=== PATIENT | male | born 1935 | race Caucasian/White ===

== ENCOUNTER 2022-01-15 16:07 | Emergency (ER) | payer MEDICARE, SELFPAY ==
--- NOTE | 2022-01-15 16:09 | ED.WOUNDLAC ---
HPI - Wound/Laceration General Chief Complaint: Wound/Laceration Stated Complaint: RED SPOT ON ARM Time Seen by Provider: 01/15/22 16:09 Source: patient Mode of arrival: ambulatory Limitations: no limitations History of Present Illness HPI narrative: Mr. Davila is a an 86-year-old male patient presenting to the clinic today with complaints of a wound to his left forearm. Patient he cut it on a door frame. Has redness surrounding the wound. Non-tender. Tetanus unk. Related Data Home Medications Medication Instructions Recorded Confirmed aspirin 81 mg tablet,delayed 81 mg PO DAILY 12/12/21 01/15/22 release atorvastatin 20 mg tablet 20 mg PO DAILY 12/12/21 01/15/22 doxazosin 2 mg tablet 2 mg PO DAILY 12/12/21 01/15/22 losartan 50 mg tablet 50 mg PO DAILY 12/12/21 01/15/22 Allergies Allergy/AdvReac Type Severity Reaction Status Date / Time No Known Allergies Allergy Verified 01/15/22 16:17 Review of Systems Review of Systems: Pertinent positives per HPI. Patient denies any fever, chills, rash, headache, visual changes, dizziness, cough, runny nose, sore throat, shortness of breath, chest pain, palpitations, nausea, vomiting, diarrhea, constipation, abdominal pain, or any urinary issues. PMFSH Past Medical History Medical History Anxiety Atrial fibrillation Constipation COPD (chronic obstructive pulmonary disease) Dementia Dizziness Encounter to establish care Fatigue Hyperlipidemia Hypertension Nocturia Seasonal allergies Weakness Surgical History Surgical History Hx of cholecystectomy Social History Social History Smoking status: Former smoker Alcohol intake: current Substance use: never Comments At the time of my signature, I reviewed and agree with the nursing past medical, surgical, social, and family history. There is no relevant family history pertinent to the patient complaint. Exam Narrative: General: Well-developed, well nourished, in no apparent distress Head: Normocephalic, atraumatic. Cardio: Regular rate and rhythm, s1 and s2 normal, no murmur appreciated. Resp: Clear to auscultation bilaterally, no rhonchi, rales, wheezing or rubs. Integumentary: [place], warm, and dry, names a skin tear to the left dorsal forearm with approximately 2 cm surrounding mild redness without induration. No erythema or drainage noted. Course Course Emergency Course: Portions of this record may have been created with voice recognition software. Level of Care: Express Care Visit Vital Signs Vital signs: Vital signs reviewed MDM - Wound/Laceration MDM Narrative Medical decision making narrative: At the time of visit patient is resting comfortably on the exam table. Has small dime size skin tear to the left lower forearm without induration, mild redness, no swelling or purulent discharge. I will give a prescription of mupirocin ointment to apply to prevent secondary infection. Tetanus shot was updated in the clinic. Supportive measures were discussed with the patient he voiced understanding of discharge instructions and agrees to treatment plan. Differential Diagnosis Differential diagnosis: Likely avulsion of skin and other (Skin tear, skin infection, wound infection) Discharge Plan Discharge Clinical Impression: Skin tear of forearm without complication Patient Disposition: Home, Self-Care Condition: Stable Instructions: Antibiotic Form, Mupirocin (On the skin), Skin Tear (ED) Additional Instructions: Discussed patient's elevated blood pressure at the time of visit and recommend follow-up with primary care physician to have this reevaluated within the next week if symptoms persist. Apply mupirocin as prescribed. Keep area clean and dry Tdap given in the clinic today Tylenol as nee
[2022-01-15 16:18] VITALS: BP 189/96; PULSE 62; RESP 16; TEMP 37.1; O2SAT 97
[2022-01-15] MEDS: TETANUS,DIPHTHERIA,AC PERTUSSIS ADULT (0.5 ML) BOOSTRIX IM (16:27)
[2022-01-15 16:43] VITALS: BP 195/87
== END 2022-01-15 16:43 | disposition home or self-care (01) ==
PROVIDERS: Emergency Provider Nurse Practitioner Family; PCP Nurse Practitioner Family
DX: S51.812A Laceration without foreign body of left forearm, initial encounter (principal); W45.8XXA Other foreign body or object entering through skin, initial encounter; Z23 Encounter for immunization; I48.91 Unspecified atrial fibrillation; J44.9 Chronic obstructive pulmonary disease, unspecified; F03.90 Unspecified dementia, unspecified severity, without behavioral disturbance, psychotic disturbance, mood disturbance, and anxiety; E78.5 Hyperlipidemia, unspecified; I10 Essential (primary) hypertension; Z87.891 Personal history of nicotine dependence; Z79.82 Long term (current) use of aspirin
CPT/HCPCS: 90471; 90715; 99213; G0463

== ENCOUNTER 2022-02-16 08:17 | Emergency (ER) | payer MEDICARE, SELFPAY ==
--- NOTE | 2022-02-16 08:28 | ED.SKABFB ---
HPI - Skin/Abscess/Foreign Bdy General Chief complaint: Wound/Laceration Stated complaint: L HAND INJURY Time Seen by Provider: 02/16/22 08:28 Source: patient, family and RN notes reviewed History of Present Illness HPI narrative: Patient is an 86-year-old male who presents the urgent care with his daughter with complaints of left hand swelling due to skin tears. Patient states that on Sunday he scraped it on a bench in his garage and the hand is became more painful with redness, swelling and fever. Patient does not believe in medications and has not taken anything [id number] for his redness, swelling or fevers. Patient is alert and oriented. Reports of some nausea but denies of any vomiting. Denies any chest pain. Patient is visibly chilled but otherwise no acute distress noted. Patient and daughter aware of the plan of care. Some parts of this dictation were generated by voice recognition software and may contain typographical and/or grammatical inaccuracies. Related Data Home Medications Medication Instructions Recorded Confirmed aspirin 81 mg tablet,delayed 81 mg PO DAILY 12/12/21 01/15/22 release losartan 50 mg tablet 50 mg PO DAILY 12/12/21 01/15/22 Allergies Allergy/AdvReac Type Severity Reaction Status Date / Time No Known Allergies Allergy Verified 01/15/22 16:17 Review of Systems Review of Systems: CONSTITUTIONAL: Denies fever, chills, or sweats. EYES: Denies visual changes, redness, or discharge. ENT: Denies rhinorrhea, congestion, sore throat, or otalgia. CARDIOVASCULAR: Denies chest pain, palpitations, or edema. RESPIRATORY: Denies cough or dyspnea. GASTROINTESTINAL: Denies abdominal pain, nausea, vomiting, or diarrhea. GENITOURINARY: Denies dysuria or hematuria. SKIN: Reports of skin tears to the top of the left hand with redness and swelling MUSCULOSKELETAL: Denies back pain, joint pain, or myalgia. NEUROLOGIC: Denies headache, numbness, or weakness. All other systems reviewed are negative, except as documented in HPI. [facility] [place] Past Medical History Medical History Anxiety Atrial fibrillation Constipation COPD (chronic obstructive pulmonary disease) Dementia Dizziness Encounter to establish care Fatigue Hyperlipidemia Hypertension Nocturia Seasonal allergies Weakness Surgical History Surgical History Hx of cholecystectomy Social History Social History Smoking status: Former smoker Alcohol intake: current Substance use: never Comments At the time of my signature, I reviewed and agree with the nursing past medical, surgical, social, and family history. There is no relevant family history pertinent to the patient complaint. Exam Narrative: GENERAL: This is a well-nourished, well-developed patient. Chilled HEAD: normocephalic, atraumatic. EYES: PERRL. Sclera clear/white. Vision is grossly intact. EARS: External ears normal NOSE: External nose normal with no obvious nasal discharge, nares without redness, no rhinorrhea. THROAT: Mucous membranes moist NECK: Neck supple SKIN: 1 x 2 cm skin tears to the dorsal aspect of the left hand with surrounding edema and erythema NEURO: awake, alert, and oriented to person, place and time. There were no obvious focal neurologic abnormalities. EXTREMITIES: Moderate edema and erythema to the knuckles of the left hand as well as the dorsal aspect with moderate tenderness. Range of motion to left upper extremity limited due to pain. Positive strong left radial pulse with capillary refill less than 2 seconds. Course Course Level of Care: Express Care Visit Vital Signs Vital signs: Vital Signs Temperature 99.6 F 02/16/22 08:31 Pulse Rate 79 02/16/22 08:31 Respiratory Rate 16 02/16/22 08:31 Blood Pressure 151/107 H 02/16/22 08:31 Pulse
[2022-02-16 08:31] VITALS: BP 151/107; PULSE 79; RESP 16; TEMP 37.6; O2SAT 97
== END 2022-02-16 09:25 | disposition short-term general hospital (02) ==
PROVIDERS: Emergency Provider Nurse Practitioner Family; PCP Nurse Practitioner Family
DX: L03.114 Cellulitis of left upper limb (principal); Z87.81 Personal history of (healed) traumatic fracture; Z87.891 Personal history of nicotine dependence; I48.91 Unspecified atrial fibrillation; J44.9 Chronic obstructive pulmonary disease, unspecified; E78.5 Hyperlipidemia, unspecified; I10 Essential (primary) hypertension; F03.90 Unspecified dementia, unspecified severity, without behavioral disturbance, psychotic disturbance, mood disturbance, and anxiety; Z79.82 Long term (current) use of aspirin
CPT/HCPCS: 99212; G0463

== ENCOUNTER 2022-02-16 09:44 | Emergency (ER) | payer MEDICARE, SELFPAY ==
[2022-02-16] VITALS (34 sets, daily range): BP systolic 144–192; BP diastolic 63–172; PULSE 69–100; RESP 15–34; TEMP 36.7–37.4; O2SAT 92–99
--- NOTE | ~2022-02-16 | XR_ITS ---
XR hand LT min 3V 02/16/2022 12:35 Indication: Left hand edema. Erythema. Possible cellulitis. Procedure: 4 views left hand Comparison: No prior studies for comparison. 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 Normal mineralization. 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 No acute fracture, subluxation or dislocation. No focal soft t issue abnormality. No foreign bodies. Impression: 1: No acute bone or joint abnormality. 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 Reviewed, dictated and finalized at location B. Impression: 1: No acute bone or joint abnormality. 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
--- NOTE | 2022-02-16 12:01 | ED.EXTPRO ---
HPI - Extremity Problem General Chief complaint: Extremity Problem,Nontraumatic <Kimberli Robb PA-C - Last Filed: 02/16/22 14:35> Stated complaint: L. hand cellulitis <BALAJI Baker Last Filed: 02/16/22 14:35> Time Seen by Provider: 02/16/22 11:09 <BALAJI Baker Last Filed: 02/16/22 14:35> Source: patient and family <Kimberli Robb PA-C - Last Filed: 02/16/22 14:35> Mode of arrival: ambulatory <BALAJI Baker Last Filed: 02/16/22 14:35> Limitations: no limitations <Kimberli Robb PA-C - Last Filed: 02/16/22 14:35> History of Present Illness HPI Narrative: This is a 86-year-old male that presents to the emergency department for left hand redness and swelling noted since last night. Reports he cut his hand 2 days ago while working in his garage. He did not want to come in to be evaluated. His daughter helped him clean the wound and bandage it. Last night they noticed that his hand started to become red and swollen. Denies fevers. <BALAJI Baker Last Filed: 02/16/22 14:35> Related Data Home medications: Home Medications Medication Instructions Recorded Confirmed aspirin 81 mg tablet,delayed 81 mg PO DAILY 12/12/21 01/15/22 release losartan 50 mg tablet 50 mg PO DAILY 12/12/21 01/15/22 <BALAJI Baker Last Filed: 02/16/22 14:35> Allergies/Adverse reactions: Allergies Allergy/AdvReac Type Severity Reaction Status Date / Time No Known Allergies Allergy Verified 02/16/22 11:28 <BALAJI Baker Last Filed: 02/16/22 14:35> Review of Systems Review of Systems: CONSTITUTIONAL: Denies fever NEUROLOGIC: Denies numbness <BALAJI Baker Last Filed: 02/16/22 14:35> All systems reviewed & are unremarkable except as noted in HPI and below <Kimberli Robb PA-C - Last Filed: 02/16/22 14:35> [facility] Past Medical History Medical History: Medical History Anxiety Atrial fibrillation Constipation COPD (chronic obstructive pulmonary disease) Dementia Dizziness Encounter to establish care Fatigue Hyperlipidemia Hypertension Nocturia Seasonal allergies Weakness <Kimberli Robb PA-C - Last Filed: 02/16/22 14:35> Surgical History Surgical History: Surgical History Hx of cholecystectomy <Kimberli Robb PA-C - Last Filed: 02/16/22 14:35> Social History Social History: Social History Smoking status: Former smoker Alcohol intake: current Substance use: never <Kimberli Robb PA-C - Last Filed: 02/16/22 14:35> Exam Narrative: GENERAL: Well-appearing, well-nourished, and in no acute distress. HEAD: Normocephalic, atraumatic. EYES: EOMI. EXTREMITIES: Normal range of motion. Mild edema about the left hand dorsal surface with overlying redness. Normal radial pulse. Normal sensation. No lymphangitic streaking SKIN: Warm, dry, no rash. NEURO: No focal deficits. Alert and oriented x3. PSYCH: Normal mood and affect <Kimberli Robb PA-C - Last Filed: 02/16/22 14:35> Course COUNTER SALES REPRESENTATIVE/PA Physician Supervision For this patient encounter, I reviewed the COUNTER SALES REPRESENTATIVE or PA documentation, treatment plan, and medical decision making <Rishi Coy MD - Last Filed: 02/16/22 17:26> Vital Signs Vital signs: Vital Signs Temperature 99.4 F 02/16/22 09:59 Pulse Rate 92 02/16/22 09:59 Respiratory Rate 18 02/16/22 09:59 Blood Pressure 186/64 H 02/16/22 09:59 Pulse Oximetry 95 02/16/22 09:59 Oxygen Delivery Room Air 02/16/22 09:59 Temperature 98.0 F 02/16/22 11:19 Pulse Rate 74 02/16/22 14:50 Respiratory Rate 29 H 02/16/22 14:50 Blood Pressure 160/70 H 02/16/22 14:50 Pulse Oximetry 95 02/16/22 14:02 Oxygen Delivery Room Air 02/16/22 09:59 <Jonathan
[2022-02-16 12:35] LABS: Basophils Percent Auto 0.3 % (0.2-1.2); Eosinophils Absolute Auto 0.1 K/mm3 (0-0.3); Eosinophils Percent Auto 0.7 % (0-4.4); Hematocrit 43.8 % (42.0-52.0); Hemoglobin 14.9 g/dL (14.0-18.0); Immature Granulocyte Absolute 0.05 K/mm3 (0.00-0.031); Immature Granulocyte Percent A 0.4 % (0-0.5); Lymphocytes Absolute Auto 0.47 K/mm3 (0.9-3.2); Lymphocytes Percent Auto 3.4 % (18.3-44.2); Mean Corpuscular Hemoglobin 32.5 pg (26-34); Mean Corpuscular Volume 95.6 fl (80-100); Mean Platelet Volume 10.3 fl (7.4-10.4); Monocytes Absolute Auto 0.8 K/mm3 (0.1-0.6); Monocytes Percent Auto 6.1 % (2.6-8.5); Neutrophils Absolute Auto 12.2 K/mm3 (1.3-6.7); Neutrophils Percent Auto 89.1 % (45.5-73.1); Platelet Count Result 178 k/mm3 (150-375); Red Blood Count 4.58 M/mm3 (4.6-6.20); Red Cell Distribution Width 13.2 % (11.5-14.5); White Blood Count 13.7 K/mm3 (4.5-10.0)
[2022-02-16 12:44] LABS: Anion Gap 11 mmol/L (8-16); Blood Urea Nitrogen 19 mg/dL (9-20); Calcium 9.2 mg/dL (8.4-10.2); Carbon Dioxide 23 mmol/L (22-30); Chloride 101 mmol/L (98-107); Estimated CRCL calculation 53 ml/min; Estimated Glomerular Filt Rate > 60; Glucose 120 mg/dL (65-110); Potassium 3.7 mmol/L (3.4-5.0); Sodium 135 mmol/L (137-145)
[2022-02-16 13:52] LABS: Erythrocyte Sedimentation Rate 12 mm/hr (0-20)
== END 2022-02-16 15:00 | disposition home or self-care (01) ==
PROVIDERS: Physician Assistant; Emergency Provider Emergency Medicine; PCP Nurse Practitioner Family
DX: L03.114 Cellulitis of left upper limb (principal); I48.91 Unspecified atrial fibrillation; J44.9 Chronic obstructive pulmonary disease, unspecified; F03.90 Unspecified dementia, unspecified severity, without behavioral disturbance, psychotic disturbance, mood disturbance, and anxiety; E78.5 Hyperlipidemia, unspecified; I10 Essential (primary) hypertension; Z87.891 Personal history of nicotine dependence; M18.9 Osteoarthritis of first carpometacarpal joint, unspecified
CPT/HCPCS: 36415; 73130; 80048; 85025; 85652; 86140; 87040; 96365; 99284; J0696

== ENCOUNTER 2022-02-16 19:34 | Inpatient (IN) | payer MEDICARE, SELFPAY ==
[2022-02-16] VITALS (12 sets, daily range): BP systolic 122–137; BP diastolic 49–68; PULSE 67–86; RESP 18–29; TEMP 36.4–38; O2SAT 93–97; BMI 24.5
--- NOTE | ~2022-02-16 | XR_ITS ---
EXAMINATION: XR chest 1V portable DATE: 02/16/2022 21:31 INDICATION: Transient alteration of awareness. TECHNIQUE: A single frontal view of the chest was obtained. COMPARISON: None. FINDINGS: There are lucencies in interstitial opacities in the lungs, consistent with emphysema. A ca lcified left lung nodule is consistent with old granulomatous disease. No pleural effusion or pneumot horax. The heart size is normal. IMPRESSION: 1. Emphysema. Reviewed, dictated and finalized at location A. IMPRESSION: 1. Emphysema.
--- NOTE | ~2022-02-16 | CT_ITS ---
EXAMINATION: CT brain wo con DATE: 02/16/2022 21:26 INDICATION: Confusion. Altered mental status. TECHNIQUE: Computed tomography (CT) of the head was performed without intravenous contrast. The mA wa s adjusted according to patient size. Iterative reconstruction technique was employed. The dose-lengt h product was 681.00 mGy-cm. COMPARISON: None FINDINGS: There are scattered areas of low attenuation in the cerebral white matter. There is no intr acranial hemorrhage, acute infarction, or abnormal intracranial mass lesion. The ventricles are charanjit l in size. There are likely changes of ocular lens replacement surgeries. There is mucosal thickening in the paranasal sinuses. There is a small right mastoid effusion. IMPRESSION: 1. Moderate nonspecific cerebral white matter disease, which likely represents chronic small vessel i schemic disease. Reviewed, dictated and finalized at location A. IMPRESSION: 1. Moderate nonspecific cerebral white matter disease, which likely represents chronic small vessel ischemic disease.
[2022-02-16 20:19] LABS: Basophils Percent Auto 0.2 % (0.2-1.2); Hematocrit 41.7 % (42.0-52.0); Hemoglobin 14.2 g/dL (14.0-18.0); Immature Granulocyte Absolute 0.07 K/mm3 (0.00-0.031); Immature Granulocyte Percent A 0.5 % (0-0.5); Lymphocytes Absolute Auto 0.81 K/mm3 (0.9-3.2); Lymphocytes Percent Auto 5.6 % (18.3-44.2); Mean Corpuscular HGB Conc 34.1 g/dl (32-36); Mean Corpuscular Volume 93.9 fl (80-100); Mean Platelet Volume 10.3 fl (7.4-10.4); Monocytes Absolute Auto 1.1 K/mm3 (0.1-0.6); Monocytes Percent Auto 7.5 % (2.6-8.5); Neutrophils Absolute Auto 12.5 K/mm3 (1.3-6.7); Neutrophils Percent Auto 86.2 % (45.5-73.1); Platelet Count Result 162 k/mm3 (150-375); Red Blood Count 4.44 M/mm3 (4.6-6.20); Red Cell Distribution Width 13.2 % (11.5-14.5); White Blood Count 14.5 K/mm3 (4.5-10.0)
[2022-02-16] MEDS: SODIUM CHLORIDE 0.9% IV 1,000 ML 999 ML IV CONT (20:20)
[2022-02-16 20:29] LABS: INR 1.2; Prothrombin Time 14.5 Seconds (11.1-14.7)
[2022-02-16 20:30] LABS: Partial Thromboplastin Time 27.6 SECONDS (22.3-36.8)
[2022-02-16 20:31] LABS: Alanine Aminotransferase 14 U/L (6-50); Albumin Level 3.9 g/dL (3.5-5.1); Alkaline Phosphatase 84 U/L (38-126); Anion Gap 12 mmol/L (8-16); Aspartate Amino Transferase 21 U/L (17-59); Blood Urea Nitrogen 23 mg/dL (9-20); Calcium 8.8 mg/dL (8.4-10.2); Carbon Dioxide 22 mmol/L (22-30); Chloride 99 mmol/L (98-107); Estimated CRCL calculation 43 ml/min; Estimated Glomerular Filt Rate > 60; Glucose 136 mg/dL (65-110); Potassium 3.3 mmol/L (3.4-5.0); Sodium 133 mmol/L (137-145)
[2022-02-16 20:32] LABS: Lactic Acid Reflex 1.1 mmol/L (0.7-2.0)
[2022-02-16 20:55] LABS: SARS-CoV-2 RNA PCR Negative
--- NOTE | 2022-02-16 21:00 | ED.WEAKNESS ---
HPI - Weakness General Chief complaint: Weakness Stated complaint: weakness, fever Time Seen by Provider: 02/16/22 19:51 Source: RN notes reviewed History of Present Illness HPI Narrative: Patient presents emergency department from home for weakness. Patient was seen in the emergency department earlier today for left hand cellulitis. The patient states that 2 days ago he has been working on his garage when he scratched his left hand states yesterday began to notice swelling in his left hand and redness of the left hand he had come to the emergency department that time been evaluated he been given Rocephin and discharged with Keflex patient got home temperature increased and the patient been known to be mildly confused and more weak that time the family brought in the patient to the emergency department for further evaluation patient is currently awake and alert notes pain in his left hand but denies any other complaints he denies any coughing abdominal pain nausea vomiting states he not taking Tylenol at home Related Data Home Medications Medication Instructions Recorded Confirmed aspirin 81 mg tablet,delayed 81 mg PO DAILY 12/12/21 01/15/22 release losartan 50 mg tablet 50 mg PO DAILY 12/12/21 01/15/22 Allergies Allergy/AdvReac Type Severity Reaction Status Date / Time No Known Allergies Allergy Verified 02/16/22 11:28 Review of Systems Review of Systems: Gen.: Reports fever Eyes: Denies eye pain or visual change ENT: Denies congestion Respiratory: Denies shortness of breath or cough CV: Denies chest pain or palpitations GI: Denies abdominal pain nausea, emesis or diarrhea Musculoskeletal: Denies back pain or muscle pain Neuro: reports generalized weakness Skin: Reports left hand cellulitis Except as documented, all other systems reviewed and negative [facility] Past Medical History Medical History Anxiety Atrial fibrillation Constipation COPD (chronic obstructive pulmonary disease) Dementia Dizziness Encounter to establish care Fatigue Hyperlipidemia Hypertension Nocturia Seasonal allergies Weakness Surgical History Surgical History Hx of cholecystectomy Social History Social History Smoking status: Former smoker Alcohol intake: current Substance use: never Exam Narrative: APPEARANCE: No acute distress, nontoxic, resting in bed EYES: EOMI HEENT: Normocephalic, atraumatic, OMM RESPIRATORY: No respiratory distress Clear to auscultation bilaterally with no rhonchi wheezing or rales. CARDIOVASCULAR: Regular rate and rhythm without murmurs rubs or gallops. ABDOMINAL: Soft, nontender, nondistended, no rebound or guarding MUSCULOSKELETAl: Moves all extremities. No clubbing, cyanosis or edema. NEURO: Awake and alert x 1. Following commands, speech normal, no focal deficits SKIN:: Warm, dry. Left hand with skin tears over the dorsal hand with surrounding erythema of the hand into the forearm with swelling of the dorsal hand radial pulse 2+ neurovascular intact PSYCHIATRIC: Normal affect/mood, Course Course Emergency Course: Reviewed old records. Patient had hand x-ray earlier that showed no acute process Discussed with pharmacy discussed patient's Rocephin dose earlier this had patient to be started on Ancef at this time Discussed Dr. Braden presentation work-up agrees with admission Discussed with patient and family results of workup and diagnosis. Discussed need for admission. Patient and family understand and agree to current treatment plan Vital Signs Vital signs: Vital Signs Temperature 100.4 F H 02/16/22 19:36 Pulse Rate 82 02/16/22 19:36 Respiratory Rate 18 02/16/22 19:36 Blood Pressure 122/64 02/16/22 19:36 Pulse Oximetry 93 02/16/22 19:36 Oxygen Delivery Room Air 02/16/22 19:36 Temperatu
[2022-02-16] MEDS: POTASSIUM CHLORIDE 20 MEQ TABLET PO (22:01)
--- NOTE | 2022-02-16 22:20 | ADMGEN ---
This patient, Noé Davila, was admitted to Medical Room 342-01. Patient/family oriented to hospital policies and general routines including ID bracelet, bed and alarms, visiting hours, pain management, procedures, bathroom and other care routines, personal items, smoking policy, room service/diet, and visiting hours. Information on how to activate the Rapid Response Team has been discussed. Patient/Family are encouraged to report perceived risks to care and to ask questions if they do not understand what they are told or what they should do.
[2022-02-16] MEDS: SODIUM CHLORIDE 0.9% IV 1,000 ML 80 ML IV CONT (22:34)
--- NOTE | 2022-02-16 23:55 | PM.IMHP ---
H&P: HPI History of Present Illness Date/Time: 02/16/22 23:55 Chief Complaint: Left hand cellulitis Narrative: Greater than 30 minutes spent reviewing chart, evaluating, treating, counseling patient. Anticipate less than 48 hour admission, will admit under observation. 86-year-old male past medical history of anxiety, dementia, atrial fibrillation not on anticoagulation, COPD, BPH, HTN/HLD. Presents with left hand cellulitis. States 2 days ago he had been working in his garage and scratched his hand on the bench in his garage. He noticed some mild swelling at that time and come to the emergency room to be evaluated earlier today. Patient apparently does not believe in medications and refused to take p.o. antibiotics. ED physician tried to admit him, however patient had refused at that time. Per family patient had become more confused, more weak and began to have a fever. This when he was brought back into the emergency room. Patient denies any pain, fevers/chills, shortness of breath, chest pain, nausea/vomiting, diarrhea/constipation, dysuria/hematuria. In ED, patient febrile to 100.4? F. other vital stable. Labs remarkable for WBC 14.5, K 3.3. Patient given dose of Ancef, potassium 20 mEq, normal saline bolus, Tylenol. Review of Systems Review of Systems: Ten point ROS reviewed, negative unless otherwise specified per HPI PMFSH Past Medical History Medical History Anxiety Atrial fibrillation Constipation COPD (chronic obstructive pulmonary disease) Dementia Dizziness Encounter to establish care Fatigue Hyperlipidemia Hypertension Nocturia Seasonal allergies Weakness Surgical History Surgical History Hx of cholecystectomy Social History Social History Smoking status: Former smoker Alcohol intake: current Substance use: never Meds Home Medications and Allergies Home Medications Medication Instructions Recorded Confirmed Type aspirin 81 mg tablet,delayed 81 mg PO DAILY 12/12/21 02/16/22 History release losartan 50 mg tablet 50 mg PO DAILY 12/12/21 02/16/22 History atorvastatin 20 mg tablet 20 mg PO DAILY #30 tabs 01/31/22 02/16/22 Rx doxazosin 2 mg tablet 2 mg PO DAILY #30 tabs 01/31/22 02/16/22 Rx fwrnerad-yck-gumhc acid 300 1 tablet PO DAILY 02/16/22 02/16/22 History mcg-lycopene 600 mcg-lutein 300 mcg tablet (Men 50 Plus Multivitamin) Allergies Allergy/AdvReac Type Severity Reaction Status Date / Time No Known Allergies Allergy Verified 02/16/22 22:51 Vital Signs Vital Signs - 24 hr 02/16/22 19:36 02/16/22 19:59 02/16/22 20:00 Temperature 100.4 F H Pulse Rate 82 78 70 Respiratory Rate 18 29 H 23 H Blood Pressure 122/64 137/57 L Pulse Oximetry 93 Oxygen Delivery Room Air 02/16/22 20:15 02/16/22 20:30 02/16/22 20:31 Temperature Pulse Rate 67 70 69 Respiratory Rate 23 H 26 H 23 H Blood Pressure 135/59 L Pulse Oximetry Oxygen Delivery 02/16/22 20:45 02/16/22 21:02 02/16/22 21:29 Temperature Pulse Rate 71 70 86 Respiratory Rate 21 H 22 H 29 H Blood Pressure Pulse Oximetry Oxygen Delivery 02/16/22 21:30 02/16/22 22:36 02/16/22 23:12 Temperature 97.5 F L 98.1 F Pulse Rate 69 68 68 Respiratory Rate 21 H 20 Blood Pressure 137/68 127/49 L Pulse Oximetry 97 94 Oxygen Delivery Exam Const: General: comfortable and no acute distress Eyes: General: appearance normal, both eyes and all related structures Sclera: sclerae normal Resp: Effort & Inspection: normal respiratory effort Auscultation: wheezes Cardio: Rhythm: abnormal rhythm Other: No gallop, no murmur GI: GI Palp: Yes Soft to palpation Auscultation: normal bowel sounds Other: Nontender, nondistended Skin: Lesions: lesion noted (Abrasion noted on dorsum of l
[2022-02-17 06:00] VITALS: BP 115/53; PULSE 69; RESP 18; TEMP 36.6; O2SAT 97
[2022-02-17 06:02] LABS: Anion Gap 6 mmol/L (8-16); Blood Urea Nitrogen 25 mg/dL (9-20); Calcium 7.9 mg/dL (8.4-10.2); Carbon Dioxide 26 mmol/L (22-30); Chloride 102 mmol/L (98-107); Estimated CRCL calculation 50 ml/min; Estimated Glomerular Filt Rate > 60; Glucose 133 mg/dL (65-110); Potassium 3.7 mmol/L (3.4-5.0); Sodium 134 mmol/L (137-145)
[2022-02-17 06:07] LABS: Basophils Absolute Auto 0.1 K/mm3 (0.0-0.1); Basophils Percent Auto 0.4 % (0.2-1.2); Eosinophils Absolute Auto 0.1 K/mm3 (0-0.3); Eosinophils Percent Auto 0.9 % (0-4.4); Hematocrit 39.4 % (42.0-52.0); Hemoglobin 13.1 g/dL (14.0-18.0); Immature Granulocyte Absolute 0.09 K/mm3 (0.00-0.031); Immature Granulocyte Percent A 0.8 % (0-0.5); Lymphocytes Percent Auto 10.2 % (18.3-44.2); Mean Corpuscular HGB Conc 33.2 g/dl (32-36); Mean Corpuscular Volume 96.3 fl (80-100); Mean Platelet Volume 10.5 fl (7.4-10.4); Monocytes Absolute Auto 1.1 K/mm3 (0.1-0.6); Neutrophils Absolute Auto 9.3 K/mm3 (1.3-6.7); Neutrophils Percent Auto 78.7 % (45.5-73.1); Platelet Count Result 150 k/mm3 (150-375); Red Blood Count 4.09 M/mm3 (4.6-6.20); Red Cell Distribution Width 13.3 % (11.5-14.5); White Blood Count 11.8 K/mm3 (4.5-10.0)
[2022-02-17 06:33] LABS: Appearance Urine Clear (Clear); Bilirubin Urine Negative (Negative); Blood Urine Negative (Negative); Color Urine Yellow (Yellow); Glucose Urine UA Negative (Negative); Ketones Urine Trace mg/dL (Negative); Leukocyte Esterase Ur Negative LEU/UL (Negative); Nitrate Urine Negative (Negative); Protein Urine Trace mg/dL (Negative); Specific Grav Ur 1.025 (1.001-1.035)
[2022-02-17 06:42] LABS: Mucus Urine Rare /lpf; RBC Urine 0-2 /hpf (0-2); WBC Urine 0-3 /hpf
[2022-02-17 06:48] LABS: Add Urine Microscopic? YES
--- NOTE | 2022-02-17 10:17 | PC.NURSE ---
Per MD request, this nurse asked the patient if we could give him a tetanus booster. Pt states that he received one a few weeks ago after he skinned open his arm. Does not think he needs one at this time.
--- NOTE | 2022-02-17 10:40 | PM.IMPN ---
Progress Note: A&P Assessment and Plan (1) Cellulitis of left hand: Code(s): L03.114 - Cellulitis of left upper limb Status: Acute Assessment and Plan: Continue Ancef, blood cultures pending. Tylenol p.r.n. for pain (2) Atrial fibrillation: Code(s): I48.91 - Unspecified atrial fibrillation Status: Acute Assessment and Plan: Patient is not on any rate control medications or anticoagulation (3) Hypertension: Code(s): I10 - Essential (primary) hypertension Status: Acute Assessment and Plan: Continue losartan (4) Nocturia: Code(s): R35.1 - Nocturia Status: Acute Assessment and Plan: Continue doxazosin (5) Hyperlipidemia: Code(s): E78.5 - Hyperlipidemia, unspecified Status: Acute Assessment and Plan: Continue Lipitor Subjective Date/time seen: 02/17/22 10:40 No c/o pain. No fever. Tolerating diet. RN will offer Tdap. Review of Systems Review of Systems: All systems reviewed & are unremarkable except as noted in HPI and below Exam Const: General: comfortable and no acute distress Eyes: General: appearance normal, both eyes and all related structures Sclera: sclerae normal Resp: Effort & Inspection: normal respiratory effort Auscultation: wheezes Cardio: Rhythm: abnormal rhythm Other: No gallop, no murmur GI: Auscultation: normal bowel sounds Other: Nontender, nondistended Skin: Lesions: lesion noted (Abrasion noted on dorsum of left hand) Other: Left hand erythema and swelling noted Neuro: Speech: normal speech Sensory Exam: normal sensation Psych: Affect: normal affect Other: A&O x1 Objective Data Vital Signs Vital Signs: Vital Signs - 24 hr 02/16/22 19:36 02/16/22 19:59 02/16/22 20:00 Temperature 100.4 F H Pulse Rate 82 78 70 Respiratory Rate 18 29 H 23 H Blood Pressure 122/64 137/57 L Pulse Oximetry 93 Oxygen Delivery Room Air 02/16/22 20:15 02/16/22 20:30 02/16/22 20:31 Temperature Pulse Rate 67 70 69 Respiratory Rate 23 H 26 H 23 H Blood Pressure 135/59 L Pulse Oximetry Oxygen Delivery 02/16/22 20:45 02/16/22 21:02 02/16/22 21:29 Temperature Pulse Rate 71 70 86 Respiratory Rate 21 H 22 H 29 H Blood Pressure Pulse Oximetry Oxygen Delivery 02/16/22 21:30 02/16/22 22:36 02/16/22 23:12 Temperature 97.5 F L 98.1 F Pulse Rate 69 68 68 Respiratory Rate 21 H 20 Blood Pressure 137/68 127/49 L Pulse Oximetry 97 94 Oxygen Delivery 02/17/22 06:00 Temperature 98 F Pulse Rate 69 Respiratory Rate 18 Blood Pressure 115/53 L Pulse Oximetry 97 Oxygen Delivery Intake/Output Intake/Output: Intake & Output 02/14/22 02/15/22 02/16/22 02/17/22 23:59 23:59 23:59 23:59 Intake Total 1150 290 Output Total 275 Balance 1150 15 Meds/Results Medications: Active Medications Generic Name Dose Route Start Last Admin Trade Name Freq PRN Reason Stop Dose Admin Acetaminophen 650 mg 02/16/22 23:48 Acetaminophen 325 Mg Tablet PO Q4H PRN Mild Pain (1-3) or Fever Albuterol 2.5 mg 02/17/22 00:03 Albuterol Sulfate Neb 2.5 Mg/3 Ml Inh INHALATION Q6HRT PRN Wheezing Aspirin 81 mg 02/17/22 21:00 Aspirin 81 Mg Enteric Tablet PO HS CONNIE Atorvastatin Calcium 20 mg 02/17/22 21:00 Atorvastatin 20 Mg Tablet PO HS CONNIE Doxazosin Mesylate 2 mg 02/17/22 21:00 Doxazosin Mesylate 2 Mg Tablet PO HS CONNIE Enoxaparin Sodium 40 mg 02/17/22 09:00 Enoxaparin 40 Mg/0.4 Ml Syringe SUB-Q DAILY CONNIE Cefazolin Sodium 1 gm in 50 mls @ 100 mls/hr 02/17/22 06:00 02/17/22 06:50 Ancef 1 Gm/D5w 50 Ml Pm IVPB 02/22/22 05:59 Infused Q8H CONNIE Infusion Sodium Chloride 1,000 mls @ 80 mls/hr 02/16/22 21:05 02/16/22 22:34 Normal Saline Iv IV CONT 80 mls/hr .[id number] CONNIE Administration Losartan Potassium 50 mg 02/17/22 21:00 Losartan Potassium 50
[2022-02-17 12:00] VITALS: O2SAT 94
[2022-02-17] MEDS: ENOXAPARIN 40 MG/0.4 ML SYRINGE SUB-Q (12:11)
[2022-02-17 13:30] VITALS: BP 132/62; PULSE 112; RESP 18; TEMP 36.5; O2SAT 94
[2022-02-17] MEDS: LOSARTAN POTASSIUM 50 MG TABLET PO (20:21)
[2022-02-17] MEDS: ATORVASTATIN 20 MG TABLET PO (20:22)
[2022-02-17] MEDS: DOXAZOSIN MESYLATE 2 MG TABLET PO (20:22)
[2022-02-17] MEDS: ASPIRIN 81 MG ENTERIC TABLET PO (20:22)
[2022-02-17 21:16] VITALS: BP 141/52; PULSE 54; RESP 16; TEMP 36.3; O2SAT 93
[2022-02-18 05:19] VITALS: BP 155/79; PULSE 79; RESP 16; TEMP 36.2; O2SAT 98
[2022-02-18 08:00] VITALS: PULSE 79; RESP 16; O2SAT 98
[2022-02-18 08:36] LABS: Hematocrit 40.9 % (42.0-52.0); Hemoglobin 13.7 g/dL (14.0-18.0); Mean Corpuscular HGB Conc 33.5 g/dl (32-36); Mean Corpuscular Volume 95.6 fl (80-100); Mean Platelet Volume 10.7 fl (7.4-10.4); Platelet Count Result 155 k/mm3 (150-375); Red Blood Count 4.28 M/mm3 (4.6-6.20); Red Cell Distribution Width 13.3 % (11.5-14.5)
[2022-02-18] MEDS: ENOXAPARIN 40 MG/0.4 ML SYRINGE SUB-Q (08:39)
[2022-02-18 08:48] LABS: Anion Gap 9 mmol/L (8-16); Blood Urea Nitrogen 19 mg/dL (9-20); Calcium 8.2 mg/dL (8.4-10.2); Carbon Dioxide 23 mmol/L (22-30); Chloride 102 mmol/L (98-107); Estimated CRCL calculation 55 ml/min; Estimated Glomerular Filt Rate > 60; Glucose 114 mg/dL (65-110); Potassium 3.6 mmol/L (3.4-5.0); Sodium 134 mmol/L (137-145)
--- NOTE | 2022-02-18 09:21 | PM.IMPN ---
Progress Note: A&P Assessment and Plan (1) Cellulitis of left hand: Code(s): L03.114 - Cellulitis of left upper limb Status: Acute Assessment and Plan: Continue Ancef, blood cultures pending. Tylenol p.r.n. for pain (2) Atrial fibrillation: Code(s): I48.91 - Unspecified atrial fibrillation Status: Acute Assessment and Plan: Patient is not on any rate control medications or anticoagulation (3) Hypertension: Code(s): I10 - Essential (primary) hypertension Status: Acute Assessment and Plan: Continue losartan (4) Nocturia: Code(s): R35.1 - Nocturia Status: Acute Assessment and Plan: Continue doxazosin (5) Hyperlipidemia: Code(s): E78.5 - Hyperlipidemia, unspecified Status: Acute Assessment and Plan: Continue Lipitor (6) Hyperglycemia: Code(s): R73.9 - Hyperglycemia, unspecified Status: Acute Assessment and Plan: A1c pending (7) Cognitive impairment: Code(s): R41.89 - Other symptoms and signs involving cognitive functions and awareness Status: Acute Assessment and Plan: Present for at least 2 years D/w daughter and no targeted evaluation has been performed but she will discuss with his pcp at hospital f/u visit CT brain this admission was c/w cerebral atherosclerosis Consider AD, PD, CVD as etiology (8) Tremor: Code(s): R25.1 - Tremor, unspecified Status: Acute Assessment and Plan: Chronic Upper extremity 02/18 most prominent Right Hand at rest Consider PD Daughter will d/w PCP and next visit Subjective Date/time seen: 02/18/22 09:21 Mild intermitent pain in left hand. Denied other pain. Only other c/o is constipation. Review of Systems Review of Systems: All systems reviewed & are unremarkable except as noted in HPI and below Exam Const: General: comfortable and no acute distress Eyes: General: appearance normal, both eyes and all related structures Sclera: sclerae normal Resp: Effort & Inspection: normal respiratory effort Auscultation: wheezes Cardio: Rhythm: abnormal rhythm Other: No gallop, no murmur GI: Auscultation: normal bowel sounds Other: Nontender, nondistended Skin: Lesions: lesion noted (Abrasion noted on dorsum of left hand) Other: Left hand erythema and swelling noted Neuro: Speech: normal speech Sensory Exam: normal sensation Psych: Affect: normal affect Other: A&O x1, but very pleasant and cooperative. Objective Data Vital Signs Vital Signs: Vital Signs - 24 hr 02/17/22 12:00 02/17/22 13:30 02/17/22 21:16 Temperature 97.7 F 97.3 F L Pulse Rate 112 H 54 L Respiratory Rate 18 16 Blood Pressure 132/62 141/52 H Pulse Oximetry 94 94 93 Oxygen Delivery Room Air 02/18/22 05:19 Temperature 97.2 F L Pulse Rate 79 Respiratory Rate 16 Blood Pressure 155/79 H Pulse Oximetry 98 Oxygen Delivery Intake/Output Intake/Output: Intake & Output 02/15/22 02/16/22 02/17/22 02/18/22 23:59 23:59 23:59 23:59 Intake Total 1150 1360 250 Output Total 275 Balance 1150 1085 250 Meds/Results Medications: Active Medications Generic Name Dose Route Start Last Admin Trade Name Freq PRN Reason Stop Dose Admin Acetaminophen 650 mg 02/16/22 23:48 Acetaminophen 325 Mg Tablet PO Q4H PRN Mild Pain (1-3) or Fever Albuterol 2.5 mg 02/17/22 00:03 Albuterol Sulfate Neb 2.5 Mg/3 Ml Inh INHALATION Q6HRT PRN Wheezing Aspirin 81 mg 02/17/22 21:00 02/17/22 20:22 Aspirin 81 Mg Enteric Tablet PO 81 mg HS CONNIE Administration Atorvastatin Calcium 20 mg 02/17/22 21:00 02/17/22 20:22 Atorvastatin 20 Mg Tablet PO 20 mg HS CONNIE Administration Doxazosin Mesylate 2 mg 02/17/22 21:00 02/17/22 20:22 Doxazosin Mesylate 2 Mg Tablet PO 2 mg HS CONNIE Administration Enoxaparin Sodium 40 mg 02/17/22 09:00 02/18/22 08:39 Enoxaparin 40 Mg/
[2022-02-18 10:05] LABS: Hemoglobin A1C 5.6 % (<5.7)
[2022-02-18] MEDS: polyethylene glycoL 3350 17 GM POWD.PACK PO (12:30)
[2022-02-18 13:55] VITALS: BP 119/56; PULSE 71; RESP 18; TEMP 36.4; O2SAT 97
[2022-02-18] MEDS: DOXAZOSIN MESYLATE 2 MG TABLET PO (20:59)
[2022-02-18] MEDS: ASPIRIN 81 MG ENTERIC TABLET PO (20:59)
[2022-02-18] MEDS: LOSARTAN POTASSIUM 50 MG TABLET PO (20:59)
[2022-02-18] MEDS: ATORVASTATIN 20 MG TABLET PO (20:59)
[2022-02-18 21:03] VITALS: BP 146/62; PULSE 70; RESP 16; TEMP 36.4; O2SAT 97
[2022-02-19 05:22] VITALS: BP 152/74; PULSE 58; RESP 18; TEMP 36.6; O2SAT 95
[2022-02-19 06:24] LABS: Hematocrit 39.2 % (42.0-52.0); Hemoglobin 13.3 g/dL (14.0-18.0); Mean Corpuscular HGB Conc 33.9 g/dl (32-36); Mean Corpuscular Hemoglobin 32.1 pg (26-34); Mean Corpuscular Volume 94.7 fl (80-100); Mean Platelet Volume 10.6 fl (7.4-10.4); Platelet Count Result 175 k/mm3 (150-375); Red Blood Count 4.14 M/mm3 (4.6-6.20); Red Cell Distribution Width 13.2 % (11.5-14.5); White Blood Count 4.7 K/mm3 (4.5-10.0)
[2022-02-19 06:37] LABS: Anion Gap 6 mmol/L (8-16); Blood Urea Nitrogen 17 mg/dL (9-20); Calcium 8.3 mg/dL (8.4-10.2); Carbon Dioxide 27 mmol/L (22-30); Chloride 102 mmol/L (98-107); Estimated CRCL calculation 61 ml/min; Estimated Glomerular Filt Rate > 60; Glucose 118 mg/dL (65-110); Potassium 3.7 mmol/L (3.4-5.0); Sodium 135 mmol/L (137-145)
[2022-02-19] MEDS: ENOXAPARIN 40 MG/0.4 ML SYRINGE SUB-Q (08:49)
[2022-02-19] MEDS: polyethylene glycoL 3350 17 GM POWD.PACK PO (08:49)
--- NOTE | 2022-02-19 12:46 | PM.DS ---
DS: Admitting Diagnosis Discharge Date 02/19/22 1436 Admitting Diagnosis Left hand cellulitis DS: Discharge Diagnosis Discharge Diagnosis (1) Sepsis: Code(s): A41.9 - Sepsis, unspecified organism Status: Acute (2) Cellulitis of left hand: Code(s): L03.114 - Cellulitis of left upper limb Status: Acute (3) Hypertension: Code(s): I10 - Essential (primary) hypertension Status: Chronic (4) Hyperglycemia: Code(s): R73.9 - Hyperglycemia, unspecified Status: Acute (5) Cognitive impairment: Code(s): R41.89 - Other symptoms and signs involving cognitive functions and awareness Status: Chronic (6) Tremor: Code(s): R25.1 - Tremor, unspecified Status: Chronic DS: Summary Hospital Course Reason for hospitalization: Left hand swelling Hospital Course: Noé Mota is an 86-year-old male with past medical history of anxiety, dementia, atrial fibrillation, not on anticoagulation, COPD, BPH, HTN, and HLD.? He presented to the ED for evaluation of left hand redness and swelling, concerning for cellulitis.?He reported 2 days prior to admission, he had been working in his garage and scratched his hand on the bench.? He noticed some mild swelling at that time and came to the emergency room to be evaluated earlier in the day.? The patient apparently does not believe in medications and refused to take p.o. antibiotics.? The ED physician tried to admit him, however, the patient had refused at that time.? Per family, patient had become more confused, more weak and began to have a fever.? He was brought back into the emergency room.? He denied pain, fevers/chills, shortness of breath, chest pain, nausea/vomiting, diarrhea/constipation, dysuria/hematuria. In ED, patient was febrile to 100.4? F. but other vital stable.? Labs were remarkable for WBC 14.5, sodium 133, K 3.3, glucose 136, Tbili 2.0 and CRP 2.0.? He was given a dose of Ancef, potassium 20 mEq, normal saline bolus, and Tylenol. Patient was referred for IV antibiotic therapy of left hand cellulitis. Given his mildly elevated temp, RR>20, WBC>12 and presumed infection, he met sepsis criteria. He was treated with Ancef 1 gram Q8 hours, NS maintenance fluids, and PRN acetaminophen. Leukocytosis resolved and electrolytes were stable. A1c was 5.6%. Blood cultures were negative x2. Left hand cultures was without growth, however, the patient's left hand swelling, redness and pain significantly improved on IV antibiotics. Of note, the patient reported striking his left hand on the bedside table during his hospital stay and developed 2 small shallow wounds/skin tears with yellow slough noted on the wound beds. He was transitioned to Keflex 500 mg Q6 hours to complete 7 day course, as well as topical mupirocin 2% ointment. He was discharged home with home health. Status at Discharge Cognitive/behavioral status at discharge: AAOx2-3. Forgetful. Cooperative. Functional status at discharge: independent ambulation Overall status at discharge: patient is back to baseline Time Spent with Patient Time attestation: Total time spent providing and/or coordinating discharge services: Time spent: Less than 30 minutes Exam Narrative: General:?No acute distress. Sitting at the side of the bed.? HEENT:?Pupils equal and round. EOM intact. Conjunctiva anicteric. Mucous membranes dry. Neck:??No JVD. Respiratory:?Lungs are clear to auscultation bilaterally, diminished in bibasilar lobes. RR regular and unlabored. Cardiovascular:??Regular rate and rhythm with S1-S2. No murmurs, gallops or rubs. Pacemaker left upper chest. Gastrointestinal:??Abdomen soft and nontender. Bowel sounds present in all 4 quadrants. No suprapubic tenderness. Skin:??Warm and dry. No rash or lesions on limited exam. Fair turgor. Left hand with dull erythema proximal metatarsal joints to wrist. Normothermic to touch, mildly tender. 2 small, circular, approx 2 mm shallow ulcera
[2022-02-19 14:10] VITALS: BP 123/53; PULSE 71; RESP 12; TEMP 36.4; O2SAT 96
== END 2022-02-19 15:45 | disposition home or self-care (01) | DRG 872 ==
LOC: ANHED 21:03 → ANH3MED 21:51
PROVIDERS: Internal Medicine; Admitting Provider Internal Medicine; Emergency Provider Emergency Medicine; PCP Nurse Practitioner Family; Visit Provider Internal Medicine
DX: A41.9 Sepsis, unspecified organism (principal); L03.114 Cellulitis of left upper limb; I10 Essential (primary) hypertension; R73.9 Hyperglycemia, unspecified; Z20.822 Contact with and (suspected) exposure to COVID-19; R41.89 Other symptoms and signs involving cognitive functions and awareness; R25.1 Tremor, unspecified; F41.9 Anxiety disorder, unspecified; F03.90 Unspecified dementia, unspecified severity, without behavioral disturbance, psychotic disturbance, mood disturbance, and anxiety; I48.91 Unspecified atrial fibrillation; J44.9 Chronic obstructive pulmonary disease, unspecified; N40.0 Benign prostatic hyperplasia without lower urinary tract symptoms; E78.5 Hyperlipidemia, unspecified; R35.1 Nocturia; Z90.49 Acquired absence of other specified parts of digestive tract; Z87.891 Personal history of nicotine dependence
CPT/HCPCS: 36415; 70450; 71045; 73130; 80048; 80053; 81001; 83036; 83605; 85025; 85027; 85610; 85652; 85730; 86140; 87040; 87070; 87075; 87205; 96361; 96365; 96366; 96367; 96372; 97161; 97165; 99284; 99285; A9270; C9803; G0378; J0131; J0690; J0696; J1650; J7030; U0003; U0005

== ENCOUNTER 2022-03-01 15:13 | Outpatient (RCR) | payer MEDICARE, SELFPAY ==
--- NOTE | 2022-03-01 16:50 | PTOPEVAL1 ---
Evaluation Information Assessment Status Evaluation Diagnosis weakness Subjective Information Pt states he would like to be able to walk better and feel better. He states he cannot get around like he used to. He reports 1 fall in the last 6 months. He states his balance isnt very good and he trips over his feel sometimes. His daughter states he shuffles his feet when he walks. Pt lives alone put has lots of local family support. Reported Pain Level Pain Score 0: Self Report Assessment PT Clinical Summary Noé is a sedentary 86 y/o male who presents to therapy today for his intial evaluation with a diagnosis of weakness. Today he demonstrates fair gross muscle strength, and decreased balance. He requires increased time to completed standardized tests placing him at an increased risk of falls. Pt was educated in a HEP to complete at home as well as a home walking program and techniques to encourage move movement out of his chair. Skilled physical therapy services are indicated to address strength and balance deficits, to minimize fall risk, and to promote safety with functional mobility. Plan of Care Interventions Gait Training,Manual Therapy,Neuro Re-education, Patient/Caregiver Educati,Therapeutic Activities, Therapeutic Exercise PT Services Indicated Yes Treatment Frequency and 2x/wk for 5 wks or until goals are met Duration These treatments will address the objective and functional deficits as defined above. The patient will be advanced safely and appropriately in order for the patient to progress towards his/her prior level of function. Additional exercises will be introduced and as well as a comprehensive home exercise program upon discharge, if needed, ?to ensure carryover of functional gains achieved in the clinic. This treatment plan has been reviewed and agreement upon by the patient.
--- NOTE | 2022-03-07 14:55 | PCPTNOTE ---
Patient called this date 03/07/22 to cancel appointment for 03/08/22 due to over booking himself.
--- NOTE | 2022-03-14 09:20 | PCPTNOTE ---
Patient called to cancel this date due to being sick.
--- NOTE | 2022-03-16 09:38 | PCPTNOTE ---
Patient reports he has car trouble and unable to make appointment.
--- NOTE | 2022-03-20 15:18 | PTOPDC ---
Assessment and note entered by Ania Carroll, PT, DPT Evaluation Information Assessment Status Discharge - Pt Not Presen Diagnosis weakness Subjective Information Pts daughter called and cancelled his remaining appointments. She states her father just does not want to do therapy anymore. Assessment PT Clinical Summary Noé had his initial evaluation on 03/01/22 and has cancelled his 3 scheduled appointments after this. He has not returned for any treatments. Per pt request he will be discharged from skilled therapy services at this time. If he would like to return at a later date, he will need new orders.
== END 2022-03-20 15:53 | disposition home or self-care (01) ==
LOC: ANHGOSHPT 15:13
PROVIDERS: PCP Nurse Practitioner Family; Visit Provider Nurse Practitioner Family
DX: R53.1 Weakness (principal)
CPT/HCPCS: 97112; 97161

== ENCOUNTER 2023-05-07 08:46 | Emergency (ER) | payer MEDICARE, SELFPAY ==
--- NOTE | ~2023-05-07 | XR_ITS ---
EXAMINATION: XR wrist RT min 3V DATE: 05/07/2023 10:32 INDICATION: Right wrist pain and swelling TECHNIQUE: Posteroanterior, ulnar deviation, oblique, and lateral views of the right wrist were obtai mayela. COMPARISON: none FINDINGS: 2 mm ulnar positive variance. Mild palmar subluxation at the second-fourth metacarpophalangeal joints . No fracture. 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 Chondrocalcinosis in the region of the triangular fibr ocartilage complex. No erosions to suggest inflammatory arthritis. Vascular calcifications along the ulnar artery. Mild soft tissue swelling about the medial and lateral aspects of the wrist. Small radi opaque foreign body in the soft tissues dorsal/radial to the base of the second metacarpal. IMPRESSION: 1. No acute osseous abnormality. 2. 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 3. Small radiopaque foreign body in the soft tissues dorsal/radial to the base of the second metacarp al. Reviewed, dictated and finalized at location A. R FINISHER IMPRESSION: 1. No acute osseous abnormality. 2. 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 3. Small radiopaque foreign body in the soft tissues dorsal/radial to the base of the second metacarpal.
[2023-05-07 08:54] VITALS: BP 171/87; PULSE 65; RESP 16; TEMP 36.5; O2SAT 95
[2023-05-07 09:00] VITALS: BP 171/87; PULSE 65; RESP 16; TEMP 36.5; O2SAT 95
--- NOTE | 2023-05-07 09:38 | ED.GENADULT ---
HPI - General Adult General Chief complaint: Extremity Problem,Nontraumatic <Sejal Gabriel APRN - Last Filed: 05/07/23 15:16> Stated complaint: Injured wrist <Sejal Gabriel APRN - Last Filed: 05/07/23 15:16> Time Seen by Provider: 05/07/23 09:38 <Sejal Gabriel APRN - Last Filed: 05/07/23 15:16> Source: patient, RN notes reviewed and old records reviewed <Sejal Gabriel APRN - Last Filed: 05/07/23 15:16> Mode of arrival: ambulatory <Sejal Gabriel APRN - Last Filed: 05/07/23 15:16> Limitations: no limitations <Sejal Gabriel APRN - Last Filed: 05/07/23 15:16> History of Present Illness HPI narrative: 87-year-old male presents to the [facility] with right wrist discomfort. Reports stiffness and discomfort with movement. Symptoms started Sunday Denies injury. States that when he woke up Sunday morning the pain was there. No erythema, ecchymosis. No snuffbox tenderness. Sensation intact in all 5 fingers with capillary refill under 2 seconds. No deformity noted. positive radial pulse Patient has a history of hypertension, does not take medications as prescribed. No treatment prior to arrival <Sejal Gabriel APRN - Last Filed: 05/07/23 15:16> Onset (ago): day(s) (1) <Sejal Gabriel APRN - Last Filed: 05/07/23 15:16> Related Data Home medications: Home Medications Medication Instructions Recorded Confirmed aspirin 81 mg tablet,delayed 81 mg PO DAILY 12/12/21 05/07/23 release losartan 50 mg tablet 50 mg PO DAILY 12/12/21 05/07/23 <Sejal Gabriel APRN - Last Filed: 05/07/23 15:16> Allergies/adverse reactions: Allergies Allergy/AdvReac Type Severity Reaction Status Date / Time No Known Allergies Allergy Verified 05/07/23 08:59 <Sejal Gabriel APRN - Last Filed: 05/07/23 15:16> Review of Systems Review of Systems: All systems reviewed & are unremarkable except as noted in HPI and below <Sejal A. Lesliejanee, MEDICAL CLAIMS SPECIALIST - Last Filed: 05/07/23 15:16> Constitutional: Constitutional: Reports no additional constitutional complaints <Sejal A. Lesliejanee, MEDICAL CLAIMS SPECIALIST - Last Filed: 05/07/23 15:16> Eyes: Eyes: Reports no additional eye complaints <Sejal A. Lesliejanee, MEDICAL CLAIMS SPECIALIST - Last Filed: 05/07/23 15:16> ENT: Reports system reviewed and no additional complaints, except as documented <Sejal A. Lesliejanee, MEDICAL CLAIMS SPECIALIST - Last Filed: 05/07/23 15:16> Cardiovascular: Cardiovascular: Reports no additional cardiovascular complaints, Denies chest pain and Denies dyspnea <Sejal A. Harvey, MEDICAL CLAIMS SPECIALIST - Last Filed: 05/07/23 15:16> Respiratory: Respiratory: Reports no additional respiratory complaints, Denies chest congestion, Denies cough and Denies dyspnea <Sejal A. Harvey, MEDICAL CLAIMS SPECIALIST - Last Filed: 05/07/23 15:16> Gastrointestinal: Gastrointestinal: Reports no additional gastrointestinal complaints, Denies abdominal pain, Denies nausea and Denies vomiting <Sejal A. Lesliejanee, MEDICAL CLAIMS SPECIALIST - Last Filed: 05/07/23 15:16> Musculoskeletal: Musculoskeletal: Reports as per HPI, Reports arthralgias (Right wrist) and Reports stiffness (Right wrist) <Sejal A. Lesliejanee, MEDICAL CLAIMS SPECIALIST - Last Filed: 05/07/23 15:16> Integumentary/Breasts: Skin/Breast: Reports system reviewed and no additional complaints, except as docu <Sejal A. Harvey, MEDICAL CLAIMS SPECIALIST - Last Filed: 05/07/23 15:16> Neurologic: Reports system reviewed and no additional complaints, except as documented <Sejal A. Lesliejanee, MEDICAL CLAIMS SPECIALIST - Last Filed: 05/07/23 15:16> Psychiatric: Psychiatric: Reports no additional psychiatric complaints <Sejal A. Harvey, MEDICAL CLAIMS SPECIALIST - Last Filed: 05/07/23 15:16> Allergic/Immunologic: Allergic/Immunologic: Reports no additional allergic/immunologic complaints <Sejal A. Harvey, MEDICAL CLAIMS SPECIALIST - Last Filed: 05/07/23 15:16> PMFSH Past Medical History Medical History: Medical History Anemia Anxiety Atrial fibrillation Cellulitis of left hand Cognitive impairment Constipation COPD (chronic obstructive pulmonary disease) D
== END 2023-05-07 11:08 | disposition home or self-care (01) ==
PROVIDERS: Emergency Provider Nurse Practitioner; PCP Nurse Practitioner Family
DX: M19.031 Primary osteoarthritis, right wrist (principal); M19.041 Primary osteoarthritis, right hand; Z87.891 Personal history of nicotine dependence; I48.91 Unspecified atrial fibrillation; J44.9 Chronic obstructive pulmonary disease, unspecified; F03.90 Unspecified dementia, unspecified severity, without behavioral disturbance, psychotic disturbance, mood disturbance, and anxiety; E78.5 Hyperlipidemia, unspecified; I10 Essential (primary) hypertension; Z79.82 Long term (current) use of aspirin
CPT/HCPCS: 73110; 99213; G0463

== ENCOUNTER → 2023-07-05 09:22 | Outpatient (CLI) | payer MEDICARE, SELFPAY ==
--- NOTE | ~2023-07-05 | XR_ITS ---
XR chest 2V DATE: 07/05/2023 09:40 INDICATION: Shortness of breath TECHNIQUE: 2 views COMPARISON: 02/16/2022 portable AP chest FINDINGS: Normal heart size. Mild aortic calcification and unfolding. Bilateral hyperinflation, increased retrosternal airspace, relative flattening the diaphragm, consist ent with COPD. No pulmonary infiltrate or consolidation, pleural effusion or pulmonary vascular congestion or pneumo thorax is detected. The central pulmonary arteries are relatively prominent; pulmonary hypertension i s not excluded. No hilar or mediastinal enlargement. Mild right apical capping. There is scoliosis and degenerative spurring of the thoracic and lumbar spine. IMPRESSION: COPD No active cardiopulmonary disease Aortic atherosclerosis Reviewed, dictated and finalized at location L. CLE ASSEMBLER
== END ==
PROVIDERS: PCP Nurse Practitioner Family; Visit Provider Nurse Practitioner Family
DX: I70.0 Atherosclerosis of aorta (principal); R06.02 Shortness of breath
CPT/HCPCS: 71046

== ENCOUNTER 2024-03-07 15:39 | Emergency (ER) | payer OTHER, SELFPAY ==
--- NOTE | ~2024-03-07 | XR_ITS ---
EXAMINATION: XR hand LT min 3V DATE: 03/07/2024 17:10 INDICATION: Left hand injury and pain. TECHNIQUE: 4 views of left hand were obtained. 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 No acute fra cture. There is severe osteoarthritis of first carpometacarpal joint, third metacarpophalangeal joint , and third distal interphalangeal joint. There is mild osteoarthritis of some of the metacarpophalan geal joints and interphalangeal joints. There is moderate osteoarthritis of first interphalangeal bal nt. IMPRESSION: 1. Polyarticular osteoarthritis. Reviewed, dictated and finalized at location A.
[2024-03-07 16:20] VITALS: BP 166/71; PULSE 71; RESP 16; TEMP 36.4; O2SAT 96
--- NOTE | 2024-03-07 16:24 | ED.UPPEXIN ---
HPI - Extremity Injury (Upper) General Chief Complaint: Extremity Injury, Upper Stated Complaint: Hit Left Hand working in garage Time Seen by Provider: 03/07/24 16:25 Focused HPI: This is an 88-year-old male that presents to the emergency department for redness and swelling of his left hand. Ongoing since yesterday. Reports he hit his hand while working in the garage on Sunday. Had a small laceration to the area. Noticed the redness and swelling yesterday which has continued to worsen and prompted him to be seen. Denies fevers, decreased ROM or drainage. GENERAL: Well-appearing, well-nourished, and in no acute distress. HEAD: Normocephalic, atraumatic. CHEST: Clear to auscultation. ?No respiratory distress. HEART: Regular rate and rhythm.? MUSCULOSKELETAL: Left hand dorsal surface with small scab present with mild surrounding redness. Normal ROM NEURO: ?Alert and oriented x3. Patient screened in triage and initial orders placed.? ?Additional care and disposition to be based upon?diagnostic testing and treatment. Related Data Home Medications Medication Instructions Recorded Confirmed aspirin 81 mg tablet,delayed 81 mg PO DAILY 12/12/21 02/20/24 release Allergies Allergy/AdvReac Type Severity Reaction Status Date / Time No Known Allergies Allergy Verified 03/07/24 16:26 Review of Systems Review of Systems: CONSTITUTIONAL: Denies fever SKIN: Reports redness and swelling MUSCULOSKELETAL: Denies joint pain NEUROLOGIC: Denies numbness All systems reviewed & are unremarkable except as noted in HPI and below PMFSH Past Medical History Medical History Anemia Anxiety Atrial fibrillation BPH (benign prostatic hyperplasia) Cellulitis of left hand Cognitive impairment Constipation COPD (chronic obstructive pulmonary disease) Dementia Depression Dizziness Elevated fasting glucose Encounter to establish care Fatigue Generalized weakness Hyperlipidemia Hypertension Impacted cerumen of right ear Insomnia Lesion of both ears Nocturia Osteoarthritis of right hand Pressure sore on buttocks Seasonal allergies Seasonal allergies Sepsis Shortness of breath Urine abnormality Weakness Surgical History Surgical History Hx of cholecystectomy Family History Family History Other Unknown family medical history Social History Social History Smoking status: Former smoker Alcohol intake: current Drinks per week: 2 Substance use: never Substance use type: does not use Do You Feel Safe in your Home?: Yes Lack of Transportation: No Lack of Food: Never True Current Housing: I Have Housing Concerned About Future Housing: No Difficulty Paying Gas/Electric Bills: No Difficulty Paying for Meds: No Currently Unemployed: No Education: Grade School Difficulty w/ Childcare or Family Care: No Spiritual care concerns: No Exam Narrative: GENERAL: Well-appearing, well-nourished, and in no acute distress. HEAD: Normocephalic, atraumatic. EYES: EOMI. EXTREMITIES: Normal range of motion. Mild redness and swelling surrounding a small scab to the left hand dorsal surface. Normal radial pulse. Normal sensation. No lymphangitic streaking SKIN: Warm, dry, no rash. NEURO: No focal deficits. Alert and oriented x3. PSYCH: Normal mood and affect Course Course Emergency Course: patient and family updated on workup and agree with plan of care Vital Signs Vital signs: Vital Signs Temperature 97.5 F L 03/07/24 16:20 Pulse Rate 71 03/07/24 16:20 Respiratory Rate 16 03/07/24 16:20 Blood Pressure 166/71 H 03/07/24 16:20 Pulse Oximetry 96 03/07/24 16:20 Oxygen Delivery Room Air 03/07/24 16:20 Temperature 97.5 F L 03/07/24 16:20 Pulse
[2024-03-07 16:38] LABS: Basophils Absolute Auto 0.1 K/mm3 (0.0-0.1); Basophils Percent Auto 0.7 % (0.2-1.2); Eosinophils Absolute Auto 0.3 K/mm3 (0-0.3); Eosinophils Percent Auto 4.3 % (0-4.4); Hematocrit 41.8 % (42.0-52.0); Hemoglobin 14.3 g/dL (14.0-18.0); Immature Granulocyte Absolute 0.04 K/mm3 (0.00-0.031); Immature Granulocyte Percent A 0.5 % (0-0.5); Lymphocytes Absolute Auto 0.99 K/mm3 (0.9-3.2); Lymphocytes Percent Auto 13.3 % (18.3-44.2); Mean Corpuscular HGB Conc 34.2 g/dl (32-36); Mean Corpuscular Hemoglobin 31.8 pg (26-34); Mean Corpuscular Volume 93.1 fl (80-100); Mean Platelet Volume 9.7 fl (7.4-10.4); Monocytes Absolute Auto 0.6 K/mm3 (0.1-0.6); Monocytes Percent Auto 7.8 % (2.6-8.5); Neutrophils Absolute Auto 5.5 K/mm3 (1.3-6.7); Neutrophils Percent Auto 73.4 % (45.5-73.1); Platelet Count Result 166 k/mm3 (150-375); Red Blood Count 4.49 M/mm3 (4.6-6.20); Red Cell Distribution Width 13.4 % (11.5-14.5); White Blood Count 7.5 K/mm3 (4.5-10.0)
[2024-03-07 16:54] LABS: Anion Gap 11 mmol/L (4-12); Blood Urea Nitrogen 22 mg/dL (9-20); CRP < 0.5 mg/dL (<1.0); Calcium 8.9 mg/dL (8.4-10.2); Carbon Dioxide 23 mmol/L (22-30); Chloride 97 mmol/L (98-107); Estimated CRCL calculation 39 ml/min; Estimated Glomerular Filt Rate > 60; Glucose 93 mg/dL (65-110); Potassium 4.6 mmol/L (3.4-5.0); Sodium 131 mmol/L (137-145)
[2024-03-07 18:15] LABS: Erythrocyte Sedimentation Rate 8 mm/hr (0-20)
[2024-03-07] MEDS: CEPHALEXIN 500 MG CAPSULE PO (18:47)
== END 2024-03-07 18:50 | disposition home or self-care (01) ==
LOC: ANHED 18:33
PROVIDERS: Emergency Provider Physician Assistant; PCP Nurse Practitioner Family
DX: L03.114 Cellulitis of left upper limb (principal); F41.8 Other specified anxiety disorders; I48.91 Unspecified atrial fibrillation; F03.90 Unspecified dementia, unspecified severity, without behavioral disturbance, psychotic disturbance, mood disturbance, and anxiety; E78.5 Hyperlipidemia, unspecified; I10 Essential (primary) hypertension; Z87.891 Personal history of nicotine dependence
CPT/HCPCS: 36415; 73130; 80048; 85025; 85652; 86140; 99283; A9270

== ENCOUNTER 2024-03-12 21:11 | Observation (INO) | payer OTHER, SELFPAY ==
--- NOTE | ~2024-03-12 | XR_ITS ---
Left wrist Technique: PA, oblique, lateral, and ulnar deviation views were obtained. Clinical History: Pain Findings: No acute fracture or dislocation is seen. Osseous alignment is anatomic. There is degenerat tanner change of the first CMC joint. Soft tissues are unremarkable. Impression: Advanced degenerative change of the first CMC joint. Reviewed, dictated and finalized at location . Impression: Advanced degenerative change of the first CMC joint.
--- NOTE | ~2024-03-12 | XR_ITS ---
Left Shoulder Technique: AP and scapular Y views were obtained. Clinical History: Pain Findings: No fracture or dislocation is seen. Osseous alignment is anatomic. The glenohumeral and acr omioclavicular joint spaces are preserved. Soft tissues are unremarkable. Impression: Unremarkable left shoulder radiographs. Reviewed, dictated and finalized at [facility]. Impression: Unremarkable left shoulder radiographs.
--- NOTE | ~2024-03-12 | CT_ITS ---
CT head without contrast Indication: Head trauma COMPARISON: 02/16/2022 Technique: Serial scans were obtained through the brain without the administration of contrast. Dose reduction technique was used on this scan by utilizing automated exposure control and iterative recon struction technique. The dose-length product (DLP) was 681.00 mGy-cm. Findings: There is no evidence of intracranial hemorrhage, mass lesion, or acute infarct. The ventri cles and subarachnoid spaces are dilated, consistent with moderate to severe atrophy. Low attenuatio n regions are seen within the periventricular white matter bilaterally, likely representing changes f rom chronic microvascular ischemic disease. There is no evidence of edema, mass effect or midline sh ift. The visualized paranasal sinuses and mastoid air cells are clear. Impression: No intracranial hemorrhage, mass, or acute infarct. Atrophy and chronic white matter changes, as above. Reviewed, dictated and finalized at [facility]. Impression: No intracranial hemorrhage, mass, or acute infarct. Atrophy and chronic white matter changes, as above.
--- NOTE | ~2024-03-12 | XR_ITS ---
Portable chest x-ray Comparison: 07/05/2023 Clinical History: Status post fall Findings: Lungs are clear, without focal consolidation or pleural effusion. Cardiomediastinal silho uette is stable. Bones and soft tissues are unremarkable. Impression: Normal chest. Reviewed, dictated and finalized at location . Impression: Normal chest.
--- NOTE | ~2024-03-12 | CT_ITS ---
CT of the Abdomen and Pelvis, and lumbar spine: Indication: Trauma Technique: 2.5 mm axial scans were obtained through the abdomen and pelvis following intravenous adm inistration of 100 cc of Omnipaque 350. Axial imaging of the lumbar spine was also performed followed by sagittal and coronal reformats. Dose reduction technique was used on this scan by utilizing autom ated exposure control and iterative reconstruction technique. The dose-length product (DLP) was 419.6 3 mGy-cm. Chest, abdomen, pelvis Findings: Scans through the lung bases demonstrate mild to moderate emphysema tous change. The liver, spleen, pancreas, adrenals and kidneys are within normal limits. Cholecystectomy clips not ed. There are atherosclerotic calcifications of the aorta. No lymphadenopathy. No bowel obstruction or bowel wall thickening. There is no evidence to suggest acute appendicitis. Images through the pelvis were performed. Urinary bladder unremarkable. Prostate gland mildly enlarge d. No ascites. Lumbar spine findings: There is dextroscoliosis. There is a focal acute fracture along the anterior cortex of the S4 along t he right side with focal presacral soft tissue edema.. There is severe degenerative disc narrowing at all lumbar levels. At L1-L2, there is mild disc bulge with mild to moderate facet arthropathy probable mild central courtney l stenosis. There is severe bilateral neural foraminal narrowing. L2-L3, there is disc bulge and advanced facet arthropathy, with severe spinal canal stenosis/thecal s ac compression. There is severe bilateral neural foraminal narrowing. L3-L4, there is disc bulge and advanced facet arthropathy, with minimal central canal stenosis. There is severe right neural foraminal narrowing, and moderate to severe left neural foraminal narrowing. At L4-L5, there is disc bulge and facet arthropathy, with mild central canal stenosis. There is advan shirlene bilateral neural foraminal narrowing. At L5-S1, there is disc bulge and facet arthropathy, with mild central canal stenosis. There is sever e bilateral neural foraminal narrowing. Impression: Focal minimally displaced fracture the anterior cortex of S4 just right of midline, with focal associ ated presacral soft tissue edema. No other acute posttraumatic abnormality. Mild to moderate emphysema at the lung bases. Severe degenerative spondylosis throughout the lumbar spine, as detailed above. Reviewed, dictated and finalized at location M. Impression: Focal minimally displaced fracture the anterior cortex of S4 just right of midl ine, with focal associated presacral soft tissue edema. No other acute posttraumatic abnormality. Mild to moderate emphysema at the lung bases. Severe degenerative spondylosis throughout the lumbar spine, as detailed above.
--- NOTE | ~2024-03-12 | XR_ITS ---
Left elbow Technique: AP, oblique, and lateral views were obtained. Clinical History: Pain Findings: No acute fracture or dislocation is seen. Osseous alignment is anatomic. Joint spaces are p reserved. There is no displacement of the fat pads, and soft tissues are unremarkable. Impression: Unremarkable radiographs. Reviewed, dictated and finalized at location . Impression: Unremarkable radiographs.
--- NOTE | ~2024-03-12 | XR_ITS ---
AP view of the pelvis and AP and lateral views of the left hip Clinical history: Pain Findings: No acute fracture or dislocation is seen. Osseous alignment is anatomic. Bilateral hip join ts demonstrate minimal degenerative change. Soft tissues are unremarkable. Impression: Minimal degenerative change of both hip joints. Reviewed, dictated and finalized at location . Impression: Minimal degenerative change of both hip joints.
--- NOTE | ~2024-03-12 | CT_ITS ---
Noncontrast CT scan of the cervical spine Technique: Multiple contiguous axial [address] images of the cervical spine were obtained and rec onstructed in 2D sagittal and coronal planes on the acquisition scanner. Dose reduction technique was used on this scan by utilizing automated exposure control, adjustment of the mA and/or kV according to patient size. The dose-length product (DLP) was 405.95 mGy-cm. Clinical History: Pain Findings: No acute fracture. There is minimal grade 1 anterolisthesis of C2 over C3. There is severe degenerative disc narrowing throughout the cervical spine. There is fusion of the bilateral C2-C3 fac et joints. There is advanced degenerative change of the facet joints in the remainder of the cervical spine bilaterally. There is severe degenerative change at the articulation of the odontoid process w ith the anterior arch of C1. There is left neural foraminal narrowing at C2-C3. There is bilateral ne ural foraminal narrowing at C3-C4. There is bilateral neural foraminal narrowing at C4-C5, C5-C6, and C6-C7. Probable multilevel mild canal stenosis. No prevertebral soft tissue swelling. Moderate to advanced emphysema noted the lung apices. Impression: No acute fracture. Minimal grade 1 anterolisthesis of C2 over C3. Severe degenerative spondylosis throughout the cervical spine, as detailed above. Moderate to advanced emphysema at the lung apices. Reviewed, dictated and finalized at [facility]. Impression: No acute fracture. Minimal grade 1 anterolisthesis of C2 over C3. Severe degenerative spondylosis throughout the cervical spine, as detailed abov e. Moderate to advanced emphysema at the lung apices.
[2024-03-12 21:14] VITALS: BP 155/72; PULSE 82; RESP 20; TEMP 36.7; O2SAT 99
[2024-03-13] VITALS (7 sets, daily range): BP systolic 143–200; BP diastolic 70–92; PULSE 75–83; RESP 18–23; TEMP 36.4–37.3; O2SAT 92–100
[2024-03-13] MEDS: TETANUS,DIPHTHERIA,AC PERTUSSIS ADULT (0.5 ML) BOOSTRIX IM (00:49)
[2024-03-13] MEDS: MORPHINE SULFATE (*CRX) 4 MG/ML INJ 2 MG IV PUSH (00:51)
[2024-03-13 01:02] LABS: Basophils Percent Auto 0.5 % (0.2-1.2); Eosinophils Absolute Auto 0.2 K/mm3 (0-0.3); Eosinophils Percent Auto 2.9 % (0-4.4); Hematocrit 40.6 % (42.0-52.0); Hemoglobin 13.6 g/dL (14.0-18.0); Immature Granulocyte Absolute 0.07 K/mm3 (0.00-0.031); Immature Granulocyte Percent A 0.9 % (0-0.5); Lymphocytes Percent Auto 7.5 % (18.3-44.2); Mean Corpuscular HGB Conc 33.5 g/dl (32-36); Mean Corpuscular Hemoglobin 31.5 pg (26-34); Mean Platelet Volume 9.9 fl (7.4-10.4); Monocytes Absolute Auto 0.5 K/mm3 (0.1-0.6); Monocytes Percent Auto 6.4 % (2.6-8.5); Neutrophils Absolute Auto 6.5 K/mm3 (1.3-6.7); Neutrophils Percent Auto 81.8 % (45.5-73.1); Platelet Count Result 171 k/mm3 (150-375); Red Blood Count 4.32 M/mm3 (4.6-6.20); Red Cell Distribution Width 13.1 % (11.5-14.5)
[2024-03-13 01:08] LABS: Alanine Aminotransferase 14 U/L (6-50); Albumin Level 3.7 g/dL (3.5-5.1); Alkaline Phosphatase 94 U/L (38-126); Anion Gap 6 mmol/L (4-12); Aspartate Amino Transferase 21 U/L (17-59); Bilirubin,Total 0.7 mg/dL (0.2-1.3); Blood Urea Nitrogen 19 mg/dL (9-20); Calcium 8.9 mg/dL (8.4-10.2); Carbon Dioxide 27 mmol/L (22-30); Chloride 97 mmol/L (98-107); Estimated CRCL calculation 43 ml/min; Estimated Glomerular Filt Rate > 60; Glucose 150 mg/dL (65-110); Potassium 3.8 mmol/L (3.4-5.0); Sodium 130 mmol/L (137-145)
[2024-03-13 02:13] LABS: Add Urine Microscopic? NO; Appearance Urine Clear (Clear); Bilirubin Urine Negative (Negative); Blood Urine Negative (Negative); Color Urine Yellow (Yellow); Glucose Urine UA Negative (Negative); Ketones Urine Negative (Negative); Leukocyte Esterase Ur Negative LEU/UL (Negative); Nitrate Urine Negative (Negative); Protein Urine Negative (Negative); Specific Grav Ur 1.025 (1.001-1.035); pH Urine 6.5 (5.0-9.0)
--- NOTE | 2024-03-13 04:21 | ED.GENADULT ---
HPI - General Adult General Chief complaint: Fall Stated complaint: fall, back pain Time Seen by Provider: 03/13/24 00:17 History of Present Illness HPI narrative: Patient 80-year-old gentleman presents emergency department with chief complaint of fall patient fell off a 2 ft porch onto his left side the patient reports he has pain in his left flank area and reports that he also has pain in his low back/hip area the patient denies loss of consciousness exam may have hit his head 1 every fell family reports that he lives by himself and is still little slow after he fell but is at his baseline neurological status Related Data Home Medications Medication Instructions Recorded Confirmed aspirin 81 mg tablet,delayed 81 mg PO DAILY 12/12/21 03/12/24 release Allergies Allergy/AdvReac Type Severity Reaction Status Date / Time No Known Allergies Allergy Verified 03/12/24 21:14 Review of Systems Review of Systems: A 10 system review of systems was completed on the patient and is negative except for what is stated in the HPI. Nursing and ancillary documentation was reviewed. [facility] Past Medical History Medical History Anemia Anxiety Atrial fibrillation BPH (benign prostatic hyperplasia) Cellulitis of left hand Cognitive impairment Constipation COPD (chronic obstructive pulmonary disease) Dementia Depression Dizziness Elevated fasting glucose Encounter to establish care Fatigue Generalized weakness Hyperlipidemia Hypertension Impacted cerumen of right ear Insomnia Lesion of both ears Nocturia Osteoarthritis of right hand Pressure sore on buttocks Seasonal allergies Seasonal allergies Sepsis Shortness of breath Urine abnormality Weakness Surgical History Surgical History Hx of cholecystectomy Family History Family History Other Unknown family medical history Social History Social History Smoking status: Former smoker Alcohol intake: current Drinks per week: 2 Substance use: never Substance use type: does not use Do You Feel Safe in your Home?: Yes Lack of Transportation: No Lack of Food: Never True Current Housing: I Have Housing Concerned About Future Housing: No Difficulty Paying Gas/Electric Bills: No Difficulty Paying for Meds: No Currently Unemployed: No Education: Grade School Difficulty w/ Childcare or Family Care: No Spiritual care concerns: No Exam Narrative: GENERAL: Well-appearing, well-nourished, and in no acute distress. HEAD: Normocephalic, atraumatic. EYES: PERRLA and EOMI. ENT: Nares clear, no rhinorrhea or epistaxis. Mucous membranes moist. NECK: Supple. CHEST: Clear to auscultation. No respiratory distress. HEART: Regular rate and rhythm. No murmur heard. Normal peripheral pulses. ABDOMEN: Soft, nontender, nondistended, normal active bowel sounds. EXTREMITIES: Normal range of motion tenderness to palpation in the left hip area, bruising present to the left wrist area. No edema. SKIN: Warm, dry, no rash. NEURO: No focal deficits. Alert and oriented x3. PSYCH: Normal mood and affect. Course Vital Signs Vital signs: Vital Signs Temperature 36.7 C 03/12/24 21:14 Pulse Rate 82 03/12/24 21:14 Respiratory Rate 20 03/12/24 21:14 Blood Pressure 155/72 H 03/12/24 21:14 Pulse Oximetry 99 03/12/24 21:14 Temperature 36.7 C 03/12/24 21:14 Pulse Rate 83 03/13/24 02:54 Respiratory Rate 23 H 03/13/24 02:54 Blood Pressure 155/72 H 03/13/24 02:54 Pulse Oximetry 99 03/13/24 02:54 Medical Decision Making [facility] Narrative Medical decision making narrative: Differential diagnosis includes intracranial hemorrhage, cervical spine fracture, shoulder injury e
[2024-03-13] MEDS: MORPHINE SULFATE (*CRX) 2 MG/ML INJ IV PUSH (06:33)
--- NOTE | 2024-03-13 06:51 | ADMGEN ---
This patient, Noé Davila, was admitted to 3 Med Surg Room 307-02. Patient/family oriented to hospital policies and general routines including ID bracelet, bed and alarms, visiting hours, pain management, procedures, bathroom and other care routines, personal items, smoking policy, room service/diet, and visiting hours. Information on how to activate the Rapid Response Team has been discussed. Patient/Family are encouraged to report perceived risks to care and to ask questions if they do not understand what they are told or what they should do.
[2024-03-13] MEDS: LOSARTAN POTASSIUM 50 MG TABLET PO (10:41)
[2024-03-13] MEDS: ASPIRIN 81 MG ENTERIC TABLET PO (10:41)
[2024-03-13] MEDS: ATORVASTATIN 20 MG TABLET PO (10:41)
--- NOTE | 2024-03-13 15:28 | PM.IMHP ---
H&P: HPI History of Present Illness Date/Time: 03/13/24 15:28 Chief Complaint: Fall Narrative: Patient is an 80-year-old pleasant male who presented to the emergency department after a ground level fall at home. Patient is not the best historian most information is from the medical chart. As stated previously patient had fell off a 2 ft porch onto his left side, denied any loss of consciousness and denied any dizziness prior to fall. Patient denied any chest pain, shortness a breath, vomiting, loss of vision prior to fall. Currently patient states pain is controlled and pain to left side had improved. Diagnostic trauma exam showed sacral fracture, CT head with no acute issues and no other fractures noted. Labs showed some hyponatremia at 1:30 a.m. and mildly elevated glucose otherwise unremarkable. Patient was admitted to the medical unit for pain control and SNF/rehab placement. Review of Systems Review of Systems: All systems reviewed & are unremarkable except as noted in HPI and below PMFSH Past Medical History Medical History (Updated 03/13/24 @ 15:41 by Alana Olmos APRN) Anemia Anxiety Atrial fibrillation BPH (benign prostatic hyperplasia) Cellulitis of left hand Cognitive impairment Constipation COPD (chronic obstructive pulmonary disease) Dementia Depression Dizziness Elevated fasting glucose Encounter to establish care Fatigue Generalized weakness Hyperlipidemia Hypertension Impacted cerumen of right ear Insomnia Lesion of both ears Nocturia Osteoarthritis of right hand Pressure sore on buttocks Seasonal allergies Seasonal allergies Sepsis Shortness of breath Urine abnormality Weakness Surgical History Surgical History Hx of cholecystectomy Family History Family History Other Unknown family medical history Social History Social History Smoking packs per day: 1 Smoking cigarettes per day: 20.0 Smoking status: Former smoker Tobacco type: cigarettes Smoking end date: 07/02/08 Alcohol intake: former Drinks per week: 2 Substance use: never Substance use type: does not use Do You Feel Safe in your Home?: Yes Lack of Transportation: No Lack of Food: Never True Current Housing: I Have Housing Concerned About Future Housing: No Difficulty Paying Gas/Electric Bills: No Difficulty Paying for Meds: No Currently Unemployed: No Education: Grade School Difficulty w/ Childcare or Family Care: No Spiritual care concerns: No Meds Home Medications and Allergies Home Medications Medication Instructions Recorded Confirmed Type aspirin 81 mg tablet,delayed 81 mg PO DAILY 12/12/21 03/13/24 History release doxazosin 1 mg tablet 1 mg PO QHS #30 tabs 07/05/23 03/13/24 Rx spirometers and accessories #1 ea 07/05/23 03/13/24 Rx losartan 50 mg tablet 50 mg PO DAILY #30 tabs 12/01/23 03/13/24 Rx albuterol sulfate 90 mcg/actuation 1 - 2 inh inhalation Q4-6H PRN 12/10/23 03/13/24 Rx aerosol inhaler shortness of breath or wheezing #8.5 grams ipratropium bromide 21 mcg (0.03 2 spray intranasal .qd-tid #30 mL 02/20/24 03/13/24 Rx %) nasal spray cephalexin 500 mg capsule 500 mg PO Q6H 1 week #28 caps 03/07/24 03/13/24 Rx atorvastatin 20 mg tablet 20 mg PO DAILY #30 tabs 03/12/24 03/13/24 Rx metoprolol succinate 25 mg 25 mg PO DAILY #30 tabs 03/12/24 03/13/24 Rx tablet,extended release 24 hr Allergies Allergy/AdvReac Type Severity Reaction Status Date / Time No Known Allergies Allergy Verified 03/12/24 21:14 Vital Signs Vital Signs - 24 hr 03/12/24 21:14 03/13/24 00:02 03/13/24 02:54 Temperature 98.1 F Pulse Rate 82 75 83 Respiratory Rate 20 22 H 23 H Blood Pressure 155/72 H 155/72 H Pulse Oximetry 99 100 99 03/13/24 06:30
[2024-03-13] MEDS: CEPHALEXIN 500 MG CAPSULE PO ×2 (15:30→21:31)
[2024-03-13] MEDS: DOXAZOSIN MESYLATE 1 MG TABLET PO (21:31)
[2024-03-14] MEDS: CEPHALEXIN 500 MG CAPSULE PO ×4 (03:26→20:11)
[2024-03-14 06:00] VITALS: BP 148/80; PULSE 66; RESP 20; TEMP 37.3; O2SAT 93
[2024-03-14 06:57] LABS: Hematocrit 39.9 % (42.0-52.0); Hemoglobin 13.6 g/dL (14.0-18.0); Mean Corpuscular HGB Conc 34.1 g/dl (32-36); Mean Corpuscular Hemoglobin 31.7 pg (26-34); Mean Platelet Volume 9.9 fl (7.4-10.4); Platelet Count Result 149 k/mm3 (150-375); Red Blood Count 4.29 M/mm3 (4.6-6.20); Red Cell Distribution Width 13.2 % (11.5-14.5); White Blood Count 6.4 K/mm3 (4.5-10.0)
[2024-03-14 07:15] LABS: Alanine Aminotransferase 13 U/L (6-50); Albumin Level 3.6 g/dL (3.5-5.1); Alkaline Phosphatase 85 U/L (38-126); Anion Gap 9 mmol/L (4-12); Aspartate Amino Transferase 21 U/L (17-59); Bilirubin,Total 1.1 mg/dL (0.2-1.3); Blood Urea Nitrogen 16 mg/dL (9-20); Calcium 8.8 mg/dL (8.4-10.2); Carbon Dioxide 24 mmol/L (22-30); Chloride 95 mmol/L (98-107); Estimated CRCL calculation 43 ml/min; Estimated Glomerular Filt Rate > 60; Glucose 109 mg/dL (65-110); Potassium 4.1 mmol/L (3.4-5.0); Sodium 128 mmol/L (137-145)
[2024-03-14] MEDS: ASPIRIN 81 MG ENTERIC TABLET PO (10:32)
[2024-03-14] MEDS: LOSARTAN POTASSIUM 50 MG TABLET PO (10:33)
[2024-03-14] MEDS: ATORVASTATIN 20 MG TABLET PO (10:33)
[2024-03-14] MEDS: polyethylene glycoL 3350 17 GM POWD.PACK PO (10:33)
--- NOTE | 2024-03-14 11:32 | P.PNIM_ITS ---
Progress Note: A&P Assessment and Plan (1) Closed sacral fracture: Code(s): S32.10XA - Unspecified fracture of sacrum, initial encounter for closed fracture Status: Acute Assessment and Plan: * CT:Focal minimally displaced fracture the anterior cortex of S4 just right of midline, with focal associated presacral soft tissue edema. * Pain control * PT/OT * Rehab placement * Neurovascular checks * monitor bladder and bowel * Miralax (2) Ground-level fall: Code(s): W18.30XA - Fall on same level, unspecified, initial encounter Status: Acute Assessment and Plan: * HX of vertigo * denied dizziness prior to fall * CT Head negative for acute issues * PT/OT * Rehab placement (3) Hypertension: Code(s): I10 - Essential (primary) hypertension Status: Acute Assessment and Plan: * systolic's in the 200's on admission likely pain related * resumed home medications * pain control * systolic's in the 150's now * POMargoth requested we hold the metoprolol he had not started that yet as a home medication wants to follow-up with her chicken vaccinator o/p first. Plan Code status: Full code per patient DVT prophylaxis: SCD's Stress ulcer prophylaxis: NA PT/OT notes: PT/OT SNF/Rehab Disposition: Patient was admitted to the medical unit for further evaluation treatment with pain control and PT OT after sacral fracture currently waiting placement to SNF/rehab. Time Spent With Patient Time with patient: 15 - 25 minutes Subjective Date/time seen: 03/14/24 11:32 Interval history: Admission: Patient is an 80-year-old pleasant male who presented to the emergency department after a ground level fall at home. Patient is not the best historian most information is from the medical chart. As stated previously patient had fell off a 2 ft porch onto his left side, denied any loss of consciousness and denied any dizziness prior to fall. Patient denied any chest pain, shortness a breath, vomiting, loss of vision prior to fall. Currently patient states pain is controlled and pain to left side had improved. Diagnostic trauma exam showed sacral fracture, CT head with no acute issues and no other fractures noted. Labs showed some hyponatremia at 1:30 a.m. and mildly elevated glucose otherwise unremarkable. Patient was admitted to the medical unit for pain control and SNF/rehab placement. 03/14/2024 Patient with no complaints stated pain is controlled. labs reviewed and vitals stable Review of Systems Review of Systems: All systems reviewed & are unremarkable except as noted in HPI and below Exam Narrative: Physical Exam: * GENERAL: Alert and oriented x 2 pleasantly confused intermittently. No acute distress. * EYES: EOMI. No scleral icterus. PERRLA. * HEENT: Moist mucous membranes. * LUNGS: Clear to auscultation bilaterally. No accessory muscle use. * CARDIOVASCULAR: Regular rate and rhythm. No murmur. No JVD. S1-S2 * ABDOMEN: Soft, non tenderness and non-distended. No palpable masses. * EXTREMITIES: No edema. Non-tender * SKIN: No rashes or lesions. Skin warm, dry. * NEUROLOGIC: No focal neurological deficits. CN II-XII grossly intact * PSYCHIATRIC: Kimmie
--- NOTE | 2024-03-14 11:32 | PM.IMPN ---
Progress Note: A&P Assessment and Plan (1) Closed sacral fracture: Code(s): S32.10XA - Unspecified fracture of sacrum, initial encounter for closed fracture Status: Acute Assessment and Plan: CT:Focal minimally displaced fracture the anterior cortex of S4 just right of midline, with focal associated presacral soft tissue edema. Pain control PT/OT Rehab placement Neurovascular checks monitor bladder and bowel Miralax (2) Ground-level fall: Code(s): W18.30XA - Fall on same level, unspecified, initial encounter Status: Acute Assessment and Plan: HX of vertigo denied dizziness prior to fall CT Head negative for acute issues PT/OT Rehab placement (3) Hypertension: Code(s): I10 - Essential (primary) hypertension Status: Acute Assessment and Plan: systolic's in the 200's on admission likely pain related resumed home medications pain control systolic's in the 150's now POA requested we hold the metoprolol he had not started that yet as a home medication wants to follow-up with her jet man o/p first. Plan Code status: Full code per patient DVT prophylaxis: SCD's Stress ulcer prophylaxis: NA PT/OT notes: PT/OT SNF/Rehab Disposition: Patient was admitted to the medical unit for further evaluation treatment with pain control and PT OT after sacral fracture currently waiting placement to SNF/rehab. Time Spent With Patient Time with patient: 15 - 25 minutes Subjective Date/time seen: 03/14/24 11:32 Interval history: Admission: Patient is an 80-year-old pleasant male who presented to the emergency department after a ground level fall at home. Patient is not the best historian most information is from the medical chart. As stated previously patient had fell off a 2 ft porch onto his left side, denied any loss of consciousness and denied any dizziness prior to fall. Patient denied any chest pain, shortness a breath, vomiting, loss of vision prior to fall. Currently patient states pain is controlled and pain to left side had improved. Diagnostic trauma exam showed sacral fracture, CT head with no acute issues and no other fractures noted. Labs showed some hyponatremia at 1:30 a.m. and mildly elevated glucose otherwise unremarkable. Patient was admitted to the medical unit for pain control and SNF/rehab placement. 03/14/2024 Patient with no complaints stated pain is controlled. labs reviewed and vitals stable Review of Systems Review of Systems: All systems reviewed & are unremarkable except as noted in HPI and below Exam Narrative: Physical Exam: GENERAL: Alert and oriented x 2 pleasantly confused intermittently. No acute distress. EYES: EOMI. No scleral icterus. PERRLA. HEENT: Moist mucous membranes. LUNGS: Clear to auscultation bilaterally. No accessory muscle use. CARDIOVASCULAR: Regular rate and rhythm. No murmur. No JVD. S1-S2 ABDOMEN: Soft, non tenderness and non-distended. No palpable masses. EXTREMITIES: No edema. Non-tender SKIN: No rashes or lesions. Skin warm, dry. NEUROLOGIC: No focal neurological deficits. CN II-XII grossly intact PSYCHIATRIC: Appropriate mood and affect. Good judgement and insight. No visual or auditory hallucinations. No suicidal or homicidal ideation. Objective Data Vital Signs Vital Signs: Vital Signs - 24 hr 03/13/24 14:00 03/13/24 20:18 03/14/24 06:00 Temperature 99.2 F 98.4 F 99.1 F Pulse Rate 77 75 66 Respiratory Rate 18 20 20 Blood Pressure 150/70 H 143/76 H 148/80 H Pulse Oximetry 93 94 93 Oxygen Delivery 03/14/24 10:21 Temperature Pulse Rate Respiratory Rate Blood Pressure Pulse Oximetry Oxygen Delivery Room Air Intake/Output Intake/Output: Intake & Output 03/11/24 03/12/24 03/13/24 03/14/24 23:59 23:59 23:59 23:59 Intake Total 860 1090 Balance 860 1090 Meds/Results Medications: Active Medi
[2024-03-14 14:00] VITALS: BP 149/68; PULSE 78; RESP 20; TEMP 36.1; O2SAT 99
[2024-03-14 19:43] VITALS: BP 147/72; PULSE 77; RESP 16; TEMP 36.8; O2SAT 97
[2024-03-14] MEDS: DOXAZOSIN MESYLATE 1 MG TABLET PO (20:11)
[2024-03-15 05:26] VITALS: BP 146/66; PULSE 71; RESP 16; TEMP 36.3; O2SAT 100
[2024-03-15 07:04] LABS: Hematocrit 39.3 % (42.0-52.0); Mean Corpuscular HGB Conc 33.1 g/dl (32-36); Mean Corpuscular Volume 93.8 fl (80-100); Mean Platelet Volume 10.2 fl (7.4-10.4); Platelet Count Result 154 k/mm3 (150-375); Red Blood Count 4.19 M/mm3 (4.6-6.20); Red Cell Distribution Width 13.2 % (11.5-14.5); White Blood Count 6.3 K/mm3 (4.5-10.0)
[2024-03-15 07:34] LABS: Alanine Aminotransferase 12 U/L (6-50); Albumin Level 3.5 g/dL (3.5-5.1); Alkaline Phosphatase 77 U/L (38-126); Anion Gap 6 mmol/L (4-12); Aspartate Amino Transferase 22 U/L (17-59); Bilirubin,Total 1.3 mg/dL (0.2-1.3); Blood Urea Nitrogen 19 mg/dL (9-20); Calcium 8.4 mg/dL (8.4-10.2); Carbon Dioxide 22 mmol/L (22-30); Chloride 94 mmol/L (98-107); Estimated CRCL calculation 43 ml/min; Estimated Glomerular Filt Rate > 60; Glucose 103 mg/dL (65-110); Potassium 4.5 mmol/L (3.4-5.0); Sodium 122 mmol/L (137-145)
[2024-03-15] MEDS: ATORVASTATIN 20 MG TABLET PO (08:03)
[2024-03-15] MEDS: LOSARTAN POTASSIUM 50 MG TABLET PO (08:03)
[2024-03-15] MEDS: polyethylene glycoL 3350 17 GM POWD.PACK PO (08:03)
[2024-03-15] MEDS: ASPIRIN 81 MG ENTERIC TABLET PO (08:03)
[2024-03-15 09:40] VITALS: O2SAT 95
--- NOTE | 2024-03-15 10:05 | P.DS_ITS ---
DS: Admitting Diagnosis Discharge Date 03/15/2024 Admitting Diagnosis Sacral Fracture/Fall DS: Discharge Diagnosis Discharge Diagnosis (1) Closed sacral fracture: Code(s): S32.10XA - Unspecified fracture of sacrum, initial encounter for closed fracture Status: Acute Assessment and Plan: * CT:Focal minimally displaced fracture the anterior cortex of S4 just right of midline, with focal associated presacral soft tissue edema. * Pain control * PT/OT * Rehab placement * Neurovascular checks * monitor bladder and bowel * Miralax (2) Ground-level fall: Code(s): W18.30XA - Fall on same level, unspecified, initial encounter Status: Acute Assessment and Plan: * HX of vertigo * denied dizziness prior to fall * CT Head negative for acute issues * PT/OT * Rehab placement (3) Hypertension: Code(s): I10 - Essential (primary) hypertension Status: Acute Assessment and Plan: * systolic's in the 200's on admission likely pain related * resumed home medications * pain control * systolic's in the 150's now * ERMA requested we hold the metoprolol he had not started that yet as a home medication wants to follow-up with her composing room supervisor o/p first. Plan Code status: Full code per patient Disposition: Patient discharged to SNF for continued PT/OT DS: Summary Hospital Course Reason for hospitalization: Sacral fracture/fall Hospital Course: Admission: Patient is an 80-year-old pleasant male who presented to the emergency department after a ground level fall at home. Patient is not the best historian most information is from the medical chart. As stated previously patient had fell off a 2 ft porch onto his left side, denied any loss of consciousness and denied any dizziness prior to fall. Patient denied any chest pain, shortness a breath, vomiting, loss of vision prior to fall. Currently patient states pain is controlled and pain to left side had improved. Diagnostic trauma exam showed sacral fracture, CT head with no acute issues and no other fractures noted. Labs showed some hyponatremia at 1:30 a.m. and mildly elevated glucose otherwise unremarkable. Patient was admitted to the medical unit for pain control and SNF/rehab placement. 03/14/2024 Patient with no complaints stated pain is controlled. labs reviewed and vitals stable 03/15/24: DISCHARGED Patient with no complaints at time of discharge, labs unremarkable and vitals were stable. Patient improving with PT/OT and pain was well controlled. He was excepted to SNF and discharged for continued PT/OT and strength training. Status at Discharge Functional status at discharge: uses cane/walker Overall status at discharge: patient is progressing back to baseline Time Spent with Patient Time attestation: Total time spent providing and/or coordinating discharge services: Time spent: Greater than 30 minutes Exam Narrative: Physical Exam: * GENERAL: Alert and oriented x 2 pleasantly confused intermittently. No acute distress. * EYES: EOMI. No scleral icterus. PERRLA. * HEENT: Moist mucous membranes. * LUNGS: Clear to auscultation bilaterally. No accessory muscl
--- NOTE | 2024-03-15 10:05 | PM.DS ---
DS: Admitting Diagnosis Discharge Date 03/15/2024 Admitting Diagnosis Sacral Fracture/Fall DS: Discharge Diagnosis Discharge Diagnosis (1) Closed sacral fracture: Code(s): S32.10XA - Unspecified fracture of sacrum, initial encounter for closed fracture Status: Acute Assessment and Plan: CT:Focal minimally displaced fracture the anterior cortex of S4 just right of midline, with focal associated presacral soft tissue edema. Pain control PT/OT Rehab placement Neurovascular checks monitor bladder and bowel Miralax (2) Ground-level fall: Code(s): W18.30XA - Fall on same level, unspecified, initial encounter Status: Acute Assessment and Plan: HX of vertigo denied dizziness prior to fall CT Head negative for acute issues PT/OT Rehab placement (3) Hypertension: Code(s): I10 - Essential (primary) hypertension Status: Acute Assessment and Plan: systolic's in the 200's on admission likely pain related resumed home medications pain control systolic's in the 150's now POA requested we hold the metoprolol he had not started that yet as a home medication wants to follow-up with her tax evaluator o/p first. Plan Code status: Full code per patient Disposition: Patient discharged to SNF for continued PT/OT DS: Summary Hospital Course Reason for hospitalization: Sacral fracture/fall Hospital Course: Admission: Patient is an 80-year-old pleasant male who presented to the emergency department after a ground level fall at home. Patient is not the best historian most information is from the medical chart. As stated previously patient had fell off a 2 ft porch onto his left side, denied any loss of consciousness and denied any dizziness prior to fall. Patient denied any chest pain, shortness a breath, vomiting, loss of vision prior to fall. Currently patient states pain is controlled and pain to left side had improved. Diagnostic trauma exam showed sacral fracture, CT head with no acute issues and no other fractures noted. Labs showed some hyponatremia at 1:30 a.m. and mildly elevated glucose otherwise unremarkable. Patient was admitted to the medical unit for pain control and SNF/rehab placement. 03/14/2024 Patient with no complaints stated pain is controlled. labs reviewed and vitals stable 03/15/24: DISCHARGED Patient with no complaints at time of discharge, labs unremarkable and vitals were stable. Patient improving with PT/OT and pain was well controlled. He was excepted to SNF and discharged for continued PT/OT and strength training. Status at Discharge Functional status at discharge: uses cane/walker Overall status at discharge: patient is progressing back to baseline Time Spent with Patient Time attestation: Total time spent providing and/or coordinating discharge services: Time spent: Greater than 30 minutes Exam Narrative: Physical Exam: GENERAL: Alert and oriented x 2 pleasantly confused intermittently. No acute distress. EYES: EOMI. No scleral icterus. PERRLA. HEENT: Moist mucous membranes. LUNGS: Clear to auscultation bilaterally. No accessory muscle use. CARDIOVASCULAR: Regular rate and rhythm. No murmur. No JVD. S1-S2 ABDOMEN: Soft, non tenderness and non-distended. No palpable masses. EXTREMITIES: No edema. Non-tender SKIN: No rashes or lesions. Skin warm, dry. NEUROLOGIC: No focal neurological deficits. CN II-XII grossly intact PSYCHIATRIC: Appropriate mood and affect. Good judgement and insight. No visual or auditory hallucinations. No suicidal or homicidal ideation. DS: Data Data Completed and Pending Labs on day of discharge: Labs from last 24 hours 03/15/24 06:04 WBC 6.3 RBC 4.19 L Hgb 13.0 L Hct 39.3 L MCV 93.8 MCH 31.0 MCHC 33.1 RDW 13.2 Plt Count 154 MPV 10.2 Sodium 122 L Potassium 4.5 Chloride 94 L Carbon Dioxide 22 Anion G
[2024-03-15 11:16] LABS: SARS-CoV-2 RNA PCR Negative (Negative)
== END 2024-03-15 11:50 ==
LOC: ANHED 03-13 04:27 → ANH3MEDSUR 03-13 07:37
PROVIDERS: Admitting Provider Internal Medicine; Emergency Provider Emergency Medicine; PCP Nurse Practitioner Family; Visit Provider Nurse Practitioner Family
DX: S32.19XA Other fracture of sacrum, initial encounter for closed fracture (principal); S70.12XA Contusion of left thigh, initial encounter; S60.212A Contusion of left wrist, initial encounter; W17.89XA Other fall from one level to another, initial encounter; I48.91 Unspecified atrial fibrillation; N40.0 Benign prostatic hyperplasia without lower urinary tract symptoms; J44.9 Chronic obstructive pulmonary disease, unspecified; F03.90 Unspecified dementia, unspecified severity, without behavioral disturbance, psychotic disturbance, mood disturbance, and anxiety; I10 Essential (primary) hypertension; E78.5 Hyperlipidemia, unspecified; F41.9 Anxiety disorder, unspecified; F32.A Depression, unspecified; Z87.891 Personal history of nicotine dependence; Z79.82 Long term (current) use of aspirin; Z79.51 Long term (current) use of inhaled steroids; Z11.52 Encounter for screening for COVID-19; Z23 Encounter for immunization
CPT/HCPCS: 36415; 70450; 71045; 72125; 72132; 73030; 73080; 73110; 73502; 74177; 80053; 81003; 85025; 85027; 87635; 90471; 90715; 96374; 96376; 97161; 97165; 99285; A9270; G0378; J2270; Q9967

== ENCOUNTER 2024-03-28 13:50 | Outpatient (CLI) | payer OTHER, SELFPAY | END 2024-03-28 13:51 | disposition home or self-care (01) | PROVIDERS: PCP Nurse Practitioner Family; Visit Provider Otolaryngology | DX: H90.3 Sensorineural hearing loss, bilateral (principal) | CPT/HCPCS: 92557; 92567 ==

== ENCOUNTER 2024-04-22 08:02 | Observation (INO) | payer OTHER, SELFPAY ==
[2024-04-22] VITALS (11 sets, daily range): BP systolic 150–218; BP diastolic 61–89; PULSE 66–83; RESP 15–20; TEMP 36.4; O2SAT 96–100; BMI 20.5
--- NOTE | ~2024-04-22 | MR_ITS ---
EXAMINATION: MR sacrum wo con DATE: 04/23/2024 15:39 INDICATION: Displaced sacral fracture with paresthesias extending down the left leg TECHNIQUE: Magnetic resonance imaging (MRI) of the sacrum was performed without intravenous contrast. Sequences included axial T1-weighted FSE, axial T2-weighted FS FSE, coronal T1-weighted FSE, coronal T2-weighted FS FSE, sagittal T1-weighted FSE and sagittal T2-weighted FS FSE. COMPARISON: CT dated 04/22/2024 FINDINGS: Marrow edema surrounding a transverse low T1 signal intensity fracture line extending across the S4 s egment. There is mild buckling of the anterior cortex but no significant displacement. There is an ad ditional nondisplaced oblique fracture line extending cephalad into the posterior inferior aspect of the S3 segment. There appears to be asymmetric mild narrowing of the anterior left S4 neural foramen. No other fractures identified. Severe lumbar spondylosis. See separate lumbar spine MR for further d etail. 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 Prostatomegaly eva uring 5.7 x 3.3 cm. IMPRESSION: 1. Nondisplaced transverse fracture extending across S4 with additional nondisplaced oblique fracture extending across the posterior inferior aspect of the S3 segment. 2. Prostatomegaly. Reviewed, dictated and finalized at location A. IMPRESSION: 1. Nondisplaced transverse fracture extending across S4 with additional nondisp laced oblique fracture extending across the posterior inferior aspect of the S3 segment. 2. Prostatomegaly.
--- NOTE | ~2024-04-22 | MR_ITS ---
Procedure: MR lumbar spine wo con Ordering provider: Ronit Milligan APRN History: . displaced sacral fracture, paresthesia down l leg . Comparison: None. Technique: MRI thoracic spine without contrast. FINDINGS: SPINAL CORD: Normal. Cord ends at the level of L1-L2. VERTEBRAL BODIES: Normal height and alignment. No compression fracture. Normal marrow signal. Dextros coliosis. DISK SPACES: Endplate change narrowing of all the disc spaces in the lumbar area is noted. S seen at the levels of L2-L3, L4-L5 and L5-S1. T12-L1: Mild spinal canal stenosis. Thickening of the ligamenta flava. Narrowing of the foramina bila terally with nerve root compression. L1-L2 mild spinal canal stenosis. Thickening of the ligamenta flava. Narrowing of the left interverte bral foramen with root compression. L2-L3: Severe spinal canal stenosis with bone osteophytes and disc bulge. Thickening of the ligamenta flava is noted bilateral narrowing of th e foramina with root compression laterally. L3-L4: Mild to moderate spinal canal stenosis. Mild diffuse disc bulge. Thickening of the ligamenta f lava. Bilateral narrowing of the foramina with root compression. L4-L5 mild bilateral foraminal stenosis. Diffuse disc bulge. Thickening of the ligamenta flava. L5-S1: Mild diffuse disc bulge. Narrowing of the foramina with root compression bilaterally PARASPINOUS SOFT TISSUES: Normal. IMPRESSION: No compression fracture. Multilevel degenerative disc disease or spinal canal stenosis, intervertebral foraminal narrowing and nerve root compression. Reviewed, dictated and finalized at location A. IMPRESSION: No compression fracture. Multilevel degenerative disc disease or spinal canal stenosis, intervertebral f oraminal narrowing and nerve root compression.
--- NOTE | ~2024-04-22 | CT_ITS ---
EXAMINATION: CT brain wo con DATE: 04/22/2024 13:24 INDICATION: Right hemiparesis. TECHNIQUE: Computed tomography (CT) of the head was performed without intravenous contrast. The mA wa s adjusted according to patient size. Iterative reconstruction technique was employed. The dose-lengt h product was 605.33 mGy-cm. COMPARISON: Head CT 03/13/2024 FINDINGS: There is diffuse brain volume loss. There are scattered areas of low attenuation in the cer ebral white matter. There is no intracranial hemorrhage, acute infarction, or abnormal intracranial m ass lesion. The ventricles are normal in size. There is mucosal thickening in the paranasal sinuses. There are likely changes of ocular lens replacement surgeries. 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 Th e mastoid air cells are normal. IMPRESSION: 1. Stable moderate nonspecific cerebral white matter disease, which likely represents chronic small v essel ischemic disease. Reviewed, dictated and finalized at location A. IMPRESSION: 1. Stable moderate nonspecific cerebral white matter disease, which likely repr esents chronic small vessel ischemic disease.
--- NOTE | ~2024-04-22 | CT_ITS ---
EXAMINATION: CT abdomen pelvis wo/w con DATE: 04/22/2024 12:08 INDICATION: Hematuria. TECHNIQUE: Computed tomography (CT) of the abdomen and pelvis was performed without and with intraven ous contrast using a total of 130 mL Omnipaque-350 intravenous contrast with a double-bolus technique for simultaneous opacification of the renal parenchyma and renal collecting system. Automated exposu re control and iterative reconstruction technique were employed. The dose-length product was 565.37 m Gy-cm. COMPARISON: CT abdomen and pelvis 03/13/2024 FINDINGS: The visualized portions of the lung bases demonstrate emphysema and mild atelectasis. Calcified left lung nodules are consistent with old granulomatous disease. No pleural effusion. The heart size is no rmal. There are coronary artery calcifications. There is a trace pericardial effusion. There are calc ifications of the aortic valve. No pericardial effusion. The liver is normal. There are changes of ch olecystectomy. Calcifications in the spleen are consistent with old granulomatous disease. The pancre as and adrenal glands are normal. There is cortical thinning of right kidney with associated small ar eas of parenchymal hypoenhancement. There are two masses in left kidney measuring up to 7 mm that are too small to characterize, but likely cysts. There is no urolithiasis. The ureters are well opacifie d and are normal. The prostate is moderately enlarged. There are no dilated loops of bowel. The appen gonzalo is normal. There is calcified atherosclerosis of the aorta and many of the other arteries. There are no pathologically enlarged lymph nodes. There is no free intraperitoneal fluid. There is thoracol umbar dextroscoliosis and severe spondylosis. Again seen is a transverse fracture of S4 of the sacrum . IMPRESSION: 1. No specific etiology for hematuria. 2. Healing subacute transverse fracture of S4 of the sacrum. Reviewed, dictated and finalized at location A.
--- NOTE | 2024-04-22 08:35 | ED.MALEGU ---
HPI - Male Genitourinary General Chief complaint: Urogenital-Male Stated complaint: blood in urine Time Seen by Provider: 04/22/24 08:22 History of Present Illness HPI Narrative: Patient presents with 1 week of blood in urine, over last 2 days has been having more generalized weakness and per family, has seemed slightly more confused. Is currently going through physical therapy for leg weakness. Denies any pain anywhere. Related Data Home Medications Medication Instructions Recorded Confirmed aspirin 81 mg tablet,delayed 81 mg PO DAILY 12/12/21 04/01/24 release Allergies Allergy/AdvReac Type Severity Reaction Status Date / Time No Known Allergies Allergy Verified 04/22/24 08:10 Review of Systems Review of Systems: All systems reviewed & are unremarkable except as noted in HPI and below PMFSH Past Medical History Medical History Anemia Anxiety Atrial fibrillation BPH (benign prostatic hyperplasia) Cellulitis of left hand Cognitive impairment Constipation COPD (chronic obstructive pulmonary disease) Dementia Depression Dizziness Elevated fasting glucose Encounter to establish care Fatigue Generalized weakness Hyperlipidemia Hypertension Impacted cerumen of right ear Insomnia Lesion of both ears Nocturia Osteoarthritis of right hand Pressure sore on buttocks Seasonal allergies Seasonal allergies Sepsis Shortness of breath Urine abnormality Weakness Surgical History Surgical History Hx of cholecystectomy Family History Family History Other Unknown family medical history Social History Social History Smoking packs per day: 1 Smoking cigarettes per day: 20.0 Smoking status: Former smoker Tobacco type: cigarettes Smoking end date: 07/02/08 Alcohol intake: former Drinks per week: 2 Substance use: never Substance use type: does not use Do You Feel Safe in your Home?: Yes Lack of Transportation: No Lack of Food: Never True Current Housing: I Have Housing Concerned About Future Housing: No Difficulty Paying Gas/Electric Bills: No Difficulty Paying for Meds: No Currently Unemployed: No Education: Grade School Difficulty w/ Childcare or Family Care: No Spiritual care concerns: No Exam Narrative: EXAMINATION OF ORGAN SYSTEMS/BODY AREAS: Constitutional: Vital signs per nursing GENERAL:[No acute distress, non-toxic appearing.] HEAD: Normal with no signs of head trauma. EYES: EOMI, conjunctiva normal ENT: Hearing grossly intact LUNGS: Nonlabored breathing. HEART: [Regular rate and rhythm] ABD: [Soft], [nontender to palpation] EXT: Normal range of motion SKIN: [No rashes or lesions.] NEURO: [Alert and oriented x 3. No gross focal sensory or strength deficits.] PSYCH: Normal affect Course Vital Signs Vital signs: Vital Signs Temperature 97.5 F L 04/22/24 08:05 Pulse Rate 66 04/22/24 08:05 Respiratory Rate 15 04/22/24 08:05 Blood Pressure 198/89 H 04/22/24 08:05 Pulse Oximetry 97 04/22/24 08:05 Oxygen Delivery Room Air 04/22/24 08:05 Temperature 97.5 F L 04/22/24 08:05 Pulse Rate 75 04/22/24 14:06 Respiratory Rate 15 04/22/24 11:15 Blood Pressure 171/67 H 04/22/24 14:06 Pulse Oximetry 100 04/22/24 14:06 Oxygen Delivery Room Air 04/22/24 08:05 MDM - Male Genitourinary MDM Narrative Medical decision making narrative: Patient presents with painless hematuria. He is otherwise quite well appearing, does not appear to be in any distress. No obvious focal neurologic deficits. Labs within acceptable limits, CT obtained to rule out all malignancy or any other obvious cause of hematuria, does not show any obvious etiology of hematuria or any acute abnormalities. Discussion with family and patient at bedside, they would like him to be admitted at this time since he lives alone by himself and they were concerned about his weakness. Discussed with hospitalist for admission. Lab Data 04/22/24 08:37 04/22/24 08:37 Labs: Lab Results 04/22/24 04/22/24 Range/Units 08:37 10:36 WBC 5.0 (4.5-10.0) K/mm3 RBC 4.57 L (4.6-6.20) M/mm3 Hgb 14.5 (14.0-18.0) g/dL Hct 43.6 (42.0-52.0) % MCV 95.4 (80-100) fl MCH 31.7 (26-34) pg MCHC 33.3 (32-36) g/dl RDW 13.4 (11.5-14.5) % Plt Count 164 (150-375) k/mm3 MPV 9.8 (7.4-10.4) fl Immature Gran % (Auto) 0.4 (0-0.5) % Neut % (Auto) 69.1 (45.5-73.1) % Lymph % (Auto) 16.1 L (18.3-44.2) % [place] % (Auto) 6.8 (2.6-8.5) % Eos % (Auto) 6.6 H (0-4.4) % Baso % (Auto) 1.0 (0.2-1.2) % Lymph # (Auto) 0.80 L (0.9-3.2) K/mm3 [place] # (Auto) 0.3 (0.1-0.6) K/mm3 Eos # (Auto) 0.3 (0-0.3) K/mm3 Baso # (Auto) 0.1 (0.0-0.1) K/mm3 Abs Immat Gran (auto) 0.02 (0.00-0.031) K/mm3 Absolute Neuts (auto) 3.4 (1.3-6.7) K/mm3 Absolute Nucleated RBC 0.000 (0.0-0.012) K/mm3 Nucleated RBC % 0.0 (0.0-0.2) % PT 13.5 (11.1-14.7) Seconds INR 1.0 APTT 26.4 (22.3-36.8) Seconds Sodium 138 (137-145) mmol/L Potassium 4.5 (3.4-5.0) mmol/L Chloride 104 (98-107) mmol/L Carbon Dioxide 26 (22-30) mmol/L Anion Gap 8 (4-12) mmol/L BUN 19 (9-20) mg/dL Creatinine 1.00 (0.7-1.3) mg/dL Estim Creat Clear Calc 43 ml/min Estimated GFR > 60 (59 - ) Glucose 104 (65-110) mg/dL Calcium 9.4 (8.4-10.2) mg/dL Total Bilirubin 1.1 (0.2-1.3) mg/dL AST 19 (17-59) U/L ALT 13 (6-50) U/L Alkaline Phosphatase 104 (38-126) U/L Total Protein 7.0 (6.3-8.2) g/dL Albumin 4.1 (3.5-5.1) g/dL Urine Color Yellow (Yellow) Urine Appearance Clear (Clear) Urine pH 7.0 (5.0-9.0) Ur Specific [place] 1.016 (1.001-1.035) Urine Protein Negative (Negative) mg/dL Urine Glucose (UA) Negative (Negative) mg/dL Urine Ketones Negative (Negative) mg/dL Ur Blood (Man) 3+ H (Negative) Urine Nitrate Negative (Negative) Urine Bilirubin Negative (Negative) Urine Urobilinogen 1.0 (<2.0) mg/dL Leukocyte Esterase Rfl Negative (Negative) ABRIL/UL Urine RBC >100 H (0-2) /hpf Urine WBC 0-5 (0-3) /hpf Ur Squamous Epith Cells None seen (Few) /hpf Urine Bacteria None seen /hpf Urine Casts 0-2 Discharge Plan Discharge Clinical Impression: Hematuria, Generalized weakness, Adult failure to thrive syndrome Patient Disposition: Still a Patient Condition: Stable Prescriptions: No Action ipratropium bromide 21 mcg (0.03 %) spray,non-aerosol 2 spray intranasal .qd-tid Qty: 30 1RF Rx Instructions: administer into each nostril. Aim back/up/out aspirin 81 mg tablet,delayed release (DR/EC) 81 mg PO DAILY doxazosin 1 mg tablet 1 mg PO QHS Qty: 30 11RF (DME) spirometers and accessories Device See Rx Instructions .Route Qty: 1 0RF Rx Instructions: use as directed 4 times daily acetaminophen 325 mg Tablet 650 mg PO Q4H PRN (Reason: Mild Pain (1-3) Or Fever) Qty: 14 0RF polyethylene glycol 3350 [Miralax] 17 gram Powder In Packet 17 g PO QAM Qty: 7 0RF losartan 50 mg tablet 50 mg PO DAILY Qty: 30 11RF Hold Instructions: .Provider Order albuterol sulfate 90 mcg/actuation HFA aerosol inhaler 1 - 2 inh inhalation Q4-6H PRN (Reason: shortness of breath or wheezing) Qty: 8.5 2RF atorvastatin 20 mg tablet 20 mg PO DAILY Qty: 30 11RF Follow-up/Referrals: Gupta,Mely, [employer]AD [Primary Care Provider] -
[2024-04-22 08:45] LABS: Basophils Absolute Auto 0.1 K/mm3 (0.0-0.1); Eosinophils Absolute Auto 0.3 K/mm3 (0-0.3); Eosinophils Percent Auto 6.6 % (0-4.4); Hematocrit 43.6 % (42.0-52.0); Hemoglobin 14.5 g/dL (14.0-18.0); Immature Granulocyte Absolute 0.02 K/mm3 (0.00-0.031); Immature Granulocyte Percent A 0.4 % (0-0.5); Lymphocytes Percent Auto 16.1 % (18.3-44.2); Mean Corpuscular HGB Conc 33.3 g/dl (32-36); Mean Corpuscular Hemoglobin 31.7 pg (26-34); Mean Corpuscular Volume 95.4 fl (80-100); Mean Platelet Volume 9.8 fl (7.4-10.4); Monocytes Absolute Auto 0.3 K/mm3 (0.1-0.6); Monocytes Percent Auto 6.8 % (2.6-8.5); Neutrophils Absolute Auto 3.4 K/mm3 (1.3-6.7); Neutrophils Percent Auto 69.1 % (45.5-73.1); Platelet Count Result 164 k/mm3 (150-375); Red Blood Count 4.57 M/mm3 (4.6-6.20); Red Cell Distribution Width 13.4 % (11.5-14.5)
[2024-04-22 08:53] LABS: Alanine Aminotransferase 13 U/L (6-50); Albumin Level 4.1 g/dL (3.5-5.1); Alkaline Phosphatase 104 U/L (38-126); Anion Gap 8 mmol/L (4-12); Aspartate Amino Transferase 19 U/L (17-59); Bilirubin,Total 1.1 mg/dL (0.2-1.3); Blood Urea Nitrogen 19 mg/dL (9-20); Calcium 9.4 mg/dL (8.4-10.2); Carbon Dioxide 26 mmol/L (22-30); Chloride 104 mmol/L (98-107); Estimated CRCL calculation 43 ml/min; Estimated Glomerular Filt Rate > 60; Glucose 104 mg/dL (65-110); Potassium 4.5 mmol/L (3.4-5.0); Sodium 138 mmol/L (137-145)
[2024-04-22 08:56] LABS: Partial Thromboplastin Time 26.4 Seconds (22.3-36.8); Prothrombin Time 13.5 Seconds (11.1-14.7)
[2024-04-22] MEDS: LOSARTAN POTASSIUM 50 MG TABLET PO (10:27)
--- NOTE | 2024-04-22 10:33 | PC.NURSE ---
Rn went into pt room with catheter supplies, Pt daughter states she wants to wait for catheter to be placed until her sister comes. RN attempted to educate, pt and pt daughter states they want to wait for his other daughter to arrive. EDP made aware
[2024-04-22 10:47] LABS: Add Urine Microscopic? YES; Appearance Urine Clear (Clear); Bacteria Urine None Seen /hpf; Bilirubin Urine Negative (Negative); Blood Urine 3+ (Negative); Color Urine Yellow (Yellow); Glucose Urine UA Negative (Negative); Ketones Urine Negative (Negative); Leukocyte Esterase Ur Negative LEU/UL (Negative); Nitrate Urine Negative (Negative); Non Pathogenic Casts 0-2; Protein Urine Negative (Negative); RBC Urine >100 /hpf (0-2); Specific Grav Ur 1.016 (1.001-1.035); Squamous Epithelial Cell Urine None Seen /hpf (Few); WBC Urine 0-5 /hpf (0-3)
--- NOTE | 2024-04-22 11:15 | PC.NURSE ---
EDP made aware of pt bp reading states she will place new med order
[2024-04-22] MEDS: hydrALAZINE HCL 20 MG/ML VIAL 5 MG IV PUSH ×2 (11:26→14:24)
--- NOTE | 2024-04-22 15:26 | ADMGEN ---
This patient, Noé Davila, was admitted to Medical Room 255-01. Patient/family oriented to hospital policies and general routines including ID bracelet, bed and alarms, visiting hours, pain management, procedures, bathroom and other care routines, personal items, smoking policy, room service/diet, and visiting hours. Information on how to activate the Rapid Response Team has been discussed. Patient/Family are encouraged to report perceived risks to care and to ask questions if they do not understand what they are told or what they should do.
--- NOTE | 2024-04-22 15:30 | PM.IMHP ---
H&P: HPI History of Present Illness Date/Time: 04/22/24 15:30 Chief Complaint: Blood in urine. Narrative: This is pleasant 88-year-old male with history of benign prostatic hyperplasia, chronic atrial fibrillation not on anticoagulation, peripheral arterial disease, hypertension, hyperlipidemia, and dementia who presented to the emergency department via private vehicle with complaints of blood in urine. The patient and his family members provide the following history. He gives a 1 week history of intermittent blood in the urine which seems to have been more frequent the last couple of days. Family members report that he is increasingly confused and more weak than usual however he is currently in physical therapy for leg weakness. He denies fever, chills, sweats, abdominal pain, back pain, dysuria, nausea, and vomiting. In the ED: He was afebrile on arrival. Blood pressures have been running in the 160s to 180s systolic. CMP and CBC were pretty unremarkable. Urinalysis was positive for 3+ blood and greater than 100 WBC were seen on microscopy. CT of the abdomen and pelvis showed no specific etiology for hematuria. He was given his daily dose of losartan with improvement his blood pressures. Hospitalist service was asked to admit the patient in this setting due to his weakness. Review of Systems Review of Systems: 12 systems were reviewed and are negative except for as per HPI. [facility] Past Medical History Medical History (Updated 04/22/24 @ 16:03 by Ree Brizuela PA-C) Anemia Anxiety Atrial fibrillation Benign prostatic hyperplasia Chronic obstructive pulmonary disease Constipation Dementia Depression Hyperlipidemia Hypertension Peripheral vascular disease Seasonal allergies Surgical History Surgical History (Updated 04/22/24 @ 15:59 by Ree Brizuela PA-C) History of cholecystectomy Status post peripheral artery angioplasty with insertion of stent Family History Family History Other Unknown family medical history Social History Social History Social History: Healthcare power of real estate attorney: Roseanne Noguera. Code status: Smoking packs per day: 1 Smoking cigarettes per day: 20.0 Smoking status: Former smoker Tobacco type: cigarettes Smoking end date: 07/02/08 Alcohol intake: never Drinks per week: 2 Substance use: never Substance use type: does not use Do You Feel Safe in your Home?: Yes Lack of Transportation: No Lack of Food: Never True Current Housing: I Have Housing Concerned About Future Housing: No Difficulty Paying Gas/Electric Bills: No Difficulty Paying for Meds: No Currently Unemployed: No Education: Grade School Difficulty w/ Childcare or Family Care: No Spiritual care concerns: No Meds Home Medications and Allergies Home Medications Medication Instructions Recorded Confirmed Type aspirin 81 mg tablet,delayed 81 mg PO DAILY 12/12/21 04/22/24 History release losartan 50 mg tablet 50 mg PO DAILY #30 tabs 12/01/23 04/22/24 Rx albuterol sulfate 90 mcg/actuation 1 - 2 inh inhalation Q4-6H PRN 12/10/23 04/22/24 Rx aerosol inhaler shortness of breath or wheezing #8.5 grams ipratropium bromide 21 mcg (0.03 2 spray intranasal .qd-tid #30 mL 02/20/24 04/22/24 Rx %) nasal spray atorvastatin 20 mg tablet 20 mg PO DAILY #30 tabs 03/12/24 04/22/24 Rx polyethylene glycol 3350 17 gram 17 g PO QAM #7 ea 03/15/24 04/22/24 Rx oral powder packet (Miralax) doxazosin 1 mg tablet 1 mg PO DAILY 04/22/24 04/22/24 History Allergies Allergy/AdvReac Type Severity Reaction Status Date / Time No Known Allergies Allergy Verified 04/22/24 08:10 Vital Signs Vital Signs - 24 hr 04/22/24 08:05 04/22/24 10:32 04/22/24 11:15 Temperature 97.5 F L Pulse Rate 66 70 68 Respiratory Rate 15 16 15 Blood Pressure 198/89 H 191/83 H 218/87 H Pulse Oximetry 97 97 97 Oxygen Delivery Room Air 04/22/24 12:15 04/22/24 14:06 04/22/24 15:17 Temperature 97.6 F Pulse Rate 68 75 69 Respiratory Rate 16 Blood Pressure 182/82 H 171/67 H 160/74 H Pulse Oximetry 96 100 96 Oxygen Delivery 04/22/24 15:04 04/22/24 15:26 Temperature 97.6 F 97.6 F Pulse Rate 83 69 Respiratory Rate 15 16 Blood Pressure 159/65 H 160/74 H Pulse Oximetry 96 96 Oxygen Delivery Exam Narrative: General: Well-developed elderly gentleman the semi-Oh position in bed. Weight: 66.7 kg. BMI: 20.5. He is in good spirits. HEENT: Slightly hard of hearing. PERRL, EOMI. Sclera anicteric. Oral mucosa moist. Neck: Supple. Respiratory: Lungs are clear to auscultation bilaterally. Cardiovascular: Regular rate and rhythm with S1-S2. Gastrointestinal: Abdomen is soft, nontender, and nondistended with positive bowel sounds. Skin: Warm and dry. Extremities: No cyanosis, clubbing, or edema. Radial and pedal pulses intact. Neurological: Alert to self. He is aware that he is in the hospital. Unable to give accurate year. Cranial nerves 2-12 are grossly intact. Speech is clear. No facial asymmetry. Hand clinical account liaison and foot pushes are equal bilaterally. He ambulated to the bathroom with standby without obvious issue. Psychiatric: Pleasant and cooperative with normal mood and affect. He is a bit forgetful. H&P: Results Labs Labs: Short CBC 04/22/24 Range/Units 08:37 WBC 5.0 (4.5-10.0) K/mm3 Hgb 14.5 (14.0-18.0) g/dL Hct 43.6 (42.0-52.0) % Plt Count 164 (150-375) k/mm3 BMP 04/22/24 08:37 Sodium 138 Potassium 4.5 Chloride 104 Carbon Dioxide 26 BUN 19 Creatinine 1.00 Glucose 104 Calcium 9.4 Liver Function 04/22/24 Range/Units 08:37 Total Bilirubin 1.1 (0.2-1.3) mg/dL AST 19 (17-59) U/L ALT 13 (6-50) U/L Alkaline Phosphatase 104 (38-126) U/L Albumin 4.1 (3.5-5.1) g/dL Urine 04/22/24 Range/Units 10:36 Urine Color Yellow (Yellow) Urine Appearance Clear (Clear) Urine pH 7.0 (5.0-9.0) Ur Specific [place] 1.016 (1.001-1.035) Urine Protein Negative (Negative) mg/dL Urine Glucose (UA) Negative (Negative) mg/dL Imaging Abdomen/Pelvis CT 04/22/24 12:11 IMPRESSION: 1. No specific etiology for hematuria. 2. Healing subacute transverse fracture of S4 of the sacrum. Head CT 04/22/24 13:29 IMPRESSION: 1. Stable moderate nonspecific cerebral white matter disease, which likely represents chronic small vessel ischemic disease. Assessment and Plan Assessment and plan (1) Intermittent gross hematuria: Code(s): R31.0 - Gross hematuria Status: Acute (2) Benign prostatic hyperplasia: Code(s): N40.0 - Benign prostatic hyperplasia without lower urinary tract symptoms Status: Acute (3) Generalized weakness: Code(s): R53.1 - Weakness Status: Acute (4) Hypertension: Code(s): I10 - Essential (primary) hypertension Status: Acute (5) Atrial fibrillation: Code(s): I48.91 - Unspecified atrial fibrillation Status: Acute (6) Dementia: Code(s): F03.90 - Unspecified dementia, unspecified severity, without behavioral disturbance, psychotic disturbance, mood disturbance, and anxiety Status: Acute Plan The patient presented to the emergency department for evaluation of intermittent hematuria over the last 1 week as detailed HPI. Labs, imaging, EKG, and all reports were personally reviewed. Etiology of the hematuria is not entirely clear but may very well be related to BPH. CT scan showed no etiology for the hematuria and his hemoglobin has been stable. ED physician offered referral to Urology as an outpatient but since he is going to be admitted overnight I will go ahead and consult them. He seems to be declining physically and may need assisted living. Consult PT/OT as well as care coordination to discuss with the patient and his family. Blood pressures were high on arrival but are improving after he received his daily dose of losartan. Atrial fibrillation is rate controlled; he is not on anticoagulation, presumably due to fall risk. His home medications will be reviewed and resumed as appropriate. Findings and treatment plan were discussed with the patient and his family. Questions were solicited and answered to satisfaction. The patient's medical management will be taken over by the hospitalist team in a.m. Quality VTE Prophylaxis VTE prophylaxis: mechanical ordered If No VTE Prophylaxis Answer both mechanical and pharmacologic: Reason no pharmacologic proph: medical contraindication (hematuria) The patient has been admitted under observation status. Hospitalist MIPS Advance Care Plan I have confirmed that the patient's Advanced Care Plan is present, code status is documented, or surrogate decision maker is listed in patient medical record.: Yes Medication Reconciliation I have utilized all available resources to obtain, update and review the patients current medications (includes all prescriptions, OTC, herbals, cannabis, and nutritional supplements).: Yes
[2024-04-23 04:29] VITALS: BP 174/76; PULSE 64; RESP 20; TEMP 36.2; O2SAT 97
--- NOTE | 2024-04-23 08:09 | WPDURCON ---
Assessment and Plan Assessment and plan (1) Intermittent gross hematuria: Code(s): R31.0 - Gross hematuria Status: Acute Assessment and Plan: Most likely prostatic in origin and clinically insignificant. Will check bladder scan for postvoid residual. Will need a cystoscopy at some point in time and this can be done as an outpatient procedure in the office Urology Consult Note HPI Date Seen: 04/23/24 Time Seen: 08:09 Requesting Physician: Ronit Milligan APRN Primary Care Provider: Mely Gupta NP Consult Narrative Reason for consult: Intermittent hematuria Narrative: Noé Davila is a 88 year old male who was admitted through the emergency room with complaints of weakness and intermittent hematuria. He denies any dysuria or significant voiding symptoms. He did undergo a CT scan which revealed no evidence of stones. He has a couple 7 mm lesions left kidney which are indeterminate but most likely cysts. Patient does have some confusion. He states that the hematuria as at the start of his stream. The morning nurse in night nurse had not noticed any blood in his urine. Urinalysis reveals no evidence of infection. He does have greater than 100 red blood cells in his urine. Review of Systems Review of Systems: All systems reviewed & are unremarkable except as noted in HPI and below PMFSH Past Medical History Medical History Anemia Anxiety Atrial fibrillation Benign prostatic hyperplasia Chronic obstructive pulmonary disease Constipation Dementia Depression Hyperlipidemia Hypertension Peripheral vascular disease Seasonal allergies Surgical History Surgical History History of cholecystectomy Status post peripheral artery angioplasty with insertion of stent Family History Family History Other Unknown family medical history Social History Social History Social History: Healthcare power of litigation attorney: Roseanne Noguera. Code status: Smoking packs per day: 1 Smoking cigarettes per day: 20.0 Smoking status: Former smoker Tobacco type: cigarettes Smoking end date: 07/02/08 Alcohol intake: never Drinks per week: 2 Substance use: never Substance use type: does not use Do You Feel Safe in your Home?: Yes Lack of Transportation: No Lack of Food: Never True Current Housing: I Have Housing Concerned About Future Housing: No Difficulty Paying Gas/Electric Bills: No Difficulty Paying for Meds: No Currently Unemployed: No Education: Grade School Difficulty w/ Childcare or Family Care: No Spiritual care concerns: No Meds Home Medications and Allergies Home Medications Medication Instructions Recorded Confirmed Type aspirin 81 mg tablet,delayed 81 mg PO DAILY 12/12/21 04/22/24 History release losartan 50 mg tablet 50 mg PO DAILY #30 tabs 12/01/23 04/22/24 Rx albuterol sulfate 90 mcg/actuation 1 - 2 inh inhalation Q4-6H PRN 12/10/23 04/22/24 Rx aerosol inhaler shortness of breath or wheezing #8.5 grams ipratropium bromide 21 mcg (0.03 2 spray intranasal .qd-tid #30 mL 02/20/24 04/22/24 Rx %) nasal spray atorvastatin 20 mg tablet 20 mg PO DAILY #30 tabs 03/12/24 04/22/24 Rx polyethylene glycol 3350 17 gram 17 g PO QAM #7 ea 03/15/24 04/22/24 Rx oral powder packet (Miralax) doxazosin 1 mg tablet 1 mg PO DAILY 04/22/24 04/22/24 History Allergies Allergy/AdvReac Type Severity Reaction Status Date / Time No Known Allergies Allergy Verified 04/22/24 08:10 Vital Signs Vital Signs - 24 hr 04/22/24 10:32 04/22/24 11:15 04/22/24 12:15 Temperature Pulse Rate 70 68 68 Respiratory Rate 16 15 Blood Pressure 191/83 H 218/87 H 182/82 H Pulse Oximetry 97 97 96 Oxygen Delivery 04/22/24 14:06 04/22/24 15:17 04/22/24 15:04 Temperature 36.4 C 36.4 C Pulse Rate 75 69 83 Respiratory Rate 16 15 Blood Pressure 171/67 H 160/74 H 159/65 H Pulse Oximetry 100 96 96 Oxygen Delivery 04/22/24 18:05 04/22/24 18:28 04/22/24 19:41 Temperature 36.4 C Pulse Rate 69 Respiratory Rate 20 Blood Pressure 150/61 H 170/88 H Pulse Oximetry 98 Oxygen Delivery Room Air 04/23/24 04:29 04/22/24 21:22 04/22/24 15:26 Temperature 36.2 C L 36.4 C Pulse Rate 64 69 Respiratory Rate 20 16 Blood Pressure 174/76 H 160/74 H Pulse Oximetry 97 97 96 Oxygen Delivery Room Air Exam Const: General: cooperative, comfortable and no acute distress Resp: Effort & Inspection: normal respiratory effort Cardio: Rate: regular rate Rhythm: regular rhythm Results Labs 04/22/24 08:37 04/22/24 08:37 Labs: Short CBC 04/22/24 Range/Units 08:37 WBC 5.0 (4.5-10.0) K/mm3 Hgb 14.5 (14.0-18.0) g/dL Hct 43.6 (42.0-52.0) % Plt Count 164 (150-375) k/mm3 BMP 04/22/24 08:37 Sodium 138 Potassium 4.5 Chloride 104 Carbon Dioxide 26 BUN 19 Creatinine 1.00 Glucose 104 Calcium 9.4 Liver Function 04/22/24 Range/Units 08:37 Total Bilirubin 1.1 (0.2-1.3) mg/dL AST 19 (17-59) U/L ALT 13 (6-50) U/L Alkaline Phosphatase 104 (38-126) U/L Albumin 4.1 (3.5-5.1) g/dL Urine 04/22/24 Range/Units 10:36 Urine Color Yellow (Yellow) Urine Appearance Clear (Clear) Urine pH 7.0 (5.0-9.0) Ur Specific [place] 1.016 (1.001-1.035) Urine Protein Negative (Negative) mg/dL Urine Glucose (UA) Negative (Negative) mg/dL
[2024-04-23] MEDS: ASPIRIN 81 MG ENTERIC TABLET PO (08:58)
[2024-04-23] MEDS: ATORVASTATIN 20 MG TABLET PO (08:58)
[2024-04-23] MEDS: DOXAZOSIN MESYLATE 1 MG TABLET PO (08:58)
[2024-04-23] MEDS: LOSARTAN POTASSIUM 50 MG TABLET PO (08:58)
[2024-04-23] MEDS: polyethylene glycoL 3350 17 GM POWD.PACK PO (08:58)
--- NOTE | 2024-04-23 11:02 | P.PNIM_ITS ---
Progress Note: A&P Assessment and Plan (1) Intermittent gross hematuria: Code(s): R31.0 - Gross hematuria Status: Acute Assessment and Plan: * Likely secondary to BPH according to Urology * Urology recommending outpatient cystoscopy at some point however they will follow him on an outpatient basis in 2 weeks to reassess his hematuria * Post void residual only showed 29 mL of urine in his bladder (2) Benign prostatic hyperplasia: Code(s): N40.0 - Benign prostatic hyperplasia without lower urinary tract symptoms Status: Acute Assessment and Plan: * Continue Cardura (3) Generalized weakness: Code(s): R53.1 - Weakness Status: Acute Assessment and Plan: * Continue PT and OT (4) Hypertension: Code(s): I10 - Essential (primary) hypertension Status: Acute Assessment and Plan: * Blood pressures ranging 174/76 to 218/87 * Currently takes losartan 50 mg daily * Will increase to losartan 50 mg b.i.d. and start hydralazine 12.5 mg q.i.d. (5) Dementia: Code(s): F03.90 - Unspecified dementia, unspecified severity, without behavioral disturbance, psychotic disturbance, mood disturbance, and anxiety Status: Acute Assessment and Plan: * Not on any home medications currently * He is alert oriented x1-2 * Power of disability attorney is his daughter Roseanne (6) Paresthesia of both lower extremities: Code(s): R20.2 - Paresthesia of skin Status: Acute Assessment and Plan: * Daughter reporting the patient sustained a fall about 1 month ago and was diagnosed with a sacral fracture in which he has been seeking physical therapy and occupational therapy for on an outpatient basis. Daughter states that he has had paresthesia down both legs as well as pain. * On assessment with the patient he denied any pain as I moved down his spine, he denied any pain over his hip joints. He denied any numbness or tingling at that time. However he does have underlying dementia. * Abdomen pelvis CT this admission showed a healing subacute transverse fracture of S4 the sacrum * We went ahead and got an MRI of the sacrum coccyx which showed a nondisplaced transverse fracture extending across S4 with additional nondisplaced oblique fracture extending across the posterior inferior aspect of the S3 segment, prostatomegaly. * Lumbar spine MRI was negative for any compression fracture however had multilevel degenerative disc disease/spinal canal stenosis with intravertebral foraminal narrowing and nerve root compression at multi levels. * Considering the paresthesia we went ahead and consulted Neurosurgery * Continue PT and OT (7) Closed sacral fracture: Code(s): S32.10XA - Unspecified fracture of sacrum, initial encounter for closed fracture Status: Acute Assessment and Plan: * See above * Continue PT and OT Plan I put patient as a full code as code status was not officially addressed and spoke with daughter Josiane. She is going to try to reach out to Roseanne (ERMA) as I was unable to get a hold of her specifically. Josiane agrees to keep him as a full code for now and will have Roseanne call with more information about patient wishes. Time Spent With Patient Time with patient: Greater than 35 minutes Subjective Date/time seen: 04/23/24 11:02 Interval history: Interval history: This is an 88-year-old male with BPH who presented to the hospital for evaluation of blood in the urine. Workup in the hospital included an abdomen and pelvic CT which was negative for any etiology for hematuria, showed healing subacute transverse fracture of S4 of the sacrum. Head CT showed stable moderate nonspecific cerebral white matter disease which likely represents chronic small vessel ischemic disease. Initial labs shown a normal white blood cell count of 5.0 otherwise unremarkable. A UA was obtained which showed 3+ urine blood, greater than 100 urine RBC, otherwise normal. Patient was given dose of hydralazine while in the ED. Urology was consulted and plans for outpatient cystoscopy at some point as this is likely due to his prostate. Subjective: Daughter at bedside with few concerns. She states that her father has been hypertensive on arrival and still remains hypertensive despite the losartan 50 mg tablet that he normally takes at home. She also had concerns that he has been in therapy for 3 weeks and still has numbness/tingling down his left leg that is unchanged from when he was here a month ago and diagnosed with the S4 fracture. Daughter states that he has not been hypertensive like this in the past and has not sought care elsewhere like his primary care physician for the hypertension. She was also requesting an MRI of his back. Labs and imaging reviewed as well as the EMR. Review of Systems Review of Systems: 12 systems were reviewed and are negativ e except for as per HPI. All systems reviewed & are unremarkable except as noted in HPI and below Constitutional: Constitutional: Reports as per HPI and Reports no additional constitutional complaints Eyes: Eyes: Reports as per HPI and Reports no additional eye complaints ENT: Reports system reviewed and no additional complaints, except as documented and Reports as per HPI Cardiovascular: Cardiovascular: Reports as per HPI and Reports no additional cardiovascular complaints Respiratory: Respiratory: Reports as per HPI and Reports no additional respiratory complaints Gastrointestinal: Gastrointestinal: Reports as per HPI and Reports no additional gastrointestinal complaints Genitourinary: Genitourinary: Reports no additional male genitourinary complaints and Reports as per HPI Musculoskeletal: Musculoskeletal: Reports no additional musculoskeletal complaints and Reports as per HPI Integumentary/Breasts: Skin/Breast: Reports system reviewed and no additional complaints, except as docu and Reports as per HPI Neurologic: Reports system reviewed and no additional complaints, except as documented and Reports as per HPI Psychiatric: Psychiatric: Reports no additional psychiatric complaints and Reports as per HPI Exam Narrative: General: In no acute distress, well nourished Head: atraumatic, no encephalopathy Eyes: EOMI, PERRLA, sclera clear ENT: moist mucous membranes, nasal passages clear Neck: supple, no JVD, no adenopathy, trachea midline Cardiac: Normal S1 and S2. Irregular rate, No murmur, gallops or friction rubs, peripheral pulses intact. Respiratory: Lungs clear to auscultation, no adventitious lung sounds, currently on room air Gastrointestinal: soft, non-distended, non-tender, normoactive bowel sounds. : voiding without difficulty. Extremities: moves all extremities well, no edema, good ROM, strength 5/5 Skin: clean, dry, intact. No wounds or lesions. Neuro: Alert and oriented x1, cranial nerves intact, no neuro deficits. Psych: normal mood, normal affect, interactive Objective Data Vital Signs Vital Signs: Vital Signs - 24 hr 04/22/24 11:15 04/22/24 12:15 04/22/24 14:06 Temperature Pulse Rate 68 68 75 Respiratory Rate 15 Blood Pressure 218/87 H 182/82 H 171/67 H Pulse Oximetry 97 96 100 Oxygen Delivery 04/22/24 15:17 04/22/24 15:04 04/22/24 18:05 Temperature 97.6 F 97.6 F Pulse Rate 69 83 Respiratory Rate 16 15 Blood Pressure 160/74 H 159/65 H 150/61 H Pulse Oximetry 96 96 Oxygen Delivery 04/22/24 18:28 04/22/24 19:41 04/23/24 04:29 Temperature 97.6 F 97.2 F L Pulse Rate 69 64 Respiratory Rate 20 20 Blood Pressure 170/88 H 174/76 H Pulse Oximetry 98 97 Oxygen Delivery Room Air 04/22/24 21:22 04/23/24 09:05 04/22/24 15:26 Temperature 97.6 F Pulse Rate 69 Respiratory Rate 16 Blood Pressure 160/74 H Pulse Oximetry 97 96 Oxygen Delivery Room Air Room Air Intake/Output Intake/Output: Intake & Output 04/20/24 04/21/24 04/22/24 04/23/24 23:59 23:59 23:59 23:59 Intake Total 0 780 Balance 0 780 Meds/Results Medications: Active Medications Generic Name Dose Route Start Last Admin Trade Name Freq PRN Reason Stop Dose Admin Acetaminophen 650 mg 04/22/24 16:07 Acetaminophen 325 Mg Tablet PO Q6H PRN Mild Pain (1-3) or Fever Albuterol 1 - 2 puff 04/22/24 22:22 Albuterol Sulfate (*Sp) Aerosol 1 Puff INHALATION Q4-6H PRN shortness of breath or wheezing Aspirin 81 mg 04/23/24 09:00 04/23/24 08:58 Aspirin 81 Mg Enteric Tablet PO 81 mg DAILY CONNIE Administration Atorvastatin Calcium 20 mg 04/23/24 09:00 04/23/24 08:58 Atorvastatin 20 Mg Tablet PO 20 mg DAILY CONNIE Administration Doxazosin Mesylate 1 mg 04/23/24 09:00 04/23/24 08:58 Doxazosin Mesylate 1 Mg Tablet PO 1 mg DAILY CONNIE Administration Ipratropium [place] 2 spray 04/22/24 22:25 Ipratropium Nasal [place] 0.03% 15 Ml Bottle NASAL TID PRN RHINITIS Losartan Potassium 50 mg 04/23/24 09:00 04/23/24 08:58 Losartan Potassium 50 Mg Tablet PO 50 mg DAILY CONNIE Administration Polyethylene Glycol 17 gm 04/23/24 09:00 04/23/24 08:58 Polyethylene Glycol 3350 17 Gm Powd.Pack PO 17 gm QAM CONNIE Administration Radiology Results: ITS Impressions Abdomen/Pelvis CT 04/22/24 12:11 IMPRESSION: 1. No specific etiology for hematuria. 2. Healing subacute transverse fracture of S4 of the sacrum. Head CT 04/22/24 13:29 IMPRESSION: 1. Stable moderate nonspecific cerebral white matter disease, which likely represents chronic small vessel ischemic disease. Labs Labs: Laboratory Results - last 24 hr 04/22/24 10:36 Urine Color Yellow Urine Appearance Clear Urine pH 7.0 Ur Specific [place] 1.016 Urine Protein Negative Urine Glucose (UA) Negative Urine Ketones Negative Ur Blood (Man) 3+ H Urine Nitrate Negative Urine Bilirubin Negative Urine Urobilinogen 1.0 Leukocyte Esterase Rfl Negative Urine RBC >100 H Urine WBC 0-5 Ur Squamous Epith Cells None seen Urine Bacteria None seen Urine Casts 0-2 Quality VTE Prophylaxis VTE prophylaxis: mechanical ordered
[2024-04-23] MEDS: IPRATROPIUM NASAL SPRAY 0.03% 15 ML BOTTLE 2 SPRAY NASAL (11:32)
[2024-04-23] MEDS: LOSARTAN POTASSIUM 50 MG TABLET BY MOUTH (14:03)
--- NOTE | 2024-04-23 15:03 | PCPTNOTE ---
Attempted PT evaluation, pt off unit for a test. Will follow.
[2024-04-23 16:00] VITALS: BP 168/74; PULSE 72; RESP 19; TEMP 36.4; O2SAT 96
[2024-04-23] MEDS: hydrALAZINE 12.5 MG TABLET PO ×2 (16:50→19:55)
[2024-04-23 19:57] VITALS: BP 165/65; PULSE 77; RESP 17; TEMP 36.5; O2SAT 97
[2024-04-24] VITALS: BP 169/71; PULSE 65; RESP 17; TEMP 36.7; O2SAT 95
[2024-04-24 03:33] VITALS: BP 161/77; PULSE 62; RESP 17; TEMP 36.9; O2SAT 96
[2024-04-24 08:00] VITALS: BP 138/93; PULSE 70; RESP 18; TEMP 36.2; O2SAT 96
[2024-04-24 08:32] LABS: Magnesium 2.1 mg/dL (1.6-2.3)
[2024-04-24 08:35] LABS: Alanine Aminotransferase 13 U/L (6-50); Alkaline Phosphatase 113 U/L (38-126); Anion Gap 6 mmol/L (4-12); Aspartate Amino Transferase 18 U/L (17-59); Bilirubin,Total 0.9 mg/dL (0.2-1.3); Blood Urea Nitrogen 25 mg/dL (9-20); Calcium 9.2 mg/dL (8.4-10.2); Carbon Dioxide 27 mmol/L (22-30); Chloride 102 mmol/L (98-107); Estimated CRCL calculation 39 ml/min; Estimated Glomerular Filt Rate > 60; Glucose 111 mg/dL (65-110); Potassium 4.7 mmol/L (3.4-5.0); Sodium 135 mmol/L (137-145)
[2024-04-24 08:38] LABS: Basophils Percent Auto 0.7 % (0.2-1.2); Eosinophils Absolute Auto 0.3 K/mm3 (0-0.3); Eosinophils Percent Auto 4.4 % (0-4.4); Hematocrit 46.7 % (42.0-52.0); Hemoglobin 15.6 g/dL (14.0-18.0); Immature Granulocyte Absolute 0.02 K/mm3 (0.00-0.031); Immature Granulocyte Percent A 0.4 % (0-0.5); Lymphocytes Absolute Auto 1.08 K/mm3 (0.9-3.2); Mean Corpuscular HGB Conc 33.4 g/dl (32-36); Mean Corpuscular Hemoglobin 31.6 pg (26-34); Mean Corpuscular Volume 94.5 fl (80-100); Mean Platelet Volume 10.3 fl (7.4-10.4); Monocytes Absolute Auto 0.5 K/mm3 (0.1-0.6); Monocytes Percent Auto 7.9 % (2.6-8.5); Neutrophils Absolute Auto 3.8 K/mm3 (1.3-6.7); Neutrophils Percent Auto 67.6 % (45.5-73.1); Platelet Count Result 167 k/mm3 (150-375); Red Blood Count 4.94 M/mm3 (4.6-6.20); Red Cell Distribution Width 13.6 % (11.5-14.5); White Blood Count 5.7 K/mm3 (4.5-10.0)
[2024-04-24] MEDS: LOSARTAN POTASSIUM 50 MG TABLET PO (08:43)
[2024-04-24] MEDS: polyethylene glycoL 3350 17 GM POWD.PACK PO (08:43)
[2024-04-24] MEDS: ASPIRIN 81 MG ENTERIC TABLET PO (08:43)
[2024-04-24] MEDS: DOXAZOSIN MESYLATE 1 MG TABLET PO (08:43)
[2024-04-24] MEDS: hydrALAZINE 12.5 MG TABLET PO ×2 (08:43→12:07)
[2024-04-24] MEDS: ATORVASTATIN 20 MG TABLET PO (08:43)
[2024-04-24 11:48] VITALS: BP 117/75; PULSE 78; RESP 18; TEMP 36.4; O2SAT 98
[2024-04-24 12:00] VITALS: BP 117/75; PULSE 78; RESP 16; TEMP 36.4; O2SAT 98
--- NOTE | 2024-04-24 12:03 | P.PNIM_ITS ---
Progress Note: A&P Assessment and Plan (1) Intermittent gross hematuria: Code(s): R31.0 - Gross hematuria Status: Acute Assessment and Plan: * Likely secondary to BPH according to Urology * Urology recommending outpatient cystoscopy at some point however they will follow him on an outpatient basis in 2 weeks to reassess his hematuria * Post void residual only showed 29 mL of urine in his bladder * Denies seeing blood in the urine today. (2) Benign prostatic hyperplasia: Code(s): N40.0 - Benign prostatic hyperplasia without lower urinary tract symptoms Status: Acute Assessment and Plan: * Continue Cardura (3) Generalized weakness: Code(s): R53.1 - Weakness Status: Acute Assessment and Plan: * Continue PT and OT (4) Hypertension: Code(s): I10 - Essential (primary) hypertension Status: Acute Assessment and Plan: * Blood pressures improved 117/75. * Improved with increase to losartan 50 mg b.i.d. and hydralazine 12.5 mg q.i.d. (5) Dementia: Code(s): F03.90 - Unspecified dementia, unspecified severity, without behavioral disturbance, psychotic disturbance, mood disturbance, and anxiety Status: Acute Assessment and Plan: * Not on any home medications currently * He is alert oriented x1-2 * Power of employment law attorney is his daughter Roseanne (6) Paresthesia of both lower extremities: Code(s): R20.2 - Paresthesia of skin Status: Acute Assessment and Plan: * Daughter reporting the patient sustained a fall about 1 month ago and was diagnosed with a sacral fracture in which he has been seeking physical therapy and occupational therapy for on an outpatient basis. Daughter states that he has had paresthesia down both legs as well as pain. * On assessment with the patient he denied any pain as I moved down his spine, he denied any pain over his hip joints. He denied any numbness or tingling at that time. However he does have underlying dementia. * Abdomen pelvis CT this admission showed a healing subacute transverse fracture of S4 the sacrum * We went ahead and got an MRI of the sacrum coccyx which showed a nondisplaced transverse fracture extending across S4 with additional nondisplaced oblique fracture extending across the posterior inferior aspect of the S3 segment, prostatomegaly. * Lumbar spine MRI was negative for any compression fracture however had multilevel degenerative disc disease/spinal canal stenosis with intravertebral foraminal narrowing and nerve root compression at multi levels. * Considering the paresthesia we went ahead and consulted Neurosurgery, neurosurgery deferred to orthopedics and orthopedic consult placed. * Continue PT and OT (7) Closed sacral fracture: Code(s): S32.10XA - Unspecified fracture of sacrum, initial encounter for closed fracture Status: Acute Assessment and Plan: * See above * Continue PT and OT Plan I put patient as a full code as code status was not officially addressed and spoke with daughter Josiane. She is going to try to reach out to Roseanne (ERMA) as I was unable to get a hold of her specifically. Josiane agrees to keep him as a full code for now and will have Roseanne call with more information about patient wishes. Subjective Date/time seen: 04/24/24 12:03 Interval history: Patient sitting up in chair. Patient denies chest pain, palpitations, shortness of breath, numbness, or tingling at present. Nurse reports that patient is still reporting to him the numbness and tingling. Review of Systems Review of Systems: All systems reviewed & are unremarkable except as noted in HPI and below Exam Const: General: comfortable and no acute distress Eyes: Sclera: sclerae normal Resp: Effort & Inspection: normal respiratory effort Auscultation: clear to auscultation bilaterally Cardio: Rate: regular rate Rhythm: regular rhythm GI: GI Palp: Yes Soft to palpation Auscultation: normal bowel sounds Other: Last BM 04/23/24. : Other: Voiding without difficulty. Skin: General skin exam: no rashes or lesions noted Extrem: General: normal to inspection Psych: Affect: normal affect Objective Data Vital Signs Vital Signs: Vital Signs - 24 hr 04/23/24 16:00 04/23/24 19:57 04/24/24 00:00 Temperature 97.6 F 97.7 F 98.1 F Pulse Rate 72 77 65 Respiratory Rate 19 17 17 Blood Pressure 168/74 H 165/65 H 169/71 H Pulse Oximetry 96 97 95 Oxygen Delivery 04/24/24 03:33 04/24/24 08:00 04/24/24 08:56 Temperature 98.4 F 97.2 F L Pulse Rate 62 70 Respiratory Rate 17 18 Blood Pressure 161/77 H 138/93 H Pulse Oximetry 96 96 Oxygen Delivery Room Air 04/24/24 11:48 Temperature 97.5 F L Pulse Rate 78 Respiratory Rate 18 Blood Pressure 117/75 Pulse Oximetry 98 Oxygen Delivery Intake/Output Intake/Output: Intake & Output 04/21/24 04/22/24 04/23/24 04/24/24 23:59 23:59 23:59 23:59 Intake Total 0 1510 390 Output Total 400 700 Balance 0 1110 -310 Meds/Results Medications: Active Medications Generic Name Dose Route Start Last Admin Trade Name Freq PRN Reason Stop Dose Admin Acetaminophen 650 mg 04/22/24 16:07 Acetaminophen 325 Mg Tablet PO Q6H PRN Mild Pain (1-3) or Fever Albuterol 1 - 2 puff 04/22/24 22:22 Albuterol Sulfate (*Sp) Aerosol 1 Puff INHALATION Q4-6H PRN shortness of breath or wheezing Aspirin 81 mg 04/23/24 09:00 04/24/24 08:43 Aspirin 81 Mg Enteric Tablet PO 81 mg DAILY CONNIE Administration Atorvastatin Calcium 20 mg 04/23/24 09:00 04/24/24 08:43 Atorvastatin 20 Mg Tablet PO 20 mg DAILY CONNIE Administration Doxazosin Mesylate 1 mg 04/23/24 09:00 04/24/24 08:43 Doxazosin Mesylate 1 Mg Tablet PO 1 mg DAILY CONNIE Administration Hydralazine HCl 12.5 mg 04/23/24 17:00 04/24/24 08:43 Hydralazine 12.5 Mg Tablet PO 12.5 mg QID CONNIE Administration Ipratropium [place] 2 spray 04/22/24 22:25 04/23/24 11:32 Ipratropium Nasal [place] 0.03% 15 Ml Bottle NASAL 2 spray TID PRN Administration RHINITIS Losartan Potassium 50 mg 04/24/24 09:00 04/24/24 08:43 Losartan Potassium 50 Mg Tablet PO 50 mg BID CONNIE Administration Polyethylene Glycol 17 gm 04/23/24 09:00 04/24/24 08:43 Polyethylene Glycol 3350 17 Gm Powd.Pack PO 17 gm QAM CONNIE Administration Radiology Results: ITS Impressions Abdomen/Pelvis CT 04/22/24 12:11 IMPRESSION: 1. No specific etiology for hematuria. 2. Healing subacute transverse fracture of S4 of the sacrum. Head CT 04/22/24 13:29 IMPRESSION: 1. Stable moderate nonspecific cerebral white matter disease, which likely represents chronic small vessel ischemic disease. Sacrum/Coccyx MRI 04/23/24 15:44 IMPRESSION: 1. Nondisplaced transverse fracture extending across S4 with additional nondi splaced oblique fracture extending across the posterior inferior aspect of the S3 segment. 2. Prostatomegaly. Lumbar Spine MRI 04/23/24 16:09 IMPRESSION: No compression fracture. Multilevel degenerative disc disease or spinal canal stenosis, intervertebral foraminal narrowing and nerve root compression. Labs Labs: Laboratory Results - last 24 hr 04/24/24 08:02 WBC 5.7 RBC 4.94 Hgb 15.6 Hct 46.7 MCV 94.5 MCH 31.6 MCHC 33.4 RDW 13.6 Plt Count 167 MPV 10.3 Immature Gran % (Auto) 0.4 Neut % (Auto) 67.6 Lymph % (Auto) 19.0 [place] % (Auto) 7.9 Eos % (Auto) 4.4 Baso % (Auto) 0.7 Lymph # (Auto) 1.08 [place] # (Auto) 0.5 Eos # (Auto) 0.3 Baso # (Auto) 0.0 Abs Immat Gran (auto) 0.02 Absolute Neuts (auto) 3.8 Absolute Nucleated RBC 0.000 Nucleated RBC % 0.0 Sodium 135 L Potassium 4.7 Chloride 102 Carbon Dioxide 27 Anion Gap 6 BUN 25 H Creatinine 1.10 Estim Creat Clear Calc 39 Estimated GFR > 60 Glucose 111 H Calcium 9.2 Magnesium 2.1 Total Bilirubin 0.9 AST 18 ALT 13 Alkaline Phosphatase 113 Total Protein 7.0 Albumin 4.0 Quality VTE Prophylaxis VTE prophylaxis: mechanical ordered
--- NOTE | 2024-04-24 13:07 | P.CONNS_ITS ---
Assessment and Plan Assessment and plan (1) Closed sacral fracture: Code(s): S32.10XA - Unspecified fracture of sacrum, initial encounter for closed fracture Status: Acute Plan I was contacted regarding a consult request for a sacral fracture. According to the notes, he was already aware of this diagnosis and was found to have the fracture a month ago after a fall. He has been receiving therapy as an outpatient. On review of the patient's imaging, he has a healing/subacute fracture involving the S3 and S4 segments of his sacrum. I notified the hospitalist that I do not treat sacral fractures of his nature and that these have been evaluated by Orthopedics in my experience. I do not anticipate that he would need any specific treatment for this, particularly since it was already identified a month ago. If there are further questions, I would recommend contacting Orthopedics or the provider who is already treating him for this fracture. Consult date: 04/24/24 HPI: Noé Davila is a 88 year old male [facility] Past Medical History Medical History Anemia Anxiety Atrial fibrillation Benign prostatic hyperplasia Chronic obstructive pulmonary disease Constipation Dementia Depression Hyperlipidemia Hypertension Peripheral vascular disease Seasonal allergies Surgical History Surgical History History of cholecystectomy Status post peripheral artery angioplasty with insertion of stent Family History Family History Other Unknown family medical history Social History Social History Social History: Healthcare power of mortgage servicing specialist: Roseanne Noguera. Code status: Smoking packs per day: 1 Smoking cigarettes per day: 20.0 Smoking status: Former smoker Tobacco type: cigarettes Smoking end date: 07/02/08 Alcohol intake: never Drinks per week: 2 Substance use: never Substance use type: does not use Do You Feel Safe in your Home?: Yes Lack of Transportation: No Lack of Food: Never True Current Housing: I Have Housing Concerned About Future Housing: No Difficulty Paying Gas/Electric Bills: No Difficulty Paying for Meds: No Currently Unemployed: No Education: Grade School Difficulty w/ Childcare or Family Care: No Spiritual care concerns: No Meds Home Medications and Allergies Home Medications Medication Instructions Recorded Confirmed Type aspirin 81 mg tablet,delayed 81 mg PO DAILY 12/12/21 04/22/24 History release losartan 50 mg tablet 50 mg PO DAILY #30 tabs 12/01/23 04/22/24 Rx albuterol sulfate 90 mcg/actuation 1 - 2 inh inhalation Q4-6H PRN 12/10/23 04/22/24 Rx aerosol inhaler shortness of breath or wheezing #8.5 grams ipratropium bromide 21 mcg (0.03 2 spray intranasal .qd-tid #30 mL 02/20/24 04/22/24 Rx %) nasal spray atorvastatin 20 mg tablet 20 mg PO DAILY #30 tabs 03/12/24 04/22/24 Rx polyethylene glycol 3350 17 gram 17 g PO QAM #7 ea 03/15/24 04/22/24 Rx oral powder packet (Miralax) doxazosin 1 mg tablet 1 mg PO DAILY 04/22/24 04/22/24 History Allergies Allergy/AdvReac Type Severity Reaction Status Date / Time No Known Allergies Allergy Verified 04/22/24 08:10 Vital Signs Vital Signs - 24 hr 04/23/24 16:00 04/23/24 19:57 04/24/24 00:00 Temperature 97.6 F 97.7 F 98.1 F Pulse Rate 72 77 65 Respiratory Rate 19 17 17 Blood Pressure 168/74 H 165/65 H 169/71 H Pulse Oximetry 96 97 95 Oxygen Delivery 04/24/24 03:33 04/24/24 08:00 04/24/24 08:56 Temperature 98.4 F 97.2 F L Pulse Rate 62 70 Respiratory Rate 17 18 Blood Pressure 161/77 H 138/93 H Pulse Oximetry 96 96 Oxygen Delivery Room Air 04/24/24 11:48 Temperature 97.5 F L Pulse Rate 78 Respiratory Rate 18 Blood Pressure 117/75 Pulse Oximetry 98 Oxygen Delivery Results Labs 04/24/24 08:02 04/24/24 08:02 Labs: Short CBC 04/24/24 Range/Units 08:02 WBC 5.7 (4.5-10.0) K/mm3 Hgb 15.6 (14.0-18.0) g/dL Hct 46.7 (42.0-52.0) % Plt Count 167 (150-375) k/mm3 BMP 04/24/24 08:02 Sodium 135 L Potassium 4.7 Chloride 102 Carbon Dioxide 27 BUN 25 H Creatinine 1.10 Glucose 111 H Calcium 9.2 Liver Function 04/24/24 Range/Units 08:02 Total Bilirubin 0.9 (0.2-1.3) mg/dL AST 18 (17-59) U/L ALT 13 (6-50) U/L Alkaline Phosphatase 113 (38-126) U/L Albumin 4.0 (3.5-5.1) g/dL
--- NOTE | 2024-04-24 14:51 | P.CONOP_ITS ---
Patient seen and examined. Medical records and orthopedic consultation note reviewed. 88-year-old status post fall approximately 6 weeks ago. Found to have sacral fracture at S4 level. No pain at this time. Does have intermittent numbness and weakness in bilateral legs. New symptoms since fall. On exam neurologically intact lower extremities, bilateral. Good strength noted. Ambulating well with use of walker. Fracture appears healed. Continue with outpatient physical therapy when patient is discharged. No further recommendations or treatment indicated. Discussed with patient and his daughter. -Dr. Trimble Assessment and Plan Assessment and plan (1) Closed sacral fracture: Qualifiers: Encounter type: sequela Zone of sacrum fracture: unspecified portion of sacrum Qualified Code(s): S32.10XS - Unspecified fracture of sacrum, sequela Code(s): S32.10XA - Unspecified fracture of sacrum, initial encounter for closed fracture Status: Acute Assessment and Plan: sacral MRI reveals a nondisplaced transverse fracture extending across S4 with additional nondisplaced oblique fracture extending across the posterior inferior aspect of S3 segment. Mild away of bilateral hip joints noted as well as prostatomegaly. Per the patient medical records, this fracture is chronic in nature. He has been going to physical therapy. He is ambulating without severe pain. He is using a walker. He is able to sit without pain. He did notice an onset of bilateral lower extremity numbness and tingling which is intermittent in nature since his fall. Lumbar spine MRI obtained. See below. Continue conservative treatment for sacral fractures. Weightbearing as tolerated. Physical therapy. Fall precautions. Patient may follow-up in the orthopedic clinic as an outpatient if needed. No surgical indication at this time. Thank you for allowing us to assist in the care this patient. (2) Lumbar spondylosis: Code(s): M47.816 - Spondylosis without myelopathy or radiculopathy, lumbar region Status: Acute Assessment and Plan: MRI of the lumbar spine reveals multilevel degenerative disc disease, spinal canal stenosis, intervertebral foraminal narrowing and nerve root compression. no acute fractures. On exam, patient is neurovascularly intact bilateral lower extremities. Per patient and family, his intermittent numbness and tingling is new but intermittent in nature. Recommended follow-up with pain management as an outpatient for possible lumbar spine injections pending healing of the sacral fractures. We will provide patient with pain management referral upon discharge. Continue PT and OT with weight-bearing as tolerated. No surgical intervention at this time. See recommendations from Neurosurgery as well. Thank you for allowing us to assist in the care of this patient. (3) Lumbar radiculopathy: Code(s): M54.16 - Radiculopathy, lumbar region Status: Acute Plan Reviewed history, exam, radiographs and current labs with attending MD and covering surgeon, Dr. Trimble, who agrees with current plan as indicated above. No further recommendations from Dr. Trimble at this time. History of Present Illness HPI Consult date: 04/24/24 Chief complaint: FTT/Gen Weakness/Hematuria Narrative: Orthopedic consult for this 88 year old male for nondisplaced fractures of S4 and S3 which are chronic in nature and new onset, intermittent lower extremity numbness/tingling. History, exam and radiographs reviewed with the patient and family. Neurosurgery consulted as well and deferred treatment to orthopedics. P atient denies difficulty with ambulation and/or pain control. Working well with PT on an outpatient basis. Is not currently following with orthopedics. Admitted for weakness and hematuria. Review of Systems Review of Systems: All systems reviewed & are unremarkable except as noted in HPI and below PMFSH Past Medical History Medical History (Updated 04/24/24 @ 15:40 by IVELISSE Clark) Anemia Anxiety Atrial fibrillation Benign prostatic hyperplasia Chronic obstructive pulmonary disease Constipation Dementia Depression Hyperlipidemia Hypertension Lumbar radiculopathy Lumbar spondylosis Peripheral vascular disease Seasonal allergies Surgical History Surgical History History of cholecystectomy Status post peripheral artery angioplasty with insertion of stent Family History Family History Other Unknown family medical history Social History Social History Social History: Healthcare power of blocklayer: Roseanne Noguera. Code status: Smoking packs per day: 1 Smoking cigarettes per day: 20.0 Smoking status: Former smoker Tobacco type: cigarettes Smoking end date: 07/02/08 Alcohol intake: never Drinks per week: 2 Substance use: never Substance use type: does not use Do You Feel Safe in your Home?: Yes Lack of Transportation: No Lack of Food: Never True Current Housing: I Have Housing Concerned About Future Housing: No Difficulty Paying Gas/Electric Bills: No Difficulty Paying for Meds: No Currently Unemployed: No Education: Grade School Difficulty w/ Childcare or Family Care: No Spiritual care concerns: No Meds Home Medications and Allergies Home Medications Medication Instructions Recorded Confirmed Type aspirin 81 mg tablet,delayed 81 mg PO DAILY 12/12/21 04/22/24 History release losartan 50 mg tablet 50 mg PO DAILY #30 tabs 12/01/23 04/22/24 Rx albuterol sulfate 90 mcg/actuation 1 - 2 inh inhalation Q4-6H PRN 12/10/23 04/22/24 Rx aerosol inhaler shortness of breath or wheezing #8.5 grams ipratropium bromide 21 mcg (0.03 2 spray intranasal .qd-tid #30 mL 02/20/24 04/22/24 Rx %) nasal spray atorvastatin 20 mg tablet 20 mg PO DAILY #30 tabs 03/12/24 04/22/24 Rx polyethylene glycol 3350 17 gram 17 g PO QAM #7 ea 03/15/24 04/22/24 Rx oral powder packet (Miralax) doxazosin 1 mg tablet 1 mg PO DAILY 04/22/24 04/22/24 History Allergies Allergy/AdvReac Type Severity Reaction Status Date / Time No Known Allergies Allergy Verified 04/22/24 08:10 Vital Signs Vital Signs - 24 hr 04/23/24 16:00 04/23/24 19:57 04/24/24 00:00 Temperature 36.4 C 36.5 C 36.7 C Pulse Rate 72 77 65 Respiratory Rate 19 17 17 Blood Pressure 168/74 H 165/65 H 169/71 H Pulse Oximetry 96 97 95 Oxygen Delivery 04/24/24 03:33 04/24/24 08:00 04/24/24 08:56 Temperature 36.9 C 36.2 C L Pulse Rate 62 70 Respiratory Rate 17 18 Blood Pressure 161/77 H 138/93 H Pulse Oximetry 96 96 Oxygen Delivery Room Air 04/24/24 11:48 04/24/24 12:00 Temperature 36.4 C L 36.4 C L Pulse Rate 78 78 Respiratory Rate 18 16 Blood Pressure 117/75 117/75 Pulse Oximetry 98 98 Oxygen Delivery Exam Const: General: comfortable and no acute distress HENMT: Mouth: Yes moist mucous membranes Eyes: General: appearance normal, both eyes and all related structures Neck: Neck: supple and no JVD Resp: Effort & Inspection: normal respiratory effort Cardio: Rate: regular rate Rhythm: regular rhythm GI: Inspection: non-distended GI Palp: Yes Soft to palpation and No Tenderness to palpation present (GI) Back/Spine/Pelvis: Sacrum: tenderness Neuro: General: gait normal Cognition (Neuro): normal cognition Speech: normal speech Extrem: Right lower extremity: hip/thigh Details: normal to inspection and normal ROM; no tenderness and no swelling, knee Details: normal to inspection; no tenderness, lower leg Details: normal to inspection, palpable cord and no edema; no tenderness and no localized swelling, ankle Details: normal to inspection and normal ROM and foot Details: vascular exam Details: dorsalis pedis pulse present Left lower extremity: hip/thigh Details: normal to inspection and normal ROM; no tenderness, knee Details: normal to inspection; no tenderness, lower leg Details: palpable cord and no edema; no tenderness and no localized swelling, ankle Details: normal to inspection and normal ROM and foot Details: vascular exam Details: dorsalis pedis pulse present Psych: Mental Status: mental status grossly normal Affect: normal affect Results Labs 04/24/24 08:02 04/24/24 08:02 Labs: Abnormal lab results 04/24/24 Range/Units 08:02 Sodium 135 L (137-145) mmol/L BUN 25 H (9-20) mg/dL Glucose 111 H (65-110) mg/dL H & H 04/22/24 04/24/24 Range/Units 08:37 08:02 Hgb 14.5 15.6 (14.0-18.0) g/dL Hct 43.6 46.7 (42.0-52.0) % Coagulation 04/22/24 Range/Units 08:37 INR 1.0 All other labs normal.
--- NOTE | 2024-04-24 15:59 | P.DS_ITS ---
DS: Admitting Diagnosis Discharge Date 04/24/2024 Admitting Diagnosis Blood in urine and weakness. DS: Discharge Diagnosis Discharge Diagnosis (1) Intermittent gross hematuria: Code(s): R31.0 - Gross hematuria Status: Acute (2) BPPV (benign paroxysmal positional vertigo): Code(s): H81.10 - Benign paroxysmal vertigo, unspecified ear Status: Acute (3) Generalized weakness: Code(s): R53.1 - Weakness Status: Acute (4) Lumbar radiculopathy: Code(s): M54.16 - Radiculopathy, lumbar region Status: Acute (5) Lumbar spondylosis: Code(s): M47.816 - Spondylosis without myelopathy or radiculopathy, lumbar region Status: Acute (6) Hypertension: Code(s): I10 - Essential (primary) hypertension Status: Acute (7) Paresthesia of both lower extremities: Code(s): R20.2 - Paresthesia of skin Status: Acute (8) Dementia: Code(s): F03.90 - Unspecified dementia, unspecified severity, without behavioral disturbance, psychotic disturbance, mood disturbance, and anxiety Status: Acute DS: Summary Hospital Course Hospital Course: This is an 88-year-old male with BPH who presented to the hospital for evaluation of blood in the urine. Workup in the hospital included an abdomen and pelvic CT which was negative for any etiology for hematuria, showed healing subacute transverse fracture of S4 of the sacrum. Head CT showed stable moderate nonspecific cerebral white matter disease which likely represents chronic small vessel ischemic disease. Initial labs shown a normal white blood cell count of 5.0 otherwise unremarkable. A UA was obtained which showed 3+ urine blood, greater than 100 urine RBC, otherwise normal. Patient was given dose of hydralazine while in the ED. Urology was consulted and plans for outpatient cystoscopy at some point outpatient as this is likely due to his prostate. Sacral MRI showed:IMPRESSION: 1. Nondisplaced transverse fracture extending across S4 with additional nondisplaced oblique fracture extending across the posterior inferior aspect of the S3 segment. 2. Prostatomegaly. Lumbar MRI showed: IMPRESSION: No compression fracture. Multilevel degenerative disc disease or spinal canal stenosis, intervertebral foraminal narrowing and nerve root compression. Orthopedic consulted and recommended to continue conservative treatment for sacral fractures. Weightbearing as tolerated. Physical therapy. Fall precautions. Patient may follow-up in the orthopedic clinic as an outpatient if needed. No surgical indication at this time. Time Spent with Patient Time attestation: Total time spent providing and/or coordinating discharge services: Time spent: Greater than 30 minutes Exam Narrative: Const: General: comfortab le and no acute di stress Eyes: Sclera: sclerae no rmal Resp: Effort & Inspectio n: normal respirat ory effort Auscul tation: clear to a uscultation bilate rally Cardio: Rate: regular rate Rhythm: regular rhythm GI: GI Palp: Yes Soft to palpation Ausc ultation: normal b owel sounds Other : Last BM . : Other: Voiding w ithout difficulty. Skin: General skin exam: no rashes or lesi ons noted Extrem: General: normal to inspection Psych: Affect: normal aff ect DS: Data Data Completed and Pending Labs on day of discharge: Labs from last 24 hours 04/24/24 08:02 WBC 5.7 RBC 4.94 Hgb 15.6 Hct 46.7 MCV 94.5 MCH 31.6 MCHC 33.4 RDW 13.6 Plt Count 167 MPV 10.3 Immature Gran % (Auto) 0.4 Neut % (Auto) 67.6 Lymph % (Auto) 19.0 [place] % (Auto) 7.9 Eos % (Auto) 4.4 Baso % (Auto) 0.7 Lymph # (Auto) 1.08 [place] # (Auto) 0.5 Eos # (Auto) 0.3 Baso # (Auto) 0.0 Abs Immat Gran (auto) 0.02 Absolute Neuts (auto) 3.8 Absolute Nucleated RBC 0.000 Nucleated RBC % 0.0 Sodium 135 L Potassium 4.7 Chloride 102 Carbon Dioxide 27 Anion Gap 6 BUN 25 H Creatinine 1.10 Estim Creat Clear Calc 39 Estimated GFR > 60 Glucose 111 H Calcium 9.2 Magnesium 2.1 Total Bilirubin 0.9 AST 18 ALT 13 Alkaline Phosphatase 113 Total Protein 7.0 Albumin 4.0 Discharge Plan Discharge Attending physician on discharge: Ayden Fitzpatrick Consulting providers: Toñito Burrows; Bindu Fried; Juan Trimble Discharging Clinician: Tabatha Gillette Anticipated Discharge Date/Time: 04/24/24 16:00 Patient Disposition: Home, Self-Care Activity: may shower Diet: regular Discharge Instructions: * Report to provider any blood in urine. * Use wheeled walker and continue outpatient physical therapy. Patient Instructions: Hematuria (GEN), Weakness (DC) Stand Alone Forms: General Discharge Information Follow-up/Referrals: Mely Gupta, TAX REPRESENTATIVE [Primary Care Provider] - 1 Week Discharge Medications: New hydralazine 10 mg tablet 10 mg PO BID Qty: 60 0RF Continued ipratropium bromide 21 mcg (0.03 %) spray,non-aerosol 2 spray intranasal .qd-tid Qty: 30 1RF Rx Instructions: administer into each nostril. Aim back/up/out aspirin 81 mg tablet,delayed release (DR/EC) 81 mg PO DAILY polyethylene glycol 3350 [Miralax] 17 gram Powder In Packet 17 g PO QAM Qty: 7 0RF doxazosin 1 mg tablet 1 mg PO DAILY losartan 50 mg tablet 50 mg PO DAILY Qty: 30 11RF Hold Instructions: .Provider Order albuterol sulfate 90 mcg/actuation HFA aerosol inhaler 1 - 2 inh inhalation Q4-6H PRN (Reason: shortness of breath or wheezing) Qty: 8.5 2RF atorvastatin 20 mg tablet 20 mg PO DAILY Qty: 30 11RF Date of admission: 04/22/24 14:22 Primary Care Provider: Mely Gupta Admitting Provider: Ayden Fitzpatrick Attending physician on admission: Ronit Milligan Condition: Stable Hospitalist MIPS Heart Failure (Exclusion) Patient has history of Heart Transplant or Left Ventricular Assistive Device?: No IF YES, STOP HERE Heart Failure (Qualifier) Patient has current or prior documentation of LVEF less than or equal to 40%, or mod/servere depressed LVSF?: No IF NO, STOP HERE
== END 2024-04-24 16:20 | disposition home or self-care (01) ==
LOC: ANHED 14:14 → ANH2MED 14:43
PROVIDERS: Nurse Practitioner Family; Admitting Provider General Practice; Emergency Provider Emergency Medicine; PCP Nurse Practitioner Family; Visit Provider Nurse Practitioner Acute Care
DX: R31.0 Gross hematuria (principal); R53.1 Weakness; H81.10 Benign paroxysmal vertigo, unspecified ear; R62.7 Adult failure to thrive; Z68.20 Body mass index [BMI] 20.0-20.9, adult; N40.0 Benign prostatic hyperplasia without lower urinary tract symptoms; M47.26 Other spondylosis with radiculopathy, lumbar region; S32.10XD Unspecified fracture of sacrum, subsequent encounter for fracture with routine healing; W19.XXXD Unspecified fall, subsequent encounter; F03.90 Unspecified dementia, unspecified severity, without behavioral disturbance, psychotic disturbance, mood disturbance, and anxiety; I48.20 Chronic atrial fibrillation, unspecified; I73.9 Peripheral vascular disease, unspecified; I10 Essential (primary) hypertension; E78.5 Hyperlipidemia, unspecified; J44.9 Chronic obstructive pulmonary disease, unspecified; F32.9 Major depressive disorder, single episode, unspecified; F41.9 Anxiety disorder, unspecified; Z87.891 Personal history of nicotine dependence; Z79.51 Long term (current) use of inhaled steroids; Z79.82 Long term (current) use of aspirin; Z79.899 Other long term (current) drug therapy
CPT/HCPCS: 36415; 70450; 72148; 72195; 74178; 80053; 81001; 83735; 85025; 85610; 85730; 96374; 96376; 97161; 97165; 99285; A9270; G0378; J0360; Q9967

== ENCOUNTER 2024-07-02 03:45 | Emergency (ER) | payer OTHER, SELFPAY ==
--- NOTE | ~2024-07-02 | XR_ITS ---
EXAMINATION: XR chest 2V DATE: 07/02/2024 13:00 INDICATION: Phlegm in the throat. 1 day of dry cough. TECHNIQUE: frontal and lateral views of the chest were obtained. COMPARISON: Chest radiograph dated 03/13/24 FINDINGS: Mild hyperexpansion of lungs with flattening of the diaphragm and increased retrosternal clear space suggestive but not diagnostic of COPD. Calcified nodule at the left lower lung zone consistent with o ld granulomatous disease. The cardiomediastinal silhouette is normal. Moderate thoracic spondylosis. IMPRESSION: 1. Appearance suggestive but not diagnostic of COPD. No acute cardiopulmonary disease. Reviewed, dictated and finalized at location A. [address] SUPER[employer] IMPRESSION: 1. Appearance suggestive but not diagnostic of COPD. No acute cardiopulmonary d isease.
[2024-07-02 04:08] VITALS: BP 171/64; PULSE 81; RESP 17; TEMP 36.3; O2SAT 95
[2024-07-02 10:13] VITALS: BP 129/67; PULSE 81; RESP 18; TEMP 36.4; O2SAT 94
[2024-07-02 11:56] VITALS: BP 121/56; PULSE 72; RESP 20; O2SAT 95
[2024-07-02 12:16] VITALS: RESP 20; O2SAT 100
[2024-07-02 12:24] LABS: Add Urine Microscopic? YES; Appearance Urine Cloudy (Clear); Bacteria Urine None Seen /hpf; Bilirubin Urine Negative (Negative); Blood Urine Negative (Negative); Color Urine Yellow (Yellow); Glucose Urine UA Negative (Negative); Ketones Urine Trace mg/dL (Negative); Leukocyte Esterase Ur 1+ LEU/UL (Negative); Nitrate Urine Negative (Negative); Non Pathogenic Casts 0-2; Protein Urine Negative (Negative); RBC Urine 0-2 /hpf (0-2); Specific Grav Ur 1.021 (1.001-1.035); Squamous Epithelial Cell Urine None Seen /hpf (Few); WBC Urine 21-50 /hpf (0-3); pH Urine 5.5 (5.0-9.0)
[2024-07-02 13:09] LABS: Influenza A QL RT-PCR Negative (Negative); Influenza B QL RT-PCR Negative (Negative); RSV RNA, RT-PCR Negative (Negative); SARS-CoV-2 RNA PCR Negative (Negative)
--- NOTE | 2024-07-02 13:26 | ED.GENADULT ---
HPI - General Adult General Chief complaint: Unspecified Stated complaint: phlegm stuck in throat Time Seen by Provider: 07/02/24 12:09 History of Present Illness HPI narrative: patient is an 88-year-old male who presents ER with reports of cough. Began today. Associated with sensation that there is phlegm in the back of his throat. No difficulty breathing. No chest pain. also has the same illness. cough is productive. Related Data Home Medications ?Medication ?Instructions ?Recorded ?Confirmed ?Last Taken ?Type aspirin 81 mg tablet,delayed 81 mg PO DAILY 12/12/21 04/22/24 02/16/22 History release Allergies Allergy/AdvReac Type Severity Reaction Status Date / Time No Known Allergies Allergy Verified 07/02/24 04:08 Review of Systems Review of Systems: All systems reviewed & are unremarkable except as noted in HPI and below Constitutional: Constitutional: Reports no additional constitutional complaints ENT: Reports nasal congestion, Reports post nasal drip and Denies sinus pain Cardiovascular: Cardiovascular: Reports no additional cardiovascular complaints Respiratory: Respiratory: Reports no additional respiratory complaints Gastrointestinal: Gastrointestinal: Reports no additional gastrointestinal complaints [facility] Past Medical History Medical History (Updated 07/02/24 @ 14:02 by Jet Langston MD) Lumbar radiculopathy Lumbar spondylosis Peripheral vascular disease Chronic obstructive pulmonary disease Benign prostatic hyperplasia Depression Seasonal allergies Anemia Hypertension Atrial fibrillation Anxiety Constipation Dementia Hyperlipidemia Surgical History Surgical History Status post peripheral artery angioplasty with insertion of stent History of cholecystectomy Family History Family History Other Unknown family medical history Social History Social History Social History: Healthcare power of state attorney: Roseanne Noguera. Code status: Smoking packs per day: 1 Smoking cigarettes per day: 20.0 Smoking status: Former smoker Tobacco type: cigarettes Smoking end date: 07/02/08 Alcohol intake: never Drinks per week: 2 Substance use: never Substance use type: does not use Do You Feel Safe in your Home?: Yes Lack of Transportation: No Lack of Food: Never True Current Housing: I Have Housing Concerned About Future Housing: No Difficulty Paying Gas/Electric Bills: No Difficulty Paying for Meds: No Currently Unemployed: No Education: Grade School Difficulty w/ Childcare or Family Care: No Spiritual care concerns: No Exam Narrative: GENERAL: Well-appearing, well-nourished, and in no acute distress. HEAD: Normocephalic, atraumatic. ENT: Mucous membranes moist. Normal appearing posterior oropharynx. Uvula midline and mildly edematous. NECK: Supple. CHEST: Clear to auscultation. No respiratory distress. HEART: Regular rate and rhythm. Normal peripheral pulses. EXTREMITIES: Normal range of motion. No edema. SKIN: Warm, dry, no rash. NEURO: Alert and oriented x3. PSYCH: Normal mood and affect. Course Course Emergency Course: patient resting comfortably. Will give 1 dose Decadron and discharged home. Recommend guaifenesin as an expectorant. Vital Signs Vital signs: Vital Signs Temperature 97.4 F L 07/02/24 04:08 Pulse Rate 81 07/02/24 04:08 Respiratory Rate 17 07/02/24 04:08 Blood Pressure 171/64 H 07/02/24 04:08 Pulse Oximetry 95 07/02/24 04:08 Oxygen Delivery Room Air 07/02/24 04:08 Temperature 97.6 F 07/02/24 10:13 Pulse Rate 72 07/02/24 11:56 Respiratory Rate 20 07/02/24 12:16 Blood Pressure 121/56 L 07/02/24 11:56 Pulse Oximetry 100 07/02/24 12:16 Oxygen Delivery Room Air 07/02/24 04:08 Medical Decision Making Vital Signs Vital Signs: Vital Signs Temperature 97.4 F L 07/02/24 04:08 Pulse Rate 81 07/02/24 04:08 Respiratory Rate 17 07/02/24 04:08 Blood Pressure 171/64 H 07/02/24 04:08 Pulse Oximetry 95 07/02/24 04:08 Oxygen Delivery Room Air 07/02/24 04:08 Temperature 97.6 F 07/02/24 10:13 Pulse Rate 72 07/02/24 11:56 Respiratory Rate 20 07/02/24 12:16 Blood Pressure 121/56 L 07/02/24 11:56 Pulse Oximetry 100 07/02/24 12:16 Oxygen Delivery Room Air 07/02/24 04:08 Lab Data 07/02/24 13:27 07/02/24 13:28 Labs: Lab Results 07/02/24 07/02/24 07/02/24 Range/Units 12:14 13:27 13:28 WBC 4.6 (4.5-10.0) K/mm3 RBC 4.29 L (4.6-6.20) M/mm3 Hgb 13.6 L (14.0-18.0) g/dL Hct 40.0 L (42.0-52.0) % MCV 93.2 (80-100) fl MCH 31.7 (26-34) pg MCHC 34.0 (32-36) g/dl RDW 13.4 (11.5-14.5) % Plt Count 154 (150-375) k/mm3 MPV 9.6 (7.4-10.4) fl Immature Gran % (Auto) 0.4 (0-0.5) % Neut % (Auto) 65.6 (45.5-73.1) % Lymph % (Auto) 13.2 L (18.3-44.2) % [place] % (Auto) 14.0 H (2.6-8.5) % Eos % (Auto) 6.1 H (0-4.4) % Baso % (Auto) 0.7 (0.2-1.2) % Lymph # (Auto) 0.60 L (0.9-3.2) K/mm3 [place] # (Auto) 0.6 (0.1-0.6) K/mm3 Eos # (Auto) 0.3 (0-0.3) K/mm3 Baso # (Auto) 0.0 (0.0-0.1) K/mm3 Abs Immat Gran (auto) 0.02 (0.00-0.031) K/mm3 Absolute Neuts (auto) 3.0 (1.3-6.7) K/mm3 Absolute Nucleated RBC 0.000 (0.0-0.012) K/mm3 Nucleated RBC % 0.0 (0.0-0.2) % Sodium 132 L (137-145) mmol/L Potassium 4.1 (3.4-5.0) mmol/L Chloride 104 (98-107) mmol/L Carbon Dioxide 27 (22-30) mmol/L Anion Gap 1 L (4-12) mmol/L BUN 23 H (9-20) mg/dL Creatinine 1.00 (0.7-1.3) mg/dL Estim Creat Clear Calc 41 ml/min Estimated GFR > 60 (59 - ) Glucose 109 (65-110) mg/dL Calcium 8.8 (8.4-10.2) mg/dL Total Bilirubin 0.7 (0.2-1.3) mg/dL AST 21 (17-59) U/L ALT 17 (6-50) U/L Alkaline Phosphatase 97 (38-126) U/L Total Protein 7.0 (6.3-8.2) g/dL Albumin 3.7 (3.5-5.1) g/dL Urine Color Yellow (Yellow) Urine Appearance Cloudy H (Clear) Urine pH 5.5 (5.0-9.0) Ur Specific [place] 1.021 (1.001-1.035) Urine Protein Negative (Negative) mg/dL Urine Glucose (UA) Negative (Negative) mg/dL Urine Ketones Trace H (Negative) mg/dL Ur Blood (Man) Negative (Negative) Urine Nitrate Negative (Negative) Urine Bilirubin Negative (Negative) Urine Urobilinogen 1.0 (<2.0) mg/dL Leukocyte Esterase Rfl 1+ H (Negative) ABRIL/UL Urine RBC 0-2 (0-2) /hpf Urine WBC 21-50 H (0-3) /hpf Ur Squamous Epith Cells None seen (Few) /hpf Urine Bacteria None seen /hpf Urine Casts 0-2 Influenza A (RT-PCR) Negative (Negative) Influenza B (RT-PCR) Negative (Negative) RSV (RT-PCR) Negative (Negative) SARS-CoV-2 RNA (RT-PCR) Negative (Negative) Imaging Data Radiologist's impression: ITS Impressions Chest X-Ray 07/02/24 13:21 IMPRESSION: 1. Appearance suggestive but not diagnostic of COPD. No acute cardiopulmonary disease. Discharge Plan Discharge Clinical Impression: URI (upper respiratory infection), Uvulitis Patient Disposition: Home, Self-Care Condition: Stable Instructions: Viral Syndrome (ED) Additional Instructions: As discussed you have a viral illness. Unfortunately there are no specific medications we can give you to make the illness end faster. Antibiotics do not work for viral illnesses. However, you can take Acetaminophen or Ibuprofen to help with fevers and pain. Stay well hydrated and rested. Return to the emergency department if your fevers and chills continue to worse after 5 days, if you develop worsening cough with thick sputum, or are unable to stay hydrated. Contact your primary care provider in the next few days for a re-evaluation and to make sure your symptoms are improving. Patient Language: Kyrgyz Prescriptions: New guaifenesin 1,200 mg tablet extended release 12hr 1,200 mg PO BID Qty: 14 0RF No Action ipratropium bromide 21 mcg (0.03 %) spray,non-aerosol 2 spray intranasal .qd-tid Qty: 30 1RF Rx Instructions: administer into each nostril. Aim back/up/out aspirin 81 mg tablet,delayed release (DR/EC) 81 mg PO DAILY polyethylene glycol 3350 [Miralax] 17 gram Powder In Packet 17 g PO QAM Qty: 7 0RF hydralazine 10 mg tablet 10 mg PO BID Qty: 60 0RF losartan 50 mg tablet 50 mg PO DAILY Qty: 30 11RF albuterol sulfate 90 mcg/actuation HFA aerosol inhaler 1 - 2 inh inhalation Q4-6H PRN (Reason: shortness of breath or wheezing) Qty: 8.5 2RF atorvastatin 20 mg tablet 20 mg PO DAILY Qty: 30 11RF azithromycin 250 mg tablet See Rx Instructions PO .COMPLEX Qty: 6 0RF Rx Instructions: For 250 mg dose pack: take 500 mg today (day 1), then 250 mg for 4 days (days 2-5) PO benzonatate 200 mg capsule 200 mg PO TID PRN (Reason: cough) Qty: 30 0RF doxazosin 1 mg tablet 1 mg PO DAILY Qty: 90 3RF nitrofurantoin monohyd/m-cryst [Macrobid] 100 mg capsule 100 mg PO Q12H Qty: 14 0RF Rx Instructions: must administer with a meal/food Follow-up/Referrals: eMly Gupta NP [Primary Care Provider] - 1 Week
[2024-07-02 13:34] LABS: Basophils Percent Auto 0.7 % (0.2-1.2); Eosinophils Absolute Auto 0.3 K/mm3 (0-0.3); Eosinophils Percent Auto 6.1 % (0-4.4); Hemoglobin 13.6 g/dL (14.0-18.0); Immature Granulocyte Absolute 0.02 K/mm3 (0.00-0.031); Immature Granulocyte Percent A 0.4 % (0-0.5); Lymphocytes Percent Auto 13.2 % (18.3-44.2); Mean Corpuscular Hemoglobin 31.7 pg (26-34); Mean Corpuscular Volume 93.2 fl (80-100); Mean Platelet Volume 9.6 fl (7.4-10.4); Monocytes Absolute Auto 0.6 K/mm3 (0.1-0.6); Neutrophils Percent Auto 65.6 % (45.5-73.1); Platelet Count Result 154 k/mm3 (150-375); Red Blood Count 4.29 M/mm3 (4.6-6.20); Red Cell Distribution Width 13.4 % (11.5-14.5); White Blood Count 4.6 K/mm3 (4.5-10.0)
[2024-07-02 13:48] LABS: Alanine Aminotransferase 17 U/L (6-50); Albumin Level 3.7 g/dL (3.5-5.1); Alkaline Phosphatase 97 U/L (38-126); Anion Gap 1 mmol/L (4-12); Aspartate Amino Transferase 21 U/L (17-59); Bilirubin,Total 0.7 mg/dL (0.2-1.3); Blood Urea Nitrogen 23 mg/dL (9-20); Calcium 8.8 mg/dL (8.4-10.2); Carbon Dioxide 27 mmol/L (22-30); Chloride 104 mmol/L (98-107); Estimated CRCL calculation 41 ml/min; Estimated Glomerular Filt Rate > 60; Glucose 109 mg/dL (65-110); Potassium 4.1 mmol/L (3.4-5.0); Sodium 132 mmol/L (137-145)
[2024-07-02] MEDS: dexAMETHasone 10 MG/10 ML INTENSOL CONC (*BKC) PO (14:18)
[2024-07-02 14:26] VITALS: BP 146/74; PULSE 66; RESP 27; O2SAT 99
--- OUTSIDE RECORDS SUMMARY | 2024-07-09 02:16 | XMS_ITS | Continuity of Care Document ---
Author Organization [facility] Address [address] [place] [address] Care Team Providers Care Wood Preparation Supervisor Name Role Phone DYLAN Gupta Attending Provider Iban, MD Rader Attending Provider DYLAN Gupta Primary Care Provider BALAJI Robb Emergency Provider MD Miller Mcmanus Referring Provider [phone] MD Bg Mars Emergency Provider + MD Fadia Dumont V. Admit Provider [phone] DARWIN Olmos Attending Provider MD Barrett Osborne Other Provider MD Lala Estrada Emergency Provider [phone] MD Amari [facility] Admit Provider MD Toñito Burrows Other Provider DARWIN Milligan Attending Provider MD Bindu Fried Other Provider MD Juan Trimble Other Provider Care Teams Patient Care Team Team Status: Active Member Role Status Dates MIGUEL FLORES MD Family Provider Active Mely Gupta NP Primary Care Provider Active Visit Care Team Team Status: Inactive Member Role Status Dates Mely Gupta NP Attending Provider, Referring Provi rufus Active Visit Care Team Team Status: Inactive Member Role Status Dates Prasanth Ferrera , Attending Provider, Referring Prov ider Active Visit Care Team Team Status: Inactive Member Role Status Dates Mely Gupta NP Attending Provider Active Miller Mcmanus MD Referring Provider Active Visit Care Team Team Status: Inactive Member Role Status Dates Mely Gupta NP Attending Provider Active Miller Mcmanus MD Referring Provider Active Visit Care Team Team Status: Inactive Member Role Status Dates Mely Gupta NP Primary Care Provider Active Bg Mars MD Emergency Provider Active Fadia Dumont MD Admit Provider Active Alana Olmos , MUSICAL STRING MAKER Attending Provider Active Barrett Osborne MD Other Provider Active Visit Care Team Team Status: Inactive Member Role Status Dates Mely Gupta NP Primary Care Provider Active Prasanth Ferrera , Attending Provider Active Visit Care Team Team Status: Inactive Member Role Status Dates Mely Gupta NP Primary Care Provider Active Lala Estrada MD Emergency Provider Active Ayden Fitzpatrick MD Admit Provider Active Toñito Burrows MD Other Provider Active Ronit Milligan APRN Attending Provider Active Bindu Fried MD Other Provider Active Juan Trimble MD Other Provider Active Visit Care Team Team Status: Inactive Member Role Status Dates Mely Gupta NP Primary Care Provider Active Kimberli Robb PA-C Emergency Provider Active Chief Complaint and Reason for Visit Chief Complaint Medicare Annual Well ness Vertigo Hit Left Hand working in [employer] [facility] Follow-Up Sacral fracture, Ground level fall, Left thigh con Uns hearing loss, angely H91.93 Hospital Follow-Up FTT/Gen Weakness/Hematuria Reason for Visit Anemia Atrial fibrillation BPH (benign prostatic hyperplasia) Constipation COPD (chronic obstructive pulmonary disease) Depression Dizziness Generalized weakness Hypertension Insomnia Pressure sore on buttocks Shortness of breath Vasomotor rhinitis Hyperlipidemia Encounter for Medicare annual wellness exam BPPV (benign paroxysmal positional vertigo) Vertigo Atrial fibrillation Dizziness Hypertension Pressure sore on buttocks Hospital discharge follow-up Closed sacral fracture Contusion of left thigh Contusion of left wrist Ground-level fall Hypertension Closed sacral fracture Dizziness Hypertension Hospital discharge follow-up Adult failure to thrive syndrome Atrial fibrillation Benign prostatic hyperplasia BPPV (benign paroxysmal positional vertigo) Closed sacral fracture Dementia Generalized weakness Hematuria Hypertension Intermittent gross hematuria Lumbar radiculopathy Lumbar spondylosis Paresthesia of both lower extremities Allergies, Adverse Reactions, Alerts No known allergies Social History Smoking Status Status Start Date End Date Date of Observa tion Ex-smoker (finding) July 02, 2008 Oct el 2023 4:02pm Observation Status Observation Response Date of Response Do You Feel Safe in your Home? Yes O ctober 2023 4:02pm Has Lack of Trans Kept You F rom Med Appts or Getting Meds? No April 22, 2024 4:02pm In Past 12 Months, Were You Worried Your Food Would Run Out? Never True April 22, 2024 4:02pm What is Your Housing Situation Today? I Have Nathalia sing April 22, 2024 4:02pm Are You Worried That in Next 2 Mo, You Won't Have Housing? No April 22, 2024 4:02pm Do You Have Trouble Paying Y our Heating Or Electricity Bill? No April 22, 2024 4:02pm Do You Have Trouble Paying For Medicines? No April 22, 2024 4:02pm Are You Currently Unemployed and Looking for Work? No April 22, 2024 4:02pm Highest Level of Education Completed Grade Schoo l April 22, 2024 4:02pm Do You Have Trouble With Chi ldcare/Care of a Family Member? No April 22, 2024 4:02pm alcohol intake never April 22 4:02pm Substance use type does not use April 22, 2024 4:02pm Additional Data Assigned Sex Male Family History Relationship Condition Age at Onset Recorded Date/T levy Not Specified Unknown family medical history Unknown Problems Active Problems Medical Problem Onset Date Status Urine abnormality Active Elevated fasting glucose Active Benign prostatic hyperplasia Act tanner BPH (benign prostatic hyperplasia) Active Lesion of both ears Active Pressure sore on buttocks Active Intermittent gross hematuria Act tanner Ground-level fall Active Insomnia Active Lumbar radiculopathy Active BPPV (benign paroxysmal positional vertigo) Active Encounter to establish care Acti ve Fatigue Active Shortness of breath Active Hematuria Active Dizziness Active Nocturia Active Anemia Active Anxiety Active Generalized weakness Active Generalized weakness Active Atrial fibrillation Active Cerumen debris on tympanic membrane of both ears Active Dementia Active Depression Active Seasonal allergies Active Seasonal allergies Active Hyperglycemia Active Hyperlipidemia Active Vasomotor rhinitis Active Paresthesia of both lower extremities Active Tremor Active Weakness Active Hearing loss, bilateral Active Chronic obstructive pulmonary disease Active COPD (chronic obstructive pulmonary disease) Active Cognitive impairment Active Adult failure to thrive syndrome Active Impacted cerumen of right ear Ac tive Impacted cerumen of both ears Ac tive Impacted cerumen of both ears Ac tive Closed sacral fracture Active Hypertension Active Hypertension Active Constipation Active Lumbar spondylosis Active Contusion of left thigh Active Contusion of left wrist Active Osteoarthritis of right hand Act tanner Inactive/Resolved Problems Medical Problem Onset Date Status Skin tear of forearm without complication Resolved Cellulitis of hand Resolved Cellulitis Resolved Cellulitis Resolved Sepsis Resolved Arthritis of hand, right Resolve d Arthritis of right wrist Resolve d Cellulitis of left hand Resolved Medications Medication Status Dose Units Route Directions Qty Days St art Date End Date Instructions Ipratropium [place] Active 2 SPRAY NASAL .qd-tid February 20, 2024 12:00am administer into each nostril. Aim back/up/out Aspirin Active 81 MG PO DAILY December 12, 2021 12:00am Polyethylene Glycol 3350 (Miralax) 17 gram Powder In Packet Active 17 GM PO Every Morning er 2023 12:00am Doxazosin Active 1 MG PO DAILY April 22, 2024 3:25pm Hydralazine Active 10 MG PO TWICE A DAY 60 April 24, 2024 12:00am Losartan Active 50 MG PO DAILY December 01, 2023 9:29am Albuterol Sulfate Active 1 - 2 INHALATI ON INHALAT ION EVERY 4 - 6 HOURS 8.5 December 10, 2023 9:36am Atorvastatin Active 20 MG PO DAILY Mar er 2023 9:41am Immunizations Immunization Event Date Not Given Reason Dose Number Electrical Equipment Technician Lot Number Vaccine Information Statement (VIS) Detail Fluad Quad High Dose (65+) June 29, 2021 Fluad Quad High Dose (65+) April 28, 2022 Influenza, adjuvanted May 04, 2023 Tetanus, Diphtheria, Pertussis (Tdap) January 15, 2022 [id number] Tetanus, Diphtheria, Pertussis (Tdap) March 13, 2024 [id number] Procedures Procedure Date Performed Status CULTURE, URINE, ROUTINE February 13, 2024 comple max Relevant Diagnostic Tests and/or Laboratory Data Laboratory Results Test Date/Time Result Interpretation Reference Range Result Comment Performing Site Hemoglobin A1c February 06, 2024 8:22am 6.0 % of total Hgb Above high normal <5.7 For someone without known diabetes, a hemoglobin A1c value between 5.7% and 6.4% is consistent withprediabetes and should be confirmed with a follow-up test. For someone with known diabetes, a value <7%indicates that their diabetes is well controlled. [id number] should be individualized based on duration ofdiabetes, age, comorbid conditions, and otherconsiderati ons. This assay result is consistent with an increased riskof diabetes. Currently, no consensus exists regarding use ofhemoglobin A1c for diagnosis of diabetes for children. This test was performed on the Cecy hansa c503 platform.Effecti ve 09/17/23, a change in test platforms from the[employer] to the Cecy hansa c503 may have [id number] results compared to historical results.Based [facility], the Cecy platform relative to the [employer] had an average increase in HbA1c value of< or = 0.3%. This difference is within accepted variability established by the National GlycohemoglobinS tandardization Program. Note that not all individualswill have had a shift in their results and directcomparison s between historical and current results fortesting conducted on different platforms is notrecommended. Thyroid Stimulating Hormone (Reflex February 06, 2024 8:22am 0.48 mIU/L 0.40-4.50 Ferritin February 06, 2024 8:22am 172 ng/mL 24-380 White Blood Count February 06, 2024 8:22am 6.2 Thousand/ uL 3.8-10.8 Urine Color February 06, 2024 8:22am YELLOW YELLOW Glucose Level February 06, 2024 8:22am 103 mg/dL Above high normal 65-99 Fasting reference interval For someone without known diabetes, a glucose valuebetween 100 and 125 mg/dL is consistent withprediabetes and should be confirmed with afollow-up test. Iron Level February 06, 2024 8:22am 136 ug/dL 50-180 Triglycerides Level February 06, 2024 8:22am 61 mg/dL <150 Urine Color February 13, 2024 8:22am YELLOW YELLOW Red Blood Count February 06, 2024 8:22am 4.95 Million/u L 4.20-5.80 Urine Appearance February 06, 2024 8:22am CLEAR CLEAR Blood Urea Nitrogen February 06, 2024 8:22am 20 mg/dL 7-25 Total Iron Binding Capacity February 06, 2024 8:22am 305 mcg/dL (calc) 250-425 Cholesterol Level February 06, 2024 8:22am 153 mg/dL <200 Urine Appearance February 13, 2024 8:22am CLEAR CLEAR Hemoglobin February 06, 2024 8:22am 15.6 g/dL 13.2-17.1 Urine Bilirubin February 06, 2024 8:22am NEGATIVE NEGATIVE Creatinine February 06, 2024 8:22am 1.16 mg/dL 0.70-1.22 Percent Iron Saturation February 06, 2024 8:22am 45 % (calc) 20-48 HDL Cholesterol Direct February 06, 2024 8:22am 62 mg/dL > OR = 40 Urine Bilirubin February 13, 2024 8:22am NEGATIVE NEGATIVE Hematocrit February 06, 2024 8:22am 47.6 % 38.5-50.0 Urine Ketones February 06, 2024 8:22am NEGATIVE NEGATIVE BUN/Creatinine Ratio February 06, 2024 8:22am SEE NOTE: (calc) 6-22 Not Reported: BUN and Creatinine are within reference range. LDL Cholesterol, Calculated February 06, 2024 8:22am 77 mg/dL (calc) Reference range: <100 Desirable range <100 mg/dL for primary prevention; <70 mg/dL for patients with CHD or diabetic patients with > or = 2 CHD risk factors. LDL-C is now calculated using the Sin-Facundo calculation, which is a validated novel method providing better accuracy than the Friedewald equation in the estimation of LDL-C. Sin PERALES et al. SONA. 2013;310(19): 0388-1783 (http://educatio n.[employer].com/faq/FAQ16 4) Urine Ketones February 13, 2024 8:22am NEGATIVE NEGATIVE Mean Corpuscular Volume February 06, 2024 8:22am 96.2 fL 80.0-100.0 Urine Specific [place] February 06, 2024 8:22am 1.018 1.001-1.03 5 Sodium Level February 06, 2024 8:22am 132 mmol/L Below low normal 135-146 Cholesterol/HD L Ratio February 06, 2024 8:22am 2.5 (calc) <5.0 Urine Specific [place] February 13, 2024 8:22am 1.016 1.001-1.03 5 Mean Corpuscular Hemoglobin February 06, 2024 8:22am 31.5 pg 27.0-33.0 Urine Blood (Manual) February 06, 2024 8:22am NEGATIVE NEGATIVE Potassium Level February 06, 2024 8:22am 4.7 mmol/L 3.5-5.3 Non-HDL Cholesterol February 06, 2024 8:22am 91 mg/dL (calc) <130 For patients with diabetes plus 1 major ASCVD risk factor, treating to a non-HDL-C goal of <100 mg/dL (LDL-C of <70 mg/dL) is considered a therapeutic option. Urine Blood (Manual) February 13, 2024 8:22am NEGATIVE NEGATIVE Mean Corpuscular Hemoglobin Concent February 06, 2024 8:22am 32.8 g/dL 32.0-36.0 Urine pH February 06, 2024 8:22am 6.0 5.0-8.0 Chloride Level February 06, 2024 8:22am 100 mmol/L 98-110 Urine pH February 13, 2024 8:22am 6.5 5.0-8.0 Red Cell Distribution Width February 06, 2024 8:22am 12.9 % 11.0-15.0 Urine Protein February 06, 2024 8:22am NEGATIVE NEGATIVE Carbon Dioxide Level February 06, 2024 8:22am 25 mmol/L 20-32 Urine Protein February 13, 2024 8:22am NEGATIVE NEGATIVE Platelet Count February 06, 2024 8:22am 174 Thousand/ uL 140-400 Urine Nitrate February 06, 2024 8:22am NEGATIVE NEGATIVE Calcium Level February 06, 2024 8:22am 9.5 mg/dL 8.6-10.3 Urine Nitrate February 13, 2024 8:22am NEGATIVE NEGATIVE Neutrophils % February 06, 2024 8:22am 69 % Urine Leukocyte Esterase February 06, 2024 8:22am 2+ Abnormal (applies to non-numeric results) NEGATIVE Total Protein February 06, 2024 8:22am 6.6 g/dL 6.1-8.1 Urine Leukocyte Esterase (Reflex) February 13, 2024 8:22am 1+ Abnormal (applies to non-numeric results) NEGATIVE Band Neutrophils % February 06, 2024 8:22am MENTAL HEALTH THERAPIST % Urine WBC February 06, 2024 8:22am 10-20 [HPF] Abnormal (applies to non-numeric results) < OR = 5 Albumin February 06, 2024 8:22am 4.2 g/dL 3.6-5.1 Urine WBC February 13, 2024 8:22am 10-20 [HPF] Abnormal (applies to non-numeric results) < OR = 5 Band Neutrophils # February 06, 2024 8:22am MENTAL HEALTH THERAPIST cells/uL 0-750 Urine RBC February 06, 2024 8:22am NONE SEEN [HPF] < OR = 2 Globulin February 06, 2024 8:22am 2.4 g/dL (calc) 1.9-3.7 Urine RBC February 13, 2024 8:22am NONE SEEN [HPF] < OR = 2 Metamyelocytes % February 06, 2024 8:22am MENTAL HEALTH THERAPIST % Urine Squamous Epithelial Cells February 06, 2024 8:22am NONE SEEN [HPF] < OR = 5 Albumin/Globul in Ratio February 06, 2024 8:22am 1.8 (calc) 1.0-2.5 Urine Squamous Epithelial Cells February 13, 2024 8:22am 0-5 [HPF] < OR = 5 Metamyelocytes # February 06, 2024 8:22am MENTAL HEALTH THERAPIST cells/uL 0 Urine Transitional Epithelial Cells February 06, 2024 8:22am MENTAL HEALTH THERAPIST [HPF] < OR = 5 Total Bilirubin February 06, 2024 8:22am 1.0 mg/dL 0.2-1.2 Urine Transitional Epithelial Cells February 13, 2024 8:22am MENTAL HEALTH THERAPIST [HPF] < OR = 5 Myelocytes % February 06, 2024 8:22am MENTAL HEALTH THERAPIST % Urine Renal Epithelial Cells February 06, 2024 8:22am MENTAL HEALTH THERAPIST [HPF] < OR = 3 Alkaline Phosphatase February 06, 2024 8:22am 99 U/L 35-144 Urine Renal Epithelial Cells February 13, 2024 8:22am MENTAL HEALTH THERAPIST [HPF] < OR = 3 Myelocytes # February 06, 2024 8:22am MENTAL HEALTH THERAPIST cells/uL 0 Urine Amorphous Sediment February 06, 2024 8:22am MENTAL HEALTH THERAPIST [HPF] NONE OR FEW Aspartate Amino Transf (AST/SGOT) February 06, 2024 8:22am 15 U/L 10-35 Urine Amorphous Sediment February 13, 2024 8:22am MENTAL HEALTH THERAPIST [HPF] NONE OR FEW Promyelocytes % February 06, 2024 8:22am MENTAL HEALTH THERAPIST % Urine Yeast (Budding) February 06, 2024 8:22am MENTAL HEALTH THERAPIST [HPF] NONE SEEN Alanine Aminotransfera se (ALT/SGPT) February 06, 2024 8:22am 12 U/L 9-46 Urine Yeast (Budding) February 13, 2024 8:22am MENTAL HEALTH THERAPIST [HPF] NONE SEEN Promyelocytes # February 06, 2024 8:22am MENTAL HEALTH THERAPIST cells/uL 0 Urine Bacteria February 06, 2024 8:22am FEW [HPF] Abnormal (applies to non-numeric results) NONE SEEN Estimat Glomerular Filtration Rate February 06, 2024 8:22am 61 mL/min/1. 73m2 > OR = 60 Urine Bacteria February 13, 2024 8:22am NONE SEEN [HPF] NONE SEEN Neutrophils # February 06, 2024 8:22am 4278 cells/uL 3679-2057 Urine Comment February 06, 2024 8:22am MENTAL HEALTH THERAPIST Urine Comment February 13, 2024 8:22am MENTAL HEALTH THERAPIST Lymphocytes % February 06, 2024 8:22am 18.1 % Urine Atypical Crystals February 06, 2024 8:22am MENTAL HEALTH THERAPIST /HPF NONE SEEN Urine Atypical Crystals February 13, 2024 8:22am MENTAL HEALTH THERAPIST /HPF NONE SEEN Reactive Lymphocytes % February 06, 2024 8:22am MENTAL HEALTH THERAPIST % 0-10 Urine Calcium Oxalate Crystals February 06, 2024 8:22am MENTAL HEALTH THERAPIST [HPF] NONE OR FEW Urine Calcium Oxalate Crystals February 13, 2024 8:22am MENTAL HEALTH THERAPIST [HPF] NONE OR FEW Lymphocytes # February 06, 2024 8:22am 1122 cells/uL 850-3900 Urine Triple Phosphate Crystals February 06, 2024 8:22am MENTAL HEALTH THERAPIST [HPF] NONE OR FEW Urine Triple Phosphate Crystals February 13, 2024 8:22am MENTAL HEALTH THERAPIST [HPF] NONE OR FEW Monocytes % February 06, 2024 8:22am 7.3 % Urine Uric Acid Crystals February 06, 2024 8:22am MENTAL HEALTH THERAPIST [HPF] NONE OR FEW Urine Uric Acid Crystals February 13, 2024 8:22am MENTAL HEALTH THERAPIST [HPF] NONE OR FEW Monocytes # February 06, 2024 8:22am 453 cells/uL 200-950 Urine Hyaline Casts February 06, 2024 8:22am NONE SEEN [LPF] NONE SEEN Urine Hyaline Casts February 13, 2024 8:22am NONE SEEN [LPF] NONE SEEN Eosinophils % February 06, 2024 8:22am 5.0 % Urine Granular Casts February 06, 2024 8:22am MENTAL HEALTH THERAPIST [LPF] NONE SEEN Urine Granular Casts February 13, 2024 8:22am MENTAL HEALTH THERAPIST [LPF] NONE SEEN Eosinophils # February 06, 2024 8:22am 310 cells/uL 15-500 Urine Casts February 06, 2024 8:22am MENTAL HEALTH THERAPIST [LPF] NONE SEEN Urine Casts February 13, 2024 8:22am MENTAL HEALTH THERAPIST [LPF] NONE SEEN Basophils % February 06, 2024 8:22am 0.6 % Urine Comment 2 February 06, 2024 8:22am See comment This urine was analyzed for the presence of WBC, RBC, bacteria, casts, and other formed elements. Only those elements seen were reported. Urine Comment 2 February 13, 2024 8:22am See comment This urine was analyzed for the presence of WBC, RBC, bacteria, casts, and other formed elements. Only those elements seen were reported. Basophils # February 06, 2024 8:22am 37 cells/uL 0-200 Urine Glucose (UA) February 06, 2024 8:22am NEGATIVE NEGATIVE Urine Glucose (UA) February 13, 2024 8:22am NEGATIVE NEGATIVE Blast Cells % February 06, 2024 8:22am MENTAL HEALTH THERAPIST % Blast Cells # February 06, 2024 8:22am MENTAL HEALTH THERAPIST cells/uL 0 Nucleated Red Blood Cells % February 06, 2024 8:22am MENTAL HEALTH THERAPIST /100 WBC 0 Nucleated Red Blood Cells # February 06, 2024 8:22am MENTAL HEALTH THERAPIST cells/uL 0 Hematology Comments February 06, 2024 8:22am MENTAL HEALTH THERAPIST Mean Platelet Volume February 06, 2024 8:22am 10.4 fL 7.5-12.5 White Blood Count March 07, 2024 4:32pm 7.5 K/mm3 4.5-10.0 [facility] [id number] [address] [address] White Blood Count March 15, 2024 6:04am 6.3 K/mm3 4.5-10.0 [facility] [id number] [address] [facility] [address] [place] [address] White Blood Count April 24, 2024 8:02am 5.7 K/mm3 4.5-10.0 [facility] [id number] [address] [address] Red Blood Count March 07, 2024 4:32pm 4.49 M/mm3 Below low normal 4.6-6.20 [facility] [id number] [address] [address] Red Blood Count March 15, 2024 6:04am 4.19 M/mm3 Below low normal 4.6-6.20 [facility] [id number] [address] [address] Red Blood Count April 24, 2024 8:02am 4.94 M/mm3 4.6-6.20 [facility] [id number] [address] [address] Hemoglobin March 07, 2024 4:32pm 14.3 g/dL 14.0-18.0 [facility] [id number] [address] [address] Hemoglobin March 15, 2024 6:04am 13.0 g/dL Below low normal 14.0-18.0 [facility] [id number] [address] [address] Hemoglobin April 24, 2024 8:02am 15.6 g/dL 14.0-18.0 [facility] [id number] [address] [address] Hematocrit March 07, 2024 4:32pm 41.8 % Below low normal 42.0-52.0 [facility] [id number] [address] [address] Hematocrit March 15, 2024 6:04am 39.3 % Below low normal 42.0-52.0 [facility] [id number] [address] [address] Hematocrit April 24, 2024 8:02am 46.7 % 42.0-52.0 [facility] [id number] [address] [address] Mean Corpuscular Volume March 07, 2024 4:32pm 93.1 fL 80-100 [facility] [id number] [address] [address] Mean Corpuscular Volume March 15, 2024 6:04am 93.8 fL 80-100 [facility] [id number] [facility] [address] [address] Mean Corpuscular Volume April 24, 2024 8:02am 94.5 fL 80-100 [facility] [id number] [address] [place] [address] Mean Corpuscular Hemoglobin March 07, 2024 4:32pm 31.8 pg 2634 [facility] [id number] [address] [place] [address] Mean Corpuscular Hemoglobin March 15, 2024 6:04am 31.0 pg [facility]34 [facility] [id number] [address] [place] [address] Mean Corpuscular Hemoglobin April 24, 2024 8:02am 31.[address] [place] [address] [facility] [id number] [address] [place] [address] Mean Corpuscular Hemoglobin Concent March 07, 2024 4:32pm 34.2 g/dL 36 [facility] [id number] [address] [place] [address] Mean Corpuscular Hemoglobin Concent March 15, 2024 6:04am 33.1 g/dL 36 [facility] [id number] [address] [place] [address] Mean Corpuscular Hemoglobin Concent April 24, 2024 8:02am 33.4 g/dL [address] [place] [address] [facility] [id number] [address] [place] [address] Red Cell Distribution Width March 07, 2024 4:32pm 13.4 % 11.5-14.5 [facility] [id number] [address] [place] [address] Red Cell Distribution Width March 15, 2024 6:04am 13.2 % 11.5-14.5 [facility] [id number] [address] [place] [address] Red Cell Distribution Width April 24, 2024 8:02am 13.6 % 11.5-14.5 [facility] [id number] [address] [place] [address] Platelet Count March 07, 2024 4:32pm 166 k/mm3 150-375 [facility] [id number] [address] [place] [address] Platelet Count March 15, 2024 6:04am 154 k/mm3 150-375 [facility] [id number] [address] [place] [address] Platelet Count April 24, 2024 8:02am 167 k/mm3 150-375 [facility] [id number] [address] [place] [address] Mean Platelet Volume March 07, 2024 4:32pm 9.7 fL 7.4-10.4 [facility] [id number] [address] [place] [address] Mean Platelet Volume March 15, 2024 6:04am 10.2 fL 7.4-10.4 [facility] [id number] [address] [place] [address] Mean Platelet Volume April 24, 2024 8:02am 10.3 fL 7.4-10.4 [facility] [id number] [address] [place] [address] Nucleated Red Blood Cells % March 07, 2024 4:32pm 0.0 % 0.0-0.2 [facility] [id number] [address] [place] [address] Nucleated Red Blood Cells % March 13, 2024 12:52am 0.0 % 0.0-0.2 [facility] [id number] [address] [place] [address] Nucleated Red Blood Cells % April 24, 2024 8:02am 0.0 % 0.0-0.2 [facility] [id number] [address] [place] [address] Immature Granulocyte % (Auto) March 07, 2024 4:32pm 0.5 % 0-0.5 [facility] [id number] [address] [place] [address] Immature Granulocyte % (Auto) March 13, 2024 12:52am 0.9 % Above high normal 0-0.5 [facility] [id number] [address] [place] [address] 54836 Immature Granulocyte % (Auto) April 24, 2024 8:02am 0.4 % 0-0.5 [facility] [id number] [address] [place] [address] 14845 Neutrophils (%) (Auto) March 07, 2024 4:32pm 73.4 % Above high normal 45.5-73.1 [facility] [id number] [address] [place] [address] 43949 Neutrophils (%) (Auto) March 13, 2024 12:52am 81.8 % Above high normal 45.5-73.1 [facility] [id number] [address] [place] [address] 70744 Neutrophils (%) (Auto) April 24, 2024 8:02am 67.6 % 45.5-73.1 [facility] [id number] [address] [place] [address] 96117 Lymphocytes (%) (Auto) March 07, 2024 4:32pm 13.3 % Below low normal 18.3-44.2 [facility] [id number] [address] [place] [address] 24048 Lymphocytes (%) (Auto) March 13, 2024 12:52am 7.5 % Below low normal 18.3-44.2 [facility] [id number] [address] [place] [address] 53571 Lymphocytes (%) (Auto) April 24, 2024 8:02am 19.0 % 18.3-44.2 [facility] [id number] [address] [place] [address] 92594 Monocytes (%) (Auto) March 07, 2024 4:32pm 7.8 % 2.6-8.5 [facility] [id number] [address] [place] [address] 55693 Monocytes (%) (Auto) March 13, 2024 12:52am 6.4 % 2.6-8.5 [facility] [id number] [address] [place] [address] 16653 Monocytes (%) (Auto) April 24, 2024 8:02am 7.9 % 2.6-8.5 [facility] [id number] [address] [place] [address] 16244 Eosinophils (%) (Auto) March 07, 2024 4:32pm 4.3 % 0-4.4 [facility] [id number] [address] [place] [address] 92785 Eosinophils (%) (Auto) March 13, 2024 12:52am 2.9 % 0-4.4 [facility] [id number] [address] [place] [address] 01467 Eosinophils (%) (Auto) April 24, 2024 8:02am 4.4 % 0-4.4 [facility] [id number] [address] [place] [address] 11949 Basophils (%) (Auto) March 07, 2024 4:32pm 0.7 % 0.2-1.2 [facility] [id number] [address] [place] [address] 22707 Basophils (%) (Auto) March 13, 2024 12:52am 0.5 % 0.2-1.2 [facility] [id number] [address] [place] [address] 69303 Basophils (%) (Auto) April 24, 2024 8:02am 0.7 % 0.2-1.2 [facility] [id number] [address] [place] [address] 82905 Nucleated RBC Absolute Count (auto) March 07, 2024 4:32pm 0.000 K/mm3 0.0-0.012 [facility] [id number] [address] [place] [address] 47907 Nucleated RBC Absolute Count (auto) March 13, 2024 12:52am 0.000 K/mm3 0.0-0.012 [facility] [id number] [address] [place] [address] 68486 Nucleated RBC Absolute Count (auto) April 24, 2024 8:02am 0.000 K/mm3 0.0-0.012 [facility] [id number] [address] [place] [address] 64459 Absolute Immature Granulocyte (auto March 07, 2024 4:32pm 0.04 K/mm3 Above high normal 0.00-0.031 [facility] [id number] [address] [place] [address] 60095 Absolute Immature Granulocyte (auto March 13, 2024 12:52am 0.07 K/mm3 Above high normal 0.00-0.031 [facility] [id number] [address] [place] [address] 64458 Absolute Immature Granulocyte (auto April 24, 2024 8:02am 0.02 K/mm3 0.00-0.031 [facility] [id number] [address] [place] [address] 97918 Absolute Neutrophils (auto) March 07, 2024 4:32pm 5.5 K/mm3 1.3-6.7 [facility] [id number] [address] [place] [address] 62136 Absolute Neutrophils (auto) March 13, 2024 12:52am 6.5 K/mm3 1.3-6.7 [facility] [id number] [address] [place] [address] 51570 Absolute Neutrophils (auto) April 24, 2024 8:02am 3.8 K/mm3 1.3-6.7 [facility] [id number] [address] [place] [address] Lymphocytes # (Auto) March 07, 2024 4:32pm 0.99 K/mm3 0.9-3.2 [facility] [id number] [address] [place] [address] Lymphocytes # (Auto) March 13, 2024 12:52am 0.60 K/mm3 Below low normal 0.9-3.2 [facility] [id number] [address] [place] [address] Lymphocytes # (Auto) April 24, 2024 8:02am 1.08 K/mm3 0.9-3.2 [facility] [id number] [address] [place] [address] Monocytes # (Auto) March 07, 2024 4:32pm 0.6 K/mm3 0.1-0.6 [facility] [id number] [address] [place], [place] [address] Monocytes # (Auto) March 13, 2024 12:52am 0.5 K/mm3 0.1-0.6 [facility] [id number] [address] [place], [place] [address] Monocytes # (Auto) April 24, 2024 8:02am 0.5 K/mm3 0.1-0.6 [facility] [id number] [address] [place] [address] 62943 Eosinophils # (Auto) March 07, 2024 4:32pm 0.3 K/mm3 0-0.3 [facility] [id number] [address] [place] [address] 74022 Eosinophils # (Auto) March 13, 2024 12:52am 0.2 K/mm3 0-0.3 [facility] [id number] [address] [place], [place] [address] Eosinophils # (Auto) April 24, 2024 8:02am 0.3 K/mm3 0-0.3 [facility] [id number] [address] [place], [place] [address] Basophils # (Auto) March 07, 2024 4:32pm 0.1 K/mm3 0.0-0.1 [facility] [id number] [address] [place] [address] 23908 Basophils # (Auto) March 13, 2024 12:52am 0.0 K/mm3 0.0-0.1 [facility] [id number] [address] [place], [place] [address] Basophils # (Auto) April 24, 2024 8:02am 0.0 K/mm3 0.0-0.1 [facility] [id number] [address] [place] [address] 21044 Erythrocyte Sedimentation Rate March 07, 2024 4:32pm 8 mm/hr 0-20 [facility] [id number] [address] [place] [address] 02662 Prothrombin Time April 22, 2024 8:37am 13.5 s 11.1-14.7 [facility] [id number] [address] [place], [place] [address] Prothromb Time International Ratio April 22, 2024 8:37am 1.0 INR Indication------ --- ------0.9 - 1.1 Patients not on anticoagulant therapy.2.0 - 3.0 Routine therapy.2.5 - 3.5 Recurrent myocardial infarction or mechanical prosthetic valves. [facility] [id number] [address] [place] [address] 35481 Activated Partial Thromboplast Time April 22, 2024 8:37am 26.4 s 22.3-36.8 [facility] [id number] [address] [place] [address] 31457 Urine Color March 13, 2024 2:05am Yellow Yellow [facility] [id number] [address] [place] [address] 84986 Urine Color April 22, 2024 10:36am Yellow Yellow [facility] [id number] [address] [place] [address] 00126 Urine Appearance March 13, 2024 2:05am Clear Clear [facility] [id number] [address] [place] [address] 30318 Urine Appearance April 22, 2024 10:36am Clear Clear [facility] [id number] [address] [place] [address] 59636 Urine pH March 13, 2024 2:05am 6.5 5.0-9.0 [facility] [id number] [address] [address] Urine pH April 22, 2024 10:36am 7.0 5.0-9.0 [facility] [id number] [address] [address] Urine Specific [place] March 13, 2024 2:05am 1.025 1.001-1.[address] [place] [address] [facility] [id number] [address] [address] Urine Specific [place] April 22, 2024 10:36am 1.016 1.001-1.[address] [place] [address] [facility] [id number] [address] [address]482 Urine Protein March 13, 2024 2:05am Negative mg/dL Negative [facility] [id number] [address] 83781 Urine Protein April 22, 2024 10:36am Negative mg/dL Negative [facility] [id number] [address] 6[address]16 Urine Glucose (UA) March 13, 2024 2:05am Negative mg/dL Negative [facility] [id number] [address] [address]233 Urine Glucose (UA) April 22, 2024 10:36am Negative mg/dL Negative [facility] [id number] [address] [address]640 Urine Ketones March 13, 2024 2:05am Negative mg/dL Negative [facility] [id number] [address] 18070 Urine Ketones April 22, 2024 10:36am Negative mg/dL Negative [facility] [id number] [address] [address]113 Urine Blood (Manual) March 13, 2024 2:05am Negative Negative [facility] [id number] [address] 28158 Urine Blood (Manual) April 22, 2024 10:36am 3+ Above high normal Negative [facility] [id number] [address] 47836 Urine Nitrate March 13, 2024 2:05am Negative Negative [facility] [id number] [address] 23333 Urine Nitrate April 22, 2024 10:36am Negative Negative [facility] [id number] [address] 47012 Urine Bilirubin March 13, 2024 2:05am Negative Negative [facility] [id number] [address] 78236 Urine Bilirubin April 22, 2024 10:36am Negative Negative [facility] [id number] [address] [place] [address] 79413 Urine Urobilinogen March 13, 2024 2:05am 1.0 mg/dL <2.0 [facility] [id number] [facility] [address] [address]98 Urine Urobilinogen April 22, 2024 10:36am 1.0 mg/dL <2.0 [facility] [id number] [address] [place] [address] 11155 Urine Leukocyte Esterase (Reflex) March 13, 2024 2:05am Negative ABRIL/UL Negative [facility] [id number] [address] [place] [address] 75344 Urine Leukocyte Esterase (Reflex) April 22, 2024 10:36am Negative ABRIL/UL Negative [facility] [id number] [facility] [address] [address]702 Urine RBC April 22, 2024 10:36am >100 [HPF] Above high normal 0-2 [facility] [id number] [facility] [address] 67963 Urine WBC April 22, 2024 10:36am 0-5 [HPF] 0-3 [facility] [id number] [address] [place] [address] 95442 Urine Squamous Epithelial Cells April 22, 2024 10:36am None seen [HPF] Few [facility] [id number] [facility] [address] [address]38 Urine Bacteria April 22, 2024 10:36am None seen [HPF] [facility] [id number] [facility] [address] 17508 Sodium Level March 07, 2024 4:32pm 131 mmol/L Below low normal 137-145 [facility] [id number] [facility] [address] [address]324 Sodium Level March 15, 2024 6:04am 122 mmol/L Below low normal 137-145 [facility] [id number] [facility] [address] 08175 Sodium Level April 24, 2024 8:02am 135 mmol/L Below low normal 137-145 [facility] [id number] [address] [place] [address] 53272 Potassium Level March 07, 2024 4:32pm 4.6 mmol/L 3.4-5.0 [facility] [id number] [address] [place] [address] 92922 Potassium Level March 15, 2024 6:04am 4.5 mmol/L 3.4-5.0 [facility] [id number] [address] [place] [address] 57129 Potassium Level April 24, 2024 8:02am 4.7 mmol/L 3.4-5.0 [facility] [id number] [address] [place] [address] 41203 Chloride Level March 07, 2024 4:32pm 97 mmol/L Below low normal 98-107 [facility] [id number] [address] [place] [address] 54481 Chloride Level March 15, 2024 6:04am 94 mmol/L Below low normal 98107 [facility] [id number] [address] [place] [address] 25614 Chloride Level April 24, 2024 8:02am 102 mmol/L 98107 [facility] [id number] [address] [place] [address] 12275 Carbon Dioxide Level March 07, 2024 4:32pm 23 mmol/L [facility] [id number] [address] [place] [address] 90630 Carbon Dioxide Level March 15, 2024 6:04am 22 mmol/L [facility] [id number] [address] [place] [address] 23726 Carbon Dioxide Level April 24, 2024 8:02am 27 mmol/L [facility] [id number] [address] [place] [address] 46698 Anion Gap March 07, 2024 4:32pm 11 mmol/L 10-11 [facility] [id number] [address] [place] [address] 98798 Anion Gap March 15, 2024 6:04am 6 mmol/L 10-11 [facility] [id number] [address] [place] [address] 91071 Anion Gap April 24, 2024 8:02am 6 mmol/L 10-11 [facility] [id number] [address] [place] [address] 89619 Blood Urea Nitrogen March 07, 2024 4:32pm 22 mg/dL Above high normal 03-21 [facility] [id number] [address] [place] [address] 31353 Blood Urea Nitrogen March 15, 2024 6:04am 19 mg/dL 03-21 [facility] [id number] [address] [place] [address] 07828 Blood Urea Nitrogen April 24, 2024 8:02am 25 mg/dL Above high normal 03-21 [facility] [id number] [address] [place] [address] 22641 Creatinine March 07, 2024 4:32pm 1.10 mg/dL 0.7-1.3 [facility] [id number] [address] [place] [address] 33446 Creatinine March 15, 2024 6:04am 1.00 mg/dL 0.7-1.3 [facility] [id number] [address] [place] [address] 58879 Creatinine April 24, 2024 8:02am 1.10 mg/dL 0.7-1.3 [facility] [id number] [address] [place] [address] 94457 Estimat Glomerular Filtration Rate March 07, 2024 4:32pm > 60 >59 > OR = 60 ml/min/1.73 square metersThe MDRD formula used to calculate the eGFR result has not been validated in patients > 70 years of age. [facility] [id number] [address] [place] [address] 05396 Estimat Glomerular Filtration Rate March 15, 2024 6:04am > 60 >59 > OR = 60 ml/min/1.73 square metersThe MDRD formula used to calculate the eGFR result has not been validated in patients > 70 years of age. [facility] [id number] [address] [place] [address] 97196 Estimat Glomerular Filtration Rate April 24, 2024 8:02am > 60 >59 > OR = 60 ml/min/1.73 square metersThe MDRD formula used to calculate the eGFR result has not been validated in patients > 70 years of age. [facility] [id number] [address] [place] [address] 82624 Estimated Creatinine Clearance Calc March 07, 2024 4:32pm 39 mL/min For use in prescription drug dose determination only. Reference ranges have not been establishe for this calculation. [facility] [id number] [address] [place] [address] 21241 Estimated Creatinine Clearance Calc March 15, 2024 6:04am 43 mL/min For use in prescription drug dose determination only. Reference ranges have not been establishe for this calculation. [facility] [id number] [address] [place] [address] 62708 Estimated Creatinine Clearance Calc April 24, 2024 8:02am 39 mL/min For use in prescription drug dose determination only. Reference ranges have not been establishe for this calculation. [facility] [id number] [address] [place] [address] 41881 Glucose Level March 07, 2024 4:32pm 93 mg/dL 65-110 [facility] [id number] [address] [place] [address] 42913 Glucose Level March 15, 2024 6:04am 103 mg/dL 65-110 [facility] [id number] [address] [place] [address] 05025 Glucose Level April 24, 2024 8:02am 111 mg/dL Above high normal 65-110 [facility] [id number] [address] [place] [address] 98765 Calcium Level March 07, 2024 4:32pm 8.9 mg/dL 8.4-10.2 [facility] [id number] [address] [place] [address] 06612 Calcium Level March 15, 2024 6:04am 8.4 mg/dL 8.4-10.2 [facility] [id number] [address] [place] [address] 69610 Calcium Level April 24, 2024 8:02am 9.2 mg/dL 8.4-10.2 [facility] [id number] [address] [place] [address] 21474 Magnesium Level April 24, 2024 8:02am 2.1 mg/dL 1.6-2.3 [facility] [id number] [address] [place] [address] 69484 Total Bilirubin March 15, 2024 6:04am 1.3 mg/dL 0.2-1.3 [facility] [id number] [address] [place] [address] 97708 Total Bilirubin April 24, 2024 8:02am 0.9 mg/dL 0.2-1.3 [facility] [id number] [address] [address] Aspartate Amino Transf (AST/SGOT) March 15, 2024 6:04am 22 U/L 17-59 [facility] [id number] [address] 31047 Aspartate Amino Transf (AST/SGOT) April 24, 2024 8:02am 18 U/L 17-59 [facility] [id number] [address] [address] Alanine Aminotransfera se (ALT/SGPT) March 15, 2024 6:04am 12 U/L 6-50 [facility] [id number] [address] [place] [address] 37610 Alanine Aminotransfera se (ALT/SGPT) April 24, 2024 8:02am 13 U/L 6-50 [facility] [id number] [address] [place] [address] 61414 C-Reactive Protein March 07, 2024 4:32pm < 0.5 mg/dL <1.1 [facility] [id number] [address] [address] Total Protein March 15, 2024 6:04am 6.0 g/dL Below low normal 6.3-8.2 [facility] [id number] [address] [place] [address] 61487 Total Protein April 24, 2024 8:02am 7.0 g/dL 6.3-8.2 [facility] [id number] [address] [place] [address] 06281 Albumin March 15, 2024 6:04am 3.5 g/dL 3.5-5.1 [facility] [id number] [address] [place] [address] 88936 Albumin April 24, 2024 8:02am 4.0 g/dL 3.5-5.1 [facility] [id number] [address] [place] [address] 06670 Alkaline Phosphatase March 15, 2024 6:04am 77 U/L 38-126 [facility] [id number] [address] [address] Alkaline Phosphatase April 24, 2024 8:02am 113 U/L 38-126 [facility] [id number] [address] [place] [address] SARS-CoV-2 RNA (RT-PCR) March 15, 2024 10:33am Negative Negative This assay is designed to detect the RdRp and N genes of SARS-CoV-2 using nucleic acid amplification. A negative result does not preclude the possibility of 2019-nCoV infection since the adequacy of sample collection and/or low viral burden may result in the presence of viral nucleic acids levels below the analytical sensitivity of this test method. Positive results are indicative of the presence of SARS-CoV-2 RNA and do not rule out bacterial infection or co-infection with other viruses. Test results should be used along with other clinical observations, patient history, epidemiological information and laboratory data in making the diagnosis.This test has received Emergency Use Authorization and has been verified by [facility]. This test is only authorized for the duration of the declaration and the circumstances that exist to justify the authorization of the emergency use of in vitro diagnostic tests for the detection of SARS-CoV-2 virus and/or diagnosis of COVID-19 infection under section 564(b)(1) of the Act. 11 U.S.C. 360bbb-3(b)(1), unless the authorization is terminated or revoked sooner.[facility] is certified under CLIA-88 as qualified to perform high complexity testing. This testing was performed in the [facility] [place] [address] (CLIA License #[id number], CAP #[id number], AU-ID # [id number]).Factshe et for healthcare providers: https://www.fda. gov/media/001414 /downloadFactshe et for patients: https://www.fda. gov/media/991220 /download [facility] [id number] [address] [place] [address] Urine Casts April 22, 2024 10:36am 0-2 [facility] [id number] [address] [place] [address] Microbiology Results Procedure Source Result Collection Date/Time Result Date/Time Result Comment Performing Site CULTURE, URINE, ROUTINE February 13, 2024 8:22am February 13, 2024 8:22am Diagnostic Imaging Reports Author Lj Zepeda [facility] April 22, 2024 12:21pm Report Date/Time April 22, 2024 1 2:22pm [facility] [address] [place] [address] CT Scan Report Signed Patient: Noé Davila : 1935 MR#: [id number] Age: 88 Acct:[id number] Loc: [facility] ADM Date: 04/22/[address]: Ordering Physician: Lala Estrada MD Date of Service: 04/22/24 Procedure(s): CT abdomen pelvis wo/w con Accession Number(s): [id number] cc: Lala Estrada MD; Mely Gupta APN~ EXAMINATION: CT abdomen pelvis wo/w con DATE: 04/22/2024 12:08 INDICATION: Hematuria. TECHNIQUE: Computed tomography (CT) of the abdomen and pelvis was performed without and with intravenous contrast using a total of 130 mL Omnipaque-350 intravenous contrast with a double-bolus technique for simultaneous opacification of the renal parenchyma and renal collecting system. Automated exposure control and iterative reconstruction technique were employed. The dose-length product was 565.37 mGy- cm. COMPARISON: CT abdomen and pelvis 03/13/2024 FINDINGS: The visualized portions of the lung bases demonstrate emphysema and mild atelectasis. Calcified left lung nodules are consistent with old granulomatous disease. No pleural effusion. The heart size is normal. There are coronary artery calcifications. There is a trace pericardial effusion. There are calcifications of the aortic valve. No pericardial effusion. The liver is normal. There are changes of cholecystectomy. Calcifications in the spleen are consistent with old granulomatous disease. The pancreas and adrenal glands are normal. There is cortical thinning of right kidney with associated small areas of parenchymal hypoenhancement. There are two masses in left kidney measuring upto 7 mm that are too small to characterize, but likely cysts. There is no urolithiasis. The ureters are well opacified and are normal. The prostate is moderately enlarged. There are no dilated loops of bowel. The appendix is normal. There is calcified atherosclerosis of the aorta and many of the other arteries. There are no pathologically enlarged lymph nodes. There is no free intraperitoneal fluid. There is thoracolumbar dextroscoliosis and severe spondylosis. Again seen is a transverse fracture of S4 of the sacrum. IMPRESSION: 1. No specific etiology for hematuria. 2. Healing subacute transverse fracture of S4 of the sacrum. Reviewed, dictated and finalized at location A. Dictated By: Lj Zepeda MD 04/22/24 1211 Signed By: <Electronically signed by Lj Zepeda MD in OV> 04/22/24 1221 Author Lj estella [facility] April 22, 2024 1:30pm Report Date/Time April 22, 2024 1 :[address] [place], [place] [address] [address] [place], [place] [id number] CT Scan Report Signed Patient: Noé Davila : 1935 MR#: [id number] Age: 88 Acct:[id number] Loc: [facility] ADM Date: 04/22/[address]: Ordering Physician: Lala Estrada MD Date of Service: 04/22/24 Procedure(s): CT brain wo con Accession Number(s): [id number] cc: Lala Estrada MD; Mely Gupta APN~ EXAMINATION: CT brain wo con DATE: 04/22/2024 13:24 INDICATION: Right hemiparesis. TECHNIQUE: Computed tomography (CT) of the head was performed without intravenous contrast. The mA was adjusted according to patient size. Iterative reconstruction technique was employed. The dose-length product was 605.33 mGy-cm. COMPARISON: Head CT 03/13/2024 FINDINGS: There is diffuse brain volume loss. There are scattered areas of low attenuation in the cerebral white matter. There is no intracranial hemorrhage, acute infarction, or abnormal intracranial mass lesion. The ventricles are normal in size. There is mucosal thickening in the paranasal sinuses. There are likely changes of ocular lens replacement surgeries. There is a left optic nervedrusen. The mastoid air cells are normal. IMPRESSION: 1. Stable moderate nonspecific cerebral white matter disease, which likely represents chronic small vessel ischemic disease. Reviewed, dictated and finalized at location A. Dictated By: Lj Zepeda MD 04/22/24 1329 Signed By: <Electronically signed by Lj Zepeda MD in OV> 04/22/24 1330 Author [facility] April 23, 2024 3:52pm Report Date/Time April 23, 2024 3 :53pm [facility] [address] [place] [address] Magnetic Resonance Report Signed Patient: Noé Davila : 1935 MR#: [id number] Age: 88 Acct:[id number] Loc: [id number] ADM Date: 04/22/[address]: Ronit Milligan APRN Ordering Physician: Ronit Milligan APRN Date of Service: 04/23/24 Procedure(s): MR sacrum wo con Accession Number(s): [id number] cc: Ronit Milligan APRN; Mely Gupta APN~ EXAMINATION: MR sacrum wo con DATE: 04/23/2024 15:39 INDICATION: Displaced sacral fracture with paresthesias extending down the left leg TECHNIQUE: Magnetic resonance imaging (MRI) of the sacrum was performed without intravenous contrast. Sequences included axial T1-weighted FSE, axial T2- weighted FS FSE, coronal T1-weighted FSE, coronal T2-weighted FS FSE, sagittal T1-weighted FSE and sagittal T2-weighted FS FSE. COMPARISON: CT dated 04/22/2024 FINDINGS: Marrow edema surrounding a transverse low T1 signal intensity fracture line extending across the S4 segment. There is mild buckling of the anterior cortex but no significant displacement. There is an additional nondisplaced oblique fracture line extending cephalad into the posterior inferior aspect of the S3 segment. There appears to be asymmetric mild narrowing of the anterior left S4 neural foramen. No other fractures identified. Severe lumbar spondylosis. See separate lumbar spine MR for further detail. 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 Prostatomegaly measuring 5.7 x 3.3 cm. IMPRESSION: 1. Nondisplaced transverse fracture extending across S4 with additional nondisplaced oblique fracture extending across the posterior inferior aspect of the S3 segment. 2. Prostatomegaly. Reviewed, dictated and finalized at location A. Dictated By: Leighton Schuler MD 04/23/24 1544 Signed By: <Electronically signed by Leighton Schuler MD in OV> 04/23/24 1552 Author [facility] April 23, 2024 4:19pm Report Date/Time April 23, 2024 4 :21pm [address] [place] [address] Magnetic Resonance Report Signed Patient: Noé Davila : 1935 MR#: [id number] Age: 88 Acct:[id number] Loc: [id number] ADM Date: 04/22/[address]: Ronit Milligan APRN Ordering Physician: Ronit Milligan APRN Date of Service: 04/23/24 Procedure(s): MR lumbar spine wo con Accession Number(s): [id number] cc: Ronit Milligan APRN; Mely Gupta APN~ Procedure: MR lumbar spine wo con Ordering provider: Ronit Milligan APRN History: . displaced sacral fracture, paresthesia down l leg . Comparison: None. Technique: MRI thoracic spine without contrast. FINDINGS: SPINAL CORD: Normal. Cord ends at the level of L1-L2. VERTEBRAL BODIES: Normal height and alignment. No compression fracture. Normal marrow signal. Dextroscoliosis. DISK SPACES: Endplate change narrowing of all the disc spaces in the lumbar areais noted. S seen at the levels of L2-L3, L4-L5 and L5-S1. T12-L1: Mild spinal canal stenosis. Thickening of the ligamenta flava. Narrowingof the foramina bilaterally with nerve root compression. L1-L2 mild spinal canal stenosis. Thickening of the ligamenta flava. Narrowing of the left intervertebral foramen with root compression. L2-L3: Severe spinal canal stenosis with bone osteophytes and disc bulge. Thickening of the ligamenta flava is noted bilateral narrowing of the foramina with root compression laterally. L3-L4: Mild to moderate spinal canal stenosis. Mild diffuse disc bulge. Thickening of the ligamenta flava. Bilateral narrowing of the foramina with root compression. L4-L5 mild bilateral foraminal stenosis. Diffuse disc bulge. Thickening of the ligamenta flava. L5-S1: Mild diffuse disc bulge. Narrowing of the foramina with root compression bilaterally PARASPINOUS SOFT TISSUES: Normal. IMPRESSION: No compression fracture. Multilevel degenerative disc disease or spinal canal stenosis, intervertebral foraminal narrowing and nerve root compression. Reviewed, dictated and finalized at location A. Dictated By: Faustino Garcia MD 04/23/24 1609 Signed By: <Electronically signed by Faustino Garcia MD in OV> 04/23/24 1619 Vital Signs Vital Reading Result Reference Range Collection Date/Time Height 72 [in_i] January 29, 2024 8:18am Weight 68.60 kg January 29, 2024 8:18am Heart Rate 63 /min 60-100 January 29, 2024 8:18am Respiratory rate 20 /min 12-20 January 29, 2024 8:18am Oxygen saturation by Pulse oximetry 93 % 90-100 January 29, 2024 8:18 am BP Systolic 174 mm[Hg] 100-140 January 29, 2024 8:18am BP Diastolic 72 mm[Hg] 60-90 January 29, 2024 8:18am BMI (Body Mass Index) 20.5 kg/m2 January 012023 8:18am Height 72 [in_i] February 19 9:53am Weight 67.75 kg February 19, 9:53am Heart Rate 75 /min 60-100 February 19, 9:53am Respiratory rate 18 /min -January 9:53am Oxygen saturation by Pulse oximetry 95 % 90-100 February 20, 2024 9: 53am BP Systolic 150 mm[Hg] 100-140 February 19, 9:53am BP Diastolic 62 mm[Hg] 60-90 February 19, 9:53am BMI (Body Mass Index) 20.2 kg/m2 February 20, 2024 9:53am Height 72 [in_i] March 07, 2024 6:39pm Weight 66.90 kg March 07, 2024 6:39pm Body Temperature 97.5 [degF] 97.6-99.6 March 072023 4:20pm Heart Rate 71 /min 60-100 March 07, 2024 4:20pm Respiratory rate 16 /min -March 072023 4:20pm Oxygen saturation by Pulse oximetry 96 % 90-100 March 07, 2024 4:20pm BP Systolic 166 mm[Hg] 100-140 March 07, 2024 4:20pm BP Diastolic 71 mm[Hg] 60-90 March 07, 2024 4:20pm Height 72 [in_i] March 12, 2024 8:33am Weight 67.75 kg March 12, 2024 8:33am Heart Rate 70 /min 60-100 March 12, 2024 8:33am Respiratory rate 18 /min -March 022023 8:33am Oxygen saturation by Pulse oximetry 94 % 90-100 March 12, 2024 8:33am BP Systolic 142 mm[Hg] 100-140 March 12, 2024 9:18am BP Diastolic 60 mm[Hg] 60-90 March 12, 2024 9:18am BMI (Body Mass Index) 20.2 kg/m2 2023 8:33am Height 72 [in_i] March 13, 2024 6:28am Weight 67.00 kg March 13, 2024 6:28am Body Temperature 97.4 [degF] 97.6-99.6 March 022023 5:26am Heart Rate 71 /min 60-100 March 15, 2024 5:26am Respiratory rate 16 /min -March 022023 5:26am Oxygen saturation by Pulse oximetry 95 % 90-100 March 15, 2024 9:40am BP Systolic 146 mm[Hg] 100-140 March 15, 2024 5:26am BP Diastolic 66 mm[Hg] 60-90 March 15, 2024 5:26am BMI (Body Mass Index) 20.0 kg/m2 2023 6:28am Height 72 [in_i] April 01, 12:51pm Weight 66.93 kg April 01 12:51pm Heart Rate 69 /min 60-100 April 01, 12:51pm Respiratory rate 16 /min -April 12:51pm Oxygen saturation by Pulse oximetry 93 % 90-April 01, 2024 12 :51pm BP Systolic 176 mm[Hg] 100-140 April 01, 12:51pm BP Diastolic 78 mm[Hg] 60-90 April 01, 12:51pm BMI (Body Mass Index) 20.0 kg/m2 Octobe r 2023 12:51pm Height 71 [in_i] April 22, 2 3:31pm Weight 66.40 kg April 24, 2 024 5:06am Body Temperature 97.5 [degF] 97.6-99.6 April 12:00pm Heart Rate 78 /min 60-100 April 24, 2 024 12:00pm Respiratory rate 16 /min -April 12:00pm Oxygen saturation by Pulse oximetry 98 % 90-100 April 24, 2024 1 2:00pm BP Systolic 117 mm[Hg] 100-140 April 24, 2 024 12:00pm BP Diastolic 75 mm[Hg] 60-90 April 24, 2 024 12:00pm BMI (Body Mass Index) 20.5 kg/m2 Octobe r 2023 3:31pm Advance Directives Advance Directive Response Recorded Date/ Time Current Advance Directive No 2023 6:28am Current Advance Directive Yes Octobe r 2023 3:27pm Advance Directive Type Healthcare Power of Attor phi April 22, 2024 3:27pm Name of Healthcare Power Of Mouthpiece Maker Roseanne Noguera April 22, 2024 3:27pm Advance Directive Intent DNR April 22, 2024 3:27pm Insurance Providers Guarantor Noé Davila Address [address] [place] [phone] Contact Info. Home Phone: Payer Policy Id Coverage Id Subscriber's Name Subscriber Id Effective Date Expiration Date [facility] [id number] [facility] [id number] Noé Davila [id number] Medicare Parts A & B [id number] Noé Davila [id number] Self Pay Self N/A Encounters Encounter Location(s) Arrival/Admit Date Discharge/Depart Date Provider(s) Departed Physician/Provi rufus Office Visit [facility] January 29, 2024 7:58am January 29, 2024 9:18am Mely Gupta Departed Physician/Provi rufus Office Visit [facility] Medical Office February 20, 2024 9:45am February 20, 2024 10:33am Prasanth Ferrera MD Departed Emergency [facility] Emergency Department March 07, 2024 3:39pm March 07, 2024 6:50pm null Departed Physician/Provi rufus Office Visit [facility] March 12, 2024 8:29am March 12, 2024 9:18am Mely Gupta Discharged [facility] 3 Med Surg March 13, 2024 4:26am March 15, 2024 11:50am Alana Olmos APRN Departed Clinical [facility] Audiology March 28, 2024 1:50pm March 28, 2024 1:51pm Prasanth Gastelum MD Departed Physician/Provi rufus Office Visit [facility] April 01, 2024 12:50pm April 01, 2024 1:26pm Mely Gupta Discharged Inpatient [facility] 2 Medical April 22, 2024 2:22pm April 24, 2024 4:20pm Ronit Milligan APRN Recent Diagnosis Onset Date Anemia Atrial fibrillation BPH (benign prostatic hyperplasia) Constipation COPD (chronic obstructive pulmonary dise ase) Depression Dizziness Generalized weakness Hypertension Insomnia Pressure sore on buttocks Shortness of breath Vasomotor rhinitis Hyperlipidemia Encounter for Medicare annual wellness e xam BPPV (benign paroxysmal positional verti go) Vertigo Atrial fibrillation Dizziness Hypertension Pressure sore on buttocks Hospital discharge follow-up Closed sacral fracture Contusion of left thigh Contusion of left wrist Ground-level fall Hypertension Closed sacral fracture Dizziness Hypertension Hospital discharge follow-up Adult failure to thrive syndrome Atrial fibrillation Benign prostatic hyperplasia BPPV (benign paroxysmal positional verti go) Closed sacral fracture Dementia Generalized weakness Hematuria Hypertension Intermittent gross hematuria Lumbar radiculopathy Lumbar spondylosis Paresthesia of both lower extremities Functional Status Observation Response Date Recorded Functional capacity on discharge uses cane/walke r March 15, 2024 10:08am Mental Status Observation Response Date Recorded oriented to person Yes January 28 9:48am oriented to place Yes January 28 9:48am oriented to time Yes January 29, 2024 9:48am oriented to person Yes March 9:32am oriented to place Yes March 9:32am oriented to time Yes March 12, 2024 9:32am oriented to person Yes April 01, 2024 1:58pm oriented to place Yes April 01 024 1:58pm oriented to time Yes April 01 1:58pm Assessments Diagnosis Onset Date Resolution Status Anemia acute Atrial fibrillation acute BPH (benign prostatic hyperplasia) acute Constipation acute COPD (chronic obstructive pulmonary disease) acute Depression acute Dizziness acute Generalized weakness acute Hypertension acute Insomnia acute Pressure sore on buttocks ac [place] Shortness of breath acute Vasomotor rhinitis acute Hyperlipidemia chronic Encounter for Medicare annual wellness exam noneactive BPPV (benign paroxysmal positional vertigo) acute Vertigo noneactive Atrial fibrillation acute Dizziness acute Hypertension acute Pressure sore on buttocks ac [place] Hospital discharge follow-up noneactive Closed sacral fracture acute Contusion of left thigh acut e Contusion of left wrist acut e Ground-level fall acute Hypertension acute Closed sacral fracture acute Dizziness acute Hypertension acute Hospital discharge follow-up noneactive Adult failure to thrive syndrome acute Atrial fibrillation acute Benign prostatic hyperplasia acute BPPV (benign paroxysmal positional vertigo) acute Closed sacral fracture acute Dementia acute Generalized weakness acute Hematuria acute Hypertension acute Intermittent gross hematuria acute Lumbar radiculopathy acute Lumbar spondylosis acute Paresthesia of both lower extremities acute Plan of Treatment Author Mely Gupta [facility] Authored January 29, 2024 9:48 am pt appears to be stable. Lab s ordered - will call with results. F/u in 6months, sooner as needed hx of anemia. check labs treated with atorvastatin - check labs bp initially elevated, then improved. Follows with finish specialist. continue losartan 50mg daily treated with doxazosin with symptoms stable - continue sob with COPD treated with albuterol as needed with improved symptoms. He does not need to use albuterol inhaler daily. treated with humidifier. He has ipratropium nasal spray which he does not use chronic, follows with finish specialist. may start Eliquis or Xarelto soon chronic and intermittent. Safety with ambulation. Discussed meclizine - will hold at this time. treated with Miralax as needed. Ensure adequate hydration treated with albuterol as needed with symptoms stable increased weakness with a fall last week. He is not moving around as much as prior. Refer to PT for evaluation and treatment. urged to move around every 1-2hrs during the day. Start applying otc ointment with 40% zinc oxide 2x/day. Keep clean and dry. Refer to SN to ensure adequate healing start trazodone 25mg nightly to help with mood and insomnia. May increase to 50mg pending tolerability and results. Call with concerns. per above Author Prasanth Ferrera [facility] Authored February 20, 2024 4: 34pm see HPI Author Mely Gupta [facility] Authored March 12, 2024 9:32am records reviewed. cellulitis to hand has resolved. He does have scab to Left hand which is healing. Continue remainder cephalexin. If scab opens, ensure to apply mupirocin BID. Call with question. keep next scheduled appt, sooner as needed improving, but does have thick scab to left buttocks which may leave open skin if it comes off. Continue with cream bid. Will see if [employer] wound paste is covered as it worked well, if not continue with otc cream. Rediscussed frequent position change intermittent dizziness. carotids without bruits. Going to be evaluated by PT for vertigo tomorrow. Discussed afib as being possible cause. His HR is irregular today. Start metoprolol 25mg daily. Stop losartan. Monitor bp and HR daily. Call with update in a few days, sooner with concerns. following with finish specialist. may consider Eliquis/Xarelto with new insurance ok on recheck. change medication per above and monitor for improvement in dizziness. per above Author Mely Gupta [facility] Authored April 01, 2024 2: 01pm pt appears to stable and doi ng well. Reviewed dc records. Continue with PT, call with concerns. F/u in 6months with labs prior, sooner as needed. Denies pain. 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 No worsening of symptoms. Discussed s/s to monitor for including changes in bowel/bladder, weakness to bilateral legs, and worsening neuropathy. Continue with PT well controlled on losartan - continue intermittent. check carotid Doppler. Safety with ambulation Future Tests Future scheduled test information is unavailable Pending Tests Test Name Ordered Date Scheduled Date US carotid duplex BI April 01, 2024 1:13pm PT Treatment Clarification March 14, 2024 11:08am March 14, 2024 11:08am Future Visits Future appointment information is unavailable Referrals to Other Providers Reason for Referral Referral Start Date Provider Provider Contact Information Provider Address R53.1 - Weakness,L89.309 - Pressure ulcer of unspecified buttock, unspecified stage January 29, 2024 [place] [address] R53.1 - Weakness January 29, 2024 [place] [address] R42 - Dizziness and giddiness February 14, 2024 [facility] , PT Work Phone: [facility] [address] [facility] [address] H81.10 - Benign paroxysmal vertigo, unspecified ear February 20, 2024 by patient Determined Mely Gupta Work Phone : [address] [address] [address] [facility] [address] Mely Gupta Work Phone : [phone] [address] [address] [facility] [address] Mely Gupta Work Phone : [address] [place] [address] [address] [facility] [address] Future Procedures Procedure Name Ordered Date Scheduled Date Complete Blood Count with Diff April 01, 2024 1:59pm 5 Months Comprehensive Metabolic Panel April 01, 2024 1:59pm 5 Months Lipid Panel April 01, 2024 1:59pm 5 Month s Discharge Order March 15, 2024 10:03am March 15, 2024 10:03am Placement to Observation March 13, 2024 4: 26am March 13, 2024 4:26am OT Treatment Clarification March 12:14pm March 14, 2024 12:14pm Care Coordination Consult April 22, 2024 4:0 7pm April 22, 2024 12:00am Discharge Order April 24, 2024 3:58pm Octobe r 2023 3:58pm Placement to Observation April 22, 2024 2:22 pm April 22, 2024 2:22pm OT Discharge Clarification April 24, 2024 2: 01pm April 24, 2024 2:01pm PT Discharge Clarification April 24, 2024 9: 04am April 24, 2024 9:04am Consult to Physician April 22, 2024 4:06pm O ctober 2023 12:00am Consult to Physician April 24, 2024 9:55am O ctober 2023 12:00am Consult to Physician April 23, 2024 12:40pm April 23, 2024 12:00am Future Medications Future medication information is unavailable Patient Instructions A-fib (Atrial Fibrillation) (AC) Constipation in Children (AC) Constipation in Children (GEN) Constipation (AC) Constipation (GEN) Depression (AC) COPD (Chronic Obstructive Pulmonary Disease) (AC) Hypertension (AC) Anemia (AC) Antibiotic Form Cellulitis (ED) A-fib (Atrial Fibrillation) (AC) Hypertension (AC) Sacral Fracture (DC) Hypertension (AC) Hematuria (GEN) Weakness (DC) Goals Acute Goals Author Authored Date Adapt to partial or total he aring loss * Learns optimal communication methods * Wears hearing aid [facility] March 15, 2024 11:59am Reduced risk of bleeding * Exhibits lab results WNL [facility] March 15, 2024 11:59am Remain free of injury *Follows Safety Interventions [facility] March 15, 2024 11:59am Show improved communication ability * Demonstrates increased ability to understand and communicate needs [facility] March 15, 2024 11:59am Maintain an effective breath ing pattern * Maintains a patent airway * Maintains vital signs WNL * Maintains optimal breath sounds [facility] March 15, 2024 2:46am Adapt to partial or total vi vickie loss * Uses corrective lenses * Performs ADL's * Uses safety measures [facility] March 15, 2024 2:46am Exhibit optimal tissue integ rity * Exhibits granulation/healing at site * Exhibits decreased drainage at site * Exhibits no s/s of infection * Exhibits a decrease in lesion size * Maintains nutritional status * Maintains hydration status * Maintains optimal lab values [facility] March 15, 2024 11:59am Maintains/improves level of orientation * Orients to person/place/time/situation [facility] March 15, 2024 11:59am Verbalizes/Demonstrates Understanding *Demonstrates understanding of teaching [facility] March 15, 2024 11:59am Participate in Discharge Renata nning In order to achieve this outcome, the patient/ and or family will: * assist in identification of DME needs * assist in identification of community resource needs * assist in identification of appropriate discharge destination [facility] March 15, 2024 11:59am Develop pain management prog toro In order to achieve this outcome the patient will: * Use the pain scale appropriately * Identify options for pain control - Analgesics - Narcotics - Non-medication measures [facility] March 15, 2024 11:59am Increase knowledge regarding pain mgmt *Demonstrates understanding of teaching [facility] March 15, 2024 11:59am *Understands Home Program fo r PT In order to achieve this outcome the patient &/or caregiver will: * Demonstrate understanding of injury/ disease * Demonstrate understanding of functional limitations * Demonstrate understanding of safety guidelines and precautions * Demonstate understanding of rehab process * Demonstrate understanding of rehab potential * Demonstrate independence with instructed materials * Demonstrate independence with edema management * Demonstrate understanding of altered sensation * Demonstrate independence with use of assistive device/equipment * Demonstrate good energy conservation techniques * Demonstrate good technique for positioning [facility] March 15, 2024 11:59am *Improve Functional Mobility In order to achieve this outcome the patient will: *Improve bed mobility to independence *Improve transfers to independence *Improve standing balance score to good x 5 min with BUE support to reduce risk for falls [facility] March 15, 2024 11:59am *Improve Locomotion Mobility In order to achieve this outcome the patient will: *Improve gait to indep using least restrictive assistive device for 100 feet to meet home/community needs *Improve stair ascending/descending 2 steps with SBA using rails/least restrictive assistive device to meet home needs. [facility] March 15, 2024 11:59am *Achieve Optimal Muscle Stre ngth In order to achieve this outcome the patient will: * Patient will be able to perform 10 repetitions of the BLE strengtehning exercises * Increase strength to improve function for transfers and ambulation [facility] March 15, 2024 11:59am *Achieve Functional Enduranc e In order to achieve this outcome the patient will: *Patient will tolerate therapeutic activity for 10 minutes without a break *Improve endurance for functional/ADL activity [facility] March 15, 2024 11:59am *Improved Safety Awareness In order to achieve this outcome the patient will: *Request help when needed *Demonstrate increased safety during ADL's *Demonstrate increased safety during functional mobility tasks [facility] March 15, 2024 11:59am Exhibits optimal GI function *Exhibits adequate intake and output *Exhibits adequate nutritional status [facility] March 15, 2024 11:59am Verbalizes/Demonstrates Understanding *Demonstrates understanding of teaching [facility] April 24, 2024 5:09pm Participate in Discharge Renata nning In order to achieve this outcome, the patient/ and or family will: * assist in identification of DME needs * assist in identification of community resource needs * assist in identification of appropriate discharge destination [facility] April 24, 2024 5:09pm Develop pain management prog toro In order to achieve this outcome the patient will: * Use the pain scale appropriately * Identify options for pain control - Analgesics - Narcotics - Non-medication measures [facility] April 24, 2024 5:09pm Increase knowledge regarding pain mgmt *Demonstrates understanding of teaching [facility] April 24, 2024 7:43am Maintain an effective breath ing pattern * Maintains a patent airway * Maintains vital signs WNL * Maintains optimal breath sounds [facility] April 24, 2024 5:09pm Reduced risk of bleeding * Exhibits lab results WNL [facility] April 24, 2024 5:09pm Remain free of injury *Follows Safety Interventions [facility] April 24, 2024 5:09pm Improved infection * Maintains vital signs WNL * Evidences no purulent drainage from wounds, incisions, and tubes * Maintains optimal lab values [facility] April 24, 2024 5:09pm Adapt to partial or total vi vickie loss * Uses corrective lenses * Performs ADL's * Uses safety measures [facility] April 24, 2024 5:09pm Exhibit optimal tissue integ rity * Exhibits granulation/healing at site * Exhibits decreased drainage at site * Exhibits no s/s of infection * Exhibits a decrease in lesion size * Maintains nutritional status * Maintains hydration status * Maintains optimal lab values [facility] April 24, 2024 5:09pm Maintains/improves level of orientation * Orients to person/place/time/situation [facility] April 24, 2024 5:09pm Hospital Discharge Instructions Additional Instructions Report to provider any blood in urine. Use wheeled walker and continue outpatient physical therapy. Consultation Note [facility] April 23, 2024 8:12am Note Date/Time April 23, 2024 8 :12am [id number] [place] [address] Urology Consult Note Signed Patient: Noé Davila MR#: [id number] : 1935 Acct:[id number] Age: 88 ADM Date: 04/22/24 Loc: [id number] 255-[address]: Ronit Milligan APRN cc: Ronit Milligan APRN; Lala Estrada MD; Mely Gupta APN~ Assessment and Plan Assessment and plan (1) Intermittent gross hematuria: Code(s): R31.0 - Gross hematuria Status: Acute Assessment and Plan: Most likely prostatic in origin and clinically insignificant. Will check bladder scan for postvoid residual. Will need a cystoscopy at some point in time and this can be done as an outpatient procedure in the office Urology Consult Note HPI Date Seen: 04/23/24 Time Seen: 08:09 Requesting Physician: Ronit Milligan APRN Primary Care Provider: Mely Gupta NP Consult Narrative Reason for consult: Intermittent hematuria Narrative: Noé Davila is a 88 year old male who was admitted through the emergency room with complaints of weakness and intermittent hematuria. He denies any dysuria or significant voiding symptoms. He did undergo a CT scan which revealed no evidence of stones. He has a couple 7 mm lesions left kidney which are indeterminate but most likely cysts. Patient does have some confusion. He states that the hematuria as at the start of his stream. The morning nurse in night nurse had not noticed any blood in his urine. Urinalysis reveals no evidence of infection. He does have greater than 100 red blood cells in his urine. Review of Systems Review of Systems: All systems reviewed & are unremarkable except as noted in HPI and below PMFSH Past Medical History Medical History Anemia Anxiety Atrial fibrillation Benign prostatic hyperplasia Chronic obstructive pulmonary disease Constipation Dementia Depression Hyperlipidemia Hypertension Peripheral vascular disease Seasonal allergies Surgical History Surgical History History of cholecystectomy Status post peripheral artery angioplasty with insertion of stent Family History Family History Other Unknown family medical history Social History Social History Social History: Healthcare power of senior attorney: Roseanne Noguera. Code status: Smoking packs per day: 1 Smoking cigarettes per day: 20.0 Smoking status: Former smoker Tobacco type: cigarettes Smoking end date: 07/02/08 Alcohol intake: never Drinks per week: 2 Substance use: never Substance use type: does not use Do You Feel Safe in your Home?: Yes Lack of Transportation: No Lack of Food: Never True Current Housing: I Have Housing Concerned About Future Housing: No Difficulty Paying Gas/Electric Bills: No Difficulty Paying for Meds: No Currently Unemployed: No Education: Grade School Difficulty w/ Childcare or Family Care: No Spiritual care concerns: No Meds Home Medications and Allergies Home Medications Medication Instructions Recorded Confirmed Type aspirin 81 mg tablet,delayed 81 mg PO DAILY 12/12/21 04/22/24 History release losartan 50 mg tablet 50 mg PO DAILY #30 tabs 12/01/23 04/22/24 Rx albuterol sulfate 90 mcg/actuation 1 - 2 inh inhalation Q4-6H PRN 12/10/23 04/22/24 Rx aerosol inhaler shortness of breath or wheezing #8.5 grams ipratropium bromide 21 mcg (0.03 2 spray intranasal .qd-tid #30 mL 02/20/24 04/22/24 Rx %) nasal spray atorvastatin 20 mg tablet 20 mg PO DAILY #30 tabs 03/12/24 04/22/24 Rx polyethylene glycol 3350 17 gram 17 g PO QAM #7 ea 03/15/24 04/22/24 Rx oral powder packet (Miralax) doxazosin 1 mg tablet 1 mg PO DAILY 04/22/24 04/22/24 History Allergies Allergy/AdvReac Type Severity Reaction Status Date / Time No Known Allergies Allergy Verified 04/22/24 08:10 Vital Signs Vital Signs - 24 hr 04/22/24 10:32 04/22/24 11:15 04/22/24 12:15 Temperature Pulse Rate 70 68 68 Respiratory Rate 16 15 Blood Pressure 191/83 H 218/87 H 182/82 H Pulse Oximetry 97 97 96 Oxygen Delivery 04/22/24 14:06 04/22/24 15:17 04/22/24 15:04 Temperature 36.4 C 36.4 C Pulse Rate 75 69 83 Respiratory Rate 16 15 Blood Pressure 171/67 H 160/74 H 159/65 H Pulse Oximetry 100 96 96 Oxygen Delivery 04/22/24 18:05 04/22/24 18:28 04/22/24 19:41 Temperature 36.4 C Pulse Rate 69 Respiratory Rate 20 Blood Pressure 150/61 H 170/88 H Pulse Oximetry 98 Oxygen Delivery Room Air 04/23/24 04:29 04/22/24 21:22 04/22/24 15:26 Temperature 36.2 C L 36.4 C Pulse Rate 64 69 Respiratory Rate 20 16 Blood Pressure 174/76 H 160/74 H Pulse Oximetry 97 97 96 Oxygen Delivery Room Air Exam Const: General: cooperative, comfortable and no acute distress Resp: Effort & Inspection: normal respiratory effort Cardio: Rate: regular rate Rhythm: regular rhythm Results Labs 04/22/24 08:37 04/22/24 08:37 Labs: Short CBC 04/22/24 Range/Units 08:37 WBC 5.0 (4.5-10.0) K/mm3 Hgb 14.5 (14.0-18.0) g/dL Hct 43.6 (42.0-52.0) % Plt Count 164 (150-375) k/mm3 BMP 04/22/24 08:37 Sodium 138 Potassium 4.5 Chloride 104 Carbon Dioxide 26 BUN 19 Creatinine 1.00 Glucose 104 Calcium 9.4 Liver Function 04/22/24 Range/Units 08:37 Total Bilirubin 1.1 (0.2-1.3) mg/dL AST 19 (17-59) U/L ALT 13 (6-50) U/L Alkaline Phosphatase 104 (38-126) U/L Albumin 4.1 (3.5-5.1) g/dL Urine 04/22/24 Range/Units 10:36 Urine Color Yellow (Yellow) Urine Appearance Clear (Clear) Urine pH 7.0 (5.0-9.0) Ur Specific [place] 1.016 (1.001-1.035) Urine Protein Negative (Negative) mg/dL Urine Glucose (UA) Negative (Negative) mg/dL This report may have been done utilizing a voice recognition system. Attempts have been made to correct errors. However, there may be uncorrected grammatical,spelling, and recognition errors present. Report Initialized date/time: Toñito Burrows MD 04/23/24811 Electronically signed by: Toñito Burrows MD 04/23/24811 Consultation Note Author Bindu Fried [facility] April 24, 2024 1:12pm Note Date/Time April 24, 2024 1 :12pm [facility] [address] [place], [place] [id number] Neurosurgical Consult Note Signed Patient: Noé Davila MR#: [id number] : 1935 Acct:[id number] Age: 88 ADM Date: 04/22/24 Loc: [id number] 255-[address]: Ronit Milligan APRN cc: Ronit Milligan APRN; Lala Estrada MD; Mely Gupta APN~ Assessment and Plan Assessment and plan (1) Closed sacral fracture: Code(s): S32.10XA - Unspecified fracture of sacrum, initial encounter for closed fracture Status: Acute Plan I was contacted regarding a consult request for a sacral fracture. According to the notes, he was already aware of this diagnosis and was found to have the fracture a month ago after a fall. He has been receiving therapy as an outpatient. On review of the patient's imaging, he has a healing/subacute fracture involving the S3 and S4 segments of his sacrum. I notified the hospitalist that I do not treat sacral fractures of his nature and that these have been evaluated by Orthopedics in my experience. I do not anticipate that hewould need any specific treatment for this, particularly since it was already identified a month ago. If there are further questions, I would recommend contacting Orthopedics or the provider who is already treating him for this fracture. Consult date: 04/24/24 HPI: Noé Davila is a 88 year old male [facility] Past Medical History Medical History Anemia Anxiety Atrial fibrillation Benign prostatic hyperplasia Chronic obstructive pulmonary disease Constipation Dementia Depression Hyperlipidemia Hypertension Peripheral vascular disease Seasonal allergies Surgical History Surgical History History of cholecystectomy Status post peripheral artery angioplasty with insertion of stent Family History Family History Other Unknown family medical history Social History Social History Social History: Healthcare power of senior attorney: Roseanne Noguera. Code status: Smoking packs per day: 1 Smoking cigarettes per day: 20.0 Smoking status: Former smoker Tobacco type: cigarettes Smoking end date: 07/02/08 Alcohol intake: never Drinks per week: 2 Substance use: never Substance use type: does not use Do You Feel Safe in your Home?: Yes Lack of Transportation: No Lack of Food: Never True Current Housing: I Have Housing Concerned About Future Housing: No Difficulty Paying Gas/Electric Bills: No Difficulty Paying for Meds: No Currently Unemployed: No Education: Grade School Difficulty w/ Childcare or Family Care: No Spiritual care concerns: No Meds Home Medications and Allergies Home Medications Medication Instructions Recorded Confirmed Type aspirin 81 mg tablet,delayed 81 mg PO DAILY 12/12/21 04/22/24 History release losartan 50 mg tablet 50 mg PO DAILY #30 tabs 12/01/23 04/22/24 Rx albuterol sulfate 90 mcg/actuation 1 - 2 inh inhalation Q4-6H PRN 12/10/23 04/22/24 Rx aerosol inhaler shortness of breath or wheezing #8.5 grams ipratropium bromide 21 mcg (0.03 2 spray intranasal .qd-tid #30 mL 02/20/24 04/22/24 Rx %) nasal spray atorvastatin 20 mg tablet 20 mg PO DAILY #30 tabs 03/12/24 04/22/24 Rx polyethylene glycol 3350 17 gram 17 g PO QAM #7 ea 03/15/24 04/22/24 Rx oral powder packet (Miralax) doxazosin 1 mg tablet 1 mg PO DAILY 04/22/24 04/22/24 History Allergies Allergy/AdvReac Type Severity Reaction Status Date / Time No Known Allergies Allergy Verified 04/22/24 08:10 Vital Signs Vital Signs - 24 hr 04/23/24 16:00 04/23/24 19:57 04/24/24 00:00 Temperature 97.6 F 97.7 F 98.1 F Pulse Rate 72 77 65 Respiratory Rate 19 17 17 Blood Pressure 168/74 H 165/65 H 169/71 H Pulse Oximetry 96 97 95 Oxygen Delivery 04/24/24 03:33 04/24/24 08:00 04/24/24 08:56 Temperature 98.4 F 97.2 F L Pulse Rate 62 70 Respiratory Rate 17 18 Blood Pressure 161/77 H 138/93 H Pulse Oximetry 96 96 Oxygen Delivery Room Air 04/24/24 11:48 Temperature 97.5 F L Pulse Rate 78 Respiratory Rate 18 Blood Pressure 117/75 Pulse Oximetry 98 Oxygen Delivery Results Labs 04/24/24 08:02 04/24/24 08:02 Labs: Short CBC 04/24/24 Range/Units 08:02 WBC 5.7 (4.5-10.0) K/mm3 Hgb 15.6 (14.0-18.0) g/dL Hct 46.7 (42.0-52.0) % Plt Count 167 (150-375) k/mm3 BMP 04/24/24 08:02 Sodium 135 L Potassium 4.7 Chloride 102 Carbon Dioxide 27 BUN 25 H Creatinine 1.10 Glucose 111 H Calcium 9.2 Liver Function 04/24/24 Range/Units 08:02 Total Bilirubin 0.9 (0.2-1.3) mg/dL AST 18 (17-59) U/L ALT 13 (6-50) U/L Alkaline Phosphatase 113 (38-126) U/L Albumin 4.0 (3.5-5.1) g/dL This report may have been done utilizing a voice recognition system. Attempts have been made to correct errors. However, there may be uncorrected grammatical,spelling, and recognition errors present. Report Initialized date/time: Bindu Fried MD 04/24/241311 Electronically signed by: Bindu Fried MD 04/24/241311 Consultation Note Author [facility] April 24, 2024 4:00pm Note Date/Time April 24, 2024 2 :51pm [place] [address] Orthopedic Consult Note Signed Patient: Noé Davila MR#: [id number] : 1935 Acct:[id number] Age: 88 ADM Date: 04/22/24 Loc: [id number] 255-[address]: Ronit Milligan APRN cc: Ronit Milligan APRN; Lala Estrada MD; Mely Gupta APN~ Patient seen and examined. Medical records and orthopedic consultation note reviewed. 88-year-old status post fall approximately 6 weeks ago. Found to have sacral fracture at S4 level. No pain at this time. Does have intermittent numbness and weakness in bilateral legs. New symptoms since fall. On exam neurologically intact lower extremities, bilateral. Good strength noted. Ambulating well with use of walker. Fracture appears healed. Continue with outpatient physical therapy when patient is discharged. No further recommendations or treatment indicated. Discussed with patient and his daughter. -Dr. Trimble Assessment and Plan Assessment and plan (1) Closed sacral fracture: Qualifiers: Encounter type: sequela Zone of sacrum fracture: unspecified portion ofsacrum Qualified Code(s): S32.10XS - Unspecified fracture of sacrum, sequela Code(s): S32.10XA - Unspecified fracture of sacrum, initial encounter for closed fracture Status: Acute Assessment and Plan: sacral MRI reveals a nondisplaced transverse fracture extending across S4 with additional nondisplaced oblique fracture extending across the posterior inferioraspect of S3 segment. Mild away of bilateral hip joints noted as well as prostatomegaly. Per the patient medical records, this fracture is chronic in nature. He has been going to physical therapy. He is ambulating without severepain. He is using a walker. He is able to sit without pain. He did notice an onset of bilateral lower extremity numbness and tingling which is intermittent in nature since his fall. Lumbar spine MRI obtained. See below. Continue conservative treatment for sacral fractures. Weightbearing as tolerated. Physical therapy. Fall precautions. Patient may follow-up in the orthopedic clinic as an outpatient if needed. No surgical indication at this time. Thank you for allowing us to assist in the care this patient. (2) Lumbar spondylosis: Code(s): M47.816 - Spondylosis without myelopathy or radiculopathy, lumbar region Status: Acute Assessment and Plan: MRI of the lumbar spine reveals multilevel degenerative disc disease, spinal canal stenosis, intervertebral foraminal narrowing and nerve root compression. no acute fractures. On exam, patient is neurovascularly intact bilateral lower extremities. Per patient and family, his intermittent numbness and tingling is new but intermittent in nature. Recommended follow-up with pain management as an outpatient for possible lumbar spine injections pending healing of the sacralfractures. We will provide patient with pain management referral upon discharge. Continue PT and OT with weight-bearing as tolerated. No surgical intervention at this time. See recommendations from Neurosurgery as well. Thank you for allowing us to assist in the care of this patient. (3) Lumbar radiculopathy: Code(s): M54.16 - Radiculopathy, lumbar region Status: Acute Plan Reviewed history, exam, radiographs and current labs with attending MD and covering surgeon, Dr. Trimble, who agrees with current plan as indicated above. No further recommendations from Dr. Trimble at this time. History of Present Illness HPI Consult date: 04/24/24 Chief complaint: FTT/Gen Weakness/Hematuria Narrative: Orthopedic consult for this 88 year old male for nondisplaced fractures of S4 and S3 which are chronic in nature and new onset, intermittent lower extremity numbness/tingling. History, exam and radiographs reviewed with the patient and family. Neurosurgery consulted as well and deferred treatment to orthopedics. Patient denies difficulty with ambulation and/or pain control. Working well withPT on an outpatient basis. Is not currently following with orthopedics. Admittedfor weakness and hematuria. Review of Systems Review of Systems: All systems reviewed & are unremarkable except as noted in HPI and below PMFSH Past Medical History Medical History (Updated 04/24/24 @ 15:40 by IVELISSE Clark) Anemia Anxiety Atrial fibrillation Benign prostatic hyperplasia Chronic obstructive pulmonary disease Constipation Dementia Depression Hyperlipidemia Hypertension Lumbar radiculopathy Lumbar spondylosis Peripheral vascular disease Seasonal allergies Surgical History Surgical History History of cholecystectomy Status post peripheral artery angioplasty with insertion of stent Family History Family History Other Unknown family medical history Social History Social History Social History: Healthcare power of senior attorney: Roseanne Noguera. Code status: Smoking packs per day: 1 Smoking cigarettes per day: 20.0 Smoking status: Former smoker Tobacco type: cigarettes Smoking end date: 07/02/08 Alcohol intake: never Drinks per week: 2 Substance use: never Substance use type: does not use Do You Feel Safe in your Home?: Yes Lack of Transportation: No Lack of Food: Never True Current Housing: I Have Housing Concerned About Future Housing: No Difficulty Paying Gas/Electric Bills: No Difficulty Paying for Meds: No Currently Unemployed: No Education: Grade School Difficulty w/ Childcare or Family Care: No Spiritual care concerns: No Meds Home Medications and Allergies Home Medications Medication Instructions Recorded Confirmed Type aspirin 81 mg tablet,delayed 81 mg PO DAILY 12/12/21 04/22/24 History release losartan 50 mg tablet 50 mg PO DAILY #30 tabs 12/01/23 04/22/24 Rx albuterol sulfate 90 mcg/actuation 1 - 2 inh inhalation Q4-6H PRN 12/10/23 04/22/24 Rx aerosol inhaler shortness of breath or wheezing #8.5 grams ipratropium bromide 21 mcg (0.03 2 spray intranasal .qd-tid #30 mL 02/20/24 04/22/24 Rx %) nasal spray atorvastatin 20 mg tablet 20 mg PO DAILY #30 tabs 03/12/24 04/22/24 Rx polyethylene glycol 3350 17 gram 17 g PO QAM #7 ea 03/15/24 04/22/24 Rx oral powder packet (Miralax) doxazosin 1 mg tablet 1 mg PO DAILY 04/22/24 04/22/24 History Allergies Allergy/AdvReac Type Severity Reaction Status Date / Time No Known Allergies Allergy Verified 04/22/24 08:10 Vital Signs Vital Signs - 24 hr 04/23/24 16:00 04/23/24 19:57 04/24/24 00:00 Temperature 36.4 C 36.5 C 36.7 C Pulse Rate 72 77 65 Respiratory Rate 19 17 17 Blood Pressure 168/74 H 165/65 H 169/71 H Pulse Oximetry 96 97 95 Oxygen Delivery 04/24/24 03:33 04/24/24 08:00 04/24/24 08:56 Temperature 36.9 C 36.2 C L Pulse Rate 62 70 Respiratory Rate 17 18 Blood Pressure 161/77 H 138/93 H Pulse Oximetry 96 96 Oxygen Delivery Room Air 04/24/24 11:48 04/24/24 12:00 Temperature 36.4 C L 36.4 C L Pulse Rate 78 78 Respiratory Rate 18 16 Blood Pressure 117/75 117/75 Pulse Oximetry 98 98 Oxygen Delivery Exam Const: General: comfortable and no acute distress HENMT: Mouth: Yes moist mucous membranes Eyes: General: appearance normal, both eyes and all related structures Neck: Neck: supple and no JVD Resp: Effort & Inspection: normal respiratory effort Cardio: Rate: regular rate Rhythm: regular rhythm GI: Inspection: non-distended GI Palp: Yes Soft to palpation and No Tenderness to palpation present (GI) Back/Spine/Pelvis: Sacrum: tenderness Neuro: General: gait normal Cognition (Neuro): normal cognition Speech: normal speech Extrem: Right lower extremity: hip/thigh Details: normal to inspection and normal ROM; no tenderness and no swelling, knee Details: normal to inspection; no tenderness, lower leg Details: normal to inspection, palpable cord and no edema; no tenderness and no localized swelling, ankle Details: normal to inspection and normal ROM and foot Details: vascular exam Details: dorsalis pedis pulse present Left lower extremity: hip/thigh Details: normal to inspection and normal ROM; no tenderness, knee Details: normal to inspection; notenderness, lower leg Details: palpable cord and no edema; no tenderness and no localized swelling, ankle Details: normal to inspection and normal ROM and foot Details: vascular exam Details: dorsalis pedis pulse present Psych: Mental Status: mental status grossly normal Affect: normal affect Results Labs 04/24/24 08:02 04/24/24 08:02 Labs: Abnormal lab results 04/24/24 Range/Units 08:02 Sodium 135 L (137-145) mmol/L BUN 25 H (9-20) mg/dL Glucose 111 H (65-110) mg/dL H & H 04/22/24 04/24/24 Range/Units 08:37 08:02 Hgb 14.5 15.6 (14.0-18.0) g/dL Hct 43.6 46.7 (42.0-52.0) % Coagulation 04/22/24 Range/Units 08:37 INR 1.0 All other labs normal. This report may have been done utilizing a voice recognition system. Attempts have been made to correct errors. However, there may be uncorrected grammatical,spelling, and recognition errors present. Report Initialized date/time: Padmaja Fenton APRN 04/24/241 Electronically signed by: Padmaja Fenton APRN 04/24/24 7707 Juan Trimble MD 04/24/24 1600 Discharge Summary Note Author Tabatha [facility] April 24, 2024 4:05pm Note Date/Time April 24, 2024 4 :05pm [address] [address] Discharge Summary Signed Patient: Noé Davila MR#: [id number] : 1935 Acct:[id number] Age: 88 ADM Date: 04/22/24 Loc: [id number] 255-[address]: Ronit Milligan APRN cc: oRnit Milligan APRN; Lala Estrada MD; Mely Gupta APN~ DS: Admitting Diagnosis Discharge Date 04/24/2024 Admitting Diagnosis Blood in urine and weakness. DS: Discharge Diagnosis Discharge Diagnosis (1) Intermittent gross hematuria: Code(s): R31.0 - Gross hematuria Status: Acute (2) BPPV (benign paroxysmal positional vertigo): Code(s): H81.10 - Benign paroxysmal vertigo, unspecified ear Status: Acute (3) Generalized weakness: Code(s): R53.1 - Weakness Status: Acute (4) Lumbar radiculopathy: Code(s): M54.16 - Radiculopathy, lumbar region Status: Acute (5) Lumbar spondylosis: Code(s): M47.816 - Spondylosis without myelopathy or radiculopathy, lumbar region Status: Acute (6) Hypertension: Code(s): I10 - Essential (primary) hypertension Status: Acute (7) Paresthesia of both lower extremities: Code(s): R20.2 - Paresthesia of skin Status: Acute (8) Dementia: Code(s): F03.90 - Unspecified dementia, unspecified severity, without behavioral disturbance, psychotic disturbance, mood disturbance, and anxiety Status: Acute DS: Summary Hospital Course Hospital Course: This is an 88-year-old male with BPH who presented to the hospital for evaluation of blood in the urine. Workup in the hospital included an abdomen and pelvic CT which was negative for any etiology for hematuria, showed healing subacute transverse fracture of S4 of the sacrum. Head CT showed stable moderate nonspecific cerebral white matter disease which likely represents chronic small vessel ischemic disease. Initial labs shown a normal white blood cell count of 5.0 otherwise unremarkable. A UA was obtained which showed 3+ urine blood, greater than 100 urine RBC, otherwise normal. Patient was given dose of hydralazine while in the ED. Urology was consulted and plans for outpatient cystoscopy at some point outpatient as this is likely due to his prostate. Sacral MRI showed:IMPRESSION: 1. Nondisplaced transverse fracture extending across S4 with additional nondisplaced oblique fracture extending across the posterior inferior aspect of the S3 segment. 2. Prostatomegaly. Lumbar MRI showed: IMPRESSION: No compression fracture. Multilevel degenerative disc disease or spinal canal stenosis, intervertebral foraminal narrowing and nerve root compression. Orthopedic consulted and recommended to continue conservative treatment for sacral fractures. Weightbearing as tolerated. Physical therapy. Fall precautions. Patient may follow-up in the orthopedic clinic as an outpatient ifneeded. No surgical indication at this time. Time Spent with Patient Time attestation: Total time spent providing and/or coordinating discharge services: Time spent: Greater than 30 minutes Exam Narrative: Const: General: comfortab le and no acute di stress Eyes: Sclera: sclerae no rmal Resp: Effort & Inspectio n: normal respirat ory effort Auscul tation: clear to a uscultation bilate rally Cardio: Rate: regular rate Rhythm: regular rhythm GI: GI Palp: Yes Soft to palpation Ausc ultation: normal b owel sounds Other : Last BM . : Other: Voiding w ithout difficulty. Skin: General skin exam: no rashes or lesi ons noted Extrem: General: normal to inspection Psych: Affect: normal aff ect DS: Data Data Completed and Pending Labs on day of discharge: Labs from last 24 hours 04/24/24 08:02 WBC 5.7 RBC 4.94 Hgb 15.6 Hct 46.7 MCV 94.5 MCH 31.6 MCHC 33.4 RDW 13.6 Plt Count 167 MPV 10.3 Immature Gran % (Auto) 0.4 Neut % (Auto) 67.6 Lymph % (Auto) 19.0 [place] % (Auto) 7.9 Eos % (Auto) 4.4 Baso % (Auto) 0.7 Lymph # (Auto) 1.08 [place] # (Auto) 0.5 Eos # (Auto) 0.3 Baso # (Auto) 0.0 Abs Immat Gran (auto) 0.02 Absolute Neuts (auto) 3.8 Absolute Nucleated RBC 0.000 Nucleated RBC % 0.0 Sodium 135 L Potassium 4.7 Chloride 102 Carbon Dioxide 27 Anion Gap 6 BUN 25 H Creatinine 1.10 Estim Creat Clear Calc 39 Estimated GFR > 60 Glucose 111 H Calcium 9.2 Magnesium 2.1 Total Bilirubin 0.9 AST 18 ALT 13 Alkaline Phosphatase 113 Total Protein 7.0 Albumin 4.0 Discharge Plan Discharge Attending physician on discharge: Ayden Fitzpatrick Consulting providers: Toñito Burrows; Bindu Fried; Juan Trimble Discharging Clinician: Tabatha Gillette Anticipated Discharge Date/Time: 04/24/24 16:00 Patient Disposition: Home, Self-Care Activity: may shower Diet: regular Discharge Instructions: * Report to provider any blood in urine. * Use wheeled walker and continue outpatient physical therapy. Patient Instructions: Hematuria (GEN), Weakness (DC) Stand Alone Forms: General Discharge Information Follow-up/Referrals: Mely Gupta, MENTAL HEALTH THERAPIST [Primary Care Provider] - 1 Week Discharge Medications: New hydralazine 10 mg tablet 10 mg PO BID Qty: 60 0RF Continued ipratropium bromide 21 mcg (0.03 %) spray,non-aerosol 2 spray intranasal .qd-tid Qty: 30 1RF Rx Instructions: administer into each nostril. Aim back/up/out aspirin 81 mg tablet,delayed release (DR/EC) 81 mg PO DAILY polyethylene glycol 3350 [Miralax] 17 gram Powder In Packet 17 g PO QAM Qty: 7 0RF doxazosin 1 mg tablet 1 mg PO DAILY losartan 50 mg tablet 50 mg PO DAILY Qty: 30 11RF Hold Instructions: .Provider Order albuterol sulfate 90 mcg/actuation HFA aerosol inhaler 1 - 2 inh inhalation Q4-6H PRN (Reason: shortness of breath or wheezing) Qty: 8.5 2RF atorvastatin 20 mg tablet 20 mg PO DAILY Qty: 30 11RF Date of admission: 04/22/24 14:22 Primary Care Provider: Mely Gupta Admitting Provider: Ayden Fitzpatrick Attending physician on admission: Ronit Milligan Condition: Stable Hospitalist MIPS Heart Failure (Exclusion) Patient has history of Heart Transplant or Left Ventricular Assistive Device?: No IF YES, STOP HERE Heart Failure (Qualifier) Patient has current or prior documentation of LVEF less than or equal to 40%, or mod/servere depressed LVSF?: No IF NO, STOP HERE This report may have been done utilizing a voice recognition system. Attempts have been made to correct errors. However, there may be uncorrected grammatical, spelling, and recognition errors present. Report Initialized date/time: Tabatha Gillette MUSICAL STRING MAKER 04/24/24 / 1605 Electronically signed by: Tabatha Gillette MUSICAL STRING MAKER 04/24/24 1605 History & Physical Note Author Ree Brizuela [facility] April 22, 2024 10:23pm Note Date/Time April 22, 2024 3 :[address] [place] [address] [address] [place] [id number] History & Physical Report Signed Patient: Noé Davila MR#: [id number] : 1935 Acct:[id number] Age: 88 ADM Date: 04/22/24 Loc: [id number] 255-[address]: Ayden Fitzpatrick M.D. cc: Lala Estrada MD; Ayden Fitzpatrick MD; Mely Gupta APN~ H&P: HPI History of Present Illness Date/Time: 04/22/24 15:30 Chief Complaint: Blood in urine. Narrative: This is pleasant 88-year-old male with history of benign prostatic hyperplasia, chronic atrial fibrillation not on anticoagulation, peripheral arterial disease,hypertension, hyperlipidemia, and dementia who presented to the emergency department via private vehicle with complaints of blood in urine. The patient and his family members provide the following history. He gives a 1 week history of intermittent blood in the urine which seems to have been more frequent the last couple of days. Family members report that he is increasingly confused and more weak than usual however he is currently in physical therapy for leg weakness. He denies fever, chills, sweats, abdominal pain, back pain, dysuria, nausea, and vomiting. In the ED: He was afebrile on arrival. Blood pressures have been running in the 160s to 180s systolic. CMP and CBC were pretty unremarkable. Urinalysis was positive for 3+ blood and greater than 100 WBC were seen on microscopy. CT of the abdomen and pelvis showed no specific etiology for hematuria. He was given his daily dose of losartan with improvement his blood pressures. Hospitalist service was asked to admit the patient in this setting due to his weakness. Review of Systems Review of Systems: 12 systems were reviewed and are negativ e except for as per HPI. [facility] Past Medical History Medical History (Updated 04/22/24 @ 16:03 by Ree Brizuela PA-C) Anemia Anxiety Atrial fibrillation Benign prostatic hyperplasia Chronic obstructive pulmonary disease Constipation Dementia Depression Hyperlipidemia Hypertension Peripheral vascular disease Seasonal allergies Surgical History Surgical History (Updated 04/22/24 @ 15:59 by Ree Brizuela PA-C) History of cholecystectomy Status post peripheral artery angioplasty with insertion of stent Family History Family History Other Unknown family medical history Social History Social History Social History: Healthcare power of senior attorney: Roseanne Nougera. Code status: Smoking packs per day: 1 Smoking cigarettes per day: 20.0 Smoking status: Former smoker Tobacco type: cigarettes Smoking end date: 07/02/08 Alcohol intake: never Drinks per week: 2 Substance use: never Substance use type: does not use Do You Feel Safe in your Home?: Yes Lack of Transportation: No Lack of Food: Never True Current Housing: I Have Housing Concerned About Future Housing: No Difficulty Paying Gas/Electric Bills: No Difficulty Paying for Meds: No Currently Unemployed: No Education: Grade School Difficulty w/ Childcare or Family Care: No Spiritual care concerns: No Meds Home Medications and Allergies Home Medications Medication Instructions Recorded Confirmed Type aspirin 81 mg tablet,delayed 81 mg PO DAILY 12/12/21 04/22/24 History release losartan 50 mg tablet 50 mg PO DAILY #30 tabs 12/01/23 04/22/24 Rx albuterol sulfate 90 mcg/actuation 1 - 2 inh inhalation Q4-6H PRN 12/10/23 04/22/24 Rx aerosol inhaler shortness of breath or wheezing #8.5 grams ipratropium bromide 21 mcg (0.03 2 spray intranasal .qd-tid #30 mL 02/20/24 04/22/24 Rx %) nasal spray atorvastatin 20 mg tablet 20 mg PO DAILY #30 tabs 03/12/24 04/22/24 Rx polyethylene glycol 3350 17 gram 17 g PO QAM #7 ea 03/15/24 04/22/24 Rx oral powder packet (Miralax) doxazosin 1 mg tablet 1 mg PO DAILY 04/22/24 04/22/24 History Allergies Allergy/AdvReac Type Severity Reaction Status Date / Time No Known Allergies Allergy Verified 04/22/24 08:10 Vital Signs Vital Signs - 24 hr 04/22/24 08:05 04/22/24 10:32 04/22/24 11:15 Temperature 97.5 F L Pulse Rate 66 70 68 Respiratory Rate 15 16 15 Blood Pressure 198/89 H 191/83 H 218/87 H Pulse Oximetry 97 97 97 Oxygen Delivery Room Air 04/22/24 12:15 04/22/24 14:06 04/22/24 15:17 Temperature 97.6 F Pulse Rate 68 75 69 Respiratory Rate 16 Blood Pressure 182/82 H 171/67 H 160/74 H Pulse Oximetry 96 100 96 Oxygen Delivery 04/22/24 15:04 04/22/24 15:26 Temperature 97.6 F 97.6 F Pulse Rate 83 69 Respiratory Rate 15 16 Blood Pressure 159/65 H 160/74 H Pulse Oximetry 96 96 Oxygen Delivery Exam Narrative: General: Well-developed elderly gentleman the semi-Oh position in bed. Weight: 66.7 kg. BMI: 20.5. He is in good spirits. HEENT: Slightly hard of hearing. PERRL, EOMI. Sclera anicteric. Oral mucosa moist. Neck: Supple. Respiratory: Lungs are clear to auscultation bilaterally. Cardiovascular: Regular rate and rhythm with S1-S2. Gastrointestinal: Abdomen is soft, nontender, and nondistended with positive bowel sounds. Skin: Warm and dry. Extremities: No cyanosis, clubbing, or edema. Radial and pedal pulses intact. Neurological: Alert to self. He is aware that he is in the hospital. Unable to give accurate year. Cranial nerves 2-12 are grossly intact. Speech is clear. Nofacial asymmetry. Hand senior program analyst and foot pushes are equal bilaterally. He ambulatedto the bathroom with standby without obvious issue. Psychiatric: Pleasant and cooperative with normal mood and affect. He is a bit forgetful. H&P: Results Labs Labs: Short CBC 04/22/24 Range/Units 08:37 WBC 5.0 (4.5-10.0) K/mm3 Hgb 14.5 (14.0-18.0) g/dL Hct 43.6 (42.0-52.0) % Plt Count 164 (150-375) k/mm3 BMP 04/22/24 08:37 Sodium 138 Potassium 4.5 Chloride 104 Carbon Dioxide 26 BUN 19 Creatinine 1.00 Glucose 104 Calcium 9.4 Liver Function 04/22/24 Range/Units 08:37 Total Bilirubin 1.1 (0.2-1.3) mg/dL AST 19 (17-59) U/L ALT 13 (6-50) U/L Alkaline Phosphatase 104 (38-126) U/L Albumin 4.1 (3.5-5.1) g/dL Urine 04/22/24 Range/Units 10:36 Urine Color Yellow (Yellow) Urine Appearance Clear (Clear) Urine pH 7.0 (5.0-9.0) Ur Specific [place] 1.016 (1.001-1.035) Urine Protein Negative (Negative) mg/dL Urine Glucose (UA) Negative (Negative) mg/dL Imaging Abdomen/Pelvis CT 04/22/24 12:11 IMPRESSION: 1. No specific etiology for hematuria. 2. Healing subacute transverse fracture of S4 of the sacrum. Head CT 04/22/24 13:29 IMPRESSION: 1. Stable moderate nonspecific cerebral white matter disease, which likely represents chronic small vessel ischemic disease. Assessment and Plan Assessment and plan (1) Intermittent gross hematuria: Code(s): R31.0 - Gross hematuria Status: Acute (2) Benign prostatic hyperplasia: Code(s): N40.0 - Benign prostatic hyperplasia without lower urinary tract symptoms Status: Acute (3) Generalized weakness: Code(s): R53.1 - Weakness Status: Acute (4) Hypertension: Code(s): I10 - Essential (primary) hypertension Status: Acute (5) Atrial fibrillation: Code(s): I48.91 - Unspecified atrial fibrillation Status: Acute (6) Dementia: Code(s): F03.90 - Unspecified dementia, unspecified severity, without behavioral disturbance, psychotic disturbance, mood disturbance, and anxiety Status: Acute Plan The patient presented to the emergency department for evaluation of intermittenthematuria over the last 1 week as detailed HPI. Labs, imaging, EKG, and all reports were personally reviewed. Etiology of the hematuria is not entirely clear but may very well be related to BPH. CT scan showed no etiology for the hematuria and his hemoglobin has been stable. ED physician offered referral to Urology as an outpatient but since he is going to be admitted overnight I will go ahead and consult them. He seems to be declining physically and may need assisted living. Consult PT/OT as well as care coordination to discuss with the patient and his family. Blood pressures were high on arrival but are improving after he received his daily dose of losartan. Atrial fibrillation is rate controlled; he is not on anticoagulation, presumably due to fall risk. His home medications will be reviewed and resumed as appropriate. Findings and treatment plan were discussed with the patient and his family. Questions were solicited and answered to satisfaction. The patient's medical management will be taken over by the hospitalist team in a.m. Quality VTE Prophylaxis VTE prophylaxis: mechanical ordered If No VTE Prophylaxis Answer both mechanical and pharmacologic: Reason no pharmacologic proph: medical contraindication (hematuria) The patient has been admitted under observation status. Hospitalist [facility] Advance Care Plan I have confirmed that the patient's Advanced Care Plan is present, code status is documented, or surrogate decision maker is listed in patient medical record.:Yes Medication Reconciliation I have utilized all available resources to obtain, update and review the patients current medications (includes all prescriptions, OTC, herbals, cannabis, andnutritional supplements).: Yes This report may have been done utilizing a voice recognition system. Attempts have been made to correct errors. However, there may be uncorrected grammatical,spelling, and recognition errors present. Report Initialized date/time: Ree Brizuela PA-C 04/22/24 / 1532 Electronically signed by: Ree Brizuela PA-C 04/22/242222 Progress Note Author Lala Estrada [facility] April 22, 2024 2:36pm Note Date/Time April 22, 2024 8 :35am [facility] [address] [place] [address] Emergency Room Visit Note Signed Patient: Noé Davila MR#: [id number] : 1935 Acct:[id number] Age: 88 ADM Date: 04/22/24 Loc: ANHED Attending Dr: cc: Lala Estrada MD; Mely Gupta APN~ HPI - Male Genitourinary General Chief complaint: Urogenital-Male Stated complaint: blood in urine Time Seen by Provider: 04/22/24 08:22 History of Present Illness HPI Narrative: Patient presents with 1 week of blood in urine, over last 2 days has been havingmore generalized weakness and per family, has seemed slightly more confused. Iscurrently going through physical therapy for leg weakness. Denies any pain anywhere. Related Data Home Medications Medication Instructions Recorded Confirmed aspirin 81 mg tablet,delayed 81 mg PO DAILY 12/12/21 04/01/24 release Allergies Allergy/AdvReac Type Severity Reaction Status Date / Time No Known Allergies Allergy Verified 04/22/24 08:10 Review of Systems Review of Systems: All systems reviewed & are unremarkable except as noted in HPI and below PMFSH Past Medical History Medical History Anemia Anxiety Atrial fibrillation BPH (benign prostatic hyperplasia) Cellulitis of left hand Cognitive impairment Constipation COPD (chronic obstructive pulmonary disease) Dementia Depression Dizziness Elevated fasting glucose Encounter to establish care Fatigue Generalized weakness Hyperlipidemia Hypertension Impacted cerumen of right ear Insomnia Lesion of both ears Nocturia Osteoarthritis of right hand Pressure sore on buttocks Seasonal allergies Seasonal allergies Sepsis Shortness of breath Urine abnormality Weakness Surgical History Surgical History Hx of cholecystectomy Family History Family History Other Unknown family medical history Social History Social History Smoking packs per day: 1 Smoking cigarettes per day: 20.0 Smoking status: Former smoker Tobacco type: cigarettes Smoking end date: 07/02/08 Alcohol intake: former Drinks per week: 2 Substance use: never Substance use type: does not use Do You Feel Safe in your Home?: Yes Lack of Transportation: No Lack of Food: Never True Current Housing: I Have Housing Concerned About Future Housing: No Difficulty Paying Gas/Electric Bills: No Difficulty Paying for Meds: No Currently Unemployed: No Education: Grade School Difficulty w/ Childcare or Family Care: No Spiritual care concerns: No Exam Narrative: EXAMINATION OF ORGAN SYSTEMS/BODY AREAS: Constitutional: Vital signs per nursing GENERAL:[No acute distress, non-toxic appearing.] HEAD: Normal with no signs of head trauma. EYES: EOMI, conjunctiva normal ENT: Hearing grossly intact LUNGS: Nonlabored breathing. HEART: [Regular rate and rhythm] ABD: [Soft], [nontender to palpation] EXT: Normal range of motion SKIN: [No rashes or lesions.] NEURO: [Alert and oriented x 3. No gross focal sensory or strength deficits.] PSYCH: Normal affect Course Vital Signs Vital signs: Vital Signs Temperature 97.5 F L 04/22/24 08:05 Pulse Rate 66 04/22/24 08:05 Respiratory Rate 15 04/22/24 08:05 Blood Pressure 198/89 H 04/22/24 08:05 Pulse Oximetry 97 04/22/24 08:05 Oxygen Delivery Room Air 04/22/24 08:05 Temperature 97.5 F L 04/22/24 08:05 Pulse Rate 75 04/22/24 14:06 Respiratory Rate 15 04/22/24 11:15 Blood Pressure 171/67 H 04/22/24 14:06 Pulse Oximetry 100 04/22/24 14:06 Oxygen Delivery Room Air 04/22/24 08:05 MDM - Male Genitourinary MDM Narrative Medical decision making narrative: Patient presents with painless hematuria. He is otherwise quite well appearing,does not appear to be in any distress. No obvious focal neurologic deficits. Labs within acceptable limits, CT obtained to rule out all malignancy or any other obvious cause of hematuria, does not show any obvious etiology of hematuria or any acute abnormalities. Discussion with family and patient at bedside, they would like him to be admitted at this time since he lives alone by himself and they were concerned about his weakness. Discussed with hospitalist for admission. Lab Data 04/22/24 08:37 04/22/24 08:37 Labs: Lab Results 04/22/24 04/22/24 Range/Units 08:37 10:36 WBC 5.0 (4.5-10.0) K/mm3 RBC 4.57 L (4.6-6.20) M/mm3 Hgb 14.5 (14.0-18.0) g/dL Hct 43.6 (42.0-52.0) % MCV 95.4 (80-100) fl MCH 31.7 (26-34) pg MCHC 33.3 (32-36) g/dl RDW 13.4 (11.5-14.5) % Plt Count 164 (150-375) k/mm3 MPV 9.8 (7.4-10.4) fl Immature Gran % (Auto) 0.4 (0-0.5) % Neut % (Auto) 69.1 (45.5-73.1) % Lymph % (Auto) 16.1 L (18.3-44.2) % [place] % (Auto) 6.8 (2.6-8.5) % Eos % (Auto) 6.6 H (0-4.4) % Baso % (Auto) 1.0 (0.2-1.2) % Lymph # (Auto) 0.80 L (0.9-3.2) K/mm3 [place] # (Auto) 0.3 (0.1-0.6) K/mm3 Eos # (Auto) 0.3 (0-0.3) K/mm3 Baso # (Auto) 0.1 (0.0-0.1) K/mm3 Abs Immat Gran (auto) 0.02 (0.00-0.031) K/mm3 Absolute Neuts (auto) 3.4 (1.3-6.7) K/mm3 Absolute Nucleated RBC 0.000 (0.0-0.012) K/mm3 Nucleated RBC % 0.0 (0.0-0.2) % PT 13.5 (11.1-14.7) Seconds INR 1.0 APTT 26.4 (22.3-36.8) Seconds Sodium 138 (137-145) mmol/L Potassium 4.5 (3.4-5.0) mmol/L Chloride 104 (98-107) mmol/L Carbon Dioxide 26 (22-30) mmol/L Anion Gap 8 (4-12) mmol/L BUN 19 (9-20) mg/dL Creatinine 1.00 (0.7-1.3) mg/dL Estim Creat Clear Calc 43 ml/min Estimated GFR > 60 (59 - ) Glucose 104 (65-110) mg/dL Calcium 9.4 (8.4-10.2) mg/dL Total Bilirubin 1.1 (0.2-1.3) mg/dL AST 19 (17-59) U/L ALT 13 (6-50) U/L Alkaline Phosphatase 104 (38-126) U/L Total Protein 7.0 (6.3-8.2) g/dL Albumin 4.1 (3.5-5.1) g/dL Urine Color Yellow (Yellow) Urine Appearance Clear (Clear) Urine pH 7.0 (5.0-9.0) Ur Specific [place] 1.016 (1.001-1.035) Urine Protein Negative (Negative) mg/dL Urine Glucose (UA) Negative (Negative) mg/dL Urine Ketones Negative (Negative) mg/dL Ur Blood (Man) 3+ H (Negative) Urine Nitrate Negative (Negative) Urine Bilirubin Negative (Negative) Urine Urobilinogen 1.0 (<2.0) mg/dL Leukocyte Esterase Rfl Negative (Negative) ABRIL/UL Urine RBC >100 H (0-2) /hpf Urine WBC 0-5 (0-3) /hpf Ur Squamous Epith Cells None seen (Few) /hpf Urine Bacteria None seen /hpf Urine Casts 0-2 Discharge Plan Discharge Clinical Impression: Hematuria, Generalized weakness, Adult failure to thrive syndrome Patient Disposition: Still a Patient Condition: Stable Prescriptions: No Action ipratropium bromide 21 mcg (0.03 %) spray,non-aerosol 2 spray intranasal .qd-tid Qty: 30 1RF Rx Instructions: administer into each nostril. Aim back/up/out aspirin 81 mg tablet,delayed release (DR/EC) 81 mg PO DAILY doxazosin 1 mg tablet 1 mg PO QHS Qty: 30 11RF (DME) spirometers and accessories Device See Rx Instructions .Route Qty: 1 0RF Rx Instructions: use as directed 4 times daily acetaminophen 325 mg Tablet 650 mg PO Q4H PRN (Reason: Mild Pain (1-3) Or Fever) Qty: 14 0RF polyethylene glycol 3350 [Miralax] 17 gram Powder In Packet 17 g PO QAM Qty: 7 0RF losartan 50 mg tablet 50 mg PO DAILY Qty: 30 11RF Hold Instructions: .Provider Order albuterol sulfate 90 mcg/actuation HFA aerosol inhaler 1 - 2 inh inhalation Q4-6H PRN (Reason: shortness of breath or wheezing) Qty: 8.5 2RF atorvastatin 20 mg tablet 20 mg PO DAILY Qty: 30 11RF Follow-up/Referrals: Mely Gupta NP [Primary Care Provider] - This report may have been done utilizing a voice recognition system. Attempts have been made to correct errors. However, there may be uncorrected grammatical,spelling, and recognition errors present. Report Initialized date/time: Lala Estrada MD 04/22/24834 Electronically signed by: Lala Estraad MD 04/22/24 1436 Progress Note Author Ronit Milligan [facility] April 23, 2024 4:44pm Note Date/Time April 23, 2024 1 1:05[facility] [address] [place] [id number] Hospitalist Progress Note Signed Patient: Noé Davila MR#: [id number] : 1935 Acct:[id number] Age: 88 ADM Date: 04/22/24 Loc: [id number] 255-[address]: Ronit Milligan MUSICAL STRING MAKER cc: ~ Progress Note: A&P Assessment and Plan (1) Intermittent gross hematuria: Code(s): R31.0 - Gross hematuria Status: Acute Assessment and Plan: * Likely secondary to BPH according to Urology * Urology recommending outpatient cystoscopy at some point however they will follow him on an outpatient basis in 2 weeks to reassess his hematuria * Post void residual only showed 29 mL of urine in his bladder (2) Benign prostatic hyperplasia: Code(s): N40.0 - Benign prostatic hyperplasia without lower urinary tract symptoms Status: Acute Assessment and Plan: * Continue Cardura (3) Generalized weakness: Code(s): R53.1 - Weakness Status: Acute Assessment and Plan: * Continue PT and OT (4) Hypertension: Code(s): I10 - Essential (primary) hypertension Status: Acute Assessment and Plan: * Blood pressures ranging 174/76 to 218/87 * Currently takes losartan 50 mg daily * Will increase to losartan 50 mg b.i.d. and start hydralazine 12.5 mg q.i.d. (5) Dementia: Code(s): F03.90 - Unspecified dementia, unspecified severity, without behavioral disturbance, psychotic disturbance, mood disturbance, and anxiety Status: Acute Assessment and Plan: * Not on any home medications currently * He is alert oriented x1-2 * Power of senior attorney is his daughter Roseanne (6) Paresthesia of both lower extremities: Code(s): R20.2 - Paresthesia of skin Status: Acute Assessment and Plan: * Daughter reporting the patient sustained a fall about 1 month ago and was diagnosed with a sacral fracture in which he has been seeking physical therapy and occupational therapy for on an outpatient basis. Daughter states that he has had paresthesia down both legs as well as pain. * On assessment with the patient he denied any pain as I moved down his spine, he denied any pain over his hip joints. He denied any numbness or tingling at that time. However he does have underlying dementia. * Abdomen pelvis CT this admission showed a healing subacute transverse fracture of S4 the sacrum * We went ahead and got an MRI of the sacrum coccyx which showed a nondisplaced transverse fracture extending across S4 with additional nondisplaced oblique fracture extending across the posterior inferior aspect of the S3 segment, prostatomegaly. * Lumbar spine MRI was negative for any compression fracture however had multilevel degenerative disc disease/spinal canal stenosis with intravertebral foraminal narrowing and nerve root compression at multi levels. * Considering the paresthesia we went ahead and consulted Neurosurgery * Continue PT and OT (7) Closed sacral fracture: Code(s): S32.10XA - Unspecified fracture of sacrum, initial encounter for closed fracture Status: Acute Assessment and Plan: * See above * Continue PT and OT Plan I put patient as a full code as code status was not officially addressed and spoke with daughter Josiane. She is going to try to reach out to Roseanne LOWERY) as I was unable to get a hold of her specifically. Josiane agrees to keep him as a full code for now and will have Roseanne call with more information about patient wishes. Time Spent With Patient Time with patient: Greater than 35 minutes Subjective Date/time seen: 04/23/24 11:02 Interval history: Interval history: This is an 88-year-old male with BPH who presented to the hospital for evaluation of blood in the urine. Workup in the hospital included an abdomen and pelvic CT which was negative for any etiology for hematuria, showed healing subacute transverse fracture of S4 of the sacrum. Head CT showed stable moderate nonspecific cerebral white matter disease which likely represents chronic small vessel ischemic disease. Initial labs shown a normal white blood cell count of 5.0 otherwise unremarkable. A UA was obtained which showed 3+ urine blood, greater than 100 urine RBC, otherwise normal. Patient was given dose of hydralazine while in the ED. Urology was consulted and plans for outpatient cystoscopy at some point as this is likely due to his prostate. Subjective: Daughter at bedside with few concerns. She states that her father has been hypertensive on arrival and still remains hypertensive despite the losartan 50 mg tablet that he normally takes at home. She also had concerns that he has been in therapy for 3 weeks and still has numbness/tingling down his left leg that is unchanged from when he was here a month ago and diagnosed with the S4 fracture. Daughter states that he has not been hypertensive like this in the past and has not sought care elsewhere like his primary care physician for the hypertension. She was also requesting an MRI of his back. Labs and imaging reviewed as well as the EMR. Review of Systems Review of Systems: 12 systems were reviewed and are negativ e except for as per HPI. All systems reviewed & are unremarkable except as noted in HPI and below Constitutional: Constitutional: Reports as per HPI and Reports no additional constitutional complaints Eyes: Eyes: Reports as per HPI and Reports no additional eye complaints ENT: Reports system reviewed and no additional complaints, except as documented and Reports as per HPI Cardiovascular: Cardiovascular: Reports as per HPI and Reports no additional cardiovascular complaints Respiratory: Respiratory: Reports as per HPI and Reports no additional respiratory complaints Gastrointestinal: Gastrointestinal: Reports as per HPI and Reports no additional gastrointestinal complaints Genitourinary: Genitourinary: Reports no additional male genitourinary complaints and Reports as per HPI Musculoskeletal: Musculoskeletal: Reports no additional musculoskeletal complaints and Reports as per HPI Integumentary/Breasts: Skin/Breast: Reports system reviewed and no additional complaints, except as docu and Reports as per HPI Neurologic: Reports system reviewed and no additional complaints, except as documented and Reports as per HPI Psychiatric: Psychiatric: Reports no additional psychiatric complaints and Reports as per HPI Exam Narrative: General: In no acute distress, well nourished Head: atraumatic, no encephalopathy Eyes: EOMI, PERRLA, sclera clear ENT: moist mucous membranes, nasal passages clear Neck: supple, no JVD, no adenopathy, trachea midline Cardiac: Normal S1 and S2. Irregular rate, No murmur, gallops or friction rubs,peripheral pulses intact. Respiratory: Lungs clear to auscultation, no adventitious lung sounds, currentlyon room air Gastrointestinal: soft, non-distended, non-tender, normoactive bowel sounds. : voiding without difficulty. Extremities: moves all extremities well, no edema, good ROM, strength 5/5 Skin: clean, dry, intact. No wounds or lesions. Neuro: Alert and oriented x1, cranial nerves intact, no neuro deficits. Psych: normal mood, normal affect, interactive Objective Data Vital Signs Vital Signs: Vital Signs - 24 hr 04/22/24 11:15 04/22/24 12:15 04/22/24 14:06 Temperature Pulse Rate 68 68 75 Respiratory Rate 15 Blood Pressure 218/87 H 182/82 H 171/67 H Pulse Oximetry 97 96 100 Oxygen Delivery 04/22/24 15:17 04/22/24 15:04 04/22/24 18:05 Temperature 97.6 F 97.6 F Pulse Rate 69 83 Respiratory Rate 16 15 Blood Pressure 160/74 H 159/65 H 150/61 H Pulse Oximetry 96 96 Oxygen Delivery 04/22/24 18:28 04/22/24 19:41 04/23/24 04:29 Temperature 97.6 F 97.2 F L Pulse Rate 69 64 Respiratory Rate 20 20 Blood Pressure 170/88 H 174/76 H Pulse Oximetry 98 97 Oxygen Delivery Room Air 04/22/24 21:22 04/23/24 09:05 04/22/24 15:26 Temperature 97.6 F Pulse Rate 69 Respiratory Rate 16 Blood Pressure 160/74 H Pulse Oximetry 97 96 Oxygen Delivery Room Air Room Air Intake/Output Intake/Output: Intake & Output 04/20/24 04/21/24 04/22/24 04/23/24 23:59 23:59 23:59 23:59 Intake Total 0 780 Balance 0 780 Meds/Results Medications: Active Medications Generic Name Dose Route Start Last Admin Trade Name Freq PRN Reason Stop Dose Admin Acetaminophen 650 mg 04/22/24 16:07 Acetaminophen 325 Mg Tablet PO Q6H PRN Mild Pain (1-3) or Fever Albuterol 1 - 2 puff 04/22/24 22:22 Albuterol Sulfate (*Sp) Aerosol 1 Puff INHALATION Q4-6H PRN shortness of breath or wheezing Aspirin 81 mg 04/23/24 09:00 04/23/24 08:58 Aspirin 81 Mg Enteric Tablet PO 81 mg DAILY CONNIE Administration Atorvastatin Calcium 20 mg 04/23/24 09:00 04/23/24 08:58 Atorvastatin 20 Mg Tablet PO 20 mg DAILY CONNIE Administration Doxazosin Mesylate 1 mg 04/23/24 09:00 04/23/24 08:58 Doxazosin Mesylate 1 Mg Tablet PO 1 mg DAILY CONNIE Administration Ipratropium [place] 2 spray 04/22/24 22:25 Ipratropium Nasal [place] 0.03% 15 Ml Bottle NASAL TID PRN RHINITIS Losartan Potassium 50 mg 04/23/24 09:00 04/23/24 08:58 Losartan Potassium 50 Mg Tablet PO 50 mg DAILY CONNIE Administration Polyethylene Glycol 17 gm 04/23/24 09:00 04/23/24 08:58 Polyethylene Glycol 3350 17 Gm Powd.Pack PO 17 gm QAM CONNIE Administration Radiology Results: ITS Impressions Abdomen/Pelvis CT 04/22/24 12:11 IMPRESSION: 1. No specific etiology for hematuria. 2. Healing subacute transverse fracture of S4 of the sacrum. Head CT 04/22/24 13:29 IMPRESSION: 1. Stable moderate nonspecific cerebral white matter disease, which likely represents chronic small vessel ischemic disease. Labs Labs: Laboratory Results - last 24 hr 04/22/24 10:36 Urine Color Yellow Urine Appearance Clear Urine pH 7.0 Ur Specific [place] 1.016 Urine Protein Negative Urine Glucose (UA) Negative Urine Ketones Negative Ur Blood (Man) 3+ H Urine Nitrate Negative Urine Bilirubin Negative Urine Urobilinogen 1.0 Leukocyte Esterase Rfl Negative Urine RBC >100 H Urine WBC 0-5 Ur Squamous Epith Cells None seen Urine Bacteria None seen Urine Casts 0-2 Quality VTE Prophylaxis VTE prophylaxis: mechanical ordered This report may have been done utilizing a voice recognition system. Attempts have been made to correct errors. However, there may be uncorrected grammatical,spelling, and recognition errors present. Report Initialized date/time: Ronit Milligan APRN 04/23/24 / 1105 Electronically signed by: Ronit Milligan APRN 04/23/24 4729
--- OUTSIDE RECORDS SUMMARY | 2024-07-09 02:16 | XMS_ITS | Encounter Summary ---
Author Organization [facility] Address [address] [place] [address] Phone Care Team Providers Care Financial Reporting Advisor Name Role Phone Brandon Sandoval MD Primary Care Provider [phone] Encounter Details Date Type Department Care Team (Late st Contact Info) Description 05/05/2021 11:50 AM CDT Lab [facility] [address] [place] [address] Sabino Brownlee MD [address] [place] [address] Dementia without behavioral disturbance, unspecified dementia type (HCC) Discharge Disposition: Discharged to home or Selfcare Social History Tobacco Use Types Packs/Day Years Used Date Smoking Tobacco: Former Smokeless Tobacco: Never Alcohol Use Standard Drinks/Week Comments Yes 0 (1 standard drink = 0.6 oz pur e alcohol) occasionally Sex and Gender Information Value Date Recorded Sex Assigned at Not on file Legal Sex Male 1:10 PM CDT Gender Identity Not on file Sexual Orientation Not on file COVID-19 Exposure Response Date Recorded In the last month, have you been in contact with someone who was confirmed or suspected to have Coronavirus / COVID-19? No / Unsure 05/05/2021 11:30 AM CDT documented as of this encounter Progress Notes * Cherise Laughlin RN - 05/05/2021 11:50 AM CDT done documented in this encounter Plan of Treatment Not on file documented as of this encounter Procedures Procedure Name Priority Date/Time Associated Diagnosis Comments CBC WITH AUTO DIFFERENTIAL Routine 05/05/2021 11:42 AM CDT Dementia without behavioral disturbance, unspecified dementia type (HCC) METHYLMALONIC ACID, QN, MMAS Routine 05/05/2021 11:42 AM CDT Dementia without behavioral disturbance, unspecified dementia type (HCC) VITAMIN B12 Routine 05/05/2021 11:42 AM CDT Dementia without behavioral disturbance, unspecified dementia type (HCC) THYROID STIMULATING HORMONE (TSH) Routine 05/05/2021 11:42 AM CDT Dementia without behavioral disturbance, unspecified dementia type (HCC) CMP (COMPREHENSIVE METABOLIC PANEL) Routine 05/05/2021 11:42 AM CDT Dementia without behavioral disturbance, unspecified dementia type (HCC) COMPLETE BLOOD COUNT (CBC) WITH DIFF Routine 05/05/2021 11:42 AM CDT Dementia without behavioral disturbance, unspecified dementia type (HCC) documented in this encounter Results * (ABNORMAL) CBC WITH AUTO DIFFERENTIAL (05/05/2021 11:42 AM CDT) WBC 5.53 4.00 - 12.00 10(3)/mcL 05/05/2021 1:00 PM CDT [facility] RBC 4.99 4.40 - 5.80 10(6)/mcL 05/05/2021 1:00 PM CDT [facility] HEMOGLOBIN (HGB) 15.6 13.0 - 16.5 g/dL 05/05/2021 1:00 PM CDT [facility] HEMATOCRIT (HCT) 48.4 38.0 - 50.0 % 05/05/2021 1:00 PM CDT [facility] MCV 97.0(H) 82.0 - 96.0 fL 05/05/2021 1:00 PM CDT [facility] MCH 31.3 26.0 - 32.0 pg 05/05/2021 1:00 PM CDT [facility] MCHC 32.2 31.0 - 36.0 g/dL 05/05/2021 1:00 PM CDT [facility] PLATELET COUNT 165 140 - 440 10(3)/mcL 05/05/2021 1:00 PM CDT [facility] RDW 12.9 11.8 - 15.5 % 05/05/2021 1:00 PM CDT [facility] MPV 11.6 8.0 - 12.6 fL 05/05/2021 1:00 PM CDT [facility] NEUTROPHILS 77.5(H) 40.0 - 68.0 % 05/05/2021 1:00 PM CDT [facility] LYMPHOCYTES 13.0(L) 19.0 - 49.0 % 05/05/2021 1:00 PM CDT [facility] MONOCYTES 6.1 3.0 - 13.0 % 05/05/2021 1:00 PM CDT [facility] EOSINOPHILS 2.5 0.0 - 8.0 % 05/05/2021 1:00 PM CDT [facility] BASOPHILS 0.9 0.0 - 1.0 % 05/05/2021 1:00 PM CDT [facility] ABSOLUTE NEUTROPHILS 4.28 1.40 - 5.30 10(3)/mcL 05/05/2021 1:00 PM CDT [facility] ABSOLUTE LYMPHOCYTES 0.72(L) 0.90 - 3.30 10(3)/mcL 05/05/2021 1:00 PM CDT [facility] ABSOLUTE MONOCYTES 0.34 0.10 - 0.90 10(3)/mcL 05/05/2021 1:00 PM CDT [facility] ABSOLUTE EOSINOPHIL 0.14 0.00 - 0.50 10(3)/mcL 05/05/2021 1:00 PM CDT [facility] ABSOLUTE BASOPHILS 0.05 0.00 - 0.10 10(3)/mcL 05/05/2021 1:00 PM CDT [facility] NRBC PER 100 WBC 0 05/05/20 1:00 PM CDT [facility] Blood Venipuncture / Unknown 05/05/2021 11:42 AM CDT 05/05/2021 12:56 PM CDT Sabino Brownlee MD HEMATOLOGY ORDERABLES Final Result [facility] [address] [place] [address] * (ABNORMAL) METHYLMALONIC ACID, QN, MMAS (05/05/2021 11:42 AM CDT) METHYLMALONIC ACID, QN 0.50(H) <=0.40 nmol/mL 05/11/2021 11:55 AM [facility] [employer] Comment: In this sample, the concentration of methylmalonic acid (MMA) was minimally elevated. As the upper limit of the reference range varies in different laboratories from 0.4 to 0.6 nmol/mL. This finding could be considered normal, especially if the patient does not show other signs of vitamin B12 deficiency. ADDITIONAL INFORMATION This test was developed and its performance characteristics determined by [facility] in a manner consistent with CLIA requirements. This test has not been cleared or approved by the U.S. Food and Drug Administration. Test Performed by: [facility] - [address] [address] Environmental Web Crawler: Gomez Avila M.D. Ph.D.; CLIA# [id number] Blood Venipuncture / Unknown 05/05/2021 11:42 AM CDT 05/05/2021 12:56 PM CDT Sabino Brownlee MD LAB SEND OUTS Final Result [facility] [address] [place] [address], [place] * (ABNORMAL) CMP (COMPREHENSIVE METABOLIC PANEL) (05/05/2021 11:42 AM CDT) SODIUM 139 136 - 144 mmol/L 05/05/2021 1:[address] [facility] POTASSIUM 3.8 3.5 - 5.1 mmol/L 05/05/2021 1:[address] [facility] CHLORIDE 103 100 - 110 mmol/L 05/05/2021 1:[address] [facility] CO2, VENOUS 25 22 - 32 mmol/L 05/05/2021 1:[address] [facility] ANION GAP 14.8 8.0 - 20.0 mmol/L 05/05/2021 1:[address] [facility] GLUCOSE 111(H) 70 - 99 mg/dL 05/05/2021 1:[address] [facility] BUN 19 8 - 23 mg/dL 05/05/2021 1:[address] [facility] CREATININE, BLOOD 0.79(L) 0.80 - 1.30 mg/dL 05/05/2021 1:[address] [facility] BUN/CREATININE RATIO 24(H) 12 - 20 ratio 05/05/2021 1:[address] [facility] TOTAL PROTEIN 7.2 6.0 - 8.3 g/dL 05/05/2021 1:[address] [facility] ALBUMIN 4.4 3.5 - 5.2 g/dL 05/05/2021 1:[address] [facility] Comment: The colormetric methods used for the determination of Albumin may lead to falsely elevated test results in patients suffering from renal failure or insufficiency due to interference with other proteins. A/G RATIO 1.6 1.0 - 2.0 05/05/2021 1:[address] [facility] CALCIUM 9.5 8.9 - 10.3 mg/dL 05/05/2021 1:41 PM CDT [facility] T BILI 0.9 <=1.2 mg/dL 05/05/2021 1:41 PM CDT [facility] SGOT (AST) 17 <=40 U/L 05/05/2021 1:41 PM CDT [facility] SGPT (ALT) 13 <=41 U/L 05/05/2021 1:41 PM CDT [facility] ALKALINE PHOSPHATASE 115 40 - 130 U/L 05/05/2021 1:41 PM CDT [facility] GFR, EST. NONAFRICAN >60 >=60 05/05/2021 1:41 PM CDT [facility] GFR, EST. >60 >=60 021 1:41 PM CDT [facility] Comment: Creatinine Clearance is the preferred criteria for selecting drug dose adjustments in renally impaired patients. ??The GFR is provided as additional pertinent clinical information. GFR is reported in mL/min/1.73 sq m. IS THE PATIENT REQUIRED TO BE FASTING? No 05/05/2021 1:[address] [facility] Blood Venipuncture / Unknown 05/05/2021 11:42 AM CDT 05/05/2021 12:55 PM CDT us Sabino Brownlee MD CHEMISTRY ORDERABLES Final R esult [facility] [address] [place] [address] * (ABNORMAL) THYROID STIMULATING HORMONE (TSH) (05/05/2021 11:42 AM CDT) TSH 0.224(L) 0.270 - 4.200 mIU/L 05/05/2021 1:41 PM CDT [facility] Blood Venipuncture / Unknown 05/05/2021 11:42 AM CDT 05/05/2021 12:55 PM CDT us Sabino Brownlee MD CHEMISTRY ORDERABLES Final R esult Performing Organization Address City/[facility] Co de Phone Number [facility] [address] [place] [address] * VITAMIN B12 (05/05/2021 11:42 AM CDT) VITAMIN B12 422 243 - 894 pg/mL 05/05/2021 1:[address] [facility] Blood Venipuncture / Unknown 05/05/2021 11:42 AM CDT 05/05/2021 12:56 PM CDT us Sabino Brownlee MD CHEMISTRY ORDERABLES Final R esult Performing Organization Address [facility] Co de Phone Number [facility] [address] [place] [address] documented in this encounter Visit Diagnoses Diagnosis Dementia without behavioral disturbance, unspecified dementia type documented in this encounter Care Teams Financial Reporting Advisor Relationship Specialty Start Date End Date Brandon Sandoval MD PCP - General Internal Medicine 03/23/21 documented as of this encounter
--- OUTSIDE RECORDS SUMMARY | 2024-07-09 02:16 | XMS_ITS | Encounter Summary ---
Author Organization [facility] Address [address] [place] [address] Phone Care Team Providers Care School Photograph Editor Name Role Phone Brandon Sandoval MD Primary Care Provider [phone] Encounter Details Date Type Department Care Team (Late st Contact Info) Description 08/22/2021 Telephone [facility] [address] [place] [address] Sabino Brownlee MD [address] [place] [address] Social History Tobacco Use Types Packs/Day Years [...] have Coronavirus / COVID-19? No / Unsure 08/08/2021 10:34 AM FLOOR LAYER HELPER documented as of this encounter Miscellaneous Notes * Telephone Encounter - Cherise Laughlin RN - 08/22/2021 3:58 PM CST pts daughter called stating her dad took the first increased dose of aricept 10 mg last night and has been dizzy all day. Per Dr Brownlee, go back to original dose of 5 mg. pts daughter states understanding. R LAYER HELPER documented in this encounter Plan of Treatment Not on file documented as of this encounter Visit Diagnoses Not on filedocumented in this encounter Care Teams School Photograph Editor Relationship Specialty Start Date End Date Brandon Sandoval MD PCP - General Internal Medicine 03/23/21 documented as of this encounter
--- OUTSIDE RECORDS SUMMARY | 2024-07-09 02:16 | XMS_ITS | CONTINUITY OF CARE DOCUMENT ---
Author Name lenka og Address Unknown Organization [facility] Address [address] [place] [address] Phone [phone] Care Team Providers Care Flower Picker Name Role Phone Gianna Mathews MD Unavailable MARY HURTADO MD Unavailable MARY HURTADO MD Unavailable PROBLEMS Condition Status Date Provider Notes Shortness of breath (SOB) active Jose M purdy INSURANCE PROVIDERS Payer name Policy type / Coverage type [place] [employer] green party ID [place] [employer] Medicare [id number] HISTORY OF PROCEDURES Procedure Date Procedure Name Provider Procedure Notes S tatus Mobile Cardiac Telem etry - Tech Gianna Mathews MD completed Mobile Cardiac Telem etry - Prof Gianna Mathews MD completed
--- OUTSIDE RECORDS SUMMARY | 2024-07-09 02:16 | XMS_ITS | Encounter Summary ---
Author Organization [facility] Address [address] [place] [address] Phone Care Team Providers Care Site Lead Name Role Phone Brandon Sandoval MD Primary Care Provider [phone] Encounter Details Date Type Department Care Team (Late st Contact Info) Description 05/06/2021 Telephone [facility] - Neurology [facility] [address] [place] [address] Sabino Brownlee MD [address] [place] [address] Social History Tobacco Use Types [...] AM CDT documented as of this encounter Miscellaneous Notes * Telephone Encounter - Cherise Laughlin RN - 05/06/2021 8:15 AM CDT ----- Message from Sabino Brownlee MD sent at 05/05/2021 7:10 PM CDT ----- Regarding: FW: Tsh is low can u check if the lab can add on a Free T4 ----- Message ----- From: Claudia Smith Background User Sent: 05/05/2021 1:00 PM CDT To: Sabino Brownlee MD documented in this encounter Plan of Treatment Scheduled Orders Name Type Priority Associated Diagnoses Orde r Schedule THYROXINE (T4) FREE Lab Routine Abnormal TSH Expected: 05/06/2021, Expires: 06/05/2021 documented as of this encounter Visit Diagnoses Diagnosis Abnormal TSH- Primary Other abnormal clinical finding documented in this encounter Care Teams Site Lead Relationship Specialty Start Date End Date Brandon Sandoval MD PCP - General Internal Medicine 03/23/21 documented as of this encounter
--- OUTSIDE RECORDS SUMMARY | 2024-07-09 02:16 | XMS_ITS | Encounter Summary ---
Author Organization [facility] Address [address] [place] [address] Phone Care Team Providers Care Supervisor Continuous [employer]ipe [employer] Name Role Phone Brandon Sandoval MD Primary Care Provider [phone] Encounter Details Date Type Department Care Team (Late st Contact Info) Description 08/08/2021 Telephone [facility] - Neurology [facility] [address] [place] [address] Sabino Brownlee MD [address] [place] [address] Social History Tobacco Use Types [...] COVID-19? No / Unsure 08/08/2021 10:34 AM COLLEGE PHYSICS INSTRUCTOR documented as of this encounter Miscellaneous Notes * Telephone Encounter - Kim Perez - 08/08/2021 10:58 AM CST Patient came in for his appointment today with Dr. Brownlee. Called the son (Cricket) which is the POAto see if his sister (Naye) would be able to receive information about their father. Son states that he does not want anything to do with it anymore & they can do what they want. EGE PHYSICS INSTRUCTOR documented in this encounter Plan of Treatment Not on file documented as of this encounter Visit Diagnoses Not on filedocumented in this encounter Care Teams Supervisor Continuous [employer] Relationship Specialty Start Date End Date Brandon Sandoval MD PCP - General Internal Medicine 03/23/21 documented as of this encounter
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
--- OUTSIDE RECORDS SUMMARY | 2024-07-09 02:16 | XMS_ITS | Encounter Summary ---
Author Organization [facility] Care Team Providers Care Industrial Design Intern Name Role Phone Brandon Sandoval MD Primary Care Provider [phone] Encounter Details Date Type Department Care Team (Latest Contact Info) Description 08/08/2021 Travel Social History Tobacco Use Types Packs/Day Years [...] COVID-19? No / Unsure 08/08/2021 10:34 AM LIME SLUDGE KILN OPERATOR documented as of this encounter Plan of Treatment Not on file documented as of this encounter Visit Diagnoses Not on filedocumented in this encounter Care Teams Industrial Design Intern Relationship Specialty Start Date End Date Brandon Sandoval MD PCP - General Internal Medicine 03/23/21 documented as of this encounter
--- OUTSIDE RECORDS SUMMARY | 2024-07-09 02:16 | XMS_ITS | Encounter Summary ---
Author Organization [facility] Care Team Providers Care Final Finisher Name Role Phone Brandon Sandoval MD Primary Care Provider [phone] Encounter Details Date Type Department Care Team (Latest Contact Info) Description 05/05/2021 Travel Social History Tobacco Use Types Packs/Day [...] AM CDT documented as of this encounter Plan of Treatment Not on file documented as of this encounter Visit Diagnoses Not on filedocumented in this encounter Care Teams Final Finisher Relationship Specialty Start Date End Date Brandon Sandoval MD PCP - General Internal Medicine 03/23/21 documented as of this encounter
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
--- OUTSIDE RECORDS SUMMARY | 2024-07-09 02:16 | XMS_ITS | Clinical Summary ---
Author Organization [facility] Address [address] [place] [address] Phone Care Team Providers Care Hand Ornament Maker Name Role Phone Brandon Sandoval MD Primary Care Provider [phone] Allergies No known active allergies Medications aspirin EC 81 MG Tablet Delayed Response Take 81 mg by mouth daily. Active atorvastatin (LIPITOR) 20 MG Tablet Take 20 mg by mouth daily. Active doxazosin (CARDURA) 2 MG Tablet Take 2 mg by mouth daily. Active QUEtiapine (SEROquel) 25 MG Tablet Take 25 mg by mouth 2 times daily. Active donepezil (ARICEPT) 5 MG Tablet Take 1 Tablet by mouth nightly. 90 Tablet 3 08/22/2021 Active Immunizations Immunization Administration Dates Next Due Influenza, High-dose, Quadrivalent 04/29/2022, Family History Medical History Relation Name Comments Heart Attack Father Relation Name Status Comments Father Social History Tobacco Use Types Packs/Day Years Used Date Smoking Tobacco: Former Smokeless Tobacco: Never Alcohol Use Standard Drinks/Week Comments Yes 0 (1 standard drink = 0.6 oz pur e alcohol) occasionally Sex and Gender Information Value Date Recorded Sex Assigned at Not on file Legal Sex Male 1:10 PM CDT Gender Identity Not on file Sexual Orientation Not on file Last Filed Vital Signs Vital Sign Reading Time Taken Comments Blood Pressure 166/90 08/08/2021 10:50 AM EARTHMOVING PLANT OPERATOR Pulse 86 08/08/2021 10:50 AM EARTHMOVING PLANT OPERATOR Temperature 37.1 ??C (98.8 ??F) 08/08/2021 10:[address] Respiratory Rate 16 08/08/2021 10:50 AM EARTHMOVING PLANT OPERATOR Oxygen Saturation 95% 08/08/2021 10:50 AM EARTHMOVING PLANT OPERATOR Inhaled Oxygen Concentration - - Weight 69.4 kg (153 lb 1.6 oz) 08/08/2021 10:50 AM EARTHMOVING PLANT OPERATOR Height 181.9 cm (5' 11.6 ) 08/08/2021 10:[address] Body Mass Index 21 08/08/2021 10:50 AM EARTHMOVING PLANT OPERATOR Plan of Treatment Health Maintenance Due Date Last Done Comments Hepatitis C Virus (HCV) Screening 1935 TdaP Immunization 1935 Pneumococcal Immunization (5 0+ years) (1 of 1 - PCV) 11/22/1985 Zoster Immunization (1 of 2) 11/22/1985 Respiratory Syncytial Virus (RSV) Immunization (Adult) (1 - 1-dose 75+ series) 11/22/2010 Influenza Immunization (#1) 03/02/202404/02, 06/29/2021 SARS-COV-2 Immunization ( - season) 2024 Hepatitis B Immunization Aged Out No longer eligible based on patient's age to complete this topic Meningococcal Immunization (ACWY) Aged Out No longer eligible b ased on patient's age to complete this topic Rotavirus Immunization Aged Out No lo nger eligible based on patient's age to complete this topic Insurance MEDICARE Advance Directives Documents on File Type Date Recorded Patient Fire Management Officer Expl anation Power of Supervisor Telephone [employer] 06/29/2021 10:02 AM Care Teams Hand Ornament Maker Relationship Specialty Start Date End Date Brandon Sandoval MD PCP - General Internal Medicine 03/23/21
--- OUTSIDE RECORDS SUMMARY | 2024-07-09 02:16 | XMS_ITS | Encounter Summary ---
Author Organization [facility] Address [address] [place] [address] Phone Care Team Providers Care Strategy Intern Name Role Phone Brandon Sandoval MD Primary Care Provider [phone] Encounter Details Date Type Department Care Team (Late st Contact Info) Description 08/22/2021 Telephone [facility] [address] [place] [address] Sabino Brownlee MD [address] [place] [address] Social History Tobacco Use Types [...] COVID-19? No / Unsure 08/08/2021 10:34 AM DIGITAL MARKETING OFFICER documented as of this encounter Miscellaneous Notes * Telephone Encounter - Cherise Laughlin RN - 08/22/2021 4:00 PM CST Donepezil back to original dose due to pt dizziness with increased dose. TAL MARKETING OFFICER documented in this encounter Plan of Treatment Not on file documented as of this encounter Visit Diagnoses Not on filedocumented in this encounter Care Teams Strategy Intern Relationship Specialty Start Date End Date Brandon Sandoval MD PCP - General Internal Medicine 03/23/21 documented as of this encounter
--- OUTSIDE RECORDS SUMMARY | 2024-07-09 02:16 | XMS_ITS | Clinical Summary ---
Author Organization [facility] Address [address] [place] [address] Care Team Providers Care Senior Clinical Study Manager Name Role Phone Miller Mcmanus MD Primary Care Provider [phone] Allergies No known active allergies Medications aspirin 81 mg chewable tablet Take 1 tablet (81 mg total) by mouth nightly 90 tablet 3 021 Active atorvastatin (LIPITOR) 20 mg tabletIndications:Pure hypercholesterolemia Take 1 tablet (20 mg total) by mouth nightly 90 tablet 3 021 Active albuterol HFA (PROVENTIL HFA,VENTOLIN HFA,PROAIR HFA) 90 mcg/actuation inhaler Inhale 2 puffs every 6 (six) hours as needed Active docusate sodium (COLACE) 50 mg capsuleIndications:cons tipation Take by mouth 2 (two) times a day as needed for constipation Active doxazosin (CARDURA) 2 mg tabletIndications:hyper tension Take 1 tablet (2 mg total) by mouth nightly 30 tablet 022 Active warfarin (COUMADIN) 5 mg tabletIndications:atria l fibrillation Take 1 tablet (5 mg total) by mouth daily 30 tablet 3 024 Active losartan (COZAAR) 50 mg tablet 1.5 tablets daily 135 tablet 1 024 Active Active Problems Problem Noted Date Diagnosed Date 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 Continue aspirin and Lipitor. Assessment & Plan (10/20/2022 3:23 PM CDT): Doing reasonably well. Continue aspirin and statin. Assessment & Plan (09/16/2021 10:28 AM CDT): Details unknown. Continue secondary prevention with aspirin and statin. Shortness of breath 01/17/2021 10/20/2022 Dementia 09/21/2020 Overview (09/21/2020): SLUMS score 9 on 09/17/20 Assessment & Plan (10/12/2020 11:17 PM CDT): Drivers form filled out today and I recommended against him driving anymore. My total encounter time on 10/12/2020 was 25 minutes which was spent in the activities documented in the note. This includes time spent prior to the visit and after the visit in direct care of the patient. This time does not include time spent in any separately reportable services. Assessment & Plan (09/21/2020 11:17 AM CDT): Will fill out ems driver form as I don't feel patient is safe to drive anymore. AGATA (generalized anxiety disorder) 09/21/2020 Assessment & Plan (09/21/2020 10:23 PM CDT): He should be restarting nortriptyline today if possible with pill packs from the pharmacy. BMI 21.0-21.9, adult 09/20/2020 Assessment & Plan (09/20/2020 9:00 AM CDT): BMI Follow-up includes: education provided. Vertigo 07/28/2020 Assessment & Plan (11/03/2020 12:13 PM CDT): Ear canals clear. Minimal fluid in bilateral ears. Pt states he does not remember the last time he was dizzy. US carotids ordered Assessment & Plan (07/28/2020 9:42 AM COMMISSIONING SPECIALIST): Likely related to uncontrolled allergies, though not sure if cerumen impaction also playing a role. I recommend use of Flonase (fluticasone) though he has been mostly non-compliant with suggestions on this; could be memory/cognitive in nature. Cognitive impairment 05/06/2020 Overview (09/20/2020): SLUMS score 9 on 09/17/20 Assessment & Plan (09/20/2020 8:56 AM CDT): Will order social work with home health for assistive services. Patient is not cognitively aware enough to care for himself. Discussed assisted living with patient today however he declined. Department of revenue form filled out today for patient driving. Do not recommend patient drive with his recent syncopal episode controlled hypertension, advanced dementia. This patient is at risk for injuring himself and others. Assessment & Plan (05/06/2020 11:31 PM COMMISSIONING SPECIALIST): Unsure exact cause. Depression vs nutrition vs dehydration vs possible parkinsons?? Consult ACO He is recently less than 2 years ago. No family or friend support. Probable poor nutrition. Difficulty getting him to take meds as intended. Frequent falls 05/06/2020 Assessment & Plan (11/03/2020 12:12 PM CDT): Pt refuses cane or walker for ambulation. Assessment & Plan (05/06/2020 11:40 PM COMMISSIONING SPECIALIST): Refuses neuro or PT consult. I think he falls more from flexing his neck versus position changes, stumbling, or orthostasis. During the office visit that took at least 40 minutes, I spent over 50% of the time either counseling, educating, discussing plan of treatment, or answering questions today. Tremor, unspecified 05/06/2020 Assessment & Plan (05/06/2020 11:33 PM COMMISSIONING SPECIALIST): Refuses consult with neuro or anything that might cost him money. Trial Requip (ropinirole) 0.25mg tid. Consult ACO Illiteracy 05/06/2020 Weight loss 01/26/2020 Assessment & Plan (07/28/2020 7:23 PM COMMISSIONING SPECIALIST): Stable with Mirtazapine. Will increase the Mirtazapine to 30mg today. Assessment & Plan (05/06/2020 11:37 PM COMMISSIONING SPECIALIST): Possible improvement with Mirtazapine (if he is actually taking this med??) Consult ACO Assessment & Plan (01/26/2020 11:16 AM CDT): Start mirtazapine today. Protein shakes may be beneficial for him. We discussed getting enough fruits and vegetables in. Hypertension, essential 07/28/2019 Assessment & Plan (10/26/2023 10:28 AM CDT): Well controlled. Continue current dose of losartan. Assessment & Plan (09/16/2021 10:27 AM CDT): Blood pressure excessive. Will add a low-dose losartan and titrate as necessary. Assessment & Plan (10/12/2020 11:20 PM CDT): Chronic & stable on meds. Continue current treatment. Assessment & Plan (09/21/2020 10:24 PM CDT): Patient to restart doxazosin from pill packs to pharmacy. Assessment & Plan (09/20/2020 8:55 AM CDT): Will refill Cardura to [facility] program. Hopefully this will allow patient to easy to access his medications. Will also order home health for social work and nursing services. With his blood pressure a elevated he likely needs a nurse to check this and assist him with medications. He is not cognitively aware enough to do this himself. Assessment & Plan (07/28/2020 7:26 PM COMMISSIONING SPECIALIST): Will increase the doxazosin from 1 mg to 2 mg daily to help both BPH and HTN Assessment & Plan (01/26/2020 11:13 AM CDT): Stable without doxazosin. Does not measure BP at home. Will continue to monitor in the future. He is consuming easy meals with a lot of sodium, which may be contributing to his higher BP readings. Assessment & Plan (07/28/2019 11:16 PM COMMISSIONING SPECIALIST): New diagnosis. Start doxazosin (Cardura) for combined benefit of HTN and BPH. Call back with update in 2-3 weeks and blood pressure readings if possible. Chronic rhinitis 07/28/2019 Assessment & Plan (07/28/2019 11:20 PM COMMISSIONING SPECIALIST): Start Flonase (fluticasone). Demonstrated use. Hearing difficulty of both ears 12/18/2018 Assessment & Plan (07/28/2020 7:45 PM COMMISSIONING SPECIALIST): Tried to clean out ears today. Assessment & Plan (01/26/2020 11:12 AM CDT): Did not go to audiology due to cost. Assessment & Plan (12/18/2018 9:24 PM CDT): Audiology consult. 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 LDL is controlled well. Prediabetes 06/18/2017 Assessment & Plan (07/28/2020 7:21 PM COMMISSIONING SPECIALIST): Will check new labs and make adjustments if needed. Assessment & Plan (01/26/2020 11:07 AM CDT): Will recheck fasting glucose today. Assessment & Plan (07/28/2019 11:16 PM COMMISSIONING SPECIALIST): Get new labs Assessment & Plan (12/18/2018 9:23 PM CDT): Lower carb diet recommended. Assessment & Plan (06/18/2017 1:26 PM COMMISSIONING SPECIALIST): Please cut down on sweets. Chronic idiopathic constipation 12/13/2016 Assessment & Plan (07/28/2020 7:21 PM COMMISSIONING SPECIALIST): Chronic & stable on meds. Continue current treatment. Assessment & Plan (12/17/2017 9:42 PM CDT): Chronic & stable on meds. Continue current treatment. Assessment & Plan (12/13/2016 3:07 PM CDT): Eat more vegetables and fruits. Pure hypercholesterolemia 2015 Assessment & Plan (10/26/2023 10:29 AM CDT): Well controlled with LDL of 81 mg/dL. Continue Lipitor. Assessment & Plan (10/20/2022 3:24 PM CDT): Well controlled. LDL today is 66 mg/dL. Continue Lipitor. Assessment & Plan (07/28/2020 7:43 PM COMMISSIONING SPECIALIST): Chronic & stable on meds. Continue current treatment. Assessment & Plan (01/26/2020 11:06 AM CDT): Stop rosuvastatin and start atorvastatin 20mg due to cost. Check labs today. Assessment & Plan (07/28/2019 11:20 PM COMMISSIONING SPECIALIST): Get updated labs soon. Assessment & Plan (12/18/2018 9:23 PM CDT): Chronic & stable on meds. Continue current treatment. Assessment & Plan (06/18/2018 2:20 PM COMMISSIONING SPECIALIST): Chronic & stable on meds. Continue current treatment. Assessment & Plan (03/29/2018 1:48 PM CDT): LDL was 69 on 12/10/2017. Continue Mevacor treatment Assessment & Plan (12/17/2017 9:41 PM CDT): Chronic & stable on meds. Continue current treatment. Assessment & Plan (06/18/2017 1:26 PM COMMISSIONING SPECIALIST): Chronic & stable on meds. Continue current treatment. Assessment & Plan (12/13/2016 3:05 PM CDT): Doing well with current treatment program and medications. No changes today Chronic atrial fibrillation 2015 Assessment & Plan (10/26/2023 10:28 AM CDT): Remains without oral anticoagulant therapy. Again discussed options with the patient and family. The daughter reports that they are pursuing patient assistance programs for Xarelto or Eliquis would prefer those options over warfarin. She is indicated that she will get back to us with the outcome of that investigation. Assessment & Plan (10/20/2022 3:23 PM CDT): Rate controlled. He stopped oral anticoagulant therapy due to cost. I have provided his daughter with a list of alternatives to Xarelto and she will review this with his pharmacist and get back to us with a cost appropriate alternative. Assessment & Plan (09/16/2021 10:26 AM CDT): Discussed his annual eyes risk for stroke. Discussed the Watchman procedure but he does not wish to pursue that option. He and his daughter also uncomfortable with his stroke risk. We have agreed to resume oral anticoagulant therapy with the understanding that he regularly uses walker and the report any further falls. Plan: Xarelto 20 mg daily. His last BMP was reviewed. Assessment & Plan (11/03/2020 12:09 PM CDT): Warfarin discontinued due to frequent falls, worsening dementia. Patient is not reliable and states that he often forgets to take his medication or sometimes not remember if he took it. Pt to continue ASA 81MG. Assessment & Plan (01/26/2020 11:06 AM CDT): Chronic & stable on warfarin. Continue current treatment. Assessment & Plan (04/21/2019 11:32 PM CDT): Try taking 5mg of warfarin until the antibiotic is complete or I tell you differently. Recheck the INR early Sunday morning and call back if we haven't called you by 1pm. Get some robitussin dm syrup to help cough and congestion. Assessment & Plan (12/18/2018 9:24 PM CDT): Chronic & stable on meds. Continue current treatment. Will convert from home INR meter to monthly lab draws. Assessment & Plan (06/18/2018 2:20 PM COMMISSIONING SPECIALIST): Chronic & stable on meds. Continue current treatment. Assessment & Plan (03/29/2018 1:48 PM CDT): Probably paroxysmal atrial fibrillation. EKG on 03/12/2018 was reviewed and showed sinus rhythm, right bundle branch block and nonspecific ST-T abnormality. ECG today reveals sinus rhythm, right bundle branch block and minor ST-T abnormality. After discussion, echocardiogram will be obtained for further cardiac evaluation. Assessment & Plan (03/12/2018 7:02 PM CDT): Consult cardiology. Assessment & Plan (12/17/2017 9:42 PM CDT): Chronic & stable on meds. Continue current treatment. Will continue to monitor weekly INR Assessment & Plan (06/18/2017 1:27 PM COMMISSIONING SPECIALIST): Chronic & stable on meds. Continue current treatment. INRs are stable. Assessment & Plan (12/13/2016 3:06 PM CDT): INR waxes and wanes a lot so had discussion about eating a consistent diet. Continue warfarin and weekly INR checks. Recurrent major depressive disorder 2015 Assessment & Plan (09/21/2020 10:24 PM CDT): Pay sent switching back from mirtazapine back to nortriptyline. Assessment & Plan (09/20/2020 8:57 AM CDT): Will switch the mirtazapine back to amitriptyline as patient seemed to do better on this. Will also order this to the med program at the pharmacy Assessment & Plan (07/28/2020 7:38 PM COMMISSIONING SPECIALIST): Increase the Mirtazapine to 30mg daily and stop the Amitriptyline 10 mg daily, especially since he has constipation. Assessment & Plan (05/06/2020 11:37 PM COMMISSIONING SPECIALIST): Patient symptomatic and not sure if he actually takes prescribed meds or not. Consult ACO Assessment & Plan (01/26/2020 11:11 AM CDT): Stop amitriptyline and start mirtazepine. Mood seems a little down, as well as appetite. Discussed proper safety measures when going outside and fishing with his angelia. Encouraged him to get out and socialize with precautions. Assessment & Plan (12/18/2018 9:24 PM CDT): Chronic & stable on meds. Continue current treatment. Assessment & Plan (06/18/2018 2:20 PM COMMISSIONING SPECIALIST): Chronic & stable on meds. Continue current treatment. Assessment & Plan (06/18/2017 1:26 PM COMMISSIONING SPECIALIST): Chronic & stable on meds. Continue current treatment. Assessment & Plan (12/13/2016 3:05 PM CDT): Doing well with current treatment program and medications. No changes today Chronic obstructive pulmonary disease 02/15/2015 Assessment & Plan (07/28/2020 7:42 PM COMMISSIONING SPECIALIST): Stable with out prescription medication. He feels like albuterol has not been helpful at all. Assessment & Plan (01/26/2020 11:08 AM CDT): Stable with no current medications. Assessment & Plan (04/21/2019 11:32 PM CDT): Will give Keflex (cephalexin) today and robitussin dm today. I can add prednisone and chest x-ray if not having improvement. Assessment & Plan (12/18/2018 9:24 PM CDT): Chronic & stable on meds. Continue current treatment. Assessment & Plan (06/18/2018 2:20 PM COMMISSIONING SPECIALIST): Stable without regular use of inhalers. Assessment & Plan (03/12/2018 7:01 PM CDT): Albuterol HFA with aerochamber given today. Doxycycline and prednisone given for the exacerbation. Assessment & Plan (12/17/2017 9:42 PM CDT): Stable without medications and he doesn't want inhaler at this time. Assessment & Plan (12/13/2016 3:06 PM CDT): Patient refuses medications so no change in treatment. Benign prostatic hyperplasia with urinary hesita ncy 02/15/2015 Assessment & Plan (11/03/2020 12:10 PM CDT): Chronic and stable. Continue current medication(s) Assessment & Plan (07/28/2020 7:41 PM COMMISSIONING SPECIALIST): Increase the doxazosin from 1 mg to 2 mg. Assessment & Plan (01/26/2020 11:09 AM CDT): Patient only took the doxazosin a couple times. Stop completely due to not taking it regularly and some lightheadedness when standing. Assessment & Plan (07/28/2019 11:16 PM COMMISSIONING SPECIALIST): Start doxazosin (Cardura). Patient opted out of getting PSA testing at this time. Resolved Problems Problem Noted Date Diagnosed Date Resolved Date Late onset Alzheimer's disea se without behavioral disturbance 09/20/2020 09/20/2020 Bilateral impacted cerumen 07/28/2020 0 09/17/2020 Assessment & Plan (07/28/2020 7:22 PM COMMISSIONING SPECIALIST): Ear irrigation today. Encounter for Medicare annual wellness exam 01/26/2020 05/06/2020 Assessment & Plan (01/26/2020 11:15 AM CDT): Discussed importance of a healthy diet and increased activity on health. He received his first pneumonia vaccine today. We discussed how he gets his food and prepares it. Abnormal ECG 03/29/2018 12/18/2018 Assessment & Plan (03/29/2018 1:49 PM CDT): ECG today reveals sinus rhythm, right bundle branch block and minor nonspecific ST-T abnormality. When compared to ECG of 03/12/2018, ST-T abnormality is less pronounced. Other chest pain 03/12/2018 06/18/2018 Assessment & Plan (03/29/2018 1:50 PM CDT): Atypical in nature. Due to the presence of chest pain and abnormal ECG, echocardiogram and Lexiscan nuclear stress test will be obtained for further evaluation. Assessment & Plan (03/12/2018 6:59 PM CDT): Patient told to go to ER if he gets any recurrent episodes of CP since he had abnormal EKG with RBBB today. I expect this is likely old, but he may have real disease with anginal symptoms. Consulting cardiology JERONIMO. Chest x-ray was negative. Skin lesion of hand 06/18/2017 12/18/19 Assessment & Plan (06/18/2017 1:20 PM COMMISSIONING SPECIALIST): These look like a type of squamous cancer so will consult dermatology. He also may have other AKs present. Atrial fibrillation (CMS/HCC) 03/18/2015 12/13/2016 Overview (10/07/2016): Atrial fibrillation Major depressive disorder 02/15/2015 Overview (10/07/2016): MDD Chronic coronary artery disease 02/15/2015 12/13/2016 Overview (10/07/2016): Coronary artery disease Male erectile disorder 02/15/201505/06 Helicobacter pylori gastroin testinal tract infection 02/15/2015 12/13/2016 Overview (10/07/2016): Helicobacter pylori gastrointestinal tract infection Herpes zoster 02/15/2015 12/13/2016 Overview (10/07/2016): Herpes zoster Encounters Date Type Department Care Team Description 06/26/2024 Telephone [facility] [address] [address] Feliberto Ramey MD INR from Last 3 Months Immunizations Name Administration Dates Next Due Influenza, Quadrivalent, Hig h Dose, Preservative Free, Intrr 04/29/2022,06/29/2021,05/06/2020 Influenza, Trivalent, High D ose, Split, Preservative Free, Intramuscular 04/11/2019,03/29/2018,06/18/2017,06/02 Influenza, Trivalent, Preser vative Free, Intramuscular 05/25/2014 Pneumococcal Conjugate PCV 13 12/18/2018 Pneumococcal Polysaccharide PPV23 01/26/2020 Tdap 01/15/2022,12/13/2019 Surgical History Surgery Date Site/Laterality Comments PROSTATECTOMY prostatectomy OTHER SURGICAL HISTORY gastric surgery OTHER SURGICAL HISTORY amputation of left index finger CHOLECYSTECTOMY 2007 Cholecystectomy Medical History Medical History Date Comments Atrial fibrillation (CMS/HCC) (HCC) COPD (chronic obstructive pulmonary disease) (HC C) Mixed conductive and sensorineural hearing loss Family History Medical History Relation Name Comments Heart disease Father Heart disease; Relation Name Status Comments Father Social History Tobacco Use Types Packs/Day Years Used Date Smoking Tobacco: Former Cigarettes Smokeless Tobacco: Former Tobacco Cessation:Counseling Given: Not Answered Alcohol Use Standard Drinks/Week Comments Yes 0 (1 standard drink = 0.6 oz pur e alcohol) Social Connection and Isolat ion Panel [NHANES] Answer Date Recorded In a typical week, how many times do you talk on the phone with family, friends, or neighbors? More than three times a week 05/13/2020 How often do you get togethe r with friends or relatives? Once a week 05/13/2020 How often do you attend chur ch or zoroastrian services? Never 05/13/2020 Do you belong to any clubs o r organizations such as taoism groups, unions, fraternal or athletic groups, or school groups? No 05/13/2020 How often do you attend meet ings of the clubs or organizations you belong to? Never 05/13/2020 Are you , , di vorced, , never , or living with a partner? 05/13/2020 Overall Financial Resource Strain (CARDIA) Answe r Date Recorded How hard is it for you to pa y for the very basics like food, housing, medical care, and heating? Hard 07/20/2020 PHQ-2 Answer Date Recorded PHQ-2 Total Score (If total score is 3 or more points, staff should administer the PHQ-9) 0 11/03/2020 Hunger Vital Sign Answer Date Recorded Within the past 12 months, y ou worried that your food would run out before you got the money to buy more. Never true 09/16/19 21 Within the past 12 months, t he food you bought just didn't last and you didn't have money to get more. Never true 09/15/2020 PRAPARE - Transportation Answer Date Re corded In the past 12 months, has l ack of transportation kept you from medical appointments or from getting medications? No 05/02 In the past 12 months, has l ack of transportation kept you from meetings, work, or from getting things needed for daily living? No 05/13/2020 Housing Stability Vital Sign Answer Mark e Recorded In the last 12 months, was t here a time when you were not able to pay the mortgage or rent on time? No 12/30/2020 In the last 12 months, how many places have you lived? 2 12/30/2020 In the last 12 months, was t here a time when you did not have a steady place to sleep or slept in a longterm (including now)? No 12/30/2020 Personal Safety Answer Date Recorded Getting School Help Needed Not on file 07/30 Sex and Gender Information Value Date Recorded Sex Assigned at Not on file Legal Sex Male 3:40 AM COMMISSIONING SPECIALIST Gender Identity Not on file Sexual Orientation Not on file Obstetrics History Last Filed Vital Signs Vital Sign Reading Time Taken Comments Blood Pressure 134/62 10/26/2023 9:28 AM CDT Pulse 79 10/26/2023 9:28 AM CDT Temperature 36.9 ??C (98.4 ??F) 07/28/2020 8:55 AM CS T Respiratory Rate 18 11/03/2020 9:16 AM CDT Oxygen Saturation 96% 10/26/2023 9:28 AM CDT Inhaled Oxygen Concentration - - Weight 69.2 kg (152 lb 9.6 oz) 10/26/2023 9:28 A M CDT Height 182.9 cm (6') 10/26/2023 9:28 AM CDT Body Mass Index 20.7 10/26/2023 9:28 AM CDT Plan of Treatment Health Maintenance Due Date Last Done Comments Hepatitis B Screening 11/22/1953 Zoster Vaccine (1 of 2) 11/22/1985 Well Visit 65+ 01/25/2021 01/26/2020, 12/18/2018 Depression Screening 11/03/2021 11/03/2020, 09/17/2020, 07/28/2020, Additional history exists Fall Risk Assessment 11/03/2021 11/03/2020, 09/17/2020, 07/28/2020, Additional history exists Influenza Vaccine (#1) 2024 , 06/29/2021, 05/06/2020, Additional history exists DTaP/Tdap/Td Vaccine (3 - Td or Tdap) 01/16/2032 01/15/2022, 12/13/2019 Pneumococcal vaccine 65+ Completed 01/26/2020, 11/30 Insurance MEDICARE MEDICARE MEDICARE MEDICARE MEDICARE Advance Directives For more information, please contact: [phone] Documents on File Type Date Recorded Patient Clinical Laboratory Scientist Expl anation ADVANCE DIRECTIVE 09/16/2021 9:00 AM Power of Industrial Sales Manager-Medical ADVANCE DIRECTIVE 06/23/2021 4:03 PM Annabel r of Industrial Sales Manager-Medical ADVANCE DIRECTIVE 03/05/2019 10:13 AM POWER OF FUR GLOSSER-MEDICAL ADVANCE DIRECTIVE 03/04/2019 2:22 PM POWER OF FUR GLOSSER-MEDICAL Care Teams Senior Clinical Study Manager Relationship Specialty Start Date End Date Miller Mcmanus MD [address] [address] PCP - General Family Medicine 10/20/22
--- OUTSIDE RECORDS SUMMARY | 2024-07-09 02:17 | XMS_ITS | Encounter Summary ---
Author Organization [facility] Medical Group Address [address] [facility] [address] [place] [address] Care Team Providers Care Cutter And Presser Name Role Phone Violeta Casillas DO Primary Care Provider + Encounter Details Date Type Department Care Team (Late st Contact Info) Description 06/23/2021 Telephone [facility] [address] [place] [address] Violeta Casillas DO [address] [place] [address] Social History Tobacco Use Types Packs/Day Years Used Date Smoking Tobacco: Former Smokeless Tobacco: Former Alcohol Use Standard Drinks/Week Comments Yes 0 [...] often do you attend chur ch or islam services? Never 05/13/2020 Do you belong to any clubs o r organizations such as buddhism groups, unions, fraternal or athletic groups, or [...] place to sleep or slept in a half-way (including now)? 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 PRINTED CIRCUIT BOARD PANELS DEVELOPER Gender Identity Not on file Sexual Orientation Not on file documented as of this encounter Miscellaneous Notes * Telephone Encounter - Nguyễn Rueda - 06/23/2021 1:16 PM CST I did not speak to her but I will email them TED CIRCUIT BOARD PANELS DEVELOPER * Telephone Encounter - Ruth Hankins LPN - 06/23/2021 11:27 AM PRINTED CIRCUIT BOARD PANELS DEVELOPER Please email hipaa forms to daughter. She says you told her you'd do it yesterday. TED CIRCUIT BOARD PANELS DEVELOPER documented in this encounter Plan of Treatment Not on file documented as of this encounter Visit Diagnoses Not on filedocumented in this encounter Care Teams Cutter And Presser Relationship Specialty Start Date End Date Violeta Casillas DO PCP - General 09/29/16 09/15/21 documented as of this encounter
--- OUTSIDE RECORDS SUMMARY | 2024-07-09 02:17 | XMS_ITS | Encounter Summary ---
Author Organization [facility] Medical Group Address [address] [facility] [address] [place] [address] Care Team Providers Care Fig Bar Machine Operator Name Role Phone Violeta Casillas Primary Care Provider + Spring Banerjee RN Unavailable [phone] Nancy Mcgregor [facility] Unavailable [phone] Elo Sánchez WEB MARKETING COORDINATOR Unavailable [phone] Reason for Visit * Reason Onset Date Comments Patient was Fired from PCP 10/27/2020 Encounter Details Date Type Department Care Team (Late st Contact Info) Description 10/27/2020 Telephone [facility] [address] [place] [address] Elo Sánchez, WEB MARKETING COORDINATOR [address] [facility] [address] [place] [address] Patient was Fired from PCP Social History Tobacco Use Types Packs/Day Years [...] week 05/13/2020 How often do you attend [facility] or evangelical services? Never 05/13/2020 Do you belong to any clubs o r organizations such as hinduism groups, unions, fraternal or athletic groups, or [...] the mortgage or rent on time? No 09/15/2020 In the last 12 months, how many places have you lived? 1 09/15/2020 In the last 12 months, was t here a time when you did not have a steady place to sleep or slept in a fpc (including now)? No 09/15/2020 Sex and Gender Information Value Date Recorded Sex Assigned at Not on file Legal Sex Male 3:40 AM BUTTON SAWYER Gender Identity Not on file Sexual Orientation Not on file documented as of this encounter Miscellaneous Notes * Telephone Encounter - Elo Sánchez, WEB MARKETING COORDINATOR - 10/27/2020 4:02 PM CDT Thank you for the clarification. He did seem to have some confusion as he didn't recognize me and didn't remember asking me for resources to help him get hearing aids and glasses. I'll continue to follow and will update the mechanical systems designer and Pharmacist following him. MARC Larkin, MIKO Clinical Clinic Mgr [facility] - O [phone] * Telephone Encounter - Ruth Hankins LPN - 10/27/2020 3:37 PM CDT Hi Elo, We did not fire Mr. Davila. We have done everything we can possibly do to help him out. He must be confused. He does have a neighbor that has recently entered the picture, she has been rude and demanding to our office staff. Not sure if she had anything to do with him thinking that or not. Thanks, YOLI Miranda Nurse for Dr. Violeta Casillas * Telephone Encounter - Violeta Casillas DO - 10/27/2020 3:16 PM CDT That is absolutely NOT true. * Telephone Encounter - Elo Sánchez LCSW - 10/27/2020 2:[address] Violeta Casillas, My name is Elo Sánchez LCSW and I am a Clinical Clinic Mgr with the [facility]'s ACO. I just got off the phone with the patient and he relayed that you've fired him as a patient. I justwant to clarify if that's true as I'll need to send him a list of primary care physicians that are near where he lives. Thanks for your time. MARC Larkin, MIKO Clinical Clinic Mgr [facility] - ACO [phone] documented in this encounter Plan of Treatment Not on file documented as of this encounter Visit Diagnoses Not on filedocumented in this encounter Care Teams Fig Bar Machine Operator Relationship Specialty Start Date End Date Violeta Casillas DO PCP - General 09/29/16 09/15/21 Spring Banerjee, RN [address] [place] [address] [address] [place] [address] Elevator Constructor Hydraulic 05/07/20 12/29/20 Nancy Mcgregor, [address] [place] [address] Pharmacist Pharmacy 09/29/20 12/12/20 Elo Sánchez LCSW [address] [place] [address] [address] [place] [address] Clinic Mgr Cable Television Access Coordinator 09/30/20 11/03/20 documented as of this encounter
--- OUTSIDE RECORDS SUMMARY | 2024-07-09 02:17 | XMS_ITS | Encounter Summary ---
Author Organization [facility] Medical Group Address [address] [facility] [address] [place] [address] Care Team Providers Care Microfilm Machine Operator Name Role Phone Violeta Casillas DO Primary Care Provider + Spring Banerjee RN Unavailable [phone] Reason for Visit * Reason Comments Follow-up wants anxiety meds r efilled Encounter Details Date Type Department Care Team (Late st Contact Info) Description 09/21/2020 11:00 AM CDT [facility] [address] [place] [id number] Violeta Casillas DO [address] [place] [address] Dementia (CMS/HCC) (Primary Dx); Hypertension, essential; Episode of recurrent major depressive disorder, unspecified depression episode severity (CMS/HCC); AGATA (generalized anxiety disorder) Social History Tobacco Use Types Packs/Day Years [...] 05/13/2020 How often do you attend chur or hinduism services? Never 05/13/2020 Do you belong to any clubs o r organizations such as spiritism groups, unions, fraternal or athletic groups, or [...] points, staff should administer the PHQ-9) 0 09/17/2020 Hunger Vital Sign Answer Date Recorded Within [...] place to sleep or slept in a senior care (including now)? No 09/15/2020 Sex and Gender Information Value Date Recorded Sex Assigned at Not on file Legal Sex Male 3:40 AM PRORATE CLERK Gender Identity Not on file Sexual Orientation Not on file documented as of this encounter Last Filed Vital Signs Vital Sign Reading Time Taken Comments Blood Pressure 144/76 09/21/2020 10:43 AM CDT Pulse 93 09/21/2020 10:43 AM CDT Temperature - - Respiratory Rate 16 09/21/2020 10:43 AM CDT Oxygen Saturation 95% 09/21/2020 10:43 AM CDT Inhaled Oxygen Concentration - - Weight 71 kg (156 lb 9.6 oz) 09/21/2020 10:43 AM CDT Height 182.9 cm (6' 0.01 ) 09/21/2020 10:43 AM C DT Body Mass Index 21.23 09/21/2020 10:43 AM CDT documented in this encounter Progress Notes * Violeta Casillas, - 09/21/2020 11:00 AM CDT Images from the original note were not included. Subjective/Objective Patient ID: Noé Davila is a 84 y.o. male. Chief Complaint Follow-up (wants anxiety meds refilled) Vitals: 09/21/20 1043 BP: 144/76 Pulse: 93 Resp: 16 SpO2: 95% Weight: 71 kg (156 lb 9.6 oz) Height: 182.9 cm (6' 0.01 ) Body mass index is 21.23 kg/m??. Patient is here for close follow-up after having a mini mental status exam with Brandy Alas. I have reviewed medical, social, and family histories in depth with patient and/or their practice representative. Review of Systems PHQ Screening Physical Exam Vitals and nursing note reviewed. Constitutional: General: He is not in acute distress. Appearance: Normal appearance. He is well-developed. He is not ill-appearing, toxic-appearing or diaphoretic. HENT: Head: Normocephalic and atraumatic. Eyes: Conjunctiva/sclera: Conjunctivae normal. Cardiovascular: Rate and Rhythm: Normal rate. Rhythm irregularly irregular. Heart sounds: Normal heart sounds. No murmur. No friction rub. No gallop. Pulmonary: Effort: Pulmonary effort is normal. No respiratory distress. Breath sounds: Normal breath sounds. No stridor. No wheezing, rhonchi or rales. Abdominal: General: Bowel sounds are normal. Musculoskeletal: Right lower leg: No edema. Left lower leg: No edema. Skin: Findings: No erythema or rash. Neurological: Mental Status: He is alert and oriented to person, place, and time. Cranial Nerves: No cranial nerve deficit. Psychiatric: Attention and Perception: Attention normal. Mood and Affect: Mood is anxious. Speech: Speech normal. Behavior: Behavior normal. Thought Content: Thought content does not include homicidal or suicidal ideation. Cognition and Memory: Memory is impaired. Assessment/Plan Diagnoses and all orders for this visit: Dementia (CMS/HCC) (Primary) Assessment & Plan: Will fill out regional company flatbed truck driver form as I don't feel patient is safe to drive anymore. Hypertension, essential Assessment & Plan: Patient to restart doxazosin from pill packs to pharmacy. Episode of recurrent major depressive disorder, unspecified depression episode severity (CMS/[facility]) Assessment & Plan: Pay sent switching back from mirtazapine back to nortriptyline. AGATA (generalized anxiety disorder) Assessment & Plan: He should be restarting nortriptyline today if possible with pill packs from the pharmacy. BMI Follow-up includes: education provided. No orders of the defined types were placed in this encounter. Current Outpatient Medications Medication Sig Dispense Refill ??? amitriptyline (ELAVIL) 10 mg tablet Take 1 tablet (10 mg total) by mouth nightly 30 tablet 11 ??? atorvastatin (LIPITOR) 20 mg tablet Take 1 tablet (20 mg total) by mouth nightly 90 tablet 3 ??? doxazosin (CARDURA) 2 mg tablet Take 1 tablet (2 mg total) by mouth nightly 30 tablet 11 ??? rOPINIRole (REQUIP) 0.25 mg tablet Take 1 tablet (0.25 mg total) by mouth 3 (three) times a dayFor tremors 90 tablet 11 ??? warfarin (COUMADIN) 1 mg tablet Take a total of 8mg by mouth daily. May mix other forms of warfarin to get sum of 8mg. 180 tablet 1 ??? warfarin (COUMADIN) 5 mg tablet Take a total of 8mg by mouth daily. May mix other forms of warfarin to get sum of 8mg. 90 tablet 1 No current facility-administered medications for this visit. Violeta Casillas DO This note was dictated using [employer] voice recognition software. Variances in spelling and vocabulary are possible and errors are unintentional. documented in this encounter Miscellaneous Notes * Assessment & Plan Note - Violeta Casillas DO - 09/21/2020 10:24 PM CDT Associated Problem(s): Recurrent major depressive disorder (HCC) Pay sent switching back from mirtazapine back to nortriptyline. * Assessment & Plan Note - Violeta Casillas DO - 09/21/2020 10:23 PM CDT Associated Problem(s): Hypertension, essential Patient to restart doxazosin from pill packs to pharmacy. * Assessment & Plan Note - Violeta Casillas DO - 09/21/2020 10:23 PM CDT Associated Problem(s): AGATA (generalized anxiety disorder) He should be restarting nortriptyline today if possible with pill packs from the pharmacy. * Assessment & Plan Note - Violeta Casillas DO - 09/21/2020 11:17 AM CDT Associated Problem(s): Dementia (HCC) Will fill out regional company flatbed truck driver form as I don't feel patient is safe to drive anymore. documented in this encounter Plan of Treatment Not on file documented as of this encounter Visit Diagnoses Diagnosis Dementia (HCC)- Primary Other persistent mental disorders due to conditions classified elsewhere Hypertension, essential Unspecified essential hypertension Episode of recurrent major depressive disorder, unspecified depression episode severity (HCC) AGATA (generalized anxiety disorder) Generalized anxiety disorder documented in this encounter Care Teams Microfilm Machine Operator Relationship Specialty Start Date End Date Violeta Casillas DO PCP - General 09/29/16 09/15/21 Spring Banerjee RN [address] [place] [address] [address] [place] [address] Dental Practice Manager 05/07/20 12/29/20 documented as of this encounter
--- OUTSIDE RECORDS SUMMARY | 2024-07-09 02:17 | XMS_ITS | Encounter Summary ---
Author Organization [facility] Medical Group Address [address] [facility] [address] [place] [address] Care Team Providers Care Monorail Car Operator Name Role Phone Violeta Casillas Primary Care Provider + Spring Banerjee RN Unavailable [phone] Nancy Mcgregor [facility] Unavailable [phone] Elo Sánchez [facility] Unavailable [phone] Brandon Sandoval MD Primary Care Provider + [phone] Reason for Visit * Reason Comments Med Management Replacing warfarin w ith aspirin Encounter Details Date Type Department Care Team (Late st Contact Info) Description 10/25/2020 ACO Clinical Pharmacist [facility] Accountable Care Organization [address] [place] [address] Nancy Mcgregor, [facility] [address] [facility] [address] [place] [address] Social History Tobacco Use Types Packs/Day Years [...] How often do you attend chur or yarsani services? Never 05/13/2020 Do you belong to any clubs o r organizations such as mu-ism groups, unions, fraternal or athletic groups, or [...] place to sleep or slept in a halfway (including now)? 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 LAB SUPPORT TECH Gender Identity Not on file Sexual Orientation Not on file documented as of this encounter Progress Notes * Violeta Casillas, - 10/25/2020 11:35 AM CDT I think adding aspirin 81mg daily would be ok for him to take daily. Ruth, please notify patient and add to med list if he is willing. * Ruth Hankins LPN - 10/25/2020 11:35 AM CDT Patient aware and agreeable. Sent to pharmacy so he can see if script or OTC is cheaper. documented in this encounter Miscellaneous Notes * Telephone Encounter - Nancy Busch RPh - 10/25/2020 11:35 AM CDT [facility] Clinical Pharmacist Chart Review Recommendations to provider: 1) upon discontinuation of warfarin, consider replacing with aspirin 81 mg daily Follow-up: with this junior copywriter via telephone to communicate any approved medication-related changes asabove; then, in approximately 1 week(s) for updated med list mailed to patient. Emani Busch, KaiaD Clinical Pharmacist [facility] Medical Group ([facility] & [facility] Pertinent Subjective/Objective: Patient was referred by [facility] Care Mgmt shipping team leader; referral reason: medication management. Per chart review, ACO RN found patient non compliant to INR checks. Upon message to primary care provider, Dr. Casillas decided it would be in best interest of patient to discontinue warfarin to to noncompliance, risk for falls, illiteracy, cognitive impairment. Dr. Casillas believes it is a greater riskfor patient to be on warfarin at this time. ACO RN contacted junior copywriter for next steps and evaluation if aspirin should be initiated. Assessment: #1 Atrial fibrillation ??? Medication therapy problem: Medication safety ??? Patient has been correctly anticoagulated for atrial fibrillation due to chads Vasc score. However, at this time it has been determined by PCP that anticoagulation is no longer appropriate for patient due to noncompliance, risk for falls, illiteracy, cognitive impairment. ??? Upon discontinuation of warfarin, would be appropriate to switch to aspirin 81 mg daily. Will route to PCP for review. The visit was approximately 15 minutes in duration, all of which was via chart review. The patient was not contacted during initial chart review of this encounter. This message was communicated to the provider and referring ACO Care Mgmt shipping team leader via routed note. This note was created using voice recognition software. Grammatical and spelling errors may exist. If you have any questions or concerns please contact me. documented in this encounter Plan of Treatment Not on file documented as of this encounter Visit Diagnoses Not on filedocumented in this encounter Care Teams Monorail Car Operator Relationship Specialty Start Date End Date Violeta CasillasDO PCP - General 09/29/16 09/15/21 Brandon Sandoval MD [address] [place] [address] [address] [place] [address] PCP - General Internal Medicine 09/16/21 10/19/22 Spring Banerjee RN [address] [place] [address] [address] [place] [address] Plug Grower 05/07/20 12/29/20 Nancy Mcgregor [address] [place] [address] Pharmacist Pharmacy 09/29/20 12/12/20 Elo Sánchez, [address] [place] [address] Rn Lactation Consultant Case Finisher 09/30/20 11/03/20 documented as of this encounter
--- OUTSIDE RECORDS SUMMARY | 2024-07-09 02:17 | XMS_ITS | Encounter Summary ---
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 Never 05/13/2020 Do you belong to any clubs o r organizations such as congregation groups, unions, fraternal or athletic groups, or [...] place to sleep or slept in a correction (including now)? No 12/30/2020 Personal Safety Answer Date Recorded Getting School Help Needed Not on file 07/30 Sex and Gender Information Value Date Recorded Sex Assigned at Not on file Legal Sex Male 3:40 AM MEDICAL LABORATORY TECHNICAL OFFICER Gender Identity Not on file Sexual Orientation Not on file documented as of this encounter Ordered Prescriptions Prescription Sig Dispense Quantity Refills Last Filled Start Date End Date warfarin (COUMADIN) 5 mg tabletIndications:a trial fibrillation Take 1 tablet (5 mg total) by mouth daily 30 tablet 3 11/13/2023 documented in this encounter Miscellaneous Notes * Telephone Encounter - Patrick Dick RN - 11/13/2023 4:21 PM CDT Enrolled pt in coumadin clinic. 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
--- OUTSIDE RECORDS SUMMARY | 2024-07-09 02:17 | XMS_ITS | Encounter Summary ---
Author Organization [facility] Medical Group Address [address] [facility] [address] [place] [address] Care Team Providers Care Chief Nurse Anesthetist Name Role Phone Brandon Sandoval MD Primary Care Provider + [phone] Encounter Details Date Type Department Care Team (Late st Contact Info) Description 08/01/2022 Telephone [facility] Medical [facility] Cardiology [address] [facility] [address] [place] [address] Feliberto Ramey MD [facility] [address] [place] [address] Social History Tobacco Use Types Packs/Day Years [...] often do you attend chur ch or yazidi services? Never 05/13/2020 Do you belong to any clubs o r organizations such as hindu groups, unions, fraternal or athletic groups, or [...] place to sleep or slept in a long term (including now)? 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 FISH BAIT PROCESSING SUPERVISOR Gender Identity Not on file Sexual Orientation Not on file documented as of this encounter Ordered Prescriptions Prescription Sig Dispense Quantity Refills Last Filled Start Date End Date nitroglycerin (NITROSTAT) 0.[address] 1 tablet (0.4 mg total) under the tongue every 5 (five) minutes as needed for chest pain May repeat dose q 5 min, up to 3 doses total 90 tablet 1 08/28/2022 4 documented in this encounter Miscellaneous Notes * Addendum Note - Spring Brown - 08/28/2022 8:31 AM CSTAddended by: SPRING BROWN on: 08/28/2022 08:31 AM Modules accepted: Orders BAIT PROCESSING SUPERVISOR * Telephone Encounter - Spring Brown - 08/28/2022 8:29 AM CST Roseanne called with recommendations. Sending in nitro to [facility] in [place]. BAIT PROCESSING SUPERVISOR * Telephone Encounter - Feliberto Ramey MD - 08/26/2022 11:06 AM FISH BAIT PROCESSING SUPERVISOR I do not for see any immediate need for testing for either Mr. Marquez or Mr. Palma. I think we should get Mr. Marquez a prescription for sublingual nitroglycerin and provided with instructions on howto use it. Please ask them to keep us updated. BAIT PROCESSING SUPERVISOR * Telephone Encounter - Spring Brown - 08/01/2022 10:00 AM FISH BAIT PROCESSING SUPERVISOR Received call from daughter Roseanne Noguera [phone] for follow up appt same day as her Luc Noguera on September 22 (scheduled) reporting some occasional chest pain a few times recently. Gets winded and tired easily. Wanting to know if any testing could be done that same day. Will Luc Noguera need an echo? Would like to arrange all testing and ov the same day. BAIT PROCESSING SUPERVISOR documented in this encounter Plan of Treatment Not on file documented as of this encounter Visit Diagnoses Not on filedocumented in this encounter Care Teams Chief Nurse Anesthetist Relationship Specialty Start Date End Date Brandon Sandoval MD PCP - General Internal Medicine 09/16/21 10/19/22 documented as of this encounter
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
--- OUTSIDE RECORDS SUMMARY | 2024-07-09 02:17 | XMS_ITS | Encounter Summary ---
Author Organization [facility] Address [address] [place] [address] Care Team Providers Care Senior Research Scientist Name Role Phone Miller Mcmanus MD Primary Care Provider [phone] Reason for Visit * Reason Onset Date Comments INR reminder 01/31/2024 Encounter Details Date Type Department Care Team (Late st Contact Info) Description 01/31/2024 Telephone [facility] Medical [facility] Cardiology [address] [place] [address] Feliberto Ramey MD [address] [facility] [address] [place] [address] INR reminder Social History Tobacco Use Types Packs/Day Years [...] often do you attend chur ch or uatsdin services? Never 05/13/2020 Do you belong to any clubs o r organizations such as jew groups, unions, fraternal or athletic groups, or [...] place to sleep or slept in a prison (including now)? 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 CB information provided documented in this encounter Plan of Treatment Not on file documented as of this encounter Visit Diagnoses Not on filedocumented in this encounter Care Teams Senior Research Scientist Relationship Specialty Start Date End Date Miller Mcmanus MD [address] [address] PCP - General Family Medicine 10/20/22 documented as of this encounter
--- OUTSIDE RECORDS SUMMARY | 2024-07-09 02:17 | XMS_ITS | Encounter Summary ---
Author Organization [facility] Address [address] [place] [address] Care Team Providers Care Program Engineer Name Role Phone Violeta Casillas Primary Care Provider + Spring Banerjee RN Unavailable [phone] [facility] Unavailable [phone] Elo Sánchez [facility] Unavailable [phone] Reason for Visit * Reason Comments Unsuccessful Phone Call 1 Encounter Details Date Type Department Care Team (Late st Contact Info) Description 10/05/2020 ACO Clinical Pharmacist [facility] Accountable Care Organization [address] [place] [address] Nancy Mcgregor, [facility] [address] [facility] [address] [place] [address] Social History Tobacco Use Types Packs/Day Years [...] often do you attend chur ch or faith services? Never 05/13/2020 Do you belong to any clubs o r organizations such as sikhism groups, unions, fraternal or athletic groups, or [...] place to sleep or slept in a jail (including now)? 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 - 10/05/2020 4:03 PM CDT A[facility] Clinical Pharmacist Outreach Pertinent Subjective/Objective: Patient was referred by [facility] Care Mgmt team truck driver; referral reason: medication adherence. Called patient to inform that mailed med list with pictures. No answer. Left VM to return call to this promotion writer to discuss. This is first unsuccessful attempt. Cooler Man will attempt contact again within 7 days. Emani Busch, PharmD Clinical Pharmacist [facility] documented in this encounter Plan of Treatment Not on file documented as of this encounter Visit Diagnoses Not on filedocumented in this encounter Care Teams Program Engineer Relationship Specialty Start Date End Date Violeta Casillas DO PCP - General 09/29/16 09/15/21 Spring Banerjee, RN [address] [place] [address] [address] [place], [place] [id number] Manager Agency 05/07/20 12/29/20 Nancy Mcgregor [address] [place], [place] [id number] Pharmacist Pharmacy 09/29/20 12/12/20 Elo Sánchez, [address] [place], [place] [id number] Technical Sales Manager Preschool Education Director 09/30/20 11/03/20 documented as of this encounter
--- OUTSIDE RECORDS SUMMARY | 2024-07-09 02:17 | XMS_ITS | Encounter Summary ---
Author Organization [facility] Address [address] [place] [address] Phone Care Team Providers Care Flight Controls Engineer Name Role Phone Miller Mcmanus MD Primary Care Provider [phone] Encounter Details Date Type Department Care Team (Late st Contact Info) Description 07/19/2023 Orders Only [facility] [address] [place] [address] Unknown, Notinfile Social History Tobacco Use Types Packs/Day Years [...] often do you attend chur ch or yarsanism services? Never 05/13/2020 Do you belong to any clubs o r organizations such as roman catholic groups, unions, fraternal or athletic groups, or [...] place to sleep or slept in a fci (including now)? 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 Gender Identity Not on file Sexual Orientation Not on file documented as of this encounter Plan of Treatment Not on file documented as of this encounter Procedures Procedure Name Priority Date/Time Associated Diagnosis Comments SURGICAL PATHOLOGY Routine 07/19/2023 3: 54 PM AUTOMATED WEAVER documented in this encounter Results * Surgical pathology (07/19/2023 3:54 PM AUTOMATED WEAVER) Skin, shave biopsy 07/19/2023 3:54 PM AUTOMATED WEAVER 07/31/2023 6:35 AM AUTOMATED WEAVER Narrative 08/01/2023 12:54 PM AUTOMATED WEAVER EPIC results best viewed via link to PDF [facility] [address] [place] [address] [address] ??[place] [address] ? [email or web address] Note to Patients: ??This report may contain a detailed description of human tissue sent by a health care provider to the laboratory for pathologic evaluation. ??The content of this report is essential for diagnosis and may provide important critical findings. ??This information may be unfamiliar to patients to review without a medical professional present. ?? It is advised that the patient review this report in the presence of a health care provider who can answer questions and explain the details. FINAL REPORT Patient Information: PATIENT NAME: ??NÉO COWAN ? SEX: ??M ? : ??1935 (Age: 87) ? Specimen Information: COLLECTED: ??07/19/2023 ? RECEIVED: ??07/31/2023 ? REPORTED: ??08/01/2023 ? Submitting Physician Information: Ariadna Granda, [facility], [address] [place] [id number], ? DERMATOPATHOLOGY REPORT RESULTS ?? DIAGNOSIS: A. ??SKIN, LEFT SUPERIOR POSTERIOR HELIX, SHAVE BIOPSY: ? SQUAMOUS CELL CARCINOMA IN SITU ?? B. ??SKIN, RIGHT SUPERIOR POSTERIOR HELIX, SHAVE BIOPSY: ? SQUAMOUS CELL CARCINOMA, ACANTHOLYTIC TYPE exr/ajrr By this signature, I attest that the above diagnosis is based upon my personal examination of the slides(and/or other material indicated in the diagnosis). Nguyễn Langston M.D. ?? Report Electronically Reviewed and Signed Out By ??Nguyễn Langston M.D. 08/01/2023 12:54:24 CLINICAL INFORMATION A-B. NEOPLASM OF UNCERTAIN BEHAVIOR VS BCC VS SCC. SPECIMEN DATA MICROSCOPIC DESCRIPTION: A. Atypical keratinocytes are present throughout the entire thickness of the epidermis. (D04.9) B. Atypical keratinocytes with abundant pink cytoplasms extend from the undersurface of the epidermis into the reticular dermis. ??There is acantholysis within the cellular aggregates. (C44.92) GROSS DESCRIPTION: A. Received in a formalin-containing bottle is a superficial fragment of khoury and slightly crusted skin measuring 1.2 by 0.6 by 0.2 cm. The surgical margin is inked blue. The specimen is sectioned into 3 pieces and submitted entirely in a single cassette. Due to shrinkage, measurements may be different than those at time of procedure. B. Received in a formalin-containing bottle are two superficial fragments of pale khoury and finely scaling skin measuring 1.2 by 0.8 by 0.5 cm and 0.7 by 0.4 by 0.2 cm. ??The surgical margins are inked blue. ??The larger piece is sectioned into 3 pieces and the smaller piece is sectioned into 2 pieces. ??The specimen is submitted entirely in 2 cassettes. ??Due to shrinkage, measurements may be different than those at time of procedure. antonino/dxv ICD-9 ZSD.1474 ZSD.1469 ? Clerical Data A; 00560 B; 86529 The characteristics of special, immunohistochemical, and immunofluorescence stains and in-situ hybridization tests performed by the [facility] were deemed acceptable in ongoing quality control lab tech measures and in compliance with regulations drawn from the Clinical Laboratory Improvement Act ro3470 (CLIA '88). Control reactions for all stains performed were deemed adequate and appropriate by a pathologist prior to evaluation of patient tissue. Some diagnoses were rendered with the assistance of laboratory-developed tests utilizing analyte-specific reagents; the performance characteristic of these tests were determined by [facility] and are not cleared or approved by the [place] Food an Drug administration. Laboratory developed test may only be performed in a facility that is certified by the [facility] as a high-complexity laboratory under CLIA '88. These tests are used for clinical purposes and are not investigational. us Notinfile Unknown LAB PATHOLOGY ORDERABLES Final Result documented in this encounter Visit Diagnoses Not on filedocumented in this encounter Care Teams Flight Controls Engineer Relationship Specialty Start Date End Date Miller Mcmanus MD [address] [address] PCP - General Family Medicine 10/20/22 documented as of this encounter
--- OUTSIDE RECORDS SUMMARY | 2024-07-09 02:17 | XMS_ITS | Encounter Summary ---
Author Organization [facility] Address [address] [place] [address] Care Team Providers Care Acid Pump Operator Name Role Phone Violeta Casillas Primary Care Provider + Spring Banerjee RN Unavailable [phone] Nancy Mcgregor [facility] Unavailable [phone] Elo Sánchez ASSISTANT WOMEN'S BASKETBALL COACH Unavailable Reason for Visit * Reason Comments Chart Review Picture med list Encounter Details Date Type Department Care Team (Late st Contact Info) Description 09/30/2020 [facility] Clinical Pharmacist Chart Review [facility] Accountable Care Organization [address] [place] [address] Nancy Mcgregor, [facility] [address] [facility] [address] [place] [address] Social History Tobacco Use Types Packs/Day Years [...] often do you attend chur ch or latter day services? Never 05/13/2020 Do you belong to any clubs o r organizations such as adventist groups, unions, fraternal or athletic groups, or [...] place to sleep or slept in a retirement (including now)? No 09/15/2020 Sex and Gender Information Value Date Recorded Sex Assigned at Not on file Legal Sex Male 3:40 AM PSYCHIATRIC SPECIALIST Gender Identity Not on file Sexual Orientation Not on file documented as of this encounter Progress Notes * Nancy Busch RPh - 09/30/2020 2:11 PM CDT Images from the original note were not included. [facility] Clinical Pharmacist Chart Review Pertinent Subjective/Objective: Patient was referred by [facility] Care Mgmt juice bar team member; referral reason: medication adherence. Created photo med list for patient. Will mail and contact patient next week to discuss and ensure understands. Will also mail out a warfarin tablet color/strength chart: Follow-up: with this conventional underwriter via telephone in approximately 4 day(s) for check in. The visit was approximately 15 minutes in duration, all of which was via chart review. The patient was not contacted during this encounter. Kaia ZhuD Clinical Pharmacist [facility] ([facility] & [facility] This note was created using voice recognition software. Grammatical and spelling errors may exist. If you have any questions or concerns please contact me. documented in this encounter Plan of Treatment Not on file documented as of this encounter Visit Diagnoses Not on filedocumented in this encounter Care Teams Acid Pump Operator Relationship Specialty Start Date End Date Violeta Casillas DO PCP - General 09/29/16 09/15/21 Spring Banerjee RN [address] [place] [address] [address] [place] [address] Pelts Skinner 05/07/20 12/29/20 Nancy Mcgregor RPh [address] [place] [address] [address] [place] [address] Pharmacist Pharmacy 09/29/20 12/12/20 Elo Sánchez [address]CS[address] [place] [address] Big 6 Dealer Rn Radiation Oncology 09/30/20 11/03/20 documented as of this encounter
--- OUTSIDE RECORDS SUMMARY | 2024-07-09 02:17 | XMS_ITS | Encounter Summary ---
Author Organization [facility] Healthcare Address [address] [place] [address] Care Team Providers Care Cement Despatch Operator Name Role Phone Miller Mcmanus MD Primary Care Provider [phone] Reason for Visit * Reason Comments Atrial Fibrillation Encounter Details Date Type Department Care Team ([facility] st Contact Info) Description 10/26/2023 9:45 AM CDT Office Visit [facility] Medical Group Cardiology [address] [facility] [address], [place] [address] Feliberto Ramey MD [address] [place] [address] [address] [place] [address] Chronic atrial fibrillation (HCC) (Primary Dx); Peripheral arterial disease (HCC); Pure hypercholesterolemia ; Hypertension, essential Social History Tobacco Use Types Packs/Day Years [...] often do you attend chur ch or amish services? Never 05/13/2020 Do you belong to any clubs o r organizations such as quaker groups, unions, fraternal or athletic groups, or [...] place to sleep or slept in a intermediate (including now)? 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 Gender Identity Not on file Sexual Orientation Not on file documented as of this encounter Last Filed Vital Signs Vital Sign Reading Time Taken Comments Blood Pressure 134/62 10/26/2023 9:28 AM CDT Pulse 79 10/26/2023 9:28 AM CDT Temperature - - Respiratory Rate - - Oxygen Saturation 96% 10/26/2023 9:28 AM CDT Inhaled Oxygen Concentration - - Weight 69.2 kg (152 lb 9.6 oz) 10/26/2023 9:28 A M CDT Height 182.9 cm (6') 10/26/2023 9:28 AM CDT Body Mass Index 20.7 10/26/2023 9:28 AM CDT documented in this encounter Progress Notes * Feliberto Ramey MD - 10/26/2023 9:45 AM CDT Images from the original note were not included. [facility] [address] [address] Cardiology Electrophysiology Ranjan Sauceda, MD Jet Leiva, MD Brandon Andino, MD Brady Mcgee, MD Mikey Mc, MD Lawrence Boateng, MD Arturo Leyva, MD Jose M Barker, MD Spring Bojorquez, DYLAN Casillas, MD Keyona Sierra, DYLAN Ramey, MD Shannan Valverde, ETL BI DEVELOPERAdrián Young, MD Patrick Alexandra, MD Elmer Marquez, MD Salvador Lynn, MD Brandon Robles, PA Mira Yates, PA Charlette Pace, LOGGING ASSISTANT Denise Srinivasan, LOGGING ASSISTANT Smiley Terrell, LOGGING ASSISTANT Patient Name: Noé Davila Provider: Feliberto Ramey MD : 1935 Date of Service: 10/26/2023 Provider Requesting Consult: Miller Mcmanus MD CHIEF COMPLAINT: Atrial Fibrillation HISTORY OF PRESENT ILLNESS: 87 y.o. male with a history of chronic atrial fibrillation ([id number]= 4; age, hypertension, peripheral arterial disease). Additional medical problems include a reported history of peripheral arterial disease for which he may have undergone peripheral stenting at [facility] and dementia. Since his last appointment with me there have been no new clinical events. He continues to experience infrequent sporadic lightheadedness but no falls. No chest pain or dyspnea. PREVIOUS CARDIOVASCULAR PROCEDURES 1. Echocardiogram (04/2018): Normal left right ventricular systolic function. Mild mitral, tricuspid, and aortic insufficiency. 2. Lexiscan stress Test (04/2018): Ejection fraction 55%. Mild intensity fixed inferobasal and inferoseptal perfusion defect consistent with diaphragmatic attenuation. No reversible defects. ALLERGY Patient has no known allergies. MEDICATIONS Outpatient Encounter Medications as of 10/26/2023 Medication Sig Dispense Refill albuterol HFA (PROVENTIL HFA,VENTOLIN HFA,PROAIR HFA) 90 mcg/actuation inhaler Inhale 2 puffs every6 (six) hours as needed aspirin 81 mg chewable tablet Take 1 tablet (81 mg total) by mouth nightly 90 tablet 3 atorvastatin (LIPITOR) 20 mg tablet Take 1 tablet (20 mg total) by mouth nightly 90 tablet 3 docusate sodium (COLACE) 50 mg capsule Take by mouth 2 (two) times a day as needed for constipation doxazosin (CARDURA) 2 mg tablet Take 1 tablet (2 mg total) by mouth nightly 30 tablet 0 losartan (COZAAR) 50 mg tablet Take 1 tablet by mouth once daily 30 tablet 11 [DISCONTINUED] nitroglycerin (NITROSTAT) 0.[address] 1 tablet (0.4 mg total) under the tongue every 5 (five) minutes as needed for chest pain May repeat dose q 5 min, up to 3 doses total (Patient not taking: Reported on 10/20/2022) 90 tablet 1 No facility-administered encounter medications on file as of 10/26/2023. Review of Systems Constitutional: Negative for chills, fever, malaise/fatigue, weight gain and weight loss. Cardiovascular: Negative for chest pain, claudication, dyspnea on exertion, irregular heartbeat, leg swelling, near-syncope, orthopnea, palpitations, paroxysmal nocturnal dyspnea and syncope. Respiratory: Negative for cough, hemoptysis and shortness of breath. Skin: Negative for rash. Musculoskeletal: Positive for falls. Gastrointestinal: Negative for abdominal pain, constipation, diarrhea, heartburn, nausea and vomiting. Neurological: Negative for focal weakness. PHYSICAL EXAM: BP 134/62 Pulse 79 Ht 182.9 cm (6') Wt 69.2 kg (152 lb 9.6 oz) SpO2 96% BMI 20.70 kg/m?? General: Well appearing, No pain or distress, well nourished Eyes: EOMI, Conjuctiva Clear ENT: External ears/nose normal Neck: Supple Respiratory: Clear to ausculation bilaterally; no wheezing/rales/rhonchi; respirations nonlabored Cardiovascular: Irregular, normal S1 and S2. No S3 or S4. No murmers or rubs. Carotid upstrokes brisk bilaterally and without bruits. Gastrointestinal: soft, non-tender abdomen Extremities: no cyanosis or clubbing or edema Musculoskeletal: no obvious joint deformities Skin: no obvious rash or bruising Psychiatric: normal affect Neurologic: awake/alert, no focal deficits ASSESSMENT & PLAN: Diagnoses and all orders for this visit: Chronic atrial fibrillation (HCC) (Primary) Assessment & Plan: Remains without oral anticoagulant therapy. Again discussed options with the patient and family. The daughter reports that they are pursuing patient assistance programs for Xarelto or Eliquis would prefer those options over warfarin. She is indicated that she will get back to us with the outcome ofthat investigation. Peripheral arterial disease (HCC) Assessment & Plan: Denies claudication. Continue aspirin and Lipitor. Pure hypercholesterolemia Assessment & Plan: Well controlled with LDL of 81 mg/dL. Continue Lipitor. Orders: - POCT lipid panel Hypertension, essential Assessment & Plan: Well controlled. Continue current dose of losartan. Return in about 1 year (around 10/25/2024). Feliberto Ramey MD, [facility] documented in this encounter Miscellaneous Notes * Assessment & Plan Note - Feliberto Ramey MD - 10/26/2023 10:29 AM CDT Associated Problem(s): Pure hypercholesterolemia Well controlled with LDL of 81 mg/dL. Continue Lipitor. * Assessment & Plan Note - Feliberto Ramey MD - 10/26/2023 10:29 AM CDT Associated Problem(s): Peripheral arterial disease (HCC) Denies claudication. Continue aspirin and Lipitor. * Assessment & Plan Note - Feliberto Ramey MD - 10/26/2023 10:28 AM CDT Associated Problem(s): Hypertension, essential Well controlled. Continue current dose of losartan. * Assessment & Plan Note - Feliberto Ramey MD - 10/26/2023 10:28 AM CDT Associated Problem(s): Chronic atrial fibrillation (HCC) Remains without oral anticoagulant therapy. Again discussed options with the patient and family. The daughter reports that they are pursuing patient assistance programs for Xarelto or Eliquis would prefer those options over warfarin. She is indicated that she will get back to us with the outcome ofthat investigation. documented in this encounter Plan of Treatment Not on file documented as of this encounter Procedures Procedure Name Priority Date/Time Associated Diagnosis Comments POCT LIPID PANEL Routine 10/26/2023 9:42 AM CDT Pure hypercholesterolemia documented in this encounter Results * POCT lipid panel (10/26/2023 9:42 AM CDT) Cholesterol, POC 150 mg/dL HDL, POC 56 mg/dL Triglycerides, POC 67 mg/dL LDL Cholesterol POC 81 mg/dL Chol/HDL Ratio, POC 2.7 Non-HDL Cholesterol, POC 94 mg/dL Cholesterol Total, POC 150 mg/dL Capillary blood 10/26/2023 9 :42 AM CDT us Feliberto Ramey MD POINT OF CARE TEST ORD ERABLES Final Result documented in this encounter Visit Diagnoses Diagnosis Chronic atrial fibrillation (HCC)- Primary Atrial fibrillation Peripheral arterial disease (HCC) Unspecified peripheral vascular disease Pure hypercholesterolemia Hypertension, essential Unspecified essential hypertension documented in this encounter Discontinued Medications Medication Sig Discontinue Reason Start Date End Da te nitroglycerin (NITROSTAT) 0.[address] 1 tablet (0.4 mg total) under the tongue every 5 (five) minutes as needed for chest pain May repeat dose q 5 min, up to 3 doses total 08/28/2022 10/26/2023 documented as of this encounter Care Teams Cement Despatch Operator Relationship Specialty Start Date End Date Miller Mcmanus MD [address] [address] PCP - General Family Medicine 10/20/22 documented as of this encounter
--- OUTSIDE RECORDS SUMMARY | 2024-07-09 02:17 | XMS_ITS | Encounter Summary ---
Author Organization [facility] Medical Group Address [address] [facility] [address] [place] [address] Care Team Providers Care Buckram Sewer Name Role Phone CasillasVioleta Primary Care Provider + Spring Banerjee RN Unavailable [phone] Nancy Mcgregor [facility] Unavailable [phone] Elo Sánchez SUBMERSIBLE PILOT Unavailable Encounter Details Date Type Department Care Team (Late st Contact Info) Description 10/20/2020 Telephone [facility] [address] [place] [address] Ruth Hankins LPN Social History Tobacco Use Types Packs/Day Years [...] often do you attend chur ch or restorationist services? Never 05/13/2020 Do you belong to any clubs o r organizations such as zoroastrian groups, unions, fraternal or athletic groups, or [...] slept in a fci (including now)? 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 * Telephone Encounter - Ruth Hankins LPN - 10/20/2020 10:55 AM CDT Someone named Meme called an wants a copy of his last drivers license paper emailed to her. Patient was there and gave verbal okay, but I wasn't sure if he needed to physically sign for it. Email: [email or web address] documented in this encounter Plan of Treatment Not on file documented as of this encounter Visit Diagnoses Not on filedocumented in this encounter Care Teams Buckram Sewer Relationship Specialty Start Date End Date Vinny Diazlexa Alfaro DO PCP - General 09/29/16 09/15/21 Spring Banerjee, RN [address] [place] [address] [address] [place], [place] [id number] Manager Therapy 05/07/20 12/29/20 Nancy Mcgregor, Sherley [address] [place] [address] [address] [place] [address] Pharmacist Pharmacy 09/29/20 12/12/20 Elo Sánchez, [address] [place] [address] Enterprise Application Developer Belting Inspector 09/30/20 11/03/20 documented as of this encounter
--- OUTSIDE RECORDS SUMMARY | 2024-07-09 02:17 | XMS_ITS | Encounter Summary ---
Author Organization [facility] Healthcare Address [address] [place] [address] Care Team Providers Care Operations Coordinator Name Role Phone Miller Mcmanus MD Primary Care Provider [phone] Reason for Visit * Reason Onset Date Comments INR 06/26/2024 Encounter Details Date Type Department Care Team (Late st Contact Info) Description 06/26/[address] [facility] Medical Group Cardiology [address] [facility] [address] [place] [address] Feliberto Ramey MD [address] [facility] [address] [place] [address] INR Social History Tobacco Use Types Packs/Day Years [...] often do you attend chur ch or latter-day services? Never 05/13/2020 Do you belong to any clubs o r organizations such as presybeterian groups, unions, fraternal or athletic groups, or [...] to sleep or slept in a senior living (including now)? No 12/30/2020 Personal Safety Answer Date Recorded Getting School Help Needed Not on file 07/30 Sex and Gender Information Value Date Recorded Sex Assigned at Not on file Legal Sex Male 3:40 AM WAXER OPERATOR Gender Identity Not on file Sexual Orientation Not on file documented as of this encounter Miscellaneous Notes * Telephone Encounter - Roseanne Miller RDCS - 06/26/2024 2:37 PM CST LM on daughter's VM, Roseanne. Roseanne advised to call office in regards to her fathers Warfarin Management. Patient has not had INR drawn since 10/2023. R OPERATOR documented in this encounter Plan of Treatment Not on file documented as of this encounter Visit Diagnoses Not on filedocumented in this encounter Care Teams Operations Coordinator Relationship Specialty Start Date End Date Miller Mcmanus MD [address] [address] PCP - General Family Medicine 10/20/22 documented as of this encounter
--- OUTSIDE RECORDS SUMMARY | 2024-07-09 02:17 | XMS_ITS | Encounter Summary ---
Author Organization [facility] Medical Group Address [address] [facility] [address] [place] [address] Care Team Providers Care Braid Pattern Setter Name Role Phone Brandon Sandoval MD Primary Care Provider + [phone] Reason for Visit * Reason Comments Dizziness Encounter Details Date Type Department Care Team ([facility] st Contact Info) Description 09/16/2021 9:45 AM CDT Office Visit [facility] Medical [facility] Cardiology [address] [facility] [address] [place] [address] Feliberto Ramey MD [facility] [facility] [address] [place] [address] Chronic atrial fibrillation (HCC) (Primary Dx); Hypertension, essential; Peripheral arterial disease (CMS/HCC) (HCC) Social History Tobacco Use Types Packs/Day Years [...] often do you attend chur ch or christianity services? Never 05/13/2020 Do you belong to any clubs o r organizations such as methodist groups, unions, fraternal or athletic groups, or [...] place to sleep or slept in a usp (including now)? 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 LEAD CUSTODIAN Gender Identity Not on file Sexual Orientation Not on file documented as of this encounter Last Filed Vital Signs Vital Sign Reading Time Taken Comments Blood Pressure 160/88 09/16/2021 9:49 AM CDT Pulse 71 09/16/2021 9:49 AM CDT Temperature - - Respiratory Rate - - Oxygen Saturation 96% 09/16/2021 9:49 AM CDT Inhaled Oxygen Concentration - - Weight 68.4 kg (150 lb 12.8 oz) 09/16/2021 9:49 AM CDT Height 182.9 cm (6') 09/16/2021 9:49 AM CDT Body Mass Index 20.45 09/16/2021 9:49 AM CDT documented in this encounter Ordered Prescriptions Prescription Sig Dispense Quantity Refills Last Filled Start Date End Date losartan (COZAAR) 25 mg tablet Take 1 tablet (25 mg total) by mouth daily 30 tablet 11 09/16/2021 10/25/2021 rivaroxaban (XARELTO) 20 mg tablet Take 1 tablet (20 mg total) by mouth daily 30 tablet 11 09/16/2021 10/20/2022 documented in this encounter Progress Notes * Feliberto Ramey MD - 09/16/2021 9:45 AM CDT Images from the original note were not included. [facility] [place] [address] [address] Cardiology Electrophysiology Ranjan Sauceda, MD Jet Leiva,, MD Brandon Andino, MD Richy Toure, MD Mikey Mc, MD Lawrence Boateng, MD Sin Albright, DO Arturo Leyva, MD Diaz Casillas, MD Keyona Sierra, FRUIT RAISER Feliberto Ramey, MD Naye Parker, MD Edson Young, MD Patrick Alexandra, MD Fernando Navas, DO Elmer Marquez, MD Salvador Lynn, MD Spring Anaya, FRUIT RAISER Denise Srinivasan, FRUIT RAISER Smiley Terrell, FRUIT RAISER Patient Name: Noé Davila Provider: Feliberto Ramey MD : 1935 Date of Service: 09/16/2021 Provider Requesting Consult: Brandon Sandoval MD CHIEF COMPLAINT: Dizziness HISTORY OF PRESENT ILLNESS: 85 y.o. male with a history of chronic atrial fibrillation ([id number]= 4; age, hypertension, peripheral arterial disease). Additional medical problems include a reported history of peripheral arterial disease for which he may have undergone peripheral stenting at [facility] and dementia. He is asking to transfer his care to this practice. In the patient is formally established [facility] and recently moved to be closer to family due to age and debility. He has a history of chronic atrial fibrillation for which he was previouslyon warfarin but this medication was discontinued at the recommendation of his primary care physician due to history of falls. Apparently the patient has stumbled several times. By his description these appear to be mechanical falls although he also reports a history of postural dizziness. He does have a walker available to him but he does not regularly use it. He is not experiencing chest pain. He has chronic exertional dyspnea which he attributes to his prior tobacco use. There is no orthopneaor PND. He is not experiencing palpitations PREVIOUS CARDIOVASCULAR PROCEDURES 1. Echocardiogram (04/2018): Normal left right ventricular systolic function. Mild mitral, tricuspid, and aortic insufficiency. 2. Lexiscan stress Test (04/2018): Ejection fraction 55%. Mild intensity fixed inferobasal and inferoseptal perfusion defect consistent with diaphragmatic attenuation. No reversible defects. ALLERGY Patient has no known allergies. MEDICATIONS Outpatient Encounter Medications as of 09/16/2021 Medication Sig Dispense Refill ??? albuterol HFA (PROVENTIL HFA,VENTOLIN HFA,PROAIR HFA) 90 mcg/actuation inhaler Inhale 2 puffs ??? aspirin 81 mg chewable tablet Take 1 tablet (81 mg total) by mouth nightly 90 tablet 3 ??? atorvastatin (LIPITOR) 20 mg tablet Take 1 tablet (20 mg total) by mouth nightly 90 tablet 3 ??? docusate sodium (COLACE) 50 mg capsule Take by mouth 2 (two) times a day as needed for constipation ??? donepeziL (ARICEPT) 5 mg tablet Take 5 mg by mouth nightly ??? doxazosin (CARDURA) 2 mg tablet Take 1 tablet (2 mg total) by mouth nightly 30 tablet 11 ??? losartan (COZAAR) 25 mg tablet Take 1 tablet (25 mg total) by mouth daily 30 tablet 11 ??? rivaroxaban (XARELTO) 20 mg tablet Take 1 tablet (20 mg total) by mouth daily 30 tablet 11 ??? [DISCONTINUED] amitriptyline (ELAVIL) 10 mg tablet Take 1 tablet (10 mg total) by mouth tablet 11 ??? [DISCONTINUED] rOPINIRole (REQUIP) 0.25 mg tablet Take 1 tablet (0.25 mg total) by mouth 3 (three) times a day For tremors (Patient not taking: Reported on 12/30/2020) 90 tablet 11 No facility-administered encounter medications on file as of 09/16/2021. PAST MEDICAL HISTORY Past Medical History: Diagnosis Date ??? Atrial fibrillation (CMS/HCC) (HCC) ??? COPD (chronic obstructive pulmonary disease) (CMS/HCC) (HCC) FAMILY HISTORY Family History Problem Relation Age of Onset ??? Heart disease Father Heart disease; SOCIAL HISTORY Social History Socioeconomic History ??? Marital status: ??? Number of children: 3 Tobacco Use ??? Smoking status: Former Smoker ??? Smokeless tobacco: Former User Substance and Sexual Activity ??? Alcohol use: Yes ??? Drug use: No ??? Sexual activity: Defer Social Determinants of Health Housing Stability: Low Risk ??? Unable to Pay for Housing in the Last Year: No ??? Number of Places Lived in the Last Year: 2 ??? Unstable Housing in the Last Year: No Review of Systems Constitutional: Negative for chills, [...] Negative for focal weakness. PHYSICAL EXAM: BP 160/88 (BP Location: Right arm, Patient Position: Sitting) Pulse 71 Ht 182.9 cm (6') Wt 68.4 kg (150 lb 12.8 oz) SpO2 96% BMI 20.45 kg/m?? General: Well appearing, No pain or [...] atrial fibrillation (HCC) (Primary) Assessment & Plan: Discussed his annual eyes risk for stroke. Discussed the Watchman procedure but he does not wish topursue that option. He and his daughter also uncomfortable with his stroke risk. We have agreed to resume oral anticoagulant therapy with the understanding that he regularly uses walker and the report any further falls. Plan: Xarelto 20 mg daily. His last BMP was reviewed. Hypertension, essential Assessment & Plan: Blood pressure excessive. Will add a low-dose losartan and titrate as necessary. Peripheral arterial disease (CMS/HCC) (HCC) Assessment & Plan: Details unknown. Continue secondary prevention with aspirin and statin. Other orders - rivaroxaban (XARELTO) 20 mg tablet; Take 1 tablet (20 mg total) by mouth daily - losartan (COZAAR) 25 mg tablet; Take 1 tablet (25 mg total) by mouth daily Return in about 6 months (around 03/19/2022). Feliberto Ramey MD, [facility] documented in this encounter Miscellaneous Notes * Assessment & Plan Note - Feliberto Ramey MD - 09/16/2021 10:27 AM CDT Associated Problem(s): Peripheral arterial disease (HCC) Details unknown. Continue secondary prevention with aspirin and statin. * Assessment & Plan Note - Feliberto Ramey MD - 09/16/2021 10:27 AM CDT Associated Problem(s): Hypertension, essential Blood pressure excessive. Will add a low-dose losartan and titrate as necessary. * Assessment & Plan Note - Feliberto Ramey MD - 09/16/2021 10:25 AM CDT Associated Problem(s): Chronic atrial fibrillation (HCC) Discussed his annual eyes risk for stroke. Discussed the Watchman procedure but he does not wish topursue that option. He and his daughter also uncomfortable with his stroke risk. We have agreed to resume oral anticoagulant therapy with the understanding that he regularly uses walker and the report any further falls. Plan: Xarelto 20 mg daily. His last BMP was reviewed. documented in this encounter Plan of Treatment Not on file documented as of this encounter Visit Diagnoses Diagnosis Chronic atrial fibrillation (HCC)- Primary Atrial fibrillation Hypertension, essential Unspecified essential hypertension Peripheral arterial disease (HCC) Unspecified peripheral vascular disease documented in this encounter Discontinued Medications Medication Sig Discontinue Reason Start Date End Da te rOPINIRole (REQUIP) 0.25 mg tabletIndications:Restle ss Legs Syndrome Take 1 tablet (0.25 mg total) by mouth 3 (three) times a day For tremors Therapy completed 12/09/2020 09/16/2021 amitriptyline (ELAVIL) 10 mg tablet Take 1 tablet (10 mg total) by mouth nightly Therapy completed 12/09/2020 09/16/2021 documented as of this encounter Historical Medications * This list may reflect changes made after this encounter. docusate sodium (COLACE) 50 mg capsuleIndicatio ns:constipation Take by mouth 2 (two) times a day as needed for constipation albuterol HFA (PROVENTIL HFA,VENTOLIN HFA,PROAIR HFA) 90 mcg/actuation inhaler Inhale 2 puffs every 6 (six) hours as needed 07/06/2021 donepeziL (ARICEPT) 5 mg tablet Take 1 tablet (5 mg total) by mouth nightly 08/22/2021 3 added in this encounter Care Teams Braid Pattern Setter Relationship Specialty Start Date End Date Brandon Sandoval MD PCP - General Internal Medicine 09/16/21 10/19/22 documented as of this encounter
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
--- OUTSIDE RECORDS SUMMARY | 2024-07-09 02:17 | XMS_ITS | Encounter Summary ---
Author Organization [facility] Healthcare Address [address] [place] [address] Care Team Providers Care Patent Examiner Name Role Phone Violeta Casillas DO Primary Care Provider + Spring Banerjee RN Unavailable [phone] Nancy Mcgregor [facility] Unavailable [phone] Reason for Referral * Diagnostic Imaging (Routine) - Closed Specialty Diagnoses / Procedures Referred By Contac t Referred To Contact Diagnoses Vertigo Dizziness Procedures Vl US Carotids Villa Esquivel NP [address] [place] [address] Phone: tel: fax: [address] [phone] Referral ID Status Reason Start Date Expiration Date Visits Re quested Visits Authorized [id number] Closed 11/03/2020 12/03/2021 1 1 Reason for Visit * Diagnostic Imaging (Routine) - Closed Specialty Diagnoses / Procedures Referred By Contac t Referred To Contact Diagnoses Vertigo Dizziness Procedures Vl US Carotids Villa Esquivel NP [address] [place] [address] Phone: tel: fax: [address] [phone] Referral ID Status Reason Start Date Expiration Date Visits Re quested Visits Authorized [id number] Closed 11/03/2020 12/03/2021 1 1 Encounter Details Date Type Department Care Team (Latest Contact Info) Description 11/17/2020 8:14 AM CDT - 11/17/2020 11:59 PM CDT Hospital Encounter [facility] [address] [place] [id number] Violeta Casillas, DO [address] [place] [address] Villa Esquivel, REGISTER OF WILLS [address] [place] [address] Vertigo; Dizziness Discharge Disposition: Discharge to home or self care Social History Tobacco Use Types Packs/Day Years [...] often do you attend chur ch or mormon services? Never 05/13/2020 Do you belong to any clubs o r organizations such as religious groups, unions, fraternal or athletic groups, or [...] place to sleep or slept in a chcf (including now)? 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 Gender Identity Not on file Sexual Orientation Not on file documented as of this encounter Medications at Time of Discharge amitriptyline (ELAVIL) 10 mg tablet Take 1 tablet (10 mg total) by mouth nightly 30 tablet 12/10/19 21 aspirin 81 mg chewable tablet Take 1 tablet (81 mg total) by mouth nightly 90 tablet 12/10/19 21 atorvastatin (LIPITOR) 20 mg tabletIndications:Pure hypercholesterolemia Take 1 tablet (20 mg total) by mouth nightly 90 tablet 1 12/10/19 21 doxazosin (CARDURA) 2 mg tabletIndications:hyperte nsion Take 1 tablet (2 mg total) by mouth nightly 30 tablet 1 12/10/19 21 rOPINIRole (REQUIP) 0.25 mg tabletIndications:Restles s Legs Syndrome Take 1 tablet (0.25 mg total) by mouth 3 (three) times a day For tremors 90 tablet 11 12/10/19 21 documented as of this encounter Discharge Disposition Disposition Code Departure Means Destination Discharge to home or self care documented in this encounter Miscellaneous Notes * Result Encounter Note - Violeta Casillas DO - 11/17/2020 11:59 PM CDT No significant occlusion on his US of carotids. There is plaque, but not enough that should be causing problems for him. documented in this encounter Plan of Treatment Not on file documented as of this encounter Procedures Procedure Name Priority Date/Time Associated Diagnosis Comments US CAROTIDS DUPLEX BILATERAL Schedule Routine, Read Routine (OP Routine) 11/17/2020 8:33 AM CDT Vertigo Dizziness documented in this encounter Results * Vl US Carotids (11/17/2020 8:33 AM CDT) Anatomical Region Laterality Modality Vascular Bilateral Ultrasound 11/17/2020 9:30 AM CDT Impressions 11/17/2020 9:30 AM CDT 1. ??No severe stenosis identified. 2. ??Some mildly elevated systolic velocities as described, supporting moderate stenoses in the 50-69% range, as above. 3. ??Antegrade vertebral flow bilaterally. Electronically signed by: Tien Mendoza 11/17/2020 9:30 AM CDT CAROTID ARTERY DUPLEX ULTRASOUND TECHNIQUE: NASCET comparable standard used to assess the degree of arterial stenosis. COMPARISON: None available HISTORY: Dizziness and giddiness FINDINGS: 1. RIGHT EXTRACRANIAL CAROTID ARTERIES ?CCA: 147.1 cm/s systolic, 13.0 cm/s diastolic ?Bulb: 65.0 cm/s systolic, 0.0 cm/s diastolic ?Proximal ICA: 78.8 cm/s systolic, 11.5 cm/s diastolic . ??Mid ICA: 125.4 cm/s systolic, 15.5 cm/s diastolic ?ECA: 123.7 cm/s systolic, 0.0 cm/s diastolic ?Vertebral: Antegrade 2. LEFT EXTRACRANIAL CAROTID ARTERIES ?CCA: 120.4 cm/s systolic, 9.0 cm/s diastolic ?Bulb: 60.7 cm/s systolic, 0.0 cm/s diastolic ?Proximal ICA: 64.4 cm/s systolic, 8.4 cm/s diastolic . ??Distal ICA: 133.4 cm/s systolic, 18.7 cm/s diastolic ?ECA: 125.3 cm/s systolic, 7.4 cm/s diastolic ?Vertebral: Antegrade. Some mild plaque was noted. ??No occlusion identified. ??No definite severe stenosis was evident. ??Mildly elevated systolic velocities for the right mid ICA in the distal left ICA supporting a moderate stenosis in the 50-69% range, likely closer to 50%. Procedure Note Abraham Lima MD - 11/17/2020 CAROTID ARTERY DUPLEX ULTRASOUND TECHNIQUE: NASCET comparable standard used to assess the degree of arterial stenosis. COMPARISON: None available HISTORY: Dizziness and giddiness FINDINGS: 1. RIGHT EXTRACRANIAL CAROTID ARTERIES CCA: 147.1 cm/s systolic, 13.0 cm/s diastolic Bulb: 65.0 cm/s systolic, 0.0 cm/s diastolic Proximal ICA: 78.8 cm/s systolic, 11.5 cm/s diastolic . Mid ICA: 125.4 cm/s systolic, 15.5 cm/s diastolic ECA: 123.7 cm/s systolic, 0.0 cm/s diastolic Vertebral: Antegrade 2. LEFT EXTRACRANIAL CAROTID ARTERIES CCA: 120.4 cm/s systolic, 9.0 cm/s diastolic Bulb: 60.7 cm/s systolic, 0.0 cm/s diastolic Proximal ICA: 64.4 cm/s systolic, 8.4 cm/s diastolic . Distal ICA: 133.4 cm/s systolic, 18.7 cm/s diastolic ECA: 125.3 cm/s systolic, 7.4 cm/s diastolic Vertebral: Antegrade. Some mild plaque was noted. No occlusion identified. No definite severe stenosis was evident. Mildly elevated systolic velocities for the right mid ICA in the distal left ICA supporting a moderate stenosis in the 50-69% range, likely closer to 50%. IMPRESSION: 1. No severe stenosis identified. 2. Some mildly elevated systolic velocities as described, supporting moderate stenoses in the 50-69% range, as above. 3. Antegrade vertebral flow bilaterally. Electronically signed by: Abraham Lima M.D Villa Esquivel [facility] PROCED[facility] Final Resu lt documented in this encounter Visit Diagnoses Diagnosis Vertigo Dizziness and giddiness Dizziness Dizziness and giddiness documented in this encounter Care Teams Patent Examiner Relationship Specialty Start Date End Date Violeta Casillas DO PCP - General 09/29/16 09/15/21 Spring Banerjee RN [address] [place] [address] [address] [place], [place] [id number] Cardiovascular Physician Assistant 05/07/20 12/29/20 Nancy Mcgregor RPh [address] [place] [address] Pharmacist Pharmacy 09/29/20 12/12/20 documented as of this encounter
--- OUTSIDE RECORDS SUMMARY | 2024-07-09 02:17 | XMS_ITS | Encounter Summary ---
Author Organization [facility] Medical Group Address [address] [facility] [address] [place] [address] Care Team Providers Care Underground Conduit Installer Name Role Phone CasillasDiazlexa Dominic Primary Care Provider + Spring Banerjee RN Unavailable [phone] Nancy Mcgregor [facility] Unavailable [phone] Elo Sánchez MICROECONOMICS PROFESSOR Unavailable [phone] Encounter Details Date Type Department Care Team (Late st Contact Info) Description 11/03/2020 9:15 AM CDT Lab [facility] [address] [facility] Warfarin anticoagulation Social History Tobacco Use Types Packs/Day Years [...] often do you attend chur ch or sabianism services? Never 05/13/2020 Do you belong to any clubs o r organizations such as evangelical groups, unions, fraternal or athletic groups, or [...] slept in a correction (including now)? 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 SPRAYER Gender Identity Not on file Sexual Orientation Not on file documented as of this encounter Plan of Treatment Not on file documented as of this encounter Procedures Procedure Name Priority Date/Time Associated Diagnosis Comments POCT INR Routine 11/03/2020 9:00 AM CDT Warfarin anticoagulation documented in this encounter Results * POCT INR (11/03/2020 9:00 AM CDT) INR, POC 1.1 Blood specimen (specimen) (Blood, Venous) 11/03/2020 9:00 AM CDT Violeta Casillas DO POINT OF CARE TEST ORDER ANDREZ Final Result documented in this encounter Visit Diagnoses Diagnosis Warfarin anticoagulation documented in this encounter Care Teams Underground Conduit Installer Relationship Specialty Start Date End Date Vinny Violeta Alfaro DO PCP - General 09/29/16 09/15/21 Spring Banerjee, RN [address] [place] [address] [address] [place], [place] [id number] Pigment Grinder 05/07/20 12/29/20 Nancy Mcgregor, RPlamin [address] [place] [address] [address] [place], [place] [id number] Pharmacist Pharmacy 09/29/20 12/12/20 Elo Sánchez, MICROECONOMICS PROFESSOR [address] [place] [address] [address] [place] [address] Data Review Specialist Surveyor Chain Helper 09/30/20 11/03/20 documented as of this encounter
--- OUTSIDE RECORDS SUMMARY | 2024-07-09 02:17 | XMS_ITS | Encounter Summary ---
Author Organization [facility] Healthcare Address [address] [place] [address] Care Team Providers Care Field Representatives Director Name Role Phone Miller Mcmanus MD Primary Care Provider [phone] Reason for Visit * Reason Onset Date Comments starting coumadin INRs 11/09/2023 Encounter Details Date Type Department Care Team (Late st Contact Info) Description 11/09/2023 Telephone [facility] Medical Group Cardiology [address] [place] [phone] Feliberto Ramey MD [address] [facility] [address] [place] [address] starting coumadin INRs Social History Tobacco Use Types Packs/Day Years [...] often do you attend chur ch or moravian services? Never 05/13/2020 Do you belong to any clubs o r organizations such as synagogue groups, unions, fraternal or athletic groups, or [...] place to sleep or slept in a custodial (including now)? No 12/30/2020 Personal Safety Answer Date Recorded Getting School Help Needed Not on file 07/30 Sex and Gender Information Value Date Recorded Sex Assigned at Not on file Legal Sex Male 3:40 AM MANAGEMENT PROFESSIONAL Gender Identity Not on file Sexual Orientation Not on file documented as of this encounter Miscellaneous Notes * Telephone Encounter - Patrick Dick RN - 11/13/2023 4:13 PM CDT Spoke to pt dtr and Roseanne RITCHIE. Gave initial coumadin education (~40 min). Answered initial questions. Sent script to [facility] in [place]. Sent INR order to [facility]. Home testing monitors require patients to be on coumadin for 90 days before they are eligible for the machine. Pt requested education materials sent to her. Compiled and sent. Started tracker. * Telephone Encounter - Patrick Dick RN - 11/12/2023 1:20 PM CDT Called pt dtr to start coumadin education. LVM. Call back info provided. * Telephone Encounter - Patrick Dick RN - 11/09/2023 3:59 PM CDT Spoke with pt daughter Roseanne- she is pts POA. She is not able to speak about coumadin details today but would like to talk about it Sunday morning (11/11)- I will follow up with her then. Discussed pt with Dr. Ramey. Verbal order to enroll in coumadin clinic. Indication Chronic afib. Range 2-3. Start dose 5mg daily. Indefinite use (or until Xarelto is approved). documented in this encounter Plan of Treatment Not on file documented as of this encounter Visit Diagnoses Not on filedocumented in this encounter Care Teams Field Representatives Director Relationship Specialty Start Date End Date Miller Mcmanus MD [address] [address] PCP - General Family Medicine 10/20/22 documented as of this encounter
--- OUTSIDE RECORDS SUMMARY | 2024-07-09 02:17 | XMS_ITS | Encounter Summary ---
Author Organization [facility] Medical Group Address [address] [facility] [address] [facility] [address] [place] [address] Care Team Providers Care Herbarium Curator Name Role Phone Violeta Casillas DO Primary Care Provider + Spring Banerjee RN Unavailable [phone] Encounter Details Date Type Department Care Team (Late st Contact Info) Description 09/20/2020 Telephone [facility] [address] [place] [address] Brandy Alas, DYLAN [address] [place] [address] Social History Tobacco Use Types Packs/Day Years [...] place to sleep or slept in a mcfp (including now)? 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 This will all be packaged in their [facility] program. He is not to pick any more scripts up at [facility]. Make sure he keeps his appointment with Dr. Casillas this week. Thank you * Telephone Encounter - Kendra Dickerson - 09/20/2020 8:52 AM CDT Pt called and he was seen in office on Sunday last week and he thought medicine was going to be called in for him and pt states there hasn't been any medicine delivered to him and he was just checking status on that and pt needs delivered pt cannot drive at this time documented in this encounter Plan of Treatment Not on file documented as of this encounter Visit Diagnoses Not on filedocumented in this encounter Care Teams Herbarium Curator Relationship Specialty Start Date End Date Violeta Casillas DO PCP - General 09/29/16 09/15/21 Spring Banerjee RN [address] [place] [address] DR [address] [place] [id number] Head Filter Tank Tender Helper 05/07/20 12/29/20 documented as of this encounter
--- OUTSIDE RECORDS SUMMARY | 2024-07-09 02:17 | XMS_ITS | Encounter Summary ---
Author Organization [facility] Medical Group Address [address] [facility] [address] [place] [address] Care Team Providers Care Home Health Aide Caregiver Name Role Phone Violeta Casillas DO Primary Care Provider + Spring Banerjee RN Unavailable [phone] Nancy Mcgregor [facility] Unavailable [phone] El[address] Sánchez [facility] Unavailable [phone] Reason for Visit * Reason Comments Follow-up Encounter Details Date Type Department Care Team (Late st Contact Info) Description 10/12/2020 1:00 PM CDT Office Visit [facility] [address] [place] [address] Violeta Casillas DO [address] [place] [address] Dementia (CMS/HCC) (Primary Dx); Cognitive impairment; Hypertension, essential Social History Tobacco Use Types [...] week 05/13/2020 How often do you attend [facility] or adventism services? Never 05/13/2020 Do you belong to [...] place to sleep or slept in a assisted (including now)? No 09/15/2020 Sex and Gender Information Value Date Recorded Sex Assigned at Not on file Legal Sex Male 3:40 AM CHESTNUT TANNER Gender Identity Not on file Sexual Orientation Not on file documented as of this encounter Last Filed Vital Signs Vital Sign Reading Time Taken Comments Blood Pressure 148/86 10/12/2020 12:57 PM CDT Pulse 82 10/12/2020 12:57 PM CDT Temperature - - Respiratory Rate 16 10/12/2020 12:57 PM CDT Oxygen Saturation 98% 10/12/2020 12:57 PM CDT Inhaled Oxygen Concentration - - Weight 73.1 kg (161 lb 3.2 oz) 10/12/2020 12:57 PM CDT Height 182.9 cm (6' 0.01 ) 10/12/2020 12:57 PM C DT Body Mass Index 21.86 10/12/2020 12:57 PM CDT documented in this encounter Progress Notes * Violeta Casillas, DO - 10/12/2020 1:00 PM CDT Images from the original note were not included. Subjective/Objective Patient ID: Noé Davila is a 84 y.o. male. Chief Complaint Follow-up Vitals: 10/12/20 1257 BP: 148/86 Pulse: 82 Resp: 16 SpO2: 98% Weight: 73.1 kg (161 lb 3.2 oz) Height: 182.9 cm (6' 0.01 ) Body mass index is 21.86 kg/m??. Patient here to fill out paperwork for driving exam. I have reviewed medical, social, and family histories in depth with patient and/or their commercial representative. Review of Systems PHQ Screening Physical [...] visit: Dementia (CMS/HCC) (Primary) Assessment & Plan: Drivers form filled out today and I recommended against him driving anymore. My total encounter time on 10/12/2020 was 25 minutes which was spent in the activities documented in the note. This includes time spent prior to the visit and after the visit in direct care of the patient. This time does not include time spent in any separately reportable services. Cognitive impairment Hypertension, essential Assessment & Plan: Chronic & stable on meds. Continue current treatment. BMI Follow-up includes: education provided. No orders [...] Casillas DO This note was dictated using Last Guide voice recognition software. Variances in spelling and vocabulary are possible and errors are unintentional. documented in this encounter Miscellaneous Notes * Assessment & Plan Note - Violeta Casillas DO - 10/12/2020 11:20 PM CDT Associated Problem(s): Hypertension, essential Chronic & stable on meds. Continue current treatment. * Assessment & Plan Note - Violeta Casillas DO - 10/12/2020 11:16 PM CDT Associated Problem(s): Dementia (HCC) Drivers form filled out today and I recommended against him driving anymore. My total encounter time on 10/12/2020 was 25 minutes which was spent in the activities documented in the note. This includes time spent prior to the visit and after the visit in direct care of the patient. This time does not include time spent in any separately reportable services. documented in this encounter Plan of Treatment Not on file documented as of this encounter Visit Diagnoses Diagnosis Dementia (HCC)- Primary Other persistent mental disorders due to conditions classified elsewhere Cognitive impairment Unspecified persistent mental disorders due to conditions classified elsewhere Hypertension, essential Unspecified essential hypertension documented in this encounter Care Teams Home Health Aide Caregiver Relationship Specialty Start Date End Date Violeta Casillas DO PCP - General 09/29/16 09/15/21 Spring Banerjee, RN [address] [place] [address] [address] [place] [address] Roller Turner 05/07/20 12/29/20 Nancy Mcgregor RPh [address] [place] [address] [address] [place] [address] Pharmacist Pharmacy 09/29/20 12/12/20 Elo Sánchez, [address] [place] [address] Precision Lathe Operator Electromechanical Equipment Assembler 09/30/20 11/03/20 documented as of this encounter
--- OUTSIDE RECORDS SUMMARY | 2024-07-09 02:17 | XMS_ITS | Encounter Summary ---
Author Organization [facility] Medical Group Address [address] [place] [address] Care Team Providers Care Water Conservationist Name Role Phone Violeta Casillas Primary Care Provider + Spring Banerjee RN Unavailable [phone] Nancy Mcgregor [facility] Unavailable [phone] El[address] Sánchez [facility] Unavailable Reason for Visit * Reason Comments Chart Review New Med List Encounter Details Date Type Department Care Team (Late st Contact Info) Description 10/26/2020 [facility] Clinical Pharmacist Chart Review [facility] Accountable Care Organization [address] [place] [address] Nancy Mcgregor, [facility] [address] [facility] [address] [place] [address] Social History Tobacco Use Types Packs/Day Years [...] often do you attend chur ch or congregation services? 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 [facility] Clinical Pharmacist Chart Review Pertinent Subjective/Objective: Patient was referred by [facility] Care Mgmt hat steamer; referral reason: medication adherence. PCP approved recommendation for initiation of aspirin 81mg daily upon discontinuation of warfarin. Created new med list. Mailed to patient. Follow-up: with this auto service writer via telephone as warranted The visit was approximately 15 minutes in duration, all of which was via chart review. The patient was not contacted during this encounter. Emani Busch PharmD Clinical Pharmacist [facility] Medical Group ([facility]) & [facility] This note was created using voice recognition software. Grammatical and spelling errors may exist. If you have any questions or concerns please contact me. documented in this encounter Plan of Treatment Not on file documented as of this encounter Visit Diagnoses Not on filedocumented in this encounter Care Teams Water Conservationist Relationship Specialty Start Date End Date Violeta Casillas DO PCP - General 09/29/16 09/15/21 Spring Banerjee RN [address] [place] [address] [address] [place], [place] [id number] Social Studies Department Chair 05/07/20 12/29/20 Nancy Mcgregor RPh [address] [place] [address] [address] [place] [address] Pharmacist Pharmacy 09/29/20 12/12/20 Elo Sánchez, TOWER TRUCK DRIVER[address] [place] [address] Oss Architect Laborer Powerhouse 09/30/20 11/03/20 documented as of this encounter
--- OUTSIDE RECORDS SUMMARY | 2024-07-09 02:17 | XMS_ITS | Encounter Summary ---
Author Organization [facility] Medical Group Address [address] [facility] [address] [place] [address] Care Team Providers Care Livestock Broker Name Role Phone Miller Mcmanus MD Primary Care Provider [phone] Reason for Visit * Reason Comments Atrial Fibrillation Encounter Details Date Type Department Care Team (Late st Contact Info) Description 10/20/2022 2:15 PM CDT Office Visit [facility] Medical [facility] Cardiology [address] [facility] [address] [place] [address] Feliberto Ramey MD [address] [facility] [address] [place] [address] Chronic atrial fibrillation (HCC) (Primary Dx); Peripheral arterial disease (HCC); Pure hypercholesterolemia Social History Tobacco Use Types Packs/Day Years [...] often do you attend chur ch or jew services? Never 05/13/2020 Do you belong to any clubs o r organizations such as scientologist groups, unions, fraternal or athletic groups, or [...] on file Legal Sex Male 3:40 AM PRODUCT ADVISOR Gender Identity Not on file Sexual Orientation Not on file documented as of this encounter Last Filed Vital Signs Vital Sign Reading Time Taken Comments Blood Pressure 138/76 10/20/2022 2:30 PM CDT Pulse 60 10/20/2022 2:30 PM CDT Temperature - - Respiratory Rate - - Oxygen Saturation 96% 10/20/2022 2:30 PM CDT Inhaled Oxygen Concentration - - Weight 68.4 kg (150 lb 12.8 oz) 10/20/2022 2:30 PM CDT Height 182.9 cm (6') 10/20/2022 2:30 PM CDT Body Mass Index 20.45 10/20/2022 2:30 PM CDT documented in this encounter Progress Notes * Feliberto Ramey MD - 10/20/2022 2:15 PM CDT Images from the original note were not included. [facility] [place] [address] [address] Cardiology Electrophysiology Ranjan Sauceda, MD Jet Leiva,, MD Brandon Andino, MD Lawrence Boateng, MD Mikey Mc, MD Arturo Leyva, MD Jose M Barker, MD Daiz Casillas, MD Keyona Sierra, HOUSEHOLD APPLIANCES SALESPERSON Feliberto Ramey, MD Edson Young, MD Patrick Alexandra, MD Fernando Navas, DO Elmer Marquez, MD Salvador Lynn, MD Kyrie Zarate, HOUSEHOLD APPLIANCES SALESPERSON Charlette Pace, HOUSEHOLD APPLIANCES SALESPERSON Denise Srinivasan, HOUSEHOLD APPLIANCES SALESPERSON Smiley Terrell, HOUSEHOLD APPLIANCES SALESPERSON Patient Name: Noé Davila Provider: Feliberto Ramey MD : [id number] Date of Service: 10/20/2022 Provider Requesting Consult: Brandon Sandoval MD CHIEF COMPLAINT: Atrial Fibrillation HISTORY OF PRESENT ILLNESS: 86 y.o. male with a history of chronic atrial fibrillation ([id number]= 4; age, hypertension, peripheral arterial disease). Additional medical problems include a reported history of peripheral arterial disease for which he may have undergone peripheral stenting at [facility] and dementia. He reports he is doing well. He has sporadic lightheadedness which he thinks may be due to 1 of hismedications. These episodes occur 4-5 times per year. He denies chest pain or dyspnea. He denies orthopnea or PND and there have been no palpitations. PREVIOUS CARDIOVASCULAR PROCEDURES 1. Echocardiogram (04/2018): Normal left right ventricular systolic function. Mild mitral, tricuspid, and aortic insufficiency. 2. Lexiscan stress Test (04/2018): Ejection fraction 55%. Mild intensity fixed inferobasal and inferoseptal perfusion defect consistent with diaphragmatic attenuation. No reversible defects. ALLERGY Patient has no known allergies. MEDICATIONS Outpatient Encounter Medications as of 10/20/2022 Medication Sig Dispense Refill albuterol HFA (PROVENTIL [...] (COZAAR) 50 mg tablet Take 1 tablet (50 mg total) by mouth daily 30 tablet 11 nitroglycerin (NITROSTAT) 0.[address] 1 tablet (0.4 mg total) under the tongue every 5 (five) minutes as needed for chest pain May repeat dose q 5 min, up to 3 doses total (Patient not taking: Reported on 10/20/2022) 90 tablet 1 [DISCONTINUED] donepeziL (ARICEPT) 5 mg tablet Take 1 tablet (5 mg total) by mouth nightly (Patientnot taking: Reported on 10/20/2022) [DISCONTINUED] rivaroxaban (XARELTO) 20 mg tablet Take 1 tablet (20 mg total) by mouth daily (Patient not taking: Reported on 10/20/2022) 30 tablet 11 No facility-administered encounter medications on file as of 10/20/2022. Review of Systems Constitutional: Negative for chills, [...] Negative for focal weakness. PHYSICAL EXAM: BP 138/76 (BP Location: Right arm, Patient Position: Sitting) Pulse 60 Ht 182.9 cm (6') Wt 68.4 kg [...] atrial fibrillation (HCC) (Primary) Assessment & Plan: Rate controlled. He stopped oral anticoagulant therapy due to cost. I have provided his daughter with a list of alternatives to Xarelto and she will review this with his pharmacist and get back to uswith a cost appropriate alternative. Peripheral arterial disease (HCC) Assessment & Plan: Doing reasonably well. Continue aspirin and statin. Orders: - POCT lipid panel Pure hypercholesterolemia Assessment & Plan: Well controlled. LDL today is 66 mg/dL. Continue Lipitor. Orders: - POCT lipid panel Return in about 1 year (around 10/21/2023). Feliberto Ramey MD, [facility] documented in this encounter Miscellaneous Notes * Assessment & Plan Note - Feliberto Ramey MD - 10/20/2022 3:24 PM CDT Associated Problem(s): Pure hypercholesterolemia Well controlled. LDL today is 66 mg/dL. Continue Lipitor. * Assessment & Plan Note - Feliberto Ramey MD - 10/20/2022 3:23 PM CDT Associated Problem(s): Peripheral arterial disease (HCC) Doing reasonably well. Continue aspirin and statin. * Assessment & Plan Note - Feliberto Ramey MD - 10/20/2022 3:23 PM CDT Associated Problem(s): Chronic atrial fibrillation (HCC) Rate controlled. He stopped oral anticoagulant therapy due to cost. I have provided his daughter with a list of alternatives to Xarelto and she will review this with his pharmacist and get back to uswith a cost appropriate alternative. documented in this encounter Plan of Treatment Not on file documented as of this encounter Procedures Procedure Name Priority Date/Time Associated Diagnosis Comments POCT LIPID PANEL Routine 10/20/2022 2:12 PM CDT Peripheral arterial disease (HCC) Pure hypercholesterolemia documented in this encounter Results * POCT lipid panel (10/20/2022 2:12 PM CDT) Cholesterol, POC 151 mg/dL HDL, POC 69 mg/dL Triglycerides, POC 78 mg/dL LDL Cholesterol POC 66 mg/dL Chol/HDL Ratio, POC 2.2 Non-HDL Cholesterol, POC 82 mg/dL Cholesterol Total, POC 151 mg/dL Capillary blood 10/20/2022 2 :12 PM CDT us Feliberto Ramey MD POINT OF CARE TEST ORD ERABLES Edited Result - Final documented in this encounter Visit Diagnoses Diagnosis Chronic atrial fibrillation (HCC)- Primary Atrial fibrillation Peripheral arterial disease (HCC) Unspecified peripheral vascular disease Pure hypercholesterolemia documented in this encounter Discontinued Medications Medication Sig Discontinue Reason Start Date End Da te donepeziL (ARICEPT) 5 mg tablet Take 1 tablet (5 mg total) by mouth nightly 08/22/2021 10/20/2022 rivaroxaban (XARELTO) 20 mg tablet Take 1 tablet (20 mg total) by mouth daily 09/16/2021 10/20/2022 documented as of this encounter Care Teams Livestock Broker Relationship Specialty Start Date End Date Miller Mcmanus MD [address] [address] PCP - General Family Medicine 10/20/22 documented as of this encounter
--- OUTSIDE RECORDS SUMMARY | 2024-07-09 02:17 | XMS_ITS | Encounter Summary ---
Author Organization [facility] Address [address] [place] [address] Care Team Providers Care Scale Mechanic Name Role Phone Violeta Casillas Primary Care Provider + Spring Banerjee RN Unavailable [phone] Nancy Mcgregor [facility] Unavailable [phone] Reason for Visit * Reason Comments Med Management Encounter Details Date Type Department Care Team (Late st Contact Info) Description 09/29/2020 ACO Clinical Pharmacist [facility] Accountable Care Organization [address] [place] [address] Nancy Mcgregor, [facility] [address] [place] [address] Social History Tobacco Use Types Packs/Day Years [...] often do you attend chur ch or zoroastrianism services? Never 05/13/2020 Do you belong to any clubs o r organizations such as confucianist groups, unions, fraternal or athletic groups, or [...] slept in a usp (including now)? No 09/15/2020 Sex and Gender Information Value Date Recorded Sex Assigned at Not on file Legal Sex Male 3:40 AM CLAIMS INVESTIGATOR Gender Identity Not on file Sexual Orientation Not on file documented as of this encounter Miscellaneous Notes * Telephone Encounter - Nancy Busch RPh - 09/29/2020 3:47 PM CDT ACO Clinical Pharmacist Outreach Pertinent Subjective/Objective: Patient was referred by ACO Care Mgmt boarder steam; referral reason: medication adherence and cost of medication consult. Called patient's pharmacy ([facility]). Patient does not have prescription coverage. Therefore, despite only generics prescribed, medications are still expensive. Patient would benefit fromspeaking with social services coordinator to discuss possible qualification of Medicaid, prescription benefits, and other resources. Patient was previously filling medications at [facility] and reportedly able to afford medications. Appears then patient switched to [facility] for pill packing but prices are a little bit more expensive. Patient told [facility] that he does not want to fill with them dueto higher cost and wants to switch everything back to [facility]. Medications were returned to [facility] and refund to patient was granted. Uncertain if medications were transferred back to [facility]. [facility] has many resources available for patient. Including pill packing and also script talk. Script talk is a machine that is able to scan a bar code on a patient's medication bottle and read off everything to patient which would be very helpful as patient has trouble reading. Of note, medication indication would need to be in directions if reason for taking medication included in talking. Patient reportedly told pharmacy that he already has a script talk machine but refuses to use. Assessment: #1 Health literacy ??? Medication therapy problem: cost and medication procurement ??? Patient does not have medication insurance. [facility] pharmacy will have better [place]ano is but they do not have additional resources like pill packing or script talk like [facility] provides. ??? Personally, script ox sounds like a great resource for patient but medication cost would be higher and patient has previously declined use of script talk. ??? Pharmacy could consider creating individualized medication calendar with pictures instead of words for patient however would not be able to add picture of pills dispensed without speaking with pharmacy to get exact director of product marketing dispensed. ??? Overall, patient would likely benefit from social work. Referral placed to [facility] social work for assessment of additional resources patient may qualify for. Follow-up: with this publications writer via telephone in approximately 7 day(s) for check in. The visit was approximately 20 minutes in duration, all of which was via telephone. The patient wasnot contacted during this encounter. Emani Busch, PharmD Clinical Pharmacist [facility] ([facility] & [facility] This note was created using voice recognition software. Grammatical and spelling errors may exist. If you have any questions or concerns please contact me. documented in this encounter Plan of Treatment Not on file documented as of this encounter Visit Diagnoses Not on filedocumented in this encounter Care Teams Scale Mechanic Relationship Specialty Start Date End Date Vinny Violeta Alfaro PCP - General 09/29/16 09/15/21 Spring Banerjee RN [address] [place] [address] [address] [place] [address] Motor Equipment Commanding Officer 05/07/20 12/29/20 Nancy Mcgregor RPh [address] [place] [address] [address] [place] [address] Pharmacist Pharmacy 09/29/20 12/12/20 documented as of this encounter
--- OUTSIDE RECORDS SUMMARY | 2024-07-09 02:17 | XMS_ITS | Referral Summary ---
Author Organization [facility] er Address [address] [place] [id number] Care Team Providers Care Senior Windows Engineer Name Role Phone Miller Mcmanus MD Primary Care Provider [phone] Encounters Date Type Department Care Team Description 06/26/2024 Telephone [facility] Cardiology [address] [place] [address] Feliberto Ramey MD INR from Last 3 Months Allergies No known active allergies Medications aspirin 81 mg chewable tablet Take 1 tablet (81 mg total) by mouth nightly 90 tablet 3 Active atorvastatin (LIPITOR) 20 mg tabletIndications:Pure hypercholesterolemia Take 1 tablet (20 mg total) by mouth nightly 90 tablet 3 Active albuterol HFA (PROVENTIL HFA,VENTOLIN HFA,PROAIR HFA) [...] Active Problems Problem Noted Date Diagnosed Date retirement (current) use of anticoagulants 2023 Peripheral arterial [...] (09/21/2020 11:17 AM CDT): Will fill out tilt tray driver form as I don't feel patient [...] ordered Assessment & Plan (07/28/2020 9:42 AM WIRE MESH GATE ASSEMBLER): Likely related to uncontrolled allergies, though not [...] others. Assessment & Plan (05/06/2020 11:31 PM WIRE MESH GATE ASSEMBLER): Unsure exact cause. Depression vs nutrition vs dehydration vs possible parkinsons?? Consult ACO He is recently less than 2 years ago. No family or friend support. Probable poor nutrition. Difficulty getting him to take meds as intended. Frequent falls 05/06/2020 Assessment & Plan (11/03/2020 12:12 PM CDT): Pt refuses cane or walker for ambulation. Assessment & Plan (05/06/2020 11:40 PM WIRE MESH GATE ASSEMBLER): Refuses neuro or PT consult. I think he falls more from flexing his neck versus position changes, stumbling, or orthostasis. During the office visit that took at least 40 minutes, I spent over 50% of the time either counseling, educating, discussing plan of treatment, or answering questions today. Tremor, unspecified 05/06/2020 Assessment & Plan (05/06/2020 11:33 PM WIRE MESH GATE ASSEMBLER): Refuses consult with neuro or anything that might cost him money. Trial Requip (ropinirole) 0.25mg tid. Consult ACO Illiteracy 05/06/2020 Weight loss 01/26/2020 Assessment & Plan (07/28/2020 7:23 PM WIRE MESH GATE ASSEMBLER): Stable with Mirtazapine. Will increase the Mirtazapine to 30mg today. Assessment & Plan (05/06/2020 11:37 PM WIRE MESH GATE ASSEMBLER): Possible improvement with Mirtazapine (if he is [...] 8:55 AM CDT): Will refill Cardura to [facility] program. Hopefully this will allow patient to easy to access his medications. Will also order home health for social work and nursing services. With his blood pressure a elevated he likely needs a nurse to check this and assist him with medications. He is not cognitively aware enough to do this himself. Assessment & Plan (07/28/2020 7:26 PM WIRE MESH GATE ASSEMBLER): Will increase the doxazosin from 1 mg [...] readings. Assessment & Plan (07/28/2019 11:16 PM WIRE MESH GATE ASSEMBLER): New diagnosis. Start doxazosin (Cardura) for combined benefit of HTN and BPH. Call back with update in 2-3 weeks and blood pressure readings if possible. Chronic rhinitis 07/28/2019 Assessment & Plan (07/28/2019 11:20 PM WIRE MESH GATE ASSEMBLER): Start Flonase (fluticasone). Demonstrated use. Hearing difficulty of both ears 12/18/2018 Assessment & Plan (07/28/2020 7:45 PM WIRE MESH GATE ASSEMBLER): Tried to clean out ears today. Assessment & Plan (01/26/2020 11:12 AM CDT): Did not go to audiology due to cost. Assessment & Plan (12/18/2018 9:24 PM CDT): Audiology consult. 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 LDL is controlled well. Prediabetes 06/18/2017 Assessment & Plan (07/28/2020 7:21 PM WIRE MESH GATE ASSEMBLER): Will check new labs and make adjustments if needed. Assessment & Plan (01/26/2020 11:07 AM CDT): Will recheck fasting glucose today. Assessment & Plan (07/28/2019 11:16 PM WIRE MESH GATE ASSEMBLER): Get new labs Assessment & Plan (12/18/2018 9:23 PM CDT): Lower carb diet recommended. Assessment & Plan (06/18/2017 1:26 PM WIRE MESH GATE ASSEMBLER): Please cut down on sweets. Chronic idiopathic constipation 12/13/2016 Assessment & Plan (07/28/2020 7:21 PM WIRE MESH GATE ASSEMBLER): Chronic & stable on meds. Continue current [...] Lipitor. Assessment & Plan (07/28/2020 7:43 PM WIRE MESH GATE ASSEMBLER): Chronic & stable on meds. Continue current treatment. Assessment & Plan (01/26/2020 11:06 AM CDT): Stop rosuvastatin and start atorvastatin 20mg due to cost. Check labs today. Assessment & Plan (07/28/2019 11:20 PM WIRE MESH GATE ASSEMBLER): Get updated labs soon. Assessment & Plan (12/18/2018 9:23 PM CDT): Chronic & stable on meds. Continue current treatment. Assessment & Plan (06/18/2018 2:20 PM WIRE MESH GATE ASSEMBLER): Chronic & stable on meds. Continue current treatment. Assessment & Plan (03/29/2018 1:48 PM CDT): LDL was 69 on 12/10/2017. Continue Mevacor treatment Assessment & Plan (12/17/2017 9:41 PM CDT): Chronic & stable on meds. Continue current treatment. Assessment & Plan (06/18/2017 1:26 PM WIRE MESH GATE ASSEMBLER): Chronic & stable on meds. Continue current [...] draws. Assessment & Plan (06/18/2018 2:20 PM WIRE MESH GATE ASSEMBLER): Chronic & stable on meds. Continue current [...] INR Assessment & Plan (06/18/2017 1:27 PM WIRE MESH GATE ASSEMBLER): Chronic & stable on meds. Continue current [...] pharmacy Assessment & Plan (07/28/2020 7:38 PM WIRE MESH GATE ASSEMBLER): Increase the Mirtazapine to 30mg daily and stop the Amitriptyline 10 mg daily, especially since he has constipation. Assessment & Plan (05/06/2020 11:37 PM WIRE MESH GATE ASSEMBLER): Patient symptomatic and not sure if he [...] treatment. Assessment & Plan (06/18/2018 2:20 PM WIRE MESH GATE ASSEMBLER): Chronic & stable on meds. Continue current treatment. Assessment & Plan (06/18/2017 1:26 PM WIRE MESH GATE ASSEMBLER): Chronic & stable on meds. Continue current treatment. Assessment & Plan (12/13/2016 3:05 PM CDT): Doing well with current treatment program and medications. No changes today Chronic obstructive pulmonary disease 02/15/2015 Assessment & Plan (07/28/2020 7:42 PM WIRE MESH GATE ASSEMBLER): Stable with out prescription medication. He feels [...] treatment. Assessment & Plan (06/18/2018 2:20 PM WIRE MESH GATE ASSEMBLER): Stable without regular use of inhalers. Assessment [...] medication(s) Assessment & Plan (07/28/2020 7:41 PM WIRE MESH GATE ASSEMBLER): Increase the doxazosin from 1 mg to 2 mg. Assessment & Plan (01/26/2020 11:09 AM CDT): Patient only took the doxazosin a couple times. Stop completely due to not taking it regularly and some lightheadedness when standing. Assessment & Plan (07/28/2019 11:16 PM WIRE MESH GATE ASSEMBLER): Start doxazosin (Cardura). Patient opted out of getting PSA testing at this time. Resolved Problems Problem Noted Date Diagnosed Date Resolved Date Late onset Alzheimer's disea se without behavioral disturbance 09/20/2020 09/20/2020 Bilateral impacted cerumen 07/28/2020 0 09/17/2020 Assessment & Plan (07/28/2020 7:22 PM WIRE MESH GATE ASSEMBLER): Ear irrigation today. Encounter for Medicare annual [...] 12/18/19 Assessment & Plan (06/18/2017 1:20 PM WIRE MESH GATE ASSEMBLER): These look like a type of squamous [...] zoster 02/15/2015 12/13/2016 Overview (10/07/2016): Herpes zoster Immunizations Name Administration Dates Next Due Influenza, Quadrivalent, Hig h Dose, Preservative Free, Intrr 04/29/2022,06/29/2021,05/06/2020 Influenza, Trivalent, High D ose, Split, Preservative Free, Intramuscular 04/11/2019,03/29/2018,06/18/2017,06/02 Influenza, Trivalent, Preser vative Free, Intramuscular 05/25/2014 Pneumococcal Conjugate PCV 13 12/18/2018 Pneumococcal Polysaccharide PPV23 01/26/2020 Tdap 01/15/2022,12/13/2019 Social History Tobacco Use Types Packs/Day Years [...] any clubs o r organizations such as lutheran groups, unions, fraternal or athletic groups, or [...] in a senior care (including now)? No 12/30/2020 Personal Safety Answer Date Recorded Getting School Help Needed Not on file 07/30 Sex and Gender Information Value Date Recorded Sex Assigned at Not on file Legal Sex Male 3:40 AM WIRE MESH GATE ASSEMBLER Gender Identity Not on file Sexual Orientation [...] 10/26/2023 9:28 AM CDT Plan of Treatment Not on file Insurance MEDICARE MEDICARE MEDICARE MEDICARE MEDICARE Advance Directives For more information, please contact: [phone] Documents on File Type Date Recorded Patient Telecom Network Manager Expl anation ADVANCE DIRECTIVE 09/16/2021 9:00 AM Power of Funeral Director/Embalmer/Owner-Medical ADVANCE DIRECTIVE 06/23/2021 4:03 PM Annabel r of Funeral Director/Embalmer/Owner-Medical ADVANCE DIRECTIVE 03/05/2019 10:13 AM POWER OF FAMILY LAW MEDIATOR-MEDICAL ADVANCE DIRECTIVE 03/04/2019 2:22 PM POWER OF FAMILY LAW MEDIATOR-MEDICAL Care Teams Senior Windows Engineer Relationship Specialty Start Date End Date Miller Mcmanus MD [address] [address] PCP - General Family Medicine 10/20/22
--- OUTSIDE RECORDS SUMMARY | 2024-07-09 02:17 | XMS_ITS | Encounter Summary ---
Author Organization [facility] Address [address] [place] [address] Care Team Providers Care Woodwind Instrument Repairer Name Role Phone Violeta Casillas Primary Care Provider + Spring Banerjee RN Unavailable [phone] Nancy Mcgregor [facility] Unavailable [phone] Elo Sánchez [facility] Unavailable [phone] Reason for Visit * Reason Onset Date Comments Case Management- Medication 10/01/2020 Encounter Details Date Type Department Care Team (Late st Contact Info) Description 10/01/2020 Telephone [facility] [address] [place] [address] Spring Banerjee, TIFFANY [address] [place] [address] Case Management- Medication Social History Tobacco Use Types Packs/Day Years [...] week 05/13/2020 How often do you attend [facility] or latter-day services? Never 05/13/2020 Do you belong to any clubs o r organizations such as voodoo groups, unions, fraternal or athletic groups, or [...] on file Legal Sex Male 3:40 AM TOUR DRIVER Gender Identity Not on file Sexual Orientation Not on file documented as of this encounter Miscellaneous Notes * Telephone Encounter - Violeta Casillas DO - 10/01/2020 2:09 PM CDT I think contact [facility] is best way to go at this point. * Telephone Encounter - Ruth Hankins LPN - 10/01/2020 2:06 PM CDT The only problem I foresee with him coming in to the office to fill med event planner is transportation. He's been told not to drive and he may not have a way to get here. * Telephone Encounter - Violeta Casillas DO - 10/01/2020 9:39 AM CDT Thanks for info. I'll have my nurse Ruth reach out and see about setting weekly meds up. Not ideal,but thinking outside the box for sure. * Telephone Encounter - Spring Banerjee RN - 10/01/2020 8:[address] Casillas, This ACO patient continues to struggle with medication adherence. Our ACO team including pharmacist, nursing, social work, and leadership have collaborated to find solutions that will work for this illiterate patient. Solutions that thave been trailed: 1) He will not use pill packs or a Script Talk machine; both have been provided to him. 2) He is not agreeable to providing his payment information to any remote pharmacies that can provide additional services. 3) Home Health Nursing will not continue remote computer terminal operator as this is not considered a skilled need. 4) He does not qualify for financial assistance. Remaining options we have identified: 1) Can this patient come to your office to have his pill box set up? 3) Please see ACO PharmD's note including a photo med organization list. 2) Reporting him to the Department of Health and Senior Services for self neglect. -- this will be done today. Please let us know what more we can do to assist in the care of this complex patient, Spring HAQUE RN [facility] - ACO Sales And Service Engineer [phone] documented in this encounter Plan of Treatment Not on file documented as of this encounter Visit Diagnoses Not on filedocumented in this encounter Care Teams Woodwind Instrument Repairer Relationship Specialty Start Date End Date Violeta Casillas DO PCP - General 09/29/16 09/15/21 Spring Banerjee, RN [address] [place] [address] [address] [place] [address] Sales And Service Engineer 05/07/20 12/29/20 Nancy Mcgregor [address] [place] [address] Pharmacist Pharmacy 09/29/20 12/12/20 Elo Sánchez, [address] [place] [address] Lightning Rod Erector Unix Analyst 09/30/20 11/03/20 documented as of this encounter
--- OUTSIDE RECORDS SUMMARY | 2024-07-09 02:17 | XMS_ITS | Encounter Summary ---
Author Organization [facility] Medical Group Address [address] [facility] [address] [place] [address] Care Team Providers Care Scrap Iron Loader Name Role Phone VinnyDiazlexa Dominic Primary Care Provider + Spring Banerjee RN Unavailable [phone] Nancy Mcgregor [facility] Unavailable [phone] Elo Sánchez [facility] Unavailable [phone] Reason for Referral * Diagnostic Imaging (Routine) - Closed Specialty Diagnoses / Procedures Referred By Contsylvester t Referred To Contact Diagnoses Vertigo Dizziness Procedures Vl US Carotids Villa Esquivel NP [address] [place] [address] Phone: tel: fax: [address] [phone] Referral ID Status Reason Start Date Expiration Date Visits Re quested Visits Authorized [id number] Closed 11/03/2020 12/03/2021 1 1 Reason for Visit * Reason Comments Review Medications Dizziness x 1mth, states start ed after meds changed Encounter Details Date Type Department Care Team (Late st Contact Info) Description 11/03/2020 9:15 AM CDT [facility] [address] [place] [phone] [place] [address] [place] [address] Vertigo (Primary Dx); Dementia (CMS/HCC); Pure hypercholesterolemia; Hypertension, essential; Benign prostatic hyperplasia with urinary hesitancy; Dizziness; Frequent falls; Chronic atrial fibrillation (CMS/HCC) Social History Tobacco Use Types Packs/Day Years [...] any clubs o r organizations such as oriental orthodox groups, unions, fraternal or athletic groups, or [...] on file 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 Gender Identity Not on file Sexual Orientation Not on file documented as of this encounter Last Filed Vital Signs Vital Sign Reading Time Taken Comments Blood Pressure 166/96 11/03/2020 9:16 AM CDT Pulse 62 11/03/2020 9:16 AM CDT Temperature - - Respiratory Rate 18 11/03/2020 9:16 AM CDT Oxygen Saturation 94% 11/03/2020 9:16 AM CDT Inhaled Oxygen Concentration - - Weight 71.9 kg (158 lb 9.6 oz) 11/03/2020 9:16 A M CDT Height 182.9 cm (6') 11/03/2020 9:16 AM CDT Body Mass Index 21.51 11/03/2020 9:16 AM CDT documented in this encounter Ordered Prescriptions Prescription Sig Dispense Quantity Refills Last Filled Start Date End Date rOPINIRole (REQUIP) 0.25 mg tabletIndications:Restles s Legs Syndrome Take 1 tablet (0.25 mg total) by mouth 3 (three) times a day For tremors 90 tablet 11 12/10/19 21 doxazosin (CARDURA) 2 mg tabletIndications:hyperte nsion Take 1 tablet (2 mg total) by mouth nightly 30 tablet 11 12/10/19 21 atorvastatin (LIPITOR) 20 mg tabletIndications:Pure hypercholesterolemia Take 1 tablet (20 mg total) by mouth nightly 90 tablet 3 1 12/10/19 21 amitriptyline (ELAVIL) 10 mg tablet Take 1 tablet (10 mg total) by mouth nightly 30 tablet 11 12/10/19 21 aspirin 81 mg chewable tablet Take 1 tablet (81 mg total) by mouth nightly 90 tablet 3 1 12/10/19 21 documented in this encounter Progress Notes * Villa Esquivel NP - 11/03/2020 9:15 AM CDT Subjective/Objective Patient ID: Noé Davila is a 84 y.o. male. Chief Complaint Review Medications and Dizziness (x 1mth, states started after meds changed) Vitals: 11/03/20 0916 BP: 166/96 Pulse: 62 Resp: 18 SpO2: 94% Weight: 71.9 kg (158 lb 9.6 oz) Height: 182.9 cm (6') Body mass index is 21.51 kg/m??. Noé here today to go over medications. Warafrin DC'd a few months ago. Pt has been continuing totake the medication. Pt does not know the year or month. Pt brought himself to the PCP office today. I have reviewed medical, social, and family histories in depth with patient and/or their escrow representative. Review of Systems Constitutional: Negative for activity change, appetite change and fatigue. HENT: Negative for congestion and rhinorrhea. Eyes: Negative for pain and discharge. Respiratory: Negative for apnea and shortness of breath. Cardiovascular: Negative for chest pain, palpitations and leg swelling. Gastrointestinal: Negative for abdominal distention, abdominal pain, constipation and diarrhea. Endocrine: Negative for cold intolerance. Genitourinary: Negative for difficulty urinating and dysuria. Musculoskeletal: Negative for back pain, joint swelling and neck stiffness. Skin: Negative for rash. Neurological: Positive for dizziness. Negative for weakness and headaches. Hematological: Does not bruise/bleed easily. Psychiatric/Behavioral: Positive for confusion. Negative for self-injury and suicidal ideas. PHQ Screening PHQ-2 Total Score (If total score is 3 or more points, staff should administer the PHQ-9): 0 Physical Exam Vitals reviewed. Constitutional: Appearance: He is well-developed. HENT: Head: Normocephalic and atraumatic. Right Ear: Tympanic membrane and external ear normal. Left Ear: Tympanic membrane and external ear normal. Nose: Nose normal. No nasal tenderness, congestion or rhinorrhea. Right Sinus: No maxillary sinus tenderness or frontal sinus tenderness. Left Sinus: No maxillary sinus tenderness or frontal sinus tenderness. Mouth/Throat: Lips: Burna. Mouth: Mucous membranes are moist. Pharynx: Oropharynx is clear. Eyes: General: Lids are normal. Vision grossly intact. Extraocular Movements: Extraocular movements intact. Conjunctiva/sclera: Conjunctivae normal. Pupils: Pupils are equal, round, and reactive to light. Neck: Trachea: Trachea normal. Cardiovascular: Rate and Rhythm: Normal rate. Rhythm irregularly irregular. Pulses: Normal pulses. Heart sounds: Normal heart sounds. No murmur. Pulmonary: Effort: Pulmonary effort is normal. No tachypnea, accessory muscle usage or respiratory distress. Breath sounds: Normal breath sounds. No wheezing. Abdominal: General: Bowel sounds are normal. Palpations: Abdomen is soft. Tenderness: There is no abdominal tenderness. Musculoskeletal: General: Normal range of motion. Cervical back: Full passive range of motion without pain, normal range of motion and neck supple. Lymphadenopathy: Head: Right side of head: No submental adenopathy. Left side of head: No submental adenopathy. Cervical: No cervical adenopathy. Upper Body: Right upper body: No supraclavicular adenopathy. Left upper body: No supraclavicular adenopathy. Skin: General: Skin is warm and dry. Coloration: Skin is not ashen, cyanotic, jaundiced, mottled, pale or sallow. Neurological: General: No focal deficit present. Mental Status: He is alert and oriented to person, place, and time. Motor: Motor function is intact. Psychiatric: Mood and Affect: Mood normal. Speech: Speech normal. Behavior: Behavior is cooperative. Cognition and Memory: Memory is impaired. Judgment: Judgment normal. Assessment/Plan Diagnoses and all orders for this visit: Vertigo (Primary) Assessment & Plan: Ear canals clear. Minimal fluid in bilateral ears. Pt states he does not remember the last time he was dizzy. US carotids ordered Orders: - US Carotids; Future Dementia ([facility]/HCC) Pure hypercholesterolemia - atorvastatin (LIPITOR) 20 mg tablet; Take 1 tablet (20 mg total) by mouth nightly Hypertension, essential - doxazosin (CARDURA) 2 mg tablet; Take 1 tablet (2 mg total) by mouth nightly Benign prostatic hyperplasia with urinary hesitancy Assessment & Plan: Chronic and stable. Continue current medication(s) Orders: - doxazosin (CARDURA) 2 mg tablet; Take 1 tablet (2 mg total) by mouth nightly Dizziness - Vl US Carotids; Future Frequent falls Assessment & Plan: Pt refuses cane or walker for ambulation. Chronic atrial fibrillation (CMS/HCC) Assessment & Plan: Warfarin discontinued due to frequent falls, worsening dementia. Patient is not reliable and statesthat he often forgets to take his medication or sometimes not remember if he took it. Pt to continue ASA 81MG. Other orders - aspirin 81 mg chewable tablet; Take 1 tablet (81 mg total) by mouth nightly - amitriptyline (ELAVIL) 10 mg tablet; Take 1 tablet (10 mg total) by mouth nightly - rOPINIRole (REQUIP) 0.25 mg tablet; Take 1 tablet (0.25 mg total) by mouth 3 (three) times a day For tremors BMI Follow-up includes: education provided. Orders Placed This Encounter ??? Vl US Carotids Standing Status: Future Standing Expiration Date: 11/03/2021 Order Specific Question: Where should this order be performed? Answer: [facility] [[id number]] ??? aspirin 81 mg chewable tablet Sig: Take 1 tablet (81 mg total) by mouth nightly Dispense: 90 tablet Refill: 3 ??? amitriptyline (ELAVIL) 10 mg tablet Sig: Take 1 tablet (10 mg total) by mouth nightly Dispense: 30 tablet Refill: 11 Please fill with [facility] program. This is also replacing the mirtazapine. ??? atorvastatin (LIPITOR) 20 mg tablet Sig: Take 1 tablet (20 mg total) by mouth nightly Dispense: 90 tablet Refill: 3 Please fill with [facility] program ??? doxazosin (CARDURA) 2 mg tablet Sig: Take 1 tablet (2 mg total) by mouth nightly Dispense: 30 tablet Refill: 11 Please fill with [facility] program ??? rOPINIRole (REQUIP) 0.25 mg tablet Sig: Take 1 tablet (0.25 mg total) by mouth 3 (three) times a day For tremors Dispense: 90 tablet Refill: 11 Please fill with [facility] program Current Outpatient Medications Medication Sig Dispense Refill ??? amitriptyline (ELAVIL) 10 mg tablet Take 1 tablet (10 mg total) by mouth nightly 30 tablet 11 ??? aspirin 81 mg chewable tablet Take 1 tablet (81 mg total) by mouth daily 30 tablet 11 ??? atorvastatin (LIPITOR) 20 mg tablet Take 1 tablet (20 mg total) by mouth nightly 90 tablet 3 ??? doxazosin (CARDURA) 2 mg tablet Take 1 tablet (2 mg total) by mouth nightly 30 tablet 11 ??? rOPINIRole (REQUIP) 0.25 mg tablet Take 1 tablet (0.25 mg total) by mouth 3 (three) times a dayFor tremors 90 tablet 11 No current facility-administered medications for this visit. Villa Esquivel NP This note was dictated using [employer] voice recognition software. Variances in spelling and vocabulary are possible and errors are unintentional. Cosigned by Violeta Casillas DO at 11/03/2020 9:31 PM CDT documented in this encounter Miscellaneous Notes * Assessment & Plan Note - Villa Esquivel NP - 11/03/2020 12:12 PM CDT Associated Problem(s): Vertigo Ear canals clear. Minimal fluid in bilateral ears. Pt states he does not remember the last time he was dizzy. US carotids ordered * Assessment & Plan Note - Villa Esquivel NP - 11/03/2020 12:11 PM CDT Associated Problem(s): Frequent falls Pt refuses cane or walker for ambulation. * Assessment & Plan Note - Villa Esquivel NP - 11/03/2020 12:10 PM CDT Associated Problem(s): Benign prostatic hyperplasia with urinary hesitancy Chronic and stable. Continue current medication(s) * Assessment & Plan Note - Villa Esquivel NP - 11/03/2020 12:07 PM CDT Associated Problem(s): Chronic atrial fibrillation (HCC) Warfarin discontinued due to frequent falls, worsening dementia. Patient is not reliable and statesthat he often forgets to take his medication or sometimes not remember if he took it. Pt to continue ASA 81MG. documented in this encounter Plan of Treatment Not on file documented as of this encounter Results * Vl US Carotids [...] bilaterally. Electronically signed by: Abraham Lima M.D us Villa Esquivel [employer] AX DEVELOPER IMG US PROCEDURES Final Resu lt documented in this encounter Visit Diagnoses Diagnosis Vertigo- Primary Dizziness and giddiness Dementia (HCC) Other persistent mental disorders due to conditions classified elsewhere Pure hypercholesterolemia Hypertension, essential Unspecified essential hypertension Benign prostatic hyperplasia with urinary hesitancy Dizziness Dizziness and giddiness Frequent falls Chronic atrial fibrillation (HCC) Atrial fibrillation Vertigo Dizziness and giddiness Dizziness Dizziness and giddiness documented in this encounter Discontinued Medications Medication Sig Discontinue Reason Start Date End Da te amitriptyline (ELAVIL) 10 mg tablet Take 1 tablet (10 mg total) by mouth nightly 09/20/2020 11/03/2020 doxazosin (CARDURA) 2 mg tabletIndications:hypertensio n Take 1 tablet (2 mg total) by mouth nightly Reorder 09/20/2020 11/03/2020 atorvastatin (LIPITOR) 20 mg tabletIndications:Pure hypercholesterolemia Take 1 tablet (20 mg total) by mouth nightly Reorder 09/20/2020 11/03/2020 rOPINIRole (REQUIP) 0.25 mg tabletIndications:Restless Legs Syndrome Take 1 tablet (0.25 mg total) by mouth 3 (three) times a day For tremors Reorder 10/04/2020 11/03/2020 aspirin 81 mg chewable tablet Take 1 tablet (81 mg total) by mouth daily Reorder 10/25/2020 11/03/2020 documented as of this encounter Care Teams Scrap Iron Loader Relationship Specialty Start Date End Date Violeta Casillas DO PCP - General 09/29/16 09/15/21 Spring Banerjee, RN [address] [place] [address] [address] [place] [address] Vehicle Assembler 05/07/20 12/29/20 Nancy Mcgregor RPh [address] [place] [address] [address] [place] [address] Pharmacist Pharmacy 3/31/21 6/13/21 Elo Sánchez, [address] [place] [address] Internal Audit Senior Manager Laser Engineer 09/30/20 11/03/20 documented as of this encounter
--- OUTSIDE RECORDS SUMMARY | 2024-07-09 02:17 | XMS_ITS | Encounter Summary ---
Author Organization [facility] Medical Group Address [address] [facility] [address] [facility] [address] [place] [address] Care Team Providers Care Die Turner Name Role Phone Brandon Sandoval MD Primary Care Provider [phone] Encounter Details Date Type Department Care Team (Late st Contact Info) Description 10/06/2021 Telephone [facility] Medical [facility] Cardiology [address] [place] [address] Feliberto Ramey MD [facility] [facility] [address] [place] [address] Social History Tobacco Use Types [...] often do you attend chur ch or cheondoism services? Never 05/13/2020 Do you belong to any clubs o r organizations such as samaritan groups, unions, fraternal or athletic groups, or [...] place to sleep or slept in a long-term (including now)? 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 Will call next week with update. * Telephone Encounter - Feliberto Ramey MD - 10/06/2021 3:55 PM CDT Inform patient that this is a common complaint of patients in his age group. Cardura was likely prescribed for prostate issues so I have no objection to him holding that medication to see if it helps. * Telephone Encounter - Lola Beasley - 10/06/2021 1:41 PM CDT Pt having some dizziness when he gets up up from sitting down for example. It has been bugging the pt, pt wondering if the medication dixazosin can be stopped to see if that would be the cause of dizziness(maybe a week trail). Pt would like to know if would be okay with mobility manager to stop this medication. Or if there is something else pt can try for dizziness. Please advise [id number] documented in this encounter Plan of Treatment Not on file documented as of this encounter Visit Diagnoses Not on filedocumented in this encounter Care Teams Die Turner Relationship Specialty Start Date End Date Brandon Sandoval MD PCP - General Internal Medicine 09/16/21 10/19/22 documented as of this encounter
--- OUTSIDE RECORDS SUMMARY | 2024-07-09 02:17 | XMS_ITS | Encounter Summary ---
Author Organization [facility] Medical Group Address [address] [facility] [place] [address] Care Team Providers Care Corporate Events Director Name Role Phone Violeta Casillas Primary Care Provider + Spring Banerjee RN Unavailable [phone] Nancy Mcgregor [facility] Unavailable [phone] Elo Sánchez [facility] Unavailable [phone] Reason for Visit * Reason Onset Date Comments Case Management- Medication 11/02/2020 Encounter Details Date Type Department Care Team (Late st Contact Info) Description 11/02/2020 Telephone [facility] [address] [place] [address] Spring Banerjee, TIFFANY [address] [facility] [address] [place] [address] Case Management- Medication Social History Tobacco Use [...] week 05/13/2020 How often do you attend [facility] or islam services? Never 05/13/2020 Do you belong to any clubs o r organizations such as anglican groups, unions, fraternal or athletic groups, or [...] slept in a halfway (including now)? 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 * Telephone Encounter - Spring Banerjee RN - 11/02/2020 11:43 AM CDT Per chart review, Coumadin was discontinued on 10/25. Care Management call today, patient stated andpatient son confirmed that he is still taking Coumadin. Encouraged patient to make an office appointment. FYI patient is scheduled to see Dr. Govind Parker on 01/04 , and son is working on moving patient to live closer to him in [place] for patient safety. Thank you. Spring HAQUE RN [facility] MG - ACO Charge Entry Specialist [phone] documented in this encounter Plan of Treatment Not on file documented as of this encounter Visit Diagnoses Not on filedocumented in this encounter Care Teams Corporate Events Director Relationship Specialty Start Date End Date Violeta Casillas DO PCP - General 09/29/16 09/15/21 Spring Banerjee RN [address] [place] [address] [address] [place] [address] Charge Entry Specialist 05/07/20 12/29/20 Nancy Mcgregor RPh [address] [place] [address] [address] [place] [address] Pharmacist Pharmacy 09/29/20 12/12/20 Elo Sánchez, [address] [place] [address] Social Work Coordinator Sizing Sponger 09/30/20 11/03/20 documented as of this encounter
--- OUTSIDE RECORDS SUMMARY | 2024-07-09 02:17 | XMS_ITS | Encounter Summary ---
Author Organization [facility] Medical Group Address [address] [facility] [facility] [address] [place] [address] Care Team Providers Care Carton Catcher Name Role Phone Violeta Casillas Primary Care Provider + Spring Banerjee RN Unavailable [phone] Nancy Mcgregor [facility] Unavailable [phone] Elo Sánchez [facility] Unavailable Reason for Visit * Reason Comments Med Management Med adherence check in Encounter Details Date Type Department Care Team (Late st Contact Info) Description 10/19/2020 ACO Clinical Pharmacist [facility] Accountable Care Organization [address] [place] [id number] Nancy Mcgregor, [facility] [address] [facility] [address] [place] [address] Social History Tobacco Use Types Packs/Day Years [...] often do you attend chur ch or gnosticist services? Never 05/13/2020 Do you belong to any clubs o r organizations such as worship groups, unions, fraternal or athletic groups, or [...] place to sleep or slept in a snf (including now)? 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 Called patient to discuss medication adherence. States that his son is managing his medications forhim. Son is picking up medications and organizing them in weekly pill organizers for 2 weeks at a time. Patient reports still has picture med list that senior mortgage underwriter mailed to him for reference and states that is it helpful and denies any questions or concerns regarding it. Briefly discussed warfarin color tablet chart that senior mortgage underwriter mailed. Patient states also helpful and no questions, understands how to use if warfarin dose changes between time son comes to set up pill organizers. Assessment: #1 Med adherence ??? Medication therapy problem: none ??? Patient's son is assisting with medication needs (payment, set up). Patient does not have any additional needs at this time. Follow-up: with this senior mortgage underwriter via telephone in approximately 3 month(s) for med adherence check in. The visit was approximately 15 minutes in duration, all of which was via telephone. The patient wasengaged in shared-decision making throughout the encounter. The patient verbalized/demonstrated understanding and had no additional needs or questions at this time. This message was communicated to the referring [facility] Care Mgmt steamfitter apprentice} via routed note. Emani Busch, PharmD Clinical Pharmacist [facility] Medical Group ([facility] & [facility] This note was created using voice recognition software. Grammatical and spelling errors may exist. If you have any questions or concerns please contact me. documented in this encounter Plan of Treatment Not on file documented as of this encounter Visit Diagnoses Not on filedocumented in this encounter Care Teams Carton Catcher Relationship Specialty Start Date End Date Violeta Casillas DO PCP - General 09/29/16 09/15/21 Spring Banerjee RN [address] [place] [address] [address] [place] [address] Polisher Balance Screwhead 05/07/20 12/29/20 Nancy Mcgregor RPh [address] [place] [address] [address] [place] [address] Pharmacist Pharmacy 09/29/20 12/12/20 Elo Sánchez, [address] [place] [address] Quarter Section Ironer Assistant Grocery 09/30/20 11/03/20 documented as of this encounter
--- OUTSIDE RECORDS SUMMARY | 2024-07-09 02:18 | XMS_ITS | Encounter Summary ---
Author Organization [facility] Medical Group Address [address] [address] Care Team Providers Care Telemetry Rn Name Role Phone iVoleta Casillas DO Primary Care Provider + Spring Banerjee RN Unavailable [phone] Reason for Visit * Reason Comments Follow-up Encounter Details Date Type Department Care Team (Late st Contact Info) Description 07/28/2020 9:45 AM SIGNALS COLLECTOR/ANALYST [facility] [address] [place] [phone] Violeta Casillas DO [address] [place] [address] Vertigo (Primary Dx); Chronic idiopathic constipation; Hypertension, essential; Episode of recurrent major depressive disorder, unspecified depression episode severity (CMS/HCC); Chronic obstructive pulmonary disease, unspecified COPD type (CMS/HCC); Hearing difficulty of both ears; Bilateral impacted cerumen; Pure hypercholesterolemia; Weight loss; Mild episode of recurrent major depressive disorder (CMS/HCC); Benign prostatic hyperplasia with urinary hesitancy; Prediabetes Social History Tobacco Use Types Packs/Day Years [...] any clubs o r organizations such as zoroastrianism groups, unions, fraternal or athletic groups, or [...] more points, staff should administer the PHQ-9) 2 07/28/2020 Hunger Vital Sign Answer Date Recorded Within the past 12 months, y ou worried that your food would run out before you got the money to buy more. Patient declined Within the past 12 months, t he food you bought just didn't last and you didn't have money to get more. Patient declined 06/2020 PRAPARE - Transportation Answer Date Re corded In the past 12 months, has l ack of transportation kept you from medical appointments or from getting medications? No 05/02 In the past 12 months, has l ack of transportation kept you from meetings, work, or from getting things needed for daily living? No 05/13/2020 Sex and Gender Information Value Date Recorded Sex Assigned at Not on file Legal Sex Male 3:40 AM SIGNALS COLLECTOR/ANALYST Gender Identity Not on file Sexual Orientation Not on file documented as of this encounter Last Filed Vital Signs Vital Sign Reading Time Taken Comments Blood Pressure 174/70 07/28/2020 8:55 AM SIGNALS COLLECTOR/ANALYST Pulse 67 07/28/2020 8:55 AM SIGNALS COLLECTOR/ANALYST Temperature 36.9 ??C (98.4 ??F) 07/28/2020 8:55 AM CS T Respiratory Rate 16 07/28/2020 8:55 AM SIGNALS COLLECTOR/ANALYST Oxygen Saturation 95% 07/28/2020 8:55 AM SIGNALS COLLECTOR/ANALYST Inhaled Oxygen Concentration - - Weight 73.3 kg (161 lb 9.6 oz) 07/28/2020 8:55 A M SIGNALS COLLECTOR/ANALYST Height 182.9 cm (6' 0.01 ) 07/28/2020 8:55 AM CS T Body Mass Index 21.91 07/28/2020 8:55 AM SIGNALS COLLECTOR/ANALYST documented in this encounter Ordered Prescriptions Prescription Sig Dispense Quantity Refills Last Filled Start Date End Date doxazosin (CARDURA) 2 mg tabletIndications: hypertension Take 1 tablet (2 mg total) by mouth nightly 30 tablet 11 07/28/2020 1 mirtazapine (REMERON) 30 mg tabletIndications: Weight loss,Mild episode of recurrent major depressive disorder (HCC) Take 1 tablet (30 mg total) by mouth nightly For anxiety, depression, and appetite 90 tablet 3 07/28/2020 1 documented in this encounter Progress Notes * Violeta Casillas, DO - 07/28/2020 9:45 AM CST Images from the original note were not included. Subjective/Objective Patient ID: Noé Davila is a 84 y.o. male. Chief Complaint Follow-up Vitals: 07/28/20 0855 BP: (!) 174/70 Pulse: 67 Resp: 16 Temp: 36.9 ??C (98.4 ??F) TempSrc: Temporal SpO2: 95% Weight: 73.3 kg (161 lb 9.6 oz) Height: 182.9 cm (6' 0.01 ) Body mass index is 21.91 kg/m??. Noé Davila is here for follow up on chronic problems, at least one of which is HTN. All prescribed medications are tolerated well without any reported side effects or intolerances. I have reviewed medical, social, and family histories in depth with patient and/or their volunteer patient representative. Review of Systems PHQ Screening PHQ-2 Total Score (If total score is 3 or more points, staff should administer the PHQ-9): 2 Physical Exam Vitals signs and nursing note reviewed. Constitutional: General: He [...] this visit: Vertigo (Primary) Assessment & Plan: Likely related to uncontrolled allergies, though not sure if cerumen impaction also playing a role. I recommend use of Flonase (fluticasone) though he has been mostly non-compliant with suggestions on this; could be memory/cognitive in nature. Chronic idiopathic constipation Assessment & Plan: Chronic & stable on meds. Continue current treatment. Hypertension, essential Assessment & Plan: Will increase the doxazosin from 1 mg to 2 mg daily to help both BPH and HTN Orders: - Cholesterol, LDL, direct; Future - TSH; Future - doxazosin (CARDURA) 2 mg tablet; Take 1 tablet (2 mg total) by mouth nightly - Comprehensive metabolic panel (Outreach); Future Episode of recurrent major depressive disorder, unspecified depression episode severity (CMS/HCC) Assessment & Plan: Increase the Mirtazapine to 30mg daily and stop the Amitriptyline 10 mg daily, especially since he has constipation. Chronic obstructive pulmonary disease, unspecified COPD type (CMS/HCC) Assessment & Plan: Stable with out prescription medication. He feels like albuterol has not been helpful at all. Hearing difficulty of both ears Assessment & Plan: Tried to clean out ears today. Bilateral impacted cerumen Assessment & Plan: Ear irrigation today. Pure hypercholesterolemia Assessment & Plan: Chronic & stable on meds. Continue current treatment. Orders: - Cholesterol, LDL, direct; Future - TSH; Future Weight loss Assessment & Plan: Stable with Mirtazapine. Will increase the Mirtazapine to 30mg today. Orders: - mirtazapine (REMERON) 30 mg tablet; Take 1 tablet (30 mg total) by mouth nightly For anxiety, depression, and appetite Mild episode of recurrent major depressive disorder (CMS/HCC) Assessment & Plan: Increase the Mirtazapine to 30mg daily and stop the Amitriptyline 10 mg daily, especially since he has constipation. Orders: - mirtazapine (REMERON) 30 mg tablet; Take 1 tablet (30 mg total) by mouth nightly For anxiety, depression, and appetite Benign prostatic hyperplasia with urinary hesitancy Assessment & Plan: Increase the doxazosin from 1 mg to 2 mg. Orders: - doxazosin (CARDURA) 2 mg tablet; Take 1 tablet (2 mg total) by mouth nightly Prediabetes Assessment & Plan: Will check new labs and make adjustments if needed. Orders: - POCT hemoglobin A1c BMI Follow-up includes: education provided. Orders Placed This Encounter ??? Cholesterol, LDL, direct Standing Status: Future Number of Occurrences: 1 Standing Expiration Date: 01/25/2021 ??? TSH Standing Status: Future Number of Occurrences: 1 Standing Expiration Date: 01/25/2021 ??? Comprehensive metabolic panel (Outreach) Not fasting Standing Status: Future Number of Occurrences: 1 Standing Expiration Date: 07/28/2021 ??? POCT hemoglobin A1c ??? mirtazapine (REMERON) 30 mg tablet Sig: Take 1 tablet (30 mg total) by mouth nightly For anxiety, depression, and appetite Dispense: 90 tablet Refill: 3 ??? doxazosin (CARDURA) 2 mg tablet Sig: Take 1 tablet (2 mg total) by mouth nightly Dispense: 30 tablet Refill: 11 For blood pressure and urine flow Current Outpatient Medications Medication Sig Dispense Refill ??? atorvastatin (LIPITOR) 20 mg tablet Take 1 tablet (20 mg total) by mouth nightly 90 tablet 3 ??? doxazosin (CARDURA) 2 mg tablet Take 1 tablet (2 mg total) by mouth nightly 30 tablet 11 ??? mirtazapine (REMERON) 30 mg tablet Take [...] sum of 8mg. 90 tablet 1 ??? fluticasone propionate (FLONASE) 50 mcg/actuation nasal spray Administer 2 sprays into each nostril daily (Patient not taking: Reported on 01/26/2020) 16 g 5 ??? senna (SENOKOT) 8.6 mg tablet Take 1 tablet by mouth daily as needed for constipation. (Patientnot taking: Reported on 01/26/2020) No current facility-administered medications for this visit. Violeta Casillas DO This note was dictated using [employer] voice recognition software. Variances in spelling and vocabulary are possible and errors are unintentional. ALS COLLECTOR/ANALYST documented in this encounter Miscellaneous Notes * Result Encounter Note - Violeta Casillas DO - 07/28/2020 7:53 PM SIGNALS COLLECTOR/ANALYST Normal A1C ALS COLLECTOR/ANALYST * Assessment & Plan Note - Violeta Casillas DO - 07/28/2020 7:43 PM SIGNALS COLLECTOR/ANALYST Associated Problem(s): Hearing difficulty of both ears Tried to clean out ears today. ALS COLLECTOR/ANALYST * Assessment & Plan Note - Violeta Casillas DO - 07/28/2020 7:42 PM SIGNALS COLLECTOR/ANALYST Associated Problem(s): Pure hypercholesterolemia Chronic & stable on meds. Continue current treatment. ALS COLLECTOR/ANALYST * Assessment & Plan Note - Violeta Casillas DO - 07/28/2020 7:41 PM SIGNALS COLLECTOR/ANALYST Associated Problem(s): Chronic obstructive pulmonary disease (HCC) Stable with out prescription medication. He feels like albuterol has not been helpful at all. ALS COLLECTOR/ANALYST * Assessment & Plan Note - Violeta Casillas DO - 07/28/2020 7:38 PM SIGNALS COLLECTOR/ANALYST Associated Problem(s): Benign prostatic hyperplasia with urinary hesitancy Increase the doxazosin from 1 mg to 2 mg. ALS COLLECTOR/ANALYST * Assessment & Plan Note - Violeta Casillas DO - 07/28/2020 7:26 PM SIGNALS COLLECTOR/ANALYST Associated Problem(s): Recurrent major depressive disorder (HCC) Increase the Mirtazapine to 30mg daily and stop the Amitriptyline 10 mg daily, especially since he has constipation. ALS COLLECTOR/ANALYST * Assessment & Plan Note - Violeta Casillas DO - 07/28/2020 7:23 PM SIGNALS COLLECTOR/ANALYST Associated Problem(s): Hypertension, essential Will increase the doxazosin from 1 mg to 2 mg daily to help both BPH and HTN ALS COLLECTOR/ANALYST * Assessment & Plan Note - Violeta Casillas DO - 07/28/2020 7:22 PM SIGNALS COLLECTOR/ANALYST Associated Problem(s): Weight loss Stable with Mirtazapine. Will increase the Mirtazapine to 30mg today. ALS COLLECTOR/ANALYST * Assessment & Plan Note - Violeta Casillas DO - 07/28/2020 7:21 PM SIGNALS COLLECTOR/ANALYST Associated Problem(s): Bilateral impacted cerumen (Resolved 09/17/2020) Ear irrigation today. ALS COLLECTOR/ANALYST * Assessment & Plan Note - Violeta Casillas DO - 07/28/2020 7:21 PM SIGNALS COLLECTOR/ANALYST Associated Problem(s): Chronic idiopathic constipation Chronic & stable on meds. Continue current treatment. ALS COLLECTOR/ANALYST * Assessment & Plan Note - Violeta Casillas DO - 07/28/2020 7:20 PM SIGNALS COLLECTOR/ANALYST Associated Problem(s): Prediabetes Will check new labs and make adjustments if needed. ALS COLLECTOR/ANALYST * Assessment & Plan Note - Violeta Casillas DO - 07/28/2020 9:40 AM SIGNALS COLLECTOR/ANALYST Associated Problem(s): Vertigo Likely related to uncontrolled allergies, though not sure if cerumen impaction also playing a role. I recommend use of Flonase (fluticasone) though he has been mostly non-compliant with suggestions on this; could be memory/cognitive in nature. ALS COLLECTOR/ANALYST documented in this encounter Plan of Treatment Not on file documented as of this encounter Procedures Procedure Name Priority Date/Time Associated Diagnosis Comments POCT HEMOGLOBIN A1C Routine 07/28/2020 1 0:59 AM SIGNALS COLLECTOR/ANALYST Prediabetes documented in this encounter Results * POCT hemoglobin A1c (07/28/2020 10:59 AM SIGNALS COLLECTOR/ANALYST) Hemoglobin A1C, POC 5.6 Blood specimen (specimen) 07/28/2020 10:59 AM SIGNALS COLLECTOR/ANALYST Violeta Casillas DO POINT OF CARE TEST ORDER ANDREZ Final Result * (ABNORMAL) TSH (07/28/2020 10:15 AM SIGNALS COLLECTOR/ANALYST) Thyroid Stimulating Hormone 0.26(L) 0.30 - 4.20 mcIUnit/mL [facility] Blood specimen (specimen) 07/28/2020 10:15 AM SIGNALS COLLECTOR/ANALYST 07/28/2020 1:33 PM SIGNALS COLLECTOR/ANALYST Violeta Casillas DO LAB BLOOD ORDERABLES Fin al Result Performing Organization Address [facility] de Phone Number [facility] [address] [place] [address] * Cholesterol, LDL, direct (07/28/2020 10:15 AM SIGNALS COLLECTOR/ANALYST) LDL Cholesterol, Direct 95 <=129 mg/dL [facility] Comment: Interpretive Data Ages < or = 19 years ??Acceptable: ? <110 mg/dL ??Borderline high: ??110-129 mg/dL ??High: ?>or= 130 mg/dL Ages > or = 20 years ??Optimal: ? <100 mg/dL ??Near optimal: ?100-129 mg/dL ??Borderline high: ?? 130-159 mg/dL ??High: ?>160 mg/dL Literature References: 1. Expert Panel on Integrated Guidelines for Cardiovascular Health and Risk Reduction in Children and Adolescents. Pediatrics 2011;128:S213 2. NCEP Expert Panel. Circulation 2004;110:227 Current Interpretive Data was last revised on 2018. Blood specimen (specimen) 07/28/2020 10:15 AM SIGNALS COLLECTOR/ANALYST 07/28/2020 1:33 PM SIGNALS COLLECTOR/ANALYST Violeta Casillas DO LAB BLOOD ORDERABLES Fin al Result Performing Organization Address [facility] de Phone Number [facility] [address] [place] [address] documented in this encounter Visit Diagnoses Diagnosis Vertigo- Primary Dizziness and giddiness Chronic idiopathic constipation Unspecified constipation Hypertension, essential Unspecified essential hypertension Episode of recurrent major depressive disorder, unspecified depression episode severity (HCC) Chronic obstructive pulmonary disease, unspecified COPD type (HCC) Hearing difficulty of both ears Bilateral impacted cerumen Impacted cerumen Pure hypercholesterolemia Weight loss Loss of weight Mild episode of recurrent major depressive disorder (HCC) Benign prostatic hyperplasia with urinary hesitancy Prediabetes Other abnormal glucose documented in this encounter Discontinued Medications Medication Sig Discontinue Reason Start Date End Da te dextromethorphan-guaife nesin 5-100 mg/5 mL liquid Take 5-10 mL by mouth every 4 (four) hours as needed (cough and congestion) 04/21/2019 07/28/2020 amitriptyline (ELAVIL) 10 mg tabletIndications:depre ssion Take 1 tablet (10 mg total) by mouth nightly 07/22/2020 07/28/2020 doxazosin (CARDURA) 1 mg tabletIndications:hyper tension Take 1 mg by mouth nightly. Indications: high blood pressure Reorder 07/28/2020 mirtazapine (REMERON) 15 mg tabletIndications:Weigh t loss,Mild episode of recurrent major depressive disorder (HCC) Take 1 tablet by mouth nightly Reorder 06/01/2020 07/28/2020 documented as of this encounter Care Teams Telemetry Rn Relationship Specialty Start Date End Date Violeta Casillas DO PCP - General 09/29/16 09/15/21 Spring Banerjee RN [address] [place] [address] [address] [place] [address] Material Handler 1St Shift 05/07/20 12/29/20 documented as of this encounter
--- OUTSIDE RECORDS SUMMARY | 2024-07-09 02:18 | XMS_ITS | Encounter Summary ---
Author Organization [facility] Home Care Servic es Address [address] [place] [address] Phone Care Team Providers Care Slot Manager Name Role Phone Violeta Casillas DO Primary Care Provider + Spring Banerjee RN Unavailable [phone] Dayana Marina [employer] ANALYST Unavailable [phone] Reason for Visit * Auth/Cert Specialty Diagnoses / Procedures Referred By Ignacia t Referred To Contact Referral ID Status Reason Start Date Expiration Date Visits Re quested Visits Authorized [id number] 1 1 Encounter Details Date Type Department Care Team (Late st Contact Info) Description 05/21/2020 Home Care Visit [facility] Home Health [address] [phone] Diaz Andrade, SPEECH LANGUAGE PATHOLOGIST CASE COMMUNICATION Social History Tobacco Use Types Packs/Day Years [...] any clubs o r organizations such as orthodox groups, unions, fraternal or athletic groups, or school groups? No 05/13/2020 How often do you attend meet ings of the clubs or organizations you belong to? Never 05/13/2020 Are you , , di vorced, , never , or living with a partner? 05/13/2020 Overall Financial Resource Strain (CARDIA) Answe r Date Recorded Difficulty of Paying Living Expenses Not very [address] 05/13/2020 PHQ-2 Answer Date Recorded PHQ-2 Score 2 05/06/2020 Hunger Vital Sign Answer Date Recorded Within [...] on file Legal Sex Male 3:40 AM GEOLOGICAL E LOGGER Gender Identity Not on file Sexual Orientation Not on file documented as of this encounter Plan of Treatment Not on file documented as of this encounter Visit Diagnoses Not on filedocumented in this encounter Care Teams Slot Manager Relationship Specialty Start Date End Date Violeta Casillas DO PCP - General 09/29/16 09/15/21 Spring Banerjee RN [address] [facility] [address] [place] [address] Manager Purchasing 05/07/20 12/29/20 Dayana Marina LCSW [address] [facility] [address] [place] [address] Belt Turner 05/10/20 05/25/20 documented as of this encounter
--- OUTSIDE RECORDS SUMMARY | 2024-07-09 02:18 | XMS_ITS | Encounter Summary ---
Author Organization [facility] Medical Group Address [address] [address] Care Team Providers Care Bull Gang Supervisor Name Role Phone CasillasVioleta Primary Care Provider + Spring Banerjee RN Unavailable [phone] Encounter Details Date Type Department Care Team (Late st Contact Info) Description 06/23/2020 Anticoagulation Visit [facility] [address] [place] [phone] Cricket Millan MD [address] [place] [phone] Social History Tobacco Use Types Packs/Day Years [...] often do you attend chur ch or religion services? Never 05/13/2020 Do you belong to [...] on file Legal Sex Male 3:40 AM LEGAL SUPPORT ANALYST Gender Identity Not on file Sexual Orientation Not on file documented as of this encounter Plan of Treatment Not on file documented as of this encounter Visit Diagnoses Not on filedocumented in this encounter Care Teams Bull Gang Supervisor Relationship Specialty Start Date End Date Violeta Casillas DO PCP - General 09/29/16 09/15/21 Spring Banerjee RN [address] [place] [address] [address] [place] [address] Profile Grinder 05/07/20 12/29/20 documented as of this encounter
--- OUTSIDE RECORDS SUMMARY | 2024-07-09 02:18 | XMS_ITS | Encounter Summary ---
Author Organization [facility] Home Care Serv[facility] es Address [address] [place] [address] Phone Care Team Providers Care Log Chipper Name Role Phone Violeta Casillas Primary Care Provider + Spring Banerjee RN Unavailable [phone] Reason for Visit * Auth/Cert Specialty Diagnoses / Procedures Referred By Ignacia t Referred To Contact Referral ID Status Reason Start Date Expiration Date Visits Re quested Visits Authorized [id number] 1 1 Encounter Details Date Type Department Care Team (Late st Contact Info) Description 06/02/2020 Home Care Visit [facility] Home Health - [address] [phone] Josiane Rodriguez, [facility] TRAVEL SCREENING CASE COMMUNICATION Social History Tobacco Use Types [...] often do you attend chur ch or jain services? Never 05/13/2020 Do you belong to any clubs o r organizations such as gnosticism groups, unions, fraternal or athletic groups, or [...] on file Legal Sex Male 3:40 AM ORNAMENTAL IRON WORKER APPRENTICE Gender Identity Not on file Sexual Orientation Not on file documented as of this encounter Plan of Treatment Not on file documented as of this encounter Visit Diagnoses Not on filedocumented in this encounter Care Teams Log Chipper Relationship Specialty Start Date End Date Violeta Casillas DO PCP - General 09/29/16 09/15/21 Spring Banerjee RN [address] [place] [address] [address] [place] [address] Stripper And Printer 05/07/20 12/29/20 documented as of this encounter
--- OUTSIDE RECORDS SUMMARY | 2024-07-09 02:18 | XMS_ITS | Encounter Summary ---
Author Organization [facility] Address [address] [place] [address] Phone Care Team Providers Care Testing Specialist Name Role Phone CasillasDiazlexa Dominic Primary Care Provider + Spring Banerjee RN Unavailable [phone] Reason for Visit * Auth/Cert Specialty Diagnoses / Procedures Referred By Ignacia t Referred To Contact Referral ID Status Reason Start Date Expiration Date Visits Re quested Visits Authorized [id number] 1 1 Encounter Details Date Type Department Care Team (Late st Contact Info) Description 05/31/2020 2:00 PM BIOFUELS PLANT SUPERINTENDENT Home Care Visit [facility] Home Health - [address] [address] Josiane Rodriguez PTA PT HOME VISIT Social History Tobacco Use Types Packs/Day Years [...] often do you attend chur ch or orthodox services? 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 Gender Identity Not on file Sexual Orientation Not on file documented as of this encounter Last Filed Vital Signs Vital Sign Reading Time Taken Comments Blood Pressure 130/72 05/31/2020 3:05 PM BIOFUELS PLANT SUPERINTENDENT Pulse 68 05/31/2020 3:05 PM BIOFUELS PLANT SUPERINTENDENT Temperature 36.1 ??C (96.9 ??F) 05/31/2020 3:05 PM CS T Respiratory Rate 18 05/31/2020 3:05 PM BIOFUELS PLANT SUPERINTENDENT Oxygen Saturation 96% 05/31/2020 3:05 PM BIOFUELS PLANT SUPERINTENDENT Inhaled Oxygen Concentration - - Weight - - Height - - Body Mass Index - - documented in this encounter Plan of Treatment Not on file documented as of this encounter Visit Diagnoses Not on filedocumented in this encounter Home Health Visit - Care Plan Visit Details Visit Type -PT Home Visit Discipline -Physical Therapy Problems Problem Description Start Date Status Goals Interve ntions Homebound Status Disciplines: Long-Term, Physical Therapy Patient's homebound status 05/12/2020 Active 1 goal linked to scheduled/documen max intervention 1 goal intervention scheduled/document ed in this visit Monitor patient's vital signs every home health visit Disciplines: Long-Term, Physical Therapy Monitor patient's vital signs every home health visit. 05/12/2020 Active 1 goal linked to scheduled/documen max intervention 1 goal intervention scheduled/document ed in this visit PT Impaired Functional Mobility/Balanc e Disciplines: Physical Therapy Impaired functional mobility/balance 05/14/2020 Active - 4 problem interventions scheduled/document ed in this visit Goals Goal Associated Problem Outcome Goal Met? Visit Notes Patient recieves care at the most appropriate care setting Description: Patient receives care at the most appropriate care setting. Homebound Status No Measure vital signs during every home health visit during episode of care Description: Home photoresist printer to measure vital signs during every home health visit during episode of care. Monitor patient's vital signs every home health visit No Interventions Intervention Associated Problem/Goal Status Variance Visit Notes Homebound Status Description: Patient is homebound due to unsteady gait/poor balance, unable to negotiate stairs and fall risk as evidenced by WEAKNESS, HIGH FALL RISK AND SOB WITH EXERTION MAKING IT A TAXING EFFORT TO LEAVE THE HOME. Problem:Homebound Status Goal:Patient recieves care at the most appropriate care setting Completed Patient is homebound due to unsteady gait, decreased balance, fall risk, decreased endurance, taxing effort out of home. Monitor Vital Signs Description: Monitor blood pressure, pulse, oxygen saturation, respirations Problem:Monitor patient's vital signs every home health visit Goal:Measure vital signs during every home health visit during episode of care Completed Transfer training Description: Instruct patient/caregiver and perform transfer training. Problem:PT Impaired Functional Mobility/Balance Completed Gait/Stair Training Description: Instruct patient/caregiver and perform gait/stair training. Problem:PT Impaired Functional Mobility/Balance Completed Balance Training/Activities Description: Instruct patient/caregiver and perform balance training activities. Problem:PT Impaired Functional Mobility/Balance Completed Therapeutic Exercise Description: Perform therapeutic exercise, progressing as tolerated. Problem:PT Impaired Functional Mobility/Balance Completed documented in this encounter Home Health Visit - Actions and Narratives Actions Prior to visit, discussion w / Yakelin Landon PT regarding patient's progress in therapy. AT visit w/patient regarding scheduling of upcoming txs Narratives Patient anthony tx well. He does require brief rests in between activities but overall is doing better w/ all transfers and gait. documented in this encounter Care Teams Testing Specialist Relationship Specialty Start Date End Date Violeta Casillas DO PCP - General 09/29/16 09/15/21 Spring Banerjee RN [address] [place] [address] [address] [place] [id number] Fish Hatchery Assistant 05/07/20 12/29/20 documented as of this encounter
--- OUTSIDE RECORDS SUMMARY | 2024-07-09 02:18 | XMS_ITS | Encounter Summary ---
Author Organization [facility] Home Care [facility] es Address [address] [place] [address] Phone Care Team Providers Care Pet Supplies Salesperson Name Role Phone Violeta Casillas DO Primary Care Provider + Spring Banerjee RN Unavailable [phone] Dayana Marina SELECTOR PACKER Unavailable [phone] Encounter Details Date Type Department Care Team (Late st Contact Info) Description 05/12/2020 Plan of Care Documentation [facility] Home Health [address] [address] Social History Tobacco Use Types Packs/Day Years [...] often do you attend chur ch or congregational services? 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 Gender Identity Not on file Sexual Orientation Not on file documented as of this encounter Plan of Treatment Not on file documented as of this encounter Visit Diagnoses Not on filedocumented in this encounter Care Teams Pet Supplies Salesperson Relationship Specialty Start Date End Date Violeta Casillas DO PCP - General 09/29/16 09/15/21 Spring Banerjee RN [address] [address] [facility] [address] [place] [address] Exhibit Cleaner 05/07/20 12/29/20 Dayana Marina LCSW [address] [address] [place], [place] [id number] Mime Artist 05/10/20 05/25/20 documented as of this encounter
--- OUTSIDE RECORDS SUMMARY | 2024-07-09 02:18 | XMS_ITS | Encounter Summary ---
Author Organization [facility] Home [facility] Address [address] [place] [address] Phone Care Team Providers Care Director Client Services Name Role Phone Violeta Casillas Primary Care Provider + Spring Banerjee RN Unavailable [phone] Dayana Marina LCSW Unavailable [phone] Reason for Visit * Auth/Cert Specialty Diagnoses / Procedures Referred By Contsylvester t Referred To Contact Referral ID Status Reason Start Date Expiration Date Visits Re quested Visits Authorized [id number] 1 1 Encounter Details Date Type Department Care Team (Late st Contact Info) Description 05/12/2020 Home Care Visit [facility] Home Health [address] [address] Shanelle Guillen, TIFFANY SBAR-START OF CARE/RESUMPTION Social History Tobacco Use Types Packs/Day Years [...] often do you attend chur ch or restorationism services? 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 Gender Identity Not on file Sexual Orientation Not on file documented as of this encounter Plan of Treatment Not on file documented as of this encounter Visit Diagnoses Not on filedocumented in this encounter Care Teams Director Client Services Relationship Specialty Start Date End Date Violeta Casillas DO PCP - General 09/29/16 09/15/21 Spring Banerjee, TIFFANY [address] [facility] [address] [place] [address] Test And Turn Up Technician 05/07/20 12/29/20 Dayana Marina LCSW [address] [facility] [address] [place] [address] Vehicle Calibration Engineer 05/10/20 05/25/20 documented as of this encounter
--- OUTSIDE RECORDS SUMMARY | 2024-07-09 02:18 | XMS_ITS | Encounter Summary ---
Author Organization [facility] Home [facility] Address [address] [place] [address] Phone Care Team Providers Care Motor Equipment Lieutenant Name Role Phone CasillasDiazlexa Dominic Primary Care Provider + Spring Banerjee RN Unavailable [phone] Reason for Visit * Auth/Cert Specialty Diagnoses / Procedures Referred By Ignacia t Referred To Contact Referral ID Status Reason Start Date Expiration Date Visits Re quested Visits Authorized [id number] 1 1 Encounter Details Date Type Department Care Team (Late st Contact Info) Description 06/11/2020 1:30 PM WASHER MACHINE Home Care Visit [facility] Home Health - [address] [address] Yakelin Landon, PT PT OASIS DISCHARGE Social History Tobacco Use Types Packs/Day Years [...] often do you attend chur ch or jewish services? Never 05/13/2020 Do you belong to any clubs o r organizations such as yazidi groups, unions, fraternal or athletic groups, or [...] on file Legal Sex Male 3:40 AM WASHER MACHINE Gender Identity Not on file Sexual Orientation Not on file documented as of this encounter Last Filed Vital Signs Vital Sign Reading Time Taken Comments Blood Pressure 122/70 06/11/2020 12:50 PM WASHER MACHINE Pulse 80 06/11/2020 12:50 PM WASHER MACHINE Temperature 36.7 ??C (98.1 ??F) 06/11/2020 12:[address] Respiratory Rate 18 06/11/2020 12:50 PM WASHER MACHINE Oxygen Saturation 97% 06/11/2020 12:50 PM WASHER MACHINE Inhaled Oxygen Concentration - - Weight - - Height - - Body Mass Index - - documented in this encounter Plan of Treatment Not on file documented as of this encounter Visit Diagnoses Not on filedocumented in this encounter Home Health Visit - Care Plan Visit Details Visit Type -PT OASIS Dischar ge Discipline -Physical Therapy Problems Problem Description Start Date Status Goals Interve ntions Homebound Status Disciplines: [facility]ci, Physical Therapy Patient's homebound status 05/12/2020 Resolved on 06/11/2020 1 goal linked to scheduled/documen max intervention 1 goal intervention scheduled/documen max in this visit Monitor patient's vital signs every home health visit Disciplines: Fci, Physical Therapy Monitor patient's vital signs every home health visit. 05/12/2020 Resolved on 06/11/2020 1 goal linked to scheduled/documen max intervention 1 goal intervention scheduled/documen max in this visit Infection Prevention Disciplines: [facility]ci, Physical Therapy Infection Prevention 05/12/2020 Resolved on 06/11/2020 1 goal linked to scheduled/documen max intervention Standardized Guidelines Disciplines: [facility]ci, Physical Therapy Standardized Guidelines 05/12/2020 Resolved on 06/11/2020 1 goal linked to scheduled/documen max intervention Fall Precautions/Saf ety Concerns Disciplines: [facility]ci, Physical Therapy Alteration in safety 05/12/2020 Resolved on 06/11/2020 1 goal linked to scheduled/documen max intervention 2 goal interventions scheduled/documen max in this visit [place] Precautions Disciplines: [facility]ci, Physical Therapy [place] Precautions 05/12/2020 Resolved on 06/11/2020 1 goal linked to scheduled/documen max intervention PT Activity Tolerance/Energ y Conservation Disciplines: Physical Therapy Impaired activity tolerance for functional activity 05/14/2020 Resolved on 06/11/2020 1 goal linked to scheduled/documen max intervention 1 problem intervention scheduled/documen max in this visit PT Impaired Functional Mobility/Balanc e Disciplines: Physical Therapy Impaired functional mobility/balance 05/14/2020 Resolved on 06/11/2020 4 goals linked to scheduled/documen max interventions 4 problem interventions scheduled/documen max in this visit Goals Goal Associated Problem Outcome Goal Met? Visit Notes Patient recieves care at the most appropriate care setting Description: Patient receives care at the most appropriate care setting. Homebound Status Completed Yes Measure vital signs during every home health visit during episode of care Description: Home blind aide to measure vital signs during every home health visit during episode of care. Monitor patient's vital signs every home health visit Completed Yes Verbalize signs of infection Description: Verbalize signs of infection Infection Prevention Completed Yes Understanding of when to notify MD in absence of home care staff Description: Understanding of when to notify MD in absence of home care staff Standardized Guidelines Completed Yes Demonstrate use of safety precautions Description: Demonstrate use of safety precautions Fall Precautions/Safety Concerns Completed Yes Demonstrate knowledge of universal precautions Description: Demonstrate knowledge of universal precautions [place] Precautions Completed Yes Improvement in Activity Tolerance (Basic Mobility) Description: Patient/caregiver will perform ADLS utilizing energy conservation techniques and recommendations by THERAPY DC. Patient to demonstrate improved breathing pattern at rest and with activity by therapy discharge. PT Activity Tolerance/Energy Conservation Completed Yes Improvement with Transfers Description: Patient able to perform INDEP TRANSFERS/BED MOBILITY BY THERAPY DC. PT Impaired Functional Mobility/Balance Completed Yes Improvement in Gait/Stair Training Description: Patient will ambulate >500 FEET INDEP WITH SAFE GAIT PATTERN. Patient will negotiate STEPS AND UNLEVEL SURFACES IN AND out of home INDEP to access transportation/community activities by THERAPY DC. PT Impaired Functional Mobility/Balance Completed Yes Improvement with balance Description: Improve EBONI/Tinetti score to 19/28 by therapy discharge. Improve TUG SCORE TO 10-19 by therapy discharge. PT Impaired Functional Mobility/Balance Completed Yes Performance with HEP Description: Patient/caregiver to be independent with progressed HEP by therapy discharge. PT Impaired Functional Mobility/Balance Completed Yes Interventions Intervention Associated Problem/Goal Status Variance Visit Notes Homebound Status Description: Patient is homebound due to unsteady gait/poor balance, unable to negotiate stairs and fall risk as evidenced by WEAKNESS, HIGH FALL RISK AND SOB WITH EXERTION MAKING IT A TAXING EFFORT TO LEAVE THE HOME. Problem:Homebound Status Goal:Patient recieves care at the most appropriate care setting Completed Patient is NO LONGER HOMEBOUND THEREFORE DC HH PT TODAY Monitor Vital Signs Description: Monitor blood pressure, pulse, oxygen saturation, respirations Problem:Monitor patient's vital signs every home health visit Goal:Measure vital signs during every home health visit during episode of care Completed High Fall Risk Precautions Description: Instruct patient/caregiver in methods to prevent falls Problem:Fall Precautions/Safety Concerns Goal:Demonstrate use of safety precautions Completed [place] Fall Precautions Description: Assess patient safety Problem:Fall Precautions/Safety Concerns Goal:Demonstrate use of safety precautions Completed Energy Conservation Education Description: Instruct patient/caregiver in techniques for improved activity tolerance. Problem:PT Activity Tolerance/Energy Conservation Completed Transfer training Description: Instruct patient/caregiver and perform transfer training. Problem:PT Impaired Functional Mobility/Balance Completed Home Exercise Program (HEP) Description: Instruct patient/caregiver and perform HEP. Problem:PT Impaired Functional Mobility/Balance Completed Gait/Stair Training Description: Instruct patient/caregiver and perform gait/stair training. Problem:PT Impaired Functional Mobility/Balance Completed Balance Training/Activities Description: Instruct patient/caregiver and perform balance training activities. Problem:PT Impaired Functional Mobility/Balance Completed documented in this encounter Care Teams Motor Equipment Lieutenant Relationship Specialty Start Date End Date Violeta Casillas DO PCP - General 09/29/16 09/15/21 Spring Banerjee RN [address] [place] [address] [address] [place] [address] Director Business Intelligence 05/07/20 12/29/20 documented as of this encounter
--- OUTSIDE RECORDS SUMMARY | 2024-07-09 02:18 | XMS_ITS | Encounter Summary ---
Author Organization [facility] Address [address] [address] Care Team Providers Care Automatic Outsole Cutter Name Role Phone Violeta Posada DO Primary Care Provider + Spring Banerjee RN Unavailable [phone] Dayana Marina LITHOGRAPHIC ARTIST Unavailable [phone] Encounter Details Date Type Department Care Team (Late st Contact Info) Description 05/25/2020 Telephone [facility] [address] [place] [address] Violeta Posada DO [address] [place] [address] Social History Tobacco Use Types [...] often do you attend chur ch or holiness services? Never 05/13/2020 Do you belong to [...] file Legal Sex Male 3:40 AM MEDICAL DIR Gender Identity Not on file Sexual Orientation Not on file documented as of this encounter Miscellaneous Notes * Telephone Encounter - Ruth Farmer LPN - 05/25/2020 3:55 PM CST Left voicemail for Alana. CAL DIR * Telephone Encounter - Violeta Posada DO - 05/25/2020 1:07 PM MEDICAL DIR Yes please. CAL DIR * Telephone Encounter - Ruth Farmer LPN - 05/25/2020 11:47 AM CST It looks like he hasn't had an INR since November CAL DIR * Telephone Encounter - Nguyễn Rueda - 05/25/2020 11:24 AM CST Alana with [facility] called and she is asking if dr posada wants her to draw an inr on him [phone] CAL DIR documented in this encounter Plan of Treatment Not on file documented as of this encounter Visit Diagnoses Not on filedocumented in this encounter Care Teams Automatic Outsole Cutter Relationship Specialty Start Date End Date Violeta Posada DO PCP - General 09/29/16 09/15/21 Spring Banerjee RN [address] [facility] [address] [place] [address] Car Washer 05/07/20 12/29/20 Dayana Marina LCSW [address] [facility] [address] [place], [place] [id number] Internal Sales Engineer 05/10/20 05/25/20 documented as of this encounter
--- OUTSIDE RECORDS SUMMARY | 2024-07-09 02:18 | XMS_ITS | Encounter Summary ---
Author Organization [facility] Home Care Servic es Address [address] [place] [address] Phone Care Team Providers Care Freezing Room Worker Name Role Phone Violeta Casillas Primary Care Provider + Spring Banerjee RN Unavailable [phone] Dayana Marina LCSW Unavailable [phone] Reason for Visit * Auth/Cert Specialty Diagnoses / Procedures Referred By Ignacia t Referred To Contact Referral ID Status Reason Start Date Expiration Date Visits Re quested Visits Authorized [id number] 1 1 Encounter Details Date Type Department Care Team (Late st Contact Info) Description 05/18/2020 9:15 AM FOOD AND BEVERAGE LEAD Home Care Visit [facility] Home Health [address] [address] Bindu Guillen RN SN HOME VISIT Social History Tobacco Use Types [...] How often do you attend chur or catholic services? Never 05/13/2020 Do you belong to any clubs o r organizations such as latter day groups, unions, fraternal or athletic groups, or [...] on file Legal Sex Male 3:40 AM FOOD AND BEVERAGE LEAD Gender Identity Not on file Sexual Orientation Not on file documented as of this encounter Last Filed Vital Signs Vital Sign Reading Time Taken Comments Blood Pressure 148/80 05/18/2020 9:15 AM FOOD AND BEVERAGE LEAD Pulse 65 05/18/2020 9:15 AM FOOD AND BEVERAGE LEAD Temperature 36.8 ??C (98.2 ??F) 05/18/2020 9:15 AM CS T Respiratory Rate 18 05/18/2020 9:15 AM FOOD AND BEVERAGE LEAD Oxygen Saturation 94% 05/18/2020 9:15 AM FOOD AND BEVERAGE LEAD Inhaled Oxygen Concentration - - Weight - - Height - - Body Mass Index - - documented in this encounter Plan of Treatment Not on file documented as of this encounter Visit Diagnoses Not on filedocumented in this encounter Home Health Visit - Care Plan Visit Details Visit Type -SN Home Visit Discipline -Halfway Problems Problem Description Start Date Status Goals Interve ntions Homebound Status Disciplines: Halfway, Physical Therapy Patient's homebound status 05/12/2020 Active 1 goal linked to scheduled/documen max intervention 1 goal intervention scheduled/document ed in this visit Medications Disciplines: Halfway, Physical Therapy Management of home medications 05/12/2020 Active 1 goal linked to scheduled/documen max intervention 2 goal interventions scheduled/document ed in this visit Monitor patient's vital signs every home health visit Disciplines: Halfway, Physical Therapy Monitor patient's vital signs every home health visit. 05/12/2020 Active 1 goal linked to scheduled/documen max intervention 1 goal intervention scheduled/document ed in this visit Fall Precautions/Sa fety Concerns Disciplines: Halfway, Physical Therapy Alteration in safety 05/12/2020 Active 1 goal linked to scheduled/documen max intervention 2 goal interventions scheduled/document ed in this visit Goals Goal Associated Problem Outcome Goal Met? Visit Notes Patient recieves care at the most appropriate care setting Description: Patient receives care at the most appropriate care setting. Homebound Status No Understand and follow medication therapy Description: Patient/caregiver will understand and follow prescribed medication therapy as evidence by having up to date medication list in home & ability to verbalize purpose, schedule, and side effects by the end of the episode of care Medications No Measure vital signs during every home health visit during episode of care Description: Home blind lacer to measure vital signs during every home health visit during episode of care. Monitor patient's vital signs every home health visit No Demonstrate use of safety precautions Description: Demonstrate use of safety precautions Fall Precautions/Safety Concerns No Interventions Intervention Associated Problem/Goal Status Variance [...] Completed Patient is homebound due to unsteady gait/poor balance, unable to negotiate stairs and fall risk as evidenced by WEAKNESS, HIGH FALL RISK AND SOB WITH EXERTION MAKING IT A TAXING EFFORT TO LEAVE THE HOME. Instruct on Medication Management Description: Instruct patient/caregiver in medication administration, purpose, dosages, preparation, scheduling, side effects, food/drug interactions, storage, drug allergies, and potential complications. Problem:Medications Goal:Understand and follow medication therapy Completed Patient instructed on medication administration, purpose, dosages, preparation, scheduling, side effects, food/drug interactions, and potential complications. Current regimen and compliance reviewed with Patient. Patient demonstrates ability to perform safe home medication administration if prepared in advance by another in med digital sales planner. Medications taught all. Instruct on High Risk Medications Description: Instruct patient/caregiver on high-risk/high-alert medications, including: anti-convulsant, anti-retroviral, anti-coagulant, chemotherapeutic, hypo-glycemic, immunosuppressant, insulin, and opioid. Problem:Medications Goal:Understand and follow medication therapy Completed Teaching High-risk/high-alert medications (specifically warfarin ) with Patient. Understanding verbalized Monitor Vital Signs Description: Monitor blood pressure, pulse, oxygen saturation, respirations Problem:Monitor patient's vital signs every home health visit Goal:Measure vital signs during every home health visit during episode of care Completed High Fall Risk Precautions Description: Instruct patient/caregiver in methods to prevent falls Problem:Fall Precautions/Safety Concerns Goal:Demonstrate use of safety precautions Completed SN EDUCATED PATIENT ON FALL PREVENTION SUCH KEEPING HALLWAYS CLEAR OF CLUTTER, TO HAVE ADEQUATE LIGHTING, WEARING SENSIBLE SHOES AND AVOIDING HIGH HEELS AND FLOPPY SLIPPERS AND SLIPPERY SURFACES, REMOVE ALL RUGS, AND TO USE ASSISTIVE DEVICES NEEDED AND HAND RAILS TO PREVENT FALLS. Understanding verbalized [place] Fall Precautions Description: Assess patient safety Problem:Fall Precautions/Safety Concerns Goal:Demonstrate use of safety precautions Completed documented in this encounter Home Health Visit - Actions and Narratives Actions Med digital sales planner filled by SN per prescribed orders. Med digital sales planner correct on sn departure. documented in this encounter Care Teams Freezing Room Worker Relationship Specialty Start Date End Date Violeta Casillas DO PCP - General 09/29/16 09/15/21 Spring Banerjee RN [address] [place] [address] Director Of Sales And Marketing 05/07/20 12/29/20 Dayana Marina LCSW [address] [place], [place] [id number] Seed Buyer 05/10/20 05/25/20 documented as of this encounter
--- OUTSIDE RECORDS SUMMARY | 2024-07-09 02:18 | XMS_ITS | Encounter Summary ---
Author Organization [facility] Home Care Servic es Address [address] [place] [address] Phone Care Team Providers Care Mini Bar Attendant Name Role Phone Violeta Casillas Primary Care Provider + Spring Banerjee RN Unavailable [phone] Dayana MarinaW Unavailable [phone] Reason for Visit * Auth/Cert Specialty Diagnoses / Procedures Referred By Contsylvester t Referred To Contact Referral ID Status Reason Start Date Expiration Date Visits Re quested Visits Authorized [id number] 1 1 Encounter Details Date Type Department Care Team (Late st Contact Info) Description 05/25/2020 3:00 PM SHEEP SORTER Home Care Visit [facility] Home Health [address] [address] Josiane Rodriguez PTA PT HOME [...] How often do you attend chur or druze services? Never 05/13/2020 Do you belong to any clubs o r organizations such as islam groups, unions, fraternal or athletic groups, or [...] on file Legal Sex Male 3:40 AM SHEEP SORTER Gender Identity Not on file Sexual Orientation Not on file documented as of this encounter Last Filed Vital Signs Vital Sign Reading Time Taken Comments Blood Pressure 138/80 05/25/2020 4:25 PM SHEEP SORTER Pulse 67 05/25/2020 4:25 PM SHEEP SORTER Temperature 36.8 ??C (98.2 ??F) 05/25/2020 4:25 PM CS T Respiratory Rate 18 05/25/2020 4:25 PM SHEEP SORTER Oxygen Saturation 93% 05/25/2020 4:25 PM SHEEP SORTER Inhaled Oxygen Concentration - - Weight - [...] Status Goals Interve ntions Homebound Status Disciplines: Jail, Physical Therapy Patient's homebound status 05/12/2020 Active 1 goal linked to scheduled/documen max intervention 1 goal intervention scheduled/document ed in this visit Monitor patient's vital signs every home health visit Disciplines: Jail, Physical Therapy Monitor patient's vital signs every home health visit. 05/12/2020 Active 1 goal linked to scheduled/documen max intervention 1 goal intervention scheduled/document ed in this visit PT Impaired Functional Mobility/Balanc e Disciplines: Physical Therapy Impaired functional mobility/balance 05/14/2020 Active - 2 problem interventions scheduled/document ed in this visit Goals Goal Associated Problem Outcome Goal Met? Visit Notes Patient recieves care at the most appropriate care setting Description: Patient receives care at the most appropriate care setting. Homebound Status No Measure vital signs during every home health visit during episode of care Description: Home art tracer to measure vital signs during every home [...] is homebound due to unsteady gait/poor balance, fall risk, increased dyspnea w/ minimal exertion, taxing effott to leave home. Monitor Vital Signs Description: Monitor blood pressure, pulse, oxygen saturation, respirations Problem:Monitor patient's vital signs every home health visit Goal:Measure vital signs during every home health visit during episode of care Completed Gait/Stair Training Description: Instruct patient/caregiver and perform gait/stair training. Problem:PT Impaired Functional Mobility/Balance Completed Therapeutic Exercise Description: Perform therapeutic exercise, progressing as tolerated. Problem:PT Impaired Functional Mobility/Balance Completed documented in this encounter Home Health Visit - Actions and Narratives Actions At visit, discussion w/patie nt regarding scheduling of upcoming tx Narratives Patient anthony all tx well. He continues to tire easily and to require rests during tx but is a willing participant in all activity. Continue 2x/wk as per orders. documented in this encounter Care Teams Mini Bar Attendant Relationship Specialty Start Date End Date Violeta Casillas DO PCP - General 09/29/16 09/15/21 Spring Banerjee, RN [address] [place], [place] [phone] Refining Machine Operator 05/07/20 12/29/20 Dayana Marina, STOCKING INSPECTOR [address] [place], [place] [phone] Health Care Recruiter 05/10/20 05/25/20 documented as of this encounter
--- OUTSIDE RECORDS SUMMARY | 2024-07-09 02:18 | XMS_ITS | Encounter Summary ---
Author Organization [facility] Address [address] [facility] [address] [place] [address] Care Team Providers Care System Architect Name Role Phone Violeta Casillas DO Primary Care Provider + Spring Banerjee RN Unavailable [phone] Encounter Details Date Type Department Care Team (Late st Contact Info) Description 06/09/2020 Orders Only [facility] Medical [facility] [address] [place] [id number] Violeta Casillas DO [address] [place], [place] [id number] Social History Tobacco Use Types Packs/Day Years [...] often do you attend chur ch or christian services? Never 05/13/2020 Do you belong to any clubs o r organizations such as baptism groups, unions, fraternal or athletic groups, or [...] on file Legal Sex Male 3:40 AM WINK CUTTER OPERATOR Gender Identity Not on file Sexual Orientation Not on file documented as of this encounter Ordered Prescriptions Prescription Sig Dispense Quantity Refills Last Filled Start Date End Date warfarin (COUMADIN) 5 mg tabletIndications: VTE Prophylaxis Take a total of 8mg by mouth daily. May mix other forms of warfarin to get sum of 8mg. 90 tablet 1 06/09/2020 1 warfarin (COUMADIN) 1 mg tabletIndications: VTE Prophylaxis Take a total of 8mg by mouth daily. May mix other forms of warfarin to get sum of 8mg. 180 tablet 1 06/09/2020 1 documented in this encounter Plan of Treatment Not on file documented as of this encounter Visit Diagnoses Not on filedocumented in this encounter Discontinued Medications Medication Sig Discontinue Reason Start Date End Da te warfarin (COUMADIN) 1 mg tablet [The details of the medication are not available because there are pending changes by a home health clinician.] Reorder 06/03/2020 06/09/2020 warfarin (COUMADIN) 5 mg tablet [The details of the medication are not available because there are pending changes by a home health clinician.] Reorder 06/03/2020 06/09/2020 warfarin (COUMADIN) 1 mg tablet [The details of the medication are not available because there are pending changes by a home health clinician.] Reorder 06/03/2020 06/09/2020 warfarin (COUMADIN) 5 mg tablet [The details of the medication are not available because there are pending changes by a home health clinician.] Reorder 06/03/2020 06/09/2020 documented as of this encounter Care Teams System Architect Relationship Specialty Start Date End Date Violeta Casillas DO PCP - General 09/29/16 09/15/21 Spring Banerjee, TIFFANY [address] [place] [address] [address] [place] [id number] Finishing Manager 05/07/20 12/29/20 documented as of this encounter
--- OUTSIDE RECORDS SUMMARY | 2024-07-09 02:18 | XMS_ITS | Encounter Summary ---
Author Organization [facility] Home Care [facility]ic es Address [address] [place] [address] Phone Care Team Providers Care Ticket Printer Name Role Phone Violeta Casillas Primary Care Provider + Spring Banerjee RN Unavailable [phone] Dayana MarinaW Unavailable [phone] Reason for Visit * Auth/Cert Specialty Diagnoses / Procedures Referred By Ignacia t Referred To Contact Referral ID Status Reason Start Date Expiration Date Visits Re quested Visits Authorized [id number] 1 1 Encounter Details Date Type Department Care Team (Latest Contact Info) Description 05/14/2020 10:30 AM DUMB WAITER OPERATOR Home Care Visit [facility] [address] [address] Yakelin Landon, PT PT INITIAL EVALUATION Social History Tobacco Use Types Packs/Day Years [...] any clubs o r organizations such as rastafari groups, unions, fraternal or athletic groups, or [...] on file Legal Sex Male 3:40 AM DUMB WAITER OPERATOR Gender Identity Not on file Sexual Orientation Not on file documented as of this encounter Last Filed Vital Signs Vital Sign Reading Time Taken Comments Blood Pressure 148/78 05/14/2020 10:15 AM DUMB WAITER OPERATOR Pulse 80 05/14/2020 10:15 AM DUMB WAITER OPERATOR Temperature 36.8 ??C (98.3 ??F) 05/14/2020 10:[address] Respiratory Rate 18 05/14/2020 10:15 AM DUMB WAITER OPERATOR Oxygen Saturation 96% 05/14/2020 10:15 AM DUMB WAITER OPERATOR Inhaled Oxygen Concentration - - Weight - - Height - - Body Mass Index - - documented in this encounter Plan of Treatment Not on file documented as of this encounter Visit Diagnoses Not on filedocumented in this encounter Home Health Visit - Care Plan Visit Details Visit Type -PT Initial Evalu ation Discipline -Physical Therapy Problems Problem Description Start [...] intervention scheduled/document ed in this visit Fall Precautions/Saf ety Concerns Disciplines: Long-Term, Physical Therapy Alteration in safety 05/12/2020 Active 1 goal linked to scheduled/documen max intervention 2 goal interventions scheduled/document ed in this visit PT Activity Tolerance/Energ y Conservation Disciplines: Physical Therapy Impaired activity tolerance for functional activity 05/14/2020 Active - 1 problem intervention scheduled/document ed in this visit PT Impaired Functional Mobility/Balanc e Disciplines: Physical Therapy Impaired functional mobility/balance 05/14/2020 Active - 5 problem interventions scheduled/document ed in this visit Goals Goal Associated Problem Outcome Goal Met? Visit Notes Patient recieves care at the most appropriate care setting Description: Patient receives care at the most appropriate care setting. Homebound Status No Measure vital signs during every home health visit during episode of care Description: Home dye tub tender to measure vital signs during every home [...] setting Completed Patient is homebound due to UNSTEADY GAIT, NEEDS ASSIST WITH TRANSFERS, NEEDS ASSIST TO SAFELY ENTER/EXIT HOME, HIGH FALL RISK PER TINETTI Monitor Vital Signs Description: Monitor blood pressure, pulse, oxygen saturation, respirations Problem:Monitor patient's vital signs every home health visit Goal:Measure vital signs during every home health visit during episode of care Completed High Fall Risk Precautions Description: Instruct patient/caregiver in methods to prevent falls Problem:Fall Precautions/Safety Concerns Goal:Demonstrate use of safety precautions Completed [place] Fall Precautions Description: Assess patient safety Problem:Fall [...] Completed documented in this encounter Care Teams Ticket Printer Relationship Specialty Start Date End Date Violeta CasillasDO PCP - General 09/29/16 09/15/21 Spring Banerjee RN [address] [place], [place] [phone] Banquet Lead 05/07/20 12/29/20 Dayana Marina LCSW [address] [place] [address] Obiee Obia Solution Architect 05/10/20 05/25/20 documented as of this encounter
--- OUTSIDE RECORDS SUMMARY | 2024-07-09 02:18 | XMS_ITS | Encounter Summary ---
Author Organization [facility] Home Care [facility] es Address [address] [place] [address] Phone Care Team Providers Care Patient Financial Services Specialist Name Role Phone Violeta Casillas Primary Care Provider + Spring Banerjee RN Unavailable [phone] Dayana Marina LCSW Unavailable [phone] Reason for Visit * Auth/Cert Specialty Diagnoses / Procedures Referred By Contsylvester t Referred To Contact Referral ID Status Reason Start Date Expiration Date Visits Re quested Visits Authorized [id number] 1 1 Encounter Details Date Type Department Care Team (Late st Contact Info) Description 05/25/2020 Home Care Visit [facility] Home Health [address] [phone] Alana Aguirre RN TRAVEL SCREENING CASE COMMUNICATION Social History Tobacco [...] any clubs o r organizations such as episcopal groups, unions, fraternal or athletic groups, or [...] on file Legal Sex Male 3:40 AM LICENSED PSYCHOLOGIST MANAGER Gender Identity Not on file Sexual Orientation Not on file documented as of this encounter Plan of Treatment Not on file documented as of this encounter Visit Diagnoses Not on filedocumented in this encounter Care Teams Patient Financial Services Specialist Relationship Specialty Start Date End Date Violeta Casillas DO PCP - General 09/29/16 09/15/21 Spring Banerjee RN [address] [place], [place] [phone] Chucking Machine Set Up Operator Tool 05/07/20 12/29/20 Dayana Marina LCSW [address] [place] [address] Ferry Terminal Supervisor 05/10/20 05/25/20 documented as of this encounter
--- OUTSIDE RECORDS SUMMARY | 2024-07-09 02:18 | XMS_ITS | Encounter Summary ---
Author Organization [facility] Home Care Servic es Address [address] [place] [address] Phone Care Team Providers Care Bar Host Name Role Phone Violeta Casillas Primary Care Provider + Spring Banerjee RN Unavailable [phone] Reason for Visit * Auth/Cert Specialty Diagnoses / Procedures Referred By Ignacia t Referred To Contact Referral ID Status Reason Start Date Expiration Date Visits Re quested Visits Authorized [id number] 1 1 Encounter Details Date Type Department Care Team (Late st Contact Info) Description 06/09/[address] [facility] Home Health - [address] [phone] Alana Aguirre, TIFFANY C[facility] CONFERENCE Social History Tobacco Use Types Packs/Day Years [...] often do you attend chur ch or anabaptism services? Never 05/13/2020 Do you belong to any clubs o r organizations such as episcopalian groups, unions, fraternal or athletic groups, or [...] on file Legal Sex Male 3:40 AM SHIRT SEWER Gender Identity Not on file Sexual Orientation Not on file documented as of this encounter Plan of Treatment Not on file documented as of this encounter Visit Diagnoses Not on filedocumented in this encounter Care Teams Bar Host Relationship Specialty Start Date End Date Violeta Casillas DO PCP - General 09/29/16 09/15/21 Spring Banerjee RN [address] [place] [address] [address] [place] [id number] Crna 05/07/20 12/29/20 documented as of this encounter
--- OUTSIDE RECORDS SUMMARY | 2024-07-09 02:18 | XMS_ITS | Encounter Summary ---
Author Organization [facility] Home Care Servic es Address [address] [place] [address] Phone Care Team Providers Care Decontamination Technician Name Role Phone Violeta Casillas Primary Care Provider + Spring Banerjee RN Unavailable [phone] Dayana MarinaW Unavailable [phone] Reason for Visit * Auth/Cert Specialty Diagnoses / Procedures Referred By Contsylvester t Referred To Contact Referral ID Status Reason Start Date Expiration Date Visits Re quested Visits Authorized [id number] 1 1 Encounter Details Date Type Department Care Team (Late st Contact Info) Description 05/17/2020 Home Care Visit [facility] Home Health [address] [address] Josiane Rodriguez PTA TRAVEL SCREENING CASE COMMUNICATION Social History Tobacco [...] often do you attend chur ch or evangelical services? Never 05/13/2020 Do you belong to any clubs o r organizations such as moravian groups, unions, fraternal or athletic groups, or [...] on file Legal Sex Male 3:40 AM SAFETY ADMIN ASSISTANT Gender Identity Not on file Sexual Orientation Not on file documented as of this encounter Plan of Treatment Not on file documented as of this encounter Visit Diagnoses Not on filedocumented in this encounter Care Teams Decontamination Technician Relationship Specialty Start Date End Date Violeta Casillas DO PCP - General 09/29/16 09/15/21 Spring Banerjee RN [address] [place], [place] [phone] Method Consultant 05/07/20 12/29/20 Dayana Marina LCSW [address] [place] [address] Office Clerk Routine 05/10/20 05/25/20 documented as of this encounter
--- OUTSIDE RECORDS SUMMARY | 2024-07-09 02:18 | XMS_ITS | Encounter Summary ---
Author Organization [facility] Address [address] [place] [address] Care Team Providers Care Building Official Name Role Phone Violeta Casillas Primary Care Provider + Spring Banerjee RN Unavailable [phone] Reason for Visit * Reason Onset Date Comments Patient issue/concern 07/20/2020 Encounter Details Date Type Department Care Team (Late st Contact Info) Description 07/20/2020 Telephone [facility] [address] [place] [address] Spring Banerjee, TIFFANY [address] [place] [address] [address] [place] [address] Patient issue/concern Social History Tobacco Use Types Packs/Day Years [...] often do you attend chur ch or baptist services? Never 05/13/2020 Do you belong to [...] on file Legal Sex Male 3:40 AM BUSINESS DEVELOPMENT PROFESSIONAL Gender Identity Not on file Sexual Orientation Not on file documented as of this encounter Miscellaneous Notes * Telephone Encounter - Ruth Farmer LPN - 07/21/2020 3:21 PM CST Med list faxed to pharmacy NESS DEVELOPMENT PROFESSIONAL * Telephone Encounter - Violeta Casillas DO - 07/21/2020 12:55 PM BUSINESS DEVELOPMENT PROFESSIONAL Please fax pharmacy current list and/or prescriptions as needed. NESS DEVELOPMENT PROFESSIONAL * Telephone Encounter - Spring Banerjee RN - 07/21/2020 9:07 AM BUSINESS DEVELOPMENT PROFESSIONAL Pill packets can be mailed to the pt (for free) from [facility]. Pt has agreed to change his pharmacy. [facility] will need pt's current med list, face sheet, and insurance information faxed to Yakelin at [phone]. -- please have have your office staff fax this. FYI This Pharmacy has recommended pt be enrolled into their Sink Program. This program will contactyour office monthly to assess for changes to pt's Coumadin dosing. -- pt has agreed to this too Mariana will set this up. THANK YOU Spring HAQUE RN [facility] Engineering Teacher [phone] NESS DEVELOPMENT PROFESSIONAL * Telephone Encounter - Violeta Casillas DO - 07/20/2020 6:21 PM BUSINESS DEVELOPMENT PROFESSIONAL How do I do pill packs? He is so unreliable I need the home INR to keep warfarin in correct, safe range. Other meds are extremely expensive. NESS DEVELOPMENT PROFESSIONAL * Telephone Encounter - Spring Banerjee RN - 07/20/2020 12:32 PM BUSINESS DEVELOPMENT PROFESSIONAL I spoke with the [facility] Complex Care Patient for routine outreach and identified multiple concerns outlined here. Additional details can be found in my note if needed. 1) Pt feels dizzy with position changes. He has had several near falls. Pt is dizzy with position changes. Pt reports that he has been dizzy for months and that this is not getting worse. Encouraged increased water intake. 2) Concern for medication non-compliance: Attempted to review pt's meds with him; pt declined this.Pt has no one to fill out his pill box now that home health has stopped coming to the house. Reports, 'I am doing a bad job' of filling his pill box. This pt would be a good candidate for pill packets or a medication dispenser. Can this be addressedwith pt at upcoming appt on 07/28? 3) Pt reports struggling to afford the INR Co-pay of 50$. Is there a cheaper option for this pt to be safely anti-coagulated? Next PCP appt on 07/28/20 Please let me know how I can assist in the care of this patient. Spring HAQUE RN [facility] Engineering Teacher [phone] NESS DEVELOPMENT PROFESSIONAL documented in this encounter Plan of Treatment Not on file documented as of this encounter Visit Diagnoses Not on filedocumented in this encounter Care Teams Building Official Relationship Specialty Start Date End Date Violeta Casillas DO PCP - General 09/29/16 09/15/21 Spring Banerjee RN [address] [place] [address] DR MC[address] [place] [id number] Engineering Teacher 05/07/20 12/29/20 documented as of this encounter
--- OUTSIDE RECORDS SUMMARY | 2024-07-09 02:18 | XMS_ITS | Encounter Summary ---
Author Organization [facility] Address [address] [place] [address] Phone Care Team Providers Care Wireworker Name Role Phone Violeta Casillas Primary Care Provider + Spring Banerjee RN Unavailable [phone] Dayana Marina LCSW Unavailable [phone] Reason for Visit * Auth/Cert Specialty Diagnoses / Procedures Referred By Contsylvester t Referred To Contact Referral ID Status Reason Start Date Expiration Date Visits Re quested Visits Authorized [id number] 1 1 Encounter Details Date Type Department Care Team (Late st Contact Info) Description 05/18/[address] [facility] Home Health [address] [phone] Bindu Guillen SERVICE COORDINATOR SCREENING CASE COMMUNICATION Social History Tobacco Use [...] often do you attend chur ch or protestant services? Never 05/13/2020 Do you belong to any clubs o r organizations such as catholic groups, unions, fraternal or athletic groups, [...] on file Legal Sex Male 3:40 AM LETTERSET PRESS SET UP OPERATOR Gender Identity Not on file Sexual Orientation Not on file documented as of this encounter Plan of Treatment Not on file documented as of this encounter Visit Diagnoses Not on filedocumented in this encounter Care Teams Wireworker Relationship Specialty Start Date End Date Violeta Casillas DO PCP - General 09/29/16 09/15/21 Spring Banerjee RN [address] [place] [address] Underwriter Mortgage Loan 05/07/20 12/29/20 Dayana Marina LCSW [address] [place] [address] Consultants Intern 05/10/20 05/25/20 documented as of this encounter
--- OUTSIDE RECORDS SUMMARY | 2024-07-09 02:18 | XMS_ITS | Encounter Summary ---
Author Organization [facility] Healthcare Address [address] [place] [address] Care Team Providers Care Turret Press Operator Name Role Phone Violeta Casillas DO Primary Care Provider + Spring Banerjee RN Unavailable [phone] Encounter Details Date Type Department Care Team (Late st Contact Info) Description 07/28/2020 1:35 PM DIPPER OPERATOR Lab [address] [phone] Hypertension, essential; Pure hypercholesterolemia Social History Tobacco Use Types [...] often do you attend chur ch or restoration services? Never 05/13/2020 Do you belong to any clubs o r organizations such as druze groups, unions, fraternal or athletic groups, or [...] on file Legal Sex Male 3:40 AM DIPPER OPERATOR Gender Identity Not on file Sexual Orientation Not on file documented as of this encounter Miscellaneous Notes * Result Encounter Note - Violeta Casillas DO - 07/28/2020 8:00 PM DIPPER OPERATOR Labs ok. No changes. ER OPERATOR documented in this encounter Plan of Treatment Not on file documented as of this encounter Procedures Procedure Name Priority Date/Time Associated Diagnosis Comments GLUCOSE, RANDOM (OUTREACH) Routine 07/28/2020 10:15 AM DIPPER OPERATOR Hypertension, essential EGFR Routine 07/28/2020 10:15 AM DIPPER OPERATOR Hypertension, essential COMPREHENSIVE METABOLIC PANEL WITHOUT GLUCOSE (OUTREACH) Routine 07/28/2020 10:15 AM DIPPER OPERATOR Hypertension, essential COMPREHENSIVE METABOLIC PANEL (OUTREACH) Routine 07/28/2020 10:15 AM DIPPER OPERATOR Hypertension, essential TSH Routine 07/28/2020 10:15 AM DIPPER OPERATOR Hypertension, essential Pure hypercholesterolemia CHOLESTEROL, LDL, DIRECT Routine 07/28/2020 10:15 AM DIPPER OPERATOR Hypertension, essential Pure hypercholesterolemia documented in this encounter Results * eGFR (07/28/2020 10:15 AM DIPPER OPERATOR) Pathologist [facility] [place] [facility] Glomerular Filtration Rate - non -Estonian >60 mL/min/1.7 3 m2 [facility] Comment: Interpretive Data Decrease in GFR ?? GFR (mL/min/1.73m2) ?? Significance. Normal to Mild ?Greater than 60 ? Normal, or near normal. Moderate ?15 - 60 ? Calculated GFR of less ?than 60 suggests chronic ?kidney disease,if found ?over a 3 month period. Severe ?Less than 15 ?Renal Failure. Current interpretive data was last revised on 2012. Glomerular Filtration Rate - -Estonian >60 mL/min/1.7 3 m2 [facility] Blood specimen (specimen) 07/28/2020 10:15 AM DIPPER OPERATOR 07/28/2020 1:33 PM DIPPER OPERATOR us Violeta Casillas DO LAB BLOOD ORDERABLES Fin al Result [facility] [address] [facility] Department [place] [address] * Glucose, random (Outreach) (07/28/2020 10:15 AM DIPPER OPERATOR) [facility] Glucose 107 70 - 199 mg/dL [facility] Comment: Interpretive Data Fasting glucose >/= 126 mg/dl is diagnostic for diabetes. ?? Fasting is defined as no caloric intake for at least 8 hours. Fasting glucose between 100 mg/dl to 125 mg/dl is diagnostic of prediabetes. In a patient with classic symptoms of hyperglycemia or hyperglycemic crisis, a random glucose >/= 200 mg/dl is diagnostic for diabetes. In the absence of unequivocal hyperglycemia, results should be confirmed by repeat testing. The classification and Diagnosis of Diabetes Diabetes Care 2017;40 (Suppl. 1):S11. Current interpretive data was last revised 2017. Blood specimen (specimen) 07/28/2020 10:15 AM DIPPER OPERATOR 07/28/2020 1:33 PM DIPPER OPERATOR Narrative [facility] - 07/28/2020 2:43 PM DIPPER OPERATOR Not fasting us Violeta Casillas DO LAB BLOOD ORDERABLES Fin al Result [facility] [address] [facility] [place] [address] * Comprehensive metabolic panel, without glucose (Outreach) (07/28/2020 10:15 AM DIPPER OPERATOR) Sodium 137 135 - 145 mmol/L [facility] Potassium, pl 4.7 3.3 - 4.9 mmol/L [facility] Chloride 102 97 - 110 mmol/L [facility] CO2 28 22 - 32 mmol/L [facility] Anion gap 7 2 - 15 mmol/L [facility] BUN 20 8 - 25 mg/dL [facility] Creatinine 1.10 0.80 - 1.30 mg/dL [facility] Calcium 9.8 8.5 - 10.3 mg/dL [facility] Protein, pl 7.7 6.5 - 8.5 g/dL [facility] Albumin 4.6 3.5 - 5.2 g/dL [facility] Bilirubin, total 0.8 0.1 - 1.2 mg/dL [facility] Alk phos 125 40 - 130 Units/L [facility] AST 23 10 - 50 Units/L [facility] ALT 19 7 - 55 Units/L [facility] Blood specimen (specimen) 07/28/2020 10:15 AM DIPPER OPERATOR 07/28/2020 1:33 PM DIPPER OPERATOR Narrative [facility] - 07/28/2020 2:25 PM DIPPER OPERATOR Not fasting Violeta Casillas DO LAB BLOOD ORDERABLES Fin al Result Performing Organization Address [facility] de Phone Number [facility] [address] [place] [address] * (ABNORMAL) TSH (07/28/2020 10:15 AM DIPPER OPERATOR) Thyroid Stimulating Hormone 0.26(L) 0.30 - 4.20 mcIUnit/mL [facility] Blood specimen (specimen) 07/28/2020 10:15 AM DIPPER OPERATOR 07/28/2020 1:33 PM DIPPER OPERATOR Violeta Casillas DO LAB BLOOD ORDERABLES Fin al Result Performing Organization Address [facility] de Phone Number [facility] [address] [place] [address] * Cholesterol, LDL, direct (07/28/2020 10:15 AM DIPPER OPERATOR) LDL Cholesterol, Direct 95 <=129 mg/dL [facility] Comment: Interpretive Data Ages < or = [...] 2018. Blood specimen (specimen) 07/28/2020 10:15 AM DIPPER OPERATOR 07/28/2020 1:33 PM DIPPER OPERATOR us Violeta Casillas DO LAB BLOOD ORDERABLES Fin al Result [facility] [address] Department [place] [address] documented in this encounter Visit Diagnoses Diagnosis Hypertension, essential Unspecified essential hypertension Pure hypercholesterolemia documented in this encounter Care Teams Turret Press Operator Relationship Specialty Start Date End Date Violeta Casillas DO PCP - General 09/29/16 09/15/21 Spring Banerjee, TIFFANY [address] [place] [address] [address] [place] [address] Knurling Machine Operator 05/07/20 12/29/20 documented as of this encounter
--- OUTSIDE RECORDS SUMMARY | 2024-07-09 02:18 | XMS_ITS | Encounter Summary ---
Author Organization [facility] Address [address] [place] [address] Phone Care Team Providers Care Supervisor Train Operations Name Role Phone Violeta Casillas Primary Care Provider + Spring Banerjee RN Unavailable [phone] Reason for Visit * Auth/Cert Specialty Diagnoses / Procedures Referred By Ignacia t Referred To Contact Referral ID Status Reason Start Date Expiration Date Visits Re quested Visits Authorized [id number] 1 1 Encounter Details Date Type Department Care Team (Late st Contact Info) Description 06/08/2020 Home Care Visit [facility] Home Health - [address] [phone] Alana Aguirre RN TELEPHONE ENCOUNTER Social History Tobacco Use Types Packs/Day Years [...] often do you attend chur ch or quaker services? Never 05/13/2020 Do you belong to any clubs o r organizations such as latter-day groups, unions, fraternal or athletic groups, or [...] on file Legal Sex Male 3:40 AM PESTICIDE CONTROL INSPECTOR Gender Identity Not on file Sexual Orientation Not on file documented as of this encounter Plan of Treatment Not on file documented as of this encounter Visit Diagnoses Not on filedocumented in this encounter Care Teams Supervisor Train Operations Relationship Specialty Start Date End Date Violeta Casillas DO PCP - General 09/29/16 09/15/21 Spring Banerjee RN [address] [place] [address] [address] [place] [id number] Producer 05/07/20 12/29/20 documented as of this encounter
--- OUTSIDE RECORDS SUMMARY | 2024-07-09 02:18 | XMS_ITS | Encounter Summary ---
Author Organization [facility] Address [address] [place] [address] Phone Care Team Providers Care Wire Mesh Knitter Name Role Phone Violeta Casillas Primary Care Provider + Spring Banerjee RN Unavailable [phone] Dayana MarinaW Unavailable [phone] Reason for Visit * Auth/Cert Specialty Diagnoses / Procedures Referred By Contsylvester t Referred To Contact Referral ID Status Reason Start Date Expiration Date Visits Re quested Visits Authorized [id number] 1 1 Encounter Details Date Type Department Care Team (Late st Contact Info) Description 05/17/2020 3:00 PM BOOK EDITOR Home Care Visit [facility] Home Health [address] [phone] Josiane Rodriguez PTA PT HOME [...] How often do you attend chur or christianity services? Never 05/13/2020 Do you [...] on file Legal Sex Male 3:40 AM BOOK EDITOR Gender Identity Not on file Sexual Orientation Not on file documented as of this encounter Last Filed Vital Signs Vital Sign Reading Time Taken Comments Blood Pressure 160/70 05/17/2020 3:15 PM BOOK EDITOR Pulse 76 05/17/2020 3:15 PM BOOK EDITOR Temperature 36.4 ??C (97.5 ??F) 05/17/2020 3:15 PM CS T Respiratory Rate 18 05/17/2020 3:15 PM BOOK EDITOR Oxygen Saturation 93% 05/17/2020 3:15 PM BOOK EDITOR Inhaled Oxygen Concentration - - Weight - [...] Status Goals Interve ntions Homebound Status Disciplines: Custodial, Physical Therapy Patient's homebound status 05/12/2020 Active 1 goal linked to scheduled/documen max intervention 1 goal intervention scheduled/document ed in this visit Monitor patient's vital signs every home health visit Disciplines: Custodial, Physical Therapy Monitor patient's vital signs every [...] visit during episode of care Description: Home milking machine mechanic to measure vital signs during every home [...] due to unsteady gait/poor balance, fall risk, decreased mobility, increased dyspnea w/minimal activity, taxing effort to leave home. Monitor Vital Signs Description: [...] w / Yakelin Landon PT regarding patient's plan of care. At visit, discussion w/ patient regarding scheduling of upcoming txs. Narratives Patient anthony tx fair to well. He tires easily and has increased dyspnea w/ minimal activity. Concern over small dog that lives with patient due to her being very hyper. Continue 2x/wk as per orders. documented in this encounter Care Teams Wire Mesh Knitter Relationship Specialty Start Date End Date Violeta Casillas PCP - General 09/29/16 09/15/21 Spring Banerjee RN [address] [place] [address] Plastic Joint Maker 05/07/20 12/29/20 Dayana Marina, MIKO [address] [place] [address] Single Pointed Operator 05/10/20 05/25/20 documented as of this encounter
--- OUTSIDE RECORDS SUMMARY | 2024-07-09 02:18 | XMS_ITS | Encounter Summary ---
Author Organization [facility] Home Care Serv[facility] es Address [address] [place] [address] Phone Care Team Providers Care Kinesiology Internship Name Role Phone Violeta Casillas Primary Care Provider + Spring Banerjee RN Unavailable [phone] Reason for Visit * Auth/Cert Specialty Diagnoses / Procedures Referred By Ignacia t Referred To Contact Referral ID Status Reason Start Date Expiration Date Visits Re quested Visits Authorized [id number] 1 1 Encounter Details Date Type Department Care Team (Late st Contact Info) Description 06/08/2020 Home Care Visit [facility] Home Health - [address] [phone] Alana Aguirre RN TRAVEL SCREENING [...] often do you attend chur ch or buddhism services? Never 05/13/2020 Do you belong to any clubs o r organizations such as alevism groups, unions, fraternal or athletic groups, or [...] on file Legal Sex Male 3:40 AM INDUSTRIAL GAS SERVICER Gender Identity Not on file Sexual Orientation Not on file documented as of this encounter Plan of Treatment Not on file documented as of this encounter Visit Diagnoses Not on filedocumented in this encounter Care Teams Kinesiology Internship Relationship Specialty Start Date End Date Violeta Casillas DO PCP - General 09/29/16 09/15/21 Spring Banerjee RN [address] [place] [address] [address] [place] [address] Radiation Control Health Physicist 05/07/20 12/29/20 documented as of this encounter
--- OUTSIDE RECORDS SUMMARY | 2024-07-09 02:18 | XMS_ITS | Encounter Summary ---
Author Organization [facility] Address [address] [place] [address] Phone Care Team Providers Care Limousine Driver Name Role Phone Violeta Casillas Primary Care Provider + Spring Banerjee RN Unavailable [phone] Dayana MarinaW Unavailable [phone] Reason for Visit * Auth/Cert Specialty Diagnoses / Procedures Referred By Contsylvester t Referred To Contact Referral ID Status Reason Start Date Expiration Date Visits Re quested Visits Authorized [id number] 1 1 Encounter Details Date Type Department Care Team (Late st Contact Info) Description 05/19/2020 Home Care Visit [facility] Home Health [address] [phone] Josiane Rodriguez PTA TRAVEL SCREENING [...] on file Legal Sex Male 3:40 AM HIM ANALYST Gender Identity Not on file Sexual Orientation Not on file documented as of this encounter Plan of Treatment Not on file documented as of this encounter Visit Diagnoses Not on filedocumented in this encounter Care Teams Limousine Driver Relationship Specialty Start Date End Date Violeta Casillas DO PCP - General 09/29/16 09/15/21 Spring Banerjee RN [address] [facility] [address] [place], [place] [id number] Tufting Machine Fixer 05/07/20 12/29/20 Dayana Marina LCSW [address] [address] [place] [address] Director Of Pupil Personnel Program 05/10/20 05/25/20 documented as of this encounter
--- OUTSIDE RECORDS SUMMARY | 2024-07-09 02:18 | XMS_ITS | Encounter Summary ---
Author Organization [facility] Care [facility] Address [address] [place] [address] Phone Care Team Providers Care Stakes Player Name Role Phone Violeta Casillas Primary Care Provider + Spring Banerjee RN Unavailable [phone] Reason for Visit * Auth/Cert Specialty Diagnoses / Procedures Referred By Ignacia t Referred To Contact Referral ID Status Reason Start Date Expiration Date Visits Re quested Visits Authorized [id number] 1 1 Encounter Details Date Type Department Care Team (Late st Contact Info) Description 06/11/2020 Home Care Visit [facility] Home Health - [address] [phone] Yakelin Landon, PT TRAVEL SCREENING CASE COMMUNICATION Social History Tobacco [...] on file Legal Sex Male 3:40 AM RUBBER GASKET INSPECTOR TRIMMER Gender Identity Not on file Sexual Orientation Not on file documented as of this encounter Plan of Treatment Not on file documented as of this encounter Visit Diagnoses Not on filedocumented in this encounter Care Teams Stakes Player Relationship Specialty Start Date End Date Violeta Casillas DO PCP - General 09/29/16 09/15/21 Spring Banerjee RN [address] [place] [address] [address] [place] [address] Scale Assembly Set Up Worker 05/07/20 12/29/20 documented as of this encounter
--- OUTSIDE RECORDS SUMMARY | 2024-07-09 02:18 | XMS_ITS | Encounter Summary ---
Author Organization [facility] Home Care [facility] Address [address] [place] [address] Phone Care Team Providers Care Special Education Supervisor Name Role Phone Violeta Casillas Primary Care Provider + Spring Banerjee RN Unavailable [phone] Dayana MarinaW Unavailable [phone] Reason for Visit * Auth/Cert Specialty Diagnoses / Procedures Referred By Contsylvester t Referred To Contact Referral ID Status Reason Start Date Expiration Date Visits Re quested Visits Authorized [id number] 1 1 Encounter Details Date Type Department Care Team (Late st Contact Info) Description 05/25/2020 Home Care Visit [facility] Home Health [address] [phone] Josiane Rodriguez PTA TRAVEL SCREENING [...] often do you attend chur ch or muslim services? Never 05/13/2020 Do you belong to [...] on file Legal Sex Male 3:40 AM CUT TOBACCO BULKER Gender Identity Not on file Sexual Orientation Not on file documented as of this encounter Plan of Treatment Not on file documented as of this encounter Visit Diagnoses Not on filedocumented in this encounter Care Teams Special Education Supervisor Relationship Specialty Start Date End Date Violeta Casillas DO PCP - General 09/29/16 09/15/21 Spring Banerjee RN [address] [facility] [address] [place], [place] [id number] Gasoline Truck Crane Operator 05/07/20 12/29/20 Dayana Marina LCSW [address] [facility] [address] [place] [address] Storage Engineer 05/10/20 05/25/20 documented as of this encounter
--- OUTSIDE RECORDS SUMMARY | 2024-07-09 02:18 | XMS_ITS | Encounter Summary ---
Author Organization [facility] Home Care Servic es Address [address] [place] [address] Phone Care Team Providers Care Brake Reliner Name Role Phone Violeta Casillas Primary Care Provider + Spring Banerjee RN Unavailable [phone] Reason for Visit * Auth/Cert Specialty Diagnoses / Procedures Referred By Ignacia t Referred To Contact Referral ID Status Reason Start Date Expiration Date Visits Re quested Visits Authorized [id number] 1 1 Encounter Details Date Type Department Care Team (Late st Contact Info) Description 06/07/2020 Home Care Visit [facility] Home Health - [address] [address] Josiane Rodriguez, [facility] TRAVEL SCREENING CASE COMMUNICATION Social [...] often do you attend chur ch or hindu services? Never 05/13/2020 Do you belong to [...] on file Legal Sex Male 3:40 AM SLAB WORKER Gender Identity Not on file Sexual Orientation Not on file documented as of this encounter Plan of Treatment Not on file documented as of this encounter Visit Diagnoses Not on filedocumented in this encounter Care Teams Brake Reliner Relationship Specialty Start Date End Date Violeta Casillas DO PCP - General 09/29/16 09/15/21 Spring Banerjee RN [address] [place] [address] [address] [place] [address] Furniture Dipper 05/07/20 12/29/20 documented as of this encounter
--- OUTSIDE RECORDS SUMMARY | 2024-07-09 02:18 | XMS_ITS | Encounter Summary ---
Author Organization [facility] Home Care Servic es Address [address] [place] [address] Phone Care Team Providers Care Marble Mason Name Role Phone Violeta Casillas DO Primary Care Provider + Spring Banerjee RN Unavailable [phone] Dayana Marina APICULTURE TEACHER Unavailable [phone] Reason for Visit * Auth/Cert Specialty Diagnoses / Procedures Referred By Ignacia t Referred To Contact Referral ID Status Reason Start Date Expiration Date Visits Re quested Visits Authorized [id number] 1 1 Encounter Details Date Type Department Care Team (Late st Contact Info) Description 05/20/[address] [facility] Home Health [address] [address] Diaz Andrade, ELECTRIC MOTOR ASSEMBLER CASE COMMUNICATION Social History Tobacco Use Types [...] often do you attend chur ch or scientology services? Never 05/13/2020 Do you belong to any clubs o r organizations such as temple groups, unions, fraternal or athletic groups, or [...] on file Legal Sex Male 3:40 AM COKEMAN Gender Identity Not on file Sexual Orientation Not on file documented as of this encounter Plan of Treatment Not on file documented as of this encounter Visit Diagnoses Not on filedocumented in this encounter Care Teams Marble Mason Relationship Specialty Start Date End Date Violeta Casillas DO PCP - General 09/29/16 09/15/21 Spring Banerjee RN [address] [facility] [facility] [facility] [address] [place] [address] Production Supply Equipment Tender 05/07/20 12/29/20 Dayana Marina LCSW [address] [facility] [place] [address] Epic Director 05/10/20 05/25/20 documented as of this encounter
--- OUTSIDE RECORDS SUMMARY | 2024-07-09 02:18 | XMS_ITS | Encounter Summary ---
Author Organization [facility] Home Care Servic es Address [address] [place] [address] Phone Care Team Providers Care Regional Sales Representative Name Role Phone Violeta Casillas Primary Care Provider + Spring Banerjee RN Unavailable [phone] Dayana Marina LCSW Unavailable [phone] Reason for Visit * Auth/Cert Specialty Diagnoses / Procedures Referred By Ignacia t Referred To Contact Referral ID Status Reason Start Date Expiration Date Visits Re quested Visits Authorized [id number] 1 1 Encounter Details Date Type Department Care Team (Late st Contact Info) Description 05/19/2020 Home Care Visit [facility] Home Health [address] [address] Alana Aguirre, [facility] [...] any clubs o r organizations such as pentecostalism groups, unions, fraternal or athletic groups, or [...] on file Legal Sex Male 3:40 AM CLOUD ENGAGEMENT PARTNER Gender Identity Not on file Sexual Orientation Not on file documented as of this encounter Plan of Treatment Not on file documented as of this encounter Visit Diagnoses Not on filedocumented in this encounter Care Teams Regional Sales Representative Relationship Specialty Start Date End Date Violeta Casillas DO PCP - General 09/29/16 09/15/21 Spring Banerjee RN [address] [facility] [address] [place] [address] Helper Coordinator 05/07/20 12/29/20 Dayana Marina LCSW [address] [facility] [address] [place] [address] Rn Placement 05/10/20 05/25/20 documented as of this encounter
--- OUTSIDE RECORDS SUMMARY | 2024-07-09 02:18 | XMS_ITS | Encounter Summary ---
Author Organization [facility] Address [address] [facility] [address] [place] [address] Care Team Providers Care Wallboard Worker Name Role Phone Violeta Casillas DO Primary Care Provider + Spring Banerjee RN Unavailable [phone] Encounter Details Date Type Department Care Team (Late st Contact Info) Description 06/08/2020 Telephone [facility] [address] [place] [address] Violeta Casillas DO [address] [place] [address] Social History Tobacco Use Types [...] often do you attend chur ch or voodoo services? Never 05/13/2020 Do you belong to [...] on file Legal Sex Male 3:40 AM BAR BACK Gender Identity Not on file Sexual Orientation Not on file documented as of this encounter Miscellaneous Notes * Telephone Encounter - Ruth Faremr LPN - 06/08/2020 12:44 PM CST She said he was told by the last nurse to go to 8, but he told Alana he only takes 7, she will tell him to go up to 8. BACK * Telephone Encounter - Violeta Casillas DO - 06/08/2020 12:18 PM BAR BACK Can you find out why he is only taking 7 mg of warfarin daily when he is supposed to be taking 8 mg. Even the prescription reads correctly in the chart. He will need a repeat INR in about 2 weeks. BACK * Telephone Encounter - Nguyễn Rueda - 06/08/2020 11:52 AM CST Alana with [facility] home health called and his inr is 1.3 on 7mg cumadin he will be discharged from nursing today since he is now driving and will need outpatient inr orders ordered and she said we cancall her at [phone] and she will call him for us. BACK documented in this encounter Plan of Treatment Not on file documented as of this encounter Visit Diagnoses Diagnosis Warfarin anticoagulation- Primary documented in this encounter Care Teams Wallboard Worker Relationship Specialty Start Date End Date Violeta Casillas DO PCP - General 09/29/16 09/15/21 Spring Banerjee RN [address] [place] [address] [address] [place] [address] Gas Plant Dispatcher 05/07/20 12/29/20 documented as of this encounter
--- OUTSIDE RECORDS SUMMARY | 2024-07-09 02:18 | XMS_ITS | Encounter Summary ---
Author Organization [facility] Medical [facility] Address [address] [facility] [address] [place] [address] Care Team Providers Care Gas Engine Operator Name Role Phone Violeta Casillas DO Primary Care Provider + Spring Banerjee RN Unavailable [phone] Encounter Details Date Type Department Care Team (Late st Contact Info) Description 06/03/2020 Orders Only [facility] [address] [place] [address] Violeta Casillas DO [address] [place] [address] Social History Tobacco Use Types Packs/Day Years [...] file Legal Sex Male 3:40 AM LEAD PHP DEVELOPER Gender Identity Not on file Sexual Orientation Not on file documented as of this encounter Ordered Prescriptions Prescription Sig Dispense Quantity Refills Last Filled Start Date End Date warfarin (COUMADIN) 5 mg tablet [The details of the medication are not available because there are pending changes by a home health clinician.] 90 tablet 1 06/03/2020 0 warfarin (COUMADIN) 1 mg tablet [The details of the medication are not available because there are pending changes by a home health clinician.] 180 tablet 1 06/03/2020 0 documented in this encounter Plan of Treatment Not on file documented as of this encounter Visit Diagnoses Not on filedocumented in this encounter Discontinued Medications Medication Sig Discontinue Reason Start Date End Da te warfarin (COUMADIN) 1 mg tablet [The details of the medication are not available because there are pending changes by a home health clinician.] Reorder 06/01/2020 06/03/2020 warfarin (COUMADIN) 5 mg tablet [The details of the medication are not available because there are pending changes by a home health clinician.] Reorder 06/01/2020 06/03/2020 warfarin (COUMADIN) 1 mg tablet [The details of the medication are not available because there are pending changes by a home health clinician.] Reorder 06/01/2020 06/03/2020 warfarin (COUMADIN) 5 mg tablet [The details of the medication are not available because there are pending changes by a home health clinician.] Reorder 06/01/2020 06/03/2020 documented as of this encounter Care Teams Gas Engine Operator Relationship Specialty Start Date End Date Violeta Casillas DO PCP - General 09/29/16 09/15/21 Spring Banerjee RN [address] [place] [address] [address] [place] [address] Cena 05/07/20 12/29/20 documented as of this encounter
--- OUTSIDE RECORDS SUMMARY | 2024-07-09 02:18 | XMS_ITS | Encounter Summary ---
Author Organization [facility] Home Care Servic es Address [address] [place] [address] Phone Care Team Providers Care Ball Holder Name Role Phone Violeta Casillas Primary Care Provider + Spring Banerjee RN Unavailable Reason for Visit * Auth/Cert Specialty Diagnoses / Procedures Referred By Ignacia t Referred To Contact Referral ID Status Reason Start Date Expiration Date Visits Re quested Visits Authorized [id number] 1 1 Encounter Details Date Type Department Care Team (Late st Contact Info) Description 05/31/2020 Home Care Visit [facility] Home Health - [address] [address] Josiane Rodriguez, [facility] TRAVEL SCREENING CASE COMMUNICATION Social History Tobacco [...] often do you attend chur ch or yazidism services? Never 05/13/2020 Do you belong to any clubs o r organizations such as judaism groups, unions, fraternal or athletic groups, or [...] on file Legal Sex Male 3:40 AM PROJECT DIRECTOR Gender Identity Not on file Sexual Orientation Not on file documented as of this encounter Plan of Treatment Not on file documented as of this encounter Visit Diagnoses Not on filedocumented in this encounter Care Teams Ball Holder Relationship Specialty Start Date End Date Violeta Casillas DO PCP - General 09/29/16 09/15/21 Spring Banerjee RN [address] [place] [address] [address] [place] [address] Public Health Officer 05/07/20 12/29/20 documented as of this encounter
--- OUTSIDE RECORDS SUMMARY | 2024-07-09 02:18 | XMS_ITS | Encounter Summary ---
Author Organization [facility] Home Care Servic es Address [address] [place] [address] Phone Care Team Providers Care Timber Repairer Name Role Phone Violeta Casillas DO Primary Care Provider + Spring Banerjee RN Unavailable [phone] Reason for Visit * Auth/Cert Specialty Diagnoses / Procedures Referred By Ignacia t Referred To Contact Referral ID Status Reason Start Date Expiration Date Visits Re quested Visits Authorized [id number] 1 1 Encounter Details Date Type Department Care Team (Late st Contact Info) Description 05/26/2020 Home Care Visit [facility] Home Health - [address] [address] Diaz Andrade, PRE OWNED SALES MANAGER TRAVEL SCREENING CASE COMMUNICATION Social History Tobacco [...] often do you attend chur ch or mormonism services? Never 05/13/2020 Do you belong to [...] on file Legal Sex Male 3:40 AM HEADING AND PRIMING OPERATOR Gender Identity Not on file Sexual Orientation Not on file documented as of this encounter Plan of Treatment Not on file documented as of this encounter Visit Diagnoses Not on filedocumented in this encounter Care Teams Timber Repairer Relationship Specialty Start Date End Date Violeta Casillas DO PCP - General 09/29/16 09/15/21 Spring Banerjee RN [address] [place] [address] [address] [place] [address] Rounding And Backing Machine Operator 05/07/20 12/29/20 documented as of this encounter
--- OUTSIDE RECORDS SUMMARY | 2024-07-09 02:18 | XMS_ITS | Encounter Summary ---
Author Organization [facility] Home Care [facility] es Address [address] [place] [address] Phone Care Team Providers Care Spot Remover Name Role Phone Violeta Casillas Primary Care Provider + Spring Banerjee RN Unavailable [phone] Dayana Marina ACETONE BUTTON PASTER Unavailable [phone] Reason for Visit * Auth/Cert Specialty Diagnoses / Procedures Referred By Ignacia t Referred To Contact Referral ID Status Reason Start Date Expiration Date Visits Re quested Visits Authorized [id number] 1 1 Encounter Details Date Type Department Care Team (Late st Contact Info) Description 05/14/2020 Home Care Visit [facility] Home Health [address] [address] Yakelin Landon, PT TRAVEL SCREENING [...] often do you attend chur ch or spiritism services? Never 05/13/2020 Do you belong to [...] on file Legal Sex Male 3:40 AM UPKEEP WORKER Gender Identity Not on file Sexual Orientation Not on file documented as of this encounter Plan of Treatment Not on file documented as of this encounter Visit Diagnoses Not on filedocumented in this encounter Care Teams Spot Remover Relationship Specialty Start Date End Date Violeta Casillas DO PCP - General 09/29/16 09/15/21 Spring Banerjee RN [address] [facility] [address] [place] [address] Dna Analyst 05/07/20 12/29/20 Dayana Marina LCSW [address] [facility] [address] [place] [address] Tobacco Sweeper 05/10/20 05/25/20 documented as of this encounter
--- OUTSIDE RECORDS SUMMARY | 2024-07-09 02:18 | XMS_ITS | Encounter Summary ---
Author Organization [facility] Home Care [facility] es Address [address] [place] [address] Phone Care Team Providers Care Icer Machine Operator Name Role Phone Violeta Casillas Primary Care Provider + Spring Banerjee RN Unavailable [phone] Dayana Marina LCSW Unavailable [phone] Reason for Visit * Auth/Cert Specialty Diagnoses / Procedures Referred By Ignacia t Referred To Contact Referral ID Status Reason Start Date Expiration Date Visits Re quested Visits Authorized [id number] 1 1 Encounter Details Date Type Department Care Team (Late st Contact Info) Description 05/25/2020 1:00 AM DETAIL SERGEANT Home Care Visit [facility] Home Health [address] [address] Alana gAuirre RN SN HOME VISIT Social History Tobacco [...] any clubs o r organizations such as congregational groups, unions, fraternal or athletic groups, or [...] on file Legal Sex Male 3:40 AM DETAIL SERGEANT Gender Identity Not on file Sexual Orientation Not on file documented as of this encounter Last Filed Vital Signs Vital Sign Reading Time Taken Comments Blood Pressure 138/80 05/25/2020 10:23 AM DETAIL SERGEANT Pulse 67 05/25/2020 10:23 AM DETAIL SERGEANT Temperature 36.8 ??C (98.2 ??F) 05/25/2020 10:[address] Respiratory Rate 18 05/25/2020 10:23 AM DETAIL SERGEANT Oxygen Saturation 93% 05/25/2020 10:23 AM DETAIL SERGEANT Inhaled Oxygen Concentration - - Weight - - Height - - Body Mass Index - - documented in this encounter Plan of Treatment Not on file documented as of this encounter Visit Diagnoses Not on filedocumented in this encounter Home Health Visit - Care Plan Visit Details Visit Type -SN Home Visit Discipline -Retirement Problems Problem Description Start Date Status Goals Interve ntions Homebound Status Disciplines: Retirement, Physical Therapy Patient's homebound status 05/12/2020 Active 1 goal linked to scheduled/documen max intervention 1 goal intervention scheduled/document ed in this visit Medications Disciplines: Retirement, Physical Therapy Management of home medications 05/12/2020 Active 1 goal linked to scheduled/documen max intervention 2 goal interventions scheduled/document ed in this visit Monitor patient's vital signs every home health visit Disciplines: Retirement, Physical Therapy Monitor patient's vital signs every home health visit. 05/12/2020 Active 1 goal linked to scheduled/documen max intervention 1 goal intervention scheduled/document ed in this visit Standardized Guidelines Disciplines: Retirement, Physical Therapy Standardized Guidelines 05/12/2020 Active 1 goal linked to scheduled/documen max intervention 1 goal intervention scheduled/document ed in this visit Fall Precautions/Sa fety Concerns Disciplines: Retirement, Physical Therapy Alteration in safety 05/12/2020 Active 1 goal linked to scheduled/documen max intervention 1 goal intervention scheduled/document ed in this visit [place] Precautions Disciplines: Retirement, Physical Therapy [place] Precautions 05/12/2020 Active 1 goal linked to scheduled/documen max intervention 1 goal intervention scheduled/document ed in this visit Depression Disciplines: Retirement, Physical Therapy Depression 05/12/2020 Active 1 goal linked to scheduled/documen max intervention 2 goal interventions scheduled/document ed in this visit Problems with Activity - COPD Disciplines: Retirement Decreased tolerance to normal activities related to dyspnea and fatigue 05/12/2020 Active 1 goal linked to scheduled/documen max intervention 1 goal intervention scheduled/document ed in this visit Goals Goal [...] visit during episode of care Description: Home staff forester to measure vital signs during every home health visit during episode of care. Monitor patient's vital signs every home health visit No Understanding of when to notify MD in absence of home care staff Description: Understanding of when to notify MD in absence of home care staff Standardized Guidelines No Demonstrate use of safety precautions Description: Demonstrate use of safety precautions Fall Precautions/Safety Concerns No Demonstrate knowledge of universal precautions Description: Demonstrate knowledge of universal precautions [place] Precautions No Demonstrate knowledge of depression Description: Demonstrate knowledge of depression. Depression No Demonstrate increased endurance Description: Patient will demonstrate increased endurance and ability to perform activities of daily living by maintenance of respiration and blood pressure while caring for self and performing routine tasks by the end of the episode of care. Problems with Activity - COPD No Interventions Intervention Associated Problem/Goal Status Variance [...] setting Completed Patient is homebound due to medical condition and fall risk as evidenced by POOR ENDURANCE RELATED TO COPD AND SHOB WITH AMBULATION OVER 20 FEET. Instruct on High Risk Medications Description: Instruct patient/caregiver on high-risk/high-alert medications, including: anti-convulsant, anti-retroviral, anti-coagulant, chemotherapeutic, hypo-glycemic, immunosuppressant, insulin, and opioid. Problem:Medications Goal:Understand and follow medication therapy Completed Teaching High-risk/high-alert medications (specifically COUMADIN ) with Patient. PATIENT VERBALIZED UNDERSTANDING OF PROPER MED USE AND SIDE EFFECTS Monitor effectiveness of drug therapy Description: Monitor effectiveness of patient's drug therapy Problem:Medications Goal:Understand and follow medication therapy Completed Monitor Vital Signs Description: Monitor blood pressure, pulse, oxygen saturation, respirations Problem:Monitor patient's vital signs every home health visit Goal:Measure vital signs during every home health visit during episode of care Completed Home Care Staff Absence Description: In absence of Home Care staff the patient/caregiver should BE ABLE TO RECOGNIZE S&S OF INFECTION, S&S OF BLEEDING AND KNOW WHEN TO SEEK MEDICAL SERVICES Problem:Standardized Guidelines Goal:Understanding of when to notify MD in absence of home care staff Completed [place] Fall Precautions Description: Assess patient safety Problem:Fall Precautions/Safety Concerns Goal:Demonstrate use of safety precautions Completed Aspects of Care Description: Instruct patient/caregiver on universal precautions and home infection control measures Problem:[place] Precautions Goal:Demonstrate knowledge of universal precautions Completed Assess signs/symptoms of Depression Description: Assess signs/symptoms of depression. Problem:Depression Goal:Demonstrate knowledge of depression Completed Assess depression Description: Assess depression. Problem:Depression Goal:Demonstrate knowledge of depression Completed Teach energy conservation Description: Teach patient/caregiver energy conservation techniques. Problem:Problems with Activity - COPD Goal:Demonstrate increased endurance Completed Energy conservation strategies instructed with Patient. Patient verbalize understanding of energy conservation strategies. documented in this encounter Care Teams Icer Machine Operator Relationship Specialty Start Date End Date Violeta CasillasDO PCP - General 09/29/16 09/15/21 Spring Banerjee RN [address] [facility] [address] [place] [address] Business Process Modeler 05/07/20 12/29/20 Dayana Marina LCSW [address] [facility] [address] [place], [place] [id number] Lobbyist 05/10/20 05/25/20 documented as of this encounter
--- OUTSIDE RECORDS SUMMARY | 2024-07-09 02:18 | XMS_ITS | Encounter Summary ---
Author Organization [facility] Home Care Servic es Address [address] [place] [address] Phone Care Team Providers Care Digital Marketing Manager Name Role Phone Violeta Casillas DO Primary Care Provider + Spring Banerjee RN Unavailable [phone] Reason for Visit * Auth/Cert Specialty Diagnoses / Procedures Referred By Ignacia manzanares Referred To Contact Referral ID Status Reason Start Date Expiration Date Visits Re quested Visits Authorized [id number] 1 1 Encounter Details Date Type Department Care Team (Late st Contact Info) Description 06/08/2020 Home Care Visit [facility] Home Health - [address] [address] Diaz Andrade, DELIVERY AGENT CASE COMMUNICATION Social History Tobacco Use Types [...] any clubs o r organizations such as mormon groups, unions, fraternal or athletic groups, or [...] on file Legal Sex Male 3:40 AM RASCHEL KNITTING MACHINE OPERATOR Gender Identity Not on file Sexual Orientation Not on file documented as of this encounter Plan of Treatment Not on file documented as of this encounter Visit Diagnoses Not on filedocumented in this encounter Care Teams Digital Marketing Manager Relationship Specialty Start Date End Date Violeta Casillas DO PCP - General 09/29/16 09/15/21 Spring Banerjee RN [address] [place] [address] [address] [place] [address] Service Establishment Attendant 05/07/20 12/29/20 documented as of this encounter
--- OUTSIDE RECORDS SUMMARY | 2024-07-09 02:18 | XMS_ITS | Encounter Summary ---
Author Organization [facility] Home Care Servic es Address [address] [place] [address] Phone Care Team Providers Care Wash House Worker Name Role Phone Violeta Casillas Primary Care Provider + Spring Banerjee RN Unavailable [phone] Reason for Visit * Auth/Cert Specialty Diagnoses / Procedures Referred By Ignacia t Referred To Contact Referral ID Status Reason Start Date Expiration Date Visits Re quested Visits Authorized [id number] 1 1 Encounter Details Date Type Department Care Team (Late st Contact Info) Description 06/02/2020 Home Care Visit [facility] Home Health - [address] [address] Alana Aguirre, TIFFANY CARE CONFERENCE [...] on file Legal Sex Male 3:40 AM BRICK VENEER MAKER Gender Identity Not on file Sexual Orientation Not on file documented as of this encounter Plan of Treatment Not on file documented as of this encounter Visit Diagnoses Not on filedocumented in this encounter Care Teams Wash House Worker Relationship Specialty Start Date End Date Violeta Casillas DO PCP - General 09/29/16 09/15/21 Spring Banerjee RN [address] [place] [address] [address] [place] [address] Card Placer 05/07/20 12/29/20 documented as of this encounter
--- OUTSIDE RECORDS SUMMARY | 2024-07-09 02:18 | XMS_ITS | Encounter Summary ---
Author Organization [facility] Home Care Servic es Address [address] [place] [address] Phone Care Team Providers Care Librarian Special Collections Name Role Phone CasillasDiazlexa Dominic Primary Care Provider + Spring Banerjee RN Unavailable [phone] Reason for Visit * Auth/Cert Specialty Diagnoses / Procedures Referred By Ignacia t Referred To Contact Referral ID Status Reason Start Date Expiration Date Visits Re quested Visits Authorized [id number] 1 1 Encounter Details Date Type Department Care Team (Late st Contact Info) Description 06/07/2020 2:00 PM CHIEF LIBRARIAN MUSIC DEPARTMENT Home Care Visit [facility] Home Health - [address] [phone] oJsiane Rodriguez PTA PT HOME VISIT Social History [...] often do you attend chur ch or alevism services? Never 05/13/2020 Do you belong to [...] on file Legal Sex Male 3:40 AM CHIEF LIBRARIAN MUSIC DEPARTMENT Gender Identity Not on file Sexual Orientation Not on file documented as of this encounter Last Filed Vital Signs Vital Sign Reading Time Taken Comments Blood Pressure 148/70 06/07/2020 3:30 PM CHIEF LIBRARIAN MUSIC DEPARTMENT Pulse 77 06/07/2020 3:30 PM CHIEF LIBRARIAN MUSIC DEPARTMENT Temperature 36 ??C (96.8 ??F) 06/07/2020 3:30 PM CHIEF LIBRARIAN MUSIC DEPARTMENT Respiratory Rate 18 06/07/2020 3:30 PM CHIEF LIBRARIAN MUSIC DEPARTMENT Oxygen Saturation 94% 06/07/2020 3:30 PM CHIEF LIBRARIAN MUSIC DEPARTMENT Inhaled Oxygen Concentration - - Weight - [...] visit during episode of care Description: Home tubing machine operator to measure vital signs during every home [...] setting Completed Patient is homebound due to decreased endurance, increased dyspnea w/ activity, taxing effort to leave home. Monitor [...] PT regarding patient's progress in therapy. AT visit, discussion w/ patient regarding scheduling of upcoming tx and probable dc of hh therapy at that time. Narratives Patient has some areas on hi s forearms, stomach and near ankles where he has what appears to be bug bites and has been scratching them. He had also told district captain that he has been having problems w/ his small dog having fleas. All of the bites appear to be in areas where he either holds the dog or where she would be around his feet. He states he had talked to the Rn about it and she suggested hydrocortisone cream or seeing his pcp. He does not want to go to the pcp - he feels the bites are getting better. Recommended patient use hydrocortisone cream and wrote it down for him so that he could ask pharmacist for it since he cannot read/write. Patient tolerated all tx well today. He is walking better and endurance has improved. He is able to follow the pictures on his HEP and appears to be doing them on daily basis. Continue one more tx under current orders for dc. documented in this encounter Care Teams Librarian Special Collections Relationship Specialty Start Date End Date Violeta Casillas DO PCP - General 09/29/16 09/15/21 Spring Banerjee, TIFFANY [address] [place] [address] [address] [place] [address] Crystal Cutter 05/07/20 12/29/20 documented as of this encounter
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
--- OUTSIDE RECORDS SUMMARY | 2024-07-09 02:18 | XMS_ITS | Encounter Summary ---
Author Organization [facility] Home Care Servic es Address [address] [place] [address] Phone Care Team Providers Care Day Habilitation Supervisor Name Role Phone Violeta Casillas Primary Care Provider + Spring Banerjee RN Unavailable [phone] Reason for Visit * Auth/Cert Specialty Diagnoses / Procedures Referred By Igancia t Referred To Contact Referral ID Status Reason Start Date Expiration Date Visits Re quested Visits Authorized [id number] 1 1 Encounter Details Date Type Department Care Team (Late st Contact Info) Description 06/01/2020 Home Care Visit [facility] Home Health - [address] [phone] Caryn Harris RN TRAVEL SCREENING CASE COMMUNICATION Social History [...] often do you attend chur ch or sikh services? Never 05/13/2020 Do you belong to [...] on file Legal Sex Male 3:40 AM CLINICAL STAFF PHARMACIST Gender Identity Not on file Sexual Orientation Not on file documented as of this encounter Plan of Treatment Not on file documented as of this encounter Visit Diagnoses Not on filedocumented in this encounter Care Teams Day Habilitation Supervisor Relationship Specialty Start Date End Date Violeta Casillas DO PCP - General 09/29/16 09/15/21 Spring Banerjee RN [address] [place] [address] [address] [place] [address] Juice Scaleman 05/07/20 12/29/20 documented as of this encounter
--- OUTSIDE RECORDS SUMMARY | 2024-07-09 02:18 | XMS_ITS | Encounter Summary ---
Author Organization [facility] Address [address] [facility] [address] [place] [address] Care Team Providers Care Shiftman Name Role Phone Vinny Violeta Alfaro DO Primary Care Provider + Spring Banerjee RN Unavailable [phone] Encounter Details Date Type Department Care Team (Late st Contact Info) Description 07/06/2020 10:30 AM HUMAN RESOURCE MANAGER Lab [facility] [address] [facility] Warfarin anticoagulation Social History Tobacco Use [...] on file Legal Sex Male 3:40 AM HUMAN RESOURCE MANAGER Gender Identity Not on file Sexual Orientation Not on file documented as of this encounter Miscellaneous Notes * Result Encounter Note - Violeta Casillas DO - 07/07/2020 5:39 PM HUMAN RESOURCE MANAGER Continue same dosing and recheck 1 week if at home or 1 month if at lab N RESOURCE MANAGER documented in this encounter Plan of Treatment Not on file documented as of this encounter Procedures Procedure Name Priority Date/Time Associated Diagnosis Comments POCT INR Routine 07/06/2020 10:40 AM HUMAN RESOURCE MANAGER Warfarin anticoagulation documented in this encounter Results * POCT INR (07/06/2020 10:40 AM HUMAN RESOURCE MANAGER) INR, POC 3.0 Blood specimen (specimen) (Blood, Venous) 07/06/2020 10:40 AM HUMAN RESOURCE MANAGER us Violeta Casillas DO POINT OF CARE TEST ORDER ANDREZ Final Result documented in this encounter Visit Diagnoses Diagnosis Warfarin anticoagulation documented in this encounter Care Teams Shiftman Relationship Specialty Start Date End Date Violeta Casillas DO PCP - General 09/29/16 09/15/21 Spring Banerjee, TIFFANY [address] [place] [address] [address] [place] [address] Control Officer 05/07/20 12/29/20 documented as of this encounter
--- OUTSIDE RECORDS SUMMARY | 2024-07-09 02:18 | XMS_ITS | Encounter Summary ---
Author Organization [facility] Address [address] [facility] [address] [place] [address] Care Team Providers Care Wide Area Network Engineer Name Role Phone Violeta Casillas DO Primary Care Provider + Spring Banerjee RN Unavailable [phone] Encounter Details Date Type Department Care Team (Late st Contact Info) Description 07/06/2020 Orders Only [facility] [address] [place] [address] Violeta Casillas DO [address] [place] [address] Warfarin anticoagulation (Primary Dx) Social History Tobacco Use Types Packs/Day Years [...] any clubs o r organizations such as jain groups, unions, fraternal or athletic groups, or [...] on file Legal Sex Male 3:40 AM FORMULATOR Gender Identity Not on file Sexual Orientation Not on file documented as of this encounter Progress Notes * Ruth Farmer LPN - 07/06/2020 10:27 AM CST Entered in error ULATOR documented in this encounter Plan of Treatment Not on file documented as of this encounter Visit Diagnoses Diagnosis Warfarin anticoagulation- Primary documented in this encounter Care Teams Wide Area Network Engineer Relationship Specialty Start Date End Date Violeta Casillas DO PCP - General 09/29/16 09/15/21 Spring Banerjee, TIFFANY [address] [place] [address] [address] [place] [address] Ramp Service Employee 05/07/20 12/29/20 documented as of this encounter
--- OUTSIDE RECORDS SUMMARY | 2024-07-09 02:18 | XMS_ITS | Encounter Summary ---
Author Organization [facility] Address [address] [facility] [address] [place] [address] Care Team Providers Care Bulk System Operator Name Role Phone Vinny Violeta Alfaro DO Primary Care Provider + Spring Banerjee RN Unavailable [phone] Encounter Details Date Type Department Care Team ([facility] Contact Info) Description 06/23/2020 9:45 AM SPA ASSISTANT MANAGER Lab Medical [address] Atrial fibrillation, unspecified type (CMS/HCC) Social History Tobacco Use Types Packs/Day [...] on file Legal Sex Male 3:40 AM SPA ASSISTANT MANAGER Gender Identity Not on file Sexual Orientation Not on file documented as of this encounter Plan of Treatment Not on file documented as of this encounter Procedures Procedure Name Priority Date/Time Associated Diagnosis Comments POCT INR Routine 06/23/2020 9:44 AM SPA ASSISTANT MANAGER Atrial fibrillation, unspecified type (CMS/HCC) documented in this encounter Results * POCT INR (06/23/2020 9:44 AM SPA ASSISTANT MANAGER) INR, POC 1.7 Blood specimen (specimen) (Blood, Venous) 06/23/2020 9:44 AM SPA ASSISTANT MANAGER Violeta Casillas DO POINT OF CARE TEST ORDER ANDREZ Final Result documented in this encounter Visit Diagnoses Diagnosis Atrial fibrillation, unspecified type (HCC) documented in this encounter Care Teams Bulk System Operator Relationship Specialty Start Date End Date Violeta Casillas DO PCP - General 09/29/16 09/15/21 Spring Banerjee, TIFFANY [address] [place] [address] [address] [place] [address] Regional Sales Representative 05/07/20 12/29/20 documented as of this encounter
--- OUTSIDE RECORDS SUMMARY | 2024-07-09 02:18 | XMS_ITS | Encounter Summary ---
Author Organization [facility] Home Care Servic es Address [address] [place] [address] Phone Care Team Providers Care Punch Machine Operator Name Role Phone Violeta Casillas Primary Care Provider + Spring Banerjee RN Unavailable [phone] Reason for Visit * Auth/Cert Specialty Diagnoses / Procedures Referred By Ignacia t Referred To Contact Referral ID Status Reason Start Date Expiration Date Visits Re quested Visits Authorized [id number] 1 1 Encounter Details Date Type Department Care Team (Late st Contact Info) Description 06/09/2020 Home Care Visit [facility] Home Health - [address] [address] Alana Aguirre RN TELEPHONE ENCOUNTER [...] often do you attend chur ch or roman catholic services? Never 05/13/2020 Do you belong to any clubs o r organizations such as nondenominational groups, unions, fraternal or athletic groups, or [...] on file Legal Sex Male 3:40 AM COMPTOMETER OPERATOR Gender Identity Not on file Sexual Orientation Not on file documented as of this encounter Plan of Treatment Not on file documented as of this encounter Visit Diagnoses Not on filedocumented in this encounter Care Teams Punch Machine Operator Relationship Specialty Start Date End Date Violeta Casillas DO PCP - General 09/29/16 09/15/21 Spring Banerjee RN [address] [place] [address] [address] [place] [address] Plisse Machine Operator 05/07/20 12/29/20 documented as of this encounter
--- OUTSIDE RECORDS SUMMARY | 2024-07-09 02:18 | XMS_ITS | Encounter Summary ---
Author Organization [facility] Home Care Servic es Address [address] [place] [address] Phone Care Team Providers Care Line Assembler Aircraft Name Role Phone CasillasDiazlexa Dominic Primary Care Provider + Spring Banerjee RN Unavailable [phone] Reason for Visit * Auth/Cert Specialty Diagnoses / Procedures Referred By Ignacia t Referred To Contact Referral ID Status Reason Start Date Expiration Date Visits Re quested Visits Authorized [id number] 1 1 Encounter Details Date Type Department Care Team (Late st Contact Info) Description 06/02/2020 11:00 AM DRAWER IN HAND Home Care Visit [facility] Home Health - [address] [address] Josiane Rodriguez PTA PT HOME [...] often do you attend chur ch or baptism services? Never 05/13/2020 Do you belong to any clubs o r organizations such as holiness groups, unions, fraternal or athletic groups, or [...] on file Legal Sex Male 3:40 AM DRAWER IN HAND Gender Identity Not on file Sexual Orientation Not on file documented as of this encounter Last Filed Vital Signs Vital Sign Reading Time Taken Comments Blood Pressure 155/80 06/02/2020 11:00 AM DRAWER IN HAND Pulse 75 06/02/2020 11:00 AM DRAWER IN HAND Temperature 36.4 ??C (97.5 ??F) 06/02/2020 11:[address] Respiratory Rate 18 06/02/2020 11:00 AM DRAWER IN HAND Oxygen Saturation 95% 06/02/2020 11:00 AM DRAWER IN HAND Inhaled Oxygen Concentration - - Weight - - Height - - Body Mass Index - - documented in this encounter Progress Notes * Violeta Casillas DO - 06/02/2020 9:24 PM CST Stop the med and see how he feels. ER IN HAND * Josiane Rodriguez PTA - 06/02/2020 9:09 PM CST Patient reports to me at tx this week that he gets dizzy about a half hour post taking his Ropinirole. He states it also makes him slightly nauseous. He does not feel he is getting as good of relief of his tremors with it as previous med. ER IN HAND documented in this encounter Plan of Treatment Not on file documented as of this encounter Visit Diagnoses Not on filedocumented in this encounter Home Health Visit - Care Plan Visit Details Visit Type -PT Home Visit Discipline -Physical Therapy Problems Problem Description Start Date Status Goals Interve ntions Homebound Status Disciplines: Snf, Physical Therapy Patient's homebound status 05/12/2020 Active 1 goal linked to scheduled/documen max intervention 1 goal intervention scheduled/document ed in this visit Monitor patient's vital signs every home health visit Disciplines: Snf, Physical Therapy Monitor patient's vital signs every [...] visit during episode of care Description: Home clinician oncology to measure vital signs during every home [...] Patient is homebound due to unsteady gait, fall risk, decreased strength/endurance, taxing effort to leave home. Monitor Vital [...] Yakelin Landon PT regarding patient's progress in therapy; at visit w/ patient regarding scheduling of upcoming txs. Narratives Patient anthony all tx well. He works hard on his ex and appears to be doing them in between visits. He reports he feels he is getting stronger and he is showing better balance and nilsa in gait. Continue 2x/wk as per orders. documented in this encounter Care Teams Line Assembler Aircraft Relationship Specialty Start Date End Date Violeta Casillas DO PCP - General 09/29/16 09/15/21 Spring Banerjee RN [address] [place] [address] [address] [place] [address] Heat Plant Specialist 05/07/20 12/29/20 documented as of this encounter
--- OUTSIDE RECORDS SUMMARY | 2024-07-09 02:18 | XMS_ITS | Encounter Summary ---
Author Organization [facility] Home Care Servic es Address [address] [place] [address] Phone Care Team Providers Care Pulley Maintainer Name Role Phone Obdulio Posada Primary Care Provider + Spring Banerjee RN Unavailable [phone] Reason for Visit * Auth/Cert Specialty Diagnoses / Procedures Referred By Ignacia t Referred To Contact Referral ID Status Reason Start Date Expiration Date Visits Re quested Visits Authorized [id number] 1 1 Encounter Details Date Type Department Care Team (Late st Contact Info) Description 06/01/2020 9:30 AM WASTE CHOPPER Home Care Visit [facility] Home Health - [address] [address] Caryn Harris RN SN HOME VISIT Social History Tobacco [...] on file Legal Sex Male 3:40 AM WASTE CHOPPER Gender Identity Not on file Sexual Orientation Not on file documented as of this encounter Last Filed Vital Signs Vital Sign Reading Time Taken Comments Blood Pressure 138/70 06/01/2020 9:35 AM WASTE CHOPPER Pulse 64 06/01/2020 9:35 AM WASTE CHOPPER Temperature 36.7 ??C (98 ??F) 06/01/2020 9:35 AM WASTE CHOPPER Respiratory Rate 18 06/01/2020 9:35 AM WASTE CHOPPER Oxygen Saturation 94% 06/01/2020 9:35 AM WASTE CHOPPER Inhaled Oxygen Concentration - - Weight - - Height - - Body Mass Index - - documented in this encounter Plan of Treatment Not on file documented as of this encounter Procedures Procedure Name Priority Date/Time Associated Diagnosis Comments POCT PROTHROMBIN TIME/INR Routine 06/01/2020 9:53 AM WASTE CHOPPER documented in this encounter Results * POCT PT/INR (06/01/2020 9:53 AM WASTE CHOPPER) INR, POC 1.50 HH POCT RESULTING LABORATORY Comment:18.2 Blood specimen (specimen) 06/01/2020 9:53 AM WASTE CHOPPER us Obdulio Posada DO POINT OF CARE TEST ORDER ANDREZ Final Result HH POCT RESULTING LABORATORY documented in this encounter Visit Diagnoses Not on filedocumented in this encounter Home Health Visit - Care Plan Visit Details Visit Type -SN Home Visit Discipline -Group Home Problems Problem Description Start Date Status Goals Interve ntions Homebound Status Disciplines: Group Home, Physical Therapy Patient's homebound status 05/12/2020 Active 1 goal linked to scheduled/documen max intervention 1 goal intervention scheduled/document ed in this visit Medications Disciplines: Group Home, Physical Therapy Management of home medications 05/12/2020 Active 1 goal linked to scheduled/documen max intervention 3 goal interventions scheduled/document ed in this visit Monitor patient's vital signs every home health visit Disciplines: Group Home, Physical Therapy Monitor patient's vital signs every home health visit. 05/12/2020 Active 1 goal linked to scheduled/documen max intervention 1 goal intervention scheduled/document ed in this visit Infection Prevention Disciplines: Group Home, Physical Therapy Infection Prevention 05/12/2020 Active 1 goal linked to scheduled/documen max intervention 1 goal intervention scheduled/document ed in this visit Fall Precautions/Sa fety Concerns Disciplines: Group Home, Physical Therapy Alteration in safety 05/12/2020 Active 1 goal linked to scheduled/documen max intervention 1 goal intervention scheduled/document ed in this visit Depression Disciplines: Group Home, Physical Therapy Depression 05/12/2020 Active 1 goal linked to scheduled/documen max intervention 1 goal intervention scheduled/document ed in this visit Collect Specimen/Lab Draw Disciplines: Group Home Management of specimen samples, including lab draws, stool, urine, & tissue. 05/25/2020 Active - 1 problem intervention scheduled/document ed in this visit Goals [...] visit during episode of care Description: Home installer to measure vital signs during every home health visit during episode of care. Monitor patient's vital signs every home health visit No Verbalize signs of infection Description: Verbalize signs of infection Infection Prevention No Demonstrate use of safety precautions Description: Demonstrate use of safety precautions Fall Precautions/Safety Concerns No Demonstrate knowledge of depression Description: Demonstrate knowledge of depression. Depression No Interventions Intervention Associated Problem/Goal Status Variance [...] Patient is homebound due to medical condition as evidenced by generalized fatigue with frequent rest periods needed, unsteady gait at times, taxing effort out of home. Instruct on Medication Management Description: Instruct patient/caregiver in medication administration, purpose, dosages, preparation, scheduling, side effects, food/drug interactions, storage, drug allergies, and potential complications. Problem:Medications Goal:Understand and follow medication therapy Completed Patient instructed on medication administration, purpose, dosages, preparation, scheduling, side effects, food/drug interactions, and potential complications. Current regimen and compliance reviewed with Patient. Patient verbalizes and demonstrates ability to perform safe home medication administration. Medications taught include all medications on [facility] med list. Instruct on High Risk Medications Description: Instruct patient/caregiver on high-risk/high-alert medications, including: anti-convulsant, anti-retroviral, anti-coagulant, chemotherapeutic, hypo-glycemic, immunosuppressant, insulin, and opioid. Problem:Medications Goal:Understand and follow medication therapy Completed Teaching High-risk/high-alert medications (specifically warfarin ) with Patient. patient verbalizes good understanding Monitor effectiveness of drug therapy Description: Monitor effectiveness of patient's drug therapy Problem:Medications Goal:Understand and follow medication therapy Completed Monitor Vital Signs Description: Monitor blood pressure, pulse, oxygen saturation, respirations Problem:Monitor patient's vital signs every home health visit Goal:Measure vital signs during every home health visit during episode of care Completed Educate Patient on Infection Prevention Description: Instruct patient on signs and symptoms of infection IE: fever, odor, change in color, increased amount of drainage, purulent drainage, warmth. Problem:Infection Prevention Goal:Verbalize signs of infection Completed patient verbalizes understanding of s/sx of infection and when to notify physician/telesales team leader High Fall Risk Precautions Description: Instruct patient/caregiver [...] DEVICES NEEDED AND HAND RAILS TO PREVENT FALLS.PATIENT VERBALIZES UNDERSTANDING Assess depression Description: Assess depression. Problem:Depression Goal:Demonstrate knowledge of depression Completed Collect Specimen/Lab Draw Description: Draw labs per aseptic technique via venipuncture or coagucheck finger stick. May use butterfly if hard draw. Labs pt/inr Frequency x1. call results to dr obdulio posada. Ordering MD rowena posada. Record number of attempts, delivery to lab method, & confirmation details. Problem:Collect Specimen/Lab Draw Completed documented in this encounter Care Teams Pulley Maintainer Relationship Specialty Start Date End Date Obdulio Posada DO PCP - General 09/29/16 09/15/21 Spring Banerjee RN [address] [place] [address] [address] [place] [address] Tube Drawer 05/07/20 12/29/20 documented as of this encounter
--- OUTSIDE RECORDS SUMMARY | 2024-07-09 02:18 | XMS_ITS | Encounter Summary ---
Author Organization [facility] Home Care Servic es Address [address] [place] [address] Phone Care Team Providers Care Brickmason Name Role Phone Violeta Casillas Primary Care Provider + Spring Banerjee RN Unavailable [phone] Reason for Visit * Auth/Cert Specialty Diagnoses / Procedures Referred By Ignacia t Referred To Contact Referral ID Status Reason Start Date Expiration Date Visits Re quested Visits Authorized [id number] 1 1 Encounter Details Date Type Department Care Team (Late st Contact Info) Description 05/26/2020 Home Care Visit [facility] Home Health - [address] [address] Alana Aguirre, [facility] [...] often do you attend chur ch or jehovah's witness services? Never 05/13/2020 Do you belong to any clubs o r organizations such as faith groups, unions, fraternal or athletic groups, or [...] on file Legal Sex Male 3:40 AM PORT CDL A DRIVER Gender Identity Not on file Sexual Orientation Not on file documented as of this encounter Plan of Treatment Not on file documented as of this encounter Visit Diagnoses Not on filedocumented in this encounter Care Teams Brickmason Relationship Specialty Start Date End Date Violeta Casillas DO PCP - General 09/29/16 09/15/21 Spring Banerjee RN [address] [place] [address] [address] [place] [id number] Director Diversity 05/07/20 12/29/20 documented as of this encounter
--- OUTSIDE RECORDS SUMMARY | 2024-07-09 02:18 | XMS_ITS | Encounter Summary ---
Author Organization [facility] Home Care Servic es Address [address] [place] [address] Phone Care Team Providers Care Monument Stonecutter Name Role Phone Violeta Casillas Primary Care Provider + Spring Banerjee RN Unavailable [phone] Reason for Visit * Auth/Cert Specialty Diagnoses / Procedures Referred By Ignacia t Referred To Contact Referral ID Status Reason Start Date Expiration Date Visits Re quested Visits Authorized [id number] 1 1 Encounter Details Date Type Department Care Team (Late st Contact Info) Description 06/08/2020 3:00 AM CORRECTIONAL FACILITY PSYCHIATRIST Home Care Visit [facility] Home Health - [address] [address] Alana Aguirre RN SN DISCIPLINE DISCHARGE Social History Tobacco Use Types Packs/Day [...] on file Legal Sex Male 3:40 AM CORRECTIONAL FACILITY PSYCHIATRIST Gender Identity Not on file Sexual Orientation Not on file documented as of this encounter Last Filed Vital Signs Vital Sign Reading Time Taken Comments Blood Pressure 128/74 06/08/2020 11:01 AM CORRECTIONAL FACILITY PSYCHIATRIST Pulse 62 06/08/2020 11:01 AM CORRECTIONAL FACILITY PSYCHIATRIST Temperature 36.7 ??C (98 ??F) 06/08/2020 11:01 AM CORRECTIONAL FACILITY PSYCHIATRIST Respiratory Rate 18 06/08/2020 11:01 AM CORRECTIONAL FACILITY PSYCHIATRIST Oxygen Saturation 95% 06/08/2020 11:01 AM CORRECTIONAL FACILITY PSYCHIATRIST Inhaled Oxygen Concentration - - Weight - - Height - - Body Mass Index - - documented in this encounter Miscellaneous Notes * Result Encounter Note - Violeta Casillas DO - 06/08/2020 10:08 PM CORRECTIONAL FACILITY PSYCHIATRIST Patient was not taking 8 mg daily as directed so he was read told to start taking 8 mg daily and plan to recheck in about 2 weeks. ECTIONAL FACILITY PSYCHIATRIST documented in this encounter Plan of Treatment Not on file documented as of this encounter Procedures Procedure Name Priority Date/Time Associated Diagnosis Comments POCT PROTHROMBIN TIME/INR Routine 06/08/2020 11:07 AM CORRECTIONAL FACILITY PSYCHIATRIST documented in this encounter Results * POCT PT/INR (06/08/2020 11:07 AM CORRECTIONAL FACILITY PSYCHIATRIST) INR, POC 1.30 HH POCT RESULTING LABORATORY Comment:INR 1.3 PT I6.7 Blood specimen (specimen) 06/08/2020 11:07 AM CORRECTIONAL FACILITY PSYCHIATRIST Violeta Casillas DO POINT OF CARE TEST ORDER ANDREZ Final Result HH POCT RESULTING LABORATORY documented in this encounter Visit Diagnoses Not on filedocumented in this encounter Home Health Visit - Care Plan Visit Details Visit Type -SN Discipline Di patricia Discipline -Mcfp Problems Problem Description Start Date Status Goals Interve ntions Homebound Status Disciplines: Mcfp, Physical Therapy Patient's homebound status 05/12/2020 Active 1 goal linked to scheduled/documen max intervention 1 goal intervention scheduled/document ed in this visit Medications Disciplines: Mcfp, Physical Therapy Management of home medications 05/12/2020 Active 1 goal linked to scheduled/documen max intervention 2 goal interventions scheduled/document ed in this visit Monitor patient's vital signs every home health visit Disciplines: Mcfp, Physical Therapy Monitor patient's vital signs every home health visit. 05/12/2020 Active 1 goal linked to scheduled/documen max intervention 1 goal intervention scheduled/document ed in this visit Standardized Guidelines Disciplines: Mcfp, Physical Therapy Standardized Guidelines 05/12/2020 Active 1 goal linked to scheduled/documen max intervention 1 goal intervention scheduled/document ed in this visit Fall Precautions/Sa fety Concerns Disciplines: Mcfp, Physical Therapy Alteration in safety 05/12/2020 Active 1 goal linked to scheduled/documen max intervention 1 goal intervention scheduled/document ed in this visit [place] Precautions Disciplines: Mcfp, Physical Therapy [place] Precautions 05/12/2020 Active 1 goal linked to scheduled/documen max intervention 1 goal intervention scheduled/document ed in this visit Depression Disciplines: Mcfp, Physical Therapy Depression 05/12/2020 Active 1 goal linked to scheduled/documen max intervention 2 goal interventions scheduled/document ed in this visit Problems with Activity - COPD Disciplines: Mcfp Decreased tolerance to normal activities related to dyspnea and fatigue 05/12/2020 Active 1 goal linked to scheduled/documen max intervention 1 goal intervention scheduled/document ed in this visit Collect Specimen/Lab Draw Disciplines: Mcfp Management of specimen samples, including lab draws, stool, urine, & tissue. 05/25/2020 Active 1 goal linked to scheduled/documen max [...] visit during episode of care Description: Home healthcare project manager to measure vital signs during every home [...] precautions Description: Demonstrate knowledge of universal precautions [place] Precautions No Demonstrate knowledge of depression Description: Demonstrate knowledge of depression. Depression No Demonstrate increased endurance Description: Patient will demonstrate increased endurance and ability to perform activities of daily living by maintenance of respiration and blood pressure while caring for self and performing routine tasks by the end of the episode of care. Problems with Activity - COPD No Complete specimen as ordered Description: Complete specimen as ordered Collect Specimen/Lab Draw No Interventions Intervention Associated Problem/Goal Status Variance [...] due to medical condition as evidenced by SHOB THAT INCREASES WITH EXERTION. Instruct on High Risk Medications Description: Instruct patient/caregiver on high-risk/high-alert medications, including: anti-convulsant, anti-retroviral, anti-coagulant, chemotherapeutic, hypo-glycemic, immunosuppressant, insulin, and opioid. Problem:Medications Goal:Understand and follow medication therapy Completed Teaching High-risk/high-alert medications (specifically WARFARIN ) with Patient. PATIENT VERBALIZED UNDERSTANDING OF [...] in absence of home care staff Completed [place] Fall Precautions Description: Assess patient safety Problem:Fall Precautions/Safety Concerns Goal:Demonstrate use of safety precautions Completed Aspects of Care Description: Instruct patient/caregiver on universal precautions and home infection control measures Problem:[place] Precautions Goal:Demonstrate knowledge of universal precautions Completed Assess signs/symptoms of Depression Description: Assess signs/symptoms of depression. Problem:Depression Goal:Demonstrate knowledge of depression Completed Assess depression Description: Assess depression. Problem:Depression Goal:Demonstrate knowledge of depression Completed Teach energy conservation Description: Teach patient/caregiver energy conservation techniques. Problem:Problems with Activity - COPD Goal:Demonstrate increased endurance Completed Energy conservation strategies reinforced with Patient. Patient verbalize understanding of energy conservation strategies. Collect Specimen/Lab Draw Description: Draw labs per aseptic technique via venipuncture. May use butterfly if hard draw. Labs PT/INR Frequency weekly. Call results to Dr. Violeta Casillas [phone]. Record number of attempts, delivery to lab method, & confirmation details. next due around 06/08/20 Problem:Collect Specimen/Lab Draw Goal:Complete specimen as ordered Completed documented in this encounter Care Teams Monument Stonecutter Relationship Specialty Start Date End Date Violeta Casillas DO PCP - General 09/29/16 09/15/21 Spring Banerjee RN [address] [place] [address] [address] [place] [address] Vacuum Form Operator 11/6/20 6/30/21 documented as of this encounter
--- OUTSIDE RECORDS SUMMARY | 2024-07-09 02:18 | XMS_ITS | Encounter Summary ---
Author Organization [facility] Home Care Servic es Address [address] [place] [address] Phone Care Team Providers Care Multiskill Operator Name Role Phone Violeta Casillas Primary Care Provider + Spring Banerjee RN Unavailable [phone] Dayana MarinaW Unavailable [phone] Reason for Visit * Auth/Cert Specialty Diagnoses / Procedures Referred By Contsylvester t Referred To Contact Referral ID Status Reason Start Date Expiration Date Visits Re quested Visits Authorized [id number] 1 1 Encounter Details Date Type Department Care Team (Late st Contact Info) Description 05/19/2020 2:00 PM MANAGER COUNTRY Home Care Visit [facility] Home Health [address] [address] Josiane Rodriguez PTA PT HOME [...] How often do you attend chur or cheondoism services? Never 05/13/2020 Do you [...] file Legal Sex Male 3:40 AM MANAGER COUNTRY Gender Identity Not on file Sexual Orientation Not on file documented as of this encounter Last Filed Vital Signs Vital Sign Reading Time Taken Comments Blood Pressure 168/74 05/19/2020 2:20 PM MANAGER COUNTRY Pulse 62 05/19/2020 2:20 PM MANAGER COUNTRY Temperature 36.6 ??C (97.9 ??F) 05/19/2020 2:20 PM CS T Respiratory Rate 18 05/19/2020 2:20 PM MANAGER COUNTRY Oxygen Saturation 94% 05/19/2020 2:20 PM MANAGER COUNTRY Inhaled Oxygen Concentration - - Weight - [...] [facility], Physical Therapy Patient's homebound status 05/12/2020 Active [...] Therapy Impaired functional mobility/balance 05/14/2020 Active - 3 problem interventions scheduled/document ed in this visit Goals Goal Associated Problem Outcome Goal Met? Visit Notes Patient recieves care at the most appropriate care setting Description: Patient receives care at the most appropriate care setting. Homebound Status No Measure vital signs during every home health visit during episode of care Description: Home psychotherapist to measure vital signs during every home [...] Patient is homebound due to unsteady gait, poor balance, fall risk, decreased endurance, dypsnea w/ minimal activity, taxing effort to leave home. Monitor [...] Actions and Narratives Actions At visit, discussion w/ david ent regarding scheduling of upcoming txs. Narratives Patient anthony all tx well. He reports he has been doing his ex daily. Continue 2x/wk as per orders. documented in this encounter Care Teams Multiskill Operator Relationship Specialty Start Date End Date Violeta Casillas DO PCP - General 09/29/16 09/15/21 Spring Banerjee, RN [address] [place], [place] [id number] Aerospace Technician 05/07/20 12/29/20 Dayana Marina LCSW [address] [place], [place] [id number] Retail Business Analyst 05/10/20 05/25/20 documented as of this encounter
--- OUTSIDE RECORDS SUMMARY | 2024-07-09 02:19 | XMS_ITS | Encounter Summary ---
Author Organization [facility] Address [address] [facility] [address] [place] [id number] Care Team Providers Care Automobile Mechanic Apprentice Name Role Phone Violeta Casillas DO Primary Care Provider + Encounter Details Date Type Department Care Team (Late st Contact Info) Description 06/03/2019 8:30 AM MIDDLE OR INTERMEDIATE SCHOOL PRINCIPAL Lab Medical [facility] [address] [place] [address] Atrial fibrillation, unspecified type (CMS/HCC) Social History Tobacco Use Types Packs/Day Years Used Date Smoking Tobacco: Former Smokeless Tobacco: Former Alcohol Use Standard Drinks/Week Comments Yes 0 (1 standard drink = 0.6 oz pur e alcohol) PHQ-2 Answer Date Recorded PHQ-2 Score 0 02/22/2019 Sex and Gender Information Value Date Recorded Sex Assigned at Not on file Legal Sex Male 3:40 AM MIDDLE OR INTERMEDIATE SCHOOL PRINCIPAL Gender Identity Not on file Sexual Orientation Not on file documented as of this encounter Plan of Treatment Not on file documented as of this encounter Procedures Procedure Name Priority Date/Time Associated Diagnosis Comments POCT INR Routine 06/03/2019 8:25 AM MIDDLE OR INTERMEDIATE SCHOOL PRINCIPAL Atrial fibrillation, unspecified type (CMS/HCC) documented in this encounter Results * POCT INR (06/03/2019 8:25 AM MIDDLE OR INTERMEDIATE SCHOOL PRINCIPAL) INR, POC 2.5 Blood specimen (specimen) (Blood, Venous) 06/03/2019 8:25 AM MIDDLE OR INTERMEDIATE SCHOOL PRINCIPAL Violeta Casillas DO POINT OF CARE TEST ORDER ANDREZ Final Result documented in this encounter Visit Diagnoses Diagnosis Atrial fibrillation, unspecified type (HCC) documented in this encounter Care Teams Automobile Mechanic Apprentice Relationship Specialty Start Date End Date Violeta Casillas DO PCP - General 09/29/16 09/15/21 documented as of this encounter
--- OUTSIDE RECORDS SUMMARY | 2024-07-09 02:19 | XMS_ITS | Encounter Summary ---
Author Organization [facility] Address [address] [facility] [address] [place] [address] Care Team Providers Care Cupola Liner Helper Name Role Phone Violeta Casillas DO Primary Care Provider + Reason for Visit * Reason Onset Date Comments Anticoagulation 07/04/2019 Encounter Details Date Type Department Care Team (Late st Contact Info) Description 07/04/2019 Telephone Medical [facility] [address] [place] [address] Ruth Hankins LPN Anticoagulation Social History Tobacco Use Types Packs/Day Years Used Date Smoking Tobacco: Former Smokeless Tobacco: Former Alcohol Use Standard Drinks/Week Comments Yes 0 (1 standard drink = 0.6 oz pur e alcohol) PHQ-2 Answer Date Recorded PHQ-2 Score 0 02/22/2019 Sex and Gender Information Value Date Recorded Sex Assigned at Not on file Legal Sex Male 3:40 AM SCAFFOLDER Gender Identity Not on file Sexual Orientation Not on file documented as of this encounter Miscellaneous Notes * Telephone Encounter - Ruth Farmer LPN - 07/04/2019 1:56 PM CST INR 1.3 on this date, patient alternates 7-[address] Casillas, patient to take an extra 2 mgtoday and recheck in one week. Spoke to patient, he is aware. FOLDER documented in this encounter Plan of Treatment Not on file documented as of this encounter Visit Diagnoses Not on filedocumented in this encounter Care Teams Cupola Liner Helper Relationship Specialty Start Date End Date Violeta Casillas DO PCP - General 09/29/16 09/15/21 documented as of this encounter
--- OUTSIDE RECORDS SUMMARY | 2024-07-09 02:19 | XMS_ITS | Encounter Summary ---
Author Organization [facility] Care Team Providers Care Assembly Machine Operator Name Role Phone Violeta Casillas DO Primary Care Provider + Encounter Details Date Type Department Care Team (Latest Contact Info) Description 08/08/2019 Travel Social History Tobacco Use Types Packs/Day Years Used Date Smoking Tobacco: Former Smokeless Tobacco: Former Alcohol Use Standard Drinks/Week Comments Yes 0 (1 standard drink = 0.6 oz pur e alcohol) PHQ-2 Answer Date Recorded PHQ-2 Score 6 07/28/2019 Sex and Gender Information Value Date Recorded Sex Assigned at Not on file Legal Sex Male 3:40 AM EXCAVATOR OPERATOR Gender Identity Not on file Sexual Orientation Not on file documented as of this encounter Plan of Treatment Not on file documented as of this encounter Visit Diagnoses Not on filedocumented in this encounter Care Teams Assembly Machine Operator Relationship Specialty Start Date End Date Violeta Casillas DO PCP - General 09/29/16 09/15/21 documented as of this encounter
--- OUTSIDE RECORDS SUMMARY | 2024-07-09 02:19 | XMS_ITS | Encounter Summary ---
Author Organization [facility] Address [address] [place] [address] Phone Care Team Providers Care Admissions Gate Attendant Name Role Phone Violeta Casillas Primary Care Provider + Spring Banerjee RN Unavailable [phone] Dayana Marina LCSW Unavailable [phone] Reason for Visit * Auth/Cert Specialty Diagnoses / Procedures Referred By Ignacia t Referred To Contact Referral ID Status Reason Start Date Expiration Date Visits Re quested Visits Authorized [id number] 1 1 Encounter Details Date Type Department Care Team (Latest Contact Info) Description 05/12/2020 11:00 AM CONCRETE FLOAT MAKER Home Care Visit [facility] [address] [address] Shanelle Guillen RN SN OASIS START OF CARE Social History Tobacco Use Types Packs/Day Years [...] often do you attend chur ch or pentecostalism services? Never 05/13/2020 Do you belong to [...] on file Legal Sex Male 3:40 AM CONCRETE FLOAT MAKER Gender Identity Not on file Sexual Orientation Not on file documented as of this encounter Last Filed Vital Signs Vital Sign Reading Time Taken Comments Blood Pressure 132/70 05/12/2020 12:39 PM CONCRETE FLOAT MAKER Pulse 74 05/12/2020 12:39 PM CONCRETE FLOAT MAKER Temperature 37.2 ??C (99 ??F) 05/12/2020 12:39 PM CONCRETE FLOAT MAKER Respiratory Rate 22 05/12/2020 12:39 PM CONCRETE FLOAT MAKER Oxygen Saturation 95% 05/12/2020 12:39 PM CONCRETE FLOAT MAKER Inhaled Oxygen Concentration - - Weight 70.3 kg (155 lb) 05/12/2020 12:39 PM CONCRETE FLOAT MAKER Height - - Body Mass Index 21.02 05/06/2020 1:01 PM CONCRETE FLOAT MAKER documented in this encounter Plan of Treatment Not on file documented as of this encounter Visit Diagnoses Not on filedocumented in this encounter Home Health Visit - Care Plan Visit Details Visit Type -SN OASIS Start o f Care Discipline -Usp Problems Problem Description Start Date Status Goals Interve ntions Homebound Status Disciplines: Usp, Physical Therapy Patient's homebound status 05/12/2020 Active 1 goal linked to scheduled/documen max intervention 1 goal intervention scheduled/document ed in this visit Medications Disciplines: Usp, Physical Therapy Management of home medications 05/12/2020 Active 1 goal linked to scheduled/documen max intervention 2 goal interventions scheduled/document ed in this visit Monitor patient's vital signs every home health visit Disciplines: Usp, Physical Therapy Monitor patient's vital signs every home health visit. 05/12/2020 Active 1 goal linked to scheduled/documen max intervention 1 goal intervention scheduled/document ed in this visit Infection Prevention Disciplines: Usp, Physical Therapy Infection Prevention 05/12/2020 Active 1 goal linked to scheduled/documen max intervention 1 goal intervention scheduled/document ed in this visit Fall Precautions/Sa fety Concerns Disciplines: Usp, Physical Therapy Alteration in safety 05/12/2020 Active 1 goal linked to scheduled/documen max intervention 1 goal intervention scheduled/document ed in this visit Depression Disciplines: Usp, Physical Therapy Depression 05/12/2020 Active 1 goal linked to scheduled/documen max intervention 1 goal intervention scheduled/document ed in this visit Problems with Activity - COPD Disciplines: Usp Decreased tolerance to normal activities related to dyspnea and fatigue 05/12/2020 Active 1 goal linked to scheduled/documen max intervention 1 goal intervention scheduled/document ed in this visit Breathing Problems - COPD Disciplines: Usp Ineffective breathing pattern related to respiratory disease 05/12/2020 Active 1 goal linked to scheduled/documen [...] visit during episode of care Description: Home nursing assistants teacher to measure vital signs during every home [...] care. Problems with Activity - COPD No Maintain respiratory baselines Description: The patient will maintain respiratory baselines as evidenced by return to optimal level of breathing within disease parameters by the end of the episode of care. Agency standard parameters: MD to be notified if systolic BP at rest <80>160, diastolic BP at rest <50>100, pulse at rest <60>110. Breathing Problems - COPD No Interventions Intervention Associated Problem/Goal [...] regimen and compliance reviewed with Patient. Patient needs reinforcement. ability to perform safe home medication administration. Medications taught ALL. PATIENT MANAGES OWN MEDICATIONS AND STATES HE DID NOT HAVE ANY TROUBLE UNTIL THE DOCTOR ORDERED NEW ONES FOR HIM. PATIENT CANNOT READ SO HE IS HAVING A DIFFICULT TIME WITH SETTING UP MEDICATIONS. SN ASSISTED DURING SN VISIT, PATIENT IDENTIFIED MEDICATIONS BY PILL COLOR AND SHAPE AND CAN STATE WHICH ONE HE TAKES AND HOW OFTEN BY VISUALIZATION OF MEDICATIONS. SN PROVIDED PATIENT WITH MED PIANO STRINGER AND SET UP MEDICATIONS FOR PATIENT. PATIENT HAD SOME OLD MEDICATIONS NO LONGER ORDERED AND PATIENT THREW THEM AWAY SO TO NOT GET CONFUSED. PATIENT VERBALIZED UNDERSTANDING OF MED PIANO STRINGER AND WHEN TO TAKE MEDICATIONS Instruct on High Risk Medications Description: Instruct patient/caregiver on high-risk/high-alert medications, including: anti-convulsant, anti-retroviral, anti-coagulant, chemotherapeutic, hypo-glycemic, immunosuppressant, insulin, and opioid. Problem:Medications Goal:Understand and follow medication therapy Completed Teaching High-risk/high-alert medications (specifically WARFARIN ) with Patient. SN EDUCATED PATIENT/CAREGIVERS ON ANTICOAGULATION THERAPY, ADMINISTRATION SCHEDULES SUCH TO TAKE EXACTLY PRESCRIBED AND TO TRY TO TAKE DOSE AT THE SAME TIME EVERY DAY. SN EDUCATED PATIENT/CAREGIVERS ON SIDE EFFECTS OF ANTICOAGULATION AND S&S TO WATCH FOR WHILE TAKING ANTICOAGULATION SUCH RED OR BROWN URINE, BOWEL MOVEMENTS THAT ARE RED OR LOOK LIKE TAR, BLEEDING FROM THE GUMS OR NOSE THAT DOES NOT STOP QUICKLY, VOMIT THAT IS BROWN OR BRIGHT RED, ANYTHING RED IN COLOR THAT YOU COUGH UP, SEVERE PAIN SUCH A HEADACHE OR STOMACHACHE, UNUSUAL BRUISING, A CUT THAT DOES NOT STOP BLEEDING, A SERIOUS FALL OR BUMP OF THE HEAD, DIZZINESS OR WEAKNESS AND TO NOTIFY PHYSICIAN IF ANY OF THESES ARE NOTED. PATIENT VERBALIZED UNDERSTANDING. Monitor Vital Signs Description: Monitor blood pressure, [...] Problem:Infection Prevention Goal:Verbalize signs of infection Completed SN EDUCATED PATIENT/CAREGIVERS ON INFECTION PREVENTION MEASURES SUCH FREQUENT HANDWASHING USING SOAP AND WATER OR HAND ELECTRICAL ELECTRONICS ENGINEERS, MAINTAINING CLEANLINESS OF FREQUENTLY TOUCHED AND FREQUENTLY USED ITEMS AND EQUIPMENT. SN EDUCATED ON STAYING CURRENT WITH IMMUNIZATIONS AND ENCOURAGED ADEQUATE DIET AND FLUID INTAKE WELL STAYING AWAY FROM CROWDS AND PERSONS WITH INFECTIONS. PATIENT VERBALIZED UNDERSTANDING AND IMPORTANCE OF FREQUENT HAND WASHING. PATIENT VERBALIZED UNDERSTANDING OF EDUCATION PROVIDED. High Fall Risk Precautions Description: Instruct patient/caregiver [...] NEEDED AND HAND RAILS TO PREVENT FALLS. PATIENT VERBALIZED UNDERSTANDING. Assess depression Description: Assess depression. Problem:Depression Goal:Demonstrate knowledge of depression Completed PATIENT DENIES ANY WORSENING S&S OF DEPRESSION OR ANY SUICIDAL THOUGHTS OR IDEATIONS. Teach energy conservation Description: Teach patient/caregiver energy conservation techniques. Problem:Problems with Activity - COPD Goal:Demonstrate increased endurance Completed Energy conservation strategies instructed with Patient. Patient verbalizes ability to perform exercises as instructed. Instruct breathing techniques Description: Instruct patient/caregiver in deep-breathing and coughing exercises. Problem:Breathing Problems - COPD Goal:Maintain respiratory baselines Completed COPD EDUCATION PROVIDED AND PATIENT/CAREGIVER EDUCATED ON SMOKING CESSATION IF STILL SMOKING, SYMPTOMS OF COPD SUCH TIGHTNESS IN CHEST, WHEEZING, COUGHING THAT DOESN'T GO AWAY, EXCESSIVE MUCUS PRODUCTION, AND/OR FEELING WEAK AND TIRED. SN EDUCATED ON BREATHING TECHNIQUES SUCH PURSED LIP BREATHING ESPECIALLY WHEN SOB, STAYING AWAY FROM FUMES, DUST AND SMOKE, TAKING PRESCRIBED MEDICATIONS, AVOIDING SICK PEOPLE, PACING SELF SO TO NOT OVER EXERT AND TO CALL PHYSICIAN IF FEELS WORSE. PATIENT VERBALIZED UNDERSTANDING. documented in this encounter Home Health Visit - Actions and Narratives Actions PATIENT INQUIRING ABOUT GETT ING SOME NEW GLASSES AND A HEARING AID HE STATES HE NEEDS NEW GLASSES AND A HEARING AID BUT CANNOT AFFORD IT. SN EXPLAINED THAT PATIENT HAS ACCOUNT STRATEGIST CONSULT WHO HOPEFULLY WILL BE ABLE TO ASSIST WITH FINANCIAL NEEDS. PATIENT VERBALIZED UNDERSTANDING. Narratives M1820 - Ability to Dress Low er Body Documented Answer: 1 - Able to dress lower body without assistance if clothing and shoes are laid out or handed to the patient. Recommendation: 2 - Someone must help the patient put on undergarments, slacks, socks or nylons, and shoes. Clinical documentation reflects a MAHC-10 score greater than or equal to 4- patient is at risk for falls. For the purposes of this OASIS item, assistance includes verbal cuing and/or supervision. M1033 - Risk for Hospitalization Documented Answer: 1 - History of falls (2 or more falls - or any fall with an injury - in the past 12 months);2 - Unintentional weight loss of a total of 10 pounds or more in the past 12 months;6 - Reported or observed history of difficulty complying with any medical instructions (for example, medications, diet, exercise) in the past 3 months;7 - Currently taking 5 or more medications Recommendation: 1 - History of falls (2 or more falls - or any fall with an injury - in the past 12 months);2 - Unintentional weight loss of a total of 10 pounds or more in the past 12 months;6 - Reported or observed history of difficulty complying with any medical instructions (for example, medications, diet, exercise) in the past 3 months;7 - Currently taking 5 or more medications;9 - Other risk(s) not listed in 1 - 8 the patient is illiterate. SK3048 - Mobility: Code the patient? s usual performance at SOC/KAREN for each activity using the 6-point scale. If activity was not attempted at SOC/KAREN, code the reason. Code the patient? s discharge goal(s) using the 6-point scale. Use of codes 07, 09, 10 or 88 is permissible to code discharge goal(s). Based on the documentation, human assistance such as verbal cues/steadying was required to complete this activity. HN2040 [id number].D.1 - Sit to stand: The ability to come to a standing position from sitting in a chair, wheelchair, or on the side of the bed. Documented Answer: 05. Setup or clean-up assistance ? [place] sets up or cleans up; patient completes activity. [place] assists only prior to or following the activity. Recommendation: 04. Supervision or touching assistance ? [place] provides verbal cues and/or touching/steadying and/or contact guard assistance as patient completes activity. Assistance may be provided throughout the activity or intermittently. [id number].E.1 - Chair/lbs-ag-nlpyh transfer: The ability to transfer to and from a bed to a chair (or wheelchair). Documented Answer: 05. Setup or clean-up assistance ? [place] sets up or cleans up; patient completes activity. [place] assists only prior to or following the activity. Recommendation: 04. Supervision or touching assistance ? [place] provides verbal cues and/or touching/steadying and/or contact guard assistance as patient completes activity. Assistance may be provided throughout the activity or intermittently. TN1195 GL4630.G.1 - Car Transfer: The ability to transfer in and out of a car or van on the passenger side. Does not include the ability to open/close door or fasten seat belt. Documented Answer: 05. Setup or clean-up assistance ? [place] sets up or cleans up; patient completes activity. [place] assists only prior to or following the activity. Recommendation: 04. Supervision or touching assistance ? [place] provides verbal cues and/or touching/steadying and/or contact guard assistance as patient completes activity. Assistance may be provided throughout the activity or intermittently. HI3046 GH3665.I.1 - Walk 10 feet: Once standing, the ability to walk at least 10 feet in a room, corridor, or similar space. If SOC/KAREN performance is coded 07, 09, 10 or 88, skip to [id number], 1 step (curb) Documented Answer: 05. Setup or clean-up assistance ? [place] sets up or cleans up; patient completes activity. [place] assists only prior to or following the activity. Recommendation: 04. Supervision or touching assistance ? [place] provides verbal cues and/or touching/steadying and/or contact guard assistance as patient completes activity. Assistance may be provided throughout the activity or intermittently. CB9330 [id number].[id number] - Walk 50 feet with two turns: Once standing, the ability to walk 50 feet and make two turns. Documented Answer: 05. Setup or clean-up assistance ? [place] sets up or cleans up; patient completes activity. [place] assists only prior to or following the activity. Recommendation: 04. Supervision or touching assistance ? [place] provides verbal cues and/or touching/steadying and/or contact guard assistance as patient completes activity. Assistance may be provided throughout the activity or intermittently. M1028 - Comorbidities and Co-existing Conditions Recommendation: 3 - None of the above none documented 05/17/20 -EVI Ray Chart review and recommendations completed by:EDDIE Ham documented in this encounter Care Teams Admissions Gate Attendant Relationship Specialty Start Date End Date Violeta Casillas DO PCP - General 09/29/16 09/15/21 Spring Banerjee RN [address] [place], [place] [phone] Reinstatement Clerk 05/07/20 12/29/20 Dayana Marina LCSW [address] [address] [place], [place] [phone] Bladder Trimmer 05/10/20 05/25/20 documented as of this encounter
--- OUTSIDE RECORDS SUMMARY | 2024-07-09 02:19 | XMS_ITS | Encounter Summary ---
Author Organization [facility] Care Team Providers Care Family Dinner Service Specialist Name Role Phone Violeta Casillas DO Primary Care Provider + Encounter Details Date Type Department Care Team (Latest Contact Info) Description 04/25/2019 Travel Social History Tobacco Use Types Packs/Day Years Used Date Smoking Tobacco: Former Smokeless Tobacco: Former Alcohol Use Standard Drinks/Week Comments Yes 0 (1 standard drink = 0.6 oz pur e alcohol) PHQ-2 Answer Date Recorded PHQ-2 Score 0 02/22/2019 Sex and Gender Information Value Date Recorded Sex Assigned at Not on file Legal Sex Male 3:40 AM CARDIOPULMONARY SPECIALIST Gender Identity Not on file Sexual Orientation Not on file documented as of this encounter Plan of Treatment Not on file documented as of this encounter Visit Diagnoses Not on filedocumented in this encounter Care Teams Family Dinner Service Specialist Relationship Specialty Start Date End Date Violeta Casillas DO PCP - General 09/29/16 09/15/21 documented as of this encounter
--- OUTSIDE RECORDS SUMMARY | 2024-07-09 02:19 | XMS_ITS | Encounter Summary ---
Author Organization [facility] Address [address] [address] Care Team Providers Care Chairman Emeritus Name Role Phone Violeta Casillas DO Primary Care Provider + Encounter Details Date Type Department Care Team (Late st Contact Info) Description 08/08/2019 Telephone [facility] [address] [place] [address] Violeta Casillas DO [address] [place] [address] Social History Tobacco Use Types Packs/Day Years Used Date Smoking Tobacco: Former Smokeless Tobacco: Former Alcohol Use Standard Drinks/Week Comments Yes 0 (1 standard drink = 0.6 oz pur e alcohol) PHQ-2 Answer Date Recorded PHQ-2 Score 6 07/28/2019 Sex and Gender Information Value Date Recorded Sex Assigned at Not on file Legal Sex Male 3:40 AM CLINICAL MEDICAL TRANSCRIPTIONIST Gender Identity Not on file Sexual Orientation Not on file documented as of this encounter Ordered Prescriptions Prescription Sig Dispense Quantity Refills Last Filled Start Date End Date doxazosin (CARDURA) 2 mg tabletIndications: Hypertension, essential,Benign prostatic hyperplasia with urinary hesitancy Take 1 tablet (2 mg total) by mouth nightly 90 tablet 3 08/08/2019 0 documented in this encounter Miscellaneous Notes * Telephone Encounter - Kendra Dickerson - 08/08/2019 2:38 PM CST Pt notified ICAL MEDICAL TRANSCRIPTIONIST * Telephone Encounter - Violeta Casillas DO - 08/08/2019 10:47 AM CLINICAL MEDICAL TRANSCRIPTIONIST Ninety day supply with 3 refills sent to local pharmacy. ICAL MEDICAL TRANSCRIPTIONIST * Telephone Encounter - Kendra Dickerson - 08/08/2019 9:35 AM CST Pt stopped by office and wanted to let you know the last medicine prescribed for him is working well but pt couldn't tell me what it was ICAL MEDICAL TRANSCRIPTIONIST documented in this encounter Plan of Treatment Not on file documented as of this encounter Visit Diagnoses Diagnosis Hypertension, essential Unspecified essential hypertension Benign prostatic hyperplasia with urinary hesitancy documented in this encounter Discontinued Medications Medication Sig Discontinue Reason Start Date End Da te doxazosin (CARDURA) 2 mg tabletIndications:Hypert ension, essential,Benign prostatic hyperplasia with urinary hesitancy Take 0.5 tablets (1 mg total) by mouth nightly for 7 days, THEN 1 tablet (2 mg total) nightly for 23 days. Reorder 07/28/2019 08/08/2019 documented as of this encounter Care Teams Chairman Emeritus Relationship Specialty Start Date End Date Violeta Casillas DO PCP - General 09/29/16 09/15/21 documented as of this encounter
--- OUTSIDE RECORDS SUMMARY | 2024-07-09 02:19 | XMS_ITS | Encounter Summary ---
Author Organization [facility] Address [address] [place] [id number] Care Team Providers Care Associate Property Manager Name Role Phone Violeta Casillas DO Primary Care Provider + Reason for Visit * Reason Comments URI cough-productive yel low Encounter Details Date Type Department Care Team (Late st Contact Info) Description 04/21/2019 11:30 AM CDT Office Visit [facility] [address] [place] [address] Violeta Casillas DO [address] [place] [address] Bronchitis (Primary Dx); Chronic obstructive pulmonary disease with acute lower respiratory infection (CMS/HCC); Chronic atrial fibrillation Social History Tobacco Use Types Packs/Day Years Used Date Smoking Tobacco: Former Smokeless Tobacco: Former Alcohol Use Standard Drinks/Week Comments Yes 0 (1 standard drink = 0.6 oz pur e alcohol) PHQ-2 Answer Date Recorded PHQ-2 Score 0 02/22/2019 Sex and Gender Information Value Date Recorded Sex Assigned at Not on file Legal Sex Male 3:40 AM MERCHANDISING ASSISTANT Gender Identity Not on file Sexual Orientation Not on file documented as of this encounter Last Filed Vital Signs Vital Sign Reading Time Taken Comments Blood Pressure 140/62 04/21/2019 11:24 AM CDT Pulse 68 04/21/2019 11:24 AM CDT Temperature 37.1 ??C (98.7 ??F) 04/21/2019 11:24 AM C DT Respiratory Rate 18 04/21/2019 11:24 AM CDT Oxygen Saturation 93% 04/21/2019 11:24 AM CDT Inhaled Oxygen Concentration - - Weight 69 kg (152 lb 3.2 oz) 04/21/2019 11:24 AM CDT Height 185.4 cm (6' 0.99 ) 04/21/2019 11:24 AM C DT Body Mass Index 20.08 04/21/2019 11:24 AM CDT documented in this encounter Patient Instructions * Patient Instructions* Violeta Casillas DO - 04/21/2019 11:30 AM CDT Try taking 5mg of warfarin until the antibiotic is complete or I tell you differently. Recheck the INR early Sunday morning and call back if we haven't called you by 1pm. Get some robitussin dm syrup to help cough and congestion. documented in this encounter Ordered Prescriptions Prescription Sig Dispense Quantity Refills Last Filled Start Date End Date dextromethorphan-g uaifenesin 5-100 mg/5 mL liquid Take 5-10 mL by mouth every 4 (four) hours as needed (cough and congestion) 1 Bottle 2 04/21/2019 1 cephalexin (KEFLEX) 500 mg capsuleIndications :Bronchitis Take 2 capsules (1,000 mg total) by mouth 2 (two) times a day for 10 days 40 capsule 04/21/2019 9 documented in this encounter Progress Notes * Violeta Casillas DO - 04/21/2019 11:30 AM CDT Subjective/Objective Patient ID: Noé Davila is a 83 y.o. male. Chief Complaint URI (cough-productive yellow) Vitals: 04/21/19 1124 BP: 140/62 Pulse: 68 Resp: 18 Temp: 37.1 ??C (98.7 ??F) TempSrc: Temporal SpO2: 93% Weight: 69 kg (152 lb 3.2 oz) Height: 185.4 cm (6' 0.99 ) Body mass index is 20.08 kg/m??. URI This is a new problem. The current episode started more than 1 month ago. The problem has been waxing and waning. Maximum temperature: Subjective. Associated symptoms include congestion, coughing, headaches, rhinorrhea and wheezing. Pertinent negatives include no chest pain (tightness), sinus pain or sore throat. Treatments tried: some otc cold and sinus medication. The treatment provided no relief. I have reviewed medical, social, and family histories in depth with patient and/or their employer relations representative. Review of Systems HENT: Positive for congestion and rhinorrhea. Negative for sinus pain and sore throat. Respiratory: Positive for cough and wheezing. Cardiovascular: Negative for chest pain (tightness). Neurological: Positive for headaches. Physical Exam Vitals signs and nursing note reviewed. Constitutional: General: He is not in acute distress. Appearance: He is well-developed. HENT: Head: Normocephalic and atraumatic. Eyes: Conjunctiva/sclera: Conjunctivae normal. Cardiovascular: Rate and Rhythm: Normal rate. Rhythm irregularly irregular. Heart sounds: Normal heart sounds. No murmur. No friction rub. No gallop. Pulmonary: Effort: Pulmonary effort is normal. No respiratory distress. Breath sounds: Normal breath sounds. Abdominal: General: Bowel sounds are normal. Skin: Findings: No erythema or rash. Neurological: Mental Status: He is alert and oriented to person, place, and time. Cranial Nerves: No cranial nerve deficit. Psychiatric: Behavior: Behavior normal. Assessment/Plan There are no diagnoses linked to this encounter. BMI Follow-up includes: education provided. No orders of the defined types were placed in this encounter. Current Outpatient Medications Medication Sig Dispense Refill ??? amitriptyline (ELAVIL) 10 mg tablet TAKE 1 TABLET BY MOUTH ONCE DAILY AT BEDTIME 30 tablet 0 ??? lovastatin (MEVACOR) 20 mg tablet TAKE 2 TABLETS BY MOUTH NIGHTLY 180 tablet 1 ??? senna (SENOKOT) 8.6 mg tablet Take 1 tablet by mouth daily as needed for constipation. ??? warfarin (COUMADIN) 1 mg tablet TAKE 2 TABLETS BY MOUTH ONCE DAILY DIRECTED BASED ON ROUTINEINR MEASUREMENT. CURRENTLY ON 7MG DAILY 90 tablet 2 ??? warfarin (COUMADIN) 5 mg tablet TAKE ONE TABLET BY MOUTH AT BEDTIME *TAKE WITH TWO 1 MG TABLETSTO EQUAL 7 MG AT BEDTIME* 90 tablet 2 No current facility-administered medications for this visit. This note was dictated using [employer] voice recognition software. Variances in spelling and vocabulary are possible and errors are unintentional. documented in this encounter Miscellaneous Notes * Assessment & Plan Note - Violeta Casillas DO - 04/21/2019 11:32 PM CDT Associated Problem(s): Chronic atrial fibrillation (HCC) Try taking 5mg of warfarin until the antibiotic is complete or I tell you differently. Recheck the INR early Sunday morning and call back if we haven't called you by 1pm. Get some robitussin dm syrup to help cough and congestion. * Assessment & Plan Note - Violeta Casillas DO - 04/21/2019 11:31 PM CDT Associated Problem(s): Chronic obstructive pulmonary disease (HCC) Will give Keflex (cephalexin) today and robitussin dm today. I can add prednisone and chest x-ray if not having improvement. documented in this encounter Plan of Treatment Not on file documented as of this encounter Visit Diagnoses Diagnosis Bronchitis- Primary Bronchitis, not specified as acute or chronic Chronic obstructive pulmonary disease with acute lower respiratory infection (HCC) Chronic atrial fibrillation (HCC) Atrial fibrillation documented in this encounter Care Teams Associate Property Manager Relationship Specialty Start Date End Date Violeta Casillas DO PCP - General 09/29/16 09/15/21 documented as of this encounter
--- OUTSIDE RECORDS SUMMARY | 2024-07-09 02:19 | XMS_ITS | Encounter Summary ---
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 Phone Violeta Casillas Primary Care Provider + Reason for Visit * Reason Comments Fall Altered Mental Status Head Injury Encounter Details Date Type Department Care Team (Late st Contact Info) Description 12/13/2019 3:20 PM CDT - 12/13/2019 6:10 PM CDT Emergency Emergency Department [address] [place] [address] [phone] [place] [address] [place] [id number] Fall, initial encounter (Primary Dx); Transient alteration of awareness; Concussion without loss of consciousness, initial encounter Discharge Disposition: Discharge to home or self [...] on file 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 Gender Identity Not on file Sexual Orientation Not on file documented as of this encounter Last Filed Vital Signs Vital Sign Reading Time Taken Comments Blood Pressure 168/90 12/13/2019 6:04 PM CDT Pulse 88 12/13/2019 6:04 PM CDT Temperature 36.7 ??C (98.1 ??F) 12/13/2019 6:04 PM CD T Respiratory Rate 18 12/13/2019 6:04 PM CDT Oxygen Saturation 96% 12/13/2019 6:04 PM CDT Inhaled Oxygen Concentration - - Weight 70 kg (154 lb 4.8 oz) 12/13/2019 3:21 PM CDT Height 182.9 cm (6') 12/13/2019 3:21 PM CDT Body Mass Index 20.93 12/13/2019 3:21 PM CDT documented in this encounter Discharge Diagnoses Diagnosis Concussion without loss of consciousness, initial encounter - CONCUSSION WITHOUT LOSS OF CONSCIOUSNESS, INITIAL ENCOUNTER Other specified injuries of head, initial encounter - OTHER SPECIFIED INJURIES OF HEAD, INITIAL ENCOUNTER Fall on and from ladder, initial encounter - FALL ON AND FROM LADDER, INITIAL ENCOUNTER Activity, other specified - ACTIVITY, OTHER SPECIFIED Unspecified place or not applicable - UNSPECIFIED PLACE OR NOT APPLICABLE Chronic obstructive pulmonary disease, unspecified (HCC) - CHRONIC OBSTRUCTIVE PULMONARY DISEASE, UNSPECIFIED Chronic atrial fibrillation, unspecified (HCC) - CHRONIC ATRIAL FIBRILLATION, UNSPECIFIED [facility] (current) use of anticoagulants - 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 * Concussion (AfterCare(R) Instructions(ER/ED)) (Sudanese) * Fall Due To Dizziness, Weakness, Or Loss Of Balance (Sudanese) * Altered Level of Consciousness (LOC) (Sudanese) documented in this encounter Medications at Time of Discharge amitriptyline (ELAVIL) 10 mg tablet TAKE 1 TABLET BY MOUTH AT BEDTIME 30 tablet 12/04/2019 0 dextromethorphan-g uaifenesin 5-100 mg/5 mL liquid Take 5-10 mL by mouth every 4 (four) hours as needed (cough and congestion) 1 Bottle 2 04/21/2019 1 doxazosin (CARDURA) 2 mg tabletIndications: Hypertension, essential,Benign prostatic hyperplasia with urinary hesitancy Take 1 tablet (2 mg total) by mouth nightly 90 tablet 3 08/08/2019 0 fluticasone propionate (FLONASE) 50 mcg/actuation nasal sprayIndications:C hronic rhinitis Administer 2 sprays into each nostril daily 16 g 5 07/28/2019 1 rosuvastatin (CRESTOR) 10 mg tablet Take 1 tablet (10 mg total) by mouth daily 90 tablet 3 08/15/2019 0 senna (SENOKOT) 8.6 mg tabletIndications: Chronic idiopathic constipation Take 1 tablet by mouth daily as needed for constipation. 12/17/2017 1 warfarin (COUMADIN) 1 mg tablet TAKE 2 TABLETS BY MOUTH ONCE DAILY DIRECTED 90 tablet 12/04/2019 0 warfarin (COUMADIN) 5 mg tablet TAKE ONE TABLET BY MOUTH AT BEDTIME *TAKE WITH TWO 1 MG TABLETS TO EQUAL 7 MG AT BEDTIME* 30 tablet 6 06/04/2019 0 documented as of this encounter Discharge Disposition Disposition Code Departure Means Destination Discharge to home or self care documented in this encounter ED Notes * Mikey Renner Jr., MD - 12/13/2019 4:20 PM CDT Images from the original note were not included. HPI Chief Complaint Patient presents with ??? Fall ??? Altered Mental Status ??? Head Injury Pt fall from ladder. Amnestic to event. No direct witness. However, witness arrived withing 1-2 minutes. States patient dazed. Only pt complaintm left elbow pain with wound. Patient History Patient Active Problem List Diagnosis Date Noted ??? Hypertension, essential 07/28/2019 ??? Chronic rhinitis 07/28/2019 ??? Hearing difficulty of both ears 12/18/2018 ??? 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 Prediabetes 06/18/2017 ??? Chronic idiopathic constipation 12/13/2016 ??? Pure hypercholesterolemia 2015 Class: Chronic ??? Chronic atrial fibrillation (CMS/HCC) 2015 Class: Temporary ??? Recurrent major depressive disorder (CMS/HCC) 2015 Class: Temporary ??? Chronic obstructive pulmonary disease (CMS/HCC) 02/15/2015 Class: Chronic ??? Benign prostatic hyperplasia with urinary hesitancy 02/15/2015 Class: Chronic ??? Male erectile disorder 02/15/2015 Class: Chronic Past Medical History: Diagnosis Date ??? Atrial fibrillation (CMS/HCC) ??? COPD (chronic obstructive pulmonary disease) (CMS/HCC) Past Surgical History: Procedure Laterality Date ??? CHOLECYSTECTOMY 2008 Cholecystectomy ??? OTHER SURGICAL HISTORY gastric surgery ??? OTHER SURGICAL HISTORY amputation of left index finger ??? PROSTATECTOMY prostatectomy Family History Problem Relation Age of Onset ??? Heart disease Father Heart disease; Social History Tobacco Use ??? Smoking status: Former Smoker ??? Smokeless tobacco: Former User Substance Use Topics ??? Alcohol use: Yes ??? Drug use: No Social History Social History Narrative ??? Not on file Review of Systems Review of Systems Constitutional: Negative for chills and fever. HENT: Negative for ear pain and sore throat. Eyes: Negative for pain and visual disturbance. Respiratory: Negative for cough and shortness of breath. Cardiovascular: Negative for chest pain and palpitations. Gastrointestinal: Negative for abdominal pain and vomiting. Genitourinary: Negative for dysuria and hematuria. Musculoskeletal: Negative for arthralgias and back pain. Skin: Negative for color change and rash. Neurological: Negative for dizziness, seizures, syncope, facial asymmetry, speech difficulty, weakness, light-headedness and headaches. All other systems reviewed and are negative. Physical Exam ED Triage Vitals Temp Pulse Resp BP SpO2 12/13/19 1521 12/13/19 1520 12/13/19 1520 12/13/19 1526 12/13/19 1521 36.8 ??C (98.3 ??F) 91 20 143/86 93 % Temp src Heart Rate Source Patient Position BP Location FiO2 (%) 12/13/19 1521 -- -- -- -- Oral Physical Exam Vitals signs and nursing note reviewed. Constitutional: General: He is not in acute distress. Appearance: Normal appearance. He is well-developed. HENT: Head: Normocephalic and atraumatic. Right Ear: External ear normal. Left Ear: External ear normal. Nose: No rhinorrhea. Mouth/Throat: Pharynx: No oropharyngeal exudate or posterior oropharyngeal erythema. Eyes: General: No scleral icterus. Conjunctiva/sclera: Conjunctivae normal. Pupils: Pupils are equal, round, and reactive to light. Neck: Musculoskeletal: Full passive range of motion without pain, normal range of motion and neck supple. Thyroid: No thyromegaly. Vascular: No JVD. Trachea: No tracheal deviation. Cardiovascular: Rate and Rhythm: Normal rate and regular rhythm. Heart sounds: Normal heart sounds, S1 normal and S2 normal. No murmur. No friction rub. No gallop. Pulmonary: Effort: Pulmonary effort is normal. No accessory muscle usage or respiratory distress. Breath sounds: Normal breath sounds. No wheezing, rhonchi or rales. Chest: Chest wall: No mass, lacerations, deformity, swelling, tenderness, crepitus or edema. There is no dullness to percussion. Abdominal: General: Bowel sounds are normal. There is no distension. Palpations: Abdomen is soft. There is no hepatomegaly, splenomegaly or mass. Tenderness: There is no abdominal tenderness. Musculoskeletal: Normal range of motion. General: Tenderness and signs of injury present. No swelling or deformity. Right forearm: He exhibits tenderness and laceration. He exhibits no bony tenderness, no swelling, no edema and no deformity. Arms: Right lower leg: No edema. Left lower leg: No edema. Comments: Left elbow skin tear/supervicial avulsion. 2X2 cm. Not amenable to closure. Partial thickness Skin: General: Skin is warm and dry. Capillary Refill: Capillary refill takes less than 2 seconds. Coloration: Skin is not jaundiced or pale. Findings: Lesion present. No bruising, ecchymosis, erythema or rash. Neurological: General: No focal deficit present. Mental Status: He is alert and oriented to person, place, and time. Cranial Nerves: No cranial nerve deficit. Sensory: No sensory deficit. Motor: No weakness. Coordination: Coordination normal. Gait: Gait normal. Deep Tendon Reflexes: Reflexes normal. Psychiatric: Speech: Speech normal. Behavior: Behavior normal. Thought Content: Thought content normal. [facility] ED Course as of Dec 12 1745 Time: 12/12 1742 Comment: Reviewed all findings with family. No untoward events during observation. Appropriate for discharge. Patient and Family agrees. By: Mikey Renner Jr., MD Final diagnoses: Fall, initial encounter Transient alteration of awareness Concussion without loss of consciousness, initial encounter Mikey Renner Jr., MD 12/13/191745 * Katlyn Howe RN - 12/13/2019 3:20 PM CDT Pt fell from 8 foot ladder while hanging wire, landed on concrete. Pt does not recall the fall or the reason for falling. Pt was alert to self only on EMS arrival. Has various skin tears and abrasions to the left arm/hand. Pt is on a blood thinner. * Luna Partida - 12/13/2019 3:20 PM CDT Bed: ED14 Expected date: 12/13/19 Expected time: 3:12 PM Means of arrival: Ambulance Comments: documented in this encounter Plan of Treatment Not on file documented as of this encounter Procedures Procedure Name Priority Date/Time Associated Diagnosis Comments XR ELBOW LEFT 2 OR MORE VIEWS ED 12/13/2019 5:[address] HEAD WO CONTRAST ED 12/13/2019 3 [address] CERVICAL SPINE WO CONTRAST ED 12/13/2019 3:46 PM CDT EGFR STAT 12/13/2019 3:26 PM CDT DIFFERENTIAL AUTO STAT 12/13/2019 3:2 6 PM CDT CBC WITH AUTO DIFFERENTIAL STAT 12/13/2019 3:26 PM CDT APTT STAT 12/13/2019 3:26 PM CDT PROTIME-INR STAT 12/13/2019 3:26 PM CDT TROPONIN T STAT 12/13/2019 3:26 PM CDT CHOLESTEROL, LDL, DIRECT STAT 12/13/2019 3:26 PM CDT COMPREHENSIVE METABOLIC PANEL STAT 12/13/2019 3:26 PM CDT ECG 12-LEAD STAT 12/13/2019 3:24 PM CDT documented in this encounter Results * XR Elbow Left 2 or More Views (12/13/2019 5:04 PM CDT) Anatomical Region Laterality Modality Upper Extremities, Elbow Left Compute d Radiography 12/14/2019 3:21 PM CDT Impressions 12/14/2019 3:22 PM CDT No acute fractures. Electronically signed by: Corey Garcia MD Narrative 12/14/2019 3:22 PM CDT STUDY DESCRIPTION: XR ELBOW LEFT 2 VIEWS TECHNIQUE: 3 Views of left elbow COMPARISON STUDIES: None HISTORY: Elbow pain injury FINDINGS: No visible fractures or other acute focal osseous abnormalities are noted. Procedure Note Corey Garcia MD - 12/14/2019 STUDY DESCRIPTION: XR ELBOW LEFT 2 VIEWS TECHNIQUE: 3 Views of left elbow COMPARISON STUDIES: None HISTORY: Elbow pain injury FINDINGS: No visible fractures or other acute focal osseous abnormalities are noted. IMPRESSION: No acute fractures. Electronically signed by: Corey Garcia MD Mikey Renner Jr., MD IMG XR PROCEDURES Fin al Result * CT Head WO Contrast (12/13/2019 3:47 PM CDT) Anatomical Region Laterality Modality Head and Neck N/A Computed Tomogra phy 12/13/2019 4:08 PM CDT Impressions 12/13/2019 4:09 PM CDT 1. No acute intracranial abnormality identified. Report was completed within 24 hours. Electronically signed by: Corey Garcia MD Narrative 12/13/2019 4:09 PM CDT STUDY DESCRIPTION: CT HEAD WO CONTRAST TECHNIQUE: Axial images obtained at 5 mm intervals with coronal and sagittal reconstructed images at 2 mm intervals. Without IV contrast. COMPARISON: None HISTORY: fall with loc FINDINGS: There is diffuse atrophy and chronic white matter microvascular ischemic changes. No visible intra-articular extra-axial hemorrhage is seen. No visible fractures are identified. There is no evidence of mass, midline shift or hemorrhage. Ventricles and basilar cisterns appear unremarkable. ? The he-white junction appears well preserved diffusely No extra-axial fluid collections are seen. The osseous structures show no acute abnormalities. Procedure Note Corey Garcia MD - 12/13/2019 STUDY DESCRIPTION: CT HEAD WO CONTRAST TECHNIQUE: Axial images obtained at 5 mm intervals with coronal and sagittal reconstructed images at 2 mm intervals. Without IV contrast. COMPARISON: None HISTORY: fall with loc FINDINGS: There is diffuse atrophy and chronic white matter microvascular ischemic changes. No visible intra-articular extra-axial hemorrhage is seen. No visible fractures are identified. There is no evidence of mass, midline shift or hemorrhage. Ventricles and basilar cisterns appear unremarkable. The he-white junction appears well preserved diffusely No extra-axial fluid collections are seen. The osseous structures show no acute abnormalities. IMPRESSION: 1. No acute intracranial abnormality identified. Report was completed within 24 hours. Electronically signed by: Corey Garcia MD Rey Romero DO IMG CT PROCEDURES Final Resul t * CT Cervical Spine WO Contrast (12/13/2019 3:46 PM CDT) Anatomical Region Laterality Modality Spine N/A Computed Tomogra phy 12/13/2019 4:09 PM CDT Impressions 12/13/2019 4:13 PM CDT Severe cervical spondylosis. No visible acute fractures Electronically signed by: Corey Garcia MD Narrative 12/13/2019 4:13 PM CDT STUDY DESCRIPTION: CT CERVICAL SPINE WO CONTRAST TECHNIQUE: 2 mm multi planar reconstructions were obtained through the cervical spine. COMPARISON STUDIES: None HISTORY: Neck pain injury FINDINGS: There is diffuse disc space narrowing and degenerative facet disease throughout the cervical spine. No visible acute fractures are identified. The C1-2 level there is severe hypertrophic changes of the transverse ligament posterior to the odontoid process with some calcifications. This effaces the thecal sac abuts but does not compress the spinal cord. C2-3 shows mild broad-based disc bulge moderate least severe degenerative facet disease of side greater than right slight narrowing of the left neural foramen is present. C3-4 shows posterior lateral spondylotic ridging mild broad-based disc bulge and severe hypertrophic degenerative facet disease with severe bilateral neural foraminal stenosis. C4-5 shows severe degenerative facet disease spondylotic ridging eccentric along the right posterior lateral margin. There is bilateral neural foraminal stenosis right side greater than left. C5-6 also shows broad-based spondylotic ridging moderate hypertrophic degenerative facet disease and bilateral neural foraminal stenosis. C6-7 also shows some mild central disc bulge and posterior lateral spondylotic ridging and bilateral neural foraminal stenosis. Lung apices are clear. The osseous structures show no acute focal lesions. Procedure Note Corey Garcia MD - 12/13/2019 STUDY DESCRIPTION: CT CERVICAL SPINE WO CONTRAST TECHNIQUE: 2 mm multi planar reconstructions were obtained through the cervical spine. COMPARISON STUDIES: None HISTORY: Neck pain injury FINDINGS: There is diffuse disc space narrowing and degenerative facet disease throughout the cervical spine. No visible acute fractures are identified. The C1-2 level there is severe hypertrophic changes of the transverse ligament posterior to the odontoid process with some calcifications. This effaces the thecal sac abuts but does not compress the spinal cord. C2-3 shows mild broad-based disc bulge moderate least severe degenerative facet disease of side greater than right slight narrowing of the left neural foramen is present. C3-4 shows posterior lateral spondylotic ridging mild broad-based disc bulge and severe hypertrophic degenerative facet disease with severe bilateral neural foraminal stenosis. C4-5 shows severe degenerative facet disease spondylotic ridging eccentric along the right posterior lateral margin. There is bilateral neural foraminal stenosis right side greater than left. C5-6 also shows broad-based spondylotic ridging moderate hypertrophic degenerative facet disease and bilateral neural foraminal stenosis. C6-7 also shows some mild central disc bulge and posterior lateral spondylotic ridging and bilateral neural foraminal stenosis. Lung apices are clear. The osseous structures show no acute focal lesions. IMPRESSION: Severe cervical spondylosis. No visible acute fractures Electronically signed by: Corey Garcia MD Rey Romero DO IMG CT PROCEDURES Final Resul t * eGFR (12/13/2019 3:26 PM CDT) Glomerular Filtration Rate - non -[place]inese >60 mL/min/1.7 3 m2 [facility] Comment: Interpretive Data Decrease in GFR ?? GFR (mL/min/1.73m2) ?? Significance. Normal to Mild ?Greater than 60 ? Normal, or near normal. Moderate ?15 - 60 ? Calculated GFR of less ?than 60 suggests chronic ?kidney disease,if found ?over a 3 month period. Severe ?Less than 15 ?Renal Failure. Current interpretive data was last revised on 2012. Glomerular Filtration Rate - -[place] >60 mL/min/1.7 3 m2 [facility] Blood specimen (specimen) 12/13/2019 3:26 PM CDT 12/13/2019 3:29 PM CDT us Rey Romero DO LAB BLOOD ORDERABLES Final Re sult Performing Organization Address City/State/[facility] Co de Phone Number [facility] [address] [facility] Department [place] [address] * Cholesterol, LDL, direct (12/13/2019 3:26 PM CDT) LDL Cholesterol, Direct 54 <=129 mg/dL [facility] Comment: Interpretive Data Ages < or [...] last revised on 2018. Blood specimen (specimen) 12/13/2019 3:26 PM CDT 12/13/2019 3:29 PM CDT Rey Romero DO LAB BLOOD ORDERABLES Final Re sult [facility] [address] [facility] Department [place] [address] * Differential, auto (12/13/2019 3:26 PM CDT) Neutrophil abs 4.4 1.7 - 6.5 K/cumm [facility] Imm gran abs 0.0 0.0 - 0.1 K/cumm [facility] Lymphocyte abs 0.9 0.8 - 3.3 K/cumm [facility] Monocyte abs 0.4 0.2 - 0.8 K/cumm [facility] Eosinophil abs 0.2 0.0 - 0.5 K/cumm [facility] Basophil abs 0.0 0.0 - 0.1 K/cumm [facility] Neutrophil pct 74.7 % [facility] Comment: Interpretive Data Percent cell count reference ranges are not reported, since discordance with absolute values may lead to misinterpretation of CBC data. Current Interpretive Data was last revised on 2017. Imm gran pct 0.2 % [facility] Comment: Interpretive Data Percent cell count reference ranges are not reported, since discordance with absolute values may lead to misinterpretation of CBC data. Current Interpretive Data was last revised on 2017. Lymphocyte pct 14.9 % [facility] Comment: Interpretive Data Percent cell count reference ranges are not reported, since discordance with absolute values may lead to misinterpretation of CBC data. Current Interpretive Data was last revised on 2017. Monocyte pct 6.6 % [facility] Comment: Interpretive Data Percent cell count reference ranges are not reported, since discordance with absolute values may lead to misinterpretation of CBC data. Current Interpretive Data was last revised on 2017. Eosinophil pct 2.9 % [facility] Comment: Interpretive Data Percent cell count reference ranges are not reported, since discordance with absolute values may lead to misinterpretation of CBC data. Current Interpretive Data was last revised on 2017. Basophil pct 0.7 % [facility] Comment: Interpretive Data Percent cell count reference ranges are not reported, since discordance with absolute values may lead to misinterpretation of CBC data. Current Interpretive Data was last revised on 2017. Blood specimen (specimen) 12/13/2019 3:26 PM CDT 12/13/2019 3:29 PM CDT Reymorgan Romero DO LAB BLOOD ORDERABLES Final Re sult [facility] [address] [facility] [place] [address] * (ABNORMAL) Protime-INR (12/13/2019 3:26 PM CDT) PT 36.2(H) 9.2 - 13.0 sec [facility] INR 3.1(H) 0.9 - 1.1 [facility] Comment: Interpretive data Oral anticoagulant therapeutic ranges: Venous thromboembolism prophylaxis or treatment: 2.0-3.0 CARDIOLOGY Standard range: 2.0-3.0 High-intensity range: 2.5-3.5 Refer to indication-specific guidelines for appropriate target ranges for prosthetic heart valve replacement. Current interpretive data was last revised on 2019. Blood specimen (specimen) 12/13/2019 3:26 PM CDT 12/13/2019 3:29 PM CDT Reyncik Romero DO LAB BLOOD ORDERABLES Final Re sult Performing Organization Address [facility] de Phone Number [facility] [address] [place] [address] * aPTT (12/13/2019 3:26 PM CDT) aPTT 37 25 - 37 sec [facility] Comment: Interpretive data Heparin therapeutic range: 60-94 seconds Range based on correlation with therapeutic heparin activity range of 0.3-0.7 units/ml. Current interpretive data was last revised on 2019. Blood specimen (specimen) 12/13/2019 3:26 PM CDT 12/13/2019 3:29 PM CDT Rey Romero LAB BLOOD ORDERABLES Final Re sult Performing Organization Address [facility] de Phone Number [address] [address] * Troponin T (12/13/2019 3:26 PM CDT) Troponin T <0.01 0.00 - 0.01 ng/mL [facility] Comment: Interpretive Data Reference ranges for children <18 years of age have not been established. - > or = 18 years: Serial determinations are recommended for the diagnosis of myocardial infarction. ??Temporal rise and fall are consistent with myocardial infarction when at least one value is above the 99th percentile upper reference limit for troponin assay. ??Journal of the [place] [employer] 2012;60:1581-98. Current Interpretive Data Last Revised Date: 2018. Blood specimen (specimen) 12/13/2019 3:26 PM CDT 12/13/2019 3:29 PM CDT Rey Romero DO LAB BLOOD ORDERABLES Final Re sult Performing Organization Address [facility] Co de Phone Number [address] [address] * Comprehensive metabolic panel (12/13/2019 3:26 PM CDT) Sodium 137 135 - 145 mmol/L [facility] Potassium, pl 4.1 3.3 - 4.9 mmol/L [facility] Chloride 105 97 - 110 mmol/L [facility] CO2 23 22 - 32 mmol/L [facility] Anion gap 9 2 - 15 mmol/L [facility] BUN 22 8 - 25 mg/dL [facility] Creatinine 1.13 0.80 - 1.30 mg/dL [facility] Glucose 117 70 - 199 mg/dL [facility] Comment: Interpretive Data Fasting glucose >/= [...] Current interpretive data was last revised 2017. Calcium 9.5 8.5 - 10.3 mg/dL [facility] Bilirubin, total 0.7 0.1 - 1.2 mg/dL [facility] Protein, pl 6.7 6.5 - 8.5 g/dL [facility] Albumin 3.9 3.5 - 5.2 g/dL [facility] Alk phos 79 40 - 130 Units/L [facility] ALT 16 7 - 55 Units/L [facility] AST 23 10 - 50 Units/L [facility] Blood specimen (specimen) 12/13/2019 3:26 PM CDT 12/13/2019 3:29 PM CDT us Rey Romero DO LAB BLOOD ORDERABLES Final Re sult [facility] [address] [facility] Department [place] [address] * CBC with auto differential (12/13/2019 3:26 PM CDT) Pathologist [facility] WBC 5.9 3.8 - 9.9 K/cumm [facility] Hgb 15.1 13.0 - 17.5 g/dL [facility] Hct 44.3 38.9 - 50.3 % [facility] Plt 179 150 - 400 K/cumm [facility] MPV 10.0 9.1 - 12.3 fL [facility] RBC 4.81 4.30 - 5.80 M/cumm [facility] MCV 92.1 81.3 - 96.4 fL [facility] MCH 31.4 27.1 - 33.3 pg [facility] MCHC 34.1 32.3 - 35.7 g/dL [facility] RDW CV 12.7 11.1 - 14.9 % [facility] RDW SD 43.0 35.7 - 48.1 fL [facility] NRBC abs 0.00 0.00 - 0.01 K/cumm [facility] Blood specimen (specimen) 12/13/2019 3:26 PM CDT 12/13/2019 3:29 PM CDT Reymorgan Romero DO LAB BLOOD ORDERABLES Final Re sult Performing Organization Address City/[facility] Co de Phone Number [facility] [address] [facility] [place] [address] * ECG 12 lead (12/13/2019 3:24 PM CDT) 12/13/2019 3:24 PM CDT Narrative [facility] Attunity - 12/13/2019 4:32 PM CDT Vent Rate: 88 bpm RR Interval: 681 msec [place] Interval: 149 msec QRS Duration: 134 msec QT Interval: 357 msec QTC Interval: 402 msec P-R-T [place]: 84 - -60 - 55 degrees SINUS RHYTHM INDETERMINATE AXIS RIGHT BUNDLE BRANCH BLOCK POSSIBLE SEPTAL MYOCARDIAL INFARCTION , PROBABLY OLD ABNORMAL ECG Electronically Signed By: Hunter Shah MD, [facility] [employer] NLashay MetaCartaroddy DO ECG ORDERABLES Final Result Performing Organization Address [facility] Co de Phone Number [facility] Att[facility] documented in this encounter Visit Diagnoses Diagnosis Fall, initial encounter- Primary Transient alteration of awareness Concussion without loss of consciousness, initial encounter documented in this encounter Administered Medications Inactive Administered Medications - up to 3 most recent administrations Medication Order MAR Action Action Date Dose Rate Site bacitracin zinc 500 unit/gram ointment packet 1 application 1 application (deactivated), topical, Once, On 12/13/19 at 1622, For 1 dose, Apply to affected area: wound Given 12/13/2019 4:26 PM CDT 1 application (deactivated) documented in this encounter Active and Recently Administered Medications Times are shown in CDT. Scheduled Medication Order 12/11/2019 12/12/2019 12/13/2019 bacitracin zinc 500 unit/gram ointment packet 1 application (COMPLETED) 1 application (deactivated), topical, Once, On 12/13/19 at 1622, For 1 dose, Apply to affected area: wound 1626 (Given - Provid er: Arturo Bates RN) documented in this encounter Orders Medications Ordered That Sulaiman ht Not Have Been Administered Count Last Ordered Date First Ordered Date bacitracin zinc 500 unit/gra m ointment packet 1 application 1 12/13/2019 Nursing Count Last Ordered Date First Orde red Date CARDIO RESPIRATORY MONITORING 1 12/13/2019 CONTINUOUS PULSE OXIMETRY 1 12/13/2019 IV Count Last Ordered Date First Orde red Date SALINE LOCK IV 1 12/13/2019 documented in this encounter Care Teams Sheep Farm Worker Relationship Specialty Start Date End Date Violeta Casillas DO PCP - General 09/29/16 09/15/21 documented as of this encounter
--- OUTSIDE RECORDS SUMMARY | 2024-07-09 02:19 | XMS_ITS | Encounter Summary ---
Author Organization [facility] Address [address] [address] Care Team Providers Care Cad Developer Name Role Phone Violeta Casillas DO Primary Care Provider + Encounter Details Date Type Department Care Team (Late st Contact Info) Description 07/29/2019 8:15 AM PUBLIC HEALTH OFFICER Lab [facility] [address] [facility] Hypertension, essential (Primary Dx) Social History Tobacco Use Types Packs/Day Years Used Date Smoking Tobacco: Former Smokeless Tobacco: Former Alcohol Use Standard Drinks/Week Comments Yes 0 (1 standard drink = 0.6 oz pur e alcohol) PHQ-2 Answer Date Recorded PHQ-2 Score 6 07/28/2019 Sex and Gender Information Value Date Recorded Sex Assigned at Not on file Legal Sex Male 3:40 AM PUBLIC HEALTH OFFICER Gender Identity Not on file Sexual Orientation Not on file documented as of this encounter Plan of Treatment Not on file documented as of this encounter Visit Diagnoses Diagnosis Hypertension, essential- Primary Unspecified essential hypertension documented in this encounter Care Teams Cad Developer Relationship Specialty Start Date End Date Violeta Casillas DO PCP - General 09/29/16 09/15/21 documented as of this encounter
--- OUTSIDE RECORDS SUMMARY | 2024-07-09 02:19 | XMS_ITS | Encounter Summary ---
Author Organization [facility] Address [address] [facility] [address] [place] [id number] Care Team Providers Care Vegetable Picker Name Role Phone Violeta Casillas DO Primary Care Provider + Encounter Details Date Type Department Care Team (Late st Contact Info) Description 08/08/2019 8:45 AM TAX APPRAISER Lab Medical [facility] [address] [facility] Atrial fibrillation, unspecified type (CMS/HCC) Social History Tobacco Use Types Packs/Day Years Used Date Smoking Tobacco: Former Smokeless Tobacco: Former Alcohol Use Standard Drinks/Week Comments Yes 0 (1 standard drink = 0.6 oz pur e alcohol) PHQ-2 Answer Date Recorded PHQ-2 Score 6 07/28/2019 Sex and Gender Information Value Date Recorded Sex Assigned at Not on file Legal Sex Male 3:40 AM TAX APPRAISER Gender Identity Not on file Sexual Orientation Not on file documented as of this encounter Progress Notes * Violeta Casillas DO - 08/08/2019 8:45 AM CST Slightly out of range but not worth making any adjustments. I would recheck in 1 week. APPRAISER documented in this encounter Plan of Treatment Not on file documented as of this encounter Procedures Procedure Name Priority Date/Time Associated Diagnosis Comments POCT INR Routine 08/08/2019 8:45 AM TAX APPRAISER Atrial fibrillation, unspecified type (CMS/HCC) documented in this encounter Results * POCT INR (08/08/2019 8:45 AM TAX APPRAISER) INR, POC 1.9 Blood specimen (specimen) (Blood, Venous) 08/08/2019 8:45 AM TAX APPRAISER Violeta Casillas DO POINT OF CARE TEST ORDER ANDREZ Final Result documented in this encounter Visit Diagnoses Diagnosis Atrial fibrillation, unspecified type (HCC) documented in this encounter Care Teams Vegetable Picker Relationship Specialty Start Date End Date Violeta Casillas DO PCP - General 09/29/16 09/15/21 documented as of this encounter
--- OUTSIDE RECORDS SUMMARY | 2024-07-09 02:19 | XMS_ITS | Encounter Summary ---
Author Organization [facility] Care Team Providers Care Sexologist Name Role Phone Violeta Casillas DO Primary Care Provider + Encounter Details Date Type Department Care Team (Latest Contact Info) Description 04/21/2019 Travel Social History Tobacco Use Types Packs/Day Years Used Date Smoking Tobacco: Former Smokeless Tobacco: Former Alcohol Use Standard Drinks/Week Comments Yes 0 (1 standard drink = 0.6 oz pur e alcohol) PHQ-2 Answer Date Recorded PHQ-2 Score 0 02/22/2019 Sex and Gender Information Value Date Recorded Sex Assigned at Not on file Legal Sex Male 3:40 AM PARACHUTE PANEL JOINER Gender Identity Not on file Sexual Orientation Not on file documented as of this encounter Plan of Treatment Not on file documented as of this encounter Visit Diagnoses Not on filedocumented in this encounter Care Teams Sexologist Relationship Specialty Start Date End Date Violeta Casillas DO PCP - General 09/29/16 09/15/21 documented as of this encounter
--- OUTSIDE RECORDS SUMMARY | 2024-07-09 02:19 | XMS_ITS | Encounter Summary ---
Author Organization [facility] Address [address] [facility] [address] [place] [id number] Care Team Providers Care Veneer Repairer Machine Name Role Phone Violeta Casillas DO Primary Care Provider + Reason for Visit * Reason Onset Date Comments Anticoagulation 06/03/2019 Encounter Details Date Type Department Care Team (Late st Contact Info) Description 06/03/2019 Telephone Medical [facility] [address] [place] [address] Ruth Hankins LPN Anticoagulation Social History Tobacco Use Types Packs/Day Years Used Date Smoking Tobacco: Former Smokeless Tobacco: Former Alcohol Use Standard Drinks/Week Comments Yes 0 (1 standard drink = 0.6 oz pur e alcohol) PHQ-2 Answer Date Recorded PHQ-2 Score 0 02/22/2019 Sex and Gender Information Value Date Recorded Sex Assigned at Not on file Legal Sex Male 3:40 AM TOXICOLOGY SUPERVISOR Gender Identity Not on file Sexual Orientation Not on file documented as of this encounter Miscellaneous Notes * Telephone Encounter - Ruth Farmer LPN - 06/03/2019 10:07 AM CST INR 2.5 on this date, patient alternates 7-[address] Casillas, continue current dosage and recheck in one month. Patient aware. COLOGY SUPERVISOR documented in this encounter Plan of Treatment Not on file documented as of this encounter Visit Diagnoses Not on filedocumented in this encounter Care Teams Veneer Repairer Machine Relationship Specialty Start Date End Date Violeta Casillas DO PCP - General 09/29/16 09/15/21 documented as of this encounter
--- OUTSIDE RECORDS SUMMARY | 2024-07-09 02:19 | XMS_ITS | Encounter Summary ---
Author Organization [facility] Address [address] [address] Care Team Providers Care Lead Sql Developer Name Role Phone Violeta Casillas DO Primary Care Provider + Reason for Visit * Reason Comments Medicare Wellness Encounter Details Date Type Department Care Team (Late st Contact Info) Description 01/26/2020 10:00 AM CDT Office Visit [facility] [address] [place] [address] Violeta Casillas DO [address] [place] [address] Encounter for Medicare annual wellness exam (Primary Dx); Pure hypercholesterolemia; Mild episode of recurrent major depressive disorder (CMS/HCC); Chronic atrial fibrillation (CMS/HCC); Prediabetes; Chronic obstructive pulmonary disease, unspecified COPD type (CMS/HCC); Benign prostatic hyperplasia with urinary hesitancy; Hearing difficulty of both ears; Hypertension, essential; Weight loss; Immunization due Social History Tobacco Use Types Packs/Day Years Used Date Smoking Tobacco: Former Smokeless Tobacco: Former Alcohol Use Standard Drinks/Week Comments Yes 0 (1 standard drink = 0.6 oz pur e alcohol) PHQ-2 Answer Date Recorded PHQ-2 Score 3 01/26/2020 Sex and Gender Information Value Date Recorded Sex Assigned at Not on file Legal Sex Male 3:40 AM SHIRRER Gender Identity Not on file Sexual Orientation Not on file documented as of this encounter Last Filed Vital Signs Vital Sign Reading Time Taken Comments Blood Pressure 142/78 01/26/2020 9:38 AM CDT Pulse 77 01/26/2020 9:38 AM CDT Temperature 37.3 ??C (99.1 ??F) 01/26/2020 9:38 AM CD T Respiratory Rate 16 01/26/2020 9:38 AM CDT Oxygen Saturation 96% 01/26/2020 9:38 AM CDT Inhaled Oxygen Concentration - - Weight 66.3 kg (146 lb 3.2 oz) 01/26/2020 9:38 A M CDT Height 182.9 cm (6' 0.01 ) 01/26/2020 9:38 AM CD T Body Mass Index 19.82 01/26/2020 9:38 AM CDT documented in this encounter Ordered Prescriptions Prescription Sig Dispense Quantity Refills Last Filled Start Date End Date mirtazapine (REMERON) 15 mg tabletIndications:Weight loss,Mild episode of recurrent major depressive disorder (HCC) Take 1 tablet (15 mg total) by mouth nightly 30 tablet 2 0 06/01/20 20 atorvastatin (LIPITOR) 20 mg tabletIndications:Pure hypercholesterolemia Take 1 tablet (20 mg total) by mouth nightly 90 tablet 3 0 09/21/19 21 documented in this encounter Progress Notes * Violeta Casillas, DO - 01/26/2020 10:00 AM CDT Images from the original note were not included. MEDICARE ANNUAL WELLNESS VISIT Patient Name: Noé Davila : 1935 Date of Service: 01/27/2020 Medicare Health Risk Assessment Basic Information In general, would you say your health is: Fair Do you have an Advanced Directive (Living Will) and/or Durable Power of Room Manager?: Yes - Please bring a copy to your next appointment Do you have trouble hearing the television or radio when other do not?: Yes Do you have to strain or struggle to hear/understand conversations?: Yes Have you experienced any of the following problems currently or recently? Eating: No Grooming: No Bathing: No Walking: No Using the toilet: No Memory problems: Yes Difficulty speaking: No Have you experienced any of the following problems currently or recently? Laundry and/or housekeeping: No Handling Money: No Shopping: No Food preparation: Yes(can't read, so finding food is an issue) Transportation: No Taking and/or getting your own medications: No Chief Complaint: Chief Complaint Patient presents with ??? Medicare Wellness HPI Patient is here for yearly wellness visit and to follow up on chronic problems at least one of which is COPD. Overall he is doing fair with no complications with any medications. He is not taking his doxazosin because he isn't that bad yet . His COPD is stable. When he's up doing things he'll get a little SOB, but he goes and sits down and it'll feel better. His hearing is getting worse but he didn't see audiology because he couldn't afford it. He states he's losing weight and not meaning to. He's lost 8 pounds in 1 month. He doesn't eat very much and doesn't feel hungry. He states he doesn't cook very much since he can't read. He does not currently smoke, but has a 30 pack year smoking history. Quit 14 years ago. Past Medical and Surgical History: Past Medical History: Diagnosis Date ??? Atrial fibrillation (CMS/HCC) ??? COPD (chronic obstructive pulmonary disease) (CMS/HCC) Past Surgical History: Procedure Laterality Date ??? CHOLECYSTECTOMY 2008 Cholecystectomy ??? OTHER SURGICAL HISTORY gastric surgery ??? OTHER SURGICAL HISTORY amputation of left index finger ??? PROSTATECTOMY prostatectomy Family History: Family History Problem Relation Age of Onset ??? Heart disease Father Heart disease; Social History: Social History Socioeconomic History ??? Marital status: Spouse name: Not on file ??? Number of children: Not on file ??? Years of education: Not on file ??? Highest education level: Not on file Occupational History ??? Not on file Social Needs ??? Financial resource strain: Not on file ??? Food insecurity Worry: Not on file Inability: Not on file ??? Transportation needs Medical: Not on file Non-medical: Not on file Tobacco Use ??? Smoking status: Former Smoker ??? Smokeless tobacco: Former User Substance and Sexual Activity ??? Alcohol use: Yes ??? Drug use: No ??? Sexual activity: Defer Lifestyle ??? Physical activity Days per week: Not on file Minutes per session: Not on file ??? Stress: Not on file Relationships ??? Social connections Talks on phone: Not on file Gets together: Not on file Attends religion service: Not on file Active member of club or organization: Not on file Attends meetings of clubs or organizations: Not on file Relationship status: Not on file ??? Intimate partner violence Fear of current or ex partner: Not on file Emotionally abused: Not on file Physically abused: Not on file Forced sexual activity: Not on file Other Topics Concern ??? Not on file Social History Narrative ??? Not on file Diet: eats little, mostly breakfast and little throughout the day Physical Activities: Active around house, not for exercise Allergies: No Known Allergies Current Medications: Outpatient Encounter Medications as of 01/26/2020 Medication Sig Dispense Refill ??? warfarin (COUMADIN) 1 mg tablet TAKE 2 TABLETS BY MOUTH ONCE DAILY DIRECTED 90 tablet 0 ??? warfarin (COUMADIN) 5 mg tablet TAKE 1 TABLET BY MOUTH AT BEDTIME TAKE WITH TWO 1MG TABLETS TO EQUAL 7MG AT BEDTIME 30 tablet 0 ??? [DISCONTINUED] amitriptyline (ELAVIL) 10 mg tablet TAKE 1 TABLET BY MOUTH AT BEDTIME 30 tablet 0 ??? [DISCONTINUED] doxazosin (CARDURA) 2 mg tablet Take 1 tablet (2 mg total) by mouth nightly 90 tablet 3 ??? [DISCONTINUED] rosuvastatin (CRESTOR) 10 mg tablet Take 1 tablet (10 mg total) by mouth daily 90 tablet 3 ??? atorvastatin (LIPITOR) 20 mg tablet Take 1 tablet (20 mg total) by mouth nightly 90 tablet 3 ??? dextromethorphan-guaifenesin 5-100 mg/5 mL liquid Take 5-10 mL by mouth every 4 (four) hours asneeded (cough and congestion) (Patient not taking: Reported on 07/28/2019) 1 Bottle 2 ??? fluticasone propionate (FLONASE) 50 mcg/actuation nasal spray Administer 2 sprays into each nostril daily (Patient not taking: Reported on 01/26/2020) 16 g 5 ??? mirtazapine (REMERON) 15 mg tablet Take 1 tablet (15 mg total) by mouth nightly 30 tablet 2 ??? senna (SENOKOT) 8.6 mg tablet Take 1 tablet by mouth daily as needed for constipation. (Patientnot taking: Reported on 01/26/2020) No facility-administered encounter medications on file as of 01/26/2020. Depression Screen: PHQ Screening Over the last 2 weeks, how often have you been bothered by any of the following problems? Little Interest or Pleasure in Doing Things: Several days Feeling Down, Depressed, or Hopeless: More than half the days PHQ-2 Total Score (If total score is 3 or more points, staff should administer the PHQ-9): 3 Over the past 2 weeks, how often have you been bothered by any of the following problems? Little Interest or Pleasure in Doing Things: Several days Feeling Down, Depressed, or Hopeless: More than half the days Audio Screen: Is the patient having any problems with hearing? Yes Audio Screen ordered? Yes Review of Systems Constitutional: Positive for unexpected weight change (decreased). Negative for activity change, appetite change, fatigue and fever. Respiratory: Negative for cough and shortness of breath. Cardiovascular: Negative for chest pain and palpitations. Gastrointestinal: Negative for abdominal pain, constipation, diarrhea, nausea and vomiting. Genitourinary: Positive for decreased urine volume. Negative for dysuria, frequency and urgency. Neurological: Negative for dizziness, weakness, numbness and headaches. Psychiatric/Behavioral: Negative for dysphoric mood and sleep disturbance. The patient is not nervous/anxious. Vitals: Vitals: 01/26/20 0938 BP: 142/78 Pulse: 77 Resp: 16 Temp: 37.3 ??C (99.1 ??F) TempSrc: Temporal SpO2: 96% Weight: 66.3 kg (146 lb 3.2 oz) Height: 182.9 cm (6' 0.01 ) Physical Exam Vitals signs and nursing note reviewed. Constitutional: General: He is not in acute distress. Appearance: Normal appearance. He is not ill-appearing, toxic-appearing or diaphoretic. HENT: Head: Normocephalic and atraumatic. Eyes: Conjunctiva/sclera: Conjunctivae normal. Cardiovascular: Rate and Rhythm: Normal rate. Rhythm irregularly irregular. Pulses: Carotid pulses are 2+ on the right side and 2+ on the left side. Posterior tibial pulses are 2+ on the right side and 2+ on the left side. Heart sounds: Normal heart sounds. No murmur. No friction rub. No gallop. Pulmonary: Effort: Pulmonary effort is normal. No respiratory distress. Breath sounds: Normal breath sounds. No wheezing, rhonchi or rales. Abdominal: General: Bowel sounds are normal. Musculoskeletal: Right lower leg: No edema. Left lower leg: No edema. Skin: Findings: No erythema or rash. Neurological: Mental Status: He is alert and oriented to person, place, and time. Cranial Nerves: No cranial nerve deficit. Psychiatric: Behavior: Behavior normal. Up and Go Test: Patient was unsteady or time test was longer than 30 seconds? No Care Team Providers: Patient Care Team: Violeta Casillas, DO as PCP - General Primary Pharmacy/DME suppliers: [place] [address] [address] [facility] [address] [facility] [id number] Detection of Cognitive Impairment: Detect cognitive impairment based on direct observation, discussion with patient or family, or review of medical records? No Counseling and Referral of Preventative Services: Other route measures as deemed appropriate: LIST OF RISK FACTORS AND CONDITIONS FOR WHICH PRIMARY, SECONDARY, TERTIARY INTERVENTIONS ARE RECOMMENDED OR ARE UNDERWAY WITH LIST OF TREATMENT OPTIONS AND THEIR RISKS AND BENEFITS. Please see patient instructions section for recommendations for appropriate screening and monitoring guidelines. Advanced Directive Durable Power of Room Manager: Yes Living Will: Yes Assessment / Plan: Diagnoses and all orders for this visit: Encounter for Medicare annual wellness exam (Primary) Assessment & Plan: Discussed importance of a healthy diet and increased activity on health. He received his first pneumonia vaccine today. We discussed how he gets his food and prepares it. Pure hypercholesterolemia Assessment & Plan: Stop rosuvastatin and start atorvastatin 20mg due to cost. Check labs today. Orders: - atorvastatin (LIPITOR) 20 mg tablet; Take 1 tablet (20 mg total) by mouth nightly Mild episode of recurrent major depressive disorder (CMS/HCC) Assessment & Plan: Stop amitriptyline and start mirtazepine. Mood seems a little down, as well as appetite. Discussed proper safety measures when going outside and fishing with his angelia. Encouraged him to get out and socialize with precautions. Orders: - mirtazapine (REMERON) 15 mg tablet; Take 1 tablet (15 mg total) by mouth nightly Chronic atrial fibrillation (CMS/HCC) Assessment & Plan: Chronic & stable on warfarin. Continue current treatment. Prediabetes Assessment & Plan: Will recheck fasting glucose today. Chronic obstructive pulmonary disease, unspecified COPD type (CMS/HCC) Assessment & Plan: Stable with no current medications. Benign prostatic hyperplasia with urinary hesitancy Assessment & Plan: Patient only took the doxazosin a couple times. Stop completely due to not taking it regularly and some lightheadedness when standing. Hearing difficulty of both ears Assessment & Plan: Did not go to audiology due to cost. Hypertension, essential Assessment & Plan: Stable without doxazosin. Does not measure BP at home. Will continue to monitor in the future. He is consuming easy meals with a lot of sodium, which may be contributing to his higher BP readings. Weight loss Assessment & Plan: Start mirtazapine today. Protein shakes may be beneficial for him. We discussed getting enough fruits and vegetables in. Orders: - mirtazapine (REMERON) 15 mg tablet; Take 1 tablet (15 mg total) by mouth nightly Immunization due - Pneumococcal polysaccharide vaccine 23-valent greater than or equal to 2yo subcutaneous/IM (PNEUMOVAX) Education today on importance of normal BMI and impacts of abnormal BMI on morbidity and mortality. Please see patient instructions section for recommendations for appropriate screening and monitoring guidelines. Violeta Casillas DO documented in this encounter Miscellaneous Notes * Assessment & Plan Note - Sadie Alonzo - 01/26/2020 11:15 AM CDTAssociated Problem(s): Weight loss Start mirtazapine today. Protein shakes may be beneficial for him. We discussed getting enough fruits and vegetables in. * Assessment & Plan Note - Sadie Alonzo - 01/26/2020 11:14 AM CDTAssociated Problem(s): Encounter for Medicare annual wellness exam (Resolved 05/06/2020) Discussed importance of a healthy diet and increased activity on health. He received his first pneumonia vaccine today. We discussed how he gets his food and prepares it. * Assessment & Plan Note - Sadie Alonzo - 01/26/2020 11:12 AM CDTAssociated Problem(s): Hypertension, essential Stable without doxazosin. Does not measure BP at home. Will continue to monitor in the future. He is consuming easy meals with a lot of sodium, which may be contributing to his higher BP readings. * Assessment & Plan Note - Sadie Alonzo - 01/26/2020 11:11 AM CDTAssociated Problem(s): Hearing difficulty of both ears Did not go to audiology due to cost. * Assessment & Plan Note - Sadie Alonzo - 01/26/2020 11:09 AM CDTAssociated Problem(s): Recurrent major depressive disorder (HCC) Stop amitriptyline and start mirtazepine. Mood seems a little down, as well as appetite. Discussed proper safety measures when going outside and fishing with his angelia. Encouraged him to get out and socialize with precautions. * Assessment & Plan Note - Sadie Alonzo - 01/26/2020 11:08 AM CDTAssociated Problem(s): Benign prostatic hyperplasia with urinary hesitancy Patient only took the doxazosin a couple times. Stop completely due to not taking it regularly and some lightheadedness when standing. * Assessment & Plan Note - Sadie Alonzo - 01/26/2020 11:07 AM CDTAssociated Problem(s): Chronic obstructive pulmonary disease (HCC) Stable with no current medications. * Assessment & Plan Note - Sadie Alonzo - 01/26/2020 11:07 AM CDTAssociated Problem(s): Prediabetes Will recheck fasting glucose today. * Assessment & Plan Note - Sadie Alonzo - 01/26/2020 11:06 AM CDTAssociated Problem(s): Chronic atrial fibrillation (HCC) Chronic & stable on warfarin. Continue current treatment. * Assessment & Plan Note - Sadie Alonzo - 01/26/2020 11:05 AM CDTAssociated Problem(s): Pure hypercholesterolemia Stop rosuvastatin and start atorvastatin 20mg due to cost. Check labs today. documented in this encounter Plan of Treatment Not on file documented as of this encounter Visit Diagnoses Diagnosis Encounter for Medicare annual wellness exam- Primary Pure hypercholesterolemia Mild episode of recurrent major depressive disorder (HCC) Chronic atrial fibrillation (HCC) Atrial fibrillation Prediabetes Other abnormal glucose Chronic obstructive pulmonary disease, unspecified COPD type (HCC) Benign prostatic hyperplasia with urinary hesitancy Hearing difficulty of both ears Hypertension, essential Unspecified essential hypertension Weight loss Loss of weight Immunization due documented in this encounter Discontinued Medications Medication Sig Discontinue Reason Start Date End Da te doxazosin (CARDURA) 2 mg tabletIndications:Hypert ension, essential,Benign prostatic hyperplasia with urinary hesitancy Take 1 tablet (2 mg total) by mouth nightly 08/08/2019 01/26/2020 amitriptyline (ELAVIL) 10 mg tablet TAKE 1 TABLET BY MOUTH AT BEDTIME 01/14/2020 01/26/2020 rosuvastatin (CRESTOR) 10 mg tablet Take 1 tablet (10 mg total) by mouth daily 08/15/2019 01/26/2020 documented as of this encounter Orders Immunization/Injection Count Last Ordered Date First Ordered Date PNEUMOCOCCAL POLYSACCHARIDE VACCINE 23-VALENT =>2YO SQ IM 1 01/26/2020 documented in this encounter Care Teams Lead Sql Developer Relationship Specialty Start Date End Date Violeta Casillas DO PCP - General 09/29/16 09/15/21 documented as of this encounter
--- OUTSIDE RECORDS SUMMARY | 2024-07-09 02:19 | XMS_ITS | Encounter Summary ---
Author Organization [facility] Address [address] [address] Care Team Providers Care Dope Sprayer Name Role Phone Violeta Casillas DO Primary Care Provider + Encounter Details Date Type Department Care Team (Latest Contact Info) Description 08/15/2019 Orders Only [facility] [address] [place] [id number] Ruth Hankins LPN Pure hypercholesterolemia (Primary Dx); Hypertension, essential Social History Tobacco Use Types Packs/Day Years Used Date Smoking Tobacco: Former Smokeless Tobacco: Former Alcohol Use Standard Drinks/Week Comments Yes 0 (1 standard drink = 0.6 oz pur e alcohol) PHQ-2 Answer Date Recorded PHQ-2 Score 6 07/28/2019 Sex and Gender Information Value Date Recorded Sex Assigned at Not on file Legal Sex Male 3:40 AM COMPRESSOR MECHANIC Gender Identity Not on file Sexual Orientation Not on file documented as of this encounter Plan of Treatment Not on file documented as of this encounter Visit Diagnoses Diagnosis Pure hypercholesterolemia- Primary Hypertension, essential Unspecified essential hypertension documented in this encounter Care Teams Dope Sprayer Relationship Specialty Start Date End Date Violeta Casillas DO PCP - General 09/29/16 09/15/21 documented as of this encounter
--- OUTSIDE RECORDS SUMMARY | 2024-07-09 02:19 | XMS_ITS | Encounter Summary ---
Author Organization [facility] Care Team Providers Care Inventory Associate And Driver Name Role Phone Violeta Casillas DO Primary Care Provider + Encounter Details Date Type Department Care Team (Latest Contact Info) Description 06/03/2019 Travel Social History Tobacco Use Types Packs/Day Years Used Date Smoking Tobacco: Former Smokeless Tobacco: Former Alcohol Use Standard Drinks/Week Comments Yes 0 (1 standard drink = 0.6 oz pur e alcohol) PHQ-2 Answer Date Recorded PHQ-2 Score 0 02/22/2019 Sex and Gender Information Value Date Recorded Sex Assigned at Not on file Legal Sex Male 3:40 AM NURSING SERVICES MANAGER Gender Identity Not on file Sexual Orientation Not on file documented as of this encounter Plan of Treatment Not on file documented as of this encounter Visit Diagnoses Not on filedocumented in this encounter Care Teams Inventory Associate And Driver Relationship Specialty Start Date End Date Violeta Casillas DO PCP - General 09/29/16 09/15/21 documented as of this encounter
--- OUTSIDE RECORDS SUMMARY | 2024-07-09 02:19 | XMS_ITS | Encounter Summary ---
Author Organization [facility] Address [address] [facility] [address] [place] [address] Care Team Providers Care Bank Operations Officer Name Role Phone Violeta Casillas DO Primary Care Provider + Encounter Details Date Type Department Care Team (Late st Contact Info) Description 07/04/2019 9:00 AM DIESEL LOCOMOTIVE FIRER Lab Medical [facility] [address] [facility] Atrial fibrillation, unspecified type (CMS/HCC) Social History Tobacco Use Types Packs/Day Years Used Date Smoking Tobacco: Former Smokeless Tobacco: Former Alcohol Use Standard Drinks/Week Comments Yes 0 (1 standard drink = 0.6 oz pur e alcohol) PHQ-2 Answer Date Recorded PHQ-2 Score 0 02/22/2019 Sex and Gender Information Value Date Recorded Sex Assigned at Not on file Legal Sex Male 3:40 AM DIESEL LOCOMOTIVE FIRER Gender Identity Not on file Sexual Orientation Not on file documented as of this encounter Plan of Treatment Not on file documented as of this encounter Procedures Procedure Name Priority Date/Time Associated Diagnosis Comments POCT INR Routine 07/04/2019 8:55 AM DIESEL LOCOMOTIVE FIRER Atrial fibrillation, unspecified type (CMS/HCC) documented in this encounter Results * POCT INR (07/04/2019 8:55 AM DIESEL LOCOMOTIVE FIRER) INR, POC 1.3 Blood specimen (specimen) (Blood, Venous) 07/04/2019 8:55 AM DIESEL LOCOMOTIVE FIRER Violeta Casillas DO POINT OF CARE TEST ORDER ANDREZ Final Result documented in this encounter Visit Diagnoses Diagnosis Atrial fibrillation, unspecified type (HCC) documented in this encounter Care Teams Bank Operations Officer Relationship Specialty Start Date End Date Violeta Casillas DO PCP - General 09/29/16 09/15/21 documented as of this encounter
--- OUTSIDE RECORDS SUMMARY | 2024-07-09 02:19 | XMS_ITS | Encounter Summary ---
Author Organization [facility] Address [address] [facility] [address] [place] [address] Care Team Providers Care Group Insurance Special Agent Name Role Phone Violeta Casillas DO Primary Care Provider + Spring Banerjee RN Unavailable [phone] Dayana Marina SHIPS EQUIPMENT ENGINEER Unavailable [phone] Encounter Details Date Type Department Care Team (Late st Contact Info) Description 05/10/2020 Telephone [facility] [address] [place] [address] Violeta Casillas DO [address] [place] [address] Social History Tobacco Use Types Packs/Day Years Used Date Smoking Tobacco: Former Smokeless Tobacco: Former Alcohol Use Standard Drinks/Week Comments Yes 0 (1 standard drink = 0.6 oz pur e alcohol) PHQ-2 Answer Date Recorded PHQ-2 Score 2 05/06/2020 Sex and Gender Information Value Date Recorded Sex Assigned at Not on file Legal Sex Male 3:40 AM COMPUTER CUSTOMER SUPPORT SPECIALIST Gender Identity Not on file Sexual Orientation Not on file documented as of this encounter Miscellaneous Notes * Telephone Encounter - Violeta Casillas DO - 05/11/2020 8:42 AM COMPUTER CUSTOMER SUPPORT SPECIALIST ELLYN Moulton the Requip (ropinirole) was helpful for tremors. UTER CUSTOMER SUPPORT SPECIALIST * Telephone Encounter - Kendra Dickerson - 05/10/2020 12:00 PM CST Pt called and he states the new meds that you gave him seem to working good for him UTER CUSTOMER SUPPORT SPECIALIST documented in this encounter Plan of Treatment Not on file documented as of this encounter Visit Diagnoses Not on filedocumented in this encounter Care Teams Group Insurance Special Agent Relationship Specialty Start Date End Date Violeta Casillas DO PCP - General 09/29/16 09/15/21 Spring Banerjee RN [address] [facility] [address] [place] [address] Personnel Coordinator 05/07/20 12/29/20 Dayana Marina LCSW [address] [facility] [address] [place] [address] Health Type Technician 05/10/20 05/25/20 documented as of this encounter
--- OUTSIDE RECORDS SUMMARY | 2024-07-09 02:19 | XMS_ITS | Encounter Summary ---
Author Organization [facility] Medical Group Address [address] [address] Care Team Providers Care University Partnership Rep Name Role Phone Violeta Casillas DO Primary Care Provider + Encounter Details Date Type Department Care Team (Late st Contact Info) Description 08/15/2019 Telephone [facility] [address] [place] [address] Violeta Casillas DO [address] [place] [address] Social History Tobacco Use Types Packs/Day Years Used Date Smoking Tobacco: Former Smokeless Tobacco: Former Alcohol Use Standard Drinks/Week Comments Yes 0 (1 standard drink = 0.6 oz pur e alcohol) PHQ-2 Answer Date Recorded PHQ-2 Score 6 07/28/2019 Sex and Gender Information Value Date Recorded Sex Assigned at Not on file Legal Sex Male 3:40 AM ADMINISTRATIVE JUDGE Gender Identity Not on file Sexual Orientation Not on file documented as of this encounter Ordered Prescriptions Prescription Sig Dispense Quantity Refills Last Filled Start Date End Date rosuvastatin (CRESTOR) 10 mg tablet Take 1 tablet (10 mg total) by mouth daily 90 tablet 3 08/15/2019 01/26/2020 documented in this encounter Miscellaneous Notes * Telephone Encounter - Ruth Farmer LPN - 08/15/2019 10:45 AM CST ----- Message from Violeta Casillas DO sent at 08/01/2019 3:55 PM ADMINISTRATIVE JUDGE ----- In general labs look okay however the blood sugar was elevated to 111 and normal would be less [id number] when fasting. What I would recommend is that when the Mevacor runs out he switch that to rosuvastatin so that way he does not have to take 2 tablets at a time, plus the rosuvastatin is far superior and photo mask cleaner than that medication. If he is okay with that please send in 10 mg tablet nightly number 90 with 3 refills. Please repeat labs prior to next office visit. NISTRATIVE JUDGE documented in this encounter Plan of Treatment Not on file documented as of this encounter Visit Diagnoses Not on filedocumented in this encounter Discontinued Medications Medication Sig Discontinue Reason Start Date End Da te lovastatin (MEVACOR) 20 mg tabletIndications:Pure hypercholesterolemia TAKE 2 TABLETS BY MOUTH NIGHTLY Formulary change 05/12/2019 08/15/2019 documented as of this encounter Care Teams University Partnership Rep Relationship Specialty Start Date End Date Violeta Casillas DO PCP - General 09/29/16 09/15/21 documented as of this encounter
--- OUTSIDE RECORDS SUMMARY | 2024-07-09 02:19 | XMS_ITS | Encounter Summary ---
Author Organization [facility] Home Care Servic es Address [address] [place] [address] Phone Care Team Providers Care Manager Recovery Name Role Phone Violeta Casillas Primary Care Provider + Spring Banerjee RN Unavailable [phone] Dayana MarinaW Unavailable [phone] Encounter Details Date Type Department Care Team (Late st Contact Info) Description 05/11/2020 Telephone [facility] [address] [place] [address] Radha Cheung RN Social History Tobacco Use Types Packs/Day Years Used Date Smoking Tobacco: Former Smokeless Tobacco: Former Alcohol Use Standard Drinks/Week Comments Yes 0 (1 standard drink = 0.6 oz pur e alcohol) Social Connection and Isolat ion Panel [NHANES] Answer Date Recorded Frequency of Communication w ith Friends and Family More than three times a week 05/12/2020 Frequency of Social Gatherin gs with Friends and Family Not on file 05/12/2020 Attends Adventism Services Not on file 05/12 Active Member of Clubs or Organizations Not on f ile 05/12/2020 Attends Club or Organization Meetings Not on jose e 05/12/2020 Marital Status Not on file 05/12/2020 PHQ-2 Answer Date Recorded PHQ-2 Score 2 05/06/2020 Sex and Gender Information Value Date Recorded Sex Assigned at Not on file Legal Sex Male 3:40 AM ADVERTISING DISPLAY ROTATOR Gender Identity Not on file Sexual Orientation Not on file documented as of this encounter Miscellaneous Notes * Telephone Encounter - Radha Cheung RN - 05/11/2020 12:44 PM ADVERTISING DISPLAY ROTATOR SPOKE TO PATIENT AND INFORMED OF ACCEPTANCE TO [facility]. HE AGREES FOR SOC TOMORROW. DR. HOLDEN FOLLOW FOR HOME CARE AND ORDERS. RTISING DISPLAY ROTATOR documented in this encounter Plan of Treatment Not on file documented as of this encounter Visit Diagnoses Not on filedocumented in this encounter Care Teams Manager Recovery Relationship Specialty Start Date End Date Violeta Casillas DO PCP - General 09/29/16 09/15/21 Spring Bnaerjee RN [address] [place] [address] [address] [place], [place] [id number] Office Services Associate 05/07/20 12/29/20 Dayana Marina LCSW [address] [place] [address] [address] [place], [place] [id number] Card Lacer 05/10/20 05/25/20 documented as of this encounter
--- OUTSIDE RECORDS SUMMARY | 2024-07-09 02:19 | XMS_ITS | Encounter Summary ---
Author Organization [facility] Facility Care Team Providers Care Forest Pathology Teacher Name Role Phone Violeta Casillas DO Primary Care Provider + Encounter Details Date Type Department Care Team (Latest Contact Info) Description 07/14/2019 Travel Social History Tobacco Use Types Packs/Day Years Used Date Smoking Tobacco: Former Smokeless Tobacco: Former Alcohol Use Standard Drinks/Week Comments Yes 0 (1 standard drink = 0.6 oz pur e alcohol) PHQ-2 Answer Date Recorded PHQ-2 Score 0 02/22/2019 Sex and Gender Information Value Date Recorded Sex Assigned at Not on file Legal Sex Male 3:40 AM 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
--- OUTSIDE RECORDS SUMMARY | 2024-07-09 02:19 | XMS_ITS | Encounter Summary ---
Author Organization [facility] Facility Care Team Providers Care Facilities Administrator Name Role Phone Violeta Casillas DO Primary Care Provider + Encounter Details Date Type Department Care Team (Latest Contact Info) Description 07/28/2019 Travel Social History Tobacco Use Types Packs/Day Years Used Date Smoking Tobacco: Former Smokeless Tobacco: Former Alcohol Use Standard Drinks/Week Comments Yes 0 (1 standard drink = 0.6 oz pur e alcohol) PHQ-2 Answer Date Recorded PHQ-2 Score 6 07/28/2019 Sex and Gender Information Value Date Recorded Sex Assigned at Not on file Legal Sex Male 3:40 AM ASPHALT ROLLER PERSON Gender Identity Not on file Sexual Orientation Not on file documented as of this encounter Plan of Treatment Not on file documented as of this encounter Visit Diagnoses Not on filedocumented in this encounter Care Teams Facilities Administrator Relationship Specialty Start Date End Date Violeta Casillas DO PCP - General 09/29/16 09/15/21 documented as of this encounter
--- OUTSIDE RECORDS SUMMARY | 2024-07-09 02:19 | XMS_ITS | Encounter Summary ---
Author Organization [facility] Healthcare Address [address] [place] [address] Care Team Providers Care Steel Wheel Engraver Name Role Phone Violeta Casillas DO Primary Care Provider + Encounter Details Date Type Department Care Team (Late st Contact Info) Description 07/29/2019 10:00 AM QUARTER TRIMMER Lab [address] [id number] Pure hypercholesterolemia; Hypertension, essential Social History Tobacco Use Types Packs/Day Years Used Date Smoking Tobacco: Former Smokeless Tobacco: Former Alcohol Use Standard Drinks/Week Comments Yes 0 (1 standard drink = 0.6 oz pur e alcohol) PHQ-2 Answer Date Recorded PHQ-2 Score 6 07/28/2019 Sex and Gender Information Value Date Recorded Sex Assigned at Not on file Legal Sex Male 3:40 AM QUARTER TRIMMER Gender Identity Not on file Sexual Orientation Not on file documented as of this encounter Progress Notes * Violeta Casillas DO - 07/29/2019 10:00 AM CST In general labs look okay however the blood sugar was elevated to 111 and normal would be less [id number] when fasting. What I would recommend is that when the Mevacor runs out he switch that to rosuvastatin so that way he does not have to take 2 tablets at a time, plus the rosuvastatin is far superior and hand dry cleaner than that medication. If he is okay with that please send in 10 mg tablet nightly number 90 with 3 refills. Please repeat labs prior to next office visit. TER TRIMMER documented in this encounter Plan of Treatment Not on file documented as of this encounter Procedures Procedure Name Priority Date/Time Associated Diagnosis Comments GLUCOSE, RANDOM (OUTREACH) Routine 07/29/2019 8:20 AM QUARTER TRIMMER Hypertension, essential EGFR Routine 07/29/2019 8:20 AM QUARTER TRIMMER Hypertension, essential COMPREHENSIVE METABOLIC PANEL WITHOUT GLUCOSE (OUTREACH) Routine 07/29/2019 8:20 AM QUARTER TRIMMER Hypertension, essential COMPREHENSIVE METABOLIC PANEL (OUTREACH) Routine 07/29/2019 8:20 AM QUARTER TRIMMER Hypertension, essential LIPID PANEL Routine 07/29/2019 8:20 AM QUARTER TRIMMER Pure hypercholesterolemia documented in this encounter Results * eGFR (07/29/2019 8:20 AM QUARTER TRIMMER) Glomerular Filtration Rate - non -Jamaican >60 mL/min/1.7 3 m2 [facility] Comment: Interpretive Data Decrease in GFR ?? GFR (mL/min/1.73m2) ?? Significance. Normal to Mild ?Greater than 60 ? Normal, or near normal. Moderate ?15 - 60 ? Calculated GFR of less ?than 60 suggests chronic ?kidney disease,if found ?over a 3 month period. Severe ?Less than 15 ?Renal Failure. Current interpretive data was last revised on 2012. Glomerular Filtration Rate - -Jamaican >60 mL/min/1.7 3 m2 [facility] Blood specimen (specimen) 07/29/2019 8:20 AM QUARTER TRIMMER 07/29/2019 10:18 AM QUARTER TRIMMER Violeta Casillas DO LAB BLOOD ORDERABLES Fin al Result Performing Organization Address [facility] de Phone Number [facility] [address] [place] [address] * Glucose, random (Outreach) (07/29/2019 8:20 AM QUARTER TRIMMER) Glucose 111 70 - 199 mg/dL [facility] Comment: Interpretive Data Fasting glucose >/= [...] was last revised 2017. Blood specimen (specimen) 07/29/2019 8:20 AM QUARTER TRIMMER 07/29/2019 10:18 AM QUARTER TRIMMER Narrative [facility] - 07/29/2019 11:01 AM QUARTER TRIMMER Fasting >8 Violeta Casillas DO LAB BLOOD ORDERABLES Fin al Result Performing Organization Address [facility] Co de Phone Number [facility] [address] [place] [address] * Comprehensive metabolic panel, without glucose (Outreach) (07/29/2019 8:20 AM QUARTER TRIMMER) Sodium 135 135 - 145 mmol/L [facility] Potassium, pl 4.4 3.3 - 4.9 mmol/L [facility] Chloride 99 97 - 110 mmol/L [facility] CO2 27 22 - 32 mmol/L [facility] Anion gap 9 2 - 15 mmol/L [facility] BUN 14 8 - 25 mg/dL [facility] Creatinine 1.03 0.80 - 1.30 mg/dL [facility] Calcium 9.0 8.5 - 10.3 mg/dL [facility] Protein, pl 7.0 6.5 - 8.5 g/dL [facility] Albumin 4.2 3.5 - 5.2 g/dL [facility] Bilirubin, total 0.6 0.1 - 1.2 mg/dL [facility] Alk phos 96 40 - 130 Units/L [facility] AST 20 10 - 50 Units/L [facility] ALT 14 7 - 55 Units/L [facility] Blood specimen (specimen) 07/29/2019 8:20 AM QUARTER TRIMMER 07/29/2019 10:18 AM QUARTER TRIMMER Narrative [facility] - 07/29/2019 10:47 AM QUARTER TRIMMER Fasting >8 us Violeta Casillas DO LAB BLOOD ORDERABLES Fin al Result Performing Organization Address City/State/[facility] Co de Phone Number [facility] [address] [facility] Department [place] [address] * Lipid panel (07/29/2019 8:20 AM QUARTER TRIMMER) Cholesterol 123 30 - 199 mg/dL [facility] Comment: Interpretive Data Ages < or = 19 years ??Acceptable: ? <170 mg/dL ??Borderline high: ??170-199 mg/dL ??High: ? >or= 200 mg/dL Ages > or = 20 years ??Desirable: ?<200 mg/dL ??Borderline high: ??200-239 mg/dL ??High: ? >or= 240 mg/dL Literature References: 1. Expert Panel on Integrated Guidelines for Cardiovascular Health and Risk Reduction in Children and Adolescents. Pediatrics 2011;128:S213 2. NCEP Expert Panel. Circulation 2004;110:227 Current Interpretive Data was last revised on 2018. Triglycerides 83 <=149 mg/dL [facility] Comment: Interpretive Data Ages < or = 9 years ??Acceptable: ? <75 mg/dL ??Borderline high: ??75-99 mg/dL ??High: ? >or= 100 mg/dL Ages 10 to 20 years ??Acceptable: ? <90 mg/dL ??Borderline high: ??90-129 mg/dL ??High: ? >or= 130 mg/dL Ages > or = 20 years ??Desirable: ?<150 mg/dL ??Borderline high: ??150-199 mg/dL ??High: ? 200-499 mg/dL ?Very high: ?? >or= 499 mg/dL Literature References: 1. Expert Panel on Integrated Guidelines for Cardiovascular Health and Risk Reduction in Children and Adolescents. Pediatrics 2011;128:S213 2. NCEP Expert Panel. Circulation 2004;110:227 Current Interpretive Data was last revised on 2018. HDL 50 >=40 mg/dL [facility] Comment: Interpretive Data Ages < or = 19 years ??Acceptable: ? >45 mg/dL ??Borderline low: ?? 40-45 mg/dL ??Low: ? <40 mg/dL Ages > or = 20 years ??Desirable: ?>or= 60 mg/dL ??Low: ? <40 mg/dL Literature References: 1. Expert Panel on Integrated Guidelines for Cardiovascular Health and Risk Reduction in Children and Adolescents. Pediatrics 2011;128:S213 2. NCEP Expert Panel. Circulation 2004;110:227 Current Interpretive Data was last revised on 2018. LDL, calculated 56 <=129 mg/dL [facility] Comment: Interpretive Data Ages < or [...] Interpretive Data was last revised on 2018. Non-HDL Cholesterol 73 mg/dL [facility] Comment: Interpretive Data Ages < or = 19 years ??Acceptable: ?<120 mg/dL ??Borderline high: ??120-144 mg/dL ??High: ?>145 mg/dL Ages > or = 20 years ??When triglycerides are >200 mg/dL, Non-HDL cholesterol is a secondary target of ? therapy with treatment goals that are 30 mg/dL greater than the LDL cholesterol target. ? Literature References: 1. Expert Panel on Integrated Guidelines for Cardiovascular Health and Risk Reduction in Children and Adolescents. Pediatrics 2011;128:S213 2. NCEP Expert Panel. Circulation 2004;110:227 Current Interpretive Data was last revised on 2018. Chol/HDL ratio 2 [facility] Blood specimen (specimen) 07/29/2019 8:20 AM QUARTER TRIMMER 07/29/2019 10:18 AM QUARTER TRIMMER us Violeta Casillas DO LAB BLOOD ORDERABLES Fin al Result Performing Organization Address City/State/[facility] Phone Number [facility] [address] [facility] Department [place] [address] documented in this encounter Visit Diagnoses Diagnosis Pure hypercholesterolemia Hypertension, essential Unspecified essential hypertension documented in this encounter Care Teams Steel Wheel Engraver Relationship Specialty Start Date End Date Violeta Casillas DO PCP - General 09/29/16 09/15/21 documented as of this encounter
--- OUTSIDE RECORDS SUMMARY | 2024-07-09 02:19 | XMS_ITS | Encounter Summary ---
Author Organization [facility] Medical Group Address [address] [facility] [address] [place] [address] Care Team Providers Care Security Sme Name Role Phone Violeta Casillas DO Primary Care Provider + Reason for Visit * Reason Onset Date Comments Anticoagulation 04/25/2019 Encounter Details Date Type Department Care Team (Late st Contact Info) Description 04/25/2019 Telephone [facility] [address] [place] [address] Ruth Hankins LPN Anticoagulation Social History Tobacco Use Types Packs/Day Years Used Date Smoking Tobacco: Former Smokeless Tobacco: Former Alcohol Use Standard Drinks/Week Comments Yes 0 (1 standard drink = 0.6 oz pur e alcohol) PHQ-2 Answer Date Recorded PHQ-2 Score 0 02/22/2019 Sex and Gender Information Value Date Recorded Sex Assigned at Not on file Legal Sex Male 3:40 AM BILINGUAL CUSTOMER SERVICE Gender Identity Not on file Sexual Orientation Not on file documented as of this encounter Miscellaneous Notes * Telephone Encounter - Ruth Farmer LPN - 04/25/2019 1:20 PM CDT Patient returned call. He is aware * Telephone Encounter - Ruth Framer LPN - 04/25/2019 11:42 AM CDT Patient INR 1.[address] on [address] date[address] Per Dr[address] Casillas, patient to continue alternating 7-8 mg and recheck in one month. Left voicemail for patient to return call documented in this encounter Plan of Treatment Not on file documented as of this encounter Visit Diagnoses Not on filedocumented in this encounter Care Teams Security Sme Relationship Specialty Start Date End Date Violeta Casillas DO PCP - General 09/29/16 09/15/21 documented as of this encounter
--- OUTSIDE RECORDS SUMMARY | 2024-07-09 02:19 | XMS_ITS | Encounter Summary ---
Author Organization [facility] Address [address] [facility] [address] [place] [address] Care Team Providers Care Salesperson Women'S Hats Name Role Phone Violeta Casillas DO Primary Care Provider + Reason for Visit * Reason Comments Dizziness falls Encounter Details Date Type Department Care Team (Late st Contact Info) Description 05/06/2020 1:00 PM DAM OPERATOR [facility] [address] [place] [address] Violeta Casillas DO [address] [place] [address] Frequent falls (Primary Dx); Immunization due; Episode of recurrent major depressive disorder, unspecified depression episode severity (CMS/HCC); Weight loss; Tremor, unspecified; Memory impairment Social History Tobacco Use Types Packs/Day Years Used Date Smoking Tobacco: Former Smokeless Tobacco: Former Alcohol Use Standard Drinks/Week Comments Yes 0 (1 standard drink = 0.6 oz pur e alcohol) PHQ-2 Answer Date Recorded PHQ-2 Score 2 05/06/2020 Sex and Gender Information Value Date Recorded Sex Assigned at Not on file Legal Sex Male 3:40 AM DAM OPERATOR Gender Identity Not on file Sexual Orientation Not on file documented as of this encounter Last Filed Vital Signs Vital Sign Reading Time Taken Comments Blood Pressure 130/84 05/06/2020 1:11 PM DAM OPERATOR Pulse 79 05/06/2020 1:11 PM DAM OPERATOR Temperature 37 ??C (98.6 ??F) 05/06/2020 1:01 PM DAM OPERATOR Respiratory Rate 16 05/06/2020 1:01 PM DAM OPERATOR Oxygen Saturation 91% 05/06/2020 1:11 PM DAM OPERATOR Inhaled Oxygen Concentration - - Weight 71.4 kg (157 lb 6.4 oz) 05/06/2020 1:01 P M DAM OPERATOR Height 182.9 cm (6' 0.01 ) 05/06/2020 1:01 PM CS T Body Mass Index 21.34 05/06/2020 1:01 PM DAM OPERATOR documented in this encounter Ordered Prescriptions Prescription Sig Dispense Quantity Refills Last Filled Start Date End Date rOPINIRole (REQUIP) 0.25 mg tabletIndications: Restless Legs Syndrome Take 1 tablet (0.25 mg total) by mouth 3 (three) times a day For tremors 90 tablet 11 05/06/2020 1 documented in this encounter Progress Notes * Violeta Casillas, - 05/06/2020 1:00 PM CST Images from the original note were not included. Subjective/Objective Patient ID: Noé Daivla is a 84 y.o. male. Chief Complaint Dizziness (falls) Vitals: 05/06/20 1301 05/06/20 1306 05/06/20 1311 BP: 128/80 120/82 130/84 BP Location: Left arm Left arm Left arm Patient Position: Lying Sitting Standing Pulse: 78 79 79 Resp: 16 Temp: 37 ??C (98.6 ??F) TempSrc: Temporal SpO2: 97% 96% 91% Weight: 71.4 kg (157 lb 6.4 oz) Height: 182.9 cm (6' 0.01 ) Body mass index is 21.34 kg/m??. Patient has noticed resting and intentional tremors for years but seems to be worsening. He has trouble drinking and eating. He cannot read or write but if he had to write he couldn't. Dizziness This is a recurrent problem. The current episode started more than 1 month ago. The problem occurs intermittently. The problem has been gradually worsening. Pertinent negatives include no abdominal pain, chest pain, coughing, fatigue, fever, headaches, nausea, numbness, vomiting or weakness. The symptoms are aggravated by bending. He has tried nothing for the symptoms. I have reviewed medical, social, and family histories in depth with patient and/or their entry level marketing representative. Review of Systems Constitutional: Positive for unexpected weight change (decreased). Negative for activity change, appetite change, fatigue and fever. Respiratory: Negative for cough and shortness of breath. Cardiovascular: Negative for chest pain and palpitations. Gastrointestinal: Negative for abdominal pain, constipation, diarrhea, nausea and vomiting. Genitourinary: Positive for decreased urine volume. Negative for dysuria, frequency and urgency. Neurological: Positive for dizziness. Negative for weakness, numbness and headaches. Psychiatric/Behavioral: Negative for dysphoric mood and sleep disturbance. The patient is not nervous/anxious. PHQ Screening PHQ-2 Total Score (If total [...] Diagnoses and all orders for this visit: Frequent falls (Primary) Assessment & Plan: Refuses neuro or PT consult. I think he falls more from flexing his neck versus position changes, stumbling, or orthostasis. During the office visit that took at least 40 minutes, I spent over 50% of the time either counseling, educating, discussing plan of treatment, or answering questions today. Orders: - Ambulatory referral to ACO Care Management; Future Immunization due - Flu Vaccine Quad High Dose PF 65Y+ IM - Fluzone High Dose Quad Episode of recurrent major depressive disorder, unspecified depression episode severity (CMS/HCC) Assessment & Plan: Patient symptomatic and not sure if he actually takes prescribed meds or not. Consult ACO Orders: - Ambulatory referral to ACO Care Management; Future Weight loss Assessment & Plan: Possible improvement with Mirtazapine (if he is actually taking this med??) Consult ACO Orders: - Ambulatory referral to ACO Care Management; Future Tremor, unspecified Assessment & Plan: Refuses consult with neuro or anything that might cost him money. Trial Requip (ropinirole) 0.25mg tid. Consult ACO Orders: - Ambulatory referral to ACO Care Management; Future Memory impairment Assessment & Plan: Unsure exact cause. Depression vs nutrition vs dehydration vs possible parkinsons?? Consult ACO He is recently less than 2 years ago. No family or friend support. Probable poor nutrition.Difficulty getting him to take meds as intended. Other orders - rOPINIRole (REQUIP) 0.25 mg tablet; Take 1 tablet (0.25 mg total) by mouth 3 (three) times a day For tremors BMI Follow-up includes: education provided. Orders Placed This Encounter ??? Flu Vaccine Quad High Dose PF 65Y+ IM - Fluzone High Dose Quad ??? Ambulatory referral to ACO Care Management He is recently less than 2 years ago. No family or friend support. Probable poor nutrition.Difficulty getting him to take meds as intended. Standing Status: Future Standing Expiration Date: 05/06/2021 Referral Priority: Routine Referral Type: Consultation Referral Reason: Specialty Services Required Referral Location: [facility] Number of Visits Requested: 1 ??? rOPINIRole (REQUIP) 0.25 mg tablet Sig: Take 1 tablet (0.25 mg total) by mouth 3 (three) times a day For tremors Dispense: 90 tablet Refill: 11 Current Outpatient Medications Medication Sig Dispense Refill ??? amitriptyline (ELAVIL) 10 mg tablet TAKE 1 TABLET BY MOUTH AT BEDTIME 30 tablet 0 ??? atorvastatin (LIPITOR) 20 mg tablet Take 1 tablet (20 mg total) by mouth nightly 90 tablet 3 ??? mirtazapine (REMERON) 15 mg tablet Take 1 tablet (15 mg total) by mouth nightly 30 tablet 2 ??? warfarin (COUMADIN) 1 mg tablet TAKE 2 TABLETS BY MOUTH ONCE DAILY DIRECTED 90 tablet 0 ??? warfarin (COUMADIN) 5 mg tablet TAKE 1 TABLET BY MOUTH AT BEDTIME *TAKE WITH TWO 1 MG TABLETS TO EQUAL 7 MG AT BEDTIME* 30 tablet 0 ??? dextromethorphan-guaifenesin 5-100 mg/5 mL liquid Take [...] Casillas DO This note was dictated using [employer] voice recognition software. Variances in spelling and vocabulary are possible and errors are unintentional. OPERATOR documented in this encounter Miscellaneous Notes * Assessment & Plan Note - Violeta Casillas DO - 05/06/2020 11:37 PM DAM OPERATOR Associated Problem(s): Recurrent major depressive disorder (HCC) Patient symptomatic and not sure if he actually takes prescribed meds or not. Consult ACO OPERATOR * Assessment & Plan Note - Violeta Casillas DO - 05/06/2020 11:33 PM DAM OPERATOR Associated Problem(s): Frequent falls Refuses neuro or PT consult. I think he falls more from flexing his neck versus position changes, stumbling, or orthostasis. During the office visit that took at least 40 minutes, I spent over 50% of the time either counseling, educating, discussing plan of treatment, or answering questions today. OPERATOR OPERATOR * Assessment & Plan Note - Violeta Casillas DO - 05/06/2020 11:32 PM DAM OPERATOR Associated Problem(s): Tremor, unspecified Refuses consult with neuro or anything that might cost him money. Trial Requip (ropinirole) 0.25mg tid. Consult ACO OPERATOR * Assessment & Plan Note - Violeta Casillas DO - 05/06/2020 11:30 PM DAM OPERATOR Associated Problem(s): Cognitive impairment Unsure exact cause. Depression vs nutrition vs dehydration vs possible parkinsons?? Consult ACO He is recently less than 2 years ago. No family or friend support. Probable poor nutrition.Difficulty getting him to take meds as intended. OPERATOR * Assessment & Plan Note - Violeta Casillas DO - 05/06/2020 11:29 PM DAM OPERATOR Associated Problem(s): Weight loss Possible improvement with Mirtazapine (if he is actually taking this med??) Consult ACO OPERATOR OPERATOR documented in this encounter Plan of Treatment Not on file documented as of this encounter Visit Diagnoses Diagnosis Frequent falls- Primary Immunization due Episode of recurrent major depressive disorder, unspecified depression episode severity (HCC) Weight loss Loss of weight Tremor, unspecified Memory impairment Memory loss documented in this encounter Discontinued Medications Medication Sig Discontinue Reason Start Date End Da te amitriptyline (ELAVIL) 10 mg tablet TAKE 1 TABLET BY MOUTH AT BEDTIME 03/10/2020 05/06/2020 documented as of this encounter Orders Immunization/Injection Count Last Ordered Date First Ordered Date FLU VACCINE HIGH DOSE QUAD P F 65Y+ IM - FLUZONE HIGH DOS 1 05/06/2020 documented in this encounter Care Teams Salesperson Women'S Hats Relationship Specialty Start Date End Date Violeta Casillas DO PCP - General 09/29/16 09/15/21 documented as of this encounter
--- OUTSIDE RECORDS SUMMARY | 2024-07-09 02:19 | XMS_ITS | Encounter Summary ---
Author Organization [facility] Address [address] [address] Care Team Providers Care Generating Station Mechanic Name Role Phone Violeta Casillas DO Primary Care Provider + Reason for Visit * Reason Comments Follow-up Encounter Details Date Type Department Care Team (Latest Contact Info) Description 07/28/2019 10:15 AM LEVEL GLASS VIAL FILLER [facility] Visit [facility] [address] [place] [address] Violeta Casillas DO [address] [place] [address] Hypertension, essential (Primary Dx); Benign prostatic hyperplasia with urinary hesitancy; Prediabetes; Chronic rhinitis; Pure hypercholesterolemia Social History Tobacco Use Types Packs/Day Years Used Date Smoking Tobacco: Former Smokeless Tobacco: Former Alcohol Use Standard Drinks/Week Comments Yes 0 (1 standard drink = 0.6 oz pur e alcohol) PHQ-2 Answer Date Recorded PHQ-2 Score 6 07/28/2019 Sex and Gender Information Value Date Recorded Sex Assigned at Not on file Legal Sex Male 3:40 AM LEVEL GLASS VIAL FILLER Gender Identity Not on file Sexual Orientation Not on file documented as of this encounter Last Filed Vital Signs Vital Sign Reading Time Taken Comments Blood Pressure 148/82 07/28/2019 9:51 AM LEVEL GLASS VIAL FILLER Pulse 70 07/28/2019 9:51 AM LEVEL GLASS VIAL FILLER Temperature 36.9 ??C (98.5 ??F) 07/28/2019 9:51 AM CS T Respiratory Rate 18 07/28/2019 9:51 AM LEVEL GLASS VIAL FILLER Oxygen Saturation 95% 07/28/2019 9:51 AM LEVEL GLASS VIAL FILLER Inhaled Oxygen Concentration - - Weight 69.9 kg (154 lb 3.2 oz) 07/28/2019 9:51 A M LEVEL GLASS VIAL FILLER Height 185.4 cm (6' 0.99 ) 07/28/2019 9:51 AM CS T Body Mass Index 20.35 07/28/2019 9:51 AM LEVEL GLASS VIAL FILLER documented in this encounter Ordered Prescriptions Prescription Sig Dispense Quantity Refills Last Filled Start Date End Date fluticasone propionate (FLONASE) 50 mcg/actuation nasal sprayIndications:C hronic rhinitis Administer 2 sprays into each nostril daily 16 g 5 07/28/2019 1 doxazosin (CARDURA) 2 mg tabletIndications: Hypertension, essential,Benign prostatic hyperplasia with urinary hesitancy Take 0.5 tablets (1 mg total) by mouth nightly for 7 days, THEN 1 tablet (2 mg total) nightly for 23 days. 27 tablet 07/28/2019 0 documented in this encounter Progress Notes * Violeta Casillas DO - 07/28/2019 10:15 AM CST Subjective/Objective Patient ID: Noé Davila is a 83 y.o. male. Chief Complaint Follow-up Vitals: 07/28/19 0951 BP: 148/82 Pulse: 70 Resp: 18 Temp: 36.9 ??C (98.5 ??F) TempSrc: Temporal SpO2: 95% Weight: 69.9 kg (154 lb 3.2 oz) Height: 185.4 cm (6' 0.99 ) Body mass index is 20.35 kg/m??. Noé Davila is here for follow up on chronic problems, at least one of which is hyperlipidemia. All prescribed medications are tolerated well without any reported side effects or intolerances. Patient claims he is doing ok with grief with recent passing of his late last year. I have reviewed medical, social, and family histories in depth with patient and/or their practice representative. Review of Systems Constitutional: Negative for fatigue and fever. HENT: Positive for congestion and rhinorrhea. Respiratory: Negative for cough and shortness of breath. Cardiovascular: Negative for chest pain and palpitations. Gastrointestinal: Negative for diarrhea, nausea and vomiting. Psychiatric/Behavioral: Positive for dysphoric mood. Negative for suicidal ideas. PHQ Screening PHQ-2 Total Score (If total score is 3 or more points, staff should administer the PHQ-9): 6 PHQ-9 Total Score: 10 Physical Exam Vitals signs and nursing note reviewed. Constitutional: General: He is not in acute distress. Appearance: Normal appearance. He is well-developed. He is not ill-appearing. HENT: Head: Normocephalic and atraumatic. Eyes: Conjunctiva/sclera: [...] nerve deficit. Psychiatric: Behavior: Behavior normal. Assessment/Plan Diagnoses and all orders for this visit: Hypertension, essential (Primary) Assessment & Plan: New diagnosis. Start doxazosin (Cardura) for combined benefit of HTN and BPH. Call back with updatein 2-3 weeks and blood pressure readings if possible. Orders: - doxazosin (CARDURA) 2 mg tablet; Take 0.5 tablets (1 mg total) by mouth nightly for 7 days, THEN 1 tablet (2 mg total) nightly for 23 days. Benign prostatic hyperplasia with urinary hesitancy Assessment & Plan: Start doxazosin (Cardura). Patient opted out of getting PSA testing at this time. Orders: - doxazosin (CARDURA) 2 mg tablet; Take 0.5 tablets (1 mg total) by mouth nightly for 7 days, THEN 1 tablet (2 mg total) nightly for 23 days. Prediabetes Assessment & Plan: Get new labs Chronic rhinitis Assessment & Plan: Start Flonase (fluticasone). Demonstrated use. Orders: - fluticasone propionate (FLONASE) 50 mcg/actuation nasal spray; Administer 2 sprays into each nostril daily Pure hypercholesterolemia Assessment & Plan: Get updated labs soon. BMI Follow-up includes: education provided. Orders Placed This Encounter ??? doxazosin (CARDURA) 2 mg tablet Sig: Take 0.5 tablets (1 mg total) by mouth nightly for 7 days, THEN 1 tablet (2 mg total) nightly for 23 days. Dispense: 27 tablet Refill: 0 ??? fluticasone propionate (FLONASE) 50 mcg/actuation nasal spray Sig: Administer 2 sprays into each nostril daily Dispense: 16 g Refill: 5 Current Outpatient Medications Medication Sig Dispense Refill ??? amitriptyline (ELAVIL) 10 mg tablet TAKE 1 TABLET BY MOUTH AT BEDTIME 30 tablet 0 ??? lovastatin [...] MG TABLETSTO EQUAL 7 MG AT BEDTIME* 30 tablet 6 ??? dextromethorphan-guaifenesin 5-100 mg/5 mL liquid Take 5-10 mL by mouth every 4 (four) hours asneeded (cough and congestion) (Patient not taking: Reported on 07/28/2019) 1 Bottle 2 ??? doxazosin (CARDURA) 2 mg tablet Take 0.5 tablets (1 mg total) by mouth nightly for 7 days, THEN1 tablet (2 mg total) nightly for 23 days. 27 tablet 0 No current facility-administered medications for this visit. This note was dictated using [employer] voice recognition software. Variances in spelling and vocabulary are possible and errors are unintentional. L GLASS VIAL FILLER documented in this encounter Miscellaneous Notes * Assessment & Plan Note - Violeta Casillas DO - 07/28/2019 11:20 PM LEVEL GLASS VIAL FILLER Associated Problem(s): Pure hypercholesterolemia Get updated labs soon. L GLASS VIAL FILLER * Assessment & Plan Note - Violeta Casillas DO - 07/28/2019 11:20 PM LEVEL GLASS VIAL FILLER Associated Problem(s): Chronic rhinitis Start Flonase (fluticasone). Demonstrated use. L GLASS VIAL FILLER * Assessment & Plan Note - Violeta Casillas DO - 07/28/2019 11:16 PM LEVEL GLASS VIAL FILLER Associated Problem(s): Prediabetes Get new labs L GLASS VIAL FILLER * Assessment & Plan Note - Violeta Casillas DO - 07/28/2019 11:16 PM LEVEL GLASS VIAL FILLER Associated Problem(s): Benign prostatic hyperplasia with urinary hesitancy Start doxazosin (Cardura). Patient opted out of getting PSA testing at this time. L GLASS VIAL FILLER * Assessment & Plan Note - Violeta Casillas DO - 07/28/2019 11:15 PM LEVEL GLASS VIAL FILLER Associated Problem(s): Hypertension, essential New diagnosis. Start doxazosin (Cardura) for combined benefit of HTN and BPH. Call back with updatein 2-3 weeks and blood pressure readings if possible. L GLASS VIAL FILLER documented in this encounter Plan of Treatment Not on file documented as of this encounter Visit Diagnoses Diagnosis Hypertension, essential- Primary Unspecified essential hypertension Benign prostatic hyperplasia with urinary hesitancy Prediabetes Other abnormal glucose Chronic rhinitis Pure hypercholesterolemia documented in this encounter Care Teams Generating Station Mechanic Relationship Specialty Start Date End Date Violeta Casillas DO PCP - General 09/29/16 09/15/21 documented as of this encounter
--- OUTSIDE RECORDS SUMMARY | 2024-07-09 02:19 | XMS_ITS | Encounter Summary ---
Author Organization [facility] Address [address] [address] Care Team Providers Care Pressing Machine Operator Name Role Phone Violeta Casillas DO Primary Care Provider + Encounter Details Date Type Department Care Team (Late st Contact Info) Description 07/17/2019 Anticoagulation Visit [facility] [address] [place] [id number] Violeta Casillas DO [address] [place] [address] Social History Tobacco Use Types Packs/Day Years Used Date Smoking Tobacco: Former Smokeless Tobacco: Former Alcohol Use Standard Drinks/Week Comments Yes 0 (1 standard drink = 0.6 oz pur e alcohol) PHQ-2 Answer Date Recorded PHQ-2 Score 0 02/22/2019 Sex and Gender Information Value Date Recorded Sex Assigned at Not on file Legal Sex Male 3:40 AM FIELD SERVICE TECH Gender Identity Not on file Sexual Orientation Not on file documented as of this encounter Plan of Treatment Not on file documented as of this encounter Visit Diagnoses Not on filedocumented in this encounter Care Teams Pressing Machine Operator Relationship Specialty Start Date End Date Violeta Casillas DO PCP - General 09/29/16 09/15/21 documented as of this encounter
--- OUTSIDE RECORDS SUMMARY | 2024-07-09 02:19 | XMS_ITS | Encounter Summary ---
Author Organization [facility] Address [address] [facility] [address] [place] [address] Care Team Providers Care Recreational Director Name Role Phone Violeta Casillas DO Primary Care Provider + Encounter Details Date Type Department Care Team (Late st Contact Info) Description 07/14/2019 9:00 AM FLIGHT TEST MECHANIC Lab [facility] [address] [place] [address] Atrial fibrillation, unspecified type (CMS/HCC) Social History Tobacco Use Types Packs/Day Years Used Date Smoking Tobacco: Former Smokeless Tobacco: Former Alcohol Use Standard Drinks/Week Comments Yes 0 (1 standard drink = 0.6 oz pur e alcohol) PHQ-2 Answer Date Recorded PHQ-2 Score 0 02/22/2019 Sex and Gender Information Value Date Recorded Sex Assigned at Not on file Legal Sex Male 3:40 AM FLIGHT TEST MECHANIC Gender Identity Not on file Sexual Orientation Not on file documented as of this encounter Plan of Treatment Not on file documented as of this encounter Procedures Procedure Name Priority Date/Time Associated Diagnosis Comments POCT INR Routine 07/14/2019 9:00 AM FLIGHT TEST MECHANIC Atrial fibrillation, unspecified type (CMS/HCC) documented in this encounter Results * POCT INR (07/14/2019 9:00 AM FLIGHT TEST MECHANIC) INR, POC 2.1 Blood specimen (specimen) (Blood, Venous) 07/14/2019 9:00 AM FLIGHT TEST MECHANIC Violeta Casillas DO POINT OF CARE TEST ORDER ANDREZ Final Result documented in this encounter Visit Diagnoses Diagnosis Atrial fibrillation, unspecified type (HCC) documented in this encounter Care Teams Recreational Director Relationship Specialty Start Date End Date Violeta Casillas DO PCP - General 09/29/16 09/15/21 documented as of this encounter
--- OUTSIDE RECORDS SUMMARY | 2024-07-09 02:19 | XMS_ITS | Encounter Summary ---
Author Organization [facility] Care Team Providers Care Air Drier Name Role Phone Violeta Casillas DO Primary Care Provider + Encounter Details Date Type Department Care Team (Latest Contact Info) Description 07/04/2019 Travel Social History Tobacco Use Types Packs/Day Years Used Date Smoking Tobacco: Former Smokeless Tobacco: Former Alcohol Use Standard Drinks/Week Comments Yes 0 (1 standard drink = 0.6 oz pur e alcohol) PHQ-2 Answer Date Recorded PHQ-2 Score 0 02/22/2019 Sex and Gender Information Value Date Recorded Sex Assigned at Not on file Legal Sex Male 3:40 AM IT SOLUTIONS ARCHITECT Gender Identity Not on file Sexual Orientation Not on file documented as of this encounter Plan of Treatment Not on file documented as of this encounter Visit Diagnoses Not on filedocumented in this encounter Care Teams Air Drier Relationship Specialty Start Date End Date Violeta Casillas DO PCP - General 09/29/16 09/15/21 documented as of this encounter
--- OUTSIDE RECORDS SUMMARY | 2024-07-09 02:19 | XMS_ITS | Encounter Summary ---
Author Organization [facility] Address [address] [place] [address] Phone Care Team Providers Care Shim Plug Cutter Name Role Phone Violeta Casillas Primary Care Provider + Spring Banerjee RN Unavailable [phone] Dayana Marina LCSW Unavailable [phone] Reason for Visit * Auth/Cert Specialty Diagnoses / Procedures Referred By Ignacia t Referred To Contact Referral ID Status Reason Start Date Expiration Date Visits Re quested Visits Authorized [id number] 1 1 Encounter Details Date Type Department Care Team (Late st Contact Info) Description 05/12/2020 Home Care Visit [facility] [address] [address] Shanelle Guillen, CHEST PAINTING AND SEALING SUPERVISOR SCREENING CASE COMMUNICATION Social History Tobacco Use [...] often do you attend chur ch or oriental orthodox services? Never 05/13/2020 Do you belong to any clubs o r organizations such as tenriism groups, unions, fraternal or athletic groups, or [...] on file Legal Sex Male 3:40 AM WARDROBE COORDINATOR Gender Identity Not on file Sexual Orientation Not on file documented as of this encounter Plan of Treatment Not on file documented as of this encounter Visit Diagnoses Not on filedocumented in this encounter Care Teams Shim Plug Cutter Relationship Specialty Start Date End Date Violeta Casillas DO PCP - General 09/29/16 09/15/21 Spring Banerjee RN [address] [place] [address] Fabric Sourcer 05/07/20 12/29/20 Dayana Marina LCSW [address] [facility] [place] [address] Irrigator Overhead 05/10/20 05/25/20 documented as of this encounter
--- OUTSIDE RECORDS SUMMARY | 2024-07-09 02:19 | XMS_ITS | Encounter Summary ---
Author Organization [facility] Medical Group Address [address] [place] [address] Care Team Providers Care Grocery Caddy Name Role Phone CasillasDiazlexa Dominic Primary Care Provider + Spring Banerjee RN Unavailable [phone] Dayana Marina INVENTORY AUDIT CLERK Unavailable [phone] Reason for Visit * Reason Onset Date Comments Patient issue/concern 05/10/2020 Encounter Details Date Type Department Care Team (Late st Contact Info) Description 05/10/2020 Telephone [facility] [address] [place] [address] Spring Banerjee, RN [address] [place] [address] [address] [place] [address] Patient issue/concern Social History Tobacco Use Types [...] and Family Not on file 05/12/2020 Attends [employer] Services Not on file 05/12 Active Member of Clubs or Organizations Not on f ile 05/12/2020 Attends Club or Organization Meetings Not on jose e 05/12/2020 Marital Status Not on file 05/12/2020 PHQ-2 Answer Date Recorded PHQ-2 Score 2 05/06/2020 Sex and Gender Information Value Date Recorded Sex Assigned at Not on file Legal Sex Male 3:40 AM CONFERENCE SERVICES DIRECTOR Gender Identity Not on file Sexual Orientation Not on file documented as of this encounter Miscellaneous Notes * Telephone Encounter - Ruth Farmer LPN - 05/11/2020 8:47 AM CST Orders placed for [facility] Home Care ERENCE SERVICES DIRECTOR * Telephone Encounter - Violeta Casillas DO - 05/11/2020 8:38 AM CONFERENCE SERVICES DIRECTOR That sounds like a great idea as long as its not too expensive because he seems fixated on that whenever I try to think about treatment options for him. I say we try that. Will have Ruth put those orders in. SN, SW, and PT ERENCE SERVICES DIRECTOR * Telephone Encounter - Ruth Farmer LPN - 05/10/2020 2:01 PM CST See note ERENCE SERVICES DIRECTOR * Telephone Encounter - Spring Banerjee RN - 05/10/2020 1:48 PM CONFERENCE SERVICES DIRECTOR This ACO pt has been enrolled into the Complex Care Program. I have been unable to accurately address pt's med management with him over the phone. Pt reports managing his meds by shape and color and thinks he gets his meds wrong often. Can Home Health Nursing and Home Health Social Work be ordered? Secondly, per the chart review pt has had increased falls - would Home Health Physical Therapy also be beneficial? Please Advise, Spring HAQUE RN [facility] Groundman [phone] ERENCE SERVICES DIRECTOR documented in this encounter Plan of Treatment Not on file documented as of this encounter Visit Diagnoses Diagnosis Episode of recurrent major depressive disorder, unspecified depression episode severity (HCC)- Primary Weight loss Loss of weight Frequent falls Memory impairment Memory loss Chronic obstructive pulmonary disease, unspecified COPD type (HCC) Chronic atrial fibrillation (HCC) Atrial fibrillation Hypertension, essential Unspecified essential hypertension documented in this encounter Care Teams Grocery Caddy Relationship Specialty Start Date End Date CasillasVioletaDO PCP - General 09/29/16 09/15/21 Spring Banerjee RN [address] [place], [place] [id number] Groundman 05/07/20 12/29/20 Dayana Marina LCSW [address] [place], [place] [id number] Hot Top Liner Helper 05/10/20 05/25/20 documented as of this encounter
--- OUTSIDE RECORDS SUMMARY | 2024-07-09 02:19 | XMS_ITS | Encounter Summary ---
Author Organization [facility] Medical Group Address [address] [address] Care Team Providers Care Dry Man Name Role Phone Violeta Casillas DO Primary Care Provider + Encounter Details Date Type Department Care Team (Late st Contact Info) Description 04/25/2019 9:15 AM CDT Lab Medical [facility] [address] [facility] Atrial fibrillation, unspecified type (CMS/HCC) Social History Tobacco Use Types Packs/Day Years Used Date Smoking Tobacco: Former Smokeless Tobacco: Former Alcohol Use Standard Drinks/Week Comments Yes 0 (1 standard drink = 0.6 oz pur e alcohol) PHQ-2 Answer Date Recorded PHQ-2 Score 0 02/22/2019 Sex and Gender Information Value Date Recorded Sex Assigned at Not on file Legal Sex Male 3:40 AM SALES REP Gender Identity Not on file Sexual Orientation Not on file documented as of this encounter Plan of Treatment Not on file documented as of this encounter Procedures Procedure Name Priority Date/Time Associated Diagnosis Comments POCT INR Routine 04/25/2019 9:27 AM CDT Atrial fibrillation, unspecified type (CMS/HCC) documented in this encounter Results * POCT INR (04/25/2019 9:27 AM CDT) INR, POC 1.9 Blood specimen (specimen) (Blood, Venous) 04/25/2019 9:27 AM CDT Violeta Casillas DO POINT OF CARE TEST ORDER ANDREZ Final Result documented in this encounter Visit Diagnoses Diagnosis Atrial fibrillation, unspecified type (HCC) documented in this encounter Care Teams Dry Man Relationship Specialty Start Date End Date Violeta Casillas DO PCP - General 09/29/16 09/15/21 documented as of this encounter
--- OUTSIDE RECORDS SUMMARY | 2024-07-09 02:20 | XMS_ITS | Encounter Summary ---
Author Organization [facility] Medical Group Address [address] [facility] [address] [place] [address] Care Team Providers Care Precision Jig Grinder Name Role Phone Violeta Casillas DO Primary Care Provider + Encounter Details Date Type Department Care Team (Late st Contact Info) Description 12/13/2018 8:00 AM CDT Lab [facility] [address] [facility] Social History Tobacco Use Types Packs/Day Years Used Date Smoking Tobacco: Former Smokeless Tobacco: Former Alcohol Use Standard Drinks/Week Comments Yes 0 (1 standard drink = 0.6 oz pur e alcohol) Sex and Gender Information Value Date Recorded Sex Assigned at Not on file Legal Sex Male 3:40 AM CHEMISTS Gender Identity Not on file Sexual Orientation Not on file documented as of this encounter Plan of Treatment Not on file documented as of this encounter Visit Diagnoses Not on filedocumented in this encounter Care Teams Precision Jig Grinder Relationship Specialty Start Date End Date Violeta Casillas DO PCP - General 09/29/16 09/15/21 documented as of this encounter
--- OUTSIDE RECORDS SUMMARY | 2024-07-09 02:20 | XMS_ITS | Encounter Summary ---
Author Organization [facility] Medical Group Address [address] [facility] [address] [place] [address] Care Team Providers Care Citrus Picker Name Role Phone Violeta Casillas DO Primary Care Provider + Reason for Visit * Reason Comments Medicare Wellness labs Encounter Details Date Type Department Care Team (Late st Contact Info) Description 12/18/2018 8:00 AM CDT [facility] Visit [facility] [address] [place] [address] Violeta Casillas DO [address] [place] [address] Well adult exam (Primary Dx); Chronic atrial fibrillation (CMS/HCC); Hearing difficulty of both ears; Prediabetes; Chronic obstructive pulmonary disease, unspecified COPD type (CMS/HCC); Pure hypercholesterolemia; Mild episode of recurrent major depressive disorder (CMS/HCC); Need for pneumococcal vaccine Social History Tobacco Use Types Packs/Day Years Used Date Smoking Tobacco: Former Smokeless Tobacco: Former Alcohol Use Standard Drinks/Week Comments Yes 0 (1 standard drink = 0.6 oz pur e alcohol) Sex and Gender Information Value Date Recorded Sex Assigned at Not on file Legal Sex Male 3:40 AM SPECIAL WARFARE COMBATANT CREWMAN Gender Identity Not on file Sexual Orientation Not on file documented as of this encounter Last Filed Vital Signs Vital Sign Reading Time Taken Comments Blood Pressure 128/68 12/18/2018 8:11 AM CDT Pulse 62 12/18/2018 8:11 AM CDT Temperature 36.5 ??C (97.7 ??F) 12/18/2018 8:11 AM CD T Respiratory Rate 16 12/18/2018 8:11 AM CDT Oxygen Saturation 92% 12/18/2018 8:11 AM CDT Inhaled Oxygen Concentration - - Weight 71.3 kg (157 lb 3.2 oz) 12/18/2018 8:11 A M CDT Height 185.4 cm (6' 0.99 ) 12/18/2018 8:11 AM CD T Body Mass Index 20.74 12/18/2018 8:11 AM CDT documented in this encounter Progress Notes * Violeta Casillas, DO - 12/18/2018 8:00 AM CDT Images from the original note were not included. MEDICARE ANNUAL WELLNESS VISIT Patient Name: Noé Davila : 1935 Date of Service: 12/18/2018 Medicare Health Risk Assessment Basic Information In general, would you say your health is: Fair Do you have an Advanced Directive (Living Will) and/or Durable Power of Dental Surgeon?: No Would you like information regarding Advanced Directiv (Living Will) and/or Durable Power of Dental Surgeon?: No Do you have trouble hearing the television [...] Handling Money: No Shopping: No Food preparation: No Transportation: No Taking and/or getting your own medications: No Chief Complaint: Chief Complaint Patient presents with ??? Medicare Wellness labs Patient is here for yearly wellness visit and to follow up on chronic problems at least one of which is atrial fibrillation. Patient reports no side effects from medications. He would like to get his INR checked at lab since his home monitoring system is costing him $20/month after insurance. Past Medical and Surgical History: Past Medical [...] resource strain: Not on file ??? Food insecurity: Worry: Not on file Inability: Not on file ??? Transportation needs: Medical: Not on file Non-medical: Not on file Tobacco Use ??? Smoking status: Former Smoker ??? Smokeless tobacco: Former User Substance and Sexual Activity ??? Alcohol use: Yes ??? Drug use: No ??? Sexual activity: Defer Lifestyle ??? Physical activity: Days per week: Not on file Minutes per session: Not on file ??? Stress: Not on file Relationships ??? Social connections: Talks on phone: Not on file Gets together: Not on file Attends oriental orthodox service: Not on file Active member of club or organization: Not on file Attends meetings of clubs or organizations: Not on file Relationship status: Not on file ??? Intimate partner violence: Fear of current or ex partner: Not on file Emotionally abused: Not on file Physically abused: Not on file Forced sexual activity: Not on file Other Topics Concern ??? Not on file Social History Narrative ??? Not on file Diet: Well rounded. Physical Activities: Active but no exercise. Allergies: No Known Allergies Current Medications: Outpatient Encounter Medications as of 12/18/2018 Medication Sig Dispense Refill ??? amitriptyline (ELAVIL) [...] 7 MG AT BEDTIME* 90 tablet 2 ??? acetaminophen ER (TYLENOL) 650 mg 8 hr tablet Take 1-2 tablets (650-1,300 mg total) by mouth every 8 (eight) hours as needed for pain, fever or headaches. (Patient not taking: Reported on 12/18/2018) 30 tablet ??? albuterol HFA (PROAIR HFA) 90 mcg/actuation inhaler Inhale 2 puffs every 4 (four) hours as needed for wheezing or shortness of breath. (Patient not taking: Reported on 03/29/2018 ) 8.5 g 0 No facility-administered encounter medications on file as of 12/18/2018. Depression Screen: PHQ Screening Over the last 2 weeks, how often have you been bothered by any of the following problems? Little Interest or Pleasure in Doing Things: Not at all Feeling Down, Depressed, or Hopeless: Not at all PHQ-2 Total Score (If total score is 3 or more points, staff should administer the PHQ-9): 0 Over the past 2 weeks, how often have you been bothered by any of the following problems? Little Interest or Pleasure in Doing Things: Not at all Feeling Down, Depressed, or Hopeless: Not at all Audio Screen: Is the patient having any problems with hearing? Yes Audio Screen ordered? Yes Review of Systems Constitutional: Negative for fatigue and fever. Respiratory: Negative for cough and shortness of breath. Cardiovascular: Negative for chest pain and palpitations. Gastrointestinal: Negative for diarrhea, nausea and vomiting. Vitals: Vitals: 12/18/18 0811 BP: 128/68 Pulse: 62 Resp: 16 Temp: 36.5 ??C (97.7 ??F) TempSrc: Tympanic SpO2: 92% Weight: 71.3 kg (157 lb 3.2 oz) Height: 185.4 cm (6' 0.99 ) Physical Exam Constitutional: He is oriented to person, place, and time. He appears well- developed and well-nourished. No distress. HENT: Head: Normocephalic and atraumatic. Eyes: Conjunctivae are normal. Cardiovascular: Normal rate, regular rhythm and normal heart sounds. Exam reveals no gallop and no friction rub. No murmur heard. Pulmonary/Chest: Effort normal and breath sounds normal. No respiratory distress. Abdominal: Bowel sounds are normal. Musculoskeletal: He exhibits no edema. Neurological: He is alert and oriented to person, place, and time. No cranial nerve deficit. Skin: No rash noted. No erythema. Psychiatric: He has a normal mood and affect. His behavior is normal. Nursing note and vitals reviewed. Up and Go Test: Patient was unsteady or time test was longer than 30 seconds? No Care Team Providers: Patient Care Team: Violeta Casillas, DO as PCP - General Violeta Casillas DO as PCP - [facility] Attributed PCP Primary Pharmacy/DME suppliers: [facility] [address] [place], [place] - [address] [place] [address] [address] [facility] [address] [facility] [address] [facility] [address] [facility] [address] [facility] [address] Detection of Cognitive Impairment: Detect cognitive impairment [...] monitoring guidelines. Advanced Directive Durable Power of Dental Surgeon: No Living Will: No Assessment / Plan: Diagnoses and all orders for this visit: Well adult exam (Primary) Comments: Discussed healthy living and living will. Recommended prevnar, shingrix, and Tdap. Chronic atrial fibrillation (CMS/HCC) Assessment & Plan: Chronic & stable on meds. Continue current treatment. Will convert from home INR meter to monthly lab draws. Orders: - Protime-INR; Standing Hearing difficulty of both ears Assessment & Plan: Audiology consult. Orders: - Ambulatory referral to Audiology; Future Prediabetes Assessment & Plan: Lower carb diet recommended. Chronic obstructive pulmonary disease, unspecified COPD type (CMS/HCC) Assessment & Plan: Chronic & stable on meds. Continue current treatment. Pure hypercholesterolemia Assessment & Plan: Chronic & stable on meds. Continue current treatment. Mild episode of recurrent major depressive disorder (CMS/HCC) Assessment & Plan: Chronic & stable on meds. Continue current treatment. Need for pneumococcal vaccine - Pneumococcal conjugate vaccine 13-valent IM (Prevnar-13) Education today on importance of normal BMI and impacts of abnormal BMI on morbidity and mortality. Please see patient instructions section for recommendations for appropriate screening and monitoring guidelines. Violeta Casillas DO documented in this encounter Miscellaneous Notes * Assessment & Plan Note - Violeta Casillas DO - 12/18/2018 9:24 PM CDT Associated Problem(s): Chronic atrial fibrillation (HCC) Chronic & stable on meds. Continue current treatment. Will convert from home INR meter to monthly lab draws. * Assessment & Plan Note - Violeta Casillas DO - 12/18/2018 9:24 PM CDT Associated Problem(s): Chronic obstructive pulmonary disease (HCC) Chronic & stable on meds. Continue current treatment. * Assessment & Plan Note - Violeta Casillas DO - 12/18/2018 9:24 PM CDT Associated Problem(s): Hearing difficulty of both ears Audiology consult. * Assessment & Plan Note - Violeta Casillas DO - 12/18/2018 9:23 PM CDT Associated Problem(s): Recurrent major depressive disorder (HCC) Chronic & stable on meds. Continue current treatment. * Assessment & Plan Note - Violeta Casillas DO - 12/18/2018 9:23 PM CDT Associated Problem(s): Prediabetes Lower carb diet recommended. * Assessment & Plan Note - Violeta Casillas DO - 12/18/2018 9:23 PM CDT Associated Problem(s): Pure hypercholesterolemia Chronic & stable on meds. Continue current treatment. documented in this encounter Plan of Treatment Not on file documented as of this encounter Results * Lipid panel (07/29/2019 8:20 AM SPECIAL WARFARE COMBATANT CREWMAN) [facility] Cholesterol 123 30 - 199 mg/dL [facility] Comment: Interpretive Data Ages < or [...] revised on 2018. Triglycerides 83 <=149 mg/dL [facility] Comment: Interpretive Data Ages < or [...] revised on 2018. HDL 50 >=40 mg/dL [facility] Comment: Interpretive Data Ages < or [...] on 2018. LDL, calculated 56 <=129 mg/dL [facility] Comment: Interpretive Data Ages < or [...] revised on 2018. Non-HDL Cholesterol 73 mg/dL [facility] Comment: Interpretive Data Ages < or [...] last revised on 2018. Chol/HDL ratio 2 [facility] Blood specimen (specimen) 07/29/2019 8:20 AM SPECIAL WARFARE COMBATANT CREWMAN 07/29/2019 10:18 AM SPECIAL WARFARE COMBATANT CREWMAN us Violeta Casillas DO LAB BLOOD ORDERABLES Fin al Result [facility] [address] [facility] Department [place] [address] documented in this encounter Visit Diagnoses Diagnosis Well adult exam- Primary Routine general medical examination at a health care facility Chronic atrial fibrillation (HCC) Atrial fibrillation Hearing difficulty of both ears Prediabetes Other abnormal glucose Chronic obstructive pulmonary disease, unspecified COPD type (HCC) Pure hypercholesterolemia Mild episode of recurrent major depressive disorder (HCC) Need for pneumococcal vaccine Need for prophylactic vaccination against streptococcus pneumoniae (pneumococcus) documented in this encounter Orders Immunization/Injection Count Last Ordered Date First Ordered Date PNEUMOCOCCAL CONJUGATE VACCI NE 13-VALENT IM 1 12/18/2018 documented in this encounter Care Teams Citrus Picker Relationship Specialty Start Date End Date Violeta Casillas DO PCP - General 09/29/16 09/15/21 documented as of this encounter
--- OUTSIDE RECORDS SUMMARY | 2024-07-09 02:20 | XMS_ITS | Encounter Summary ---
Author Organization [facility] Facility Care Team Providers Care Defensive Driving Instructor Name Role Phone Violeta Casillas DO Primary Care Provider + Encounter Details Date Type Department Care Team (Latest Contact Info) Description 01/17/2019 Travel Social History Tobacco Use Types Packs/Day Years Used Date Smoking Tobacco: Former Smokeless Tobacco: Former Alcohol Use Standard Drinks/Week Comments Yes 0 (1 standard drink = 0.6 oz pur e alcohol) Sex and Gender Information Value Date Recorded Sex Assigned at Not on file Legal Sex Male 3:40 AM CREDENTIALING ANALYST Gender Identity Not on file Sexual Orientation Not on file documented as of this encounter Plan of Treatment Not on file documented as of this encounter Visit Diagnoses Not on filedocumented in this encounter Care Teams Defensive Driving Instructor Relationship Specialty Start Date End Date Violeta Casillas DO PCP - General 09/29/16 09/15/21 documented as of this encounter
--- OUTSIDE RECORDS SUMMARY | 2024-07-09 02:20 | XMS_ITS | Encounter Summary ---
Author Organization [facility] Facility Care Team Providers Care Clinical Trial Head Name Role Phone Violeta Casillas DO Primary Care Provider + Encounter Details Date Type Department Care Team (Latest Contact Info) Description 04/03/2019 Travel Social History Tobacco Use Types Packs/Day Years Used Date Smoking Tobacco: Former Smokeless Tobacco: Former Alcohol Use Standard Drinks/Week Comments Yes 0 (1 standard drink = 0.6 oz pur e alcohol) PHQ-2 Answer Date Recorded PHQ-2 Score 0 02/22/2019 Sex and Gender Information Value Date Recorded Sex Assigned at Not on file Legal Sex Male 3:40 AM PASSENGER TIRE BUILDER Gender Identity Not on file Sexual Orientation Not on file documented as of this encounter Plan of Treatment Not on file documented as of this encounter Visit Diagnoses Not on filedocumented in this encounter Care Teams Clinical Trial Head Relationship Specialty Start Date End Date Violeta Casillas DO PCP - General 09/29/16 09/15/21 documented as of this encounter
--- OUTSIDE RECORDS SUMMARY | 2024-07-09 02:20 | XMS_ITS | Encounter Summary ---
Author Organization [facility] Facility Care Team Providers Care Dry Roaster Name Role Phone Violeta Casillas DO Primary Care Provider + Encounter Details Date Type Department Care Team (Latest Contact Info) Description 03/04/2019 Travel Social History Tobacco Use Types Packs/Day Years Used Date Smoking Tobacco: Former Smokeless Tobacco: Former Alcohol Use Standard Drinks/Week Comments Yes 0 (1 standard drink = 0.6 oz pur e alcohol) PHQ-2 Answer Date Recorded PHQ-2 Score 0 02/22/2019 Sex and Gender Information Value Date Recorded Sex Assigned at Not on file Legal Sex Male 3:40 AM PRODUCTION POSTING CLERK Gender Identity Not on file Sexual Orientation Not on file documented as of this encounter Plan of Treatment Not on file documented as of this encounter Visit Diagnoses Not on filedocumented in this encounter Care Teams Dry Roaster Relationship Specialty Start Date End Date Violeta Casillas DO PCP - General 09/29/16 09/15/21 documented as of this encounter
--- OUTSIDE RECORDS SUMMARY | 2024-07-09 02:20 | XMS_ITS | Encounter Summary ---
Author Organization [facility] Medical Group Address [address] [facility] [address] [place] [address] Care Team Providers Care Heating And Cooling Systems Engineer Name Role Phone Violeta Casillas DO Primary Care Provider + Reason for Visit * Reason Onset Date Comments Coagulation Disorder 01/24/2019 Encounter Details Date Type Department Care Team (Late st Contact Info) Description 01/24/2019 Telephone [facility] [address] [place] [id number] Ruth Hankins LPN Coagulation Disorder Social History Tobacco Use Types Packs/Day Years Used Date Smoking Tobacco: Former Smokeless Tobacco: Former Alcohol Use Standard Drinks/Week Comments Yes 0 (1 standard drink = 0.6 oz pur e alcohol) Sex and Gender Information Value Date Recorded Sex Assigned at Not on file Legal Sex Male 3:40 AM HYDRAULIC REPAIRER Gender Identity Not on file Sexual Orientation Not on file documented as of this encounter Miscellaneous Notes * Telephone Encounter - Ruth Farmer LPN - 01/24/2019 2:36 PM CDT Spoke to patient's regarding INR results 1.8-patient to alternate between 7 and 8 mg dosing and repeat testing in [address] Casillas. verbalized understanding. documented in this encounter Plan of Treatment Not on file documented as of this encounter Visit Diagnoses Not on filedocumented in this encounter Care Teams Heating And Cooling Systems Engineer Relationship Specialty Start Date End Date Violeta Casillas DO PCP - General 09/29/16 09/15/21 documented as of this encounter
--- OUTSIDE RECORDS SUMMARY | 2024-07-09 02:20 | XMS_ITS | Encounter Summary ---
Author Organization [facility] Medical Group Address [address] [facility] [address] [place] [address] Care Team Providers Care Insurance Instructor Name Role Phone Violeta Casillas DO Primary Care Provider + Encounter Details Date Type Department Care Team ([facility] st Contact Info) Description 06/11/2018 Orders Only [facility] [address] [place] [address] Scanning, Provider Social History Tobacco Use Types Packs/Day Years Used Date Smoking Tobacco: Former Smokeless Tobacco: Former Alcohol Use Standard Drinks/Week Comments Yes 0 (1 standard drink = 0.6 oz pur e alcohol) Sex and Gender Information Value Date Recorded Sex Assigned at Not on file Legal Sex Male 3:40 AM LIFE INSURANCE SALESPERSON Gender Identity Not on file Sexual Orientation Not on file documented as of this encounter Plan of Treatment Not on file documented as of this encounter Procedures Procedure Name Priority Date/Time Associated Diagnosis Comments SCAN - LABS 06/11/2018 documented in this encounter Results * SCAN - LABS (06/11/2018) us Provider Scanning Final Result documented in this encounter Visit Diagnoses Not on filedocumented in this encounter Care Teams Insurance Instructor Relationship Specialty Start Date End Date Violeta Casillas DO PCP - General 09/29/16 09/15/21 documented as of this encounter
--- OUTSIDE RECORDS SUMMARY | 2024-07-09 02:20 | XMS_ITS | Encounter Summary ---
Author Organization [facility] Medical Group Address [address] [address] Care Team Providers Care Forestry Fire Aid Name Role Phone Violeta Casillas DO Primary Care Provider + Encounter Details Date Type Department Care Team (Late st Contact Info) Description 01/17/2019 Orders Only [facility] [address] [place] [address] Violeta Casillas DO [address] [place] [address] Atrial fibrillation, unspecified type (CMS/HCC) (Primary Dx) Social History Tobacco Use Types Packs/Day Years Used Date Smoking Tobacco: Former Smokeless Tobacco: Former Alcohol Use Standard Drinks/Week Comments Yes 0 (1 standard drink = 0.6 oz pur e alcohol) Sex and Gender Information Value Date Recorded Sex Assigned at Not on file Legal 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
--- OUTSIDE RECORDS SUMMARY | 2024-07-09 02:20 | XMS_ITS | Encounter Summary ---
Author Organization [facility] Medical Group Address [address] [facility] [address] [place] [address] Care Team Providers Care Silver Cleaner Name Role Phone Violeta Casillas DO Primary Care Provider + Encounter Details Date Type Department Care Team (Late st Contact Info) Description 04/16/2019 8:45 AM CDT Lab Medical [facility] [address] [facility] Atrial fibrillation, unspecified type (CMS/HCC) Social History Tobacco Use Types Packs/Day Years Used Date Smoking Tobacco: Former Smokeless Tobacco: Former Alcohol Use Standard Drinks/Week Comments Yes 0 (1 standard drink = 0.6 oz pur e alcohol) PHQ-2 Answer Date Recorded PHQ-2 Score 0 02/22/2019 Sex and Gender Information Value Date Recorded Sex Assigned at Not on file 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 Gender Identity Not on file Sexual Orientation Not on file documented as of this encounter Plan of Treatment Not on file documented as of this encounter Procedures Procedure Name Priority Date/Time Associated Diagnosis Comments POCT INR Routine 04/16/2019 8:40 AM CDT Atrial fibrillation, unspecified type (CMS/HCC) documented in this encounter Results * POCT INR (04/16/2019 8:40 AM CDT) INR, POC 1.9 Comment:called and faxed Blood specimen (specimen) (Blood, Venous) 04/16/2019 8:40 AM CDT Violeta Casillas DO POINT OF CARE TEST ORDER ANDREZ Final Result documented in this encounter Visit Diagnoses Diagnosis Atrial fibrillation, unspecified type (HCC) documented in this encounter Care Teams Silver Cleaner Relationship Specialty Start Date End Date Violeta Casillas DO PCP - General 09/29/16 09/15/21 documented as of this encounter
--- OUTSIDE RECORDS SUMMARY | 2024-07-09 02:20 | XMS_ITS | Encounter Summary ---
Author Organization [facility] Medical Group Address [address] [facility] [address] [place] [address] Care Team Providers Care Corporate Staff Accountant Name Role Phone Violeta Casillas DO Primary Care Provider + Reason for Visit * Reason Comments Follow-up labs Encounter Details Date Type Department Care Team (Latest Contact Info) Description 06/18/2018 2:00 PM HUMAN RESOURCES SUPPORT SPECIALIST Office Visit [facility] [address] [place] [address] Violeta Casillas DO [address] [place] [address] Chronic obstructive pulmonary disease with acute exacerbation (CMS/HCC) (Primary Dx); Chronic atrial fibrillation (CMS/HCC); Mild episode of recurrent major depressive disorder (CMS/HCC); Pure hypercholesterolemia Social History Tobacco Use Types Packs/Day Years Used Date Smoking Tobacco: Former Smokeless Tobacco: Former Alcohol Use Standard Drinks/Week Comments Yes 0 (1 standard drink = 0.6 oz pur e alcohol) Sex and Gender Information Value Date Recorded Sex Assigned at Not on file Legal Sex Male 3:40 AM HUMAN RESOURCES SUPPORT SPECIALIST Gender Identity Not on file Sexual Orientation Not on file documented as of this encounter Last Filed Vital Signs Vital Sign Reading Time Taken Comments Blood Pressure 138/68 06/18/2018 1:45 PM HUMAN RESOURCES SUPPORT SPECIALIST Pulse 55 06/18/2018 1:45 PM HUMAN RESOURCES SUPPORT SPECIALIST Temperature 36.2 ??C (97.2 ??F) 06/18/2018 1:45 PM CS T Respiratory Rate 16 06/18/2018 1:45 PM HUMAN RESOURCES SUPPORT SPECIALIST Oxygen Saturation 97% 06/18/2018 1:45 PM HUMAN RESOURCES SUPPORT SPECIALIST Inhaled Oxygen Concentration - - Weight 70.5 kg (155 lb 6.4 oz) 06/18/2018 1:45 P M HUMAN RESOURCES SUPPORT SPECIALIST Height 185.4 cm (6' 0.99 ) 06/18/2018 1:45 PM CS T Body Mass Index 20.51 06/18/2018 1:45 PM HUMAN RESOURCES SUPPORT SPECIALIST documented in this encounter Patient Instructions * Patient Instructions* Violeta Casillas DO - 06/18/2018 2:00 PM HUMAN RESOURCES SUPPORT SPECIALIST Prevnar 13, which is one of the 2 pneumonia vaccines. Please get this at local pharmacy and we can give you the second one later on. I would also consider getting the Tdap vaccine for tetanus and whooping cough. N RESOURCES SUPPORT SPECIALIST N RESOURCES SUPPORT SPECIALIST documented in this encounter Progress Notes * Violeta Casillas DO - 06/18/2018 2:00 PM CST Subjective/Objective Patient ID: Noé Davila is a 82 y.o. male. Chief Complaint Follow-up (labs) Vitals: 06/18/18 1345 BP: 138/68 Pulse: 55 Resp: 16 Temp: 36.2 ??C (97.2 ??F) TempSrc: Tympanic SpO2: 97% Weight: 70.5 kg (155 lb 6.4 oz) Height: 185.4 cm (6' 0.99 ) Body mass index is 20.51 kg/m??. Noé Davila is here for lab review and follow up on chronic problems, at least one of which is afib. he is tolerating all prescribed medications well without any reported side effects or intolerances. I have reviewed medical, social, and family histories in depth with patient and/or their medical center representative. Review of Systems Constitutional: Negative for fatigue and fever. Respiratory: Negative for cough and shortness of breath. Cardiovascular: Negative for chest pain and palpitations. Gastrointestinal: Negative for diarrhea, nausea and vomiting. Physical Exam Constitutional: He is oriented to person, place, and time. He appears well- developed and well-nourished. No distress. HENT: Head: Normocephalic and atraumatic. Eyes: Conjunctivae are normal. Cardiovascular: Regular rhythm and normal heart sounds. Bradycardia present. Exam reveals no gallopand no friction rub. No murmur heard. Pulmonary/Chest: [...] is normal. Nursing note and vitals reviewed. Assessment/Plan Diagnoses and all orders for this visit: Chronic obstructive pulmonary disease with acute exacerbation (CMS/HCC) (Primary) Assessment & Plan: Stable without regular use of inhalers. Chronic atrial fibrillation (CMS/HCC) Assessment & Plan: Chronic & stable on meds. Continue current treatment. Mild episode of recurrent major depressive disorder (CMS/HCC) Assessment & Plan: Chronic & stable on meds. Continue current treatment. Pure hypercholesterolemia Assessment & Plan: Chronic & stable on meds. Continue current treatment. Orders: - Comprehensive metabolic panel; Future - Cholesterol, LDL, direct; Future BMI Follow-up includes: education provided. Orders Placed This Encounter ??? Comprehensive metabolic panel Standing Status: Future Standing Expiration Date: 06/18/2019 ??? Cholesterol, LDL, direct Standing Status: Future Standing Expiration Date: 06/18/2019 N RESOURCES SUPPORT SPECIALIST documented in this encounter Miscellaneous Notes * Assessment & Plan Note - Violeta Casillas DO - 06/18/2018 2:20 PM HUMAN RESOURCES SUPPORT SPECIALIST Associated Problem(s): Chronic atrial fibrillation (HCC) Chronic & stable on meds. Continue current treatment. N RESOURCES SUPPORT SPECIALIST * Assessment & Plan Note - Violeta Casillas DO - 06/18/2018 2:20 PM HUMAN RESOURCES SUPPORT SPECIALIST Associated Problem(s): Chronic obstructive pulmonary disease (HCC) Stable without regular use of inhalers. N RESOURCES SUPPORT SPECIALIST * Assessment & Plan Note - Violeta Casillas DO - 06/18/2018 2:20 PM HUMAN RESOURCES SUPPORT SPECIALIST Associated Problem(s): Recurrent major depressive disorder (HCC) Chronic & stable on meds. Continue current treatment. N RESOURCES SUPPORT SPECIALIST * Assessment & Plan Note - Violeta Casillas DO - 06/18/2018 2:20 PM HUMAN RESOURCES SUPPORT SPECIALIST Associated Problem(s): Pure hypercholesterolemia Chronic & stable on meds. Continue current treatment. N RESOURCES SUPPORT SPECIALIST * Addendum Note - Sosa Bro MLT - 06/18/2018 2:00 PM CSTAddended by: SOSA BRO on: 12/13/2018 08:09 AM Modules accepted: Orders * Addendum Note - Sosa Bro MLT - 06/18/2018 2:00 PM CSTAddended by: SOSA BRO on: 12/13/2018 08:09 AM Modules accepted: Orders documented in this encounter Plan of Treatment Not on file documented as of this encounter Procedures Procedure Name Priority Date/Time Associated Diagnosis Comments CHOLESTEROL, LDL, DIRECT Routine 12/13/2018 8:10 AM CDT Pure hypercholesterolemia COMPREHENSIVE METABOLIC PANEL Routine 12/13/2018 8:09 AM CDT Pure hypercholesterolemia documented in this encounter Results * Cholesterol, LDL, direct (12/13/2018 8:10 AM CDT) LDL, direct 87 <100 mg/dL [facility] [place] Comment: Greatly elevated Triglycerides values (>1200 mg/dL) interfere with the dLDL assay. As no Triglycerides testing was ordered, interpret results with caution. Desirable range <100 mg/dL for primary prevention; ?? <70 mg/dL for patients with CHD or diabetic patients with > or = 2 CHD risk factors. Blood specimen (specimen) 12/13/2018 8:10 AM CDT 12/14/2018 4:20 AM CDT Narrative Resulting Agency Comment Performing Organization Information: ?Site ID: ANA ?Name: [facility] ?Address: [id number] [id number] ?Director: Gomez Sánchez D.O., MPH us Violeta Casillas DO LAB BLOOD ORDERABLES Fin al Result [facility] [place] [facility] [place] * (ABNORMAL) Comprehensive metabolic panel (12/13/2018 8:09 AM CDT) Glucose 109(H) 65 - 99 mg/dL [facility] [place] Comment: ? Fasting reference interval For someone without known diabetes, a glucose value between 100 and 125 mg/dL is consistent with prediabetes and should be confirmed with a follow-up test. BUN 18 7 - 25 mg/dL [facility] [place] Creatinine 0.99 0.70 - 1.11 mg/dL [facility] [place] Comment: For patients >49 years of age, the reference limit for Creatinine is approximately 13% higher for people identified as -Citizen Of [place]. eGFR NON-AFR. ETHIOPIAN 70 > OR = 60 mL/min/1 .73m2 [facility] [place] EGFR 81 > OR = 60 mL/min/1 .73m2 [facility] [place] BUN/creat ratio NOT APPLICABLE 6 - 22 (calc) [facility] [place] Sodium 141 135 - 146 mmol/L [facility] [place] Potassium, pl 4.7 3.5 - 5.3 mmol/L [facility] [place] Chloride 105 98 - 110 mmol/L [facility] [place] CO2 27 20 - 32 mmol/L [facility] [place] Calcium 9.5 8.6 - 10.3 mg/dL [facility] [place] Protein, sr 7.0 6.1 - 8.1 g/dL [facility] [place] Albumin 4.3 3.6 - 5.1 g/dL [facility] [place] GLOBULIN 2.7 1.9 - 3.7 g/dL (calc) [facility] [place] Alb/glob ratio 1.6 1.0 - 2.5 (calc) [facility] [place] Bilirubin, total 0.7 0.2 - 1.2 mg/dL [facility] [place] Alk phos 94 40 - 115 U/L [facility] [place] AST 17 10 - 35 U/L [facility] [place] ALT (SGPT) 12 9 - 46 U/L [facility] [place] Blood specimen (specimen) 12/13/2018 8:09 AM CDT 12/14/2018 4:20 AM CDT Narrative Resulting Agency Comment Performing Organization Information: ?Site ID: ANA ?Name: [facility] ?Address: [id number] [place] [address] [place] [id number] ?Director: Gomez Sánchez D.O., MPH us Violeta Casillas DO LAB BLOOD ORDERABLES Fin al Result [facility] [place] documented in this encounter Visit Diagnoses Diagnosis Chronic obstructive pulmonary disease with acute exacerbation (HCC)- Primary Chronic atrial fibrillation (HCC) Atrial fibrillation Mild episode of recurrent major depressive disorder (HCC) Pure hypercholesterolemia documented in this encounter Care Teams Corporate Staff Accountant Relationship Specialty Start Date End Date Violeta Casillas DO PCP - General 09/29/16 09/15/21 documented as of this encounter
--- OUTSIDE RECORDS SUMMARY | 2024-07-09 02:20 | XMS_ITS | Encounter Summary ---
Author Organization [facility] Medical Group Address [address] [facility] [address] [place] [address] Care Team Providers Care Mining Captain Name Role Phone Violeta Casillas DO Primary Care Provider + Encounter Details Date Type Department Care Team (Late st Contact Info) Description 01/24/2019 8:30 AM CDT Lab Medical [address] Atrial fibrillation, unspecified type (CMS/HCC) Social History Tobacco Use Types Packs/Day Years Used Date Smoking Tobacco: Former Smokeless Tobacco: Former Alcohol Use Standard Drinks/Week Comments Yes 0 (1 standard drink = 0.6 oz pur e alcohol) Sex and Gender Information Value Date Recorded Sex Assigned at Not on file Legal 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 Male 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 Gender Identity Not on file Sexual Orientation Not on file documented as of this encounter Plan of Treatment Not on file documented as of this encounter Procedures Procedure Name Priority Date/Time Associated Diagnosis Comments POCT INR Routine 01/24/2019 8:28 AM CDT Atrial fibrillation, unspecified type (CMS/HCC) documented in this encounter Results * POCT INR (01/24/2019 8:28 AM CDT) INR, POC 1.8 Blood specimen (specimen) (Blood, Venous) 01/24/2019 8:28 AM CDT Violeta Casillas DO POINT OF CARE TEST ORDER ANDREZ Final Result documented in this encounter Visit Diagnoses Diagnosis Atrial fibrillation, unspecified type (HCC) documented in this encounter Care Teams Mining Captain Relationship Specialty Start Date End Date Violeta Casillas DO PCP - General 09/29/16 09/15/21 documented as of this encounter
--- OUTSIDE RECORDS SUMMARY | 2024-07-09 02:20 | XMS_ITS | Encounter Summary ---
Author Organization [facility] Medical Group Address [address] [facility] [address] [place] [address] Care Team Providers Care Pumper Head Name Role Phone Violeta Casillas DO Primary Care Provider + Encounter Details Date Type Department Care Team (Late st Contact Info) Description 04/03/2019 8:45 AM CDT Lab Medical [facility] [address] [facility] Atrial fibrillation, unspecified type (CMS/HCC) Social History Tobacco Use Types Packs/Day Years Used Date Smoking Tobacco: Former Smokeless Tobacco: Former Alcohol Use Standard Drinks/Week Comments Yes 0 (1 standard drink = 0.6 oz pur e alcohol) PHQ-2 Answer Date Recorded PHQ-2 Score 0 02/22/2019 Sex and Gender Information Value Date Recorded Sex Assigned at Not on file Legal Sex Male 3:40 AM ROLL PICKER Gender Identity Not on file Sexual Orientation Not on file documented as of this encounter Plan of Treatment Not on file documented as of this encounter Procedures Procedure Name Priority Date/Time Associated Diagnosis Comments POCT INR Routine 04/03/2019 8:50 AM CDT Atrial fibrillation, unspecified type (CMS/HCC) documented in this encounter Results * POCT INR (04/03/2019 8:50 AM CDT) INR, POC 3.3 Blood specimen (specimen) (Blood, Venous) 04/03/2019 8:50 AM CDT Violeta Casillas DO POINT OF CARE TEST ORDER ANDREZ Final Result documented in this encounter Visit Diagnoses Diagnosis Atrial fibrillation, unspecified type (HCC) documented in this encounter Care Teams Pumper Head Relationship Specialty Start Date End Date Violeta Casillas DO PCP - General 09/29/16 09/15/21 documented as of this encounter
--- OUTSIDE RECORDS SUMMARY | 2024-07-09 02:20 | XMS_ITS | Encounter Summary ---
Author Organization [facility] Medical Group Address [address] [address] Care Team Providers Care Branch Service Specialist Name Role Phone Violeta Caisllas DO Primary Care Provider + Encounter Details Date Type Department Care Team (Late st Contact Info) Description 10/23/2018 Telephone Medical [facility] [address] [place] [address] Ruth Hankins LPN Social History Tobacco Use Types Packs/Day Years Used Date Smoking Tobacco: Former Smokeless Tobacco: Former Alcohol Use Standard Drinks/Week Comments Yes 0 (1 standard drink = 0.6 oz pur e alcohol) Sex and Gender Information Value Date Recorded Sex Assigned at Not on file 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 Casillas. Called and spoke to patient's . She is aware. documented in this encounter Plan of Treatment Not on file documented as of this encounter Visit Diagnoses Not on filedocumented in this encounter Care Teams Branch Service Specialist Relationship Specialty Start Date End Date Violeta Casillas DO PCP - General 09/29/16 09/15/21 documented as of this encounter
--- OUTSIDE RECORDS SUMMARY | 2024-07-09 02:20 | XMS_ITS | Encounter Summary ---
Author Organization [facility] Care Team Providers Care Risk And Insurance Manager Name Role Phone Violeta Casillas DO Primary Care Provider + Encounter Details Date Type Department Care Team (Latest Contact Info) Description 01/24/2019 Travel Social History Tobacco Use Types Packs/Day Years Used Date Smoking Tobacco: Former Smokeless Tobacco: Former Alcohol Use Standard Drinks/Week Comments Yes 0 (1 standard drink = 0.6 oz pur e alcohol) Sex and Gender Information Value Date Recorded Sex Assigned at Not on file Legal Sex Male 3:40 AM FUR JOINER Gender Identity Not on file Sexual Orientation Not on file documented as of this encounter Plan of Treatment Not on file documented as of this encounter Visit Diagnoses Not on filedocumented in this encounter Care Teams Risk And Insurance Manager Relationship Specialty Start Date End Date Violeta Casillas DO PCP - General 09/29/16 09/15/21 documented as of this encounter
--- OUTSIDE RECORDS SUMMARY | 2024-07-09 02:20 | XMS_ITS | Encounter Summary ---
Author Organization [facility] Medical Group Address [address] [facility] [address] [place] [address] Care Team Providers Care Pick And Shovel Worker Name Role Phone Violeta Casillas DO Primary Care Provider + Encounter Details Date Type Department Care Team (Late st Contact Info) Description 08/06/2018 Telephone Medical [facility] [address] [place] [address] Violeta Casillas DO [address] [place] [address] Social History Tobacco Use Types Packs/Day Years Used Date Smoking Tobacco: Former Smokeless Tobacco: Former Alcohol Use Standard Drinks/Week Comments Yes 0 (1 standard drink = 0.6 oz pur e alcohol) Sex and Gender Information Value Date Recorded Sex Assigned at Not on file Legal Sex Male 3:40 AM RESIDENT SERVICES DIRECTOR Gender Identity Not on file Sexual Orientation Not on file documented as of this encounter Miscellaneous Notes * Telephone Encounter - Violeta Casillas DO - 08/06/2018 2:41 PM RESIDENT SERVICES DIRECTOR Take an extra 2mg tonight then resume normal dosing. Recheck in 1 week. DENT SERVICES DIRECTOR * Telephone Encounter - Nguyễn Rueda - 08/06/2018 2:25 PM CST Naye with [employer] called and he has an out of range inr of 1.6 that was checked today. DENT SERVICES DIRECTOR documented in this encounter Plan of Treatment Not on file documented as of this encounter Visit Diagnoses Not on filedocumented in this encounter Care Teams Pick And Shovel Worker Relationship Specialty Start Date End Date Violeta Casillas DO PCP - General 09/29/16 09/15/21 documented as of this encounter
--- OUTSIDE RECORDS SUMMARY | 2024-07-09 02:20 | XMS_ITS | Encounter Summary ---
Author Organization [facility] Medical Group Address [address] [address] Care Team Providers Care Automation Application Engineer Name Role Phone Violeta Casillas DO Primary Care Provider + Encounter Details Date Type Department Care Team (Late st Contact Info) Description 03/04/2019 9:00 AM CDT Lab Medical [facility] [address] [facility] Atrial fibrillation, unspecified type (CMS/HCC) Social History Tobacco Use Types Packs/Day Years Used Date Smoking Tobacco: Former Smokeless Tobacco: Former Alcohol Use Standard Drinks/Week Comments Yes 0 (1 standard drink = 0.6 oz pur e alcohol) PHQ-2 Answer Date Recorded PHQ-2 Score 0 02/22/2019 Sex and Gender Information Value Date Recorded Sex Assigned at Not on file Legal Sex Male 3:40 AM CRATE REPAIRER Gender Identity Not on file Sexual Orientation Not on file documented as of this encounter Plan of Treatment Not on file documented as of this encounter Procedures Procedure Name Priority Date/Time Associated Diagnosis Comments POCT INR Routine 03/04/2019 9:05 AM CDT Atrial fibrillation, unspecified type (CMS/HCC) documented in this encounter Results * POCT INR (03/04/2019 9:05 AM CDT) INR, POC 2.5 Blood specimen (specimen) (Blood, Venous) 03/04/2019 9:05 AM CDT Violeta Casillas DO POINT OF CARE TEST ORDER ANDREZ Final Result documented in this encounter Visit Diagnoses Diagnosis Atrial fibrillation, unspecified type (HCC) documented in this encounter Care Teams Automation Application Engineer Relationship Specialty Start Date End Date Violeta Casillas DO PCP - General 09/29/16 09/15/21 documented as of this encounter
--- OUTSIDE RECORDS SUMMARY | 2024-07-09 02:20 | XMS_ITS | Encounter Summary ---
Author Organization [facility] Medical [facility] Address [address] [address] Care Team Providers Care Customer Operations Manager Name Role Phone Violeta Casillas DO Primary Care Provider + Reason for Visit * Reason Onset Date Comments Anticoagulation 04/03/2019 Encounter Details Date Type Department Care Team (Late st Contact Info) Description 04/03/2019 Telephone Medical [facility] [address] [place] [address] Ruth Hankins LPN Anticoagulation Social History Tobacco Use Types Packs/Day Years Used Date Smoking Tobacco: Former Smokeless Tobacco: Former Alcohol Use Standard Drinks/Week Comments Yes 0 (1 standard drink = 0.6 oz pur e alcohol) PHQ-2 Answer Date Recorded PHQ-2 Score 0 02/22/2019 Sex and Gender Information Value Date Recorded Sex Assigned at Not on file Legal Sex Male 3:40 AM BENCH PRESS OPERATOR Gender Identity Not on file Sexual Orientation Not on file documented as of this encounter Miscellaneous Notes * Telephone Encounter - Ruth Farmer LPN - 04/03/2019 1:24 PM CDT Patient INR 3.[address] date[address] Per Dr. Casillas, no changes in medication dosage of alternating 7 and 8mg. Recheck in one month Patient aware. documented in this encounter Plan of Treatment Not on file documented as of this encounter Visit Diagnoses Not on filedocumented in this encounter Care Teams Customer Operations Manager Relationship Specialty Start Date End Date Violeta Casillas DO PCP - General 09/29/16 09/15/21 documented as of this encounter
--- OUTSIDE RECORDS SUMMARY | 2024-07-09 02:20 | XMS_ITS | Encounter Summary ---
Author Organization [facility] Address [address] [facility] [address] [place] [address] Care Team Providers Care Candy Supervisor Name Role Phone Violeta Casillas DO Primary Care Provider + Encounter Details Date Type Department Care Team (Late st Contact Info) Description 05/13/2018 Telephone Medical [facility] [address] [place] [address] Ruth Hankins LPN Social History Tobacco Use Types Packs/Day Years Used Date Smoking Tobacco: Former Smokeless Tobacco: Former Alcohol Use Standard Drinks/Week Comments Yes 0 (1 standard drink = 0.6 oz pur e alcohol) Sex and Gender Information Value Date Recorded Sex Assigned at Not on file Legal Sex Male 3:40 AM PLYWOOD LAYUP LINE CORE LAYER Gender Identity Not on file Sexual Orientation Not on file documented as of this encounter Miscellaneous Notes * Telephone Encounter - Ruth Farmer LPN - 05/13/2018 1:27 PM CST Received INR for patient of 1.9, patient was to continue current dose, patient misunderstood last telephone conversation and is currently taking 7mg daily. He upped dosage to 8 mg for one day insteadof Bere ENGEL spoke with patient and relayed message to me. OOD LAYUP LINE CORE LAYER documented in this encounter Plan of Treatment Not on file documented as of this encounter Visit Diagnoses Not on filedocumented in this encounter Care Teams Candy Supervisor Relationship Specialty Start Date End Date Violeta Casillas DO PCP - General 09/29/16 09/15/21 documented as of this encounter
--- OUTSIDE RECORDS SUMMARY | 2024-07-09 02:20 | XMS_ITS | Encounter Summary ---
Author Organization [facility] Medical [facility] Address [address] [facility] [address] [place] [address] Care Team Providers Care Manager Public Name Role Phone Violeta Casillas DO Primary Care Provider + Encounter Details Date Type Department Care Team (Late st Contact Info) Description 06/11/2018 8:15 AM BUNDLE COLLECTOR [facility] [address] [facility] Social History Tobacco Use Types Packs/Day Years Used Date Smoking Tobacco: Former Smokeless Tobacco: Former Alcohol Use Standard Drinks/Week Comments Yes 0 (1 standard drink = 0.6 oz pur e alcohol) Sex and Gender Information Value Date Recorded Sex Assigned at Not on file Legal Sex Male 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
--- OUTSIDE RECORDS SUMMARY | 2024-07-09 02:20 | XMS_ITS | Encounter Summary ---
Author Organization [facility] Medical [facility] Address [address] [address] Care Team Providers Care Airfield Operations Specialist Name Role Phone Violeta Casillas DO Primary Care Provider + Encounter Details Date Type Department Care Team (Late st Contact Info) Description 06/12/2018 Telephone Medical [facility] [address] [place] [address] Ruth Hankins LPN Social History Tobacco Use Types Packs/Day Years Used Date Smoking Tobacco: Former Smokeless Tobacco: Former Alcohol Use Standard Drinks/Week Comments Yes 0 (1 standard drink = 0.6 oz pur e alcohol) Sex and Gender Information Value Date Recorded Sex Assigned at Not on file 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
--- OUTSIDE RECORDS SUMMARY | 2024-07-09 02:20 | XMS_ITS | Encounter Summary ---
Author Organization [facility] Medical [facility] Address [address] [facility] [address] [place] [address] Care Team Providers Care Hop Weigher Name Role Phone Violeta Casillas DO Primary Care Provider + Encounter Details Date Type Department Care Team (Late st Contact Info) Description 02/03/2019 Telephone Medical [facility] [address] [place] [address] Violeta Casillas DO [address] [place] [address] Social History Tobacco Use Types Packs/Day Years Used Date Smoking Tobacco: Former Smokeless Tobacco: Former Alcohol Use Standard Drinks/Week Comments Yes 0 (1 standard drink = 0.6 oz pur e alcohol) Sex and Gender Information Value Date Recorded Sex Assigned at Not on file 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 Also let her know about INR of 2.5. Patient to continue alternating between 7-8 mg coumadin and recheck INR in one month * Telephone Encounter - Violeta Casillas DO - 02/03/2019 12:55 PM CDT I think that patient should take some Mucinex DM., sounds like since he and his are having trouble at the same time they might have caught a viral bug or had a big allergen exposure. An office visit might be a good idea for him to to hear if he is having wheezing or just cough. I think it would be best to start off at least with some Mucinex DM. That should be okay to take with his other medications. * Telephone Encounter - Kendra Dickerson - 02/03/2019 8:17 AM CDT Pt called and he is having a cough and wanted to know if there was something you could call in for him documented in this encounter Plan of Treatment Not on file documented as of this encounter Visit Diagnoses Not on filedocumented in this encounter Care Teams Hop Weigher Relationship Specialty Start Date End Date Violeta Casillas DO PCP - General 09/29/16 09/15/21 documented as of this encounter
--- OUTSIDE RECORDS SUMMARY | 2024-07-09 02:20 | XMS_ITS | Encounter Summary ---
Author Organization [facility] Healthcare Address [address] [place] [address] Care Team Providers Care Contingents Supervisor Name Role Phone Violeta Casillas DO Primary Care Provider + Reason for Referral * Diagnostic Imaging (Routine) - Closed Specialty Diagnoses / Procedures Referred By Cynac t Referred To Contact Diagnoses Shortness of breath Procedures XR Chest Pa Lateral 2 Views Brandy Alas NP Phone: tel: fax: [address] [phone] Referral ID Status Reason Start Date Expiration Date Visits Re quested Visits Authorized [id number] Closed 02/04/2019 08/15/2020 1 1 Reason for Visit * Diagnostic Imaging (Routine) - Closed Specialty Diagnoses / Procedures Referred By Contsylvester manzanares Referred To Contact Diagnoses Shortness of breath Procedures XR Chest Pa Lateral 2 Views Brandy Alas NP Phone: tel: fax: [address] [phone] Referral ID Status Reason Start Date Expiration Date Visits Re quested Visits Authorized [id number] Closed 02/04/2019 08/15/2020 1 1 Encounter Details Date Type Department Care Team (Latest Contact Info) Description 02/04/2019 10:08 AM CDT - 02/04/2019 11:59 PM CDT Hospital Encounter [facility] Services [address] [place] [address], [place] [phone] Violeta Casillas, [address] [place] [address] Brandy Alas, DYLAN [address] [place] [address] Shortness of breath Discharge Disposition: Discharge to home or self care Social History Tobacco Use Types Packs/Day Years Used Date Smoking Tobacco: Former Smokeless Tobacco: Former Alcohol Use Standard Drinks/Week Comments Yes 0 (1 standard drink = 0.6 oz pur e alcohol) Sex and Gender Information Value Date Recorded Sex Assigned at Not on file 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 8 09/18/19 21 warfarin (COUMADIN) 1 mg tablet TAKE 2 TABLETS BY MOUTH ONCE DAILY DIRECTED BASED ON ROUTINE INR MEASUREMENT. CURRENTLY ON 7MG DAILY 90 tablet 2 9 03/19/20 19 warfarin (COUMADIN) 5 mg tablet TAKE ONE TABLET BY MOUTH AT BEDTIME *TAKE WITH TWO 1 MG TABLETS TO EQUAL 7 MG AT BEDTIME* 90 tablet 2 8 06/04/20 19 documented as of this encounter Discharge Disposition Disposition Code Departure Means Destination Discharge to home or self care documented in this encounter Plan of Treatment Not on file documented as of this encounter Procedures Procedure Name Priority Date/Time Associated Diagnosis Comments XR CHEST PA LATERAL 2 VIEWS Schedule Routine, Read Routine (OP Routine) 02/04/2019 10:15 AM CDT Shortness of breath documented in this encounter Results * XR Chest Pa Lateral 2 Views (02/04/2019 10:15 AM CDT) Anatomical Region Laterality Modality Body, Chest N/A Computed Radiogr aphy 02/04/2019 11:3 3 AM CDT Impressions 02/04/2019 11:33 AM CDT No acute disease. Electronically signed by: Yonathan Gonsales M.D. Narrative 02/04/2019 11:33 AM CDT CHEST TWO VIEWS COMPARISON: ??03/12/2018. HISTORY: ??Shortness of breath FINDINGS: ??Is a calcified granuloma in the left lung base. ??There is no pulmonary infiltration, pleural effusion, pneumothorax or cardiomegaly. ??Spondylosis is stable since the previous study. Procedure Note Yonathan Gonsales IV, MD - 02/04/2019 CHEST TWO VIEWS COMPARISON: 03/12/2018. HISTORY: Shortness of breath FINDINGS: Is a calcified granuloma in the left lung base. There is no pulmonary infiltration, pleural effusion, pneumothorax or cardiomegaly. 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 IMPRESSION: No acute disease. Electronically signed by: Yonathan Gonsales M.D. Brandy Alas NP IMG XR PROCEDURES Final Result documented in this encounter Visit Diagnoses Diagnosis Shortness of breath documented in this encounter Care Teams Contingents Supervisor Relationship Specialty Start Date End Date Violeta Casillas DO PCP - General 09/29/16 09/15/21 documented as of this encounter
--- OUTSIDE RECORDS SUMMARY | 2024-07-09 02:20 | XMS_ITS | Encounter Summary ---
Author Organization [facility] Medical Group Address [address] [facility] [address] [place] [address] Care Team Providers Care Sheet Combining Operator Name Role Phone Violeta Casillas DO Primary Care Provider + Reason for Referral * Diagnostic Imaging (Routine) - Closed Specialty Diagnoses / Procedures Referred By Ignacia t Referred To Contact Diagnoses Shortness of breath Procedures XR Chest Pa Lateral 2 Views Estephania Alas NP Phone: tel: fax: [address] [phone] Referral ID Status Reason Start Date Expiration Date Visits Re quested Visits Authorized [id number] Closed 02/04/2019 08/15/2020 1 1 Reason for Visit * Reason Comments Cough Encounter Details Date Type Department Care Team (Late st Contact Info) Description 02/04/2019 10:30 AM CDT [facility] [address] [place] [phone] Estephania Alas NP [address] [place] [address] Shortness of breath (Primary Dx); Cough Social History Tobacco Use Types Packs/Day Years Used Date Smoking Tobacco: Former Smokeless Tobacco: Former Alcohol Use Standard Drinks/Week Comments Yes 0 (1 standard drink = 0.6 oz pur e alcohol) Sex and Gender Information Value Date Recorded Sex Assigned at Not on file 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 Gender Identity Not on file Sexual Orientation Not on file documented as of this encounter Last Filed Vital Signs Vital Sign Reading Time Taken Comments Blood Pressure 134/70 02/04/2019 9:20 AM CDT Pulse 65 02/04/2019 9:20 AM CDT Temperature 36.3 ??C (97.4 ??F) 02/04/2019 9:20 AM CD T Respiratory Rate 18 02/04/2019 9:20 AM CDT Oxygen Saturation 92% 02/04/2019 9:20 AM CDT Inhaled Oxygen Concentration - - Weight 70.8 kg (156 lb) 02/04/2019 9:20 AM CDT Height 185.4 cm (6' 0.99 ) 02/04/2019 9:20 AM CD T Body Mass Index 20.59 02/04/2019 9:20 AM CDT documented in this encounter Ordered Prescriptions Prescription Sig Dispense Quantity Refills Last Filled Start Date End Date predniSONE (DELTASONE) 20 mg tablet Take 2 tablets (40 mg) by mouth daily for 5 days 10 tablet 02/04/2019 9 documented in this encounter Progress Notes * Estephania Alas, DYLAN - 02/04/2019 10:30 AM CDT Subjective/Objective Patient ID: Noé Davila is a 83 y.o. male. Chief Complaint Cough Vitals: 02/04/19 0920 BP: 134/70 BP Location: Left arm Patient Position: Sitting Pulse: 65 Resp: 18 Temp: 36.3 ??C (97.4 ??F) TempSrc: Tympanic SpO2: 92% Weight: 70.8 kg (156 lb) Height: 185.4 cm (6' 0.99 ) Body mass index is 20.59 kg/m??. Presents to clinic today with complaints of cough. experiencing similar symptoms. Denies fever, chills, night sweats, abnormal weight loss. Cough This is a new problem. The current episode started 1 to 4 weeks ago. The problem has been graduallyworsening. The cough is productive of sputum. Associated symptoms include nasal congestion and postnasal drip. Pertinent negatives include no chest pain, ear pain, fever, myalgias, rash, rhinorrhea, sore throat or shortness of breath. The symptoms are aggravated by exercise. He has tried rest for the symptoms. The treatment provided no relief. There is no history of environmental allergies. I have reviewed medical, surgical, and family history. Review of Systems Constitutional: Positive for fatigue. Negative for fever. HENT: Positive for congestion and postnasal drip. Negative for ear pain, rhinorrhea and sore throat. Eyes: Negative for visual disturbance. Respiratory: Positive for cough. Negative for shortness of breath. Cardiovascular: Negative for chest pain. Gastrointestinal: Negative for abdominal pain. Musculoskeletal: Negative for myalgias. Skin: Negative for pallor and rash. Allergic/Immunologic: Negative for environmental allergies. Neurological: Negative for dizziness. Hematological: Negative for adenopathy. Psychiatric/Behavioral: Negative for confusion. Physical Exam Constitutional: He is oriented to person, place, and time. He appears well-developed. HENT: Head: Normocephalic and atraumatic. Right Ear: Tympanic membrane and ear canal normal. Left Ear: Tympanic membrane and ear canal normal. Nose: Rhinorrhea present. Mouth/Throat: Oropharynx is clear and moist. Eyes: Pupils are equal, round, and reactive to light. Conjunctivae and lids are normal. Neck: Normal range of motion. Cardiovascular: Normal rate and regular rhythm. Pulmonary/Chest: Effort normal and breath sounds normal. Abdominal: Normal appearance. Musculoskeletal: Normal range of motion. Neurological: He is alert and oriented to person, place, and time. Skin: Skin is warm. Capillary refill takes less than 2 seconds. Psychiatric: He has a normal mood and affect. His behavior is normal. Nursing note and vitals reviewed. Health Maintenance Due Topic Date Due ??? DTaP/Tdap/Td Vaccine (1 - Tdap) 11/22/1946 ??? Zoster Vaccines 11/22/1985 Current Outpatient Medications on File Prior to Visit Medication Sig Dispense Refill ??? amitriptyline (ELAVIL) [...] MG AT BEDTIME* 90 tablet 2 ??? [DISCONTINUED] acetaminophen ER (TYLENOL) 650 mg 8 hr tablet Take 1-2 tablets (650-1,300 mg total) by mouth every 8 (eight) hours as needed for pain, fever or headaches. (Patient not taking: Reported on 12/18/2018) 30 tablet ??? [DISCONTINUED] albuterol HFA (PROAIR HFA) 90 mcg/actuation inhaler Inhale 2 puffs every 4 (four) hours as needed for wheezing or shortness of breath. (Patient not taking: Reported on 03/29/2018 ) 8.5 g 0 No current facility-administered medications on file prior to visit. Assessment/Plan Diagnoses and all orders for this visit: Shortness of breath (Primary) - XR Chest Pa Lateral 2 Views; Future Cough Assessment & Plan: Recommend supportive care including saline or flonase nasal spray. Acetaminophen or Ibuprofen as needed for discomfort. May use honey +/- tea for sore throat and/or cough. Avoid smoke exposure. Call or RTC for new or worsening symptoms. BMI Follow-up includes: education provided. Orders Placed This Encounter ??? XR Chest Pa Lateral 2 Views Standing Status: Future Number of Occurrences: 1 Standing Expiration Date: 02/05/2020 Order Specific Question: Where should this order be performed? Answer: [facility] [[id number]] documented in this encounter Miscellaneous Notes * Addendum Note - Estephania Alas NP - 02/04/2019 10:30 AM CDTAddended by: ESTEPHANIA ALAS on: 02/04/2019 03:12 PM Modules accepted: Orders * Assessment & Plan Note - Estephania Alas NP - 02/04/2019 10:07 AM CDT Associated Problem(s): Cough (Deleted) Recommend supportive care including saline or flonase nasal spray. Acetaminophen or Ibuprofen as needed for discomfort. May use honey +/- tea for sore throat and/or cough. Avoid smoke exposure. Call or RTC for new or worsening symptoms. documented in this encounter Plan of Treatment Not on file documented as of this encounter Results * XR Chest Pa [...] disease. Electronically signed by: Yonathan Gonsales M.D. Estephania Alas NP IMG XR PROCEDURES Final Result documented in this encounter Visit Diagnoses Diagnosis Shortness of breath- Primary Cough Shortness of breath documented in this encounter Discontinued Medications Medication Sig Discontinue Reason Start Date End Da te acetaminophen ER (TYLENOL) 650 mg 8 hr tablet Take 1-2 tablets (650-1,300 mg total) by mouth every 8 (eight) hours as needed for pain, fever or headaches. Therapy completed 03/12/2018 02/04/2019 albuterol HFA (PROAIR HFA) 90 mcg/actuation inhaler Inhale 2 puffs every 4 (four) hours as needed for wheezing or shortness of breath. Therapy completed 03/12/2018 02/04/2019 documented as of this encounter Care Teams Sheet Combining Operator Relationship Specialty Start Date End Date Violeta Casillas DO PCP - General 09/29/16 09/15/21 documented as of this encounter
--- OUTSIDE RECORDS SUMMARY | 2024-07-09 02:20 | XMS_ITS | Encounter Summary ---
Author Organization [facility] Care Team Providers Care Demurrage Agent Name Role Phone Violeta Casillas DO Primary Care Provider + Encounter Details Date Type Department Care Team (Latest Contact Info) Description 04/11/2019 Travel Social History Tobacco Use Types Packs/Day Years Used Date Smoking Tobacco: Former Smokeless Tobacco: Former Alcohol Use Standard Drinks/Week Comments Yes 0 (1 standard drink = 0.6 oz pur e alcohol) PHQ-2 Answer Date Recorded PHQ-2 Score 0 02/22/2019 Sex and Gender Information Value Date Recorded Sex Assigned at Not on file 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
--- OUTSIDE RECORDS SUMMARY | 2024-07-09 02:20 | XMS_ITS | Encounter Summary ---
Author Organization [facility] Address [address] [address] Care Team Providers Care Collective Bargaining Specialist Name Role Phone Violeta Casillas DO Primary Care Provider + Encounter Details Date Type Department Care Team (Late st Contact Info) Description 11/28/2018 Telephone Medical [facility] [address] [place] [address] Ruth Hankins LPN Social History Tobacco Use Types Packs/Day Years Used Date Smoking Tobacco: Former Smokeless Tobacco: Former Alcohol Use Standard Drinks/Week Comments Yes 0 (1 standard drink = 0.6 oz pur e alcohol) Sex and Gender Information Value Date Recorded Sex Assigned at Not on file 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 Casillas, no changes in coumadin dosing at this time. documented in this encounter Plan of Treatment Not on file documented as of this encounter Visit Diagnoses Not on filedocumented in this encounter Care Teams Collective Bargaining Specialist Relationship Specialty Start Date End Date Violeta Casillas DO PCP - General 09/29/16 09/15/21 documented as of this encounter
--- OUTSIDE RECORDS SUMMARY | 2024-07-09 02:20 | XMS_ITS | Encounter Summary ---
Author Organization [facility] Address [address] [facility] [address] [place] [address] Care Team Providers Care Orthodontic Assistant Name Role Phone Violeta Casillas DO Primary Care Provider + Encounter Details Date Type Department Care Team (Late st Contact Info) Description 04/08/2019 Telephone Medical [facility] [address] [place] [address] Violeta Casillas DO [address] [place] [address] Social History Tobacco Use Types Packs/Day Years Used Date Smoking Tobacco: Former Smokeless Tobacco: Former Alcohol Use Standard Drinks/Week Comments Yes 0 (1 standard drink = 0.6 oz pur e alcohol) PHQ-2 Answer Date Recorded PHQ-2 Score 0 02/22/2019 Sex and Gender Information Value Date Recorded Sex Assigned at Not on file 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 Casillas say patient only needs to hold warfarinfor 3 days and resume day after procedure. Called and spoke to patient's , she will relay the message. * Telephone Encounter - Ruth Farmer LPN - 04/08/2019 3:13 PM CDT After I typed that last message, I found the correct physician, Villa Wiley [phone] I left a message requesting procedure and estimated blood loss. * Telephone Encounter - Ruth Farmer LPN - 04/08/2019 3:06 PM CDT Patient was unsure of the exact procedure and I'm unable to find a doctor with the name he gave me and the phone number is to a [email or web address]. He said it was a Dr. Villa [place] or [facility], I couldn't get him or the to clarify if it was a C or a D and the number they gave me was [phone] * Telephone Encounter - Violeta Casillas DO - 04/08/2019 1:56 PM CDT 5 days should be helpful enough and then check INR the day before the procedure. Can you call to see what exactly the procedure is to see what the estimated blood loss may be so I know how big of a deal it is? * Telephone Encounter - Kendra Dickerson - 04/08/2019 1:32 PM CDT Pt called and he is scheduled to have surgery 04/17/19 to remove a lesion off his ear and he wantedto know how many days does he need to be off his blood thinner before the surgery. documented in this encounter Plan of Treatment Not on file documented as of this encounter Visit Diagnoses Not on filedocumented in this encounter Care Teams Orthodontic Assistant Relationship Specialty Start Date End Date Violeta Casillas DO PCP - General 09/29/16 09/15/21 documented as of this encounter
--- OUTSIDE RECORDS SUMMARY | 2024-07-09 02:20 | XMS_ITS | Encounter Summary ---
Author Organization [facility] Address [address] [facility] [address] [place] [address] Care Team Providers Care Center Line Cutter Operator Name Role Phone Violeta Casillas DO Primary Care Provider + Encounter Details Date Type Department Care Team ([facility] st Contact Info) Description 01/17/2019 10:00 AM CDT Lab Medical [facility] [address] 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 Gender Identity Not on file Sexual Orientation Not on file documented as of this encounter Plan of Treatment Not on file documented as of this encounter Procedures Procedure Name Priority Date/Time Associated Diagnosis Comments POCT INR Routine 01/17/2019 10:00 AM CDT Atrial fibrillation, unspecified type (CMS/HCC) documented in this encounter Results * POCT INR (01/17/2019 10:00 AM CDT) INR, POC 1.6 Comment:called and faxed Blood specimen (specimen) (Blood, Venous) 01/17/2019 10:00 AM CDT Violeta Casillas DO POINT OF CARE TEST ORDER ANDREZ Final Result documented in this encounter Visit Diagnoses Diagnosis Atrial fibrillation, unspecified type (HCC) documented in this encounter Care Teams Center Line Cutter Operator Relationship Specialty Start Date End Date Violeta Casillas DO PCP - General 09/29/16 09/15/21 documented as of this encounter
--- OUTSIDE RECORDS SUMMARY | 2024-07-09 02:20 | XMS_ITS | Encounter Summary ---
Author Organization [facility] Address [address] [facility] [address] [place] [address] Care Team Providers Care Reamer Hand Name Role Phone Violeta Casillas DO Primary Care Provider + Reason for Visit * Reason Onset Date Comments Anticoagulation 04/17/2019 Encounter Details Date Type Department Care Team (Late st Contact Info) Description 04/17/2019 Telephone Medical [facility] [address] [place] [address] Ruth Hankins LPN Anticoagulation Social History Tobacco Use Types Packs/Day Years Used Date Smoking Tobacco: Former Smokeless Tobacco: Former Alcohol Use Standard Drinks/Week Comments Yes 0 (1 standard drink = 0.6 oz pur e alcohol) PHQ-2 Answer Date Recorded PHQ-2 Score 0 02/22/2019 Sex and Gender Information Value Date Recorded Sex Assigned at Not on file 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 Casillas, no changes in medication and recheck in 2 weeks Left voicemail for patient to return call. documented in this encounter Plan of Treatment Not on file documented as of this encounter Visit Diagnoses Not on filedocumented in this encounter Care Teams Reamer Hand Relationship Specialty Start Date End Date Violeta Casillas DO PCP - General 09/29/16 09/15/21 documented as of this encounter
--- OUTSIDE RECORDS SUMMARY | 2024-07-09 02:20 | XMS_ITS | Encounter Summary ---
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
--- OUTSIDE RECORDS SUMMARY | 2024-07-09 02:20 | XMS_ITS | Encounter Summary ---
Author Organization [facility] Address [address] [facility] [address] [place] [address] Care Team Providers Care Corn Sheller Operator Name Role Phone Violeta Casillas DO Primary Care Provider + Encounter Details Date Type Department Care Team (Late st Contact Info) Description 05/06/2018 Telephone Medical [facility] [address] [place] [address] Violeta Casillas DO [address] [place] [address] Social History Tobacco Use Types Packs/Day Years Used Date Smoking Tobacco: Former Smokeless Tobacco: Former Alcohol Use Standard Drinks/Week Comments Yes 0 (1 standard drink = 0.6 oz pur e alcohol) Sex and Gender Information Value Date Recorded Sex Assigned at Not on file 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 180 tablet 1 8 11/12/19 19 amitriptyline (ELAVIL) 10 mg tablet Take 1 tablet (10 mg total) by mouth nightly. at bedtime. 90 tablet 8 09/10/19 19 lovastatin (MEVACOR) 20 mg tabletIndications:Pure hypercholesterolemia Take 2 tablets (40 mg total) by mouth nightly. 180 tablet 1 8 05/06/20 18 amitriptyline (ELAVIL) 10 mg tablet Take 1 tablet (10 mg total) by mouth nightly. at bedtime. 90 tablet 8 05/06/20 18 documented in this encounter Miscellaneous Notes * Telephone Encounter - Nguyễn Rueda Lisa - 05/06/2018 10:36 AM CST He needs his cholesterol med and amitripilyne sent [facility] [place] it was sent to a different pharmacy but was going to be too expensive. ENTICE JOCKEY documented in this encounter Plan of Treatment Not on file documented as of this encounter Visit Diagnoses Diagnosis Pure hypercholesterolemia documented in this encounter Discontinued Medications Medication Sig Discontinue Reason Start Date End Da te amitriptyline (ELAVIL) 10 mg tablet TAKE 1 TABLET BY MOUTH AT BEDTIME Reorder 05/03/2018 05/06/2018 lovastatin (MEVACOR) 20 mg tabletIndications:Pure hypercholesterolemia Take 2 tablets (40 mg total) by mouth nightly. Reorder 09/13/2017 05/06/2018 amitriptyline (ELAVIL) 10 mg tablet Take 1 tablet (10 mg total) by mouth nightly. at bedtime. Reorder 05/06/2018 05/06/2018 lovastatin (MEVACOR) 20 mg tabletIndications:Pure hypercholesterolemia Take 2 tablets (40 mg total) by mouth nightly. Reorder 05/06/2018 05/06/2018 documented as of this encounter Care Teams Corn Sheller Operator Relationship Specialty Start Date End Date Violeta Casillas DO PCP - General 09/29/16 09/15/21 documented as of this encounter
--- OUTSIDE RECORDS SUMMARY | 2024-07-09 02:20 | XMS_ITS | Encounter Summary ---
Author Organization [facility] Facility Care Team Providers Care Rotary Driller Prospecting Name Role Phone Violeta Casillas DO Primary Care Provider + Encounter Details Date Type Department Care Team (Latest Contact Info) Description 04/16/2019 Travel Social History Tobacco Use Types Packs/Day Years Used Date Smoking Tobacco: Former Smokeless Tobacco: Former Alcohol Use Standard Drinks/Week Comments Yes 0 (1 standard drink = 0.6 oz pur e alcohol) PHQ-2 Answer Date Recorded PHQ-2 Score 0 02/22/2019 Sex and Gender Information Value Date Recorded Sex Assigned at Not on file 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
--- OUTSIDE RECORDS SUMMARY | 2024-07-09 02:20 | XMS_ITS | Encounter Summary ---
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
--- OUTSIDE RECORDS SUMMARY | 2024-07-09 02:20 | XMS_ITS | Encounter Summary ---
Author Organization [facility] Address [address] [address] Care Team Providers Care Loom Operator Apprentice Name Role Phone Violeta Casillas DO Primary Care Provider + Reason for Visit * Reason Comments Flu Vaccine Encounter Details Date Type Department Care Team (Latest Contact Info) Description 04/11/2019 10:15 AM CDT Clinical Support [facility] [address] [place] [id number] Flu vaccine need (Primary Dx) Social History Tobacco Use Types Packs/Day Years Used Date Smoking Tobacco: Former Smokeless Tobacco: Former Alcohol Use Standard Drinks/Week Comments Yes 0 (1 standard drink = 0.6 oz pur e alcohol) PHQ-2 Answer Date Recorded PHQ-2 Score 0 02/22/2019 Sex and Gender Information Value Date Recorded Sex Assigned at Not on file 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 Vaccine given in left deltoid. Patient tolerated well. documented in this encounter Plan of Treatment Not on file documented as of this encounter Visit Diagnoses Diagnosis Flu vaccine need- Primary documented in this encounter Orders Immunization/Injection Count Last Ordered Date First Ordered Date FLU VACCINE HD TRI PF 65Y+ IM 1 04/11/2019 documented in this encounter Care Teams Loom Operator Apprentice Relationship Specialty Start Date End Date Violeta Casillas DO PCP - General 09/29/16 09/15/21 documented as of this encounter
--- OUTSIDE RECORDS SUMMARY | 2024-07-09 02:20 | XMS_ITS | Encounter Summary ---
Author Organization [facility] Address [address] [facility] [address] [place] [address] Care Team Providers Care Insurance Professional Name Role Phone Violeta Casillas DO Primary Care Provider + Encounter Details Date Type Department Care Team (Late st Contact Info) Description 02/03/2019 8:15 AM CDT Lab Medical [facility] [address] 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 Gender Identity Not on file Sexual Orientation Not on file documented as of this encounter Plan of Treatment Not on file documented as of this encounter Procedures Procedure Name Priority Date/Time Associated Diagnosis Comments POCT INR Routine 02/03/2019 8:10 AM CDT Chronic atrial fibrillation (CMS/HCC) documented in this encounter Results * POCT INR (02/03/2019 8:10 AM CDT) INR, POC 2.5 Blood specimen (specimen) (Blood, Venous) 02/03/2019 8:10 AM CDT Violeta Casillas DO POINT OF CARE TEST ORDER ANDREZ Final Result documented in this encounter Visit Diagnoses Diagnosis Atrial fibrillation, unspecified type (HCC)- Primary Chronic atrial fibrillation (HCC) Atrial fibrillation documented in this encounter Care Teams Insurance Professional Relationship Specialty Start Date End Date Violeta Casillas DO PCP - General 09/29/16 09/15/21 documented as of this encounter
--- OUTSIDE RECORDS SUMMARY | 2024-07-09 02:20 | XMS_ITS | Encounter Summary ---
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
--- OUTSIDE RECORDS SUMMARY | 2024-07-09 02:20 | XMS_ITS | Encounter Summary ---
Author Organization [facility] Address [address] [address] Care Team Providers Care Product Management Intern Name Role Phone Violeta Casillas DO Primary Care Provider + Encounter Details Date Type Department Care Team (Late st Contact Info) Description 01/17/2019 Telephone Medical [facility] [address] [place] [address] Ruth Hankins LPN Social History Tobacco Use Types Packs/Day Years Used Date Smoking Tobacco: Former Smokeless Tobacco: Former Alcohol Use Standard Drinks/Week Comments Yes 0 (1 standard drink = 0.6 oz pur e alcohol) Sex and Gender Information Value Date Recorded Sex Assigned at Not on file 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 Casillas, INR 1.6, patient to take an extra 3 mg coumadin today and recheck in one week. Spoke to patient, he verbalized understanding. documented in this encounter Plan of Treatment Not on file documented as of this encounter Visit Diagnoses Diagnosis Warfarin anticoagulation- Primary documented in this encounter Care Teams Product Management Intern Relationship Specialty Start Date End Date Violeta Casillas DO PCP - General 09/29/16 09/15/21 documented as of this encounter
--- OUTSIDE RECORDS SUMMARY | 2024-07-09 02:21 | XMS_ITS | Encounter Summary ---
Author Organization [facility] Address [address] [address] Care Team Providers Care Venetian Blind Worker Name Role Phone Violeta Casillas DO Primary Care Provider + Reason for Referral * (Routine) - Closed Specialty Diagnoses / Procedures Referred By Contac t Referred To Contact Diagnoses Other chest pain Procedures ECG 12 lead Violeta Casillas DO Phone: tel: fax: [address] [phone] Referral ID Status Reason Start Date Expiration Date Visits Re quested Visits Authorized [id number] Closed 03/12/2018 09/21/2019 1 1 * Diagnostic Imaging (Routine) - Closed Specialty Diagnoses / Procedures Referred By Contac t Referred To Contact Diagnoses Chronic obstructive pulmonary disease with acute exacerbation (HCC) Other chest pain Chronic atrial fibrillation (HCC) Procedures XR Chest Pa Lateral 2 Views Violeta Casillas DO Phone: tel: fax: [address] [phone] Referral ID Status Reason Start Date Expiration Date Visits Re quested Visits Authorized [id number] Closed 03/12/2018 09/21/2019 1 1 Reason for Visit * Reason Comments Cough Nasal Congestion Encounter Details Date Type Department Care Team ([facility] st Contact Info) Description 03/12/2018 9:30 AM CDT Office Visit Medical [facility] [address] [place] [id number] Violeta Casillas DO [address] [place] [address] Chronic obstructive pulmonary disease with acute exacerbation (CMS/HCC) (Primary Dx); Other chest pain; Chronic atrial fibrillation (CMS/HCC) Social History Tobacco Use Types Packs/Day Years Used Date Smoking Tobacco: Former Smokeless Tobacco: Former Alcohol Use Standard Drinks/Week Comments Yes 0 (1 standard drink = 0.6 oz pur e alcohol) Sex and Gender Information Value Date Recorded Sex Assigned at Not on file 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 Gender Identity Not on file Sexual Orientation Not on file documented as of this encounter Last Filed Vital Signs Vital Sign Reading Time Taken Comments Blood Pressure 110/62 03/12/2018 9:07 AM CDT Pulse 70 03/12/2018 9:07 AM CDT Temperature 36.6 ??C (97.8 ??F) 03/12/2018 9:07 AM CD T Respiratory Rate 20 03/12/2018 9:07 AM CDT Oxygen Saturation 95% 03/12/2018 9:07 AM CDT Inhaled Oxygen Concentration - - Weight 67.6 kg (149 lb) 03/12/2018 9:07 AM CDT Height 185.4 cm (6' 1 ) 03/12/2018 9:07 AM CDT Body Mass Index 19.66 03/12/2018 9:07 AM CDT documented in this encounter Ordered Prescriptions Prescription Sig Dispense Quantity Refills Last Filled Start Date End Date acetaminophen ER (TYLENOL) 650 mg 8 hr tablet Take 1-2 tablets (650-1,300 mg total) by mouth every 8 (eight) hours as needed for pain, fever or headaches. 30 tablet 03/12/2018 9 doxycycline (VIBRAMYCIN) 100 mg capsule Take 1 tablet/capsule (100 mg total) by mouth 2 (two) times a day for 10 days. 20 tablet/capsule 03/12/2018 8 predniSONE (DELTASONE) 20 mg tablet Take 1 tablet (20 mg total) by mouth 2 (two) times a day with breakfast and lunch for 5 days. 10 tablet 03/12/2018 8 inhalational spacing device (AEROCHAMBER WITH FLOWSIGNAL) spacer Use as directed with inhalers 1 each 03/12/2018 8 albuterol HFA (PROAIR HFA) 90 mcg/actuation inhaler Inhale 2 puffs every 4 (four) hours as needed for wheezing or shortness of breath. 8.5 g 03/12/2018 9 documented in this encounter Progress Notes * Violeta Casillas, - 03/12/2018 9:30 AM CDT Subjective/Objective Patient ID: Noé Davila is a 82 y.o. male. Chief Complaint Cough and Nasal Congestion Vitals: 03/12/18 0907 BP: 110/62 BP Location: Left arm Patient Position: Sitting Pulse: 70 Resp: 20 Temp: 36.6 ??C (97.8 ??F) SpO2: 95% Weight: 67.6 kg (149 lb) Height: 185.4 cm (6' 1 ) Body mass index is 19.66 kg/m??. Patient has had some left side CP off and on that seems to be worse with movement. No hx of FL or CAD. No palpitations with it. He does not use any inhalers for COPD. Cough This is a new problem. The current episode started in the past 7 days. The problem has been gradually worsening. The problem occurs constantly. The cough is productive of sputum. Associated symptoms include chest pain, nasal congestion, postnasal drip, rhinorrhea, shortness of breath and wheezing. P ertinent negatives include no chills, ear pain or fever. He has tried OTC cough suppressant for thesymptoms. The treatment provided no relief. His past medical history is significant for COPD. Review of Systems Constitutional: Negative for chills and fever. HENT: Positive for postnasal drip and rhinorrhea. Negative for ear pain. Respiratory: Positive for cough, shortness of breath and wheezing. Cardiovascular: Positive for chest pain. Physical Exam Constitutional: He is oriented to [...] acute exacerbation (CMS/HCC) (Primary) Assessment & Plan: Albuterol HFA with aerochamber given today. Doxycycline and prednisone given for the exacerbation. Orders: - XR Chest Pa Lateral 2 Views; Future Other chest pain Assessment & Plan: Patient told to go to ER if he gets any recurrent episodes of CP since he had abnormal EKG with RBBB today. I expect this is likely old, but he may have real disease with anginal symptoms. Consultingcardiology JERONIMO. Chest x-ray was negative. Orders: - XR Chest Pa Lateral 2 Views; Future - ECG 12 lead; Future Chronic atrial fibrillation ([facility]) Assessment & Plan: Consult cardiology. Orders: - XR Chest Pa Lateral 2 Views; Future Other orders - albuterol HFA (PROAIR HFA) 90 mcg/actuation inhaler; Inhale 2 puffs every 4 (four) hours as needed for wheezing or shortness of breath. - inhalational spacing device (AEROCHAMBER WITH FLOWSIGNAL) spacer; Use as directed with inhalers - predniSONE (DELTASONE) 20 mg tablet; Take 1 tablet (20 mg total) by mouth 2 (two) times a day with breakfast and lunch for 5 days. - doxycycline (VIBRAMYCIN) 100 mg capsule; Take 1 tablet/capsule (100 mg total) by mouth 2 (two) times a day for 10 days. - acetaminophen ER (TYLENOL) 650 mg 8 hr tablet; Take 1-2 tablets (650-1,300 mg total) by mouth every 8 (eight) hours as needed for pain, fever or headaches. BMI Follow-up includes: education provided. Orders Placed This Encounter ??? XR Chest Pa Lateral 2 Views Standing Status: Future Number of Occurrences: 1 Standing Expiration Date: 03/12/2019 Order Specific Question: Where should this order be performed? Answer: [facility] [[id number]] ??? ECG 12 lead Standing Status: Future Number of Occurrences: 1 Standing Expiration Date: 03/12/2019 Order Specific Question: Where should this order be performed? Answer: [facility] [[id number]] Order Specific Question: Reason / Symptom Answer: Other (specify) Order Specific Question: Other (specify) Answer: baseline for Afib and periodic CP ??? albuterol HFA (PROAIR HFA) 90 mcg/actuation inhaler Sig: Inhale 2 puffs every 4 (four) hours as needed for wheezing or shortness of breath. Dispense: 8.5 g Refill: 0 ??? inhalational spacing device (AEROCHAMBER WITH FLOWSIGNAL) spacer Sig: Use as directed with inhalers Dispense: 1 each Refill: 0 Substitute any spacer that would be covered or cheaper. ??? predniSONE (DELTASONE) 20 mg tablet Sig: Take 1 tablet (20 mg total) by mouth 2 (two) times a day with breakfast and lunch for 5 days. Dispense: 10 tablet Refill: 0 ??? doxycycline (VIBRAMYCIN) 100 mg capsule Sig: Take 1 tablet/capsule (100 mg total) by mouth 2 (two) times a day for 10 days. Dispense: 20 tablet/capsule Refill: 0 ??? acetaminophen ER (TYLENOL) 650 mg 8 hr tablet Sig: Take 1-2 tablets (650-1,300 mg total) by mouth every 8 (eight) hours as needed for pain, feveror headaches. Dispense: 30 tablet documented in this encounter Miscellaneous Notes * Assessment & Plan Note - Violeta Casillas DO - 03/12/2018 7:01 PM CDT Associated Problem(s): Chronic atrial fibrillation (HCC) Consult cardiology. * Assessment & Plan Note - Violeta Casillas DO - 03/12/2018 6:59 PM CDT Associated Problem(s): Chronic obstructive pulmonary disease (HCC) Albuterol HFA with aerochamber given today. Doxycycline and prednisone given for the exacerbation. * Assessment & Plan Note - Violeta Casillas DO - 03/12/2018 6:54 PM CDT Associated Problem(s): Other chest pain (Resolved 06/18/2018) Patient told to go to ER if he gets any recurrent episodes of CP since he had abnormal EKG with RBBB today. I expect this is likely old, but he may have real disease with anginal symptoms. Consultingcardiology JERONIMO. Chest x-ray was negative. documented in this encounter Plan of Treatment Not on file documented as of this encounter Results * ECG 12 lead (03/12/2018 10:26 AM CDT) Patient age 82 years [facility] Interpretation Text SINUS RHYTHM WITH SINUS ARRHYTHMIAINDETERMINATE AXISRIGHT BUNDLE BRANCH BLOCKSEPTAL MYOCARDIAL INFARCTION , PROBABLY OLDABNORMAL ECGNO PREVIOUS TRACING [facility] Comment:Physician Interprete r Dr. Cricket Millan Ventricular Rate EKG/Min 85 /min [facility] P Wave Duration 104 ms [facility] QRS-Interval (MSEC) 140 ms [facility] GA-Interval (MSEC) 124 ms [facility] QT Interval 385 ms [facility] QTc 428 ms [facility] QTC Interval ms [facility] P [place] 84 deg [facility] QRS [place] 75 deg [facility] T [place] 61 deg [facility] 03/12/2018 10:3 1 AM CDT us Violeta Casillas DO ECG ORDERABLES Final Re sult [facility] * XR Chest Pa Lateral 2 Views (03/12/2018 10:24 AM CDT) Anatomical Region Laterality Modality Body, Chest N/A Computed Radiogr aphy 03/12/2018 10:3 0 AM CDT Impressions 03/12/2018 10:30 AM CDT Hyperinflation consistent with COPD. Electronically signed by: Corey Garcia MD Narrative 03/12/2018 10:30 AM CDT STUDY DESCRIPTION: XR CHEST PA LATERAL 2 VIEWS TECHNIQUE: Chest 2 Views. COMPARISON STUDIES: None HISTORY: Chronic obstructive pulmonary disease with (acute) exacerbationChronic obstructive pulmonary disease with (acute) exacerbation FINDINGS: Heart hilar mediastinal structures show no acute focal findings lungs are hyperinflated but otherwise clear. ??No pleural effusions or other acute focal findings are noted. ??Few calcified granulomatous residuals are present Procedure Note Corey Garcia MD - 03/12/2018 STUDY DESCRIPTION: XR CHEST PA LATERAL 2 VIEWS TECHNIQUE: Chest 2 Views. COMPARISON STUDIES: None HISTORY: Chronic obstructive pulmonary disease with (acute) exacerbationChronic obstructive pulmonary disease with (acute) exacerbation FINDINGS: Heart hilar mediastinal structures show no acute focal findings lungs are hyperinflated but otherwise clear. No pleural effusions or other acute focal findings are noted. Few calcified granulomatous residuals are present IMPRESSION: Hyperinflation consistent with COPD. Electronically signed by: Corey Garcia MD Violeta Casillas DO IMG XR PROCEDURES Final Result documented in this encounter Visit Diagnoses Diagnosis Chronic obstructive pulmonary disease with acute exacerbation (HCC)- Primary Other chest pain Chronic atrial fibrillation (HCC) Atrial fibrillation Chronic obstructive pulmonary disease with acute exacerbation (HCC) Other chest pain Chronic atrial fibrillation (HCC) Atrial fibrillation documented in this encounter Care Teams Venetian Blind Worker Relationship Specialty Start Date End Date Violeta Casillas DO PCP - General 09/29/16 09/15/21 documented as of this encounter
--- OUTSIDE RECORDS SUMMARY | 2024-07-09 02:21 | XMS_ITS | Encounter Summary ---
Author Organization [facility] Address [address] [address] Care Team Providers Care Neurology Technologist Name Role Phone Violeta Casillas DO Primary Care Provider + Reason for Visit * Reason Onset Date Comments Test Results 02/06/2017 med change Encounter Details Date Type Department Care Team (Late st Contact Info) Description 02/06/2017 Telephone Medical [facility] [address] [place] [phone] Lesley Grant Test Results (med change ) Social History Tobacco Use Types Packs/Day Years Used Date Smoking Tobacco: Former Alcohol Use Standard Drinks/Week Comments Yes 0 (1 standard drink = 0.6 oz pur e alcohol) Sex and Gender Information Value Date Recorded Sex Assigned at Not on file 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 Patient verbalized understanding. documented in this encounter Plan of Treatment Not on file documented as of this encounter Visit Diagnoses Not on filedocumented in this encounter Care Teams Neurology Technologist Relationship Specialty Start Date End Date Violeta Casillas DO PCP - General 09/29/16 09/15/21 documented as of this encounter
--- OUTSIDE RECORDS SUMMARY | 2024-07-09 02:21 | XMS_ITS | Encounter Summary ---
Author Organization [facility] Address [address] [address] Care Team Providers Care Senior Talent Management Consultant Name Role Phone Violeta Casillas DO Primary Care Provider + Encounter Details Date Type Department Care Team (Late st Contact Info) Description 10/08/2017 Telephone Medical [facility] [address] [place] [phone] Ruth Hankins LPN Social History Tobacco Use Types Packs/Day Years Used Date Smoking Tobacco: Former Alcohol Use Standard Drinks/Week Comments Yes 0 (1 standard drink = 0.6 oz pur e alcohol) Sex and Gender Information Value Date Recorded Sex Assigned at Not on file 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 Understanding verbalized.INR 1.6 documented in this encounter Plan of Treatment Not on file documented as of this encounter Visit Diagnoses Not on filedocumented in this encounter Orders Lab Orders Without Results Count Last Ordered D ate First Ordered Date PROTIME-INR 1 10/08/2017 documented in this encounter Care Teams Senior Talent Management Consultant Relationship Specialty Start Date End Date Violeta Casillas DO PCP - General 09/29/16 09/15/21 documented as of this encounter
--- OUTSIDE RECORDS SUMMARY | 2024-07-09 02:21 | XMS_ITS | Encounter Summary ---
Author Organization [facility] Address [address] [facility] [address] [place] [address] Care Team Providers Care Manager Cleaning Name Role Phone Violeta Casillas DO Primary Care Provider + Encounter Details Date Type Department Care Team (Late st Contact Info) Description 10/08/2017 Telephone [facility] [address] [place] [phone] Violeta Casillas DO [address] [place] [address] Social History Tobacco Use Types Packs/Day Years Used Date Smoking Tobacco: Former Alcohol Use Standard Drinks/Week Comments Yes 0 (1 standard drink = 0.6 oz pur e alcohol) Sex and Gender Information Value Date Recorded Sex Assigned at Not on file 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
--- OUTSIDE RECORDS SUMMARY | 2024-07-09 02:21 | XMS_ITS | Encounter Summary ---
Author Organization [facility] Address [address] [facility] [address] [place] [address] Care Team Providers Care Glove Former Name Role Phone Violeta Casillas Primary Care Provider + Encounter Details Date Type Department Care Team (Late st Contact Info) Description 04/15/2018 Telephone Medical [facility] [address] [place] [phone] Ruth Hankins LPN Social History Tobacco Use Types Packs/Day Years Used Date Smoking Tobacco: Former Smokeless Tobacco: Former Alcohol Use Standard Drinks/Week Comments Yes 0 (1 standard drink = 0.6 oz pur e alcohol) Sex and Gender Information Value Date Recorded Sex Assigned at Not on file 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 * Telephone Encounter - Villa Esquivel NP - 04/15/2018 12:24 PM CDT Pt to increase dose of coumadin on Sunday, Sunday, and Sunday to 8 mg and recheck INR in 1 week * Telephone Encounter - Ruth Farmer LPN - 04/15/2018 11:56 AM CDT Nila called in INR of 1.7 for this patient. Takes 7 mg coumadin daily. documented in this encounter Plan of Treatment Not on file documented as of this encounter Visit Diagnoses Not on filedocumented in this encounter Care Teams Glove Former Relationship Specialty Start Date End Date Violeta Casillas DO PCP - General 09/29/16 09/15/21 documented as of this encounter
--- OUTSIDE RECORDS SUMMARY | 2024-07-09 02:21 | XMS_ITS | Encounter Summary ---
Author Organization [facility] Medical [facility] Address [address] [facility] [address] [place] [address] Care Team Providers Care Door Frame Assembler Machine Name Role Phone Violeta Casillas DO Primary Care Provider + Reason for Visit * Reason Comments Follow-up labs, refused vaccin es Encounter Details Date Type Department Care Team (Late st Contact Info) Description 12/17/2017 1:15 PM CDT Office Visit [facility] [place] [address] Violeta Casillas DO [address] [place] [address] Chronic idiopathic constipation (Primary Dx); Pure hypercholesterolemia; Chronic atrial fibrillation (CMS/HCC); Chronic obstructive pulmonary disease, unspecified COPD type (CMS/HCC); Xanthoma Social History Tobacco Use Types Packs/Day Years Used Date Smoking Tobacco: Former Smokeless Tobacco: Former Alcohol Use Standard Drinks/Week Comments Yes 0 (1 standard drink = 0.6 oz pur e alcohol) Sex and Gender Information Value Date Recorded Sex Assigned at Not on file Legal Sex Male 3:40 AM ELEVATED GUARD Gender Identity Not on file Sexual Orientation Not on file documented as of this encounter Last Filed Vital Signs Vital Sign Reading Time Taken Comments Blood Pressure 120/64 12/17/2017 1:00 PM CDT Pulse 83 12/17/2017 1:00 PM CDT Temperature 36.2 ??C (97.2 ??F) 12/17/2017 1:00 PM CD T Respiratory Rate 18 12/17/2017 1:00 PM CDT Oxygen Saturation 94% 12/17/2017 1:00 PM CDT Inhaled Oxygen Concentration - - Weight 70.8 kg (156 lb) 12/17/2017 1:00 PM CDT Height 182.9 cm (6' 0.01 ) 12/17/2017 1:00 PM CD T Body Mass Index 21.15 12/17/2017 1:00 PM CDT documented in this encounter Ordered Prescriptions Prescription Sig Dispense Quantity Refills Last Filled Start Date End Date senna (SENOKOT) 8.6 mg tabletIndications: Chronic idiopathic constipation Take 1 tablet by mouth daily as needed for constipation . 12/17/2017 09/17/2020 documented in this encounter Progress Notes * CasillasVioleta Dominic, DO - 12/17/2017 1:15 PM CDT Subjective/Objective Patient ID: Noé Davila is a 82 y.o. male. Chief Complaint Follow-up (labs, refused vaccines) Vitals: 12/17/17 1300 BP: 120/64 Pulse: 83 Resp: 18 Temp: 36.2 ??C (97.2 ??F) TempSrc: Tympanic SpO2: 94% Weight: 70.8 kg (156 lb) Height: 182.9 cm (6' 0.01 ) Body mass index is 21.15 kg/m??. Noé Davila is here for chronic problems and lab review. All prescribed meds are tolerated well without any reported side effects or intolerances. Review of Systems Constitutional: Negative for fatigue and fever. Respiratory: Negative for cough and shortness of breath. Cardiovascular: Negative for chest pain and palpitations. Gastrointestinal: Negative for diarrhea, nausea and vomiting. Physical Exam Constitutional: He is oriented to person, place, and time. He appears well- developed and well-nourished. No distress. HENT: Head: Normocephalic and atraumatic. Eyes: Conjunctivae are normal. Cardiovascular: Normal rate. An irregularly irregular rhythm present. Exam reveals no gallop and nofriction rub. Murmur heard. Pulmonary/Chest: Effort normal and breath sounds [...] and all orders for this visit: Chronic idiopathic constipation (Primary) Assessment & Plan: Chronic & stable on meds. Continue current treatment. Orders: - senna (SENOKOT) 8.6 mg tablet; Take 1 tablet by mouth daily as needed for constipation. Pure hypercholesterolemia Assessment & Plan: Chronic & stable on meds. Continue current treatment. Orders: - Comprehensive metabolic panel; Future - Cholesterol, LDL, direct; Future Chronic atrial fibrillation (CMS/HCC) Assessment & Plan: Chronic & stable on meds. Continue current treatment. Will continue to monitor weekly INR Chronic obstructive pulmonary disease, unspecified COPD type (CMS/HCC) Assessment & Plan: Stable without medications and he doesn't want inhaler at this time. Xanthoma Assessment & Plan: Informed patient of type of lesion and that it is benign. LDL is controlled well. BMI Follow-up includes: education provided. Orders Placed This Encounter ??? Comprehensive metabolic panel Standing Status: Future Number of Occurrences: 1 Standing Expiration Date: 12/17/2018 ??? Cholesterol, LDL, direct Standing Status: Future Number of Occurrences: 1 Standing Expiration Date: 12/17/2018 ??? senna (SENOKOT) 8.6 mg tablet Sig: Take 1 tablet by mouth daily as needed for constipation. documented in this encounter Miscellaneous Notes * Assessment & Plan Note - Violeta Casillas DO - 12/17/2017 9:44 PM CDT Associated Problem(s): Xanthoma Informed patient of type of lesion and that it is benign. LDL is controlled well. * Assessment & Plan Note - Violeta Casillas DO - 12/17/2017 9:42 PM CDT Associated Problem(s): Chronic atrial fibrillation (HCC) Chronic & stable on meds. Continue current treatment. Will continue to monitor weekly INR * Assessment & Plan Note - Violeta Casillas DO - 12/17/2017 9:42 PM CDT Associated Problem(s): Chronic idiopathic constipation Chronic & stable on meds. Continue current treatment. * Assessment & Plan Note - Violeta Casillas DO - 12/17/2017 9:41 PM CDT Associated Problem(s): Chronic obstructive pulmonary disease (HCC) Stable without medications and he doesn't want inhaler at this time. * Assessment & Plan Note - Violeta Casillas DO - 12/17/2017 9:41 PM CDT Associated Problem(s): Pure hypercholesterolemia Chronic & stable on meds. Continue current treatment. documented in this encounter Plan of Treatment Not on file documented as of this encounter Procedures Procedure Name Priority Date/Time Associated Diagnosis Comments CHOLESTEROL, LDL, DIRECT Routine 06/11/2018 8:20 AM ELEVATED GUARD Pure hypercholesterolemia COMPREHENSIVE METABOLIC PANEL Routine 06/11/2018 8:20 AM ELEVATED GUARD Pure hypercholesterolemia documented in this encounter Results * Cholesterol, LDL, direct (06/11/2018 8:20 AM ELEVATED GUARD) LDL, direct 85 <100 mg/dL [facility] [place] Comment: Greatly elevated Triglycerides values (>1200 mg/dL) interfere with the dLDL assay. As no Triglycerides testing was ordered, interpret results with caution. Desirable range <100 mg/dL for primary prevention; ?? <70 mg/dL for patients with CHD or diabetic patients with > or = 2 CHD risk factors. Blood specimen (specimen) 06/11/2018 8:20 AM ELEVATED GUARD 06/11/2018 8:38 PM ELEVATED GUARD Narrative Resulting Agency Comment Performing Organization Information: ?Site ID: ANA ?Name: [facility] ?Address: [id number] [phone] ?Director: Gomez Sánchez D.O., MPH us Violeta Casillas DO LAB BLOOD ORDERABLES Fin al Result [facility] [place] ANA Duffy * (ABNORMAL) Comprehensive metabolic panel (06/11/2018 8:20 AM ELEVATED GUARD) Pathologist [facility] Glucose 104(H) 65 - 99 mg/dL [facility] [place] Comment: ? Fasting reference interval For someone without known diabetes, a glucose value between 100 and 125 mg/dL is consistent with prediabetes and should be confirmed with a follow-up test. BUN 18 7 - 25 mg/dL [facility] [place] Creatinine 1.11 0.70 - 1.11 mg/dL [facility] [place] Comment: For patients >49 years of age, the reference limit for Creatinine is approximately 13% higher for people identified as -Bulgarian. eGFR NON-AFR. COLOMBIAN 62 > OR = 60 mL/min/1 .73m2 [facility] [place] EGFR 71 > OR = 60 mL/min/1 .73m2 [facility] [place] BUN/creat ratio NOT APPLICABLE 6 - 22 (calc) [facility] [place] Sodium 141 135 - 146 mmol/L [facility] [place] Potassium, pl 5.1 3.5 - 5.3 mmol/L [facility] [place] Chloride 105 98 - 110 mmol/L [facility] [place] CO2 28 20 - 32 mmol/L [facility] [place] Calcium 9.7 8.6 - 10.3 mg/dL [facility] [place] Protein, sr 6.7 6.1 - 8.1 g/dL [facility] [place] Albumin 4.3 3.6 - 5.1 g/dL [facility] [place] GLOBULIN 2.4 1.9 - 3.7 g/dL (calc) [facility] [place] Alb/glob ratio 1.8 1.0 - 2.5 (calc) [facility] [place] Bilirubin, total 0.8 0.2 - 1.2 mg/dL [facility] [place] Alk phos 92 40 - 115 U/L [facility] [place] AST 19 10 - 35 U/L [facility] [place] ALT (SGPT) 15 9 - 46 U/L [facility] [place] Blood specimen (specimen) 06/11/2018 8:20 AM ELEVATED GUARD 06/11/2018 8:38 PM ELEVATED GUARD Narrative Resulting Agency Comment Performing Organization Information: ?Site ID: ANA ?Name: [facility] ?Address: [facility] [address] [id number] ?Director: Gomez Sánchez D.O., MPH us Violeta Casillas DO LAB BLOOD ORDERABLES Fin al Result [facility] [place] documented in this encounter Visit Diagnoses Diagnosis Chronic idiopathic constipation- Primary Unspecified constipation Pure hypercholesterolemia Chronic atrial fibrillation (HCC) Atrial fibrillation Chronic obstructive pulmonary disease, unspecified COPD type (HCC) Xanthoma Mixed hyperlipidemia documented in this encounter Discontinued Medications Medication Sig Discontinue Reason Start Date End Da te methylcellulose (CITRUCEL, SUCROSE,) oral powder Mix one scoop once daily with 8 ounces of water and drink 03/18/2015 12/17/2017 documented as of this encounter Care Teams Door Frame Assembler Machine Relationship Specialty Start Date End Date Violeta Casillas DO PCP - General 09/29/16 09/15/21 documented as of this encounter
--- OUTSIDE RECORDS SUMMARY | 2024-07-09 02:21 | XMS_ITS | Encounter Summary ---
Author Organization [facility] Medical [facility] Address [address] [address] Care Team Providers Care Product Development Scientist Name Role Phone Violeta Casillas DO Primary Care Provider + Reason for Visit * Diagnostic Imaging (Routine) - Closed Specialty Diagnoses / Procedures Referred By Contac t Referred To Contact Cardiology Imaging Diagnoses Other chest pain Chronic atrial fibrillation (HCC) Abnormal ECG Procedures Transthoracic Echo Complete W Doppler/CF Hunter Shah MD Phone: tel: fax: [facility] Cardiology [address] [place] [phone] Phone: tel: fax: Referral ID Status Reason Start Date Expiration Date Visits Re quested Visits Authorized [id number] Closed 03/29/2018 10/08/2019 1 1 Encounter Details Date Type Department Care Team (Latest Contact Info) Description 04/02/2018 1:30 PM CDT Ancillary Procedure [facility] Cardiology [address] [place] [phone] Other chest pain; Chronic atrial fibrillation (CMS/HCC); Abnormal ECG Social History Tobacco Use Types Packs/Day Years Used Date Smoking Tobacco: Former Smokeless Tobacco: Former Alcohol Use Standard Drinks/Week Comments Yes 0 (1 standard drink = 0.6 oz pur e alcohol) Sex and Gender Information Value Date Recorded Sex Assigned at Not on file Legal Sex Male 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 Gender Identity Not on file Sexual Orientation Not on file documented as of this encounter Plan of Treatment Not on file documented as of this encounter Procedures Procedure Name Priority Date/Time Associated Diagnosis Comments TRANSTHORACIC ECHO (TTE) COMPLETE W DOPPLER/CF WO CONTRAST Routine 04/02/2018 1:45 PM CDT Other chest pain Chronic atrial fibrillation (CMS/HCC) Abnormal ECG documented in this encounter Results * TRANSTHORACIC ECHO (TTE) COMPLETE W DOPPLER/CF WO CONTRAST (04/02/2018 1:45 PM CDT) Anatomical Region Laterality Modality Ultrasound Narrative 04/02/2018 2:24 PM CDT Echocardiogram Report Date of Study: ?? 04/02/2018 ? Indications: ??Chronic atrial fibrillation, chest pain, dyspnea and abnormal ECG ? BP: 153/70 Description of Study: ??M-mode, 2-D and color flow Doppler study. ?? Technically adequate study. ? M-Mode Measurements: ?? LA: 3.8, LVEDD: 5.3, LVISD: 3.3, PW: 1.2, AV: 1.61 m/s, ?LVOT: ??1.33 m/sec. ??RVSP: 34 mmHg ? Findings: ? Left Ventricle: ??Normal left ventricular size and systolic contractility with estimated LVEF of 60%. ??Mild concentric LVH ? Right Ventricle: ??Normal right ventricular size and systolic contractility ? Left Atrium: ??Mild left atrial enlargement ? Right Atrium: ??Mild right atrial enlargement ? Aorta/Aortic Arch: ??Normal diameter of aortic root and aortic arch Aortic Valve: ??Mildly thickened aortic valve leaflets with mild aortic insufficiency ? Mitral Valve: ?Grossly normal with mild mitral regurgitation ? Tricuspid Valve: ??Mild tricuspid regurgitation with no evidence of pulmonary hypertension ? Pulmonic Valve: ??Mild pulmonic insufficiency ? Pericardium: ??No pericardial effusion. ?? IVC: ??Grossly normal Impression: ?1. ?Mild concentric LVH with normal LV size and systolic contractility, with estimated LVEF of 60% ??2. ?Normal right ventricular size and systolic contractility ?3. ?Mild biatrial enlargement ??4. ?Mild mitral regurgitation ?5. ?Mild tricuspid regurgitation with no evidence of pulmonary hypertension ?6. ?Mild aortic insufficiency ?7. ?No pericardial effusion ?? us Hunter Shah MD CV ECHO PROCEDURES Final Result documented in this encounter Visit Diagnoses Diagnosis Other chest pain Chronic atrial fibrillation (HCC) Atrial fibrillation Abnormal ECG Nonspecific abnormal electrocardiogram (ECG) (EKG) documented in this encounter Care Teams Product Development Scientist Relationship Specialty Start Date End Date Violeta Casillas DO PCP - General 09/29/16 09/15/21 documented as of this encounter
--- OUTSIDE RECORDS SUMMARY | 2024-07-09 02:21 | XMS_ITS | Encounter Summary ---
Author Organization [facility] Address [address] [facility] [address] [place] [address] Care Team Providers Care Gauger Delivery Name Role Phone Violeta Casillas DO Primary Care Provider + Reason for Visit * Reason Onset Date Comments Test Results 04/09/2018 nuclear stress t est Encounter Details Date Type Department Care Team (Late st Contact Info) Description 04/09/2018 Telephone [facility] [address] [place] [address] Rubén Conklin Test Results (nuclear stress test) Social History Tobacco Use Types Packs/Day Years Used Date Smoking Tobacco: Former Smokeless Tobacco: Former Alcohol Use Standard Drinks/Week Comments Yes 0 (1 standard drink = 0.6 oz pur e alcohol) Sex and Gender Information Value Date Recorded Sex Assigned at Not on file Legal Sex Male 3:40 AM PARTS IDENTIFIER Gender Identity Not on file Sexual Orientation Not on file documented as of this encounter Miscellaneous Notes * Telephone Encounter - Rubén Conklin MA - 04/09/2018 3:45 PM CDT Pt notified of nuclear stress test results----- Message from Hunter Shah MD sent at 04/09/2018 1:14 PM CDT ----- Please inform patient: Nuclear stress test showed no evidence of ischemia and normal LV systolic function. There is possible a mild infarct in inferior wall. Overall, this study is satisfactory and we can continue to monitor his symptoms for now. thanks documented in this encounter Plan of Treatment Not on file documented as of this encounter Visit Diagnoses Not on filedocumented in this encounter Care Teams Gauger Delivery Relationship Specialty Start Date End Date Violeta Casillas DO PCP - General 09/29/16 09/15/21 documented as of this encounter
--- OUTSIDE RECORDS SUMMARY | 2024-07-09 02:21 | XMS_ITS | Encounter Summary ---
Author Organization [facility] Address [address] [place] [address] Care Team Providers Care Pretzel Twisting Machine Operator Name Role Phone Violeta Casillas DO Primary Care Provider + Reason for Referral * Diagnostic Imaging (Routine) - Closed Specialty Diagnoses / Procedures Referred By Ignacia manzanares Referred To Contact Diagnoses Chronic obstructive pulmonary disease with acute exacerbation (HCC) Other chest pain Chronic atrial fibrillation (HCC) Procedures XR Chest Pa Lateral 2 Views Violeta Casillas DO Phone: tel: fax: [address] [phone] Referral ID Status Reason Start Date Expiration Date Visits Re quested Visits Authorized [id number] Closed 03/12/2018 09/21/2019 1 1 Reason for Visit * Diagnostic Imaging (Routine) - Closed Specialty Diagnoses / Procedures Referred By Ignacia manzanares Referred To Contact Diagnoses Chronic obstructive pulmonary disease with acute exacerbation (HCC) Other chest pain Chronic atrial fibrillation (HCC) Procedures XR Chest Pa Lateral 2 Views Violeta Casillas DO Phone: tel: fax: [address] [phone] Referral ID Status Reason Start Date Expiration Date Visits Re quested Visits Authorized [id number] Closed 03/12/2018 09/21/2019 1 1 Encounter Details Date Type Department Care Team (Latest Contact Info) Description 03/12/2018 10:17 AM CDT - 03/12/2018 10:25 AM CDT Hospital Encounter [facility] [address] [place] [phone] Violeta Casillas DO [address] [place] [address] Chronic obstructive pulmonary disease with acute exacerbation (CMS/HCC); Other chest pain; Chronic atrial fibrillation (CMS/HCC) Discharge Disposition: Discharge to home or self care Social History Tobacco Use Types Packs/Day Years Used Date Smoking Tobacco: Former Smokeless Tobacco: Former Alcohol Use Standard Drinks/Week Comments Yes 0 (1 standard drink = 0.6 oz pur e alcohol) Sex and Gender Information Value Date Recorded Sex Assigned at Not on file Legal Sex Male 3:40 AM CHIEF ENGINEER PRODUCTION Gender Identity Not on file Sexual Orientation Not on file documented as of this encounter Medications at Time of Discharge doxycycline (VIBRAMYCIN) 100 mg capsule Take 1 tablet/capsul e (100 mg total) by mouth 2 (two) times a day for 10 days. 20 tablet/capsu le 8 03/22/20 18 inhalational spacing device (AEROCHAMBER WITH FLOWSIGNAL) spacer Use as directed with inhalers 1 each 8 03/13/20 18 predniSONE (DELTASONE) 20 mg tablet Take 1 tablet (20 mg total) by mouth 2 (two) times a day with breakfast and lunch for 5 days. 10 tablet 8 03/17/20 18 acetaminophen ER (TYLENOL) 650 mg 8 hr tablet Take 1-2 tablets (650-1,300 mg total) by mouth every 8 (eight) hours as needed for pain, fever or headaches. 30 tablet 8 02/05/20 19 albuterol HFA (PROAIR HFA) 90 mcg/actuation inhaler Inhale 2 puffs every 4 (four) hours as needed for wheezing or shortness of breath. 8.5 g 8 02/05/20 19 amitriptyline (ELAVIL) 10 mg tablet TAKE 1 TABLET BY MOUTH AT BEDTIME 30 tablet 8 03/31/20 18 lovastatin (MEVACOR) 20 mg tabletIndications:Pure hypercholesterolemia Take 2 tablets (40 mg total) by mouth nightly. 180 tablet 1 8 05/06/20 18 senna (SENOKOT) 8.6 mg tabletIndications:Chronic idiopathic constipation Take 1 tablet by mouth daily as needed for constipation. 8 09/18/19 21 warfarin (COUMADIN) 1 mg tablet TAKE 2 TABLETS BY MOUTH ONCE DAILY DIRECTED BASED ON ROUTINE INR MEASUREMENT. CURRENTLY ON 7MG DAILY 60 tablet 2 8 06/19/20 18 warfarin (COUMADIN) 5 mg tablet TAKE ONE TABLET BY MOUTH AT BEDTIME *TAKE WITH TWO 1 MG TABLETS TO EQUAL 7 MG AT BEDTIME* 30 tablet 6 8 05/24/20 18 documented as of this encounter Discharge Disposition Disposition Code Departure Means Destination Discharge to home or self care documented in this encounter Progress Notes * Kendra Dickerson - 03/12/2018 11:35 AM CDT Pt notified and setting up appt with dr solorio documented in this encounter Plan of Treatment Not on file documented as of this encounter Procedures Procedure Name Priority Date/Time Associated Diagnosis Comments XR CHEST PA LATERAL 2 VIEWS Schedule JERONIMO, Read JERONIMO (Appt Today, Awaiting Results) 03/12/2018 10:24 AM CDT Chronic obstructive pulmonary disease with acute exacerbation (CMS/HCC) Other chest pain Chronic atrial fibrillation (CMS/HCC) documented in this encounter Results * XR [...] COPD. Electronically signed by: Corey Garcia MD us Violeta Casillas DO IMG XR PROCEDURES Final Result documented in this encounter Visit Diagnoses Diagnosis Chronic obstructive pulmonary disease with acute exacerbation (HCC) Other chest pain Chronic atrial fibrillation (HCC) Atrial fibrillation documented in this encounter Care Teams Pretzel Twisting Machine Operator Relationship Specialty Start Date End Date Violeta Casillas DO PCP - General 09/29/16 09/15/21 documented as of this encounter
--- OUTSIDE RECORDS SUMMARY | 2024-07-09 02:21 | XMS_ITS | Encounter Summary ---
Author Organization [facility] Address [address] [facility] [address] [place] [address] Care Team Providers Care Industrial Green Systems Designer Name Role Phone Violeta Casillas Primary Care Provider + Encounter Details Date Type Department Care Team (Late st Contact Info) Description 06/11/2017 8:15 AM PACKAGE MAKER Lab Medical [facility] [address] [facility] Hyperlipidemia, unspecified hyperlipidemia type (Primary Dx) Social History Tobacco Use Types Packs/Day Years Used Date Smoking Tobacco: Former Alcohol Use Standard Drinks/Week Comments Yes 0 (1 standard drink = 0.6 oz pur e alcohol) Sex and Gender Information Value Date Recorded Sex Assigned at Not on file Legal Sex Male 3:40 AM PACKAGE MAKER Gender Identity Not on file Sexual Orientation Not on file documented as of this encounter Plan of Treatment Not on file documented as of this encounter Procedures Procedure Name Priority Date/Time Associated Diagnosis Comments LIPID PANEL Routine 06/11/2017 8:24 AM PACKAGE MAKER Hyperlipidemia, unspecified hyperlipidemia type COMPREHENSIVE METABOLIC PANEL Routine 06/11/2017 8:24 AM PACKAGE MAKER Hyperlipidemia, unspecified hyperlipidemia type documented in this encounter Results * Lipid panel (06/11/2017 8:24 AM PACKAGE MAKER) Cholesterol 133 <200 mg/dL [facility] [place] HDL 42 >40 mg/dL [facility] [place] Triglycerides 121 <150 mg/dL [facility] [place] LDL 71 mg/dL (calc) [facility] [place] Comment: Reference range: <100 Desirable range <100 mg/dL for patients with CHD or diabetes and <70 mg/dL for diabetic patients with known heart disease. LDL-C is now calculated using the Damon calculation, which is a validated novel method providing better accuracy than the Friedewald equation in the estimation of LDL-C. Sin PERALES et al. SONA. 2013;310(19): 3391-8594 (http://education.[employer]/faq/CQT345) Chol/HDL ratio 3.2 <5.0 (calc) [facility] [place] Non-HDL, (LDL+VLDL) 91 <130 mg/dL (calc) [facility] [place] Comment: For patients with diabetes plus 1 major ASCVD risk factor, treating to a non-HDL-C goal of <100 mg/dL (LDL-C of <70 mg/dL) is considered a therapeutic option. Blood specimen (specimen) 06/11/2017 8:24 AM PACKAGE MAKER 06/12/2017 3:00 AM PACKAGE MAKER Narrative Resulting Agency Comment Performing Organization Information: ?Site ID: [place] ?Name: [facility] ?Address: [address] [place] [address] [place] [address] ?Director: Gomez Sánchez D.O., MPH Violeta Casillas DO LAB BLOOD ORDERABLES Fin al Result [facility] [place], [place] * (ABNORMAL) Comprehensive metabolic panel (06/11/2017 8:24 AM PACKAGE MAKER) Glucose 115(H) 65 - 99 mg/dL [facility] [employer] Comment: ? Fasting reference interval For someone without known diabetes, a glucose value between 100 and 125 mg/dL is consistent with prediabetes and should be confirmed with a follow-up test. BUN 18 7 - 25 mg/dL [facility] Creatinine 1.00 0.70 - 1.11 mg/dL [facility] Comment: For patients >49 years of age, the reference limit for Creatinine is approximately 13% higher for people identified as -Hungarian. eGFR NON-AFR. GEORGIAN 70 > OR = 60 mL/min/[address] [facility] [place] EGFR 81 > OR = 60 mL/min/1 .73m2 [facility] [place] BUN/creat ratio NOT APPLICABLE 6 - 22 (calc) [facility] [place] Sodium 141 135 - 146 mmol/L [facility] [place] Potassium, pl 4.8 3.5 - 5.3 mmol/L [facility] [place] Chloride 107 98 - 110 mmol/L [facility] [place] CO2 27 20 - 31 mmol/L [facility] [place] Calcium 9.5 8.6 - 10.3 mg/dL [facility] [place] Protein, sr 6.9 6.1 - 8.1 g/dL [facility] [place] Albumin 4.2 3.6 - 5.1 g/dL [facility] [place] GLOBULIN 2.7 1.9 - 3.7 g/dL (calc) [facility] [place] Alb/glob ratio 1.6 1.0 - 2.5 (calc) [facility] [place] Bilirubin, total 0.6 0.2 - 1.2 mg/dL [facility] [place] Alk phos 101 40 - 115 U/L [facility] [place] AST 16 10 - 35 U/L [facility] [place] ALT (SGPT) 14 9 - 46 U/L [facility] [place] Blood specimen (specimen) 06/11/2017 8:24 AM PACKAGE MAKER 06/12/2017 3:00 AM PACKAGE MAKER Narrative Resulting Agency Comment Performing Organization Information: ?Site ID: [place]NA ?Name: [facility] ?Address: [address] [id number] ?Director: Gomez Sánchez D.O., MPH us Violeta Casillas DO LAB BLOOD ORDERABLES Fin al Result [facility] [place] documented in this encounter Visit Diagnoses Diagnosis Hyperlipidemia, unspecified hyperlipidemia type- Primary documented in this encounter Care Teams Industrial Green Systems Designer Relationship Specialty Start Date End Date Violeta Casillas DO PCP - General 09/29/16 09/15/21 documented as of this encounter
--- OUTSIDE RECORDS SUMMARY | 2024-07-09 02:21 | XMS_ITS | Encounter Summary ---
Author Organization [facility] Address [address] [facility] [address] [place] [address] Care Team Providers Care Senior Hardware Design Engineer Name Role Phone Violeta Casillas DO Primary Care Provider + Encounter Details Date Type Department Care Team (Late st Contact Info) Description 09/04/2017 Telephone Medical [facility] [address] [place] [address] Ruth Hankins LPN Social History Tobacco Use Types Packs/Day Years Used Date Smoking Tobacco: Former Alcohol Use Standard Drinks/Week Comments Yes 0 (1 standard drink = 0.6 oz pur e alcohol) Sex and Gender Information Value Date Recorded Sex Assigned at Not on file Legal Sex Male 3:40 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 Pt to keep same dosage of coumadin. Pt verbalized understanding. TBAND MAKER documented in this encounter Plan of Treatment Not on file documented as of this encounter Visit Diagnoses Not on filedocumented in this encounter Care Teams Senior Hardware Design Engineer Relationship Specialty Start Date End Date Violeta Casillas DO PCP - General 09/29/16 09/15/21 documented as of this encounter
--- OUTSIDE RECORDS SUMMARY | 2024-07-09 02:21 | XMS_ITS | Encounter Summary ---
Author Organization [facility] Address [address] [facility] [address] [place] [address] Care Team Providers Care Open Hearth Melter Name Role Phone Violeta Casillas DO Primary Care Provider + Spring Banerjee RN Unavailable [phone] Dayana MarinaW Unavailable [phone] Encounter Details Date Type Department Care Team (Late st Contact Info) Description 05/16/2017 Orders Only [facility] [address] [place] [address] Brandy Alas, DYLAN [address] [place] [address] Social History Tobacco Use Types [...] often do you attend chur ch or tenriism services? 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 Gender Identity Not on file Sexual Orientation Not on file documented as of this encounter Plan of Treatment Not on file documented as of this encounter Visit Diagnoses Not on filedocumented in this encounter Care Teams Open Hearth Melter Relationship Specialty Start Date End Date Violeta Casillas DO PCP - General 09/29/16 09/15/21 Spring Banerjee RN [address] [place], [place] [id number] Mobile Sales Technician 05/07/20 12/29/20 Dayana Marina LCSW [address] [place] [address] Horse Show Judge 05/10/20 05/25/20 documented as of this encounter
--- OUTSIDE RECORDS SUMMARY | 2024-07-09 02:21 | XMS_ITS | Encounter Summary ---
Author Organization [facility] Medical [facility] Address [address] [address] Care Team Providers Care Client Technical Specialist Name Role Phone Violeta Casillas DO Primary Care Provider + Reason for Visit * Reason Comments Follow-up labs Encounter Details Date Type Department Care Team (Latest Contact Info) Description 06/18/2017 1:15 PM SODA FLAKER [facility] Visit [facility] [address] [place] [address] Violeta Casillas DO [address] [place] [address] Pure hypercholesterolemia (Primary Dx); Flu vaccine need; Chronic atrial fibrillation (CMS/HCC); Mild episode of recurrent major depressive disorder (CMS/HCC); Skin lesion of hand; Prediabetes Social History Tobacco Use Types Packs/Day Years Used Date Smoking Tobacco: Former Alcohol Use Standard Drinks/Week Comments Yes 0 (1 standard drink = 0.6 oz pur e alcohol) Sex and Gender Information Value Date Recorded Sex Assigned at Not on file Legal Sex Male 3:40 AM SODA FLAKER Gender Identity Not on file Sexual Orientation Not on file documented as of this encounter Last Filed Vital Signs Vital Sign Reading Time Taken Comments Blood Pressure 132/80 06/18/2017 1:00 PM SODA FLAKER Pulse 86 06/18/2017 1:00 PM SODA FLAKER Temperature - - Respiratory Rate 18 06/18/2017 1:00 PM SODA FLAKER Oxygen Saturation 95% 06/18/2017 1:00 PM SODA FLAKER Inhaled Oxygen Concentration - - Weight 72.6 kg (160 lb) 06/18/2017 1:00 PM SODA FLAKER Height 182.9 cm (6' 0.01 ) 06/18/2017 1:00 PM CS T Body Mass Index 21.7 06/18/2017 1:00 PM SODA FLAKER documented in this encounter Progress Notes * Violeta Casillas, DO - 06/18/2017 1:15 PM CST Images from the original note were not included. Subjective/Objective Patient ID: Noé Davila is a 81 y.o. male. Chief Complaint Follow-up (labs) Vitals: 06/18/17 1300 BP: 132/80 Pulse: 86 Resp: 18 SpO2: 95% Weight: 72.6 kg (160 lb) Height: 182.9 cm (6' 0.01 ) Body mass index is 21.7 kg/m??. Noé Davila is here for chronic [...] deficit. Skin: No rash noted. No erythema. 2 hard raised skin/white colored lesions. Psychiatric: He has a normal mood and affect. His behavior is normal. Nursing note and vitals reviewed. Assessment/Plan Diagnoses and all orders for this visit: Pure hypercholesterolemia (Primary) Assessment & Plan: Chronic & stable on meds. Continue current treatment. Orders: - Comprehensive metabolic panel; Future - Lipid panel; Future Flu vaccine need - Fluzone high dose, split Trivalent PF 65 yrs & older IM Chronic atrial fibrillation (CMS/HCC) Assessment & Plan: Chronic & stable on meds. Continue current treatment. INRs are stable. Mild episode of recurrent major depressive disorder (CMS/HCC) Assessment & Plan: Chronic & stable on meds. Continue current treatment. Skin lesion of hand Assessment & Plan: These look like a type of squamous cancer so will consult dermatology. He also may have other AKs present. Orders: - Ambulatory referral to Dermatology; Future Prediabetes Assessment & Plan: Please cut down on sweets. Orders: - Comprehensive metabolic panel; Future BMI Follow-up includes: education provided. Orders Placed This Encounter ? ? Fluzone high dose, split Trivalent PF 65 yrs & older IM ??? Comprehensive metabolic panel Standing Status: Future Standing Expiration Date: 06/18/2018 ??? Lipid panel Standing Status: Future Standing Expiration Date: 06/18/2018 ??? Ambulatory referral to Dermatology Standing Status: Future Standing Expiration Date: 12/17/2017 Referral Priority: Routine Referral Type: Consultation Referral Reason: Specialty Services Required Requested Specialty: Dermatology Number of Visits Requested: 1 FLAKER documented in this encounter Miscellaneous Notes * Assessment & Plan Note - Violeta Casillas DO - 06/18/2017 1:27 PM SODA FLAKER Associated Problem(s): Chronic atrial fibrillation (HCC) Chronic & stable on meds. Continue current treatment. INRs are stable. FLAKER * Assessment & Plan Note - Violeta Casillas DO - 06/18/2017 1:26 PM SODA FLAKER Associated Problem(s): Recurrent major depressive disorder (HCC) Chronic & stable on meds. Continue current treatment. FLAKER * Assessment & Plan Note - Violeta Casillas DO - 06/18/2017 1:26 PM SODA FLAKER Associated Problem(s): Prediabetes Please cut down on sweets. FLAKER * Assessment & Plan Note - Violeta Casillas DO - 06/18/2017 1:26 PM SODA FLAKER Associated Problem(s): Pure hypercholesterolemia Chronic & stable on meds. Continue current treatment. FLAKER * Assessment & Plan Note - Violeta Casillas DO - 06/18/2017 1:20 PM SODA FLAKER Associated Problem(s): Skin lesion of hand (Resolved 12/17/2017) These look like a type of squamous cancer so will consult dermatology. He also may have other AKs present. FLAKER * Addendum Note - Donte Galdamez CLT - 06/18/2017 1:15 PM CSTAddended by: DONTE GALDAMEZ on: 12/10/2017 09:49 AM Modules accepted: Orders documented in this encounter Plan of Treatment Not on file documented as of this encounter Procedures Procedure Name Priority Date/Time Associated Diagnosis Comments LIPID PANEL Routine 12/10/2017 9:25 AM CDT Pure hypercholesterolemia COMPREHENSIVE METABOLIC PANEL Routine 12/10/2017 9:25 AM CDT Pure hypercholesterolemia Prediabetes documented in this encounter Results * Lipid panel (12/10/2017 9:25 AM CDT) Cholesterol 131 <200 mg/dL [facility] [place] HDL 44 >40 mg/dL [facility] [place] Triglycerides 97 <150 mg/dL [facility] [place] LDL 69 mg/dL (calc) [facility] [place] Comment: Reference range: <100 Desirable range <100 mg/dL for primary prevention; ?? <70 mg/dL for patients with CHD or diabetic patients with > or = 2 CHD risk factors. LDL-C is now calculated using the Damon calculation, which is a validated novel method providing better accuracy than the Friedewald equation in the estimation of LDL-C. Sin PERALES et al. SONA. 2013;310(92): 6733-3047 (http://education.[employer]/faq/NCT766) Chol/HDL ratio 3.0 <5.0 (calc) [facility] [place] Non-HDL, (LDL+VLDL) 87 <130 mg/dL (calc) [facility] Comment: For patients with diabetes plus 1 major ASCVD risk factor, treating to a non-HDL-C goal of <100 mg/dL (LDL-C of <70 mg/dL) is considered a therapeutic option. Blood specimen (specimen) 12/10/2017 9:25 AM CDT 12/11/2017 5:41 AM CDT Narrative Resulting Agency Comment Performing Organization Information: ?Site ID: [place] ?Name: [facility] ?Address: [address] [id number] ?Director: Gomez Sánchez D.O., MPH us Violeta Casillas DO LAB BLOOD ORDERABLES Fin al Result [facility] [place] * (ABNORMAL) Comprehensive metabolic panel (12/10/2017 9:25 AM CDT) Glucose 106(H) 65 - 99 mg/dL [facility] Comment: ? Fasting reference interval For someone without known diabetes, a glucose value between 100 and 125 mg/dL is consistent with prediabetes and should be confirmed with a follow-up test. BUN 27(H) 7 - 25 mg/dL [facility] Creatinine 0.96 0.70 - 1.11 mg/dL [facility] Comment: For patients >49 years of age, the reference limit for Creatinine is approximately 13% higher for people identified as -Paraguayan. eGFR NON-AFR. BERMUDIAN 73 > OR = 60 mL/min/1. 73m2 [facility] [place] EGFR 85 > OR = 60 mL/min/1. 73m2 [facility] [place] BUN/creat ratio 28(H) 6 - 22 (calc) [facility] [place] Sodium 141 135 - 146 mmol/L [facility] [place] Potassium, pl 4.0 3.5 - 5.3 mmol/L [facility] [place] Chloride 111(H) 98 - 110 mmol/L [facility] [place] CO2 22 20 - 31 mmol/L [facility] [place] Calcium 9.2 8.6 - 10.3 mg/dL [facility] [place] Protein, sr 6.6 6.1 - 8.1 g/dL [facility] [place] Albumin 4.1 3.6 - 5.1 g/dL [facility] [place] GLOBULIN 2.5 1.9 - 3.7 g/dL (calc) [facility] [place] Alb/glob ratio 1.6 1.0 - 2.5 (calc) [facility] [place] Bilirubin, total 1.0 0.2 - 1.2 mg/dL [facility] [place] Alk phos 91 40 - 115 U/L [facility] [place] AST 18 10 - 35 U/L [facility] [place] ALT (SGPT) 13 9 - 46 U/L [facility] [place] Blood specimen (specimen) 12/10/2017 9:25 AM CDT 12/11/2017 5:41 AM CDT Narrative Resulting Agency Comment Performing Organization Information: ?Site ID: [place] ?Name: [facility] ?Address: [address] [facility] [place] [id number] ?Director: Gomez Sánchez D.O., MPH Violeta Casillas DO LAB BLOOD ORDERABLES Fin al Result [facility] - [place] A[place] documented in this encounter Visit Diagnoses Diagnosis Pure hypercholesterolemia- Primary Flu vaccine need Chronic atrial fibrillation (HCC) Atrial fibrillation Mild episode of recurrent major depressive disorder (HCC) Skin lesion of hand Unspecified disorder of skin and subcutaneous tissue Prediabetes Other abnormal glucose documented in this encounter Discontinued Medications Medication Sig Discontinue Reason Start Date End Da te nitroglycerin (NITROSTAT) 0.4 mg SL tablet put 1 tab under tongue for chest pain; repeat every 5 min until relief; call 911 if 3 tabs needed or 15 min of chest pain 2015 06/18/2017 documented as of this encounter Orders Immunization/Injection Count Last Ordered Date First Ordered Date FLU VACCINE HIGH DOSE SPLIT PRESERV FREE IM 1 06/18/2017 documented in this encounter Care Teams Client Technical Specialist Relationship Specialty Start Date End Date Violeta Casillas DO PCP - General 09/29/16 09/15/21 documented as of this encounter
--- OUTSIDE RECORDS SUMMARY | 2024-07-09 02:21 | XMS_ITS | Encounter Summary ---
Author Organization [facility] Medical [facility] Address [address] [facility] [address] [place] [address] Care Team Providers Care Mold Maker Plastic Molds Name Role Phone Violeta Casillas DO Primary Care Provider + Encounter Details Date Type Department Care Team (Late st Contact Info) Description 04/02/2018 Telephone [facility] [address] [place] [address] Violeta Casillas DO [address] [place] [address] Social History Tobacco Use Types Packs/Day Years Used Date Smoking Tobacco: Former Smokeless Tobacco: Former Alcohol Use Standard Drinks/Week Comments Yes 0 (1 standard drink = 0.6 oz pur e alcohol) Sex and Gender Information Value Date Recorded Sex Assigned at Not on file 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 Gender Identity Not on file Sexual Orientation Not on file documented as of this encounter Miscellaneous Notes * Telephone Encounter - Kendra Dickerson - 04/02/2018 1:45 PM CDT Pt stopped by office and he wants his pharmacy changed to [facility] here in [place] since they now[facility] in [facility] documented in this encounter Plan of Treatment Not on file documented as of this encounter Visit Diagnoses Not on filedocumented in this encounter Care Teams Mold Maker Plastic Molds Relationship Specialty Start Date End Date Violeta Casillas DO PCP - General 09/29/16 09/15/21 documented as of this encounter
--- OUTSIDE RECORDS SUMMARY | 2024-07-09 02:21 | XMS_ITS | Encounter Summary ---
Author Organization [facility] Medical [facility] Address [address] [facility] [address] [place] [address] Care Team Providers Care Lamination Builder Name Role Phone Violeta Casillas DO Primary Care Provider + Encounter Details Date Type Department Care Team (Late st Contact Info) Description 11/07/2017 Telephone Medical [facility] [address] [place] [address] Ruth Hankins LPN Social History Tobacco Use Types Packs/Day Years Used Date Smoking Tobacco: Former Alcohol Use Standard Drinks/Week Comments Yes 0 (1 standard drink = 0.6 oz pur e alcohol) Sex and Gender Information Value Date Recorded Sex Assigned at Not on file Legal 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 Patient told recheck everyweek. * Telephone Encounter - Ruth Farmer LPN - 11/07/2017 8:57 AM CDT Call from [facility] to report abnormal INR of 1.5 Results also received via fax documented in this encounter Plan of Treatment Not on file documented as of this encounter Visit Diagnoses Not on filedocumented in this encounter Care Teams Lamination Builder Relationship Specialty Start Date End Date Violeta Casillas DO PCP - General 09/29/16 09/15/21 documented as of this encounter
--- OUTSIDE RECORDS SUMMARY | 2024-07-09 02:21 | XMS_ITS | Encounter Summary ---
Author Organization [facility] Address [address] [facility] [address] [place] [address] Care Team Providers Care Skin Diver Name Role Phone Violeta Casillas DO Primary Care Provider + Encounter Details Date Type Department Care Team (Late st Contact Info) Description 09/13/2017 Telephone [facility] [address] [place] [address] Violeta Casillas DO [address] [place] [address] Social History Tobacco Use Types Packs/Day Years Used Date Smoking Tobacco: Former Alcohol Use Standard Drinks/Week Comments Yes 0 (1 standard drink = 0.6 oz pur e alcohol) Sex and Gender Information Value Date Recorded Sex Assigned at Not on file Legal 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 Reorder 12/13/2016 09/13/2017 documented as of this encounter Care Teams Skin Diver Relationship Specialty Start Date End Date Violeta Casillas DO PCP - General 09/29/16 09/15/21 documented as of this encounter
--- OUTSIDE RECORDS SUMMARY | 2024-07-09 02:21 | XMS_ITS | Encounter Summary ---
Author Organization [facility] Medical Group Address [address] [facility] [address] [place] [address] Care Team Providers Care Manager Cardiology Name Role Phone Violeta Casillas DO Primary Care Provider + Reason for Visit * Reason Comments Follow-up tremors getting wors e Encounter Details Date Type Department Care Team (Late st Contact Info) Description 12/13/2016 2:15 PM CDT [facility] [address] [place] [address] Violeta Casillas DO [address] [place] [address] Recurrent major depressive disorder, remission status unspecified (CMS/HCC) (Primary Dx); Chronic atrial fibrillation (CMS/HCC); Chronic obstructive pulmonary disease, unspecified COPD type (CMS/HCC); Pure hypercholesterolemia; Chronic idiopathic constipation Social History Tobacco Use Types Packs/Day Years Used Date Smoking Tobacco: Former Alcohol Use Standard Drinks/Week Comments Yes 0 (1 standard drink = 0.6 oz pur e alcohol) Sex and Gender Information Value Date Recorded Sex Assigned at Not on file Legal Sex Male 3:40 AM PARTS ROOM CLERK Gender Identity Not on file Sexual Orientation Not on file documented as of this encounter Last Filed Vital Signs Vital Sign Reading Time Taken Comments Blood Pressure 132/78 12/13/2016 2:08 PM CDT Pulse 68 12/13/2016 2:08 PM CDT Temperature - - Respiratory Rate 16 12/13/2016 2:08 PM CDT Oxygen Saturation 91% 12/13/2016 2:08 PM CDT Inhaled Oxygen Concentration - - Weight 72.6 kg (160 lb) 12/13/2016 2:08 PM CDT Height 182.9 cm (6' 0.01 ) 12/13/2016 2:08 PM CD T Body Mass Index 21.7 12/13/2016 2:08 PM CDT documented in this encounter Patient Instructions * Patient Instructions* Violeta Casillas DO - 12/13/2016 2:15 PM CDT Try to eat more fruits and tree nuts on a regular basis. Also trying to get 1 daily serving of green vegetables every night can be helpful and it would also help keep your INR readings controlled better with less variation. Berries and cherries are preferred fruits but apples, bananas, and pears are also good. documented in this encounter Ordered Prescriptions Prescription Sig Dispense Quantity Refills Last Filled Start Date End Date lovastatin (MEVACOR) 20 mg tabletIndications:Pure hypercholesterolemia Take 2 tablets (40 mg total) by mouth nightly. 180 tablet 1 7 09/14/19 18 lovastatin (MEVACOR) 20 mg tablet Take 2 tablets (40 mg total) by mouth nightly. 180 tablet 1 7 12/14/19 17 documented in this encounter Progress Notes * Violeta Casillas, - 12/13/2016 2:15 PM CDT Subjective/Objective Patient ID: Noé Davila is a 81 y.o. male. Chief Complaint Follow-up (tremors getting worse) Vitals: 12/13/16 1408 BP: 132/78 BP Location: Right arm Patient Position: Sitting Pulse: 68 Resp: 16 SpO2: 91% Weight: 72.6 kg (160 lb) Height: 182.9 cm (6' 0.01 ) Body mass index is 21.7 kg/m??. Patient is tolerating all prescribed meds well without any reported side effects or intolerances. Patient says that he has some MALDONADO but says that inhalers haven't helped in the past. He isn't eating a routine diet and that could be affecting his INR readings. Review of Systems Constitutional: Negative for fatigue and fever. Respiratory: Negative for cough and shortness of breath (MALDONADO). Cardiovascular: Negative for chest pain and palpitations. Gastrointestinal: Negative for diarrhea, nausea and vomiting. Physical Exam Constitutional: He is oriented to person, place, and time. He appears well- developed and well-nourished. No distress. HENT: Head: Normocephalic and atraumatic. Eyes: Conjunctivae are normal. Cardiovascular: Normal rate and regular rhythm. Exam reveals no gallop and no friction rub. Murmur heard. Pulmonary/Chest: Effort normal and [...] Diagnoses and all orders for this visit: 1. Recurrent major depressive disorder, remission status unspecified ([facility]/HCC) (Primary) Assessment & Plan: Doing well with current treatment program and medications. No changes today 2. Chronic atrial fibrillation ([facility]/HCC) Assessment & Plan: INR waxes and wanes a lot so had discussion about eating a consistent diet. Continue warfarin and weekly INR checks. 3. Chronic obstructive pulmonary disease, unspecified COPD type ([facility]) Assessment & Plan: Patient refuses medications so no change in treatment. 4. Pure hypercholesterolemia Assessment & Plan: Doing well with current treatment program and medications. No changes today Orders: - lovastatin (MEVACOR) 20 mg tablet; Take 2 tablets (40 mg total) by mouth nightly. 5. Chronic idiopathic constipation Assessment & Plan: Eat more vegetables and fruits. Orders Placed This Encounter ??? DISCONTD: lovastatin (MEVACOR) 20 mg tablet Sig: Take 2 tablets (40 mg total) by mouth nightly. Dispense: 180 tablet Refill: 1 ??? lovastatin (MEVACOR) 20 mg tablet Sig: Take 2 tablets (40 mg total) by mouth nightly. Dispense: 180 tablet Refill: 1 documented in this encounter Miscellaneous Notes * Assessment & Plan Note - Violeta Casillas DO - 12/13/2016 3:07 PM CDT Associated Problem(s): Chronic idiopathic constipation Eat more vegetables and fruits. * Assessment & Plan Note - Violeta Casillas DO - 12/13/2016 3:06 PM CDT Associated Problem(s): Chronic atrial fibrillation (HCC) INR waxes and wanes a lot so had discussion about eating a consistent diet. Continue warfarin and weekly INR checks. * Assessment & Plan Note - Violeta Casillas DO - 12/13/2016 3:05 PM CDT Associated Problem(s): Chronic obstructive pulmonary disease (HCC) Patient refuses medications so no change in treatment. * Assessment & Plan Note - Violeta Casillas DO - 12/13/2016 3:05 PM CDT Associated Problem(s): Pure hypercholesterolemia Doing well with current treatment program and medications. No changes today * Assessment & Plan Note - Violeta Casillas DO - 12/13/2016 3:05 PM CDT Associated Problem(s): Recurrent major depressive disorder (HCC) Doing well with current treatment program and medications. No changes today documented in this encounter Plan of Treatment Not on file documented as of this encounter Visit Diagnoses Diagnosis Recurrent major depressive disorder, remission status unspecified (HCC)- Primary Chronic atrial fibrillation (HCC) Atrial fibrillation Chronic obstructive pulmonary disease, unspecified COPD type (HCC) Pure hypercholesterolemia Chronic idiopathic constipation Unspecified constipation documented in this encounter Discontinued Medications Medication Sig Discontinue Reason Start Date End Da te lovastatin (MEVACOR) 20 mg tablet TAKE TWO TABLETS BY MOUTH ONCE DAILY IN THE EVENING WITH MEAL Reorder 11/12/2014 12/13/2016 lovastatin (MEVACOR) 20 mg tablet Take 2 tablets (40 mg total) by mouth nightly. Reorder 12/13/2016 12/13/2016 documented as of this encounter Care Teams Manager Cardiology Relationship Specialty Start Date End Date Violeta Casillas DO PCP - General 09/29/16 09/15/21 documented as of this encounter
--- OUTSIDE RECORDS SUMMARY | 2024-07-09 02:21 | XMS_ITS | Encounter Summary ---
Author Organization [facility] Healthcare Address [address] [place] [address] Care Team Providers Care Rn Palliative Name Role Phone Violeta Casillas DO Primary Care Provider + Reason for Referral * (Routine) - Closed Specialty Diagnoses / Procedures Referred By Contac t Referred To Contact Diagnoses Other chest pain Procedures ECG 12 lead Violeta Casillas DO Phone: tel: fax: [address] [phone] Referral ID Status Reason Start Date Expiration Date Visits Re quested Visits Authorized [id number] Closed 03/12/2018 09/21/2019 1 1 Reason for Visit * (Routine) - Closed Specialty Diagnoses / Procedures Referred By Contac t Referred To Contact Diagnoses Other chest pain Procedures ECG 12 lead Violeta Casillas DO Phone: tel: fax: [address] [phone] Referral ID Status Reason Start Date Expiration Date Visits Re quested Visits Authorized [id number] Closed 03/12/2018 09/21/2019 1 1 Encounter Details Date Type Department Care Team (Latest Contact Info) Description 03/12/2018 10:26 AM CDT - 03/12/2018 11:59 PM CDT Hospital Encounter [facility] CardioPulmonary [address] [place] [phone] Violeta Casillas, DO [address] [place] [address] Other chest pain Discharge Disposition: Discharge to home or self care Social History Tobacco Use Types Packs/Day Years Used Date Smoking Tobacco: Former Smokeless Tobacco: Former Alcohol Use Standard Drinks/Week Comments Yes 0 (1 standard drink = 0.6 oz pur e alcohol) Sex and Gender Information Value Date Recorded Sex Assigned at Not on file 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 Cricket Millan Ventricular Rate EKG/Min 85 /min [facility] P Wave Duration 104 ms [facility] QRS-Interval (MSEC) 140 ms [facility] NE-Interval (MSEC) 124 ms [facility] QT Interval 385 ms [facility] QTc 428 ms [facility] QTC Interval ms [facility] P [place] 84 deg [facility] QRS [place] 75 deg [facility] T [place] 61 deg [facility] 03/12/2018 10:3 1 AM CDT us Violeta Casillas DO ECG ORDERABLES Final Re sult [facility] documented in this encounter Visit Diagnoses Diagnosis Other chest pain documented in this encounter Care Teams Rn Palliative Relationship Specialty Start Date End Date Violeta Casillas DO PCP - General 09/29/16 09/15/21 documented as of this encounter
--- OUTSIDE RECORDS SUMMARY | 2024-07-09 02:21 | XMS_ITS | Encounter Summary ---
Author Organization [facility] Medical Group Address [address] [facility] [address] [place] [address] Care Team Providers Care Fire Support Specialist Name Role Phone Violeta Casillas DO Primary Care Provider + Encounter Details Date Type Department Care Team (Late st Contact Info) Description 01/07/2018 Telephone Medical [facility] [address] [place] [phone] Ruth Hankins LPN Social History Tobacco Use Types Packs/Day Years Used Date Smoking Tobacco: Former Smokeless Tobacco: Former Alcohol Use Standard Drinks/Week Comments Yes 0 (1 standard drink = 0.6 oz pur e alcohol) Sex and Gender Information Value Date Recorded Sex Assigned at Not on file 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 INR was 1.[address] Casillas is changing coumadin dosage to 7 mg on Sunday and Sunday, 8 mg all other days. documented in this encounter Plan of Treatment Not on file documented as of this encounter Visit Diagnoses Not on filedocumented in this encounter Care Teams Fire Support Specialist Relationship Specialty Start Date End Date Violeta Casillas DO PCP - General 3/31/17 3/17/22 documented as of this encounter
--- OUTSIDE RECORDS SUMMARY | 2024-07-09 02:21 | XMS_ITS | Encounter Summary ---
Author Organization [facility] Medical Group Address [address] [address] Care Team Providers Care Medical Assistant Internal Medicine Name Role Phone Violeta Casillas DO Primary Care Provider + Encounter Details Date Type Department Care Team (Late st Contact Info) Description 03/13/2018 Telephone Medical [facility] [address] [place] [address] Ruth Hankins LPN Social History Tobacco Use Types Packs/Day Years Used Date Smoking Tobacco: Former Smokeless Tobacco: Former Alcohol Use Standard Drinks/Week Comments Yes 0 (1 standard drink = 0.6 oz pur e alcohol) Sex and Gender Information Value Date Recorded Sex Assigned at Not on file 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 Pt verbalized understanding. documented in this encounter Plan of Treatment Not on file documented as of this encounter Visit Diagnoses Not on filedocumented in this encounter Care Teams Medical Assistant Internal Medicine Relationship Specialty Start Date End Date Violeta Casillas DO PCP - General 09/29/16 09/15/21 documented as of this encounter
--- OUTSIDE RECORDS SUMMARY | 2024-07-09 02:21 | XMS_ITS | Encounter Summary ---
Author Organization [facility] Medical Group Address [address] [facility] [address] [place] [address] Care Team Providers Care Waste Handling Technician Name Role Phone Violeta Casillas DO Primary Care Provider + Encounter Details Date Type Department Care Team (Late st Contact Info) Description 03/12/2018 Telephone [facility] [address] [place] [phone] Violeta Casillas DO [address] [place] [address] Social History Tobacco Use Types Packs/Day Years Used Date Smoking Tobacco: Former Smokeless Tobacco: Former Alcohol Use Standard Drinks/Week Comments Yes 0 (1 standard drink = 0.6 oz pur e alcohol) Sex and Gender Information Value Date Recorded Sex Assigned at Not on file 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 The paper is saying the last time he called was 02/05/18. Pt did not answer. I left a vm. documented in this encounter Plan of Treatment Not on file documented as of this encounter Visit Diagnoses Not on filedocumented in this encounter Care Teams Waste Handling Technician Relationship Specialty Start Date End Date Violeta Casillas DO PCP - General 09/29/16 09/15/21 documented as of this encounter
--- OUTSIDE RECORDS SUMMARY | 2024-07-09 02:21 | XMS_ITS | Encounter Summary ---
Author Organization [facility] Medical Group Address [address] [facility] [address] [place] [address] Care Team Providers Care [employer] Resource Teacher Name Role Phone Violeta Casillas DO Primary Care Provider + Reason for Visit * Reason Onset Date Comments Test Results 04/03/2018 echo Encounter Details Date Type Department Care Team (Late st Contact Info) Description 04/03/2018 Telephone [place] [employer] Transport Inspector [address] [place] [address] Rubén Conklin Test Results (echo) Social History Tobacco Use Types Packs/Day Years Used Date Smoking Tobacco: Former Smokeless Tobacco: Former Alcohol Use Standard Drinks/Week Comments Yes 0 (1 standard drink = 0.6 oz pur e alcohol) Sex and Gender Information Value Date Recorded Sex Assigned at Not on file 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 Nothing to be concerned about on this study documented in this encounter Plan of Treatment Not on file documented as of this encounter Visit Diagnoses Not on filedocumented in this encounter Care Teams Middle [employer] Resource Teacher Relationship Specialty Start Date End Date Violeta Casillas DO PCP - General 09/29/16 09/15/21 documented as of this encounter
--- OUTSIDE RECORDS SUMMARY | 2024-07-09 02:21 | XMS_ITS | Encounter Summary ---
Author Organization [facility] Address [address] [address] Care Team Providers Care Business Continuity Consultant Name Role Phone Violeta Casillas DO Primary Care Provider + Reason for Referral * Diagnostic Imaging (Routine) - Closed Specialty Diagnoses / Procedures Referred By Ignacia t Referred To Contact Diagnoses Other chest pain Chronic atrial fibrillation (HCC) Abnormal ECG Procedures NM MPI Stress Test Multiple Studies Samia Torrez MD Phone: tel: fax: [address] [phone] Referral ID Status Reason Start Date Expiration Date Visits Re quested Visits Authorized [id number] Closed 03/29/2018 10/08/2019 5 5 * Diagnostic Imaging (Routine) - Closed Specialty Diagnoses / Procedures [facility] Referred To Contact Cardiology Imaging Diagnoses Other chest pain Chronic atrial fibrillation (HCC) Abnormal ECG Procedures Transthoracic Echo Complete W Doppler/CF Samia Torrez MD Phone: tel: fax: [facility] Medical [facility] Cardiology [address] [place] [phone] Phone: tel: fax: Referral ID Status Reason Start Date Expiration Date Visits Re quested Visits Authorized [id number] Closed 03/29/2018 10/08/2019 1 1 Reason for Visit * Reason Comments Atrial Fibrillation Chest Pain Encounter Details Date Type Department Care Team (Late st Contact Info) Description 03/29/2018 1:30 PM CDT Office Visit [facility] [address] [place] [address] Samia Torrez MD [address] [place] [address] [place] [address] Other chest pain (Primary Dx); Chronic atrial fibrillation (CMS/HCC); Pure hypercholesterolemia; Abnormal ECG Social History Tobacco Use Types Packs/Day Years Used Date Smoking Tobacco: Former Smokeless Tobacco: Former Alcohol Use Standard Drinks/Week Comments Yes 0 (1 standard drink = 0.6 oz pur e alcohol) Sex and Gender Information Value Date Recorded Sex Assigned at Not on file 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 Gender Identity Not on file Sexual Orientation Not on file documented as of this encounter Last Filed Vital Signs Vital Sign Reading Time Taken Comments Blood Pressure 110/50 03/29/2018 1:22 PM CDT Pulse 76 03/29/2018 1:22 PM CDT Temperature - - Respiratory Rate 16 03/29/2018 1:22 PM CDT Oxygen Saturation 92% 03/29/2018 1:22 PM CDT Inhaled Oxygen Concentration - - Weight 68.5 kg (151 lb) 03/29/2018 1:22 PM CDT Height 185.4 cm (6' 1 ) 03/29/2018 1:22 PM CDT Body Mass Index 19.92 03/29/2018 1:22 PM CDT documented in this encounter Progress Notes * Samia Torrez MD - 03/29/2018 1:30 PM CDT Images from the original note were not included. Subjective/Objective Patient ID: Noé Cowan is a 82 y.o. male. Chief Complaint Atrial Fibrillation and Chest Pain BP 110/50 Pulse 76 Resp 16 Ht 185.4 cm (6' 1 ) Wt 68.5 kg (151 lb) SpO2 92% BMI 19.92 kg/m?? This 82 years old gentleman is being seen for evaluation of chest pain. Patient has history of chronic atrial fibrillation and hyperlipidemia. Patient suffered from bronchitis with productive cough, shortness of breath and wheezing is in early March 2018. He had a 24 hr history of left-sided chest aching around 03/11/2018. His chest pain was constant and could be aggravated by body movement. Chest film showed COPD. ECG on 03/12/2018 revealed the sinus rhythm, right bundle branch block and nonspecific ST abnormality. He was treated with doxycycline and steroid and his symptoms of productive cough, dyspnea and chest pain did improve gradually and nicely. He is currently chest pain-free. He denies any symptoms of palpitation, dizziness, syncope, orthopnea, PND, claudication or pedal edema. 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 He quit smoking 12 years ago Review of Systems Constitutional: Negative for chills, fatigue and fever. HENT: Negative for ear pain, hearing loss, sinus pain, sore throat and tinnitus. Eyes: Negative for visual disturbance. Respiratory: Positive for shortness of breath. Negative for apnea, cough, chest tightness and wheezing. Cardiovascular: Positive for chest pain. Negative for palpitations and leg swelling. Gastrointestinal: Negative for abdominal distention, abdominal pain, diarrhea and vomiting. Endocrine: Negative for cold intolerance, heat intolerance and polyuria. Genitourinary: Negative for difficulty urinating, dysuria, frequency and hematuria. Musculoskeletal: Negative for arthralgias and myalgias. Allergic/Immunologic: Negative for food allergies. Neurological: Negative for dizziness, tremors, syncope, speech difficulty, light-headedness and headaches. Psychiatric/Behavioral: Negative for behavioral problems and confusion. Physical Exam Constitutional: He is oriented to person, place, and time. He appears well- developed and well-nourished. HENT: Head: Normocephalic and atraumatic. Eyes: Conjunctivae and EOM are normal. Neck: Normal range of motion. Neck supple. Cardiovascular: Normal rate, regular rhythm, S1 normal, S2 normal and intact distal pulses. PMI is not displaced. Exam reveals no gallop, no S3, no S4 and no friction rub. No murmur heard. Pulmonary/Chest: Effort normal and breath sounds normal. He has no wheezes. He has no rales. He exhibits no tenderness. Abdominal: Soft. Normal appearance and bowel sounds are normal. There is no tenderness. Musculoskeletal: Normal range of motion. He exhibits no edema. Neurological: He is alert and oriented to person, place, and time. No cranial nerve deficit. Skin: Skin is warm and dry. Assessment/Plan Diagnoses and all orders for this visit: Other chest pain (Primary) Assessment & Plan: Atypical in nature. Due to the presence of chest pain and abnormal ECG, echocardiogram and Lexiscannuclear stress test will be obtained for further evaluation. Orders: - Transthoracic Echo Complete W Doppler/CF; Future - NM MPI Stress Test Multiple Studies; Future - ECG 12 lead Chronic atrial fibrillation (CMS/HCC) Assessment & Plan: Probably paroxysmal atrial fibrillation. EKG on 03/12/2018 was reviewed and showed sinus rhythm, right bundle branch block and nonspecific ST-T abnormality. ECG today reveals sinus rhythm, right bundle branch block and minor ST-T abnormality. After discussion, echocardiogram will be obtained for further cardiac evaluation. Orders: - Transthoracic Echo Complete W Doppler/CF; Future - NM MPI Stress Test Multiple Studies; Future - ECG 12 lead Pure hypercholesterolemia Assessment & Plan: LDL was 69 on 12/10/2017. Continue Mevacor treatment Abnormal ECG Assessment & Plan: ECG today reveals sinus rhythm, right bundle branch block and minor nonspecific ST-T abnormality. When compared to ECG of 03/12/2018, ST-T abnormality is less pronounced. Orders: - Transthoracic Echo Complete W Doppler/CF; Future - NM MPI Stress Test Multiple Studies; Future Current Outpatient Prescriptions on File Prior to Visit Medication Sig Dispense Refill ??? acetaminophen ER (TYLENOL) 650 mg 8 hr tablet Take 1-2 tablets (650-1,300 mg total) by mouth every 8 (eight) hours as needed for pain, fever or headaches. 30 tablet ??? amitriptyline (ELAVIL) 10 mg tablet TAKE 1 TABLET BY MOUTH AT BEDTIME 30 tablet 0 ??? lovastatin (MEVACOR) 20 mg tablet Take 2 tablets (40 mg total) by mouth nightly. 180 tablet 1 ??? warfarin (COUMADIN) 1 mg tablet TAKE 2 TABLETS BY MOUTH ONCE DAILY DIRECTED BASED ON ROUTINEINR MEASUREMENT. CURRENTLY ON 7MG DAILY 60 tablet 2 ??? warfarin (COUMADIN) 5 mg tablet TAKE ONE TABLET BY MOUTH AT BEDTIME *TAKE WITH TWO 1 MG TABLETSTO EQUAL 7 MG AT BEDTIME* 30 tablet 6 ??? albuterol HFA (PROAIR HFA) 90 mcg/actuation inhaler Inhale 2 puffs every 4 (four) hours as needed for wheezing or shortness of breath. (Patient not taking: Reported on 03/29/2018 ) 8.5 g 0 ??? senna (SENOKOT) 8.6 mg tablet Take 1 tablet by mouth daily as needed for constipation. (Patientnot taking: Reported on 03/29/2018 ) No current facility-administered medications on file prior to visit. Samia Torrez MD documented in this encounter Miscellaneous Notes * Assessment & Plan Note - Samia Torrez MD - 03/29/2018 1:49 PM CDT Associated Problem(s): Other chest pain (Resolved 06/18/2018) Atypical in nature. Due to the presence of chest pain and abnormal ECG, echocardiogram and Lexiscannuclear stress test will be obtained for further evaluation. * Assessment & Plan Note - Samia Torrez MD - 03/29/2018 1:48 PM CDT Associated Problem(s): Abnormal ECG (Resolved 12/18/2018) ECG today reveals sinus rhythm, right bundle branch block and minor nonspecific ST-T abnormality. When compared to ECG of 03/12/2018, ST-T abnormality is less pronounced. * Assessment & Plan Note - Samia Torrez MD - 03/29/2018 1:48 PM CDT Associated Problem(s): Pure hypercholesterolemia LDL was 69 on 12/10/2017. Continue Mevacor treatment * Assessment & Plan Note - Samia Torrez MD - 03/29/2018 1:46 PM CDT Associated Problem(s): Chronic atrial fibrillation (HCC) Probably paroxysmal atrial fibrillation. EKG on 03/12/2018 was reviewed and showed sinus rhythm, right bundle branch block and nonspecific ST-T abnormality. ECG today reveals sinus rhythm, right bundle branch block and minor ST-T abnormality. After discussion, echocardiogram will be obtained for further cardiac evaluation. documented in this encounter Plan of Treatment Not on file documented as of this encounter Procedures Procedure Name Priority Date/Time Associated Diagnosis Comments ECG 12-LEAD Routine 03/29/2018 Other chest pain Chronic atrial fibrillation (CMS/HCC) documented in this encounter Results * NM MPI Stress Test Multiple Studies (04/09/2018 9:26 AM CDT) Anatomical Region Laterality Modality Body N/A Nuclear Medicine 04/09/2018 6:52 AM CDT Narrative 04/09/2018 12:58 [place] [address] Phone - [phone] MPI Imaging Report Patient Name: NOÉ COWAN JUNIOR : [id number] Study Date: 04/09/2018 6:52:54 AM Gender: M Tech: Location: Ref.Physician: SAMIA TORREZ Height(Cm): 72 BSA: Weight(Kg): 159 Heart Rate: 117 Procedures: Pharmacologic SPECT Report.: Myocardial perfusion imaging with Sestamibi SPECT at rest and post regadenoson (Lexiscan) infusion. Indications: Chest pain, precordial 786.51, and Abnormal EKG 794.31. Findings: History: This 82 years old gentleman presents with symptom of exertional chest pain and abnormal ECGs. Procedure Details: Informed consent was obtained,after detailed explanation of risks, benefits, goals of the procedure. The patient was brought to the nuclear lab in a fasting, nonsedated fashion. 9.7 mCi [id number] was injected, followed by rest myocardial SPECT imaging approximately 20 minutes later. The patient was then brought to the cardiopulmonary lab. Under continuous ECG, and blood pressure monitoring, the patient was injected with 0.4 mg of Lexiscan IV x 1 over 10 seconds per protocol. At peak stress, the patient was injected with 30.8 mCi [id number], followed by stress myocardial SPECT imaging approximately 30 minutes later. The patient overall tolerated the Lexiscan infusion well, without any immediate complications. Procedure Data: One day rest/stress protocol was used. Myoview injected at rest was 9.7 millicuries. Myoview injected at peak exercise was 30.8 millicuries. Resting HR 59 bpm. Resting BP: 149/82 mmHg. Predicted Maximal HR 138 bpm. Exercise Time: 00:05. Rate-Pressure Product: 83719 BPM*mmHg. METS achieved: 1.0. Reason for termination was Lexiscan protocol complete. Peak HR: 72 bpm. Peak BP: 162/82 mmHg. Percent Max Predicted HR Achieved: 52 %. Resting ECG: Sinus bradycardia, right bundle-branch block, anteroseptal infarct, age undetermined and ST-T abnormality consider lateral ischemia. Stress Test: The patient received Lexiscan 0.4 mg IV and followed by radioisotope injection for stress images. Patient reported no chest pain or chest tightness. There were no cardiac arrhythmias noted. The blood pressure response to Lexiscan injection was normal. Stress ECG: No diagnostic ECG changes. Perfusion Imaging: At the stress images, there is mild intensity, mid to basal inferior and inferoseptal wall defect. With the rest images, this defect appeared to be predominantly fixed with no significant reversibility. Gated wall motion analysis revealed normal left ventricular size and systolic contractility without regional wall motion abnormality. The left ventricular ejection fraction is 66%. There is no evidence of stress induced transient ischemic dilatation with TID index of 1.03. Conclusions: 1. Negative Lexiscan nuclear stress test for ischemia per ECG criteria 2. No Lexiscan induced chest discomfort or cardiac arrhythmias 3. Myocardial perfusion images revealed : No evidence of reversible ischemia Mild intensity, fixed defect involving mid to basal inferior and inferoseptal wall, consider diaphragmatic attenuation artifact or prior infarct 4. Gated wall motion analysis revealed normal left ventricular size and systolic contractility without regional wall motion abnormality. The left ventricular ejection fraction 66%. Electronically Signed By: Samia Torrez MD, [facility] 2018-04-09 12:58:46 CDT CC: CC: Procedure Note Samia Torrze MD - 04/09/2018 [place] [id number] Phone - [phone] MPI Imaging Report Patient Name: NOÉ COWAN JUNIORPatient ID: [id number] : [id number] Date: 04/09/2018 6:52:54 AM Gender: MAccession #: [id number] Tech: Location: Ref.Physician: Reese TORREZ(Cm): 72 BSA: Weight(Kg): 159 Heart Rate: 117 Procedures: Pharmacologic SPECT Report.: Myocardial perfusion imaging with Sestamibi SPECT at rest and postregadenoson (Lexiscan) infusion. Indications: Chest pain, precordial 786.51, and Abnormal EKG 794.31. Findings: History: This 82 years old gentleman presents with symptom of exertional chest painand abnormal ECGs. Procedure Details: Informed consent was obtained,after detailed explanation of risks,benefits, goals of the procedure. The patient was brought to the nuclear lab in a fasting,nonsedated fashion. 9.7 mCi [id number] was injected, followed by rest myocardial SPECTimaging approximately 20 minutes later. The patient was then brought to thecardiopulmonary lab. Under continuous ECG, and blood pressure monitoring, the patient wasinjected with 0.4 mg of Lexiscan IV x 1 over 10 seconds per protocol. At peak stress, thepatient was injected with 30.8 mCi [id number], followed by stress myocardial SPECTimaging approximately 30 minutes later. The patient overall tolerated the Lexiscaninfusion well, without any immediate complications. Procedure Data: One day rest/stress protocol was used. Myoview injected at rest was 9.7millicuries. Myoview injected at peak exercise was 30.8 millicuries. Resting HR 59 bpm.Resting BP: 149/82 mmHg. Predicted Maximal HR 138 bpm. Exercise Time: 00:05.Rate-Pressure Product: 18230 BPM*mmHg. METS achieved: 1.0. Reason for termination was Lexiscanprotocol complete. Peak HR: 72 bpm. Peak BP: 162/82 mmHg. Percent Max Predicted HRAchieved: 52 %. Resting ECG: Sinus bradycardia, right bundle-branch block, anteroseptal infarct, ageundetermined and ST-T abnormality consider lateral ischemia. Stress Test: The patient received Lexiscan 0.4 mg IV and followed by radioisotopeinjection for stress images. Patient reported no chest pain or chest tightness. There were nocardiac arrhythmias noted. The blood pressure response to Lexiscan injection wasnormal. Stress ECG: No diagnostic ECG changes. Perfusion Imaging: At the stress images, there is mild intensity, mid to basal inferior andinferoseptal wall defect. With the rest images, this defect appeared to bepredominantly fixed with no significant reversibility. Gated wall motion analysis revealed normal leftventricular size and systolic contractility without regional wall motion abnormality.The left ventricular ejection fraction is 66%. There is no evidence of stressinduced transient ischemic dilatation with TID index of 1.03. Conclusions: 1. Negative Lexiscan nuclear stress test for ischemia per ECG criteria 2. No Lexiscan induced chest discomfort or cardiac arrhythmias 3. Myocardial perfusion images revealed : No evidence of reversible ischemia Mild intensity, fixed defect involving mid to basal inferior andinferoseptal wall, consider diaphragmatic attenuation artifact or prior infarct 4. Gated wall motion analysis revealed normal left ventricular size andsystolic contractility without regional wall motion abnormality. The leftventricular ejection fraction 66%. Electronically Signed By: Samia Torrez MD, [facility] 2018-04-09 12:58:46 CDT CC: CC: us Samia Torrez MD IMG NM PROCEDURES Final R esult * TRANSTHORACIC ECHO (TTE) COMPLETE W DOPPLER/CF [...] insufficiency ?7. ?No pericardial effusion ?? us Samia Torrez MD CV ECHO PROCEDURES Final Result * ECG 12 lead (03/29/2018) Samia Richey MD - 03/29/2018 Normal sinus rhythm, right bundle-branch block, minor nonspecific ST-T abnormality us Samia Torrez MD ECG ORDERABLES Final Res ult documented in this encounter Visit Diagnoses Diagnosis Other chest pain- Primary Chronic atrial fibrillation (HCC) Atrial fibrillation Pure hypercholesterolemia Abnormal ECG Nonspecific abnormal electrocardiogram (ECG) (EKG) Other chest pain Chronic atrial fibrillation (HCC) Atrial fibrillation Abnormal ECG Nonspecific abnormal electrocardiogram (ECG) (EKG) Other chest pain Chronic atrial fibrillation (HCC) Atrial fibrillation Abnormal ECG Nonspecific abnormal electrocardiogram (ECG) (EKG) documented in this encounter Care Teams Business Continuity Consultant Relationship Specialty Start Date End Date Violeta Casillas DO PCP - General 09/29/16 09/15/21 documented as of this encounter
--- OUTSIDE RECORDS SUMMARY | 2024-07-09 02:21 | XMS_ITS | Encounter Summary ---
Author Organization [facility] Address [address] [facility] [address] [place] [address] Care Team Providers Care Archeologist Name Role Phone Violeta Casillas DO Primary Care Provider + Encounter Details Date Type Department Care Team (Late st Contact Info) Description 05/02/2018 Orders Only [facility] [address] [place] [address] Scanning, Provider Social History Tobacco Use Types Packs/Day Years Used Date Smoking Tobacco: Former Smokeless Tobacco: Former Alcohol Use Standard Drinks/Week Comments Yes 0 (1 standard drink = 0.6 oz pur e alcohol) Sex and Gender Information Value Date Recorded Sex Assigned at Not on file 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
--- OUTSIDE RECORDS SUMMARY | 2024-07-09 02:21 | XMS_ITS | Encounter Summary ---
Author Organization [facility] Healthcare Address [address] [place] [address] Care Team Providers Care Zipper Setter Chainstitch Name Role Phone CasillasVioleta DO Primary Care Provider + Reason for Visit * Diagnostic Imaging (Routine) - Closed Specialty Diagnoses / Procedures Referred By Contac t Referred To Contact Diagnoses Other chest pain Chronic atrial fibrillation (HCC) Abnormal ECG Procedures NM MPI Stress Test Multiple Studies Samia Torrez MD Phone: tel: fax: [facility] [address] [place] [address] Referral ID Status Reason Start Date Expiration Date Visits Re quested Visits Authorized [id number] Closed 03/29/2018 10/08/2019 5 5 Encounter Details Date Type Department Care Team (Late st Contact Info) Description 04/09/2018 6:38 AM CDT - 04/09/2018 11:59 PM CDT Hospital Encounter 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 Gender Identity Not on file Sexual Orientation Not on file documented as of this encounter Last Filed Vital Signs Vital Sign Reading Time Taken Comments Blood Pressure 149/82 04/09/2018 7:18 AM CDT Pulse - - Temperature - - Respiratory Rate - - Oxygen Saturation - - Inhaled Oxygen Concentration - - Weight - - Height - - Body Mass Index - - documented in this encounter Medications at Time of Discharge acetaminophen ER (TYLENOL) 650 mg 8 hr [...] BY MOUTH AT BEDTIME 30 tablet 8 05/02/20 18 lovastatin (MEVACOR) 20 mg tabletIndications:Pure hypercholesterolemia [...] Procedure Name Priority Date/Time Associated Diagnosis Comments NM MPI SPECT (REST AND/OR STRESS) MULTIPLE STUDIES Schedule Routine, Read Routine (OP Routine) 04/09/2018 9:26 AM CDT Other chest pain Chronic atrial fibrillation (CMS/HCC) Abnormal ECG documented in this encounter Results * NM MPI Stress Test Multiple Studies (04/09/2018 9:26 AM CDT) Anatomical Region Laterality Modality Body N/A Nuclear Medicine 04/09/2018 6:52 AM CDT Narrative 04/09/2018 12:58 PM CDT [address] [address] Phone - [phone] MPI Imaging Report Patient Name: NOÉ COWAN JUNIOR : 1935 Study Date: 04/09/2018 6:52:54 AM Gender: M [...] in a fasting, nonsedated fashion. 9.7 mCi Ol49e-Jfwaybziqht was injected, followed by rest myocardial SPECT imaging approximately 20 minutes later. The patient was then brought to the cardiopulmonary lab. Under continuous ECG, and blood pressure monitoring, the patient was injected with 0.4 mg of Lexiscan IV x 1 over 10 seconds per protocol. At peak stress, the patient was injected with 30.8 mCi Ve08u-Elmbrobkvww, followed by stress myocardial SPECT imaging approximately 30 minutes later. The patient overall tolerated the Lexiscan infusion well, without any immediate complications. Procedure Data: One day rest/stress protocol was used. Myoview injected at rest was 9.7 millicuries. Myoview injected at peak exercise was 30.8 millicuries. Resting HR 59 bpm. Resting BP: 149/82 mmHg. Predicted Maximal HR 138 bpm. Exercise Time: 00:05. Rate-Pressure Product: 14344 BPM*mmHg. METS achieved: 1.0. Reason for termination [...] 66%. Electronically Signed By: Samia Torrez MD, [facility] 2018-04-09 12:58:46 CDT CC: CC: Procedure Note Samia Torrez MD - 04/09/[address] [address] Phone - [phone] MPI Imaging Report Patient Name: NOÉ COWAN JUNIORPatient ID: [id number] : [id number] Date: 04/09/2018 6:52:54 AM Gender: MAccession #: [id number] Tech: Location: Ref.Physician: Reese TORREZ(Cm): 72 BSA: [...] lab in a fasting,nonsedated fashion. 9.7 mCi Am14s-Evqjaexyhue was injected, followed by rest myocardial SPECTimaging approximately 20 minutes later. The patient was then brought to thecardiopulmonary lab. Under continuous ECG, and blood pressure monitoring, the patient wasinjected with 0.4 mg of Lexiscan IV x 1 over 10 seconds per protocol. At peak stress, thepatient was injected with 30.8 mCi Bx76o-Uojlpjltjjz, followed by stress myocardial SPECTimaging approximately 30 minutes later. The patient overall tolerated the Lexiscaninfusion well, without any immediate complications. Procedure Data: One day rest/stress protocol was used. Myoview injected at rest was 9.7millicuries. Myoview injected at peak exercise was 30.8 millicuries. Resting HR 59 bpm.Resting BP: 149/82 mmHg. Predicted Maximal HR 138 bpm. Exercise Time: 00:05.Rate-Pressure Product: 37831 BPM*mmHg. METS achieved: 1.0. Reason for termination [...] 66%. Electronically Signed By: Samia Torrez MD, [facility] 2018-04-09 12:58:46 CDT CC: CC: us Samia Torrez MD IMG NM PROCEDURES Final R esult documented in this encounter Visit Diagnoses Not on filedocumented in this encounter Administered Medications Inactive Administered Medications - up to 3 most recent administrations Medication Order MAR Action Action Date Dose Rate Site regadenoson (LEXISCAN) 0.4 mg/5 mL injection 0.4 mg 0.4 mg, intravenous, Once, On 04/09/18 at 0715, For 1 dose, Indications: Myocardial Perfusion Imaging AdjunctIndications:Myocardial Perfusion Imaging Adjunct Given 04/09/2018 7:18 AM CDT 0.4 mg documented in this encounter Care Teams Zipper Setter Chainstitch Relationship Specialty Start Date End Date Violeta Casillas DO PCP - General 09/29/16 09/15/21 documented as of this encounter
--- OUTSIDE RECORDS SUMMARY | 2024-07-09 02:21 | XMS_ITS | Encounter Summary ---
Author Organization [facility] Address [address] [address] Care Team Providers Care Casing In Line Feeder Name Role Phone Violeta Casillas DO Primary Care Provider + Reason for Visit * Reason Comments Immunizations Flu shot Encounter Details Date Type Department Care Team (Latest Contact Info) Description 03/29/2018 2:45 PM CDT Clinical Support [id number] [place] [phone] Encounter for administration of vaccine (Primary Dx) Social History Tobacco Use Types Packs/Day Years Used Date Smoking Tobacco: Former Smokeless Tobacco: Former Alcohol Use Standard Drinks/Week Comments Yes 0 (1 standard drink = 0.6 oz pur e alcohol) Sex and Gender Information Value Date Recorded Sex Assigned at Not on file 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 Gender Identity Not on file Sexual Orientation Not on file documented as of this encounter Progress Notes * Lesley Grant MA - 03/29/2018 2:45 PM CDT Flu vaccine given in Lt Deltoid VIS Given No adverse reaction documented in this encounter Plan of Treatment Not on file documented as of this encounter Visit Diagnoses Diagnosis Encounter for administration of vaccine- Primary documented in this encounter Orders Immunization/Injection Count Last Ordered Date First Ordered Date FLU VACCINE HD TRI PF 65Y+ IM 1 03/29/2018 documented in this encounter Care Teams Casing In Line Feeder Relationship Specialty Start Date End Date Violeta Casillas DO PCP - General 09/29/16 09/15/21 documented as of this encounter
--- OUTSIDE RECORDS SUMMARY | 2024-07-09 02:21 | XMS_ITS | Encounter Summary ---
Author Organization 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 Dr. Casillas would like for patient to take 8mg on Tuesdays and 7mg every other day and recheck levels in 1 month. Patient did not answer call. Left message for patient to call back. documented in this encounter Plan of Treatment Not on file documented as of this encounter Visit Diagnoses Not on filedocumented in this encounter Care Teams Orchid Worker Relationship Specialty Start Date End Date Violeta Casillas DO PCP - General 09/29/16 09/15/21 documented as of this encounter
--- OUTSIDE RECORDS SUMMARY | 2024-07-09 02:21 | XMS_ITS | Encounter Summary ---
Author Organization [facility] Medical Group Address [address] [address] Care Team Providers Care Client Relationship Executive Name Role Phone Violeta Casillas DO Primary Care Provider + Encounter Details Date Type Department Care Team (Late st Contact Info) Description 12/10/2017 9:00 AM CDT Lab [facility] [address] [facility] Social History Tobacco Use Types Packs/Day Years Used Date Smoking Tobacco: Former Alcohol Use Standard Drinks/Week Comments Yes 0 (1 standard drink = 0.6 oz pur e alcohol) Sex and Gender Information Value Date Recorded Sex Assigned at Not on file 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
--- OUTSIDE RECORDS SUMMARY | 2024-07-09 02:21 | XMS_ITS | Encounter Summary ---
Author Organization [facility] Medical [facility] Address [address] [facility] [address] [place] [address] Care Team Providers Care Floor Layer Tile Name Role Phone Violeta Casillas DO Primary Care Provider + Encounter Details Date Type Department Care Team (Late st Contact Info) Description 04/02/2018 Telephone [facility] Medical [facility] Cardiology [address] [place] [address] Hunter Shah MD [address] [place] [address] Social History Tobacco Use Types Packs/Day Years Used Date Smoking Tobacco: Former Smokeless Tobacco: Former Alcohol Use Standard Drinks/Week Comments Yes 0 (1 standard drink = 0.6 oz pur e alcohol) Sex and Gender Information Value Date Recorded Sex Assigned at Not on file 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
--- OUTSIDE RECORDS SUMMARY | 2024-07-09 02:21 | XMS_ITS | Encounter Summary ---
Author Organization [facility] Healthcare Address [address] [place] [address] Care Team Providers Care Pilot Plant Technician Name Role Phone Violeta Casillas DO Primary Care Provider + Reason for Referral * Diagnostic Imaging (Routine) - Closed Specialty Diagnoses / Procedures Referred By Ignacia manzanares Referred To Contact Diagnoses Other chest pain Chronic atrial fibrillation (HCC) Abnormal ECG Procedures NM MPI Stress Test Multiple Studies Samia Torrez MD Phone: tel: fax: [address] [address] Referral ID Status Reason Start Date Expiration Date Visits Re quested Visits Authorized [id number] Closed 03/29/2018 10/08/2019 5 5 Reason for Visit * Diagnostic Imaging (Routine) - Closed Specialty Diagnoses / Procedures Referred By Ignacia manzanares Referred To Contact Diagnoses Other chest pain Chronic atrial fibrillation (HCC) Abnormal ECG Procedures NM MPI Stress Test Multiple Studies Samia Torrez MD Phone: tel: fax: [address] [address] Referral ID Status Reason Start Date Expiration Date Visits Re quested Visits Authorized [id number] Closed 03/29/2018 10/08/2019 5 5 Encounter Details Date Type Department Care Team (Late st Contact Info) Description 04/09/2018 6:29 AM CDT - 04/09/2018 6:37 AM CDT Hospital Encounter [facility] Imaging Services [address] [place] [phone] Samia Torrez MD [address] [facility] [place] [address] Other chest pain; Chronic atrial fibrillation (CMS/HCC); Abnormal ECG Discharge Disposition: Discharge to home or self care Social History Tobacco Use Types Packs/Day Years Used Date Smoking Tobacco: Former Smokeless Tobacco: Former Alcohol Use Standard Drinks/Week Comments Yes 0 (1 standard drink = 0.6 oz pur e alcohol) Sex and Gender Information Value Date Recorded Sex Assigned at Not on file 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 9.7 mCi Gc55f-Vuwagynrncq was injected, followed by rest myocardial SPECT imaging approximately 20 minutes later. The patient was then brought to the cardiopulmonary lab. Under continuous ECG, and blood pressure monitoring, the patient was injected with 0.4 mg of Lexiscan IV x 1 over 10 seconds per protocol. At peak stress, the patient was injected with 30.8 mCi Cy19m-Btnpwhjwflw, followed by stress myocardial SPECT imaging approximately 30 minutes later. The patient overall tolerated the Lexiscan infusion well, without any immediate complications. Procedure Data: One day rest/stress protocol was used. Myoview injected at rest was 9.7 millicuries. Myoview injected at peak exercise was 30.8 millicuries. Resting HR 59 bpm. Resting BP: 149/82 mmHg. Predicted Maximal HR 138 bpm. Exercise Time: 00:05. Rate-Pressure Product: 79420 BPM*mmHg. METS achieved: 1.0. Reason for termination [...] 66%. Electronically Signed By: Samia Torrez MD, [facility] 2018-04-09 12:58:46 CDT CC: CC: Procedure Note Samia Torrez MD - 04/09/[address] [address] Phone - [phone] MPI Imaging Report Patient Name: NOÉ COWAN JUNIORPatient ID: [id number] : [id number] Date: 04/09/2018 6:52:54 AM Gender: MAccession #: [id number] Tech: Location: Ref.Physician: Reese TORREZ(Cm): 72 BSA: [...] lab in a fasting,nonsedated fashion. 9.7 mCi Sc48f-Oqmxozyenyj was injected, followed by rest myocardial SPECTimaging approximately 20 minutes later. The patient was then brought to thecardiopulmonary lab. Under continuous ECG, and blood pressure monitoring, the patient wasinjected with 0.4 mg of Lexiscan IV x 1 over 10 seconds per protocol. At peak stress, thepatient was injected with 30.8 mCi Pl51e-Ifyjqycxncg, followed by stress myocardial SPECTimaging approximately 30 minutes later. The patient overall tolerated the Lexiscaninfusion well, without any immediate complications. Procedure Data: One day rest/stress protocol was used. Myoview injected at rest was 9.7millicuries. Myoview injected at peak exercise was 30.8 millicuries. Resting HR 59 bpm.Resting BP: 149/82 mmHg. Predicted Maximal HR 138 bpm. Exercise Time: 00:05.Rate-Pressure Product: 31214 BPM*mmHg. METS achieved: 1.0. Reason for termination [...] 66%. Electronically Signed By: Samia Torrez MD, [facility] 2018-04-09 12:58:46 CDT CC: CC: Samia Torrez MD IMG NM PROCEDURES Final R esult documented in this encounter Visit Diagnoses Diagnosis Other chest pain Chronic atrial fibrillation (HCC) Atrial fibrillation Abnormal ECG Nonspecific abnormal electrocardiogram (ECG) (EKG) documented in this encounter Administered Medications Inactive Administered Medications - up to 3 most recent administrations Medication Order MAR Action Action Date Dose Rate Site tc-99m tetrofosmin (MYOVIEW) injection 30.8 millicurie 30.8 millicurie, intravenous, Once in imaging, radiopharmaceutical, Starting on Sun04/09/18 at 0808, For 1 dose, Indications: Diagnostic RadiographyIndications:Autumn gnostic Radiography Given 04/09/2018 8:09 AM CDT 30.8 millicuries tc-99m tetrofosmin (MYOVIEW) injection 9.8 millicurie 9.8 millicurie, intravenous, Once in imaging, radiopharmaceutical, Starting on Sun04/09/18 at 0637, For 1 dose, Indications: Diagnostic RadiographyIndications:Autumn gnostic Radiography Given 04/09/2018 6:38 AM CDT 9.8 millicuries documented in this encounter Orders Medications Ordered That Sulaiman ht Not Have Been Administered Count Last Ordered Date First Ordered Date regadenoson (LEXISCAN) 0.4 m g/5 mL injection 0.4 mg 1 04/09/2018 documented in this encounter Care Teams Pilot Plant Technician Relationship Specialty Start Date End Date Violeta Casillas DO PCP - General 09/29/16 09/15/21 documented as of this encounter
--- OUTSIDE RECORDS SUMMARY | 2024-07-09 02:21 | XMS_ITS | Encounter Summary ---
Author Organization [facility] Address [address] [address] Care Team Providers Care Sales Development Specialist Name Role Phone Violeta Casillas DO Primary Care Provider + Encounter Details Date Type Department Care Team (Late st Contact Info) Description 11/07/2017 Telephone Medical [facility] [address] [place] [address] Ruth Hankins LPN Social History Tobacco Use Types Packs/Day Years Used Date Smoking Tobacco: Former Alcohol Use Standard Drinks/Week Comments Yes 0 (1 standard drink = 0.6 oz pur e alcohol) Sex and Gender Information Value Date Recorded Sex Assigned at Not on file 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 Pt verbalized understanding to alternate between 7 and 8 mgdoses and recheck weekly. documented in this encounter Plan of Treatment Not on file documented as of this encounter Visit Diagnoses Not on filedocumented in this encounter Care Teams Sales Development Specialist Relationship Specialty Start Date End Date Violeta Casillas DO PCP - General 09/29/16 09/15/21 documented as of this encounter
--- OUTSIDE RECORDS SUMMARY | 2024-07-09 02:22 | XMS_ITS | Encounter Summary ---
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
--- OUTSIDE RECORDS SUMMARY | 2024-07-09 02:22 | XMS_ITS | Encounter Summary ---
Author Organization 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
--- OUTSIDE RECORDS SUMMARY | 2024-07-09 02:22 | XMS_ITS | Encounter Summary ---
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
--- OUTSIDE RECORDS SUMMARY | 2024-07-09 02:22 | XMS_ITS | Encounter Summary ---
Author Organization [facility] Address [address] [facility] [address] [place] [address] Care Team Providers Care Human Resources Representative Name Role Phone Violeta Casillas Primary Care Provider + Encounter Details Date Type Department Care Team (Late st Contact Info) Description 12/06/2016 8:35 AM CDT Lab Medical [facility] [address] [facility] Other and unspecified hyperlipidemia (Primary Dx) Social History Tobacco Use Types Packs/Day Years Used Date Smoking Tobacco: Former Alcohol Use Standard Drinks/Week Comments Yes 0 (1 standard drink = 0.6 oz pur e alcohol) Sex and Gender Information Value Date Recorded Sex Assigned at Not on file Legal Sex Male 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 Gender Identity Not on file Sexual Orientation Not on file documented as of this encounter Plan of Treatment Scheduled Orders Name Type Priority Associated Diagnoses Orde r Schedule Lipid panel Lab Routine Other and unspecified hyperlipidemia 1 Occurrences starting 12/06/2016 until 12/06/2017 documented as of this encounter Procedures Procedure Name Priority Date/Time Associated Diagnosis Comments CHOL/HDLC RATIO Routine 12/06/2016 8:00 AM CDT LDL-CHOLESTEROL Routine 12/06/2016 8:00 AM CDT NON HDL CHOLESTEROL Routine 12/06/2016 8 :00 AM CDT TRIGLYCERIDES Routine 12/06/2016 8:00 AM CDT CHOLESTEROL, HDL Routine 12/06/2016 8:00 AM CDT CHOLESTEROL, TOTAL Routine 12/06/2016 8: 00 AM CDT COMPREHENSIVE METABOLIC PANEL Routine 12/06/2016 8:00 AM CDT Other and unspecified hyperlipidemia documented in this encounter Results * NON HDL CHOLESTEROL (12/06/2016 8:00 AM CDT) Non-HDL, (LDL+VLDL) 98 mg/dL (calc) [facility] Comment: Target for non-HDL cholesterol is 30 mg/dL higher than LDL cholesterol target. 12/06/2016 8:00 AM CDT 12/07/2016 3:04 AM CDT Narrative Resulting Agency Comment Performing Organization Information: ?Site ID: ANA ?Name: [facility] ?Address: [address] [place] [address] [place] [address] ?Director: Gomez Sánchez D.O., MPH Violeta Casillas DO LAB BLOOD ORDERABLES Fin al Result Performing Organization Address [facility] Co de Phone Number [facility] Clive ANA * CHOL/HDLC RATIO (12/06/2016 8:00 AM CDT) Pathologist [facility] Chol/HDL ratio 3.0 < OR = 5.0 (calc) [facility] 12/06/2016 8:00 AM CDT 12/07/2016 3:04 AM CDT Narrative Resulting Agency Comment Performing Organization Information: ?Site ID: [place] ?Name: [facility] ?Address: [address] [place] [address] [place] [address] ?Director: Gomez Sánchez D.O., MPH Violeta Casillas DO LAB BLOOD ORDERABLES Fin al Result Performing Organization Address City/[facility] Co de Phone Number [facility] [place] ANA * LDL-Cholesterol (12/06/2016 8:00 AM CDT) LDL 80 <130 mg/dL (calc) [facility] ANA Comment: Desirable range <100 mg/dL for patients with CHD or diabetes and <70 mg/dL for diabetic patients with known heart disease. 12/06/2016 8:00 AM CDT 12/07/2016 3:04 AM CDT Narrative Resulting Agency Comment Performing Organization Information: ?Site ID: [place] ?Name: [facility]a ?Address: [facility] [place] [address] ?Director: Gomez Sánchez D.O. MPH Violeta Casillas DO LAB BLOOD ORDERABLES Fin al Result Performing Organization Address City/[facility]/ZIP Co de Phone Number ANA Scott * Triglycerides (12/06/2016 8:00 AM CDT) Triglycerides 90 <150 mg/dL [facility] PERE[facility] 12/06/2016 8:00 AM CDT 12/07/2016 3:04 AM CDT Narrative Resulting Agency Comment Performing Organization Information: ?Site ID: ANA ?Name: [facility] Olivera ?Address: [facility] [place] [address] ?Director: Gomez Sánchez D.O. MPH Violeta Casillas DO LAB BLOOD ORDERABLES Fin al Result Performing Organization Address City/[facility] Co de Phone Number ANA Scott * Cholesterol, HDL (12/06/2016 8:00 AM CDT) HDL 48 > OR = 40 mg/dL [facility] PEREZ 12/06/2016 8:00 AM CDT 12/07/2016 3:04 AM CDT Narrative Resulting Agency Comment Performing Organization Information: ?Site ID: ANA ?Name: [facility]y Olivera ?Address: [facility] [place] [address] ?Director: Gomez Sánchez D.O. MPH Violeta Casillas DO LAB BLOOD ORDERABLES Fin al Result [facility] Watson * Cholesterol, total (12/06/2016 8:00 AM CDT) Cholesterol 146 125 - 200 mg/dL [facility] [place] 12/06/2016 8:00 AM CDT 12/07/2016 3:04 AM CDT Narrative Resulting Agency Comment Performing Organization Information: ?Site ID: [place] ?Name: [facility] ?Address: [facility] [place] [address] ?Director: Gomez Sánchez D.O. MPH Violeta Casillas DO LAB BLOOD ORDERABLES Fin al Result Performing Organization Address City/[facility] Co de Phone Number [facility] [place] * (ABNORMAL) Comprehensive metabolic panel (12/06/2016 8:00 AM CDT) Glucose 111(H) 65 - 99 mg/dL [facility] [place] Comment: ? Fasting reference interval For someone without known diabetes, a glucose value between 100 and 125 mg/dL is consistent with prediabetes and should be confirmed with a follow-up test. BUN 17 7 - 25 mg/dL [facility] [place] Creatinine 0.90 0.70 - 1.11 mg/dL [facility] [place] Comment: For patients >49 years of age, the reference limit for Creatinine is approximately 13% higher for people identified as -Kazakh. eGFR NON-AFR. ENGLISH 80 > OR = 60 mL/min/1 .73m2 [facility] [place] EGFR 93 > OR = 60 mL/min/1 .73m2 [facility] [place] BUN/creat ratio NOT APPLICABLE 6 - 22 (calc) [facility] [place] Sodium 141 135 - 146 mmol/L [facility] [place] Potassium, pl 4.0 3.5 - 5.3 mmol/L [facility] [place] Chloride 105 98 - 110 mmol/L [facility] [place] CO2 26 20 - 31 mmol/L [facility] [place] Calcium 9.5 8.6 - 10.3 mg/dL [facility] [place] Protein, sr 7.3 6.1 - 8.1 g/dL [facility] [place] Albumin 4.4 3.6 - 5.1 g/dL [facility] [place] Globulin 2.9 1.9 - 3.7 g/dL (calc) [facility] [place] Alb/glob ratio 1.5 1.0 - 2.5 (calc) [facility] [place] Bilirubin, total 0.7 0.2 - 1.2 mg/dL [facility] [place] Alk phos 117(H) 40 - 115 U/L [facility] [place] AST 16 10 - 35 U/L [facility] [place] ALT (SGPT) 13 9 - 46 U/L [facility] [place] Blood specimen (specimen) (Blood, Venous) 12/06/2016 8:00 AM CDT 12/07/2016 3:04 AM CDT Narrative Resulting Agency Comment Performing Organization Information: ?Site ID: ANA ?Name: [facility] ?Address: [facility] [place] [address] ?Director: Gomez Sánchez D.O., MPH us Violeta Casillas DO LAB BLOOD ORDERABLES Fin al Result [facility] [place] documented in this encounter Visit Diagnoses Diagnosis Other and unspecified hyperlipidemia- Primary documented in this encounter Care Teams Human Resources Representative Relationship Specialty Start Date End Date Violeta Casillas DO PCP - General 09/29/16 09/15/21 documented as of this encounter
--- OUTSIDE RECORDS SUMMARY | 2024-07-09 02:22 | XMS_ITS | Encounter Summary ---
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
--- OUTSIDE RECORDS SUMMARY | 2024-07-09 07:04 | XMS_ITS | Encounter Summary ---
Author Organization [facility] Healthcare Address [address] [place] [address] Care Team Providers Care Doctor Podiatric Medicine Name Role Phone Miller Mcmanus MD Primary Care Provider [phone] Encounter Details Date Type Department Care Team (Late st Contact Info) Description 11/13/2023 Anticoagulation Telephone Call [facility] Cardiology [address] [facility] [address] [place] [address] Feliberto Ramey MD [address] [facility] [address] [place], [place] [id number] Chronic atrial fibrillation (HCC) (Primary Dx); 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 Never 05/13/2020 Do you belong to any clubs o r organizations such as anabaptism groups, unions, fraternal or athletic groups, or [...] place to sleep or slept in a nursing home (including now)? 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
--- OUTSIDE RECORDS SUMMARY | 2024-07-09 07:04 | XMS_ITS | Clinical Summary ---
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 Assessment & Plan (05/06/2020 11:31 PM TERMITE CONTROL SERVICE REPRESENTATIVE): Unsure exact cause. Depression vs nutrition vs dehydration vs possible parkinsons?? Consult [facility]CO He is recently less than 2 years ago. No family or friend support. Probable poor nutrition. Difficulty getting him to take meds as intended. Frequent falls 05/06/2020 Assessment & Plan (11/03/2020 12:12 PM CDT): Pt refuses cane or walker for ambulation. Assessment & Plan (05/06/2020 11:40 PM TERMITE CONTROL SERVICE REPRESENTATIVE): Refuses neuro or PT consult. I think he falls more from flexing his neck versus position changes, stumbling, or orthostasis. During the office visit that took at least 40 minutes, I spent over 50% of the time either counseling, educating, discussing plan of treatment, or answering questions today. Tremor, unspecified 05/06/2020 Assessment & Plan (05/06/2020 11:33 PM TERMITE CONTROL SERVICE REPRESENTATIVE): Refuses consult with neuro or anything that might cost him money. Trial Requip (ropinirole) 0.25mg tid. Consult [facility]CO Illiteracy 05/06/2020 Weight loss 01/26/2020 Assessment & Plan (07/28/2020 7:23 PM TERMITE CONTROL SERVICE REPRESENTATIVE): Stable with Mirtazapine. Will increase the Mirtazapine to 30mg today. Assessment & Plan (05/06/2020 11:37 PM TERMITE CONTROL SERVICE REPRESENTATIVE): Possible improvement with Mirtazapine (if he is [...] 8:55 AM CDT): Will refill Cardura to [facility] program. Hopefully this will allow patient to easy to access his medications. Will also order home health for social work and nursing services. With his blood pressure a elevated he likely needs a nurse to check this and assist him with medications. He is not cognitively aware enough to do this himself. Assessment & Plan (07/28/2020 7:26 PM TERMITE CONTROL SERVICE REPRESENTATIVE): Will increase the doxazosin from 1 mg [...] readings. Assessment & Plan (07/28/2019 11:16 PM TERMITE CONTROL SERVICE REPRESENTATIVE): New diagnosis. Start doxazosin (Cardura) for combined benefit of HTN and BPH. Call back with update in 2-3 weeks and blood pressure readings if possible. Chronic rhinitis 07/28/2019 Assessment & Plan (07/28/2019 11:20 PM TERMITE CONTROL SERVICE REPRESENTATIVE): Start Flonase (fluticasone). Demonstrated use. Hearing difficulty of both ears 12/18/2018 Assessment & Plan (07/28/2020 7:45 PM TERMITE CONTROL SERVICE REPRESENTATIVE): Tried to clean out ears today. Assessment & Plan (01/26/2020 11:12 AM CDT): Did not go to audiology due to cost. Assessment & Plan (12/18/2018 9:24 PM CDT): Audiology consult. 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 LDL is controlled well. Prediabetes 06/18/2017 Assessment & Plan (07/28/2020 7:21 PM TERMITE CONTROL SERVICE REPRESENTATIVE): Will check new labs and make adjustments if needed. Assessment & Plan (01/26/2020 11:07 AM CDT): Will recheck fasting glucose today. Assessment & Plan (07/28/2019 11:16 PM TERMITE CONTROL SERVICE REPRESENTATIVE): Get new labs Assessment & Plan (12/18/2018 9:23 PM CDT): Lower carb diet recommended. Assessment & Plan (06/18/2017 1:26 PM TERMITE CONTROL SERVICE REPRESENTATIVE): Please cut down on sweets. Chronic idiopathic constipation 12/13/2016 Assessment & Plan (07/28/2020 7:21 PM TERMITE CONTROL SERVICE REPRESENTATIVE): Chronic & stable on meds. Continue current [...] Lipitor. Assessment & Plan (07/28/2020 7:43 PM TERMITE CONTROL SERVICE REPRESENTATIVE): Chronic & stable on meds. Continue current treatment. Assessment & Plan (01/26/2020 11:06 AM CDT): Stop rosuvastatin and start atorvastatin 20mg due to cost. Check labs today. Assessment & Plan (07/28/2019 11:20 PM TERMITE CONTROL SERVICE REPRESENTATIVE): Get updated labs soon. Assessment & Plan (12/18/2018 9:23 PM CDT): Chronic & stable on meds. Continue current treatment. Assessment & Plan (06/18/2018 2:20 PM TERMITE CONTROL SERVICE REPRESENTATIVE): Chronic & stable on meds. Continue current treatment. Assessment & Plan (03/29/2018 1:48 PM CDT): LDL was 69 on 12/10/2017. Continue Mevacor treatment Assessment & Plan (12/17/2017 9:41 PM CDT): Chronic & stable on meds. Continue current treatment. Assessment & Plan (06/18/2017 1:26 PM TERMITE CONTROL SERVICE REPRESENTATIVE): Chronic & stable on meds. Continue current [...] draws. Assessment & Plan (06/18/2018 2:20 PM TERMITE CONTROL SERVICE REPRESENTATIVE): Chronic & stable on meds. Continue current [...] INR Assessment & Plan (06/18/2017 1:27 PM TERMITE CONTROL SERVICE REPRESENTATIVE): Chronic & stable on meds. Continue current [...] pharmacy Assessment & Plan (07/28/2020 7:38 PM TERMITE CONTROL SERVICE REPRESENTATIVE): Increase the Mirtazapine to 30mg daily and stop the Amitriptyline 10 mg daily, especially since he has constipation. Assessment & Plan (05/06/2020 11:37 PM TERMITE CONTROL SERVICE REPRESENTATIVE): Patient symptomatic and not sure if he [...] treatment. Assessment & Plan (06/18/2018 2:20 PM TERMITE CONTROL SERVICE REPRESENTATIVE): Chronic & stable on meds. Continue current treatment. Assessment & Plan (06/18/2017 1:26 PM TERMITE CONTROL SERVICE REPRESENTATIVE): Chronic & stable on meds. Continue current treatment. Assessment & Plan (12/13/2016 3:05 PM CDT): Doing well with current treatment program and medications. No changes today Chronic obstructive pulmonary disease 02/15/2015 Assessment & Plan (07/28/2020 7:42 PM TERMITE CONTROL SERVICE REPRESENTATIVE): Stable with out prescription medication. He feels [...] treatment. Assessment & Plan (06/18/2018 2:20 PM TERMITE CONTROL SERVICE REPRESENTATIVE): Stable without regular use of inhalers. Assessment [...] medication(s) Assessment & Plan (07/28/2020 7:41 PM TERMITE CONTROL SERVICE REPRESENTATIVE): Increase the doxazosin from 1 mg to 2 mg. Assessment & Plan (01/26/2020 11:09 AM CDT): Patient only took the doxazosin a couple times. Stop completely due to not taking it regularly and some lightheadedness when standing. Assessment & Plan (07/28/2019 11:16 PM TERMITE CONTROL SERVICE REPRESENTATIVE): Start doxazosin (Cardura). Patient opted out of getting PSA testing at this time. Resolved Problems Problem Noted Date Diagnosed Date Resolved Date Late onset Alzheimer's disea se without behavioral disturbance 09/20/2020 09/20/2020 Bilateral impacted cerumen 07/28/2020 0 09/17/2020 Assessment & Plan (07/28/2020 7:22 PM TERMITE CONTROL SERVICE REPRESENTATIVE): Ear irrigation today. Encounter for Medicare annual [...] 12/18/19 Assessment & Plan (06/18/2017 1:20 PM TERMITE CONTROL SERVICE REPRESENTATIVE): These look like a type of squamous [...] Telephone [facility] Cardiology [address] [facility] [address], [place] [address] Feliberto Ramey MD INR from [...] any clubs o r organizations such as mandaeism groups, unions, fraternal or athletic groups, or [...] on file Legal Sex Male 3:40 AM TERMITE CONTROL SERVICE REPRESENTATIVE Gender Identity Not on file Sexual [...] Advance Directives For more information, please contact: [phone] Documents on File Type Date Recorded Patient Electric Container Tester Expl anation ADVANCE DIRECTIVE 09/16/2021 9:00 AM Power of Automotive Service Professional-Medical ADVANCE DIRECTIVE 06/23/2021 4:03 PM Annabel r of Automotive Service Professional-Medical ADVANCE DIRECTIVE 03/05/2019 10:13 AM POWER OF ENVIRONMENTAL SERVICES DIRECTOR-MEDICAL ADVANCE DIRECTIVE 03/04/2019 2:22 PM POWER OF ENVIRONMENTAL SERVICES DIRECTOR-MEDICAL Care Teams Stitcher Utility Relationship Specialty Start Date End Date Miller Mcmanus MD [address] [address] PCP - General Family Medicine 10/20/22
--- OUTSIDE RECORDS SUMMARY | 2024-07-09 07:04 | XMS_ITS | Encounter Summary ---
Author Organization [facility] Address [address] [place] [address] Phone Care Team Providers Care Planetarium Technician Name Role Phone Brandon Sandoval MD Primary Care Provider [phone] Encounter Details Date Type Department Care Team (Late st Contact Info) Description 08/22/2021 Telephone [facility] - [facility] [address] [place] [address] Sabino Brownlee MD [address] [place] [address] Social History Tobacco Use Types [...] COVID-19? 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 T CYLINDER LOADER documented in this encounter Plan of Treatment Not on file documented as of this encounter Visit Diagnoses Not on filedocumented in this encounter Care Teams Planetarium Technician Relationship Specialty Start Date End Date Brandon Sandoval MD PCP - General Internal Medicine 03/23/21 documented as of this encounter
--- OUTSIDE RECORDS SUMMARY | 2024-07-09 07:04 | XMS_ITS | CONTINUITY OF CARE DOCUMENT ---
Author Name lenka og Address Unknown Organization [facility] Address [address] [place] [address] Phone [phone] Care Team Providers Care Pressroom Supervisor Name Role Phone Gianna Mathews MD Unavailable [phone] MARY HURTADO MD Unavailable [phone] MARY HURTADO MD Unavailable PROBLEMS Condition Status Date Provider Notes Shortness of breath (SOB) active Jose M purdy INSURANCE PROVIDERS Payer name Policy type / Coverage type [place] red constitution party ID [place] [employer] Medicare [id number] HISTORY OF PROCEDURES Procedure Date Procedure Name Provider Procedure Notes S tatus Mobile Cardiac Telem etry - Tech Gianna Mathews MD completed Mobile Cardiac Telem etry - Prof Gianna Mathews MD completed
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
--- OUTSIDE RECORDS SUMMARY | 2024-07-09 07:04 | XMS_ITS | Encounter Summary ---
Author Organization [facility] Healthcare Address [address] [place] [address] Care Team Providers Care Manager Surgery Name Role Phone Miller Mcmanus MD Primary Care Provider [phone] Reason for Visit * Reason Onset Date Comments INR 06/26/2024 Encounter Details Date Type Department Care Team (Late st Contact Info) Description 06/26/2024 Telephone [facility] Medical Group Cardiology [address] [facility] [address] [place] [address] Feliberto Ramey MD [address] [facility] [address] [place] [address] INR Social History Tobacco Use [...] place to sleep or slept in a [place] health care facility (including now)? No 12/30/2020 Personal Safety Answer Date Recorded Getting School Help Needed Not on file 07/30 Sex and Gender Information Value Date Recorded Sex Assigned at Not on file Legal Sex Male 3:40 AM PRODUCT DISTRIBUTION SPECIALIST Gender Identity Not on file Sexual Orientation Not on file documented as of this encounter Miscellaneous Notes * Telephone Encounter - Roseanne Miller RDCS - 06/26/2024 2:37 PM CST LM on daughter's VM, Roseanne. Roseanne advised to call office in regards to her fathers Warfarin Management. Patient has not had INR drawn since 10/2023. UCT DISTRIBUTION SPECIALIST documented in this encounter Plan of Treatment Not on file documented as of this encounter Visit Diagnoses Not on filedocumented in this encounter Care Teams Manager Surgery Relationship Specialty Start Date End Date Miller Mcmanus MD [address] [address] PCP - General Family Medicine 10/20/22 documented as of this encounter
--- OUTSIDE RECORDS SUMMARY | 2024-07-09 07:04 | XMS_ITS | Encounter Summary ---
Author Organization [facility] Medical Group Address [address] [facility] [address] [place] [address] Care Team Providers Care Admitting Office Escort Name Role Phone Brandon Sandoval MD Primary Care Provider + [phone] Encounter Details Date Type Department Care Team (Late st Contact Info) Description 08/01/2022 Telephone [facility] Medical [facility] Cardiology [address] [facility] [address] [place] [address] Feliberto Ramey MD [facility] [facility] [address] [place] [address] Social History Tobacco Use Types [...] any clubs o r organizations such as confucianism groups, unions, fraternal or athletic groups, or [...] place to sleep or slept in a residential (including now)? 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 PAID SEARCH ANALYST Gender Identity Not on file Sexual [...] on: 08/28/2022 08:31 AM Modules accepted: Orders SEARCH ANALYST * Telephone Encounter - Spring Brown - 08/28/2022 8:29 AM CST Roseanne called with recommendations. Sending in nitro to [facility] in [place]. SEARCH ANALYST * Telephone Encounter - Feliberto Ramey MD - 08/26/2022 11:06 AM PAID SEARCH ANALYST I do not for see any immediate need for testing for either Mr. Marquez or Mr. Palma. I think we should get Mr. Marquez a prescription for sublingual nitroglycerin and provided with instructions on howto use it. Please ask them to keep us updated. SEARCH ANALYST * Telephone Encounter - Spring Brown - 08/01/2022 10:00 AM PAID SEARCH ANALYST Received call from daughter Roseanne Noguera [phone] for follow up appt same day as her Luc Noguera on September 22 (scheduled) reporting some occasional chest pain a few times recently. Gets winded and tired easily. Wanting to know if any testing could be done that same day. Will Luc Noguera need an echo? Would like to arrange all testing and ov the same day. SEARCH ANALYST documented in this encounter Plan of Treatment Not on file documented as of this encounter Visit Diagnoses Not on filedocumented in this encounter Care Teams Admitting Office Escort Relationship Specialty Start Date End Date Brandon Sandoval MD PCP - General Internal Medicine 09/16/21 10/19/22 documented as of this encounter
--- OUTSIDE RECORDS SUMMARY | 2024-07-09 07:04 | XMS_ITS | Encounter Summary ---
Author Organization [facility] Address [address] [place] [address] Phone Care Team Providers Care Transmission Calibration Engineer Name Role Phone Brandon Sandoval MD Primary Care Provider [phone] Encounter Details Date Type Department Care Team (Late st Contact Info) Description 08/08/2021 Telephone [facility] - Neurology [facility] [address] [place] [address] Sabino Brownlee MD [address] [place] [address] Social History Tobacco Use Types [...] COVID-19? No / Unsure 08/08/2021 10:34 AM SHUTTLE FIXER documented as of this encounter Miscellaneous Notes [...] & they can do what they want. TLE FIXER documented in this encounter Plan of Treatment Not on file documented as of this encounter Visit Diagnoses Not on filedocumented in this encounter Care Teams Transmission Calibration Engineer Relationship Specialty Start Date End Date Brandon Sandoval MD PCP - General Internal Medicine 03/23/21 documented as of this encounter
--- OUTSIDE RECORDS SUMMARY | 2024-07-09 07:04 | XMS_ITS | Encounter Summary ---
Author Organization [facility] Medical Group Address [address] [facility] [address] [place] [address] Care Team Providers Care Furniture Cleaner Name Role Phone Brandon Sandoval MD Primary Care Provider + [phone] Encounter Details Date Type Department Care Team (Late st Contact Info) Description 10/06/[address] [facility] Medical [facility] Cardiology [address] [facility] [address] [place] [address] Feliberto Ramey MD [facility] [facility] [address] [place] [address] Social History Tobacco Use Types [...] any clubs o r organizations such as restoration groups, unions, fraternal or athletic groups, or [...] place to sleep or slept in a skilled nursing (including now)? 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 ELEMENTARY TUTOR Gender Identity Not on file Sexual Orientation [...] to know if would be okay with loan analyst to stop this medication. Or if there is something else pt can try for dizziness. Please advise [id number] burton documented in this encounter Plan of Treatment Not on file documented as of this encounter Visit Diagnoses Not on filedocumented in this encounter Care Teams Furniture Cleaner Relationship Specialty Start Date End Date Brandon Sandoval MD PCP - General Internal Medicine 09/16/21 10/19/22 documented as of this encounter
--- OUTSIDE RECORDS SUMMARY | 2024-07-09 07:04 | XMS_ITS | Encounter Summary ---
Author Organization [facility] Medical Group Address [address] [facility] [address] [place] [address] Care Team Providers Care Multigraph Operator Name Role Phone Miller Mcmanus MD Primary Care Provider [phone] Reason for Visit * Reason Comments Atrial Fibrillation Encounter Details Date Type Department Care Team (Late st Contact Info) Description 10/20/2022 2:15 PM CDT Office Visit [facility] Medical [facility] Cardiology [address] [facility] [address] [place] [address] Feliberto Ramey MD [address] [facility] [address] [place] [address] Chronic atrial fibrillation (HCC) (Primary [...] any clubs o r organizations such as uatsdin groups, unions, fraternal or athletic groups, or [...] place to sleep or slept in a mcc (including now)? 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 MASTER BARBER Gender Identity Not on file Sexual Orientation [...] from the original note were not included. [facility] Cardiology [address] [address] Cardiology Electrophysiology Ranjan Sauceda, MD Jet Leiva,, MD Brandon Andino, MD Lawrence Boateng, MD Mikey Mc, MD Arturo Leyva, MD Jose M Barker, MD Diaz Casillas, MD Keyona Sierra, BUILDING PERFORMANCE CONSULTANT Feliberto Ramey, MD Edson Young, MD Patrick Alexandra, MD Fernando Navas, DO Elmer Marquez, MD Salvador Lynn, MD Kyrie Zarate, BUILDING PERFORMANCE CONSULTANT Charlette Pace, BUILDING PERFORMANCE CONSULTANT Denise Srinivasan, BUILDING PERFORMANCE CONSULTANT Smiley Terrell, BUILDING PERFORMANCE CONSULTANT Patient Name: Noé Davila Provider: Feliberto Ramey MD : 1935 Date of Service: 10/20/2022 Provider Requesting Consult: Brandon Sandoval MD CHIEF COMPLAINT: Atrial Fibrillation HISTORY OF PRESENT ILLNESS: 86 y.o. male with a history of chronic atrial fibrillation ([id number]= 4; age, hypertension, peripheral arterial disease). Additional medical problems include a reported history of peripheral arterial disease for which he may have undergone peripheral stenting at [facility] and dementia. He reports he [...] 1 year (around 10/21/2023). Feliberto Ramey MD, [facility] documented in this encounter Miscellaneous Notes * [...] documented as of this encounter Care Teams Multigraph Operator Relationship Specialty Start Date End Date Miller Mcmanus MD [address] [address] PCP - General Family Medicine 10/20/22 documented as of this encounter
--- OUTSIDE RECORDS SUMMARY | 2024-07-09 07:04 | XMS_ITS | Encounter Summary ---
Author Organization [facility] Address [address] [place] [address] Phone Care Team Providers Care Starch And Prosize Mixer Name Role Phone Brandon Sandoval MD Primary Care Provider [phone] Encounter Details Date Type Department Care Team (Late st Contact Info) Description 08/22/2021 Telephone [facility] - Neurology [facility] [address] [place] [address] Sabino Brownlee MD [address] [place] [address] Social History Tobacco Use Types [...] COVID-19? No / Unsure 08/08/2021 10:34 AM INFORMATION TECHNOLOGY ADMINISTRATOR documented as of this encounter Miscellaneous Notes * Telephone Encounter - Cherise Laughlin RN - 08/22/2021 3:58 PM CST pts daughter called stating her dad took the first increased dose of aricept 10 mg last night and has been dizzy all day. Per Dr Brownlee, go back to original dose of 5 mg. pts daughter states understanding. RMATION TECHNOLOGY ADMINISTRATOR documented in this encounter Plan of Treatment Not on file documented as of this encounter Visit Diagnoses Not on filedocumented in this encounter Care Teams Starch And Prosize Mixer Relationship Specialty Start Date End Date Brandon Sandoval MD PCP - General Internal Medicine 03/23/21 documented as of this encounter
--- OUTSIDE RECORDS SUMMARY | 2024-07-09 07:04 | XMS_ITS | Encounter Summary ---
Author Organization [facility] Healthcare Address [address] [place] [address] Care Team Providers Care Registered Medical Transcriptionist Name Role Phone Miller Mcmanus MD Primary Care Provider [phone] Reason for Visit * Reason Onset Date Comments INR reminder 01/31/2024 Encounter Details Date Type Department Care Team (Late st Contact Info) Description 01/31/[address] [facility] Medical Group Cardiology [address] [facility] [address] [place] [address] Feliberto Ramey MD [address] [facility] [address] [place] [address] INR reminder Social History Tobacco [...] any clubs o r organizations such as yarsani groups, unions, fraternal or athletic groups, or [...] slept in a penitentiary (including now)? No 12/30/2020 Personal Safety Answer Date Recorded Getting School Help Needed Not on file 07/30 Sex and Gender Information Value Date Recorded Sex Assigned at Not on file Legal Sex Male 3:40 AM DEVELOPMENT REPRESENTATIVE Gender Identity Not on file Sexual [...] on filedocumented in this encounter Care Teams Registered Medical Transcriptionist Relationship Specialty Start Date End Date Miller Mcmanus MD [address] [address] PCP - General Family Medicine 10/20/22 documented as of this encounter
--- OUTSIDE RECORDS SUMMARY | 2024-07-09 07:04 | XMS_ITS | Encounter Summary ---
Author Organization [facility] Address [address] [place] [address] Phone Care Team Providers Care Cannery Tender Engineer Name Role Phone Miller Mcmanus MD Primary Care Provider [phone] Encounter Details Date Type Department Care Team (Late st Contact Info) Description 07/19/2023 Orders Only [facility] [address] [place] [address] Unknown, Notinfile Social History Tobacco Use Types [...] on file Legal Sex Male 3:40 AM CURING PRESS OPERATOR Gender Identity Not on file Sexual Orientation Not on file documented as of this encounter Plan of Treatment Not on file documented as of this encounter Procedures Procedure Name Priority Date/Time Associated Diagnosis Comments SURGICAL PATHOLOGY Routine 07/19/2023 3: 54 PM CURING PRESS OPERATOR documented in this encounter Results * Surgical pathology (07/19/2023 3:54 PM CURING PRESS OPERATOR) Skin, shave biopsy 07/19/2023 3:54 PM CURING PRESS OPERATOR 07/31/2023 6:35 AM CURING PRESS OPERATOR Narrative 08/01/2023 12:54 PM CURING PRESS OPERATOR EPIC results best viewed via link to PDF [facility] [address] [place] [address] [address] [place] [address] ? [email or web address] Note to Patients: ??This report may contain [...] details. FINAL REPORT Patient Information: PATIENT NAME: ??NOÉ COWAN ? SEX: ??M ? : ??1935 (Age: 87) ? Specimen Information: COLLECTED: ??07/19/2023 ? RECEIVED: ??07/31/2023 ? REPORTED: ??08/01/2023 ? Submitting Physician Information: Ariadna Granda, [facility], [address] [place] [id number], ? DERMATOPATHOLOGY REPORT RESULTS ?? DIAGNOSIS: A. [...] ICD-9 ZSD.1474 ZSD.1469 ? Clerical Data A; 83083 B; 88583 The characteristics of special, immunohistochemical, and immunofluorescence stains and in-situ hybridization tests performed by the [facility] were deemed acceptable in ongoing senior manager quality assurance measures and in compliance with regulations drawn from the Clinical Laboratory Improvement Act wb9083 (CLIA '88). Control reactions for all stains performed were deemed adequate and appropriate by a pathologist prior to evaluation of patient tissue. Some diagnoses were rendered with the assistance of laboratory-developed tests utilizing analyte-specific reagents; the performance characteristic of these tests were determined by [facility] and are not cleared or approved by the [place] Food an Drug administration. Laboratory developed test may only be performed in a facility that is certified by the [facility] as a high-complexity laboratory under CLIA '88. These tests are used for clinical purposes and are not investigational. us Notinfile Unknown LAB PATHOLOGY ORDERABLES Final Result documented in this encounter Visit Diagnoses Not on filedocumented in this encounter Care Teams Cannery Tender Engineer Relationship Specialty Start Date End Date Miller Mcmanus MD [address] [address] PCP - General Family Medicine 10/20/22 documented as of this encounter
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
--- OUTSIDE RECORDS SUMMARY | 2024-07-09 07:04 | XMS_ITS | Referral Summary ---
Author Organization [facility] Address [address] [place] [id number] Care Team Providers Care Bundle Wrapper Name Role Phone Miller Mcmanus MD Primary Care Provider [phone] Encounters Date Type Department Care Team Description 06/26/2024 Telephone [facility] Cardiology [address] [facility] [address] [place] [address] Feliberto Ramey MD INR from [...] Active Problems Problem Noted Date Diagnosed Date detention (current) use of anticoagulants 2023 Peripheral arterial [...] (09/21/2020 11:17 AM CDT): Will fill out hook up driver form as I don't feel patient [...] ordered Assessment & Plan (07/28/2020 9:42 AM SOLICITING FREIGHT AGENT): Likely related to uncontrolled allergies, though not [...] others. Assessment & Plan (05/06/2020 11:31 PM SOLICITING FREIGHT AGENT): Unsure exact cause. Depression vs nutrition vs dehydration vs possible parkinsons?? Consult ACO He is recently less than 2 years ago. No family or friend support. Probable poor nutrition. Difficulty getting him to take meds as intended. Frequent falls 05/06/2020 Assessment & Plan (11/03/2020 12:12 PM CDT): Pt refuses cane or walker for ambulation. Assessment & Plan (05/06/2020 11:40 PM SOLICITING FREIGHT AGENT): Refuses neuro or PT consult. I think he falls more from flexing his neck versus position changes, stumbling, or orthostasis. During the office visit that took at least 40 minutes, I spent over 50% of the time either counseling, educating, discussing plan of treatment, or answering questions today. Tremor, unspecified 05/06/2020 Assessment & Plan (05/06/2020 11:33 PM SOLICITING FREIGHT AGENT): Refuses consult with neuro or anything that might cost him money. Trial Requip (ropinirole) 0.25mg tid. Consult ACO Illiteracy 05/06/2020 Weight loss 01/26/2020 Assessment & Plan (07/28/2020 7:23 PM SOLICITING FREIGHT AGENT): Stable with Mirtazapine. Will increase the Mirtazapine to 30mg today. Assessment & Plan (05/06/2020 11:37 PM SOLICITING FREIGHT AGENT): Possible improvement with Mirtazapine (if he is [...] 8:55 AM CDT): Will refill Cardura to [employer] [facility] program. Hopefully this will allow patient to easy to access his medications. Will also order home health for social work and nursing services. With his blood pressure a elevated he likely needs a nurse to check this and assist him with medications. He is not cognitively aware enough to do this himself. Assessment & Plan (07/28/2020 7:26 PM SOLICITING FREIGHT AGENT): Will increase the doxazosin from 1 mg [...] readings. Assessment & Plan (07/28/2019 11:16 PM SOLICITING FREIGHT AGENT): New diagnosis. Start doxazosin (Cardura) for combined benefit of HTN and BPH. Call back with update in 2-3 weeks and blood pressure readings if possible. Chronic rhinitis 07/28/2019 Assessment & Plan (07/28/2019 11:20 PM SOLICITING FREIGHT AGENT): Start Flonase (fluticasone). Demonstrated use. Hearing difficulty of both ears 12/18/2018 Assessment & Plan (07/28/2020 7:45 PM SOLICITING FREIGHT AGENT): Tried to clean out ears today. Assessment & Plan (01/26/2020 11:12 AM CDT): Did not go to audiology due to cost. Assessment & Plan (12/18/2018 9:24 PM CDT): Audiology consult. 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 LDL is controlled well. Prediabetes 06/18/2017 Assessment & Plan (07/28/2020 7:21 PM SOLICITING FREIGHT AGENT): Will check new labs and make adjustments if needed. Assessment & Plan (01/26/2020 11:07 AM CDT): Will recheck fasting glucose today. Assessment & Plan (07/28/2019 11:16 PM SOLICITING FREIGHT AGENT): Get new labs Assessment & Plan (12/18/2018 9:23 PM CDT): Lower carb diet recommended. Assessment & Plan (06/18/2017 1:26 PM SOLICITING FREIGHT AGENT): Please cut down on sweets. Chronic idiopathic constipation 12/13/2016 Assessment & Plan (07/28/2020 7:21 PM SOLICITING FREIGHT AGENT): Chronic & stable on meds. Continue current [...] Lipitor. Assessment & Plan (07/28/2020 7:43 PM SOLICITING FREIGHT AGENT): Chronic & stable on meds. Continue current treatment. Assessment & Plan (01/26/2020 11:06 AM CDT): Stop rosuvastatin and start atorvastatin 20mg due to cost. Check labs today. Assessment & Plan (07/28/2019 11:20 PM SOLICITING FREIGHT AGENT): Get updated labs soon. Assessment & Plan (12/18/2018 9:23 PM CDT): Chronic & stable on meds. Continue current treatment. Assessment & Plan (06/18/2018 2:20 PM SOLICITING FREIGHT AGENT): Chronic & stable on meds. Continue current treatment. Assessment & Plan (03/29/2018 1:48 PM CDT): LDL was 69 on 12/10/2017. Continue Mevacor treatment Assessment & Plan (12/17/2017 9:41 PM CDT): Chronic & stable on meds. Continue current treatment. Assessment & Plan (06/18/2017 1:26 PM SOLICITING FREIGHT AGENT): Chronic & stable on meds. Continue current [...] draws. Assessment & Plan (06/18/2018 2:20 PM SOLICITING FREIGHT AGENT): Chronic & stable on meds. Continue current [...] INR Assessment & Plan (06/18/2017 1:27 PM SOLICITING FREIGHT AGENT): Chronic & stable on meds. Continue current [...] pharmacy Assessment & Plan (07/28/2020 7:38 PM SOLICITING FREIGHT AGENT): Increase the Mirtazapine to 30mg daily and stop the Amitriptyline 10 mg daily, especially since he has constipation. Assessment & Plan (05/06/2020 11:37 PM SOLICITING FREIGHT AGENT): Patient symptomatic and not sure if he [...] treatment. Assessment & Plan (06/18/2018 2:20 PM SOLICITING FREIGHT AGENT): Chronic & stable on meds. Continue current treatment. Assessment & Plan (06/18/2017 1:26 PM SOLICITING FREIGHT AGENT): Chronic & stable on meds. Continue current treatment. Assessment & Plan (12/13/2016 3:05 PM CDT): Doing well with current treatment program and medications. No changes today Chronic obstructive pulmonary disease 02/15/2015 Assessment & Plan (07/28/2020 7:42 PM SOLICITING FREIGHT AGENT): Stable with out prescription medication. He feels [...] treatment. Assessment & Plan (06/18/2018 2:20 PM SOLICITING FREIGHT AGENT): Stable without regular use of inhalers. Assessment [...] medication(s) Assessment & Plan (07/28/2020 7:41 PM SOLICITING FREIGHT AGENT): Increase the doxazosin from 1 mg to 2 mg. Assessment & Plan (01/26/2020 11:09 AM CDT): Patient only took the doxazosin a couple times. Stop completely due to not taking it regularly and some lightheadedness when standing. Assessment & Plan (07/28/2019 11:16 PM SOLICITING FREIGHT AGENT): Start doxazosin (Cardura). Patient opted out of getting PSA testing at this time. Resolved Problems Problem Noted Date Diagnosed Date Resolved Date Late onset Alzheimer's disea se without behavioral disturbance 09/20/2020 09/20/2020 Bilateral impacted cerumen 07/28/2020 0 09/17/2020 Assessment & Plan (07/28/2020 7:22 PM SOLICITING FREIGHT AGENT): Ear irrigation today. Encounter for Medicare annual [...] 12/18/19 Assessment & Plan (06/18/2017 1:20 PM SOLICITING FREIGHT AGENT): These look like a type of squamous [...] often do you attend chur ch or sabianist services? Never 05/13/2020 Do you belong to [...] a long term (including now)? No 12/30/2020 Personal Safety Answer Date Recorded Getting School Help Needed Not on file 07/30 Sex and Gender Information Value Date Recorded Sex Assigned at Not on file Legal Sex Male 3:40 AM SOLICITING FREIGHT AGENT Gender Identity Not on file Sexual Orientation [...] Advance Directives For more information, please contact: [phone] Documents on File Type Date Recorded Patient Ship Washer Expl anation ADVANCE DIRECTIVE 09/16/2021 9:00 AM Power of Apricot Packer-Medical ADVANCE DIRECTIVE 06/23/2021 4:03 PM Annabel r of Apricot Packer-Medical ADVANCE DIRECTIVE 03/05/2019 10:13 AM POWER OF COUPON CLERK-MEDICAL ADVANCE DIRECTIVE 03/04/2019 2:22 PM POWER OF COUPON CLERK-MEDICAL Care Teams Bundle Wrapper Relationship Specialty Start Date End Date Miller Mcmanus MD [address] [address] PCP - General Family Medicine 10/20/22
--- OUTSIDE RECORDS SUMMARY | 2024-07-09 07:04 | XMS_ITS | Encounter Summary ---
Author Organization [facility] Healthcare Address [address] [place] [address] Care Team Providers Care Cloth Tester Quality Name Role Phone Miller Mcmanus MD Primary Care Provider [phone] Reason for Visit * Reason Onset Date Comments starting coumadin INRs 11/09/2023 Encounter Details Date Type Department Care Team (Late st Contact Info) Description 11/09/2023 Telephone [facility] Cardiology [address] [facility] [address] [place] [id number] Feliberto Ramey MD [address] [facility] [address] [place] [address] starting coumadin INRs Social History [...] in a halfway (including now)? No 12/30/2020 Personal Safety Answer Date Recorded Getting School Help Needed Not on file 07/30 Sex and Gender Information Value Date Recorded Sex Assigned at Not on file Legal Sex Male 3:40 AM TRIM CARPENTER Gender Identity Not on file Sexual Orientation Not on file documented as of this encounter Miscellaneous Notes * Telephone Encounter - Patrick Dick RN - 11/13/2023 4:13 PM CDT Spoke to pt dtr and Roseanne RITCHIE. Gave initial coumadin education (~40 min). Answered initial questions. Sent script to [facility] in [place]. Sent INR order to [facility]. Home testing [...] on filedocumented in this encounter Care Teams Cloth Tester Quality Relationship Specialty Start Date End Date Miller Mcmanus MD [address] [address] PCP - General Family Medicine 10/20/22 documented as of this encounter
--- OUTSIDE RECORDS SUMMARY | 2024-07-09 07:04 | XMS_ITS | Encounter Summary ---
Author Organization [facility] Address [address] [place] [address] Phone Care Team Providers Care Restaurant Crew Member Name Role Phone Brandon Sandoval MD Primary Care Provider [phone] Encounter Details Date Type Department Care Team (Late st Contact Info) Description 05/05/2021 11:50 AM CDT [facility] [address] [place] [address] Sabino Brownlee MD [address] [place] [address] Dementia without behavioral disturbance, unspecified dementia type [...] 12.00 10(3)/mcL 05/05/2021 1:00 PM CDT [facility] RBC 4.99 4.40 - 5.80 10(6)/mcL 05/05/2021 1:00 PM CDT [facility] HEMOGLOBIN (HGB) 15.6 13.0 - 16.5 g/dL 05/05/2021 1:00 PM CDT [facility] HEMATOCRIT (HCT) 48.4 38.0 - 50.0 % 05/05/2021 1:00 PM CDT [facility] MCV 97.0(H) 82.0 - 96.0 fL 05/05/2021 1:00 PM CDT [facility] MCH 31.3 26.0 - 32.0 pg 05/05/2021 1:00 PM CDT [facility] MCHC 32.2 31.0 - 36.0 g/dL 05/05/2021 1:00 PM CDT [facility] PLATELET COUNT 165 140 - 440 10(3)/mcL 05/05/2021 1:00 PM CDT [facility] RDW 12.9 11.8 - 15.5 % 05/05/2021 1:00 PM CDT [facility] MPV 11.6 8.0 - 12.6 fL 05/05/2021 1:00 PM CDT [facility] NEUTROPHILS 77.5(H) 40.0 - 68.0 % 05/05/2021 1:00 PM CDT [facility] LYMPHOCYTES 13.0(L) 19.0 - 49.0 % 05/05/2021 1:00 PM CDT [facility] MONOCYTES 6.1 3.0 - 13.0 % 05/05/2021 1:00 PM CDT [facility] EOSINOPHILS 2.5 0.0 - 8.0 % 05/05/2021 1:00 PM CDT [facility] BASOPHILS 0.9 0.0 - 1.0 % 05/05/2021 1:00 PM CDT [facility] ABSOLUTE NEUTROPHILS 4.28 1.40 - 5.30 10(3)/mcL 05/05/2021 1:00 PM CDT [facility] ABSOLUTE LYMPHOCYTES 0.72(L) 0.90 - 3.30 10(3)/mcL 05/05/2021 1:00 PM CDT [facility] ABSOLUTE MONOCYTES 0.34 0.10 - 0.90 10(3)/mcL 05/05/2021 1:00 PM CDT [facility] ABSOLUTE EOSINOPHIL 0.14 0.00 - 0.50 10(3)/mcL 05/05/2021 1:00 PM CDT [facility] ABSOLUTE BASOPHILS 0.05 0.00 - 0.10 10(3)/mcL 05/05/2021 1:00 PM CDT [facility] NRBC PER 100 WBC 0 05/05/20 1:00 PM CDT [facility] Blood Venipuncture / Unknown 05/05/2021 11:42 AM CDT 05/05/2021 12:56 PM CDT Sabino Brownlee MD HEMATOLOGY ORDERABLES Final Result [facility] [address] [place] [address] * (ABNORMAL) METHYLMALONIC ACID, QN, MMAS (05/05/2021 11:42 AM CDT) METHYLMALONIC ACID, QN 0.50(H) <=0.40 nmol/mL 05/11/2021 11:55 AM [facility] Comment: In this sample, the concentration of methylmalonic acid (MMA) was minimally elevated. As the upper limit of the reference range varies in different laboratories from 0.4 to 0.6 nmol/mL. This finding could be considered normal, especially if the patient does not show other signs of vitamin B12 deficiency. ADDITIONAL INFORMATION This test was developed and its performance characteristics determined by [facility] in a manner consistent with CLIA requirements. This test has not been cleared or approved by the U.S. Food and Drug Administration. Test Performed by: [facility] - [address] [address] Animal Researcher: Gomez Avila M.D. Ph.D.; CLIA# [id number] Blood Venipuncture / Unknown 05/05/2021 11:42 AM CDT 05/05/2021 12:56 PM CDT Sabino Brownlee MD LAB SEND OUTS Final Result [facility] [address] [place] [address], [place] * (ABNORMAL) CMP (COMPREHENSIVE METABOLIC PANEL) (05/05/2021 11:42 AM CDT) SODIUM 139 136 - 144 mmol/L 05/05/2021 1:41 PM CDT [facility] POTASSIUM 3.8 3.5 - 5.1 mmol/L 05/05/2021 1:41 PM CDT [facility] CHLORIDE 103 100 - 110 mmol/L 05/05/2021 1:41 PM CDT [facility] CO2, VENOUS 25 22 - 32 mmol/L 05/05/2021 1:41 PM CDT [facility] ANION GAP 14.8 8.0 - 20.0 mmol/L 05/05/2021 1:41 PM CDT [facility] GLUCOSE 111(H) 70 - 99 mg/dL 05/05/2021 1:41 PM CDT [facility] BUN 19 8 - 23 mg/dL 05/05/2021 1:41 PM CDT [facility] CREATININE, BLOOD 0.79(L) 0.80 - 1.30 mg/dL 05/05/2021 1:41 PM CDT [facility] BUN/CREATININE RATIO 24(H) 12 - 20 ratio 05/05/2021 1:41 PM CDT [facility] TOTAL PROTEIN 7.2 6.0 - 8.3 g/dL 05/05/2021 1:41 PM CDT [facility] ALBUMIN 4.4 3.5 - 5.2 g/dL 05/05/2021 1:41 PM CDT [facility] Comment: The colormetric methods used for the determination of Albumin may lead to falsely elevated test results in patients suffering from renal failure or insufficiency due to interference with other proteins. A/G RATIO 1.6 1.0 - 2.0 05/05/2021 1:41 PM CDT [facility] CALCIUM 9.5 8.9 - 10.3 mg/dL 05/05/2021 1:41 PM CDT [facility] T BILI 0.9 <=1.2 mg/dL 05/05/2021 1:41 PM CDT [facility] SGOT (AST) 17 <=40 U/L 05/05/2021 1:41 PM CDT [facility] SGPT (ALT) 13 <=41 U/L 05/05/2021 1:41 PM CDT [facility] ALKALINE PHOSPHATASE 115 40 - 130 U/L 05/05/2021 1:41 PM CDT [facility] GFR, EST. NONAFRICAN >60 >=60 05/05/2021 1:41 PM CDT [facility] GFR, EST. >60 >=60 021 1:41 PM CDT [facility] Comment: Creatinine Clearance is the preferred criteria for selecting drug dose adjustments in renally impaired patients. ??The GFR is provided as additional pertinent clinical information. GFR is reported in mL/min/1.73 sq m. IS THE PATIENT REQUIRED TO BE FASTING? No 05/05/2021 1:41 PM CDT [facility] Blood Venipuncture / Unknown 05/05/2021 11:42 AM CDT 05/05/2021 12:55 PM CDT us Sabino Brownlee MD CHEMISTRY ORDERABLES Final R esult [facility] [address] [place] [address] * (ABNORMAL) THYROID STIMULATING HORMONE (TSH) (05/05/2021 11:42 AM CDT) TSH 0.224(L) 0.270 - 4.200 mIU/L 05/05/2021 1:41 PM CDT [facility] Blood Venipuncture / Unknown 05/05/2021 11:42 AM CDT 05/05/2021 12:55 PM CDT us Sabino Brownlee MD CHEMISTRY ORDERABLES Final R esult Performing Organization Address City/[facility] Co de Phone Number [facility] [address] [place] [address] * VITAMIN B12 (05/05/2021 11:42 AM CDT) VITAMIN B12 422 243 - 894 pg/mL 05/05/2021 1:52 PM CDT [facility] Blood Venipuncture / Unknown 05/05/2021 11:42 AM CDT 05/05/2021 12:56 PM CDT us Sabino Brownlee MD CHEMISTRY ORDERABLES Final R esult Performing Organization Address [facility] Co de Phone Number [facility] [address] [place] [address] documented in this encounter Visit Diagnoses Diagnosis Dementia without behavioral disturbance, unspecified dementia type documented in this encounter Care Teams Restaurant Crew Member Relationship Specialty Start Date End Date Brandon Sandoval MD PCP - General Internal Medicine 03/23/21 documented as of this encounter
--- OUTSIDE RECORDS SUMMARY | 2024-07-09 07:04 | XMS_ITS | Encounter Summary ---
Author Organization [facility] Care Team Providers Care Network Control Operator Name Role Phone Brandon Sandoval MD Primary Care Provider [phone] Encounter Details Date Type Department Care Team [...] COVID-19? No / Unsure 08/08/2021 10:34 AM ATOMIC PROCESS ENGINEER documented as of this encounter Plan of Treatment Not on file documented as of this encounter Visit Diagnoses Not on filedocumented in this encounter Care Teams Network Control Operator Relationship Specialty Start Date End Date Brandon Sandoval MD PCP - General Internal Medicine 03/23/21 documented as of this encounter
--- OUTSIDE RECORDS SUMMARY | 2024-07-09 07:04 | XMS_ITS | Encounter Summary ---
Author Organization [facility] Address [address] [place] [address] Phone Care Team Providers Care Vegetable Grader Name Role Phone Brandon Sandoval MD Primary Care Provider [phone] Encounter Details Date Type Department Care Team (Late st Contact Info) Description 05/06/2021 Telephone [facility] - [facility] [address] [place] [address] Sabino Brownlee MD [address] [place] [address] Social History Tobacco Use Types [...] finding documented in this encounter Care Teams Vegetable Grader Relationship Specialty Start Date End Date Brandon Sandoval MD PCP - General Internal Medicine 03/23/21 documented as of this encounter
--- OUTSIDE RECORDS SUMMARY | 2024-07-09 07:04 | XMS_ITS | Encounter Summary ---
Author Organization [facility] Address [address] [address] [place] [address] Care Team Providers Care Block Feeder Name Role Phone Brandon Sandoval MD Primary Care Provider [phone] Reason for Visit * Reason Comments Dizziness Encounter Details Date Type Department Care Team ([facility] st Contact Info) Description 09/16/2021 9:45 AM CDT Office Visit [facility] Medical [facility] Cardiology [address] [facility] [address] [place] [address] Feliberto Ramey MD [facility] [facility] [address] [place] [address] Chronic atrial fibrillation (HCC) (Primary [...] often do you attend chur ch or gnosticism services? Never 05/13/2020 Do you belong to [...] on file Legal Sex Male 3:40 AM DECKHAND CLAM DREDGE Gender Identity Not on file Sexual Orientation [...] from the original note were not included. [facility] Cardiology [address] [address] Cardiology Electrophysiology Ranjan Sauceda, MD Jet Leiva,, MD Brandon Andino, MD Richy Toure, MD Mikey Mc, MD Lawrence Boateng, MD Sin Albright, DO Arturo Leyva, MD Diaz Casillas, MD Keyona Sierra, RANGE MANAGER Feliberto Ramey, MD Naye Parker, MD Edson Young, MD Patrick Alexandra, MD Fernando Navas, DO Elmer Marquez, MD Salvador Lynn, MD Spring Anaya, RANGE MANAGER Denise Srinivasan, RANGE MANAGER Smiley Terrell, RANGE MANAGER Patient Name: Noé Davila Provider: Feliberto Ramey MD : 1935 Date of Service: 09/16/2021 Provider Requesting Consult: Brandon Sandoval MD CHIEF COMPLAINT: Dizziness HISTORY OF PRESENT ILLNESS: 85 y.o. male with a history of chronic atrial fibrillation ([id number]= 4; age, hypertension, peripheral arterial disease). Additional medical problems include a reported history of peripheral arterial disease for which he may have undergone peripheral stenting at [facility] and dementia. He is asking to transfer his care to this practice. In the patient is formally established [facility] and recently moved to be [...] 1 tablet (10 mg total) by mouth [id number] tablet 11 ??? [DISCONTINUED] rOPINIRole (REQUIP) 0.25 [...] 6 months (around 03/19/2022). Feliberto Ramey MD, [facility] documented in this encounter Miscellaneous [...] 3 added in this encounter Care Teams Block Feeder Relationship Specialty Start Date End Date Brandon Sandoval MD PCP - General Internal Medicine 09/16/21 10/19/22 documented as of this encounter
--- OUTSIDE RECORDS SUMMARY | 2024-07-09 07:04 | XMS_ITS | Encounter Summary ---
Author Organization [facility] Care Team Providers Care Cementer Machine Applicator Name Role Phone Brandon Sandoval MD Primary Care Provider [phone] Encounter Details Date Type Department Care Team [...] on filedocumented in this encounter Care Teams Cementer Machine Applicator Relationship Specialty Start Date End Date Brandon Sandoval MD PCP - General Internal Medicine 03/23/21 documented as of this encounter
--- OUTSIDE RECORDS SUMMARY | 2024-07-09 07:04 | XMS_ITS | Clinical Summary ---
Author Organization [facility] Address [address] [place] [address] Phone Care Team Providers Care Candy Attendant Name Role Phone Brandon Sandoval MD Primary Care Provider [phone] Allergies No known active allergies Medications aspirin [...] Comments Blood Pressure 166/90 08/08/2021 10:50 AM LEDGE MAN Pulse 86 08/08/2021 10:50 AM LEDGE MAN Temperature 37.1 ??C (98.8 ??F) 08/08/2021 10:[address] Respiratory Rate 16 08/08/2021 10:50 AM LEDGE MAN Oxygen Saturation 95% 08/08/2021 10:50 AM LEDGE MAN Inhaled Oxygen Concentration - - Weight 69.4 kg (153 lb 1.6 oz) 08/08/2021 10:50 AM LEDGE MAN Height 181.9 cm (5' 11.6 ) 08/08/2021 10:[address] Body Mass Index 21 08/08/2021 10:50 AM LEDGE MAN Plan of Treatment Health Maintenance Due Date [...] Documents on File Type Date Recorded Patient Cook Apprentice Pastry Expl anation Power of Checker Cashier for Health Care 06/29/2021 10:02 AM Care Teams Candy Attendant Relationship Specialty Start Date End Date Brandon Sandoval MD PCP - General Internal Medicine 03/23/21
--- OUTSIDE RECORDS SUMMARY | 2024-07-09 07:04 | XMS_ITS | Encounter Summary ---
Author Organization [facility] Healthcare Address [address] [place] [address] Care Team Providers Care Custom Bookbinder Name Role Phone Miller Mcmanus MD Primary Care Provider [phone] Reason for Visit * Reason Comments Atrial Fibrillation Encounter Details Date Type Department Care Team ([facility] st Contact Info) Description 10/26/2023 9:45 AM CDT Office Visit [facility] Medical Group Cardiology [address] [address] Feliberto Ramey MD [address] [place] [address] [address] [place] [address] Chronic atrial fibrillation (HCC) (Primary [...] in a residential (including now)? No 12/30/2020 Personal Safety Answer Date Recorded Getting School Help Needed Not on file 07/30 Sex and Gender Information Value Date Recorded Sex Assigned at Not on file Legal Sex Male 3:40 AM WOMEN NURSE Gender Identity Not on file Sexual Orientation [...] from the original note were not included. [facility] Cardiology [address] [address] Cardiology Electrophysiology Ranjan Sauceda, MD Jet Leiva, MD Brandon Andino, MD Brady Mcgee, MD Mikey Mc, MD Lawrence Boateng, MD Arturo Leyva, MD Jose M Barker, MD Spring Bojorquez, DYLAN Casillas, MD Keyona Sierra, DYLAN Ramey, MD Shannan Valverde, ENDOSCOPIC TECHNICIANAdrián Young, MD Patrick Alexandra, MD Elmer Marquez, MD Salvador Lynn, MD Brandon Robles, PA Mira Yates, PA Charlette Pace, RETIREMENT SALES CONSULTANT Denise Srinivasan, RETIREMENT SALES CONSULTANT Smiley Terrell, RETIREMENT SALES CONSULTANT Patient Name: Noé Davila Provider: Feliberto Ramey MD : 1935 Date of Service: 10/26/2023 Provider Requesting Consult: Miller Mcmanus MD CHIEF COMPLAINT: Atrial Fibrillation HISTORY OF PRESENT ILLNESS: 87 y.o. male with a history of chronic atrial fibrillation ([id number]= 4; age, hypertension, peripheral arterial disease). Additional medical problems include a reported history of peripheral arterial disease for which he may have undergone peripheral stenting at [facility] and dementia. Since his last appointment [...] 1 year (around 10/25/2024). Feliberto Ramey MD, [facility] documented in this encounter Miscellaneous Notes * [...] documented as of this encounter Care Teams Custom Bookbinder Relationship Specialty Start Date End Date Miller Mcmanus MD [address] [address] PCP - General Family Medicine 10/20/22 documented as of this encounter
--- OUTSIDE RECORDS SUMMARY | 2024-07-09 07:05 | XMS_ITS | Encounter Summary ---
Author Organization [facility] Medical [facility] Address [address] [place] [address] Care Team Providers Care Improvement Leader Name Role Phone Violeta Casillas Primary Care Provider + Spring Banerjee RN Unavailable [phone] Reason for Visit * Reason Onset Date Comments Patient issue/concern 07/20/2020 Encounter Details Date Type Department Care Team (Late st Contact Info) Description 07/20/2020 Telephone [facility] [address] [place] [address] Spring Banerjee, TIFFANY [address] [place] [address] [address] [place] [address] Patient issue/concern Social History Tobacco Use Types [...] on file Legal Sex Male 3:40 AM CUSTODIAN SUPERVISOR Gender Identity Not on file Sexual Orientation Not on file documented as of this encounter Miscellaneous Notes * Telephone Encounter - Ruth Farmer LPN - 07/21/2020 3:21 PM CST Med list faxed to pharmacy ODIAN SUPERVISOR * Telephone Encounter - Violeta Casillas DO - 07/21/2020 12:55 PM CUSTODIAN SUPERVISOR Please fax pharmacy current list and/or prescriptions as needed. ODIAN SUPERVISOR * Telephone Encounter - Spring Banerjee RN - 07/21/2020 9:07 AM CUSTODIAN SUPERVISOR Pill packets can be mailed to the pt (for free) from [facility]. Pt has agreed to change his pharmacy. [facility] will need pt's current med list, face sheet, and insurance information faxed to Yakelin at [phone]. -- please have have your office staff fax this. FYI This Pharmacy has recommended pt be enrolled into their Sink Program. This program will contactyour office monthly to assess for changes to pt's Coumadin dosing. -- pt has agreed to this too Mariana will set this up. THANK YOU Spring HAQUE RN [facility] Equipment Application Specialist [phone] ODIAN SUPERVISOR * Telephone Encounter - Violeta Casillas DO - 07/20/2020 6:21 PM CUSTODIAN SUPERVISOR How do I do pill packs? He is so unreliable I need the home INR to keep warfarin in correct, safe range. Other meds are extremely expensive. ODIAN SUPERVISOR * Telephone Encounter - Spring Banerjee RN - 07/20/2020 12:32 PM CUSTODIAN SUPERVISOR I spoke with the [facility] Complex Care Patient for routine outreach and [...] care of this patient. Spring HAQUE RN [facility] - [facility]CO Equipment Application Specialist [phone] ODIAN SUPERVISOR documented in this encounter Plan of Treatment Not on file documented as of this encounter Visit Diagnoses Not on filedocumented in this encounter Care Teams Improvement Leader Relationship Specialty Start Date End Date Violeta Casillas DO PCP - General 09/29/16 09/15/21 Spring Banerjee RN [address] [place] [address] [address] [place] [address] Equipment Application Specialist 05/07/20 12/29/20 documented as of this encounter
--- OUTSIDE RECORDS SUMMARY | 2024-07-09 07:05 | XMS_ITS | Encounter Summary ---
Author Organization [facility] Medical Group Address [address] [place] [address] Care Team Providers Care Baking Powder Mixer Name Role Phone Violeta Casillas Primary Care Provider + Spring Banerjee RN Unavailable [phone] Nancy Mcgregor [facility] Unavailable [phone] Reason for Visit * Reason Comments Med Management Encounter Details Date Type Department Care Team (Late st Contact Info) Description 09/29/[address] [facility] Accountable Care Organization [address] [place] [address] Nancy Mcgregor, [facility] [address] [facility] [address] [place] [address] Social History Tobacco Use Types Packs/Day Years [...] on file Legal Sex Male 3:40 AM ENGRAVER WOOD Gender Identity Not on file Sexual Orientation Not on file documented as of this encounter Miscellaneous Notes * Telephone Encounter - Nancy Busch RPh - 09/29/2020 3:47 PM CDT [facility] Clinical Pharmacist Outreach Pertinent Subjective/Objective: Patient was referred by [facility] Care Mgmt team leader surgery; referral reason: medication adherence and cost of medication consult. Called patient's pharmacy ([facility] Patient does not have prescription coverage. Therefore, despite only generics prescribed, medications are still expensive. Patient would benefit fromspeaking with social work instructor to discuss possible qualification of Medicaid, prescription benefits, and other resources. Patient was previously filling medications at [facility] and reportedly able to afford medications. Appears then patient switched to [facility] for pill packing but prices are a little bit more expensive. Patient told [facility] that he does not want to fill with them dueto higher cost and wants to switch everything back to [facility]. Medications were returned to [facility] and refund to patient was granted. Uncertain if medications were transferred back to [facility]. [facility] has many resources available for patient. Including [...] ??? Patient does not have medication insurance. [facility] pharmacy will have better montano is but they do not have additional resources like pill packing or script talk like [facility] provides. ??? Personally, script ox sounds like a great resource for patient but medication cost would be higher and patient has previously declined use of script talk. ??? Pharmacy could consider creating individualized medication calendar with pictures instead of words for patient however would not be able to add picture of pills dispensed without speaking with pharmacy to get exact sales agent insurance dispensed. ??? Overall, patient would likely benefit from social work. Referral placed to [facility] social work for assessment of additional resources patient may qualify for. Follow-up: with this investigative writer via telephone in approximately 7 day(s) for check in. The visit was approximately 20 minutes in duration, all of which was via telephone. The patient wasnot contacted during this encounter. Emani Busch, PharmD Clinical Pharmacist [facility] Medical Group ([facility]) & [facility] This note was created using voice recognition software. Grammatical and spelling errors may exist. If you have any questions or concerns please contact me. documented in this encounter Plan of Treatment Not on file documented as of this encounter Visit Diagnoses Not on filedocumented in this encounter Care Teams Baking Powder Mixer Relationship Specialty Start Date End Date Vinny Violeta Alfaro PCP - General 09/29/16 09/15/21 Spring Banerjee RN [address] [place] [address] [address] [place] [address] Research Home Economist 05/07/20 12/29/20 Nancy Mcgregor RPh [address] [place] [address] [address] [place] [address] Pharmacist Pharmacy 09/29/20 12/12/20 documented as of this encounter
--- OUTSIDE RECORDS SUMMARY | 2024-07-09 07:05 | XMS_ITS | Encounter Summary ---
Author Organization [facility] Medical Group Address [address] [facility] [place] [address] Care Team Providers Care Supervisor Heat Treating Name Role Phone Violeta Casillas DO Primary Care Provider + Karlie Banerjee RN Unavailable [phone] Nancy Mcgregor [facility] Unavailable [phone] Elo Sánchez [facility] Unavailable [phone] Encounter Details Date Type Department Care Team (Late st Contact Info) Description 10/21/2020 Telephone [facility] [address] [place] [address] Violeta Casillas, [address] [place] [address] Social History Tobacco Use Types Packs/Day Years [...] often do you attend chur ch or mosque services? Never 05/13/2020 Do you belong to any clubs o r organizations such as mosque groups, unions, fraternal or athletic groups, or [...] No 05/13/2020 Housing Stability Vital Sign Answer Amrk e Recorded In the last 12 months, [...] slept in a intermediate (including now)? No 09/15/2020 Sex and Gender Information Value Date Recorded Sex Assigned at Not on file Legal Sex Male 3:40 AM CABLE WEAVER Gender Identity Not on file Sexual Orientation Not on file documented as of this encounter Miscellaneous Notes * Telephone Encounter - Alana Ayon - 10/22/2020 5:20 PM CDT Called and had a converastion with Mr Davila and he still does not agree with the outcome from thisvisit and he is going to leave it up to the paddock judge regarding his license. * Telephone Encounter - [...] beneficial in lowering the cost of INRs [facility] [address] [facility] [facility] [address] Accepts: Uninsured, Underinsured, Insurance, Medicare, Medicaid Income: All income levels accepted Fees: Sliding scale of fees based on income Please let me know how I can assist in the care of this patient Karlie HAQUE RN [facility] Land Acquisition Specialist [phone] * Telephone Encounter - Nguyễn Rueda - 10/21/2020 2:28 PM CDT Karlie [facility] case management called and she has [...] the message and her phone number is [phone] * Telephone Encounter - Violeta Casillas DO [...] filedocumented in this encounter Care Teams Supervisor Heat Treating Relationship Specialty Start Date End Date Violeta Casillas DO PCP - General 09/29/16 09/15/21 Karlie Banerjee RN [address] [place] [address] [address] [place] [address] Land Acquisition Specialist 05/07/20 12/29/20 Nancy Mcgregor, [address] [place] [address] Pharmacist Pharmacy 09/29/20 12/12/20 Elo Sánchez, [address] [place] [address] Taxi Servicer Service Electrician 09/30/20 11/03/20 documented as of this encounter
--- OUTSIDE RECORDS SUMMARY | 2024-07-09 07:05 | XMS_ITS | Encounter Summary ---
Author Organization [facility] Medical Group Address [address] [place] [address] Care Team Providers Care Auctioneer Art Name Role Phone Vinny Violeta Alfaro DO Primary Care Provider + Spring Banerjee RN Unavailable [phone] Encounter Details Date Type Department Care Team ([facility] Contact Info) Description 06/23/2020 9:45 AM RAILWAY SWITCH OPERATOR Lab Medical [address] Atrial fibrillation, unspecified type (CMS/HCC) Social [...] often do you attend chur ch or anabaptist services? Never 05/13/2020 Do you belong to [...] on file Legal Sex Male 3:40 AM RAILWAY SWITCH OPERATOR Gender Identity Not on file Sexual Orientation Not on file documented as of this encounter Plan of Treatment Not on file documented as of this encounter Procedures Procedure Name Priority Date/Time Associated Diagnosis Comments POCT INR Routine 06/23/2020 9:44 AM RAILWAY SWITCH OPERATOR Atrial fibrillation, unspecified type (CMS/HCC) documented in this encounter Results * POCT INR (06/23/2020 9:44 AM RAILWAY SWITCH OPERATOR) INR, POC 1.7 Blood specimen (specimen) (Blood, Venous) 06/23/2020 9:44 AM RAILWAY SWITCH OPERATOR Violeta Casillas DO POINT OF CARE TEST ORDER ANDREZ Final Result documented in this encounter Visit Diagnoses Diagnosis Atrial fibrillation, unspecified type (HCC) documented in this encounter Care Teams Auctioneer Art Relationship Specialty Start Date End Date Violeta Casillas DO PCP - General 09/29/16 09/15/21 Spring Banerjee, TIFFANY [address] [place] [address] [address] [place] [address] Orthodontic Treatment Coordinator 05/07/20 12/29/20 documented as of this encounter
--- OUTSIDE RECORDS SUMMARY | 2024-07-09 07:05 | XMS_ITS | Encounter Summary ---
Author Organization [facility] Medical Group Address [address] [place] [address] Care Team Providers Care Early Childhood Specialist Name Role Phone Violeta Casillas Primary Care Provider + Spring Banerjee RN Unavailable [phone] Nancy Mcgregor [facility] Unavailable [phone] Elo Sánchez [facility] Unavailable [phone] Reason for Visit * Reason Comments Med Management Med adherence check in Encounter Details Date Type Department Care Team (Late st Contact Info) Description 10/19/2020 ACO Clinical Pharmacist [facility] Accountable Care Organization [address] [place] [address] Nancy Mcgregor, [facility] [address] [facility] [address] [place] [address] Social History Tobacco Use Types Packs/Day Years [...] on file Legal Sex Male 3:40 AM PRINT WASHER Gender Identity Not on file Sexual Orientation Not on file documented as of this encounter Miscellaneous Notes * Telephone Encounter - Nancy Busch RPh - 10/19/2020 9:53 AM CDT ACO Clinical Pharmacist Outreach Pertinent Subjective/Objective: Patient was referred by [facility] Care Mgmt rock climbing team member; referral reason: medication adherence. Called patient to discuss medication adherence. States that his son is managing his medications forhim. Son is picking up medications and organizing them in weekly pill organizers for 2 weeks at a time. Patient reports still has picture med list that web content writer mailed to him for reference and states that is it helpful and denies any questions or concerns regarding it. Briefly discussed warfarin color tablet chart that web content writer mailed. Patient states also helpful and no questions, understands how to use if warfarin dose changes between time son comes to set up pill organizers. Assessment: #1 Med adherence ??? Medication therapy problem: none ??? Patient's son is assisting with medication needs (payment, set up). Patient does not have any additional needs at this time. Follow-up: with this web content writer via telephone in approximately 3 month(s) for med adherence check in. The visit was approximately 15 minutes in duration, all of which was via telephone. The patient wasengaged in shared-decision making throughout the encounter. The patient verbalized/demonstrated understanding and had no additional needs or questions at this time. This message was communicated to the referring [facility] Care Mgmt rock climbing team member} via routed note. Emani Busch, PharmD Clinical Pharmacist [facility] Medical Group ([facility]) & [facility] This note was created using voice recognition software. Grammatical and spelling errors may exist. If you have any questions or concerns please contact me. documented in this encounter Plan of Treatment Not on file documented as of this encounter Visit Diagnoses Not on filedocumented in this encounter Care Teams Early Childhood Specialist Relationship Specialty Start Date End Date Violeta Casillas DO PCP - General 09/29/16 09/15/21 Spring Banerjee RN [address] [place] [address] [address] [place] [address] Cover Creaser 05/07/20 12/29/20 Nancy Mcgregor RPh [address] [place] [address] [address] [place] [address] Pharmacist Pharmacy 09/29/20 12/12/20 Elo Sánchez, [address] [place] [address] Button Attaching Machine Operator Cad Draftsman 09/30/20 11/03/20 documented as of this encounter
--- OUTSIDE RECORDS SUMMARY | 2024-07-09 07:05 | XMS_ITS | Encounter Summary ---
Author Organization [facility] Healthcare Address [address] [place] [address] Care Team Providers Care Special Education Professor Name Role Phone Violeta Casillas DO Primary Care Provider + Spring Banerjee RN Unavailable [phone] Nancy Mcgregor [facility] Unavailable [phone] Reason for Referral * Diagnostic Imaging (Routine) - Closed Specialty Diagnoses / Procedures Referred By Contac t Referred To Contact Diagnoses Vertigo Dizziness Procedures Vl US Carotids Villa Esquivel NP [address] [place] [place] [address] Phone: tel: fax: [address] [phone] Referral ID Status Reason Start Date Expiration Date Visits Re quested Visits Authorized [id number] Closed 11/03/2020 12/03/2021 1 1 Reason for Visit * Diagnostic Imaging (Routine) - Closed Specialty Diagnoses / Procedures Referred By Contac t Referred To Contact Diagnoses Vertigo Dizziness Procedures Vl US Carotids Villa Esquivel NP [address] [place] [place] [address] Phone: tel: fax: [address] [address] Referral ID Status Reason Start Date Expiration Date Visits Re quested Visits Authorized [id number] Closed 11/03/2020 12/03/2021 1 1 Encounter Details Date Type Department Care Team (Latest Contact Info) Description 11/17/2020 8:14 AM CDT - 11/17/2020 11:59 PM CDT Hospital Encounter [facility] Imaging Services [address] [place] [id number] Violeta Casillas, DO [address] [place] [address] Villa Esquivel, GEM TECHNICIAN [address] [place] [address] Vertigo; Dizziness Discharge Disposition: Discharge to home [...] slept in a half-way (including now)? No 09/15/2020 Sex and Gender Information Value Date Recorded Sex Assigned at Not on file Legal Sex Male 3:40 AM LABORATORY CLERK Gender Identity Not on file Sexual [...] signed by: Abraham Lima M.D Villa Esquivel GEM TECHNICIAN IMRUST PROCEDURES Final Resu lt documented in this encounter Visit Diagnoses Diagnosis Vertigo Dizziness and giddiness Dizziness Dizziness and giddiness documented in this encounter Care Teams Special Education Professor Relationship Specialty Start Date End Date Violeta Casillas DO PCP - General 09/29/16 09/15/21 Spring Banerjee RN [address] [place] [address] [address] [place], [place] [id number] Lead Radiation Therapist 05/07/20 12/29/20 Nancy Mcgregor RPh [address] [facility] [address] [place] [address] Pharmacist Pharmacy 09/29/20 12/12/20 documented as of this encounter
--- OUTSIDE RECORDS SUMMARY | 2024-07-09 07:05 | XMS_ITS | Encounter Summary ---
Author Organization [facility] Medical Group Address [address] [facility] [address] [place] [address] Care Team Providers Care Database Reporting Consultant Name Role Phone Violeta Casillas Primary Care Provider + Spring Banerjee RN Unavailable [phone] Nancy Mcgregor [facility] Unavailable [phone] Elo Sánchez [facility] Unavailable Reason for Visit * Reason Comments Chart Review New Med List Encounter Details Date Type Department Care Team (Late st Contact Info) Description 10/26/2020 ACO Clinical Pharmacist Chart Review [facility] Accountable Care Organization [address] [place] [address] Nancy Mcgregor, [facility] [address] [facility] [address] [place] [address] Social History Tobacco Use Types Packs/Day Years [...] often do you attend chur ch or mandaen services? Never 05/13/2020 Do you belong to any clubs o r organizations such as rastafarian groups, unions, fraternal or athletic groups, or [...] slept in a custodial (including now)? No 09/15/2020 Sex and Gender Information Value Date Recorded Sex Assigned at Not on file Legal Sex Male 3:40 AM RESORT MANAGER Gender Identity Not on file Sexual Orientation Not on file documented as of this encounter Progress Notes * Nancy Busch RP - 10/26/2020 2:34 PM CDT Images from the original note were not included. [facility] Clinical Pharmacist Chart Review Pertinent Subjective/Objective: Patient was referred by [facility] Care Mgmt produce team lead; referral reason: medication adherence. PCP approved recommendation for initiation of aspirin 81mg daily upon discontinuation of warfarin. Created new med list. Mailed to patient. Follow-up: with this engineering technical writer via telephone as warranted The visit was approximately 15 minutes in duration, all of which was via chart review. The patient was not contacted during this encounter. Emani Busch PharmD Clinical Pharmacist [facility] Medical Group ([facility]) & [facility] This note was created using voice recognition software. Grammatical and spelling errors may exist. If you have any questions or concerns please contact me. documented in this encounter Plan of Treatment Not on file documented as of this encounter Visit Diagnoses Not on filedocumented in this encounter Care Teams Database Reporting Consultant Relationship Specialty Start Date End Date Violeta Casillas DO PCP - General 09/29/16 09/15/21 Spring Banerjee RN [address] [place] [address] [address] [place], [place] [id number] Mixer Machine Feeder 05/07/20 12/29/20 Nancy Mcgregor RPh [address] [place] [address] [address] [place] [address] Pharmacist Pharmacy 09/29/20 12/12/20 Elo Sánchez, IRRIGATION ENGINEER[address] [place] [address] Admissions Consultant Controls Engineer 09/30/20 11/03/20 documented as of this encounter
--- OUTSIDE RECORDS SUMMARY | 2024-07-09 07:05 | XMS_ITS | Encounter Summary ---
Author Organization [facility] Address [address] [facility] [address] [place] [address] Care Team Providers Care Dry Janitor Name Role Phone Violeta Casillas DO Primary Care Provider + Spring Banerjee RN Unavailable [phone] Nancy Mcgregor [facility] Unavailable [phone] Elo Sánchez [facility] Unavailable [phone] Reason for Visit * Reason Comments Follow-up Encounter Details Date Type Department Care Team (Late st Contact Info) Description 10/12/2020 1:00 PM CDT [facility] Visit [facility] [address] [place] [address] Violeta Casillas DO [address] [place] [address] Dementia (CMS/HCC) (Primary Dx); Cognitive impairment; Hypertension, [...] week 05/13/2020 How often do you attend [facility] or zoroastrian services? Never 05/13/2020 Do you belong to any clubs o r organizations such as mormonism groups, unions, fraternal or athletic groups, or [...] on file Legal Sex Male 3:40 AM MATERIAL SCHEDULER Gender Identity Not on file Sexual Orientation [...] histories in depth with patient and/or their technical sales representatives. Review of Systems PHQ Screening Physical Exam [...] Casillas DO This note was dictated using neoSaej voice recognition software. Variances in spelling and [...] hypertension documented in this encounter Care Teams Dry Janitor Relationship Specialty Start Date End Date Violeta Casillas DO PCP - General 09/29/16 09/15/21 Spring Banerjee, RN [address] [place] [address] [address] [place] [address] Real Estate Appraiser Supervisor 05/07/20 12/29/20 Nancy Mcgregor RPh [address] [place] [address] [address] [place] [address] Pharmacist Pharmacy 09/29/20 12/12/20 Elo Sánchez, [address] [place] [address] Pipe Fitter Supervisor Maintenance Radio Interference Supervisor 09/30/20 11/03/20 documented as of this encounter
--- OUTSIDE RECORDS SUMMARY | 2024-07-09 07:05 | XMS_ITS | Encounter Summary ---
Author Organization [facility] Medical [facility] Address [address] [facility] [address] [place] [address] Care Team Providers Care Travel Insurance Agent Name Role Phone Violeta Casillas DO Primary Care Provider + Spring Banerjee RN Unavailable [phone] Encounter Details Date Type Department Care Team (Late st Contact Info) Description 07/06/2020 Orders Only [facility] [address] [place] [address] Violeta Casillas DO [address] [place] [address] Warfarin anticoagulation (Primary Dx) Social [...] on file Legal Sex Male 3:40 AM WEATHER ALGORITHM SCIENTIST Gender Identity Not on file Sexual Orientation Not on file documented as of this encounter Progress Notes * Ruth Farmer LPN - 07/06/2020 10:27 AM CST Entered in error HER ALGORITHM SCIENTIST documented in this encounter Plan of Treatment Not on file documented as of this encounter Visit Diagnoses Diagnosis Warfarin anticoagulation- Primary documented in this encounter Care Teams Travel Insurance Agent Relationship Specialty Start Date End Date Violeta Casillas DO PCP - General 09/29/16 09/15/21 Spring Banerjee, TIFFANY [address] [place] [address] [address] [place] [address] Drum Sealer 05/07/20 12/29/20 documented as of this encounter
--- OUTSIDE RECORDS SUMMARY | 2024-07-09 07:05 | XMS_ITS | Encounter Summary ---
Author Organization [facility] Address [address] [facility] [address] [place] [address] Care Team Providers Care Manager Telemarketing Name Role Phone Violeta Casillas Primary Care Provider + Spring Banerjee RN Unavailable [phone] [facility] Unavailable [phone] Elo Sánchez [facility] Unavailable [phone] Reason for Visit * Reason Comments Unsuccessful Phone Call 1 Encounter Details Date Type Department Care Team (Late st Contact Info) Description 10/05/2020 ACO Clinical Pharmacist [facility] Accountable Care Organization [address] [place] [address] Nancy Mcgregor, [facility] [address] [facility] [address] [place] [address] Social History Tobacco Use Types Packs/Day Years [...] often do you attend chur ch or mandaeism services? Never 05/13/2020 Do you belong to any clubs o r organizations such as anabaptist groups, unions, fraternal or athletic groups, or [...] on file Legal Sex Male 3:40 AM BICYCLE FITTER Gender Identity Not on file Sexual Orientation Not on file documented as of this encounter Miscellaneous Notes * Telephone Encounter - Nancy Busch [facility] - 10/05/2020 4:03 PM CDT ACO Clinical Pharmacist Outreach Pertinent Subjective/Objective: Patient was referred by [facility] Care Mgmt wall steamer; referral reason: medication adherence. Called patient to inform that mailed med list with pictures. No answer. Left VM to return call to this commercial underwriter to discuss. This is first unsuccessful attempt. Tape Control Skin Or Spar Mill Operator will attempt contact again within 7 days. Emani Busch, PharmD Clinical Pharmacist [facility] ([facility] & [facility] documented in this encounter Plan of Treatment Not on file documented as of this encounter Visit Diagnoses Not on filedocumented in this encounter Care Teams Manager Telemarketing Relationship Specialty Start Date End Date Violeta Casillas DO PCP - General 09/29/16 09/15/21 Spring Banerjee, RN [address] [place] [address] [address] [place], [place] [id number] Hat Band Attacher 05/07/20 12/29/20 Nancy Mcgregor [address] [place], [place] [id number] Pharmacist Pharmacy 09/29/20 12/12/20 Elo Sánchez, [address] [place], [place] [id number] Bore Miner Operator Alloy Weigher 09/30/20 11/03/20 documented as of this encounter
--- OUTSIDE RECORDS SUMMARY | 2024-07-09 07:05 | XMS_ITS | Encounter Summary ---
Author Organization [facility] Medical [facility] Address [address] [address] Care Team Providers Care Compliance Program Manager Name Role Phone Violeta Casillas DO Primary Care Provider + Spring Banerjee RN Unavailable [phone] Reason for Visit * Reason Comments Follow-up Encounter Details Date Type Department Care Team (Late st Contact Info) Description 07/28/2020 9:45 AM CONSERVATION AGENT [facility] [address] [place] [phone] Violeta Casillas DO [address] [place] [address] Vertigo (Primary Dx); Chronic idiopathic [...] often do you attend chur ch or confucianism services? Never 05/13/2020 Do you belong to any clubs o r organizations such as gnosticist groups, unions, fraternal or athletic groups, or [...] on file Legal Sex Male 3:40 AM CONSERVATION AGENT Gender Identity Not on file Sexual Orientation Not on file documented as of this encounter Last Filed Vital Signs Vital Sign Reading Time Taken Comments Blood Pressure 174/70 07/28/2020 8:55 AM CONSERVATION AGENT Pulse 67 07/28/2020 8:55 AM CONSERVATION AGENT Temperature 36.9 ??C (98.4 ??F) 07/28/2020 8:55 AM CS T Respiratory Rate 16 07/28/2020 8:55 AM CONSERVATION AGENT Oxygen Saturation 95% 07/28/2020 8:55 AM CONSERVATION AGENT Inhaled Oxygen Concentration - - Weight 73.3 kg (161 lb 9.6 oz) 07/28/2020 8:55 A M CONSERVATION AGENT Height 182.9 cm (6' 0.01 ) 07/28/2020 8:55 AM CS T Body Mass Index 21.91 07/28/2020 8:55 AM CONSERVATION AGENT documented in this encounter Ordered Prescriptions Prescription [...] histories in depth with patient and/or their dental sales representative. Review of Systems PHQ Screening PHQ-2 [...] Casillas DO This note was dictated using Affine voice recognition software. Variances in spelling and vocabulary are possible and errors are unintentional. ERVATION AGENT documented in this encounter Miscellaneous Notes * Result Encounter Note - Violeta Casillas DO - 07/28/2020 7:53 PM CONSERVATION AGENT Normal A1C ERVATION AGENT * Assessment & Plan Note - Violeta Casillas DO - 07/28/2020 7:43 PM CONSERVATION AGENT Associated Problem(s): Hearing difficulty of both ears Tried to clean out ears today. ERVATION AGENT * Assessment & Plan Note - Violeta Casillas DO - 07/28/2020 7:42 PM CONSERVATION AGENT Associated Problem(s): Pure hypercholesterolemia Chronic & stable on meds. Continue current treatment. ERVATION AGENT * Assessment & Plan Note - Violeta Casillas DO - 07/28/2020 7:41 PM CONSERVATION AGENT Associated Problem(s): Chronic obstructive pulmonary disease (HCC) Stable with out prescription medication. He feels like albuterol has not been helpful at all. ERVATION AGENT * Assessment & Plan Note - Violeta Casillas DO - 07/28/2020 7:38 PM CONSERVATION AGENT Associated Problem(s): Benign prostatic hyperplasia with urinary hesitancy Increase the doxazosin from 1 mg to 2 mg. ERVATION AGENT * Assessment & Plan Note - Violeta Casillas DO - 07/28/2020 7:26 PM CONSERVATION AGENT Associated Problem(s): Recurrent major depressive disorder (HCC) Increase the Mirtazapine to 30mg daily and stop the Amitriptyline 10 mg daily, especially since he has constipation. ERVATION AGENT * Assessment & Plan Note - Violeta Casillas DO - 07/28/2020 7:23 PM CONSERVATION AGENT Associated Problem(s): Hypertension, essential Will increase the doxazosin from 1 mg to 2 mg daily to help both BPH and HTN ERVATION AGENT * Assessment & Plan Note - Violeta Casillas DO - 07/28/2020 7:22 PM CONSERVATION AGENT Associated Problem(s): Weight loss Stable with Mirtazapine. Will increase the Mirtazapine to 30mg today. ERVATION AGENT * Assessment & Plan Note - Violeta Casillas DO - 07/28/2020 7:21 PM CONSERVATION AGENT Associated Problem(s): Bilateral impacted cerumen (Resolved 09/17/2020) Ear irrigation today. 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 Continue current treatment. ERVATION AGENT * Assessment & Plan Note - Violeta Casillas DO - 07/28/2020 7:20 PM CONSERVATION AGENT Associated Problem(s): Prediabetes Will check new labs and make adjustments if needed. ERVATION AGENT * Assessment & Plan Note - Violeta Casillas DO - 07/28/2020 9:40 AM CONSERVATION AGENT Associated Problem(s): Vertigo Likely related to uncontrolled allergies, though not sure if cerumen impaction also playing a role. I recommend use of Flonase (fluticasone) though he has been mostly non-compliant with suggestions on this; could be memory/cognitive in nature. ERVATION AGENT documented in this encounter Plan of Treatment Not on file documented as of this encounter Procedures Procedure Name Priority Date/Time Associated Diagnosis Comments POCT HEMOGLOBIN A1C Routine 07/28/2020 1 0:59 AM CONSERVATION AGENT Prediabetes documented in this encounter Results * POCT hemoglobin A1c (07/28/2020 10:59 AM CONSERVATION AGENT) Hemoglobin A1C, POC 5.6 Blood specimen (specimen) 07/28/2020 10:59 AM CONSERVATION AGENT Violeta Casillas DO POINT OF CARE TEST ORDER ANDREZ Final Result * (ABNORMAL) TSH (07/28/2020 10:15 AM CONSERVATION AGENT) Thyroid Stimulating Hormone 0.26(L) 0.30 - 4.20 mcIUnit/mL [facility] Blood specimen (specimen) 07/28/2020 10:15 AM CONSERVATION AGENT 07/28/2020 1:33 PM CONSERVATION AGENT Violeta Casillas DO LAB BLOOD ORDERABLES Fin al Result Performing Organization Address [facility] de Phone Number [facility] [address] [place] [address] * Cholesterol, LDL, direct (07/28/2020 10:15 AM CONSERVATION AGENT) LDL Cholesterol, Direct 95 <=129 mg/dL [facility] Comment: Interpretive Data Ages < [...] 2018. Blood specimen (specimen) 07/28/2020 10:15 AM CONSERVATION AGENT 07/28/2020 1:33 PM CONSERVATION AGENT Violeta Casillas DO LAB BLOOD ORDERABLES Fin al Result Performing Organization Address [facility] de Phone Number [facility] [address] [place] [address] documented in this encounter Visit Diagnoses Diagnosis [...] documented as of this encounter Care Teams Compliance Program Manager Relationship Specialty Start Date End Date Violeta Casillas DO PCP - General 09/29/16 09/15/21 Spring Banerjee RN [address] [place] [address] [address] [place] [address] Top Lifter 05/07/20 12/29/20 documented as of this encounter
--- OUTSIDE RECORDS SUMMARY | 2024-07-09 07:05 | XMS_ITS | Encounter Summary ---
Author Organization [facility] Medical [facility] Address [address] [facility] [address] [place] [address] Care Team Providers Care Calender Tender Name Role Phone Violeta Casillas DO Primary Care Provider + Encounter Details Date Type Department Care Team (Late st Contact Info) Description 06/23/2021 Telephone [facility] [address] [place] [address] Violeta Casillas DO [address] [place] [address] Social History Tobacco Use Types Packs/Day Years [...] any clubs o r organizations such as advent groups, unions, fraternal or athletic groups, or [...] a senior care (including now)? 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 SUPERVISOR WHEEL SHOP Gender Identity Not on file Sexual Orientation Not on file documented as of this encounter Miscellaneous Notes * Telephone Encounter - Nguyễn Rueda - 06/23/2021 1:16 PM CST I did not speak to her but I will email them RVISOR WHEEL SHOP * Telephone Encounter - Ruth Hankins LPN - 06/23/2021 11:27 AM SUPERVISOR WHEEL SHOP Please email hipaa forms to daughter. She says you told her you'd do it yesterday. RVISOR WHEEL SHOP documented in this encounter Plan of Treatment Not on file documented as of this encounter Visit Diagnoses Not on filedocumented in this encounter Care Teams Calender Tender Relationship Specialty Start Date End Date Violeta Casillas DO PCP - General 09/29/16 09/15/21 documented as of this encounter
--- OUTSIDE RECORDS SUMMARY | 2024-07-09 07:05 | XMS_ITS | Encounter Summary ---
Author Organization [facility] Address [address] [place] [address] Phone Care Team Providers Care Broomcorn Grader Name Role Phone Violeta Casillas Primary Care Provider + Spring Banerjee RN Unavailable [phone] Reason for Visit * Auth/Cert Specialty Diagnoses / Procedures Referred By Ignacia t Referred To Contact Referral ID Status Reason Start Date Expiration Date Visits Re quested Visits Authorized [id number] 1 1 Encounter Details Date Type Department Care Team (Late st Contact Info) Description 06/11/2020 Home Care Visit [facility] Home Health - [address] [address] Yakelin Landon, PT TRAVEL SCREENING [...] on file Legal Sex Male 3:40 AM RESIDENTIAL ENERGY AUDITOR Gender Identity Not on file Sexual Orientation Not on file documented as of this encounter Plan of Treatment Not on file documented as of this encounter Visit Diagnoses Not on filedocumented in this encounter Care Teams Broomcorn Grader Relationship Specialty Start Date End Date Violeta Casillas DO PCP - General 09/29/16 09/15/21 Spring Banerjee RN [address] [place] [address] [address] [place] [address] Hazardous Waste Technician 05/07/20 12/29/20 documented as of this encounter
--- OUTSIDE RECORDS SUMMARY | 2024-07-09 07:05 | XMS_ITS | Encounter Summary ---
Author Organization [facility] Address [address] [facility] [address] [place] [address] Care Team Providers Care Plate Worker Name Role Phone VinnyDiazlexa Dominic Primary Care Provider + Spring Banerjee RN Unavailable [phone] Nancy Mcgregor [facility] Unavailable [phone] Elo Sánchez [facility] Unavailable [phone] Reason for Referral * Diagnostic Imaging (Routine) - Closed Specialty Diagnoses / Procedures Referred By Contsylvester t Referred To Contact Diagnoses Vertigo Dizziness Procedures Vl US Carotids Villa Esquivel NP [address] [place] [address] Phone: tel: fax: [address] [phone] Referral ID Status Reason Start Date Expiration Date Visits Re quested Visits Authorized [id number] Closed 11/03/2020 12/03/2021 1 1 Reason for Visit * Reason Comments Review Medications Dizziness x 1mth, states start ed after meds changed Encounter Details Date Type Department Care Team (Late st Contact Info) Description 11/03/2020 9:15 AM CDT [facility] [address] [place] [phone] [place] [address] [place] [address] Vertigo (Primary Dx); Dementia (CMS/HCC); Pure [...] often do you attend chur ch or temple services? Never 05/13/2020 Do you belong to [...] in a nursing home (including now)? No 09/15/2020 Sex and Gender Information Value Date Recorded Sex Assigned at Not on file Legal Sex Male 3:40 AM TERMINAL WORKER Gender Identity Not on file Sexual [...] histories in depth with patient and/or their sales representative education courses. Review of Systems Constitutional: Negative for activity [...] tenderness or frontal sinus tenderness. Mouth/Throat: Lips: [place]. Mouth: Mucous membranes are moist. Pharynx: Oropharynx [...] ordered Orders: - US Carotids; Future Dementia ([facility]/HCC) Pure hypercholesterolemia - atorvastatin (LIPITOR) 20 mg [...] Where should this order be performed? Answer: [148] ??? aspirin 81 mg chewable tablet [...] Esquivel NP This note was dictated using Sensobi voice recognition software. Variances in spelling and [...] by: Abraham Lima M.D us Villa Esquivel SEWER CLEANER IMG US PROCEDURES Final Resu lt documented [...] documented as of this encounter Care Teams Plate Worker Relationship Specialty Start Date End Date Violeta Casillas DO PCP - General 09/29/16 09/15/21 Spring Banerjee, RN [address] [place] [address] [address] [place] [address] Church Warden 05/07/20 12/29/20 Nancy Mcgregor RPh [address] [place] [address] [address] [place] [address] Pharmacist Pharmacy 3/31/21 6/13/21 Elo Sánchez, [address] [place] [address] Powderman Endband Cutter Hand 09/30/20 11/03/20 documented as of this encounter
--- OUTSIDE RECORDS SUMMARY | 2024-07-09 07:05 | XMS_ITS | Encounter Summary ---
Author Organization [facility] Medical [facility] Address [address] [facility] [address] [place] [address] Care Team Providers Care Disintegrator Feeder Name Role Phone Vinny Violeta Alfaro DO Primary Care Provider + Spring Banerjee RN Unavailable [phone] Encounter Details Date Type Department Care Team (Late st Contact Info) Description 07/06/2020 10:30 AM EQUIPMENT MAINTENANCE SUPERVISOR Lab [facility] [address] [facility] Warfarin anticoagulation Social History Tobacco Use [...] often do you attend chur ch or episcopalian services? Never 05/13/2020 Do you belong to [...] on file Legal Sex Male 3:40 AM EQUIPMENT MAINTENANCE SUPERVISOR Gender Identity Not on file Sexual Orientation Not on file documented as of this encounter Miscellaneous Notes * Result Encounter Note - Violeta Casillas DO - 07/07/2020 5:39 PM EQUIPMENT MAINTENANCE SUPERVISOR Continue same dosing and recheck 1 week if at home or 1 month if at lab PMENT MAINTENANCE SUPERVISOR documented in this encounter Plan of Treatment Not on file documented as of this encounter Procedures Procedure Name Priority Date/Time Associated Diagnosis Comments POCT INR Routine 07/06/2020 10:40 AM EQUIPMENT MAINTENANCE SUPERVISOR Warfarin anticoagulation documented in this encounter Results * POCT INR (07/06/2020 10:40 AM EQUIPMENT MAINTENANCE SUPERVISOR) INR, POC 3.0 Blood specimen (specimen) (Blood, Venous) 07/06/2020 10:40 AM EQUIPMENT MAINTENANCE SUPERVISOR us Violeta Casillas DO POINT OF CARE TEST ORDER ANDREZ Final Result documented in this encounter Visit Diagnoses Diagnosis Warfarin anticoagulation documented in this encounter Care Teams Disintegrator Feeder Relationship Specialty Start Date End Date Violeta Casillas DO PCP - General 09/29/16 09/15/21 Spring Banerjee, TIFFANY [address] [place] [address] [address] [place] [address] Marketing Professor 05/07/20 12/29/20 documented as of this encounter
--- OUTSIDE RECORDS SUMMARY | 2024-07-09 07:05 | XMS_ITS | Encounter Summary ---
Author Organization [facility] Medical Group Address [address] [address] Care Team Providers Care Cadd Drafter Name Role Phone CasillasVioleta Primary Care Provider + Spring Banerjee RN Unavailable [phone] Encounter Details Date Type Department Care Team (Late st Contact Info) Description 06/23/2020 Anticoagulation Visit [facility] [address] [place] [phone] Cricket Millan MD [address] [place] [phone] Social History Tobacco Use Types Packs/Day Years [...] on file Legal Sex Male 3:40 AM ACQUISITION ADVISOR Gender Identity Not on file Sexual Orientation Not on file documented as of this encounter Plan of Treatment Not on file documented as of this encounter Visit Diagnoses Not on filedocumented in this encounter Care Teams Cadd Drafter Relationship Specialty Start Date End Date Violeta Casillas DO PCP - General 09/29/16 09/15/21 Spring Banerjee RN [address] [place] [address] [address] [place] [address] Circulation Analyst 05/07/20 12/29/20 documented as of this encounter
--- OUTSIDE RECORDS SUMMARY | 2024-07-09 07:05 | XMS_ITS | Encounter Summary ---
Author Organization [facility] Medical Group Address [address] [facility] [address] [place] [address] Care Team Providers Care Rec Therapist Name Role Phone Violeta Casillas Primary Care Provider + Spring Banerjee RN Unavailable [phone] Nancy Mcgregor [facility] Unavailable [phone] Elo Sánchez [facility] Unavailable [phone] Reason for Visit * Reason Onset Date Comments Case Management- Medication 11/02/2020 Encounter Details Date Type Department Care Team (Late st Contact Info) Description 11/02/2020 Telephone [facility] [address] [place] [address] Spring Banerjee, TIFFANY [address] [facility] [address] [place] [address] Case Management- Medication Social History Tobacco Use [...] week 05/13/2020 How often do you attend [facility] or mosque services? Never 05/13/2020 Do you [...] slept in a long-term (including now)? No 09/15/2020 Sex and Gender Information Value Date Recorded Sex Assigned at Not on file Legal Sex Male 3:40 AM AIRCRAFT ENGINE MECHANIC OVERHAUL Gender Identity Not on file Sexual Orientation [...] patient to live closer to him in [place] for patient safety. Thank you. Spring HAQUE RN [facility] - [facility] Heat Plant Specialist [phone] documented in this encounter Plan of Treatment Not on file documented as of this encounter Visit Diagnoses Not on filedocumented in this encounter Care Teams Rec Therapist Relationship Specialty Start Date End Date Violeta Casillas DO PCP - General 09/29/16 09/15/21 Spring Banerjee RN [address] [place] [address] [address] [place] [address] Heat Plant Specialist 05/07/20 12/29/20 Nancy Mcgregor RPh [address] [place] [address] [address] [place] [address] Pharmacist Pharmacy 09/29/20 12/12/20 Elo Sánchez, [address] [place] [address] Line Out Man Acid Operator 09/30/20 11/03/20 documented as of this encounter
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
--- OUTSIDE RECORDS SUMMARY | 2024-07-09 07:05 | XMS_ITS | Encounter Summary ---
Author Organization [facility] Medical Group Address [address] [facility] [address] [place] [address] Care Team Providers Care Riding Instructor Name Role Phone Violeta Casillas Primary Care Provider + Spring Banerjee RN Unavailable [phone] Nancy Mcgregor [facility] Unavailable [phone] Elo Sánchez INTERNATIONAL RELATIONS TEACHER Unavailable Reason for Visit * Reason Comments Chart Review Picture med list Encounter Details Date Type Department Care Team (Late st Contact Info) Description 09/30/2020 [facility] Clinical Pharmacist Chart Review [facility] Accountable Care Organization [address] [place] [address] Nancy Mcgregor, [facility] [address] [facility] [address] [place] [address] Social History Tobacco Use Types Packs/Day Years [...] often do you attend chur ch or rastafarian services? Never 05/13/2020 Do you belong to any clubs o r organizations such as amish groups, unions, fraternal or athletic groups, or [...] on file Legal Sex Male 3:40 AM WINDOW ASSEMBLER Gender Identity Not on file Sexual Orientation Not on file documented as of this encounter Progress Notes * Nancy Busch RPh - 09/30/2020 2:11 PM CDT Images from the original note were not included. [facility] Clinical Pharmacist Chart Review Pertinent Subjective/Objective: Patient was referred by [facility] Care Mgmt wallpaper remover steam; referral reason: medication adherence. Created photo med list for patient. Will mail and contact patient next week to discuss and ensure understands. Will also mail out a warfarin tablet color/strength chart: Follow-up: with this scenario writer via telephone in approximately 4 day(s) for check in. The visit was approximately 15 minutes in duration, all of which was via chart review. The patient was not contacted during this encounter. Kaia ZhuD Clinical Pharmacist [facility] ([facility] & [facility] This note was created using voice recognition software. Grammatical and spelling errors may exist. If you have any questions or concerns please contact me. documented in this encounter Plan of Treatment Not on file documented as of this encounter Visit Diagnoses Not on filedocumented in this encounter Care Teams Riding Instructor Relationship Specialty Start Date End Date Violeta Casillas DO PCP - General 09/29/16 09/15/21 Spring Banerjee RN [address] [place] [address] [address] [place] [address] Assurance Senior Manager Insurance 05/07/20 12/29/20 Nancy Mcgregor RPh [address] [place] [address] [address] [place] [address] Pharmacist Pharmacy 09/29/20 12/12/20 Elo Sánchez LCS[address] [place] [address] Forecast Analyst Patient Portal Concierge 09/30/20 11/03/20 documented as of this encounter
--- OUTSIDE RECORDS SUMMARY | 2024-07-09 07:05 | XMS_ITS | Encounter Summary ---
Author Organization [facility] Medical [facility] Address [address] [facility] [address] [place] [address] Care Team Providers Care Web Art Director Name Role Phone Violeta Casillas DO Primary Care Provider + Spring Banerjee RN Unavailable [phone] Reason for Visit * Reason Comments Follow-up wants anxiety meds r efilled Encounter Details Date Type Department Care Team (Late st Contact Info) Description 09/21/2020 11:00 AM CDT [facility] Visit [facility] [address] [place] [id number] Violeta Casillas DO [address] [place] [address] Dementia (CMS/HCC) (Primary Dx); Hypertension, essential; Episode [...] How often do you attend chur or zoroastrianism services? Never 05/13/2020 Do you [...] in a skilled nursing (including now)? No 09/15/2020 Sex and Gender Information Value Date Recorded Sex Assigned at Not on file Legal Sex Male 3:40 AM CURB WORKER Gender Identity Not on file Sexual [...] histories in depth with patient and/or their b2b outside sales representative. Review of Systems PHQ Screening Physical [...] (Primary) Assessment & Plan: Will fill out school bus driver/mechanic form as I don't feel patient is safe to drive anymore. Hypertension, essential Assessment & Plan: Patient to restart doxazosin from pill packs to pharmacy. Episode of recurrent major depressive disorder, unspecified depression episode severity (CMS/[facility]) Assessment & Plan: Pay sent switching back [...] Casillas DO This note was dictated using [employer] voice recognition software. Variances in spelling and [...] Associated Problem(s): Dementia (HCC) Will fill out school bus driver/mechanic form as I don't feel patient is [...] disorder documented in this encounter Care Teams Web Art Director Relationship Specialty Start Date End Date Violeta Casillas DO PCP - General 09/29/16 09/15/21 Spring Banerjee RN [address] [place] [address] [address] [place] [address] Instructor Technical Training 05/07/20 12/29/20 documented as of this encounter
--- OUTSIDE RECORDS SUMMARY | 2024-07-09 07:05 | XMS_ITS | Encounter Summary ---
Author Organization [facility] Medical Group Address [address] [facility] [address] [place] [address] Care Team Providers Care Repair Servicer Name Role Phone CasillasVioleta Primary Care Provider + Spring Banerjee RN Unavailable [phone] Nancy Mcgregor [facility] Unavailable [phone] Elo Sánchez UNDERCOLLAR BASTER Unavailable [phone] Encounter Details Date Type Department Care Team (Late st Contact Info) Description 10/20/2020 Telephone [facility] [address] [place] [address] Ruth Hankins LPN Social History [...] any clubs o r organizations such as adventism groups, unions, fraternal or athletic groups, or [...] on file Legal Sex Male 3:40 AM INSTRUCTIONAL SERVICES SPECIALIST Gender Identity Not on file Sexual [...] needed to physically sign for it. Email: [email or web address] documented in this encounter Plan of Treatment Not on file documented as of this encounter Visit Diagnoses Not on filedocumented in this encounter Care Teams Repair Servicer Relationship Specialty Start Date End Date Vinny Diazlexa Alfaro DO PCP - General 09/29/16 09/15/21 Spring Banerjee, RN [address] [place] [address] [address] [place], [place] [id number] Tongue And Groove Machine Operator 05/07/20 12/29/20 Nancy Mcgregor, Sherley [address] [place] [address] [address] [place] [address] Pharmacist Pharmacy 09/29/20 12/12/20 Eol Sánchez, [address] [place] [address] Tare Worker Sheet Sewer 09/30/20 11/03/20 documented as of this encounter
--- OUTSIDE RECORDS SUMMARY | 2024-07-09 07:05 | XMS_ITS | Encounter Summary ---
Author Organization [facility] Medical Group Address [address] [facility] [address] [place] [address] Care Team Providers Care Labor Mediator Name Role Phone Violeta Casillas Primary Care Provider + Spring Banerjee RN Unavailable [phone] Nancy Mcgregor [facility] Unavailable [phone] Elo Sánchez [facility] Unavailable [phone] Reason for Visit * Reason Onset Date Comments Patinet 'blacked out' 09/15/2020 Encounter Details Date Type Department Care Team (Late st Contact Info) Description 09/15/2020 Telephone [facility] [address] [place] [address] Spring Banerjee, TIFFANY [address] [facility] [address] [place] [address] Patinet 'blacked out' Social History [...] How often do you attend chur or church services? Never 05/13/2020 Do you belong to [...] file Legal Sex Male 3:40 AM RESIDENTIAL APPRAISER Gender Identity Not on file Sexual [...] for the first opening, 09/17 at8:15 with BLASTING ENTRY SPECIALIST. Let me know how else I can assist in the care of the patient Spring HAQUE RN [facility] - [facility] Police Reserves Commander [phone] documented in this encounter Plan of Treatment Not on file documented as of this encounter Visit Diagnoses Not on filedocumented in this encounter Care Teams Labor Mediator Relationship Specialty Start Date End Date Violeta Casillas DO PCP - General 09/29/16 09/15/21 Spring Banerjee RN [address] [place] [address] [address] [place] [address] Police Reserves Commander 05/07/20 12/29/20 Nancy Mcgregor RPh [address] [facility] [address] [place] [address] Pharmacist Pharmacy 09/29/20 12/12/20 Elo Sánchez, [address] [place] [address] Forensic Accountant Orange Peel Operator 09/30/20 11/03/20 documented as of this encounter
--- OUTSIDE RECORDS SUMMARY | 2024-07-09 07:05 | XMS_ITS | Encounter Summary ---
Author Organization [facility] Medical Group Address [address] [facility] [address] [place] [address] Care Team Providers Care Imcu Specialist Name Role Phone Violeta Casillas Primary Care Provider + Spring Banerjee RN Unavailable [phone] Nancy Mcgregor [facility] Unavailable [phone] Elo Sánchez [facility] Unavailable [phone] Brandon Sandoval MD Primary Care Provider + [phone] Reason for Visit * Reason Comments Med Management Replacing warfarin w ith aspirin Encounter Details Date Type Department Care Team (Late st Contact Info) Description 10/25/2020 ACO Clinical Pharmacist [facility] Accountable Care Organization [address] [place] [address] Nancy Mcgregor, [facility] [address] [facility] [address] [place] [address] Social History Tobacco Use Types Packs/Day Years [...] How often do you attend chur or pentecostal services? Never 05/13/2020 Do you [...] place to sleep or slept in a group home (including now)? 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 Emani Busch, KaiaD Clinical Pharmacist [facility] Medical [facility] ([facility] & [facility] Pertinent Subjective/Objective: Patient was referred by [facility] Care Mgmt teamcenter solution architect; referral reason: medication management. Per chart review, [...] warfarin at this time. ACO RN contacted specifications writer for next steps and evaluation if aspirin [...] the provider and referring [facility] Care Mgmt teamcenter solution architect via routed note. This note was created using voice recognition software. Grammatical and spelling errors may exist. If you have any questions or concerns please contact me. documented in this encounter Plan of Treatment Not on file documented as of this encounter Visit Diagnoses Not on filedocumented in this encounter Care Teams Imcu Specialist Relationship Specialty Start Date End Date Violeta CasillasDO PCP - General 09/29/16 09/15/21 Brandon Sandoval MD [address] [place] [address] [address] [place] [address] PCP - General Internal Medicine 09/16/21 10/19/22 Spring Banerjee RN [address] [place] [address] [address] [place] [address] Meter Shop Superintendent 05/07/20 12/29/20 Nancy Mcgregor [address] [place] [address] Pharmacist Pharmacy 09/29/20 12/12/20 Elo Sánchez, [address] [place] [address] Balloon Artist Intensive Care Specialist 09/30/20 11/03/20 documented as of this encounter
--- OUTSIDE RECORDS SUMMARY | 2024-07-09 07:05 | XMS_ITS | Encounter Summary ---
Author Organization [facility] Healthcare Address [address] [place] [address] Care Team Providers Care Director Of Teenage Activities Name Role Phone Violeta Casillas DO Primary Care Provider + Spring Banerjee RN Unavailable [phone] Encounter Details Date Type Department Care Team (Late st Contact Info) Description 07/28/2020 1:35 PM RAILROAD OPERATOR Lab [address] [phone] Hypertension, essential; Pure hypercholesterolemia Social History Tobacco [...] often do you attend chur ch or jainism services? Never 05/13/2020 Do you belong to any clubs o r organizations such as hoahaoism groups, unions, fraternal or athletic groups, or [...] on file Legal Sex Male 3:40 AM RAILROAD OPERATOR Gender Identity Not on file Sexual Orientation Not on file documented as of this encounter Miscellaneous Notes * Result Encounter Note - Violeta Casillas DO - 07/28/2020 8:00 PM RAILROAD OPERATOR Labs ok. No changes. ROAD OPERATOR documented in this encounter Plan of Treatment Not on file documented as of this encounter Procedures Procedure Name Priority Date/Time Associated Diagnosis Comments GLUCOSE, RANDOM (OUTREACH) Routine 07/28/2020 10:15 AM RAILROAD OPERATOR Hypertension, essential EGFR Routine 07/28/2020 10:15 AM RAILROAD OPERATOR Hypertension, essential COMPREHENSIVE METABOLIC PANEL WITHOUT GLUCOSE (OUTREACH) Routine 07/28/2020 10:15 AM RAILROAD OPERATOR Hypertension, essential COMPREHENSIVE METABOLIC PANEL (OUTREACH) Routine 07/28/2020 10:15 AM RAILROAD OPERATOR Hypertension, essential TSH Routine 07/28/2020 10:15 AM RAILROAD OPERATOR Hypertension, essential Pure hypercholesterolemia CHOLESTEROL, LDL, DIRECT Routine 07/28/2020 10:15 AM RAILROAD OPERATOR Hypertension, essential Pure hypercholesterolemia documented in this encounter Results * eGFR (07/28/2020 10:15 AM RAILROAD OPERATOR) Pathologist [facility] Glomerular Filtration Rate - non -Slovenian >60 mL/min/1.7 3 m2 [facility] Comment: Interpretive Data Decrease in GFR ?? GFR (mL/min/1.73m2) ?? Significance. Normal to Mild ?Greater than 60 ? Normal, or near normal. Moderate ?15 - 60 ? Calculated GFR of less ?than 60 suggests chronic ?kidney disease,if found ?over a 3 month period. Severe ?Less than 15 ?Renal Failure. Current interpretive data was last revised on 2012. Glomerular Filtration Rate - -Slovenian >60 mL/min/1.7 3 m2 [facility] Blood specimen (specimen) 07/28/2020 10:15 AM RAILROAD OPERATOR 07/28/2020 1:33 PM RAILROAD OPERATOR us Violeta Casillas DO LAB BLOOD ORDERABLES Fin al Result [facility] [address] [facility] [place] [address] * Glucose, random (Outreach) (07/28/2020 10:15 AM RAILROAD OPERATOR) [facility] Glucose 107 70 - 199 mg/dL [facility] Comment: Interpretive Data Fasting glucose >/= [...] 2017. Blood specimen (specimen) 07/28/2020 10:15 AM RAILROAD OPERATOR 07/28/2020 1:33 PM RAILROAD OPERATOR Narrative [facility] - 07/28/2020 2:43 PM RAILROAD OPERATOR Not fasting us Violeta Casillas DO LAB BLOOD ORDERABLES Fin al Result [facility] [address] [facility] [place] [address] * Comprehensive metabolic panel, without glucose (Outreach) (07/28/2020 10:15 AM RAILROAD OPERATOR) Sodium 137 135 - 145 mmol/L [facility] Potassium, pl 4.7 3.3 - 4.9 mmol/L [facility] Chloride 102 97 - 110 mmol/L [facility] CO2 28 22 - 32 mmol/L [facility] Anion gap 7 2 - 15 mmol/L [facility] BUN 20 8 - 25 mg/dL [facility] Creatinine 1.10 0.80 - 1.30 mg/dL [facility] Calcium 9.8 8.5 - 10.3 mg/dL [facility] Protein, pl 7.7 6.5 - 8.5 g/dL [facility] Albumin 4.6 3.5 - 5.2 g/dL [facility] Bilirubin, total 0.8 0.1 - 1.2 mg/dL [facility] Alk phos 125 40 - 130 Units/L [facility] AST 23 10 - 50 Units/L [facility] ALT 19 7 - 55 Units/L [facility] Blood specimen (specimen) 07/28/2020 10:15 AM RAILROAD OPERATOR 07/28/2020 1:33 PM RAILROAD OPERATOR Narrative [facility] - 07/28/2020 2:25 PM RAILROAD OPERATOR Not fasting Violeta Casillas DO LAB BLOOD ORDERABLES Fin al Result Performing Organization Address [facility] de Phone Number [facility] [address] [place] [address] * (ABNORMAL) TSH (07/28/2020 10:15 AM RAILROAD OPERATOR) Thyroid Stimulating Hormone 0.26(L) 0.30 - 4.20 mcIUnit/mL [facility] Blood specimen (specimen) 07/28/2020 10:15 AM RAILROAD OPERATOR 07/28/2020 1:33 PM RAILROAD OPERATOR Violeta Casillas DO LAB BLOOD ORDERABLES Fin al Result Performing Organization Address [facility] de Phone Number [facility] [address] [place] [address] * Cholesterol, LDL, direct (07/28/2020 10:15 AM RAILROAD OPERATOR) LDL Cholesterol, Direct 95 <=129 mg/dL [facility] Comment: Interpretive Data Ages < or [...] 2018. Blood specimen (specimen) 07/28/2020 10:15 AM RAILROAD OPERATOR 07/28/2020 1:33 PM RAILROAD OPERATOR us Violeta Casillas DO LAB BLOOD ORDERABLES Fin al Result [facility] [address] [facility] Department [place] [address] documented in this encounter Visit Diagnoses Diagnosis Hypertension, essential Unspecified essential hypertension Pure hypercholesterolemia documented in this encounter Care Teams Director Of Teenage Activities Relationship Specialty Start Date End Date Violeta Casillas DO PCP - General 09/29/16 09/15/21 Spring Banerjee, TIFFANY [address] [place] [address] [address] [place] [address] Supervisor Opening And Picking 05/07/20 12/29/20 documented as of this encounter
--- OUTSIDE RECORDS SUMMARY | 2024-07-09 07:05 | XMS_ITS | Encounter Summary ---
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 This will all be packaged in their [facility] program. He is not to pick any more scripts up at [facility]. Make sure he keeps his appointment with [...] filedocumented in this encounter Care Teams Corporate Director Of Human Resources Relationship Specialty Start Date End Date Violeta Casillas DO PCP - General 09/29/16 09/15/21 Spring Banerjee RN [address] [place] [address] [address] [place] [address] Bar Turner 05/07/20 12/29/20 documented as of this encounter
--- OUTSIDE RECORDS SUMMARY | 2024-07-09 07:05 | XMS_ITS | Encounter Summary ---
Author Organization [facility] Medical Group Address [address] [facility] [address] [place] [address] Care Team Providers Care Director Search Marketing Strategies Name Role Phone Violeta Casillas Primary Care Provider + Spring Banerjee RN Unavailable [phone] Nancy Mcgregor [facility] Unavailable [phone] Elo Sánchez CHIEF REVENUE OFFICER Unavailable [phone] Reason for Visit * Reason Onset Date Comments Patient was Fired from PCP 10/27/2020 Encounter Details Date Type Department Care Team (Late st Contact Info) Description 10/27/2020 Telephone Medical [facility] [address] [place] [address] Elo Sánchez, CHIEF REVENUE OFFICER [address] [facility] [address] [place] [address] Patient was Fired from PCP Social History [...] week 05/13/2020 How often do you attend [facility] or orthodox services? Never 05/13/2020 Do you belong to any clubs o r organizations such as scientology groups, unions, fraternal or athletic groups, or [...] on file Legal Sex Male 3:40 AM RETURNED MATERIALS INSPECTOR Gender Identity Not on file Sexual Orientation Not on file documented as of this encounter Miscellaneous Notes * Telephone Encounter - Elo Sánchez, CHIEF REVENUE OFFICER - 10/27/2020 4:02 PM CDT Thank you for the clarification. He did seem to have some confusion as he didn't recognize me and didn't remember asking me for resources to help him get hearing aids and glasses. I'll continue to follow and will update the wire sawyer and Pharmacist following him. MARC Larkin, MIKO Clinical Maple Sugar Maker [facility] - O [phone] * Telephone Encounter - Ruth Hankins LPN [...] Sánchez LCSW and I am a Clinical Maple Sugar Maker with the [facility]'s A[facility]. I just got off the phone with the patient and he relayed that you've fired him as a patient. I justwant to clarify if that's true as I'll need to send him a list of primary care physicians that are near where he lives. Thanks for your time. MARC Larkin, MIKO Clinical Maple Sugar Maker [facility] - [facility] [phone] documented in this encounter Plan of Treatment Not on file documented as of this encounter Visit Diagnoses Not on filedocumented in this encounter Care Teams Director Search Marketing Strategies Relationship Specialty Start Date End Date Violeta Casillas DO PCP - General 09/29/16 09/15/21 Spring Banerjee, RN [address] [place] [address] [address] [place] [address] Flat Bed Operator 05/07/20 12/29/20 Nancy Mcgregor, [address] [place] [address] Pharmacist Pharmacy 09/29/20 12/12/20 Elo Sánchez LCSW [address] [place] [address] [address] [place] [address] Maple Sugar Maker Radiation Therapy Technician 09/30/20 11/03/20 documented as of this encounter
--- OUTSIDE RECORDS SUMMARY | 2024-07-09 07:05 | XMS_ITS | Encounter Summary ---
Author Organization [facility] Medical Group Address [address] [facility] [address] [place] [address] Care Team Providers Care Slitter Service And Setter Name Role Phone CasillasDiazlexa Dominic Primary Care Provider + Spring Banerjee RN Unavailable [phone] Nancy Mcgregor [facility] Unavailable [phone] Elo Sánchez ORDER TRACER Unavailable [phone] Encounter Details Date Type Department Care Team (Late st Contact Info) Description 11/03/2020 9:15 AM CDT [facility] [address] [facility] Warfarin anticoagulation Social History Tobacco Use Types [...] on file Legal Sex Male 3:40 AM TYPING CHECKER Gender Identity Not on file Sexual Orientation [...] anticoagulation documented in this encounter Care Teams Slitter Service And Setter Relationship Specialty Start Date End Date Vinny Violeta Alfaro DO PCP - General 09/29/16 09/15/21 Spring Banerjee, RN [address] [place] [address] [address] [place], [place] [id number] Resistor Tester 05/07/20 12/29/20 Nancy Mcgregor, RPlamin [address] [place] [address] [address] [place], [place] [id number] Pharmacist Pharmacy 09/29/20 12/12/20 Elo Sánchez, ORDER TRACER [address] [place] [address] [address] [place] [address] Clinical Specialty Rep Tape Sewing Machine Operator 09/30/20 11/03/20 documented as of this encounter
--- OUTSIDE RECORDS SUMMARY | 2024-07-09 07:05 | XMS_ITS | Encounter Summary ---
Author Organization [facility] Medical Group Address [address] [facility] [address] [place] [address] Care Team Providers Care Bladder Cleaner Name Role Phone Violeta Casillas Primary Care Provider + Spring Banerjee RN Unavailable [phone] Nancy Mcgregor [facility] Unavailable [phone] Elo Sánchez [facility] Unavailable [phone] Reason for Visit * Reason Onset Date Comments Case Management- Medication 10/01/2020 Encounter Details Date Type Department Care Team (Late st Contact Info) Description 10/01/2020 Telephone [facility] [address] [place] [address] Spring Banerjee, TIFFANY [address] [facility] [address] [place] [address] Case Management- Medication Social History Tobacco Use [...] week 05/13/2020 How often do you attend [facility] or pentecostal services? Never 05/13/2020 Do you belong to any clubs o r organizations such as jainism groups, unions, fraternal or athletic groups, or [...] file Legal Sex Male 3:40 AM PRODUCTION OFFICER Gender Identity Not on file Sexual Orientation Not on file documented as of this encounter Miscellaneous Notes * Telephone Encounter - Violeta Casillas DO - 10/01/2020 2:09 PM CDT I think contact [facility] is best way to go at this point. * Telephone Encounter - Ruth Hankins LPN - 10/01/2020 2:06 PM CDT The only problem I foresee with him coming in to the office to fill med maintenance planner is transportation. He's been told not [...] 3) Home Health Nursing will not continue draw operator as this is not considered a [...] this complex patient, Spring HAQUE RN [facility] - [facility] Disability Examiner [phone] documented in this encounter Plan of Treatment Not on file documented as of this encounter Visit Diagnoses Not on filedocumented in this encounter Care Teams Bladder Cleaner Relationship Specialty Start Date End Date Violeta Casillas DO PCP - General 09/29/16 09/15/21 Spring Banerjee, RN [address] [place] [address] [address] [place] [address] Disability Examiner 05/07/20 12/29/20 Nancy Mcgregor [address] [place] [address] Pharmacist Pharmacy 09/29/20 12/12/20 Elo Sánchez, [address] [place] [address] Manager City Tour Operator 09/30/20 11/03/20 documented as of this encounter
--- OUTSIDE RECORDS SUMMARY | 2024-07-09 07:06 | XMS_ITS | Encounter Summary ---
Author Organization [facility] Home Care Servic es Address [address] [place] [address] Phone Care Team Providers Care Weather Anchor Name Role Phone Obdulio Posada Primary Care Provider + Spring Banerjee RN Unavailable [phone] Reason for Visit * Auth/Cert Specialty Diagnoses / Procedures Referred By Ignacia t Referred To Contact Referral ID Status Reason Start Date Expiration Date Visits Re quested Visits Authorized [id number] 1 1 Encounter Details Date Type Department Care Team (Late st Contact Info) Description 06/01/2020 9:30 AM VERTICAL BORING MILL OPERATOR Home Care Visit [facility] Home Health - [address] [address] Caryn Harris RN SN HOME [...] on file Legal Sex Male 3:40 AM VERTICAL BORING MILL OPERATOR Gender Identity Not on file Sexual Orientation Not on file documented as of this encounter Last Filed Vital Signs Vital Sign Reading Time Taken Comments Blood Pressure 138/70 06/01/2020 9:35 AM VERTICAL BORING MILL OPERATOR Pulse 64 06/01/2020 9:35 AM VERTICAL BORING MILL OPERATOR Temperature 36.7 ??C (98 ??F) 06/01/2020 9:35 AM VERTICAL BORING MILL OPERATOR Respiratory Rate 18 06/01/2020 9:35 AM VERTICAL BORING MILL OPERATOR Oxygen Saturation 94% 06/01/2020 9:35 AM VERTICAL BORING MILL OPERATOR Inhaled Oxygen Concentration - - Weight - - Height - - Body Mass Index - - documented in this encounter Plan of Treatment Not on file documented as of this encounter Procedures Procedure Name Priority Date/Time Associated Diagnosis Comments POCT PROTHROMBIN TIME/INR Routine 06/01/2020 9:53 AM VERTICAL BORING MILL OPERATOR documented in this encounter Results * POCT PT/INR (06/01/2020 9:53 AM VERTICAL BORING MILL OPERATOR) INR, POC 1.50 [facility] Comment:18.2 Blood specimen (specimen) 06/01/2020 9:53 AM VERTICAL BORING MILL OPERATOR us Obdulio Posada DO POINT OF CARE TEST ORDER ANDREZ Final Result [facility] documented in this encounter Visit Diagnoses Not on filedocumented in this encounter Home Health Visit - Care Plan Visit Details Visit Type -SN Home Visit Discipline -Intermediate Problems Problem Description Start Date Status Goals Interve ntions Homebound Status Disciplines: Intermediate, Physical Therapy Patient's homebound status 05/12/2020 Active 1 goal linked to scheduled/documen max intervention 1 goal intervention scheduled/document ed in this visit Medications Disciplines: Intermediate, Physical Therapy Management of home medications 05/12/2020 Active 1 goal linked to scheduled/documen max intervention 3 goal interventions scheduled/document ed in this visit Monitor patient's vital signs every home health visit Disciplines: Intermediate, Physical Therapy Monitor patient's vital signs every home health visit. 05/12/2020 Active 1 goal linked to scheduled/documen max intervention 1 goal intervention scheduled/document ed in this visit Infection Prevention Disciplines: Intermediate, Physical Therapy Infection Prevention 05/12/2020 Active 1 goal linked to scheduled/documen max intervention 1 goal intervention scheduled/document ed in this visit Fall Precautions/Sa fety Concerns Disciplines: Intermediate, Physical Therapy Alteration in safety 05/12/2020 Active 1 goal linked to scheduled/documen max intervention 1 goal intervention scheduled/document ed in this visit Depression Disciplines: Intermediate, Physical Therapy Depression 05/12/2020 Active 1 goal linked to scheduled/documen max intervention 1 goal intervention scheduled/document ed in this visit Collect Specimen/Lab Draw Disciplines: Intermediate Management of specimen samples, including lab draws, [...] visit during episode of care Description: Home business management professor to measure vital signs during every home [...] administration. Medications taught include all medications on [employer] med list. Instruct on High Risk Medications [...] s/sx of infection and when to notify physician/psychiatric therapist High Fall Risk Precautions Description: Instruct patient/caregiver [...] Completed documented in this encounter Care Teams Weather Anchor Relationship Specialty Start Date End Date Obdulio Posada DO PCP - General 09/29/16 09/15/21 Spring Banerjee RN [address] [place] [address] [address] [place] [address] Operation Supervisor 05/07/20 12/29/20 documented as of this encounter
--- OUTSIDE RECORDS SUMMARY | 2024-07-09 07:06 | XMS_ITS | Encounter Summary ---
Author Organization [facility] Home Care Servic es Address [address] [place] [address] Phone Care Team Providers Care Store Clerk Cashier Name Role Phone CasillasDiazlexa Dominic Primary Care Provider + Spring Banerjee RN Unavailable [phone] Reason for Visit * Auth/Cert Specialty Diagnoses / Procedures Referred By Ignacia t Referred To Contact Referral ID Status Reason Start Date Expiration Date Visits Re quested Visits Authorized [id number] 1 1 Encounter Details Date Type Department Care Team (Late st Contact Info) Description 06/07/2020 2:00 PM COLORS CUSTODIAN Home Care Visit [facility] Home Health - [address] [address] Josiane Rodriguez PTA PT HOME [...] often do you attend chur ch or orthodoxy services? Never 05/13/2020 Do you [...] on file Legal Sex Male 3:40 AM COLORS CUSTODIAN Gender Identity Not on file Sexual Orientation Not on file documented as of this encounter Last Filed Vital Signs Vital Sign Reading Time Taken Comments Blood Pressure 148/70 06/07/2020 3:30 PM COLORS CUSTODIAN Pulse 77 06/07/2020 3:30 PM COLORS CUSTODIAN Temperature 36 ??C (96.8 ??F) 06/07/2020 3:30 PM COLORS CUSTODIAN Respiratory Rate 18 06/07/2020 3:30 PM COLORS CUSTODIAN Oxygen Saturation 94% 06/07/2020 3:30 PM COLORS CUSTODIAN Inhaled Oxygen Concentration - - Weight - [...] Status Goals Interve ntions Homebound Status Disciplines: Correction, Physical Therapy Patient's homebound status 05/12/2020 Active 1 goal linked to scheduled/documen max intervention 1 goal intervention scheduled/document ed in this visit Monitor patient's vital signs every home health visit Disciplines: Correction, Physical Therapy Monitor patient's vital signs every [...] visit during episode of care Description: Home field crew chief to measure vital signs during every home [...] Actions Prior to visit, discussion w / Ykaelin Landon PT regarding patient's progress in therapy. AT visit, discussion w/ patient regarding scheduling of upcoming tx and probable dc of hh therapy at that time. Narratives Patient has some areas on hi s forearms, stomach and near ankles where he has what appears to be bug bites and has been scratching them. He had also told captain waiter/waitress that he has been having problems w/ [...] dc. documented in this encounter Care Teams Store Clerk Cashier Relationship Specialty Start Date End Date Violeta Casillas DO PCP - General 09/29/16 09/15/21 Spring Banerjee, TIFFANY [address] [place] [address] [address] [place] [address] Bi Technical Lead 05/07/20 12/29/20 documented as of this encounter
--- OUTSIDE RECORDS SUMMARY | 2024-07-09 07:06 | XMS_ITS | Encounter Summary ---
Author Organization [facility] Home Care Serv[facility] es Address [address] [place] [address] Phone Care Team Providers Care Latin Dancer Name Role Phone Violeta Casillas Primary Care Provider + Spring Banerjee RN Unavailable [phone] Reason for Visit * Auth/Cert Specialty Diagnoses / Procedures Referred By Ignacia t Referred To Contact Referral ID Status Reason Start Date Expiration Date Visits Re quested Visits Authorized [id number] 1 1 Encounter Details Date Type Department Care Team (Late st Contact Info) Description 06/08/2020 Home Care Visit [facility] Home Health - [address] [address] Alana Aguirre RN TRAVEL SCREENING [...] on file Legal Sex Male 3:40 AM RECREATIONAL RESORT MANAGER Gender Identity Not on file Sexual Orientation Not on file documented as of this encounter Plan of Treatment Not on file documented as of this encounter Visit Diagnoses Not on filedocumented in this encounter Care Teams Latin Dancer Relationship Specialty Start Date End Date Violeta Casillas DO PCP - General 09/29/16 09/15/21 Spring Banerjee RN [address] [place] [address] [address] [place] [address] Biologist Aide 05/07/20 12/29/20 documented as of this encounter
--- OUTSIDE RECORDS SUMMARY | 2024-07-09 07:06 | XMS_ITS | Encounter Summary ---
Author Organization [facility] Home Care Servic es Address [address] [place] [address] Phone Care Team Providers Care Systems Administration Analyst Name Role Phone Violeta Casillas Primary Care Provider + Spring Banerjee RN Unavailable [phone] Reason for Visit * Auth/Cert Specialty Diagnoses / Procedures Referred By Ignacia t Referred To Contact Referral ID Status Reason Start Date Expiration Date Visits Re quested Visits Authorized [id number] 1 1 Encounter Details Date Type Department Care Team (Late st Contact Info) Description 06/09/2020 Home Care Visit [facility] Home Health - [address] [address] Alana Aguirre, TIFFANY CARE CONFERENCE [...] on file Legal Sex Male 3:40 AM WORKING SECOND HAND Gender Identity Not on file Sexual Orientation Not on file documented as of this encounter Plan of Treatment Not on file documented as of this encounter Visit Diagnoses Not on filedocumented in this encounter Care Teams Systems Administration Analyst Relationship Specialty Start Date End Date Violeta Casillas DO PCP - General 09/29/16 09/15/21 Spring Banerjee RN [address] [place] [address] [address] [place] [id number] Board Writer 05/07/20 12/29/20 documented as of this encounter
--- OUTSIDE RECORDS SUMMARY | 2024-07-09 07:06 | XMS_ITS | Encounter Summary ---
Author Organization [facility] Medical Group Address [address] [facility] [address] [place] [address] Care Team Providers Care Radiologic Technologist Chief Name Role Phone Violeta Casillas DO Primary Care Provider + Spring Banerjee RN Unavailable [phone] Encounter Details Date Type Department Care Team (Late st Contact Info) Description 06/03/2020 Orders Only [facility] [address] [place] [address] Violeta Casillas DO [address] [place] [address] Social History Tobacco Use Types Packs/Day Years [...] often do you attend chur ch or shinto services? Never 05/13/2020 Do you belong to any clubs o r organizations such as yazidism groups, unions, fraternal or athletic groups, or [...] on file Legal Sex Male 3:40 AM ANALYTICAL STRATEGIST Gender Identity Not on file Sexual Orientation [...] documented as of this encounter Care Teams Radiologic Technologist Chief Relationship Specialty Start Date End Date Violeta Casillas DO PCP - General 09/29/16 09/15/21 Spring Banerjee RN [address] [place] [address] [address] [place] [address] Roll Trucker 05/07/20 12/29/20 documented as of this encounter
--- OUTSIDE RECORDS SUMMARY | 2024-07-09 07:06 | XMS_ITS | Encounter Summary ---
Author Organization [facility] Home Care Servic es Address [address] [place] [address] Phone Care Team Providers Care Rapid Outsole Stitcher Name Role Phone Violeta Casillas DO Primary Care Provider + Spring Banerjee RN Unavailable [phone] Reason for Visit * Auth/Cert Specialty Diagnoses / Procedures Referred By Ignacia t Referred To Contact Referral ID Status Reason Start Date Expiration Date Visits Re quested Visits Authorized [id number] 1 1 Encounter Details Date Type Department Care Team (Late st Contact Info) Description 05/26/2020 Home Care Visit [facility] Home Health - [address] [phone] Diaz Andrade, ROOF FOREMAN ROOF FOREMAN INITIAL EVAL Social History Tobacco Use Types [...] any clubs o r organizations such as pentecostal groups, unions, fraternal or athletic groups, or [...] file Legal Sex Male 3:40 AM CLIENT DIRECTOR Gender Identity Not on file Sexual Orientation Not on file documented as of this encounter Plan of Treatment Not on file documented as of this encounter Visit Diagnoses Not on filedocumented in this encounter Home Health Visit - Care Plan Visit Details Visit Type -ROOF FOREMAN Initial Eval uation Discipline -Medical Social Work Problems Problem Description Start Date Status Goals Interve ntions ROOF FOREMAN Resource Needs Disciplines: Medical Social Work Deficit related to resources. 05/26/2020 Active 1 goal linked to scheduled/documen max intervention 3 goal interventions scheduled/document ed in this visit ROOF FOREMAN Emotional Support Needs Disciplines: Medical Social Work Deficit related to emotional support. 05/26/2020 Active 1 goal linked to scheduled/documen max intervention 3 goal interventions scheduled/document ed in this visit Goals Goal Associated Problem Outcome Goal Met? Visit Notes Understanding of available resources Description: Patient/family/caregiver will voice understanding of available resources by identifying problems and working with community resources to address them. ROOF FOREMAN Resource Needs No Increase emotional support Description: Patient/family is able to explore reactions to and verbalize acceptance of impact of illness by identifying problems and developing adaptive coping skills. ROOF FOREMAN Emotional Support Needs No Interventions Intervention Associated Problem/Goal Status Variance Visit Notes Assist with financial resources Description: Assist with financial resources Problem:ROOF FOREMAN Resource Needs Goal:Understanding of available resources Completed Assess financial needs Description: Assess financial needs Problem:ROOF FOREMAN Resource Needs Goal:Understanding of available resources Completed Provide assistance with identifying appropriate community resources Description: Provide assistance with identifying appropriate community resources Problem:ROOF FOREMAN Resource Needs Goal:Understanding of available resources Completed Instruct family/caregiver on hospice and ancillary services Description: Instruct family/caregiver on hospice and ancillary services Problem:ROOF FOREMAN Emotional Support Needs Goal:Increase emotional support Completed Provide Emotional Support Description: Provide emotional support Problem:ROOF FOREMAN Emotional Support Needs Goal:Increase emotional support Completed Provide supportive counseling and teach the use of alternate stress relieving techniques for patient. Assess for emotional distress Description: Assess for emotional distress Problem:ROOF FOREMAN Emotional Support Needs Goal:Increase emotional support Completed [...] due to not being able to read. ROOF FOREMAN met with patient in his kitchen. Patient [...] then he is not trusting at all. ROOF FOREMAN validated his concern and made sure to write notes on referral information so his friend could review. ROOF FOREMAN also provided contact information to patient so if his friend has any questions they could be addressed. ROOF FOREMAN informed patient about community resources and provided community resource guide for [facility]. ROOF FOREMAN discussed programs that can help seniors such as [facility] and [facility] caregiver support program. ROOF FOREMAN discussed Meals on Wheels, and again patient indicated he did not wish to do any of these things until his friend reviewed them. ROOF FOREMAN provided patient with [employer] application and provided an overview of program to assist with getting his Medicare Premiums paid. Patient reported he would defer to his friend. ROOF FOREMAN spoke with him about Medicaid viscosity worker services in which he could be eligible to get help around the home with tasks that put him at risk of falling. Patient indicated he wasn't interested in getting Medicaid. ROOF FOREMAN explained the Medicaid program and let him know that he would most likely have a spend down but that the spend down would be less than what he pays out currently for medications and medical costs. that the benfiit of medicaid would be substancial. 'He reported he didn't think he needed it. ROOF FOREMAN left an application for Medicaid in case patient changes his mind. ROOF FOREMAN spoke with patient regarding other concerns he has. He reported during the winter his utility costs can be high. He was informed about [employer] program to make repairs and modifications to the home and indicated he would like to do something with this but wanted to discuss with his friend before anything would happen. ROOF FOREMAN informed him he would check back with him to see what his friend had to say. 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 ROOF FOREMAN will follow up with the patient towards the end of the next week to ensure patient friend has reviewed information. ROOF FOREMAN demonstrated active listening. ROOF FOREMAN provided normalization and validation. SW will continue [...] of transportation? No Resources presented to patient/caregiver: [facility], SMTS documented in this encounter Care Teams Rapid Outsole Stitcher Relationship Specialty Start Date End Date Violeta Casillas DO PCP - General 09/29/16 09/15/21 Spring Banerjee RN [address] [place] [address] [address] [place] [address] Electrician Helper 05/07/20 12/29/20 documented as of this encounter
--- OUTSIDE RECORDS SUMMARY | 2024-07-09 07:06 | XMS_ITS | Encounter Summary ---
Author Organization [facility] Home Care Servic es Address [address] [place] [address] Phone Care Team Providers Care Vegetable Farming Supervisor Name Role Phone CasillasDiazlexa Dominic Primary Care Provider + Spring Banerjee RN Unavailable [phone] Reason for Visit * Auth/Cert Specialty Diagnoses / Procedures Referred By Ignacia t Referred To Contact Referral ID Status Reason Start Date Expiration Date Visits Re quested Visits Authorized [id number] 1 1 Encounter Details Date Type Department Care Team (Late st Contact Info) Description 06/11/2020 1:30 PM C T TECH Home Care Visit [facility] Home Health - [address] [phone] Yakelin Landon, PT PT OASIS [...] often do you attend chur ch or methodist services? Never 05/13/2020 Do you belong to [...] on file Legal Sex Male 3:40 AM C T TECH Gender Identity Not on file Sexual Orientation Not on file documented as of this encounter Last Filed Vital Signs Vital Sign Reading Time Taken Comments Blood Pressure 122/70 06/11/2020 12:50 PM C T TECH Pulse 80 06/11/2020 12:50 PM C T TECH Temperature 36.7 ??C (98.1 ??F) 06/11/2020 12:[address] Respiratory Rate 18 06/11/2020 12:50 PM C T TECH Oxygen Saturation 97% 06/11/2020 12:50 PM C T TECH Inhaled Oxygen Concentration - - Weight - [...] Status Goals Interve ntions Homebound Status Disciplines: Senior Care, Physical Therapy Patient's homebound status 05/12/2020 Resolved on 06/11/2020 1 goal linked to scheduled/documen max intervention 1 goal intervention scheduled/documen max in this visit Monitor patient's vital signs every home health visit Disciplines: Senior Care, Physical Therapy Monitor patient's vital signs every home health visit. 05/12/2020 Resolved on 06/11/2020 1 goal linked to scheduled/documen max intervention 1 goal intervention scheduled/documen max in this visit Infection Prevention Disciplines: Senior Care, Physical Therapy Infection Prevention 05/12/2020 Resolved on 06/11/2020 1 goal linked to scheduled/documen max intervention Standardized Guidelines Disciplines: Senior Care, Physical Therapy Standardized Guidelines 05/12/2020 Resolved on 06/11/2020 1 goal linked to scheduled/documen max intervention Fall Precautions/Saf ety Concerns Disciplines: Senior Care, Physical Therapy Alteration in safety 05/12/2020 Resolved on 06/11/2020 1 goal linked to scheduled/documen max intervention 2 goal interventions scheduled/documen max in this visit Lynn Precautions Disciplines: Senior Care, Physical Therapy Lynn Precautions 05/12/2020 Resolved on 06/11/2020 1 goal [...] visit during episode of care Description: Home psychology clinician to measure vital signs during every home [...] precautions Description: Demonstrate knowledge of universal precautions Lynn Precautions Completed Yes Improvement in Activity Tolerance [...] Concerns Goal:Demonstrate use of safety precautions Completed Lynn Fall Precautions Description: Assess patient safety Problem:Fall [...] Completed documented in this encounter Care Teams Vegetable Farming Supervisor Relationship Specialty Start Date End Date Violeta Casillas DO PCP - General 09/29/16 09/15/21 Spring Banerjee RN [address] [place] [address] [address] [place] [address] Riveting Machine Operator Automatic 05/07/20 12/29/20 documented as of this encounter
--- OUTSIDE RECORDS SUMMARY | 2024-07-09 07:06 | XMS_ITS | Encounter Summary ---
Author Organization [facility] Home Care Servic es Address [address] [place] [address] Phone Care Team Providers Care Training Developer Name Role Phone Violeta Casillas Primary Care Provider + Spring Banerjee RN Unavailable [phone] Reason for Visit * Auth/Cert Specialty Diagnoses / Procedures Referred By Ignacia t Referred To Contact Referral ID Status Reason Start Date Expiration Date Visits Re quested Visits Authorized [id number] 1 1 Encounter Details Date Type Department Care Team (Late st Contact Info) Description 06/01/2020 Home Care Visit [facility] Home Health - [address] [phone] Caryn Harris RN TRAVEL SCREENING [...] often do you attend chur ch or episcopal services? Never 05/13/2020 Do you belong to [...] on file Legal Sex Male 3:40 AM STATISTICAL CLERK ADVERTISING Gender Identity Not on file Sexual Orientation Not on file documented as of this encounter Plan of Treatment Not on file documented as of this encounter Visit Diagnoses Not on filedocumented in this encounter Care Teams Training Developer Relationship Specialty Start Date End Date Violeta Casillas DO PCP - General 09/29/16 09/15/21 Spring Banerjee RN [address] [place] [address] [address] [place] [address] Licensed Reactor Operator 05/07/20 12/29/20 documented as of this encounter
--- OUTSIDE RECORDS SUMMARY | 2024-07-09 07:06 | XMS_ITS | Encounter Summary ---
Author Organization [facility] Home Care Servic es Address [address] [place] [address] Phone Care Team Providers Care Hospice Bereavement Coordinator Name Role Phone CasillasDiazlexa Dominic Primary Care Provider + Spring Banerjee RN Unavailable Reason for Visit * Auth/Cert Specialty Diagnoses / Procedures Referred By Ignacia t Referred To Contact Referral ID Status Reason Start Date Expiration Date Visits Re quested Visits Authorized [id number] 1 1 Encounter Details Date Type Department Care Team (Late st Contact Info) Description 06/02/2020 11:00 AM STRUCTURAL ANALYSIS ENGINEER Home Care Visit [facility] Home Health - [address] [phone] Josiane Rodriguez PTA PT HOME [...] often do you attend chur ch or nondenominational services? Never 05/13/2020 Do you belong to [...] on file Legal Sex Male 3:40 AM STRUCTURAL ANALYSIS ENGINEER Gender Identity Not on file Sexual Orientation Not on file documented as of this encounter Last Filed Vital Signs Vital Sign Reading Time Taken Comments Blood Pressure 155/80 06/02/2020 11:00 AM STRUCTURAL ANALYSIS ENGINEER Pulse 75 06/02/2020 11:00 AM STRUCTURAL ANALYSIS ENGINEER Temperature 36.4 ??C (97.5 ??F) 06/02/2020 11:[address] Respiratory Rate 18 06/02/2020 11:00 AM STRUCTURAL ANALYSIS ENGINEER Oxygen Saturation 95% 06/02/2020 11:00 AM STRUCTURAL ANALYSIS ENGINEER Inhaled Oxygen Concentration - - Weight - - Height - - Body Mass Index - - documented in this encounter Progress Notes * Violeta Casillas DO - 06/02/2020 9:24 PM CST Stop the med and see how he feels. CTURAL ANALYSIS ENGINEER * Josiane Rodriguez PTA - 06/02/2020 9:09 PM CST Patient reports to me at tx this week that he gets dizzy about a half hour post taking his Ropinirole. He states it also makes him slightly nauseous. He does not feel he is getting as good of relief of his tremors with it as previous med. CTURAL ANALYSIS ENGINEER documented in this encounter Plan of Treatment [...] visit during episode of care Description: Home licensed clinician to measure vital signs during every [...] orders. documented in this encounter Care Teams Hospice Bereavement Coordinator Relationship Specialty Start Date End Date Violeta Casillas DO PCP - General 09/29/16 09/15/21 Spring Banerjee RN [address] [place] [address] [address] [place] [address] Attacher 05/07/20 12/29/20 documented as of this encounter
--- OUTSIDE RECORDS SUMMARY | 2024-07-09 07:06 | XMS_ITS | Encounter Summary ---
Author Organization [facility] Home Care Servic es Address [address] [place] [address] Phone Care Team Providers Care Screen Handler Name Role Phone Violeta Casillas Primary Care Provider + Spring Banerjee RN Unavailable [phone] Reason for Visit * Auth/Cert Specialty Diagnoses / Procedures Referred By Ignacia t Referred To Contact Referral ID Status Reason Start Date Expiration Date Visits Re quested Visits Authorized [id number] 1 1 Encounter Details Date Type Department Care Team (Late st Contact Info) Description 06/07/2020 Home Care Visit [facility] Home Health - [address] [phone] Josiane Rodriguez, [facility] TRAVEL SCREENING CASE COMMUNICATION Social History Tobacco [...] on file Legal Sex Male 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
--- OUTSIDE RECORDS SUMMARY | 2024-07-09 07:06 | XMS_ITS | Encounter Summary ---
Author Organization [facility] Address [address] [facility] [address] [place] [address] Care Team Providers Care Windshield Repair Technician Name Role Phone Violeta Casillas DO Primary Care Provider + Spring Banerjee RN Unavailable [phone] Encounter Details Date Type Department Care Team (Late st Contact Info) Description 06/09/2020 Orders Only [facility] [address] [facility] [address] [place] [id number] Violeta Casillas DO [address] [place], [place] [id number] Social History Tobacco Use Types Packs/Day Years [...] file Legal Sex Male 3:40 AM MEDICAL REIMBURSEMENT MANAGER Gender Identity Not on file Sexual [...] documented as of this encounter Care Teams Windshield Repair Technician Relationship Specialty Start Date End Date Violeta Casillas DO PCP - General 09/29/16 09/15/21 Spring Banerjee, TIFFANY [address] [place] [address] [address] [place] [address] Client Administrator 05/07/20 12/29/20 documented as of this encounter
--- OUTSIDE RECORDS SUMMARY | 2024-07-09 07:06 | XMS_ITS | Encounter Summary ---
Author Organization [facility] Home Care Servic es Address [address] [place] [address] Phone Care Team Providers Care Leather Repairer Name Role Phone CasillasDiazlexa Dominic Primary Care Provider + Spring Banerjee RN Unavailable [phone] Reason for Visit * Auth/Cert Specialty Diagnoses / Procedures Referred By Ignacia t Referred To Contact Referral ID Status Reason Start Date Expiration Date Visits Re quested Visits Authorized [id number] 1 1 Encounter Details Date Type Department Care Team (Late st Contact Info) Description 05/31/2020 2:00 PM CLIENT MANAGER Home Care Visit [facility] Home Health - [address] [phone] Josiane Rodriguez PTA PT HOME [...] often do you attend chur ch or worship services? Never 05/13/2020 Do you belong to [...] file Legal Sex Male 3:40 AM CLIENT MANAGER Gender Identity Not on file Sexual Orientation Not on file documented as of this encounter Last Filed Vital Signs Vital Sign Reading Time Taken Comments Blood Pressure 130/72 05/31/2020 3:05 PM CLIENT MANAGER Pulse 68 05/31/2020 3:05 PM CLIENT MANAGER Temperature 36.1 ??C (96.9 ??F) 05/31/2020 3:05 PM CS T Respiratory Rate 18 05/31/2020 3:05 PM CLIENT MANAGER Oxygen Saturation 96% 05/31/2020 3:05 PM CLIENT MANAGER Inhaled Oxygen Concentration - - Weight - [...] visit during episode of care Description: Home sweet potato disintegrator to measure vital signs during every home [...] gait. documented in this encounter Care Teams Leather Repairer Relationship Specialty Start Date End Date Violeta Casillas DO PCP - General 09/29/16 09/15/21 Spring Banerjee RN [address] [place] [address] [address] [place] [address] Triage Rn 05/07/20 12/29/20 documented as of this encounter
--- OUTSIDE RECORDS SUMMARY | 2024-07-09 07:06 | XMS_ITS | Encounter Summary ---
Author Organization [facility] Home Care Servic es Address [address] [place] [address] Phone Care Team Providers Care Prizer Hand Name Role Phone Violeta Casillas Primary Care Provider + Spring Banerjee RN Unavailable [phone] Reason for Visit * Auth/Cert Specialty Diagnoses / Procedures Referred By Ignacia t Referred To Contact Referral ID Status Reason Start Date Expiration Date Visits Re quested Visits Authorized [id number] 1 1 Encounter Details Date Type Department Care Team (Late st Contact Info) Description 06/08/2020 Home Care Visit [facility] Home Health - [address] [phone] Alana Aguirre RN TELEPHONE ENCOUNTER [...] on file Legal Sex Male 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
--- OUTSIDE RECORDS SUMMARY | 2024-07-09 07:06 | XMS_ITS | Encounter Summary ---
Author Organization [facility] Home Care Servic es Address [address] [place] [address] Phone Care Team Providers Care Electronics Engineering Professor Name Role Phone Violeta Casillas DO Primary Care Provider + Spring Banerjee RN Unavailable [phone] Reason for Visit * Auth/Cert Specialty Diagnoses / Procedures Referred By Ignacia manzanares Referred To Contact Referral ID Status Reason Start Date Expiration Date Visits Re quested Visits Authorized [id number] 1 1 Encounter Details Date Type Department Care Team (Late st Contact Info) Description 06/08/2020 Home Care Visit [facility] Home Health - [address] [phone] Diaz Andrade, SERVICE COORDINATOR ELDERLY FACILITY CASE COMMUNICATION Social History Tobacco Use Types [...] file 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
--- OUTSIDE RECORDS SUMMARY | 2024-07-09 07:06 | XMS_ITS | Encounter Summary ---
Author Organization [facility] Home Care Servic es Address [address] [place] [address] Phone Care Team Providers Care Frozen Food Department Manager Name Role Phone Violeta Casillas Primary Care Provider + Spring Banerjee RN Unavailable [phone] Reason for Visit * Auth/Cert Specialty Diagnoses / Procedures Referred By Ignacia t Referred To Contact Referral ID Status Reason Start Date Expiration Date Visits Re quested Visits Authorized [id number] 1 1 Encounter Details Date Type Department Care Team (Late st Contact Info) Description 06/09/2020 Home Care Visit [facility] Home Health - [address] [phone] Alana Aguirre RN TELEPHONE ENCOUNTER [...] on file Legal Sex Male 3:40 AM CNS Gender Identity Not on file Sexual Orientation Not on file documented as of this encounter Plan of Treatment Not on file documented as of this encounter Visit Diagnoses Not on filedocumented in this encounter Care Teams Frozen Food Department Manager Relationship Specialty Start Date End Date Violeta Casillas DO PCP - General 09/29/16 09/15/21 Spring Banerjee RN [address] [place] [address] [address] [place] [id number] Movie Writer 05/07/20 12/29/20 documented as of this encounter
--- OUTSIDE RECORDS SUMMARY | 2024-07-09 07:06 | XMS_ITS | Encounter Summary ---
Author Organization [facility] Home Care Servic es Address [address] [place] [address] Phone Care Team Providers Care Division Operations Specialist Name Role Phone Violeta Casillas Primary Care Provider + Spring Banerjee RN Unavailable [phone] Reason for Visit * Auth/Cert Specialty Diagnoses / Procedures Referred By Ignacia t Referred To Contact Referral ID Status Reason Start Date Expiration Date Visits Re quested Visits Authorized [id number] 1 1 Encounter Details Date Type Department Care Team (Late st Contact Info) Description 05/31/2020 Home Care Visit [facility] Home Health - [address] [phone] Josiane Rodriguez, [facility] TRAVEL SCREENING CASE COMMUNICATION Social History [...] often do you attend chur ch or samaritan services? Never 05/13/2020 Do you belong to [...] on file Legal Sex Male 3:40 AM RECREATION COORDINATOR Gender Identity Not on file Sexual Orientation Not on file documented as of this encounter Plan of Treatment Not on file documented as of this encounter Visit Diagnoses Not on filedocumented in this encounter Care Teams Division Operations Specialist Relationship Specialty Start Date End Date Violeta Casillas DO PCP - General 09/29/16 09/15/21 Spring Banerjee RN [address] [place] [address] [address] [place] [address] Hospital Product Specialist 05/07/20 12/29/20 documented as of this encounter
--- OUTSIDE RECORDS SUMMARY | 2024-07-09 07:06 | XMS_ITS | Encounter Summary ---
Author Organization [facility] Home Care Servic es Address [address] [place] [address] Phone Care Team Providers Care Engineer Assistant Name Role Phone Violeta Casillas Primary Care Provider + Spring Banerjee RN Unavailable [phone] Reason for Visit * Auth/Cert Specialty Diagnoses / Procedures Referred By Ignacia t Referred To Contact Referral ID Status Reason Start Date Expiration Date Visits Re quested Visits Authorized [id number] 1 1 Encounter Details Date Type Department Care Team (Late st Contact Info) Description 06/08/2020 3:00 AM SENIOR VICE PRESIDENT AND CHIEF INFORMATION OFFICER Home Care Visit [facility] Home Health - [address] [address] Alana Aguirre RN SN DISCIPLINE [...] any clubs o r organizations such as religion groups, unions, fraternal or athletic groups, or [...] on file Legal Sex Male 3:40 AM SENIOR VICE PRESIDENT AND CHIEF INFORMATION OFFICER Gender Identity Not on file Sexual Orientation Not on file documented as of this encounter Last Filed Vital Signs Vital Sign Reading Time Taken Comments Blood Pressure 128/74 06/08/2020 11:01 AM SENIOR VICE PRESIDENT AND CHIEF INFORMATION OFFICER Pulse 62 06/08/2020 11:01 AM SENIOR VICE PRESIDENT AND CHIEF INFORMATION OFFICER Temperature 36.7 ??C (98 ??F) 06/08/2020 11:01 AM SENIOR VICE PRESIDENT AND CHIEF INFORMATION OFFICER Respiratory Rate 18 06/08/2020 11:01 AM SENIOR VICE PRESIDENT AND CHIEF INFORMATION OFFICER Oxygen Saturation 95% 06/08/2020 11:01 AM SENIOR VICE PRESIDENT AND CHIEF INFORMATION OFFICER Inhaled Oxygen Concentration - - Weight - - Height - - Body Mass Index - - documented in this encounter Miscellaneous Notes * Result Encounter Note - Violeta Casillas DO - 06/08/2020 10:08 PM SENIOR VICE PRESIDENT AND CHIEF INFORMATION OFFICER Patient was not taking 8 mg daily as directed so he was read told to start taking 8 mg daily and plan to recheck in about 2 weeks. OR VICE PRESIDENT AND CHIEF INFORMATION OFFICER documented in this encounter Plan of Treatment Not on file documented as of this encounter Procedures Procedure Name Priority Date/Time Associated Diagnosis Comments POCT PROTHROMBIN TIME/INR Routine 06/08/2020 11:07 AM SENIOR VICE PRESIDENT AND CHIEF INFORMATION OFFICER documented in this encounter Results * POCT PT/INR (06/08/2020 11:07 AM SENIOR VICE PRESIDENT AND CHIEF INFORMATION OFFICER) INR, POC 1.30 HH POCT RESULTING LABORATORY Comment:INR 1.3 PT I6.7 Blood specimen (specimen) 06/08/2020 11:07 AM SENIOR VICE PRESIDENT AND CHIEF INFORMATION OFFICER Violeta Casillas DO POINT OF CARE TEST ORDER ANDREZ Final Result HH POCT RESULTING LABORAT[facility] documented in this encounter Visit Diagnoses Not on filedocumented in this encounter Home Health Visit - Care Plan Visit Details Visit Type -SN Discipline Di patricia Discipline -Long Term Problems Problem Description Start Date Status Goals Interve ntions Homebound Status Disciplines: Long Term, Physical Therapy Patient's homebound status 05/12/2020 Active 1 goal linked to scheduled/documen max intervention 1 goal intervention scheduled/document ed in this visit Medications Disciplines: Long Term, Physical Therapy Management of home medications 05/12/2020 Active 1 goal linked to scheduled/documen max intervention 2 goal interventions scheduled/document ed in this visit Monitor patient's vital signs every home health visit Disciplines: Long Term, Physical Therapy Monitor patient's vital signs every home health visit. 05/12/2020 Active 1 goal linked to scheduled/documen max intervention 1 goal intervention scheduled/document ed in this visit Standardized Guidelines Disciplines: Long Term, Physical Therapy Standardized Guidelines 05/12/2020 Active 1 goal linked to scheduled/documen max intervention 1 goal intervention scheduled/document ed in this visit Fall Precautions/Sa fety Concerns Disciplines: Long Term, Physical Therapy Alteration in safety 05/12/2020 Active 1 goal linked to scheduled/documen max intervention 1 goal intervention scheduled/document ed in this visit [place] Precautions Disciplines: Long Term, Physical Therapy [place] Precautions 05/12/2020 Active 1 goal linked to scheduled/documen max intervention 1 goal intervention scheduled/document ed in this visit Depression Disciplines: Long Term, Physical Therapy Depression 05/12/2020 Active 1 goal linked to scheduled/documen max intervention 2 goal interventions scheduled/document ed in this visit Problems with Activity - COPD Disciplines: Long Term Decreased tolerance to normal activities related to dyspnea and fatigue 05/12/2020 Active 1 goal linked to scheduled/documen max intervention 1 goal intervention scheduled/document ed in this visit Collect Specimen/Lab Draw Disciplines: Long Term Management of specimen samples, including lab draws, [...] visit during episode of care Description: Home tutoring clinician to measure vital signs during every [...] precautions Description: Demonstrate knowledge of universal precautions [place] Precautions No Demonstrate knowledge of depression Description: [...] in absence of home care staff Completed [place] Fall Precautions Description: Assess patient safety Problem:Fall Precautions/Safety Concerns Goal:Demonstrate use of safety precautions Completed Aspects of Care Description: Instruct patient/caregiver on universal precautions and home infection control measures Problem:[place] Precautions Goal:Demonstrate knowledge of universal precautions Completed [...] weekly. Call results to Dr. Violeta Casillas [phone]. Record number of attempts, delivery to lab method, & confirmation details. next due around 06/08/20 Problem:Collect Specimen/Lab Draw Goal:Complete specimen as ordered Completed documented in this encounter Care Teams Engineer Assistant Relationship Specialty Start Date End Date Violeta Casillas DO PCP - General 09/29/16 09/15/21 Spring Banerjee RN [address] [place] [address] [address] [place] [address] Quality Improvement Consultant 11/6/20 6/30/21 documented as of this encounter
--- OUTSIDE RECORDS SUMMARY | 2024-07-09 07:06 | XMS_ITS | Encounter Summary ---
Author Organization [facility] Home Care Servic es Address [address] [place] [address] Phone Care Team Providers Care Licensing Registration Examiner Name Role Phone Violeta Casillas Primary Care Provider + Spring Banerjee RN Unavailable [phone] Reason for Visit * Auth/Cert Specialty Diagnoses / Procedures Referred By Ignacia t Referred To Contact Referral ID Status Reason Start Date Expiration Date Visits Re quested Visits Authorized [id number] 1 1 Encounter Details Date Type Department Care Team (Late st Contact Info) Description 06/02/2020 Home Care Visit [facility] Home Health - [address] [address] Alana Aguirre, [facility] [...] often do you attend chur ch or caodaism services? Never 05/13/2020 Do you belong to [...] file Legal Sex Male 3:40 AM SUPERVISOR ROLLING ROOM Gender Identity Not on file Sexual Orientation Not on file documented as of this encounter Plan of Treatment Not on file documented as of this encounter Visit Diagnoses Not on filedocumented in this encounter Care Teams Licensing Registration Examiner Relationship Specialty Start Date End Date Violeta Casillas DO PCP - General 09/29/16 09/15/21 Spring Banerjee RN [address] [place] [address] [address] [place] [address] Glass Selector 05/07/20 12/29/20 documented as of this encounter
--- OUTSIDE RECORDS SUMMARY | 2024-07-09 07:06 | XMS_ITS | Encounter Summary ---
Author Organization [facility] Address [address] [facility] [address] [place] [id number] Care Team Providers Care School Standards Coach Name Role Phone Violeta Casillas DO Primary Care Provider + Spring Banerjee RN Unavailable [phone] Encounter Details Date Type Department Care Team (Late st Contact Info) Description 06/08/2020 Telephone [facility] [address] [place] [address] Violeta Casillas DO [address] [place] [address] Social History Tobacco Use Types [...] on file Legal Sex Male 3:40 AM PATIENT SCHEDULER Gender Identity Not on file Sexual Orientation Not on file documented as of this encounter Miscellaneous Notes * Telephone Encounter - Ruth Farmer LPN - 06/08/2020 12:44 PM CST She said he was told by the last nurse to go to 8, but he told Alana he only takes 7, she will tell him to go up to 8. ENT SCHEDULER * Telephone Encounter - Violeta Casillas DO - 06/08/2020 12:18 PM PATIENT SCHEDULER Can you find out why he is only taking 7 mg of warfarin daily when he is supposed to be taking 8 mg. Even the prescription reads correctly in the chart. He will need a repeat INR in about 2 weeks. ENT SCHEDULER * Telephone Encounter - Nguyễn Rueda - 06/08/2020 11:52 AM CST Alana with [facility] home health called and his inr is 1.3 on 7mg cumadin he will be discharged from nursing today since he is now driving and will need outpatient inr orders ordered and she said we cancall her at [phone] and she will call him for us. ENT SCHEDULER documented in this encounter Plan of Treatment Not on file documented as of this encounter Visit Diagnoses Diagnosis Warfarin anticoagulation- Primary documented in this encounter Care Teams School Standards Coach Relationship Specialty Start Date End Date Violeta Casillas DO PCP - General 09/29/16 09/15/21 Spring Banerjee RN [address] [place] [address] [address] [place] [id number] Sound Recordist 05/07/20 12/29/20 documented as of this encounter
--- OUTSIDE RECORDS SUMMARY | 2024-07-09 07:06 | XMS_ITS | Encounter Summary ---
Author Organization [facility] Home Care Servic es Address [address] [place] [address] Phone Care Team Providers Care Tenderizer Tender Name Role Phone Violeta Casillas Primary Care Provider + Spring Banerjee RN Unavailable [phone] Reason for Visit * Auth/Cert Specialty Diagnoses / Procedures Referred By Ignacia t Referred To Contact Referral ID Status Reason Start Date Expiration Date Visits Re quested Visits Authorized [id number] 1 1 Encounter Details Date Type Department Care Team (Late st Contact Info) Description 06/02/2020 Home Care Visit [facility] Home Health - [address] [address] Josiane Rodriguez, [facility] TRAVEL SCREENING CASE COMMUNICATION Social History Tobacco [...] any clubs o r organizations such as restorationist groups, unions, fraternal or athletic groups, or [...] on file Legal Sex Male 3:40 AM WARD ATTENDANT Gender Identity Not on file Sexual Orientation Not on file documented as of this encounter Plan of Treatment Not on file documented as of this encounter Visit Diagnoses Not on filedocumented in this encounter Care Teams Tenderizer Tender Relationship Specialty Start Date End Date Violeta Casillas DO PCP - General 09/29/16 09/15/21 Spring Banerjee RN [address] [place] [address] [address] [place] [address] Guest Laundry Attendant 05/07/20 12/29/20 documented as of this encounter
--- OUTSIDE RECORDS SUMMARY | 2024-07-09 07:07 | XMS_ITS | Encounter Summary ---
Author Organization [facility] Home Care Serv[facility] es Address [address] [place] [address] Phone Care Team Providers Care Bereavement Coordinator Name Role Phone Violeta Casillas DO Primary Care Provider + Spring Banerjee RN Unavailable [phone] Reason for Visit * Auth/Cert Specialty Diagnoses / Procedures Referred By Ignacia t Referred To Contact Referral ID Status Reason Start Date Expiration Date Visits Re quested Visits Authorized [id number] 1 1 Encounter Details Date Type Department Care Team (Late st Contact Info) Description 05/26/2020 Home Care Visit [facility] Home Health - [address] [address] Diaz Andrade, DIRECTOR OF BUSINESS SYSTEMS TRAVEL SCREENING CASE COMMUNICATION Social History Tobacco [...] on file Legal Sex Male 3:40 AM ARM REST BUILDER Gender Identity Not on file Sexual Orientation Not on file documented as of this encounter Plan of Treatment Not on file documented as of this encounter Visit Diagnoses Not on filedocumented in this encounter Care Teams Bereavement Coordinator Relationship Specialty Start Date End Date Violeta Casillas DO PCP - General 09/29/16 09/15/21 Spring Banerjee RN [address] [place] [address] [address] [place] [address] Detasseling Crew Supervisor 05/07/20 12/29/20 documented as of this encounter
--- OUTSIDE RECORDS SUMMARY | 2024-07-09 07:07 | XMS_ITS | Encounter Summary ---
Author Organization [facility] Home Care Servic es Address [address] [place] [address] Phone Care Team Providers Care Surgery Consultant Name Role Phone Violeta Casillas Primary Care Provider + Spring Banerjee RN Unavailable [phone] Dayana MarinaW Unavailable Reason for Visit * Auth/Cert Specialty Diagnoses / Procedures Referred By Contsylvester t Referred To Contact Referral ID Status Reason Start Date Expiration Date Visits Re quested Visits Authorized [id number] 1 1 Encounter Details Date Type Department Care Team (Late st Contact Info) Description 05/25/2020 Home Care Visit [facility] Home Health [address] [address] Josiane Rodriguez PTA TRAVEL SCREENING [...] often do you attend chur ch or hinduism services? Never 05/13/2020 Do you [...] file Legal Sex Male 3:40 AM SALES VENDOR Gender Identity Not on file Sexual Orientation Not on file documented as of this encounter Plan of Treatment Not on file documented as of this encounter Visit Diagnoses Not on filedocumented in this encounter Care Teams Surgery Consultant Relationship Specialty Start Date End Date Violeta Casillas DO PCP - General 09/29/16 09/15/21 Spring Banerjee RN [address] [facility] [address] [place], [place] [phone] Group Activities Aide 05/07/20 12/29/20 Dayana Marina LCSW [address] [facility] [address] [place] [address] Wet Roaster 05/10/20 05/25/20 documented as of this encounter
--- OUTSIDE RECORDS SUMMARY | 2024-07-09 07:07 | XMS_ITS | Encounter Summary ---
Author Organization [facility] Home Care Servic es Address [address] [place] [address] Phone Care Team Providers Care Color Laboratory Technician Name Role Phone Violeta Casillas Primary Care Provider + Spring Banerjee RN Unavailable [phone] Reason for Visit * Auth/Cert Specialty Diagnoses / Procedures Referred By Ignacia t Referred To Contact Referral ID Status Reason Start Date Expiration Date Visits Re quested Visits Authorized [id number] 1 1 Encounter Details Date Type Department Care Team (Late st Contact Info) Description 05/26/2020 Home Care Visit [facility] Home Health - [address] [address] Alana Aguirre, [facility]FER[facility] [...] any clubs o r organizations such as baptist groups, unions, fraternal or athletic groups, or [...] on file Legal Sex Male 3:40 AM GRAVEDIGGER Gender Identity Not on file Sexual Orientation Not on file documented as of this encounter Plan of Treatment Not on file documented as of this encounter Visit Diagnoses Not on filedocumented in this encounter Care Teams Color Laboratory Technician Relationship Specialty Start Date End Date Violeta Casillas DO PCP - General 09/29/16 09/15/21 Spring Banerjee RN [address] [place] [address] [address] [place] [address] Executive Community Planning 05/07/20 12/29/20 documented as of this encounter
--- OUTSIDE RECORDS SUMMARY | 2024-07-09 07:08 | XMS_ITS | Encounter Summary ---
Author Organization [facility] Address [address] [address] Care Team Providers Care Generation Mechanic Helper Name Role Phone Violeta Posada DO Primary Care Provider + Spring Banerjee RN Unavailable [phone] Dayana Marina RESEARCH ASSOCIATE QUALITY CONTROL QC Unavailable [phone] Encounter Details Date Type Department Care Team (Late st Contact Info) Description 05/25/2020 Telephone [facility] [address] [place] [address] Violeta Posada DO [address] [place] [address] Social History Tobacco Use Types [...] on file Legal Sex Male 3:40 AM CHARTER SCHOOL EXECUTIVE DIRECTOR Gender Identity Not on file Sexual Orientation Not on file documented as of this encounter Miscellaneous Notes * Telephone Encounter - Ruth Farmer LPN - 05/25/2020 3:55 PM CST Left voicemail for Alana. TER SCHOOL EXECUTIVE DIRECTOR * Telephone Encounter - Violeta Posada DO - 05/25/2020 1:07 PM CHARTER SCHOOL EXECUTIVE DIRECTOR Yes please. TER SCHOOL EXECUTIVE DIRECTOR * Telephone Encounter - Ruth Farmer LPN - 05/25/2020 11:47 AM CST It looks like he hasn't had an INR since November TER SCHOOL EXECUTIVE DIRECTOR * Telephone Encounter - Nguyễn Rueda - 05/25/2020 11:24 AM CST Alana with [facility] homecare called and she is asking if dr posada wants her to draw an inr on him [phone] TER SCHOOL EXECUTIVE DIRECTOR documented in this encounter Plan of Treatment Not on file documented as of this encounter Visit Diagnoses Not on filedocumented in this encounter Care Teams Generation Mechanic Helper Relationship Specialty Start Date End Date Violeta Posada DO PCP - General 09/29/16 09/15/21 Spring Banerjee RN [address] [facility] [address] [place] [address] Aluminum Siding Mechanic 05/07/20 12/29/20 Dayana Marina LCSW [address] [facility] [address] [place], [place] [phone] Liquefaction Plant Operator 05/10/20 05/25/20 documented as of this encounter
--- OUTSIDE RECORDS SUMMARY | 2024-07-09 07:08 | XMS_ITS | Encounter Summary ---
Author Organization [facility] Home Care Servic es Address [address] [place] [address] Phone Care Team Providers Care Boring Mill Set Up Operator Name Role Phone Violeta Casillas Primary Care Provider + Spring Banerjee RN Unavailable [phone] Dayana MarinaW Unavailable [phone] Reason for Visit * Auth/Cert Specialty Diagnoses / Procedures Referred By Contsylvester t Referred To Contact Referral ID Status Reason Start Date Expiration Date Visits Re quested Visits Authorized [id number] 1 1 Encounter Details Date Type Department Care Team (Late st Contact Info) Description 05/25/2020 3:00 PM ANIMAL CAREGIVER Home Care Visit [facility] Home Health [address] [address] Josiane Rodriguez PTA PT HOME [...] How often do you attend chur or bahai services? Never 05/13/2020 Do you belong to [...] on file Legal Sex Male 3:40 AM ANIMAL CAREGIVER Gender Identity Not on file Sexual Orientation Not on file documented as of this encounter Last Filed Vital Signs Vital Sign Reading Time Taken Comments Blood Pressure 138/80 05/25/2020 4:25 PM ANIMAL CAREGIVER Pulse 67 05/25/2020 4:25 PM ANIMAL CAREGIVER Temperature 36.8 ??C (98.2 ??F) 05/25/2020 4:25 PM CS T Respiratory Rate 18 05/25/2020 4:25 PM ANIMAL CAREGIVER Oxygen Saturation 93% 05/25/2020 4:25 PM ANIMAL CAREGIVER Inhaled Oxygen Concentration - - Weight - [...] Status Goals Interve ntions Homebound Status Disciplines: Fpc, Physical Therapy Patient's homebound status 05/12/2020 Active 1 goal linked to scheduled/documen max intervention 1 goal intervention scheduled/document ed in this visit Monitor patient's vital signs every home health visit Disciplines: Fpc, Physical Therapy Monitor patient's vital signs every [...] visit during episode of care Description: Home engineering illustrator to measure vital signs during every home [...] orders. documented in this encounter Care Teams Boring Mill Set Up Operator Relationship Specialty Start Date End Date Violeta Casillas DO PCP - General 09/29/16 09/15/21 Spring Banerjee, RN [address] [facility] [address] [place], [place] [phone] Footwear Sales Leader 05/07/20 12/29/20 Dayana Marina, PAINT AND TABLE EDGER [address] [facility] [address] [place], [place] [phone] Primary School Principal 05/10/20 05/25/20 documented as of this encounter
--- OUTSIDE RECORDS SUMMARY | 2024-07-09 07:08 | XMS_ITS | Encounter Summary ---
Author Organization [facility] Home Care Servic es Address [address] [place] [address] Phone Care Team Providers Care Iso Coordinator Name Role Phone Violeta Casillas Primary Care Provider + Spring Banerjee RN Unavailable [phone] Dayana Marina LCSW Unavailable Reason for Visit * Auth/Cert Specialty Diagnoses / Procedures Referred By Contsylvester t Referred To Contact Referral ID Status Reason Start Date Expiration Date Visits Re quested Visits Authorized [id number] 1 1 Encounter Details Date Type Department Care Team (Late st Contact Info) Description 05/25/2020 Home Care Visit [facility] Home Health [address] [address] Alana Aguirre RN TRAVEL SCREENING [...] often do you attend chur ch or hoahaoism services? Never 05/13/2020 Do you belong to [...] file Legal Sex Male 3:40 AM DATA INTEGRITY ANALYST Gender Identity Not on file Sexual Orientation Not on file documented as of this encounter Plan of Treatment Not on file documented as of this encounter Visit Diagnoses Not on filedocumented in this encounter Care Teams Iso Coordinator Relationship Specialty Start Date End Date Violeta Casillas DO PCP - General 09/29/16 09/15/21 Spring Banerjee RN [address] [facility] [address] [place], [place] [phone] Manager Research 05/07/20 12/29/20 Dayana Marina LCSW [address] [facility] [address] [place] [address] Supervisory Training Specialist 05/10/20 05/25/20 documented as of this encounter
--- OUTSIDE RECORDS SUMMARY | 2024-07-09 07:08 | XMS_ITS | Encounter Summary ---
Author Organization [facility] Home Care Servic es Address [address] [place] [address] Phone Care Team Providers Care Locksmith Helper Name Role Phone Violeta Casillas Primary Care Provider + Spring Banerjee RN Unavailable [phone] Dayana Marina LCSW Unavailable [phone] Reason for Visit * Auth/Cert Specialty Diagnoses / Procedures Referred By Ignacia t Referred To Contact Referral ID Status Reason Start Date Expiration Date Visits Re quested Visits Authorized [id number] 1 1 Encounter Details Date Type Department Care Team (Late st Contact Info) Description 05/25/2020 1:00 AM TUGBOAT PILOT Home Care Visit [facility] Home Health [address] [address] Alana Aguirre RN SN HOME VISIT Social History Tobacco [...] any clubs o r organizations such as mandaen groups, unions, fraternal or athletic groups, or [...] on file Legal Sex Male 3:40 AM TUGBOAT PILOT Gender Identity Not on file Sexual Orientation Not on file documented as of this encounter Last Filed Vital Signs Vital Sign Reading Time Taken Comments Blood Pressure 138/80 05/25/2020 10:23 AM TUGBOAT PILOT Pulse 67 05/25/2020 10:23 AM TUGBOAT PILOT Temperature 36.8 ??C (98.2 ??F) 05/25/2020 10:[address] Respiratory Rate 18 05/25/2020 10:23 AM TUGBOAT PILOT Oxygen Saturation 93% 05/25/2020 10:23 AM TUGBOAT PILOT Inhaled Oxygen Concentration - - Weight - - Height - - Body Mass Index - - documented in this encounter Plan of Treatment Not on file documented as of this encounter Visit Diagnoses Not on filedocumented in this encounter Home Health Visit - Care Plan Visit Details Visit Type -SN Home Visit Discipline -Fci Problems Problem Description Start Date Status Goals Interve ntions Homebound Status Disciplines: [facility]ci, Physical Therapy Patient's homebound status 05/12/2020 Active 1 goal linked to scheduled/documen max intervention 1 goal intervention scheduled/document ed in this visit Medications Disciplines: [facility]ci, Physical Therapy Management of home medications 05/12/2020 Active 1 goal linked to scheduled/documen max intervention 2 goal interventions scheduled/document ed in this visit Monitor patient's vital signs every home health visit Disciplines: [facility]ci, Physical Therapy Monitor patient's vital signs every home health visit. 05/12/2020 Active 1 goal linked to scheduled/documen max intervention 1 goal intervention scheduled/document ed in this visit Standardized Guidelines Disciplines: Fci, Physical Therapy Standardized Guidelines 05/12/2020 Active 1 goal linked to scheduled/documen max intervention 1 goal intervention scheduled/document ed in this visit Fall Precautions/Sa fety Concerns Disciplines: Fci, Physical Therapy Alteration in safety 05/12/2020 Active 1 goal linked to scheduled/documen max intervention 1 goal intervention scheduled/document ed in this visit [place] Precautions Disciplines: Fci, Physical Therapy [place] Precautions 05/12/2020 Active 1 goal linked to scheduled/documen max intervention 1 goal intervention scheduled/document ed in this visit Depression Disciplines: Fci, Physical Therapy Depression 05/12/2020 Active 1 goal linked to scheduled/documen max intervention 2 goal interventions scheduled/document ed in this visit Problems with Activity - COPD Disciplines: Fci Decreased tolerance to normal activities related to [...] visit during episode of care Description: Home assistant project manager to measure vital signs during [...] precautions Description: Demonstrate knowledge of universal precautions [place] Precautions No Demonstrate knowledge of depression Description: [...] in absence of home care staff Completed [place] Fall Precautions Description: Assess patient safety Problem:Fall Precautions/Safety Concerns Goal:Demonstrate use of safety precautions Completed Aspects of Care Description: Instruct patient/caregiver on universal precautions and home infection control measures Problem:[place] Precautions Goal:Demonstrate knowledge of universal precautions Completed [...] strategies. documented in this encounter Care Teams Locksmith Helper Relationship Specialty Start Date End Date Violeta CasillasDO PCP - General 09/29/16 09/15/21 Spring Banerjee RN [address] [place] [address] Alto Singer 05/07/20 12/29/20 Dayana Marina LCSW [address] [place], [place] [phone] Credit Card Analyst 05/10/20 05/25/20 documented as of this encounter
--- OUTSIDE RECORDS SUMMARY | 2024-07-09 07:08 | XMS_ITS | Encounter Summary ---
Author Organization [facility] Home Care Servic es Address [address] [place] [address] Phone Care Team Providers Care Field Adjuster Name Role Phone Violeta Casillas DO Primary Care Provider + Spring Banerjee RN Unavailable [phone] Dayana Marina TRANSFER PUMPER Unavailable [phone] Reason for Visit * Auth/Cert Specialty Diagnoses / Procedures Referred By Ignacia t Referred To Contact Referral ID Status Reason Start Date Expiration Date Visits Re quested Visits Authorized [id number] 1 1 Encounter Details Date Type Department Care Team (Late st Contact Info) Description 05/21/2020 Home Care Visit [facility] Home Health [address] [address] Diaz Andrade, HEALTH EDUCATION COORDINATOR CASE COMMUNICATION Social History Tobacco Use Types [...] on file Legal Sex Male 3:40 AM TELEGRAPH REPEATER INSTALLER Gender Identity Not on file Sexual Orientation Not on file documented as of this encounter Plan of Treatment Not on file documented as of this encounter Visit Diagnoses Not on filedocumented in this encounter Care Teams Field Adjuster Relationship Specialty Start Date End Date Violeta Casillas DO PCP - General 09/29/16 09/15/21 Spring Banerjee RN [address] [place] [address] Electronic Induction Hardener 05/07/20 12/29/20 Dayana Marina LCSW [address] [place] [address] Pitch Gatherer 05/10/20 05/25/20 documented as of this encounter
--- OUTSIDE RECORDS SUMMARY | 2024-07-09 07:09 | XMS_ITS | Encounter Summary ---
Author Organization [facility] Home Care Servic es Address [address] [place] [address] Phone Care Team Providers Care Life Insurance Salesperson Name Role Phone Violeta Casillas DO Primary Care Provider + Spring Banerjee RN Unavailable [phone] Dayana Marina REFURBISH TECHNICIAN Unavailable [phone] Reason for Visit * Auth/Cert Specialty Diagnoses / Procedures Referred By Ignacia t Referred To Contact Referral ID Status Reason Start Date Expiration Date Visits Re quested Visits Authorized [id number] 1 1 Encounter Details Date Type Department Care Team (Late st Contact Info) Description 05/20/2020 Home Care Visit [facility] Home Health [address] [address] Diaz Andrade, CONSULTING SALES EXECUTIVE CASE COMMUNICATION Social History Tobacco Use Types [...] any clubs o r organizations such as yazdanism groups, unions, fraternal or athletic groups, or [...] on file Legal Sex Male 3:40 AM MARKETING MANAGER Gender Identity Not on file Sexual Orientation Not on file documented as of this encounter Plan of Treatment Not on file documented as of this encounter Visit Diagnoses Not on filedocumented in this encounter Care Teams Life Insurance Salesperson Relationship Specialty Start Date End Date Violeta Casillas DO PCP - General 09/29/16 09/15/21 Spring Banerjee RN [address] [place] [address] Park Aide 05/07/20 12/29/20 Dayana Marina LCSW [address] [place] [address] Piccolo Mechanic 05/10/20 05/25/20 documented as of this encounter
--- OUTSIDE RECORDS SUMMARY | 2024-07-09 07:10 | XMS_ITS | Encounter Summary ---
Author Organization [facility] Home Care Servic es Address [address] [place] [address] Phone Care Team Providers Care Dog Behaviorist Name Role Phone Violeta Casillas Primary Care Provider + Spring Banerjee RN Unavailable [phone] Dayana Marina LCSW Unavailable [phone] Reason for Visit * Auth/Cert Specialty Diagnoses / Procedures Referred By Ignacia t Referred To Contact Referral ID Status Reason Start Date Expiration Date Visits Re quested Visits Authorized [id number] 1 1 Encounter Details Date Type Department Care Team (Late st Contact Info) Description 05/18/2020 9:15 AM LITIGATION ATTORNEY ASSOCIATE Home Care Visit [facility] Home Health [address] [address] Bindu Guillen RN SN HOME [...] How often do you attend chur or yazidism services? Never 05/13/2020 Do you [...] on file Legal Sex Male 3:40 AM LITIGATION ATTORNEY ASSOCIATE Gender Identity Not on file Sexual Orientation Not on file documented as of this encounter Last Filed Vital Signs Vital Sign Reading Time Taken Comments Blood Pressure 148/80 05/18/2020 9:15 AM LITIGATION ATTORNEY ASSOCIATE Pulse 65 05/18/2020 9:15 AM LITIGATION ATTORNEY ASSOCIATE Temperature 36.8 ??C (98.2 ??F) 05/18/2020 9:15 AM CS T Respiratory Rate 18 05/18/2020 9:15 AM LITIGATION ATTORNEY ASSOCIATE Oxygen Saturation 94% 05/18/2020 9:15 AM LITIGATION ATTORNEY ASSOCIATE Inhaled Oxygen Concentration - - Weight - [...] visit during episode of care Description: Home gravel weigher to measure vital signs during every home [...] prepared in advance by another in med inventory planner. Medications taught all. Instruct on High [...] HAND RAILS TO PREVENT FALLS. Understanding verbalized [place] Fall Precautions Description: Assess patient safety Problem:Fall Precautions/Safety Concerns Goal:Demonstrate use of safety precautions Completed documented in this encounter Home Health Visit - Actions and Narratives Actions Med inventory planner filled by SN per prescribed orders. Med inventory planner correct on sn departure. documented in this encounter Care Teams Dog Behaviorist Relationship Specialty Start Date End Date Violeta Casillas DO PCP - General 09/29/16 09/15/21 Spring Banerjee RN [address] [place] [address] Pharmacy Aide 05/07/20 12/29/20 Dayana Marina LCSW [address] [place], [place] [id number] Shipyard Helper 05/10/20 05/25/20 documented as of this encounter
--- OUTSIDE RECORDS SUMMARY | 2024-07-09 07:10 | XMS_ITS | Encounter Summary ---
Author Organization [facility] Home Care [facility] es Address [address] [place] [address] Phone Care Team Providers Care Sealing Machine Operator Name Role Phone Violeta Casillas Primary Care Provider + Spring Banerjee RN Unavailable [phone] Dayana MarinaW Unavailable [phone] Reason for Visit * Auth/Cert Specialty Diagnoses / Procedures Referred By Contsylvester t Referred To Contact Referral ID Status Reason Start Date Expiration Date Visits Re quested Visits Authorized [id number] 1 1 Encounter Details Date Type Department Care Team (Late st Contact Info) Description 05/19/2020 Home Care Visit [facility] Home Health [address] [address] Josiane Rodriguez PTA TRAVEL SCREENING [...] often do you attend chur ch or catholic services? Never 05/13/2020 Do you belong to any clubs o r organizations such as christianity groups, unions, fraternal or athletic groups, or [...] on file Legal Sex Male 3:40 AM NEMATOLOGY TEACHER Gender Identity Not on file Sexual Orientation Not on file documented as of this encounter Plan of Treatment Not on file documented as of this encounter Visit Diagnoses Not on filedocumented in this encounter Care Teams Sealing Machine Operator Relationship Specialty Start Date End Date Violeta Casillas DO PCP - General 09/29/16 09/15/21 Spring Banerjee RN [address] [id number] Feeder Loader 05/07/20 12/29/20 Dayana Marina LCSW [address] [address] Food Prep Worker 05/10/20 05/25/20 documented as of this encounter
--- OUTSIDE RECORDS SUMMARY | 2024-07-09 07:10 | XMS_ITS | Encounter Summary ---
Author Organization [facility] Home Care Servic es Address [address] [place] [address] Phone Care Team Providers Care Professor Of Rhetoric Name Role Phone Violeta Casillas Primary Care Provider + Spring Banerjee RN Unavailable [phone] Dayana MarinaW Unavailable Reason for Visit * Auth/Cert Specialty Diagnoses / Procedures Referred By Ignacia t Referred To Contact Referral ID Status Reason Start Date Expiration Date Visits Re quested Visits Authorized [id number] 1 1 Encounter Details Date Type Department Care Team (Latest Contact Info) Description 05/14/2020 10:30 AM CASH SHORTAGE INVESTIGATOR Home Care Visit [facility] [address] [address] Yakelin Landon, PT PT INITIAL [...] on file Legal Sex Male 3:40 AM CASH SHORTAGE INVESTIGATOR Gender Identity Not on file Sexual Orientation Not on file documented as of this encounter Last Filed Vital Signs Vital Sign Reading Time Taken Comments Blood Pressure 148/78 05/14/2020 10:15 AM CASH SHORTAGE INVESTIGATOR Pulse 80 05/14/2020 10:15 AM CASH SHORTAGE INVESTIGATOR Temperature 36.8 ??C (98.3 ??F) 05/14/2020 10:[address] Respiratory Rate 18 05/14/2020 10:15 AM CASH SHORTAGE INVESTIGATOR Oxygen Saturation 96% 05/14/2020 10:15 AM CASH SHORTAGE INVESTIGATOR Inhaled Oxygen Concentration - - Weight - [...] Status Goals Interve ntions Homebound Status Disciplines: Penitentiary, Physical Therapy Patient's homebound status 05/12/2020 Active 1 goal linked to scheduled/documen max intervention 1 goal intervention scheduled/document ed in this visit Monitor patient's vital signs every home health visit Disciplines: Penitentiary, Physical Therapy Monitor patient's vital signs every home health visit. 05/12/2020 Active 1 goal linked to scheduled/documen max intervention 1 goal intervention scheduled/document ed in this visit Fall Precautions/Saf ety Concerns Disciplines: Penitentiary, Physical Therapy Alteration in safety 05/12/2020 Active [...] visit during episode of care Description: Home installation drafter to measure vital signs during every home [...] Concerns Goal:Demonstrate use of safety precautions Completed [place] Fall Precautions Description: Assess patient safety Problem:Fall [...] Completed documented in this encounter Care Teams Professor Of Rhetoric Relationship Specialty Start Date End Date Violeta CasillasDO PCP - General 09/29/16 09/15/21 Spring Banerjee RN [address] [place], [place] [phone] Admissions Supervisor 05/07/20 12/29/20 Dayana Marina LCSW [address] [place] [address] Manager Community Relations 05/10/20 05/25/20 documented as of this encounter
--- OUTSIDE RECORDS SUMMARY | 2024-07-09 07:10 | XMS_ITS | Encounter Summary ---
Author Organization [facility] Home Care Servic es Address [address] [place] [address] Phone Care Team Providers Care Sew Out Operator Name Role Phone Violeta Casillas Primary Care Provider + Spring Banerjee RN Unavailable [phone] Dayana MarinaW Unavailable [phone] Reason for Visit * Auth/Cert Specialty Diagnoses / Procedures Referred By Contsylvester t Referred To Contact Referral ID Status Reason Start Date Expiration Date Visits Re quested Visits Authorized [id number] 1 1 Encounter Details Date Type Department Care Team (Late st Contact Info) Description 05/19/2020 2:00 PM RUG SETTER VELVET Home Care Visit [facility] Home Health [address] [address] Josiane Rodriguez PTA PT HOME [...] How often do you attend chur or quaker services? Never 05/13/2020 Do you [...] on file Legal Sex Male 3:40 AM RUG SETTER VELVET Gender Identity Not on file Sexual Orientation Not on file documented as of this encounter Last Filed Vital Signs Vital Sign Reading Time Taken Comments Blood Pressure 168/74 05/19/2020 2:20 PM RUG SETTER VELVET Pulse 62 05/19/2020 2:20 PM RUG SETTER VELVET Temperature 36.6 ??C (97.9 ??F) 05/19/2020 2:20 PM CS T Respiratory Rate 18 05/19/2020 2:20 PM RUG SETTER VELVET Oxygen Saturation 94% 05/19/2020 2:20 PM RUG SETTER VELVET Inhaled Oxygen Concentration - - Weight - [...] Status Goals Interve ntions Homebound Status Disciplines: Residential, Physical Therapy Patient's homebound status 05/12/2020 Active 1 goal linked to scheduled/documen max intervention 1 goal intervention scheduled/document ed in this visit Monitor patient's vital signs every home health visit Disciplines: Residential, Physical Therapy Monitor patient's vital signs every [...] visit during episode of care Description: Home solid waste analyst to measure vital signs during every home [...] orders. documented in this encounter Care Teams Sew Out Operator Relationship Specialty Start Date End Date Violeta Casillas DO PCP - General 09/29/16 09/15/21 Spring Banerjee, RN [address] [place], [place] [id number] Business Development Analyst 05/07/20 12/29/20 Dyaana Marina LCSW [address] [place], [place] [phone] Recreation Counselor 05/10/20 05/25/20 documented as of this encounter
--- OUTSIDE RECORDS SUMMARY | 2024-07-09 07:10 | XMS_ITS | Encounter Summary ---
Author Organization [facility] Home Care Servic es Address [address] [place] [address] Phone Care Team Providers Care Felt Finishing Supervisor Name Role Phone Violeta Casillas Primary Care Provider + Spring Banerjee RN Unavailable [phone] Dayana Marina LCSW Unavailable [phone] Reason for Visit * Auth/Cert Specialty Diagnoses / Procedures Referred By Contsylvester t Referred To Contact Referral ID Status Reason Start Date Expiration Date Visits Re quested Visits Authorized [id number] 1 1 Encounter Details Date Type Department Care Team (Late st Contact Info) Description 05/18/2020 Home Care Visit [facility] Home Health [address] [phone] Bindu Guillen SURVEYOR INSTRUMENT ASSISTANT SCREENING CASE COMMUNICATION Social History Tobacco Use [...] on file Legal Sex Male 3:40 AM VIDEO EDITOR Gender Identity Not on file Sexual Orientation Not on file documented as of this encounter Plan of Treatment Not on file documented as of this encounter Visit Diagnoses Not on filedocumented in this encounter Care Teams Felt Finishing Supervisor Relationship Specialty Start Date End Date Violeta Casillas DO PCP - General 09/29/16 09/15/21 Spring Banerjee RN [address] [place] [address] Container Maker 05/07/20 12/29/20 Dayana Marina LCSW [address] [place] [address] Community Associate 05/10/20 05/25/20 documented as of this encounter
--- OUTSIDE RECORDS SUMMARY | 2024-07-09 07:10 | XMS_ITS | Encounter Summary ---
Author Organization [facility] Home Care Servic es Address [address] [place] [address] Phone Care Team Providers Care Therapeutic Case Manager Name Role Phone Violeta Casillas Primary Care Provider + Spring Banerjee RN Unavailable [phone] Dayana Marina LCSW Unavailable [phone] Reason for Visit * Auth/Cert Specialty Diagnoses / Procedures Referred By Ignacia t Referred To Contact Referral ID Status Reason Start Date Expiration Date Visits Re quested Visits Authorized [id number] 1 1 Encounter Details Date Type Department Care Team (Late st Contact Info) Description 05/19/2020 Home Care Visit [facility] Home Health [address] [phone] Alana Aguirre, [facility] [...] file Legal Sex Male 3:40 AM SOFTWARE WRITER Gender Identity Not on file Sexual Orientation Not on file documented as of this encounter Plan of Treatment Not on file documented as of this encounter Visit Diagnoses Not on filedocumented in this encounter Care Teams Therapeutic Case Manager Relationship Specialty Start Date End Date Violeta Casillas DO PCP - General 09/29/16 09/15/21 Spring Banerjee RN [address] [place] [address] Drivability Technician 05/07/20 12/29/20 Dayana Marina LCSW [address] [place] [address] Marina Dry Dock Manager 05/10/20 05/25/20 documented as of this encounter
--- OUTSIDE RECORDS SUMMARY | 2024-07-09 07:10 | XMS_ITS | Encounter Summary ---
Author Organization [facility] Home Care Servic es Address [address] [place] [address] Phone Care Team Providers Care Lens Coater Name Role Phone Violeta Casillas Primary Care Provider + Spring Banerjee RN Unavailable [phone] Dayana MarinaW Unavailable [phone] Reason for Visit * Auth/Cert Specialty Diagnoses / Procedures Referred By Contsylvester t Referred To Contact Referral ID Status Reason Start Date Expiration Date Visits Re quested Visits Authorized [id number] 1 1 Encounter Details Date Type Department Care Team (Late st Contact Info) Description 05/17/2020 Home Care Visit [facility] Home Health [address] [phone] Josiane Rodriguez PTA TRAVEL SCREENING [...] often do you attend chur ch or druze services? Never 05/13/2020 Do you [...] on file Legal Sex Male 3:40 AM MATCH MAKER Gender Identity Not on file Sexual Orientation Not on file documented as of this encounter Plan of Treatment Not on file documented as of this encounter Visit Diagnoses Not on filedocumented in this encounter Care Teams Lens Coater Relationship Specialty Start Date End Date Violeta Casillas DO PCP - General 09/29/16 09/15/21 Spring Banerjee RN [address] [place], [place] [id number] Oral Health Therapist 05/07/20 12/29/20 Dayana Marina LCSW [address] [place] [address] Yarn Weigher 05/10/20 05/25/20 documented as of this encounter
--- OUTSIDE RECORDS SUMMARY | 2024-07-09 07:10 | XMS_ITS | Encounter Summary ---
Author Organization [facility] Home Care Serv[facility] es Address [address] [place] [address] Phone Care Team Providers Care 2 Year Olds Preschool Teacher Name Role Phone Violeta Casillas Primary Care Provider + Spring Banerjee RN Unavailable [phone] Dayana Marina GAS WELL DRILLING MANAGER Unavailable [phone] Reason for Visit * Auth/Cert Specialty Diagnoses / Procedures Referred By Ignacia t Referred To Contact Referral ID Status Reason Start Date Expiration Date Visits Re quested Visits Authorized [id number] 1 1 Encounter Details Date Type Department Care Team (Late st Contact Info) Description 05/14/2020 Home Care Visit [facility] Home Health [address] [phone] Yakelin Landon, PT TRAVEL SCREENING [...] on file Legal Sex Male 3:40 AM DIVISION OFFICER WEAPONS DEPARTMENT Gender Identity Not on file Sexual Orientation Not on file documented as of this encounter Plan of Treatment Not on file documented as of this encounter Visit Diagnoses Not on filedocumented in this encounter Care Teams 2 Year Olds Preschool Teacher Relationship Specialty Start Date End Date Violeta Casillas DO PCP - General 09/29/16 09/15/21 Spring Banerjee RN [address] [place] [address] Bobbin Washer 05/07/20 12/29/20 Dayana Marina LCSW [address] [place] [address] Paper Counter 05/10/20 05/25/20 documented as of this encounter
--- OUTSIDE RECORDS SUMMARY | 2024-07-09 07:10 | XMS_ITS | Encounter Summary ---
Author Organization [facility] Home Care Servic es Address [address] [place] [address] Phone Care Team Providers Care Clinical Informatics Spec Name Role Phone Violeta Casillas Primary Care Provider + Spring Banerjee RN Unavailable [phone] Dayana MarinaW Unavailable [phone] Reason for Visit * Auth/Cert Specialty Diagnoses / Procedures Referred By Contsylvester t Referred To Contact Referral ID Status Reason Start Date Expiration Date Visits Re quested Visits Authorized [id number] 1 1 Encounter Details Date Type Department Care Team (Late st Contact Info) Description 05/17/2020 3:00 PM LINDERMAN MACHINE OPERATOR Home Care Visit [facility] Home Health [address] [address] Josiane Rodriguez PTA PT HOME [...] How often do you attend chur or roman catholic services? Never 05/13/2020 Do you belong to any clubs o r organizations such as yarsanism groups, unions, fraternal or athletic groups, or [...] on file Legal Sex Male 3:40 AM LINDERMAN MACHINE OPERATOR Gender Identity Not on file Sexual Orientation Not on file documented as of this encounter Last Filed Vital Signs Vital Sign Reading Time Taken Comments Blood Pressure 160/70 05/17/2020 3:15 PM LINDERMAN MACHINE OPERATOR Pulse 76 05/17/2020 3:15 PM LINDERMAN MACHINE OPERATOR Temperature 36.4 ??C (97.5 ??F) 05/17/2020 3:15 PM CS T Respiratory Rate 18 05/17/2020 3:15 PM LINDERMAN MACHINE OPERATOR Oxygen Saturation 93% 05/17/2020 3:15 PM LINDERMAN MACHINE OPERATOR Inhaled Oxygen Concentration - - Weight [...] visit during episode of care Description: Home sound person to measure vital signs during every home [...] orders. documented in this encounter Care Teams Clinical Informatics Spec Relationship Specialty Start Date End Date Violeta Casillas PCP - General 09/29/16 09/15/21 Spring Banerjee RN [address] [place] [address] Cinder Snapper 05/07/20 12/29/20 Dayana Marina, MIKO [address] [place] [address] Rectifying Attendant 05/10/20 05/25/20 documented as of this encounter
--- OUTSIDE RECORDS SUMMARY | 2024-07-09 07:11 | XMS_ITS | Encounter Summary ---
Author Organization [facility] Home Care Servic es Address [address] [place] [address] Phone Care Team Providers Care Street Light Servicer Name Role Phone Violeta Casillas DO Primary Care Provider + Spring Banerjee RN Unavailable [phone] Dayana Marina FROZEN FOOD SELECTOR Unavailable [phone] Encounter Details Date Type Department Care Team (Late st Contact Info) Description 05/12/2020 Plan of Care Documentation [facility] Home Health [address] [address] Social History Tobacco Use Types [...] on file Legal Sex Male 3:40 AM INSTRUMENTATION SUPERVISOR Gender Identity Not on file Sexual Orientation Not on file documented as of this encounter Plan of Treatment Not on file documented as of this encounter Visit Diagnoses Not on filedocumented in this encounter Care Teams Street Light Servicer Relationship Specialty Start Date End Date Violeta Casillas DO PCP - General 09/29/16 09/15/21 Spring Banerjee RN [address] [place] [address] School Inspector 05/07/20 12/29/20 Dayana Marina LCSW [address] [place], [place] [id number] Investigation Officer 05/10/20 05/25/20 documented as of this encounter
--- OUTSIDE RECORDS SUMMARY | 2024-07-09 07:11 | XMS_ITS | Encounter Summary ---
Author Organization [facility] Home Care Servic es Address [address] [place] [address] Phone Care Team Providers Care Internal Salesperson Name Role Phone Violeta Casillas Primary Care Provider + Spring Banerjee RN Unavailable [phone] Dayana MarinaW Unavailable [phone] Encounter Details Date Type Department Care Team (Late st Contact Info) Description 05/11/2020 Telephone [facility] Home Care Services [address] [place] [address] Radha Cheung RN Social History Tobacco Use [...] and Family Not on file 05/12/2020 Attends Jainism Services Not on file 05/12 Active Member of Clubs or Organizations Not on f ile 05/12/2020 Attends Club or Organization Meetings Not on jose e 05/12/2020 Marital Status Not on file 05/12/2020 PHQ-2 Answer Date Recorded PHQ-2 Score 2 05/06/2020 Sex and Gender Information Value Date Recorded Sex Assigned at Not on file Legal Sex Male 3:40 AM FLATWORK CATCHER Gender Identity Not on file Sexual Orientation Not on file documented as of this encounter Miscellaneous Notes * Telephone Encounter - Radha Cheung RN - 05/11/2020 12:44 PM FLATWORK CATCHER SPOKE TO PATIENT AND INFORMED OF ACCEPTANCE TO [facility]. HE AGREES FOR SOC TOMORROW. DR. HOLDEN FOLLOW FOR HOME CARE AND ORDERS. WORK CATCHER documented in this encounter Plan of Treatment Not on file documented as of this encounter Visit Diagnoses Not on filedocumented in this encounter Care Teams Internal Salesperson Relationship Specialty Start Date End Date Violeta Casillas DO PCP - General 09/29/16 09/15/21 Spring Banerjee RN [address] [place] [address] [address] [place], [place] [id number] Theatre Director 05/07/20 12/29/20 Dayana Marina LCSW [address] [place] [address] [address] [place], [place] [id number] Fraud Representative 05/10/20 05/25/20 documented as of this encounter
--- OUTSIDE RECORDS SUMMARY | 2024-07-09 07:11 | XMS_ITS | Encounter Summary ---
Author Organization [facility] Home Care Servic es Address [address] [place] [address] Phone Care Team Providers Care Family Court Registrar Name Role Phone Violeta Casillas Primary Care Provider + Spring Banerjee RN Unavailable [phone] Dayana Marina LCSW Unavailable [phone] Reason for Visit * Auth/Cert Specialty Diagnoses / Procedures Referred By Ignacia t Referred To Contact Referral ID Status Reason Start Date Expiration Date Visits Re quested Visits Authorized [id number] 1 1 Encounter Details Date Type Department Care Team (Late st Contact Info) Description 05/12/2020 Home Care Visit [facility] Home Health [address] [address] Shanelle Guillen, PAN TANK WORKER SCREENING CASE COMMUNICATION Social History Tobacco Use [...] file Legal Sex Male 3:40 AM MANAGER ONLINE Gender Identity Not on file Sexual Orientation Not on file documented as of this encounter Plan of Treatment Not on file documented as of this encounter Visit Diagnoses Not on filedocumented in this encounter Care Teams Family Court Registrar Relationship Specialty Start Date End Date Violeta Casillas DO PCP - General 09/29/16 09/15/21 Spring Banerjee RN [address] [place] [address] Materials Branch Chief 05/07/20 12/29/20 Dayana Marina LCSW [address] [place] [address] Butane Compressor Operator 05/10/20 05/25/20 documented as of this encounter
--- OUTSIDE RECORDS SUMMARY | 2024-07-09 07:11 | XMS_ITS | Encounter Summary ---
Author Organization [facility] Home Care Servic es Address [address] [place] [address] Phone Care Team Providers Care Picker And Sorter Load And Unload Name Role Phone Violeta Casillas Primary Care Provider + Spring Banerjee RN Unavailable [phone] Dayana Marina LCSW Unavailable [phone] Reason for Visit * Auth/Cert Specialty Diagnoses / Procedures Referred By Ignacia t Referred To Contact Referral ID Status Reason Start Date Expiration Date Visits Re quested Visits Authorized [id number] 1 1 Encounter Details Date Type Department Care Team (Latest Contact Info) Description 05/12/2020 11:00 AM MICROFILM OPERATOR Home Care Visit [facility] Health [address] [address] Shanelle Guillen RN SN OASIS [...] on file Legal Sex Male 3:40 AM MICROFILM OPERATOR Gender Identity Not on file Sexual Orientation Not on file documented as of this encounter Last Filed Vital Signs Vital Sign Reading Time Taken Comments Blood Pressure 132/70 05/12/2020 12:39 PM MICROFILM OPERATOR Pulse 74 05/12/2020 12:39 PM MICROFILM OPERATOR Temperature 37.2 ??C (99 ??F) 05/12/2020 12:39 PM MICROFILM OPERATOR Respiratory Rate 22 05/12/2020 12:39 PM MICROFILM OPERATOR Oxygen Saturation 95% 05/12/2020 12:39 PM MICROFILM OPERATOR Inhaled Oxygen Concentration - - Weight 70.3 kg (155 lb) 05/12/2020 12:39 PM MICROFILM OPERATOR Height - - Body Mass Index 21.02 05/06/2020 1:01 PM MICROFILM OPERATOR documented in this encounter Plan of Treatment Not on file documented as of this encounter Visit Diagnoses Not on filedocumented in this encounter Home Health Visit - Care Plan Visit Details Visit Type -SN OASIS Start o f Care Discipline -Correction Problems Problem Description Start Date Status Goals Interve ntions Homebound Status Disciplines: Correction, Physical Therapy Patient's homebound status 05/12/2020 Active 1 goal linked to scheduled/documen max intervention 1 goal intervention scheduled/document ed in this visit Medications Disciplines: Correction, Physical Therapy Management of home medications 05/12/2020 Active 1 goal linked to scheduled/documen max intervention 2 goal interventions scheduled/document ed in this visit Monitor patient's vital signs every home health visit Disciplines: Correction, Physical Therapy Monitor patient's vital signs every home health visit. 05/12/2020 Active 1 goal linked to scheduled/documen max intervention 1 goal intervention scheduled/document ed in this visit Infection Prevention Disciplines: Correction, Physical Therapy Infection Prevention 05/12/2020 Active 1 goal linked to scheduled/documen max intervention 1 goal intervention scheduled/document ed in this visit Fall Precautions/Sa fety Concerns Disciplines: Correction, Physical Therapy Alteration in safety 05/12/2020 Active 1 goal linked to scheduled/documen max intervention 1 goal intervention scheduled/document ed in this visit Depression Disciplines: Correction, Physical Therapy Depression 05/12/2020 Active 1 goal linked to scheduled/documen max intervention 1 goal intervention scheduled/document ed in this visit Problems with Activity - COPD Disciplines: Correction Decreased tolerance to normal activities related to dyspnea and fatigue 05/12/2020 Active 1 goal linked to scheduled/documen max intervention 1 goal intervention scheduled/document ed in this visit Breathing Problems - COPD Disciplines: Correction Ineffective breathing pattern related to respiratory disease [...] OF MEDICATIONS. SN PROVIDED PATIENT WITH MED WAVE SOLDER OFFBEARER AND SET UP MEDICATIONS FOR PATIENT. PATIENT HAD SOME OLD MEDICATIONS NO LONGER ORDERED AND PATIENT THREW THEM AWAY SO TO NOT GET CONFUSED. PATIENT VERBALIZED UNDERSTANDING OF MED WAVE SOLDER OFFBEARER AND WHEN TO TAKE MEDICATIONS Instruct on [...] HANDWASHING USING SOAP AND WATER OR HAND FITNESS DIRECTOR, MAINTAINING CLEANLINESS OF FREQUENTLY TOUCHED AND FREQUENTLY [...] AFFORD IT. SN EXPLAINED THAT PATIENT HAS CLERK CARRIER CONSULT WHO HOPEFULLY WILL BE ABLE TO [...] 1 - 8 the patient is illiterate. [id number] - Mobility: Code the patient? s usual [...] cues/steadying was required to complete this activity. [id number].D.1 - Sit to stand: The ability to come to a standing position from sitting in a chair, wheelchair, or on the side of the bed. Documented Answer: 05. Setup or clean-up assistance ? [place] sets up or cleans up; patient completes activity. [place] assists only prior to or following the activity. Recommendation: 04. Supervision or touching assistance ? [place] provides verbal cues and/or touching/steadying and/or contact guard assistance as patient completes activity. Assistance may be provided throughout the activity or intermittently. [id number].E.[id number] - Chair/uaj-yu-ubgif transfer: The ability to transfer to and from a bed to a chair (or wheelchair). Documented Answer: 05. Setup or clean-up assistance ? [place] sets up or cleans up; patient completes activity. [place] assists only prior to or following the activity. Recommendation: 04. Supervision or touching assistance ? [place] provides verbal cues and/or touching/steadying and/or contact guard assistance as patient completes activity. Assistance may be provided throughout the activity or intermittently. [id number] FD0605.G.[id number] - Car Transfer: The ability to transfer in and out of a car or van on the passenger side. Does not include the ability to open/close door or fasten seat belt. Documented Answer: 05. Setup or clean-up assistance ? [place] sets up or cleans up; patient completes activity. [place] assists only prior to or following the activity. Recommendation: 04. Supervision or touching assistance ? [place] provides verbal cues and/or touching/steadying and/or contact guard assistance as patient completes activity. Assistance may be provided throughout the activity or intermittently. [id number] PQ4448.I.1 - Walk 10 feet: Once standing, the ability to walk at least 10 feet in a room, corridor, or similar space. If SOC/KAREN performance is coded 07, 09, 10 or 88, skip to [id number], 1 step (curb) Documented Answer: 05. Setup or clean-up assistance ? [place] sets up or cleans up; patient completes activity. [place] assists only prior to or following the activity. Recommendation: 04. Supervision or touching assistance ? [place] provides verbal cues and/or touching/steadying and/or contact guard assistance as patient completes activity. Assistance may be provided throughout the activity or intermittently. [id number] BV1716.J.1 - Walk 50 feet with two turns: Once standing, the ability to walk 50 feet and make two turns. Documented Answer: 05. Setup or clean-up assistance ? [place] sets up or cleans up; patient completes activity. [place] assists only prior to or following the activity. Recommendation: 04. Supervision or touching assistance ? [place] provides verbal cues and/or touching/steadying and/or contact guard assistance as patient completes activity. Assistance may be provided throughout the activity or intermittently. M1028 - Comorbidities and Co-existing Conditions Recommendation: 3 - None of the above none documented 05/17/20 -EVI Ray Chart review and recommendations completed by:EDDIE Ham documented in this encounter Care Teams Picker And Sorter Load And Unload Relationship Specialty Start Date End Date Violeta Casillas DO PCP - General 09/29/16 09/15/21 Spring Banerjee RN [address] [place], [place] [id number] Fiber Design Engineer 05/07/20 12/29/20 Dayana Marina LCSW [address] [place], [place] [phone] Fire Boat Engineer 05/10/20 05/25/20 documented as of this encounter
--- OUTSIDE RECORDS SUMMARY | 2024-07-09 07:11 | XMS_ITS | Encounter Summary ---
Author Organization [facility] Home Care Servic es Address [address] [place] [address] Phone Care Team Providers Care Bleach Tester Name Role Phone Violeta Casillas Primary Care Provider + Spring Banerjee RN Unavailable [phone] Dayana Marina LCSW Unavailable [phone] Reason for Visit * Auth/Cert Specialty Diagnoses / Procedures Referred By Contsylvester t Referred To Contact Referral ID Status Reason Start Date Expiration Date Visits Re quested Visits Authorized [id number] 1 1 Encounter Details Date Type Department Care Team (Late st Contact Info) Description 05/12/2020 Home Care Visit [facility] Home Health [address] [address] Shanelle Guillen, TIFFANY SBAR-START OF [...] often do you attend chur ch or bahai services? Never 05/13/2020 Do you [...] on file Legal Sex Male 3:40 AM SOLUTIONS DEVELOPMENT ANALYST Gender Identity Not on file Sexual Orientation Not on file documented as of this encounter Plan of Treatment Not on file documented as of this encounter Visit Diagnoses Not on filedocumented in this encounter Care Teams Bleach Tester Relationship Specialty Start Date End Date Violeta Casillas DO PCP - General 09/29/16 09/15/21 Spring Banerjee, TIFFANY [address] [place] [address] Automatic Shirring Machine Operator 05/07/20 12/29/20 Dayana Marina LCSW [address] [place] [address] Construction Management Assistant 05/10/20 05/25/20 documented as of this encounter
--- OUTSIDE RECORDS SUMMARY | 2024-07-09 07:12 | XMS_ITS | Encounter Summary ---
Author Organization [facility] Address [address] [place] [address] Care Team Providers Care Casting Repairer Name Role Phone CasillasDiazlexa Dominic Primary Care Provider + Spring Banerjee RN Unavailable [phone] Dayana Marina REGIONAL CONSTRUCTION MANAGER Unavailable [phone] Reason for Visit * Reason Onset Date Comments Patient issue/concern 05/10/2020 Encounter Details Date Type Department Care Team (Late st Contact Info) Description 05/10/2020 Telephone [facility] [address] [place] [address] Spring Banerjee, RN [address] [place] [address] [address] [place] [address] Patient issue/concern Social History Tobacco Use Types [...] and Family Not on file 05/12/2020 Attends Spiritism Services Not on file 05/12 Active Member of Clubs or Organizations Not on f ile 05/12/2020 Attends Club or Organization Meetings Not on jose e 05/12/2020 Marital Status Not on file 05/12/2020 PHQ-2 Answer Date Recorded PHQ-2 Score 2 05/06/2020 Sex and Gender Information Value Date Recorded Sex Assigned at Not on file Legal Sex Male 3:40 AM ELECTRICAL MAINTENANCE WORKER Gender Identity Not on file Sexual Orientation Not on file documented as of this encounter Miscellaneous Notes * Telephone Encounter - Ruth Farmer LPN - 05/11/2020 8:47 AM CST Orders placed for [facility] Home Care TRICAL MAINTENANCE WORKER * Telephone Encounter - Violeta Casillas DO - 05/11/2020 8:38 AM ELECTRICAL MAINTENANCE WORKER That sounds like a great idea as long as its not too expensive because he seems fixated on that whenever I try to think about treatment options for him. I say we try that. Will have Ruth put those orders in. SN, SW, and PT TRICAL MAINTENANCE WORKER * Telephone Encounter - Ruth Farmer LPN - 05/10/2020 2:01 PM CST See note TRICAL MAINTENANCE WORKER * Telephone Encounter - Spring Banerjee RN - 05/10/2020 1:48 PM ELECTRICAL MAINTENANCE WORKER This ACO pt has been enrolled into [...] be beneficial? Please Advise, Spring HAQUE RN [facility] - ACO Senior Training And Development Rep [phone] TRICAL MAINTENANCE WORKER documented in this encounter Plan of Treatment [...] hypertension documented in this encounter Care Teams Casting Repairer Relationship Specialty Start Date End Date CasillasVioletaDO PCP - General 09/29/16 09/15/21 Spring Banerjee RN [address] [place], [place] [id number] Senior Training And Development Rep 05/07/20 12/29/20 Dayana Marina LCSW [address] [place], [place] [phone] Rug Cleaner Hand 05/10/20 05/25/20 documented as of this encounter
--- OUTSIDE RECORDS SUMMARY | 2024-07-09 07:12 | XMS_ITS | Encounter Summary ---
Author Organization [facility] Address [address] [place] [address] Care Team Providers Care Sap Gatherer Name Role Phone Violeta Casillas DO Primary Care Provider + Spring Banerjee RN Unavailable [phone] Dayana Marina MAPPING ENGINEER Unavailable [phone] Encounter Details Date Type Department Care Team (Late st Contact Info) Description 05/10/2020 Telephone [facility] [address] [place] [address] Violeta Casillas DO [address] [place] [address] Social History Tobacco Use Types Packs/Day Years Used Date Smoking Tobacco: Former Smokeless Tobacco: Former Alcohol Use Standard Drinks/Week Comments Yes 0 (1 standard drink = 0.6 oz pur e alcohol) PHQ-2 Answer Date Recorded PHQ-2 Score 2 05/06/2020 Sex and Gender Information Value Date Recorded Sex Assigned at Not on file Legal Sex Male 3:40 AM LEATHERSMITH Gender Identity Not on file Sexual Orientation Not on file documented as of this encounter Miscellaneous Notes * Telephone Encounter - Violeta Casillas DO - 05/11/2020 8:42 AM LEATHERSMITH ELLYN Moulton the Requip (ropinirole) was helpful for tremors. HERSMITH * Telephone Encounter - Kendra Dickerson - 05/10/2020 12:00 PM CST Pt called and he states the new meds that you gave him seem to working good for him HERSMITH documented in this encounter Plan of Treatment Not on file documented as of this encounter Visit Diagnoses Not on filedocumented in this encounter Care Teams Sap Gatherer Relationship Specialty Start Date End Date Violeta Casillas DO PCP - General 09/29/16 09/15/21 Spring Banerjee RN [address] [place] [address] Math Tutor 05/07/20 12/29/20 Dayana Marina LCSW [address] [place] [address] Scissors Sharpener 05/10/20 05/25/20 documented as of this encounter
--- OUTSIDE RECORDS SUMMARY | 2024-07-09 07:12 | XMS_ITS | Encounter Summary ---
Author Organization [facility] Medical Group Address [address] [facility] [address] [place] [address] Care Team Providers Care Parcel Contractor Name Role Phone Violeta Casillas DO Primary Care Provider + Reason for Visit * Reason Comments Dizziness falls Encounter Details Date Type Department Care Team (Late st Contact Info) Description 05/06/2020 1:00 PM CHAIRMAN & CEO Office Visit [facility] [address] [place] [address] Violeta Casillas DO [address] [place] [address] Frequent falls (Primary Dx); Immunization due; Episode [...] on file Legal Sex Male 3:40 AM CHAIRMAN & CEO Gender Identity Not on file Sexual Orientation Not on file documented as of this encounter Last Filed Vital Signs Vital Sign Reading Time Taken Comments Blood Pressure 130/84 05/06/2020 1:11 PM CHAIRMAN & CEO Pulse 79 05/06/2020 1:11 PM CHAIRMAN & CEO Temperature 37 ??C (98.6 ??F) 05/06/2020 1:01 PM CHAIRMAN & CEO Respiratory Rate 16 05/06/2020 1:01 PM CHAIRMAN & CEO Oxygen Saturation 91% 05/06/2020 1:11 PM CHAIRMAN & CEO Inhaled Oxygen Concentration - - Weight 71.4 kg (157 lb 6.4 oz) 05/06/2020 1:01 P M CHAIRMAN & CEO Height 182.9 cm (6' 0.01 ) 05/06/2020 1:01 PM CS T Body Mass Index 21.34 05/06/2020 1:01 PM CHAIRMAN & CEO documented in this encounter Ordered Prescriptions Prescription [...] histories in depth with patient and/or their customer relations representative. Review of Systems Constitutional: Positive for [...] Referral Reason: Specialty Services Required Referral Location: [facility] Number of Visits Requested: 1 [...] Casillas DO This note was dictated using [employer]mb[employer] voice recognition software. Variances in spelling and vocabulary are possible and errors are unintentional. RMAN & CEO documented in this encounter Miscellaneous Notes * Assessment & Plan Note - Violeta Casillas DO - 05/06/2020 11:37 PM CHAIRMAN & CEO Associated Problem(s): Recurrent major depressive disorder (HCC) Patient symptomatic and not sure if he actually takes prescribed meds or not. Consult ACO RMAN & CEO * Assessment & Plan Note - Violeta Casillas DO - 05/06/2020 11:33 PM CHAIRMAN & CEO Associated Problem(s): Frequent falls Refuses neuro or PT consult. I think he falls more from flexing his neck versus position changes, stumbling, or orthostasis. During the office visit that took at least 40 minutes, I spent over 50% of the time either counseling, educating, discussing plan of treatment, or answering questions today. RMAN & CEO RMAN & CEO * Assessment & Plan Note - Violeta Casillas DO - 05/06/2020 11:32 PM CHAIRMAN & CEO Associated Problem(s): Tremor, unspecified Refuses consult with neuro or anything that might cost him money. Trial Requip (ropinirole) 0.25mg tid. Consult ACO RMAN & CEO * Assessment & Plan Note - Violeta Casillas DO - 05/06/2020 11:30 PM CHAIRMAN & CEO Associated Problem(s): Cognitive impairment Unsure exact cause. Depression vs nutrition vs dehydration vs possible parkinsons?? Consult ACO He is recently less than 2 years ago. No family or friend support. Probable poor nutrition.Difficulty getting him to take meds as intended. RMAN & CEO * Assessment & Plan Note - Violeta Casillas DO - 05/06/2020 11:29 PM CHAIRMAN & CEO Associated Problem(s): Weight loss Possible improvement with Mirtazapine (if he is actually taking this med??) Consult ACO RMAN & CEO RMAN & CEO documented in this encounter Plan of Treatment [...] 05/06/2020 documented in this encounter Care Teams Parcel Contractor Relationship Specialty Start Date End Date Violeta Casillas DO PCP - General 09/29/16 09/15/21 documented as of this encounter
--- OUTSIDE RECORDS SUMMARY | 2024-07-09 07:13 | XMS_ITS | Encounter Summary ---
Author Organization [facility] Medical Group Address [address] [address] Care Team Providers Care Secondary Education Professor Name Role Phone Violeta Casillas DO Primary Care Provider + Encounter Details Date Type Department Care Team (Latest Contact Info) Description 08/15/2019 Orders Only [facility] [address] [place] [phone] Ruth Hankins LPN Pure hypercholesterolemia (Primary Dx); [...] file Legal Sex Male 3:40 AM PRODUCTION LINE WORKER Gender Identity Not on file Sexual Orientation Not on file documented as of this encounter Plan of Treatment Not on file documented as of this encounter Visit Diagnoses Diagnosis Pure hypercholesterolemia- Primary Hypertension, essential Unspecified essential hypertension documented in this encounter Care Teams Secondary Education Professor Relationship Specialty Start Date End Date Violeta Casillas DO PCP - General 09/29/16 09/15/21 documented as of this encounter
--- OUTSIDE RECORDS SUMMARY | 2024-07-09 07:13 | XMS_ITS | Encounter Summary ---
Author Organization [facility] Medical Group Address [address] [address] Care Team Providers Care Mine Car Mechanic Name Role Phone Violeta Casillas DO Primary Care Provider + Reason for Visit * Reason Comments Medicare Wellness Encounter Details Date Type Department Care Team (Late st Contact Info) Description 01/26/2020 10:00 AM CDT Office Visit [facility] [address] [place] [address] Violeta Casillas DO [address] [place] [address] Encounter for Medicare annual wellness exam (Primary [...] on file Legal Sex Male 3:40 AM SKATE HOP Gender Identity Not on file Sexual [...] Directive (Living Will) and/or Durable Power of Piano Teacher?: Yes - Please bring a copy to [...] file Gets together: Not on file Attends restoration service: Not on file Active member of [...] as PCP - General Primary Pharmacy/DME suppliers: [place] [address] [facility] [address] [facility] [address] Detection of Cognitive Impairment: Detect cognitive impairment [...] monitoring guidelines. Advanced Directive Durable Power of Piano Teacher: Yes Living Will: Yes Assessment / Plan: [...] 01/26/2020 documented in this encounter Care Teams Mine Car Mechanic Relationship Specialty Start Date End Date Violeta Casillas DO PCP - General 09/29/16 09/15/21 documented as of this encounter
--- OUTSIDE RECORDS SUMMARY | 2024-07-09 07:13 | XMS_ITS | Encounter Summary ---
Author Organization [facility] Address [address] [place] [address] Care Team Providers Care Sound Controller Name Role Phone Violeta Casillas Primary Care Provider + Reason for Visit * Reason Comments Fall Altered Mental Status Head Injury Encounter Details Date Type Department Care Team (Late st Contact Info) Description 12/13/2019 3:20 PM CDT - 12/13/2019 6:[address] [facility] Emergency Department [address] [place] [phone] [place] [address] [place] [id number] Fall, initial encounter (Primary Dx); Transient [...] on file Legal Sex Male 3:40 AM MARKETER Gender Identity Not on file Sexual Orientation [...] unspecified (HCC) - CHRONIC ATRIAL FIBRILLATION, UNSPECIFIED senior care (current) use of anticoagulants - ELECTRICAL MANAGER (CURRENT) USE OF ANTICOAGULANTS Long-term (current) use of anticoagulants documented in this encounter Discharge Instructions * Attachments The following attachments cannot be sent through Care Everywhere. * Concussion (AfterCare(R) Instructions(ER/ED)) (Bahraini) * Fall Due To Dizziness, Weakness, Or Loss Of Balance (B[place]i) * Altered Level of Consciousness (LOC) ([place]i) documented in this encounter Medications at Time [...] Behavior normal. Thought Content: Thought content normal. [facility] Course as of Dec 12 1745 [...] PM CDT) Glomerular Filtration Rate - non -Latvian >60 mL/min/1.7 3 m2 [facility] Comment: Interpretive Data Decrease in GFR ?? GFR (mL/min/1.73m2) ?? Significance. Normal to Mild ?Greater than 60 ? Normal, or near normal. Moderate ?15 - 60 ? Calculated GFR of less ?than 60 suggests chronic ?kidney disease,if found ?over a 3 month period. Severe ?Less than 15 ?Renal Failure. Current interpretive data was last revised on 2012. Glomerular Filtration Rate - -Latvian >60 mL/min/1.7 3 m2 [facility] Blood specimen (specimen) 12/13/2019 3:26 PM CDT 12/13/2019 3:29 PM CDT us Rey Romero DO LAB BLOOD ORDERABLES Final Re sult Performing Organization Address City/State/[facility] Co de Phone Number [facility] [address] [facility] Department [place] [address] * Cholesterol, LDL, direct (12/13/2019 3:26 PM CDT) LDL Cholesterol, Direct 54 <=129 mg/dL [facility] Comment: Interpretive Data Ages < [...] DO LAB BLOOD ORDERABLES Final Re sult [facility] [address] [facility] [place] [address] * Differential, auto (12/13/2019 3:26 PM CDT) Neutrophil abs 4.4 1.7 - 6.5 K/cumm [facility] Imm gran abs 0.0 0.0 - 0.1 K/cumm [facility] Lymphocyte abs 0.9 0.8 - 3.3 K/cumm [facility] Monocyte abs 0.4 0.2 - 0.8 K/cumm [facility] Eosinophil abs 0.2 0.0 - 0.5 K/cumm [facility] Basophil abs 0.0 0.0 - 0.1 K/cumm [facility] Neutrophil pct 74.7 % [facility] Comment: Interpretive Data Percent cell count reference ranges are not reported, since discordance with absolute values may lead to misinterpretation of CBC data. Current Interpretive Data was last revised on 2017. Imm gran pct 0.2 % [facility] Comment: Interpretive Data Percent cell count reference ranges are not reported, since discordance with absolute values may lead to misinterpretation of CBC data. Current Interpretive Data was last revised on 2017. Lymphocyte pct 14.9 % [facility] Comment: Interpretive Data Percent cell count reference ranges are not reported, since discordance with absolute values may lead to misinterpretation of CBC data. Current Interpretive Data was last revised on 2017. Monocyte pct 6.6 % [facility] Comment: Interpretive Data Percent cell count reference ranges are not reported, since discordance with absolute values may lead to misinterpretation of CBC data. Current Interpretive Data was last revised on 2017. Eosinophil pct 2.9 % [facility] Comment: Interpretive Data Percent cell count reference ranges are not reported, since discordance with absolute values may lead to misinterpretation of CBC data. Current Interpretive Data was last revised on 2017. Basophil pct 0.7 % [facility] Comment: Interpretive Data Percent cell count reference ranges are not reported, since discordance with absolute values may lead to misinterpretation of CBC data. Current Interpretive Data was last revised on 2017. Blood specimen (specimen) 12/13/2019 3:26 PM CDT 12/13/2019 3:29 PM CDT Reymorgan Romero DO LAB BLOOD ORDERABLES Final Re sult [facility] [address] [facility] [place] [address] * (ABNORMAL) Protime-INR (12/13/2019 3:26 PM CDT) PT 36.2(H) 9.2 - 13.0 sec [facility] INR 3.1(H) 0.9 - 1.1 [facility] Comment: Interpretive data Oral anticoagulant therapeutic ranges: Venous thromboembolism prophylaxis or treatment: 2.0-3.0 CARDIOLOGY Standard range: 2.0-3.0 High-intensity range: 2.5-3.5 Refer to indication-specific guidelines for appropriate target ranges for prosthetic heart valve replacement. Current interpretive data was last revised on 2019. Blood specimen (specimen) 12/13/2019 3:26 PM CDT 12/13/2019 3:29 PM CDT Reynick Romero DO LAB BLOOD ORDERABLES Final Re sult Performing Organization Address [facility] de Phone Number [facility] [address] [place] [address] * aPTT (12/13/2019 3:26 PM CDT) aPTT 37 25 - 37 sec [facility] Comment: Interpretive data Heparin therapeutic range: 60-94 seconds Range based on correlation with therapeutic heparin activity range of 0.3-0.7 units/ml. Current interpretive data was last revised on 2019. Blood specimen (specimen) 12/13/2019 3:26 PM CDT 12/13/2019 3:29 PM CDT Rey Romero LAB BLOOD ORDERABLES Final Re sult Performing Organization Address [facility] de Phone Number [address] [address] * Troponin T (12/13/2019 3:26 PM CDT) Troponin T <0.01 0.00 - 0.01 ng/mL [facility] Comment: Interpretive Data Reference ranges for children <18 years of age have not been established. - > or = 18 years: Serial determinations are recommended for the diagnosis of myocardial infarction. ??Temporal rise and fall are consistent with myocardial infarction when at least one value is above the 99th percentile upper reference limit for troponin assay. ??Journal of the [place] College of Cardiology 2012;60:1581-98. Current Interpretive Data Last Revised Date: 2018. Blood specimen (specimen) 12/13/2019 3:26 PM CDT 12/13/2019 3:29 PM CDT Rey Romero DO LAB BLOOD ORDERABLES Final Re sult Performing Organization Address [facility] Co de Phone Number [address] [address] * Comprehensive metabolic panel (12/13/2019 3:26 PM CDT) Sodium 137 135 - 145 mmol/L [facility] Potassium, pl 4.1 3.3 - 4.9 mmol/L [facility] Chloride 105 97 - 110 mmol/L [facility] CO2 23 22 - 32 mmol/L [facility] Anion gap 9 2 - 15 mmol/L [facility] BUN 22 8 - 25 mg/dL [facility] Creatinine 1.13 0.80 - 1.30 mg/dL [facility] Glucose 117 70 - 199 mg/dL [facility] Comment: Interpretive Data Fasting glucose >/= 126 [...] 2017. Calcium 9.5 8.5 - 10.3 mg/dL [facility] Bilirubin, total 0.7 0.1 - 1.2 mg/dL [facility] Protein, pl 6.7 6.5 - 8.5 g/dL [facility] Albumin 3.9 3.5 - 5.2 g/dL [facility] Alk phos 79 40 - 130 Units/L [facility] ALT 16 7 - 55 Units/L [facility] AST 23 10 - 50 Units/L [facility] Blood specimen (specimen) 12/13/2019 3:26 PM CDT 12/13/2019 3:29 PM CDT us Rey Romero DO LAB BLOOD ORDERABLES Final Re sult [facility] [address] [facility] Department [place] [address] * CBC with auto differential (12/13/2019 3:26 PM CDT) Pathologist [facility] WBC 5.9 3.8 - 9.9 K/cumm [facility] Hgb 15.1 13.0 - 17.5 g/dL [facility] Hct 44.3 38.9 - 50.3 % [facility] Plt 179 150 - 400 K/cumm [facility] MPV 10.0 9.1 - 12.3 fL [facility] RBC 4.81 4.30 - 5.80 M/cumm [facility] MCV 92.1 81.3 - 96.4 fL [facility] MCH 31.4 27.1 - 33.3 pg [facility] MCHC 34.1 32.3 - 35.7 g/dL [facility] RDW CV 12.7 11.1 - 14.9 % [facility] RDW SD 43.0 35.7 - 48.1 fL [facility] NRBC abs 0.00 0.00 - 0.01 K/cumm [facility] Blood specimen (specimen) 12/13/2019 3:26 PM CDT 12/13/2019 3:29 PM CDT Reymorgan Romero DO LAB BLOOD ORDERABLES Final Re sult Performing Organization Address City/[facility] Co de Phone Number [facility] [address] [facility] Department [place] [address] * ECG 12 lead (12/13/2019 3:24 PM CDT) 12/13/2019 3:24 PM CDT Narrative [facility] [employer] - 12/13/2019 4:32 PM CDT Vent Rate: 88 bpm RR Interval: 681 msec TX Interval: 149 msec QRS Duration: 134 msec QT Interval: 357 msec QTC Interval: 402 msec P-R-T [place]: 84 - -60 - 55 degrees SINUS RHYTHM INDETERMINATE AXIS RIGHT BUNDLE BRANCH BLOCK POSSIBLE SEPTAL MYOCARDIAL INFARCTION , PROBABLY OLD ABNORMAL ECG Electronically Signed By: Hunter Shah MD, [facility] [employer] NLashay HDFroddy DO ECG ORDERABLES Final Result Performing Organization Address [facility] Co de Phone Number [facility] [employer] [facility] documented in this encounter Visit Diagnoses [...] 12/13/2019 documented in this encounter Care Teams Sound Controller Relationship Specialty Start Date End Date Violeta Casillas DO PCP - General 09/29/16 09/15/21 documented as of this encounter
--- OUTSIDE RECORDS SUMMARY | 2024-07-09 07:14 | XMS_ITS | Encounter Summary ---
Author Organization [facility] Medical Group Address [address] [facility] [address] [place] [address] Care Team Providers Care Lathe Winder Name Role Phone Violeta Casillas DO Primary Care Provider + Encounter Details Date Type Department Care Team (Late st Contact Info) Description 08/08/2019 8:45 AM COMMERCIAL INTELLIGENCE MANAGER Lab Medical [facility] [address] [facility] Atrial fibrillation, unspecified type (CMS/HCC) Social History Tobacco Use Types Packs/Day Years Used Date Smoking Tobacco: Former Smokeless Tobacco: Former Alcohol Use Standard Drinks/Week Comments Yes 0 (1 standard drink = 0.6 oz pur e alcohol) PHQ-2 Answer Date Recorded PHQ-2 Score 6 07/28/2019 Sex and Gender Information Value Date Recorded Sex Assigned at Not on file Legal Sex Male 3:40 AM COMMERCIAL INTELLIGENCE MANAGER Gender Identity Not on file Sexual Orientation Not on file documented as of this encounter Progress Notes * Violeta Casillas DO - 08/08/2019 8:45 AM CST Slightly out of range but not worth making any adjustments. I would recheck in 1 week. ERCIAL INTELLIGENCE MANAGER documented in this encounter Plan of Treatment Not on file documented as of this encounter Procedures Procedure Name Priority Date/Time Associated Diagnosis Comments POCT INR Routine 08/08/2019 8:45 AM COMMERCIAL INTELLIGENCE MANAGER Atrial fibrillation, unspecified type (CMS/HCC) documented in this encounter Results * POCT INR (08/08/2019 8:45 AM COMMERCIAL INTELLIGENCE MANAGER) INR, POC 1.9 Blood specimen (specimen) (Blood, Venous) 08/08/2019 8:45 AM COMMERCIAL INTELLIGENCE MANAGER Violeta Casillas DO POINT OF CARE TEST ORDER ANDREZ Final Result documented in this encounter Visit Diagnoses Diagnosis Atrial fibrillation, unspecified type (HCC) documented in this encounter Care Teams Lathe Winder Relationship Specialty Start Date End Date Violeta Casillas DO PCP - General 09/29/16 09/15/21 documented as of this encounter
--- OUTSIDE RECORDS SUMMARY | 2024-07-09 07:14 | XMS_ITS | Encounter Summary ---
Author Organization [facility] Medical Group Address [address] [address] Care Team Providers Care Name Role Phone Violeta Casillas DO Primary Care Provider + Encounter Details Date Type Department Care Team (Late st Contact Info) Description 08/08/2019 Telephone [facility] [address] [place] [phone] Violeta Casillas DO [address] [place] [address] Social History Tobacco Use Types Packs/Day Years Used Date Smoking Tobacco: Former Smokeless Tobacco: Former Alcohol Use Standard Drinks/Week Comments Yes 0 (1 standard drink = 0.6 oz pur e alcohol) PHQ-2 Answer Date Recorded PHQ-2 Score 6 07/28/2019 Sex and Gender Information Value Date Recorded Sex Assigned at Not on file Legal Sex Male 3:40 AM JUNIOR PROJECT COORDINATOR Gender Identity Not on file Sexual [...] - 08/08/2019 2:38 PM CST Pt notified OR PROJECT COORDINATOR * Telephone Encounter - Violeta Casillas DO - 08/08/2019 10:47 AM JUNIOR PROJECT COORDINATOR Ninety day supply with 3 refills sent to local pharmacy. OR PROJECT COORDINATOR * Telephone Encounter - Kendra Dickerson - 08/08/2019 9:35 AM CST Pt stopped by office and wanted to let you know the last medicine prescribed for him is working well but pt couldn't tell me what it was OR PROJECT COORDINATOR documented in this encounter Plan of Treatment [...] documented as of this encounter Care Teams Relationship Specialty Start Date End Date Violeta Casillas DO PCP - General 09/29/16 09/15/21 documented as of this encounter
--- OUTSIDE RECORDS SUMMARY | 2024-07-09 07:14 | XMS_ITS | Encounter Summary ---
Author Organization [facility] Medical Group Address [address] [address] Care Team Providers Care Automotive Refinisher Name Role Phone Violeta Casillas DO Primary Care Provider + Encounter Details Date Type Department Care Team (Late st Contact Info) Description 08/15/2019 Telephone [facility] [address] [place] [phone] Violeta Casillas DO [address] [place] [address] Social History Tobacco Use Types Packs/Day Years Used Date Smoking Tobacco: Former Smokeless Tobacco: Former Alcohol Use Standard Drinks/Week Comments Yes 0 (1 standard drink = 0.6 oz pur e alcohol) PHQ-2 Answer Date Recorded PHQ-2 Score 6 07/28/2019 Sex and Gender Information Value Date Recorded Sex Assigned at Not on file Legal Sex Male 3:40 AM DIRECTOR OF GIFT PLANNING Gender Identity Not on file Sexual Orientation [...] Casillas DO sent at 08/01/2019 3:55 PM DIRECTOR OF GIFT PLANNING ----- In general labs look okay however the blood sugar was elevated to 111 and normal would be less [id number] when fasting. What I would recommend is that when the Mevacor runs out he switch that to rosuvastatin so that way he does not have to take 2 tablets at a time, plus the rosuvastatin is far superior and carbon lamp cleaner than that medication. If he is okay with that please send in 10 mg tablet nightly number 90 with 3 refills. Please repeat labs prior to next office visit. CTOR OF GIFT PLANNING documented in this encounter Plan of Treatment Not on file documented as of this encounter Visit Diagnoses Not on filedocumented in this encounter Discontinued Medications Medication Sig Discontinue Reason Start Date End Da te lovastatin (MEVACOR) 20 mg tabletIndications:Pure hypercholesterolemia TAKE 2 TABLETS BY MOUTH NIGHTLY Formulary change 05/12/2019 08/15/2019 documented as of this encounter Care Teams Automotive Refinisher Relationship Specialty Start Date End Date Violeta Casillas DO PCP - General 09/29/16 09/15/21 documented as of this encounter
--- OUTSIDE RECORDS SUMMARY | 2024-07-09 07:14 | XMS_ITS | Encounter Summary ---
Author Organization [facility] Facility Care Team Providers Care Precipitate Washer Name Role Phone Violeta Casillas DO Primary [...] on file Legal Sex Male 3:40 AM GEOSPATIAL EXTRACTOR ANALYSIS Gender Identity Not on file Sexual Orientation Not on file documented as of this encounter Plan of Treatment Not on file documented as of this encounter Visit Diagnoses Not on filedocumented in this encounter Care Teams Precipitate Washer Relationship Specialty Start Date End Date Violeta Casillas DO PCP - General 09/29/16 09/15/21 documented as of this encounter
--- OUTSIDE RECORDS SUMMARY | 2024-07-09 07:14 | XMS_ITS | Encounter Summary ---
Author Organization [facility] Healthcare Address [address] [place] [address] Care Team Providers Care Production Specialist Name Role Phone Violeta Casillas DO Primary Care Provider + Encounter Details Date Type Department Care Team (Late st Contact Info) Description 07/29/2019 10:00 AM COMMUNITY SUPPORT ASSOCIATE Lab [address] [id number] Pure hypercholesterolemia; Hypertension, essential Social History Tobacco Use Types Packs/Day Years Used Date Smoking Tobacco: Former Smokeless Tobacco: Former Alcohol Use Standard Drinks/Week Comments Yes 0 (1 standard drink = 0.6 oz pur e alcohol) PHQ-2 Answer Date Recorded PHQ-2 Score 6 07/28/2019 Sex and Gender Information Value Date Recorded Sex Assigned at Not on file Legal Sex Male 3:40 AM COMMUNITY SUPPORT ASSOCIATE Gender Identity Not on file Sexual Orientation Not on file documented as of this encounter Progress Notes * Violeta Casillas DO - 07/29/2019 10:00 AM CST In general labs look okay however the blood sugar was elevated to 111 and normal would be less [id number] when fasting. What I would recommend is that when the Mevacor runs out he switch that to rosuvastatin so that way he does not have to take 2 tablets at a time, plus the rosuvastatin is far superior and condenser cleaner than that medication. If he is okay with that please send in 10 mg tablet nightly number 90 with 3 refills. Please repeat labs prior to next office visit. UNITY SUPPORT ASSOCIATE documented in this encounter Plan of Treatment Not on file documented as of this encounter Procedures Procedure Name Priority Date/Time Associated Diagnosis Comments GLUCOSE, RANDOM (OUTREACH) Routine 07/29/2019 8:20 AM COMMUNITY SUPPORT ASSOCIATE Hypertension, essential EGFR Routine 07/29/2019 8:20 AM COMMUNITY SUPPORT ASSOCIATE Hypertension, essential COMPREHENSIVE METABOLIC PANEL WITHOUT GLUCOSE (OUTREACH) Routine 07/29/2019 8:20 AM COMMUNITY SUPPORT ASSOCIATE Hypertension, essential COMPREHENSIVE METABOLIC PANEL (OUTREACH) Routine 07/29/2019 8:20 AM COMMUNITY SUPPORT ASSOCIATE Hypertension, essential LIPID PANEL Routine 07/29/2019 8:20 AM COMMUNITY SUPPORT ASSOCIATE Pure hypercholesterolemia documented in this encounter Results * eGFR (07/29/2019 8:20 AM COMMUNITY SUPPORT ASSOCIATE) Glomerular Filtration Rate - non -Guamanian >60 mL/min/1.7 3 m2 [facility] Comment: Interpretive Data Decrease in GFR ?? GFR (mL/min/1.73m2) ?? Significance. Normal to Mild ?Greater than 60 ? Normal, or near normal. Moderate ?15 - 60 ? Calculated GFR of less ?than 60 suggests chronic ?kidney disease,if found ?over a 3 month period. Severe ?Less than 15 ?Renal Failure. Current interpretive data was last revised on 2012. Glomerular Filtration Rate - -Guamanian >60 mL/min/1.7 3 m2 [facility] Blood specimen (specimen) 07/29/2019 8:20 AM COMMUNITY SUPPORT ASSOCIATE 07/29/2019 10:18 AM COMMUNITY SUPPORT ASSOCIATE Violeta Casillas DO LAB BLOOD ORDERABLES Fin al Result Performing Organization Address [facility] de Phone Number [facility] [address] [place] [address] * Glucose, random (Outreach) (07/29/2019 8:20 AM COMMUNITY SUPPORT ASSOCIATE) Glucose 111 70 - 199 mg/dL [facility] Comment: Interpretive Data Fasting glucose [...] 2017. Blood specimen (specimen) 07/29/2019 8:20 AM COMMUNITY SUPPORT ASSOCIATE 07/29/2019 10:18 AM COMMUNITY SUPPORT ASSOCIATE Narrative [facility] - 07/29/2019 11:01 AM COMMUNITY SUPPORT ASSOCIATE Fasting >8 Violeta Casillas DO LAB BLOOD ORDERABLES Fin al Result Performing Organization Address [facility] Co de Phone Number [facility] [address] [place] [address] * Comprehensive metabolic panel, without glucose (Outreach) (07/29/2019 8:20 AM COMMUNITY SUPPORT ASSOCIATE) Sodium 135 135 - 145 mmol/L [facility] Potassium, pl 4.4 3.3 - 4.9 mmol/L [facility] Chloride 99 97 - 110 mmol/L [facility] CO2 27 22 - 32 mmol/L [facility] Anion gap 9 2 - 15 mmol/L [facility] BUN 14 8 - 25 mg/dL [facility] Creatinine 1.03 0.80 - 1.30 mg/dL [facility] Calcium 9.0 8.5 - 10.3 mg/dL [facility] Protein, pl 7.0 6.5 - 8.5 g/dL [facility] Albumin 4.2 3.5 - 5.2 g/dL [facility] Bilirubin, total 0.6 0.1 - 1.2 mg/dL [facility] Alk phos 96 40 - 130 Units/L [facility] AST 20 10 - 50 Units/L [facility] ALT 14 7 - 55 Units/L [facility] Blood specimen (specimen) 07/29/2019 8:20 AM COMMUNITY SUPPORT ASSOCIATE 07/29/2019 10:18 AM COMMUNITY SUPPORT ASSOCIATE Narrative [facility] - 07/29/2019 10:47 AM COMMUNITY SUPPORT ASSOCIATE Fasting >8 us Violeta Casillas DO LAB BLOOD ORDERABLES Fin al Result Performing Organization Address City/State/[facility] Co de Phone Number [facility] [address] [facility] Department [place] [address] * Lipid panel (07/29/2019 8:20 AM COMMUNITY SUPPORT ASSOCIATE) Cholesterol 123 30 - 199 mg/dL [facility] Comment: Interpretive Data Ages < [...] revised on 2018. Triglycerides 83 <=149 mg/dL [facility] Comment: Interpretive Data Ages < [...] revised on 2018. HDL 50 >=40 mg/dL [facility] Comment: Interpretive Data Ages < [...] on 2018. LDL, calculated 56 <=129 mg/dL [facility] Comment: Interpretive Data Ages < [...] revised on 2018. Non-HDL Cholesterol 73 mg/dL [facility] Comment: Interpretive Data Ages < [...] last revised on 2018. Chol/HDL ratio 2 [facility] Blood specimen (specimen) 07/29/2019 8:20 AM COMMUNITY SUPPORT ASSOCIATE 07/29/2019 10:18 AM COMMUNITY SUPPORT ASSOCIATE us Violeta Casillas DO LAB BLOOD ORDERABLES Fin al Result Performing Organization Address City/State/[facility] Phone Number [facility] [address] [facility] Department [place] [address] documented in this encounter Visit Diagnoses Diagnosis Pure hypercholesterolemia Hypertension, essential Unspecified essential hypertension documented in this encounter Care Teams Production Specialist Relationship Specialty Start Date End Date Violeta Casillas DO PCP - General 09/29/16 09/15/21 documented as of this encounter
--- OUTSIDE RECORDS SUMMARY | 2024-07-09 07:15 | XMS_ITS | Encounter Summary ---
Author Organization [facility] Medical Group Address [address] [address] Care Team Providers Care Pharmacy District Manager Name Role Phone Violeta Casillas DO Primary Care Provider + Encounter Details Date Type Department Care Team (Late st Contact Info) Description 07/29/2019 8:15 AM ACTIONSCRIPT DEVELOPER Lab [facility] [address] [facility] Hypertension, essential (Primary Dx) Social History Tobacco Use Types Packs/Day Years Used Date Smoking Tobacco: Former Smokeless Tobacco: Former Alcohol Use Standard Drinks/Week Comments Yes 0 (1 standard drink = 0.6 oz pur e alcohol) PHQ-2 Answer Date Recorded PHQ-2 Score 6 07/28/2019 Sex and Gender Information Value Date Recorded Sex Assigned at Not on file Legal Sex Male 3:40 AM ACTIONSCRIPT DEVELOPER Gender Identity Not on file Sexual Orientation Not on file documented as of this encounter Plan of Treatment Not on file documented as of this encounter Visit Diagnoses Diagnosis Hypertension, essential- Primary Unspecified essential hypertension documented in this encounter Care Teams Pharmacy District Manager Relationship Specialty Start Date End Date Violeta Casillas DO PCP - General 09/29/16 09/15/21 documented as of this encounter
--- OUTSIDE RECORDS SUMMARY | 2024-07-09 07:15 | XMS_ITS | Encounter Summary ---
Author Organization [facility] Facility Care Team Providers Care Data Power Consultant Name Role Phone Violeta Casillas DO [...] on file Legal Sex Male 3:40 AM LEAF STAMPER Gender Identity Not on file Sexual Orientation Not on file documented as of this encounter Plan of Treatment Not on file documented as of this encounter Visit Diagnoses Not on filedocumented in this encounter Care Teams Data Power Consultant Relationship Specialty Start Date End Date Violeta Casillas DO PCP - General 09/29/16 09/15/21 documented as of this encounter
--- OUTSIDE RECORDS SUMMARY | 2024-07-09 07:16 | XMS_ITS | Encounter Summary ---
Author Organization [facility] Medical Group Address [address] [address] Care Team Providers Care Air Liaison And Special Staff Name Role Phone Violeta Casillas DO Primary Care Provider + Encounter Details Date Type Department Care Team (Late st Contact Info) Description 07/17/2019 Anticoagulation Visit [facility] [address] [place] [phone] Violeta Casillas DO [address] [place] [address] Social History Tobacco Use Types Packs/Day Years Used Date Smoking Tobacco: Former Smokeless Tobacco: Former Alcohol Use Standard Drinks/Week Comments Yes 0 (1 standard drink = 0.6 oz pur e alcohol) PHQ-2 Answer Date Recorded PHQ-2 Score 0 02/22/2019 Sex and Gender Information Value Date Recorded Sex Assigned at Not on file Legal Sex Male 3:40 AM MEMS ENGINEER Gender Identity Not on file Sexual Orientation Not on file documented as of this encounter Plan of Treatment Not on file documented as of this encounter Visit Diagnoses Not on filedocumented in this encounter Care Teams Air Liaison And Special Staff Relationship Specialty Start Date End Date Violeta Casillas DO PCP - General 09/29/16 09/15/21 documented as of this encounter
--- OUTSIDE RECORDS SUMMARY | 2024-07-09 07:16 | XMS_ITS | Encounter Summary ---
Author Organization [facility] Medical Group Address [address] [address] Care Team Providers Care Scientific Recruiter Name Role Phone Violeta Casillas DO Primary Care Provider + Reason for Visit * Reason Comments Follow-up Encounter Details Date Type Department Care Team (Latest Contact Info) Description 07/28/2019 10:15 AM GYNECOLOGY TEACHER Office Visit [facility] [address] [place] [address] Violeta Casillas DO [address] [place] [address] Hypertension, essential (Primary Dx); Benign prostatic hyperplasia [...] on file Legal Sex Male 3:40 AM GYNECOLOGY TEACHER Gender Identity Not on file Sexual Orientation Not on file documented as of this encounter Last Filed Vital Signs Vital Sign Reading Time Taken Comments Blood Pressure 148/82 07/28/2019 9:51 AM GYNECOLOGY TEACHER Pulse 70 07/28/2019 9:51 AM GYNECOLOGY TEACHER Temperature 36.9 ??C (98.5 ??F) 07/28/2019 9:51 AM CS T Respiratory Rate 18 07/28/2019 9:51 AM GYNECOLOGY TEACHER Oxygen Saturation 95% 07/28/2019 9:51 AM GYNECOLOGY TEACHER Inhaled Oxygen Concentration - - Weight 69.9 kg (154 lb 3.2 oz) 07/28/2019 9:51 A M GYNECOLOGY TEACHER Height 185.4 cm (6' 0.99 ) 07/28/2019 9:51 AM CS T Body Mass Index 20.35 07/28/2019 9:51 AM GYNECOLOGY TEACHER documented in this encounter Ordered Prescriptions Prescription [...] histories in depth with patient and/or their client care representative. Review of Systems Constitutional: Negative for [...] this visit. This note was dictated using hike voice recognition software. Variances in spelling and vocabulary are possible and errors are unintentional. COLOGY TEACHER documented in this encounter Miscellaneous Notes * Assessment & Plan Note - Violeta Casillas DO - 07/28/2019 11:20 PM GYNECOLOGY TEACHER Associated Problem(s): Pure hypercholesterolemia Get updated labs soon. COLOGY TEACHER * Assessment & Plan Note - Violeta Casillas DO - 07/28/2019 11:20 PM GYNECOLOGY TEACHER Associated Problem(s): Chronic rhinitis Start Flonase (fluticasone). Demonstrated use. COLOGY TEACHER * Assessment & Plan Note - Violeta Casillas DO - 07/28/2019 11:16 PM GYNECOLOGY TEACHER Associated Problem(s): Prediabetes Get new labs COLOGY TEACHER * Assessment & Plan Note - Violeta Casillas DO - 07/28/2019 11:16 PM GYNECOLOGY TEACHER Associated Problem(s): Benign prostatic hyperplasia with urinary hesitancy Start doxazosin (Cardura). Patient opted out of getting PSA testing at this time. COLOGY TEACHER * Assessment & Plan Note - Violeta Casillas DO - 07/28/2019 11:15 PM GYNECOLOGY TEACHER Associated Problem(s): Hypertension, essential New diagnosis. Start doxazosin (Cardura) for combined benefit of HTN and BPH. Call back with updatein 2-3 weeks and blood pressure readings if possible. COLOGY TEACHER documented in this encounter Plan of Treatment Not on file documented as of this encounter Visit Diagnoses Diagnosis Hypertension, essential- Primary Unspecified essential hypertension Benign prostatic hyperplasia with urinary hesitancy Prediabetes Other abnormal glucose Chronic rhinitis Pure hypercholesterolemia documented in this encounter Care Teams Scientific Recruiter Relationship Specialty Start Date End Date Violeta Casillas DO PCP - General 09/29/16 09/15/21 documented as of this encounter
--- OUTSIDE RECORDS SUMMARY | 2024-07-09 07:17 | XMS_ITS | Encounter Summary ---
Author Organization [facility] Medical Group Address [address] [facility] [address] [place] [address] Care Team Providers Care Strategic Planning Specialist Name Role Phone Violeta Casillas DO Primary Care Provider + Encounter Details Date Type Department Care Team (Late st Contact Info) Description 07/14/2019 9:00 AM MELTER ASSISTANT Lab Medical [facility] [address] [place] [address] Atrial fibrillation, unspecified type (CMS/HCC) Social History Tobacco Use Types Packs/Day Years Used Date Smoking Tobacco: Former Smokeless Tobacco: Former Alcohol Use Standard Drinks/Week Comments Yes 0 (1 standard drink = 0.6 oz pur e alcohol) PHQ-2 Answer Date Recorded PHQ-2 Score 0 02/22/2019 Sex and Gender Information Value Date Recorded Sex Assigned at Not on file Legal Sex Male 3:40 AM MELTER ASSISTANT Gender Identity Not on file Sexual Orientation Not on file documented as of this encounter Plan of Treatment Not on file documented as of this encounter Procedures Procedure Name Priority Date/Time Associated Diagnosis Comments POCT INR Routine 07/14/2019 9:00 AM MELTER ASSISTANT Atrial fibrillation, unspecified type (CMS/HCC) documented in this encounter Results * POCT INR (07/14/2019 9:00 AM MELTER ASSISTANT) INR, POC 2.1 Blood specimen (specimen) (Blood, Venous) 07/14/2019 9:00 AM MELTER ASSISTANT Violeta Casillas DO POINT OF CARE TEST ORDER ANDREZ Final Result documented in this encounter Visit Diagnoses Diagnosis Atrial fibrillation, unspecified type (HCC) documented in this encounter Care Teams Strategic Planning Specialist Relationship Specialty Start Date End Date Violeta Casillas DO PCP - General 09/29/16 09/15/21 documented as of this encounter
--- OUTSIDE RECORDS SUMMARY | 2024-07-09 07:17 | XMS_ITS | Encounter Summary ---
Author Organization [facility] Medical Group Address [address] [facility] [address] [place] [address] Care Team Providers Care Chainstitch Sewing Machine Operator Name Role Phone Violeta Casillas DO Primary Care Provider + Reason for Visit * Reason Onset Date Comments Anticoagulation 07/04/2019 Encounter Details Date Type Department Care Team (Late st Contact Info) Description 07/04/2019 Telephone Medical [facility] [address] [place] [address] Ruth Hankins LPN Anticoagulation Social History Tobacco Use Types Packs/Day Years Used Date Smoking Tobacco: Former Smokeless Tobacco: Former Alcohol Use Standard Drinks/Week Comments Yes 0 (1 standard drink = 0.6 oz pur e alcohol) PHQ-2 Answer Date Recorded PHQ-2 Score 0 02/22/2019 Sex and Gender Information Value Date Recorded Sex Assigned at Not on file Legal Sex Male 3:40 AM STEEL RULE DIE MAKER APPRENTICE Gender Identity Not on file Sexual Orientation Not on file documented as of this encounter Miscellaneous Notes * Telephone Encounter - Ruth Farmer LPN - 07/04/2019 1:56 PM CST INR 1.3 on this date, patient alternates 7-[address] Casillas, patient to take an extra 2 mgtoday and recheck in one week. Spoke to patient, he is aware. L RULE DIE MAKER APPRENTICE documented in this encounter Plan of Treatment Not on file documented as of this encounter Visit Diagnoses Not on filedocumented in this encounter Care Teams Chainstitch Sewing Machine Operator Relationship Specialty Start Date End Date Violeta Casillas DO PCP - General 09/29/16 09/15/21 documented as of this encounter
--- OUTSIDE RECORDS SUMMARY | 2024-07-09 07:17 | XMS_ITS | Encounter Summary ---
Author Organization [facility] Facility Care Team Providers Care Endless Steamer Tender Name Role Phone Violeta Casillas DO [...] on file Legal Sex Male 3:40 AM SCHOOL CHILD CARE ATTENDANT Gender Identity Not on file Sexual Orientation Not on file documented as of this encounter Plan of Treatment Not on file documented as of this encounter Visit Diagnoses Not on filedocumented in this encounter Care Teams Endless Steamer Tender Relationship Specialty Start Date End Date Violeta Casillas DO PCP - General 09/29/16 09/15/21 documented as of this encounter
--- OUTSIDE RECORDS SUMMARY | 2024-07-09 07:18 | XMS_ITS | Encounter Summary ---
Author Organization [facility] Medical [facility] Address [address] [facility] [address] [place] [address] Care Team Providers Care City Dispatch Supervisor Name Role Phone Violeta Casillas DO Primary Care Provider + Reason for Visit * Reason Onset Date Comments Anticoagulation 06/03/2019 Encounter Details Date Type Department Care Team (Late st Contact Info) Description 06/03/2019 Telephone Medical [facility] [address] [place] [address] Ruth Hankins LPN Anticoagulation Social History Tobacco Use Types Packs/Day Years Used Date Smoking Tobacco: Former Smokeless Tobacco: Former Alcohol Use Standard Drinks/Week Comments Yes 0 (1 standard drink = 0.6 oz pur e alcohol) PHQ-2 Answer Date Recorded PHQ-2 Score 0 02/22/2019 Sex and Gender Information Value Date Recorded Sex Assigned at Not on file Legal Sex Male 3:40 AM RADAR OPERATOR Gender Identity Not on file Sexual Orientation Not on file documented as of this encounter Miscellaneous Notes * Telephone Encounter - Ruth Farmer LPN - 06/03/2019 10:07 AM CST INR 2.5 on this date, patient alternates 7-[address] Casillas, continue current dosage and recheck in one month. Patient aware. R OPERATOR documented in this encounter Plan of Treatment Not on file documented as of this encounter Visit Diagnoses Not on filedocumented in this encounter Care Teams City Dispatch Supervisor Relationship Specialty Start Date End Date Violeta Casillas DO PCP - General 09/29/16 09/15/21 documented as of this encounter
--- OUTSIDE RECORDS SUMMARY | 2024-07-09 07:18 | XMS_ITS | Encounter Summary ---
Author Organization [facility] Facility Care Team Providers Care Lens Polisher Name Role Phone Violeta Casillas DO Primary [...] on file Legal Sex Male 3:40 AM CCU NURSE Gender Identity Not on file Sexual Orientation Not on file documented as of this encounter Plan of Treatment Not on file documented as of this encounter Visit Diagnoses Not on filedocumented in this encounter Care Teams Lens Polisher Relationship Specialty Start Date End Date Violeta Casillas DO PCP - General 09/29/16 09/15/21 documented as of this encounter
--- OUTSIDE RECORDS SUMMARY | 2024-07-09 07:18 | XMS_ITS | Encounter Summary ---
Author Organization [facility] Facility Care Team Providers Care Social Media Job Titles Name Role Phone Violeta Casillas DO Primary [...] file Legal Sex Male 3:40 AM ELEMENTARY SCHOOL TEACHER'S AIDE Gender Identity Not on file Sexual Orientation Not on file documented as of this encounter Plan of Treatment Not on file documented as of this encounter Visit Diagnoses Not on filedocumented in this encounter Care Teams Social Media Job Titles Relationship Specialty Start Date End Date Violeta Casillas DO PCP - General 09/29/16 09/15/21 documented as of this encounter
--- OUTSIDE RECORDS SUMMARY | 2024-07-09 07:18 | XMS_ITS | Encounter Summary ---
Author Organization [facility] Medical Group Address [address] [facility] [address] [place] [address] Care Team Providers Care Switch Operator Name Role Phone Violeta Casillas DO Primary Care Provider + Encounter Details Date Type Department Care Team (Late st Contact Info) Description 06/03/2019 8:30 AM CLINICAL INFORMATION SYSTEMS DIRECTOR Lab Medical [facility] [address] [place] [address] Atrial fibrillation, unspecified type (CMS/HCC) Social History Tobacco Use Types Packs/Day Years Used Date Smoking Tobacco: Former Smokeless Tobacco: Former Alcohol Use Standard Drinks/Week Comments Yes 0 (1 standard drink = 0.6 oz pur e alcohol) PHQ-2 Answer Date Recorded PHQ-2 Score 0 02/22/2019 Sex and Gender Information Value Date Recorded Sex Assigned at Not on file Legal Sex Male 3:40 AM CLINICAL INFORMATION SYSTEMS DIRECTOR Gender Identity Not on file Sexual Orientation Not on file documented as of this encounter Plan of Treatment Not on file documented as of this encounter Procedures Procedure Name Priority Date/Time Associated Diagnosis Comments POCT INR Routine 06/03/2019 8:25 AM CLINICAL INFORMATION SYSTEMS DIRECTOR Atrial fibrillation, unspecified type (CMS/HCC) documented in this encounter Results * POCT INR (06/03/2019 8:25 AM CLINICAL INFORMATION SYSTEMS DIRECTOR) INR, POC 2.5 Blood specimen (specimen) (Blood, Venous) 06/03/2019 8:25 AM CLINICAL INFORMATION SYSTEMS DIRECTOR Violeta Casillas DO POINT OF CARE TEST ORDER ANDREZ Final Result documented in this encounter Visit Diagnoses Diagnosis Atrial fibrillation, unspecified type (HCC) documented in this encounter Care Teams Switch Operator Relationship Specialty Start Date End Date Violeta Casillas DO PCP - General 09/29/16 09/15/21 documented as of this encounter
--- OUTSIDE RECORDS SUMMARY | 2024-07-09 07:18 | XMS_ITS | Encounter Summary ---
Author Organization [facility] Address [address] [facility] [address] [place] [address] Care Team Providers Care Stopper Setter Name Role Phone Violeta Casillas DO Primary Care Provider + Encounter Details Date Type Department Care Team (Late st Contact Info) Description 07/04/2019 9:00 AM FILLING STATION EQUIPMENT MECHANIC Lab Medical [facility] [address] [facility] Atrial fibrillation, unspecified type (CMS/HCC) Social History Tobacco Use Types Packs/Day Years Used Date Smoking Tobacco: Former Smokeless Tobacco: Former Alcohol Use Standard Drinks/Week Comments Yes 0 (1 standard drink = 0.6 oz pur e alcohol) PHQ-2 Answer Date Recorded PHQ-2 Score 0 02/22/2019 Sex and Gender Information Value Date Recorded Sex Assigned at Not on file Legal Sex Male 3:40 AM FILLING STATION EQUIPMENT MECHANIC Gender Identity Not on file Sexual Orientation Not on file documented as of this encounter Plan of Treatment Not on file documented as of this encounter Procedures Procedure Name Priority Date/Time Associated Diagnosis Comments POCT INR Routine 07/04/2019 8:55 AM FILLING STATION EQUIPMENT MECHANIC Atrial fibrillation, unspecified type (CMS/HCC) documented in this encounter Results * POCT INR (07/04/2019 8:55 AM FILLING STATION EQUIPMENT MECHANIC) INR, POC 1.3 Blood specimen (specimen) (Blood, Venous) 07/04/2019 8:55 AM FILLING STATION EQUIPMENT MECHANIC Violeta Casillas DO POINT OF CARE TEST ORDER ANDREZ Final Result documented in this encounter Visit Diagnoses Diagnosis Atrial fibrillation, unspecified type (HCC) documented in this encounter Care Teams Stopper Setter Relationship Specialty Start Date End Date Violeta Casillas DO PCP - General 09/29/16 09/15/21 documented as of this encounter
--- OUTSIDE RECORDS SUMMARY | 2024-07-09 07:19 | XMS_ITS | Encounter Summary ---
Author Organization [facility] Facility Care Team Providers Care Ticket Writer Name Role Phone Violeta Casillas DO Primary [...] file Legal Sex Male 3:40 AM MEDICAL ANTHROPOLOGY DIRECTOR Gender Identity Not on file Sexual Orientation Not on file documented as of this encounter Plan of Treatment Not on file documented as of this encounter Visit Diagnoses Not on filedocumented in this encounter Care Teams Ticket Writer Relationship Specialty Start Date End Date Violeta Casillas DO PCP - General 09/29/16 09/15/21 documented as of this encounter
--- OUTSIDE RECORDS SUMMARY | 2024-07-09 07:19 | XMS_ITS | Encounter Summary ---
Author Organization [facility] Facility Care Team Providers Care Foundation Engineer Name Role Phone Violeta Casillas DO [...] file Legal Sex Male 3:40 AM ROLL ON WORKER Gender Identity Not on file Sexual Orientation Not on file documented as of this encounter Plan of Treatment Not on file documented as of this encounter Visit Diagnoses Not on filedocumented in this encounter Care Teams Foundation Engineer Relationship Specialty Start Date End Date Violeta Casillas DO PCP - General 09/29/16 09/15/21 documented as of this encounter
--- OUTSIDE RECORDS SUMMARY | 2024-07-09 07:19 | XMS_ITS | Encounter Summary ---
Author Organization [facility] Medical [facility] Address [address] [address] Care Team Providers Care Maritime Engineer Name Role Phone Violeta Casillas DO Primary Care Provider + Encounter Details Date Type Department Care Team (Late st Contact Info) Description 04/25/2019 9:15 AM CDT Lab Medical [facility] [address] [facility] Atrial fibrillation, unspecified type (CMS/HCC) Social History Tobacco Use Types Packs/Day Years Used Date Smoking Tobacco: Former Smokeless Tobacco: Former Alcohol Use Standard Drinks/Week Comments Yes 0 (1 standard drink = 0.6 oz pur e alcohol) PHQ-2 Answer Date Recorded PHQ-2 Score 0 02/22/2019 Sex and Gender Information Value Date Recorded Sex Assigned at Not on file Legal Sex Male 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
--- OUTSIDE RECORDS SUMMARY | 2024-07-09 07:19 | XMS_ITS | Encounter Summary ---
Author Organization [facility] Medical [facility] Address [address] [facility] [address] [place] [address] Care Team Providers Care Rural Sociologist Name Role Phone Violeta Casillas DO Primary Care Provider + Reason for Visit * Reason Onset Date Comments Anticoagulation 04/25/2019 Encounter Details Date Type Department Care Team (Late st Contact Info) Description 04/25/[address] 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 He is aware * Telephone Encounter - Ruth Farmer LPN - 04/25/2019 11:42 AM CDT Patient INR 1.[address] Dr[address] Casillas, patient to continue alternating 7-8 mg and recheck in one month. Left voicemail for patient to return call documented in this encounter Plan of Treatment Not on file documented as of this encounter Visit Diagnoses Not on filedocumented in this encounter Care Teams Rural Sociologist Relationship Specialty Start Date End Date Violeta Casillas DO PCP - General 09/29/16 09/15/21 documented as of this encounter
--- OUTSIDE RECORDS SUMMARY | 2024-07-09 07:20 | XMS_ITS | Encounter Summary ---
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
--- OUTSIDE RECORDS SUMMARY | 2024-07-09 07:20 | XMS_ITS | Encounter Summary ---
Author Organization [facility] Medical [facility] Address [address] [address] Care Team Providers Care Title I Paraprofessional Name Role Phone Violeta Casillas DO Primary Care Provider + Reason for Visit * Reason Comments Flu Vaccine Encounter Details Date Type Department Care Team (Latest Contact Info) Description 04/11/2019 10:15 AM CDT Clinical Support [facility] [address] [place] [phone] Flu vaccine need (Primary Dx) Social History Tobacco Use Types Packs/Day Years Used Date Smoking Tobacco: Former Smokeless Tobacco: Former Alcohol Use Standard Drinks/Week Comments Yes 0 (1 standard drink = 0.6 oz pur e alcohol) PHQ-2 Answer Date Recorded PHQ-2 Score 0 02/22/2019 Sex and Gender Information Value Date Recorded Sex Assigned at Not on file Legal Sex Male 3:40 AM DULITE MACHINE BLUER Gender Identity Not on file Sexual Orientation [...] 04/11/2019 documented in this encounter Care Teams Title I Paraprofessional Relationship Specialty Start Date End Date Violeta Casillas DO PCP - General 09/29/16 09/15/21 documented as of this encounter
--- OUTSIDE RECORDS SUMMARY | 2024-07-09 07:20 | XMS_ITS | Encounter Summary ---
Author Organization [facility] Facility Care Team Providers Care Dinkey Dispatcher Name Role Phone Violeta Casillas DO Primary [...] on file Legal Sex Male 3:40 AM PONDMAN Gender Identity Not on file Sexual Orientation Not on file documented as of this encounter Plan of Treatment Not on file documented as of this encounter Visit Diagnoses Not on filedocumented in this encounter Care Teams Dinkey Dispatcher Relationship Specialty Start Date End Date Violeta Casillas DO PCP - General 09/29/16 09/15/21 documented as of this encounter
--- OUTSIDE RECORDS SUMMARY | 2024-07-09 07:20 | XMS_ITS | Encounter Summary ---
Author Organization [facility] Medical [facility] Address [address] [facility] [address] [place] [address] Care Team Providers Care Viscosity Tester Name Role Phone Violeta Casillas DO Primary Care Provider + Reason for Visit * Reason Onset Date Comments Anticoagulation 04/17/2019 Encounter Details Date Type Department Care Team (Late st Contact Info) Description 04/17/2019 Telephone Medical [facility] [address] [place] [address] Ruth Hankins LPN Anticoagulation Social History Tobacco Use Types Packs/Day Years Used Date Smoking Tobacco: Former Smokeless Tobacco: Former Alcohol Use Standard Drinks/Week Comments Yes 0 (1 standard drink = 0.6 oz pur e alcohol) PHQ-2 Answer Date Recorded PHQ-2 Score 0 02/22/2019 Sex and Gender Information Value Date Recorded Sex Assigned at Not on file Legal Sex Male 3:40 AM DOG BOARDER Gender Identity Not on file Sexual Orientation [...] on filedocumented in this encounter Care Teams Viscosity Tester Relationship Specialty Start Date End Date Violeta Casillas DO PCP - General 09/29/16 09/15/21 documented as of this encounter
--- OUTSIDE RECORDS SUMMARY | 2024-07-09 07:20 | XMS_ITS | Encounter Summary ---
Author Organization [facility] Medical [facility] Address [address] [facility] [address] [place] [address] Care Team Providers Care Line Operator Name Role Phone Violeta Casillas DO Primary Care Provider + Encounter Details Date Type Department Care Team (Late st Contact Info) Description 04/16/2019 8:45 AM CDT Lab Medical [facility] [address] [facility] Atrial fibrillation, unspecified type (CMS/HCC) Social History Tobacco Use Types Packs/Day Years Used Date Smoking Tobacco: Former Smokeless Tobacco: Former Alcohol Use Standard Drinks/Week Comments Yes 0 (1 standard drink = 0.6 oz pur e alcohol) PHQ-2 Answer Date Recorded PHQ-2 Score 0 02/22/2019 Sex and Gender Information Value Date Recorded Sex Assigned at Not on file Legal Sex Male 3:40 AM SAND MIXER OPERATOR Gender Identity Not on file Sexual [...] (HCC) documented in this encounter Care Teams Line Operator Relationship Specialty Start Date End Date Violeta Casillas DO PCP - General 09/29/16 09/15/21 documented as of this encounter
--- OUTSIDE RECORDS SUMMARY | 2024-07-09 07:20 | XMS_ITS | Encounter Summary ---
Author Organization [facility] Medical [facility] Address [address] [facility] [address] [place] [address] Care Team Providers Care Biscuit Packer Name Role Phone Violeta Casillas DO Primary Care Provider + Encounter Details Date Type Department Care Team (Late st Contact Info) Description 04/08/2019 Telephone Medical [facility] [address] [place] [address] Violeta Casillas DO [address] [place] [address] Social History Tobacco Use Types Packs/Day Years Used Date Smoking Tobacco: Former Smokeless Tobacco: Former Alcohol Use Standard Drinks/Week Comments Yes 0 (1 standard drink = 0.6 oz pur e alcohol) PHQ-2 Answer Date Recorded PHQ-2 Score 0 02/22/2019 Sex and Gender Information Value Date Recorded Sex Assigned at Not on file Legal Sex Male 3:40 AM SNACK STEWARD Gender Identity Not on file Sexual Orientation [...] I found the correct physician, Villa Wiley [phone] I left a message requesting procedure and estimated blood loss. * Telephone Encounter - Ruth Farmer LPN - 04/08/2019 3:06 PM CDT Patient was unsure of the exact procedure and I'm unable to find a doctor with the name he gave me and the phone number is to a Viaziz Scam. He said it was a Dr. Villa Grant or [facility], I couldn't get him or the to clarify if it was a C or a D and the number they gave me was [phone] * Telephone Encounter - Violeta Casillas DO [...] on filedocumented in this encounter Care Teams Biscuit Packer Relationship Specialty Start Date End Date Violeta Casillas DO PCP - General 09/29/16 09/15/21 documented as of this encounter
--- OUTSIDE RECORDS SUMMARY | 2024-07-09 07:20 | XMS_ITS | Encounter Summary ---
Author Organization [facility] Facility Care Team Providers Care Homoeopath Name Role Phone Violeta Casillas DO Primary [...] on file Legal Sex Male 3:40 AM LOG YARD DERRICK OPERATOR Gender Identity Not on file Sexual Orientation Not on file documented as of this encounter Plan of Treatment Not on file documented as of this encounter Visit Diagnoses Not on filedocumented in this encounter Care Teams Homoeopath Relationship Specialty Start Date End Date Violeta Casillas DO PCP - General 09/29/16 09/15/21 documented as of this encounter
--- OUTSIDE RECORDS SUMMARY | 2024-07-09 07:20 | XMS_ITS | Encounter Summary ---
Author Organization [facility] Medical [facility] Address [address] [address] Care Team Providers Care Safety Engineer Name Role Phone Violeta aCsillas DO Primary Care Provider + Reason for Visit * Reason Onset Date Comments Anticoagulation 04/03/2019 Encounter Details Date Type Department Care Team (Late st Contact Info) Description 04/03/2019 Telephone Medical [facility] [address] [place] [address] Ruth Hankins LPN Anticoagulation Social History Tobacco Use Types Packs/Day Years Used Date Smoking Tobacco: Former Smokeless Tobacco: Former Alcohol Use Standard Drinks/Week Comments Yes 0 (1 standard drink = 0.6 oz pur e alcohol) PHQ-2 Answer Date Recorded PHQ-2 Score 0 02/22/2019 Sex and Gender Information Value Date Recorded Sex Assigned at Not on file Legal Sex Male 3:40 AM WHOLESALE REPRESENTATIVE Gender Identity Not on file Sexual [...] on filedocumented in this encounter Care Teams Safety Engineer Relationship Specialty Start Date End Date Violeta Casillas DO PCP - General 09/29/16 09/15/21 documented as of this encounter
--- OUTSIDE RECORDS SUMMARY | 2024-07-09 07:20 | XMS_ITS | Encounter Summary ---
Author Organization [facility] Medical Group Address [address] [facility] [address] [place] [address] Care Team Providers Care Clay Carman Name Role Phone Violeta Casillas DO Primary Care Provider + Reason for Visit * Reason Comments URI cough-productive yel low Encounter Details Date Type Department Care Team (Late st Contact Info) Description 04/21/2019 11:30 AM CDT [facility] [address] [place] [address] Violeta Casillas DO [address] [place] [address] Bronchitis (Primary Dx); Chronic obstructive pulmonary disease [...] on file Legal Sex Male 3:40 AM HAND BOOTMAKER Gender Identity Not on file Sexual Orientation [...] histories in depth with patient and/or their agricultural sales representative. Review of Systems HENT: Positive for [...] this visit. This note was dictated using Xockets voice recognition software. Variances in spelling and [...] fibrillation documented in this encounter Care Teams Clay Carman Relationship Specialty Start Date End Date Violeta Casillas DO PCP - General 09/29/16 09/15/21 documented as of this encounter
--- OUTSIDE RECORDS SUMMARY | 2024-07-09 07:21 | XMS_ITS | Encounter Summary ---
Author Organization [facility] Medical Group Address [address] [facility] [address] [place] [address] Care Team Providers Care Nanotechnology Engineering Technologist Name Role Phone Violeta Casillas DO Primary Care Provider + Reason for Visit * Reason Onset Date Comments Coagulation Disorder 01/24/2019 Encounter Details Date Type Department Care Team (Late st Contact Info) Description 01/24/2019 Telephone Medical [facility] [address] [place] [phone] Ruth Hankins LPN Coagulation Disorder Social History Tobacco Use Types Packs/Day Years Used Date Smoking Tobacco: Former Smokeless Tobacco: Former Alcohol Use Standard Drinks/Week Comments Yes 0 (1 standard drink = 0.6 oz pur e alcohol) Sex and Gender Information Value Date Recorded Sex Assigned at Not on file Legal Sex Male 3:40 AM DYE BLENDER Gender Identity Not on file Sexual [...] on filedocumented in this encounter Care Teams Nanotechnology Engineering Technologist Relationship Specialty Start Date End Date Violeta Casillas DO PCP - General 09/29/16 09/15/21 documented as of this encounter
--- OUTSIDE RECORDS SUMMARY | 2024-07-09 07:21 | XMS_ITS | Encounter Summary ---
Author Organization [facility] Facility Care Team Providers Care Percher Name Role Phone Violeta Casillas DO Primary [...] on file Legal Sex Male 3:40 AM RATING SPECIALIST Gender Identity Not on file Sexual Orientation Not on file documented as of this encounter Plan of Treatment Not on file documented as of this encounter Visit Diagnoses Not on filedocumented in this encounter Care Teams Percher Relationship Specialty Start Date End Date Violeta Casillas DO PCP - General 09/29/16 09/15/21 documented as of this encounter"
--- OUTSIDE RECORDS SUMMARY | 2024-07-09 07:21 | XMS_ITS | Encounter Summary ---
Author Organization [facility] Facility Care Team Providers Care Veterinary Toxicologist Name Role Phone Violeta Casillas DO Primary [...] file Legal Sex Male 3:40 AM DIGITAL PRINTER Gender Identity Not on file Sexual Orientation Not on file documented as of this encounter Plan of Treatment Not on file documented as of this encounter Visit Diagnoses Not on filedocumented in this encounter Care Teams Veterinary Toxicologist Relationship Specialty Start Date End Date Violeta Casillas DO PCP - General 09/29/16 09/15/21 documented as of this encounter
--- OUTSIDE RECORDS SUMMARY | 2024-07-09 07:21 | XMS_ITS | Encounter Summary ---
Author Organization [facility] Medical Group Address [address] [address] Care Team Providers Care Solar Pool Heating Installer Name Role Phone Violeta Casillas DO Primary Care Provider + Encounter Details Date Type Department Care Team (Late st Contact Info) Description 03/04/2019 9:00 AM CDT Lab Medical [facility] 110[address] [facility] Atrial fibrillation, unspecified type (CMS/HCC) Social [...] file Legal Sex Male 3:40 AM FISH WORM GROWER Gender Identity Not on file Sexual Orientation [...] (HCC) documented in this encounter Care Teams Solar Pool Heating Installer Relationship Specialty Start Date End Date Violeta Casillas DO PCP - General 09/29/16 09/15/21 documented as of this encounter
--- OUTSIDE RECORDS SUMMARY | 2024-07-09 07:21 | XMS_ITS | Encounter Summary ---
Author Organization [facility] Address [address] [place] [address] Care Team Providers Care Soft Crab Shedder Name Role Phone Violeta Casillas DO Primary Care Provider + Reason for Referral * Diagnostic Imaging (Routine) - Closed Specialty Diagnoses / Procedures Referred By Cynac t Referred To Contact Diagnoses Shortness of breath Procedures XR Chest Pa Lateral 2 Views Brandy Alas NP Phone: tel: fax: [address] [phone] Referral ID Status Reason Start Date Expiration Date Visits Re quested Visits Authorized [id number] Closed 02/04/2019 08/15/2020 1 1 Reason for Visit * Diagnostic Imaging (Routine) - Closed Specialty Diagnoses / Procedures Referred By Contsylvester manzanares Referred To Contact Diagnoses Shortness of breath Procedures XR Chest Pa Lateral 2 Views Brandy Alas NP Phone: tel: fax: [address] [phone] Referral ID Status Reason Start Date Expiration Date Visits Re quested Visits Authorized [id number] Closed 02/04/2019 08/15/2020 1 1 Encounter Details Date Type Department Care Team (Latest Contact Info) Description 02/04/2019 10:08 AM CDT - 02/04/2019 11:59 PM CDT Hospital Encounter [facility] [address] [place] [address], [place] [phone] Violeta Casillas, [address] [place] [address] Brandy Alas, DYLAN [address] [place] [address] Shortness of breath Discharge Disposition: Discharge to home or self care Social History Tobacco Use Types Packs/Day Years Used Date Smoking Tobacco: Former Smokeless Tobacco: Former Alcohol Use Standard Drinks/Week Comments Yes 0 (1 standard drink = 0.6 oz pur e alcohol) Sex and Gender Information Value Date Recorded Sex Assigned at Not on file Legal Sex Male 3:40 AM INTELLIGENCE SUPPORT OFFICER Gender Identity Not on file Sexual [...] breath documented in this encounter Care Teams Soft Crab Shedder Relationship Specialty Start Date End Date Violeta Casillas DO PCP - General 09/29/16 09/15/21 documented as of this encounter
--- OUTSIDE RECORDS SUMMARY | 2024-07-09 07:21 | XMS_ITS | Encounter Summary ---
Author Organization [facility] Medical Group Address [address] [facility] [address] [place] [address] Care Team Providers Care Track Inspecting Supervisor Name Role Phone Violeta Casillas DO Primary Care Provider + Reason for Referral * Diagnostic Imaging (Routine) - Closed Specialty Diagnoses / Procedures Referred By Ignacia t Referred To Contact Diagnoses Shortness of breath Procedures XR Chest Pa Lateral 2 Views Estephania lAas NP Phone: tel: fax: [address] [phone] Referral ID Status Reason Start Date Expiration Date Visits Re quested Visits Authorized [id number] Closed 02/04/2019 08/15/2020 1 1 Reason for Visit * Reason Comments Cough Encounter Details Date Type Department Care Team (Late st Contact Info) Description 02/04/2019 10:30 AM CDT [facility] [address] [place] [phone] Estephania Alas NP [address] [place] [address] Shortness of breath (Primary Dx); Cough Social History Tobacco Use Types Packs/Day Years Used Date Smoking Tobacco: Former Smokeless Tobacco: Former Alcohol Use Standard Drinks/Week Comments Yes 0 (1 standard drink = 0.6 oz pur e alcohol) Sex and Gender Information Value Date Recorded Sex Assigned at Not on file Legal Sex Male 3:40 AM RN PLACEMENT Gender Identity Not on file Sexual Orientation [...] Where should this order be performed? Answer: [facility] [[id number]] documented in this encounter Miscellaneous Notes [...] documented as of this encounter Care Teams Track Inspecting Supervisor Relationship Specialty Start Date End Date Violeta Casillas DO PCP - General 09/29/16 09/15/21 documented as of this encounter
--- OUTSIDE RECORDS SUMMARY | 2024-07-09 07:21 | XMS_ITS | Encounter Summary ---
Author Organization [facility] Facility Care Team Providers Care Production Planner Scheduler Name Role Phone Violeta Casillas DO Primary [...] on file Legal Sex Male 3:40 AM LEASE OUT WORKER Gender Identity Not on file Sexual Orientation Not on file documented as of this encounter Plan of Treatment Not on file documented as of this encounter Visit Diagnoses Not on filedocumented in this encounter Care Teams Production Planner Scheduler Relationship Specialty Start Date End Date Violeta Casillas DO PCP - General 09/29/16 09/15/21 documented as of this encounter
--- OUTSIDE RECORDS SUMMARY | 2024-07-09 07:21 | XMS_ITS | Encounter Summary ---
Author Organization [facility] Medical [facility] Address [address] [facility] [address] [place] [address] Care Team Providers Care Take Down Inspector Name Role Phone Violeta Casillas DO Primary Care Provider + Encounter Details Date Type Department Care Team (Late st Contact Info) Description 02/03/2019 Telephone Medical [facility] [address] [place] [address] Violeta Casillas DO [address] [place] [address] Social History Tobacco Use Types Packs/Day Years Used Date Smoking Tobacco: Former Smokeless Tobacco: Former Alcohol Use Standard Drinks/Week Comments Yes 0 (1 standard drink = 0.6 oz pur e alcohol) Sex and Gender Information Value Date Recorded Sex Assigned at Not on file Legal Sex Male 3:40 AM NECKTIE CENTRALIZING MACHINE OPERATOR Gender Identity Not on file [...] on filedocumented in this encounter Care Teams Take Down Inspector Relationship Specialty Start Date End Date Violeta Casillas DO PCP - General 09/29/16 09/15/21 documented as of this encounter
--- OUTSIDE RECORDS SUMMARY | 2024-07-09 07:21 | XMS_ITS | Encounter Summary ---
Author Organization [facility] Medical Group Address [address] [facility] [address] [place] [address] Care Team Providers Care Director Telecommunications Name Role Phone Violeta Casillas DO Primary Care Provider + Encounter Details Date Type Department Care Team (Late st Contact Info) Description 04/03/2019 8:45 AM CDT Lab Medical [facility] [address] [facility] Atrial fibrillation, unspecified type (CMS/HCC) Social [...] file Legal Sex Male 3:40 AM FOOD SERVICE SALES REPRESENTATIVES Gender Identity Not on file Sexual Orientation [...] (HCC) documented in this encounter Care Teams Director Telecommunications Relationship Specialty Start Date End Date Violeta Casillas DO PCP - General 09/29/16 09/15/21 documented as of this encounter
--- OUTSIDE RECORDS SUMMARY | 2024-07-09 07:21 | XMS_ITS | Encounter Summary ---
Author Organization [facility] Medical Group Address [address] [facility] [address] [place] [address] Care Team Providers Care Property Disposal Officer Name Role Phone Violeta Casillas DO Primary Care Provider + Encounter Details Date Type Department Care Team (Late st Contact Info) Description 02/03/2019 8:15 AM CDT Lab Medical [facility] [address] [facility] Atrial fibrillation, unspecified type (CMS/HCC) (Primary Dx); Chronic atrial fibrillation (CMS/HCC) Social History Tobacco Use Types Packs/Day Years Used Date Smoking Tobacco: Former Smokeless Tobacco: Former Alcohol Use Standard Drinks/Week Comments Yes 0 (1 standard drink = 0.6 oz pur e alcohol) Sex and Gender Information Value Date Recorded Sex Assigned at Not on file Legal Sex Male 3:40 AM PLANT PRODUCTION MANAGER Gender Identity Not on file Sexual [...] fibrillation documented in this encounter Care Teams Property Disposal Officer Relationship Specialty Start Date End Date Violeta Casillas DO PCP - General 09/29/16 09/15/21 documented as of this encounter
--- OUTSIDE RECORDS SUMMARY | 2024-07-09 07:22 | XMS_ITS | Encounter Summary ---
Author Organization [facility] Facility Care Team Providers Care Booth Cashier Name Role Phone Violeta Casillas DO Primary [...] file Legal Sex Male 3:40 AM AIR BRUSH ARTIST Gender Identity Not on file Sexual Orientation Not on file documented as of this encounter Plan of Treatment Not on file documented as of this encounter Visit Diagnoses Not on filedocumented in this encounter Care Teams Booth Cashier Relationship Specialty Start Date End Date Violeta Casillas DO PCP - General 09/29/16 09/15/21 documented as of this encounter
--- OUTSIDE RECORDS SUMMARY | 2024-07-09 07:22 | XMS_ITS | Encounter Summary ---
Author Organization [facility] Medical Group Address [address] [address] Care Team Providers Care Grease Cup Filler Name Role Phone Violeta Casillas DO Primary Care Provider + Encounter Details Date Type Department Care Team (Late st Contact Info) Description 01/17/2019 Telephone Medical [facility] [address] [place] [address] Ruth Hankins LPN Social History Tobacco Use Types Packs/Day Years Used Date Smoking Tobacco: Former Smokeless Tobacco: Former Alcohol Use Standard Drinks/Week Comments Yes 0 (1 standard drink = 0.6 oz pur e alcohol) Sex and Gender Information Value Date Recorded Sex Assigned at Not on file Legal Sex Male 3:40 AM SALES PROPERTY MANAGER Gender Identity Not on file Sexual [...] Primary documented in this encounter Care Teams Grease Cup Filler Relationship Specialty Start Date End Date Violeta Casillas DO PCP - General 09/29/16 09/15/21 documented as of this encounter
--- OUTSIDE RECORDS SUMMARY | 2024-07-09 07:22 | XMS_ITS | Encounter Summary ---
Author Organization [facility] Medical [facility] Address [address] [facility] [address] [place] [address] Care Team Providers Care Dietitian Name Role Phone Violeta Casillas DO Primary Care Provider + Encounter Details Date Type Department Care Team ([facility] st Contact Info) Description 01/17/2019 10:00 AM CDT Lab Medical [facility] [address] [facility] Atrial fibrillation, unspecified type (CMS/HCC) Social History Tobacco Use Types Packs/Day Years Used Date Smoking Tobacco: Former Smokeless Tobacco: Former Alcohol Use Standard Drinks/Week Comments Yes 0 (1 standard drink = 0.6 oz pur e alcohol) Sex and Gender Information Value Date Recorded Sex Assigned at Not on file Legal Sex Male 3:40 AM WOOD FLOOR LAYER Gender Identity Not on file Sexual [...] (HCC) documented in this encounter Care Teams Dietitian Relationship Specialty Start Date End Date Violeta Casillas DO PCP - General 09/29/16 09/15/21 documented as of this encounter
--- OUTSIDE RECORDS SUMMARY | 2024-07-09 07:22 | XMS_ITS | Encounter Summary ---
Author Organization [facility] Facility Care Team Providers Care Crushing Foreman Name Role Phone Violeta Casillas DO Primary [...] on file Legal Sex Male 3:40 AM APPLE TURNER Gender Identity Not on file Sexual Orientation Not on file documented as of this encounter Plan of Treatment Not on file documented as of this encounter Visit Diagnoses Not on filedocumented in this encounter Care Teams Crushing Foreman Relationship Specialty Start Date End Date Violeta Casillas DO PCP - General 09/29/16 09/15/21 documented as of this encounter
--- OUTSIDE RECORDS SUMMARY | 2024-07-09 07:22 | XMS_ITS | Encounter Summary ---
Author Organization [facility] Medical Group Address [address] [facility] [address] [place] [address] Care Team Providers Care Peer Counselor Name Role Phone Violeta Casillas DO Primary Care Provider + Encounter Details Date Type Department Care Team (Late st Contact Info) Description 01/24/2019 8:30 AM CDT Lab Medical [address] Atrial fibrillation, unspecified type (CMS/HCC) Social History Tobacco Use Types Packs/Day Years Used Date Smoking Tobacco: Former Smokeless Tobacco: Former Alcohol Use Standard Drinks/Week Comments Yes 0 (1 standard drink = 0.6 oz pur e alcohol) Sex and Gender Information Value Date Recorded Sex Assigned at Not on file Legal Sex Male 3:40 AM LETTERPRESS PRINTING 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
--- OUTSIDE RECORDS SUMMARY | 2024-07-09 07:22 | XMS_ITS | Encounter Summary ---
Author Organization [facility] Medical Group Address [address] [address] Care Team Providers Care Curbing Stonecutter Name Role Phone Violeta Casillas DO Primary Care Provider + Encounter Details Date Type Department Care Team (Late st Contact Info) Description 10/23/2018 Telephone Medical [facility] [address] [place] [address] Ruth Hankins LPN Social History Tobacco Use Types Packs/Day Years Used Date Smoking Tobacco: Former Smokeless Tobacco: Former Alcohol Use Standard Drinks/Week Comments Yes 0 (1 standard drink = 0.6 oz pur e alcohol) Sex and Gender Information Value Date Recorded Sex Assigned at Not on file Legal Sex Male 3:40 AM PIGMENT AND LACQUER MIXER Gender Identity Not on file Sexual Orientation [...] on filedocumented in this encounter Care Teams Curbing Stonecutter Relationship Specialty Start Date End Date Violeta Casillas DO PCP - General 09/29/16 09/15/21 documented as of this encounter
--- OUTSIDE RECORDS SUMMARY | 2024-07-09 07:22 | XMS_ITS | Encounter Summary ---
Author Organization [facility] Medical Group Address [address] [address] Care Team Providers Care Supervisor Carbon Paper Coating Name Role Phone Violeta Casillas DO Primary Care Provider + Encounter Details Date Type Department Care Team (Late st Contact Info) Description 01/17/2019 Orders Only [facility] [address] [place] [address] Violeta Casillas DO [address] [place] [address] Atrial fibrillation, unspecified type (CMS/HCC) (Primary Dx) Social History Tobacco Use Types Packs/Day Years Used Date Smoking Tobacco: Former Smokeless Tobacco: Former Alcohol Use Standard Drinks/Week Comments Yes 0 (1 standard drink = 0.6 oz pur e alcohol) Sex and Gender Information Value Date Recorded Sex Assigned at Not on file Legal Sex Male 3:40 AM SPECIAL OFFICER AUTOMAT Gender Identity Not on file Sexual Orientation Not on file documented as of this encounter Plan of Treatment Not on file documented as of this encounter Visit Diagnoses Diagnosis Atrial fibrillation, unspecified type (HCC)- Primary documented in this encounter Care Teams Supervisor Carbon Paper Coating Relationship Specialty Start Date End Date Violeta Casillas DO PCP - General 09/29/16 09/15/21 documented as of this encounter
--- OUTSIDE RECORDS SUMMARY | 2024-07-09 07:22 | XMS_ITS | Encounter Summary ---
Author Organization [facility] Medical [facility] Address [address] [facility] [address] [place] [address] Care Team Providers Care Greaser Helper Name Role Phone Violeta Casillas DO Primary Care Provider + Encounter Details Date Type Department Care Team (Late st Contact Info) Description 12/13/2018 8:00 AM CDT Lab [facility] [address] [facility] Social History Tobacco Use Types Packs/Day Years Used Date Smoking Tobacco: Former Smokeless Tobacco: Former Alcohol Use Standard Drinks/Week Comments Yes 0 (1 standard drink = 0.6 oz pur e alcohol) Sex and Gender Information Value Date Recorded Sex Assigned at Not on file Legal Sex Male 3:40 AM DIE KEEPER Gender Identity Not on file Sexual Orientation Not on file documented as of this encounter Plan of Treatment Not on file documented as of this encounter Visit Diagnoses Not on filedocumented in this encounter Care Teams Greaser Helper Relationship Specialty Start Date End Date Violeta Casillas DO PCP - General 09/29/16 09/15/21 documented as of this encounter
--- OUTSIDE RECORDS SUMMARY | 2024-07-09 07:22 | XMS_ITS | Encounter Summary ---
Author Organization [facility] Medical [facility] Address [address] [address] Care Team Providers Care Strip Feeder Name Role Phone Violeta Casillas DO Primary Care Provider + Encounter Details Date Type Department Care Team (Late st Contact Info) Description 11/28/2018 Telephone Medical [facility] [address] [place] [address] Ruth Hankins LPN Social History Tobacco Use Types Packs/Day Years Used Date Smoking Tobacco: Former Smokeless Tobacco: Former Alcohol Use Standard Drinks/Week Comments Yes 0 (1 standard drink = 0.6 oz pur e alcohol) Sex and Gender Information Value Date Recorded Sex Assigned at Not on file Legal Sex Male 3:40 AM CLOTH WASHER Gender Identity Not on file Sexual [...] on filedocumented in this encounter Care Teams Strip Feeder Relationship Specialty Start Date End Date Violeta Casillas DO PCP - General 09/29/16 09/15/21 documented as of this encounter
--- OUTSIDE RECORDS SUMMARY | 2024-07-09 07:22 | XMS_ITS | Encounter Summary ---
Author Organization [facility] Facility Care Team Providers Care Supervisor Anodizing Name Role Phone Violeta Casillas DO Primary [...] on file Legal Sex Male 3:40 AM POT ROOM TAPPER Gender Identity Not on file Sexual Orientation Not on file documented as of this encounter Plan of Treatment Not on file documented as of this encounter Visit Diagnoses Not on filedocumented in this encounter Care Teams Supervisor Anodizing Relationship Specialty Start Date End Date Violeta Casillas DO PCP - General 09/29/16 09/15/21 documented as of this encounter
--- OUTSIDE RECORDS SUMMARY | 2024-07-09 07:22 | XMS_ITS | Encounter Summary ---
Author Organization [facility] Medical Group Address [address] [facility] [address] [place] [address] Care Team Providers Care Electrical Appliance Servicer Name Role Phone Violeta Casillas DO Primary Care Provider + Reason for Visit * Reason Comments Medicare Wellness labs Encounter Details Date Type Department Care Team (Late st Contact Info) Description 12/18/2018 8:00 AM CDT [facility] [address] [place] [address] Violeta Casillas DO [address] [place] [address] Well adult exam (Primary Dx); Chronic atrial [...] on file Legal Sex Male 3:40 AM RADIOTELEPHONE TECHNICAL OPERATOR Gender Identity Not on file Sexual [...] Directive (Living Will) and/or Durable Power of Food Technician?: No Would you like information regarding Advanced Directiv (Living Will) and/or Durable Power of Food Technician?: No Do you have trouble hearing the [...] file Gets together: Not on file Attends christian service: Not on file Active member of [...] General Violeta Casillas DO as PCP - [facility] Attributed PCP Primary Pharmacy/DME suppliers: [facility] [address] [place], [place] - [address] [place] [address] [address] [facility] [address] [facility] [address] [facility] [address] [facility] [address] [facility] [address] Detection of Cognitive Impairment: Detect cognitive impairment [...] monitoring guidelines. Advanced Directive Durable Power of Food Technician: No Living Will: No Assessment / Plan: [...] Results * Lipid panel (07/29/2019 8:20 AM RADIOTELEPHONE TECHNICAL OPERATOR) [facility] Cholesterol 123 30 - 199 mg/dL [facility] Comment: Interpretive Data Ages < or [...] revised on 2018. Triglycerides 83 <=149 mg/dL [facility] Comment: Interpretive Data Ages < or [...] revised on 2018. HDL 50 >=40 mg/dL [facility] Comment: Interpretive Data Ages < or [...] on 2018. LDL, calculated 56 <=129 mg/dL [facility] Comment: Interpretive Data Ages < or [...] revised on 2018. Non-HDL Cholesterol 73 mg/dL [facility] Comment: Interpretive Data Ages < or [...] last revised on 2018. Chol/HDL ratio 2 [facility] Blood specimen (specimen) 07/29/2019 8:20 AM RADIOTELEPHONE TECHNICAL OPERATOR 07/29/2019 10:18 AM RADIOTELEPHONE TECHNICAL OPERATOR us Violeta Casillas DO LAB BLOOD ORDERABLES Fin al Result [facility] [address] [facility] [place] [address] documented in this encounter Visit Diagnoses Diagnosis [...] 12/18/2018 documented in this encounter Care Teams Electrical Appliance Servicer Relationship Specialty Start Date End Date Violeta Casillas DO PCP - General 09/29/16 09/15/21 documented as of this encounter
--- OUTSIDE RECORDS SUMMARY | 2024-07-09 07:23 | XMS_ITS | Encounter Summary ---
Author Organization [facility] Medical [facility] Address [address] [facility] [address] [place] [address] Care Team Providers Care Disability Insurance Claim Examiner Name Role Phone Violeta Casillas DO Primary Care Provider + Encounter Details Date Type Department Care Team (Late st Contact Info) Description 05/02/2018 Orders Only [facility] [address] [place] [address] Scanning, Provider Social History Tobacco Use Types Packs/Day Years Used Date Smoking Tobacco: Former Smokeless Tobacco: Former Alcohol Use Standard Drinks/Week Comments Yes 0 (1 standard drink = 0.6 oz pur e alcohol) Sex and Gender Information Value Date Recorded Sex Assigned at Not on file Legal Sex Male 3:40 AM METAL SOLDERER Gender Identity Not on file Sexual Orientation [...] on filedocumented in this encounter Care Teams Disability Insurance Claim Examiner Relationship Specialty Start Date End Date Violeta Casillas DO PCP - General 09/29/16 09/15/21 documented as of this encounter
--- OUTSIDE RECORDS SUMMARY | 2024-07-09 07:23 | XMS_ITS | Encounter Summary ---
Author Organization [facility] Medical Group Address [address] [address] Care Team Providers Care Supply Coordinator Name Role Phone Violeta Casillas DO Primary Care Provider + Encounter Details Date Type Department Care Team (Late st Contact Info) Description 06/12/2018 Telephone Medical [facility] [address] [place] [address] Ruth Hankins LPN Social History Tobacco Use Types Packs/Day Years Used Date Smoking Tobacco: Former Smokeless Tobacco: Former Alcohol Use Standard Drinks/Week Comments Yes 0 (1 standard drink = 0.6 oz pur e alcohol) Sex and Gender Information Value Date Recorded Sex Assigned at Not on file Legal Sex Male 3:40 AM MITIGATION SUPERVISOR Gender Identity Not on file Sexual Orientation Not on file documented as of this encounter Miscellaneous Notes * Telephone Encounter - Ruth Farmer LPN - 06/12/2018 3:35 PM CST Pt to increase dosage of coumadin to 10 mg for one dose then return to 7 mg daily and recheck INR on 06/17/18. 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 GATION SUPERVISOR documented in this encounter Plan of Treatment Not on file documented as of this encounter Visit Diagnoses Not on filedocumented in this encounter Care Teams Supply Coordinator Relationship Specialty Start Date End Date Violeta Casillas DO PCP - General 09/29/16 09/15/21 documented as of this encounter
--- OUTSIDE RECORDS SUMMARY | 2024-07-09 07:23 | XMS_ITS | Encounter Summary ---
Author Organization [facility] Medical Group Address [address] [facility] [address] [place] [address] Care Team Providers Care Database Technician Name Role Phone Violeta Casillas DO Primary Care Provider + Encounter Details Date Type Department Care Team (Late st Contact Info) Description 05/06/2018 Telephone [facility] [address] [place] [address] Violeta Casillas DO [address] [place] [address] Social History Tobacco Use Types Packs/Day Years Used Date Smoking Tobacco: Former Smokeless Tobacco: Former Alcohol Use Standard Drinks/Week Comments Yes 0 (1 standard drink = 0.6 oz pur e alcohol) Sex and Gender Information Value Date Recorded Sex Assigned at Not on file Legal Sex Male 3:40 AM CRISIS CLINICIAN Gender Identity Not on file Sexual Orientation [...] his cholesterol med and amitripilyne sent to [facility] it was sent to a different pharmacy but was going to be too expensive. IS CLINICIAN documented in this encounter Plan of Treatment [...] documented as of this encounter Care Teams Database Technician Relationship Specialty Start Date End Date Violeta Casillas DO PCP - General 09/29/16 09/15/21 documented as of this encounter
--- OUTSIDE RECORDS SUMMARY | 2024-07-09 07:23 | XMS_ITS | Encounter Summary ---
Author Organization [facility] Medical [facility] Address [address] [facility] [address] [place] [address] Care Team Providers Care Craft Recruiter Name Role Phone Violeta Casillas DO Primary Care Provider + Encounter Details Date Type Department Care Team ([facility] st Contact Info) Description 06/11/2018 Orders Only [facility] [address] [place] [address] Scanning, Provider Social History Tobacco Use Types Packs/Day Years Used Date Smoking Tobacco: Former Smokeless Tobacco: Former Alcohol Use Standard Drinks/Week Comments Yes 0 (1 standard drink = 0.6 oz pur e alcohol) Sex and Gender Information Value Date Recorded Sex Assigned at Not on file Legal Sex Male 3:40 AM RESEARCH PHLEBOTOMIST Gender Identity Not on file Sexual Orientation [...] on filedocumented in this encounter Care Teams Craft Recruiter Relationship Specialty Start Date End Date Violeta Casillas DO PCP - General 09/29/16 09/15/21 documented as of this encounter
--- OUTSIDE RECORDS SUMMARY | 2024-07-09 07:23 | XMS_ITS | Encounter Summary ---
Author Organization [facility] Address [address] [facility] [address] [place] [address] Care Team Providers Care Senior Sql Server Developer Name Role Phone Violeta Casillas DO Primary Care Provider + Reason for Visit * Reason Comments Follow-up labs Encounter Details Date Type Department Care Team (Latest Contact Info) Description 06/18/2018 2:00 PM NEON MOLDER [facility] Visit [facility] [address] [place] [address] Violeta Casillas DO [address] [place] [address] Chronic obstructive pulmonary disease with acute exacerbation [...] on file Legal Sex Male 3:40 AM NEON MOLDER Gender Identity Not on file Sexual Orientation Not on file documented as of this encounter Last Filed Vital Signs Vital Sign Reading Time Taken Comments Blood Pressure 138/68 06/18/2018 1:45 PM NEON MOLDER Pulse 55 06/18/2018 1:45 PM NEON MOLDER Temperature 36.2 ??C (97.2 ??F) 06/18/2018 1:45 PM CS T Respiratory Rate 16 06/18/2018 1:45 PM NEON MOLDER Oxygen Saturation 97% 06/18/2018 1:45 PM NEON MOLDER Inhaled Oxygen Concentration - - Weight 70.5 kg (155 lb 6.4 oz) 06/18/2018 1:45 P M NEON MOLDER Height 185.4 cm (6' 0.99 ) 06/18/2018 1:45 PM CS T Body Mass Index 20.51 06/18/2018 1:45 PM NEON MOLDER documented in this encounter Patient Instructions * Patient Instructions* Violeta Casillas DO - 06/18/2018 2:00 PM NEON MOLDER Prevnar 13, which is one of the 2 pneumonia vaccines. Please get this at local pharmacy and we can give you the second one later on. I would also consider getting the Tdap vaccine for tetanus and whooping cough. MOLDER MOLDER documented in this encounter Progress Notes * [...] in depth with patient and/or their customer service representative. Review of Systems Constitutional: Negative for [...] Standing Status: Future Standing Expiration Date: 06/18/2019 MOLDER documented in this encounter Miscellaneous Notes * Assessment & Plan Note - Violeta Casillas DO - 06/18/2018 2:20 PM NEON MOLDER Associated Problem(s): Chronic atrial fibrillation (HCC) Chronic & stable on meds. Continue current treatment. MOLDER * Assessment & Plan Note - Violeta Casillas DO - 06/18/2018 2:20 PM NEON MOLDER Associated Problem(s): Chronic obstructive pulmonary disease (HCC) Stable without regular use of inhalers. MOLDER * Assessment & Plan Note - Violeta Casillas DO - 06/18/2018 2:20 PM NEON MOLDER Associated Problem(s): Recurrent major depressive disorder (HCC) Chronic & stable on meds. Continue current treatment. MOLDER * Assessment & Plan Note - Violeta Casillas DO - 06/18/2018 2:20 PM NEON MOLDER Associated Problem(s): Pure hypercholesterolemia Chronic & stable on meds. Continue current treatment. MOLDER * Addendum Note - Sosa Bro MLT [...] direct 87 <100 mg/dL [facility] [place] Comment: Greatly elevated Triglycerides values (>1200 mg/dL) [...] ?Site ID: ANA ?Name: [facility] ?Address: [address] [id number] ?Director: Gomez Sánchez D.O., MPH us Violeta Casillas DO LAB BLOOD ORDERABLES Fin al Result [facility] [place] ANA [place]uffy * (ABNORMAL) Comprehensive metabolic panel (12/13/2018 8:09 AM CDT) Glucose 109(H) 65 - 99 mg/dL [facility] [place] Comment: ? Fasting reference [...] higher for people identified as -Citizen Of [place]. eGFR NON-AFR. IVORIAN 70 > OR = 60 mL/min/1 .73m2 [...] ?Site ID: ANA ?Name: [facility] ?Address: [id number] [place] [address] [place] [id number] ?Director: Gomez Sánchez D.O., MPH us Violeta Casillas DO LAB BLOOD ORDERABLES Fin al Result [facility] [place] A[place] documented in this encounter Visit Diagnoses Diagnosis Chronic obstructive pulmonary disease with acute exacerbation (HCC)- Primary Chronic atrial fibrillation (HCC) Atrial fibrillation Mild episode of recurrent major depressive disorder (HCC) Pure hypercholesterolemia documented in this encounter Care Teams Senior Sql Server Developer Relationship Specialty Start Date End Date Violeta Casillas DO PCP - General 09/29/16 09/15/21 documented as of this encounter
--- OUTSIDE RECORDS SUMMARY | 2024-07-09 07:23 | XMS_ITS | Encounter Summary ---
Author Organization [facility] Address [address] [facility] [address] [place] [address] Care Team Providers Care Erp Consultant Name Role Phone Violeta Casillas DO Primary Care Provider + Encounter Details Date Type Department Care Team (Late st Contact Info) Description 08/06/2018 Telephone Medical [facility] [address] [place] [address] Violeta Casillas DO [address] [place] [address] Social History Tobacco Use Types Packs/Day Years Used Date Smoking Tobacco: Former Smokeless Tobacco: Former Alcohol Use Standard Drinks/Week Comments Yes 0 (1 standard drink = 0.6 oz pur e alcohol) Sex and Gender Information Value Date Recorded Sex Assigned at Not on file Legal Sex Male 3:40 AM CYLINDER PRESS OPERATOR HELPER Gender Identity Not on file Sexual Orientation Not on file documented as of this encounter Miscellaneous Notes * Telephone Encounter - Violeta Casillas DO - 08/06/2018 2:41 PM CYLINDER PRESS OPERATOR HELPER Take an extra 2mg tonight then resume normal dosing. Recheck in 1 week. NDER PRESS OPERATOR HELPER * Telephone Encounter - Nguyễn Rueda - 08/06/2018 2:25 PM CST Naye with [employer] called and he has an out of range inr of 1.6 that was checked today. NDER PRESS OPERATOR HELPER documented in this encounter Plan of Treatment Not on file documented as of this encounter Visit Diagnoses Not on filedocumented in this encounter Care Teams Erp Consultant Relationship Specialty Start Date End Date Violeta Casillas DO PCP - General 09/29/16 09/15/21 documented as of this encounter
--- OUTSIDE RECORDS SUMMARY | 2024-07-09 07:23 | XMS_ITS | Encounter Summary ---
Author Organization [facility] Address [address] [facility] [address] [place] [address] Care Team Providers Care Log Rafter Name Role Phone Vioelta Casillas DO Primary Care Provider + Encounter Details Date Type Department Care Team (Late st Contact Info) Description 06/11/2018 8:15 AM CERTIFIED EMERGENCY VEHICLE TECHNICIAN Lab [facility] [address] [facility] Social History Tobacco Use Types Packs/Day Years Used Date Smoking Tobacco: Former Smokeless Tobacco: Former Alcohol Use Standard Drinks/Week Comments Yes 0 (1 standard drink = 0.6 oz pur e alcohol) Sex and Gender Information Value Date Recorded Sex Assigned at Not on file Legal Sex Male 3:40 AM CERTIFIED EMERGENCY VEHICLE TECHNICIAN Gender Identity Not on file Sexual Orientation Not on file documented as of this encounter Plan of Treatment Not on file documented as of this encounter Visit Diagnoses Not on filedocumented in this encounter Care Teams Log Rafter Relationship Specialty Start Date End Date Violeta Casillas DO PCP - General 09/29/16 09/15/21 documented as of this encounter
--- OUTSIDE RECORDS SUMMARY | 2024-07-09 07:23 | XMS_ITS | Encounter Summary ---
Author Organization [facility] Address [address] [facility] [address] [place] [address] Care Team Providers Care Brazer Controlled Atmospheric Furnace Name Role Phone Violeta Casillas DO Primary Care Provider + Encounter Details Date Type Department Care Team (Late st Contact Info) Description 05/13/2018 Telephone Medical [facility] [address] [place] [address] Ruth Hankins LPN Social History Tobacco Use Types Packs/Day Years Used Date Smoking Tobacco: Former Smokeless Tobacco: Former Alcohol Use Standard Drinks/Week Comments Yes 0 (1 standard drink = 0.6 oz pur e alcohol) Sex and Gender Information Value Date Recorded Sex Assigned at Not on file Legal Sex Male 3:40 AM ICING AND GLAZE MAKER Gender Identity Not on file Sexual [...] 8 mg for one day insteadof Bere NEGEL spoke with patient and relayed message to me. G AND GLAZE MAKER documented in this encounter Plan of Treatment Not on file documented as of this encounter Visit Diagnoses Not on filedocumented in this encounter Care Teams Brazer Controlled Atmospheric Furnace Relationship Specialty Start Date End Date Violeta Casillas DO PCP - General 09/29/16 09/15/21 documented as of this encounter
--- OUTSIDE RECORDS SUMMARY | 2024-07-09 07:24 | XMS_ITS | Encounter Summary ---
Author Organization [facility] Address [address] [facility] [address] [place] [address] Care Team Providers Care Activities Director Name Role Phone Violeta Casillas DO Primary Care Provider + Reason for Visit * Reason Onset Date Comments Test Results 04/03/2018 echo Encounter Details Date Type Department Care Team (Late st Contact Info) Description 04/03/2018 Telephone [place] Nitrocellulose Operator [address] [place] [address] Rubén Conklin Test Results (echo) Social History Tobacco Use Types Packs/Day Years Used Date Smoking Tobacco: Former Smokeless Tobacco: Former Alcohol Use Standard Drinks/Week Comments Yes 0 (1 standard drink = 0.6 oz pur e alcohol) Sex and Gender Information Value Date Recorded Sex Assigned at Not on file Legal Sex Male 3:40 AM ENVIRONMENTAL ENGINEER SCIENTIST Gender Identity Not on file Sexual [...] on filedocumented in this encounter Care Teams Activities Director Relationship Specialty Start Date End Date Violeta Casillas DO PCP - General 09/29/16 09/15/21 documented as of this encounter
--- OUTSIDE RECORDS SUMMARY | 2024-07-09 07:24 | XMS_ITS | Encounter Summary ---
Author Organization [facility] Address [address] [facility] [address] [place] [address] Care Team Providers Care Hydraulic Rubbish Compactor Mechanic Name Role Phone Violeta Casillas Primary Care Provider + Encounter Details Date Type Department Care Team (Late st Contact Info) Description 04/15/2018 Telephone Medical [facility] [address] [place] [address] Ruth Hankins LPN Social History Tobacco Use Types Packs/Day Years Used Date Smoking Tobacco: Former Smokeless Tobacco: Former Alcohol Use Standard Drinks/Week Comments Yes 0 (1 standard drink = 0.6 oz pur e alcohol) Sex and Gender Information Value Date Recorded Sex Assigned at Not on file 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
--- OUTSIDE RECORDS SUMMARY | 2024-07-09 07:24 | XMS_ITS | Encounter Summary ---
Author Organization [facility] Address [address] [address] Care Team Providers Care Deicer Repairer Pneumatic Name Role Phone Violeta Casillas DO Primary Care Provider + Reason for Visit * Diagnostic Imaging (Routine) - Closed Specialty Diagnoses / Procedures Referred By Contac t Referred To Contact Cardiology Imaging Diagnoses Other chest pain Chronic atrial fibrillation (HCC) Abnormal ECG Procedures Transthoracic Echo Complete W Doppler/CF Hunter Shah MD Phone: tel: fax: [facility] Cardiology [address] [place] [phone] Phone: tel: fax: Referral ID Status Reason Start Date Expiration Date Visits Re quested Visits Authorized [id number] Closed 03/29/2018 10/08/2019 1 1 Encounter Details Date Type Department Care Team (Latest Contact Info) Description 04/02/2018 1:30 PM CDT Ancillary Procedure [facility] Cardiology [address] [place] [phone] Other chest pain; Chronic atrial fibrillation (CMS/HCC); Abnormal ECG Social History Tobacco Use Types Packs/Day Years Used Date Smoking Tobacco: Former Smokeless Tobacco: Former Alcohol Use Standard Drinks/Week Comments Yes 0 (1 standard drink = 0.6 oz pur e alcohol) Sex and Gender Information Value Date Recorded Sex Assigned at Not on file 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
--- OUTSIDE RECORDS SUMMARY | 2024-07-09 07:24 | XMS_ITS | Encounter Summary ---
Author Organization [facility] Address [address] [facility] [address] [place] [address] Care Team Providers Care Energy And Sustainability Manager Name Role Phone Violeta Casillas DO Primary Care Provider + Encounter Details Date Type Department Care Team (Late st Contact Info) Description 04/02/2018 Telephone [facility] [address] [place] [address] Violeta Casillas DO [address] [place] [address] Social History Tobacco Use Types Packs/Day Years Used Date Smoking Tobacco: Former Smokeless Tobacco: Former Alcohol Use Standard Drinks/Week Comments Yes 0 (1 standard drink = 0.6 oz pur e alcohol) Sex and Gender Information Value Date Recorded Sex Assigned at Not on file 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 Gender Identity Not on file Sexual Orientation Not on file documented as of this encounter Miscellaneous Notes * Telephone Encounter - Kendra Dickerson - 04/02/2018 1:45 PM CDT Pt stopped by office and he wants his pharmacy changed to [facility] here [place] since [facility] documented in this encounter Plan of Treatment Not on file documented as of this encounter Visit Diagnoses Not on filedocumented in this encounter Care Teams Energy And Sustainability Manager Relationship Specialty Start Date End Date Violeta Casillas DO PCP - General 09/29/16 09/15/21 documented as of this encounter
--- OUTSIDE RECORDS SUMMARY | 2024-07-09 07:24 | XMS_ITS | Encounter Summary ---
Author Organization [facility] Address [address] [facility] [address] [place] [address] Care Team Providers Care Curatorial Specialist Name Role Phone Violeta Casillas DO Primary Care Provider + Encounter Details Date Type Department Care Team (Late st Contact Info) Description 04/02/2018 Telephone [facility] Medical [facility] Cardiology [address] [place] [address] Hunter Shah MD [address] [place] [address] Social History Tobacco Use Types Packs/Day Years Used Date Smoking Tobacco: Former Smokeless Tobacco: Former Alcohol Use Standard Drinks/Week Comments Yes 0 (1 standard drink = 0.6 oz pur e alcohol) Sex and Gender Information Value Date Recorded Sex Assigned at Not on file 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
--- OUTSIDE RECORDS SUMMARY | 2024-07-09 07:24 | XMS_ITS | Encounter Summary ---
Author Organization [facility] Healthcare Address [address] [place] [address] Care Team Providers Care Liaison Officer Name Role Phone CasillasVioleta DO Primary Care Provider + Reason for Visit * Diagnostic Imaging (Routine) - Closed Specialty Diagnoses / Procedures Referred By Contac t Referred To Contact Diagnoses Other chest pain Chronic atrial fibrillation (HCC) Abnormal ECG Procedures NM MPI Stress Test Multiple Studies Samia Torrez MD Phone: tel: fax: [facility] [address] [place] [address] Referral ID Status Reason Start Date Expiration Date Visits Re quested Visits Authorized [id number] Closed 03/29/2018 10/08/2019 5 5 Encounter Details Date Type Department Care Team (Late st Contact Info) Description 04/09/2018 6:38 AM CDT - 04/09/2018 11:59 PM CDT Hospital Encounter [facility] CardioPulmonary [address] [place] [address] Samia Torrez MD [address] [place] [address] Discharge Disposition: Discharge to home or self care Social History Tobacco Use Types Packs/Day Years Used Date Smoking Tobacco: Former Smokeless Tobacco: Former Alcohol Use Standard Drinks/Week Comments Yes 0 (1 standard drink = 0.6 oz pur e alcohol) Sex and Gender Information Value Date Recorded Sex Assigned at Not on file 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 9.7 mCi Df30n-Uskuimknoar was injected, followed by rest myocardial SPECT imaging approximately 20 minutes later. The patient was then brought to the cardiopulmonary lab. Under continuous ECG, and blood pressure monitoring, the patient was injected with 0.4 mg of Lexiscan IV x 1 over 10 seconds per protocol. At peak stress, the patient was injected with 30.8 mCi Lr45f-Dfeppldjtil, followed by stress myocardial SPECT imaging approximately 30 minutes later. The patient overall tolerated the Lexiscan infusion well, without any immediate complications. Procedure Data: One day rest/stress protocol was used. Myoview injected at rest was 9.7 millicuries. Myoview injected at peak exercise was 30.8 millicuries. Resting HR 59 bpm. Resting BP: 149/82 mmHg. Predicted Maximal HR 138 bpm. Exercise Time: 00:05. Rate-Pressure Product: 35137 BPM*mmHg. METS achieved: 1.0. Reason for termination [...] 66%. Electronically Signed By: Samia Torrez MD, [facility] 2018-04-09 12:58:46 CDT CC: CC: Procedure Note Samia Torrez MD - 04/09/[address] [address] Phone - [phone] MPI Imaging Report Patient Name: NOÉ COWAN JUNIORPatient ID: [id number] : [id number] Date: 04/09/2018 6:52:54 AM Gender: MAccession #: [id number] Tech: Location: Ref.Physician: Reese TORREZ(Cm): 72 BSA: [...] lab in a fasting,nonsedated fashion. 9.7 mCi Ou98r-Utcbihfbyrq was injected, followed by rest myocardial SPECTimaging approximately 20 minutes later. The patient was then brought to thecardiopulmonary lab. Under continuous ECG, and blood pressure monitoring, the patient wasinjected with 0.4 mg of Lexiscan IV x 1 over 10 seconds per protocol. At peak stress, thepatient was injected with 30.8 mCi Lw83j-Yrxwtfikkxz, followed by stress myocardial SPECTimaging approximately 30 minutes later. The patient overall tolerated the Lexiscaninfusion well, without any immediate complications. Procedure Data: One day rest/stress protocol was used. Myoview injected at rest was 9.7millicuries. Myoview injected at peak exercise was 30.8 millicuries. Resting HR 59 bpm.Resting BP: 149/82 mmHg. Predicted Maximal HR 138 bpm. Exercise Time: 00:05.Rate-Pressure Product: 30515 BPM*mmHg. METS achieved: 1.0. Reason for termination [...] 66%. Electronically Signed By: Samia Torrez MD, [facility] 2018-04-09 12:58:46 CDT CC: CC: us Samia [...] mg documented in this encounter Care Teams Liaison Officer Relationship Specialty Start Date End Date Violeta Casillas DO PCP - General 09/29/16 09/15/21 documented as of this encounter
--- OUTSIDE RECORDS SUMMARY | 2024-07-09 07:24 | XMS_ITS | Encounter Summary ---
Author Organization [facility] Healthcare Address [address] [place] [address] Care Team Providers Care Breastfeeding Peer Counselor Name Role Phone Violeta Casillas DO Primary Care Provider + Reason for Referral * Diagnostic Imaging (Routine) - Closed Specialty Diagnoses / Procedures Referred By Ignacia manzanares Referred To Contact Diagnoses Other chest pain Chronic atrial fibrillation (HCC) Abnormal ECG Procedures NM MPI Stress Test Multiple Studies Samia Torrez MD Phone: tel: fax: [address] [phone] Referral ID Status Reason Start Date Expiration Date Visits Re quested Visits Authorized [id number] Closed 03/29/2018 10/08/2019 5 5 Reason for Visit * Diagnostic Imaging (Routine) - Closed Specialty Diagnoses / Procedures Referred By Ignacia manzanares Referred To Contact Diagnoses Other chest pain Chronic atrial fibrillation (HCC) Abnormal ECG Procedures NM MPI Stress Test Multiple Studies Samia oTrrez MD Phone: tel: fax: [address] [phone] Referral ID Status Reason Start Date Expiration Date Visits Re quested Visits Authorized [id number] Closed 03/29/2018 10/08/2019 5 5 Encounter Details Date Type Department Care Team (Late st Contact Info) Description 04/09/2018 6:29 AM CDT - 04/09/2018 6:37 AM CDT Hospital Encounter [facility] Imaging Services [address] [place] [phone] Samia Torrez MD [address] [place] [address] Other chest pain; Chronic atrial fibrillation (CMS/HCC); [...] on file 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 9.7 mCi Nq48l-Uqcgrpqooex was injected, followed by rest myocardial SPECT imaging approximately 20 minutes later. The patient was then brought to the cardiopulmonary lab. Under continuous ECG, and blood pressure monitoring, the patient was injected with 0.4 mg of Lexiscan IV x 1 over 10 seconds per protocol. At peak stress, the patient was injected with 30.8 mCi He18d-Fvdsrucuhcg, followed by stress myocardial SPECT imaging approximately 30 minutes later. The patient overall tolerated the Lexiscan infusion well, without any immediate complications. Procedure Data: One day rest/stress protocol was used. Myoview injected at rest was 9.7 millicuries. Myoview injected at peak exercise was 30.8 millicuries. Resting HR 59 bpm. Resting BP: 149/82 mmHg. Predicted Maximal HR 138 bpm. Exercise Time: 00:05. Rate-Pressure Product: 58215 BPM*mmHg. METS achieved: 1.0. Reason for termination [...] Procedure Note Samia Torrez MD - 04/09/[address] [address] Phone - [phone] MPI Imaging Report Patient Name: NOÉ COWAN JUNIORPatient ID: [id number] : [id number] Date: 04/09/2018 6:52:54 AM Gender: MAccession #: [id number] Tech: Location: Ref.Physician: Reese TORREZ(Cm): 72 BSA: [...] lab in a fasting,nonsedated fashion. 9.7 mCi Qo66h-Wvwibdfsbtf was injected, followed by rest myocardial SPECTimaging approximately 20 minutes later. The patient was then brought to thecardiopulmonary lab. Under continuous ECG, and blood pressure monitoring, the patient wasinjected with 0.4 mg of Lexiscan IV x 1 over 10 seconds per protocol. At peak stress, thepatient was injected with 30.8 mCi Bx64p-Vrmcwqfxnjv, followed by stress myocardial SPECTimaging approximately 30 minutes later. The patient overall tolerated the Lexiscaninfusion well, without any immediate complications. Procedure Data: One day rest/stress protocol was used. Myoview injected at rest was 9.7millicuries. Myoview injected at peak exercise was 30.8 millicuries. Resting HR 59 bpm.Resting BP: 149/82 mmHg. Predicted Maximal HR 138 bpm. Exercise Time: 00:05.Rate-Pressure Product: 73874 BPM*mmHg. METS achieved: 1.0. Reason for termination [...] 66%. Electronically Signed By: Samia Torrez MD, [facility] 2018-04-09 12:58:46 CDT CC: CC: Samia [...] 04/09/2018 documented in this encounter Care Teams Breastfeeding Peer Counselor Relationship Specialty Start Date End Date Violeta Casillas DO PCP - General 09/29/16 09/15/21 documented as of this encounter
--- OUTSIDE RECORDS SUMMARY | 2024-07-09 07:24 | XMS_ITS | Encounter Summary ---
Author Organization [facility] Medical Group Address [address] [facility] [address] [place] [address] Care Team Providers Care Credit Review Officer Name Role Phone Violeat Casillas DO Primary Care Provider + Reason for Visit * Reason Onset Date Comments Test Results 04/09/2018 nuclear stress t est Encounter Details Date Type Department Care Team (Late st Contact Info) Description 04/09/2018 Telephone Erick Pack Worker Supervisor [address] [place] [address] Rubén Conklin Test Results (nuclear stress test) Social History Tobacco Use Types Packs/Day Years Used Date Smoking Tobacco: Former Smokeless Tobacco: Former Alcohol Use Standard Drinks/Week Comments Yes 0 (1 standard drink = 0.6 oz pur e alcohol) Sex and Gender Information Value Date Recorded Sex Assigned at Not on file 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
--- OUTSIDE RECORDS SUMMARY | 2024-07-09 07:24 | XMS_ITS | Encounter Summary ---
Author Organization [facility] Medical Group Address [address] [address] Care Team Providers Care Research And Development Researcher Name Role Phone Violeta Casillas DO Primary Care Provider + Encounter Details Date Type Department Care Team (Late st Contact Info) Description 03/13/2018 Telephone Medical [facility] [address] [place] [address] Ruth Hankins LPN Social History Tobacco Use Types Packs/Day Years Used Date Smoking Tobacco: Former Smokeless Tobacco: Former Alcohol Use Standard Drinks/Week Comments Yes 0 (1 standard drink = 0.6 oz pur e alcohol) Sex and Gender Information Value Date Recorded Sex Assigned at Not on file 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
--- OUTSIDE RECORDS SUMMARY | 2024-07-09 07:24 | XMS_ITS | Encounter Summary ---
Author Organization [facility] Medical Group Address [address] [address] Care Team Providers Care Shredding Floor Equipment Operator Name Role Phone Violeta Casillas DO Primary Care Provider + Reason for Referral * Diagnostic Imaging (Routine) - Closed Specialty Diagnoses / Procedures Referred By Ignacia t Referred To Contact Diagnoses Other chest pain Chronic atrial fibrillation (HCC) Abnormal ECG Procedures NM MPI Stress Test Multiple Studies Samia Torrez MD Phone: tel: fax: [address] [phone] Referral ID Status Reason Start Date Expiration Date Visits Re quested Visits Authorized [id number] Closed 03/29/2018 10/08/2019 5 5 * Diagnostic Imaging (Routine) - Closed Specialty Diagnoses / Procedures [facility] Referred To Contact Cardiology Imaging Diagnoses Other chest pain Chronic atrial fibrillation (HCC) Abnormal ECG Procedures Transthoracic Echo Complete W Doppler/CF Samia Torrez MD Phone: tel: fax: [facility] Medical [facility] Cardiology [address] [place] [phone] Phone: tel: fax: Referral ID Status Reason Start Date Expiration Date Visits Re quested Visits Authorized [id number] Closed 03/29/2018 10/08/2019 1 1 Reason for Visit * Reason Comments Atrial Fibrillation Chest Pain Encounter Details Date Type Department Care Team (Late st Contact Info) Description 03/29/2018 1:30 PM CDT Office Visit [facility] [address] [place] [address] Samia Torrez MD [address] [place] [address] [place] [address] Other chest pain (Primary Dx); Chronic atrial fibrillation (CMS/HCC); Pure hypercholesterolemia; Abnormal ECG Social History Tobacco Use Types Packs/Day Years Used Date Smoking Tobacco: Former Smokeless Tobacco: Former Alcohol Use Standard Drinks/Week Comments Yes 0 (1 standard drink = 0.6 oz pur e alcohol) Sex and Gender Information Value Date Recorded Sex Assigned at Not on file 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 9.7 mCi [id number]-Dffshoprmbc was injected, followed by rest myocardial SPECT imaging approximately 20 minutes later. The patient was then brought to the cardiopulmonary lab. Under continuous ECG, and blood pressure monitoring, the patient was injected with 0.4 mg of Lexiscan IV x 1 over 10 seconds per protocol. At peak stress, the patient was injected with 30.8 mCi [id number]-Hkzqbxcovtu, followed by stress myocardial SPECT imaging approximately 30 minutes later. The patient overall tolerated the Lexiscan infusion well, without any immediate complications. Procedure Data: One day rest/stress protocol was used. Myoview injected at rest was 9.7 millicuries. Myoview injected at peak exercise was 30.8 millicuries. Resting HR 59 bpm. Resting BP: 149/82 mmHg. Predicted Maximal HR 138 bpm. Exercise Time: 00:05. Rate-Pressure Product: 06647 BPM*mmHg. METS achieved: 1.0. Reason for termination [...] 66%. Electronically Signed By: Samia Torrez MD, [facility] 2018-04-09 12:58:46 CDT CC: CC: Procedure Note Samia Torrez MD - 04/09/2018 [place] [id number] Phone - [phone] MPI Imaging Report Patient Name: NOÉ COWAN JUNIORPatient ID: [id number] : [id number] Date: 04/09/2018 6:52:54 AM Gender: MAccession #: [id number] Tech: Location: Ref.Physician: Reese TORREZ(Cm): 72 BSA: [...] lab in a fasting,nonsedated fashion. 9.7 mCi [id number]-Xolagzyeqei was injected, followed by rest myocardial SPECTimaging approximately 20 minutes later. The patient was then brought to thecardiopulmonary lab. Under continuous ECG, and blood pressure monitoring, the patient wasinjected with 0.4 mg of Lexiscan IV x 1 over 10 seconds per protocol. At peak stress, thepatient was injected with 30.8 mCi [id number]-Tpjvggrzswb, followed by stress myocardial SPECTimaging approximately 30 minutes later. The patient overall tolerated the Lexiscaninfusion well, without any immediate complications. Procedure Data: One day rest/stress protocol was used. Myoview injected at rest was 9.7millicuries. Myoview injected at peak exercise was 30.8 millicuries. Resting HR 59 bpm.Resting BP: 149/82 mmHg. Predicted Maximal HR 138 bpm. Exercise Time: 00:05.Rate-Pressure Product: 99378 BPM*mmHg. METS achieved: 1.0. Reason for termination [...] 66%. Electronically Signed By: Samia Torrez MD, [facility] 2018-04-09 12:58:46 CDT CC: CC: us Samia [...] (EKG) documented in this encounter Care Teams Shredding Floor Equipment Operator Relationship Specialty Start Date End Date Violeta Casillas DO PCP - General 09/29/16 09/15/21 documented as of this encounter
--- OUTSIDE RECORDS SUMMARY | 2024-07-09 07:24 | XMS_ITS | Encounter Summary ---
Author Organization [facility] Medical Group Address [address] [address] Care Team Providers Care Machinery Mover Name Role Phone Violeta Casillas DO Primary Care Provider + Reason for Visit * Reason Comments Immunizations Flu shot Encounter Details Date Type Department Care Team (Latest Contact Info) Description 03/29/2018 2:45 PM CDT Clinical Support [place] [id number] [place] [phone] Encounter for administration of vaccine (Primary Dx) Social History Tobacco Use Types Packs/Day Years Used Date Smoking Tobacco: Former Smokeless Tobacco: Former Alcohol Use Standard Drinks/Week Comments Yes 0 (1 standard drink = 0.6 oz pur e alcohol) Sex and Gender Information Value Date Recorded Sex Assigned at Not on file 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
--- OUTSIDE RECORDS SUMMARY | 2024-07-09 07:25 | XMS_ITS | Encounter Summary ---
Author Organization [facility] Medical Group Address [address] [facility] [address] [place] [address] Care Team Providers Care Etl Software Engineer Name Role Phone Violeta Casillas DO Primary Care Provider + Encounter Details Date Type Department Care Team (Late st Contact Info) Description 03/12/2018 Telephone [facility] [address] [place] [address] Violeta Casillas DO [address] [place] [address] Social History Tobacco Use Types Packs/Day Years Used Date Smoking Tobacco: Former Smokeless Tobacco: Former Alcohol Use Standard Drinks/Week Comments Yes 0 (1 standard drink = 0.6 oz pur e alcohol) Sex and Gender Information Value Date Recorded Sex Assigned at Not on file 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 The paper is saying the last time he called was 02/05/18. Pt did not answer. I left a vm. documented in this encounter Plan of Treatment Not on file documented as of this encounter Visit Diagnoses Not on filedocumented in this encounter Care Teams Etl Software Engineer Relationship Specialty Start Date End Date Violeta Casillas DO PCP - General 09/29/16 09/15/21 documented as of this encounter
--- OUTSIDE RECORDS SUMMARY | 2024-07-09 07:25 | XMS_ITS | Encounter Summary ---
Author Organization [facility] Medical Group Address [address] [address] Care Team Providers Care Cost Control Supervisor Name Role Phone Violeta Casillas DO Primary Care Provider + Reason for Referral * (Routine) - Closed Specialty Diagnoses / Procedures Referred By Contac t Referred To Contact Diagnoses Other chest pain Procedures ECG 12 lead Violeta Casillas DO Phone: tel: fax: [address] [phone] Referral ID Status Reason Start Date Expiration Date Visits Re quested Visits Authorized [id number] Closed 03/12/2018 09/21/2019 1 1 * Diagnostic Imaging (Routine) - Closed Specialty Diagnoses / Procedures Referred By Contac t Referred To Contact Diagnoses Chronic obstructive pulmonary disease with acute exacerbation (HCC) Other chest pain Chronic atrial fibrillation (HCC) Procedures XR Chest Pa Lateral 2 Views Violeta Casillas DO Phone: tel: fax: [address] [phone] Referral ID Status Reason Start Date Expiration Date Visits Re quested Visits Authorized [id number] Closed 03/12/2018 09/21/2019 1 1 Reason for Visit * Reason Comments Cough Nasal Congestion Encounter Details Date Type Department Care Team ([facility] st Contact Info) Description 03/12/2018 9:30 AM CDT Office Visit Medical [facility] [address] [place] [phone] Violeta Casillas DO [address] [place] [address] Chronic obstructive pulmonary disease with acute exacerbation [...] on file 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 No hx of [place] or CAD. No palpitations with it. He [...] ECG 12 lead; Future Chronic atrial fibrillation ([facility]) Assessment & Plan: Consult cardiology. Orders: - [...] should this order be performed? Answer: [facility] [[id number]] ??? ECG 12 lead Standing Status: Future Number of Occurrences: 1 Standing Expiration Date: 03/12/2019 Order Specific Question: Where should this order be performed? Answer: [facility] [148] Order Specific Question: Reason / Symptom [...] 10:26 AM CDT) Patient age 82 years [facility] Interpretation Text SINUS RHYTHM WITH SINUS ARRHYTHMIAINDETERMINATE AXISRIGHT BUNDLE BRANCH BLOCKSEPTAL MYOCARDIAL INFARCTION , PROBABLY OLDABNORMAL ECGNO PREVIOUS TRACING [facility] Comment:Physician Interprete r Dr. Cricket Millan Ventricular Rate EKG/Min 85 /min [facility] P Wave Duration 104 ms [facility] QRS-Interval (MSEC) 140 ms [facility] NM-Interval (MSEC) 124 ms [facility] QT Interval 385 ms [facility] QTc 428 ms [facility] QTC Interval ms [facility] P [place] 84 deg [facility] QRS [place] 75 deg [facility] T [place] 61 deg [facility] 03/12/2018 10:3 1 AM CDT us Violeta Casillas DO ECG ORDERABLES Final Re sult [facility] * XR Chest Pa Lateral 2 Views [...] fibrillation documented in this encounter Care Teams Cost Control Supervisor Relationship Specialty Start Date End Date Violeta Casillas DO PCP - General 09/29/16 09/15/21 documented as of this encounter
--- OUTSIDE RECORDS SUMMARY | 2024-07-09 07:25 | XMS_ITS | Encounter Summary ---
Author Organization [facility] Address [address] [place] [address] Care Team Providers Care Accounting Tutor Name Role Phone Violeta Casillas DO Primary Care Provider + Reason for Referral * Diagnostic Imaging (Routine) - Closed Specialty Diagnoses / Procedures Referred By Ignacia manzanares Referred To Contact Diagnoses Chronic obstructive pulmonary disease with acute exacerbation (HCC) Other chest pain Chronic atrial fibrillation (HCC) Procedures XR Chest Pa Lateral 2 Views Violeta Casillas DO Phone: tel: fax: [address] [phone] Referral ID Status Reason Start Date Expiration Date Visits Re quested Visits Authorized [id number] Closed 03/12/2018 09/21/2019 1 1 Reason for Visit * Diagnostic Imaging (Routine) - Closed Specialty Diagnoses / Procedures Referred By Ignacia manzanares Referred To Contact Diagnoses Chronic obstructive pulmonary disease with acute exacerbation (HCC) Other chest pain Chronic atrial fibrillation (HCC) Procedures XR Chest Pa Lateral 2 Views Violeta Casillas DO Phone: tel: fax: [address] [phone] Referral ID Status Reason Start Date Expiration Date Visits Re quested Visits Authorized [id number] Closed 03/12/2018 09/21/2019 1 1 Encounter Details Date Type Department Care Team (Latest Contact Info) Description 03/12/2018 10:17 AM CDT - 03/12/2018 10:25 AM CDT Hospital Encounter [facility] Services [address] [place] [phone] Violeta Casillas DO [address] [place] [address] Chronic obstructive pulmonary disease with acute exacerbation [...] on file Legal 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
--- OUTSIDE RECORDS SUMMARY | 2024-07-09 07:25 | XMS_ITS | Encounter Summary ---
Author Organization [facility] Medical Group Address [address] [address] Care Team Providers Care Ciaio Lumite Injector Name Role Phone Violeta Casillas DO Primary Care Provider + Encounter Details Date Type Department Care Team (Late st Contact Info) Description 11/07/2017 Telephone Medical [facility] [address] [place] [address] Ruth Hankins LPN Social History Tobacco Use Types Packs/Day Years Used Date Smoking Tobacco: Former Alcohol Use Standard Drinks/Week Comments Yes 0 (1 standard drink = 0.6 oz pur e alcohol) Sex and Gender Information Value Date Recorded Sex Assigned at Not on file 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
--- OUTSIDE RECORDS SUMMARY | 2024-07-09 07:25 | XMS_ITS | Encounter Summary ---
Author Organization [facility] Medical Group Address [address] [facility] [address] [place] [address] Care Team Providers Care Product Management Analyst Name Role Phone Violeta Casillas DO Primary Care Provider + Reason for Visit * Reason Comments Follow-up labs, refused vaccin es Encounter Details Date Type Department Care Team (Late st Contact Info) Description 12/17/2017 1:15 PM CDT [facility] Visit [facility] [place] [address] Violeta Casillas DO [address] [place] [address] Chronic idiopathic constipation (Primary Dx); [...] on file Legal 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 As no Triglycerides testing was ordered, interpret results with caution. Desirable range <100 mg/dL for primary prevention; ?? <70 mg/dL for patients with CHD or diabetic patients with > or = 2 CHD risk factors. Blood specimen (specimen) 06/11/2018 8:20 AM FUEL TECHNICIAN 06/11/2018 8:38 PM FUEL TECHNICIAN Narrative Resulting Agency Comment Performing Organization Information: ?Site ID: ANA ?Name: [facility] ?Address: [address] [address] [id number] ?Director: Gomez Sánchez D.O., MPH us Violeta Casillas DO LAB BLOOD ORDERABLES Fin al Result [facility] [place] A[place] * (ABNORMAL) Comprehensive metabolic panel (06/11/2018 8:20 AM FUEL TECHNICIAN) Pathologist [facility] Glucose 104(H) 65 - 99 mg/dL [facility] [place] Comment: ? Fasting [...] approximately 13% higher for people identified as -Ecuadorean. eGFR NON-AFR. FILIPINO 62 > OR = 60 mL/min/1 .73m2 [...] [place] Blood specimen (specimen) 06/11/2018 8:20 AM FUEL TECHNICIAN 06/11/2018 8:38 PM FUEL TECHNICIAN Narrative Resulting Agency Comment Performing Organization Information: ?Site ID: ANA ?Name: [facility] ?Address: [facility] [place] [id number] ?Director: Gomez Sánchez D.O., MPH us Violeta [...] documented as of this encounter Care Teams Product Management Analyst Relationship Specialty Start Date End Date Violeta Casillas DO PCP - General 09/29/16 09/15/21 documented as of this encounter
--- OUTSIDE RECORDS SUMMARY | 2024-07-09 07:25 | XMS_ITS | Encounter Summary ---
Author Organization [facility] Medical Group Address [address] [facility] [address] [place] [address] Care Team Providers Care Trader Name Role Phone Violeta Casillas DO Primary Care Provider + Encounter Details Date Type Department Care Team (Late st Contact Info) Description 01/07/2018 Telephone Medical [facility] [address] [place] [address] Ruth Hankins LPN Social History Tobacco Use Types Packs/Day Years Used Date Smoking Tobacco: Former Smokeless Tobacco: Former Alcohol Use Standard Drinks/Week Comments Yes 0 (1 standard drink = 0.6 oz pur e alcohol) Sex and Gender Information Value Date Recorded Sex Assigned at Not on file Legal 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
--- OUTSIDE RECORDS SUMMARY | 2024-07-09 07:25 | XMS_ITS | Encounter Summary ---
Author Organization [facility] Medical Group Address [address] [address] Care Team Providers Care Shrimper Name Role Phone Violeta Casillas DO Primary Care Provider + Encounter Details Date Type Department Care Team (Late st Contact Info) Description 12/10/2017 9:00 AM CDT Lab [facility] [address] [facility] Social History Tobacco Use Types Packs/Day Years Used Date Smoking Tobacco: Former Alcohol Use Standard Drinks/Week Comments Yes 0 (1 standard drink = 0.6 oz pur e alcohol) Sex and Gender Information Value Date Recorded Sex Assigned at Not on file 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
--- OUTSIDE RECORDS SUMMARY | 2024-07-09 07:25 | XMS_ITS | Encounter Summary ---
Author Organization [facility] Healthcare Address [address] [place] [address] Care Team Providers Care Assistant Press Operator Offset Name Role Phone Violeta Casillas DO Primary Care Provider + Reason for Referral * (Routine) - Closed Specialty Diagnoses / Procedures Referred By Contac t Referred To Contact Diagnoses Other chest pain Procedures ECG 12 lead Violeta Casillas DO Phone: tel: fax: [address] [phone] Referral ID Status Reason Start Date Expiration Date Visits Re quested Visits Authorized [id number] Closed 03/12/2018 09/21/2019 1 1 Reason for Visit * (Routine) - Closed Specialty Diagnoses / Procedures Referred By Contac t Referred To Contact Diagnoses Other chest pain Procedures ECG 12 lead Violeta Casillas DO Phone: tel: fax: [address] [phone] Referral ID Status Reason Start Date Expiration Date Visits Re quested Visits Authorized [id number] Closed 03/12/2018 09/21/2019 1 1 Encounter Details Date Type Department Care Team (Latest Contact Info) Description 03/12/2018 10:26 AM CDT - 03/12/2018 11:59 PM CDT Hospital Encounter [facility] [address] [place] [address] Violeta Casillas, DO [address] [place] [address] Other chest pain Discharge Disposition: Discharge to home or self care Social History Tobacco Use Types Packs/Day Years Used Date Smoking Tobacco: Former Smokeless Tobacco: Former Alcohol Use Standard Drinks/Week Comments Yes 0 (1 standard drink = 0.6 oz pur e alcohol) Sex and Gender Information Value Date Recorded Sex Assigned at Not on file Legal 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 Cricket Millan Ventricular Rate EKG/Min 85 /min [facility] P Wave Duration 104 ms [facility] QRS-Interval (MSEC) 140 ms [facility] AK-Interval (MSEC) 124 ms [facility] QT Interval 385 ms [facility] QTc 428 ms [facility] QTC Interval ms [facility] P [place] 84 deg [facility] QRS [place] 75 deg [facility] T [place] 61 deg [facility] 03/12/2018 10:3 1 AM CDT us Violeta Casillas DO ECG ORDERABLES Final Re sult [facility] documented in this encounter Visit Diagnoses Diagnosis Other chest pain documented in this encounter Care Teams Assistant Press Operator Offset Relationship Specialty Start Date End Date Violeta Casillas DO PCP - General 09/29/16 09/15/21 documented as of this encounter
--- OUTSIDE RECORDS SUMMARY | 2024-07-09 07:26 | XMS_ITS | Encounter Summary ---
Author Organization [facility] Medical Group Address [address] [facility] [address] [place] [address] Care Team Providers Care Family Preservation Officer Name Role Phone Violeta Casillas DO Primary Care Provider + Encounter Details Date Type Department Care Team (Late st Contact Info) Description 11/07/2017 Telephone Medical [facility] [address] [place] [address] Ruth Hankins LPN Social History Tobacco Use Types Packs/Day Years Used Date Smoking Tobacco: Former Alcohol Use Standard Drinks/Week Comments Yes 0 (1 standard drink = 0.6 oz pur e alcohol) Sex and Gender Information Value Date Recorded Sex Assigned at Not on file 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
--- OUTSIDE RECORDS SUMMARY | 2024-07-09 07:26 | XMS_ITS | Encounter Summary ---
Author Organization [facility] Medical Group Address [address] [address] Care Team Providers Care Pipe Wrapping Machine Operator Name Role Phone Violeta Casillas DO Primary Care Provider + Encounter Details Date Type Department Care Team (Late st Contact Info) Description 03/26/2017 Telephone Medical [facility] [address] [place] [address] Chapin Elizabeth RN Social History Tobacco Use Types Packs/Day Years Used Date Smoking Tobacco: Former Alcohol Use Standard Drinks/Week Comments Yes 0 (1 standard drink = 0.6 oz pur e alcohol) Sex and Gender Information Value Date Recorded Sex Assigned at Not on file 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
--- OUTSIDE RECORDS SUMMARY | 2024-07-09 07:26 | XMS_ITS | Encounter Summary ---
Author Organization [facility] Medical Group Address [address] [address] Care Team Providers Care Make Up Editor Name Role Phone Violeta Casillas DO Primary Care Provider + Reason for Visit * Reason Onset Date Comments Test Results 02/06/2017 med change Encounter Details Date Type Department Care Team (Late st Contact Info) Description 02/06/2017 Telephone Medical [facility] [address] [place] [address] Lesley Grant Test Results (med change ) Social History Tobacco Use Types Packs/Day Years Used Date Smoking Tobacco: Former Alcohol Use Standard Drinks/Week Comments Yes 0 (1 standard drink = 0.6 oz pur e alcohol) Sex and Gender Information Value Date Recorded Sex Assigned at Not on file 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
--- OUTSIDE RECORDS SUMMARY | 2024-07-09 07:26 | XMS_ITS | Encounter Summary ---
Author Organization [facility] Medical Group Address [address] [address] Care Team Providers Care Poultry Debeaker Name Role Phone Violeta Casillas DO Primary Care Provider + Encounter Details Date Type Department Care Team (Late st Contact Info) Description 10/08/2017 Telephone Medical [facility] [address] [place] [address] Ruth Hankins LPN Social History Tobacco Use Types Packs/Day Years Used Date Smoking Tobacco: Former Alcohol Use Standard Drinks/Week Comments Yes 0 (1 standard drink = 0.6 oz pur e alcohol) Sex and Gender Information Value Date Recorded Sex Assigned at Not on file 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
--- OUTSIDE RECORDS SUMMARY | 2024-07-09 07:26 | XMS_ITS | Encounter Summary ---
Author Organization [facility] Medical Group Address [address] [facility] [address] [place] [address] Care Team Providers Care Horticultural Nursery Assistant Name Role Phone Violeta Casillas DO Primary Care Provider + Encounter Details Date Type Department Care Team (Late st Contact Info) Description 09/13/2017 Telephone [facility] [address] [place] [address] Violeta Casillas DO [address] [place] [address] Social History Tobacco Use Types Packs/Day Years Used Date Smoking Tobacco: Former Alcohol Use Standard Drinks/Week Comments Yes 0 (1 standard drink = 0.6 oz pur e alcohol) Sex and Gender Information Value Date Recorded Sex Assigned at Not on file 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
--- OUTSIDE RECORDS SUMMARY | 2024-07-09 07:26 | XMS_ITS | Encounter Summary ---
Author Organization [facility] Medical Group Address [address] [address] Care Team Providers Care Regulatory Attorney Name Role Phone Violeta Casillas DO Primary Care Provider + Reason for Visit * Reason Comments Follow-up labs Encounter Details Date Type Department Care Team (Latest Contact Info) Description 06/18/2017 1:15 PM CHIEF EXECUTIVE OR MANAGING DIRECTOR [facility] [address] [place] [address] Violeta Casillas DO [address] [place] [address] Pure hypercholesterolemia (Primary Dx); Flu vaccine need; [...] file Legal Sex Male 3:40 AM CHIEF EXECUTIVE OR MANAGING DIRECTOR Gender Identity Not on file Sexual Orientation Not on file documented as of this encounter Last Filed Vital Signs Vital Sign Reading Time Taken Comments Blood Pressure 132/80 06/18/2017 1:00 PM CHIEF EXECUTIVE OR MANAGING DIRECTOR Pulse 86 06/18/2017 1:00 PM CHIEF EXECUTIVE OR MANAGING DIRECTOR Temperature - - Respiratory Rate 18 06/18/2017 1:00 PM CHIEF EXECUTIVE OR MANAGING DIRECTOR Oxygen Saturation 95% 06/18/2017 1:00 PM CHIEF EXECUTIVE OR MANAGING DIRECTOR Inhaled Oxygen Concentration - - Weight 72.6 kg (160 lb) 06/18/2017 1:00 PM CHIEF EXECUTIVE OR MANAGING DIRECTOR Height 182.9 cm (6' 0.01 ) 06/18/2017 1:00 PM CS T Body Mass Index 21.7 06/18/2017 1:00 PM CHIEF EXECUTIVE OR MANAGING DIRECTOR documented in this encounter Progress Notes * [...] Specialty: Dermatology Number of Visits Requested: 1 F EXECUTIVE OR MANAGING DIRECTOR documented in this encounter Miscellaneous Notes * Assessment & Plan Note - Violeta Casillas DO - 06/18/2017 1:27 PM CHIEF EXECUTIVE OR MANAGING DIRECTOR Associated Problem(s): Chronic atrial fibrillation (HCC) Chronic & stable on meds. Continue current treatment. INRs are stable. F EXECUTIVE OR MANAGING DIRECTOR * Assessment & Plan Note - Violeta Casillas DO - 06/18/2017 1:26 PM CHIEF EXECUTIVE OR MANAGING DIRECTOR Associated Problem(s): Recurrent major depressive disorder (HCC) Chronic & stable on meds. Continue current treatment. F EXECUTIVE OR MANAGING DIRECTOR * Assessment & Plan Note - Violeta Casillas DO - 06/18/2017 1:26 PM CHIEF EXECUTIVE OR MANAGING DIRECTOR Associated Problem(s): Prediabetes Please cut down on sweets. F EXECUTIVE OR MANAGING DIRECTOR * Assessment & Plan Note - Violeta Casillas DO - 06/18/2017 1:26 PM CHIEF EXECUTIVE OR MANAGING DIRECTOR Associated Problem(s): Pure hypercholesterolemia Chronic & stable on meds. Continue current treatment. 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 He also may have other AKs present. F EXECUTIVE OR MANAGING DIRECTOR * Addendum Note - Donte Galdamez CLT [...] of LDL-C. Sin PERALES et al. SONA. 2013;310(71): 6852-1703 (http://education.Atavist/faq/OJZ178) Chol/HDL ratio 3.0 <5.0 (calc) [facility] [place] Non-HDL, (LDL+VLDL) 87 <130 mg/dL (calc) [facility] Comment: For patients with diabetes plus 1 major ASCVD risk factor, treating to a non-HDL-C goal of <100 mg/dL (LDL-C of <70 mg/dL) is considered a therapeutic option. Blood specimen (specimen) 12/10/2017 9:25 AM CDT 12/11/2017 5:41 AM CDT Narrative Resulting Agency Comment Performing Organization Information: ?Site ID: [place] ?Name: [facility] ?Address: [address] [address] ?Director: Gomez Sánchez D.O., MPH us Violeta Casillas DO LAB BLOOD ORDERABLES Fin al Result [facility] [place] * (ABNORMAL) Comprehensive metabolic panel (12/10/2017 9:25 AM CDT) Glucose 106(H) 65 - 99 mg/dL [facility] Comment: ? Fasting reference interval For someone without known diabetes, a glucose value between 100 and 125 mg/dL is consistent with prediabetes and should be confirmed with a follow-up test. BUN 27(H) 7 - 25 mg/dL [facility] Creatinine 0.96 0.70 - 1.11 mg/dL [facility] Comment: For patients >49 years of age, the reference limit for Creatinine is approximately 13% higher for people identified as -Belgian. eGFR NON-AFR. SURINAMESE 73 > OR = 60 mL/min/1. 73m2 [facility] [place] EGFR 85 > OR = 60 mL/min/1. 73m2 [facility] [place] BUN/creat ratio 28(H) 6 - 22 (calc) [facility] [place] Sodium 141 135 - 146 mmol/L [facility] [place] Potassium, pl 4.0 3.5 [...] ALT (SGPT) 13 9 - 46 U/L [facility] [place] Blood specimen (specimen) 12/10/2017 9:25 AM CDT 12/11/2017 5:41 AM CDT Narrative Resulting Agency Comment Performing Organization Information: ?Site ID: [place] ?Name: [facility] ?Address: [address] [facility] [place] [phone] ?Director: Gomez Sánchez D.O., MPH Violeta Casillas DO LAB BLOOD ORDERABLES Fin al Result [facility] - [place] A[place] documented [...] 06/18/2017 documented in this encounter Care Teams Regulatory Attorney Relationship Specialty Start Date End Date Violeta Casillas DO PCP - General 09/29/16 09/15/21 documented as of this encounter
--- OUTSIDE RECORDS SUMMARY | 2024-07-09 07:26 | XMS_ITS | Encounter Summary ---
Author Organization [facility] Medical Group Address [address] [facility] [address] [place] [address] Care Team Providers Care Maintenance Worker Swimming Pool Name Role Phone Violeta Casillas DO Primary Care Provider + Reason for Visit * Reason Comments Follow-up tremors getting wors e Encounter Details Date Type Department Care Team (Late st Contact Info) Description 12/13/2016 2:15 PM CDT [facility] [address] [place] [address] Violeta Casillas DO [address] [place] [address] Recurrent major depressive disorder, remission [...] on file 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 No changes today 2. Chronic atrial fibrillation ([facility]/HCC) Assessment & Plan: INR waxes and wanes a lot so had discussion about eating a consistent diet. Continue warfarin and weekly INR checks. 3. Chronic obstructive pulmonary disease, unspecified COPD type ([facility]) Assessment & Plan: Patient refuses medications so [...] documented as of this encounter Care Teams Maintenance Worker Swimming Pool Relationship Specialty Start Date End Date Violeta Casillas DO PCP - General 09/29/16 09/15/21 documented as of this encounter
--- OUTSIDE RECORDS SUMMARY | 2024-07-09 07:26 | XMS_ITS | Encounter Summary ---
Author Organization [facility] Medical [facility] Address [address] [facility] [address] [place] [address] Care Team Providers Care Fellmongering Machine Operator Name Role Phone Violeta Casillas DO Primary Care Provider + Encounter Details Date Type Department Care Team (Late st Contact Info) Description 09/04/2017 Telephone Medical [facility] [address] [place] [address] Ruth Hankins LPN Social History Tobacco Use Types Packs/Day Years Used Date Smoking Tobacco: Former Alcohol Use Standard Drinks/Week Comments Yes 0 (1 standard drink = 0.6 oz pur e alcohol) Sex and Gender Information Value Date Recorded Sex Assigned at Not on file 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 Pt to keep same dosage of coumadin. Pt verbalized understanding. UATE ENGINEER documented in this encounter Plan of Treatment Not on file documented as of this encounter Visit Diagnoses Not on filedocumented in this encounter Care Teams Fellmongering Machine Operator Relationship Specialty Start Date End Date Violeta Casillas DO PCP - General 09/29/16 09/15/21 documented as of this encounter
--- OUTSIDE RECORDS SUMMARY | 2024-07-09 07:26 | XMS_ITS | Encounter Summary ---
Author Organization [facility] Medical Group Address [address] [facility] [address] [place] [address] Care Team Providers Care Rivet Bucker Name Role Phone Violeta Casillas DO Primary Care Provider + Encounter Details Date Type Department Care Team (Late st Contact Info) Description 10/08/2017 Telephone [facility] [address] [place] [phone] Violeta Casillas DO [address] [place] [address] Social History Tobacco Use Types Packs/Day Years Used Date Smoking Tobacco: Former Alcohol Use Standard Drinks/Week Comments Yes 0 (1 standard drink = 0.6 oz pur e alcohol) Sex and Gender Information Value Date Recorded Sex Assigned at Not on file Legal 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
--- OUTSIDE RECORDS SUMMARY | 2024-07-09 07:26 | XMS_ITS | Encounter Summary ---
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 Gender Identity Not on file Sexual Orientation Not on file documented as of this encounter Plan of Treatment Not on file documented as of this encounter Visit Diagnoses Not on filedocumented in this encounter Care Teams Commodity Trader Relationship Specialty Start Date End Date Violeta Casillas DO PCP - General 09/29/16 09/15/21 Spring Banerjee RN [address] [place], [place] [id number] Data Recovery Planner 05/07/20 12/29/20 Dayana Marina LCSW [address] [place] [address] Criminal Justice Program Director 05/10/20 05/25/20 documented as of this encounter
--- OUTSIDE RECORDS SUMMARY | 2024-07-09 07:26 | XMS_ITS | Encounter Summary ---
Author Organization [facility] Medical Group Address [address] [facility] [address] [place] [address] Care Team Providers Care Trade Economist Name Role Phone Violeta Casillas Primary Care Provider + Encounter Details Date Type Department Care Team (Late st Contact Info) Description 06/11/2017 8:15 AM SALES AND MARKETING MANAGER Lab Medical [facility] [address] [facility] Hyperlipidemia, unspecified hyperlipidemia type (Primary Dx) Social History Tobacco Use Types Packs/Day Years Used Date Smoking Tobacco: Former Alcohol Use Standard Drinks/Week Comments Yes 0 (1 standard drink = 0.6 oz pur e alcohol) Sex and Gender Information Value Date Recorded Sex Assigned at Not on file Legal Sex Male 3:40 AM SALES AND 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 MANAGER Gender Identity Not on file Sexual Orientation Not on file documented as of this encounter Plan of Treatment Not on file documented as of this encounter Procedures Procedure Name Priority Date/Time Associated Diagnosis Comments LIPID PANEL Routine 06/11/2017 8:24 AM SALES AND MARKETING MANAGER Hyperlipidemia, unspecified hyperlipidemia type COMPREHENSIVE METABOLIC PANEL Routine 06/11/2017 8:24 AM SALES AND MARKETING MANAGER Hyperlipidemia, unspecified hyperlipidemia type documented in this encounter Results * Lipid panel (06/11/2017 8:24 AM SALES AND MARKETING MANAGER) Cholesterol 133 <200 mg/dL [facility] - [...] LDL-C. Sin PERALES et al. SONA. 2013;310(19): 9162-5350 (http://education.Omek Interactive/faq/YYR449) Chol/HDL ratio 3.2 <5.0 (calc) [facility] [place] Non-HDL, (LDL+VLDL) 91 <130 mg/dL (calc) [facility] [place] Comment: For patients with diabetes plus 1 major ASCVD risk factor, treating to a non-HDL-C goal of <100 mg/dL (LDL-C of <70 mg/dL) is considered a therapeutic option. Blood specimen (specimen) 06/11/2017 8:24 AM SALES AND MARKETING MANAGER 06/12/2017 3:00 AM SALES AND MARKETING MANAGER Narrative Resulting Agency Comment Performing Organization Information: ?Site ID: [place] ?Name: [facility] ?Address: [address] [place] [address] [place] [address] ?Director: Gomez Sánchez D.O., MPH Violeta Casillas DO LAB BLOOD ORDERABLES Fin al Result [facility] [place] * (ABNORMAL) Comprehensive metabolic panel (06/11/2017 8:24 AM SALES AND MARKETING MANAGER) Glucose 115(H) 65 - 99 mg/dL [facility] Comment: ? Fasting reference interval For someone without known diabetes, a glucose value between 100 and 125 mg/dL is consistent with prediabetes and should be confirmed with a follow-up test. BUN 18 7 - 25 mg/dL [facility] Creatinine 1.00 0.70 - 1.11 mg/dL [facility] Comment: For patients >49 years of age, the reference limit for Creatinine is approximately 13% higher for people identified as -Bruneian. eGFR NON-AFR. [place] 70 > OR = 60 mL/min/1 .73m2 [facility] [place] EGFR 81 > OR = 60 mL/min/1 [...] [place] Blood specimen (specimen) 06/11/2017 8:24 AM SALES AND MARKETING MANAGER 06/12/2017 3:00 AM SALES AND MARKETING MANAGER Narrative Resulting Agency Comment Performing Organization Information: ?Site ID: [place] ?Name: [facility] ?Address: [address] [address] ?Director: Gomez Sánchez D.O., MPH us Violeta Casillas DO LAB BLOOD ORDERABLES Fin al Result [facility] [place] documented in this encounter Visit Diagnoses Diagnosis Hyperlipidemia, unspecified hyperlipidemia type- Primary documented in this encounter Care Teams Trade Economist Relationship Specialty Start Date End Date Violeta Casillas DO PCP - General 09/29/16 09/15/21 documented as of this encounter
--- OUTSIDE RECORDS SUMMARY | 2024-07-09 07:27 | XMS_ITS | Encounter Summary ---
Author Organization 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
--- OUTSIDE RECORDS SUMMARY | 2024-07-09 07:27 | XMS_ITS | Encounter Summary ---
Author Organization [facility] Address [address] [place] [address] Care Team Providers Care Coroner'S Juror Name Role Phone Violeta Casillas Primary Care Provider + Encounter Details Date Type Department Care Team (Late st Contact Info) Description 12/06/2016 8:35 AM CDT Lab Medical [facility] [address] 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 12/06/2016 8:00 AM CDT 12/07/2016 3:04 AM CDT Narrative Resulting Agency Comment Performing Organization Information: ?Site ID: ANA ?Name: [facility] ?Address: [address] [place] [address] [place] [address] ?Director: Gomez Sánchez D.O., MPH Violeta Casillas DO LAB BLOOD ORDERABLES Fin al Result Performing Organization Address [facility] Co de Phone Number [facility] [employer] [facility] Clive ANA * CHOL/HDLC RATIO (12/06/2016 8:00 AM CDT) Pathologist [facility] Chol/HDL ratio 3.0 < OR = 5.0 (calc) [facility] [employer] [facility] 12/06/2016 8:00 AM CDT 12/07/2016 3:04 AM CDT Narrative Resulting Agency Comment Performing Organization Information: ?Site ID: [id number] ?Name: [employer] ?Address: [address] [place] [address] [place] [address] ?Director: Gomez Sánchez D.O., MPH Violeta Casillas DO LAB BLOOD ORDERABLES Fin al Result Performing Organization Address City/[facility] Co de Phone Number [facility] [employer] ANA [place] ANA * LDL-Cholesterol (12/06/2016 8:00 AM CDT) LDL 80 <130 mg/dL (calc) [facility] - [facility]NA Comment: Desirable range <100 mg/dL for patients with CHD or diabetes and <70 mg/dL for diabetic patients with known heart disease. 12/06/2016 8:00 AM CDT 12/07/2016 3:04 AM CDT Narrative Resulting Agency Comment Performing Organization Information: ?Site ID: [place] ?Name: Shey Olivera ?Address: [facility] [place] [address] ?Director: Gomez Sánchez D.O. MPH Violeta Casillas DO LAB BLOOD ORDERABLES Fin al Result Performing Organization Address City/[facility]/ZIP Co de Phone Number ANA Scott * Triglycerides (12/06/2016 8:00 AM CDT) Triglycerides 90 <150 mg/dL [facility] PEREZ 12/06/2016 8:00 AM CDT 12/07/2016 3:04 AM CDT Narrative Resulting Agency Comment Performing Organization Information: ?Site ID: ANA ?Name: Shey Olivera ?Address: [facility] [place] [address] ?Director: Gomez Sánchez D.O. MPH Violeta Casillas DO LAB BLOOD ORDERABLES Fin al Result Performing Organization Address [facility] Co de Phone Number ANA Scott * Cholesterol, HDL (12/06/2016 8:00 AM CDT) HDL 48 > OR = 40 mg/dL [facility] PEREZ 12/06/2016 8:00 AM CDT 12/07/2016 3:04 AM CDT Narrative Resulting Agency Comment Performing Organization Information: ?Site ID: AAN ?Name: Shey Olivera ?Address: [facility] [place] [address] ?Director: Gomez Sánchez D.O. MPH Violeta Casillas DO LAB BLOOD ORDERABLES Fin al Result [facility] Watson * Cholesterol, total (12/06/2016 8:00 AM CDT) Cholesterol 146 125 - 200 mg/dL [facility] [place] 12/06/2016 8:00 AM CDT 12/07/2016 3:04 AM CDT Narrative Resulting Agency Comment Performing Organization Information: ?Site ID: [place] ?Name: [employer] ?Address: [facility] [place] [address] ?Director: Gomez Snáchez D.O. MPH Violeta Casillas DO LAB BLOOD ORDERABLES Fin al Result Performing Organization Address City/[facility] Co de Phone Number [facility] [place] * (ABNORMAL) Comprehensive metabolic panel (12/06/2016 8:00 AM CDT) Glucose 111(H) 65 - 99 mg/dL [facility] [place] Comment: ? Fasting reference interval For someone [...] higher for people identified as -Citizen Of [place]. eGFR NON-AFR. MARTINIQUAIS 80 > OR = 60 mL/min/1 .73m2 [...] ?Site ID: ANA ?Name: [facility] ?Address: [facility] [place] [address] ?Director: Gomez Sánchez D.O., MPH us Violeta Casillas DO LAB BLOOD ORDERABLES Fin al Result [facility] [place] documented in this encounter Visit Diagnoses Diagnosis Other and unspecified hyperlipidemia- Primary documented in this encounter Care Teams Coroner'S Juror Relationship Specialty Start Date End Date Violeta Casillas DO PCP - General 09/29/16 09/15/21 documented as of this encounter
--- OUTSIDE RECORDS SUMMARY | 2024-07-09 07:27 | XMS_ITS | Encounter Summary ---
Author Organization [facility] Facility Care Team Providers Care Evp And Chief Operating Officer Name Role Phone Unavailable Primary Care Provider Unavailabl e Encounter Details Date Type Department Care Team (Late st Contact Info) Description 01/01/2007 1:50 PM CDT Hospital Encounter [facility] CLINCONV Social History Tobacco Use Types Packs/Day Years Used Date Smoking Tobacco: Never Assessed Sex and Gender Information Value Date Recorded Sex Assigned at Not on file Legal Sex Male 3:40 AM MEDICAL PROFESSIONALS Gender Identity Not on file Sexual Orientation Not on file documented as of this encounter Plan of Treatment Not on file documented as of this encounter Visit Diagnoses Not on filedocumented in this encounter
--- OUTSIDE RECORDS SUMMARY | 2024-07-09 07:27 | XMS_ITS | Encounter Summary ---
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
--- OUTSIDE RECORDS SUMMARY | 2024-07-09 07:27 | XMS_ITS | Encounter Summary ---
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
== END 2024-07-02 14:29 | disposition home or self-care (01) ==
PROVIDERS: Student in an Organized Health Care Education/Training Program; Emergency Provider Emergency Medicine; PCP Nurse Practitioner Family
DX: J06.9 Acute upper respiratory infection, unspecified (principal); K12.2 Cellulitis and abscess of mouth; Z20.822 Contact with and (suspected) exposure to COVID-19; F03.90 Unspecified dementia, unspecified severity, without behavioral disturbance, psychotic disturbance, mood disturbance, and anxiety; J44.9 Chronic obstructive pulmonary disease, unspecified; I73.9 Peripheral vascular disease, unspecified; I10 Essential (primary) hypertension; I48.91 Unspecified atrial fibrillation; E78.5 Hyperlipidemia, unspecified; N40.0 Benign prostatic hyperplasia without lower urinary tract symptoms; Z87.891 Personal history of nicotine dependence; Z90.49 Acquired absence of other specified parts of digestive tract; Z79.82 Long term (current) use of aspirin; Z79.899 Other long term (current) drug therapy
CPT/HCPCS: 36415; 71046; 80053; 81001; 85025; 87086; 87637; 99283; J8540

== ENCOUNTER 2024-07-12 22:15 | Emergency (ER) | payer OTHER, SELFPAY ==
--- NOTE | ~2024-07-12 | XR_ITS ---
XR chest 1V DATE: 07/12/2024 23:45 INDICATION: Shortness of breath TECHNIQUE: AP chest, 2 views COMPARISON: 07/02/2024 AP and lateral chest FINDINGS: Bilateral hyperinflation a relative flattening of the diaphragm consistent with COPD. No pulmonary infiltrate or consolidation, pleural effusion or pulmonary vascular congestion or pneumo thorax is detected. Heart size is within normal range. No hilar or mediastinal enlargement. Aortic arch and descending th oracic aortic calcification. Surgical clips, right upper quadrant consistent with cholecystectomy. Degenerative spurring of the thoracic and lumbar spine. Prominent levoscoliosis of the lumbar spine. IMPRESSION: Bilateral hyperinflation consistent with COPD No active cardiopulmonary disease Reviewed, dictated and finalized at location A. CTOR OF CATERING
[2024-07-12 22:45] VITALS: BP 160/84; PULSE 77; RESP 19; TEMP 36.6; O2SAT 92
--- NOTE | 2024-07-12 22:51 | ECG_ITS ---
Test Date: 2024-07-12 23:02:20 Measurements Intervals [place] Rate: 72 P: 72 WI: 129 QRS: -16 QRSD: 141 T: 26 QT: 403 QTc: 443 Interpretive Statements SINUS RHYTHM INDETERMINATE AXIS RIGHT BUNDLE BRANCH BLOCK [120+ ms QRS DURATION, UPRIGHT V1, 40+ ms S IN I/aVL/V4/V5/V6] SEPTAL MYOCARDIAL INFARCTION , PROBABLY OLD [40+ ms Q WAVE IN V1/V2] NONSPECIFIC T-WAVE ABNORMALITY ABNORMAL ECG No previous ECG available for comparison Electronically Signed On 07-13-2024 08:29:37 MENTAL MEASUREMENTS TEACHER by Shamir Bowles M.D.
[2024-07-12 23:04] LABS: Basophils Percent Auto 0.3 % (0.2-1.2); Eosinophils Percent Auto 0.3 % (0-4.4); Hematocrit 39.6 % (42.0-52.0); Hemoglobin 13.1 g/dL (14.0-18.0); Immature Granulocyte Absolute 0.04 K/mm3 (0.00-0.031); Immature Granulocyte Percent A 0.6 % (0-0.5); Lymphocytes Absolute Auto 0.63 K/mm3 (0.9-3.2); Lymphocytes Percent Auto 9.6 % (18.3-44.2); Mean Corpuscular HGB Conc 33.1 g/dl (32-36); Mean Corpuscular Hemoglobin 30.7 pg (26-34); Mean Corpuscular Volume 92.7 fl (80-100); Monocytes Absolute Auto 0.3 K/mm3 (0.1-0.6); Monocytes Percent Auto 4.7 % (2.6-8.5); Neutrophils Absolute Auto 5.5 K/mm3 (1.3-6.7); Neutrophils Percent Auto 84.5 % (45.5-73.1); Platelet Count Result 227 k/mm3 (150-375); Red Blood Count 4.27 M/mm3 (4.6-6.20); Red Cell Distribution Width 13.2 % (11.5-14.5); White Blood Count 6.5 K/mm3 (4.5-10.0)
[2024-07-12 23:15] LABS: Alanine Aminotransferase 18 U/L (6-50); Albumin Level 3.5 g/dL (3.5-5.1); Alkaline Phosphatase 109 U/L (38-126); Anion Gap 7 mmol/L (4-12); Aspartate Amino Transferase 23 U/L (17-59); Bilirubin,Total 0.8 mg/dL (0.2-1.3); Blood Urea Nitrogen 22 mg/dL (9-20); Calcium 8.3 mg/dL (8.4-10.2); Carbon Dioxide 28 mmol/L (22-30); Chloride 101 mmol/L (98-107); Estimated CRCL calculation 53 ml/min; Estimated Glomerular Filt Rate > 60; Glucose 115 mg/dL (65-110); INR 0.9; Prothrombin Time 12.7 Seconds (11.1-14.7); Sodium 136 mmol/L (137-145)
[2024-07-12 23:16] LABS: Partial Thromboplastin Time 22.9 Seconds (22.3-36.8)
[2024-07-12 23:46] LABS: Troponin I < 0.012 ng/mL (0.000-0.034)
[2024-07-13 01:36] VITALS: BP 149/72; PULSE 77; RESP 18; TEMP 36.6; O2SAT 94
[2024-07-13 05:02] VITALS: BP 208/88; PULSE 78; PULSE 79; RESP 16; O2SAT 98; O2SAT 99
--- NOTE | 2024-07-13 08:10 | ED.SOB ---
HPI - SOB/Dyspnea General Chief Complaint: Shortness of Breath/Dyspnea Stated Complaint: SOB x 1week, abx Time Seen by Provider: 07/13/24 07:00 History of Present Illness HPI Narrative: Patient is an 88-year-old male who presents ER with cough. Ongoing for several weeks. Worse when he lays down. Woke him up from sleep last night. No chest pain. No dyspnea. He had been on steroids with minimal improvement. No fevers or chills. Intermittently uses his albuterol in unsure if it helps. Related Data Home Medications ?Medication ?Instructions ?Recorded ?Confirmed ?Last Taken ?Type aspirin 81 mg tablet,delayed 81 mg PO DAILY 12/12/21 04/22/24 02/16/22 History release Allergies Allergy/AdvReac Type Severity Reaction Status Date / Time No Known Allergies Allergy Verified 07/02/24 04:08 Review of Systems Constitutional: Constitutional: Reports no additional constitutional complaints ENT: Reports system reviewed and no additional complaints, except as documented Cardiovascular: Cardiovascular: Reports no additional cardiovascular complaints Respiratory: Respiratory: Reports no additional respiratory complaints [facility] Past Medical History Medical History (Updated 07/13/24 @ 08:13 by Jet Langston MD) Lumbar radiculopathy Lumbar spondylosis Peripheral vascular disease Chronic obstructive pulmonary disease Benign prostatic hyperplasia Depression Seasonal allergies Anemia Hypertension Atrial fibrillation Anxiety Constipation Dementia Hyperlipidemia Surgical History Surgical History Status post peripheral artery angioplasty with insertion of stent History of cholecystectomy Family History Family History Other Unknown family medical history Social History Social History Social History: Healthcare power of ip attorney: Roseanne Noguera. Code status: Smoking packs per day: 1 Smoking cigarettes per day: 20.0 Smoking status: Former smoker Tobacco type: cigarettes Smoking end date: 07/02/08 Alcohol intake: never Drinks per week: 2 Substance use: never Substance use type: does not use Do You Feel Safe in your Home?: Yes Lack of Transportation: No Lack of Food: Never True Current Housing: I Have Housing Concerned About Future Housing: No Difficulty Paying Gas/Electric Bills: No Difficulty Paying for Meds: No Currently Unemployed: No Education: Grade School Difficulty w/ Childcare or Family Care: No Spiritual care concerns: No Exam Narrative: GENERAL: Well-appearing, well-nourished, and in no acute distress. HEAD: Normocephalic, atraumatic. ENT: Mucous membranes moist. CHEST: Clear to auscultation. No respiratory distress. HEART: Regular rate and rhythm. EXTREMITIES: Normal range of motion. No edema. SKIN: Warm, dry, no rash. NEURO: Alert and oriented x3. PSYCH: Normal mood and affect. Course Course Emergency Course: Patient resting comfortably. It sounds like he struggles with postnasal drip. Will give [id number] medication recommendations. Discharge. Blood pressure is elevated but he is taking home meds and wishes to leave. Vital Signs Vital signs: Vital Signs Temperature 97.8 F 07/12/24 22:45 Pulse Rate 77 07/12/24 22:45 Respiratory Rate 19 07/12/24 22:45 Blood Pressure 160/84 H 07/12/24 22:45 Pulse Oximetry 92 07/12/24 22:45 Oxygen Delivery Room Air 07/12/24 22:45 Temperature 97.8 F 07/13/24 01:36 Pulse Rate 79 07/13/24 05:02 Respiratory Rate 16 07/13/24 05:02 Blood Pressure 208/88 H 07/13/24 05:02 Pulse Oximetry 98 07/13/24 05:02 Oxygen Delivery Room Air 07/13/24 05:02 MDM - SOB/Dyspnea Lab Data 07/12/24 22:58 07/12/24 22:58 Labs: Lab Results 07/12/24 Range/Units 22:58 WBC 6.5 (4.5-10.0) K/mm3 RBC 4.27 L (4.6-6.20) M/mm3 Hgb 13.1 L (14.0-18.0) g/dL Hct 39.6 L (42.0-52.0) % MCV 92.7 (80-100) fl MCH 30.7 (26-34) pg MCHC 33.1 (32-36) g/dl RDW 13.2 (11.5-14.5) % Plt Count 227 (150-375) k/mm3 MPV 10.0 (7.4-10.4) fl Immature Gran % (Auto) 0.6 H (0-0.5) % Neut % (Auto) 84.5 H (45.5-73.1) % Lymph % (Auto) 9.6 L (18.3-44.2) % [place] % (Auto) 4.7 (2.6-8.5) % Eos % (Auto) 0.3 (0-4.4) % Baso % (Auto) 0.3 (0.2-1.2) % Lymph # (Auto) 0.63 L (0.9-3.2) K/mm3 [place] # (Auto) 0.3 (0.1-0.6) K/mm3 Eos # (Auto) 0.0 (0-0.3) K/mm3 Baso # (Auto) 0.0 (0.0-0.1) K/mm3 Abs Immat Gran (auto) 0.04 H (0.00-0.031) K/mm3 Absolute Neuts (auto) 5.5 (1.3-6.7) K/mm3 Absolute Nucleated RBC 0.000 (0.0-0.012) K/mm3 Nucleated RBC % 0.0 (0.0-0.2) % PT 12.7 (11.1-14.7) Seconds INR 0.9 APTT 22.9 (22.3-36.8) Seconds Sodium 136 L (137-145) mmol/L Potassium 4.0 (3.4-5.0) mmol/L Chloride 101 (98-107) mmol/L Carbon Dioxide 28 (22-30) mmol/L Anion Gap 7 (4-12) mmol/L BUN 22 H (9-20) mg/dL Creatinine 0.75 (0.7-1.3) mg/dL Estim Creat Clear Calc 53 ml/min Estimated GFR > 60 (59 - ) Glucose 115 H (65-110) mg/dL Calcium 8.3 L (8.4-10.2) mg/dL Total Bilirubin 0.8 (0.2-1.3) mg/dL AST 23 (17-59) U/L ALT 18 (6-50) U/L Alkaline Phosphatase 109 (38-126) U/L Troponin I < 0.012 (0.000-0.034) ng/mL Total Protein 6.0 L (6.3-8.2) g/dL Albumin 3.5 (3.5-5.1) g/dL Discharge Plan Discharge Clinical Impression: URI (upper respiratory infection) Patient Disposition: Home, Self-Care Condition: Stable Instructions: Upper Respiratory Infection (ED) Additional Instructions: As discussed you have a viral illness. Unfortunately there are no specific medications we can give you to make the illness end faster. Antibiotics do not work for viral illnesses. However, you can take Acetaminophen or Ibuprofen to help with fevers and pain. Stay well hydrated and rested. Return to the emergency department if your fevers and chills continue to worse after 5 days, if you develop worsening cough with thick sputum, or are unable to stay hydrated. Contact your primary care provider in the next few days for a re-evaluation and to make sure your symptoms are improving. Purchase a humidifier to help loosen secretions. Patient Language: Andorran Prescriptions: New guaifenesin 600 mg tablet extended release 12hr 600 mg PO BID Qty: 14 0RF fluticasone propionate [Flonase Allergy Relief] 50 mcg/actuation spray,suspension 1 spray intranasal BID Qty: 16 0RF Rx Instructions: administer into each nostril No Action ipratropium bromide 21 mcg (0.03 %) spray,non-aerosol 2 spray intranasal .qd-tid Qty: 30 1RF Rx Instructions: administer into each nostril. Aim back/up/out aspirin 81 mg tablet,delayed release (DR/EC) 81 mg PO DAILY polyethylene glycol 3350 [Miralax] 17 gram Powder In Packet 17 g PO QAM Qty: 7 0RF hydralazine 10 mg tablet 10 mg PO BID Qty: 60 0RF guaifenesin 1,200 mg tablet extended release 12hr 1,200 mg PO BID Qty: 14 0RF losartan 50 mg tablet 50 mg PO DAILY Qty: 30 11RF albuterol sulfate 90 mcg/actuation HFA aerosol inhaler 1 - 2 inh inhalation Q4-6H PRN (Reason: shortness of breath or wheezing) Qty: 8.5 2RF atorvastatin 20 mg tablet 20 mg PO DAILY Qty: 30 11RF benzonatate 200 mg capsule 200 mg PO TID PRN (Reason: cough) Qty: 30 0RF doxazosin 1 mg tablet 1 mg PO DAILY Qty: 90 3RF nitrofurantoin monohyd/m-cryst [Macrobid] 100 mg capsule 100 mg PO Q12H Qty: 14 0RF Rx Instructions: must administer with a meal/food prednisone 20 mg tablet 20 mg PO DAILY Qty: 7 0RF Follow-up/Referrals: Mely Gupta NP [Primary Care Provider] - 1 Week
--- NOTE | 2024-07-13 09:41 | PC.NURSE ---
pt DC ED after receiving blood pressure medication that pt takes at home.
== END 2024-07-13 11:36 | disposition home or self-care (01) ==
PROVIDERS: Emergency Medicine; Emergency Provider Emergency Medicine; PCP Nurse Practitioner Family
DX: J06.9 Acute upper respiratory infection, unspecified (principal); F03.90 Unspecified dementia, unspecified severity, without behavioral disturbance, psychotic disturbance, mood disturbance, and anxiety; I73.9 Peripheral vascular disease, unspecified; I10 Essential (primary) hypertension; I48.91 Unspecified atrial fibrillation; J44.9 Chronic obstructive pulmonary disease, unspecified; E78.5 Hyperlipidemia, unspecified; N40.0 Benign prostatic hyperplasia without lower urinary tract symptoms; Z95.820 Peripheral vascular angioplasty status with implants and grafts; Z87.891 Personal history of nicotine dependence; Z90.49 Acquired absence of other specified parts of digestive tract; Z79.82 Long term (current) use of aspirin; Z79.899 Other long term (current) drug therapy
CPT/HCPCS: 36415; 71045; 80053; 84484; 85025; 85610; 85730; 93005; 99284

== ENCOUNTER 2024-10-28 09:36 | Outpatient (CLI) | payer OTHER, SELFPAY ==
--- NOTE | ~2024-10-28 | XR_ITS ---
XR chest 2V 10/28/2024 10:13 Indication: Shortness of breath Procedure: 2 view chest Comparison: Comparison to multiple prior studies sequentially, with oldest reviewed study dated 10/2023. Findings: Heart size normal. No focal air space disease, pulmonary edema, pleural effusion or suspect ed pneumothorax. No acute osseous abnormality. The lungs are hyperinflated which is consistent with, but not diagnostic of chronic obstructive pulmonary disease. Calcified granulomas in the lungs bilate rally. Impression: 1: No acute cardiopulmonary disease. Reviewed, dictated and finalized at location A. Impression: 1: No acute cardiopulmonary disease.
--- NOTE | ~2024-10-28 | US_ITS ---
EXAMINATION: US carotid duplex BI DATE: 10/28/2024 11:14 INDICATION: Dizziness and giddiness TECHNIQUE: Grayscale, color Doppler, and pulsed Doppler images of the cervical carotid arteries were obtained. The degree of vessel stenosis is placed in one of the following categories: normal, <50%, 5 0-69%, >=70% but less than near-occlusion, near-occlusion, or total occlusion. Note that percent sten osis relative to normal distal artery lumen diameter is indirectly measured from velocity measurement s as described by Donta, et al. Radiology 2003; 229:340-346. Notes: Normal: Peak systolic velocity <125 centimeters/sec and no plaque <50%. Peak systolic velocity <125 ( EDV <40; ICA/CCA PSV ratio <2.0; used these factors only a tandem lesions or low cardiac output or co ntralateral disease) 50-69 %: PSV 125-230 (EDV 40-100; ratio 2-4) >= 70% but less than near occlusion: PSV greater than 230 (EDV > 100; ratio> 4.0) Near Occlusion: PSV that is variable; markedly narrowed lumen Occlusion: Absent flow on color/spectral Doppler and no lumen on he scale. COMPARISON: None. FINDINGS: RIGHT: The right common carotid artery (CCA) peak systolic velocity (PSV) is 69 cm/s. The right internal car otid artery (ICA) PSV is 63 cm/s. The right ICA end-diastolic velocity (EDV) is 9 cm/s. The right ICA /CCA PSV ratio is 0.9. The external carotid artery (ECA) PSV is 79 cm/s. There is antegrade flow in t he right vertebral artery. LEFT: The left CCA PSV is 57 cm/s. The left ICA PSV is 77 cm/s. The left ICA EDV is 9 cm/s. The left ICA/CC A PSV ratio is 1.3. The ECA PSV is 72 cm/s. There is antegrade flow in the left vertebral artery. IMPRESSION: 1. Less than 50% stenosis in the right internal carotid artery by sonographic criteria. 2. Less than 50% stenosis in the left internal carotid artery by sonographic criteria. Reviewed, dictated and finalized at location A. IMPRESSION: 1. Less than 50% stenosis in the right internal carotid artery by sonographic c luba. 2. Less than 50% stenosis in the left internal carotid artery by sonographic jessica blair.
--- OUTSIDE RECORDS SUMMARY | 2024-10-28 10:40 | XMS_ITS | Clinical Summary ---
Author Organization [facility] Address [address] [place] [address] Phone Care Team Providers Care Business Solutions Director Name Role Phone Brandon Sandoval MD Primary Care Provider [phone] Allergies No known active allergies Medications aspirin [...] Comments Blood Pressure 166/90 08/08/2021 10:50 AM SECURITY INTELLIGENCE ANALYST Pulse 86 08/08/2021 10:50 AM SECURITY INTELLIGENCE ANALYST Temperature 37.1 C (98.8 F) 08/08/2021 10:50 AM SECURITY INTELLIGENCE ANALYST Respiratory Rate 16 08/08/2021 10:50 AM SECURITY INTELLIGENCE ANALYST Oxygen Saturation 95% 08/08/2021 10:50 AM SECURITY INTELLIGENCE ANALYST Inhaled Oxygen Concentration - - Weight 69.4 kg (153 lb 1.6 oz) 08/08/2021 10:50 AM SECURITY INTELLIGENCE ANALYST Height 181.9 cm (5' 11.6 ) 08/08/2021 10:[address] Body Mass Index 21 08/08/2021 10:50 AM SECURITY INTELLIGENCE ANALYST Plan of Treatment Health Maintenance Due Date Last Done Comments Hepatitis C Virus (HCV) Screening 1935 TdaP Immunization 1935 Pneumococcal Immunization (5 0+ years) (1 of 1 - PCV) 11/22/1985 Zoster Immunization (1 of 2) 11/22/1985 Respiratory Syncytial Virus (RSV) Immunization (Adult) (1 - 1-dose 75+ series) 11/22/2010 Influenza Immunization (#1) 03/02/202404/02, 06/29/2021 SARS-COV-2 Immunization ( - 2023- season) 2024 Hepatitis B Immunization Aged Out No longer eligible based on patient's age to complete this topic Meningococcal Immunization (ACWY) Aged Out No longer eligible b ased on patient's age to complete this topic Rotavirus Immunization Aged Out No lo nger eligible based on patient's age to complete this topic Insurance MEDICARE Advance Directives Documents on File Type Date Recorded Patient Home Care Assistant Expl anation Power of Type Copyist for Health Care 06/29/2021 10:02 AM Care Teams Business Solutions Director Relationship Specialty Start Date End Date Brandon Sandoval MD PCP - General Internal Medicine 03/23/21
--- OUTSIDE RECORDS SUMMARY | 2024-10-28 10:40 | XMS_ITS | CONTINUITY OF CARE DOCUMENT ---
Author Name lenka og Address Unknown Organization [facility] Address [address] [place] [address] Phone [phone] Care Team Providers Care Hydraulic Press Tender Name Role Phone Reid ARGUETA, Gianna Unavailable MARY HURTADO MD Unavailable [phone] MARY HURTADO MD Unavailable PROBLEMS Condition Status Date Provider Notes Shortness of breath (SOB) active Jose M purdy INSURANCE PROVIDERS Payer name Policy type / Coverage type [place] republic[place] [employer] Medicare [id number] HISTORY OF PROCEDURES Procedure Date Procedure Name Provider Procedure Notes S tatus Mobile Cardiac Telem etry - Tech Gianna Mathews MD completed Mobile Cardiac Telem etry - Prof Gianna Mathews MD completed
--- OUTSIDE RECORDS SUMMARY | 2024-10-28 10:40 | XMS_ITS | Clinical Summary ---
Author Organization [facility] Address [address] [place] [id number] Care Team Providers Care Combine Inspector Name Role Phone Miller Mcmanus MD Primary Care Provider [phone] Allergies No known active allergies Medications aspirin 81 mg chewable tablet Take 1 tablet (81 mg total) by mouth nightly 90 tablet 3 021 Active atorvastatin (LIPITOR) 20 mg tabletIndications:Pure hypercholesterolemia Take 1 tablet (20 mg total) by mouth nightly 90 tablet 3 021 Active albuterol HFA (PROVENTIL HFA,VENTOLIN HFA,PROAIR HFA) 90 mcg/actuation inhaler Inhale 2 puffs every 6 (six) hours as needed 022 Active docusate sodium (COLACE) 50 mg capsuleIndications:cons [...] Active Problems Problem Noted Date Diagnosed Date Peripheral arterial disease 09/16/2021 Assessment & Plan [...] (09/21/2020 11:17 AM CDT): Will fill out sales route driver helper form as I don't feel patient is [...] ordered Assessment & Plan (07/28/2020 9:42 AM EXHIBITIONS CURATOR): Likely related to uncontrolled allergies, though not [...] others. Assessment & Plan (05/06/2020 11:31 PM EXHIBITIONS CURATOR): Unsure exact cause. Depression vs nutrition vs dehydration vs possible parkinsons?? Consult ACO He is recently less than 2 years ago. No family or friend support. Probable poor nutrition. Difficulty getting him to take meds as intended. Frequent falls 05/06/2020 Assessment & Plan (11/03/2020 12:12 PM CDT): Pt refuses cane or walker for ambulation. Assessment & Plan (05/06/2020 11:40 PM EXHIBITIONS CURATOR): Refuses neuro or PT consult. I think he falls more from flexing his neck versus position changes, stumbling, or orthostasis. During the office visit that took at least 40 minutes, I spent over 50% of the time either counseling, educating, discussing plan of treatment, or answering questions today. Tremor, unspecified 05/06/2020 Assessment & Plan (05/06/2020 11:33 PM EXHIBITIONS CURATOR): Refuses consult with neuro or anything that might cost him money. Trial Requip (ropinirole) 0.25mg tid. Consult ACO Illiteracy 05/06/2020 Weight loss 01/26/2020 Assessment & Plan (07/28/2020 7:23 PM EXHIBITIONS CURATOR): Stable with Mirtazapine. Will increase the Mirtazapine to 30mg today. Assessment & Plan (05/06/2020 11:37 PM EXHIBITIONS CURATOR): Possible improvement with Mirtazapine (if he is [...] 8:55 AM CDT): Will refill Cardura to [facility] program. Hopefully this will allow patient to easy to access his medications. Will also order home health for social work and nursing services. With his blood pressure a elevated he likely needs a nurse to check this and assist him with medications. He is not cognitively aware enough to do this himself. Assessment & Plan (07/28/2020 7:26 PM EXHIBITIONS CURATOR): Will increase the doxazosin from 1 mg [...] readings. Assessment & Plan (07/28/2019 11:16 PM EXHIBITIONS CURATOR): New diagnosis. Start doxazosin (Cardura) for combined benefit of HTN and BPH. Call back with update in 2-3 weeks and blood pressure readings if possible. Chronic rhinitis 07/28/2019 Assessment & Plan (07/28/2019 11:20 PM EXHIBITIONS CURATOR): Start Flonase (fluticasone). Demonstrated use. Hearing difficulty of both ears 12/18/2018 Assessment & Plan (07/28/2020 7:45 PM EXHIBITIONS CURATOR): Tried to clean out ears today. Assessment & Plan (01/26/2020 11:12 AM CDT): Did not go to audiology due to cost. Assessment & Plan (12/18/2018 9:24 PM CDT): Audiology consult. 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 LDL is controlled well. Prediabetes 06/18/2017 Assessment & Plan (07/28/2020 7:21 PM EXHIBITIONS CURATOR): Will check new labs and make adjustments if needed. Assessment & Plan (01/26/2020 11:07 AM CDT): Will recheck fasting glucose today. Assessment & Plan (07/28/2019 11:16 PM EXHIBITIONS CURATOR): Get new labs Assessment & Plan (12/18/2018 9:23 PM CDT): Lower carb diet recommended. Assessment & Plan (06/18/2017 1:26 PM EXHIBITIONS CURATOR): Please cut down on sweets. Chronic idiopathic constipation 12/13/2016 Assessment & Plan (07/28/2020 7:21 PM EXHIBITIONS CURATOR): Chronic & stable on meds. Continue current [...] Lipitor. Assessment & Plan (07/28/2020 7:43 PM EXHIBITIONS CURATOR): Chronic & stable on meds. Continue current treatment. Assessment & Plan (01/26/2020 11:06 AM CDT): Stop rosuvastatin and start atorvastatin 20mg due to cost. Check labs today. Assessment & Plan (07/28/2019 11:20 PM EXHIBITIONS CURATOR): Get updated labs soon. Assessment & Plan (12/18/2018 9:23 PM CDT): Chronic & stable on meds. Continue current treatment. Assessment & Plan (06/18/2018 2:20 PM EXHIBITIONS CURATOR): Chronic & stable on meds. Continue current treatment. Assessment & Plan (03/29/2018 1:48 PM CDT): LDL was 69 on 12/10/2017. Continue Mevacor treatment Assessment & Plan (12/17/2017 9:41 PM CDT): Chronic & stable on meds. Continue current treatment. Assessment & Plan (06/18/2017 1:26 PM EXHIBITIONS CURATOR): Chronic & stable on meds. Continue current treatment. Assessment & Plan (12/13/2016 3:05 PM CDT): Doing well with current treatment program and medications. No changes today Recurrent major depressive disorder 2015 Assessment & Plan (09/21/2020 10:24 PM CDT): Pay sent switching back from mirtazapine back to nortriptyline. Assessment & Plan (09/20/2020 8:57 AM CDT): Will switch the mirtazapine back to amitriptyline as patient seemed to do better on this. Will also order this to the med program at the pharmacy Assessment & Plan (07/28/2020 7:38 PM EXHIBITIONS CURATOR): Increase the Mirtazapine to 30mg daily and stop the Amitriptyline 10 mg daily, especially since he has constipation. Assessment & Plan (05/06/2020 11:37 PM EXHIBITIONS CURATOR): Patient symptomatic and not sure if he [...] treatment. Assessment & Plan (06/18/2018 2:20 PM EXHIBITIONS CURATOR): Chronic & stable on meds. Continue current treatment. Assessment & Plan (06/18/2017 1:26 PM EXHIBITIONS CURATOR): Chronic & stable on meds. Continue current treatment. Assessment & Plan (12/13/2016 3:05 PM CDT): Doing well with current treatment program and medications. No changes today Chronic obstructive pulmonary disease 02/15/2015 Assessment & Plan (07/28/2020 7:42 PM EXHIBITIONS CURATOR): Stable with out prescription medication. He feels [...] treatment. Assessment & Plan (06/18/2018 2:20 PM EXHIBITIONS CURATOR): Stable without regular use of inhalers. Assessment [...] medication(s) Assessment & Plan (07/28/2020 7:41 PM EXHIBITIONS CURATOR): Increase the doxazosin from 1 mg to 2 mg. Assessment & Plan (01/26/2020 11:09 AM CDT): Patient only took the doxazosin a couple times. Stop completely due to not taking it regularly and some lightheadedness when standing. Assessment & Plan (07/28/2019 11:16 PM EXHIBITIONS CURATOR): Start doxazosin (Cardura). Patient opted out of getting PSA testing at this time. Resolved Problems Problem Noted Date Diagnosed Date Resolved Date terminal operator (current) use of anticoagulants 11/13/2023 07/15/2024 Late onset Alzheimer's disea se without behavioral disturbance 09/20/2020 09/20/2020 Bilateral impacted cerumen 07/28/2020 0 09/17/2020 Assessment & Plan (07/28/2020 7:22 PM EXHIBITIONS CURATOR): Ear irrigation today. Encounter for Medicare annual [...] 12/18/19 Assessment & Plan (06/18/2017 1:20 PM EXHIBITIONS CURATOR): These look like a type of squamous cancer so will consult dermatology. He also may have other AKs present. Chronic atrial fibrillation 2015 07/15/2024 Assessment & Plan (10/26/2023 10:28 AM CDT): [...] draws. Assessment & Plan (06/18/2018 2:20 PM EXHIBITIONS CURATOR): Chronic & stable on meds. Continue current [...] INR Assessment & Plan (06/18/2017 1:27 PM EXHIBITIONS CURATOR): Chronic & stable on meds. Continue current treatment. INRs are stable. Assessment & Plan (12/13/2016 3:06 PM CDT): INR waxes and wanes a lot so had discussion about eating a consistent diet. Continue warfarin and weekly INR checks. Atrial fibrillation 03/18/2015 12/14/19 Overview (10/07/2016): Atrial fibrillation Major depressive disorder 02/15/2015 Overview (10/07/2016): MDD Chronic coronary artery disease 02/15/2015 12/13/2016 Overview (10/07/2016): Coronary artery disease Male erectile disorder 02/15/201505/06 Helicobacter pylori gastroin testinal tract infection 02/15/2015 12/13/2016 Overview (10/07/2016): Helicobacter pylori gastrointestinal tract infection Herpes zoster 02/15/2015 12/13/2016 Overview (10/07/2016): Herpes zoster Immunizations Immunization Administration Dates Next Due Influenza, Quadrivalent, Hig [...] History Medical History Date Comments Atrial fibrillation (HCC) COPD (chronic obstructive pulmonary disease) (HC [...] How often do you attend chur or denominational services? Never 05/13/2020 Do you belong to [...] in a half-way (including now)? No 12/30/2020 Personal Safety Answer Date Recorded Getting School Help Needed Not on file 07/30 Sex and Gender Information Value Date Recorded Sex Assigned at Not on file Legal Sex Male 3:40 AM EXHIBITIONS CURATOR Gender Identity Not on file Sexual Orientation Not on file Obstetrics History Last Filed Vital Signs Vital Sign Reading Time Taken Comments Blood Pressure 134/62 10/26/2023 9:28 AM CDT Pulse 79 10/26/2023 9:28 AM CDT Temperature 36.9 C (98.4 F) 07/28/2020 8:55 AM EXHIBITIONS CURATOR Respiratory Rate 18 11/03/2020 9:16 AM CDT [...] 09/17/2020, 07/28/2020, Additional history exists Influenza Vaccine (Season Ended) 2025 04/29/2022, 06/29/2021, 05/06/2020, Additional history exists DTaP/Tdap/Td Vaccine (3 - Td or Tdap) 01/16/2032 01/15/2022, 12/13/2019 Pneumococcal vaccine 65+ Completed 01/26/2020, 11/30 Insurance MEDICARE MEDICARE MEDICARE [facility] [place] [address] [facility] Advance Directives For more information, please contact: [phone] Documents on File Type Date Recorded Patient Human Resource Professional Expl anation ADVANCE DIRECTIVE 09/16/2021 9:00 AM Power of Casting Wheel Operator-Medical ADVANCE DIRECTIVE 06/23/2021 4:03 PM Annabel r of Casting Wheel Operator-Medical ADVANCE DIRECTIVE 03/05/2019 10:13 AM POWER OF BODY MAN-MEDICAL ADVANCE DIRECTIVE 03/04/2019 2:22 PM POWER OF BODY MAN-MEDICAL Care Teams Combine Inspector Relationship Specialty Start Date End Date Miller Mcmanus MD [address] [id number] PCP - General Family Medicine 10/20/22
--- OUTSIDE RECORDS SUMMARY | 2024-10-28 10:40 | XMS_ITS | Referral Summary ---
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 Assessment & Plan (05/06/2020 11:31 PM HISTORICAL RECORDS ADMINISTRATOR): Unsure exact cause. Depression vs nutrition vs dehydration vs possible parkinsons?? Consult ACO He is recently less than 2 years ago. No family or friend support. Probable poor nutrition. Difficulty getting him to take meds as intended. Frequent falls 05/06/2020 Assessment & Plan (11/03/2020 12:12 PM CDT): Pt refuses cane or walker for ambulation. Assessment & Plan (05/06/2020 11:40 PM HISTORICAL RECORDS ADMINISTRATOR): Refuses neuro or PT consult. I think he falls more from flexing his neck versus position changes, stumbling, or orthostasis. During the office visit that took at least 40 minutes, I spent over 50% of the time either counseling, educating, discussing plan of treatment, or answering questions today. Tremor, unspecified 05/06/2020 Assessment & Plan (05/06/2020 11:33 PM HISTORICAL RECORDS ADMINISTRATOR): Refuses consult with neuro or anything that might cost him money. Trial Requip (ropinirole) 0.25mg tid. Consult ACO Illiteracy 05/06/2020 Weight loss 01/26/2020 Assessment & Plan (07/28/2020 7:23 PM HISTORICAL RECORDS ADMINISTRATOR): Stable with Mirtazapine. Will increase the Mirtazapine to 30mg today. Assessment & Plan (05/06/2020 11:37 PM HISTORICAL RECORDS ADMINISTRATOR): Possible improvement with Mirtazapine (if he is [...] 8:55 AM CDT): Will refill Cardura to [facility] program. Hopefully this will allow patient to easy to access his medications. Will also order home health for social work and nursing services. With his blood pressure a elevated he likely needs a nurse to check this and assist him with medications. He is not cognitively aware enough to do this himself. Assessment & Plan (07/28/2020 7:26 PM HISTORICAL RECORDS ADMINISTRATOR): Will increase the doxazosin from 1 mg [...] readings. Assessment & Plan (07/28/2019 11:16 PM HISTORICAL RECORDS ADMINISTRATOR): New diagnosis. Start doxazosin (Cardura) for combined benefit of HTN and BPH. Call back with update in 2-3 weeks and blood pressure readings if possible. Chronic rhinitis 07/28/2019 Assessment & Plan (07/28/2019 11:20 PM HISTORICAL RECORDS ADMINISTRATOR): Start Flonase (fluticasone). Demonstrated use. Hearing difficulty of both ears 12/18/2018 Assessment & Plan (07/28/2020 7:45 PM HISTORICAL RECORDS ADMINISTRATOR): Tried to clean out ears today. Assessment & Plan (01/26/2020 11:12 AM CDT): Did not go to audiology due to cost. Assessment & Plan (12/18/2018 9:24 PM CDT): Audiology consult. 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 LDL is controlled well. Prediabetes 06/18/2017 Assessment & Plan (07/28/2020 7:21 PM HISTORICAL RECORDS ADMINISTRATOR): Will check new labs and make adjustments if needed. Assessment & Plan (01/26/2020 11:07 AM CDT): Will recheck fasting glucose today. Assessment & Plan (07/28/2019 11:16 PM HISTORICAL RECORDS ADMINISTRATOR): Get new labs Assessment & Plan (12/18/2018 9:23 PM CDT): Lower carb diet recommended. Assessment & Plan (06/18/2017 1:26 PM HISTORICAL RECORDS ADMINISTRATOR): Please cut down on sweets. Chronic idiopathic constipation 12/13/2016 Assessment & Plan (07/28/2020 7:21 PM HISTORICAL RECORDS ADMINISTRATOR): Chronic & stable on meds. Continue current [...] Lipitor. Assessment & Plan (07/28/2020 7:43 PM HISTORICAL RECORDS ADMINISTRATOR): Chronic & stable on meds. Continue current treatment. Assessment & Plan (01/26/2020 11:06 AM CDT): Stop rosuvastatin and start atorvastatin 20mg due to cost. Check labs today. Assessment & Plan (07/28/2019 11:20 PM HISTORICAL RECORDS ADMINISTRATOR): Get updated labs soon. Assessment & Plan (12/18/2018 9:23 PM CDT): Chronic & stable on meds. Continue current treatment. Assessment & Plan (06/18/2018 2:20 PM HISTORICAL RECORDS ADMINISTRATOR): Chronic & stable on meds. Continue current treatment. Assessment & Plan (03/29/2018 1:48 PM CDT): LDL was 69 on 12/10/2017. Continue Mevacor treatment Assessment & Plan (12/17/2017 9:41 PM CDT): Chronic & stable on meds. Continue current treatment. Assessment & Plan (06/18/2017 1:26 PM HISTORICAL RECORDS ADMINISTRATOR): Chronic & stable on meds. Continue current [...] pharmacy Assessment & Plan (07/28/2020 7:38 PM HISTORICAL RECORDS ADMINISTRATOR): Increase the Mirtazapine to 30mg daily and stop the Amitriptyline 10 mg daily, especially since he has constipation. Assessment & Plan (05/06/2020 11:37 PM HISTORICAL RECORDS ADMINISTRATOR): Patient symptomatic and not sure if he [...] treatment. Assessment & Plan (06/18/2018 2:20 PM HISTORICAL RECORDS ADMINISTRATOR): Chronic & stable on meds. Continue current treatment. Assessment & Plan (06/18/2017 1:26 PM HISTORICAL RECORDS ADMINISTRATOR): Chronic & stable on meds. Continue current treatment. Assessment & Plan (12/13/2016 3:05 PM CDT): Doing well with current treatment program and medications. No changes today Chronic obstructive pulmonary disease 02/15/2015 Assessment & Plan (07/28/2020 7:42 PM HISTORICAL RECORDS ADMINISTRATOR): Stable with out prescription medication. He feels [...] treatment. Assessment & Plan (06/18/2018 2:20 PM HISTORICAL RECORDS ADMINISTRATOR): Stable without regular use of inhalers. Assessment [...] medication(s) Assessment & Plan (07/28/2020 7:41 PM HISTORICAL RECORDS ADMINISTRATOR): Increase the doxazosin from 1 mg to 2 mg. Assessment & Plan (01/26/2020 11:09 AM CDT): Patient only took the doxazosin a couple times. Stop completely due to not taking it regularly and some lightheadedness when standing. Assessment & Plan (07/28/2019 11:16 PM HISTORICAL RECORDS ADMINISTRATOR): Start doxazosin (Cardura). Patient opted out of getting PSA testing at this time. 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 Encounter for Medicare annual [...] 12/18/19 Assessment & Plan (06/18/2017 1:20 PM HISTORICAL RECORDS ADMINISTRATOR): These look like a type of squamous [...] draws. Assessment & Plan (06/18/2018 2:20 PM HISTORICAL RECORDS ADMINISTRATOR): Chronic & stable on meds. Continue current [...] INR Assessment & Plan (06/18/2017 1:27 PM HISTORICAL RECORDS ADMINISTRATOR): Chronic & stable on meds. Continue current [...] slept in a [facility] (including now)? No 12/30/2020 Personal Safety Answer Date Recorded Getting School Help Needed Not on file 07/30 Sex and Gender Information Value Date Recorded Sex Assigned at Not on file Legal Sex Male 3:40 AM HISTORICAL RECORDS ADMINISTRATOR Gender Identity Not on file Sexual Orientation Not on file Last Filed Vital Signs Vital Sign Reading Time Taken Comments Blood Pressure 134/62 10/26/2023 9:28 AM CDT Pulse 79 10/26/2023 9:28 AM CDT Temperature 36.9 C (98.4 F) 07/28/2020 8:55 AM HISTORICAL RECORDS ADMINISTRATOR Respiratory Rate 18 11/03/2020 9:16 AM CDT Oxygen Saturation 96% 10/26/2023 9:28 AM CDT Inhaled Oxygen Concentration - - Weight 69.2 kg (152 lb 9.6 oz) 10/26/2023 9:28 A M CDT Height 182.9 cm (6') 10/26/2023 9:28 AM CDT Body Mass Index 20.7 10/26/2023 9:28 AM CDT Plan of Treatment Not on file Insurance MEDICARE MEDICARE MEDICARE MEDICARE [facility] Advance Directives For more information, please contact: [phone] Documents on File Type Date Recorded Patient Director Of Grants Expl anation ADVANCE DIRECTIVE 09/16/2021 9:00 AM Power of Chemist Intern-Medical ADVANCE DIRECTIVE 06/23/2021 4:03 PM Annabel r of Chemist Intern-Medical ADVANCE DIRECTIVE 03/05/2019 10:13 AM POWER OF RADIO RIGGER-MEDICAL ADVANCE DIRECTIVE 03/04/2019 2:22 PM POWER OF RADIO RIGGER-MEDICAL Care Teams Chocolate Packer Relationship Specialty Start Date End Date Miller Mcmanus MD [address] [id number] PCP - General Family Medicine 10/20/22
== END 2024-10-28 09:37 | disposition home or self-care (01) ==
PROVIDERS: PCP Nurse Practitioner Family; Visit Provider Nurse Practitioner Family
DX: R42 Dizziness and giddiness (principal); R06.02 Shortness of breath; I65.23 Occlusion and stenosis of bilateral carotid arteries
CPT/HCPCS: 71046; 93880

== ENCOUNTER 2024-12-18 17:21 | Inpatient (IN) | payer OTHER, SELFPAY ==
--- NOTE | ~2024-12-18 | CT_ITS ---
History: Vertigo PROCEDURE: CT head without contrast. COMPARISON: 04/22/2024 TECHNIQUE: Axial imaging of the head performed from the skull base to the vertex without IV contrast. Sagittal a nd coronal reformations obtained. DLP: 605 mGy-cm FINDINGS: The ventricles are enlarged. The dilatation of the ventricles is proportional to the degree of sulcal prominence, not uncommon in the senescent brain. Decreased attenuation is identified within the right posterior lobe of the cereb ellum, an interval change from 04/22/2024. Decreased attenuation is also identified within the periventricular white matter, likely secondary to microvascular ischemic disease, in a patient of this age. There is no mass, mass effect or midline shift. There is no abnormal extra-axial fluid collection or intracranial hemorrhage. Visualized paranasal sinuses are clear. The mastoid air cells are well aerated. No acute displaced fractures within the overlying cranium. Impression: No acute intracranial hemorrhage or suspicious mass effect. Decreased attenuation within the right posterior lobe of the cerebellum, an interval change from 04/02, possibly representing interval cerebral infarction. Reviewed, dictated and finalized at location A. Impression: No acute intracranial hemorrhage or suspicious mass effect. Decreased attenuation within the right posterior lobe of the cerebellum, an int erval change from 04/22/2024, possibly representing interval cerebral infarctio n.
--- NOTE | ~2024-12-18 | CT_ITS ---
EXAMINATION: CTA BRAIN/CAROTID DATE: 12/19/2024 10:18 INDICATION: Stroke TECHNIQUE: Computed tomographic angiography (CTA) of the head and neck was performed with 100 mL Omni paque-350 intravenous contrast. Multiplanar reconstructions and maximum intensity projection 3D-recon structions of the carotid arteries and of the intracranial arteries were created by the technologist on a separate workstation. Precontrast CT of the head was also obtained. Automated exposure control and iterative reconstruction technique were employed.The dose-length product was 1653.19 mGy-cm. COMPARISON: None. FINDINGS: Carotid arteries: Scattered atherosclerotic plaque along the visualized portion of the aortic arch and great vessels ar ising from the arch with no aneurysm, dissection or hemodynamically significant stenosis. There is at herosclerotic plaque with 0% stenosis of both the left and right carotid bulbs relative to normal dis marjorie artery lumen diameter (NASCET criteria). Bilateral vertebral arteries are codominant with severe stenosis at the origin of the right vertebral artery. Mild, <50% stenosis at the origin and proximal left vertebral artery. Moderate emphysema in the visualized upper lungs with mild left and moderate r ight apical pleural-parenchymal scarring. Severe cervical spondylosis. Head: No acute intracranial hemorrhage, acute infarction or abnormal extra axial fluid collection. There is moderate scattered white matter hypoattenuation consistent with chronic small vessel ischemic diseas e. Symmetric prominence of the sulci and ventricles consistent with moderate age-appropriate diffuse cerebral volume loss. No mass/mass effect. No abnormally enhancing brain lesions.. Changes of bilater al intraocular lens replacement. The orbits and mastoid air cells are normal. Mild mucosal thickenin g the paranasal sinuses. Intracranial arteries Vertebral arteries are codominant. Nonhemodynamically significant atherosclerotic calcifications at t he bilateral carotid bulbs. There is no hemodynamically significant stenosis in the vertebral, basila r and internal carotid arteries. Both A1 and P1 segments are patent. There is a patent anterior commu nicating artery. There are no aneurysms identified. Cerebral arterial arborization appears symmetric. IMPRESSION: 1. Atherosclerotic plaque with 0% stenosis of the right and left carotid bulbs relative to normal dis marjorie artery lumen diameter (NASCET criteria). 2. Age-related changes the brain including moderate diffuse volume loss and moderate scattered white matter hypoattenuation. No acute intracranial process. 3. 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 4. Unremarkable cerebral CT angiogram with no hemodynamically significant stenosis, thrombosis or ane urysm. 5. Moderate emphysema. Reviewed, dictated and finalized at location B. IMPRESSION: 1. Atherosclerotic plaque with 0% stenosis of the right and left carotid bulbs relative to normal distal artery lumen diameter (NASCET criteria). 2. Age-related changes the brain including moderate diffuse volume loss and mod erate scattered white matter hypoattenuation. No acute intracranial process. 3. 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 4. Unremarkable cerebral CT angiogram with no hemodynamically significant steno sis, thrombosis or aneurysm. 5. Moderate emphysema.
--- NOTE | ~2024-12-18 | MR_ITS ---
MRI of the brain Clinical History: Unsteady gait, CVA Technique: Axial and sagittal T1-weighted images were acquired. These were followed by axial T2-weigh max, diffusion weighted, gradient, and FLAIR images. Findings: There is no acute infarct, intracranial hemorrhage, or mass lesion. There is extensive drop tester david white matter disease the periventricular white matter and basal ganglia bilaterally. There is add itional involvement of the agata. Ventricles and subarachnoid spaces are dilated. Orbits are unremarkable. Paranasal sinuses and mastoi d air cells are clear. Major intracranial flow voids are grossly intact. Sagittal midline structures are intact. IMPRESSION: No acute infarct, intracranial hemorrhage, or mass lesion. Severe chronic microvascular ischemic disease and severe generalized atrophy. Reviewed, dictated and finalized at [facility].
--- OUTSIDE RECORDS SUMMARY | 2024-12-18 17:23 | XMS_ITS | CONTINUITY OF CARE DOCUMENT ---
Author Name lenka og Address Unknown Organization [facility] Address [address] [place] [id number] Phone [phone] Care Team Providers Care Cotton Buyer Name Role Phone Reid ARGUETA, Gianna Unavailable MARY HURTADO MD Unavailable MARY HURTADO MD Unavailable [phone] PROBLEMS Condition Status Date Provider Notes Shortness of breath (SOB) active Jose M purdy INSURANCE PROVIDERS Payer name Policy type / Coverage type [place] [employer] [place] MEDIC[place] Medicare [id number] HISTORY OF PROCEDURES Procedure Date Procedure Name Provider Procedure Notes S tatus Mobile Cardiac Telem etry - Tech Gianna Mathews MD completed Mobile Cardiac Telem etry - Prof Gianna Mathews MD completed
--- OUTSIDE RECORDS SUMMARY | 2024-12-18 17:23 | XMS_ITS | Clinical Summary ---
Author Organization [facility] Address [address] [place] [id number] Care Team Providers Care Jewel Hole Cornerer Name Role Phone Miller Mcmanus MD Primary Care Provider [phone] Allergies No known active allergies Medications aspirin [...] by mouth nightly 30 tablet 022 Active losartan (COZAAR) 50 mg tablet 1.5 tablets daily 135 tablet 1 024 Active rivaroxaban (XARELTO) 15 mg tablet Take 1 tablet (15 mg total) by mouth daily 90 tablet 3 025 Active Active Problems Problem Noted Date Diagnosed Date Peripheral arterial disease 09/16/2021 Assessment & Plan (10/31/2024 9:40 AM CDT): Details unknown but no claudication. Follow. Assessment & Plan (10/26/2023 10:29 AM CDT): Denies claudication. Continue aspirin and Lipitor. Assessment & Plan (10/20/2022 3:23 PM CDT): Doing reasonably well. Continue aspirin and statin. Assessment & Plan (09/16/2021 10:28 AM CDT): Details unknown. Continue secondary prevention with aspirin and statin. Shortness of breath 01/17/2021 10/20/2022 Assessment & Plan (10/31/2024 9:40 AM CDT): Suspect COPD. Apparently investigation underway. Dementia 09/21/2020 Overview (09/21/2020): SLUMS score 9 [...] (09/21/2020 11:17 AM CDT): Will fill out new autos delivery driver form as I don't feel patient [...] ordered Assessment & Plan (07/28/2020 9:42 AM CONTACT LENS MANUFACTURER): Likely related to uncontrolled allergies, though not [...] others. Assessment & Plan (05/06/2020 11:31 PM CONTACT LENS MANUFACTURER): Unsure exact cause. Depression vs nutrition vs dehydration vs possible parkinsons?? Consult ACO He is recently less than 2 years ago. No family or friend support. Probable poor nutrition. Difficulty getting him to take meds as intended. Frequent falls 05/06/2020 Assessment & Plan (11/03/2020 12:12 PM CDT): Pt refuses cane or walker for ambulation. Assessment & Plan (05/06/2020 11:40 PM CONTACT LENS MANUFACTURER): Refuses neuro or PT consult. I think he falls more from flexing his neck versus position changes, stumbling, or orthostasis. During the office visit that took at least 40 minutes, I spent over 50% of the time either counseling, educating, discussing plan of treatment, or answering questions today. Tremor, unspecified 05/06/2020 Assessment & Plan (05/06/2020 11:33 PM CONTACT LENS MANUFACTURER): Refuses consult with neuro or anything that might cost him money. Trial Requip (ropinirole) 0.25mg tid. Consult ACO Illiteracy 05/06/2020 Weight loss 01/26/2020 Assessment & Plan (07/28/2020 7:23 PM CONTACT LENS MANUFACTURER): Stable with Mirtazapine. Will increase the Mirtazapine to 30mg today. Assessment & Plan (05/06/2020 11:37 PM CONTACT LENS MANUFACTURER): Possible improvement with Mirtazapine (if he is [...] 8:55 AM CDT): Will refill Cardura to [facility] program. Hopefully this will allow patient to easy to access his medications. Will also order home health for social work and nursing services. With his blood pressure a elevated he likely needs a nurse to check this and assist him with medications. He is not cognitively aware enough to do this himself. Assessment & Plan (07/28/2020 7:26 PM CONTACT LENS MANUFACTURER): Will increase the doxazosin from 1 mg [...] readings. Assessment & Plan (07/28/2019 11:16 PM CONTACT LENS MANUFACTURER): New diagnosis. Start doxazosin (Cardura) for combined benefit of HTN and BPH. Call back with update in 2-3 weeks and blood pressure readings if possible. Chronic rhinitis 07/28/2019 Assessment & Plan (07/28/2019 11:20 PM CONTACT LENS MANUFACTURER): Start Flonase (fluticasone). Demonstrated use. Hearing difficulty of both ears 12/18/2018 Assessment & Plan (07/28/2020 7:45 PM CONTACT LENS MANUFACTURER): Tried to clean out ears today. Assessment & Plan (01/26/2020 11:12 AM CDT): Did not go to audiology due to cost. Assessment & Plan (12/18/2018 9:24 PM CDT): Audiology consult. 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 LDL is controlled well. Prediabetes 06/18/2017 Assessment & Plan (07/28/2020 7:21 PM CONTACT LENS MANUFACTURER): Will check new labs and make adjustments if needed. Assessment & Plan (01/26/2020 11:07 AM CDT): Will recheck fasting glucose today. Assessment & Plan (07/28/2019 11:16 PM CONTACT LENS MANUFACTURER): Get new labs Assessment & Plan (12/18/2018 9:23 PM CDT): Lower carb diet recommended. Assessment & Plan (06/18/2017 1:26 PM CONTACT LENS MANUFACTURER): Please cut down on sweets. Chronic idiopathic constipation 12/13/2016 Assessment & Plan (07/28/2020 7:21 PM CONTACT LENS MANUFACTURER): Chronic & stable on meds. Continue current [...] Lipitor. Assessment & Plan (07/28/2020 7:43 PM CONTACT LENS MANUFACTURER): Chronic & stable on meds. Continue current treatment. Assessment & Plan (01/26/2020 11:06 AM CDT): Stop rosuvastatin and start atorvastatin 20mg due to cost. Check labs today. Assessment & Plan (07/28/2019 11:20 PM CONTACT LENS MANUFACTURER): Get updated labs soon. Assessment & Plan (12/18/2018 9:23 PM CDT): Chronic & stable on meds. Continue current treatment. Assessment & Plan (06/18/2018 2:20 PM CONTACT LENS MANUFACTURER): Chronic & stable on meds. Continue current treatment. Assessment & Plan (03/29/2018 1:48 PM CDT): LDL was 69 on 12/10/2017. Continue Mevacor treatment Assessment & Plan (12/17/2017 9:41 PM CDT): Chronic & stable on meds. Continue current treatment. Assessment & Plan (06/18/2017 1:26 PM CONTACT LENS MANUFACTURER): Chronic & stable on meds. Continue current [...] pharmacy Assessment & Plan (07/28/2020 7:38 PM CONTACT LENS MANUFACTURER): Increase the Mirtazapine to 30mg daily and stop the Amitriptyline 10 mg daily, especially since he has constipation. Assessment & Plan (05/06/2020 11:37 PM CONTACT LENS MANUFACTURER): Patient symptomatic and not sure if he [...] treatment. Assessment & Plan (06/18/2018 2:20 PM CONTACT LENS MANUFACTURER): Chronic & stable on meds. Continue current treatment. Assessment & Plan (06/18/2017 1:26 PM CONTACT LENS MANUFACTURER): Chronic & stable on meds. Continue current treatment. Assessment & Plan (12/13/2016 3:05 PM CDT): Doing well with current treatment program and medications. No changes today Permanent atrial fibrillation 03/18/2015 Overview (10/07/2016): Atrial fibrillation Assessment & Plan (10/31/2024 9:39 AM CDT): Rhythm surprisingly regular today. Now agrees to oral anticoagulant therapy. Creatinine clearance almost certainly less than 50 so will start Xarelto 15 mg daily a BMP. Question whether his dizziness may represent a heart rhythm variability. Symptoms occur several times per week. Will obtain a 7 day long-term Holter monitor. Chronic obstructive pulmonary disease 02/15/2015 Assessment & Plan (07/28/2020 7:42 PM CONTACT LENS MANUFACTURER): Stable with out prescription medication. He feels [...] treatment. Assessment & Plan (06/18/2018 2:20 PM CONTACT LENS MANUFACTURER): Stable without regular use of inhalers. Assessment [...] medication(s) Assessment & Plan (07/28/2020 7:41 PM CONTACT LENS MANUFACTURER): Increase the doxazosin from 1 mg to 2 mg. Assessment & Plan (01/26/2020 11:09 AM CDT): Patient only took the doxazosin a couple times. Stop completely due to not taking it regularly and some lightheadedness when standing. Assessment & Plan (07/28/2019 11:16 PM CONTACT LENS MANUFACTURER): Start doxazosin (Cardura). Patient opted out of getting PSA testing at this time. Resolved Problems Problem Noted Date Diagnosed Date Resolved Date assisted (current) use of anticoagulants 11/13/2023 07/15/2024 Late onset Alzheimer's disea se without behavioral disturbance 09/20/2020 09/20/2020 Bilateral impacted cerumen 07/28/2020 0 09/17/2020 Assessment & Plan (07/28/2020 7:22 PM CONTACT LENS MANUFACTURER): Ear irrigation today. Encounter for Medicare annual [...] 12/18/19 Assessment & Plan (06/18/2017 1:20 PM CONTACT LENS MANUFACTURER): These look like a type of squamous [...] draws. Assessment & Plan (06/18/2018 2:20 PM CONTACT LENS MANUFACTURER): Chronic & stable on meds. Continue current [...] INR Assessment & Plan (06/18/2017 1:27 PM CONTACT LENS MANUFACTURER): Chronic & stable on meds. Continue current treatment. INRs are stable. Assessment & Plan (12/13/2016 3:06 PM CDT): INR waxes and wanes a lot so had discussion about eating a consistent diet. Continue warfarin and weekly INR checks. Major depressive disorder 02/15/2015 Overview (10/07/2016): MDD Chronic coronary artery disease 02/15/2015 12/13/2016 Overview (10/07/2016): Coronary artery disease Male erectile disorder 02/15/201505/06 Helicobacter pylori gastroin testinal tract infection 02/15/2015 12/13/2016 Overview (10/07/2016): Helicobacter pylori gastrointestinal tract infection Herpes zoster 02/15/2015 12/13/2016 Overview (10/07/2016): Herpes zoster Encounters Date Type Department Care Team Description 11/30/2024 Telephone [facility]iology [address] [place] [address] [address] [place] [address] Feliberto Ramey MD 11/10/2024 Results Follow-Up [facility] [address] [place] [address] Feliberto Ramey MD Basic metabolic panel 10/31/2024 9:45 AM CDT Ancillary Procedure [facility] [address] [place] [address] [address] [place] [address] Permanent atrial fibrillation (HCC) 10/31/2024 9:00 AM CDT Office Visit [facility] [address] [place] [address] [address] [place] [address] Feliberto Ramey MD Permanent atrial fibrillation (HCC) (Primary Dx); Atrial fibrillation, unspecified type (HCC); Shortness of breath; Peripheral arterial disease from Last 3 Months Immunizations Immunization Administration Dates Next Due Influenza, [...] often do you attend chur ch or church services? Never 05/13/2020 Do you [...] in a prison (including now)? 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 CONTACT LENS MANUFACTURER Gender Identity Not on file Sexual Orientation Not on file Obstetrics History Last Filed Vital Signs Vital Sign Reading Time Taken Comments Blood Pressure 134/62 10/31/2024 8:52 AM CDT Pulse 74 10/31/2024 8:52 AM CDT Temperature 36.9 C (98.4 F) 07/28/2020 8:55 AM CONTACT LENS MANUFACTURER Respiratory Rate 18 11/03/2020 9:16 AM CDT Oxygen Saturation 96% 10/31/2024 8:52 AM CDT Inhaled Oxygen Concentration - - Weight 68 kg (150 lb) 10/31/2024 8:52 AM CDT Height 182.9 cm (6') 10/31/2024 8:52 AM CDT Body Mass Index 20.34 10/31/2024 8:52 AM CDT Plan of Treatment Health Maintenance [...] 12/13/2019 Pneumococcal vaccine 65+ Completed 01/26/2020, 11/30 Procedures Procedure Name Priority Date/Time Associated Diagnosis Comments BASIC METABOLIC PANEL Routine 11/07/2024 9:56 AM CDT Permanent atrial fibrillation (HCC) EXTENDED/JAIL HOLTER PATCH (>48 HOURS UP TO 7 DAYS) Routine 10/31/2024 9:42 AM CDT Permanent atrial fibrillation (HCC) from Last 3 Months Results * (ABNORMAL) Basic metabolic panel (11/07/2024 9:56 AM CDT) Glucose 108(H) 65 - 99 mg/dL [facility] Comment: Fasting reference interval For someone without known diabetes, a glucose value between 100 and 125 mg/dL is consistent with prediabetes and should be confirmed with a follow-up test. BUN 25 7 - 25 mg/dL Shey Fair Creatinine 1.06 0.70 - 1.22 mg/dL [facility] Fair eGFR 68 > OR = 60 mL/min/1.7 3m2 [facility] Fair BUN/creat ratio SEE NOTE: 6 - 22 (calc) Shey [facility] [employer] Comment: Not Reported: BUN and Creatinine are within reference range. Sodium 134(L) 135 - 146 mmol/L [facility] Potassium, pl 4.3 3.5 - 5.3 mmol/L [facility] Chloride 102 98 - 110 mmol/L [facility] CO2 26 20 - 32 mmol/L [facility] Calcium 9.3 8.6 - 10.3 mg/dL [facility] Blood 11/07/2024 9:56 AM CDT 11/07/2024 9:56 AM CDT us Feliberto Ramey MD LAB BLOOD ORDERABLES F inal Result [facility] [address] [place] [address] * Extended/Senior Care Holter Patch (>48 hours up to 7 days) (10/31/2024 9:42 AM CDT) Anatomical Region Laterality Modality Electrocardiogra phy Narrative 11/30/2024 2:20 PM CDT [facility] Cardiology [facility], [place] [address] Cardiology Electrophysiology Kimberli Hodges, MD Elmer Lopez, MD Ranjan Sauceda, MD Jet Leiva, MD Brandon Andino, MD Brady Mcgee, MD Arturo Leyva, MD Lawrence Boateng, MD Jose M Barker, MD Spring Bojorquez, DYLAN Casillas, MD Keyona Sierra, DYLAN Ramey, MD Shannan Valverde, COURT COMMISSIONER Edson Young, MD Patrick Alexandra, MD Elmer Marquez, MD Salvador Lynn, MD Kiki David, DIRECTOR OF SUSTAINABILITY Brandon Robles, BARB Yates, BARB Ko, DIRECTOR OF SUSTAINABILITY THERMAL SURFACING MACHINE OPERATOR HOLTER MONITOR Patient Name: Noé Davila : 1935 Date of Service: 10/31/2024 Referring: Feliebrto Ramey,* Indications: Palpitations Results: 1. The study duration is 7 days and the technical quality is acceptable 2. The predominant rhythm is sinus rhythm with an average heart rate of 73 beats per minute and a range of 51-121 beats per minute. There were no significant pauses 3. During the monitoring period paroxysmal supraventricular tachycardia was noted at up to 180 beats per minute (19 episodes, maximum duration 44 beats). There were no episodes of atrial fibrillation or flutter. There were rare PACs and rare PVCs 4. The patient reported 18 events. Each event correlated with sinus rhythm with an isolated PAC or PVC and sinus tachycardia at up to 114 beats per minute Feliberto Ramey MD, [facility] Feliberto Ramey MD [facility] [place] [facility] Final Result from Last 3 Months Insurance MEDICARE MEDICARE MEDICARE MEDICARE LUCAS GARDNER [id number] Advance Directives For more information, please contact: [phone] Documents on File Type Date Recorded Patient Inventory Specialist Expl anation ADVANCE DIRECTIVE 09/16/2021 9:00 AM Power of Automobile Travel Club Counselor-Medical ADVANCE DIRECTIVE 06/23/2021 4:03 PM Annabel r of Automobile Travel Club Counselor-Medical ADVANCE DIRECTIVE 03/05/2019 10:13 AM POWER OF HVAC SPECIALIST-MEDICAL ADVANCE DIRECTIVE 03/04/2019 2:22 PM POWER OF HVAC SPECIALIST-MEDICAL Care Teams Jewel Hole Cornerer Relationship Specialty Start Date End Date Miller Mcmanus MD [address] [address] PCP - General Family Medicine 10/20/22
--- OUTSIDE RECORDS SUMMARY | 2024-12-18 17:23 | XMS_ITS | Clinical Summary ---
Author Organization [facility] Address [address] [place] [address] Phone Care Team Providers Care Railcar Switchman Name Role Phone Brandon Sandoval MD Primary Care Provider [phone] Allergies No known active allergies Medications aspirin [...] Comments Blood Pressure 166/90 08/08/2021 10:50 AM ELASTIC YARN TWISTER HELPER Pulse 86 08/08/2021 10:50 AM ELASTIC YARN TWISTER HELPER Temperature 37.1 C (98.8 F) 08/08/2021 10:50 AM ELASTIC YARN TWISTER HELPER Respiratory Rate 16 08/08/2021 10:50 AM ELASTIC YARN TWISTER HELPER Oxygen Saturation 95% 08/08/2021 10:50 AM ELASTIC YARN TWISTER HELPER Inhaled Oxygen Concentration - - Weight 69.4 kg (153 lb 1.6 oz) 08/08/2021 10:50 AM ELASTIC YARN TWISTER HELPER Height 181.9 cm (5' 11.6) 08/08/2021 10:[address] Body Mass Index 21 08/08/2021 10:50 AM ELASTIC YARN TWISTER HELPER Plan of Treatment Health Maintenance Due Date Last Done Comments Hepatitis C Virus (HCV) Screening 1935 TdaP Immunization 1935 Pneumococcal Immunization (5 0+ years) (1 of 1 - PCV) 11/22/1985 Zoster Immunization (1 of 2) 11/22/1985 Respiratory Syncytial Virus (RSV) Immunization (Adult) (1 - 1-dose 75+ series) 11/22/2010 SARS-COV-2 Immunization ( - season) 2024 Influenza Immunization (Seas on Ended) 2025 04/29/2022, 06/29/2021 Hepatitis B Immunization Aged Out No longer eligible based on patient's age to complete this topic Human Papillomavirus (HPV) Immunization Aged Out No longer eligible b ased on patient's age to complete this topic Meningococcal Immunization (ACWY) Aged Out No longer eligible b ased on patient's age to complete this topic Rotavirus Immunization Aged Out No lo nger eligible based on patient's age to complete this topic Insurance MEDICARE Advance Directives Documents on File Type Date Recorded Patient Plant Production Worker Expl anation Power of Road Manager for Health Care 06/29/2021 10:02 AM Care Teams Railcar Switchman Relationship Specialty Start Date End Date Brandon Sandoval MD PCP - General Internal Medicine 03/23/21
--- OUTSIDE RECORDS SUMMARY | 2024-12-18 17:23 | XMS_ITS | Referral Summary ---
Author Organization [facility] Address [address] [place] [address] Care Team Providers Care Sales Promotion Coordinator Name Role Phone Miller Mcmanus MD Primary Care Provider [phone] Encounters Date Type Department Care Team Description 11/30/2024 Telephone [facility] Cardiology [address] [place] [address] [address] [place] [address] Feliberto Ramey MD 11/10/2024 Results Follow-Up [facility] [address] [facility] [place] [address] Feliberto Ramey MD Basic metabolic panel 10/31/2024 9:45 AM CDT Ancillary Procedure [facility] [address] [place] [address] [address] [place] [address] Permanent atrial fibrillation (HCC) 10/31/2024 9:00 AM CDT Office Visit [facility] Cardiology [address] [place] [address] [address] [place] [address] Feliberto Ramey MD Permanent atrial fibrillation (HCC) (Primary Dx); Atrial fibrillation, unspecified type (HCC); Shortness of breath; Peripheral arterial disease from Last 3 Months Allergies No known [...] (09/21/2020 11:17 AM CDT): 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 Assessment & Plan (05/06/2020 11:31 PM [employer]): Unsure exact cause. Depression vs nutrition vs dehydration vs possible parkinsons?? Consult ACO He is recently less than 2 years ago. No family or friend support. Probable poor nutrition. Difficulty getting him to take meds as intended. Frequent falls 05/06/2020 Assessment & Plan (11/03/2020 12:12 PM CDT): Pt refuses cane or walker for ambulation. Assessment & Plan (05/06/2020 11:40 PM [employer]): Refuses neuro or PT consult. I think he falls more from flexing his neck versus position changes, stumbling, or orthostasis. During the office visit that took at least 40 minutes, I spent over 50% of the time either counseling, educating, discussing plan of treatment, or answering questions today. Tremor, unspecified 05/06/2020 Assessment & Plan (05/06/2020 11:33 PM [employer]): Refuses consult with neuro or anything that might cost him money. Trial Requip (ropinirole) 0.25mg tid. Consult ACO Illiteracy 05/06/2020 Weight loss 01/26/2020 Assessment & Plan (07/28/2020 7:23 PM [employer]): Stable with Mirtazapine. Will increase the Mirtazapine to 30mg today. Assessment & Plan (05/06/2020 11:37 PM [employer]): Possible improvement with Mirtazapine (if he is [...] 8:55 AM CDT): Will refill Cardura to [facility]. Hopefully this will allow patient to easy to access his medications. Will also order home health for social work and nursing services. With his blood pressure a elevated he likely needs a nurse to check this and assist him with medications. He is not cognitively aware enough to do this himself. Assessment & Plan (07/28/2020 7:26 PM [employer]): Will increase the doxazosin from 1 mg [...] readings. Assessment & Plan (07/28/2019 11:16 PM [employer]): New diagnosis. Start doxazosin (Cardura) for combined benefit of HTN and BPH. Call back with update in 2-3 weeks and blood pressure readings if possible. Chronic rhinitis 07/28/2019 Assessment & Plan (07/28/2019 11:20 PM [employer]): Start Flonase (fluticasone). Demonstrated use. Hearing difficulty of both ears 12/18/2018 Assessment & Plan (07/28/2020 7:45 PM [employer]): Tried to clean out ears today. Assessment & Plan (01/26/2020 11:12 AM CDT): Did not go to audiology due to cost. Assessment & Plan (12/18/2018 9:24 PM CDT): Audiology consult. 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 LDL is controlled well. Prediabetes 06/18/2017 Assessment & Plan (07/28/2020 7:21 PM [employer]): Will check new labs and make adjustments if needed. Assessment & Plan (01/26/2020 11:07 AM CDT): Will recheck fasting glucose today. Assessment & Plan (07/28/2019 11:16 PM [employer]): Get new labs Assessment & Plan (12/18/2018 9:23 PM CDT): Lower carb diet recommended. Assessment & Plan (06/18/2017 1:26 PM [employer]): Please cut down on sweets. Chronic idiopathic constipation 12/13/2016 Assessment & Plan (07/28/2020 7:21 PM [employer]): Chronic & stable on meds. Continue current [...] Lipitor. Assessment & Plan (07/28/2020 7:43 PM [employer]): Chronic & stable on meds. Continue current treatment. Assessment & Plan (01/26/2020 11:06 AM CDT): Stop rosuvastatin and start atorvastatin 20mg due to cost. Check labs today. Assessment & Plan (07/28/2019 11:20 PM [employer]): Get updated labs soon. Assessment & Plan (12/18/2018 9:23 PM CDT): Chronic & stable on meds. Continue current treatment. Assessment & Plan (06/18/2018 2:20 PM [employer]): Chronic & stable on meds. Continue current treatment. Assessment & Plan (03/29/2018 1:48 PM CDT): LDL was 69 on 12/10/2017. Continue Mevacor treatment Assessment & Plan (12/17/2017 9:41 PM CDT): Chronic & stable on meds. Continue current treatment. Assessment & Plan (06/18/2017 1:26 PM [employer]): Chronic & stable on meds. Continue current [...] pharmacy Assessment & Plan (07/28/2020 7:38 PM [employer]): Increase the Mirtazapine to 30mg daily and stop the Amitriptyline 10 mg daily, especially since he has constipation. Assessment & Plan (05/06/2020 11:37 PM [employer]): Patient symptomatic and not sure if he [...] treatment. Assessment & Plan (06/18/2018 2:20 PM [employer]): Chronic & stable on meds. Continue current treatment. Assessment & Plan (06/18/2017 1:26 PM [employer]): Chronic & stable on meds. Continue current [...] 02/15/2015 Assessment & Plan (07/28/2020 7:42 PM [employer]): Stable with out prescription medication. He feels [...] treatment. Assessment & Plan (06/18/2018 2:20 PM [employer]): Stable without regular use of inhalers. Assessment [...] medication(s) Assessment & Plan (07/28/2020 7:41 PM [employer]): Increase the doxazosin from 1 mg to 2 mg. Assessment & Plan (01/26/2020 11:09 AM CDT): Patient only took the doxazosin a couple times. Stop completely due to not taking it regularly and some lightheadedness when standing. Assessment & Plan (07/28/2019 11:16 PM [employer]): Start doxazosin (Cardura). Patient opted out of getting PSA testing at this time. 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 Encounter for Medicare annual [...] negative. Skin lesion of hand 06/18/2017 12/18/19 18 Assessment & Plan (06/18/2017 1:20 PM [employer]): These look like a type of squamous [...] draws. Assessment & Plan (06/18/2018 2:20 PM [employer]): Chronic & stable on meds. Continue current [...] INR Assessment & Plan (06/18/2017 1:27 PM [employer]): Chronic & stable on meds. Continue current [...] place to sleep or slept in a care home (including now)? 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 [employer] Gender Identity Not on file Sexual Orientation Not on file Last Filed Vital Signs Vital Sign Reading Time Taken Comments Blood Pressure 134/62 10/31/2024 8:52 AM CDT Pulse 74 10/31/2024 8:52 AM CDT Temperature 36.9 C (98.4 F) 07/28/2020 8:55 AM [employer] Respiratory Rate 18 11/03/2020 9:16 AM CDT Oxygen Saturation 96% 10/31/2024 8:52 AM CDT Inhaled Oxygen Concentration - - Weight 68 kg (150 lb) 10/31/2024 8:52 AM CDT Height 182.9 cm (6') 10/31/2024 8:52 AM CDT Body Mass Index 20.34 10/31/2024 8:52 AM CDT Plan of Treatment Not on file Procedures Procedure Name Priority Date/Time Associated Diagnosis Comments BASIC METABOLIC PANEL Routine 11/07/2024 9:56 AM CDT Permanent atrial fibrillation (HCC) EXTENDED/[facility] HOLTER PATCH (>48 HOURS UP TO 7 DAYS) Routine 10/31/2024 9:42 AM CDT Permanent atrial fibrillation (HCC) from Last 3 Months Results * (ABNORMAL) Basic metabolic panel (11/07/2024 9:56 AM CDT) Glucose 108(H) 65 - 99 mg/dL [facility] Comment: Fasting reference interval For someone without known diabetes, a glucose value between 100 and 125 mg/dL is consistent with prediabetes and should be confirmed with a follow-up test. BUN 25 7 - 25 mg/dL [facility] Creatinine 1.06 0.70 - 1.22 mg/dL [facility] eGFR 68 > OR = 60 mL/min/1.7 3m2 [facility] BUN/creat ratio SEE NOTE: 6 - 22 (calc) [facility] Comment: Not Reported: BUN and Creatinine are within reference range. Sodium 134(L) 135 - 146 mmol/L [facility] Potassium, pl 4.3 3.5 - 5.3 mmol/L [facility] Chloride 102 98 - 110 mmol/L [facility] CO2 26 20 - 32 mmol/L [facility] Calcium 9.3 8.6 - 10.3 mg/dL [facility] Blood 11/07/2024 9:56 AM CDT 11/07/2024 9:56 AM CDT us Feliberto Ramey MD LAB BLOOD ORDERABLES F inal Result [facility] [address] [place] [address] * Extended/Half-Way Holter Patch (>48 hours up to 7 days) (10/31/2024 9:42 AM CDT) Anatomical Region Laterality Modality Electrocardiogra phy Narrative 11/30/2024 2:20 PM CDT [facility] Cardiology [address] [facility] [address] [place] [id number] Cardiology Electrophysiology Kimberli Hodges, MD Elmer Lopez, MD Ranjan Sauceda, MD Jet Leiva, MD Brandon Andino, MD Brady Mcgee, MD Arturo Leyva, MD Lawrence Boateng, MD Jose M Barker, MD Spring Bojorquez, STORERO[employer] SUPERVISOR Diaz Casillas, MD Keyona Sierra, STORERO[employer] SUPERVISOR Feliberto Ramey, MD Shannan Valverde, [facility] Edson Young, MD Patrick Alexandra, MD Elmer Marquez, MD Salvador Lynn, MD Kiki David, [employer] SUPERVISOR Brandon Robles, PA Mira Yates, PA Naty Ko, [employer] SUPERVISOR DELIVERER MERCHANDISE HOLTER MONITOR Patient Name: Noé Marcelina Davila : 1935 Date of Service: 10/31/2024 Referring: Feliberto Ramey,* Indications: Palpitations Results: 1. The study [...] 114 beats per minute Feliberto Ramey MD, [facility] Feliberto Ramey MD [facility] [place] OCEDURES Final Result from Last 3 Months Insurance MEDICARE MEDICARE MEDICARE MEDICARE [facility] Advance Directives For more information, please contact: [phone] Documents on File Type Date Recorded Patient Career Advisor Expl anation ADVANCE DIRECTIVE 09/16/2021 9:00 AM Power of Human Services Professional-Medical ADVANCE DIRECTIVE 06/23/2021 4:03 PM Annabel r of Human Services Professional-Medical ADVANCE DIRECTIVE 03/05/2019 10:13 AM POWER OF ASSOCIATE DENTIST-MEDICAL ADVANCE DIRECTIVE 03/04/2019 2:22 PM POWER OF ASSOCIATE DENTIST-MEDICAL Care Teams Sales Promotion Coordinator Relationship Specialty Start Date End Date Miller Mcmanus MD [address] [address] PCP - General Family Medicine 10/20/22
[2024-12-18 17:24] VITALS: BP 162/89; PULSE 76; RESP 16; TEMP 36.3; O2SAT 97
--- NOTE | 2024-12-18 18:11 | ECG_ITS ---
Test Date: 2024-12-18 18:22:27 Measurements Intervals [place] Rate: 70 P: 88 NC: 174 QRS: -51 QRSD: 152 T: 55 QT: 405 QTc: 439 Interpretive Statements SINUS RHYTHM WITH OCCASIONAL SUPRAVENTRICULAR PREMATURE COMPLEXES RIGHT BUNDLE BRANCH BLOCK LEFT ANTERIOR FASCICULAR BLOCK CANNOT R/O SEPTAL INFARCT, AGE INDETERMINATE BASELINE ARTIFACT- I, II, III, AVR, AVL, AVF, V4-V6 ABNORMAL ECG Compared to ECG 07/12/2024 23:02:20 NO SIGNIFICANT CHANGE Electronically Signed On 12-18-2024 20:14:19 CDT by López Ndiaye D.O.
--- NOTE | 2024-12-18 18:13 | ED_ITS ---
HPI - Dizziness General Chief Complaint: Dizziness <Mansi Sanchez III, DO - Last Filed: 12/18/24 18:21> Stated Complaint: chronic dizziness, worse today, not able to walk <Mansi Sanchez III, DO - Last Filed: 12/18/24 18:21> Time Seen by Provider: 12/18/24 17:35 <Mnasi Sanchez III, DO - Last Filed: 12/18/24 18:21> History of Present Illness HPI Narrative: Pt presents with intermittent dizziness for years and unsteady gait. Pt says he gets dizzy and sometimes falls when he is up and walking. Pt says he does not feel like he is going to pass out. Pt denies CP ro SOB or one sided weakness. Pt has seen his cardiologis and ENT for this without definite diagnosis. Pt does not take any meds for this. <Mansi Sanchez III, DO - Last Filed: 12/18/24 18:21> Related Data Home Medications: Home Medications ?Medication ?Instructions ?Recorded ?Confirmed ?Last Taken ?Type aspirin 81 mg tablet,delayed 81 mg PO DAILY 12/12/21 10/20/2422 History release <Mansi Sanchez III, DO - Last Filed: 12/18/24 18:21> Allergies/Adverse Reactions: Allergies Allergy/AdvReac Type Severity Reaction Status Date / Time No Known Allergies Allergy Verified 12/18/24 18:36 <Mansi Sanchez III, DO - Last Filed: 12/18/24 18:21> Review of Systems 2 Review of Systems: All systems reviewed & are unremarkable except as noted in HPI and below <Mansi Sanchez III, DO - Last Filed: 12/18/24 18:21> [facility] Past Medical History Medical History: Medical History Lumbar radiculopathy Lumbar spondylosis Peripheral vascular disease Chronic obstructive pulmonary disease Benign prostatic hyperplasia Depression Seasonal allergies Anemia Hypertension Atrial fibrillation Anxiety Constipation Dementia Hyperlipidemia <Mansi Sanchez III, DO - Last Filed: 12/18/24 18:21> Surgical History Surgical History: Surgical History Status post peripheral artery angioplasty with insertion of stent History of cholecystectomy <Mansi Sanchez III, DO - Last Filed: 12/18/24 18:21> Family History Family History: Family History Other Unknown family medical history <Mansi Lew Sanchez III, DO - Last Filed: 12/18/24 18:21> Social History Social History: Social History Social History: Healthcare power of [place] attorney: Roseanne Noguera. Code status: Smoking packs per day: 1 Smoking cigarettes per day: 20.0 Smoking status: Former smoker Tobacco type: cigarettes Smoking end date: 07/02/08 Alcohol intake: never Drinks per week: 2 Substance use: never Substance use type: does not use Do You Feel Safe in your Home?: Yes Lack of Transportation: No Lack of Food: Never True Current Housing: I Have Housing Concerned About Future Housing: No Difficulty Paying Gas/Electric Bills: No Difficulty Paying for Meds: No Currently Unemployed: No Education: Grade School Difficulty w/ Childcare or Family Care: No Spiritual care concerns: No <Mansi Lew Sanchez III, DO - Last Filed: 12/18/24 18:21> Exam 2 Const: General: healthy appearing and no acute distress <Mansi Lew Sanchez III, DO - Last Filed: 12/18/24 18:21> Nutritional Appearance: well nourished <Mansi Lew Sanchez III, DO - Last Filed: 12/18/24 18:21> Orientation/consciousness: patient oriented x3 <Mansi Lew Sanchez III, DO - Last Filed: 12/18/24 18:21> Limitations: no limitations <Mansi Lew Sanchez III, DO - Last Filed: 12/18/24 18:21> HENMT: Ears: TM's normal bilaterally <Mansi Lew Sanchez III, DO - Last Filed: 12/18/24 18:21> Eyes: Pupils: Equal, round and reactive pupils present <Mansi Lew Sanchez III, DO - Last Filed: 12/18/24 18:21> EOM: EOMs intact bilaterally <Mansi Lew Sanchez III, DO - Last Filed: 12/18/24 18:21> Neck: Neck: normal visual inspection and no lymphadenopathy <Mansi Lew Sanchez III, DO - Last Filed: 12/18/24 18:21> Resp: Effort & Inspection: normal respiratory effort <Mansi Lew Sanchez III, DO - Last Filed: 12/18/24 18:21> Auscultation: clear to auscultation bilaterally <Mansi Lew Sanchez III, DO - Last Filed: 12/18/24 18:21> Cardio: Rate: regular rate <Mansi Lew Sanchez III, DO - Last Filed: 12/18/24 18:21> Rhythm: regular rhythm <Mansi Lew Sanchez III, DO - Last Filed: 12/18/24 18:21> GI: Auscultation: normal bowel sounds <Mansi Lew Sanchez III, DO - Last Filed: 12/18/24 18:21> Skin: General skin exam: normal color <Mansi Lew Sanchez III, DO - Last Filed: 12/18/24 18:21> Rashes: no rashes <Mansi Lew Sanchez III, DO - Last Filed: 12/18/24 18:21> Wounds: no wounds <Mansi Lew Sanchez III, DO - Last Filed: 12/18/24 18:21> Neuro: General: patient oriented x3, moves all extremities, no meningeal signs, no focal motor deficits and CN's II-XI intact bilaterally <Mansi Lew Sanchez III, DO - Last Filed: 12/18/24 18:21> Cranial nerves: Yes Nystagmus not present <Mansi Lew Sanchez III, DO - Last Filed: 12/18/24 18:21> Speech: normal speech <Mansi Lew Sanchez III, DO - Last Filed: 12/18/24 18:21> Other: when walking pt said he felt a little dizzy and did have to episodes where he briefly lost his balance leaning to the right but quickly recovered. <Mansi Lew Sanchez III, DO - Last Filed: 12/18/24 18:21> Extrem: General: normal to inspection and no clubbing, cyanosis or edema < Mansi Lew Sanchez III, DO - Last Filed: 12/18/24 18:21> Psych: Mental Status: mental status grossly normal <Mansi Lew Sanchez III, DO - Last Filed: 12/18/24 18:21> Affect: normal affect <Mansi Lew Sanchez III, DO - Last Filed: 12/18/24 18:21> Course Vital Signs Vital signs: Vital Signs Temperature 36.3 C L 12/18/24 17:24 Pulse Rate 76 12/18/24 17:24 Respiratory Rate 16 12/18/24 17:24 Blood Pressure 162/89 H 12/18/24 17:24 Pulse Oximetry 97 12/18/24 17:24 Oxygen Delivery Room Air 12/18/24 17:24 Temperature 36.3 C L 12/18/24 17:24 Pulse Rate 76 12/18/24 18:33 Respiratory Rate 18 12/18/24 18:33 Blood Pressure 182/91 H 12/18/24 18:33 Pulse Oximetry 100 12/18/24 18:33 Oxygen Delivery Room Air 12/18/24 18:33 <Mansi Lew Sanchez III, DO - Last Filed: 12/18/24 18:21> Vital Signs Temperature 36.3 C L 12/18/24 17:24 Pulse Rate 76 12/18/24 17:24 Respiratory Rate 16 12/18/24 17:24 Blood Pressure 162/89 H 12/18/24 17:24 Pulse Oximetry 97 12/18/24 17:24 Oxygen Delivery Room Air 12/18/24 17:24 Temperature 36.3 C L 12/18/24 17:24 Pulse Rate 76 12/18/24 18:33 Respiratory Rate 18 12/18/24 18:33 Blood Pressure 182/91 H 12/18/24 18:33 Pulse Oximetry 100 12/18/24 18:33 Oxygen Delivery Room Air 12/18/24 18:33 <Bg Mars MD - Last Filed: 12/18/24 20:24> MDM - Dizziness MDM Narrative Medical decision making narrative: Pt has intermittent dizziness for years. reproduced when up and walking and sometimes loses balance and falls. Pt denies MUJICA. Pt has seen ENT and cardiology as well as PCP for this in past. will get orthostatics and ekg and labs and ct head. might tyr some antivert as could be bppv. <Mansi Lew Sanchez III, DO - Last Filed: 12/18/24 18:21> Pt has intermittent dizziness for years. reproduced when up and walking and sometimes loses balance and falls. Pt denies MUJICA. Pt has seen ENT and cardiology as well as PCP for this in past. will get orthostatics and ekg and labs and ct head. might tyr some antivert as could be bppv. Patient was signed out pending results of CT scan and results treatment. CT scan showed possible cerebellar infarct the case was discussed with the hospitalist patient admitted for further care <Bg Mars MD - Last Filed: 12/18/24 20:24> Differential Diagnosis Differential diagnosis: Likely benign paroxysmal positional vertigo, orthostatic hypotension and cerebrovascular accident <Mansi Sanchez III, DO - Last Filed: 12/18/24 18:21> Lab Data Result diagrams: 12/18/24 18:37 12/18/24 18:37 <Mansi Sanchez III, DO - Last Filed: 12/18/24 18:21> Labs: Lab Results 12/18/24 Range/Units 18:37 WBC 6.6 (4.5-10.0) K/mm3 RBC 4.61 (4.6-6.20) M/mm3 Hgb 14.1 (14.0-18.0) g/dL Hct 42.9 (42.0-52.0) % MCV 93.1 (80-100) fl MCH 30.6 (26-34) pg MCHC 32.9 (32-36) g/dl RDW 13.5 (11.5-14.5) % Plt Count 182 (150-375) k/mm3 MPV 9.3 (7.4-10.4) fl Immature Gran % (Auto) 0.3 (0-0.5) % Neut % (Auto) 69.6 (45.5-73.1) % Lymph % (Auto) 16.0 L (18.3-44.2) % [place] % (Auto) 8.2 (2.6-8.5) % Eos % (Auto) 5.0 H (0-4.4) % Baso % (Auto) 0.9 (0.2-1.2) % Lymph # (Auto) 1.05 (0.9-3.2) K/mm3 [place] # (Auto) 0.5 (0.1-0.6) K/mm3 Eos # (Auto) 0.3 (0-0.3) K/mm3 Baso # (Auto) 0.1 (0.0-0.1) K/mm3 Abs Immat Gran (auto) 0.02 (0.00-0.031) K/mm3 Absolute Neuts (auto) 4.6 (1.3-6.7) K/mm3 Absolute Nucleated RBC 0.000 (0.0-0.012) K/mm3 Nucleated RBC % 0.0 (0.0-0.2) % PT 13.5 (11.1-14.7) Seconds INR 1.0 APTT 28.1 (22.3-36.8) Seconds Sodium 133 L (137-145) mmol/L Potassium 4.2 (3.4-5.0) mmol/L Chloride 101 (98-107) mmol/L Carbon Dioxide 24 (22-30) mmol/L Anion Gap 8 (4-12) mmol/L BUN 24 H (9-20) mg/dL Creatinine 1.10 (0.7-1.3) mg/dL Estim Creat Clear Calc 36 ml/min Estimated GFR > 60 (59 - ) Glucose 96 (65-110) mg/dL Calcium 9.3 (8.4-10.2) mg/dL Total Bilirubin 0.7 (0.2-1.3) mg/dL AST 25 (17-59) U/L ALT 15 (6-50) U/L Alkaline Phosphatase 117 (38-126) U/L Total Protein 6.9 (6.3-8.2) g/dL Albumin 4.0 (3.5-5.1) g/dL <Mansi Sanchez III, DO - Last Filed: 12/18/24 18:21> Lab Results 12/18/24 Range/Units 18:37 WBC 6.6 (4.5-10.0) K/mm3 RBC 4.61 (4.6-6.20) M/mm3 Hgb 14.1 (14.0-18.0) g/dL Hct 42.9 (42.0-52.0) % MCV 93.1 (80-100) fl MCH 30.6 (26-34) pg MCHC 32.9 (32-36) g/dl RDW 13.5 (11.5-14.5) % Plt Count 182 (150-375) k/mm3 MPV 9.3 (7.4-10.4) fl Immature Gran % (Auto) 0.3 (0-0.5) % Neut % (Auto) 69.6 (45.5-73.1) % Lymph % (Auto) 16.0 L (18.3-44.2) % [place] % (Auto) 8.2 (2.6-8.5) % Eos % (Auto) 5.0 H (0-4.4) % Baso % (Auto) 0.9 (0.2-1.2) % Lymph # (Auto) 1.05 (0.9-3.2) K/mm3 [place] # (Auto) 0.5 (0.1-0.6) K/mm3 Eos # (Auto) 0.3 (0-0.3) K/mm3 Baso # (Auto) 0.1 (0.0-0.1) K/mm3 Abs Immat Gran (auto) 0.02 (0.00-0.031) K/mm3 Absolute Neuts (auto) 4.6 (1.3-6.7) K/mm3 Absolute Nucleated RBC 0.000 (0.0-0.012) K/mm3 Nucleated RBC % 0.0 (0.0-0.2) % PT 13.5 (11.1-14.7) Seconds INR 1.0 APTT 28.1 (22.3-36.8) Seconds Sodium 133 L (137-145) mmol/L Potassium 4.2 (3.4-5.0) mmol/L Chloride 101 (98-107) mmol/L Carbon Dioxide 24 (22-30) mmol/L Anion Gap 8 (4-12) mmol/L BUN 24 H (9-20) mg/dL Creatinine 1.10 (0.7-1.3) mg/dL Estim Creat Clear Calc 36 ml/min Estimated GFR > 60 (59 - ) Glucose 96 (65-110) mg/dL Calcium 9.3 (8.4-10.2) mg/dL Total Bilirubin 0.7 (0.2-1.3) mg/dL AST 25 (17-59) U/L ALT 15 (6-50) U/L Alkaline Phosphatase 117 (38-126) U/L Total Protein 6.9 (6.3-8.2) g/dL Albumin 4.0 (3.5-5.1) g/dL <Bg Mars MD - Last Filed: 12/18/24 20:24> Discharge Plan Discharge Clinical Impression: Dizziness, Unsteady gait, Acute CVA (cerebrovascular accident) <Mansi Lew Gardnerver III, DO - Last Filed: 12/18/24 18:21> Patient Disposition: Still a Patient <Mansi Sanchez III, DO - Last Filed: 12/18/24 18:21> Condition: Stable <Mansi Sanchez III, DO - Last Filed: 12/18/24 18:21> Patient Language: [place] <Mansi Sanchez III, DO - Last Filed: 12/18/24 18:21> Prescriptions: No Action buspirone 5 mg tablet 5 mg PO BID PRN (Reason: anxiety) Qty: 60 0RF losartan 50 mg tablet 75 mg PO DAILY 90 Days Qty: 135 3RF ipratropium bromide 21 mcg (0.03 %) spray,non-aerosol 2 spray intranasal .qd-tid Qty: 30 3RF Rx Instructions: administer into each nostril. Aim back/up/out aspirin 81 mg tablet,delayed release (DR/EC) 81 mg PO DAILY polyethylene glycol 3350 [Miralax] 17 gram Powder In Packet 17 g PO QAM Qty: 7 0RF fluticasone propionate [Flonase Allergy Relief] 50 mcg/actuation spray,suspension 1 spray intranasal BID Qty: 16 0RF Rx Instructions: administer into each nostril atorvastatin 20 mg tablet 20 mg PO DAILY Qty: 30 11RF doxazosin 1 mg tablet 1 mg PO DAILY Qty: 90 3RF albuterol sulfate 90 mcg/actuation HFA aerosol inhaler 1 - 2 inh inhalation Q4-6H PRN (Reason: shortness of breath or wheezing) Qty: 8.5 2RF mupirocin [Centany] 2 % ointment 1 applic topical BID PRN (Reason: wound care) Qty: 22 5RF <Mansi Gardnerver III, DO - Last Filed: 12/18/24 18:21> Follow-up/Referrals: Mely Gupta NP [Primary Care Provider] - <Mansi Sanchez III, DO - Last Filed: 12/18/24 18:21> Time of Disposition: 20:24 <Mansi Sanchez III, DO - Last Filed: 12/18/24 18:21> 20:24 <Bg Mars MD - Last Filed: 12/18/24 20:24> Sign Out Sign Out Data: Patient Sign Out occurred on 12/18/24 at 19:10. Patient's care was discussed, and care was transferred from Mansi Sanchez III, DO to Bg Mars MD. <Mansi Sanchez III, DO - Last Filed: 12/18/24 18:21>
--- OUTSIDE RECORDS SUMMARY | 2024-12-18 18:27 | XMS_ITS | Clinical Summary ---
Author Organization [facility] Address [address] [place] [address] Phone Care Team Providers Care Receipt And Report Clerk Name Role Phone Brandon Sandoval MD Primary Care Provider [phone] Allergies No known active allergies Medications aspirin [...] Comments Blood Pressure 166/90 08/08/2021 10:50 AM HEALTH CARE TECHNICIAN Pulse 86 08/08/2021 10:50 AM HEALTH CARE TECHNICIAN Temperature 37.1 C (98.8 F) 08/08/2021 10:50 AM HEALTH CARE TECHNICIAN Respiratory Rate 16 08/08/2021 10:50 AM HEALTH CARE TECHNICIAN Oxygen Saturation 95% 08/08/2021 10:50 AM HEALTH CARE TECHNICIAN Inhaled Oxygen Concentration - - Weight 69.4 kg (153 lb 1.6 oz) 08/08/2021 10:50 AM HEALTH CARE TECHNICIAN Height 181.9 cm (5' 11.6) 08/08/2021 10:[address] Body Mass Index 21 08/08/2021 10:50 AM HEALTH CARE TECHNICIAN Plan of Treatment Health Maintenance Due Date [...] Documents on File Type Date Recorded Patient Product Design Specialist Expl anation Power of Sales Account Representative for Health Care 06/29/2021 10:02 AM Care Teams Receipt And Report Clerk Relationship Specialty Start Date End Date Brandon Sandoval MD PCP - General Internal Medicine 03/23/21
--- OUTSIDE RECORDS SUMMARY | 2024-12-18 18:27 | XMS_ITS | Referral Summary ---
Author Organization [facility] Address [address] [place] [address] Care Team Providers Care Seam Rubber Name Role Phone Miller Mcmanus MD Primary Care Provider [phone] Encounters Date Type Department Care Team Description 11/30/2024 Telephone [facility] Cardiology [address] [place] [address] [address] [place] [address] Feliberto Ramey MD 11/10/2024 Results Follow-Up [facility] Cardiology [address] [facility] [address] [place] [address] Feliberto Ramey MD Basic metabolic panel 10/31/2024 9:45 AM CDT Ancillary Procedure [facility] Cardiology [address] [place] [address] [address] [place] [address] Permanent atrial fibrillation (HCC) 10/31/2024 9:00 AM CDT Office Visit [facility] Cardiology [address] [place] [address] [address] [place] [address] Feliberto Ramey MD Permanent atrial [...] (09/21/2020 11:17 AM CDT): 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 Assessment & Plan (05/06/2020 11:31 PM DEPUTY CLERK OF COURT): Unsure exact cause. Depression vs nutrition vs dehydration vs possible parkinsons?? Consult ACO He is recently less than 2 years ago. No family or friend support. Probable poor nutrition. Difficulty getting him to take meds as intended. Frequent falls 05/06/2020 Assessment & Plan (11/03/2020 12:12 PM CDT): Pt refuses cane or walker for ambulation. Assessment & Plan (05/06/2020 11:40 PM DEPUTY CLERK OF COURT): Refuses neuro or PT consult. I think he falls more from flexing his neck versus position changes, stumbling, or orthostasis. During the office visit that took at least 40 minutes, I spent over 50% of the time either counseling, educating, discussing plan of treatment, or answering questions today. Tremor, unspecified 05/06/2020 Assessment & Plan (05/06/2020 11:33 PM DEPUTY CLERK OF COURT): Refuses consult with neuro or anything that might cost him money. Trial Requip (ropinirole) 0.25mg tid. Consult ACO Illiteracy 05/06/2020 Weight loss 01/26/2020 Assessment & Plan (07/28/2020 7:23 PM DEPUTY CLERK OF COURT): Stable with Mirtazapine. Will increase the Mirtazapine to 30mg today. Assessment & Plan (05/06/2020 11:37 PM DEPUTY CLERK OF COURT): Possible improvement with Mirtazapine (if he is [...] 8:55 AM CDT): Will refill Cardura to [employer] program. Hopefully this will allow patient to easy to access his medications. Will also order home health for social work and nursing services. With his blood pressure a elevated he likely needs a nurse to check this and assist him with medications. He is not cognitively aware enough to do this himself. Assessment & Plan (07/28/2020 7:26 PM DEPUTY CLERK OF COURT): Will increase the doxazosin from 1 mg [...] readings. Assessment & Plan (07/28/2019 11:16 PM DEPUTY CLERK OF COURT): New diagnosis. Start doxazosin (Cardura) for combined benefit of HTN and BPH. Call back with update in 2-3 weeks and blood pressure readings if possible. Chronic rhinitis 07/28/2019 Assessment & Plan (07/28/2019 11:20 PM DEPUTY CLERK OF COURT): Start Flonase (fluticasone). Demonstrated use. Hearing difficulty of both ears 12/18/2018 Assessment & Plan (07/28/2020 7:45 PM DEPUTY CLERK OF COURT): Tried to clean out ears today. Assessment & Plan (01/26/2020 11:12 AM CDT): Did not go to audiology due to cost. Assessment & Plan (12/18/2018 9:24 PM CDT): Audiology consult. 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 LDL is controlled well. Prediabetes 06/18/2017 Assessment & Plan (07/28/2020 7:21 PM DEPUTY CLERK OF COURT): Will check new labs and make adjustments if needed. Assessment & Plan (01/26/2020 11:07 AM CDT): Will recheck fasting glucose today. Assessment & Plan (07/28/2019 11:16 PM DEPUTY CLERK OF COURT): Get new labs Assessment & Plan (12/18/2018 9:23 PM CDT): Lower carb diet recommended. Assessment & Plan (06/18/2017 1:26 PM DEPUTY CLERK OF COURT): Please cut down on sweets. Chronic idiopathic constipation 12/13/2016 Assessment & Plan (07/28/2020 7:21 PM DEPUTY CLERK OF COURT): Chronic & stable on meds. Continue current [...] Lipitor. Assessment & Plan (07/28/2020 7:43 PM DEPUTY CLERK OF COURT): Chronic & stable on meds. Continue current treatment. Assessment & Plan (01/26/2020 11:06 AM CDT): Stop rosuvastatin and start atorvastatin 20mg due to cost. Check labs today. Assessment & Plan (07/28/2019 11:20 PM DEPUTY CLERK OF COURT): Get updated labs soon. Assessment & Plan (12/18/2018 9:23 PM CDT): Chronic & stable on meds. Continue current treatment. Assessment & Plan (06/18/2018 2:20 PM DEPUTY CLERK OF COURT): Chronic & stable on meds. Continue current treatment. Assessment & Plan (03/29/2018 1:48 PM CDT): LDL was 69 on 12/10/2017. Continue Mevacor treatment Assessment & Plan (12/17/2017 9:41 PM CDT): Chronic & stable on meds. Continue current treatment. Assessment & Plan (06/18/2017 1:26 PM DEPUTY CLERK OF COURT): Chronic & stable on meds. Continue current [...] pharmacy Assessment & Plan (07/28/2020 7:38 PM DEPUTY CLERK OF COURT): Increase the Mirtazapine to 30mg daily and stop the Amitriptyline 10 mg daily, especially since he has constipation. Assessment & Plan (05/06/2020 11:37 PM DEPUTY CLERK OF COURT): Patient symptomatic and not sure if he [...] treatment. Assessment & Plan (06/18/2018 2:20 PM DEPUTY CLERK OF COURT): Chronic & stable on meds. Continue current treatment. Assessment & Plan (06/18/2017 1:26 PM DEPUTY CLERK OF COURT): Chronic & stable on meds. Continue current [...] 02/15/2015 Assessment & Plan (07/28/2020 7:42 PM DEPUTY CLERK OF COURT): Stable with out prescription medication. He feels [...] treatment. Assessment & Plan (06/18/2018 2:20 PM DEPUTY CLERK OF COURT): Stable without regular use of inhalers. Assessment [...] medication(s) Assessment & Plan (07/28/2020 7:41 PM DEPUTY CLERK OF COURT): Increase the doxazosin from 1 mg to 2 mg. Assessment & Plan (01/26/2020 11:09 AM CDT): Patient only took the doxazosin a couple times. Stop completely due to not taking it regularly and some lightheadedness when standing. Assessment & Plan (07/28/2019 11:16 PM DEPUTY CLERK OF COURT): Start doxazosin (Cardura). Patient opted out of getting PSA testing at this time. 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 Encounter for Medicare annual [...] 18 Assessment & Plan (06/18/2017 1:20 PM DEPUTY CLERK OF COURT): These look like a type of squamous [...] draws. Assessment & Plan (06/18/2018 2:20 PM DEPUTY CLERK OF COURT): Chronic & stable on meds. Continue current [...] INR Assessment & Plan (06/18/2017 1:27 PM DEPUTY CLERK OF COURT): Chronic & stable on meds. Continue current [...] on file Legal Sex Male 3:40 AM DEPUTY CLERK OF COURT Gender Identity Not on file Sexual Orientation Not on file Last Filed Vital Signs Vital Sign Reading Time Taken Comments Blood Pressure 134/62 10/31/2024 8:52 AM CDT Pulse 74 10/31/2024 8:52 AM CDT Temperature 36.9 C (98.4 F) 07/28/2020 8:55 AM DEPUTY CLERK OF COURT Respiratory Rate 18 11/03/2020 9:16 AM CDT [...] 9:56 AM CDT Permanent atrial fibrillation (HCC) EXTENDED/SENIOR CARE HOLTER PATCH (>48 HOURS UP TO 7 DAYS) Routine 10/31/2024 9:42 AM CDT Permanent atrial fibrillation (HCC) from Last 3 Months Results * (ABNORMAL) Basic metabolic panel (11/07/2024 9:56 AM CDT) Glucose 108(H) 65 - 99 mg/dL [facility] [employer] Comment: Fasting reference interval For someone without known diabetes, a glucose value between 100 and 125 mg/dL is consistent with prediabetes and should be confirmed with a follow-up test. BUN 25 7 - 25 mg/dL [employer] Creatinine 1.06 0.70 - 1.22 mg/dL [facility] eGFR 68 > OR = 60 mL/min/1.7 3m2 [facility] BUN/creat ratio SEE NOTE: 6 - 22 (calc) [employer] [facility] Comment: Not Reported: BUN and Creatinine are within reference range. Sodium 134(L) 135 - 146 mmol/L [employer] Potassium, pl 4.3 3.5 - 5.3 mmol/L [facility]v Chloride 102 98 - 110 mmol/L [facility] CO2 26 20 - 32 mmol/L [facility] Calcium 9.3 8.6 - 10.3 mg/dL [employer] Blood 11/07/2024 9:56 AM CDT 11/07/2024 9:56 AM CDT us Feliberto Ramey MD LAB BLOOD ORDERABLES F inal Result [facility] [address] [place] [address] * Extended/Long-Term Holter Patch (>48 hours up to 7 days) (10/31/2024 9:42 AM CDT) Anatomical Region Laterality Modality Electrocardiogra phy Narrative 11/30/2024 2:20 PM CDT [facility] Cardiology [address] [facility] [address] [place] [address] Cardiology Electrophysiology Kimberli Hodges, MD Elmer Lopez, MD Ranjan Sauceda, MD Jet Leiva, MD Brandon Andino, MD Brady Mcgee, MD Arturo Leyva, MD Lawrence Boatneg, MD Jose M Barker, MD Spring Bojorquez, WIRE ROPE SLING MAKER Diaz Casillas, MD Keyona Sierra, WIRE ROPE SLING MAKER Feliberto Ramey, MD Shannan Valverde, [facility] Edson Yuong, MD Patrick Alexandra, MD Elmer Marquez, MD Salvador Lynn, MD Kiki David, WIRE ROPE SLING MAKER Brandon Robles, PA Mira Yates, PA Naty Ko, WIRE ROPE SLING MAKER ENVIRONMENTAL HEALTH OFFICER HOLTER MONITOR Patient Name: Noé Marcelina Davila [...] 114 beats per minute Feliberto Ramey MD, [facility] Feliberto Ramey MD CV CARDIAC SERVICES [place] OCEDURES Final Result from Last 3 Months Insurance MEDICARE MEDICARE MEDICARE MEDICARE [facility] Advance Directives For more information, please contact: [phone] Documents on File Type Date Recorded Patient Casino Cage Manager Expl anation ADVANCE DIRECTIVE 09/16/2021 9:00 AM Power of Felt Finishing Supervisor-Medical ADVANCE DIRECTIVE 06/23/2021 4:03 PM Annabel r of Felt Finishing Supervisor-Medical ADVANCE DIRECTIVE 03/05/2019 10:13 AM POWER OF CHILD CARE ASSOCIATE TEACHER-MEDICAL ADVANCE DIRECTIVE 03/04/2019 2:22 PM POWER OF CHILD CARE ASSOCIATE TEACHER-MEDICAL Care Teams Seam Rubber Relationship Specialty Start Date End Date Miller Mcmanus MD [address] [address] PCP - General Family Medicine 10/20/22
--- OUTSIDE RECORDS SUMMARY | 2024-12-18 18:27 | XMS_ITS | Clinical Summary ---
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 Assessment & Plan (05/06/2020 11:31 PM CARD MAKER): Unsure exact cause. Depression vs nutrition vs dehydration vs possible parkinsons?? Consult ACO He is recently less than 2 years ago. No family or friend support. Probable poor nutrition. Difficulty getting him to take meds as intended. Frequent falls 05/06/2020 Assessment & Plan (11/03/2020 12:12 PM CDT): Pt refuses cane or walker for ambulation. Assessment & Plan (05/06/2020 11:40 PM CARD MAKER): Refuses neuro or PT consult. I think he falls more from flexing his neck versus position changes, stumbling, or orthostasis. During the office visit that took at least 40 minutes, I spent over 50% of the time either counseling, educating, discussing plan of treatment, or answering questions today. Tremor, unspecified 05/06/2020 Assessment & Plan (05/06/2020 11:33 PM CARD MAKER): Refuses consult with neuro or anything that might cost him money. Trial Requip (ropinirole) 0.25mg tid. Consult ACO Illiteracy 05/06/2020 Weight loss 01/26/2020 Assessment & Plan (07/28/2020 7:23 PM CARD MAKER): Stable with Mirtazapine. Will increase the Mirtazapine to 30mg today. Assessment & Plan (05/06/2020 11:37 PM CARD MAKER): Possible improvement with Mirtazapine (if he is [...] 8:55 AM CDT): Will refill Cardura to [employer] program. Hopefully this will allow patient to easy to access his medications. Will also order home health for social work and nursing services. With his blood pressure a elevated he likely needs a nurse to check this and assist him with medications. He is not cognitively aware enough to do this himself. Assessment & Plan (07/28/2020 7:26 PM CARD MAKER): Will increase the doxazosin from 1 mg [...] readings. Assessment & Plan (07/28/2019 11:16 PM CARD MAKER): New diagnosis. Start doxazosin (Cardura) for combined benefit of HTN and BPH. Call back with update in 2-3 weeks and blood pressure readings if possible. Chronic rhinitis 07/28/2019 Assessment & Plan (07/28/2019 11:20 PM CARD MAKER): Start Flonase (fluticasone). Demonstrated use. Hearing difficulty of both ears 12/18/2018 Assessment & Plan (07/28/2020 7:45 PM CARD MAKER): Tried to clean out ears today. Assessment & Plan (01/26/2020 11:12 AM CDT): Did not go to audiology due to cost. Assessment & Plan (12/18/2018 9:24 PM CDT): Audiology consult. 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 LDL is controlled well. Prediabetes 06/18/2017 Assessment & Plan (07/28/2020 7:21 PM CARD MAKER): Will check new labs and make adjustments if needed. Assessment & Plan (01/26/2020 11:07 AM CDT): Will recheck fasting glucose today. Assessment & Plan (07/28/2019 11:16 PM CARD MAKER): Get new labs Assessment & Plan (12/18/2018 9:23 PM CDT): Lower carb diet recommended. Assessment & Plan (06/18/2017 1:26 PM CARD MAKER): Please cut down on sweets. Chronic idiopathic constipation 12/13/2016 Assessment & Plan (07/28/2020 7:21 PM CARD MAKER): Chronic & stable on meds. Continue current [...] Lipitor. Assessment & Plan (07/28/2020 7:43 PM CARD MAKER): Chronic & stable on meds. Continue current treatment. Assessment & Plan (01/26/2020 11:06 AM CDT): Stop rosuvastatin and start atorvastatin 20mg due to cost. Check labs today. Assessment & Plan (07/28/2019 11:20 PM CARD MAKER): Get updated labs soon. Assessment & Plan (12/18/2018 9:23 PM CDT): Chronic & stable on meds. Continue current treatment. Assessment & Plan (06/18/2018 2:20 PM CARD MAKER): Chronic & stable on meds. Continue current treatment. Assessment & Plan (03/29/2018 1:48 PM CDT): LDL was 69 on 12/10/2017. Continue Mevacor treatment Assessment & Plan (12/17/2017 9:41 PM CDT): Chronic & stable on meds. Continue current treatment. Assessment & Plan (06/18/2017 1:26 PM CARD MAKER): Chronic & stable on meds. Continue current [...] pharmacy Assessment & Plan (07/28/2020 7:38 PM CARD MAKER): Increase the Mirtazapine to 30mg daily and stop the Amitriptyline 10 mg daily, especially since he has constipation. Assessment & Plan (05/06/2020 11:37 PM CARD MAKER): Patient symptomatic and not sure if he [...] treatment. Assessment & Plan (06/18/2018 2:20 PM CARD MAKER): Chronic & stable on meds. Continue current treatment. Assessment & Plan (06/18/2017 1:26 PM CARD MAKER): Chronic & stable on meds. Continue current [...] 02/15/2015 Assessment & Plan (07/28/2020 7:42 PM CARD MAKER): Stable with out prescription medication. He feels [...] treatment. Assessment & Plan (06/18/2018 2:20 PM CARD MAKER): Stable without regular use of inhalers. Assessment [...] medication(s) Assessment & Plan (07/28/2020 7:41 PM CARD MAKER): Increase the doxazosin from 1 mg to 2 mg. Assessment & Plan (01/26/2020 11:09 AM CDT): Patient only took the doxazosin a couple times. Stop completely due to not taking it regularly and some lightheadedness when standing. Assessment & Plan (07/28/2019 11:16 PM CARD MAKER): Start doxazosin (Cardura). Patient opted out of getting PSA testing at this time. Resolved Problems Problem Noted Date Diagnosed Date Resolved Date prison (current) use of anticoagulants 11/13/2023 07/15/2024 Late onset Alzheimer's disea se without behavioral disturbance 09/20/2020 09/20/2020 Bilateral impacted cerumen 07/28/2020 0 09/17/2020 Assessment & Plan (07/28/2020 7:22 PM CARD MAKER): Ear irrigation today. Encounter for Medicare annual [...] 12/18/19 Assessment & Plan (06/18/2017 1:20 PM CARD MAKER): These look like a type of squamous [...] draws. Assessment & Plan (06/18/2018 2:20 PM CARD MAKER): Chronic & stable on meds. Continue current [...] INR Assessment & Plan (06/18/2017 1:27 PM CARD MAKER): Chronic & stable on meds. Continue current [...] Type Department Care Team Description 11/30/2024 Telephone [facility] Cardiology [address] [place] [address] [address] [place] [address] Feliberto Ramey MD 11/10/2024 Results Follow-Up [facility] Cardiology [address] [facility] [address] [place] [address] Feliberto Ramey MD Basic metabolic panel 10/31/2024 9:45 AM CDT Ancillary Procedure [facility] Cardiology [address] [place] [address] [address] [place] [address] Permanent atrial fibrillation (HCC) 10/31/2024 9:00 AM CDT Office Visit [facility] Cardiology [address] [place] [address] [address] [place] [address] Feliberto Ramey MD Permanent atrial [...] in a intermediate (including now)? 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 CARD MAKER Gender Identity Not on file Sexual Orientation Not on file Obstetrics History Last Filed Vital Signs Vital Sign Reading Time Taken Comments Blood Pressure 134/62 10/31/2024 8:52 AM CDT Pulse 74 10/31/2024 8:52 AM CDT Temperature 36.9 C (98.4 F) 07/28/2020 8:55 AM CARD MAKER Respiratory Rate 18 11/03/2020 9:16 AM CDT [...] 9:56 AM CDT Permanent atrial fibrillation (HCC) EXTENDED/CORRECTION HOLTER PATCH (>48 HOURS UP TO 7 DAYS) Routine 10/31/2024 9:42 AM CDT Permanent atrial fibrillation (HCC) from Last 3 Months Results * (ABNORMAL) Basic metabolic panel (11/07/2024 9:56 AM CDT) Glucose 108(H) 65 - 99 mg/dL [facility] Comment: Fasting reference interval For someone [...] SEE NOTE: 6 - 22 (calc) [facility] Comment: Not Reported: BUN and Creatinine [...] ORDERABLES F inal Result [facility] [address] [place] [address] * Extended/Penitentiary Holter Patch (>48 hours up to 7 days) (10/31/2024 9:42 AM CDT) Anatomical Region Laterality Modality Electrocardiogra phy Narrative 11/30/2024 2:20 PM CDT [facility] Cardiology [facility], [place] [address] Cardiology Electrophysiology Kimberli Hodges, MD Elmer Lopez, MD Ranjan Sauceda, MD Jet Leiva, MD Brandon Andino, MD Brady Mcgee, MD Arturo Leyva, MD Lawrence Boateng, MD Jose M Barker, MD Spring Bojorquez, DYLAN Casillas, MD Keyona Sierra, DYLAN Ramey, MD Shannan Valverde, RADIOLOGY CT TECHNOLOGIST Edson Young, MD Patrick Alexandra, MD Elmer Marquez, MD Salvador Lynn, MD Kiki David, BOILER HOUSE INSPECTOR Brandon Robles, BARB Yates, BARB Ko, BOILER HOUSE INSPECTOR SIGN LANGUAGE TEACHER HOLTER MONITOR Patient Name: Noé Davila : [...] 114 beats per minute Feliberto Ramey MD, [facility] Feliberto Ramey MD CV CARDIAC SERVICES [place] OCEDURES Final Result from Last 3 Months Insurance MEDICARE MEDICARE MEDICARE MEDICARE [facility] [id number] Advance Directives For more information, please contact: [phone] Documents on File Type Date Recorded Patient Insurance Follow Up Representative Expl anation ADVANCE DIRECTIVE 09/16/2021 9:00 AM Power of Operating Room Technician-Medical ADVANCE DIRECTIVE 06/23/2021 4:03 PM Annabel r of Operating Room Technician-Medical ADVANCE DIRECTIVE 03/05/2019 10:13 AM POWER OF LOUVER MORTISER OPERATOR-MEDICAL ADVANCE DIRECTIVE 03/04/2019 2:22 PM POWER OF LOUVER MORTISER OPERATOR-MEDICAL Care Teams Wound Treatment Rn Relationship Specialty Start Date End Date Miller Mcmanus MD [address] [address] PCP - General Family Medicine 10/20/22
--- OUTSIDE RECORDS SUMMARY | 2024-12-18 18:27 | XMS_ITS | CONTINUITY OF CARE DOCUMENT ---
Author Name lenka og Address Unknown Organization [facility] Address [address] [place] [address] Phone [phone] Care Team Providers Care Manager Sas Name Role Phone Reid ARGUETA, Gianna Unavailable MARY HURTADO MD Unavailable [phone] MARY HURTADO MD Unavailable [phone] PROBLEMS Condition Status Date Provider Notes Shortness of breath (SOB) active Jose M purdy INSURANCE PROVIDERS Payer name Policy type / Coverage type [place] red republican ID [place] MEDIC[place] Medicare [id number] HISTORY OF PROCEDURES Procedure Date Procedure Name Provider Procedure Notes S tatus Mobile Cardiac Telem etry - Tech Gianna Mathews MD completed Mobile Cardiac Telem etry - Prof Gianna Mathews MD completed
[2024-12-18] MEDS: MECLIZINE HCL 25 MG TABLET PO (18:31)
[2024-12-18 18:33] VITALS: BP 182/91; PULSE 76; RESP 18; O2SAT 100
[2024-12-18 18:42] LABS: Basophils Absolute Auto 0.1 K/mm3 (0.0-0.1); Basophils Percent Auto 0.9 % (0.2-1.2); Eosinophils Absolute Auto 0.3 K/mm3 (0-0.3); Hematocrit 42.9 % (42.0-52.0); Hemoglobin 14.1 g/dL (14.0-18.0); Immature Granulocyte Absolute 0.02 K/mm3 (0.00-0.031); Immature Granulocyte Percent A 0.3 % (0-0.5); Lymphocytes Absolute Auto 1.05 K/mm3 (0.9-3.2); Mean Corpuscular HGB Conc 32.9 g/dl (32-36); Mean Corpuscular Hemoglobin 30.6 pg (26-34); Mean Corpuscular Volume 93.1 fl (80-100); Mean Platelet Volume 9.3 fl (7.4-10.4); Monocytes Absolute Auto 0.5 K/mm3 (0.1-0.6); Monocytes Percent Auto 8.2 % (2.6-8.5); Neutrophils Absolute Auto 4.6 K/mm3 (1.3-6.7); Neutrophils Percent Auto 69.6 % (45.5-73.1); Platelet Count Result 182 k/mm3 (150-375); Red Blood Count 4.61 M/mm3 (4.6-6.20); Red Cell Distribution Width 13.5 % (11.5-14.5); White Blood Count 6.6 K/mm3 (4.5-10.0)
[2024-12-18 18:51] LABS: Alanine Aminotransferase 15 U/L (6-50); Alkaline Phosphatase 117 U/L (38-126); Anion Gap 8 mmol/L (4-12); Aspartate Amino Transferase 25 U/L (17-59); Bilirubin,Total 0.7 mg/dL (0.2-1.3); Blood Urea Nitrogen 24 mg/dL (9-20); Calcium 9.3 mg/dL (8.4-10.2); Carbon Dioxide 24 mmol/L (22-30); Chloride 101 mmol/L (98-107); Estimated CRCL calculation 36 ml/min; Estimated Glomerular Filt Rate > 60; Glucose 96 mg/dL (65-110); Potassium 4.2 mmol/L (3.4-5.0); Sodium 133 mmol/L (137-145); Total Protein 6.9 g/dL (6.3-8.2)
[2024-12-18 18:52] LABS: Partial Thromboplastin Time 28.1 Seconds (22.3-36.8)
[2024-12-18 18:53] LABS: Prothrombin Time 13.5 Seconds (11.1-14.7)
[2024-12-18 23:01] VITALS: BP 164/67; PULSE 74; RESP 20; O2SAT 97
--- NOTE | 2024-12-18 23:01 | PC.NURSE ---
Glued Wood Tester Vicki informed this RN that patient will not be receiving bed this evening. This RN obtained bed from [facility] and pt moved from ER stretcher to hospital bed. Pt call light within reach. Updated pt and family of plan. Family to be contated with any concerns regarding pt care.
[2024-12-19] VITALS (14 sets, daily range): BP systolic 117–188; BP diastolic 63–96; PULSE 60–85; RESP 14–21; TEMP 36.4–36.6; O2SAT 96–100; BMI 20.1
--- NOTE | 2024-12-19 | ECHO_ITS ---
Patient Info Name: Noé Davila Age: 89 years : 1935 Gender: Male Ht: 72 in Wt: 138 lbs BSA: 1.77 m2 HR: 70 bpm BP: 175 / 79 mmHg Technical Quality: Poor Exam Date: 12/19/2024 1:58 PM Patient Status: I Admit Date: 12/18/2024 Exam Type: CA echo dop bubble study w con Complete two-dimentional, color flow and Doppler transthoracic echocardiogram is performed with agitated saline and with contrast to opacify the left ventricle and to improve the delineation of the left ventricle endocardial borders. Staff Referring Physician: Ayden Fitzpatrick Silk Examiner: Nicky Mckee Attending Provider: Keyona Shelley DO Contrast/Agitated Saline Contrast/Ag. Saline: Definity Amount: 2.00 ml Administered By: Nicky Mckee Existing IV Access: Yes IV Access Condition: patent with no signs of infiltration Contrast/Ag. Saline: Agitated Saline Amount: 10.00 ml Summary 1. Technically suboptimal study due to poor sonographic images. 2. Definity contrast administered improved wall motion interpretation. 3. Left ventricular chamber dimension is normal. 4. Left ventricular systolic function is normal, estimated at 60-65. 5. There is mild concentric increased left ventricular wall thickness. 6. The left ventricular diastolic function is grade I diastolic dysfunction. 7. E/e' 5 is not elevated. 8. Agitated saline injection with and without valsalva maneuver which was suboptimal as bubbles not seen in right ventricle. 9. There is mild aortic valve sclerosis. 10. There is trace aortic valve regurgitation. 11. There is mild mitral valve regurgitation. 12. There is mild tricuspid valve regurgitation. 13. No pulmonary hypertension, estimated pulmonary arterial systolic pressure is 30 mmHg. 14. There is trace pulmonic regurgitation. Left Ventricle Technically suboptimal study due to poor sonographic images. Left ventricular chamber dimension is normal. Left ventricular systolic function is normal, estimated at 60-65. There is mild concentric increased left ventricular wall thickness. The left ventricular diastolic function is grade I diastolic dysfunction. E/e' 5 is not elevated. Definity contrast administered improved wall motion interpretation. Right Ventricle Right ventricular chamber dimension is normal. Right ventricular systolic function is normal and with normal TAPSE 1.8 cm. Left Atria Left atrial chamber dimension is normal. Right Atria Right atrial chamber dimension is normal. Atrial Septum Interatrial septum not well visualized by 2D and agitated saline imaging. Agitated saline injection with and without valsalva maneuver which was suboptimal as bubbles not seen in right ventricle. Aortic Valve The aortic valve is trileaflet. There is mild aortic valve sclerosis. There is no aortic valve stenosis. There is trace aortic valve regurgitation. Pulmonic Valve There is trace pulmonic regurgitation. Mitral Valve There is no mitral valve stenosis. There is mild mitral valve regurgitation. Tricuspid Valve There is mild tricuspid valve regurgitation. No pulmonary hypertension, estimated pulmonary arterial systolic pressure is 30 mmHg. Pericardium/Pleural There is no pericardial effusion. Inferior Vena Cava Normal inferior vena cava with >50% collapse upon inspiration consistent with normal right atrial pressure, 5 mmHg. Aorta The aortic root size at the sinus of Valsalva is normal. Left Ventricular Outflow Tract Name Value Normal LVOT 2D LVOT Diameter 2.0 cm LVOT Doppler LVOT Peak Velocity 75 cm/s LVOT Peak Gradient 2 mmHg LVOT Mean Gradient 1 mmHg LVOT VTI 16 cm LVOT Stroke Volume 51 ml LVOT CO 3.5 l/min LVOT CI 2.0 l/min/m2 Pulmonic Valve Name Value Normal RVOT Doppler RVOT Peak Velocity 84 cm/s RVOT Peak Gradient 3 mmHg PV Doppler PV Peak Velocity 96 cm/s PV Peak Gradient 4 mmHg Mitral Valve Name Value Normal MV Diastolic Function MV E Peak Velocity 49 cm/s MV A Peak Velocity 57 cm/s MV E/A 0.9 MV Decel Time (PW) 223 ms MV Annular TDI MV E/e' (Septal) 4.9 MV E/e' (Lateral) 6.3 MV E/e' (Average) 5.6 Tricuspid Valve Name Value Normal TV Regurgitation Doppler TR Peak Velocity 250 cm/s TR Peak Gradient 25 mmHg Estimated PAP/RSVP RA Pressure 5 mmHg <=5 PA Systolic Pressure 30 mmHg <36 RV Systolic Pressure 30 mmHg <36 Aortic Valve Name Value Normal AV Doppler AV Peak Velocity 120 cm/s AV Peak Gradient 6 mmHg AV Area (Cont Eq Jason) 2.0 cm2 AV DI (Jason) 0.63 AV Regurgitation 2D LVOT Area 3.2 cm2 Ventricles Name Value Normal LV Dimensions 2D/MM IVS Diastolic Thickness (2D) 1.0 cm 0.6-1.0 LVID Diastole (2D) 3.6 cm 4.2-5.8 LVIW Diastolic Thickness (2D) 1.2 cm 0.6-1.0 LVID Systole (2D) 2.4 cm 2.5-4.0 LVOT Diameter 2.0 cm LV Mass (2D Cubed) 128.23 g 88.00-224.00 LV Mass Index (2D Cubed) 72 g/m2 49-115 Relative Wall Thickness (2D) 0.69 <=0.42 LV Fractional Shortening/Ejection Fraction 2D/MM LV Fractional Shortening (2D) 34 % 25-43 LV EF (2D Teichholz) 64 % LV Diastolic Volume (4C MOD) 43 ml LV EF (4C MOD) 57 % LV Diastolic Volume (2C MOD) 40 ml LV EF (2C MOD) 60 % LV Diastolic Volume (BP MOD) 41 ml 62-150 LV Diastolic Volume Index (BP MOD) 23 ml/m2 34-74 LV Systolic Volume (BP MOD) 18 ml 21-61 LV Systolic Volume Index (BP MOD) 10 ml/m2 11-31 LV EF (BP MOD) 57 % 52-72 LV Diastolic Length (4C) 6.3 cm LV Systolic Length (4C) 5.6 cm LV Stroke Volume (4C MOD) 25 ml Atria Name Value Normal LA Dimensions LA Volume (4C A-L) 25 ml LA Volume (BP A-L) 24 ml RA Dimensions RA Systolic Major [place] Length (4C) 4.1 cm 2.1-2.7 RA Area (4C) 9.8 cm2 <=18.0 Report Signatures
--- NOTE | 2024-12-19 09:43 | P.HP_ITS ---
H&P: HPI History of Present Illness Date/Time: 12/19/24 09:43 Chief Complaint: Dizziness Narrative: Patient is a 89-year-old male with a past medical history of peripheral vascular disease, chronic obstructive pulmonary disease, BPH, depression, AFib, hypertension, anemia, anxiety, constipation, hyperlipidemia, dementia visited the ED due to dizziness. Pertinent ED labs: WBC 6.6, hemoglobin 14.1, hematocrit 42.9, platelets 182, sodium 133, potassium 4.2, creatinine 1.10, glucose 96 UA shows leukocyte esterase 1+, WBC 21-50 CT head shows:No acute intracranial hemorrhage or suspicious mass effect. Decreased attenuation within the right posterior lobe of the cerebellum, an interval change from 04/22/2024, possibly representing interval cerebral infarction. Patient initially visited the ED due to intermittent dizziness that was happening for years and unsteady gait. As per ED documentation patient gets dizzy and sometimes falls when he was up walking. Patient denies any chest pain or shortness of breath or any neurological deficit is evident. Patient is seen his supply chain technician and ENT without any definitive diagnosis. The CT scan shows cerebral infarction which would the possibly causing balance issue. Unfortunately we do not have neurological service. Will order MRI and further management as per MRI results. Patient will undergo CVA workup. Patient underwent carotid Doppler study 10/28/2024 vaginal not show any significant finding other than less than 50% stenosis in the right internal carotid and left internal carotid artery. Will order echocardiogram with bubble study. Patient has a history of AFib but do not see any anticoagulation in his home medication. Pending MRI brain, echocardiogram with bubble study, head and neck CTA. During the evaluation his daughter was present. Patient has difficulty hearing. Patient is by himself. Patient use walker when going outside due to age. Denies any previous history of a stent placement or CVA. Patient's follows up with Mely Park NP as PCP. Patient has a previous history of smoking quit 15-20 years ago 1 pack per day. No significant medical history other than the skin cancer. Patient has a history of AFib but do not take anticoagulation due to cost and unable to afford it. Patient also follows up with ENT due to hearing. Pending MRI. Patient be started on Plavix after the MRI results. Unfortunately we do not have neurology service today. Review of Systems Review of Systems: All systems reviewed & are unremarkable except as noted in HPI and below PMFSH Past Medical History Medical History Lumbar radiculopathy Lumbar spondylosis Peripheral vascular disease Chronic obstructive pulmonary disease Benign prostatic hyperplasia Depression Seasonal allergies Anemia Hypertension Atrial fibrillation Anxiety Constipation Dementia Hyperlipidemia Surgical History Surgical History Status post peripheral artery angioplasty with insertion of stent History of cholecystectomy Family History Family History Other Unknown family medical history Social History Social History Social History: Healthcare power of consumer attorney: Roseanne Noguera. Code status: Smoking packs per day: 1 Smoking cigarettes per day: 20.0 Smoking status: Former smoker Tobacco type: cigarettes Smoking end date: 07/02/08 Alcohol intake: never Drinks per week: 2 Substance use: never Substance use type: does not use Do You Feel Safe in your Home?: Yes Lack of Transportation: No Lack of Food: Never True Current Housing: I Have Housing Concerned About Future Housing: No Difficulty Paying Gas/Electric Bills: No Difficulty Paying for Meds: No Currently Unemployed: No Education: Grade School Difficulty w/ Childcare or Family Care: No Spiritual care concerns: No Meds Home Medications and Allergies Home Medications ?Medication ?Instructions ?Recorded ?Confirmed ?Type aspirin 81 mg tablet,delayed 81 mg PO DAILY 12/12/21 12/19/24 History release atorvastatin 20 mg tablet 20 mg PO DAILY #30 tabs 03/12/24 12/19/24 Rx polyethylene glycol 3350 17 gram 17 g PO QAM #7 ea 03/15/24 12/19/24 Rx oral powder packet (Miralax) doxazosin 1 mg tablet 1 mg PO DAILY #90 tabs 06/12/24 12/19/24 Rx fluticasone propionate 50 1 spray intranasal BID #16 grams 07/13/24 12/19/24 Rx mcg/actuation nasal spray,suspension (Flonase Allergy Relief) albuterol sulfate 90 mcg/actuation 1 - 2 inh inhalation Q4-6H PRN 08/01/24 12/19/24 Rx aerosol inhaler shortness of breath or wheezing #8.5 grams buspirone 5 mg tablet 5 mg PO BID PRN anxiety #60 tabs 08/27/24 12/19/24 Rx losartan 50 mg tablet 75 mg (1.5 x 50 mg) PO DAILY 90 08/27/24 12/19/24 Rx days #135 tabs mupirocin 2 % topical ointment 1 applic topical BID PRN wound 10/13/24 12/19/24 Rx (Centany) care #22 grams ipratropium bromide 21 mcg (0.03 2 spray intranasal .qd-tid #30 mL 10/20/24 12/19/24 Rx %) nasal spray Allergies Allergy/AdvReac Type Severity Reaction Status Date / Time No Known Allergies Allergy Verified 12/18/24 18:36 Vital Signs Vital Signs - 24 hr 12/18/24 17:24 12/18/24 18:33 12/18/24 18:33 Temperature 97.3 F L Pulse Rate 76 76 76 Respiratory Rate 16 18 Blood Pressure 162/89 H 182/91 H Pulse Oximetry 97 100 Oxygen Delivery Room Air Room Air 12/18/24 23:01 12/19/24 00:01 12/19/24 00:38 Temperature Pulse Rate 74 68 66 Respiratory Rate 20 19 15 Blood Pressure 164/67 H 117/93 H 117/63 Pulse Oximetry 97 100 97 Oxygen Delivery 12/19/24 03:34 12/19/24 04:02 12/19/24 05:01 Temperature Pulse Rate 67 60 67 Respiratory Rate 14 17 21 H Blood Pressure 144/96 H 162/69 H 154/72 H Pulse Oximetry 97 98 100 Oxygen Delivery 12/19/24 06:01 12/19/24 07:01 12/19/24 08:01 Temperature Pulse Rate 62 69 61 Respiratory Rate 19 18 16 Blood Pressure 181/78 H 188/78 H 184/78 H Pulse Oximetry 98 98 96 Oxygen Delivery 12/19/24 09:01 Temperature 97.7 F Pulse Rate 85 Respiratory Rate 20 Blood Pressure 175/79 H Pulse Oximetry 96 Oxygen Delivery Exam Const: General: healthy appearing, no acute distress and well nourished Nu tritional Appearance: well nourished Orientation/consciousness: patient oriented x3 Limitations: no limitations HENMT: Ears: TM's normal bilaterally Eyes: Pupils: Equal, round and reactive pupils present EOM: EOMs intact bilaterally Neck: Neck: normal visual inspection, no lymphadenopathy and no meningeal signs Resp: Effort & Inspection: normal respiratory effort Auscultation: clear to auscultation bilaterally Cardio: Rate: regular rate Rhythm: regular rhythm GI: Auscultation: normal bowel sounds Skin: General skin exam: normal color Rashes: no rashes Wounds: no wounds Neuro: General: patient oriented x3, moves all extremities, no meningeal signs, no focal motor deficits and CN's II-XI intact bilaterally Cranial nerves: Yes Equal, round and reactive pupils present and Yes Nystagmus not present Speech: normal speech Other: when walking pt said he felt a little dizzy and did have to episodes where he briefly lost his balance leaning to the right but quickly recovered. Extrem: General: normal to inspection and no clubbing, cyanosis or edema Psych: Mental Status: mental status grossly normal Affect: normal affect H&P: Results Labs Labs: Short CBC 12/18/24 Range/Units 18:37 WBC 6.6 (4.5-10.0) K/mm3 Hgb 14.1 (14.0-18.0) g/dL Hct 42.9 (42.0-52.0) % Plt Count 182 (150-375) k/mm3 BMP 12/18/24 18:37 Sodium 133 L Potassium 4.2 Chloride 101 Carbon Dioxide 24 BUN 24 H Creatinine 1.10 Glucose 96 Calcium 9.3 Liver Function 12/18/24 Range/Units 18:37 Total Bilirubin 0.7 (0.2-1.3) mg/dL AST 25 (17-59) U/L ALT 15 (6-50) U/L Alkaline Phosphatase 117 (38-126) U/L Albumin 4.0 (3.5-5.1) g/dL Assessment and Plan Assessment and plan (1) CVA (cerebral vascular accident): Code(s): I63.9 - Cerebral infarction, unspecified Status: Acute Assessment and Plan: -MRI Brain: Pending -CTA neck: Pending -CT Head : No acute intracranial hemorrhage or suspicious mass effect. Decreased attenuation within the right posterior lobe of the cerebellum, an interval change from 04/22/2024, possibly representing interval cerebral infarction -NIHS 0 -echo with bubble study pending -bedside swallow pending -aspirin and statin -LDL goal less than 70 -if neurology recommends will add clopidogrel -permissive hypertension less than 220/120 if no thrombolytics. -neurology consulted awaiting recommendation -speech and swallow evaluation -PT/OT eval - not candidate for thrombolytics due to resolution/past the time limit (2) Atrial fibrillation: Code(s): I48.91 - Unspecified atrial fibrillation Status: Acute Assessment and Plan: Not on anticoagulation due to cost Will discuss with care coordination Not on rate control medication (3) Hyperglycemia: Code(s): R73.9 - Hyperglycemia, unspecified Status: Acute Assessment and Plan: Order HbA1c Order low-dose sliding scale Hypoglycemic protocol (4) Hearing loss, bilateral: Code(s): H91.93 - Unspecified hearing loss, bilateral Status: Acute Assessment and Plan: Chronic Follows up with ENT as an outpatient Hospitalist [facility] Advance Care Plan I have confirmed that the patient's Advanced Care Plan is present, code status is documented, or surrogate decision maker is listed in patient medical record.: Yes Medication Reconciliation I have utilized all available resources to obtain, update and review the pa tients current medications (includes all prescriptions, OTC, herbals, cannabis, and nutritional supplements).: Yes
--- NOTE | 2024-12-19 12:27 | ADMGEN ---
This patient, Noé Davila, was admitted to Medical Room 241-01. Patient/family oriented to hospital policies and general routines including ID bracelet, bed and alarms, visiting hours, pain management, procedures, bathroom and other care routines, personal items, smoking policy, room service/diet, and visiting hours. Information on how to activate the Rapid Response Team has been discussed. Patient/Family are encouraged to report perceived risks to care and to ask questions if they do not understand what they are told or what they should do.
[2024-12-19] MEDS: LOSARTAN POTASSIUM 25 MG TABLET 75 MG PO (12:32)
[2024-12-19] MEDS: polyethylene glycoL 3350 17 GM POWD.PACK PO (12:33)
[2024-12-19] MEDS: ATORVASTATIN 20 MG TABLET PO (12:33)
[2024-12-19] MEDS: ASPIRIN 81 MG ENTERIC TABLET PO (12:33)
[2024-12-19] MEDS: DOXAZOSIN MESYLATE 1 MG TABLET PO (13:12)
[2024-12-19] MEDS: PERFLUTREN LIPID MICROSPHERES 1.5 ML VIAL DILUTED TO 10 ML TOTAL VOLUME IV PUSH (14:00)
[2024-12-19 14:35] LABS: Hemoglobin A1C 6.1 % (<5.7)
--- NOTE | 2024-12-19 16:03 | IVDEFINITY ---
Prior to administration of IV Definity the patient was educated on the risks and benefits of the imaging enhancing agent including potential adverse side effects. The patient verbalized understanding. Allergies were verified. No exclusion criteria were identified and at least one of the following inclusion criteria were met: 1) physician request, 2) patient technically difficult to image (per the [place] [employer] guidelines of two or more segments not discernable within the apical view), or 3) questionable left ventricular function. ?
[2024-12-19 18:14] LABS: Glucose Point of Care 139 mg/dl (65-105)
[2024-12-19 20:46] LABS: Glucose Point of Care 104 mg/dl (65-105)
[2024-12-20] VITALS (8 sets, daily range): BP systolic 119–170; BP diastolic 60–76; PULSE 62–109; RESP 16–20; TEMP 36.3–36.7; O2SAT 94–95
[2024-12-20] MEDS: FLUTICASONE PROPIONATE 0.05% NA SPR 16 GM BTL (*BKC) 1 SPRAY NASAL ×3 (02:05→21:11)
[2024-12-20 06:00] LABS: Hemoglobin 15.3 g/dL (14.0-18.0); Mean Corpuscular Hemoglobin 31.3 pg (26-34); Mean Platelet Volume 9.9 fl (7.4-10.4); Platelet Count Result 189 k/mm3 (150-375); Red Blood Count 4.89 M/mm3 (4.6-6.20); Red Cell Distribution Width 13.2 % (11.5-14.5); White Blood Count 7.1 K/mm3 (4.5-10.0)
[2024-12-20 06:17] LABS: Alanine Aminotransferase 14 U/L (6-50); Albumin Level 3.9 g/dL (3.5-5.1); Alkaline Phosphatase 110 U/L (38-126); Anion Gap 8 mmol/L (4-12); Aspartate Amino Transferase 25 U/L (17-59); Bilirubin,Total 1.1 mg/dL (0.2-1.3); Blood Urea Nitrogen 19 mg/dL (9-20); Calcium 9.3 mg/dL (8.4-10.2); Carbon Dioxide 24 mmol/L (22-30); Chloride 100 mmol/L (98-107); Estimated CRCL calculation 43 ml/min; Estimated Glomerular Filt Rate > 60; Glucose 108 mg/dL (65-110); Potassium 4.2 mmol/L (3.4-5.0); Sodium 132 mmol/L (137-145); Total Protein 6.9 g/dL (6.3-8.2)
--- NOTE | 2024-12-20 07:19 | P.PNIM_ITS ---
Progress Note: A&P Assessment and Plan (1) CVA (cerebral vascular accident): Code(s): I63.9 - Cerebral infarction, unspecified Status: Acute Assessment and Plan: -MRI Brain: Pending -CTA head and neck :1. Atherosclerotic plaque with 0% stenosis of the right and left carotid bulbs relative to normal distal artery lumen diameter (NASCET criteria). 2. Age-related changes the brain including moderate diffuse volume loss and moderate scattered white matter hypoattenuation. No acute intracranial process. 3. 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 4. Unremarkable cerebral CT angiogram with no hemodynamically significant stenosis, thrombosis or aneurysm. 5. Moderate emphysema. -CT Head : No acute intracranial hemorrhage or suspicious mass effect. Decreased attenuation within the right posterior lobe of the cerebellum, an interval change from 04/22/2024, possibly representing interval cerebral infarction -NIHS 0 -echo with bubble study pending -bedside swallow pending -aspirin and statin -LDL goal less than 70 -if neurology recommends will add clopidogrel -permissive hypertension less than 220/120 if no thrombolytics. -neurology consulted awaiting recommendation -speech and swallow evaluation -PT/OT eval - not candidate for thrombolytics due to resolution/past the time limit (2) Atrial fibrillation: Code(s): I48.91 - Unspecified atrial fibrillation Status: Acute Assessment and Plan: Not on anticoagulation due to cost Will discuss with care coordination Not on rate control medication (3) Hyperglycemia: Code(s): R73.9 - Hyperglycemia, unspecified Status: Acute Assessment and Plan: Order HbA1c Order low-dose sliding scale Hypoglycemic protocol (4) Hearing loss, bilateral: Code(s): H91.93 - Unspecified hearing loss, bilateral Status: Acute Assessment and Plan: Chronic Follows up with ENT as an outpatient Subjective Date/time seen: 12/20/24 07:19 Interval history: Pending MRI. Increased losartan from 75 mg to 100 mg p.o. q.d. and started amlodipine 5 mg p.o. q.d.. Patient can have permissive hypertension due to CVA. Patient is not on any anticoagulation for atrial fibrillation due to cost. Will discuss with care coordination. As per his daughter today he had difficulty recognize his nephew although he is very close to him. Patient is also oriented only to himself. Review of Systems Review of Systems: All systems reviewed & are unremarkable except as noted in HPI and below Exam Const: General: healthy appearing, no acute distress and well nourished Nutritional Appearance: well nourished Orientation/consciousness: patient oriented x3 Limitations: no limitations HENMT: Ears: TM's normal bilaterally Eyes: Pupils: Equal, round and reactive pupils present EOM: EOMs intact bilaterally Neck: Neck: normal visual inspection, no lymphadenopathy and no meningeal signs Resp: Effort & Inspection: normal respiratory effort Auscultation: clear to auscultation bilaterally Cardio: Rate: regular rate Rhythm: regular rhythm GI: Auscultation: normal bowel sounds Skin: General skin exam: normal color Rashes: no rashes Wounds: no wounds Neuro: General: patient oriented x3, moves all extremities, no meningeal signs, no focal motor deficits and CN's II-XI intact bilaterally Cranial nerves: Yes Equal, round and reactive pupils present and Yes Nystagmus not present Speech: normal speech Other: when walking pt said he felt a little dizzy and did have to episodes where he briefly lost his balance leaning to the right but quickly recovered. Extrem: General: normal to inspection and no clubbing, cyanosis or edema Psych: Mental Status: mental status grossly normal Affect: normal affect Objective Data Vital Signs Vital Signs: Vital Signs - 24 hr 12/19/24 08:01 12/19/24 09:01 12/19/24 14:00 Temperature 97.7 F 97.5 F L Pulse Rate 61 85 67 Respiratory Rate 16 20 18 Blood Pressure 184/78 H 175/79 H 176/69 H Pulse Oximetry 96 96 99 Oxygen Delivery 12/19/24 14:10 12/19/24 14:45 12/19/24 15:20 Temperature Pulse Rate 64 Respiratory Rate Blood Pressure Pulse Oximetry Oxygen Delivery Room Air Room Air 12/19/24 16:00 12/19/24 20:00 12/19/24 20:00 Temperature Pulse Rate 72 79 79 Respiratory Rate 18 Blood Pressure Pulse Oximetry 96 Oxygen Delivery Room Air 12/19/24 20:53 12/20/24 04:00 12/20/24 06:00 Temperature 98 F 97.5 F L Pulse Rate 79 62 67 Respiratory Rate 18 20 Blood Pressure 163/88 H 170/76 H Pulse Oximetry 96 95 Oxygen Delivery Intake/Output Intake/Output: Intake & Output 12/17/24 12/18/24 12/19/24 12/20/24 23:59 23:59 23:59 23:59 Intake Total 1510 150 Balance 1510 150 Meds/Results Medications: Active Medications Generic Name Dose Route Start Last Admin Trade Name Freq PRN Reason Stop Dose Admin Acetaminophen 650 mg 12/18/24 20:19 Acetaminophen 325 Mg Tablet PO Q4H PRN Mild Pain (1-3) or Fever Aspirin 81 mg 12/19/24 11:00 12/19/24 12:33 Aspirin 81 Mg Enteric Tablet PO 81 mg DAILY CONNIE Administration Atorvastatin Calcium 20 mg 12/19/24 11:00 12/19/24 12:33 Atorvastatin 20 Mg Tablet PO 20 mg DAILY CONNIE Administration Buspirone HCl 5 mg 12/19/24 11:00 Buspirone Hcl 5 Mg Tablet PO Q12H PRN anxiety Dextrose 12.5 gm 12/19/24 14:11 Dextrose 50% 25 Gm/50 Ml Syringe IV PUSH PRN PRN Hypoglycemia Protocol Doxazosin Mesylate 1 mg 12/19/24 11:00 12/19/24 13:12 Doxazosin Mesylate 1 Mg Tablet PO 1 mg DAILY CONNIE Administration Fluticasone Propionate 1 spray 12/19/24 21:00 12/20/24 02:05 Fluticasone Propionate 0.05% Na Spr 16 Gm Btl (*Bkc) NASAL 1 spray Q12HR CONNIE Administration Glucagon 1 mg 12/19/24 14:11 Glucagon For Inj 1 Mg Vial IM PRN PRN Hypoglycemia Protocol Glucose 15 gm 12/19/24 14:11 Glucose Oral Gel 15 Gm Of Glucse In 37.5 Gm Tube PO PRN PRN Hypoglycemia Protocol Dextrose 1,000 mls @ 100 mls/hr 12/19/24 14:11 Dextrose 5% 1,000 Ml IVPB PRN PRN Hypoglycemia Protocol Insulin Aspart 2 - 5 units 12/19/24 17:00 12/19/24 18:08 Insulin Aspart (*Bkc) 100 Units/Ml SUB-Q Not Given TIDWM CONNIE Protocol Insulin Aspart 1 - 2 units 12/19/24 21:00 12/20/24 02:04 Insulin Aspart (*Bkc) 100 Units/Ml SUB-Q Not Given HS CONNIE Protocol Ipratropium [place] 2 spray 12/19/24 11:00 Ipratropium Nasal [place] 0.03% 15 Ml Bottle NASAL .qd-tid CONNIE Losartan Potassium 75 mg 12/19/24 11:30 12/19/24 12:32 Losartan Potassium 25 Mg Tablet PO 75 mg DAILY CONNIE Administration Miscellaneous Information 0 each 12/19/24 00:01 Clarify Ipatropium Nasal [place] Dosing Schedule. What Is Qd-Tid? XX 01/18/25 00:00 CLARIFY CONNIE Mupirocin 1 applic 12/19/24 10:56 Mupirocin 2% Oint 22 Gm Tube TOPICAL BID PRN wound care Perflutren Lipid Microsphere 0 ml 12/19/24 09:52 Perflutren Lipid Microspheres 1.5 Ml Vial Diluted To 10 Ml Total Volume IV PUSH 12/22/24 09:52 ONCE PRN adequate visualization Protocol Polyethylene Glycol 17 gm 12/19/24 11:00 12/19/24 12:33 Polyethylene Glycol 3350 17 Gm Powd.Pack PO 17 gm QAM CONNIE Administration Radiology Results: ITS Impressions Head CT 12/18/24 19:01 Impression: No acute intracranial hemorrhage or suspicious mass effect. Decreased attenuation within the right posterior lobe of the cerebellum, an interval change from 04/22/2024, possibly representing interval cerebral infarction. Head/Neck CTA 12/19/24 15:35 IMPRESSION: 1. Atherosclerotic plaque with 0% stenosis of the right and left carotid bulbs relative to normal distal artery lumen diameter (NASCET criteria). 2. Age-related changes the brain including moderate diffuse volume loss and moderate scattered white matter hypoattenuation. No acute intracranial process. 3. 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 4. Unremarkable cerebral CT angiogram with no hemodynamically significant stenosis, thrombosis or aneurysm. 5. Moderate emphysema. Labs Labs: Laboratory Results - last 24 hr 12/18/24 12/19/24 12/19/24 18:37 18:07 20:23 WBC RBC Hgb Hct MCV MCH MCHC RDW Plt Count MPV Sodium Potassium Chloride Carbon Dioxide Anion Gap BUN Creatinine Estim Creat Clear Calc Estimated GFR Glucose POC Capillary Glucose 139 H 104 Hemoglobin A1c 6.1 H Calcium Total Bilirubin AST ALT Alkaline Phosphatase Total Protein Albumin 12/20/24 05:17 WBC 7.1 RBC 4.89 Hgb 15.3 Hct 45.0 MCV 92.0 MCH 31.3 MCHC 34.0 RDW 13.2 Plt Count 189 MPV 9.9 Sodium 132 L Potassium 4.2 Chloride 100 Carbon Dioxide 24 Anion Gap 8 BUN 19 Creatinine 0.98 Estim Creat Clear Calc 43 Estimated GFR > 60 Glucose 108 POC Capillary Glucose Hemoglobin A1c Calcium 9.3 Total Bilirubin 1.1 AST 25 ALT 14 Alkaline Phosphatase 110 Total Protein 6.9 Albumin 3.9 Hospitalist MIPS Advance Care Plan I have confirmed that the patient's Advanced Care Plan is present, code status is documented, or surrogate decision maker is listed in patient medical record.: Yes Medication Reconciliation I have utilized all available resources to obtain, update and review the patients current medications (includes all prescriptions, OTC, herbals, cannabis, and nutritional supplements).: Yes
[2024-12-20] MEDS: DOXAZOSIN MESYLATE 1 MG TABLET PO (08:15)
[2024-12-20] MEDS: LOSARTAN POTASSIUM 100 MG TABLET PO (08:15)
[2024-12-20] MEDS: ATORVASTATIN 20 MG TABLET PO (08:15)
[2024-12-20] MEDS: ASPIRIN 81 MG ENTERIC TABLET PO (08:16)
[2024-12-20] MEDS: amLODIPine BESYLATE 5 MG TABLET PO (08:16)
[2024-12-20] MEDS: polyethylene glycoL 3350 17 GM POWD.PACK PO (08:16)
[2024-12-20 08:21] LABS: Glucose Point of Care 128 mg/dl (65-105)
--- NOTE | 2024-12-20 11:04 | PCSTNOTE ---
Please refer to the Bedside Swallow Evaluation in the EMR. Please note, silent aspiration cannot be ruled out at bedside.
[2024-12-20 12:02] LABS: Glucose Point of Care 117 mg/dl (65-105)
[2024-12-20 16:53] LABS: Glucose Point of Care 155 mg/dl (65-105)
[2024-12-20 20:36] LABS: Glucose Point of Care 112 mg/dl (65-105)
[2024-12-21] VITALS (10 sets, daily range): BP systolic 109–149; BP diastolic 52–68; PULSE 61–82; RESP 16–18; TEMP 36.6–36.9; O2SAT 96–97
[2024-12-21 05:31] LABS: Hematocrit 43.1 % (42.0-52.0); Hemoglobin 14.7 g/dL (14.0-18.0); Mean Corpuscular HGB Conc 34.1 g/dl (32-36); Mean Corpuscular Hemoglobin 31.5 pg (26-34); Mean Corpuscular Volume 92.5 fl (80-100); Mean Platelet Volume 9.5 fl (7.4-10.4); Platelet Count Result 180 k/mm3 (150-375); Red Blood Count 4.66 M/mm3 (4.6-6.20); Red Cell Distribution Width 13.3 % (11.5-14.5); White Blood Count 8.1 K/mm3 (4.5-10.0)
[2024-12-21 05:56] LABS: Alanine Aminotransferase 15 U/L (6-50); Albumin Level 3.8 g/dL (3.5-5.1); Alkaline Phosphatase 92 U/L (38-126); Anion Gap 8 mmol/L (4-12); Aspartate Amino Transferase 21 U/L (17-59); Blood Urea Nitrogen 23 mg/dL (9-20); Carbon Dioxide 22 mmol/L (22-30); Chloride 99 mmol/L (98-107); Estimated CRCL calculation 41 ml/min; Estimated Glomerular Filt Rate > 60; Glucose 121 mg/dL (65-110); Potassium 3.9 mmol/L (3.4-5.0); Sodium 129 mmol/L (137-145); Total Protein 6.5 g/dL (6.3-8.2)
[2024-12-21 08:30] LABS: Glucose Point of Care 131 mg/dl (65-105)
[2024-12-21] MEDS: FLUTICASONE PROPIONATE 0.05% NA SPR 16 GM BTL (*BKC) 1 SPRAY NASAL ×2 (09:07→21:23)
[2024-12-21] MEDS: LOSARTAN POTASSIUM 100 MG TABLET PO (09:07)
[2024-12-21] MEDS: ASPIRIN 81 MG ENTERIC TABLET PO (09:07)
[2024-12-21] MEDS: DOXAZOSIN MESYLATE 1 MG TABLET PO (09:07)
[2024-12-21] MEDS: amLODIPine BESYLATE 5 MG TABLET PO (09:07)
[2024-12-21] MEDS: ATORVASTATIN 20 MG TABLET PO (09:07)
[2024-12-21] MEDS: polyethylene glycoL 3350 17 GM POWD.PACK PO (09:07)
[2024-12-21 09:44] LABS: Ammonia < 9 umol/L (9-30)
[2024-12-21 10:54] LABS: Folic Acid 13.5 ng/mL (2.76->20)
[2024-12-21 11:30] LABS: Free T4 Free Thyroxine Reflex 1.48 ng/dL (0.78-2.19)
[2024-12-21 11:51] LABS: Add Urine Microscopic? YES; Appearance Urine Clear (Clear); Bacteria Urine 4+ /hpf; Bilirubin Urine Negative (Negative); Blood Urine Negative (Negative); Color Urine Yellow (Yellow); Glucose Urine UA Negative (Negative); Ketones Urine Negative (Negative); Leukocyte Esterase Ur 2+ LEU/UL (Negative); Need Manual Microscopic Reviewed; Nitrate Urine Positive (Negative); Non Pathogenic Casts 0-2; Protein Urine Negative (Negative); RBC Urine 0-2 /hpf (0-2); Specific Grav Ur 1.019 (1.001-1.035); Squamous Epithelial Cell Urine None Seen /hpf (Few); pH Urine 6.5 (5.0-9.0)
[2024-12-21 12:26] LABS: Total Triiodothyronine (T3) 1.16 NG/ML (0.82-1.58)
--- NOTE | 2024-12-21 12:27 | PC.NURSE ---
PLEASE NOTIFY POA daughter of all medication changes and new orders if possible.
--- NOTE | 2024-12-21 12:59 | P.PNIM_ITS ---
Progress Note: A&P Assessment and Plan (1) CVA (cerebral vascular accident): Code(s): I63.9 - Cerebral infarction, unspecified Status: Acute Assessment and Plan: -MRI Brain: No acute infarct, intracranial hemorrhage, or mass lesion.Severe chronic microvascular ischemic disease and severe generalized atrophy. -CTA head and neck :1. Atherosclerotic plaque with 0% stenosis of the right and left carotid bulbs relative to normal distal artery lumen diameter (NASCET criteria). 2. Age-related changes the brain including moderate diffuse volume loss and moderate scattered white matter hypoattenuation. No acute intracranial process. 3. 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 4. Unremarkable cerebral CT angiogram with no hemodynamically significant stenosis, thrombosis or aneurysm. 5. Moderate emphysema. -CT Head : No acute intracranial hemorrhage or suspicious mass effect. Decreased attenuation within the right posterior lobe of the cerebellum, an interval change from 04/22/2024, possibly representing interval cerebral infarction -patient needs to follow-up with the vascular surgeon for severe stenosis at origin of the right vertebral artery as an outpatient -NIHS 0 -echo with bubble study pending -bedside swallow pending -aspirin and statin -LDL goal less than 70 -if neurology recommends will add clopidogrel -permissive hypertension less than 220/120 if no thrombolytics. -neurology consulted awaiting recommendation -speech and swallow evaluation -PT/OT eval - not candidate for thrombolytics due to resolution/past the time limit (2) Atrial fibrillation: Code(s): I48.91 - Unspecified atrial fibrillation Status: Acute Assessment and Plan: Not on anticoagulation due to cost Will discuss with care coordination Not on rate control medication Will discuss with the family and will start Eliquis tomorrow (3) Hyperglycemia: Code(s): R73.9 - Hyperglycemia, unspecified Status: Acute Assessment and Plan: HbA1c 6.1 Order low-dose sliding scale Hypoglycemic protocol (4) Hearing loss, bilateral: Code(s): H91.93 - Unspecified hearing loss, bilateral Status: Acute Assessment and Plan: Chronic Follows up with ENT as an outpatient Subjective Date/time seen: 12/21/24 12:59 Interval history: Patient today was oriented better compared to yesterday. UA is positive for leukocyte esterase and bacteria 4+. Started on Rocephin and ordered urine culture. Discussed with Dr. Albert who agrees the patient needs to be in on anticoagulation for AFib. Will discuss with care coordination tomorrow and family and will start Eliquis for AFib. Patient needs to follow-up closely with the vascular surgeon for vertebral artery stenosis as an outpatient. Review of Systems Review of Systems: All systems reviewed & are unremarkable except as noted in HPI and below Exam Const: General: healthy appearing, no acute distress and well nourished Nutritional Appearance: well nourished Orientation/consciousness: patient oriented x3 Limitations: no limitations HENMT: Ears: TM's normal bilaterally Eyes: Pupils: Equal, round and reactive pupils present EOM: EOMs intact bilaterally Neck: Neck: normal visual inspection, no lymphadenopathy and no meningeal signs Resp: Effort & Inspection: normal respiratory effort Auscultation: clear to auscultation bilaterally Cardio: Rate: regular rate Rhythm: regular rhythm GI: Auscultation: normal bowel sounds Skin: General skin exam: normal color Rashes: no rashes Wounds: no wounds Neuro: General: patient oriented x3, moves all extremities, no meningeal signs, no focal motor deficits and CN's II-XI intact bilaterally Cranial nerves: Yes Equal, round and reactive pupils present and Yes Nystagmus not present Speech: normal speech Other: when walking pt said he felt a little dizzy and did have to episodes where he briefly lost his balance leaning to the right but quickly recovered. Extrem: General: normal to inspection and no clubbing, cyanosis or edema Psych: Mental Status: mental status grossly normal Affect: normal affect Objective Data Vital Signs Vital Signs: Vital Signs - 24 hr 12/20/24 14:00 12/20/24 16:00 12/20/24 20:00 Temperature 97.3 F L Pulse Rate 76 77 82 Respiratory Rate 20 Blood Pressure 119/66 Pulse Oximetry 95 Oxygen Delivery 12/20/24 21:21 12/21/24 00:00 12/21/24 04:00 Temperature 98.1 F Pulse Rate 72 68 66 Respiratory Rate 16 Blood Pressure 125/60 Pulse Oximetry 94 Oxygen Delivery 12/21/24 06:00 12/21/24 08:00 12/21/24 08:00 Temperature 98.5 F Pulse Rate 81 61 Respiratory Rate 18 Blood Pressure 149/62 H Pulse Oximetry 96 Oxygen Delivery Room Air Intake/Output Intake/Output: Intake & Output 12/18/24 12/19/24 12/20/24 12/21/24 23:59 23:59 23:59 23:59 Intake Total 1510 2210 1420 Balance 1510 2210 1420 Meds/Results Medications: Active Medications Generic Name Dose Route Start Last Admin Trade Name Freq PRN Reason Stop Dose Admin Acetaminophen 650 mg 12/18/24 20:19 Acetaminophen 325 Mg Tablet PO Q4H PRN Mild Pain (1-3) or Fever Amlodipine Besylate 5 mg 12/20/24 09:00 12/21/24 09:07 Amlodipine Besylate 5 Mg Tablet PO 5 mg DAILY CONNIE Administration Aspirin 81 mg 12/19/24 11:00 12/21/24 09:07 Aspirin 81 Mg Enteric Tablet PO 81 mg DAILY CONNIE Administration Atorvastatin Calcium 20 mg 12/19/24 11:00 12/21/24 09:07 Atorvastatin 20 Mg Tablet PO 20 mg DAILY CONNIE Administration Buspirone HCl 5 mg 12/19/24 11:00 Buspirone Hcl 5 Mg Tablet PO Q12H PRN anxiety Dextrose 12.5 gm 12/19/24 14:11 Dextrose 50% 25 Gm/50 Ml Syringe IV PUSH PRN PRN Hypoglycemia Protocol Doxazosin Mesylate 1 mg 12/19/24 11:00 12/21/24 09:07 Doxazosin Mesylate 1 Mg Tablet PO 1 mg DAILY CONNIE Administration Fluticasone Propionate 1 spray 12/19/24 21:00 12/21/24 09:07 Fluticasone Propionate 0.05% Na Spr 16 Gm Btl (*Bkc) NASAL 1 spray Q12HR CONNIE Administration Glucagon 1 mg 12/19/24 14:11 Glucagon For Inj 1 Mg Vial IM PRN PRN Hypoglycemia Protocol Glucose 15 gm 12/19/24 14:11 Glucose Oral Gel 15 Gm Of Glucse In 37.5 Gm Tube PO PRN PRN Hypoglycemia Protocol Dextrose 1,000 mls @ 100 mls/hr 12/19/24 14:11 Dextrose 5% 1,000 Ml IVPB PRN PRN Hypoglycemia Protocol Ipratropium [place] 2 spray 12/19/24 11:00 Ipratropium Nasal [place] 0.03% 15 Ml Bottle NASAL QAM PRN NASAL DISCHARGE Losartan Potassium 100 mg 12/20/24 09:00 12/21/24 09:07 Losartan Potassium 100 Mg Tablet PO 100 mg DAILY CONNIE Administration Mupirocin 1 applic 12/19/24 10:56 Mupirocin 2% Oint 22 Gm Tube TOPICAL BID PRN wound care Perflutren Lipid Microsphere 0 ml 12/19/24 09:52 Perflutren Lipid Microspheres 1.5 Ml Vial Diluted To 10 Ml Total Volume IV PUSH 12/22/24 09:52 ONCE PRN adequate visualization Protocol Polyethylene Glycol 17 gm 12/19/24 11:00 12/21/24 09:07 Polyethylene Glycol 3350 17 Gm Powd.Pack PO 17 gm QAM CONNIE Administration Radiology Results: ITS Impressions Head CT 12/18/24 19:01 Impression: No acute intracranial hemorrhage or suspicious mass effect. Decreased attenuation within the right posterior lobe of the cerebellum, an interval change from 04/22/2024, possibly representing interval cerebral infarction. Head/Neck CTA 12/19/24 15:35 IMPRESSION: 1. Atherosclerotic plaque with 0% stenosis of the right and left carotid bulbs relative to normal distal artery lumen diameter (NASCET criteria). 2. Age-related changes the brain including moderate diffuse volume loss and moderate scattered white matter hypoattenuation. No acute intracranial process. 3. 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 4. Unremarkable cerebral CT angiogram with no hemodynamically significant stenosis, thrombosis or aneurysm. 5. Moderate emphysema. Brain MRI 12/21/24 06:30 IMPRESSION: No acute infarct, intracranial hemorrhage, or mass lesion. Severe chronic microvascular ischemic disease and severe generalized atrophy. Labs Labs: Laboratory Results - last 24 hr 12/20/24 12/20/24 12/21/24 16:50 20:23 05:11 WBC 8.1 RBC 4.66 Hgb 14.7 Hct 43.1 MCV 92.5 MCH 31.5 MCHC 34.1 RDW 13.3 Plt Count 180 MPV 9.5 Sodium 129 L Potassium 3.9 Chloride 99 Carbon Dioxide 22 Anion Gap 8 BUN 23 H Creatinine 1.03 Estim Creat Clear Calc 41 Estimated GFR > 60 Glucose 121 H POC Capillary Glucose 155 H 112 H Calcium 9.0 Total Bilirubin 1.0 AST 21 ALT 15 Alkaline Phosphatase 92 Ammonia Total Protein 6.5 Albumin 3.8 Vitamin B12 Folate TSH (Reflex) Free T4 Total T3 Urine Color Urine Appearance Urine pH Ur Specific [place] Urine Protein Urine Glucose (UA) Urine Ketones Ur Blood (Man) Urine Nitrate Urine Bilirubin Urine Urobilinogen Add Ur Microanalysis Leukocyte Esterase Rfl Urine RBC Urine WBC Ur Squamous Epith Cells Urine Bacteria Urine Casts 12/21/24 12/21/24 12/21/24 08:22 09:22 11:27 WBC RBC Hgb Hct MCV MCH MCHC RDW Plt Count MPV Sodium Potassium Chloride Carbon Dioxide Anion Gap BUN Creatinine Estim Creat Clear Calc Estimated GFR Glucose POC Capillary Glucose 131 H Calcium Total Bilirubin AST ALT Alkaline Phosphatase Ammonia < 9 L Total Protein Albumin Vitamin B12 864.0 Folate 13.5 TSH (Reflex) 0.260 L Free T4 1.48 Total T3 1.16 Urine Color Yellow Urine Appearance Clear Urine pH 6.5 Ur Specific [place] 1.019 Urine Protein Negative Urine Glucose (UA) Negative Urine Ketones Negative Ur Blood (Man) Negative Urine Nitrate Positive H Urine Bilirubin Negative Urine Urobilinogen 2.0 H Add Ur Microanalysis Reviewed Leukocyte Esterase Rfl 2+ H Urine RBC 0-2 Urine WBC 11-20 H Ur Squamous Epith Cells None seen Urine Bacteria 4+ H Urine Casts 0-2 Hospitalist MIPS Advance Care Plan I have confirmed that the patient's Advanced Care Plan is present, code status is documented, or surrogate decision maker is listed in patient medical record.: Yes Medication Reconciliation I have utilized all available resources to obtain, update and review the patients current medications (includes all prescriptions, OTC, herbals, cannabis, and nutritional supplements).: Yes
--- NOTE | 2024-12-21 14:01 | WPDNEURCNPN ---
Consult date: 12/21/24 HPI: Noé Davila is a 89 year old male admitted to the hospital for the complaints of chronic dizziness worse on the day of visit to the ER resulting in the inability to walk and also with statement that he never feels that he is going to pass out. He is taking aspirin 81mg daily, he is not allergic to any medications has the diagnosis of lumbar spondylosis with radiculopathy, atrial fibrillation, hypertension, hyperlipidemia and anxiety with dementia. History of being former smoker , smoking 2 packs per day of 1 and never alcohol intake or. On initial exam in the emergency he was found to have no focal deficit his vital signs were normal with blood pressure 162/89, CBC was normal, BMP was normal, and mast scan was normal, he has had echocardiogram which is documented no significant regurgitation or agitated saline crossing over from right to left. His MRI of the brain documented only severe chronic microvascular ischemic disease with severe generalized atrophy and CTA documented severe stenosis at the origin of the right vertebral artery. Patient has ,also ongoing diagnosis of atrial fibrillation dose is not receiving any anticoagulation therapy . 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 Code status: Smoking packs per day: 1 Smoking cigarettes per day: 20.0 Smoking status: Former smoker Tobacco type: cigarettes Smoking end date: 07/02/08 Alcohol intake: never Drinks per week: 2 Substance use: never Substance use type: does not use Do You Feel Safe in your Home?: Yes Lack of Transportation: No Lack of Food: Never True Current Housing: I Have Housing Concerned About Future Housing: No Difficulty Paying Gas/Electric Bills: No Difficulty Paying for Meds: No Currently Unemployed: No Education: Grade School Difficulty w/ Childcare or Family Care: No Spiritual care concerns: No Meds Home Medications and Allergies Home Medications ?Medication ?Instructions ?Recorded ?Confirmed ?Type aspirin 81 mg tablet,delayed 81 mg PO DAILY 12/12/21 12/19/24 History release atorvastatin 20 mg tablet 20 mg PO DAILY #30 tabs 03/12/24 12/19/24 Rx polyethylene glycol 3350 17 gram 17 g PO QAM #7 ea 03/15/24 12/19/24 Rx oral powder packet (Miralax) doxazosin 1 mg tablet 1 mg PO DAILY #90 tabs 06/12/24 12/19/24 Rx fluticasone propionate 50 1 spray intranasal BID #16 grams 07/13/24 12/19/24 Rx mcg/actuation nasal spray,suspension (Flonase Allergy Relief) albuterol sulfate 90 mcg/actuation 1 - 2 inh inhalation Q4-6H PRN 08/01/24 12/19/24 Rx aerosol inhaler shortness of breath or wheezing #8.5 grams buspirone 5 mg tablet 5 mg PO BID PRN anxiety #60 tabs 08/27/24 12/19/24 Rx losartan 50 mg tablet 75 mg (1.5 x 50 mg) PO DAILY 90 08/27/24 12/19/24 Rx days #135 tabs mupirocin 2 % topical ointment 1 applic topical BID PRN wound 10/13/24 12/19/24 Rx ([facility]any) care #22 grams ipratropium bromide 21 mcg (0.03 2 spray intranasal .qd-tid #30 mL 10/20/24 12/19/24 Rx %) nasal spray Allergies Allergy/AdvReac Type Severity Reaction Status Date / Time No Known Allergies Allergy Verified 12/18/24 18:36 Vital Signs Vital Signs - 24 hr 12/20/24 16:00 12/20/24 20:00 12/20/24 21:21 Temperature 36.7 C Pulse Rate 77 82 72 Respiratory Rate 16 Blood Pressure 125/60 Pulse Oximetry 94 Oxygen Delivery 12/21/24 00:00 12/21/24 04:00 12/21/24 06:00 Temperature 36.9 C Pulse Rate 68 66 81 Respiratory Rate 18 Blood Pressure 149/62 H Pulse Oximetry 96 Oxygen Delivery 12/21/24 08:00 12/21/24 08:00 12/21/24 12:00 Temperature Pulse Rate 61 82 Respiratory Rate Blood Pressure Pulse Oximetry Oxygen Delivery Room Air Results Labs 12/21/24 05:11 12/21/24 05:11 Labs: Short CBC 12/21/24 Range/Units 05:11 WBC 8.1 (4.5-10.0) K/mm3 Hgb 14.7 (14.0-18.0) g/dL Hct 43.1 (42.0-52.0) % Plt Count 180 (150-375) k/mm3 BMP 12/21/24 05:11 Sodium 129 L Potassium 3.9 Chloride 99 Carbon Dioxide 22 BUN 23 H Creatinine 1.03 Glucose 121 H Calcium 9.0 Liver Function 12/21/24 Range/Units 05:11 Total Bilirubin 1.0 (0.2-1.3) mg/dL AST 21 (17-59) U/L ALT 15 (6-50) U/L Alkaline Phosphatase 92 (38-126) U/L Albumin 3.8 (3.5-5.1) g/dL Urine 12/21/24 Range/Units 11:27 Urine Color Yellow (Yellow) Urine Appearance Clear (Clear) Urine pH 6.5 (5.0-9.0) Ur Specific [place] 1.019 (1.001-1.035) Urine Protein Negative (Negative) mg/dL Urine Glucose (UA) Negative (Negative) mg/dL
[2024-12-21] MEDS: guaiFENesin 12 HR 600 MG TABCR 1200 MG PO (22:23)
[2024-12-22] VITALS (15 sets, daily range): BP systolic 111–156; BP diastolic 46–71; PULSE 61–92; RESP 18–28; TEMP 36.4–36.7; O2SAT 92–100
[2024-12-22 05:17] LABS: Hematocrit 42.1 % (42.0-52.0); Hemoglobin 14.2 g/dL (14.0-18.0); Mean Corpuscular HGB Conc 33.7 g/dl (32-36); Mean Corpuscular Hemoglobin 31.1 pg (26-34); Mean Corpuscular Volume 92.3 fl (80-100); Mean Platelet Volume 9.7 fl (7.4-10.4); Platelet Count Result 177 k/mm3 (150-375); Red Blood Count 4.56 M/mm3 (4.6-6.20); Red Cell Distribution Width 13.3 % (11.5-14.5); White Blood Count 7.1 K/mm3 (4.5-10.0)
[2024-12-22 05:32] LABS: Alanine Aminotransferase 13 U/L (6-50); Albumin Level 3.6 g/dL (3.5-5.1); Alkaline Phosphatase 95 U/L (38-126); Anion Gap 8 mmol/L (4-12); Aspartate Amino Transferase 22 U/L (17-59); Blood Urea Nitrogen 22 mg/dL (9-20); Calcium 8.8 mg/dL (8.4-10.2); Carbon Dioxide 23 mmol/L (22-30); Chloride 97 mmol/L (98-107); Estimated CRCL calculation 42 ml/min; Estimated Glomerular Filt Rate > 60; Glucose 112 mg/dL (65-110); Potassium 3.9 mmol/L (3.4-5.0); Sodium 128 mmol/L (137-145); Total Protein 6.3 g/dL (6.3-8.2)
--- NOTE | 2024-12-22 08:28 | WPDNEUROPN ---
Progress Note: A&P Time Spent With Patient Time with patient: less than 15 minutes Subjective Date/time seen: 12/22/24 08:28 Interval history: 89 years old right-handed male has been admitted to the hospital for the complaints of chronic dizziness resulting in the inability to walk and also with statement that he never feels that he is going to pass out he has been taking aspirin 81mg daily additionally has ongoing diagnosis of lumbar spondylosis with radiculopathy atrial fibrillation, hypertension, lipidemia anxiety with dementia, evaluation has revealed normal routine lab studies except the sodium of 128 brain MRI has documented only severe chronic microvascular ischemic disease with severe generalized atrophy but head and neck CTA also documented 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 I explained these findings to his daughter, his dizziness is more of like orthostatic he never gets dizzy while sitting or laying, he can be continued on atorvastatin which can be increased to40mg daily, and aspirin 81mg daily, 1 can consider the possibility of vertebral artery stenting but considering the other problem it will be extremely unlikely that they will pursue further but anyhow I have explained to his daughter if the wound VAC and get the unit reactor operator opinion. In the meantime we can add Plavix 75mg daily. Objective Data Vital Signs Vital Signs: Vital Signs - 24 hr 12/21/24 12:00 12/21/24 14:00 12/21/24 16:00 Temperature 36.6 C Pulse Rate 82 68 72 Respiratory Rate 18 Blood Pressure 122/68 Pulse Oximetry 96 Oxygen Delivery 12/21/24 19:55 12/21/24 19:55 12/21/24 19:58 Temperature 36.8 C Pulse Rate 72 72 75 Respiratory Rate 16 Blood Pressure 109/52 L 109/52 L 115/55 L Pulse Oximetry 97 Oxygen Delivery 12/21/24 20:00 12/21/24 20:00 12/21/24 20:00 Temperature Pulse Rate 80 71 Respiratory Rate Blood Pressure 113/61 Pulse Oximetry Oxygen Delivery Room Air 12/22/24 00:00 12/22/24 04:00 12/22/24 06:00 Temperature 36.7 C Pulse Rate 68 76 61 Respiratory Rate 18 Blood Pressure 136/64 Pulse Oximetry 95 Oxygen Delivery 12/22/24 08:19 Temperature Pulse Rate Respiratory Rate Blood Pressure Pulse Oximetry 96 Oxygen Delivery Room Air Intake/Output Intake/Output: Intake & Output 12/19/24 12/20/24 12/21/24 12/22/24 23:59 23:59 23:59 23:59 Intake Total 1510 2210 2500 300 Output Total 500 Balance 1510 2210 2500 -200 Meds/Results Medications: Active Medications Generic Name Dose Route Start Last Admin Trade Name Freq PRN Reason Stop Dose Admin Acetaminophen 650 mg 12/18/24 20:19 Acetaminophen 325 Mg Tablet PO Q4H PRN Mild Pain (1-3) or Fever Amlodipine Besylate 5 mg 12/20/24 09:00 12/21/24 09:07 Amlodipine Besylate 5 Mg Tablet PO 5 mg DAILY CONNIE Administration Aspirin 81 mg 12/19/24 11:00 12/21/24 09:07 Aspirin 81 Mg Enteric Tablet PO 81 mg DAILY CONNIE Administration Atorvastatin Calcium 20 mg 12/19/24 11:00 12/21/24 09:07 Atorvastatin 20 Mg Tablet PO 20 mg DAILY CONNIE Administration Buspirone HCl 5 mg 12/19/24 11:00 Buspirone Hcl 5 Mg Tablet PO Q12H PRN anxiety Dextrose 12.5 gm 12/19/24 14:11 Dextrose 50% 25 Gm/50 Ml Syringe IV PUSH PRN PRN Hypoglycemia Protocol Doxazosin Mesylate 1 mg 12/19/24 11:00 12/21/24 09:07 Doxazosin Mesylate 1 Mg Tablet PO 1 mg DAILY CONNIE Administration Fluticasone Propionate 1 spray 12/19/24 21:00 12/21/24 21:23 Fluticasone Propionate 0.05% Na Spr 16 Gm Btl (*Bkc) NASAL 1 spray Q12HR CONNIE Administration Glucagon 1 mg 12/19/24 14:11 Glucagon For Inj 1 Mg Vial IM PRN PRN Hypoglycemia Protocol Glucose 15 gm 12/19/24 14:11 Glucose Oral Gel 15 Gm Of Glucse In 37.5 Gm Tube PO PRN PRN Hypoglycemia Protocol Guaifenesin 1,200 mg 12/21/24 21:00 12/21/24 22:23 Guaifenesin 12 Hr 600 Mg Tabcr PO 1,200 mg Q12HR CONNIE Administration Dextrose 1,000 mls @ 100 mls/hr 12/19/24 14:11 Dextrose 5% 1,000 Ml IVPB PRN PRN Hypoglycemia Protocol Ceftriaxone Sodium 1 gm in 50 mls @ 100 mls/hr 12/21/24 14:00 12/21/24 15:44 Rocephin 1 Gm/Ns 50 Ml IVPB Infused Q24H CONNIE Infusion Ipratropium [place] 2 spray 12/19/24 11:00 Ipratropium Nasal [place] 0.03% 15 Ml Bottle NASAL QAM PRN NASAL DISCHARGE Losartan Potassium 100 mg 12/20/24 09:00 12/21/24 09:07 Losartan Potassium 100 Mg Tablet PO 100 mg DAILY CONNIE Administration Mupirocin 1 applic 12/19/24 10:56 Mupirocin 2% Oint 22 Gm Tube TOPICAL BID PRN wound care Perflutren Lipid Microsphere 0 ml 12/19/24 09:52 Perflutren Lipid Microspheres 1.5 Ml Vial Diluted To 10 Ml Total Volume IV PUSH 12/22/24 09:52 ONCE PRN adequate visualization Protocol Polyethylene Glycol 17 gm 12/19/24 11:00 12/21/24 09:07 Polyethylene Glycol 3350 17 Gm Powd.Pack PO 17 gm QAM CONNIE Administration Radiology Results: ITS Impressions Head CT 12/18/24 19:01 Impression: No acute intracranial hemorrhage or suspicious mass effect. Decreased attenuation within the right posterior lobe of the cerebellum, an interval change from 04/22/2024, possibly representing interval cerebral infarction. Head/Neck CTA 12/19/24 15:35 IMPRESSION: 1. Atherosclerotic plaque with 0% stenosis of the right and left carotid bulbs relative to normal distal artery lumen diameter (NASCET criteria). 2. Age-related changes the brain including moderate diffuse volume loss and moderate scattered white matter hypoattenuation. No acute intracranial process. 3. 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 4. Unremarkable cerebral CT angiogram with no hemodynamically significant stenosis, thrombosis or aneurysm. 5. Moderate emphysema. Brain MRI 12/21/24 06:30 IMPRESSION: No acute infarct, intracranial hemorrhage, or mass lesion. Severe chronic microvascular ischemic disease and severe generalized atrophy. Labs Labs: Laboratory Results - last 24 hr 12/21/24 12/21/24 12/21/24 08:22 09:22 11:27 WBC RBC Hgb Hct MCV MCH MCHC RDW Plt Count MPV Sodium Potassium Chloride Carbon Dioxide Anion Gap BUN Creatinine Estim Creat Clear Calc Estimated GFR Glucose POC Capillary Glucose 131 H Calcium Total Bilirubin AST ALT Alkaline Phosphatase Ammonia < 9 L Total Protein Albumin Vitamin B12 864.0 Folate 13.5 TSH (Reflex) 0.260 L Free T4 1.48 Total T3 1.16 Urine Color Yellow Urine Appearance Clear Urine pH 6.5 Ur Specific [place] 1.019 Urine Protein Negative Urine Glucose (UA) Negative Urine Ketones Negative Ur Blood (Man) Negative Urine Nitrate Positive H Urine Bilirubin Negative Urine Urobilinogen 2.0 H Add Ur Microanalysis Reviewed Leukocyte Esterase Rfl 2+ H Urine RBC 0-2 Urine WBC 11-20 H Ur Squamous Epith Cells None seen Urine Bacteria 4+ H Urine Casts 0-2 12/22/24 04:27 WBC 7.1 RBC 4.56 L Hgb 14.2 Hct 42.1 MCV 92.3 MCH 31.1 MCHC 33.7 RDW 13.3 Plt Count 177 MPV 9.7 Sodium 128 L Potassium 3.9 Chloride 97 L Carbon Dioxide 23 Anion Gap 8 BUN 22 H Creatinine 1.01 Estim Creat Clear Calc 42 Estimated GFR > 60 Glucose 112 H POC Capillary Glucose Calcium 8.8 Total Bilirubin 1.0 AST 22 ALT 13 Alkaline Phosphatase 95 Ammonia Total Protein 6.3 Albumin 3.6 Vitamin B12 Folate TSH (Reflex) Free T4 Total T3 Urine Color Urine Appearance Urine pH Ur Specific [place] Urine Protein Urine Glucose (UA) Urine Ketones Ur Blood (Man) Urine Nitrate Urine Bilirubin Urine Urobilinogen Add Ur Microanalysis Leukocyte Esterase Rfl Urine RBC Urine WBC Ur Squamous Epith Cells Urine Bacteria Urine Casts
[2024-12-22] MEDS: LOSARTAN POTASSIUM 100 MG TABLET PO (09:04)
[2024-12-22] MEDS: ATORVASTATIN 20 MG TABLET PO (09:04)
[2024-12-22] MEDS: amLODIPine BESYLATE 5 MG TABLET PO (09:05)
[2024-12-22] MEDS: DOXAZOSIN MESYLATE 1 MG TABLET PO (09:05)
[2024-12-22] MEDS: polyethylene glycoL 3350 17 GM POWD.PACK PO (09:05)
[2024-12-22] MEDS: ASPIRIN 81 MG ENTERIC TABLET PO (09:05)
[2024-12-22] MEDS: guaiFENesin 12 HR 600 MG TABCR 1200 MG PO ×2 (09:05→20:57)
[2024-12-22] MEDS: FLUTICASONE PROPIONATE 0.05% NA SPR 16 GM BTL (*BKC) 1 SPRAY NASAL ×2 (09:05→20:58)
--- NOTE | 2024-12-22 09:38 | PCPTNOTE ---
8:35 attempted to see pt, daughter wanted to discuss therapy outside of hospital as I was talking to daughter Speech began their treatment. Will come back.
--- NOTE | 2024-12-22 12:04 | P.PNIM_ITS ---
Progress Note: A&P Assessment and Plan (1) CVA (cerebral vascular accident): Code(s): I63.9 - Cerebral infarction, unspecified Status: Acute Assessment and Plan: -MRI Brain: No acute infarct, intracranial hemorrhage, or mass lesion.Severe chronic microvascular ischemic disease and severe generalized atrophy. -CTA head and neck :1. Atherosclerotic plaque with 0% stenosis of the right and left carotid bulbs relative to normal distal artery lumen diameter (NASCET criteria). 2. Age-related changes the brain including moderate diffuse volume loss and moderate scattered white matter hypoattenuation. No acute intracranial process. 3. 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 4. Unremarkable cerebral CT angiogram with no hemodynamically significant stenosis, thrombosis or aneurysm. 5. Moderate emphysema. -CT Head : No acute intracranial hemorrhage or suspicious mass effect. Decreased attenuation within the right posterior lobe of the cerebellum, an interval change from 04/22/2024, possibly representing interval cerebral infarction -patient needs to follow-up with the vascular surgeon for severe stenosis at origin of the right vertebral artery as an outpatient -NIHS 0 -echo with bubble study pending -bedside swallow pending -aspirin and statin -LDL goal less than 70 -if neurology recommends will add clopidogrel -permissive hypertension less than 220/120 if no thrombolytics. -neurology consulted awaiting recommendation -speech and swallow evaluation -PT/OT eval - not candidate for thrombolytics due to resolution/past the time limit (2) Atrial fibrillation: Code(s): I48.91 - Unspecified atrial fibrillation Status: Acute Assessment and Plan: Not on anticoagulation due to cost Will discuss with care coordination Not on rate control medication Will discuss with the family and will start Eliquis tomorrow (3) Hyperglycemia: Code(s): R73.9 - Hyperglycemia, unspecified Status: Acute Assessment and Plan: HbA1c 6.1 Order low-dose sliding scale Hypoglycemic protocol (4) Hearing loss, bilateral: Code(s): H91.93 - Unspecified hearing loss, bilateral Status: Acute Assessment and Plan: Chronic Follows up with ENT as an outpatient Subjective Date/time seen: 12/22/24 12:04 Interval history: Discussed with neurology Recommend patient needs to be on anticoagulant. discussed with family and agrees to start anticoagulants. Patient has AFib and was not on anticoagulant due to cost. discussed with the Case Management regarding the cost. Case management will work on free supply for a month. as mentioned previously patient needs to see vascular surgeon as outpatient for vertebral artery stenosis. Patient needs physical therapy upon discharge Review of Systems Review of Systems: All systems reviewed & are unremarkable except as noted in HPI and below Exam Const: General: healthy appearing, no acute distress and well nourished Nutritional Appearance: well nourished Orientation/consciousness: patient oriented x3 Limitations: no limitations HENMT: Ears: TM's normal bilaterally Eyes: Pupils: Equal, round and reactive pupils present EOM: EOMs intact b ilaterally Neck: Neck: normal visual inspection, no lymphadenopathy and no meningeal signs Resp: Effort & Inspection: normal respiratory effort Auscultation: clear to auscultation bilaterally Cardio: Rate: regular rate Rhythm: regular rhythm GI: Auscultation: normal bowel sounds Skin: General skin exam: normal color Rashes: no rashes Wounds: no wounds Neuro: General: patient oriented x3, moves all extremities, no meningeal signs, no focal motor deficits and CN's II-XI intact bilaterally Cranial nerves: Yes Equal, round and reactive pupils present and Yes Nystagmus not present Speech: normal speech Other: when walking pt said he felt a little dizzy and did have to episodes where he briefly lost his balance leaning to the right but quickly recovered. Extrem: General: normal to inspection and no clubbing, cyanosis or edema Psych: Mental Status: mental status grossly normal Affect: normal affect Objective Data Vital Signs Vital Signs: Vital Signs - 24 hr 12/21/24 14:00 12/21/24 16:00 12/21/24 19:55 Temperature 97.8 F Pulse Rate 68 72 72 Respiratory Rate 18 Blood Pressure 122/68 109/52 L Pulse Oximetry 96 Oxygen Delivery 12/21/24 19:55 12/21/24 19:58 12/21/24 20:00 Temperature 98.2 F Pulse Rate 72 75 80 Respiratory Rate 16 Blood Pressure 109/52 L 115/55 L 113/61 Pulse Oximetry 97 Oxygen Delivery 12/21/24 20:00 12/21/24 20:00 12/22/24 00:00 Temperature Pulse Rate 71 68 Respiratory Rate Blood Pressure Pulse Oximetry Oxygen Delivery Room Air 12/22/24 04:00 12/22/24 06:00 12/22/24 08:00 Temperature 98.1 F Pulse Rate 76 61 Respiratory Rate 18 Blood Pressure 136/64 Pulse Oximetry 95 Oxygen Delivery Room Air 12/22/24 08:00 12/22/24 08:19 Temperature Pulse Rate 82 Respiratory Rate Blood Pressure Pulse Oximetry 96 Oxygen Delivery Room Air Intake/Output Intake/Output: Intake & Output 12/19/24 12/20/24 12/21/24 12/22/24 23:59 23:59 23:59 23:59 Intake Total 1510 2210 2500 300 Output Total 500 Balance 1510 2210 2500 -200 Meds/Results Medications: Active Medications Generic Name Dose Route Start Last Admin Trade Name Freq PRN Reason Stop Dose Admin Acetaminophen 650 mg 12/18/24 20:19 Acetaminophen 325 Mg Tablet PO Q4H PRN Mild Pain (1-3) or Fever Amlodipine Besylate 5 mg 12/20/24 09:00 12/22/24 09:05 Amlodipine Besylate 5 Mg Tablet PO 5 mg DAILY CONNIE Administration Aspirin 81 mg 12/19/24 11:00 12/22/24 09:05 Aspirin 81 Mg Enteric Tablet PO 81 mg DAILY CONNIE Administration Atorvastatin Calcium 20 mg 12/19/24 11:00 12/22/24 09:04 Atorvastatin 20 Mg Tablet PO 20 mg DAILY CONNIE Administration Buspirone HCl 5 mg 12/19/24 11:00 Buspirone Hcl 5 Mg Tablet PO Q12H PRN anxiety Dextrose 12.5 gm 12/19/24 14:11 Dextrose 50% 25 Gm/50 Ml Syringe IV PUSH PRN PRN Hypoglycemia Protocol Doxazosin Mesylate 1 mg 12/19/24 11:00 12/22/24 09:05 Doxazosin Mesylate 1 Mg Tablet PO 1 mg DAILY CONNIE Administration Fluticasone Propionate 1 spray 12/19/24 21:00 12/22/24 09:05 Fluticasone Propionate 0.05% Na Spr 16 Gm Btl (*Bkc) NASAL 1 spray Q12HR CONNIE Administration Glucagon 1 mg 12/19/24 14:11 Glucagon For Inj 1 Mg Vial IM PRN PRN Hypoglycemia Protocol Glucose 15 gm 12/19/24 14:11 Glucose Oral Gel 15 Gm Of Glucse In 37.5 Gm Tube PO PRN PRN Hypoglycemia Protocol Guaifenesin 1,200 mg 12/21/24 21:00 12/22/24 09:05 Guaifenesin 12 Hr 600 Mg Tabcr PO 1,200 mg Q12HR CONNIE Administration Dextrose 1,000 mls @ 100 mls/hr 12/19/24 14:11 Dextrose 5% 1,000 Ml IVPB PRN PRN Hypoglycemia Protocol Ceftriaxone Sodium 1 gm in 50 mls @ 100 mls/hr 12/21/24 14:00 12/21/24 15:44 Rocephin 1 Gm/Ns 50 Ml IVPB Infused Q24H CONNIE Infusion Ipratropium [place] 2 spray 12/19/24 11:00 Ipratropium Nasal [place] 0.03% 15 Ml Bottle NASAL QAM PRN NASAL DISCHARGE Losartan Potassium 100 mg 12/20/24 09:00 12/22/24 09:04 Losartan Potassium 100 Mg Tablet PO 100 mg DAILY CONNIE Administration Mupirocin 1 applic 12/19/24 10:56 Mupirocin 2% Oint 22 Gm Tube TOPICAL BID PRN wound care Polyethylene Glycol 17 gm 12/19/24 11:00 12/22/24 09:05 Polyethylene Glycol 3350 17 Gm Powd.Pack PO 17 gm QAM CONNIE Administration Radiology Results: ITS Impressions Head CT 12/18/24 19:01 Impression: No acute intracranial hemorrhage or suspicious mass effect. Decreased attenuation within the right posterior lobe of the cerebellum, an interval change from 04/22/2024, possibly representing interval cerebral infarction. Head/Neck CTA 12/19/24 15:35 IMPRESSION: 1. Atherosclerotic plaque with 0% stenosis of the right and left carotid bulbs relative to normal distal artery lumen diameter (NASCET criteria). 2. Age-related changes the brain including moderate diffuse volume loss and moderate scattered white matter hypoattenuation. No acute intracranial process. 3. 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 4. Unremarkable cerebral CT angiogram with no hemodynamically significant stenosis, thrombosis or aneurysm. 5. Moderate emphysema. Brain MRI 12/21/24 06:30 IMPRESSION: No acute infarct, intracranial hemorrhage, or mass lesion. Severe chronic microvascular ischemic disease and severe generalized atrophy. Labs Labs: Laboratory Results - last 24 hr 12/21/24 12/22/24 09:22 04:27 WBC 7.1 RBC 4.56 L Hgb 14.2 Hct 42.1 MCV 92.3 MCH 31.1 MCHC 33.7 RDW 13.3 Plt Count 177 MPV 9.7 Sodium 128 L Potassium 3.9 Chloride 97 L Carbon Dioxide 23 Anion Gap 8 BUN 22 H Creatinine 1.01 Estim Creat Clear Calc 42 Estimated GFR > 60 Glucose 112 H Calcium 8.8 Total Bilirubin 1.0 AST 22 ALT 13 Alkaline Phosphatase 95 Total Protein 6.3 Albumin 3.6 Total T3 1.16 Hospitalist [facility] Advance Care Plan I have confirmed that the patient's Advanced Care Plan is present, code status is documented, or surrogate decision maker is listed in patient medical record.: Yes Medication Reconciliation I have utilized all available resources to obtain, update and review the patients current medications (includes all prescriptions, OTC, herbals, cannabis, and nutritional supplements).: Yes
[2024-12-23] VITALS (10 sets, daily range): BP systolic 123–176; BP diastolic 49–58; PULSE 64–79; RESP 18–22; TEMP 36.4–36.5; O2SAT 90–99
[2024-12-23 05:34] LABS: Hematocrit 43.8 % (42.0-52.0); Hemoglobin 14.7 g/dL (14.0-18.0); Mean Corpuscular HGB Conc 33.6 g/dl (32-36); Mean Corpuscular Volume 92.4 fl (80-100); Platelet Count Result 198 k/mm3 (150-375); Red Blood Count 4.74 M/mm3 (4.6-6.20); Red Cell Distribution Width 13.1 % (11.5-14.5); White Blood Count 6.2 K/mm3 (4.5-10.0)
[2024-12-23 05:58] LABS: Alanine Aminotransferase 16 U/L (6-50); Alkaline Phosphatase 120 U/L (38-126); Anion Gap 9 mmol/L (4-12); Aspartate Amino Transferase 24 U/L (17-59); Bilirubin,Total 0.8 mg/dL (0.2-1.3); Blood Urea Nitrogen 26 mg/dL (9-20); Calcium 8.9 mg/dL (8.4-10.2); Carbon Dioxide 23 mmol/L (22-30); Chloride 97 mmol/L (98-107); Estimated CRCL calculation 43 ml/min; Estimated Glomerular Filt Rate > 60; Glucose 112 mg/dL (65-110); Potassium 4.3 mmol/L (3.4-5.0); Sodium 129 mmol/L (137-145); Total Protein 6.8 g/dL (6.3-8.2)
--- NOTE | 2024-12-23 07:40 | P.PNIM_ITS ---
Progress Note: A&P Assessment and Plan (1) CVA (cerebral vascular accident): Code(s): I63.9 - Cerebral infarction, unspecified Status: Acute Assessment and Plan: -MRI Brain: No acute infarct, intracranial hemorrhage, or mass lesion.Severe chronic microvascular ischemic disease and severe generalized atrophy. -CTA head and neck :1. Atherosclerotic plaque with 0% stenosis of the right and left carotid bulbs relative to normal distal artery lumen diameter (NASCET criteria). 2. Age-related changes the brain including moderate diffuse volume loss and moderate scattered white matter hypoattenuation. No acute intracranial process. 3. 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 4. Unremarkable cerebral CT angiogram with no hemodynamically significant stenosis, thrombosis or aneurysm. 5. Moderate emphysema. -CT Head : No acute intracranial hemorrhage or suspicious mass effect. Decreased attenuation within the right posterior lobe of the cerebellum, an interval change from 04/22/2024, possibly representing interval cerebral infarction -patient needs to follow-up with the vascular surgeon for severe stenosis at origin of the right vertebral artery as an outpatient -NIHS 0 -echo with bubble study pending -bedside swallow pending -aspirin and statin -LDL goal less than 70 -if neurology recommends will add clopidogrel -permissive hypertension less than 220/120 if no thrombolytics. -neurology consulted awaiting recommendation -speech and swallow evaluation -PT/OT eval - not candidate for thrombolytics due to resolution/past the time limit ECHO 12/19/24: Summary 1. Technically suboptimal study due to poor sonographic images. 2. Definity contrast administered improved wall motion interpretation. 3. Left ventricular chamber dimension is normal. 4. Left ventricular systolic function is normal, estimated at 60-65. 5. There is mild concentric increased left ventricular wall thickness. 6. The left ventricular diastolic function is grade I diastolic dysfunction. 7. E/e' 5 is not elevated. 8. Agitated saline injection with and without valsalva maneuver which was suboptimal as bubbles not seen in right ventricle. 9. There is mild aortic valve sclerosis. 10. There is trace aortic valve regurgitation. 11. There is mild mitral valve regurgitation. 12. There is mild tricuspid valve regurgitation. 13. No pulmonary hypertension, estimated pulmonary arterial systolic pressure is 30 mmHg. 14. There is trace pulmonic regurgitation. (2) Atrial fibrillation: Code(s): I48.91 - Unspecified atrial fibrillation Status: Acute Assessment and Plan: Not on anticoagulation due to cost Will discuss with care coordination Not on rate control medication Will discuss with the family and will start Eliquis tomorrow Eliquis was started as pt and family were agreeable but today daughter states that pt will not be taking it discussed and pt and family is aware of risk of not taking it - ekg 12/18- sinus rhythm (3) Hyperglycemia: Code(s): R73.9 - Hyperglycemia, unspecified Status: Acute Assessment and Plan: HbA1c 6.1 Order low-dose sliding scale Hypoglycemic protocol (4) Hearing loss, bilateral: Code(s): H91.93 - Unspecified hearing loss, bilateral Status: Acute Assessment and Plan: Chronic Follows up with ENT as an outpatient Time Spent With Patient Time with patient: 25 - 35 minutes Subjective Date/time seen: 12/23/24 07:40 Interval history: Recommend patient needs to be on anticoagulant. discussed with family and agrees to start anticoagulants initially. Patient has AFib and was not on anticoagulant due to cost. discussed with the Case Management regarding the cost. Case management will work on free supply for a month. as mentioned previously patient needs to see vascular surgeon as outpatient for vertebral artery stenosis. Patient needs physical therapy upon discharge. Discussed with pt and daughter - they do'not want to take Eliquis as pt would not be able to afford it after 1 month of free sample. Discussed in details that not taking it would put pt at risk for blood clots - both aware. They do not want to try Coumadin either as it will require frequent monitoring and frequent labs. Review of Systems Review of Systems: All systems reviewed & are unremarkable except as noted in HPI and below Exam Const: General: healthy appearing, no acute distress and well nourished Nutritional Appearance: well nourished Orientation/consciousness: patient oriented x3 Limitations: no limitations HENMT: Ears: TM's normal bilaterally Eyes: Pupils: Equal, round and reactive pupils present EOM: EOMs intact bilaterally Neck: Neck: normal visual inspection, no lymphadenopathy and no meningeal signs Resp: Effort & Inspection: normal respiratory effort Auscultation: clear to auscultation bilaterally Cardio: Rate: regular rate Rhythm: regular rhythm GI: Auscultation: normal bowel sounds Skin: General skin exam: normal color Rashes: no rashes Wounds: no wounds Neuro: General: patient oriented x3, moves all extremities, no meningeal sig ns, no focal motor deficits and CN's II-XI intact bilaterally Cranial nerves: Yes Equal, round and reactive pupils present and Yes Nystagmus not present Speech: normal speech Other: when walking pt said he felt a little dizzy and did have to episodes where he briefly lost his balance leaning to the right but quickly recovered. Extrem: General: normal to inspection and no clubbing, cyanosis or edema Psych: Mental Status: mental status grossly normal Affect: normal affect Objective Data Vital Signs Vital Signs: Vital Signs - 24 hr 12/22/24 08:00 12/22/24 08:00 12/22/24 08:19 Temperature Pulse Rate 82 Respiratory Rate Blood Pressure Pulse Oximetry 96 Oxygen Delivery Room Air Room Air 12/22/24 12:00 12/22/24 13:44 12/22/24 13:44 Temperature 97.5 F L 97.5 F L Pulse Rate 67 73 73 Respiratory Rate 18 18 Blood Pressure 127/53 L 127/53 L Pulse Oximetry 97 97 Oxygen Delivery 12/22/24 13:46 12/22/24 13:48 12/22/24 16:00 Temperature Pulse Rate 87 88 63 Respiratory Rate Blood Pressure 119/71 119/55 L Pulse Oximetry 100 98 Oxygen Delivery 12/22/24 19:35 12/22/24 19:52 12/22/24 19:53 Temperature 97.7 F 97.7 F 97.7 F Pulse Rate 82 88 92 Respiratory Rate 28 H 24 H 22 H Blood Pressure 135/49 L 111/62 146/59 H Pulse Oximetry 100 97 92 Oxygen Delivery 12/22/24 19:54 12/22/24 20:00 12/22/24 20:00 Temperature 97.7 F Pulse Rate 67 79 Respiratory Rate 22 H Blood Pressure 156/46 H Pulse Oximetry 98 Oxygen Delivery Room Air 12/23/24 00:00 12/23/24 03:33 12/23/24 04:00 Temperature 97.5 F L Pulse Rate 68 65 65 Respiratory Rate 22 H Blood Pressure 176/51 H Pulse Oximetry 99 Oxygen Delivery Intake/Output Intake/Output: Intake & Output 12/20/24 12/21/24 12/22/24 12/23/24 23:59 23:59 23:59 23:59 Intake Total 2210 2500 1450 250 Output Total 900 Balance 2210 2500 550 250 Meds/Results Medications: Active Medications Generic Name Dose Route Start Last Admin Trade Name Freq PRN Reason Stop Dose Admin Acetaminophen 650 mg 12/18/24 20:19 Acetaminophen 325 Mg Tablet PO Q4H PRN Mild Pain (1-3) or Fever Amlodipine Besylate 5 mg 12/20/24 09:00 12/22/24 09:05 Amlodipine Besylate 5 Mg Tablet PO 5 mg DAILY CONNIE Administration Apixaban 5 mg 12/23/24 09:00 Apixaban 5 Mg Tablet PO Q12HR CONNIE Aspirin 81 mg 12/19/24 11:00 12/22/24 09:05 Aspirin 81 Mg Enteric Tablet PO 81 mg DAILY CONNIE Administration Atorvastatin Calcium 20 mg 12/19/24 11:00 12/22/24 09:04 Atorvastatin 20 Mg Tablet PO 20 mg DAILY CONNIE Administration Buspirone HCl 5 mg 12/19/24 11:00 Buspirone Hcl 5 Mg Tablet PO Q12H PRN anxiety Dextrose 12.5 gm 12/19/24 14:11 Dextrose 50% 25 Gm/50 Ml Syringe IV PUSH PRN PRN Hypoglycemia Protocol Doxazosin Mesylate 1 mg 12/19/24 11:00 12/22/24 09:05 Doxazosin Mesylate 1 Mg Tablet PO 1 mg DAILY CONNIE Administration Fluticasone Propionate 1 spray 12/19/24 21:00 12/22/24 20:58 Fluticasone Propionate 0.05% Na Spr 16 Gm Btl (*Bk) NASAL 1 spray Q12HR CONNIE Administration Glucagon 1 mg 12/19/24 14:11 Glucagon For Inj 1 Mg Vial IM PRN PRN Hypoglycemia Protocol Glucose 15 gm 12/19/24 14:11 Glucose Oral Gel 15 Gm Of Glucse In 37.5 Gm Tube PO PRN PRN Hypoglycemia Protocol Guaifenesin 1,200 mg 12/21/24 21:00 12/22/24 20:57 Guaifenesin 12 Hr 600 Mg Tabcr PO 1,200 mg Q12HR CONNIE Administration Dextrose 1,000 mls @ 100 mls/hr 12/19/24 14:11 Dextrose 5% 1,000 Ml IVPB PRN PRN Hypoglycemia Protocol Ceftriaxone Sodium 1 gm in 50 mls @ 100 mls/hr 12/21/24 14:00 12/22/24 15:39 Rocephin 1 Gm/Ns 50 Ml IVPB Infused Q24H CONNIE Infusion Ipratropium [place] 2 spray 12/19/24 11:00 Ipratropium Nasal [place] 0.03% 15 Ml Bottle NASAL QAM PRN NASAL DISCHARGE Losartan Potassium 100 mg 12/20/24 09:00 12/22/24 09:04 Losartan Potassium 100 Mg Tablet PO 100 mg DAILY CONNIE Administration Mupirocin 1 applic 12/19/24 10:56 Mupirocin 2% Oint 22 Gm Tube TOPICAL BID PRN wound care Polyethylene Glycol 17 gm 12/19/24 11:00 12/22/24 09:05 Polyethylene Glycol 3350 17 Gm Powd.Pack PO 17 gm QAM CONNIE Administration Radiology Results: ITS Impressions Head CT 12/18/24 19:01 Impression: No acute intracranial hemorrhage or suspicious mass effect. Decreased attenuation within the right posterior lobe of the cerebellum, an interval change from 04/22/2024, possibly representing interval cerebral infarction. Head/Neck CTA 12/19/24 15:35 IMPRESSION: 1. Atherosclerotic plaque with 0% stenosis of the right and left carotid bulbs relative to normal distal artery lumen diameter (NASCET criteria). 2. Age-related changes the brain including moderate diffuse volume loss and moderate scattered white matter hypoattenuation. No acute intracranial process. 3. 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 4. Unremarkable cerebral CT angiogram with no hemodynamically significant stenosis, thrombosis or aneurysm. 5. Moderate emphysema. Brain MRI 12/21/24 06:30 IMPRESSION: No acute infarct, intracranial hemorrhage, or mass lesion. Severe chronic microvascular ischemic disease and severe generalized atrophy. Labs Labs: Laboratory Results - last 24 hr 12/23/24 04:32 WBC 6.2 RBC 4.74 Hgb 14.7 Hct 43.8 MCV 92.4 MCH 31.0 MCHC 33.6 RDW 13.1 Plt Count 198 MPV 10.0 Sodium 129 L Potassium 4.3 Chloride 97 L Carbon Dioxide 23 Anion Gap 9 BUN 26 H Creatinine 0.97 Estim Creat Clear Calc 43 Estimated GFR > 60 Glucose 112 H Calcium 8.9 Total Bilirubin 0.8 AST 24 ALT 16 Alkaline Phosphatase 120 Total Protein 6.8 Albumin 4.0
[2024-12-23] MEDS: amLODIPine BESYLATE 5 MG TABLET PO (08:20)
[2024-12-23] MEDS: ASPIRIN 81 MG ENTERIC TABLET PO (08:20)
[2024-12-23] MEDS: FLUTICASONE PROPIONATE 0.05% NA SPR 16 GM BTL (*BKC) 1 SPRAY NASAL ×2 (08:21→20:06)
[2024-12-23] MEDS: guaiFENesin 12 HR 600 MG TABCR 1200 MG PO (08:21)
[2024-12-23] MEDS: LOSARTAN POTASSIUM 100 MG TABLET PO (08:21)
[2024-12-23] MEDS: ATORVASTATIN 20 MG TABLET PO (08:21)
[2024-12-23] MEDS: DOXAZOSIN MESYLATE 1 MG TABLET PO (08:22)
[2024-12-23] MEDS: ONDANSETRON INJ 4 MG/2 ML VIAL IV PUSH (09:41)
[2024-12-23] MEDS: CEPHALEXIN 500 MG CAPSULE PO ×2 (11:46→20:05)
[2024-12-24 04:20] VITALS: BP 140/64; PULSE 85; RESP 18; TEMP 36.5; O2SAT 94
[2024-12-24 08:40] VITALS: O2SAT 93
[2024-12-24 08:55] VITALS: O2SAT 93
[2024-12-24] MEDS: ASPIRIN 81 MG ENTERIC TABLET PO (09:37)
[2024-12-24] MEDS: amLODIPine BESYLATE 5 MG TABLET PO (09:37)
[2024-12-24] MEDS: LOSARTAN POTASSIUM 100 MG TABLET PO (09:37)
[2024-12-24] MEDS: ATORVASTATIN 20 MG TABLET PO (09:37)
[2024-12-24] MEDS: CEPHALEXIN 500 MG CAPSULE PO (09:37)
[2024-12-24] MEDS: DOXAZOSIN MESYLATE 1 MG TABLET PO (09:38)
[2024-12-24] MEDS: ONDANSETRON HCL ODT 4 MG TABLET PO (10:08)
[2024-12-24] MEDS: CLOPIDOGREL BISULFATE 75 MG TABLET PO (11:52)
--- NOTE | 2024-12-24 13:47 | P.DS_ITS ---
DS: Admitting Diagnosis Discharge Date 12/24/2024 Admitting Diagnosis CVA Afib Hyperglycemia Hearing loss, bilateral DS: Discharge Diagnosis Discharge Diagnosis (1) CVA (cerebral vascular accident): Code(s): I63.9 - Cerebral infarction, unspecified Status: Acute (2) Atrial fibrillation: Code(s): I48.91 - Unspecified atrial fibrillation Status: Acute (3) Hyperglycemia: Code(s): R73.9 - Hyperglycemia, unspecified Status: Acute (4) Hearing loss, bilateral: Code(s): H91.93 - Unspecified hearing loss, bilateral Status: Acute DS: Summary Hospital Course Reason for hospitalization: CVA Afib Hyperglycemia Hearing loss, bilateral Hospital Course: A 89-year-old male with past medical history of peripheral vascular disease, COPD, BPH, depression, AFib, hypertension, anemia, anxiety, constipation, hyperlipidemia, and dementia presented to the hospital for dizziness and unsteady gait. Patient underwent a CVA workup. Head CT showed no acute intracr anial hemorrhage or suspicious mass effect. Head/neck CTA showed atherosclerotic plaque with 0% stenosis fo right and left carotids, age related changes, and severe stenosis of the right vertebral artery. Brain MRI showed no acute infarct, intracranial hemorrhage or mass lesion. Echo showed LVEF 60-65% with grade I diastolic dysfunction a seemingly negative bubble. Patient evaluated by neurology. Patient to remain on asprin and statin dose increased. Neurology also discussed vertebral artery stenting which patients daughter plans to look further into after discharge. Prior to discharge discussed patient with Neurology Dr. Albert who was in agreement that patient be started on dual antiplatelet therapy given the vertebral artery stenosis. Patient remains on aspirin and was started on Plavix. Had an in-depth conversation with patient and his daughter about the new medication as well as the risks versus benefits of starting Plavix. Both the patient and his daughter stated understanding at that time and were in agreement with starting medication. During admission patient was also diagnosed with a UTI. Urine culture grew coag neg staph, not saprophyti. Started on IV antibiotics and transitioned to PO at time of discharge to complete the course. Patient also has chronic atrial fibrillation and is not taking his eliquis due to cost. Discussed this with patient and his daughter about the risks of not being on an anticoagulant and the possibility of using warfarin which is cheaper. They stated understanding but did not wish to start or continue any anticoagulation. Patient had no complaints at time of discharge denying chest pain, shortness a breath, palpitations, nausea/vomiting, and abdominal pain. Patient discharged to SNF in a stable condition. He is follow-up with his primary care provider in 1 week and Neurology as scheduled. Status at Discharge Functional status at discharge: uses cane/walker Time Spent with Patient Time attestation: Total time spent providing and/or coordinating discharge services: Time spent: Greater than 30 minutes Exam Narrative: AF HR 85 RR 18 SpO2 94 BP 140/64 General: male in no acute respiratory distress who is nontoxic appearing, sitting up in chair HEENT: Normocephalic. Atraumatic. Extraocular movement intact. Sclera clear and anicteric. No facial asymmetry. Chest: Lungs are clear to auscultation bilaterally. No wheezes or crackles. CV: Heart was regular rate and rhythm. Abd: Abdomen was soft. Nontender. Nondistended. Positive bowel sounds. Ext: No clubbing, cyanosis, or edema. DP pulses bilaterally. Neuro: Patient is alert and oriented x4. Speech is clear. DS: Data Data Completed and Pending Completed studies during hospitalization: brain mri head/neck cta head ct Discharge Plan Discharge Attending physician on discharge: Slick Muller Consulting providers: Sukhjinder Zheng; Don Albert; Jennifer Pedro Discharging Clinician: Jennifer Pedro Anticipated Discharge Date/Time: 12/24/24 13:33 Patient Disposition: SNF Activity: as tolerated Diet: as tolerated and heart healthy Discharge Instructions: Discharge disposition: Patient admitted to the hospital for dizziness and abnormal gait Evaluated by neurology Imaging showed vertebral artery stenosis (narrowing), follow up about possible stenting Continue aspirin. Strict bleeding precautions since you are being started on Plavix including shaving with an electric razor, holding pressure for greater than 20 minutes for injury, protection of had with any falls, etc. Eat well balanced meals and stay hydrated Follow-up with neurology Patient has chronic atrial fibrillation Does not wish to continue eliquis or start warfarin at this time Follow up with cardiology Monitor blood pressures On amlodipine and losartan Take caution while standing, rising, or moving Change positions slowly taking a break between each position change If you standing feel dizzy sit back down and take a break Encouraged to continue with yearly vaccinations Return to the emergency department if he developed sudden shortness of breath, chest pain, nausea, vomiting, upset stomach or intractable diarrhea Return to the emergency department if you develop fever greater than 101.5 Follow-up with the primary care physician within 1-2 weeks Thank you for [facility] for your healthcare needs Patient Instructions: Aspirin (By mouth), Amlodipine (By mouth), Losartan (By mouth), Clopidogrel (By mouth), Transient Ischemic Attack (DC), Safe Use of Antiplatelet Medication (DC) Patient Language: Turkmen Stand Alone Forms: General Discharge Information Follow-up/Referrals: Mely Gupta NP [Primary Care Provider] - 1 Week Don Albert MD [Physician] - Call for Appointment Discharge Medications: New clopidogrel 75 mg Tablet 75 mg PO QAM Qty: 30 0RF cephalexin 500 mg Capsule 500 mg PO Q12HR Qty: 7 0RF losartan 100 mg Tablet 100 mg PO DAILY Qty: 30 0RF amlodipine 5 mg tablet 5 mg PO DAILY Qty: 30 0RF Continued buspirone 5 mg tablet 5 mg PO BID PRN (Reason: anxiety) Qty: 60 0RF ipratropium bromide 21 mcg (0.03 %) spray,non-aerosol 2 spray intranasal .qd-tid Qty: 30 3RF Rx Instructions: administer into each nostril. Aim back/up/out aspirin 81 mg tablet,delayed release (DR/EC) 81 mg PO DAILY polyethylene glycol 3350 [Miralax] 17 gram Powder In Packet 17 g PO QAM Qty: 7 0RF fluticasone propionate [Flonase Allergy Relief] 50 mcg/actuation spray,suspension 1 spray intranasal BID Qty: 16 0RF Rx Instructions: administer into each nostril doxazosin 1 mg tablet 1 mg PO DAILY Qty: 90 3RF albuterol sulfate 90 mcg/actuation HFA aerosol inhaler 1 - 2 inh inhalation Q4-6H PRN (Reason: shortness of breath or wheezing) Qty: 8.5 2RF mupirocin [Centany] 2 % ointment 1 applic topical BID PRN (Reason: wound care) Qty: 22 5RF Changed atorvastatin 20 mg tablet 40 mg PO DAILY Qty: 30 11RF Discontinued losartan 50 mg tablet 75 mg PO DAILY 90 Days Qty: 135 3RF Date of admission: 12/22/24 14:24 Primary Care Provider: Mely Gupta Admitting Provider: Keyona Shelley Attending physician on admission: Keyona Shelley Condition: Stable Hospitalist MIPS Heart Failure (Exclusion) Patient has history of Heart Transplant or Left Ventricular Assistive Device?: No IF YES, STOP HERE Heart Failure (Qualifier) Patient has current or prior documentation of LVEF less than or equal to 40%, or mod/servere depressed LVSF?: No IF NO, STOP HERE
== END 2024-12-24 14:35 | DRG 149 ==
LOC: ANHED 20:24 → ANH3MEDSUR 21:24 → ANH2MED 12-19 11:41
PROVIDERS: Emergency Medicine; General Practice; Admitting Provider Internal Medicine; Emergency Provider Emergency Medicine; PCP Nurse Practitioner Family; Visit Provider Student in an Organized Health Care Education/Training Program
DX: R42 Dizziness and giddiness (principal); I48.20 Chronic atrial fibrillation, unspecified; N39.0 Urinary tract infection, site not specified; I65.01 Occlusion and stenosis of right vertebral artery; I73.9 Peripheral vascular disease, unspecified; J44.9 Chronic obstructive pulmonary disease, unspecified; I10 Essential (primary) hypertension; E78.5 Hyperlipidemia, unspecified; N40.0 Benign prostatic hyperplasia without lower urinary tract symptoms; R73.9 Hyperglycemia, unspecified; H91.93 Unspecified hearing loss, bilateral; M47.26 Other spondylosis with radiculopathy, lumbar region; F03.90 Unspecified dementia, unspecified severity, without behavioral disturbance, psychotic disturbance, mood disturbance, and anxiety; F41.9 Anxiety disorder, unspecified; F32.A Depression, unspecified; Z87.891 Personal history of nicotine dependence; Z79.82 Long term (current) use of aspirin
CPT/HCPCS: 36415; 70450; 70496; 70498; 70551; 80053; 81001; 82140; 82607; 82746; 82948; 83036; 84439; 84443; 84480; 85025; 85027; 85610; 85730; 87086; 92507; 92523; 92610; 93005; 93306; 96374; 96375; 97110; 97116; 97162; 97166; 97530; 97535; 99285; A9270; C8929; G0378; J0696; J2405; Q9957; Q9967

== ENCOUNTER 2025-01-22 13:11 | Observation (INO) | payer OTHER, MEDICAID, SELFPAY ==
[2025-01-22] VITALS (13 sets, daily range): BP systolic 146–184; BP diastolic 58–97; PULSE 72–99; RESP 16–21; TEMP 36.1–36.4; O2SAT 94–100; BMI 18.1
--- NOTE | ~2025-01-22 | XR_ITS ---
EXAM/PROCEDURE: XR chest 1V portable - 01/22/2025 13:26 CDT HISTORY: 89 years old Male with syncope TECHNIQUE: Two view(s) of the chest. COMPARISON: None available. FINDINGS: LUNGS/ PLEURA: No focal consolidation. No appreciable pneumothorax or large pleural effusion. HEART/ MEDIASTINUM: Heart appears normal in size. BONES: No acute osseous abnormality. OTHER: Visualized upper abdomen is unremarkable. IMPRESSION: No acute process. Reviewed, dictated and finalized at location A. IMPRESSION: No acute process.
--- NOTE | ~2025-01-22 | CT_ITS ---
History: Fall PROCEDURE: CT head without contrast. COMPARISON: 12/18/2024 TECHNIQUE: Axial imaging of the head performed from the skull base to the vertex without IV contrast. Sagittal a nd coronal reformations obtained. DLP: 757 mGy-cm FINDINGS: The ventricles are enlarged. The dilatation of the ventricles is proportional to the degree of sulcal prominence, not uncommon in the senescent brain. Decreased attenuation is identified within the periventricular white matter, likely secondary to micr ovascular ischemic disease, in a patient of this age. There is no mass, mass effect or midline shift. There is no abnormal extra-axial fluid collection or intracranial hemorrhage. Visualized paranasal sinuses are clear. The mastoid air cells are well aerated. No acute displaced fractures within the overlying cranium. Impression: No acute intracranial hemorrhage or suspicious mass effect. Reviewed, dictated and finalized at location A. Impression: No acute intracranial hemorrhage or suspicious mass effect.
--- NOTE | 2025-01-22 13:17 | ECG_ITS ---
Test Date: 2025-01-22 13:28:07 Measurements Intervals [place] Rate: 75 P: 70 [place]: 174 QRS: -43 QRSD: 149 T: 48 QT: 411 QTc: 460 Interpretive Statements SINUS RHYTHM LEFT ANTERIOR FASCICULAR BLOCK RIGHT BUNDLE BRANCH BLOCK [120+ ms QRS DURATION, UPRIGHT V1, 40+ ms S IN I/aVL/V4/V5/V6] Compared to ECG 12/18/2024 18:22:27 NO SIGNIFICANT CHANGES Electronically Signed On 01-23-2025 15:59:03 CDT by Leo Beck M.D.
--- NOTE | 2025-01-22 13:27 | ED_ITS ---
HPI - Syncope General Chief Complaint: Syncope Stated Complaint: syncopy History of Present Illness HPI narrative: Pt sasy he was standing and then felt dizzy and had syncopal episode. Pt says he did not injure himself. Pt had no CP or SOB or palpitations before of after event. Pt says he has a history of this many times in past and no cause has ever been identified. Pt feels fine now. Related Data Home Medications ?Medication ?Instructions ?Recorded ?Confirmed ?Last Taken ?Type aspirin 81 mg tablet,delayed 81 mg PO DAILY 12/12/21 12/19/24 02/16/22 History release Allergies Allergy/AdvReac Type Severity Reaction Status Date / Time No Known Allergies Allergy Verified 12/18/24 18:36 Review of Systems 2 Review of Systems: All systems reviewed & are unremarkable except as noted in HPI and below PMFSH Past Medical History Medical History Lumbar radiculopathy Lumbar spondylosis Peripheral vascular disease Chronic obstructive pulmonary disease Benign prostatic hyperplasia Depression Seasonal allergies Anemia Hypertension Atrial fibrillation Anxiety Constipation Dementia Hyperlipidemia Surgical History Surgical History Status post peripheral artery angioplasty with insertion of stent History of cholecystectomy Family History Family History Other Unknown family medical history Social History Social History Social History: 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 Code status: Smoking packs per day: 1 Smoking cigarettes per day: 20.0 Smoking status: Former smoker Tobacco type: cigarettes Smoking end date: 07/02/08 Alcohol intake: never Drinks per week: 2 Substance use: never Substance use type: does not use Do You Feel Safe in your Home?: Yes Lack of Transportation: No Lack of Food: Never True Current Housing: I Have Housing Concerned About Future Housing: No Difficulty Paying Gas/Electric Bills: No Difficulty Paying for Meds: No Currently Unemployed: No Education: Grade School Difficulty w/ Childcare or Family Care: No Spiritual care concerns: No Exam 2 Const: General: healthy appearing and no acute distress Nutritional Appearance: well nourished Orientation/consciousness: patient oriented x3 Limitations: no limitations HENMT: Head: normal to inspection Mouth: Yes Normal oral and palatal mucosa present Throat: posterior oropharynx normal Eyes: EOM: EOMs intact bilaterally Resp: Effort & Inspection: normal respiratory effort Auscultation: clear to auscultation bilaterally Cardio: Rate: regular rate Rhythm: regular rhythm GI: GI Palp: Yes Soft to palpation Auscultation: normal bowel sounds Skin: General skin exam: normal color Rashes: no rashes Wounds: no wounds Neuro: General: patient oriented x3, moves all extremities, no meningeal signs, no focal motor deficits and CN's II-XI intact bilaterally Cranial nerves: Yes Nystagmus not present Speech: normal speech Extrem: General: normal to inspection and no clubbing, cyanosis or edema Psych: Mental Status: mental status grossly normal Affect: normal affect Attitude: cooperative Course Vital Signs Vital signs: Vital Signs Temperature 97.6 F 01/22/25 13:11 Pulse Rate 74 01/22/25 13:11 Respiratory Rate 21 H 01/22/25 13:11 Blood Pressure 163/76 H 01/22/25 13:11 Pulse Oximetry 96 01/22/25 13:11 Temperature 97.6 F 01/22/25 13:11 Pulse Rate 77 01/22/25 16:32 Respiratory Rate 20 01/22/25 16:32 Blood Pressure 146/58 H 01/22/25 16:32 Pulse Oximetry 98 01/22/25 16:32 MDM - Syncope MDM Narrative Medical decision making narrative: Pt had syncopal episode. Pt did not just stand but had been standing for a bit. need to rule out electrolyte disturbance or arrhythmia but pt says has had numerous times without cause identified. will rule out acs as well with trop. will get orthostatics to rule out volume depletion. labs and ekg unremarkable. Pt agreed to admission afer some discussion with myself and daughter. environmental services associate will work on placement since daughter is concerned with his frequent falls and him living at home by himself. discussed with Laura Chavis and she agrees to observation Lab Data 01/22/25 13:23 01/22/25 13:23 Labs: Lab Results 01/22/25 01/22/25 Range/Units 13:23 14:13 WBC 5.5 (4.5-10.0) K/mm3 RBC 4.47 L (4.6-6.20) M/mm3 Hgb 14.0 (14.0-18.0) g/dL Hct 41.8 L (42.0-52.0) % MCV 93.5 (80-100) fl MCH 31.3 (26-34) pg MCHC 33.5 (32-36) g/dl RDW 13.2 (11.5-14.5) % Plt Count 193 (150-375) k/mm3 MPV 9.1 (7.4-10.4) fl Immature Gran % (Auto) 0.5 (0-0.5) % Neut % (Auto) 67.9 (45.5-73.1) % Lymph % (Auto) 17.1 L (18.3-44.2) % [place] % (Auto) 8.7 H (2.6-8.5) % Eos % (Auto) 4.9 H (0-4.4) % Baso % (Auto) 0.9 (0.2-1.2) % Lymph # (Auto) 0.94 (0.9-3.2) K/mm3 [place] # (Auto) 0.5 (0.1-0.6) K/mm3 Eos # (Auto) 0.3 (0-0.3) K/mm3 Baso # (Auto) 0.1 (0.0-0.1) K/mm3 Abs Immat Gran (auto) 0.03 (0.00-0.031) K/mm3 Absolute Neuts (auto) 3.7 (1.3-6.7) K/mm3 Absolute Nucleated RBC 0.000 (0.0-0.012) K/mm3 Nucleated RBC % 0.0 (0.0-0.2) % Sodium 133 L (137-145) mmol/L Potassium 4.6 (3.4-5.0) mmol/L Chloride 101 (98-107) mmol/L Carbon Dioxide 24 (22-30) mmol/L Anion Gap 8 (4-12) mmol/L BUN 22 H (9-20) mg/dL Creatinine 0.96 (0.7-1.3) mg/dL Estim Creat Clear Calc 45 ml/min Estimated GFR > 60 (59 - ) Glucose 105 (65-110) mg/dL Calcium 9.4 (8.4-10.2) mg/dL Total Bilirubin 0.9 (0.2-1.3) mg/dL AST 28 (17-59) U/L ALT 16 (6-50) U/L Alkaline Phosphatase 107 (38-126) U/L Troponin I < 0.012 (0.000-0.034) ng/mL Total Protein 7.1 (6.3-8.2) g/dL Albumin 4.1 (3.5-5.1) g/dL Urine Color Yellow (Yellow) Urine Appearance Clear (Clear) Urine pH 6.0 (5.0-9.0) Ur Specific [place] 1.019 (1.001-1.035) Urine Protein Negative (Negative) mg/dL Urine Glucose (UA) Negative (Negative) mg/dL Urine Ketones Trace H (Negative) mg/dL Ur Blood (Man) Negative (Negative) Urine Nitrate Negative (Negative) Urine Bilirubin Negative (Negative) Urine Urobilinogen 1.0 (<2.0) mg/dL Leukocyte Esterase Rfl Negative (Negative) ABRIL/UL Discharge Plan Discharge Clinical Impression: Syncope Patient Disposition: Still a Patient Condition: Stable
[2025-01-22 13:29] LABS: Hematocrit 41.8 % (42.0-52.0); Hemoglobin 14.0 g/dL (14.0-18.0); Immature Granulocyte Percent A 0.5 % (0-0.5); Lymphocytes Absolute Auto 0.94 K/mm3 (0.9-3.2); Mean Corpuscular HGB Conc 33.5 g/dl (32-36); Mean Corpuscular Hemoglobin 31.3 pg (26-34); Mean Corpuscular Volume 93.5 fl (80-100); Nucleated Red Blood Cells Absolute Auto 0.000 K/mm3 (0.0-0.012); Nucleated Red Blood Cells Perc 0.0 % (0.0-0.2); Platelet Count Result 193 k/mm3 (150-375); Red Blood Count 4.47 M/mm3 (4.6-6.20); White Blood Count 5.5 K/mm3 (4.5-10.0)
[2025-01-22 13:48] LABS: Alanine Aminotransferase 16 U/L (6-50); Albumin Level 4.1 g/dL (3.5-5.1); Alkaline Phosphatase 107 U/L (38-126); Anion Gap 8 mmol/L (4-12); Aspartate Amino Transferase 28 U/L (17-59); Bilirubin,Total 0.9 mg/dL (0.2-1.3); Blood Urea Nitrogen 22 mg/dL (9-20); Calcium 9.4 mg/dL (8.4-10.2); Carbon Dioxide 24 mmol/L (22-30); Chloride 101 mmol/L (98-107); Estimated CRCL calculation 45 ml/min; Estimated Glomerular Filt Rate > 60; Glucose 105 mg/dL (65-110); Potassium 4.6 mmol/L (3.4-5.0); Sodium 133 mmol/L (137-145); Total Protein 7.1 g/dL (6.3-8.2)
--- NOTE | 2025-01-22 13:49 | PC.NURSE ---
Pt states unable to give urine sample unless he can have some water. made aware. Dr. Daniel REYNOSO to give water. Water provided
--- NOTE | 2025-01-22 14:00 | PC.NURSE ---
Pt called out stating he threw up on the floor. RN entered room and cleaned. Pt continues to c/o nausea, made aware. Dr. Daniel REYNOSO to administer 4mg zofran IVP stat.
--- OUTSIDE RECORDS SUMMARY | 2025-01-22 14:01 | XMS_ITS | Clinical Summary ---
Author Organization [facility] Address [address] [place] [address] Phone Care Team Providers Care Animal Park Code Enforcement Officer Name Role Phone Brandon Sandoval MD Primary Care Provider [phone] Allergies No known active allergies Medications aspirin [...] Comments Blood Pressure 166/90 08/08/2021 10:50 AM CONSTRUCTION SITE CROSSING GUARD Pulse 86 08/08/2021 10:50 AM CON[employer]CTION S[employer] CR[employer]ING GUARD Temperature 37.1 C (98.8 F) 08/08/2021 10:50 AM CONSTRUCTION S[employer] CROSSING GUARD Respiratory Rate 16 08/08/2021 10:50 AM CONSTRUCTION SITE CROSSING GUARD Oxygen Saturation 95% 08/08/2021 10:50 AM CON[employer]CTION S[employer] CR[employer]ING GUARD Inhaled Oxygen Concentration - - Weight 69.4 kg (153 lb 1.6 oz) 08/08/2021 10:50 AM CONSTRUCTION SITE CROSSING GUARD Height 181.9 cm (5' 11.6) 08/08/2021 10:[address] Body Mass Index 21 08/08/2021 10:50 AM CONSTRUCTION SITE CROSSING GUARD Plan of Treatment Health Maintenance Due Date Last Done Comments Hepatitis C Virus (HCV) Screening 1935 TdaP Immunization 1935 Pneumococcal Immunization (5 0+ years) (1 of 1 - PCV) 11/22/1985 Zoster Immunization (1 of 2) 11/22/1985 Respiratory Syncytial Virus (RSV) Immunization (Adult) (1 - 1-dose 75+ series) 11/22/2010 SARS-COV-2 Immunization ( - season) 2024 Influenza Immunization (#1) 03/02/202504/02, 06/29/2021 Hepatitis B Immunization Aged Out No [...] on File Type Date Recorded Patient Career Developer Expl anation Power of Sales And Leasing Agent for Health Care 06/29/2021 10:02 AM Care Teams Animal Park Code Enforcement Officer Relationship Specialty Start Date End Date Brandon Sandoval MD PCP - General Internal Medicine 03/23/21
--- OUTSIDE RECORDS SUMMARY | 2025-01-22 14:01 | XMS_ITS | Referral Summary ---
Author Organization [facility] Address [address] [place] [address] Care Team Providers Care Manufacturing Storeperson Name Role Phone Miller Mcmanus MD Primary Care Provider [phone] Encounters Date Type Department Care Team Description 01/09/2025 10:00 AM CDT Office Visit [facility] [address] [place] [address] Ole Feldman MD Dizziness on standing (Primary Dx); Vertebral artery stenosis, unspecified laterality 01/08/2025 2:37 PM CDT - 01/08/2025 11:59 PM CDT Hospital Encounter [facility] [address] [place] [address] Discharge Disposition: Discharge to home or self care 12/30/2024 4:24 PM CDT - 12/30/2024 11:59 PM CDT Hospital Encounter [facility] ([facility]) [address] [place] [address] Discharge Disposition: Discharge to home or self care 11/30/2024 Telephone [facility] [address] [place] [address] Feliberto Ramey MD 11/10/2024 Results Follow-Up [facility] [address] [place] [address] Feliberto Ramey MD Basic metabolic panel 10/31/2024 9:45 AM CDT Ancillary Procedure [facility] [address] [place] [address] [address] [address] Permanent atrial fibrillation (HCC) 10/31/2024 9:00 AM CDT Office Visit [facility] [address] [place] [address] [address], [place] [address] Feliberto Ramey MD Permanent atrial [...] a day as needed for constipation Active rivaroxaban (XARELTO) 15 mg tablet Take 1 tablet (15 mg total) by mouth daily 90 tablet 3 Active amLODIPine (NORVASC) 5 mg tablet Take 1 tablet every day by oral route. Active busPIRone (BUSPAR) 5 mg tablet Take 1 tablet every 12 hours by oral route as needed. Active cephalexin (KEFLEX) 500 mg capsule Active clopidogreL (PLAVIX) 75 mg tablet Take 1 tablet every day by oral route. Active fluticasone propionate (FLONASE) 50 mcg/actuation nasal spray [place] 1 spray twice a day by intranasal route. Active guaiFENesin ER (MUCINEX) 600 mg 12 hr tablet Take 1 tablet every 12 hours by oral route for 5 days. Active ipratropium (ATROVENT) 21 mcg (0.03 %) nasal spray [place] 2 sprays every 8 hours by intranasal route as needed. 06/25/2 025 Active mupirocin (BACTROBAN) 2 % ointment APPLY OINTMENT TOPICALLY TWICE DAILY NEEDED FOR WOUND CARE 025 Active atorvastatin (LIPITOR) 40 mg tablet Take 1 tablet (40 mg total) by mouth daily 025 Active doxazosin (CARDURA) 1 mg tablet Take 1 tablet (1 mg total) by mouth daily 025 Active losartan (COZAAR) 100 mg tablet Take 1.5 tablets (150 mg total) by mouth daily 025 Active atorvastatin (LIPITOR) 20 mg tabletIndications:Pure hypercholesterolemia Take 1 tablet (20 mg total) by mouth nightly 90 tablet 3 021 2024 Disconti nued(Alt ernate therapy) doxazosin (CARDURA) 2 mg tabletIndications:hyper tension Take 1 tablet (2 mg total) by mouth nightly 30 tablet 022 2024 Disconti nued(Alt ernate therapy) losartan (COZAAR) 50 mg tablet 1.5 tablets daily 135 tablet 1 024 2024 Disconti nued(Alt ernate therapy) Active Problems Problem Noted Date Diagnosed Date Anemia, unspecified 12/24/2024 Constipation, unspecified 12/24/2024 Hypo-osmolality and hyponatremia 12/24/2024 Mixed hyperlipidemia 12/24/2024 Other seasonal allergic rhinitis 12/24/2024 Other sequelae of cerebral infarction 12/24/2024 Other spondylosis with radiculopathy, lumbosacra l region 12/24/2024 Other symptoms and signs involving the nervous s ystem 12/24/2024 Presence of other vascular implants and grafts 0 12/24/2024 Unspecified hearing loss, bilateral 12/24/2024 Urinary tract infection, site not specified 12/01 Peripheral vascular disease, unspecified 022 Assessment & Plan (10/31/2024 9:40 AM CDT): [...] 11:17 AM CDT): 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 Generalized anxiety disorder 09/21/2020 Assessment & Plan (09/21/2020 10:23 PM CDT): He should be restarting nortriptyline today if possible with pill packs from the pharmacy. BMI 21.0-21.9, adult 09/20/2020 Assessment & Plan (09/20/2020 9:00 AM CDT): BMI Follow-up includes: education provided. Dizziness on standing 07/28/2020 Assessment & Plan (11/03/2020 12:13 PM CDT): Ear canals clear. Minimal fluid in bilateral ears. Pt states he does not remember the last time he was dizzy. US carotids ordered Assessment & Plan (07/28/2020 9:42 AM [employer]): Likely related to uncontrolled allergies, though not sure if cerumen impaction also playing a role. I recommend use of Flonase (fluticasone) though he has been mostly non-compliant with suggestions on this; could be memory/cognitive in nature. Unspecified dementia, unspec ified severity, with mood disturbance 05/06/2020 Overview (09/20/2020): SLUMS score 9 on [...] others. Assessment & Plan (05/06/2020 11:31 PM [employer]): Unsure exact cause. Depression vs nutrition vs dehydration vs possible parkinsons?? Consult ACO He is recently less than 2 years ago. No family or friend support. Probable poor nutrition. Difficulty getting him to take meds as intended. Frequent falls 05/06/2020 Assessment & Plan (11/03/2020 12:12 PM CDT): Pt refuses cane or walker for ambulation. Assessment & Plan (05/06/2020 11:40 PM [employer]): Refuses neuro or PT consult. I think he falls more from flexing his neck versus position changes, stumbling, or orthostasis. During the office visit that took at least 40 minutes, I spent over 50% of the time either counseling, educating, discussing plan of treatment, or answering questions today. Tremor, unspecified 05/06/2020 Assessment & Plan (05/06/2020 11:33 PM [employer]): Refuses consult with neuro or anything that might cost him money. Trial Requip (ropinirole) 0.25mg tid. Consult ACO Illiteracy 05/06/2020 Weight loss 01/26/2020 Assessment & Plan (07/28/2020 7:23 PM [employer]): Stable with Mirtazapine. Will increase the Mirtazapine to 30mg today. Assessment & Plan (05/06/2020 11:37 PM [employer]): Possible improvement with Mirtazapine (if he is actually taking this med??) Consult ACO Assessment & Plan (01/26/2020 11:16 AM CDT): Start mirtazapine today. Protein shakes may be beneficial for him. We discussed getting enough fruits and vegetables in. Essential (primary) hypertension 07/28/2019 Assessment & Plan (10/26/2023 10:28 AM [...] 8:55 AM CDT): Will refill Cardura to [facility] program. Hopefully this will allow patient to easy to access his medications. Will also order home health for social work and nursing services. With his blood pressure a elevated he likely needs a nurse to check this and assist him with medications. He is not cognitively aware enough to do this himself. Assessment & Plan (07/28/2020 7:26 PM [employer]): Will increase the doxazosin from 1 mg [...] readings. Assessment & Plan (07/28/2019 11:16 PM [employer]): New diagnosis. Start doxazosin (Cardura) for combined benefit of HTN and BPH. Call back with update in 2-3 weeks and blood pressure readings if possible. Chronic rhinitis 07/28/2019 Assessment & Plan (07/28/2019 11:20 PM [employer]): Start Flonase (fluticasone). Demonstrated use. Hearing difficulty of both ears 12/18/2018 Assessment & Plan (07/28/2020 7:45 PM [employer]): Tried to clean out ears today. Assessment & Plan (01/26/2020 11:12 AM CDT): Did not go to audiology due to cost. Assessment & Plan (12/18/2018 9:24 PM CDT): Audiology consult. 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 LDL is controlled well. Prediabetes 06/18/2017 Assessment & Plan (07/28/2020 7:21 PM [employer]): Will check new labs and make adjustments if needed. Assessment & Plan (01/26/2020 11:07 AM CDT): Will recheck fasting glucose today. Assessment & Plan (07/28/2019 11:16 PM [employer]): Get new labs Assessment & Plan (12/18/2018 9:23 PM CDT): Lower carb diet recommended. Assessment & Plan (06/18/2017 1:26 PM [employer]): Please cut down on sweets. Chronic idiopathic constipation 12/13/2016 Assessment & Plan (07/28/2020 7:21 PM [employer]): Chronic & stable on meds. Continue current [...] Lipitor. Assessment & Plan (07/28/2020 7:43 PM [employer]): Chronic & stable on meds. Continue current treatment. Assessment & Plan (01/26/2020 11:06 AM CDT): Stop rosuvastatin and start atorvastatin 20mg due to cost. Check labs today. Assessment & Plan (07/28/2019 11:20 PM [employer]): Get updated labs soon. Assessment & Plan (12/18/2018 9:23 PM CDT): Chronic & stable on meds. Continue current treatment. Assessment & Plan (06/18/2018 2:20 PM [employer]): Chronic & stable on meds. Continue current treatment. Assessment & Plan (03/29/2018 1:48 PM CDT): LDL was 69 on 12/10/2017. Continue Mevacor treatment Assessment & Plan (12/17/2017 9:41 PM CDT): Chronic & stable on meds. Continue current treatment. Assessment & Plan (06/18/2017 1:26 PM [employer]): Chronic & stable on meds. Continue current treatment. Assessment & Plan (12/13/2016 3:05 PM CDT): Doing well with current treatment program and medications. No changes today Major depressive disorder, recurrent, unspecifie d 2015 Assessment & Plan (09/21/2020 10:24 PM CDT): Pay sent switching back from mirtazapine back to nortriptyline. Assessment & Plan (09/20/2020 8:57 AM CDT): Will switch the mirtazapine back to amitriptyline as patient seemed to do better on this. Will also order this to the med program at the pharmacy Assessment & Plan (07/28/2020 7:38 PM [employer]): Increase the Mirtazapine to 30mg daily and stop the Amitriptyline 10 mg daily, especially since he has constipation. Assessment & Plan (05/06/2020 11:37 PM [employer]): Patient symptomatic and not sure if he [...] treatment. Assessment & Plan (06/18/2018 2:20 PM [employer]): Chronic & stable on meds. Continue current treatment. Assessment & Plan (06/18/2017 1:26 PM [employer]): Chronic & stable on meds. Continue current treatment. Assessment & Plan (12/13/2016 3:05 PM CDT): Doing well with current treatment program and medications. No changes today Chronic atrial fibrillation, unspecified 015 Overview (10/07/2016): Atrial fibrillation Assessment & Plan [...] day long-term Holter monitor. Chronic obstructive pulmonary disease, unspecifi ed 02/15/2015 Assessment & Plan (07/28/2020 7:42 PM [employer]): Stable with out prescription medication. He feels [...] treatment. Assessment & Plan (06/18/2018 2:20 PM [employer]): Stable without regular use of inhalers. Assessment & Plan (03/12/2018 7:01 PM CDT): Albuterol HFA with aerochamber given today. Doxycycline and prednisone given for the exacerbation. Assessment & Plan (12/17/2017 9:42 PM CDT): Stable without medications and he doesn't want inhaler at this time. Assessment & Plan (12/13/2016 3:06 PM CDT): Patient refuses medications so no change in treatment. Benign prostatic hyperplasia without lower urinary tract symptoms 02/15/2015 Assessment & Plan (11/03/2020 12:10 PM CDT): Chronic and stable. Continue current medication(s) Assessment & Plan (07/28/2020 7:41 PM [employer]): Increase the doxazosin from 1 mg to 2 mg. Assessment & Plan (01/26/2020 11:09 AM CDT): Patient only took the doxazosin a couple times. Stop completely due to not taking it regularly and some lightheadedness when standing. Assessment & Plan (07/28/2019 11:16 PM [employer]): Start doxazosin (Cardura). Patient opted out of getting PSA testing at this time. Resolved Problems Problem Noted Date Diagnosed Date Resolved Date shelter (current) use of anticoagulants 11/13/2023 07/15/2024 Late onset Alzheimer's disea se without behavioral disturbance 09/20/2020 09/20/2020 Bilateral impacted cerumen 07/28/2020 0 09/17/2020 Assessment & Plan (07/28/2020 7:22 PM [employer]): Ear irrigation today. Encounter for Medicare annual [...] 12/18/19 Assessment & Plan (06/18/2017 1:20 PM [employer]): These look like a type of squamous [...] draws. Assessment & Plan (06/18/2018 2:20 PM [employer]): Chronic & stable on meds. Continue current [...] INR Assessment & Plan (06/18/2017 1:27 PM [employer]): Chronic & stable on meds. Continue current [...] slept in a jail (including now)? 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 [employer] Gender Identity Not on file Sexual Orientation Not on file Last Filed Vital Signs Vital Sign Reading Time Taken Comments Blood Pressure 176/72 01/09/2025 9:41 AM CDT Pulse 76 01/09/2025 9:41 AM CDT Temperature 36.9 C (98.4 F) 07/28/2020 8:55 AM [employer] Respiratory Rate 18 11/03/2020 9:16 AM CDT Oxygen Saturation 95% 01/09/2025 9:41 AM CDT Inhaled Oxygen Concentration - - Weight 68.6 kg (151 lb 4.8 oz) 01/09/2025 9:41 A M CDT Height 182.9 cm (6') 01/09/2025 9:41 AM CDT Body Mass Index 20.52 01/09/2025 9:41 AM CDT Plan of Treatment Not on file Procedures Procedure Name Priority Date/Time Associated Diagnosis Comments NEURO MR OUTSIDE REFERENCE Routine 01/08/2025 2:[address] OUTSIDE REFERENCE Routine 12/30/2024 4:24 PM CDT BASIC METABOLIC PANEL Routine 11/07/2024 9:56 AM CDT Permanent atrial fibrillation (HCC) EXTENDED/CORRECTION HOLTER PATCH (>48 HOURS UP TO 7 DAYS) Routine 10/31/2024 9:42 AM CDT Permanent atrial fibrillation (HCC) from Last 3 Months Results * Neuro MR Outside Reference (01/08/2025 2:37 PM CDT) Impressions [facility] - 01/08/2025 2:37 PM CDT These images are for Reference purposes only and have not been reviewed by [facility]. There will be no report generated by a [facility]iologist. Narrative [facility] - 01/08/2025 2:37 PM CDT EXAMINATION: Images For Reference Purposes Only us Ole Feldman MD IMG MRI PROCEDURES Final Resul t [facility] * Neuro CT Outside Reference (12/30/2024 4:24 PM CDT) Impressions [facility] - 12/30/2024 4:24 PM CDT These images are for Reference purposes only and have not been reviewed by [facility]. There will be no report generated by a [facility]iologist. Narrative [facility] - 12/30/2024 4:24 PM CDT EXAMINATION: Images For Reference Purposes Only us Ole Feldman MD IMG CT PROCEDURES Final Result Performing Organization Address City/[facility]/ZIP Co de Phone Number [facility] * (ABNORMAL) Basic metabolic panel (11/07/2024 9:56 AM CDT) Pathologist [facility] Glucose 108(H) 65 - 99 mg/dL [facility] Comment: Fasting reference interval For someone without known diabetes, a glucose value between 100 and 125 mg/dL is consistent with prediabetes and should be confirmed with a follow-up test. BUN 25 7 - 25 mg/dL [facility] Creatinine 1.06 0.70 - 1.22 mg/dL [facility] eGFR 68 > OR = 60 mL/min/1.7 3m2 [facility] BUN/creat ratio SEE NOTE: 6 - 22 (calc) [facility] Comment: Not Reported: BUN and Creatinine are within reference range. Sodium 134(L) 135 - 146 mmol/L [facility] Potassium, pl 4.3 3.5 - 5.3 mmol/L [facility] Chloride 102 98 - 110 mmol/L [facility] CO2 26 20 - 32 mmol/L [facility] Calcium 9.3 8.6 - 10.3 mg/dL [facility] Blood 11/07/2024 9:56 AM CDT 11/07/2024 9:56 AM CDT Feliberto Ramey MD LAB BLOOD ORDERABLES [facility] [address] [place] [address] * Extended/Nursing Home Holter Patch (>48 hours up to 7 days) (10/31/2024 9:42 AM CDT) Anatomical Region Laterality Modality Electrocardiogra phy Narrative 11/30/2024 2:20 PM CDT [facility] Cardiology [facility] [facility] [address] [place] [address] Cardiology Electrophysiology Kimberli Hodges, MD Elmer Lopez, MD Ranjan Sauceda, MD Jet Leiva, MD Brandon Andino, MD Brady Mcgee, MD Arturo Leyva, MD Lawrence Boateng, MD Jose M Barker, MD Spring Bojorquez, DYLAN Casillas, MD Keyona Sierra, DYLAN Ramey, MD Shannan Valverde, [facility] Edson Young, MD Patrick Alexandra, MD Elmer Marquez, MD Salvador Lynn, MD Kiki David, BUSINESS CONSULTANT Brandon Robles, PA Mira Yates, BARB Ko, BUSINESS CONSULTANT SENIOR CARE HOLTER MONITOR Patient Name: Noé Davila : [...] 114 beats per minute Feliberto Ramey MD, [facility] Feliberto Ramey MD CV CARDIAC SERVICES DE OCEDURES Final Result from Last 3 Months Insurance MEDICARE MEDICARE MEDICARE HEALTHCARE HEALTHCARE Advance Directives For more information, please contact: [phone] Documents on File Type Date Recorded Patient Sweetbread Trimmer Expl anation ADVANCE DIRECTIVE 09/16/2021 9:00 AM Power of Certified Energy Manager-Medical ADVANCE DIRECTIVE 06/23/2021 4:03 PM Annabel r of Certified Energy Manager-Medical ADVANCE DIRECTIVE 03/05/2019 10:13 AM POWER OF CUT OFF [employer]-MEDICAL ADVANCE DIRECTIVE 03/04/2019 2:22 PM POWER OF CUT OFF [employer]-MEDICAL Care Teams Manufacturing Storeperson Relationship Specialty Start Date End Date Miller Mcmanus MD [address] [address] PCP - General Family Medicine 10/20/22
--- OUTSIDE RECORDS SUMMARY | 2025-01-22 14:01 | XMS_ITS | Clinical Summary ---
Author Organization [facility] Address [address] [place] [address] Care Team Providers Care Reset Merchandiser Name Role Phone Miller Mcmanus MD Primary Care Provider [phone] Allergies No known active allergies Medications aspirin [...] mouth daily 90 tablet 3 025 Active amLODIPine (NORVASC) 5 mg tablet Take 1 tablet every day by oral route. Active busPIRone (BUSPAR) 5 mg tablet Take 1 tablet every 12 hours by oral route as needed. Active cephalexin (KEFLEX) 500 mg capsule Active clopidogreL (PLAVIX) 75 mg tablet Take 1 tablet every day by oral route. Active fluticasone propionate (FLONASE) 50 mcg/actuation nasal spray Omro 1 spray twice a day by intranasal route. Active guaiFENesin ER (MUCINEX) 600 mg 12 hr tablet Take 1 tablet every 12 hours by oral route for 5 days. Active ipratropium (ATROVENT) 21 mcg (0.03 %) nasal spray Omro 2 sprays every 8 hours by intranasal route as needed. 025 Active mupirocin (BACTROBAN) 2 % ointment [...] (09/21/2020 11:17 AM CDT): Will fill out six horse hitch driver form as I don't feel patient [...] ordered Assessment & Plan (07/28/2020 9:42 AM HISTOLOGY AIDE): Likely related to uncontrolled allergies, though not [...] others. Assessment & Plan (05/06/2020 11:31 PM HISTOLOGY AIDE): Unsure exact cause. Depression vs nutrition vs dehydration vs possible parkinsons?? Consult ACO He is recently less than 2 years ago. No family or friend support. Probable poor nutrition. Difficulty getting him to take meds as intended. Frequent falls 05/06/2020 Assessment & Plan (11/03/2020 12:12 PM CDT): Pt refuses cane or walker for ambulation. Assessment & Plan (05/06/2020 11:40 PM HISTOLOGY AIDE): Refuses neuro or PT consult. I think he falls more from flexing his neck versus position changes, stumbling, or orthostasis. During the office visit that took at least 40 minutes, I spent over 50% of the time either counseling, educating, discussing plan of treatment, or answering questions today. Tremor, unspecified 05/06/2020 Assessment & Plan (05/06/2020 11:33 PM HISTOLOGY AIDE): Refuses consult with neuro or anything that might cost him money. Trial Requip (ropinirole) 0.25mg tid. Consult ACO Illiteracy 05/06/2020 Weight loss 01/26/2020 Assessment & Plan (07/28/2020 7:23 PM HISTOLOGY AIDE): Stable with Mirtazapine. Will increase the Mirtazapine to 30mg today. Assessment & Plan (05/06/2020 11:37 PM HISTOLOGY AIDE): Possible improvement with Mirtazapine (if he is [...] 8:55 AM CDT): Will refill Cardura to [facility] program. Hopefully this will allow patient to easy to access his medications. Will also order home health for social work and nursing services. With his blood pressure a elevated he likely needs a nurse to check this and assist him with medications. He is not cognitively aware enough to do this himself. Assessment & Plan (07/28/2020 7:26 PM HISTOLOGY AIDE): Will increase the doxazosin from 1 mg [...] readings. Assessment & Plan (07/28/2019 11:16 PM HISTOLOGY AIDE): New diagnosis. Start doxazosin (Cardura) for combined benefit of HTN and BPH. Call back with update in 2-3 weeks and blood pressure readings if possible. Chronic rhinitis 07/28/2019 Assessment & Plan (07/28/2019 11:20 PM HISTOLOGY AIDE): Start Flonase (fluticasone). Demonstrated use. Hearing difficulty of both ears 12/18/2018 Assessment & Plan (07/28/2020 7:45 PM HISTOLOGY AIDE): Tried to clean out ears today. Assessment & Plan (01/26/2020 11:12 AM CDT): Did not go to audiology due to cost. Assessment & Plan (12/18/2018 9:24 PM CDT): Audiology consult. 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 LDL is controlled well. Prediabetes 06/18/2017 Assessment & Plan (07/28/2020 7:21 PM HISTOLOGY AIDE): Will check new labs and make adjustments if needed. Assessment & Plan (01/26/2020 11:07 AM CDT): Will recheck fasting glucose today. Assessment & Plan (07/28/2019 11:16 PM HISTOLOGY AIDE): Get new labs Assessment & Plan (12/18/2018 9:23 PM CDT): Lower carb diet recommended. Assessment & Plan (06/18/2017 1:26 PM HISTOLOGY AIDE): Please cut down on sweets. Chronic idiopathic constipation 12/13/2016 Assessment & Plan (07/28/2020 7:21 PM HISTOLOGY AIDE): Chronic & stable on meds. Continue current [...] Lipitor. Assessment & Plan (07/28/2020 7:43 PM HISTOLOGY AIDE): Chronic & stable on meds. Continue current treatment. Assessment & Plan (01/26/2020 11:06 AM CDT): Stop rosuvastatin and start atorvastatin 20mg due to cost. Check labs today. Assessment & Plan (07/28/2019 11:20 PM HISTOLOGY AIDE): Get updated labs soon. Assessment & Plan (12/18/2018 9:23 PM CDT): Chronic & stable on meds. Continue current treatment. Assessment & Plan (06/18/2018 2:20 PM HISTOLOGY AIDE): Chronic & stable on meds. Continue current treatment. Assessment & Plan (03/29/2018 1:48 PM CDT): LDL was 69 on 12/10/2017. Continue Mevacor treatment Assessment & Plan (12/17/2017 9:41 PM CDT): Chronic & stable on meds. Continue current treatment. Assessment & Plan (06/18/2017 1:26 PM HISTOLOGY AIDE): Chronic & stable on meds. Continue current [...] pharmacy Assessment & Plan (07/28/2020 7:38 PM HISTOLOGY AIDE): Increase the Mirtazapine to 30mg daily and stop the Amitriptyline 10 mg daily, especially since he has constipation. Assessment & Plan (05/06/2020 11:37 PM HISTOLOGY AIDE): Patient symptomatic and not sure if he [...] treatment. Assessment & Plan (06/18/2018 2:20 PM HISTOLOGY AIDE): Chronic & stable on meds. Continue current treatment. Assessment & Plan (06/18/2017 1:26 PM HISTOLOGY AIDE): Chronic & stable on meds. Continue current [...] 02/15/2015 Assessment & Plan (07/28/2020 7:42 PM HISTOLOGY AIDE): Stable with out prescription medication. He feels [...] treatment. Assessment & Plan (06/18/2018 2:20 PM HISTOLOGY AIDE): Stable without regular use of inhalers. Assessment [...] medication(s) Assessment & Plan (07/28/2020 7:41 PM HISTOLOGY AIDE): Increase the doxazosin from 1 mg to 2 mg. Assessment & Plan (01/26/2020 11:09 AM CDT): Patient only took the doxazosin a couple times. Stop completely due to not taking it regularly and some lightheadedness when standing. Assessment & Plan (07/28/2019 11:16 PM HISTOLOGY AIDE): Start doxazosin (Cardura). Patient opted out of getting PSA testing at this time. Resolved Problems Problem Noted Date Diagnosed Date Resolved Date jail (current) use of anticoagulants 11/13/2023 07/15/2024 Late onset Alzheimer's disea se without behavioral disturbance 09/20/2020 09/20/2020 Bilateral impacted cerumen 07/28/2020 0 09/17/2020 Assessment & Plan (07/28/2020 7:22 PM HISTOLOGY AIDE): Ear irrigation today. Encounter for Medicare annual [...] 12/18/19 Assessment & Plan (06/18/2017 1:20 PM HISTOLOGY AIDE): These look like a type of squamous [...] draws. Assessment & Plan (06/18/2018 2:20 PM HISTOLOGY AIDE): Chronic & stable on meds. Continue current [...] INR Assessment & Plan (06/18/2017 1:27 PM HISTOLOGY AIDE): Chronic & stable on meds. Continue current [...] Description 01/09/2025 10:00 AM CDT Office Visit [facility] [address] [place] [address] [address] [place] [address] Ole Feldman MD Dizziness on standing (Primary Dx); Vertebral artery stenosis, unspecified laterality 01/08/2025 2:37 PM CDT - 01/08/2025 11:59 PM CDT Hospital Encounter [facility] [address] [place] [id number] Discharge Disposition: Discharge to home or self care 12/30/2024 4:24 PM CDT - 12/30/2024 11:59 PM CDT Hospital Encounter [facility] [address] [place] [address] Discharge Disposition: Discharge to home or self care 11/30/2024 Telephone [facility] [address] [place] [address] Feliberto Ramey MD 11/10/2024 Results Follow-Up [facility] [address] [place] [address] Feliberto Ramey MD Basic metabolic panel 10/31/2024 9:45 AM CDT Ancillary Procedure [facility] [address] [place] [address] [address] [place] [address] Permanent atrial fibrillation (HCC) 10/31/2024 9:00 AM CDT Office Visit [facility] [address] [place] [address] [address] [place] [address] Feliberto Ramey MD Permanent atrial [...] any clubs o r organizations such as sikh groups, unions, fraternal or athletic groups, or [...] on file Legal Sex Male 3:40 AM HISTOLOGY AIDE Gender Identity Not on file Sexual Orientation Not on file Obstetrics History Last Filed Vital Signs Vital Sign Reading Time Taken Comments Blood Pressure 176/72 01/09/2025 9:41 AM CDT Pulse 76 01/09/2025 9:41 AM CDT Temperature 36.9 C (98.4 F) 07/28/2020 8:55 AM HISTOLOGY AIDE Respiratory Rate 18 11/03/2020 9:16 AM CDT Oxygen Saturation 95% 01/09/2025 9:41 AM CDT Inhaled Oxygen Concentration - - Weight 68.6 kg (151 lb 4.8 oz) 01/09/2025 9:41 A M CDT Height 182.9 cm (6') 01/09/2025 9:41 AM CDT Body Mass Index 20.52 01/09/2025 9:41 AM CDT Plan of Treatment Health Maintenance Due Date Last Done Comments Hepatitis B Screening 11/22/1953 Zoster Vaccine (1 of 2) 11/22/1985 Well Visit 65+ 01/25/2021 01/26/2020, 12/18/2018 Depression Screening 11/03/2021 11/03/2020, 09/17/2020, 07/28/2020, Additional history exists Fall Risk Assessment 11/03/2021 11/03/2020, 09/17/2020, 07/28/2020, Additional history exists Influenza Vaccine (#1) 2025 2, 06/29/2021, 05/06/2020, Additional history exists DTaP/Tdap/Td Vaccine (3 - Td or Tdap) 01/16/2032 01/15/2022, 12/13/2019 Pneumococcal vaccine 65+ Completed 01/26/2020, 11/30 Procedures Procedure Name Priority Date/Time Associated Diagnosis Comments NEURO MR OUTSIDE REFERENCE Routine 01/08/2025 2:[address] OUTSIDE REFERENCE Routine 12/30/2024 4:24 PM CDT BASIC METABOLIC PANEL Routine 11/07/2024 9:56 AM CDT Permanent atrial fibrillation (HCC) EXTENDED/DETENTION HOLTER PATCH (>48 HOURS UP TO 7 DAYS) Routine 10/31/2024 9:42 AM CDT Permanent atrial fibrillation (HCC) from Last 3 Months Results * Neuro MR Outside Reference (01/08/2025 2:37 PM CDT) Impressions [facility] - 01/08/2025 2:37 PM CDT These images are for Reference purposes only and have not been reviewed by [facility]. There will be no report generated by a [facility] Radiologist. Narrative [facility] - 01/08/2025 2:37 PM CDT EXAMINATION: Images For Reference Purposes Only Ole Feldman MD [facility] MRI PROCEDURES Final Resul t Performing Organization Address [facility] Co de Phone Number [email or web address] * Neuro CT Outside Reference (12/30/2024 4:24 PM CDT) Impressions [facility] - 12/30/2024 4:24 PM CDT These images are for Reference purposes only and have not been reviewed by [facility]. There will be no report generated by a [facility] Radiologist. Narrative [facility] - 12/30/2024 4:24 PM CDT EXAMINATION: Images For Reference Purposes Only Ole Feldman MD IM CT PROCEDURES Final Result Performing Organization Address City/[facility] Co de Phone Number [email or web address] * (ABNORMAL) Basic metabolic panel (11/07/2024 9:56 AM CDT) Glucose 108(H) 65 - 99 mg/dL [facility] Comment: Fasting reference interval For someone without known diabetes, a glucose value between 100 and 125 mg/dL is consistent with prediabetes and should be confirmed with a follow-up test. BUN 25 7 - 25 mg/dL [facility] Creatinine 1.06 0.70 - 1.22 mg/dL [facility] eGFR 68 > OR = 60 mL/min/1.7 3m2 [facility] [employer] BUN/creat ratio SEE NOTE: 6 - 22 (calc) [facility] [employer] Comment: Not Reported: BUN and Creatinine are within reference range. Sodium 134(L) 135 - 146 mmol/L [facility] Potassium, pl 4.3 3.5 - 5.3 mmol/L [facility] Chloride 102 98 - 110 mmol/L [facility] CO2 26 20 - 32 mmol/L [facility] Calcium 9.3 8.6 - 10.3 mg/dL [facility] Blood 11/07/2024 9:56 AM CDT 11/07/2024 9:56 AM CDT Feliberto Ramey MD LAB BLOOD ORDERABLES F inal Result [facility] [address] [place] [address] * Extended/Fdc Holter Patch (>48 hours up to 7 days) (10/31/2024 9:42 AM CDT) Anatomical Region Laterality Modality Electrocardiogra phy Narrative 11/30/2024 2:20 PM CDT [facility] [address] [place] [address] Cardiology Electrophysiology MD Elmer Pacheco MD Stuart Higano, MD Jet Leiva, MD Brandon Andino, MD Brady Mcgee, MD Arturo Leyva, MD Lawrence Boateng, MD Jose M Barker, MD Spring Bojorquez, DYLAN Casillas, MD Keyona Sierra, DYLAN Ramey, MD Shannan Valverde, MANAGER OF SECURITY Edson Young, MD Patrick Alexandra, MD Elmer Marquez, MD Salvador Lynn, MD Kiki David, LITHOGRAPHIC PRESS OPERATOR Brandon Robles, BARB Yates, BARB Ko, LITHOGRAPHIC PRESS OPERATOR [facility] HOLTER MONITOR Patient Name: Noé Davila : [...] 114 beats per minute Feliberto Ramey MD, [facility] Feliberto Ramey MD CV CARDIAC SERVICES HI OCEDURES Final Result from Last 3 Months Insurance MEDICARE MEDICARE MEDICARE [facility] [place] [id number] Advance Directives For more information, please contact: [phone] Documents on File Type Date Recorded Patient Counter Clerk [employer] ADVANCE DIRECTIVE 09/16/2021 9:00 AM Power of Vp Ancillary-Medical ADVANCE DIRECTIVE 06/23/2021 4:03 PM Annabel r of Vp Ancillary-Medical ADVANCE DIRECTIVE 03/05/2019 10:13 AM POWER OF HEAD WAITER/WAITRESS-MEDICAL ADVANCE DIRECTIVE 03/04/2019 2:22 PM POWER OF HEAD WAITER/WAITRESS-MEDICAL Care Teams Reset Merchandiser Relationship Specialty Start Date End Date Miller Mcmanus MD [address] [address] PCP - General Family Medicine 10/20/22
--- OUTSIDE RECORDS SUMMARY | 2025-01-22 14:01 | XMS_ITS ---
Author Name Auto Generated, Auto Generated Organization [facility] Address [address] [place] [address] Phone [phone] Care Team Providers Care Dub Room Engineer Name Role Phone Veronica Aguero Unavailable [phone] IsraelSosa phipps Unavailable Functional Status No Results Mental Status No Results Allergies and Intolerances Name Onset Date Reaction Severity No Known Allergies (Allergy) SunDec 24 15:25:00 EDT 2024 Encounters Program Name Primary Diagnosis Admission Date/Time Dis charge Date/Time [facility] SunDec 24 11:02:00 EDT 2024Jan 14 07:30:00 EDT 2024 Immunizations Name Dates Status TST-PPD intradermal Debra Dec 25 01:00:00 EDT 2024 Completed TST-PPD intradermal SunDec 27 01:00:00 EDT 2024 Completed Medications Medication Directions Start Date End Date busPIRone 5 mg tablet 1 tablet TABLET Or al PRN Every 12 Hours for 90 Days Indication: Anxiety SunDec 29 13:54:00 EDT 2024Jan 14 01:00:00 EDT 2024 guaiFENesin ER 600 mg tablet, extended release 12 hr 1 TABLET, EXTENDED RELEASE 12 HR Oral 2 Times Daily for 5 Days Indication: cough SunDec 26 01:00:00 EDT 2024Dec 31 00:59:00 EDT 2024 TubersoL 5 tub. unit/0.1 mL intradermal injection solution 0.1 Milliliter VIAL (ML) Intradermal 1 Time Daily for 1 Day Indication: rule outTB 1 Step PPD- Read between 48 and 72 hours Debra Dec 25 13:00:00 EDT 2024Dec 26 12:59:00 EDT 2024 TubersoL 5 tub. unit/0.1 mL intradermal injection solution 1 Application VIAL (ML) Other 1 Time Daily for 1 Day Indication: rule out tb Read results between 48-72 hours after 1st and 2nd (1 week apart). Any reading of 10mm or greater results in a positive test, an x-ray will need to be ordered as a follow up. [facility] Dec 27 13:00:00 EDT 2024 [place] Dec 28 12:59:00 EDT 2024 cephALEXin 500 mg capsule 1 capsule CAPS ULE Oral 2 Times Daily for 4 Days Indication: UTI SunDec 24 16:00:00 EDT 2024Dec 28 15:59:00 EDT 2024 clopidogreL 75 mg tablet 1 tablet TABLET Oral 1 Time Daily Indication: Thinner SunDec 24 16:00:00 EDT 2024Dec 24 19:14:00 EDT 2024 losartan 100 mg tablet 1 tablet TABLET O ral 1 Time Daily Indication: HTN SunDec 24 16:00:00 EDT 2024Dec 24 16:43:00 EDT 2024 amLODIPine 5 mg tablet 1 tablet TABLET O ral 1 Time Daily Indication: HTN SunDec 24 16:00:00 EDT 2024Jan 14 01:00:00 EDT 2024 aspirin 81 mg tablet 1 tablet TABLET Ora l 1 Time Daily Indication: Thinner SunDec 24 16:00:00 EDT 2024Jan 14 01:00:00 EDT 2024 atorvastatin 20 mg tablet 1 tablet TABLE T Oral 1 Time Daily Indication: Hyperlipidemia SunDec 24 16:00:00 EDT 2024Jan 14 01:00:00 EDT 2024 polyethylene glycoL 3350 17 gram/dose oral powder 1 dose POWDER (GRAM) Oral 1 Time Daily Indication: Constipation SunDec 24 16:00:00 EDT 2024Jan 14 01:00:00 EDT 2024 doxazosin 1 mg tablet 1 tablet TABLET Or al 1 Time Daily Indication: BPH/HTN SunDec 24 16:00:00 EDT 2024Dec 24 19:20:00 EDT 2024 fluticasone propionate 50 mcg/actuation nasal spray,suspension 1 spray SPRAY, SUSPENSION Intranasal 2 Times Daily Indication: Allergies SunDec 24 16:00:00 EDT 2024Jan 14 01:00:00 EDT 2024 Ventolin HFA 90 mcg/actuation aerosol inhaler 1-2 HFA AEROSOL WITH ADAPTER (GRAM) Inhalation PRN Every 4 Hours Indication: SOB/wheezing SunDec 24 16:00:00 EDT 2024Jan 14 01:00:00 EDT 2024 busPIRone 5 mg tablet 1 tablet TABLET Or al PRN Every 12 Hours Indication: anxierty SunDec 24 16:00:00 EDT 2024Dec 24 19:22:00 EDT 2024 mupirocin 2 % topical ointment as directed OINTMENT (GRAM) Topical PRN Every 12 Hours Indication: Wound care SunDec 24 16:00:00 EDT 2024Jan 14 01:00:00 EDT 2024 ipratropium bromide 21 mcg (0.03 %) nasal spray 2 sprays AEROSOL, SPRAY (ML) Intranasal 3 Times Daily Indication: allergies SunDec 24 16:00:00 EDT 2024Dec 24 16:43:00 EDT 2024 ipratropium bromide 21 mcg (0.03 %) nasal spray 2 sprays AEROSOL, SPRAY (ML) Intranasal PRN Every 8 Hours Indication: allergies SunDec 24 16:42:00 EDT 2024Jan 14 01:00:00 EDT 2024 losartan 50 mg tablet 1 tablet TABLET Or al 1 Time Daily Indication: HTN SunDec 24 16:00:00 EDT 2024Dec 24 19:24:00 EDT 2024 clopidogreL 75 mg tablet 1 tablet TABLET Oral 1 Time Daily Indication: A-fib SunDec 24 19:13:00 EDT 2024Jan 09 13:49:00 EDT 2024 doxazosin 1 mg tablet 1 tablet TABLET Or al 1 Time Daily Indication: HTN SunDec 24 19:19:00 EDT 2024Jan 01 12:02:00 EDT 2024 busPIRone 5 mg tablet 1 tablet TABLET Or al PRN Every 12 Hours Indication: Anxiety SunDec 24 19:21:00 EDT 2024Dec 29 13:55:00 EDT 2024 losartan 50 mg tablet 1 tablet TABLET Or al 1 Time Daily Indication: HTN SunDec 24 16:00:00 EDT 2024Jan 14 01:00:00 EDT 2024 Problems Active Concerns * Peripheral vascular disease, unspecified* Code: * Start Date: SunDec 24 00:00:00 EDT 2024 * End Date: * Text: * Chronic obstructive pulmonary disease, unspecified* Code: * Start Date: SunDec 24 00:00:00 EDT 2024 * End Date: * Text: * Benign prostatic hyperplasia without lower urinary tract symptoms* Code: * Start Date: SunDec 24 00:00:00 EDT 2024 * End Date: * Text: * Depression, unspecified* Code: * Start Date: SunDec 24 00:00:00 EDT 2024 * End Date: SunDec 25 00:00:00 EDT 2024 * Text: * Unspecified atrial fibrillation* Code: * Start Date: SunDec 24 00:00:00 EDT 2024 * End Date: SunDec 25 00:00:00 EDT 2024 * Text: * Anxiety disorder, unspecified* Code: * Start Date: SunDec 24 00:00:00 EDT 2024 * End Date: SunDec 25 00:00:00 EDT 2024 * Text: * Anemia, unspecified* Code: * Start Date: SunDec 24 00:00:00 EDT 2024 * End Date: * Text: * Constipation, unspecified* Code: * Start Date: SunDec 24 00:00:00 EDT 2024 * End Date: * Text: * Hyperlipidemia, unspecified* Code: * Start Date: SunDec 24 00:00:00 EDT 2024 * End Date: SunDec 25 00:00:00 EDT 2024 * Text: * Unspecified dementia, unspecified severity, with mood disturbance* Code: * Start Date: SunDec 24 00:00:00 EDT 2024 * End Date: * Text: * Personal history of nicotine dependence* Code: * Start Date: SunDec 24 00:00:00 EDT 2024 * End Date: * Text: * Personal history of other malignant neoplasm of skin* Code: * Start Date: SunDec 24 00:00:00 EDT 2024 * End Date: * Text: * Spondylosis without myelopathy or radiculopathy, lumbar region* Code: * Start Date: SunDec 24 00:00:00 EDT 2024 * End Date: SunDec 29 00:00:00 EDT 2024 * Text: * Other seasonal allergic rhinitis* Code: * Start Date: SunDec 24 00:00:00 EDT 2024 * End Date: * Text: * Essential (primary) hypertension* Code: * Start Date: SunDec 24 00:00:00 EDT 2024 * End Date: * Text: * Presence of other vascular implants and grafts* Code: * Start Date: SunDec 24 00:00:00 EDT 2024 * End Date: * Text: * Unspecified hearing loss, bilateral* Code: * Start Date: SunDec 24 00:00:00 EDT 2024 * End Date: * Text: * Other symptoms and signs involving the nervous system* Code: * Start Date: SunDec 24 00:00:00 EDT 2024 * End Date: * Text: * Personal history of transient ischemic attack (TIA), and cerebral infarction without residual deficits* Code: * Start Date: SunDec 24 00:00:00 EDT 2024 * End Date: * Text: * Other sequelae of cerebral infarction* Code: * Start Date: SunDec 24 00:00:00 EDT 2024 * End Date: * Text: * Dizziness and giddiness* Code: * Start Date: SunDec 24 00:00:00 EDT 2024 * End Date: * Text: * Urinary tract infection, site not specified* Code: * Start Date: SunDec 24 00:00:00 EDT 2024 * End Date: * Text: * halfway (current) use of aspirin* Code: * Start Date: SunDec 24 00:00:00 EDT 2024 * End Date: * Text: * halfway (current) use of antithrombotics/antiplatelets* Code: * Start Date: SunDec 24 00:00:00 EDT 2024 * End Date: * Text: * Chronic atrial fibrillation, unspecified* Code: * Start Date: SunDec 24 00:00:00 EDT 2024 * End Date: * Text: * Mixed hyperlipidemia* Code: * Start Date: SunDec 24 00:00:00 EDT 2024 * End Date: * Text: * Hypo-osmolality and hyponatremia* Code: * Start Date: SunDec 24 00:00:00 EDT 2024 * End Date: * Text: * Generalized anxiety disorder* Code: * Start Date: SunDec 24 00:00:00 EDT 2024 * End Date: * Text: * Major depressive disorder, recurrent, unspecified* Code: * Start Date: SunDec 24 00:00:00 EDT 2024 * End Date: * Text: * Other spondylosis with radiculopathy, lumbosacral region* Code: * Start Date: SunDec 24 00:00:00 EDT 2024 * End Date: * Text: * Occlusion and stenosis of right vertebral artery* Code: * Start Date: SunDec 24 00:00:00 EDT 2024 * End Date: * Text: * [id number] Noé receives a therapeutic diet. (12)* Code: * Start Date: SunJan 05 00:00:00 EDT 2024 * End Date: * Text: [id number] Noé receives a therapeutic diet. (12) * ESTEPHANIESocial Chelsie Umanzor's wishes will be followed (Advanced Directive/Code Status).* Code: * Start Date: SunJan 06 00:00:00 EDT 2024 * End Date: * Text: ESTEPHANIESocial Chelsie Umanzor's wishes will be followed (Advanced Directive/Code Status). * ESTEPHANIESocial Chelsie Umanzor will be involved in goal development to the best of his or her ability.* Code: * Start Date: SunJan 06 00:00:00 EDT 2024 * End Date: * Text: ESTEPHANIESocial Chelsie Umanzor will be involved in goal development to the best of his or her ability. * [employer]EPHANIESocial Chelsie Umanzor has impaired cognition.* Code: * Start Date: SunJan 06 00:00:00 EDT 2024 * End Date: * Text: ESTEPHANIESocial Chelsie Umanzor has impaired cognition. * ESTEPHANIESocial Chelsie Umanzor has family/friends who are supportive.* Code: * Start Date: SunJan 06 00:00:00 EDT 2024 * End Date: * Text: ESTEPHANIESocial Chelsie Umanzor has family/friends who are supportive. * ESTEPHANIESocial Chelsie Umanzor's mobility level is different than prior level due to current medical condition.* Code: * Start Date: SunJan 06 00:00:00 EDT 2024 * End Date: * Text: ESTEPHANIESocial Chelsie Umanzor's mobility level is different than prior level due to current medical condition. * ESTEPHANIESocial Chelsie Umanzor has a diagnosis of dementia.* Code: * Start Date: SunJan 06 00:00:00 EDT 2024 * End Date: * Text: ESTEPHANIESocial Chelsie Umanzor has a diagnosis of dementia. * LSS_Social Services- Noé will be involved in discharge planning.* Code: * Start Date: SunJan 06 00:00:00 EDT 2024 * End Date: * Text: [facility]_Social Services- Noé will be involved in discharge planning. * LSS_COPD - Noé has diagnosis of COPD.* Code: * Start Date: SunJan 06 00:00:00 EDT 2024 * End Date: * Text: LSS_COPD - Noé has diagnosis of COPD. * LSS_Falls - Noé is at risk for falls/injury as evidenced by: history of falls, cognitive status/behavior, vision status, continence, mobility, balance.* Code: * Start Date: SunJan 06 00:00:00 EDT 2024 * End Date: * Text: LSS_Falls - Noé is at risk for falls/injury as evidenced by: history of falls, cognitive status/behavior, vision status, continence, mobility, balance. * LSS_Pain - Noé is experiencing pain or is at high risk for pain.* Code: * Start Date: SunJan 06 00:00:00 EDT 2024 * End Date: * Text: LSS_Pain - Noé is experiencing pain or is at high risk for pain. * LSS_Skin Integrity - (Potential Alteration of)- Noé is at risk for developing impaired skin integrity.* Code: * Start Date: SunJan 06 00:00:00 EDT 2024 * End Date: * Text: LSS_Skin Integrity - (Potential Alteration of)- Noé is at risk for developing impaired skin integrity. * LSS_ADLs - Noé has ADL selfcare deficit related to decreased mobility and muscle weakness* Code: * Start Date: SunJan 06 00:00:00 EDT 2024 * End Date: * Text: LSS_ADLs - Noé has ADL selfcare deficit related to decreased mobility and muscle weakness Vital Signs Vital Sign Measurement Date Systolic Blood Pressure 183.00 mm[Hg] SunJan 14 09:22:45 EDT 2024 Diastolic Blood Pressure 87.00 mm[Hg] SunJan 14:22:45 EDT 2024 Systolic Blood Pressure 183.00 mm[Hg] SunJan 14 09:22:45 EDT 2024 Diastolic Blood Pressure 87.00 mm[Hg] SunJan 14 09:22:45 EDT 2024 Systolic Blood Pressure 152.00 mm[Hg] SunJan 13 22:49:14 EDT 2024 Diastolic Blood Pressure 68.00 mm[Hg] SunJan 13 22:49:14 EDT 2024 Pulse Oximetry 97.00 % SunJan 13 22:49 :14 EDT 2024 Heart Rate 75.00 /min SunJan 13 22:49 :14 EDT 2024 Body temperature 98.20 [degF] SunJan 13 22:4 9:14 EDT 2024 Respiratory rate 18.00 /min SunJan 13 22:4 9:14 EDT 2024 Body weight 152.60 [lb_av] SunJan 13 16:25 :00 EDT 2024 Systolic Blood Pressure 161.00 mm[Hg] SunJan 13 11:49:23 ED2024 Diastolic Blood Pressure 67.00 mm[Hg] SunJan 13 11:49:23 EDT 2024 Pulse Oximetry 96.00 % SunJan 13 11:49 :23 EDT 2024 Heart Rate 65.00 /min SunJan 13 11:49 :23 EDT 2024 Body temperature 97.40 [degF] SunJan 13 11:4 9:23 EDT 2024 Respiratory rate 20.00 /min SunJan 13 11:4 9:23 EDT 2024 Systolic Blood Pressure 161.00 mm[Hg] SunJan 13 08:38:41 EDT 2024 Diastolic Blood Pressure 67.00 mm[Hg] SunJan 13 08:38:41 EDT 2024 Systolic Blood Pressure 161.00 mm[Hg] SunJan 13 08:38:41 EDT 2024 Diastolic Blood Pressure 67.00 mm[Hg] SunJan 13 08:38:41 EDT 2024 Systolic Blood Pressure 134.00 mm[Hg] SunJan 12 21:45:11 EDT 2024 Diastolic Blood Pressure 74.00 mm[Hg] SunJan 12 21:45:11 EDT 2024 Pulse Oximetry 95.00 % SunJan 12 21:45 :11 EDT 2024 Heart Rate 82.00 /min SunJan 12 21:45 :11 EDT 2024 Body temperature 98.30 [degF] SunJan 12 21:4 5:11 EDT 2024 Respiratory rate 20.00 /min SunJan 12 21:4 5:11 EDT 2025 Body weight 150.20 [lb_av] SunJan 12 14:31 :17 EDT 5 Systolic Blood Pressure 154.00 mm[Hg] SunJan 12 09:14:03 EDT 2024 Diastolic Blood Pressure 76.00 mm[Hg] SunJan 12 09:14:03 EDT 5 Systolic Blood Pressure 154.00 mm[Hg] SunJan 12 09:14:03 EDT 2024 Diastolic Blood Pressure 76.00 mm[Hg] SunJan 12 09:14:03 EDT 2024 Systolic Blood Pressure 154.00 mm[Hg] SunJan 12 09:14:03 EDT 2024 Diastolic Blood Pressure 76.00 mm[Hg] SunJan 12 09:14:03 EDT 2024 Pulse Oximetry 93.00 % SunJan 12 09:14 :03 EDT 2024 Heart Rate 68.00 /min SunJan 12 09:14 :03 EDT 2024 Body temperature 97.60 [degF] SunJan 12 09:1 4:03 EDT 2024 Respiratory rate 18.00 /min SunJan 12 09:1 4:03 EDT 2024 Systolic Blood Pressure 155.00 mm[Hg] SunJan 12 00:33:38 EDT 2024 Diastolic Blood Pressure 72.00 mm[Hg] SunJan 12 00:33:38 EDT 2024 Pulse Oximetry 98.00 % SunJan 12 00:33 :38 EDT 2024 Heart Rate 79.00 /min SunJan 12 00:33 :38 EDT 2024 Body temperature 97.60 [degF] SunJan 12 00:3 3:38 EDT 2024 Respiratory rate 20.00 /min SunJan 12 00:3 3:38 EDT 2024 Body weight 151.20 [lb_av] SunJan 11 18:54 :31 EDT 2024 Systolic Blood Pressure 117.00 mm[Hg] SunJan 11 09:26:34 EDT 2024 Diastolic Blood Pressure 73.00 mm[Hg] SunJan 11 09:26:34 EDT 2024 Systolic Blood Pressure 117.00 mm[Hg] SunJan 11 09:26:34 EDT 2024 Diastolic Blood Pressure 73.00 mm[Hg] SunJan 11 09:26:34 EDT 2024 Systolic Blood Pressure 117.00 mm[Hg] SunJan 11 09:26:34 EDT 2024 Diastolic Blood Pressure 73.00 mm[Hg] SunJan 11 09:26:34 EDT 2024 Pulse Oximetry 94.00 % SunJan 11 09:26 :34 EDT 2024 Heart Rate 73.00 /min SunJan 11 09:26 :34 EDT 2024 Body temperature 97.30 [degF] [place] Jan 11 09:2 6:34 EDT 2024 Respiratory rate 20.00 /min [place] Jan 11 09:2 6:34 EDT 2024 Systolic Blood Pressure 146.00 mm[Hg] [facility] Jan 10 21:08:48 EDT 2024 Diastolic Blood Pressure 68.00 mm[Hg] [facility] Jan 10 21:08:48 EDT 2024 Pulse Oximetry 95.00 % [facility] Jan 10 21:08 :48 EDT 2024 Heart Rate 90.00 /min [facility] Jan 10 21:08 :48 EDT 2024 Body temperature 97.70 [degF] [facility] Jan 10 21:0 8:48 EDT 2024 Respiratory rate 20.00 /min [facility] Jan 10 21:0 8:48 EDT 2024 Systolic Blood Pressure 127.00 mm[Hg] [facility] Jan 10 09:55:16 EDT 2024 Diastolic Blood Pressure 81.00 mm[Hg] [facility] Jan 10 09:55:16 EDT 2024 Pulse Oximetry 96.00 % [facility] Jan 10 09:55 :16 EDT 2024 Heart Rate 69.00 /min [facility] Jan 10 09:55 :16 EDT 2024 Body temperature 97.60 [degF] [facility] Jan 10 09:5 5:16 EDT 2024 Respiratory rate 20.00 /min [facility] Jan 10 09:5 5:16 EDT 2024 Systolic Blood Pressure 127.00 mm[Hg] [facility] Jan 10 09:07:47 EDT 2024 Diastolic Blood Pressure 81.00 mm[Hg] [facility] Jan 10 09:07:47 EDT 2024 Systolic Blood Pressure 127.00 mm[Hg] [facility] Jan 10 09:07:47 EDT 2024 Diastolic Blood Pressure 81.00 mm[Hg] SunJan 10 09:07:47 EDT 2024 Systolic Blood Pressure 131.00 mm[Hg] SunJan 09 23:23:26 EDT 2024 Diastolic Blood Pressure 63.00 mm[Hg] SunJan 09 23:23:26 EDT 2024 Pulse Oximetry 96.00 % SunJan 09 23:23 :26 EDT 2024 Heart Rate 70.00 /min Fri [place] 11 23:23 :26 EDT 2024 Body temperature 97.70 [degF] SunJan 09 23:2 3:26 EDT 2024 Respiratory rate 20.00 /min SunJan 09 23:2 3:26 EDT 2024 Body weight 150.90 [lb_av] SunJan 09 12:05 :29 EDT 2024 Systolic Blood Pressure 171.00 mm[Hg] SunJan 09 10:57:01 EDT 2024 Diastolic Blood Pressure 82.00 mm[Hg] SunJan 09 10:57:01 EDT 2024 Pulse Oximetry 97.00 % SunJan 09 10:57 :01 EDT 2024 Heart Rate 73.00 /min SunJan 09 10:57 :01 EDT 2024 Body temperature 98.50 [degF] SunJan 09 10:5 7:01 EDT 2024 Respiratory rate 18.00 /min SunJan 09 10:5 7:01 EDT 2024 Systolic Blood Pressure 171.00 mm[Hg] SunJan 09 08:32:40 EDT 2024 Diastolic Blood Pressure 82.00 mm[Hg] SunJan 09 08:32:40 EDT 2024 Systolic Blood Pressure 171.00 mm[Hg] SunJan 09 08:32:40 EDT 2024 Diastolic Blood Pressure 82.00 mm[Hg] SunJan 09 08:32:40 EDT 2024 Systolic Blood Pressure 156.00 mm[Hg] SunJan 09 00:11:44 EDT 2024 Diastolic Blood Pressure 67.00 mm[Hg] SunJan 09 00:11:44 EDT 2024 Pulse Oximetry 94.00 % SunJan 09 00:11 :44 EDT 2024 Heart Rate 80.00 /min SunJan 09 00:11 :44 EDT 2024 Body temperature 97.50 [degF] SunJan 09 00:1 1:44 EDT 2024 Respiratory rate 18.00 /min SunJan 09 00:1 1:44 EDT 2024 Body weight 151.20 [lb_av] SunJan 08 14:22 :33 EDT 2024 Systolic Blood Pressure 152.00 mm[Hg] SunJan 08 09:54:54 EDT 2024 Diastolic Blood Pressure 72.00 mm[Hg] SunJan 08 09:54:54 EDT 2024 Pulse Oximetry 95.00 % SunJan 08 09:54 :54 EDT 2024 Body temperature 97.70 [degF] [facility] Jan 08 09:5 4:54 EDT 2024 Respiratory rate 18.00 /min [place] Jan 08 09:5 4:54 EDT 2024 Heart Rate 67.00 /min [facility] Jan 08 09:54 :54 EDT 2024 Systolic Blood Pressure 152.00 mm[Hg] [place] Jan 08 08:58:08 EDT 2024 Diastolic Blood Pressure 72.00 mm[Hg] [place] Jan 08 08:58:08 EDT 2024 Systolic Blood Pressure 152.00 mm[Hg] [place] Jan 08 08:58:08 EDT 2024 Diastolic Blood Pressure 72.00 mm[Hg] [facility] Jan 08 08:58:08 EDT 2024 Systolic Blood Pressure 152.00 mm[Hg] [facility] Jan 08 07:47:05 EDT 2024 Diastolic Blood Pressure 72.00 mm[Hg] [facility] Jan 08 07:47:05 EDT 2024 Pulse Oximetry 95.00 % [facility] Jan 08 07:47 :05 EDT 2024 Heart Rate 67.00 /min [facility] Jan 08 07:47 :05 EDT 2024 Body temperature 97.70 [degF] [facility] Jan 08 07:4 7:05 EDT 2024 Respiratory rate 18.00 /min [facility] Jan 08 07:4 7:05 EDT 2024 Systolic Blood Pressure 151.00 mm[Hg] SunJan 07 21:06:06 EDT 2024 Diastolic Blood Pressure 68.00 mm[Hg] SunJan 07 21:06:06 EDT 2024 Pulse Oximetry 96.00 % SunJan 07 21:06 :06 EDT 2024 Heart Rate 70.00 /min SunJan 07 21:06 :06 EDT 2024 Body temperature 97.50 [degF] SunJan 07 21:0 6:06 EDT 2024 Respiratory rate 20.00 /min SunJan 07 21:0 6:06 EDT 2024 Body weight 150.00 [lb_av] SunJan 07 12:37 :42 EDT 2024 Systolic Blood Pressure 166.00 mm[Hg] SunJan 07 09:30:36 EDT 2024 Diastolic Blood Pressure 84.00 mm[Hg] SunJan 07 09:30:36 EDT 2024 Systolic Blood Pressure 166.00 mm[Hg] SunJan 07 09:30:36 EDT 2024 Diastolic Blood Pressure 84.00 mm[Hg] SunJan 07 09:30:36 EDT 2024 Systolic Blood Pressure 166.00 mm[Hg] SunJan 07 09:23:25 EDT 2024 Diastolic Blood Pressure 84.00 mm[Hg] SunJan 07 09:23:25 EDT 2024 Pulse Oximetry 95.00 % SunJan 07 09:23 :25 EDT 2024 Heart Rate 79.00 /min SunJan 07 09:23 :25 EDT 2024 Body temperature 97.90 [degF] SunJan 07 09:2 3:25 EDT 202 Respiratory rate 18.00 /min SunJan 07 09:2 3:25 EDT 2024 Systolic Blood Pressure 156.00 mm[Hg] SunJan 06 22:05:00 EDT 2024 Diastolic Blood Pressure 69.00 mm[Hg] SunJan 06 22:05:00 EDT 2024 Pulse Oximetry 95.00 % SunJan 06 22:05 :00 EDT 2024 Heart Rate 78.00 /min SunJan 06 22:05 :00 EDT 2024 Body temperature 98.00 [degF] SunJan 06 22:0 5:00 EDT 2024 Respiratory rate 18.00 /min SunJan 06 22:0 5:00 EDT 2024 Body weight 149.80 [lb_av] SunJan 06 18:37 :25 EDT 2024 Systolic Blood Pressure 173.00 mm[Hg] SunJan 06 11:11:56 EDT 2024 Diastolic Blood Pressure 82.00 mm[Hg] SunJan 06 11:11:56 EDT 2024 Pulse Oximetry 97.00 % SunJan 06 11:11 :56 EDT 2024 Heart Rate 80.00 /min SunJan 06 11:11 :56 EDT 2024 Body temperature 97.70 [degF] SunJan 06 11:1 1:56 EDT 2024 Respiratory rate 18.00 /min SunJan 06 11:1 1:56 EDT 2024 Systolic Blood Pressure 173.00 mm[Hg] SunJan 06 09:49:25 EDT 2024 Diastolic Blood Pressure 82.00 mm[Hg] SunJan 06 09:49:25 EDT 2024 Systolic Blood Pressure 173.00 mm[Hg] SunJan 06 09:49:25 EDT 2024 Diastolic Blood Pressure 82.00 mm[Hg] SunJan 06 09:49:25 EDT 2024 Systolic Blood Pressure 168.00 mm[Hg] SunJan 06 00:47:17 EDT 2024 Diastolic Blood Pressure 78.00 mm[Hg] SunJan 06 00:47:17 EDT 2024 Pulse Oximetry 94.00 % SunJan 06 00:47 :17 EDT 2024 Heart Rate 82.00 /min SunJan 06 00:47 :17 EDT 2024 Body temperature 97.70 [degF] SunJan 06 00:4 7:17 EDT 2024 Respiratory rate 18.00 /min SunJan 06 00:4 7:17 EDT 2024 Body weight 150.80 [lb_av] SunJan 05 11:28 :39 EDT 2024 Heart Rate 73.00 /min SunJan 05 09:55 :09 EDT 2024 Systolic Blood Pressure 149.00 mm[Hg] SunJan 05 09:54:23 EDT 2024 Diastolic Blood Pressure 69.00 mm[Hg] SunJan 05 09:54:23 EDT 2024 Systolic Blood Pressure 149.00 mm[Hg] SunJan 05 09:54:23 EDT 2024 Diastolic Blood Pressure 69.00 mm[Hg] SunJan 05 09:54:23 EDT 2024 Systolic Blood Pressure 149.00 mm[Hg] SunJan 05 09:54:23 EDT 2024 Diastolic Blood Pressure 69.00 mm[Hg] SunJan 05 09:54:23 EDT 2024 Pulse Oximetry 95.00 % SunJan 05 09:54 :23 EDT 2024 Body temperature 98.10 [degF] SunJan 05 09:5 4:23 EDT 2024 Respiratory rate 20.00 /min SunJan 05 09:5 4:23 EDT 2024 Systolic Blood Pressure 133.00 mm[Hg] SunJan 04 22:57:57 EDT 2024 Diastolic Blood Pressure 65.00 mm[Hg] SunJan 04 22:57:57 EDT 2024 Pulse Oximetry 96.00 % SunJan 04 22:57 :57 EDT 2024 Body temperature 98.40 [degF] SunJan 04 22:5 7:57 EDT 2024 Respiratory rate 71.00 /min SunJan 04 22:5 7:57 EDT 2024 Body weight 150.60 [lb_av] SunJan 04 14:44 :41 EDT 2024 Systolic Blood Pressure 138.00 mm[Hg] [place] Jan 04 10:59:36 EDT 2024 Diastolic Blood Pressure 71.00 mm[Hg] [place] Jan 04 10:59:36 EDT 2024 Pulse Oximetry 96.00 % [place] Jan 04 10:59 :36 EDT 2024 Body temperature 98.00 [degF] [place] Jan 04 10:5 9:36 EDT 2024 Respiratory rate 16.00 /min [place] Jan 04 10:5 9:36 EDT 2024 Systolic Blood Pressure 138.00 mm[Hg] [place] Jan 04 08:52:32 EDT 2024 Diastolic Blood Pressure 71.00 mm[Hg] [place] Jan 04 08:52:32 EDT 2024 Systolic Blood Pressure 138.00 mm[Hg] [place] Jan 04 08:52:32 EDT 2024 Diastolic Blood Pressure 71.00 mm[Hg] [place] Jan 04 08:52:32 EDT 2024 Systolic Blood Pressure 144.00 mm[Hg] [facility] Jan 03 22:43:26 EDT 2024 Diastolic Blood Pressure 70.00 mm[Hg] [facility] Jan 03 22:43:26 EDT 2024 Pulse Oximetry 95.00 % [facility] Jan 03 22:43 :26 EDT 2024 Body temperature 98.20 [degF] [facility] Jan 03 22:4 3:26 EDT 2024 Respiratory rate 18.00 /min [facility] Jan 03 22:4 3:26 EDT 2024 Systolic Blood Pressure 146.00 mm[Hg] [facility] Jan 03 15:14:02 EDT 2024 Diastolic Blood Pressure 78.00 mm[Hg] [facility] Jan 03 15:14:02 EDT 2024 Pulse Oximetry 97.00 % [facility] Jan 03 15:14 :02 EDT 2024 Body temperature 98.00 [degF] [facility] Jan 03 15:1 4:02 EDT 2024 Respiratory rate 18.00 /min [facility] Jan 03 15:1 4:02 EDT 2024 Body weight 149.60 [lb_av] [facility] Jan 03 12:49 :54 EDT 2024 Systolic Blood Pressure 146.00 mm[Hg] [facility] Jan 03 09:25:15 EDT 2024 Diastolic Blood Pressure 78.00 mm[Hg] Sat Jan 03 09:25:15 EDT 2024 Systolic Blood Pressure 146.00 mm[Hg] [facility] Jan 03 09:25:15 EDT 2025 Diastolic Blood Pressure 78.00 mm[Hg] SunJan 03 09:25:15 EDT 5 Systolic Blood Pressure 157.00 mm[Hg] SunJan 02 23:36:58 EDT 2024 Diastolic Blood Pressure 77.00 mm[Hg] SunJan 02 23:36:58 EDT 2024 Pulse Oximetry 93.00 % SunJan 02 23:36 :58 EDT 2024 Body temperature 97.50 [degF] SunJan 02 23:3 6:58 EDT 2024 Respiratory rate 20.00 /min SunJan 02 23:3 6:58 EDT 2024 Systolic Blood Pressure 143.00 mm[Hg] SunJan 02 12:25:22 EDT 2024 Diastolic Blood Pressure 64.00 mm[Hg] SunJan 02 12:25:22 EDT 2024 Pulse Oximetry 96.00 % SunJan 02 12:25 :22 EDT 2024 Body weight 152.20 [lb_av] SunJan 02 12:25 :22 EDT 2024 Body temperature 97.70 [degF] SunJan 02 12:2 5:22 EDT 2024 Respiratory rate 18.00 /min SunJan 02 12:2 5:22 EDT 2024 Systolic Blood Pressure 155.00 mm[Hg] SunJan 02 09:17:08 EDT 2024 Diastolic Blood Pressure 84.00 mm[Hg] SunJan 02 09:17:08 EDT 2024 Systolic Blood Pressure 155.00 mm[Hg] SunJan 02 09:17:08 EDT 2024 Diastolic Blood Pressure 84.00 mm[Hg] SunJan 02 09:17:08 EDT 2024 Systolic Blood Pressure 137.00 mm[Hg] SunJan 01 20:24:30 EDT 2024 Diastolic Blood Pressure 79.00 mm[Hg] SunJan 01 20:24:30 EDT 2024 Pulse Oximetry 95.00 % SunJan 01 20:24 :30 EDT 2024 Body temperature 98.00 [degF] SunJan 01 20:2 4:30 EDT 2024 Respiratory rate 18.00 /min SunJan 01 20:2 4:30 EDT 2024 Systolic Blood Pressure 142.00 mm[Hg] SunJan 01 15:07:31 EDT 2024 Diastolic Blood Pressure 63.00 mm[Hg] SunJan 01 15:07:31 EDT 2024 Pulse Oximetry 94.00 % SunJan 01 15:07 :31 EDT 2024 Body weight 150.00 [lb_av] SunJan 01 15:07 :31 EDT 2024 Body temperature 97.40 [degF] Debra Jan 01 15:0 7:31 EDT 2024 Respiratory rate 18.00 /min SunJan 01 15:0 7:31 EDT 2024 Systolic Blood Pressure 142.00 mm[Hg] SunJan 01 09:58:20 EDT 2024 Diastolic Blood Pressure 63.00 mm[Hg] Debra Jan 01 09:58:20 EDT 2024 Systolic Blood Pressure 142.00 mm[Hg] Debra Jan 01 09:58:20 EDT 2024 Diastolic Blood Pressure 63.00 mm[Hg] Debra Jan 01 09:58:20 EDT 2024 Systolic Blood Pressure 142.00 mm[Hg] [facility] Jan 01 09:58:20 EDT 2024 Diastolic Blood Pressure 63.00 mm[Hg] [facility] Jan 01 09:58:20 EDT 2024 Systolic Blood Pressure 142.00 mm[Hg] SunDec 31 21:51:41 EDT 2024 Diastolic Blood Pressure 77.00 mm[Hg] SunDec 31 21:51:41 EDT 2024 Pulse Oximetry 96.00 % SunDec 31 21:51 :41 EDT 2024 Body temperature 98.20 [degF] SunDec 31 21:5 1:41 EDT 2024 Respiratory rate 18.00 /min SunDec 31 21:5 1:41 EDT 2024 Systolic Blood Pressure 151.00 mm[Hg] SunDec 31 10:31:55 EDT 2024 Diastolic Blood Pressure 73.00 mm[Hg] SunDec 31 10:31:55 EDT 2024 Pulse Oximetry 95.00 % SunDec 31 10:31 :55 EDT 2024 Body weight 149.80 [lb_av] SunDec 31 10:31 :55 EDT 2024 Body temperature 97.50 [degF] SunDec 31 10:3 1:55 EDT 2024 Respiratory rate 18.00 /min SunDec 31 10:3 1:55 EDT 2024 Systolic Blood Pressure 151.00 mm[Hg] SunDec 31 09:28:57 EDT 2024 Diastolic Blood Pressure 73.00 mm[Hg] SunDec 31 09:28:57 EDT 2024 Systolic Blood Pressure 151.00 mm[Hg] SunDec 31 09:28:57 EDT 2024 Diastolic Blood Pressure 73.00 mm[Hg] SunDec 31 09:28:57 EDT 2024 Systolic Blood Pressure 151.00 mm[Hg] SunDec 31 09:28:57 EDT 2024 Diastolic Blood Pressure 73.00 mm[Hg] SunDec 31 09:28:57 EDT 2024 Systolic Blood Pressure 151.00 mm[Hg] SunDec 31 07:40:20 EDT 2024 Diastolic Blood Pressure 73.00 mm[Hg] SunDec 31 07:40:20 EDT 2024 Pulse Oximetry 95.00 % SunDec 31 07:40 :20 EDT 2024 Heart Rate 64.00 /min SunDec 31 07:40 :20 EDT 2024 Body temperature 97.50 [degF] SunDec 31 07:4 0:20 EDT 2024 Respiratory rate 18.00 /min SunDec 31 07:4 0:20 EDT 2024 Systolic Blood Pressure 127.00 mm[Hg] SunDec 30 23:27:06 EDT 2024 Diastolic Blood Pressure 56.00 mm[Hg] SunDec 30 23:27:06 EDT 2024 Pulse Oximetry 95.00 % SunDec 30 23:27 :06 EDT 2024 Body temperature 98.00 [degF] SunDec 30 23:2 7:06 EDT 2024 Respiratory rate 74.00 /min SunDec 30 23:2 7:06 EDT 2024 Systolic Blood Pressure 148.00 mm[Hg] SunDec 30 14:43:40 EDT 2024 Diastolic Blood Pressure 68.00 mm[Hg] SunDec 30 14:43:40 EDT 2024 Body weight 151.00 [lb_av] SunDec 30 14:42 :57 EDT 2024 Pulse Oximetry 94.00 % SunDec 30 14:35 :10 EDT 2024 Body temperature 97.60 [degF] SunDec 30 14:3 5:10 EDT 2024 Respiratory rate 18.00 /min SunDec 30 14:3 5:10 EDT 2024 Systolic Blood Pressure 148.00 mm[Hg] SunDec 30 09:42:03 EDT 2024 Diastolic Blood Pressure 68.00 mm[Hg] SunDec 30 09:42:03 EDT 2024 Systolic Blood Pressure 148.00 mm[Hg] SunDec 30 09:42:03 EDT 2024 Diastolic Blood Pressure 68.00 mm[Hg] SunDec 30 09:42:03 EDT 2024 Systolic Blood Pressure 148.00 mm[Hg] SunDec 30 09:42:03 EDT 2024 Diastolic Blood Pressure 68.00 mm[Hg] SunDec 30 09:42:03 EDT 2024 Systolic Blood Pressure 148.00 mm[Hg] SunDec 30 08:01:33 EDT 2024 Diastolic Blood Pressure 68.00 mm[Hg] SunDec 30 08:01:33 EDT 2024 Pulse Oximetry 95.00 % SunDec 30 08:01 :33 EDT 2024 Heart Rate 65.00 /min SunDec 30 08:01 :33 EDT 2024 Body temperature 97.60 [degF] SunDec 30 08:0 1:33 EDT 2024 Respiratory rate 18.00 /min SunDec 30 08:0 1:33 EDT 2024 Systolic Blood Pressure 119.00 mm[Hg] SunDec 29 23:20:24 EDT 2024 Diastolic Blood Pressure 62.00 mm[Hg] SunDec 29 23:20:24 EDT 2024 Pulse Oximetry 96.00 % SunDec 29 23:20 :24 EDT 2024 Body temperature 97.90 [degF] SunDec 29 23:2 0:24 EDT 2024 Respiratory rate 20.00 /min SunDec 29 23:2 0:24 EDT 2024 Body weight 151.00 [lb_av] SunDec 29 15:09 :36 EDT 2024 Systolic Blood Pressure 131.00 mm[Hg] SunDec 29 09:56:55 EDT 2024 Diastolic Blood Pressure 66.00 mm[Hg] SunDec 29 09:56:55 EDT 2024 Pulse Oximetry 92.00 % SunDec 29 09:56 :55 EDT 2024 Body temperature 97.80 [degF] SunDec 29 09:5 6:55 EDT 2024 Respiratory rate 20.00 /min SunDec 29 09:5 6:55 EDT 2024 Systolic Blood Pressure 131.00 mm[Hg] SunDec 29 09:47:00 EDT 2024 Diastolic Blood Pressure 66.00 mm[Hg] SunDec 29 09:47:00 EDT 2024 Systolic Blood Pressure 131.00 mm[Hg] Sun 30 09:47:00 EDT 2024 Diastolic Blood Pressure 66.00 mm[Hg] Sun 30 09:47:00 EDT 2024 Systolic Blood Pressure 131.00 mm[Hg] Sun 30 09:47:00 EDT 2024 Diastolic Blood Pressure 66.00 mm[Hg] Sun 30 09:47:00 EDT 2024 Systolic Blood Pressure 104.00 mm[Hg] Sun Murtaza 29 20:49:56 EDT 2024 Diastolic Blood Pressure 69.00 mm[Hg] Sun Murtaza 29 20:49:56 EDT 2024 Pulse Oximetry 95.00 % Sun Murtaza 29 20:49 :56 EDT 2024 Body temperature 98.00 [degF] Sun Murtaza 29 20:4 9:56 EDT 2024 Respiratory rate 20.00 /min Sun Murtaza 29 20:4 9:56 EDT 2024 Body weight 150.50 [lb_av] Sun Murtaza 29 18:20 :48 EDT 2024 Systolic Blood Pressure 159.00 mm[Hg] Sun Murtaza 29 10:50:40 EDT 2024 Diastolic Blood Pressure 77.00 mm[Hg] Sun Murtaza 29 10:50:40 EDT 2024 Pulse Oximetry 92.00 % Sun Murtaza 29 10:50 :40 EDT 2024 Body temperature 98.00 [degF] Sun Murtaza 29 10:5 0:40 EDT 2024 Respiratory rate 20.00 /min Sun Murtaza 29 10:5 0:40 EDT 2024 Systolic Blood Pressure 159.00 mm[Hg] Sun Murtaza 29 10:23:07 EDT 2024 Diastolic Blood Pressure 77.00 mm[Hg] Sun Murtaza 29 10:23:07 EDT 2024 Systolic Blood Pressure 159.00 mm[Hg] Sun Murtaza 29 10:23:07 EDT 2024 Diastolic Blood Pressure 77.00 mm[Hg] Sun Murtaza 29 10:23:07 EDT 2024 Systolic Blood Pressure 159.00 mm[Hg] Sun Murtaza 29 10:23:07 EDT 2024 Diastolic Blood Pressure 77.00 mm[Hg] Sun Murtaza 29 10:23:07 EDT 2024 Systolic Blood Pressure 130.00 mm[Hg] Sat Murtaza 28 23:13:33 EDT 2024 Diastolic Blood Pressure 66.00 mm[Hg] Sat Murtaza 28 23:13:33 EDT 2024 Pulse Oximetry 93.00 % [facility] 28 23:13 :33 EDT 2024 Body temperature 97.80 [degF] [facility] 28 23:1 3:33 EDT 2024 Respiratory rate 18.00 /min [facility] 28 23:1 3:33 EDT 2024 Body weight 150.10 [lb_av] [facility] 28 16:43 :20 EDT 2024 Systolic Blood Pressure 159.00 mm[Hg] [facility] 28 09:38:03 EDT 2024 Diastolic Blood Pressure 79.00 mm[Hg] [facility] 28 09:38:03 EDT 2024 Pulse Oximetry 94.00 % [facility] 28 09:38 :03 EDT 2024 Body temperature 97.80 [degF] [facility] 09:3 8:03 EDT 2024 Respiratory rate 20.00 /min [facility] 09:3 8:03 EDT 2024 Systolic Blood Pressure 159.00 mm[Hg] [facility] 28 09:11:31 EDT 2024 Diastolic Blood Pressure 79.00 mm[Hg] [facility] 28 09:11:31 EDT 2024 Systolic Blood Pressure 159.00 mm[Hg] [facility] 09:11:31 EDT 2024 Diastolic Blood Pressure 79.00 mm[Hg] [facility] 28 09:11:31 EDT 2024 Systolic Blood Pressure 159.00 mm[Hg] [facility] 09:11:31 EDT 2024 Diastolic Blood Pressure 79.00 mm[Hg] [facility] 09:11:31 EDT 2024 Systolic Blood Pressure 147.00 mm[Hg] SunDec 26 23:49:16 EDT 2024 Diastolic Blood Pressure 78.00 mm[Hg] SunDec 26 23:49:16 EDT 2024 Pulse Oximetry 97.00 % SunDec 26 23:49 :16 EDT 2024 Body temperature 98.10 [degF] SunDec 26 23:4 9:16 EDT 2024 Respiratory rate 20.00 /min SunDec 26 23:4 9:16 EDT 2024 Systolic Blood Pressure 119.00 mm[Hg] SunDec 26 17:10:38 EDT 2024 Diastolic Blood Pressure 69.00 mm[Hg] SunDec 26 17:10:38 EDT 2024 Pulse Oximetry 93.00 % SunDec 26 17:10 :38 EDT 2024 Body temperature 98.00 [degF] SunDec 26 17:1 0:38 EDT 2024 Respiratory rate 20.00 /min SunDec 26 17:1 0:38 EDT 2024 Systolic Blood Pressure 116.00 mm[Hg] SunDec 26 15:52:21 EDT 2024 Diastolic Blood Pressure 64.00 mm[Hg] SunDec 26 15:52:21 EDT 2024 Systolic Blood Pressure 120.00 mm[Hg] SunDec 26 15:52:21 EDT 2024 Diastolic Blood Pressure 67.00 mm[Hg] SunDec 26 15:52:21 EDT 2024 Systolic Blood Pressure 118.00 mm[Hg] SunDec 26 15:52:21 EDT 2024 Diastolic Blood Pressure 74.00 mm[Hg] SunDec 26 15:52:21 EDT 2024 Body weight 151.00 [lb_av] SunDec 26 15:27 :16 EDT 2024 Systolic Blood Pressure 119.00 mm[Hg] SunDec 26 09:40:15 EDT 2024 Diastolic Blood Pressure 69.00 mm[Hg] SunDec 26 09:40:15 EDT 2024 Systolic Blood Pressure 119.00 mm[Hg] SunDec 26 09:40:15 EDT 2024 Diastolic Blood Pressure 69.00 mm[Hg] SunDec 26 09:40:15 EDT 2024 Systolic Blood Pressure 119.00 mm[Hg] SunDec 26 09:40:15 EDT 2024 Diastolic Blood Pressure 69.00 mm[Hg] SunDec 26 09:40:15 EDT 2024 Systolic Blood Pressure 165.00 mm[Hg] SunDec 25 12:50:40 EDT 2024 Diastolic Blood Pressure 80.00 mm[Hg] SunDec 25 12:50:40 EDT 2024 Pulse Oximetry 95.00 % SunDec 25 12:50 :40 EDT 2024 Body weight 150.20 [lb_av] SunDec 25 12:50 :40 EDT 2024 Body temperature 97.30 [degF] SunDec 25 12:5 0:40 EDT 2024 Respiratory rate 18.00 /min SunDec 25 12:5 0:40 EDT 2024 Systolic Blood Pressure 165.00 mm[Hg] SunDec 25 08:39:48 EDT 2024 Diastolic Blood Pressure 80.00 mm[Hg] SunDec 25 08:39:48 EDT 2024 Systolic Blood Pressure 165.00 mm[Hg] Debra Dec 25 08:39:48 EDT 2024 Diastolic Blood Pressure 80.00 mm[Hg] SunDec 25 08:39:48 EDT 2024 Systolic Blood Pressure 165.00 mm[Hg] Debra Dec 25 08:39:48 EDT 2024 Diastolic Blood Pressure 80.00 mm[Hg] Debra Dec 25 08:39:48 EDT 2024 Systolic Blood Pressure 111.00 mm[Hg] Debra Dec 25 00:00:28 EDT 2024 Diastolic Blood Pressure 66.00 mm[Hg] Debra Dec 25 00:00:28 EDT 2024 Pulse Oximetry 93.00 % Debra Dec 25 00:00 :28 EDT 2024 Body temperature 97.30 [degF] Debra Dec 25 00:0 0:28 EDT 2024 Respiratory rate 83.00 /min Debra Dec 25 00:0 0:28 EDT 2024 Systolic Blood Pressure 115.00 mm[Hg] SunDec 24 16:55:00 EDT 2024 Diastolic Blood Pressure 40.00 mm[Hg] SunDec 24 16:55:00 EDT 2024 Pulse Oximetry 93.00 % SunDec 24 16:55 :00 EDT 2024 Heart Rate 82.00 /min SunDec 24 16:55 :00 EDT 2024 Body Height 72.00 [in_i] SunDec 24 16:55 :00 EDT 2024 Body temperature 97.80 [degF] SunDec 24 16:5 5:00 EDT 2024 Respiratory rate 20.00 /min SunDec 24 16:5 5:00 EDT 2024 Reason for Referral
[2025-01-22] MEDS: ONDANSETRON INJ 4 MG/2 ML VIAL IV PUSH (14:03)
[2025-01-22 14:20] LABS: Troponin I < 0.012 ng/mL (0.000-0.034)
[2025-01-22 14:23] LABS: Add Urine Microscopic? NO; Appearance Urine Clear (Clear); Glucose Urine UA Negative (Negative); Leukocyte Esterase Ur Negative LEU/UL (Negative); Nitrate Urine Negative (Negative); Specific Grav Ur 1.019 (1.001-1.035)
--- NOTE | 2025-01-22 15:20 | P.HP_ITS ---
H&P: HPI History of Present Illness Date/Time: 01/22/25 15:20 Chief Complaint: Syncope Narrative: 89-year-old with past medical history of atrial fibrillation, COPD, hypertension, dementia and syncope from unknown cause presents the hospital after a syncopal event. Patient states that he does want me admitted to the hospital because he has had plenty of workup for syncope and no cause has been found. Patient's last hospital admission for syncope was on 12/19/2024. Echo with bubble study from the hospitalization shows no visualization of bubbles and right ventricle, MRI with no acute findings, CTA with less than 50% stenosis of the left vertebral artery, 0% of right and left carotid bulb. Daughter is worried about patient's safety and would like him to have placement. Case management unable place patient from ED. HPI is limited as patient is extremely hard of hearing and does not have his hearing aids. Lab work shows sodium 133, BUN of 22, troponin negative, UA negative for infection, chest x-ray with no acute findings, head CT negative for acute finding. Review of Systems Review of Systems: 12 systems were reviewed and are negativ e except for as per HPI. [facility] Past Medical History Medical History Lumbar radiculopathy Lumbar spondylosis Peripheral vascular disease Chronic obstructive pulmonary disease Benign prostatic hyperplasia Depression Seasonal allergies Anemia Hypertension Atrial fibrillation Anxiety Constipation Dementia Hyperlipidemia Surgical History Surgical History Status post peripheral artery angioplasty with insertion of stent History of cholecystectomy Family History Family History Other Unknown family medical history Social History Social History Social History: Healthcare power of litigation attorney: Roseanne Noguera. Code status: Smoking packs per day: 1 Smoking cigarettes per day: 20.0 Smoking status: Former smoker Alcohol intake: current Drinks per week: 1 Substance use: never Substance use type: does not use Do You Feel Safe in your Home?: Yes Lack of Transportation: No Lack of Food: Never True Current Housing: I Have Housing Concerned About Future Housing: No Difficulty Paying Gas/Electric Bills: No Difficulty Paying for Meds: No Currently Unemployed: No Education: Grade School Difficulty w/ Childcare or Family Care: No Spiritual care concerns: No Meds Home Medications and Allergies Home Medications ?Medication ?Instructions ?Recorded ?Confirmed ?Type aspirin 81 mg tablet,delayed 81 mg PO DAILY 12/12/21 01/22/25 History release polyethylene glycol 3350 17 gram 17 g PO QAM #7 ea 03/15/24 01/22/25 Rx oral powder packet (Miralax) fluticasone propionate 50 1 spray intranasal BID #16 grams 07/13/24 01/22/25 Rx mcg/actuation nasal spray,suspension (Flonase Allergy Relief) albuterol sulfate 90 mcg/actuation 1 - 2 inh inhalation Q4-6H PRN 08/01/24 01/22/25 Rx aerosol inhaler shortness of breath or wheezing #8.5 grams mupirocin 2 % topical ointment 1 applic topical BID PRN wound 10/13/24 01/22/25 Rx (Centany) care #22 grams amlodipine 5 mg tablet 5 mg PO DAILY #30 tabs 12/24/24 01/22/25 Rx atorvastatin 40 mg tablet (Lipitor) 20 mg PO DAILY 01/22/25 01/22/25 History losartan 100 mg tablet 50 mg PO DAILY 01/22/25 01/22/25 History Allergies Allergy/AdvReac Type Severity Reaction Status Date / Time No Known Allergies Allergy Verified 12/18/24 18:36 Vital Signs Vital Signs - 24 hr 01/22/25 13:11 01/22/25 13:31 01/22/25 14:06 Temperature 97.6 F Pulse Rate 74 75 77 Respiratory Rate 21 H 20 Blood Pressure 163/76 H 150/97 H 163/69 H Pulse Oximetry 96 100 01/22/25 14:07 01/22/25 14:08 01/22/25 15:01 Temperature Pulse Rate 72 83 72 Respiratory Rate 20 Blood Pressure 161/76 H 170/71 H 175/87 H Pulse Oximetry 99 Exam Narrative: General: well appearing, appears stated age. Heart hearing HEENT: normocephalic, atraumatic. Mucous membranes moist. EOMI, PERRLA, bilateral sclera anicteric, no conjunctival injection. Neck supple without JVD, lymphadenopathy, or bruit. Respiratory: clear to ascultation bilaterally. No rales/rhonic/wheezes. Cardiovascular: Regular rate and rhythm, normal S1-S2 upon ascultation. No murmurs, rubs, or clicks. PMI is nondisplaced, capillary refill less than 3 second. Abdomen: Soft, round, no pulsatile masses, nondistended and nontender. No rebound, no guarding. No CVA tenderness, no hepatosplenomegaly. Bowel sounds present to all four quadrants. No high pitch or tinkling sounds, resonant to percussion. Extremities: No cyanosis, clubbing, or edema present. Pulses are palpable 2/2. Active ROM to all four extremities. Neuro: Alert and orientated x 4. PERRLA. Cranial nerves 2-12 intact without focal deficit. Skin: Warm, dry, and intact, without rash, erythema, or lesion. Psych: pleasant, cooperative, normal speech, normal affect, no hallucinations, no dysarthia H&P: Results Labs Labs: Short CBC 01/22/25 Range/Units 13:23 WBC 5.5 (4.5-10.0) K/mm3 Hgb 14.0 (14.0-18.0) g/dL Hct 41.8 L (42.0-52.0) % Plt Count 193 (150-375) k/mm3 BMP 01/22/25 13:23 Sodium 133 L Potassium 4.6 Chloride 101 Carbon Dioxide 24 BUN 22 H Creatinine 0.96 Glucose 105 Calcium 9.4 Cardiac Enzymes 01/22/25 Range/Units 13:23 Troponin I < 0.012 (0.000-0.034) ng/mL Liver Function 01/22/25 Range/Units 13:23 Total Bilirubin 0.9 (0.2-1.3) mg/dL AST 28 (17-59) U/L ALT 16 (6-50) U/L Alkaline Phosphatase 107 (38-126) U/L Albumin 4.1 (3.5-5.1) g/dL Urine 01/22/25 Range/Units 14:13 Urine Color Yellow (Yellow) Urine Appearance Clear (Clear) Urine pH 6.0 (5.0-9.0) Ur Specific Worden 1.019 (1.001-1.035) Urine Protein Negative (Negative) mg/dL Urine Glucose (UA) Negative (Negative) mg/dL Assessment and Plan Assessment and plan (1) Syncope: Code(s): R55 - Syncope and collapse Status: Acute Assessment and Plan: Patient's last hospital admission for syncope was on 12/19/2024. Echo with bubble study from the hospitalization shows no visualization of bubbles and right ventricle, MRI with no acute findings, CTA with less than 50% stenosis of the left vertebral artery, 0% of right and left carotid bulb. Case management called for placement CT head negative for acute finding PT OT evaluate and treat Orthostatic vital signs negative (2) Hypertension: Code(s): I10 - Essential (primary) hypertension Status: Acute Assessment and Plan: Continue losartan and amlodipine (3) Atrial fibrillation: Code(s): I48.91 - Unspecified atrial fibrillation Status: Acute Assessment and Plan: Rate controlled Continue aspirin (4) Hyperlipidemia: Code(s): E78.5 - Hyperlipidemia, unspecified Status: Chronic Assessment and Plan: Continue Lipitor (5) BPH (benign prostatic hyperplasia): Code(s): N40.0 - Benign prostatic hyperplasia without lower urinary tract symptoms Status: Acute (6) COPD (chronic obstructive pulmonary disease): Code(s): J44.9 - Chronic obstructive pulmonary disease, unspecified Status: Acute Assessment and Plan: Continue inhaler Quality VTE Prophylaxis VTE prophylaxis: mechanical ordered Hospitalist MIPS Advance Care Plan I have confirmed that the patient's Advanced Care Plan is present, code status is documented, or surrogate decision maker is listed in patient medical record.: Yes Medication Reconciliation I have utilized all available resources to obtain, update and review the patients current medications (includes all prescriptions, OTC, herbals, cannabis, and nutritional supplements).: Yes
--- NOTE | 2025-01-22 15:22 | PCCCNOTE ---
Spoke to the pt and his daughter as requested to educate them on the placement info skilled facility process. The patient has essence insurance so an auth needed to be gained, PT/OT chano. Stated the pt currently goes to [facility] in [place] bi-weekly. Referral to [facility] placed for Medicaid application assistance. ED provider updated. Denies having any further concerns at this time.-brit
[2025-01-22] MEDS: SODIUM CHLORIDE 0.9% IV 1,000 ML 125 ML IV CONT (16:44)
[2025-01-22] MEDS: DOCUSATE SODIUM 100 MG CAPSULE PO (17:21)
--- NOTE | 2025-01-22 17:31 | ADMGEN ---
This patient, Noé Davila, was admitted to 3 Med Surg Room 306-01. Patient/family oriented to hospital policies and general routines including ID bracelet, bed and alarms, visiting hours, pain management, procedures, bathroom and other care routines, personal items, smoking policy, room service/diet, and visiting hours. Information on how to activate the Rapid Response Team has been discussed. Patient/Family are encouraged to report perceived risks to care and to ask questions if they do not understand what they are told or what they should do.
[2025-01-23] VITALS (11 sets, daily range): BP systolic 137–160; BP diastolic 65–69; PULSE 64–104; RESP 18–20; TEMP 35.7–36.6; O2SAT 95–98; BMI 18.1
[2025-01-23] MEDS: SODIUM CHLORIDE 0.9% IV 1,000 ML 125 ML IV CONT ×4 (01:46→22:50)
[2025-01-23 06:39] LABS: Hematocrit 39.6 % (42.0-52.0); Hemoglobin 13.3 g/dL (14.0-18.0); Immature Granulocyte Percent A 0.6 % (0-0.5); Lymphocytes Absolute Auto 0.73 K/mm3 (0.9-3.2); Mean Corpuscular HGB Conc 33.6 g/dl (32-36); Mean Corpuscular Hemoglobin 31.5 pg (26-34); Mean Corpuscular Volume 93.8 fl (80-100); Nucleated Red Blood Cells Absolute Auto 0.000 K/mm3 (0.0-0.012); Nucleated Red Blood Cells Perc 0.0 % (0.0-0.2); Platelet Count Result 189 k/mm3 (150-375); Red Blood Count 4.22 M/mm3 (4.6-6.20); White Blood Count 5.3 K/mm3 (4.5-10.0)
[2025-01-23 07:11] LABS: Anion Gap 5 mmol/L (4-12); Blood Urea Nitrogen 16 mg/dL (9-20); Calcium 8.9 mg/dL (8.4-10.2); Carbon Dioxide 24 mmol/L (22-30); Chloride 103 mmol/L (98-107); Estimated CRCL calculation 39 ml/min; Estimated Glomerular Filt Rate > 60; Glucose 99 mg/dL (65-110); Potassium 4.5 mmol/L (3.4-5.0); Sodium 132 mmol/L (137-145)
[2025-01-23] MEDS: ASPIRIN 81 MG ENTERIC TABLET PO (08:55)
[2025-01-23] MEDS: DOCUSATE SODIUM 100 MG CAPSULE PO ×2 (08:55→17:52)
[2025-01-23] MEDS: LOSARTAN POTASSIUM 50 MG TABLET PO (08:55)
[2025-01-23] MEDS: ATORVASTATIN 20 MG TABLET PO (08:55)
--- NOTE | 2025-01-23 14:40 | P.PNIM_ITS ---
Progress Note: A&P Assessment and Plan (1) Syncope: Code(s): R55 - Syncope and collapse Status: Acute Assessment and Plan: Patient's last hospital admission for syncope was on 12/19/2024. Echo with bubble study from the hospitalization shows no visualization of bubbles and right ventricle, MRI with no acute findings, CTA with less than 50% stenosis of the left vertebral artery, 0% of right and left carotid bulb. Case management called for placement CT head negative for acute finding PT OT evaluate and treat Orthostatic vital signs negative (2) Hypertension: Code(s): I10 - Essential (primary) hypertension Status: Acute Assessment and Plan: Continue losartan and amlodipine (3) Atrial fibrillation: Code(s): I48.91 - Unspecified atrial fibrillation Status: Acute Assessment and Plan: Rate controlled Continue aspirin (4) Hyperlipidemia: Code(s): E78.5 - Hyperlipidemia, unspecified Status: Chronic Assessment and Plan: Continue Lipitor (5) BPH (benign prostatic hyperplasia): Code(s): N40.0 - Benign prostatic hyperplasia without lower urinary tract symptoms Status: Acute (6) COPD (chronic obstructive pulmonary disease): Code(s): J44.9 - Chronic obstructive pulmonary disease, unspecified Status: Acute Assessment and Plan: Continue inhaler Plan Currently patient is sitting in the chair eating his lunch, his daughter is present in the concern about the patient dementia and dibility as he not able to function himself, will have patient participate with PT/OT, patient will benefit going to rehab to gain physical strength, patient will work with PT/OT and further recommendation to follow. Subjective Date/time seen: 01/23/25 14:40 Interval history: Syncope Narrative: 89-year-old with past medical history of atrial fibrillation, COPD, hypertension, dementia and syncope from unknown cause presents the hospital after a syncopal event. Patient states that he does want me admitted to the hospital because he has had plenty of workup for syncope and no cause has been found. Patient's last hospital admission for syncope was on 12/19/2024. Echo with bubble study from the hospitalization shows no visualization of bubbles and right ventricle, MRI with no acute findings, CTA with less than 50% stenosis of the left vertebral artery, 0% of right and left carotid bulb. Daughter is worried about patient's safety and would like him to have placement. Case management unable place patient from ED. HPI is limited as patient is extremely hard of hearing and does not have his hearing aids. Lab work shows sodium 133, BUN of 22, troponin negative, UA negative for infection, chest x-ray with no acute findings, head CT negative for acute finding. Currently patient is sitting in the chair eating his lunch, his daughter is present in the concern about the patient dementia and dibility as he not able to function himself, will have patient participate with PT/OT, patient will benefit going to rehab to gain physical strength, patient will work with PT/OT and further recommendation to follow. Review of Systems Review of Systems: 12 systems were reviewed and are negativ e except for as per HPI. Exam Narrative: Elderly frail Patient is comfortable, NAD HEENT: eyes are clear and none icteric LUNGS:CTA HEART: RR S1S2 ABD: BS+, Soft and nontender Lower extremities: no edema SKIN: nonjaundiced Neuro: grossly intact. Objective Data Vital Signs Vital Signs: Vital Signs - 24 hr 01/22/25 15:01 01/22/25 16:04 01/22/25 16:32 Temperature Pulse Rate 72 92 77 Respiratory Rate 20 20 20 Blood Pressure 175/87 H 184/80 H 146/58 H Pulse Oximetry 99 94 98 Oxygen Delivery 01/22/25 17:28 01/22/25 17:30 01/22/25 20:00 Temperature 36.3 C L Pulse Rate 81 81 Respiratory Rate 20 Blood Pressure 174/66 H Pulse Oximetry 100 Oxygen Delivery Room Air 01/22/25 21:05 01/22/25 21:05 01/22/25 21:07 Temperature 36.1 C L Pulse Rate 75 75 95 Respiratory Rate 16 Blood Pressure 149/92 H 149/62 H 173/66 H Pulse Oximetry 96 Oxygen Delivery 01/22/25 21:09 01/23/25 00:00 01/23/25 04:00 Temperature Pulse Rate 99 70 64 Respiratory Rate Blood Pressure 181/72 H Pulse Oximetry Oxygen Delivery 01/23/25 06:00 01/23/25 08:30 01/23/25 11:08 Temperature 36.6 C Pulse Rate 69 Respiratory Rate 20 Blood Pressure 160/69 H Pulse Oximetry 96 96 Oxygen Delivery Room Air Room Air Intake/Output Intake/Output: Intake & Output 01/20/25 01/21/25 01/22/25 01/23/25 23:59 23:59 23:59 23:59 Intake Total 0 3490 Output Total 400 1100 Balance -400 2390 Meds/Results Medications: Active Medications Generic Name Dose Route Start Last Admin Trade Name Freq PRN Reason Stop Dose Admin Acetaminophen 650 mg 01/22/25 15:29 Acetaminophen 325 Mg Tablet PO Q4H PRN Mild Pain (1-3) or Fever Hydrocodone Bitart/Acetaminophen 1 tab 01/22/25 15:29 Hydrocodone/Acetaminophen (*Crx) 5-325 Mg Tablet PO Q4H PRN Moderate Pain (4-6) Albuterol 2 puff 01/22/25 19:19 Albuterol Sulfate (*Sp) Aerosol 1 Puff INHALATION Q4-6H PRN shortness of breath or wheezing Amlodipine Besylate 5 mg 01/23/25 09:00 01/23/25 08:55 Amlodipine Besylate 5 Mg Tablet PO 5 mg DAILY CONNIE Administration Aspirin 81 mg 01/23/25 09:00 01/23/25 08:55 Aspirin 81 Mg Enteric Tablet PO 81 mg DAILY CONNIE Administration Atorvastatin Calcium 20 mg 01/23/25 09:00 01/23/25 08:55 Atorvastatin 20 Mg Tablet PO 20 mg DAILY CONNIE Administration Buspirone HCl 5 mg 01/22/25 21:30 01/23/25 08:55 Buspirone Hcl 5 Mg Tablet PO 5 mg Q12HR CONNIE Administration Docusate Sodium 100 mg 01/22/25 17:00 01/23/25 08:55 Docusate Sodium 100 Mg Capsule PO 100 mg BID CONNIE Administration Sodium Chloride 1,000 mls @ 125 mls/hr 01/22/25 15:35 01/23/25 06:34 Normal Saline Iv IV CONT 125 mls/hr .Q8H CONNIE Administration Losartan Potassium 50 mg 01/23/25 09:00 01/23/25 08:55 Losartan Potassium 50 Mg Tablet PO 50 mg DAILY CONNIE Administration Polyethylene Glycol 17 gm 01/23/25 09:00 01/23/25 08:55 Polyethylene Glycol 3350 17 Gm Powd.Pack PO 17 gm QAM CONNIE Administration Radiology Results: ITS Impressions Chest X-Ray 01/22/25 13:37 IMPRESSION: No acute process. Head CT 01/22/25 16:44 Impression: No acute intracranial hemorrhage or suspicious mass effect. Labs Labs: Laboratory Results - last 24 hr 01/23/25 06:07 WBC 5.3 RBC 4.22 L Hgb 13.3 L Hct 39.6 L MCV 93.8 MCH 31.5 MCHC 33.6 RDW 12.9 Plt Count 189 MPV 9.2 Immature Gran % (Auto) 0.6 H Neut % (Auto) 69.7 Lymph % (Auto) 13.7 L [place] % (Auto) 8.3 Eos % (Auto) 6.8 H Baso % (Auto) 0.9 Lymph # (Auto) 0.73 L [place] # (Auto) 0.4 Eos # (Auto) 0.4 H Baso # (Auto) 0.1 Abs Immat Gran (auto) 0.03 Absolute Neuts (auto) 3.7 Absolute Nucleated RBC 0.000 Nucleated RBC % 0.0 Sodium 132 L Potassium 4.5 Chloride 103 Carbon Dioxide 24 Anion Gap 5 BUN 16 Creatinine 0.97 Estim Creat Clear Calc 39 Estimated GFR > 60 Glucose 99 Calcium 8.9 Quality VTE Prophylaxis VTE prophylaxis: mechanical ordered
[2025-01-24] VITALS (11 sets, daily range): BP systolic 140–214; BP diastolic 62–100; PULSE 64–86; RESP 16–20; TEMP 36–36.6; O2SAT 93–99
--- NOTE | 2025-01-24 03:59 | ECG_ITS ---
Test Date: 2025-01-24 04:10:56 Measurements Intervals [place] Rate: 77 P: 76 CT: 166 QRS: -67 QRSD: 135 T: 52 QT: 400 QTc: 454 Interpretive Statements SINUS RHYTHM LEFT AXIS DEVIATION [QRS AXIS < -30] RIGHT BUNDLE BRANCH BLOCK [120+ ms QRS DURATION, UPRIGHT V1, 40+ ms S IN I/aVL/V4/V5/V6] Compared to ECG 01/22/2025 13:28:07 NO SIGNIFICANT CHANGES Electronically Signed On 01-25-2025 13:59:53 CDT by Leo Beck M.D.
[2025-01-24 04:51] LABS: Anion Gap 8 mmol/L (4-12); Blood Urea Nitrogen 15 mg/dL (9-20); Calcium 9.3 mg/dL (8.4-10.2); Carbon Dioxide 20 mmol/L (22-30); Chloride 103 mmol/L (98-107); Estimated CRCL calculation 45 ml/min; Estimated Glomerular Filt Rate > 60; Glucose 110 mg/dL (65-110); Magnesium 1.7 mg/dL (1.6-2.3); Potassium 4.2 mmol/L (3.4-5.0); Sodium 131 mmol/L (137-145)
[2025-01-24] MEDS: MAGNESIUM SULF 2 GM/WATER 50ML 2 GM/50 ML BAG IVPB (06:08)
[2025-01-24] MEDS: DOCUSATE SODIUM 100 MG CAPSULE PO ×2 (09:16→16:34)
[2025-01-24] MEDS: ATORVASTATIN 20 MG TABLET PO (09:16)
[2025-01-24] MEDS: ASPIRIN 81 MG ENTERIC TABLET PO (09:16)
[2025-01-24] MEDS: LOSARTAN POTASSIUM 50 MG TABLET PO (09:17)
--- NOTE | 2025-01-24 10:25 | PM.DS ---
DS: Summary Time Spent with Patient Time attestation: Total time spent providing and/or coordinating discharge services: DS: Data Data Completed and Pending Labs on day of discharge: Labs from last 24 hours 01/24/25 04:28 Sodium 131 L Potassium 4.2 Chloride 103 Carbon Dioxide 20 L Anion Gap 8 BUN 15 Creatinine 0.83 Estim Creat Clear Calc 45 Estimated GFR > 60 Glucose 110 Calcium 9.3 Magnesium 1.7 Discharge Plan Discharge Attending physician on discharge: Guy Seay Discharging Clinician: Guy Seay Patient Disposition: NH Residential/Asst Living Activity: as tolerated Diet: heart healthy Discharge Instructions: patient to follow up with his primary care provider as soon as possible. Patient Instructions: Antibiotic Form Patient Language: Korean Stand Alone Forms: General Discharge Information Follow-up/Referrals: Mely Gupta NP [Primary Care Provider] - Discharge Medications: New docusate sodium 100 mg Capsule 100 mg PO BID Qty: 30 0RF buspirone 5 mg Tablet 5 mg PO Q12HR Qty: 60 0RF Continued aspirin 81 mg tablet,delayed release (DR/EC) 81 mg PO DAILY polyethylene glycol 3350 [Miralax] 17 gram Powder In Packet 17 g PO QAM Qty: 7 0RF amlodipine 5 mg tablet 5 mg PO DAILY Qty: 30 0RF fluticasone propionate [Flonase Allergy Relief] 50 mcg/actuation spray,suspension 1 spray intranasal BID Qty: 16 0RF Rx Instructions: administer into each nostril atorvastatin [Lipitor] 40 mg tablet 20 mg PO DAILY losartan 100 mg Tablet 50 mg PO DAILY albuterol sulfate 90 mcg/actuation HFA aerosol inhaler 1 - 2 inh inhalation Q4-6H PRN (Reason: shortness of breath or wheezing) Qty: 8.5 2RF mupirocin [Centany] 2 % ointment 1 applic topical BID PRN (Reason: wound care) Qty: 22 5RF Date of admission: 01/22/25 15:33 Primary Care Provider: Mely Gupta Admitting Provider: Guy Seay Attending physician on admission: Guy Seay Condition: Stable
[2025-01-24] MEDS: SODIUM CHLORIDE 0.9% IV 1,000 ML 125 ML IV CONT ×2 (12:41→20:46)
[2025-01-24 14:37] LABS: Anion Gap 7 mmol/L (4-12); Blood Urea Nitrogen 17 mg/dL (9-20); Calcium 9.1 mg/dL (8.4-10.2); Carbon Dioxide 22 mmol/L (22-30); Chloride 98 mmol/L (98-107); Estimated CRCL calculation 41 ml/min; Estimated Glomerular Filt Rate > 60; Glucose 122 mg/dL (65-110); Magnesium 2.1 mg/dL (1.6-2.3); Potassium 4.5 mmol/L (3.4-5.0); Sodium 127 mmol/L (137-145)
--- NOTE | 2025-01-24 15:10 | P.PNIM_ITS ---
Progress Note: A&P Assessment and Plan (1) Syncope: Code(s): R55 - Syncope and collapse Status: Acute Assessment and Plan: Patient's last hospital admission for syncope was on 12/19/2024. Echo with bubble study from the hospitalization shows no visualization of bubbles and right ventricle, MRI with no acute findings, CTA with less than 50% stenosis of the left vertebral artery, 0% of right and left carotid bulb. Case management called for placement CT head negative for acute finding PT OT evaluate and treat Orthostatic vital signs negative (2) Hypertension: Code(s): I10 - Essential (primary) hypertension Status: Acute Assessment and Plan: Continue losartan and amlodipine (3) Atrial fibrillation: Code(s): I48.91 - Unspecified atrial fibrillation Status: Acute Assessment and Plan: Rate controlled Continue aspirin (4) Hyperlipidemia: Code(s): E78.5 - Hyperlipidemia, unspecified Status: Chronic Assessment and Plan: Continue Lipitor (5) BPH (benign prostatic hyperplasia): Code(s): N40.0 - Benign prostatic hyperplasia without lower urinary tract symptoms Status: Acute (6) COPD (chronic obstructive pulmonary disease): Code(s): J44.9 - Chronic obstructive pulmonary disease, unspecified Status: Acute Assessment and Plan: Continue inhaler Plan Currently patient is sitting in the chair eating his lunch, his daughter is present in the concern about the patient dementia and dibility as he not able to function himself, will have patient participate with PT/OT, patient will benefit going to rehab to gain physical strength, patient will work with PT/OT and further recommendation to follow. This morning patient is eating his breakfast and stats doing well does not have any complaints of CP or palpitation, plan was to discharge patient to SNF today however patient had several episodes for Vtech runs 7 to 12 beats, most likely electrolytes imbalance, will monitor, K and Mg, will monitor over night and plan tomorrow. Subjective Date/time seen: 01/24/25 15:10 Interval history: Syncope Narrative: 89-year-old with past medical history of atrial fibrillation, COPD, hypertension, dementia and syncope from unknown cause presents the hospital after a syncopal event. Patient states that he does want me admitted to the hospital because he has had plenty of workup for syncope and no cause has been found. Patient's last hospital admission for syncope was on 12/19/2024. Echo with bubble study from the hospitalization shows no visualization of bubbles and right ventricle, MRI with no acute findings, CTA with less than 50% stenosis of the left vertebral artery, 0% of right and left carotid bulb. Daughter is worried about patient's safety and would like him to have placement. Case management unable place patient from ED. HPI is limited as patient is extremely hard of hearing and does not have his hearing aids. Lab work shows sodium 133, BUN of 22, troponin negative, UA negative for infec tion, chest x-ray with no acute findings, head CT negative for acute finding. Currently patient is sitting in the chair eating his lunch, his daughter is present in the concern about the patient dementia and dibility as he not able to function himself, will have patient participate with PT/OT, patient will benefit going to rehab to gain physical strength, patient will work with PT/OT and further recommendation to follow. This morning patient is eating his breakfast and stats doing well does not have any complaints of CP or palpitation, plan was to discharge patient to SNF today however patient had several episodes for Vtech runs 7 to 12 beats, most likely electrolytes imbalance, will monitor, K and Mg, will monitor over night and plan tomorrow. Review of Systems Review of Systems: 12 systems were reviewed and are negativ e except for as per HPI. Exam Narrative: Elderly frail Patient is comfortable, NAD HEENT: eyes are clear and none icteric LUNGS:CTA HEART: RR S1S2 ABD: BS+, Soft and nontender Lower extremities: no edema SKIN: nonjaundiced Neuro: grossly intact. Objective Data Vital Signs Vital Signs: Vital Signs - 24 hr 01/23/25 16:00 01/23/25 20:00 01/23/25 20:00 Temperature Pulse Rate 82 86 Respiratory Rate Blood Pressure Pulse Oximetry Oxygen Delivery Room Air 01/23/25 21:00 01/23/25 22:14 01/24/25 00:00 Temperature 35.9 C L Pulse Rate 73 72 Respiratory Rate 18 Blood Pressure 157/67 H Pulse Oximetry 95 95 Oxygen Delivery Room Air 01/24/25 04:00 01/24/25 05:40 01/24/25 09:15 Temperature 36.0 C L Pulse Rate 82 71 Respiratory Rate 20 Blood Pressure 140/97 H Pulse Oximetry 97 Oxygen Delivery Room Air Intake/Output Intake/Output: Intake & Output 01/21/25 01/22/25 01/23/25 01/24/25 23:59 23:59 23:59 23:59 Intake Total 0 6370 1580 Output Total 400 1100 Balance -400 5270 1580 Meds/Results Medications: Active Medications Generic Name Dose Route Start Last Admin Trade Name Freq PRN Reason Stop Dose Admin Acetaminophen 650 mg 01/22/25 15:29 Acetaminophen 325 Mg Tablet PO Q4H PRN Mild Pain (1-3) or Fever Hydrocodone Bitart/Acetaminophen 1 tab 01/22/25 15:29 Hydrocodone/Acetaminophen (*Crx) 5-325 Mg Tablet PO Q4H PRN Moderate Pain (4-6) Albuterol 2 puff 01/22/25 19:19 Albuterol Sulfate (*Sp) Aerosol 1 Puff INHALATION Q4-6H PRN shortness of breath or wheezing Amlodipine Besylate 5 mg 01/23/25 09:00 01/24/25 09:16 Amlodipine Besylate 5 Mg Tablet PO 5 mg DAILY CONNIE Administration Aspirin 81 mg 01/23/25 09:00 01/24/25 09:16 Aspirin 81 Mg Enteric Tablet PO 81 mg DAILY CONNIE Administration Atorvastatin Calcium 20 mg 01/23/25 09:00 01/24/25 09:16 Atorvastatin 20 Mg Tablet PO 20 mg DAILY CONNIE Administration Buspirone HCl 5 mg 01/22/25 21:30 01/24/25 09:17 Buspirone Hcl 5 Mg Tablet PO 5 mg Q12HR CONNIE Administration Docusate Sodium 100 mg 01/22/25 17:00 01/24/25 09:16 Docusate Sodium 100 Mg Capsule PO 100 mg BID CONNIE Administration Sodium Chloride 1,000 mls @ 125 mls/hr 01/22/25 15:35 01/24/25 12:41 Normal Saline Iv IV CONT 125 mls/hr .Q8H CONNIE Administration Losartan Potassium 50 mg 01/23/25 09:00 01/24/25 09:17 Losartan Potassium 50 Mg Tablet PO 50 mg DAILY CONNIE Administration Polyethylene Glycol 17 gm 01/23/25 09:00 01/24/25 09:17 Polyethylene Glycol 3350 17 Gm Powd.Pack PO Not Given QAM [facility] [place] Radiology Results: ITS Impressions Chest X-Ray 01/22/25 13:37 IMPRESSION: No acute process. Head CT 01/22/25 16:44 Impression: No acute intracranial hemorrhage or suspicious mass effect. Labs Labs: Laboratory Results - last 24 hr 01/24/25 01/24/25 04:28 14:02 Sodium 131 L 127 L Potassium 4.2 4.5 Chloride 103 98 Carbon Dioxide 20 L 22 Anion Gap 8 7 BUN 15 17 Creatinine 0.83 0.93 Estim Creat Clear Calc 45 41 Estimated GFR > 60 > 60 Glucose 110 122 H Calcium 9.3 9.1 Magnesium 1.7 2.1 Quality VTE Prophylaxis VTE prophylaxis: mechanical ordered
[2025-01-25] VITALS: PULSE 70
[2025-01-25 04:00] VITALS: PULSE 61
[2025-01-25 05:00] VITALS: BP 98/73; PULSE 72; RESP 16; TEMP 36.6; O2SAT 96
[2025-01-25] MEDS: SODIUM CHLORIDE 0.9% IV 1,000 ML 125 ML IV CONT (05:10)
[2025-01-25 06:46] LABS: Anion Gap 5 mmol/L (4-12); Blood Urea Nitrogen 15 mg/dL (9-20); Calcium 8.5 mg/dL (8.4-10.2); Carbon Dioxide 21 mmol/L (22-30); Chloride 100 mmol/L (98-107); Estimated CRCL calculation 47 ml/min; Estimated Glomerular Filt Rate > 60; Glucose 109 mg/dL (65-110); Magnesium 1.8 mg/dL (1.6-2.3); Potassium 3.8 mmol/L (3.4-5.0); Sodium 126 mmol/L (137-145)
[2025-01-25 08:00] VITALS: PULSE 67; O2SAT 97
[2025-01-25] MEDS: ATORVASTATIN 20 MG TABLET PO (08:24)
[2025-01-25] MEDS: DOCUSATE SODIUM 100 MG CAPSULE PO (08:28)
[2025-01-25] MEDS: ASPIRIN 81 MG ENTERIC TABLET PO (08:28)
[2025-01-25 08:30] VITALS: BP 191/83; PULSE 77; RESP 16; O2SAT 97
[2025-01-25] MEDS: LOSARTAN POTASSIUM 50 MG TABLET PO (08:34)
--- NOTE | 2025-01-25 11:14 | P.DS_ITS ---
DS: Admitting Diagnosis Discharge Date 01/25/25 Admitting Diagnosis Syncope DS: Discharge Diagnosis Discharge Diagnosis (1) Syncope: Code(s): R55 - Syncope and collapse Status: Acute Assessment and Plan: Patient's last hospital admission for syncope was on 12/19/2024. Echo with bubble study from the hospitalization shows no visualization of bubbles and right ventricle, MRI with no acute findings, CTA with less than 50% stenosis of the left vertebral artery, 0% of right and left carotid bulb. Case management called for placement CT head negative for acute finding PT OT evaluate and treat Orthostatic vital signs negative (2) Hypertension: Code(s): I10 - Essential (primary) hypertension Status: Acute Assessment and Plan: Continue losartan and amlodipine (3) Atrial fibrillation: Code(s): I48.91 - Unspecified atrial fibrillation Status: Acute Assessment and Plan: Rate controlled Continue aspirin (4) Hyperlipidemia: Code(s): E78.5 - Hyperlipidemia, unspecified Status: Chronic Assessment and Plan: Continue Lipitor (5) BPH (benign prostatic hyperplasia): Code(s): N40.0 - Benign prostatic hyperplasia without lower urinary tract symptoms Status: Acute (6) COPD (chronic obstructive pulmonary disease): Code(s): J44.9 - Chronic obstructive pulmonary disease, unspecified Status: Acute Assessment and Plan: Continue inhaler Plan Currently patient is sitting in the chair eating his lunch, his daughter is present in the concern about the patient dementia and dibility as he not able to function himself, will have patient participate with PT/OT, patient will benefit going to rehab to gain physical strength, patient will work with PT/OT and further recommendation to follow. This morning patient is eating his breakfast and stats doing well does not have any complaints of CP or palpitation, plan was to discharge patient to SNF today however patient had several episodes for Vtech runs 7 to 12 beats, most likely electrolytes imbalance, will monitor, K and Mg, will monitor over night and plan tomorrow. DS: Summary Hospital Course Hospital Course: Currently patient is sitting in the chair eating his lunch, his daughter is present in the concern about the patient dementia and dibility as he not able to function himself, will have patient participate with PT/OT, patient will benefit going to rehab to gain physical strength, patient will work with PT/OT and further recommendation to follow. This morning patient is eating his breakfast and stats doing well does not have any complaints of CP or palpitation, plan was to discharge patient to SNF today however patient had several episodes for Vtech runs 7 to 12 beats, most likely electrolytes imbalance, will monitor, K and Mg, will monitor over night and plan tomorrow. today patient is clinically stable, and does not have any complaints. Time Spent with Patient Time attestation: Total time spent providing and/or coordinating discharge services: Exam Narrative: Elderly frail Patient is comfortable, NAD HEENT: eyes are clear and none icteric LUNGS:CTA HEART: RR S1S2 ABD: BS+, Soft and nontender Lower extremities: no edema SKIN: nonjaundiced Neuro: grossly intact. DS: Data Data Completed and Pending Labs on day of discharge: Labs from last 24 hours 01/25/25 01/24/25 05:58 14:02 Sodium 126 L 127 L Potassium 3.8 4.5 Chloride 100 98 Carbon Dioxide 21 L 22 Anion Gap 5 7 BUN 15 17 Creatinine 0.80 0.93 Estim Creat Clear Calc 47 41 Estimated GFR > 60 > 60 Glucose 109 122 H Calcium 8.5 9.1 Magnesium 1.8 2.1 Discharge Plan Discharge Attending physician on discharge: Guy Seay Consulting providers: Laura Chavis; Leo Beck; Roseanne Gilliam; Jose Shaw Discharging Clinician: Guy Seay Patient Disposition: SNF Activity: as tolerated Diet: heart healthy Discharge Instructions: patient to follow up with his primary care provider as soon as possible. please monitor patient electrolytes per your protocols Patient Instructions: Antibiotic Form Patient Language: Sami Stand Alone Forms: General Discharge Information Follow-up/Referrals: Mely Gupta NP [Primary Care Provider] - Discharge Medications: New buspirone 5 mg Tablet 5 mg PO Q12HR Qty: 60 0RF docusate sodium 100 mg Capsule 100 mg PO BID Qty: 30 0RF Continued aspirin 81 mg tablet,delayed release (DR/EC) 81 mg PO DAILY polyethylene glycol 3350 [Miralax] 17 gram Powder In Packet 17 g PO QAM Qty: 7 0RF amlodipine 5 mg tablet 5 mg PO DAILY Qty: 30 0RF fluticasone propionate [Flonase Allergy Relief] 50 mcg/actuation spray,suspension 1 spray intranasal BID Qty: 16 0RF Rx Instructions: administer into each nostril atorvastatin [Lipitor] 40 mg tablet 20 mg PO DAILY losartan 100 mg Tablet 50 mg PO DAILY albuterol sulfate 90 mcg/actuation HFA aerosol inhaler 1 - 2 inh inhalation Q4-6H PRN (Reason: shortness of breath or wheezing) Qty: 8.5 2RF mupirocin [Centany] 2 % ointment 1 applic topical BID PRN (Reason: wound care) Qty: 22 5RF Date of admission: 01/22/25 15:33 Primary Care Provider: Mely Gupta Admitting Provider: Guy Seay Attending physician on admission: Guy Seay Condition: Stable
[2025-01-25 12:00] VITALS: PULSE 68
== END 2025-01-25 13:50 ==
LOC: ANHED 15:30 → ANH3MEDSUR 16:29
PROVIDERS: General Practice; Nurse Practitioner Gerontology; Admitting Provider Family Medicine; Emergency Provider Emergency Medicine; PCP Nurse Practitioner Family; Visit Provider Family Medicine
DX: R55 Syncope and collapse (principal); I10 Essential (primary) hypertension; I48.91 Unspecified atrial fibrillation; E78.5 Hyperlipidemia, unspecified; N40.0 Benign prostatic hyperplasia without lower urinary tract symptoms; J44.9 Chronic obstructive pulmonary disease, unspecified; F03.90 Unspecified dementia, unspecified severity, without behavioral disturbance, psychotic disturbance, mood disturbance, and anxiety; R53.81 Other malaise; Z75.1 Person awaiting admission to adequate facility elsewhere; Z79.82 Long term (current) use of aspirin; Z79.899 Other long term (current) drug therapy; Z87.891 Personal history of nicotine dependence; Z90.49 Acquired absence of other specified parts of digestive tract; Z95.820 Peripheral vascular angioplasty status with implants and grafts
CPT/HCPCS: 36415; 70450; 71045; 80048; 80053; 81003; 83735; 84484; 85025; 93005; 96361; 96374; 96375; 97162; 97165; 97535; 99285; A9270; G0378; J2405; J3475; J7030

== ENCOUNTER 2025-03-04 10:50 | Emergency (ER) | payer OTHER, SELFPAY ==
[2025-03-04 10:59] VITALS: BP 173/71; PULSE 78; RESP 20; TEMP 36.3; O2SAT 94
--- NOTE | 2025-03-04 11:12 | ED.MALEGU ---
HPI - Male Genitourinary General Chief complaint: Urogenital-Male Stated complaint: uti symptoms Time Seen by Provider: 03/04/25 11:12 Source: patient and family Mode of arrival: ambulatory Limitations: no limitations History of Present Illness HPI Narrative: 89 yo M presents with daughter with concern for UTI. No urinary symptoms. Daughter reports hx of 3 UTIs in past year. Was in hospital about month ago for UTI. Daughter states in and out of hospital and rehab and now has been at [facility]. Daughter states still adjusting to all the changes. Last night called daughter around 2am stating that he was hungry. Had walked down to cafeteria but doors were locked. Has snacks in his room but none that he wanted to eat. Pt was then able to go to bed. Pt remembered this morning that he had called his daughter. Went to breakfast. daughter concerned that pt was confused last night and getting another UTI. Pt is alert and talkative. Ambulatory with walker. All systems reviewed and negative except as noted above. Related Data Home Medications ?Medication ?Instructions ?Recorded ?Confirmed ?Last Taken ?Type aspirin 81 mg tablet,delayed 81 mg PO DAILY 12/12/21 01/22/25 02/16/22 History release atorvastatin 40 mg tablet (Lipitor) 20 mg PO DAILY 01/22/25 01/22/25 Unknown History losartan 100 mg tablet 50 mg PO DAILY 01/22/25 01/22/25 Unknown History Allergies Allergy/AdvReac Type Severity Reaction Status Date / Time No Known Allergies Allergy Verified 03/04/25 11:09 [facility] Past Medical History Medical History Lumbar radiculopathy Lumbar spondylosis Peripheral vascular disease Chronic obstructive pulmonary disease Benign prostatic hyperplasia Depression Seasonal allergies Anemia Hypertension Atrial fibrillation Anxiety Constipation Dementia Hyperlipidemia Surgical History Surgical History Status post peripheral artery angioplasty with insertion of stent History of cholecystectomy Family History Family History Other Unknown family medical history Social History Social History Social History: Healthcare power of erisa attorney: Roseanne Noguera. Code status: Smoking packs per day: 1 Smoking cigarettes per day: 20.0 Smoking status: Former smoker Alcohol intake: current Drinks per week: 1 Substance use: never Substance use type: does not use Do You Feel Safe in your Home?: Yes Lack of Transportation: No Lack of Food: Never True Current Housing: I Have Housing Concerned About Future Housing: No Difficulty Paying Gas/Electric Bills: No Difficulty Paying for Meds: No Currently Unemployed: No Education: Grade School Difficulty w/ Childcare or Family Care: No Spiritual care concerns: No Comments At time of signature, agree with nursing past medical, surgical, social and family history. There is no relevant family history pertinent to the presenting complaint. Exam Narrative: GENERAL: This is a well-nourished, well-developed patient, in no apparent distress. HEAD: normocephalic, atraumatic. EYES: PERRL. Sclera clear/white. Vision is grossly intact. EARS: External ears normal, auditory canals clear and without drainage, TMs normal without perforation. Hearing grossly intact. NOSE: External nose normal with no obvious nasal discharge, nares without redness, no rhinorrhea. THROAT: Mucous membranes moist, posterior pharynx clear. NECK: Neck supple, non-tender without lymphadenopathy, masses or thyromegaly. CARDIOVASCULAR: Regular rate and rhythm without murmurs, gallops, or rubs. RESPIRATORY: Clear to auscultation. Breath sounds equal bilaterally. No wheezes, rales, or rhonchi. SKIN: warm, Dry, intact with no suspicious lesions or rash, good texture and turgor. NEURO: awake, alert, and oriented to person, place and time. There were no obvious focal neurologic abnormalities. Equal splitter head. No arm drift. No facial droop. EXTREMITIES: No joint tenderness, effusion, or edema noted. Course Course Level of Care: Express Care Visit Vital Signs Vital signs: Vital Signs Temperature 36.3 C L 03/04/25 10:59 Pulse Rate 78 03/04/25 10:59 Respiratory Rate 03/04/25 10:59 Blood Pressure 173/71 H 03/04/25 10:59 Pulse Oximetry 94 03/04/25 10:59 Oxygen Delivery Room Air 03/04/25 10:59 Temperature 36.3 C L 03/04/25 10:59 Pulse Rate 78 03/04/25 10:59 Respiratory Rate 03/04/25 10:59 Blood Pressure 173/71 H 03/04/25 10:59 Pulse Oximetry 94 03/04/25 10:59 Oxygen Delivery Room Air 03/04/25 10:59 Reviewed MDM - Male Genitourinary MDM Narrative Medical decision making narrative: urinalysis normal. Due to daughter's concern for urinary tract infection patient has history of UTI will order urine culture. Patient denies having any urinary symptoms. Patient neurovascularly intact, at baseline. Patient is aware that he called his daughter early this morning complaining that he was hungry. Does remember walking down to cafeteria. Does not appear to have any confusion about the event at this time. No complaints of pain. Has appointment with his primary care physician for follow-up. Daughter will take patient to ER for any worsening of symptoms. Lab Data Labs: Lab Results 03/04/25 Range/Units 11:07 POC Urine Color Yellow POC Urine Clarity Clear POC Urine pH 5.5 POC Ur Specif Clyde 1.020 POC Urine Protein Negative (Negative) POC Ur Glucose (UA) Negative (Negative) POC Urine Ketones Negative (Negative) POC Urine Blood Negative (Negative) POC Urine Nitrite Negative (Negative) POC Urine Bilirubin Negative (Negative) POC Urine Urobilinogen 1.0 POC U Leukocyte Esteras Negative (Negative) Discharge Plan Discharge Clinical Impression: Well adult health check Patient Disposition: Home Condition: Stable Instructions: General Patient Instructions Additional Instructions: Noé's urinalysis was normal today. Continue to drink plenty of water. If Noé continues to have issues waking up at night and having trouble sleeping, speak with his primary care physician. If he had severe pain, confusion, change in speech, change in vision, weakness to a extremity go to the ER. Patient Language: Cymraes Prescriptions: No Action aspirin 81 mg tablet,delayed release (DR/EC) 81 mg PO DAILY polyethylene glycol 3350 [Miralax] 17 gram Powder In Packet 17 g PO QAM Qty: 7 0RF amlodipine 5 mg tablet 5 mg PO DAILY Qty: 30 0RF fluticasone propionate [Flonase Allergy Relief] 50 mcg/actuation spray,suspension 1 spray intranasal BID Qty: 16 0RF Rx Instructions: administer into each nostril atorvastatin [Lipitor] 40 mg tablet 20 mg PO DAILY losartan 100 mg Tablet 50 mg PO DAILY buspirone 5 mg Tablet 5 mg PO Q12HR Qty: 60 0RF docusate sodium 100 mg Capsule 100 mg PO BID Qty: 30 0RF Follow-up/Referrals: Mely Gupta NP [Primary Care Provider, [facility]] Time of Disposition: 11:29
[2025-03-04 11:16] LABS: EDUAAPPEAR Clear; EDUABILI Negative (Negative); EDUABLOOD Negative (Negative); EDUACOLOR1 Yellow; EDUAGLUCOSE Negative (Negative); EDUAKETONE Negative (Negative); EDUALEUKO Negative (Negative); EDUANITRATE Negative (Negative); EDUAPH 5.5; EDUAPROTEIN Negative (Negative); EDUASPGRAVITY 1.020; EDUAUROBILI 1.0
== END 2025-03-04 11:34 | disposition home or self-care (01) ==
PROVIDERS: Emergency Provider Nurse Practitioner Family; PCP Nurse Practitioner Family
DX: Z71.1 Person with feared health complaint in whom no diagnosis is made (principal); I73.9 Peripheral vascular disease, unspecified; J44.9 Chronic obstructive pulmonary disease, unspecified; N40.0 Benign prostatic hyperplasia without lower urinary tract symptoms; I10 Essential (primary) hypertension; I48.91 Unspecified atrial fibrillation; F03.90 Unspecified dementia, unspecified severity, without behavioral disturbance, psychotic disturbance, mood disturbance, and anxiety; E78.5 Hyperlipidemia, unspecified; Z79.82 Long term (current) use of aspirin; F41.9 Anxiety disorder, unspecified; F32.A Depression, unspecified; Z95.820 Peripheral vascular angioplasty status with implants and grafts
CPT/HCPCS: 81003; 87086; 99211; G0463

== ENCOUNTER → 2025-03-24 09:44 | Outpatient (CLI) | payer OTHER, SELFPAY ==
--- NOTE | ~2025-03-24 | XR_ITS ---
EXAMINATION: XR chest 2V, 03/24/2025 9:46 CDT HISTORY: R06.02 - Shortness of breath COMPARISON: No comparisons available. Technique: 2 views obtained. Findings: The lungs are clear, no effusion. No pneumothorax. Heart is normal size. Mediastinal and hilar contours are within normal limits. Bony thorax no acute abnormality. Impression: No acute cardiopulmonary abnormality. Reviewed, dictated and finalized at location A. Impression: No acute cardiopulmonary abnormality.
--- OUTSIDE RECORDS SUMMARY | 2025-03-24 10:32 | XMS_ITS | Clinical Summary ---
Author Organization [facility] Address [address] [place] [address] Care Team Providers Care Parcel Post Carrier Name Role Phone Miller Mcmanus MD Primary Care Provider [phone] Allergies No known active allergies Medications aspirin 81 mg chewable tablet Take 1 tablet (81 mg total) by mouth nightly 90 tablet 3 1 Active albuterol HFA (PROVENTIL HFA,VENTOLIN HFA,PROAIR HFA) 90 mcg/actuation inhaler Inhale 2 puffs every 6 (six) hours as needed 2 Active docusate sodium (COLACE) 50 mg capsuleIndicati ons:constipatio n Take by mouth 2 (two) times a day as needed for constipation Active rivaroxaban (XARELTO) 15 mg tablet Take 1 tablet (15 mg total) by mouth daily 90 tablet 3 5 Active amLODIPine (NORVASC) 5 mg tablet Take 1 tablet every day by oral route. 5 Active busPIRone (BUSPAR) 5 mg tablet Take 1 tablet every 12 hours by oral route as needed. 5 Active cephalexin (KEFLEX) 500 mg capsule 5 Active clopidogreL (PLAVIX) 75 mg tablet Take 1 tablet every day by oral route. 5 Active fluticasone propionate (FLONASE) 50 mcg/actuation nasal spray Effort 1 spray twice a day by intranasal route. 5 Active guaiFENesin ER (MUCINEX) 600 mg 12 hr tablet Take 1 tablet every 12 hours by oral route for 5 days. Active ipratropium (ATROVENT) 21 mcg (0.03 %) nasal spray Effort 2 sprays every 8 hours by intranasal route as needed. Active mupirocin (BACTROBAN) 2 % ointment APPLY OINTMENT TOPICALLY TWICE DAILY NEEDED FOR WOUND CARE Active atorvastatin (LIPITOR) 40 mg tablet Take 1 tablet (40 mg total) by mouth daily 5 Active doxazosin (CARDURA) 1 mg tablet Take 1 tablet (1 mg total) by mouth daily 5 Active losartan (COZAAR) 100 mg tablet Take 1.5 tablets (150 mg total) by mouth daily Active metoprolol XL (TOPROL-XL) 50 mg extended release tablet Take 1 tablet (50 mg total) by mouth daily 30 tablet 11 5 01/30/20 Active Active Problems Problem Noted Date Diagnosed [...] (09/21/2020 11:17 AM CDT): Will fill out seasonal delivery driver form as I don't feel [...] ordered Assessment & Plan (07/28/2020 9:42 AM PARAMEDICAL AIDE): Likely related to uncontrolled allergies, though [...] others. Assessment & Plan (05/06/2020 11:31 PM PARAMEDICAL AIDE): Unsure exact cause. Depression vs nutrition vs dehydration vs possible parkinsons?? Consult ACO He is recently less than 2 years ago. No family or friend support. Probable poor nutrition. Difficulty getting him to take meds as intended. Frequent falls 05/06/2020 Assessment & Plan (11/03/2020 12:12 PM CDT): Pt refuses cane or walker for ambulation. Assessment & Plan (05/06/2020 11:40 PM PARAMEDICAL AIDE): Refuses neuro or PT consult. I think he falls more from flexing his neck versus position changes, stumbling, or orthostasis. During the office visit that took at least 40 minutes, I spent over 50% of the time either counseling, educating, discussing plan of treatment, or answering questions today. Tremor, unspecified 05/06/2020 Assessment & Plan (05/06/2020 11:33 PM PARAMEDICAL AIDE): Refuses consult with neuro or anything that might cost him money. Trial Requip (ropinirole) 0.25mg tid. Consult ACO Illiteracy 05/06/2020 Weight loss 01/26/2020 Assessment & Plan (07/28/2020 7:23 PM PARAMEDICAL AIDE): Stable with Mirtazapine. Will increase the Mirtazapine to 30mg today. Assessment & Plan (05/06/2020 11:37 PM PARAMEDICAL AIDE): Possible improvement with Mirtazapine (if he [...] 8:55 AM CDT): Will refill Cardura to [facility] program. Hopefully this will allow patient to easy to access his medications. Will also order home health for social work and nursing services. With his blood pressure a elevated he likely needs a nurse to check this and assist him with medications. He is not cognitively aware enough to do this himself. Assessment & Plan (07/28/2020 7:26 PM PARAMEDICAL AIDE): Will increase the doxazosin from 1 [...] readings. Assessment & Plan (07/28/2019 11:16 PM PARAMEDICAL AIDE): New diagnosis. Start doxazosin (Cardura) for combined benefit of HTN and BPH. Call back with update in 2-3 weeks and blood pressure readings if possible. Chronic rhinitis 07/28/2019 Assessment & Plan (07/28/2019 11:20 PM PARAMEDICAL AIDE): Start Flonase (fluticasone). Demonstrated use. Hearing difficulty of both ears 12/18/2018 Assessment & Plan (07/28/2020 7:45 PM PARAMEDICAL AIDE): Tried to clean out ears today. Assessment & Plan (01/26/2020 11:12 AM CDT): Did not go to audiology due to cost. Assessment & Plan (12/18/2018 9:24 PM CDT): Audiology consult. 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 LDL is controlled well. Prediabetes 06/18/2017 Assessment & Plan (07/28/2020 7:21 PM PARAMEDICAL AIDE): Will check new labs and make adjustments if needed. Assessment & Plan (01/26/2020 11:07 AM CDT): Will recheck fasting glucose today. Assessment & Plan (07/28/2019 11:16 PM PARAMEDICAL AIDE): Get new labs Assessment & Plan (12/18/2018 9:23 PM CDT): Lower carb diet recommended. Assessment & Plan (06/18/2017 1:26 PM PARAMEDICAL AIDE): Please cut down on sweets. Chronic idiopathic constipation 12/13/2016 Assessment & Plan (07/28/2020 7:21 PM PARAMEDICAL AIDE): Chronic & stable on meds. Continue [...] Lipitor. Assessment & Plan (07/28/2020 7:43 PM PARAMEDICAL AIDE): Chronic & stable on meds. Continue current treatment. Assessment & Plan (01/26/2020 11:06 AM CDT): Stop rosuvastatin and start atorvastatin 20mg due to cost. Check labs today. Assessment & Plan (07/28/2019 11:20 PM PARAMEDICAL AIDE): Get updated labs soon. Assessment & Plan (12/18/2018 9:23 PM CDT): Chronic & stable on meds. Continue current treatment. Assessment & Plan (06/18/2018 2:20 PM PARAMEDICAL AIDE): Chronic & stable on meds. Continue current treatment. Assessment & Plan (03/29/2018 1:48 PM CDT): LDL was 69 on 12/10/2017. Continue Mevacor treatment Assessment & Plan (12/17/2017 9:41 PM CDT): Chronic & stable on meds. Continue current treatment. Assessment & Plan (06/18/2017 1:26 PM PARAMEDICAL AIDE): Chronic & stable on meds. Continue [...] pharmacy Assessment & Plan (07/28/2020 7:38 PM PARAMEDICAL AIDE): Increase the Mirtazapine to 30mg daily and stop the Amitriptyline 10 mg daily, especially since he has constipation. Assessment & Plan (05/06/2020 11:37 PM PARAMEDICAL AIDE): Patient symptomatic and not sure if [...] treatment. Assessment & Plan (06/18/2018 2:20 PM PARAMEDICAL AIDE): Chronic & stable on meds. Continue current treatment. Assessment & Plan (06/18/2017 1:26 PM PARAMEDICAL AIDE): Chronic & stable on meds. Continue [...] 02/15/2015 Assessment & Plan (07/28/2020 7:42 PM PARAMEDICAL AIDE): Stable with out prescription medication. He [...] treatment. Assessment & Plan (06/18/2018 2:20 PM PARAMEDICAL AIDE): Stable without regular use of inhalers. [...] medication(s) Assessment & Plan (07/28/2020 7:41 PM PARAMEDICAL AIDE): Increase the doxazosin from 1 mg to 2 mg. Assessment & Plan (01/26/2020 11:09 AM CDT): Patient only took the doxazosin a couple times. Stop completely due to not taking it regularly and some lightheadedness when standing. Assessment & Plan (07/28/2019 11:16 PM PARAMEDICAL AIDE): Start doxazosin (Cardura). Patient opted out of getting PSA testing at this time. 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 Encounter for Medicare [...] 12/18/19 Assessment & Plan (06/18/2017 1:20 PM PARAMEDICAL AIDE): These look like a type of [...] draws. Assessment & Plan (06/18/2018 2:20 PM PARAMEDICAL AIDE): Chronic & stable on meds. Continue [...] INR Assessment & Plan (06/18/2017 1:27 PM PARAMEDICAL AIDE): Chronic & stable on meds. Continue [...] Description 01/09/2025 10:00 AM CDT Office Visit [facility] Medicine Surgery [address] [place] [id number] Ole Feldman MD Dizziness on standing (Primary Dx); Vertebral artery stenosis, unspecified laterality 01/08/2025 2:37 PM CDT - 01/08/2025 11:59 PM CDT Hospital Encounter [facility] [address] [place] [id number] Discharge Disposition: Discharge to home or self care 12/30/2024 4:24 PM CDT - 12/30/2024 11:59 PM CDT Hospital Encounter [facility] [address] [place] [id number] Discharge Disposition: Discharge to home or self care from Last 3 Months Immunizations Immunization Administration [...] fibrillation (HCC) COPD (chronic obstructive pulmonary disease) Mixed conductive and sensorineural hearing loss Family History Medical History Relation Name Comments Heart disease Father Heart disease; Relation Name Status Comments Father Social History Tobacco Use Types Packs/Day Years Used Date Smoking Tobacco: Former Cigarettes Smokeless Tobacco: Former Tobacco Cessation:Counseling Given: Not Answered Alcohol Use Standard Drinks/Week Comments Yes 0 (1 standard drink = 0.6 oz pur e alcohol) Social Connection and Isolation Panel Answer Date Recorded In a typical week, [...] any clubs o r organizations such as sabianism groups, unions, fraternal or athletic groups, or [...] slept in a snf (including now)? 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 PARAMEDICAL AIDE Gender Identity Not on file Sexual Orientation Not on file Obstetrics History Last Filed Vital Signs Vital Sign Reading Time Taken Comments Blood Pressure 176/72 01/09/2025 9:41 AM CDT Pulse 76 01/09/2025 9:41 AM CDT Temperature 36.9 C (98.4 F) 07/28/2020 8:55 AM PARAMEDICAL AIDE Respiratory Rate 18 11/03/2020 9:16 AM [...] OUTSIDE REFERENCE Routine 12/30/2024 4:24 PM CDT from Last 3 Months Results * Neuro MR Outside Reference (01/08/2025 2:37 PM CDT) Impressions [facility] - 01/08/2025 2:37 PM CDT These images are for Reference purposes only and have not been reviewed by [facility] Radiology. There will be no report generated by a [facility] Radiologist. Narrative RAD_[facility] - 01/08/2025 2:37 PM CDT EXAMINATION: Images For Reference Purposes Only Ole Feldman MD [facility] MRI PROCEDURES Final Resul t Performing Organization Address [facility] Co de Phone Number RAD_[facility] * Neuro CT Outside Reference (12/30/2024 4:24 PM CDT) Impressions RAD_[facility] - 12/30/2024 4:24 PM CDT These images are for Reference purposes only and have not been reviewed by [facility] Radiology. There will be no report generated by a [facility] Radiologist. Narrative RAD_P[facility] - 12/30/2024 4:24 PM CDT EXAMINATION: Images For Reference Purposes Only Ole Feldman MD IM CT PROCEDURES Final Result Performing Organization Address City/[facility]/ZIP Co de Phone Number [facility] from Last 3 Months Insurance MEDICARE MEDICARE MEDICARE [facility] Advance Directives For more information, please contact: [phone] Documents on File Type Date Recorded Patient Risk Engineer Expl anation ADVANCE DIRECTIVE 09/16/2021 9:00 AM Power of Anthropology Instructor-Medical ADVANCE DIRECTIVE 06/23/2021 4:03 PM Annabel r of Anthropology Instructor-Medical ADVANCE DIRECTIVE 03/05/2019 10:13 AM POWER OF RN FIELD-MEDICAL ADVANCE DIRECTIVE 03/04/2019 2:22 PM POWER OF RN FIELD-MEDICAL Care Teams Parcel Post Carrier Relationship Specialty Start Date End Date Miller Mcmanus MD [address] [address] PCP - General Family Medicine 10/20/22
--- OUTSIDE RECORDS SUMMARY | 2025-03-24 10:32 | XMS_ITS | Clinical Summary ---
Author Organization [facility] Address [address] [place] [address] Phone Care Team Providers Care Director Home Name Role Phone Brandon Sandoval MD Primary Care Provider [phone] Allergies No known active allergies Medications aspirin [...] Comments Blood Pressure 166/90 08/08/2021 10:50 AM TAXIMETER REPAIRER Pulse 86 08/08/2021 10:50 AM TAXIMETER REPAIRER Temperature 37.1 C (98.8 F) 08/08/2021 10:50 AM TAXIMETER REPAIRER Respiratory Rate 16 08/08/2021 10:50 AM TAXIMETER REPAIRER Oxygen Saturation 95% 08/08/2021 10:50 AM TAXIMETER REPAIRER Inhaled Oxygen Concentration - - Weight 69.4 kg (153 lb 1.6 oz) 08/08/2021 10:50 AM TAXIMETER REPAIRER Height 181.9 cm (5' 11.6) 08/08/2021 10:[address] Body Mass Index 21 08/08/2021 10:50 AM TAXIMETER REPAIRER Plan of Treatment Health Maintenance Due Date Last Done Comments Hepatitis C Virus (HCV) Screening 1935 TdaP Immunization 1935 Pneumococcal Immunization (5 0+ years) (1 of 1 - PCV) 11/22/1985 Zoster Immunization (1 of 2) 11/22/1985 Respiratory Syncytial Virus (RSV) Immunization (Adult) (1 - 1-dose 75+ series) 11/22/2010 Influenza Immunization (#1) 2025 10/03/2022, 06/29/2021 SARS-COV-2 Immunization ( - season) 2025 Hepatitis B Immunization Aged Out No longer [...] Documents on File Type Date Recorded Patient Correctional Officer Chief Expl anation Power of Book Sewer for [facility] Care 06/29/2021 10:02 AM Care Teams Director Home Relationship Specialty Start Date End Date Brandon Sandoval MD PCP - General Internal Medicine 03/23/21
== END ==
PROVIDERS: PCP Nurse Practitioner Family; Visit Provider Nurse Practitioner Family
DX: R06.02 Shortness of breath (principal)
CPT/HCPCS: 71046

== ENCOUNTER 2025-04-15 19:16 | Observation (INO) | payer OTHER, MEDICAID, SELFPAY ==
[2025-04-15] VITALS (22 sets, daily range): BP systolic 79–172; BP diastolic 61–100; PULSE 74–101; RESP 14–29; TEMP 37; O2SAT 92–96
--- NOTE | ~2025-04-15 | CT_ITS ---
CTA chest PE abdomen pel HISTORY:Shortness of breath evaluate for PE, abdominal rosy . COMPARISON: None. TECHNIQUE: Following the noncontrasted charter school executive director, axial images of the thorax were obtained following infusion of 100 cc of Isovue 370. Post-processing on an independent workstation was performed to reconstruct MIP images for evaluation of the thoracic vasculature. FINDINGS: There is no pulmonary embolism, aortic dissection, thoracic aneurysm or pericardial fluid. Diffuse centrilobular emphysema noted. There is a 13.5 x 9.7 mm pulmonary nodule in the left lower lobe. Subpleural reticulation are noted. There is a intrafissural nodule within the right middle lobe measuring 5 mm. No pleural effusion or pneumothorax is noted. There is no axillary, mediastinal or hilar adenopathy. Review of bone windows demonstrates no osteoblastic or lytic lesions. IMPRESSION: There is no pulmonary embolism, aortic dissection, pericardial fluid or thoracic aneurysm. Emphysematous changes. 13.5 mm pulmonary nodule in the left lower lobe. CTA chest PE abdomen pel INDICATION:Shortness of breath evaluate for PE, abdominal rosy . COMPARISON: None. TECHNIQUE: Axial images of the abdomen and pelvis were obtained following infusion of 100 mL Isovue 370. Dose optimization technique was utilized. FINDINGS: The liver parenchyma is unremarkable. No intrahepatic mass or ductal dilatation is evident. The patient has had a cholecystectomy. The pancreas and spleen are normal in appearance. The adrenal glands are symmetric in size. The kidneys demonstrate symmetric uptake and excretion of contrast. No cystic mass is evident. There is no solid mass. There is no hydronephrosis. Evaluation of the stomach and bowel loops are limited due to lack of oral contrast. The appendix is not visualized however no secondary signs of appendicitis are identified. Bladder is distended. Lobulated enlarged prostate gland is noted. No free intraperitoneal fluid or air is evident. There is no significant retroperitoneal lymphadenopathy. The aorta, visceral vessels and renal arteries demonstrate normal caliber and patency. The lower thoracic and lumbar vertebrae are in normal alignment. IMPRESSION: No acute abnormality is noted in the abdomen and pelvis. Lobulated enlarged prostate gland is noted. Correlation with PSA is recommended. All CT scans at this facility are performed using low dose modulation techniques as appropriate to perform exam including the following: automated exposure control; use of iterative reconstruction technique; adjustment of the mA and/or kV according to patient size (this includes techniques or standardized protocols for targeted exams where dose is matched to indication/reason for exam). Reviewed, dictated and finalized at location S. IMPRESSION: There is no pulmonary embolism, aortic dissection, pericardial fluid or thoraci c aneurysm. Emphysematous changes. 13.5 mm pulmonary nodule in the left lower lobe. CTA chest PE abdomen pel INDICATION:Shortness of breath evaluate for PE, abdominal rosy . COMPARISON: None. TECHNIQUE: Axial images of the abdomen and pelvis were obtained following infu vickie of 100 mL Isovue 370. Dose optimization technique was utilized. FINDINGS: The liver parenchyma is unremarkable. No intrahepatic mass or ductal dilatation is evident. The patient has had a cholecystectomy. The pancreas and spleen are normal in appearance. The adrenal glands are symmetric in size. The kidneys demonstrate symmetric uptake and excretion of contrast. No cystic m ass is evident. There is no solid mass. There is no hydronephrosis. Evaluation of the stomach and bowel loops are limited due to lack of oral contr ast. The appendix is not visualized however no secondary signs of appendicitis are identified. Bladder is distended. Lobulated enlarged prostate gland is noted. No free intra peritoneal fluid or air is evident. There is no significant retroperitoneal ly mphadenopathy. The aorta, visceral vessels and renal arteries demonstrate normal caliber and p atency. The lower thoracic and lumbar vertebrae are in normal alignment. IMPRESSION: No acute abnormality is noted in the abdomen and pelvis. Lobulated enlarged prostate gland is noted. Correlation with PSA is recommended . All CT scans at this facility are performed using low dose modulation techniqu es as appropriate to perform exam including the following: automated exposure c ontrol; use of iterative reconstruction technique; adjustment of the mA and/or kV according to patient size (this includes techniques or standardized protocol s for targeted exams where dose is matched to indication/reason for exam).
--- NOTE | ~2025-04-15 | XR_ITS ---
XR chest 1V portable INDICATION:Shortness of breath . REFERENCE: None FINDINGS: A single AP of the chest demonstrates normal heart size. Emphysematous changes are present bilaterally. The lungs are clear. There is no evidence of pneumothorax or pleural effusion. IMPRESSION: No acute pulmonary findings. Reviewed, dictated and finalized at location S.
--- NOTE | 2025-04-15 20:18 | ECG_ITS ---
Test Date: 2025-04-15 20:35:25 Measurements Intervals Bradford Rate: 89 P: 73 MI: 170 QRS: -58 QRSD: 145 T: 44 QT: 377 QTc: 461 Interpretive Statements SINUS RHYTHM WITH OCCASIONAL SUPRAVENTRICULAR PREMATURE COMPLEXES RIGHT BUNDLE BRANCH BLOCK LEFT ANTERIOR FASCICULAR BLOCK BASELINE ARTIFACT- I, II, III, AVR, AVL, AVF, V1-V6 ABNORMAL ECG Compared to ECG 01/24/2025 04:10:56 NO SIGNIFICANT CHANGE Electronically Signed On 04-16-2025 05:10:52 CDT by López Ndiaye D.O.
[2025-04-15 20:43] LABS: Alveolar/Arterial O2 Gradient 58.2 mmHg; Fractional Inspired Oxygen 21 %; HCO3 ABG 21.2 mEq/l (22.0-26.0); Oxygen Content ABG 18.5 %vol (16.0-22.0); Oxygen Saturation ABG 92.1 % (95.0-100.0); PCO2 ABG 28.8 mmHg (35.0-45.0); PO2 ABG 57.0 mmHg (80.0-100.0); PO2 FiO2 Ratio Arterial Blood 2.71 %
[2025-04-15 20:49] LABS: Modified Allen's Test Pass; Site Drawn LEFT RADIAL
[2025-04-15 20:51] LABS: Hematocrit 40.1 % (42.0-52.0); Hemoglobin 13.8 g/dL (14.0-18.0); Immature Granulocyte Percent A 0.6 % (0-0.5); Lymphocytes Absolute Auto 0.44 K/mm3 (0.9-3.2); Mean Corpuscular HGB Conc 34.4 g/dl (32-36); Mean Corpuscular Hemoglobin 31.1 pg (26-34); Mean Corpuscular Volume 90.3 fl (80-100); Nucleated Red Blood Cells Absolute Auto 0.000 K/mm3 (0.0-0.012); Nucleated Red Blood Cells Perc 0.0 % (0.0-0.2); Platelet Count Result 241 k/mm3 (150-375); Red Blood Count 4.44 M/mm3 (4.6-6.20); White Blood Count 13.3 K/mm3 (4.5-10.0)
--- OUTSIDE RECORDS SUMMARY | 2025-04-15 21:01 | XMS_ITS | Clinical Summary ---
Author Organization [facility] Address [address] [place] [address] Phone Care Team Providers Care Preprint Analyst Name Role Phone Brandon Sandoval MD Primary Care Provider [phone] Allergies No known active allergies Medications aspirin [...] Comments Blood Pressure 166/90 08/08/2021 10:50 AM TEMPERER Pulse 86 08/08/2021 10:50 AM TEMPERER Temperature 37.1 C (98.8 F) 08/08/2021 10:50 AM TEMPERER Respiratory Rate 16 08/08/2021 10:50 AM TEMPERER Oxygen Saturation 95% 08/08/2021 10:50 AM TEMPERER Inhaled Oxygen Concentration - - Weight 69.4 kg (153 lb 1.6 oz) 08/08/2021 10:50 AM TEMPERER Height 181.9 cm (5' 11.6) 08/08/2021 10:[address] Body Mass Index 21 08/08/2021 10:50 AM TEMPERER Plan of Treatment Health Maintenance Due Date Last Done Comments Hepatitis C Virus (HCV) Screening 1935 TdaP Immunization 1935 Pneumococcal Immunization (5 0+ years) (1 of 1 - PCV) 11/22/1985 Zoster Immunization (1 of 2) 11/22/1985 Medicare Initial AWV [id number] 10/30/2001 Respiratory Syncytial Virus (RSV) Immunization (Adult) (1 - 1-dose 75+ series) 11/22/2010 Influenza Immunization (#1) 2025 1003/2022, 06/29/2021 SARS-COV-2 Immunization ( - season) 2025 [...] Documents on File Type Date Recorded Patient Alloy Weigher Expl anation Power of Molybdenum Steamer Operator for Health Care 06/29/2021 10:02 AM Care Teams Preprint Analyst Relationship Specialty Start Date End Date Brandon Sandoval MD PCP - General Internal Medicine 03/23/21
--- OUTSIDE RECORDS SUMMARY | 2025-04-15 21:02 | XMS_ITS | Data Portability ---
Author Organization [facility], Main Office Address [address] [place] [address] Care Team Providers Care Hat Body Sorter Name Role Phone P [facility] FAX OTHER MELY MELENDEZ Primary Care Provider [phone] Assessment Encounter Date Assessment Date Assessment LastModified by Organization Details LastModified Time 01/29/2025 01/29/2025 Add Breo inhaler daily for maintenance of COPD. Check orthostatics daily x 5 days. Need to recheck thyroid panel in mid-December. Need clarification of desired f/u with Dr. Don Albert (neuro) and Dr. Ole Feldman (vascular surgery). Not available 01/30/2025 09:57:51 02/02/2025 02/02/2025 Labs (CBC, BMP) on 02/03. Need clarification of desired f/u with Dr. Don Albert (neuro) and Dr. Ole Feldman (vascular surgery). Not available 02/02/2025 16:33:26 02/09/2025 02/09/2025 Labs on 02/11. Not available 02/09/2025 13:46:51 02/11/2025 02/11/2025 Pt will d/c to [facility] with [facility] on 02/12. Will need to recheck thyroid levels in mid-January. Not available 02/11/2025 16:44:31 Plan of Treatment Reminders Order Date Submit Date Provider Last Modified By Organization Details Last Modified Time Details Appointments None recorded. Lab None recorded. Referral None recorded. Procedures None recorded. Surgeries None recorded. Imaging None recorded. Medication Orders Breo Ellipta 100 mcg-25 mcg/dose powder for inhalation 2024 025 [facility], [address] [facility], [place], [address], 16:44:59 Patient TargetsNo targets recorded. Patient Instructions Encounter Date Encounter Id Patient Instructions Last Modified By Organization Details Last Modified Time 01/29/2025 [id number] I spent 37 minutes providing care to the patient today. More than 50% of that time was spent in discussing the expected course of the disease, discussing prognosis, coordinating care and counseling of the patient/family. [email or web address] Not available 01/30/2025 10:01:20 02/02/2025 [id number] I spent 34 minutes providing care to the patient today. More than 50% of that time was spent in discussing the expected course of the disease, discussing prognosis, coordinating care and counseling of the patient/family. Not available 02/02/2025 16:35:43 02/04/2025 [id number] I spent 36 minutes providing care to the patient today. More than 50% of that time was spent in discussing the expected course of the disease, discussing prognosis, coordinating care and counseling of the patient/family. Not available 02/04/2025 15:03:42 02/09/2025 [id number] I spent 36 minutes providing care to the patient today. More than 50% of that time was spent in discussing the expected course of the disease, discussing prognosis, coordinating care and counseling of the patient/family. Not available 02/09/2025 15:24:12 02/11/2025 [id number] I spent 37 minutes providing care to the patient today. More than 50% of that time was spent in discussing the expected course of the disease, discussing prognosis, coordinating care and counseling of the patient/family. The patient will be discharged home with home health orders of home health RN / PT / OT to evaluate and treat. The patient is homebound because of fall risk and is unable to leave home safely because requires considerable and taxing effort to leave home. The patient requires home health nursing for instruction, observation and assessment; PT for training to restore safe independent functional ambulation in community; and OT for training to improve ability to fulfill ADLs. Please follow-up with your primary care provider within 1 week. Call your primary care provider for instructions or go to the emergency room for new or worsening symptoms. Not available 02/11/2025 16:42:43 Reason for Referral None Reported. Results Created Date Observation Date Name Description Value Unit Range Abnormal Flag Note LastModifiedBy Organization Detail LastModifiedTime 01/29/20 25 01/28/2025 XR, chest , 2 view No observ ation record ed. [facility] [address], [place], [address], 01/29/2025 10:32:10 Result Notes None recorded. Procedures Surgical History Date Name Laterality Status Provider Name and Address Organization Details Recorded Time cholecystectomy completed Marianne Simmons [facility] 12/25/2024 12:33:19 insertion [place] [address] [facility], [place], [address], [facility] 12/25/2024 12:37:10 Imaging Results None recorded. Procedure Notes None recorded. Medical Equipment None Reported. Allergies No known drug allergies Medications Name Sig Start Date Stop Date Status Note LastModified by Organization Details LastModified Time losartan 50 mg tablet Take 1 tablet every day by oral route. 2024 active Not Available Not Available Not Avai lable buspirone 5 mg tablet Take 1 tablet twice a day by oral route. active Not Available Not Available No t Available atorvastati n 20 mg tablet Take 1 tablet every day by oral route. 2024 active Not Available Not Available Not Avai lable doxazosin 1 mg tablet Take 1 tablet every day by oral route. 01/01 completed Not Available Not Available Not Available benzonatate 200 mg capsule Take 1 capsule every 8 hours by oral route as needed. active Not Available Not Available No t Available Space Chamber To be used PRN with Ventolin Inhaler. active Not Available Not Available No t Available clopidogrel 75 mg tablet Take 1 tablet every day by oral route. 01/12 completed Not Available Not Available Not Available amlodipine 5 mg tablet Take 1 tablet every day by oral route. 2024 active Not Available Not Available Not Avai lable acetaminoph en 500 mg tablet Take 1 tablet every day by oral route at bedtime. 01/12 completed Not Available Not Available Not Available docusate sodium 100 mg capsule Take 1 capsule twice a day by oral route. active Not Available Not Available No t Available cephalexin 500 mg tablet Take 1 tablet twice a day by oral route for 4 days. 12/29 completed Stop Date: 12/28 Not Available Not Available Not Available aspirin 81 mg tablet Take 1 tablet every day by oral route. active Not Available Not Available No t Available mupirocin 2 % topical ointment Apply 1 applicati on twice a day by topical route as needed. 01/25 completed Not Available Not Available Not Available polyethylen e glycol 3350 17 gram/dose oral powder Take 17 g every day by oral route. active Not Available Not Available No t Available fluticasone propionate 50 mcg/actuati on nasal spray,suspe nsion [place] 1 spray twice a day by intranasa l route. active Not Available Not Available No t Available ipratropium bromide 21 mcg (0.03 %) nasal spray [place] 2 sprays every 8 hours by intranasa l route as needed. 01/25 completed Not Available Not Available Not Available Ventolin HFA 90 mcg/actuati on aerosol inhaler Inhale 2 puffs every 4 hours by inhalatio n route as needed. 2024 active Not Available Not Available Not Avai lable Space Chamber To be used PRN with Ventolin inhaler. 02/11 completed Not Available Not Available Not Available Breo Ellipta 100 mcg-25 mcg/dose powder for inhalation Inhale 1 puff every day by inhalatio n route. 2024 active Not Available Not Available Not Avai lable guaifenesin ER 600 mg tablet, extended release 12 hr Take 1 tablet every 12 hours by oral route for 5 days. 01/06 completed Stop Date: 12/30 Not Available Not Available Not Available Vitals Date Recorded Body height Heart rate Body temperature Respiratory rate Oxygen saturation Oxygen saturation in Arterial blood by Pulse oximetry Body mass index (BMI) Body weight Systolic And Diastolic Provider Name and Address Organization Details Last Updated DateTime 5 182.88 cm 70 /min 98.5 [degF] 18 /min 97 % 97 % 20.4 kg/m2 98342.2 9 g 119/78 mm[Hg] [place] [address] [place], [address], [place] - [facility] 5 13:24:17 Date Recorded Body height Heart rate Body temperature Respiratory rate Oxygen saturation Oxygen saturation in Arterial blood by Pulse oximetry Body mass index (BMI) Body weight Systolic And Diastolic Provider Name and Address Organization Details Last Updated DateTime 5 182.88 cm 83 /min 98.3 [degF] 18 /min 96 % 96 % 20.6 kg/m2 27608.7 6 g 154/69 mm[Hg] [place] [address] [place], [address], [place] - [facility] 5 14:50:25 Date Recorded Body height Heart rate Body temperature Respiratory rate Oxygen saturation Oxygen saturation in Arterial blood by Pulse oximetry Body mass index (BMI) Body weight Systolic And Diastolic Provider Name and Address Organization Details Last Updated DateTime 5 182.88 cm 80 /min 98.2 [degF] 18 /min 95 % 95 % 20.9 kg/m2 85352.5 1 g 154/78 mm[Hg] [place] [address] [place], [address], [place] - [facility] 5 14:54:27 Date Recorded Body height Heart rate Body temperature Respiratory rate Oxygen saturation Oxygen saturation in Arterial blood by Pulse oximetry Body mass index (BMI) Body weight Systolic And Diastolic Provider Name and Address Organization Details Last Updated DateTime 5 182.88 cm 71 /min 98 [degF] 18 /min 96 % 96 % 20.9 kg/m2 33013.9 4 g 156/79 mm[Hg] [place] [address] [place], [address], [place] - [facility] 5 13:44:00 Date Recorded Body height Heart rate Body temperature Respiratory rate Oxygen saturation Oxygen saturation in Arterial blood by Pulse oximetry Body mass index (BMI) Body weight Systolic And Diastolic Provider Name and Address Organization Details Last Updated DateTime 5 182.88 cm 70 /min 97.5 [degF] 18 /min 93 % 93 % 21 kg/m2 76421.5 4 g 137/64 mm[Hg] Veronica Aguero, [employer] 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 DNR [email or web address] Information not available 12/25/2024 When Did You Quit Smoking? 16+yearssin celastcibc ette Information not available 12/25/2024 What Was The Date Of Your Most Recent Tobacco Screening? 01/26/2025 Information not available 01/26/2025 What Is Your Relationship Status? Information not available 01/26/2025 How Much Tobacco Do You Smoke? No 1 Pack Per Day Information not available 01/26/2025 Sex: Unknown Functional Status Question Answer Note LastModified by Organizat ion Details LastModified Time Do you use any illicit or recreational drugs? No Information not available 01/26/2025 What is your level of alcohol consumption? None [email or web address] Information not available 12/25/2024 Mental Status None recorded. Family History Nothing Reported. Medical History Condition Response Psychiatric -- Anxiety Disorder Y Osteoarthritis / DJD Y Stroke (CVA) Y Atrial Fibrillation Y Hyperlipidemia Y Allergic Rhinitis Y Psychiatric -- Depression Y Dementia Y COPD Y Orthostatic Hypotension Y Back Pain Y Peripheral Vascular Disease (PVD) Y Loss of Hearing / Deafness Y Hypertension Y Benign Prostatic Hyperplasia (BPH) Y Past Encounters Encounter ID Performer Location Encounter Start Date Encounter Closed Date Diagnosis/Indication Diagnosis SNOMED-CT Code Diagnosis ICD10 Code Diagnosis IMO Codes Diagnosis Note [id number] Sosa Richardson DO [place] [address] [facility] [place] [address] 12/25/2024 10:15:58 12/28/2024 20:46:38 Cerebrovascular accident 325438292 I63.9 [id number] Waiting on further records from [facility]. CT in ER showed decreased attenuatio n within the right posterior lobe of the cerebellum ... possibly representi ng interval cerebral infarction . Carotid dopplers in September 2024 were unconcerni ng.Continu e baby ASA, Plavix (new), Atorvastat in, and good BP control.F/ U instructio ns unclear. F/U with Dr. Don Albert as OP.Continu e therapies. Acute urin dana tract infection 960553577 N39.0 [id number] D/Donell from hospital on Keflex x 4 days (12/28).Nii holcomb on further records from [facility], especially urine culture. Dizziness 030559954 R42 15271 Chronic, leading to falls.Neur ology suspected sec to CVA.Check orthostati cs daily x 7 days.Monit or continued need for Doxazosin, could be contributi ng.Continu e therapies. Fall precaution s in place. Benign hypertension 1072 5009 I10 352710 Elevated while inpatient, Losartan dose was increased to 100 mg daily. Due to daughter's concern, dose was reduced to 50 mg daily for now. Continue Amlodipine & Doxazosin, as well.Kenny nue to trend blood pressures, monitor lytes and renal function, and adjust meds as clinically indicated. I am able to access Dr. Bg Ramey's (cards) visit note from 10/31/24 -- home medication lists dose of Doxazosin at 2 mg at bedtime. He is not listed on Amlodipine . Losartan was 75 mg daily. Mixed hyperlipidemia 267 464493 E78.2 30662 Presumed stable. Continue Atorvastat in. Chronic at rial fibrillation 827692954 I48.20 829342 Stable. Not on rate-contr ollers.Per hospital, ot on OAC as OP, due to refusal reportedly due to cost, as well. However, I am able to access Dr. Bg Ramey (EP)'s visit note from 10/31/24, during which pt agreed to start OAC and was prescribed Xarelto 15 mg daily. Unclear if he actually started this medication . Will need to re-address with daughter/p t and cards, given pt has now been started on baby ASA & Plavix.Car ds thought dizziness could be sec to arrhythmia . 7-day heart monitor ordered by cards Dr. Ramey in October 2024 read = predomina nt rhythm is sinus rhythm with an average heart rate of 73 beats per minute and a range of 51-121 beats per minute. There were no significan t pauses. During the monitoring period paroxysmal supraventr icular tachycardi a was noted at up to 180 beats per minute (19 episodes, maximum duration 44 beats). There were no episodes of atrial fibrillati on or flutter. There were rare PACs and rare PVCs 4. The patient reported 18 events. Each event correlated with sinus rhythm with an isolated PAC or PVC and sinus tachycardi a at up to 114 beats per minute. Chronic ob structive pulmonary disease 01467924 J44.9 [id number] Not on routine inhalers, continue PRN Ventolin.R espiratory status is stable. Pt denies any recent flares or concerns. Peripheral arterial disease 474132904 I73.9 920635 s/p angioplast y with stent.Cont inue baby ASA, Plavix (new), Atorvastat in, and good BP control. Benign pro static hyperplasia 279927838 N40.0 55218003 Stable. Voiding without concerns, per pt. Continue Doxazosin for now. Monitoring for need as could be contributi ng to dizziness. Lumbosacra l spondylosis with radiculopathy 644503310 M47.27 18495129 Stable without concerns today. Continue PRN APAP per standing orders. Dementia 79791360 F03.90 6093667779 Appears mild, mood is pleasant, not on medication s at present beyond PRN Buspirone for anxiety.ST to follow. Generalize d anxiety disorder 37726907 F41.1 446105 SEE ABOVE... Recurrent major depression 11707402 F33.9 65707346 SEE ABOVE... Seasonal allergy 0959069 04 J30.2 80792 Stable. Continue Flonase & PRN Atrovent nasal spray. Not for resuscitation 30 8073960 Z66 858277 Pt is a DNR. Confirmed today. Physical deconditioning 7635482292 9102 R53.81 652324 Related to age, recent inpatient stay, and multiple comorbidit ies. Continue PT/OT/ST and monitor progress. Goal is for pt to return home. Hyponatremia 45166710 E8 7.1 05937 Unclear if evaluated while inpatient. Continue to trend level. Constipation 18381658 K5 9.00 550967512 Stable. Continue Miralax. Additional cathartics available per standing orders. [id number] Sosa Richardson, DO PAC [address] [address] 12/28/2024 19:18:00 01/06/2025 12:50:42 Acute urinary tract infection 592561027 N39.0 366879 D/Donell from hospital on Keflex x 4 dayscultur e done 12/21 grew >100,000 staph coag negative speciesthe patient does not currently have urinary symptoms - will monitor clinically Dizziness 305489801 R42 96980 Chronic, leading to falls.Neur ology suspected sec to CVA.orthos tatics negative thus farMonitor continued need for Doxazosin, could be contributi ng.Continu e therapies. Fall precaution s in place. Benign hypertension 1072 5009 I10 656327 Elevated while inpatient, Losartan dose was increased to 100 mg daily. Due to daughter's concern, dose was reduced to 50 mg daily for now. Continue Amlodipine & Doxazosin, as well.Kenny nue to trend blood pressures, monitor lytes and renal function, and adjust meds as clinically indicated. per Dr. Bg Ramey's (cards) visit note from 10/31/24 -- home medication lists dose of Doxazosin at 2 mg at bedtime. He is not listed on Amlodipine . Losartan was 75 mg daily. Chronic at rial fibrillation 381192008 I48.20 082174 Stable. Not on rate-contr ollers or oral anticoagul ants - per inpatient documentat ion, patient/da ughter have declined OAC - cost was reportedly an issue and coumadin offered as a more affordable alternativ e but also declined.C ards thought dizziness could be sec to arrhythmia . 7-day heart monitor ordered by cards Dr. Ramey in October 2024 read = predomina nt rhythm is sinus rhythm with an average heart rate of 73 beats per minute and a range of 51-121 beats per minute. There were no significan t pauses. During the monitoring period paroxysmal supraventr icular tachycardi a was noted at up to 180 beats per minute (19 episodes, maximum duration 44 beats). There were no episodes of atrial fibrillati on or flutter. There were rare PACs and rare PVCs 4. The patient reported 18 events. Each event correlated with sinus rhythm with an isolated PAC or PVC and sinus tachycardi a at up to 114 beats per minute. Mixed hyperlipidemia 267 664236 E78.2 56889 Presumed stable. Continue Atorvastat in Hyponatremia 27858357 E8 7.1 41617 Unclear if evaluated while inpatient. Continue to trend level.TSH was low with normal free T4 per labs 12/21 - will need to recheck as an outpatient Peripheral arterial disease 032395536 I73.9 264858 s/p angioplast y with stent.Cont inue baby ASA, Plavix (new), Atorvastat in, and good BP control. Chronic ob structive pulmonary disease 31909371 J44.9 767574542 Not on routine inhalers, continue PRN Ventolin.R espiratory status is stable. Pt denies any recent flares or concerns. Benign pro static hyperplasia 640563924 N40.0 92285008 Stable. Voiding without concerns, per pt. Continue Doxazosin for now. Monitoring for need as could be contributi ng to dizziness. Lumbosacra l spondylosis with radiculopathy 914664359 M47.27 67797511 Stable without concerns today. Continue PRN APAP per standing orders. Dementia 49419306 F03.90 5610150100 Appears mild, mood is pleasant, not on medication s at present beyond PRN Buspirone for anxiety.ST to follow. Generalize d anxiety disorder 73644504 F41.1 849175 SEE ABOVE... Recurrent major depression 31504567 F33.9 75331491 SEE ABOVE... Constipation 72553624 K5 9.00 602745927 Stable. Continue Miralax. Additional cathartics available per standing orders. Seasonal allergy 7988251 04 J30.2 23027 Stable. Continue Flonase & PRN Atrovent nasal spray. Physical deconditioning 9361026521 9102 R53.81 284779 Related to age, recent inpatient stay, and multiple comorbidit ies.Contin ue PT/OT/ST and monitor progress. Discharge plan is home with family support versus [facility] Stenosis o f right vertebral artery 419701661 I65.01 85549306 stroke w/u was done during his hospitaliz ation due to generalize d weakness and dizziness - Head CT and Brain MRI were both negative for acute infarct CTA of the head and neck c/w severe vertebral artery stenosisNe urology consulted and recommende d dual antiplatel et therapy with ASA and plavix,con tinue Atorvastat in and good BP control.F/ U with Dr. Don Albert as OP. as well as vascular surgery to discuss vertebral artery stentingCo ntinue therapies for generalize d weakness [id number] Sosa Richardson, [address] [place] [address] 12/29/2024 13:04:01 01/06/2025 12:52:03 Stenosis of right vertebral artery 548369556 I65.01 03481832 CVA w/u was done during his hospitaliz ation due to generalize d weakness and dizziness. Head CT and Brain MRI were both negative for acute infarct CTA of the head and neck c/w severe vertebral artery stenosis. Neurology consulted and recommende d dual antiplatel et therapy with ASA and plavix,con tinue Atorvastat in and good BP control.F/ U with Dr. Don Albert as OP.F/U with Dr. Ole Feldman (vascular surgery) on 01/09 to discuss possible interventi on.Continu e therapies for generalize d weakness. Acute urin dana tract infection 693823824 N39.0 027277 Culture done 12/21 grew >100,000 staph coag negative species.D/ Donell from hospital on Keflex x 4 days, completed 12/28.[place] does not currently have urinary symptoms. Monitor clinically . Dizziness 563532359 R42 93468 Chronic, leading to falls.Neur ology suspected sec to CVA.Orthos tatics on 12/28 normal, positive on 12/29 (SBP from 142 to 114).Monit or continued need for Doxazosin, could be contributi ng.Continu e therapies. Fall precaution s in place. Benign hypertension 1072 5009 I10 427140 Elevated while inpatient, Losartan dose was increased to [address] Bg Ramey's (cards) visit note from 10/31/24, home medication lists dose of Doxazosin at 2 mg at bedtime. He was not listed on Amlodipine . Losartan was 75 mg daily.Due to daughter's concern that Losartan dose was actually 50 mg as OP, dose was reduced to 50 mg daily for now. Continue Amlodipine & Doxazosin, as well.Kenny nue to trend blood pressures, monitor lytes and renal function, and adjust meds as clinically indicated. Chronic at rial fibrillation 733776230 I48.20 567908 Stable. Not on rate-contr ollers or oral anticoagul ants.Per inpatient documentat ion, patient/da ughter have declined OAC -- cost was reportedly an issue and Coumadin offered as a more affordable alternativ e but also declined due to need for blood draws.Card s thought dizziness could be sec to arrhythmia . 7-day heart monitor ordered by cards Dr. Ramey in October 2024 read = predomina nt rhythm is sinus rhythm with an average heart rate of 73 beats per minute and a range of 51-121 beats per minute. There were no significan t pauses. During the monitoring period paroxysmal supraventr icular tachycardi a was noted at up to 180 beats per minute (19 episodes, maximum duration 44 beats). There were no episodes of atrial fibrillati on or flutter. There were rare PACs and rare PVCs 4. The patient reported 18 events. Each event correlated with sinus rhythm with an isolated PAC or PVC and sinus tachycardi a at up to 114 beats per minute. Mixed hyperlipidemia 267 405791 E78.2 83964 Presumed stable. Continue Atorvastat in Hyponatremia 78350454 E8 7.1 63787 Na level trended 129-133 while inpatient. Treating supportive ly for now.TSH was low with normal free T4 per labs on 12/21. Will need to recheck thyroid levels as an outpatient .Continue to trend Na levels. Peripheral arterial disease 024358470 I73.9 481344 s/p angioplast y with stent.Cont inue baby ASA, Plavix (new), Atorvastat in, and good BP control. Chronic ob structive pulmonary disease 67854283 J44.9 256822590 Not on routine inhalers, continue PRN Ventolin.R espiratory status is stable. Pt denies any recent flares or concerns. Benign pro static hyperplasia 125131684 N40.0 07229984 Stable. Voiding without concerns, per pt. Continue Doxazosin for now. Monitoring for need as could be contributi ng to dizziness. Lumbosacra l spondylosis with radiculopathy 576069635 M47.27 37640459 Stable without concerns today. Continue PRN APAP per standing orders. Dementia 22782361 F03.90 2293134493 Appears mild, mood is pleasant, not on medication s at present beyond PRN Buspirone for anxiety.ST to follow.12/01 12/24 = BIMS score of 5/15. SLUMS administer ed with score of 30. Generalize d anxiety disorder 49533789 F41.1 893513 SEE ABOVE... Recurrent major depression 25587506 F33.9 37487567 SEE ABOVE... Constipation 28902171 K5 9.00 291058187 Stable. Continue Miralax. Additional cathartics available per standing orders. Seasonal allergy 7232722 04 J30.2 60359 Stable. Continue Flonase & PRN Atrovent nasal spray. Physical deconditioning [id number] 9102 R53.81 726082 Related to age, recent inpatient stay, and multiple comorbidit ies.Contin ue PT/OT/ST and monitor progress. Discharge plan is home with family support versus [facility] [id number] Sosa Richardson, DO [address] [address] 01/01/2025 09:03:06 01/11/2025 10:57:10 Stenosis of right vertebral artery 205417488 I65.01 72124768 CVA w/u was done during his hospitaliz ation due to generalize d weakness and dizziness. Head CT and Brain MRI were both negative for acute infarct CTA of the head and neck c/w severe vertebral artery stenosis. Neurology consulted and recommende d dual antiplatel et therapy with ASA and plavix,con tinue Atorvastat in and good BP control.F/ U with Dr. Don Albert as OP.F/U with Dr. Ole Feldman (vascular surgery) on 01/09 to discuss possible interventi on.Continu e therapies for generalize d weakness. Acute urin dana tract infection 962674628 N39.0 673696 Culture done 12/21 grew >100,000 staph coag negative species.D/ Donell from hospital on Keflex x 4 days, completed 12/28.Patie nt does not currently have urinary symptoms. Monitor clinically . Dizziness 284920136 R42 04724 Chronic, leading to falls.Neur ology suspected sec to CVA.Orthos tatics have been positive about 1/2 of the time.D/C Doxazosin. Monitor voiding and orthostasi s.Continue therapies. Fall precaution s in place. Benign hypertension 1072 5009 I10 889530 Elevated while inpatient, Losartan dose was increased to [address] Bg Ramey's (cards) visit note from 10/31/24, home medication lists dose of Doxazosin at 2 mg at bedtime. He was not listed on Amlodipine . Losartan was 75 mg daily.Due to daughter's concern that Losartan dose was actually 50 mg as OP, dose was reduced to 50 mg daily for now. Continue Amlodipine .Stopping Doxazosin as above.Cont inue to trend blood pressures, monitor lytes and renal function, and adjust meds as clinically indicated. Chronic at rial fibrillation 830762636 I48.20 209736 Stable. Not on rate-contr ollers or oral anticoagul ants.Per inpatient documentat ion, patient/da ughter have declined OAC -- cost was reportedly an issue and Coumadin offered as a more affordable alternativ e but also declined due to need for blood draws.Card s thought dizziness could be sec to arrhythmia . 7-day heart monitor ordered by daniela Ramey in October 2024 read = predomina nt rhythm is sinus rhythm with an average heart rate of 73 beats per minute and a range of 51-121 beats per minute. There were no significan t pauses. During the monitoring period paroxysmal supraventr icular tachycardi a was noted at up to 180 beats per minute (19 episodes, maximum duration 44 beats). There were no episodes of atrial fibrillati on or flutter. There were rare PACs and rare PVCs 4. The patient reported 18 events. Each event correlated with sinus rhythm with an isolated PAC or PVC and sinus tachycardi a at up to 114 beats per minute. Mixed hyperlipidemia 267 519155 E78.2 96882 Presumed stable. Continue Atorvastat in Hyponatremia 55269478 E8 7.1 84127 Na level trended 129-133 while inpatient. Treating supportive ly for now.TSH was low with normal free T4 per labs on 12/21. Will need to recheck thyroid levels as an outpatient .Continue to trend Na levels. Peripheral arterial disease 127031208 I73.9 842332 s/p angioplast y with stent.Cont inue baby ASA, Plavix (new), Atorvastat in, and good BP control. Chronic ob structive pulmonary disease 47621032 J44.9 371500851 Not on routine inhalers, continue PRN Ventolin.R espiratory status is stable. Pt denies any recent flares or concerns. Benign pro static hyperplasia 346691578 N40.0 75872807 Stable. Voiding without concerns, per pt.Stoppin g Doxazosin as above.Remedios tor closely. Lumbosacra l spondylosis with radiculopathy 444622412 M47.27 84360748 Stable without concerns today. Continue PRN APAP per standing orders. Dementia 27895904 F03.90 [id number] Appears mild, mood is pleasant, not on medication s at present beyond PRN Buspirone for anxiety.ST to follow.12/01 12/24 = BIMS score of 5/15. SLUMS administer ed with score of 3/30. Generalize d anxiety disorder 83645889 F41.1 402036 SEE ABOVE... Recurrent major depression 99386924 F33.9 90876476 SEE ABOVE... Constipation 40764203 K5 9.00 258304143 Stable. Continue Miralax. Additional cathartics available per standing orders. Seasonal allergy 3305267 04 J30.2 63469 Stable. Continue Flonase & PRN Atrovent nasal spray. Physical deconditioning 5480601631 9102 R53.81 776332 Related to age, recent inpatient stay, and multiple comorbidit ies.Contin ue PT/OT/ST and monitor progress. Discharge plan is home with family support versus [facility] [id number] Sosa Richardson DO [facility] [address] [place] [address] 01/06/2025 10:31:20 01/11/2025 10:57:39 Stenosis of right vertebral artery 177323183 I65.01 55563199 CVA w/u was done during his hospitaliz ation due to generalize d weakness and dizziness. Head CT and Brain MRI were both negative for acute infarct CTA of the head and neck c/w severe vertebral artery stenosis. Neurology consulted and recommende d dual antiplatel et therapy with ASA and plavix,con tinue Atorvastat in and good BP control.F/ U with Dr. Don Albert as OP.F/U with Dr. Ole Feldman (vascular surgery) on 01/09 to discuss possible interventi on.Continu e therapies for generalize d weakness. Acute urin dana tract infection 542280074 N39.0 031260 Culture done 12/21 grew >100,000 staph coag negative species.D/ Donell from hospital on Keflex x 4 days, completed 12/28.Patie nt does not currently have urinary symptoms. Monitor clinically . Dizziness 496662054 R42 95431 Chronic, leading to falls.Neur ology suspected sec to CVA.Orthos tatics were positive about 1/2 of the time.D/Donell Doxazosin. Monitor voiding and orthostasi s.Continue therapies. Fall precaution s in place. Benign hypertension 1072 5009 I10 927565 Elevated while inpatient, Losartan dose was increased to [address] Bg Ramey's (cards) visit note from 10/31/24, home medication lists dose of Doxazosin at 2 mg at bedtime. He was not listed on Amlodipine . Losartan was 75 mg daily.Due to daughter's concern that Losartan dose was actually 50 mg as OP, dose was reduced to 50 mg daily for now. Continue Amlodipine .Stopped Doxazosin as above.Cont inue to trend blood pressures, monitor lytes and renal function, and adjust meds as clinically indicated. Chronic at rial fibrillation 986152126 I48.20 468384 Stable. Not on rate-contr ollers or oral anticoagul ants.Per inpatient documentat ion, patient/da ughter have declined OAC -- cost was reportedly an issue and Coumadin offered as a more affordable alternativ e but also declined due to need for blood draws.Card s thought dizziness could be sec to arrhythmia . 7-day heart monitor ordered by daniela Ramey in October 2024 read = yanira nt rhythm is sinus rhythm with an average heart rate of 73 beats per minute and a range of 51-121 beats per minute. There were no significan t pauses. During the monitoring period paroxysmal supraventr icular tachycardi a was noted at up to 180 beats per minute (19 episodes, maximum duration 44 beats). There were no episodes of atrial fibrillati on or flutter. There were rare PACs and rare PVCs 4. The patient reported 18 events. Each event correlated with sinus rhythm with an isolated PAC or PVC and sinus tachycardi a at up to 114 beats per minute. Mixed hyperlipidemia 267 363776 E78.2 40676 Presumed stable. Continue Atorvastat in Hyponatremia 40172202 E8 7.1 14457 Na level trended 129-133 while inpatient. Treating supportive ly for now.TSH was low with normal free T4 per labs on 12/21. Will need to recheck thyroid levels as an outpatient .Continue to trend Na levels. Peripheral arterial disease 310410299 I73.9 906820 s/p angioplast y with stent.Cont inue baby ASA, Plavix (new), Atorvastat in, and good BP control. Chronic ob structive pulmonary disease 40068660 J44.9 095775656 Not on routine inhalers, continue PRN Ventolin.R espiratory status is stable. Pt denies any recent flares or concerns. Benign pro static hyperplasia 575444536 N40.0 83677137 Stable. Voiding without concerns, per pt.Stopped Doxazosin as above.Remedios tor closely. Lumbosacra l spondylosis with radiculopathy 875306509 M47.27 72366689 Stable without concerns today. Continue PRN APAP per standing orders. Dementia 10677520 F03.90 5776986374 Appears mild, mood is pleasant, not on medication s at present beyond PRN Buspirone for anxiety.ST to follow.12/01 12/24 = BIMS score of 5/15. SLUMS administer ed with score of 3/30. Generalize d anxiety disorder 13377226 F41.1 898723 SEE ABOVE... Recurrent major depression 58167493 F33.9 91119099 SEE ABOVE... Constipation 98133600 K5 9.00 920969070 Stable. Continue Miralax. Additional cathartics available per standing orders. Seasonal allergy 6595332 04 J30.2 51864 Stable. Continue Flonase & PRN Atrovent nasal spray. Physical deconditioning 9909082268 9102 R53.81 848250 Related to age, recent inpatient stay, and multiple comorbidit ies.Contin ue PT/OT/ST and monitor progress. Discharge plan is home with family support versus [facility] [id number] Sosa Richardson DO [address] [place] [address] 01/12/2025 10:39:34 01/19/2025 11:42:52 Stenosis of right vertebral artery 908033382 I65.01 69083153 CVA w/u was done during his hospitaliz ation due to generalize d weakness and dizziness. Head CT and Brain MRI were both negative for acute infarct CTA of the head and neck c/w severe vertebral artery stenosis. Neurology consulted and recommende d dual antiplatel et therapy with ASA and Plavix.Con tinue Atorvastat in, ASA, and good BP control.F/ U with Dr. Ole Feldman (vascular surgery) on 01/09 with order to D/C Plavix.F/U with Dr. Don Albert as OP.Continu e therapies for generalize d weakness. Acute urin dana tract infection 799773475 N39.0 058257 Culture done 12/21 grew >100,000 staph coag negative species.D/ Donell from hospital on Keflex x 4 days, completed 12/28.Laylae nt does not currently have urinary symptoms. Monitor clinically . Dizziness 134334738 R42 77676 Chronic, leading to falls.Neur ology suspected sec to CVA.Orthos tatics were positive about 1/2 of the time.D/Donell Doxazosin. Monitor voiding and orthostasi s.Continue therapies. Fall precaution s in place. Benign hypertension 1072 5009 I10 616664 Elevated while inpatient, Losartan dose was increased to [address] Bg Ramey's (cards) visit note from 10/31/24, home medication lists dose of Doxazosin at 2 mg at bedtime. He was not listed on Amlodipine . Losartan was 75 mg daily.Due to daughter's concern that Losartan dose was actually 50 mg as OP, dose was reduced to 50 mg daily for now. Continue Amlodipine .Stopped Doxazosin as above.Cont inue to trend blood pressures, monitor lytes and renal function, and adjust meds as clinically indicated. Chronic at rial fibrillation 730581947 I48.20 271526 Stable. Not on rate-contr ollers or oral anticoagul ants.Per inpatient documentat ion, patient/da benihter have declined OAC -- cost was reportedly an issue and Coumadin offered as a more affordable alternativ e but also declined due to need for blood draws.Card s thought dizziness could be sec to arrhythmia . 7-day heart monitor ordered by cards Dr. Ramey in October 2024 read = yanira nt rhythm is sinus rhythm with an average heart rate of 73 beats per minute and a range of 51-121 beats per minute. There were no significan t pauses. During the monitoring period paroxysmal supraventr icular tachycardi a was noted at up to 180 beats per minute (19 episodes, maximum duration 44 beats). There were no episodes of atrial fibrillati on or flutter. There were rare PACs and rare PVCs 4. The patient reported 18 events. Each event correlated with sinus rhythm with an isolated PAC or PVC and sinus tachycardi a at up to 114 beats per minute. Mixed hyperlipidemia 267 990746 E78.2 20800 Presumed stable. Continue Atorvastat in Hyponatremia 63735600 E8 7.1 87041 Na level trended 129-133 while inpatient. Treating supportive ly for now.TSH was low with normal free T4 per labs on 12/21. Will need to recheck thyroid levels as an outpatient .Continue to trend Na levels. Peripheral arterial disease 304760879 I73.9 337737 s/p angioplast y with stent.Cont inue baby ASA, Plavix (new), Atorvastat in, and good BP control. Chronic ob structive pulmonary disease 20320302 J44.9 133143676 Not on routine inhalers, continue PRN Ventolin.R espiratory status is stable. Pt denies any recent flares or concerns. Benign pro static hyperplasia 908717220 N40.0 59055135 Stable. Voiding without concerns, per pt.Stopped Doxazosin as above.Remedios tor closely. Lumbosacra l spondylosis with radiculopathy 887220014 M47.27 44877751 Stable without concerns today. Continue PRN APAP per standing orders. Dementia 96241056 F03.90 8179325302 Appears mild, mood is pleasant, not on medication s at present beyond PRN Buspirone for anxiety.ST to follow.12/01 12/24 = BIMS score of 5/15. SLUMS administer ed with score of 330. Recurrent major depression 64810218 F33.9 51215161 SEE ABOVE... Generalize d anxiety disorder 74973664 F41.1 355747 SEE ABOVE... Constipation 47819649 K5 9.00 155061481 Stable. Continue Miralax. Additional cathartics available per standing orders. Seasonal allergy 8908222 04 J30.2 55745 Stable. Continue Flonase & PRN Atrovent nasal spray. Physical deconditioning 5918366662 9102 R53.81 724496 Related to age, recent inpatient stay, and multiple comorbidit ies.Contin ue PT/OT/ST and monitor progress. Discharge plan is home with family support versus [facility] [id number] Sosa Richardson DO [address] [address] 01/14/2025 13:05:57 01/27/2025 23:08:14 Stenosis of right vertebral artery 539644832 I65.01 87707649 CVA w/u was done during his hospitaliz ation due to generalize d weakness and dizziness. Head CT and Brain MRI were both negative for acute infarct CTA of the head and neck c/w severe vertebral artery stenosis. Neurology consulted and recommende d dual antiplatel et therapy with ASA and Plavix.Con tinue Atorvastat in, ASA, and good BP control.F/ U with Dr. Ole Feldman (vascular surgery) on 01/09 with order to D/C Plavix.F/U with Dr. Don Albert as OP.Continu e therapies for generalize d weakness via [facility]. Dizziness 786108743 R42 34793 Chronic, leading to falls.Neur ology suspected sec to CVA.Orthos tatics were positive about 1/2 of the time.D/Donell Doxazosin. Monitor voiding and orthostasi s.Continue therapies via [facility].Fall precaution s in place. Benign hypertension 1072 5009 I10 158014 Elevated while inpatient, Losartan dose was increased to [address] Bg Ramey's (cards) visit note from 10/31/24, home medication lists dose of Doxazosin at 2 mg at bedtime. He was not listed on Amlodipine . Losartan was 75 mg daily.Due to daughter's concern that Losartan dose was actually 50 mg as OP, dose was reduced to 50 mg daily. Continue Amlodipine .Stopped Doxazosin as above.Cont inue to trend blood pressures, monitor lytes and renal function, and adjust meds as clinically indicated. Chronic at rial fibrillation 621254478 I48.20 743362 Stable. Not on rate-contr ollers or oral anticoagul ants.Per inpatient documentat ion, patient/da ughter have declined OAC -- cost was reportedly an issue and Coumadin offered as a more affordable alternativ e but also declined due to need for blood draws.Card s thought dizziness could be sec to arrhythmia . 7-day heart monitor ordered by cards Dr. Ramey in October 2024 read = predomina nt rhythm is sinus rhythm with an average heart rate of 73 beats per minute and a range of 51-121 beats per minute. There were no significan t pauses. During the monitoring period paroxysmal supraventr icular tachycardi a was noted at up to 180 beats per minute (19 episodes, maximum duration 44 beats). There were no episodes of atrial fibrillati on or flutter. There were rare PACs and rare PVCs 4. The patient reported 18 events. Each event correlated with sinus rhythm with an isolated PAC or PVC and sinus tachycardi a at up to 114 beats per minute. Mixed hyperlipidemia 267 319191 E78.2 78773 Presumed stable. Continue Atorvastat in Hyponatremia 92498333 E8 7.1 90286 Na level trended 129-133 while inpatient. Treating supportive ly for now.TSH was low with normal free T4 per labs on 12/21. Will need to recheck thyroid levels as an outpatient .Continue to trend Na levels. Peripheral arterial disease 135527900 I73.9 639846 s/p angioplast y with stent.Cont inue baby ASA, Atorvastat in, and good BP control. Chronic ob structive pulmonary disease 15381873 J44.9 930014770 Not on routine inhalers, continue PRN Ventolin.R espiratory status is stable. Pt denies any recent flares or concerns. Benign pro static hyperplasia 492188277 N40.0 57681640 Stable. Voiding without concerns, per pt.Stopped Doxazosin as above.Remedios tor closely. Constipation 35460077 K5 9.00 348234305 Stable. Continue Miralax. Additional cathartics available per standing orders. Dementia 96272048 F03.90 4578605154 Appears mild, mood is pleasant, not on medication s at present beyond PRN Buspirone for anxiety.ST to follow.12/01 12/24 = BIMS score of 5/15. SLUMS administer ed with score of 3/30. Recurrent major depression 01884846 F33.9 33416907 SEE ABOVE... Generalize d anxiety disorder 62619784 F41.1 517535 SEE ABOVE... Lumbosacra l spondylosis with radiculopathy 007486183 M47.27 60870786 Stable without concerns today. Continue PRN APAP per standing orders. Seasonal allergy 3417815 04 J30.2 76472 Stable. Continue Flonase & PRN Atrovent nasal spray. Acute urin dana tract infection 144836512 N39.0 613410 Culture done 12/21 grew >100,000 staph coag negative species.D/ Donell from hospital on Keflex x 4 days, completed 12/28.[place] v[place]es does not currently have urinary symptoms. Monitor clinically . [id number] Sosa Richardson, [address] [address] 01/26/2025 10:37:26 01/27/2025 23:09:57 Stenosis of right vertebral artery 197067516 I65.01 20781427 CVA w/u was done during 12/18 to 12/24/24 hospitaliz ation due to generalize d weakness and dizziness. Head CT and Brain MRI were both negative for acute infarct but CTA of the head and neck c/w severe vertebral artery stenosis. Neurology consulted and recommende d dual antiplatel et therapy with ASA and Plavix. F/U with Dr. Ole Feldman (vascular surgery) on 01/09 with order to D/C Plavix.Pre viously on Atorvastat in -- nursing to clarify d/c medication s.Continue ASA and good BP control.Co ntinue therapies. F/U with Dr. Ole Feldman (vascular) as directed, needs to be clarified. F/U with Dr. Don Albert (neuro) as directed, needs to be clarified. Dizziness 177468113 R42 11290 Chronic, leading to falls. Neurology suspected sec to vertebral artery stenosis.O rthostatic s were positive about 1/2 of the time during his last rehab stay here. D/Donell Doxazosin at that time.Kenny nue to monitor orthostati cs, will check a set of orthostati c vitals after medication s confirmed. Continue therapies. Fall precaution s in place. Benign hypertension 1072 5009 I10 937122 Unfortunat amandeep both intermitte ntly elevated and orthostati c, making control difficult. Required addition of Amlodipine during November hospitaliz ation.Prev iously on Losartan & Amlodipine -- nursing to clarify d/c medication s.Stopped Doxazosin as above.Cont inue to trend blood pressures, monitor lytes and renal function, and adjust meds as clinically indicated. Chronic at rial fibrillation 661807687 I48.20 124090 Cards thought dizziness could be sec to arrhythmia . 7-day heart monitor ordered by cards Dr. Ramey in October 2024 read = predomina nt rhythm is sinus rhythm with an average heart rate of 73 beats per minute and a range of 51-121 beats per minute. There were no significan t pauses. During the monitoring period paroxysmal supraventr icular tachycardi a was noted at up to 180 beats per minute (19 episodes, maximum duration 44 beats). There were no episodes of atrial fibrillati on or flutter. There were rare PACs and rare PVCs 4. The patient reported 18 events. Each event correlated with sinus rhythm with an isolated PAC or PVC and sinus tachycardi a at up to 114 beats per minute.St able. Not on rate-contr ollers or oral anticoagul ants beyond baby ASA daily.Per inpatient documentat ion, patient/da ughter have declined OAC -- cost was reportedly an issue and Coumadin offered as a more affordable alternativ e but also declined due to need for blood draws.F/U with Dr. Bg Ramey as directed, needs to be clarified. Mixed hyperlipidemia 267 942264 E78.2 22182 Presumed stable. Previously on Atorvastat in -- nursing to clarify d/c medication s. Hyponatremia 55859903 E8 7.1 50006 Na level trended 129-133 historical ly. Treating supportive ly for now.TSH was low with normal free T4 per labs on 12/21/24. Will need to recheck thyroid levels in mid-December.C ontinue to trend Na levels. Peripheral arterial disease 285296220 I73.9 445983 s/p angioplast y with stent.Cont inue baby ASA and good BP control.Pr eviously on Atorvastat in -- nursing to clarify d/c medication s. Chronic ob structive pulmonary disease 87488326 J44.9 773689034 Not on routine inhalers. Was previously on PRN Ventolin -- nursing to clarify d/c medication s.Respirat ory status is stable. Pt denies any recent flares or concerns. Benign pro static hyperplasia 642938348 N40.0 41539766 Stable. Voiding without concerns, per pt. UA while recently inpatient did not reflex to culture.St opped Doxazosin as above.Remedios tor closely. Constipation 09899878 K5 9.00 790771017 Stable. Previously on daily Miralax -- nursing to clarify d/c medication s.Continue routine Docusate.A dditional cathartics available per standing orders. Dementia 47497672 F03.90 6602220001 Appears mild, mood is pleasant. Previously on PRN Buspirone BID, was scheduled BID during last hospital stay.ST to follow.12/01 12/24 = BIMS score of 5/15. SLUMS score of 3/30. Recurrent major depression 12770116 F33.9 45718979 SEE ABOVE... Generalize d anxiety disorder 16463639 F41.1 468431 SEE ABOVE... Lumbosacra l spondylosis with radiculopathy 591120824 M47.27 61175893 Stable without recent concerns. Continue PRN APAP per standing orders. Seasonal allergy 9038472 04 J30.2 51109 Stable. Continue Flonase. No longer on PRN Atrovent nasal spray -- nursing to clarify d/c medication s. History of urinary tract infection 9957066001 107 Z87.793 8101291 Culture done 12/21/24 grew >100,000 staph coag negative species. D/Donell from hospital on Keflex x 4 days, completed 12/28/24. During most recent inpatient stay, UA was normal, did not meet reflex criteria.P zonia does not currently have urinary symptoms. Monitor clinically . Not for resuscitation 30 3650794 Z66 674946 Pt is a DNR with comfort-fo cused measures. Confirmed today.Srinivasan is daughter Roseanne. [id number] Sosa Richardson, DO [address] [address] [place] [address] 01/27/2025 18:49:50 02/04/2025 10:35:35 Stenosis of right vertebral artery 398362487 I65.01 11190784 CVA w/u was done during 12/18 to 12/24/24 hospitaliz ation due to generalize d weakness and dizziness. Head CT and Brain MRI were both negative for acute infarct but CTA of the head and neck c/w severe vertebral artery stenosis. Neurology consulted and recommende d dual antiplatel et therapy with ASA and Plavix. F/U with Dr. Ole Feldman (vascular surgery) on 01/09 with order to D/C Plavix.Con tinue Atorvastat inContinue ASA and good BP control - these have been a bit high since admission but some meds were not initially started on admission due to missing d/c ordersCont inue therapies. F/U with Dr. Ole Feldman (vascular) and Dr. Don Albert (neuro) - appointmen ts to be clarified by NABEEL Dizziness [id number] R42 04083 Chronic, leading to falls. Neurology suspected sec to vertebral artery stenosis.O rthostatic s were positive about 1/2 of the time during his last rehab stay here. D/Donell Doxazosin at that time.Kenny nue to monitor orthostati csContinue therapies. Fall precaution s in place. Benign hypertension 1072 5009 I10 651507 Unfortunat amandeep both intermitte ntly elevated and orthostati c, making control difficult. Required addition of Amlodipine during November hospitaliz ation.Cont inue Losartan & Amlodipine -- may need to dose adjust if pressures remain elevatedSt opped Doxazosin due to orthostasi s Chronic at rial fibrillation 637409138 I48.20 310457 Cards thought dizziness could be sec to arrhythmia . 7-day heart monitor ordered by cards Dr. Ramey in October 2024 read = predomina nt rhythm is sinus rhythm with an average heart rate of 73 beats per minute and a range of 51-121 beats per minute. There were no significan t pauses. During the monitoring period paroxysmal supraventr icular tachycardi a was noted at up to 180 beats per minute (19 episodes, maximum duration 44 beats). There were no episodes of atrial fibrillati on or flutter. There were rare PACs and rare PVCs 4. The patient reported 18 events. Each event correlated with sinus rhythm with an isolated PAC or PVC and sinus tachycardi a at up to 114 beats per minute.St able. Not on rate-contr ollers or oral anticoagul ants beyond baby ASA daily.Per inpatient documentat ion, patient/da ughter have declined OAC -- cost was reportedly an issue and Coumadin offered as a more affordable alternativ e but also declined due to need for blood draws.F/U with Dr. Bg Ramey as directed Mixed hyperlipidemia 267 983286 E78.2 52434 Presumed stable. continue Atorvastat in Hyponatremia 09654245 E8 7.1 23206 Na level trended 129-133 historical ly. Treating supportive ly for now.TSH was low with normal free T4 per labs on 12/21/24. Will need to recheck thyroid levels in mid-December.C ontinue to trend Na levels. Peripheral arterial disease 536468094 I73.9 425567 s/p angioplast y with stent.Cont inue baby ASA, statin and good BP control. Chronic ob structive pulmonary disease 69833376 J44.9 [id number] Not on routine inhalers. continue PRN VentolinRe spiratory status is stable. Benign pro static hyperplasia 583915530 N40.0 84551652 Stable. Voiding without concerns, per pt. UA while recently inpatient did not reflex to culture.St opped Doxazosin as above.Remedios tor closely. Constipation 14882358 K5 9.00 792495528 Stable. Continue daily Miralax and routine docusateAd ditional cathartics available per standing orders. Dementia 92530278 F03.90 [id number] Appears mild, mood is pleasant. Continue Buspirone BIDST to follow.12/01 12/24 = BIMS score of 5/15. SLUMS score of 3/30. Recurrent major depression 24814800 F33.9 22590537 SEE ABOVE... Generalize d anxiety disorder 60922075 F41.1 238611 SEE ABOVE... Lumbosacra l spondylosis with radiculopathy 869734984 M47.27 24904129 Stable without recent concerns. Continue PRN APAP per standing orders. Seasonal allergy 3830819 04 J30.2 15683 Stable. Continue Flonase. No longer on PRN Atrovent nasal spray History of urinary tract infection 5047890929 107 Z87.027 3992105 Culture done 12/21/24 grew >100,000 staph coag negative species. D/Donell from hospital on Keflex x 4 days, completed 12/28/24. During most recent inpatient stay, UA was normal, did not meet reflex criteria.P atient does not currently have urinary symptoms. Monitor clinically . [id number] Sosa Richardson, DO [address] [address] 01/29/2025 12:25:04 02/04/2025 10:33:35 Acute exacerbation of chronic obstructive pulmonary disease 875845095 J44.1 987167 Not on routine inhalers. Continue PRN Ventolin.N ew complaints of MALDONADO with dry cough. CXR was unremarkab le beyond hyperinfla tion.Add Breo inhaler daily for maintenanc e of COPD.Kenny nue to monitor respirator y status -- stable today. Stenosis o f right vertebral artery 488215777 I65.01 24918886 CVA w/u was done during 12/18 to 12/24/24 hospitaliz ation due to generalize d weakness and dizziness. Head CT and Brain MRI were both negative for acute infarct but CTA of the head and neck c/w severe vertebral artery stenosis. Neurology consulted and recommende d dual antiplatel et therapy with ASA and Plavix. F/U with Dr. Ole Feldman (vascular surgery) on 01/09 with order to D/C Plavix.Con tinue Atorvastat in, ASA, and good BP control.Co ntinue therapies. F/U with Dr. Ole Feldman (vascular) and Dr. Don Albert (neuro) - appointmen ts to be clarified by DON. Daughter does not that Dr. Feldman did not think dizziness was related to stenosis but does plan to move forward with interventi on. Dizziness 131919176 R42 66428 Chronic, leading to falls. Neurology suspected sec to vertebral artery stenosis, however daughter tells me that Dr. Feldman (vascular) did not think this was related.Or thostatics were positive about 1/2 of the time during his last rehab stay here. D/Donell Doxazosin at that time.Kenny nue to monitor orthostati cs here.Kenny nue therapies. Fall precaution s in place. Benign hypertension 1072 5009 I10 264902 Unfortunat amandeep both intermitte ntly elevated and orthostati c, making control difficult. Required addition of Amlodipine during November hospitaliz ation.Cont inue Losartan & Amlodipine -- may need to dose adjust if pressures remain elevatedSt opped Doxazosin due to orthostasi s.Continue to trend blood pressures, monitor lytes and renal function, and adjust meds as clinically indicated. Chronic at rial fibrillation 574574696 I48.20 163098 Cards thought dizziness could be sec to arrhythmia . 7-day heart monitor ordered by cards Dr. Ramey in October 2024 read = predomina nt rhythm is sinus rhythm with an average heart rate of 73 beats per minute and a range of 51-121 beats per minute. There were no significan t pauses. During the monitoring period paroxysmal supraventr icular tachycardi a was noted at up to 180 beats per minute (19 episodes, maximum duration 44 beats). There were no episodes of atrial fibrillati on or flutter. There were rare PACs and rare PVCs 4. The patient reported 18 events. Each event correlated with sinus rhythm with an isolated PAC or PVC and sinus tachycardi a at up to 114 beats per minute.St able. Not on rate-contr ollers or oral anticoagul ants beyond baby ASA daily.Per inpatient documentat ion, patient/da ughter have declined OAC -- cost was reportedly an issue and Coumadin offered as a more affordable alternativ e but they also declined due to need for blood draws.F/U with Dr. Bg Ramey as directed. Mixed hyperlipidemia 267 268114 E78.2 12706 Presumed stable. Continue Atorvastat in. Hyponatremia 94196573 E8 7.1 97800 Na level trended 129-133 historical ly. Treating supportive ly for now.TSH was low with normal free T4 per labs on 12/21/24. Will need to recheck thyroid levels in mid-December.C ontinue to trend Na levels. Peripheral arterial disease 788320358 I73.9 219005 s/p angioplast y with stent.Cont inue baby ASA, statin, and good BP control.F/ U with Dr. Ole Feldman as above. Benign pro static hyperplasia 638631358 N40.0 77399730 Stable. Voiding without concerns, per pt. UA while recently inpatient did not reflex to culture.St opped Doxazosin as above during last rehab stay.Monit or closely. Constipation 31388919 K5 9.00 584739682 Stable. Continue routine Miralax and Docusate. Additional cathartics available per standing orders. Dementia 60895209 F03.90 [id number] Appears mild, mood is pleasant. Continue Buspirone routinely. ST following. 12/25/24 = BIMS score of 5/15. SLUMS score of 3/30. Recurrent major depression 05714052 F33.9 40075065 SEE ABOVE... Generalize d anxiety disorder 30193224 F41.1 099083 SEE ABOVE... Lumbosacra l spondylosis with radiculopathy 860870153 M47.27 12750350 Stable without recent concerns. Continue PRN APAP per standing orders. Seasonal allergy 7425312 04 J30.2 80848 Stable. Continue Flonase. No longer on PRN Atrovent nasal spray. History of urinary tract infection 7894343669 107 Z87.587 8011755 Culture done 12/21/24 grew >100,000 staph coag negative species. D/Donell from hospital on Keflex x 4 days, completed 12/28/24. During most recent inpatient stay, UAs were normal/did not meet reflex criteria.P atient does not currently have urinary symptoms. Monitor clinically . [id number] DO DANIELA [place] [address] [place] [address] 02/02/2025 10:19:45 02/04/2025 10:34:50 Acute exacerbation of chronic obstructive pulmonary disease 424359725 J44.1 208051 Not previously on routine inhalers. New complaints of MALDONADO with dry cough. CXR was unremarkab le beyond hyperinfla tion and pt otherwise without URI/respir atory symptoms.A dded Breo inhaler daily. Continue PRN Ventolin.C ontinue to monitor respirator y status -- stable today. Stenosis o f right vertebral artery 589243847 I65.01 61771195 CVA w/u was done during 12/18 to 12/24/24 hospitaliz ation due to generalize d weakness and dizziness. Head CT and Brain MRI were both negative for acute infarct but CTA of the head and neck c/w severe vertebral artery stenosis. Neurology consulted and recommende d dual antiplatel et therapy with ASA and Plavix. F/U with Dr. lOe Feldman (vascular surgery) on 01/09 with order to D/C Plavix.Con tinue Atorvastat in, ASA, and good BP control.Co ntinue therapies. F/U with Dr. Ole Feldman (vascular) and Dr. Don Albert (neuro) - appointmen ts to be clarified by DON. Daughter does not that Dr. Feldman did not think dizziness was related to stenosis but does plan to move forward with interventi on. Dizziness 879918467 R42 93930 Chronic, leading to falls. Neurology suspected sec to vertebral artery stenosis, however daughter tells me that Dr. Feldman (vascular) did not think this was related.Or thostatics were positive about 1/2 of the time during his last rehab stay here. D/Donell Doxazosin at that time.Kenny nue to monitor orthostati cs here. Thus far, negative.C ontinue therapies. Fall precaution s in place. Benign hypertension 1072 5009 I10 401744 Unfortunat amandeep both intermitte ntly elevated and orthostati c, making control difficult. Required addition of Amlodipine during November hospitaliz ation.Cont inue Losartan & Amlodipine .Stopped Doxazosin due to orthostasi s.Continue to trend blood pressures, monitor lytes and renal function, and adjust meds as clinically indicated. Chronic at rial fibrillation 098338529 I48.20 452735 Cards thought dizziness could be sec to arrhythmia . 7-day heart monitor ordered by cards Dr. Ramey in October 2024 read = predomina nt rhythm is sinus rhythm with an average heart rate of 73 beats per minute and a range of 51-121 beats per minute. There were no significan t pauses. During the monitoring period paroxysmal supraventr icular tachycardi a was noted at up to 180 beats per minute (19 episodes, maximum duration 44 beats). There were no episodes of atrial fibrillati on or flutter. There were rare PACs and rare PVCs 4. The patient reported 18 events. Each event correlated with sinus rhythm with an isolated PAC or PVC and sinus tachycardi a at up to 114 beats per minute.St able. Not on rate-contr ollers or oral anticoagul ants beyond baby ASA daily.Per inpatient documentat ion, patient/da ughter have declined OAC -- cost was reportedly an issue and Coumadin offered as a more affordable alternativ e but they also declined due to need for blood draws.F/U with Dr. Bg Ramey as directed. Mixed hyperlipidemia 267 314875 E78.2 42705 Presumed stable. Continue Atorvastat in. Hyponatremia 88273768 E8 7.1 54722 Na level trended 129-133 historical ly. Treating supportive ly for now.TSH was low with normal free T4 per labs on 12/21/24. Will need to recheck thyroid levels in mid-January .Continue to trend Na levels. Peripheral arterial disease 732060057 I73.9 227145 s/p angioplast y with stent.Cont inue baby ASA, statin, and good BP control.F/ U with Dr. Ole Feldman as above. Benign pro static hyperplasia 237243166 N40.0 93826057 Stable. Voiding without concerns, per pt. UA while recently inpatient did not reflex to culture.St opped Doxazosin as above during last rehab stay.Monit or closely. Constipation 37245221 K5 9.00 343252597 Stable. Continue routine Miralax and Docusate. Additional cathartics available per standing orders. Dementia 77938681 F03.90 [id number] Appears mild, mood is pleasant. Continue Buspirone routinely. ST following. 12/25/24 = BIMS score of 5/15. SLUMS score of 3/30. Recurrent major depression 07944111 F33.9 28666107 SEE ABOVE... Generalize d anxiety disorder 55119981 F41.1 389514 SEE ABOVE... Lumbosacra l spondylosis with radiculopathy 198653450 M47.27 30541206 Stable without recent concerns. Continue PRN APAP per standing orders. Seasonal allergy 7543007 04 J30.2 79635 Stable. Continue Flonase. No longer on PRN Atrovent nasal spray. History of urinary tract infection 9540096395 107 Z87.735 8433767 Culture done 12/21/24 grew >100,000 staph coag negative species. D/Donell from hospital on Keflex x 4 days, completed 12/28/24. During most recent inpatient stay, UAs were normal/did not meet reflex criteria.P atient does not currently have urinary symptoms. Monitor clinically . [id number] Sosa Richardson DO [address] [address] 02/04/2025 10:53:04 02/15/2025 01:15:48 Acute exacerbation of chronic obstructive pulmonary disease 438443754 J44.1 644327 Not previously on routine inhalers. New complaints of MALDONADO with dry cough. CXR was unremarkab le beyond hyperinfla tion and pt otherwise without URI/respir atory symptoms.A dded Breo inhaler daily. Continue PRN Ventolin.C ontinue to monitor respirator y status -- stable today. Stenosis o f right vertebral artery 887364357 I65.01 28976095 CVA w/u was done during 12/18 to 12/24/24 hospitaliz ation due to generalize d weakness and dizziness. Head CT and Brain MRI were both negative for acute infarct but CTA of the head and neck c/w severe vertebral artery stenosis. Neurology consulted and recommende d dual antiplatel et therapy with ASA and Plavix. F/U with Dr. Ole Feldman (vascular surgery) on 01/09 with order to D/C Plavix.Con tinue Atorvastat in, ASA, and good BP control.Co ntinue therapies. F/U with Dr. Ole Feldman (vascular) and Dr. Don Albert (neuro) - appointmen ts to be scheduled by daughter after discharge from rehab. Daughter noted that Dr. Feldman did not think dizziness was related to stenosis but does plan to move forward with interventi on. Dizziness 463785718 R42 83680 Chronic, leading to falls. Neurology suspected sec to vertebral artery stenosis, however daughter tells me that Dr. Feldman (vascular) did not think this was related.Or thostatics were positive about 1/2 of the time during his last rehab stay here. D/Donell Doxazosin at that time. Orthostati cs here have been normal.Con tinue therapies. Fall precaution s in place. Benign hypertension 1072 5009 I10 500737 Unfortunat amandeep both intermitte ntly elevated and orthostati c, making control difficult. Required addition of Amlodipine during November hospitaliz ation.Cont inue Losartan & Amlodipine .Stopped Doxazosin due to orthostasi s.Continue to trend blood pressures, monitor lytes and renal function, and adjust meds as clinically indicated. Chronic at rial fibrillation 861834058 I48.20 202524 Cards thought dizziness could be sec to arrhythmia . 7-day heart monitor ordered by cards Dr. Ramey in October 2024 read = predomina nt rhythm is sinus rhythm with an average heart rate of 73 beats per minute and a range of 51-121 beats per minute. There were no significan t pauses. During the monitoring period paroxysmal supraventr icular tachycardi a was noted at up to 180 beats per minute (19 episodes, maximum duration 44 beats). There were no episodes of atrial fibrillati on or flutter. There were rare PACs and rare PVCs 4. The patient reported 18 events. Each event correlated with sinus rhythm with an isolated PAC or PVC and sinus tachycardi a at up to 114 beats per minute.St able. Not on rate-contr ollers or oral anticoagul ants beyond baby ASA daily.Per inpatient documentat ion, patient/da ughter have declined OAC -- cost was reportedly an issue and Coumadin offered as a more affordable alternativ e but they also declined due to need for blood draws.F/U with Dr. Bg Ramey as directed. Mixed hyperlipidemia 267 752291 E78.2 03063 Presumed stable. Continue Atorvastat in. Hyponatremia 90986054 E8 7.1 83156 Na level trended 129-133 historical ly. Treating supportive ly for now.TSH was low with normal free T4 per labs on 12/21/24. Will need to recheck thyroid levels in mid-January .Continue to trend Na levels. Peripheral arterial disease 884758554 I73.9 459502 s/p angioplast y with stent.Cont inue baby ASA, statin, and good BP control.F/ U with Dr. Ole Feldman as above. Benign pro static hyperplasia 843637524 N40.0 05710787 Stable. Voiding without concerns, per pt. UA while recently inpatient did not reflex to culture.St opped Doxazosin as above during last rehab stay.Monit or closely. Constipation 14122075 K5 9.00 910388906 Stable. Continue routine Miralax and Docusate. Additional cathartics available per standing orders. Dementia 62871690 F03.90 1095803393 Appears mild, mood is pleasant. Continue Buspirone routinely. ST following. 12/25/24 = BIMS score of 5/15. SLUMS score of 3/30. Generalize d anxiety disorder 29211301 F41.1 956782 SEE ABOVE... Recurrent major depression 29283794 F33.9 61802425 SEE ABOVE... Lumbosacra l spondylosis with radiculopathy 085135086 M47.27 07431517 Stable without recent concerns. Continue PRN APAP per standing orders. Seasonal allergy 6098566 04 J30.2 63703 Stable. Continue Flonase. No longer on PRN Atrovent nasal spray. History of urinary tract infection 5387484148 107 Z87.050 8206582 Culture done 12/21/24 grew >100,000 staph coag negative species. D/Donell from hospital on Keflex x 4 days, completed 12/28/24. During most recent inpatient stay, UAs were normal/did not meet reflex criteria.P atient does not currently have urinary symptoms. Monitor clinically . [id number] Sosa Richardson DO [address] [address] 02/09/2025 10:46:02 02/15/2025 01:16:24 Acute exacerbation of chronic obstructive pulmonary disease 931745389 J44.1 188651 Not previously on routine inhalers. New complaints of MALDONADO with dry cough. CXR was unremarkab le beyond hyperinfla tion and pt otherwise without URI/respir atory symptoms.A dded Breo inhaler daily. Continue PRN Ventolin & Benzonatat e.Continue to monitor respirator y status -- stable today. Stenosis o f right vertebral artery 362767307 I65.01 14448394 CVA w/u was done during 12/18 to 12/24/24 hospitaliz ation due to generalize d weakness and dizziness. Head CT and Brain MRI were both negative for acute infarct but CTA of the head and neck c/w severe vertebral artery stenosis. Neurology consulted and recommende d dual antiplatel et therapy with ASA and Plavix. F/U with Dr. Ole Feldman (vascular surgery) on 01/09 with order to D/C Plavix.Con tinue Atorvastat in, ASA, and good BP control.Co ntinue therapies. F/U with Dr. Ole Feldman (vascular) and Dr. Don Albert (neuro) - appointmen ts to be scheduled by daughter after discharge from rehab. Daughter noted that Dr. Feldman did not think dizziness was related to stenosis but does plan to move forward with interventi on. Dizziness 079013161 R42 24128 Chronic, leading to falls. Neurology suspected sec to vertebral artery stenosis, however daughter tells me that Dr. Feldman (vascular) did not think this was related.Or thostatics were positive about 1/2 of the time during his last rehab stay here. D/Donell Doxazosin at that time. Orthostati cs here have been normal.Con tinue therapies. Fall precaution s in place. Benign hypertension 1072 5009 I10 099935 Unfortunat amandeep both intermitte ntly elevated and orthostati c, making control difficult. Required addition of Amlodipine during November hospitaliz ation.Cont inue Losartan & Amlodipine .Stopped Doxazosin due to orthostasi s.Continue to trend blood pressures, monitor lytes and renal function, and adjust meds as clinically indicated. Chronic at rial fibrillation 606624118 I48.20 633990 Cards thought dizziness could be sec to arrhythmia . 7-day heart monitor ordered by cards Dr. Ramey in October 2024 read = predomina nt rhythm is sinus rhythm with an average heart rate of 73 beats per minute and a range of 51-121 beats per minute. There were no significan t pauses. During the monitoring period paroxysmal supraventr icular tachycardi a was noted at up to 180 beats per minute (19 episodes, maximum duration 44 beats). There were no episodes of atrial fibrillati on or flutter. There were rare PACs and rare PVCs 4. The patient reported 18 events. Each event correlated with sinus rhythm with an isolated PAC or PVC and sinus tachycardi a at up to 114 beats per minute.St able. Not on rate-contr ollers or oral anticoagul ants beyond baby ASA daily.Per inpatient documentat ion, patient/da ughter have declined OAC -- cost was reportedly an issue and Coumadin offered as a more affordable alternativ e but they also declined due to need for blood draws.F/U with Dr. Bg Ramey as directed. Mixed hyperlipidemia 267 544030 E78.2 38527 Presumed stable. Continue Atorvastat in. Hyponatremia 75900836 E8 7.1 50012 Na level trended 129-133 historical ly. Treating supportive ly for now.TSH was low with normal free T4 per labs on 12/21/24. Will need to recheck thyroid levels in mid-January .Continue to trend Na levels. Peripheral arterial disease 292880083 I73.9 189600 s/p angioplast y with stent.Cont inue baby ASA, statin, and good BP control.F/ U with Dr. Ole Feldman as above. Benign pro static hyperplasia 752348302 N40.0 79645990 Stable. Voiding without concerns, per pt. UA while recently inpatient did not reflex to culture.St opped Doxazosin as above during last rehab stay.Monit or closely. Constipation 67615330 K5 9.00 146702618 Stable. Continue routine Miralax and Docusate. Additional cathartics available per standing orders. Dementia 78884097 F03.90 6283250122 Appears mild, mood is pleasant. Continue Buspirone routinely. ST following. 12/25/24 = BIMS score of 5/15. SLUMS score of 3/30. Generalize d anxiety disorder 09707446 F41.1 200159 SEE ABOVE... Recurrent major depression 49482397 F33.9 60483198 SEE ABOVE... Lumbosacra l spondylosis with radiculopathy 161434233 M47.27 06595529 Stable without recent concerns. Continue PRN APAP per standing orders. Seasonal allergy 5617926 04 J30.2 00045 Stable. Continue Flonase. No longer on PRN Atrovent nasal spray. History of urinary tract infection 1006005760 107 Z87.618 0390348 Culture done 12/21/24 grew >100,000 staph coag negative species. D/Donell from hospital on Keflex x 4 days, completed 12/28/24. During most recent inpatient stay, UAs were normal/did not meet reflex criteria.P atient does not currently have urinary symptoms. Monitor clinically . [id number] Sosa Richardson, [address] [address] 02/11/2025 16:11:45 02/18/2025 08:29:07 Acute exacerbation of chronic obstructive pulmonary disease 541575974 J44.1 479334 Not previously on routine inhalers. New complaints of MALDONADO with dry cough. CXR was unremarkab le beyond hyperinfla tion and pt otherwise without URI/respir atory symptoms.A dded Breo inhaler daily. Continue PRN Ventolin & Benzonatat e.Continue to monitor respirator y status -- stable today. Stenosis o f right vertebral artery 009107186 I65.01 07629825 CVA w/u was done during 12/18 to 12/24/24 hospitaliz ation due to generalize d weakness and dizziness. Head CT and Brain MRI were both negative for acute infarct but CTA of the head and neck c/w severe vertebral artery stenosis. Neurology consulted and recommende d dual antiplatel et therapy with ASA and Plavix. F/U with Dr. Ole Feldman (vascular surgery) on 01/09 with order to D/C Plavix.Con tinue Atorvastat in, ASA, and good BP control.Co ntinue therapies via [facility].F/U with Dr. Ole Feldman (vascular) and Dr. Don Albert (neuro) - appointmen ts to be scheduled by daughter after discharge from rehab. Daughter noted that Dr. Feldman did not think dizziness was related to stenosis but does plan to move forward with interventi on. Dizziness [id number] R45 92765 Chronic, leading to falls. Neurology suspected sec to vertebral artery stenosis, however daughter tells me that Dr. Feldman (vascular) did not think this was related.Or thostatics were positive about 1/2 of the time during his last rehab stay here. D/Donell Doxazosin at that time. Orthostati cs here have been normal.Con tinue therapies via [facility].Fall precaution s in place. Benign hypertension 1072 5009 I10 [id number] Unfortunat amandeep both intermitte ntly elevated and orthostati c, making control difficult. Required addition of Amlodipine during November hospitaliz ation.Cont inue Losartan & Amlodipine .Stopped Doxazosin due to orthostasi s. Chronic at rial fibrillation [id number] I48.20 671592 Cards thought dizziness could be sec to arrhythmia . 7-day heart monitor ordered by cards Dr. Ramey in October 2024 read = predomina nt rhythm is sinus rhythm with an average heart rate of 73 beats per minute and a range of 51-121 beats per minute. There were no significan t pauses. During the monitoring period paroxysmal supraventr icular tachycardi a was noted at up to 180 beats per minute (19 episodes, maximum duration 44 beats). There were no episodes of atrial fibrillati on or flutter. There were rare PACs and rare PVCs 4. The patient reported 18 events. Each event correlated with sinus rhythm with an isolated PAC or PVC and sinus tachycardi a at up to 114 beats per minute.St able. Not on rate-contr ollers or oral anticoagul ants beyond baby ASA daily.Per inpatient documentat ion, patient/da ughter have declined OAC -- cost was reportedly an issue and Coumadin offered as a more affordable alternativ e but they also declined due to need for blood draws.F/U with Dr. Bg Ramey as directed. Mixed hyperlipidemia [id number] 874686 E78.2 65223 Presumed stable. Continue Atorvastat in. Hyponatremia 50406988 E8 7.1 07220 Na level trended 129-133 historical ly. Treating supportive ly for now.TSH was low with normal free T4 per labs on 12/21/24. Will need to recheck thyroid levels in mid-January .Continue to trend Na levels as OP. Peripheral arterial disease [id number] I73.9 609382 s/p angioplast y with stent.Cont inue baby ASA, statin, and good BP control.F/ U with Dr. Ole Feldman as above. Benign pro static hyperplasia [id number] N40.0 09520969 Stable. Voiding without concerns, per pt. UA while recently inpatient did not reflex to culture.St opped Doxazosin as above during last rehab stay.Monit or closely. Constipation 08843167 K5 9.00 [id number] Stable. Continue routine Miralax and Docusate. Additional cathartics available per standing orders. Dementia [id number] F03.90 [id number] Appears mild, mood is pleasant. Continue Buspirone routinely. ST has followed. = BIMS score of 5/15. SLUMS score of 3/30. Generalize d anxiety disorder 07972785 F41.1 143963 SEE ABOVE... Recurrent major depression 26995214 F33.9 30173894 SEE ABOVE... Lumbosacra l spondylosis with radiculopathy [id number] M47.27 47538994 Stable without recent concerns. Continue PRN APAP per standing orders. Seasonal allergy 7652866 04 J30.2 90732 Stable. Continue Flonase. No longer on PRN Atrovent nasal spray. History of urinary tract infection [id number] 107 Z87.449 9742388 Culture done 12/21/24 grew >100,000 staph coag negative species. D/Donell from hospital on Keflex x 4 days, completed 12/28/24. During most recent inpatient stay, UAs were normal/did not meet reflex criteria.P atient does not currently have urinary symptoms. Monitor clinically . Health Concerns Section Related Observation LastModified by Organization Detai ls LastModified Time None Recorded Concern Status LastModified by Organization Details LastModified Time None Recorded Advance Directives Directive None Recorded Payers Insurance Date Sequence Insurance Name Policy Number Policy Arcos Covered Member ID Arcos Member ID Guarantor Name 02/15/2025 1 [facility] (MEDICARE REPLACEMENT HMO) [id number] Noé Davila [id number] Noé Lola Notes Date Note Type Note Provider Name and Address Organization Details Recorded Time 01/29/2025 text/html ROS as noted in the HPI F/U COPD with MALDONADO, recurrent syncopal falls, HTN with concurrent orthostasis, recent acute CVA (November 2024), dizziness/unsteady gait, severe stenosis of right vertebral artery, recent UTI, and chronic medical conditions.---01/26/25 Noé is seated in his room in his recliner, eating popcorn. He is confused, in good spirits and friendly. He denies any concerns but continues to express that he is dizzy upon standing. VSS. Staff is without concerns at this time.---01/27/25e patient is sitting in his bedside chair. The patient is a poor historian, reports that he is feeling fine. Tolerated and participated with therapy well today. No nursing concerns.---01/29/25I was stopped by Noé's daughter yesterday in the yi with concerns that her father is MALDONADO, which is a new symptom he has never reported. She tells me that he appears SOB when he is walking. Staff have also noted a dry, nonproductive cough. In response to this concern, I ordered a CXR, which was negative x for COPD/hyperinflation. On exam today, Noé continues to report MALDONADO but denies SOB at rest. He admits to a dry cough without sputum production. Lungs are CTA if a little diminished. He does not appear to be in any distress on exam. He has his Albuterol inhaler at bedside within reach, unclear how often he has been using this. I discuss plan to add a maintenance inhaler, to which he agrees. He otherwise tells me he is doing well and denies having any recent dizziness upon standing (although unclear if this is true due to poor recall). VSS, BPs continue to fluctuate. Staff is without concerns today. Per therapy notes = gait training for >200 ft with CGA wtih cues for upright posture to avoid excessive trunk flexion and for safe LE placemetn in cetner of walker during turns. Veronica Aguero, DYLAN [address] [place], [address], [facility] 01/30/2025 10:01:30 02/02/2025 text/html ROS as noted in the HPI F/U COPD with MALDONADO, recurrent syncopal falls, HTN with concurrent orthostasis, recent acute CVA (November 2024), dizziness/unsteady gait, severe stenosis of right vertebral artery, recent UTI, and chronic medical conditions.---01/26/25 Noé is seated in his room in his recliner, eating popcorn. He is confused, in good spirits and friendly. He denies any concerns but continues to express that he is dizzy upon standing. VSS. Staff is without concerns at this time.---01/27/25e patient is sitting in his bedside chair. The patient is a poor historian, reports that he is feeling fine. Tolerated and participated with therapy well today. No nursing concerns.---01/29/25I was stopped by Noé's daughter yesterday in the yi with concerns that her father is MALDONADO, which is a new symptom he has never reported. She tells me that he appears SOB when he is walking. Staff have also noted a dry, nonproductive cough. In response to this concern, I ordered a CXR, which was negative x for COPD/hyperinflation. On exam today, Noé continues to report MALDONADO but denies SOB at rest. He admits to a dry cough without sputum production. Lungs are CTA if a little diminished. He does not appear to be in any distress on exam. He has his Albuterol inhaler at bedside within reach, unclear how often he has been using this. I discuss plan to add a maintenance inhaler, to which he agrees. He otherwise tells me he is doing well and denies having any recent dizziness upon standing (although unclear if this is true due to poor recall). VSS, BPs continue to fluctuate. Staff is without concerns today. Per therapy notes = gait training for >200 ft with [facility] cues for upright posture to avoid excessive trunk flexion and for safe LE placemetn in cetner of walker during turns.---02/02/25Darrkushal shay is seated in his recliner in his room, continues to report a dry, nonproductive cough that he feels is improving steadily. His lungs remain CTA and he denies any other URI symptoms. He has started Breo inhaler and I have discussed with respiratory therapy, who will be seeing him today. VSS. Staff is without concerns at this time. Per therapy notes = Conducted gait training with FWW 300' CGA cues for coordinated stepping and safety awareness. pt instructed on BLE exercises all planes of motion for strengthening and stability. 20 reps . sit/stand CGA . pvt transfer SBAOrthostatics (Lying -- Sitting -- Standing):01/30 = 164/68 -- 170/82 -- 156/748/2 = not done8/3 = 166/75 -- 151/67 -- 163/788/4 = 158/66 -- 160/88 -- 152/76 Veronica Aguero, DYLAN [address] [facility], [place], [address], [facility] 02/02/2025 16:36:07 02/04/2025 text/html ROS as noted in the HPI F/U COPD with MALDONADO, recurrent syncopal falls, HTN with concurrent orthostasis, recent acute CVA (November 2024), dizziness/unsteady gait, severe stenosis of right vertebral artery, recent UTI, and chronic medical conditions.---01/26/25 Noé is seated in his room in his recliner, eating popcorn. He is confused, in good spirits and friendly. He denies any concerns but continues to express that he is dizzy upon standing. VSS. Staff is without concerns at this time.---01/27/25e patient is sitting in his bedside chair. The patient is a poor historian, reports that he is feeling fine. Tolerated and participated with therapy well today. No nursing concerns.---01/29/25I was stopped by Noé's daughter yesterday in the yi with concerns that her father is MALDONADO, which is a new symptom he has never reported. She tells me that he appears SOB when he is walking. Staff have also noted a dry, nonproductive cough. In response to this concern, I ordered a CXR, which was negative x for COPD/hyperinflation. On exam today, Noé continues to report MALDONADO but denies SOB at rest. He admits to a dry cough without sputum production. Lungs are CTA if a little diminished. He does not appear to be in any distress on exam. He has his Albuterol inhaler at bedside within reach, unclear how often he has been using this. I discuss plan to add a maintenance inhaler, to which he agrees. He otherwise tells me he is doing well and denies having any recent dizziness upon standing (although unclear if this is true due to poor recall). VSS, BPs continue to fluctuate. Staff is without concerns today. Per therapy notes = gait training for >200 ft with CGA wtih cues for upright posture to avoid excessive trunk flexion and for safe LE placemetn in cetner of walker during turns.---02/02/25Daab shay is seated in his recliner in his room, continues to report a dry, nonproductive cough that he feels is improving steadily. His lungs remain CTA and he denies any other URI symptoms. He has started Breo inhaler and I have discussed with respiratory therapy, who will be seeing him today. VSS. Staff is without concerns at this time. Per therapy notes = Conducted gait training with FWW 300' CGA cues for coordinated stepping and safety awareness. pt instructed on BLE exercises all planes of motion for strengthening and stability. 20 reps . sit/stand CGA . pvt transfer SBAOrthostatics (Lying -- Sitting -- Standing):01/30 = 164/68 -- 170/82 -- 156/748/2 = not done02/01 = 166/75 -- 151/67 -- 163/788/4 = 158/66 -- 160/88 -- 152/76---02/04/25Daalex is seated in his recliner in his room, confused, denies concerns or pain today. VSS. Staff is without concerns today. Per therapy notes = gait training for 250 ft with SBA with max cues for safe LE placement in center of walker during turns, toe clearance throughout gait cycle, and cues to avoid floating walker when crossing elevator threshold. Veronica Aguero, DYLAN [address] [place], [address], [facility] 02/04/2025 15:03:54 02/09/2025 text/html ROS as noted in the HPI F/U COPD with MALDONADO, recurrent syncopal falls, HTN with concurrent orthostasis, recent acute CVA (November 2024), dizziness/unsteady gait, severe stenosis of right vertebral artery, recent UTI, and chronic medical conditions.---01/26/25 Noé is seated in his room in his recliner, eating popcorn. He is confused, in good spirits and friendly. He denies any concerns but continues to express that he is dizzy upon standing. VSS. Staff is without concerns at this time.---01/27/25e patient is sitting in his bedside chair. The patient is a poor historian, reports that he is feeling fine. Tolerated and participated with therapy well today. No nursing concerns.---01/29/25I was stopped by Noé's daughter yesterday in the yi with concerns that her father is MALDONADO, which is a new symptom he has never reported. She tells me that he appears SOB when he is walking. Staff have also noted a dry, nonproductive cough. In response to this concern, I ordered a CXR, which was negative x for COPD/hyperinflation. On exam today, Noé continues to report MALDONADO but denies SOB at rest. He admits to a dry cough without sputum production. Lungs are CTA if a little diminished. He does not appear to be in any distress on exam. He has his Albuterol inhaler at bedside within reach, unclear how often he has been using this. I discuss plan to add a maintenance inhaler, to which he agrees. He otherwise tells me he is doing well and denies having any recent dizziness upon standing (although unclear if this is true due to poor recall). VSS, BPs continue to fluctuate. Staff is without concerns today. Per therapy notes = gait training for >200 ft with [facility] cues for upright posture to avoid excessive trunk flexion and for safe LE placemetn in cetner of walker during turns.---02/02/25Daab shay is seated in his recliner in his room, continues to report a dry, nonproductive cough that he feels is improving steadily. His lungs remain CTA and he denies any other URI symptoms. He has started Breo inhaler and I have discussed with respiratory therapy, who will be seeing him today. VSS. Staff is without concerns at this time. Per therapy notes = Conducted gait training with [address]' [facility] cues for coordinated stepping and safety awareness. pt instructed on BLE exercises all planes of motion for strengthening and stability. 20 reps . sit/stand CGA . pvt transfer SBAOrthostatics (Lying -- Sitting -- Standing):01/30 = 164/68 -- 170/82 -- 156/748/2 = not done02/01 = 166/75 -- 151/67 -- 163/788/4 = 158/66 -- 160/88 -- 152/76---02/04/25Daalex is seated in his recliner in his room, confused, denies concerns or pain today. VSS. Staff is without concerns today. Per therapy notes = gait training for 250 ft with SBA with max cues for safe LE placement in center of walker during turns, toe clearance throughout gait cycle, and cues to avoid floating walker when crossing elevator threshold.---02/09/25 Noé is doing well, sleeping in his recliner, awakens to my voice, is without concerns or pain to report. He is in good spirits, remains quite confused. VSS. Staff is without concerns today. Per therapy notes = gait training with FWW with mod cues for safe LE placement in center of walker during turns and max cues for walker safety when crossing thresholds for >200 ft Veronica Aguero, DYLAN [address] [facility], [place], [address], [facility] 02/09/2025 15:24:23 02/11/2025 text/html ROS as noted in the HPI 89-year-old male with PMH of HTN, HLD, Afib, PAD s/p angioplasty with stent, COPD, BPH, Lumbar Spondylosis with Radiculopathy, Dementia, AGATA, MDD, and Allergies presenting for rehabilitation following hospitalization at [facility] from 01/22 to 01/25/25 for recurrent syncopal falls, HTN, and chronic medical conditions. Noé is known to us from a very recent post-acute rehab stay at this facility following inpatient stay at [facility] from 12/18 to 12/24/24 for acute CVA, dizziness/unsteady gait, UTI, weakness, and chronic medical conditions. Prior to his hospitalization, he was living alone in a home, IND with mobility and ADLs. During this hospitalization, he was evaluated by neurology and imaging noted severe stenosis of his right vertebral artery. F/U MRI did not show any acute CVA. He was given orders to f/u as OP for possible stenting. He was continued on baby ASA, Atorvastatin, and was treated for a time with Plavix (this was subsequently stopped at f/u visit with Dr. Ole Feldman (vascular) on 01/09). In response to HTN, Amlodipine was added to his regimen. He was treated for a UTI with IV antibiotics, discharged on 4-days of Keflex. He discharged here for rehabilitation, where he was noted to be both HTN and orthostatic, making management difficult. We stopped his OP Doxazosin due to concern could be contributing to orthostasis. Unfortunately his safety awareness was very poor during his stay, primarily due to his cognitive status. He was seen multiple times ambulating without his w/w and required frequent prompting by staff to utilize it. This reportedly is a long-standing issue as his daughter Roseanne reported he furniture-walked within his home and would only use his w/w when leaving the house. He discharged home with [facility] and family oversight on 01/14/25. Unfortunately in regards to this most recent inpatient stay, the only record available for review today is his hospital admission H&P from 01/22/25. Per this note = 89-year-old with past medical history of atrial fibrillation, COPD, hypertension, dementia and syncope from unknown cause presents the hospital after a syncopal event. Patient states that he does want me admitted to the hospital because he has had plenty of workup for syncope and no cause has been found.Patient's last hospital admission for syncope was on 12/19/2024. Echo with bubble study from the hospitalization shows no visualization of bubbles and right ventricle, MRI with no acute findings, CTA with less than 50% stenosis of the left vertebral artery, 0% of right and left carotid bulb. Daughter is worried about patient's safety and would like him to have placement. Case management unable place patient from ED. HPI is limited as patient is extremely hard of hearing and does not have his hearing aids.Lab work shows sodium 133, BUN of 22, troponin negative, UA negative for infection, chest x-ray with no acute findings, head CT negative for acute finding........Michael manzanares's last hospital admission for syncope was on 12/19/2024. Echo with bubble study from the hospitalization shows no visualization of bubbles and right ventricle, MRI with no acute findings, C with less than 50% stenosis of the left vertebral artery, 0% of right and left carotid bulb. Case management called for placement. CT head negative for acute finding. PT OT evaluate and treat. Orthostatic vital signs negative. New meds: Colace BID.Adjusted meds: None [Buspirone 5 mg BID was PRN previously, now routine BID]Stopped meds: None [No longer on PRN Atrovent Nasal [place]]. Srinivasan is daughter Roseanne Noguera.DNR with comfort measures.PCP is [employer] Mely Melendez.---01/26/25Daab shay is seated in his room in his recliner, eating popcorn. He is confused, in good spirits and friendly. He denies any concerns but continues to express that he is dizzy upon standing. VSS. Staff is without concerns at this time.---01/27/25 patient is sitting in his bedside chair. The patient is a poor historian, reports that he is feeling fine. Tolerated and participated with therapy well today. No nursing concerns.---01/29/25I was stopped by Noé's daughter yesterday in the yi with concerns that her father is MALDONADO, which is a new symptom he has never reported. She tells me that he appears SOB when he is walking. Staff have also noted a dry, nonproductive cough. In response to this concern, I ordered a CXR, which was negative x for COPD/hyperinflation. On exam today, Noé continues to report MALDONADO but denies SOB at rest. He admits to a dry cough without sputum production. Lungs are CTA if a little diminished. He does not appear to be in any distress on exam. He has his Albuterol inhaler at bedside within reach, unclear how often he has been using this. I discuss plan to add a maintenance inhaler, to which he agrees. He otherwise tells me he is doing well and denies having any recent dizziness upon standing (although unclear if this is true due to poor recall). VSS, BPs continue to fluctuate. Staff is without concerns today. Per therapy notes = gait training for >200 ft with [facility] cues for upright posture to avoid excessive trunk flexion and for safe LE placemetn in cetner of walker during turns.---02/02/25Darre laurita is seated in his recliner in his room, continues to report a dry, nonproductive cough that he feels is improving steadily. His lungs remain CTA and he denies any other URI symptoms. He has started Breo inhaler and I have discussed with respiratory therapy, who will be seeing him today. VSS. Staff is without concerns at this time. Per therapy notes = Conducted gait training with FWW 300' [facility] cues for coordinated stepping and safety awareness. pt instructed on BLE exercises all planes of motion for strengthening and stability. 20 reps . sit/stand CGA . pvt transfer SBAOrthostatics (Lying -- Sitting -- Standing):01/30 = 164/68 -- 170/82 -- 156/748/2 = not done02/01 = 166/75 -- 151/67 -- 163/788/4 = 158/66 -- 160/88 -- 152/76---02/04/25Daalex is seated in his recliner in his room, confused, denies concerns or pain today. VSS. Staff is without concerns today. Per therapy notes = gait training for 250 ft with SBA with max cues for safe LE placement in center of walker during turns, toe clearance throughout gait cycle, and cues to avoid floating walker when crossing elevator threshold.---02/09/25 Noé is doing well, sleeping in his recliner, awakens to my voice, is without concerns or pain to report. He is in good spirits, remains quite confused. VSS. Staff is without concerns today. Per therapy notes = gait training with FWW with mod cues for safe LE placement in center of walker during turns and max cues for walker safety when crossing thresholds for >200 ft---02/11/25Daalex is doing well, confused, without pain or concerns to report. I discuss with his daughter his plan to discharge to [facility] tomorrow. She is without concerns regarding his discharge plan. VSS. Staff is without concerns at this time. Per therapy notes = Conducted gait training with FWW 350' plus SBA occasional cues for staying within AD and for safety awareness. Veronica Aguero, DYLAN [address] [facility], [place], [address], [facility] 02/11/2025 16:44:54
--- OUTSIDE RECORDS SUMMARY | 2025-04-15 21:02 | XMS_ITS | Clinical Summary ---
Author Organization [facility] Address [address] [place] [address] Care Team Providers Care Account Executive Name Role Phone Miller Mcmanus MD Primary Care Provider [phone] Allergies No known active allergies Medications aspirin [...] fluticasone propionate (FLONASE) 50 mcg/actuation nasal spray [place] 1 spray twice a day by intranasal route. 5 Active guaiFENesin ER (MUCINEX) 600 mg 12 hr tablet Take 1 tablet every 12 hours by oral route for 5 days. Active ipratropium (ATROVENT) 21 mcg (0.03 %) nasal spray [place] 2 sprays every 8 hours by intranasal [...] (09/21/2020 11:17 AM CDT): Will fill out front end driver form as I don't feel patient [...] ordered Assessment & Plan (07/28/2020 9:42 AM CHIEF WRITER): Likely related to uncontrolled allergies, though not [...] others. Assessment & Plan (05/06/2020 11:31 PM CHIEF WRITER): Unsure exact cause. Depression vs nutrition vs dehydration vs possible parkinsons?? Consult ACO He is recently less than 2 years ago. No family or friend support. Probable poor nutrition. Difficulty getting him to take meds as intended. Frequent falls 05/06/2020 Assessment & Plan (11/03/2020 12:12 PM CDT): Pt refuses cane or walker for ambulation. Assessment & Plan (05/06/2020 11:40 PM CHIEF WRITER): Refuses neuro or PT consult. I think he falls more from flexing his neck versus position changes, stumbling, or orthostasis. During the office visit that took at least 40 minutes, I spent over 50% of the time either counseling, educating, discussing plan of treatment, or answering questions today. Tremor, unspecified 05/06/2020 Assessment & Plan (05/06/2020 11:33 PM CHIEF WRITER): Refuses consult with neuro or anything that might cost him money. Trial Requip (ropinirole) 0.25mg tid. Consult [facility]CO Illiteracy 05/06/2020 Weight loss 01/26/2020 Assessment & Plan (07/28/2020 7:23 PM CHIEF WRITER): Stable with Mirtazapine. Will increase the Mirtazapine to 30mg today. Assessment & Plan (05/06/2020 11:37 PM CHIEF WRITER): Possible improvement with Mirtazapine (if he is [...] 8:55 AM CDT): Will refill Cardura to [facility] program. Hopefully this will allow patient to easy to access his medications. Will also order home health for social work and nursing services. With his blood pressure a elevated he likely needs a nurse to check this and assist him with medications. He is not cognitively aware enough to do this himself. Assessment & Plan (07/28/2020 7:26 PM CHIEF WRITER): Will increase the doxazosin from 1 mg [...] readings. Assessment & Plan (07/28/2019 11:16 PM CHIEF WRITER): New diagnosis. Start doxazosin (Cardura) for combined benefit of HTN and BPH. Call back with update in 2-3 weeks and blood pressure readings if possible. Chronic rhinitis 07/28/2019 Assessment & Plan (07/28/2019 11:20 PM CHIEF WRITER): Start Flonase (fluticasone). Demonstrated use. Hearing difficulty of both ears 12/18/2018 Assessment & Plan (07/28/2020 7:45 PM CHIEF WRITER): Tried to clean out ears today. Assessment & Plan (01/26/2020 11:12 AM CDT): Did not go to audiology due to cost. Assessment & Plan (12/18/2018 9:24 PM CDT): Audiology consult. 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 LDL is controlled well. Prediabetes 06/18/2017 Assessment & Plan (07/28/2020 7:21 PM CHIEF WRITER): Will check new labs and make adjustments if needed. Assessment & Plan (01/26/2020 11:07 AM CDT): Will recheck fasting glucose today. Assessment & Plan (07/28/2019 11:16 PM CHIEF WRITER): Get new labs Assessment & Plan (12/18/2018 9:23 PM CDT): Lower carb diet recommended. Assessment & Plan (06/18/2017 1:26 PM CHIEF WRITER): Please cut down on sweets. Chronic idiopathic constipation 12/13/2016 Assessment & Plan (07/28/2020 7:21 PM CHIEF WRITER): Chronic & stable on meds. Continue current [...] Lipitor. Assessment & Plan (07/28/2020 7:43 PM CHIEF WRITER): Chronic & stable on meds. Continue current treatment. Assessment & Plan (01/26/2020 11:06 AM CDT): Stop rosuvastatin and start atorvastatin 20mg due to cost. Check labs today. Assessment & Plan (07/28/2019 11:20 PM CHIEF WRITER): Get updated labs soon. Assessment & Plan (12/18/2018 9:23 PM CDT): Chronic & stable on meds. Continue current treatment. Assessment & Plan (06/18/2018 2:20 PM CHIEF WRITER): Chronic & stable on meds. Continue current treatment. Assessment & Plan (03/29/2018 1:48 PM CDT): LDL was 69 on 12/10/2017. Continue Mevacor treatment Assessment & Plan (12/17/2017 9:41 PM CDT): Chronic & stable on meds. Continue current treatment. Assessment & Plan (06/18/2017 1:26 PM CHIEF WRITER): Chronic & stable on meds. Continue current [...] pharmacy Assessment & Plan (07/28/2020 7:38 PM CHIEF WRITER): Increase the Mirtazapine to 30mg daily and stop the Amitriptyline 10 mg daily, especially since he has constipation. Assessment & Plan (05/06/2020 11:37 PM CHIEF WRITER): Patient symptomatic and not sure if he [...] treatment. Assessment & Plan (06/18/2018 2:20 PM CHIEF WRITER): Chronic & stable on meds. Continue current treatment. Assessment & Plan (06/18/2017 1:26 PM CHIEF WRITER): Chronic & stable on meds. Continue current [...] 02/15/2015 Assessment & Plan (07/28/2020 7:42 PM CHIEF WRITER): Stable with out prescription medication. He feels [...] treatment. Assessment & Plan (06/18/2018 2:20 PM CHIEF WRITER): Stable without regular use of inhalers. Assessment [...] medication(s) Assessment & Plan (07/28/2020 7:41 PM CHIEF WRITER): Increase the doxazosin from 1 mg to 2 mg. Assessment & Plan (01/26/2020 11:09 AM CDT): Patient only took the doxazosin a couple times. Stop completely due to not taking it regularly and some lightheadedness when standing. Assessment & Plan (07/28/2019 11:16 PM CHIEF WRITER): Start doxazosin (Cardura). Patient opted out of getting PSA testing at this time. Resolved Problems Problem Noted Date Diagnosed Date Resolved Date group home (current) use of anticoagulants 11/13/2023 07/15/2024 Late onset Alzheimer's disea se without behavioral disturbance 09/20/2020 09/20/2020 Bilateral impacted cerumen 07/28/2020 0 09/17/2020 Assessment & Plan (07/28/2020 7:22 PM CHIEF WRITER): Ear irrigation today. Encounter for Medicare annual [...] 12/18/19 Assessment & Plan (06/18/2017 1:20 PM CHIEF WRITER): These look like a type of squamous [...] draws. Assessment & Plan (06/18/2018 2:20 PM CHIEF WRITER): Chronic & stable on meds. Continue current [...] INR Assessment & Plan (06/18/2017 1:27 PM CHIEF WRITER): Chronic & stable on meds. Continue current [...] file Legal Sex Male 3:40 AM CHIEF WRITER Gender Identity Not on file Sexual Orientation Not on file Obstetrics History Last Filed Vital Signs Vital Sign Reading Time Taken Comments Blood Pressure 176/72 01/09/2025 9:41 AM CDT Pulse 76 01/09/2025 9:41 AM CDT Temperature 36.9 C (98.4 F) 07/28/2020 8:55 AM CHIEF WRITER Respiratory Rate 18 11/03/2020 9:16 AM CDT [...] Additional history exists Influenza Vaccine (#1) 2025 , 06/29/2021, 05/06/2020, Additional history exists DTaP/Tdap/Td Vaccine (3 - Td or Tdap) 01/16/2032 01/15/2022, 12/13/2019 Pneumococcal vaccine 65+ Completed 01/26/2020, 11/30 Insurance MEDICARE MEDICARE MEDICARE [facility] Advance Directives For more information, please contact: [phone] Documents on File Type Date Recorded Patient Simonizer Expl anation ADVANCE DIRECTIVE 09/16/2021 9:00 AM Power of [place] Burner Operator-Medical ADVANCE DIRECTIVE 06/23/2021 4:03 PM Annabel r of [place] Burner Operator-Medical ADVANCE DIRECTIVE 03/05/2019 10:13 AM POWER OF [employer] TEACHER-MEDICAL ADVANCE DIRECTIVE 03/04/2019 2:22 PM POWER OF [employer]CHO[employer] TEACHER-MEDICAL Care Teams Account Executive Relationship Specialty Start Date End Date Miller Mcmanus MD [address] [id number] PCP - General Family Medicine 10/20/22
[2025-04-15 21:03] LABS: INR 1.1; Prothrombin Time 13.8 Seconds (11.1-14.7)
[2025-04-15 21:04] LABS: Partial Thromboplastin Time 32.2 Seconds (22.3-36.8)
[2025-04-15 21:06] LABS: Alanine Aminotransferase 21 U/L (6-50); Albumin Level 4.2 g/dL (3.5-5.1); Alkaline Phosphatase 110 U/L (38-126); Anion Gap 9 mmol/L (4-12); Aspartate Amino Transferase 29 U/L (17-59); Bilirubin,Total 1.3 mg/dL (0.2-1.3); Blood Urea Nitrogen 27 mg/dL (9-20); Calcium 9.5 mg/dL (8.4-10.2); Carbon Dioxide 22 mmol/L (22-30); Chloride 91 mmol/L (98-107); Estimated CRCL calculation 45 ml/min; Estimated Glomerular Filt Rate > 60; Glucose 123 mg/dL (65-110); Lipase 65 U/L (23-300); Magnesium 1.9 mg/dL (1.6-2.3); Potassium 4.6 mmol/L (3.4-5.0); Sodium 122 mmol/L (137-145); Total Protein 7.8 g/dL (6.3-8.2)
[2025-04-15 21:15] LABS: NT Pro B Type Natriuretic Pept 673 pg/mL (19.9-100); Troponin I < 0.012 ng/mL (0.000-0.034)
[2025-04-15 21:19] LABS: Procalcitonin 0.1 ng/mL
--- NOTE | 2025-04-15 21:23 | PC.NURSE ---
Pt requesting something for breathing flames. Dr Mars notified.
[2025-04-15 21:28] LABS: Influenza A QL RT-PCR Negative (Negative); Influenza B QL RT-PCR Negative (Negative); RSV RNA, RT-PCR Negative (Negative); SARS-CoV-2 RNA PCR Negative (Negative)
[2025-04-15] MEDS: PANTOPRAZOLE SODIUM IV 40 MG VIAL IV PUSH (21:45)
[2025-04-15] MEDS: IPRATROPIUM 0.5 MG/ALBUTEROL SULFATE 2.5 MG (BASE) AMPUL.NEB 3 ML INHALATION (22:42)
--- NOTE | 2025-04-15 23:06 | ED_ITS ---
HPI - General Adult General Chief complaint: Shortness of Breath/Dyspnea Stated complaint: SOB x 2d Time Seen by Provider: 04/15/25 20:02 History of Present Illness HPI narrative: Patient 89-year-old gentleman presents emergency department chief complaint of shortness of breath for the last 3 days the patient was tested for COVID at the facility and is negative other reports that gets worse with ambulation. Patient does have prior history of dementia Related Data Home Medications ?Medication ?Instructions ?Recorded ?Confirmed ?Last Taken ?Type aspirin 81 mg tablet,delayed 81 mg PO DAILY 12/12/21 0 03/24/25 02/16/22 History release losartan 100 mg tablet 50 mg PO DAILY 01/22/2503/03 Unknown History albuterol sulfate 90 mcg/actuation 1 puff inhalation Q 4H PRN 03/24/25 03/24/25 Unknown History aerosol inhaler (Ventolin HFA) melatonin 5 mg capsule mg PO QHS 03/24/25 03/24/25 Unknown History Allergies Allergy/AdvReac Type Severity Reaction Status Date / Time No Known Allergies Allergy Verified 04/15/25 19:25 Review of Systems 2 Review of Systems: A 10 system review of systems was completed on the patient and is negative except for what is stated in the HPI. Nursing and ancillary documentation was reviewed. [facility] Past Medical History Medical History Lumbar radiculopathy Lumbar spondylosis Peripheral vascular disease Chronic obstructive pulmonary disease Benign prostatic hyperplasia Depression Seasonal allergies Anemia Hypertension Atrial fibrillation Anxiety Constipation Dementia Hyperlipidemia Surgical History Surgical History Status post peripheral artery angioplasty with insertion of stent History of cholecystectomy Family History Family History Other Unknown family medical history Social History Social History Social History: Healthcare power of assistant district attorney: Roseanne Noguera. Code status: Smoking packs per day: 1 Smoking cigarettes per day: 20.0 Smoking status: Former smoker Alcohol intake: current Drinks per week: 1 Substance use: never Substance use type: does not use Do You Feel Safe in your Home?: Yes Lack of Transportation: No Lack of Food: Never True Current Housing: I Have Housing Concerned About Future Housing: No Difficulty Paying Gas/Electric Bills: No Difficulty Paying for Meds: No Currently Unemployed: No Education: Grade School Difficulty w/ Childcare or Family Care: No Spiritual care concerns: No Exam 2 Narrative: GENERAL: Well-appearing, well-nourished, and in no acute distress. HEAD: Normocephalic, atraumatic. EYES: PERRLA and EOMI. ENT: Nares clear, no rhinorrhea or epistaxis. Mucous membranes moist. NECK: Supple. CHEST: Clear to auscultation. No respiratory distress. HEART: Regular rate and rhythm. No murmur heard. Normal peripheral pulses. ABDOMEN: Soft, nontender, nondistended, normal active bowel sounds. EXTREMITIES: Normal range of motion. No edema. SKIN: Warm, dry, no rash. NEURO: No focal deficits. Alert and oriented x3. PSYCH: Normal mood and affect. Course Vital Signs Vital signs: Vital Signs Temperature 37.0 C 04/15/25 19:20 Pulse Rate 95 04/15/25 19:20 Respiratory Rate 14 04/15/25 19:20 Blood Pressure 144/76 H 04/15/25 19:20 Pulse Oximetry 94 04/15/25 19:20 Oxygen Delivery Room Air 04/15/25 19:20 Temperature 37.0 C 04/15/25 19:20 Pulse Rate 74 04/15/25 21:41 Respiratory Rate 27 H 04/15/25 21:32 Blood Pressure 79/65 L 04/15/25 21:32 Pulse Oximetry 95 04/15/25 21:32 Oxygen Delivery Room Air 04/15/25 21:15 Medical Decision Making [facility] Narrative Medical decision making narrative: Differential diagnosis includes pneumonia, COPD exacerbation, pulmonary embolism, intra-abdominal infection, Laboratory studies were obtained on the patient showed a white count of 13.3 ABG showed a pH 7.48 pCO2 of 28.8 PC O2 of 57 sat was 92% electrolytes showed a BUN of 27 with normal creatinine 0.94 lactic acid was 1.1 magnesium was 1.9 troponin was less than 0.012 BNP was 6 7 3 procalcitonin 0.1 COVID flu RSV were negative Chest x-ray showed no focal infiltrate CTA chest showed no evidence of pulmonary embolism and no. Abdomen pelvis was also added as the patient was having diarrhea and this has been negative case was discussed with the hospitalist plan will be to admit the patient for observation and treatment of COPD exacerbation Vital Signs Vital Signs: Vital Signs Temperature 37.0 C 04/15/25 19:20 Pulse Rate 95 04/15/25 19:20 Respiratory Rate 14 04/15/25 19:20 Blood Pressure 144/76 H 04/15/25 19:20 Pulse Oximetry 94 04/15/25 19:20 Oxygen Delivery Room Air 04/15/25 19:20 Temperature 37.0 C 04/15/25 19:20 Pulse Rate 74 04/15/25 21:41 Respiratory Rate 27 H 04/15/25 21:32 Blood Pressure 79/65 L 04/15/25 21:32 Pulse Oximetry 95 04/15/25 21:32 Oxygen Delivery Room Air 04/15/25 21:15 Lab Data 04/15/25 20:42 04/15/25 20:42 Labs: Lab Results 04/15/25 Range/Units 20:42 WBC 13.3 H (4.5-10.0) K/mm3 RBC 4.44 L (4.6-6.20) M/mm3 Hgb 13.8 L (14.0-18.0) g/dL Hct 40.1 L (42.0-52.0) % MCV 90.3 (80-100) fl MCH 31.1 (26-34) pg MCHC 34.4 (32-36) g/dl RDW 12.7 (11.5-14.5) % Plt Count 241 (150-375) k/mm3 MPV 8.7 (7.4-10.4) fl Immature Gran % (Auto) 0.6 H (0-0.5) % Neut % (Auto) 90.0 H (45.5-73.1) % Lymph % (Auto) 3.3 L (18.3-44.2) % Schley % (Auto) 5.5 (2.6-8.5) % Eos % (Auto) 0.4 (0-4.4) % Baso % (Auto) 0.2 (0.2-1.2) % Lymph # (Auto) 0.44 L (0.9-3.2) K/mm3 Schley # (Auto) 0.7 H (0.1-0.6) K/mm3 Eos # (Auto) 0.1 (0-0.3) K/mm3 Baso # (Auto) 0.0 (0.0-0.1) K/mm3 Abs Immat Gran (auto) 0.08 H (0.00-0.031) K/mm3 Absolute Neuts (auto) 12.0 H (1.3-6.7) K/mm3 Absolute Nucleated RBC 0.000 (0.0-0.012) K/mm3 Nucleated RBC % 0.0 (0.0-0.2) % PT 13.8 (11.1-14.7) Seconds INR 1.1 APTT 32.2 (22.3-36.8) Seconds Sodium 122 L (137-145) mmol/L Potassium 4.6 (3.4-5.0) mmol/L Chloride 91 L (98-107) mmol/L Carbon Dioxide 22 (22-30) mmol/L Anion Gap 9 (4-12) mmol/L BUN 27 H D (9-20) mg/dL Creatinine 0.94 (0.7-1.3) mg/dL Estim Creat Clear Calc 45 ml/min Estimated GFR > 60 (59 - ) Glucose 123 H (65-110) mg/dL Lactic Acid 1.1 (0.7-2.0) mmol/L Calcium 9.5 (8.4-10.2) mg/dL Magnesium 1.9 (1.6-2.3) mg/dL Total Bilirubin 1.3 (0.2-1.3) mg/dL AST 29 (17-59) U/L ALT 21 (6-50) U/L Alkaline Phosphatase 110 (38-126) U/L Troponin I < 0.012 (0.000-0.034) ng/mL NT-Pro-B Natriuret Pep 673 H (19.9-100) pg/mL Total Protein 7.8 (6.3-8.2) g/dL Albumin 4.2 (3.5-5.1) g/dL Lipase 65 (23-300) U/L Procalcitonin 0.1 ng/mL Influenza A (RT-PCR) Negative (Negative) Influenza B (RT-PCR) Negative (Negative) RSV (RT-PCR) Negative (Negative) SARS-CoV-2 RNA (RT-PCR) Negative (Negative) ABG Data ABG results: 04/15/25 20:32 Puncture Site Left radial ABG pH 7.485 H ABG pCO2 28.8 L ABG pO2 57.0 L ABG PO2/FiO2 Ratio 2.71 ABG HCO3 21.2 L ABG O2 Saturation 92.1 L ABG O2 Content 18.5 ABG Base Excess -0.9 A-a Gradient 58.2 Oxyhemoglobin 89.7 L Total Hemoglobin 14.7 O2 Delivery Device Room air O2 Liters/Min Not Reportable FiO2 21 Discharge Plan Discharge Clinical Impression: Acute exacerbation of chronic obstructive pulmonary disease Patient Disposition: Still a Patient Condition: Stable Patient Language: Kyrgyz Prescriptions: No Action Frieda Aerosphere 160-9-4.8 mcg/actuation HFA aerosol inhaler 2 inh inhalation BID Qty: 10.7 11RF albuterol sulfate [Ventolin HFA] 90 mcg/actuation HFA aerosol inhaler 1 puff inhalation Q4H PRN Desitin Daily Defense 13 % cream 1 applic topical BID PRN (Reason: skin irritation) Qty: 454 5RF melatonin 5 mg capsule PO QHS aspirin 81 mg tablet,delayed release (DR/EC) 81 mg PO DAILY polyethylene glycol 3350 [Miralax] 17 gram Powder In Packet 17 g PO QAM Qty: 7 0RF amlodipine 5 mg tablet 5 mg PO DAILY Qty: 30 0RF losartan 100 mg Tablet 50 mg PO DAILY buspirone 5 mg Tablet 5 mg PO Q12HR Qty: 60 0RF docusate sodium 100 mg Capsule 100 mg PO BID Qty: 30 0RF atorvastatin [Lipitor] 40 mg tablet 20 mg PO DAILY Qty: 90 3RF Follow-up/Referrals: Mely Gupta NP [Primary Care Provider, [facility]] Time of Disposition: 23:09
--- NOTE | 2025-04-15 23:58 | PC.NURSE ---
Family to RN station inquiring about food and drink. Diet ordered. Food provided for pt.
[2025-04-16 00:01] VITALS: BP 125/93; PULSE 114; RESP 17
[2025-04-16 00:05] LABS: Troponin I < 0.012 ng/mL (0.000-0.034)
[2025-04-16 00:30] VITALS: BP 112/58; PULSE 102; RESP 28
[2025-04-16 00:56] VITALS: BMI 19.9
[2025-04-16 01:06] VITALS: BP 134/57; PULSE 100; RESP 18; TEMP 37.1; O2SAT 96
--- NOTE | 2025-04-16 01:39 | PC.NURSE ---
PATIENT ARRIVED ON 3 MEDSURG AT 0050
[2025-04-16 06:00] VITALS: BP 102/70; PULSE 84; RESP 18; TEMP 36.4; O2SAT 97
[2025-04-16 07:40] VITALS: PULSE 82; RESP 14
[2025-04-16] MEDS: IPRATROPIUM 0.5 MG/ALBUTEROL SULFATE 2.5 MG (BASE) AMPUL.NEB 3 ML INHALATION (07:41)
[2025-04-16 07:47] VITALS: PULSE 91; RESP 14
[2025-04-16] MEDS: LOSARTAN POTASSIUM 50 MG TABLET PO (10:18)
[2025-04-16] MEDS: ASPIRIN 81 MG ENTERIC TABLET PO (10:18)
--- NOTE | 2025-04-16 11:42 | PM.SD2 ---
Same Day Admit/Disch: HPI History of Present Illness Chief complaint: Shortness of breath, COPD exacerbation Narrative: Noé Davila is a 89 year old male who presents to the ED for SOB x3 days. Pt lives at a facility and tested him for COVID which was negative. Pt denies SOB but does state that he has a cough x1 year. Denies CP or any other issues. No CHF or COPD hx. FORMERLY [facility], [facility]–1983 Past Medical History Medical History (Updated 04/17/25 @ 17:14 by Naty Granados APRN) PSVT (paroxysmal supraventricular tachycardia) Pulmonary emboli Peptic ulcer disease History of atrial fibrillation Lumbar radiculopathy Lumbar spondylosis Peripheral vascular disease Chronic obstructive pulmonary disease Benign prostatic hyperplasia Depression Seasonal allergies Anemia Hypertension Atrial fibrillation Anxiety Constipation Dementia Hyperlipidemia Surgical History Surgical History (Updated 04/17/25 @ 08:34 by Tabatha Rosa APRN) H/O transurethral resection of prostate H/O cardiac catheterization H/O angioplasty Iliac vessels H/O cataract extraction Status post peripheral artery angioplasty with insertion of stent History of cholecystectomy Family History Family History Sibling CHF (congestive heart failure) Other Unknown family medical history Social History Social History (Updated 04/17/25 @ 08:21 by Tabatha Rosa APRN) Social History: He is a . He is [employer]. he is retired Healthcare power of patent prosecution attorney: Roseanne Noguera. Code status: DNR Smoking packs per day: 1 Smoking cigarettes per day: 20.0 Smoking status: Former smoker Second hand tobacco smoke exposure: No Alcohol intake: never Drinks per week: 1 Substance use: never Substance use type: does not use Do You Feel Safe in your Home?: Yes Lack of Transportation: No Lack of Food: Never True Current Housing: I Have Housing Concerned About Future Housing: No Difficulty Paying Gas/Electric Bills: No Difficulty Paying for Meds: No Currently Unemployed: No Education: Grade School Difficulty w/ Childcare or Family Care: No Living arrangements: assisted living Occupation/Education: retired Gender identity (if verbalized by the patient): Male Sexual Orientation (if Verbalized by the Patient): Straight or Heterosexual Spiritual care concerns: Yes Agree to blood products: Yes Same Day Admit/Disch: Med Pre-admit Medications Home Medications ?Medication ?Instructions ?Recorded ?Confirmed ?Type aspirin 81 mg tablet,delayed 81 mg PO DAILY 12/12/21 04/17/25 History release polyethylene glycol 3350 17 gram 17 g PO QAM #7 ea 03/15/24 04/17/25 Rx oral powder packet (Miralax) amlodipine 5 mg tablet 5 mg PO DAILY #30 tabs 12/24/24 04/17/25 Rx losartan 100 mg tablet 50 mg PO DAILY 01/22/25 04/17/25 History buspirone 5 mg tablet 5 mg PO Q12HR #60 tabs 01/24/25 04/17/25 Rx docusate sodium 100 mg capsule 100 mg PO BID #30 caps 01/24/25 04/17/25 Rx atorvastatin 40 mg tablet (Lipitor) 20 mg (1/2 x 40 mg) PO DAILY #90 03/04/25 04/17/25 Rx tabs albuterol sulfate 90 mcg/actuation 2 puff inhalation Q4H PRN 03/24/25 04/17/25 History aerosol inhaler (Ventolin HFA) shortness of breath or wheezing benzonatate 200 mg capsule 200 mg PO .Q8HR PRN cough 04/16/25 04/17/25 History fluticasone furoate 100 1 inh inhalation DAILY 04/16/25 04/17/25 History mcg-vilanterol 25 mcg/dose inhalation powder (Breo Ellipta) fluticasone propionate 50 1 spray intranasal BID 04/16/25 04/17/25 History mcg/actuation nasal spray,suspension (24 Hour Allergy Relief) Review of Systems Review of Systems All systems reviewed & are unremarkable except as noted in HPI and below Exam Const: General: comfortable and no acute distress HENMT: Face/Nose/Sinus: Normal nares present Mouth: Yes moist mucous membranes Eyes: General: appearance normal, both eyes and all related structures Sclera: sclerae normal Neck: Neck: supple Carotids: no bruits Resp: Effort & Inspection: normal respiratory effort Auscultation: clear to auscultation bilaterally Other: No cough present upon my exam Cardio: Rate: regular rate Rhythm: regular rhythm GI: Inspection: non-distended GI Palp: Yes Soft to palpation Auscultation: normal bowel sounds Skin: General skin exam: normal color and no rashes or lesions noted Neuro: Speech: normal speech Motor exam (neuro): 5/5 motor strength present throughout and Normal motor muscle tone present throughout Other: A&O x3, unsure why he is at the hospital Extrem: General: normal to inspection Psych: Mental Status: mental status grossly normal Affect: normal affect DS: Data Data Completed and Pending Completed studies during hospitalization: labs, CXR, C/A/P CT Labs on day of discharge: Labs from last 24 hours 04/15/25 04/15/25 04/15/25 23:38 20:42 20:32 WBC 13.3 H RBC 4.44 L Hgb 13.8 L Hct 40.1 L MCV 90.3 MCH 31.1 MCHC 34.4 RDW 12.7 Plt Count 241 MPV 8.7 Immature Gran % (Auto) 0.6 H Neut % (Auto) 90.0 H Lymph % (Auto) 3.3 L Madison % (Auto) 5.5 Eos % (Auto) 0.4 Baso % (Auto) 0.2 Lymph # (Auto) 0.44 L Madison # (Auto) 0.7 H Eos # (Auto) 0.1 Baso # (Auto) 0.0 Abs Immat Gran (auto) 0.08 H Absolute Neuts (auto) 12.0 H Absolute Nucleated RBC 0.000 Nucleated RBC % 0.0 PT 13.8 INR 1.1 APTT 32.2 Puncture Site Left radial ABG pH 7.485 H ABG pCO2 28.8 L ABG pO2 57.0 L ABG PO2/FiO2 Ratio 2.71 ABG HCO3 21.2 L ABG O2 Saturation 92.1 L ABG O2 Content 18.5 ABG Base Excess -0.9 A-a Gradient 58.2 Oxyhemoglobin 89.7 L Total Hemoglobin 14.7 O2 Delivery Device Room air O2 Liters/Min Not Reportable FiO2 21 Sodium 122 L Potassium 4.6 Chloride 91 L Carbon Dioxide 22 Anion Gap 9 BUN 27 H D Creatinine 0.94 Estim Creat Clear Calc 45 Estimated GFR > 60 Glucose 123 H Lactic Acid 1.1 Calcium 9.5 Magnesium 1.9 Total Bilirubin 1.3 AST 29 ALT 21 Alkaline Phosphatase 110 Troponin I < 0.012 < 0.012 NT-Pro-B Natriuret Pep 673 H Total Protein 7.8 Albumin 4.2 Lipase 65 Procalcitonin 0.1 Influenza A (RT-PCR) Negative Influenza B (RT-PCR) Negative RSV (RT-PCR) Negative SARS-CoV-2 RNA (RT-PCR) Negative Imaging Radiologist's impression: CXR: IMPRESSION: No acute pulmonary findings. C/A/P CT: IMPRESSION: There is no pulmonary embolism, aortic dissection, pericardial fluid or thoracic aneurysm. Emphysematous changes. 13.5 mm pulmonary nodule in the left lower lobe. DS: Summary Hospital Course Reason for hospitalization: COPD exacerbation, cough Hospital Course: Patient 89-year-old gentleman presents emergency department chief complaint of shortness of breath for the last 3 days the patient was tested for COVID at the facility and is negative other reports that gets worse with ambulation. Patient does have prior history of dementia. ED: Laboratory studies were obtained on the patient showed a white count of 13.3 ABG showed a pH 7.48 pCO2 of 28.8 PC O2 of 57 sat was 92% electrolytes showed a BUN of 27 with normal creatinine 0.94 lactic acid was 1.1 magnesium was 1.9 troponin was less than 0.012 BNP was 6 7 3 procalcitonin 0.1 COVID flu RSV were negative Chest x-ray showed no focal infiltrate CTA chest showed no evidence of pulmonary embolism and no. Abdomen pelvis was also added as the patient was having diarrhea and this has been negative case was discussed with the hospitalist plan will be to admit the patient for observation and treatment of COPD exacerbation Pt resumed inhaler usage while inpatient as well as normal medication. Pt with no acute distress during exam or when I ambulated with pt. Pt to be discharged back to facility with plans to f/u with PCP for cough (if not better) and prostate. Pt agreeable. CC following. Status at Discharge Overall status at discharge: patient is back to baseline Time Spent with Patient Time attestation: Total time spent providing and/or coordinating discharge services: 45 DS: Admitting Diagnosis Discharge Date 04/16/2025 Admitting Diagnosis COPD exacerbation DS: Discharge Diagnosis Discharge Diagnosis (1) Cough: Code(s): R05.9 - Cough, unspecified Status: Acute Assessment and Plan: Pt denies SOB and CP. He states that he does not know why he is in the hospital, he does report a cough x1 year. -Pt lungs clear throughout -Pt in no distress, resumed home medication including his inhaler in which he states he takes if he ever needs assistance with his breathing. -Pt has an rx of Tessalon pearls for his cough that he reports using, he will go home with these and if no relief, f/u with his PCP. (2) Prostate asymmetry: Code(s): N42.89 - Other specified disorders of prostate Status: Acute Assessment and Plan: CT shows lobulated prostate gland. -F/u with PCP for recs of PSA - to be determined via age appropriate by PCP. Plan D/C back to facility with Tessalon paolo rx. F/u with PCP for worsening cough. CT shows lobulated prostate gland, f/u with PCP for recs of PSA - to be determined via age appropriate by PCP. Discharge Plan Discharge Attending physician on discharge: Guy Seay Consulting providers: Naty Granados; López Ndiaye; Guicho Turner Discharging Clinician: Naty Granados Anticipated Discharge Date/Time: 04/16/25 14:00 Patient Disposition: NH Senior Living/Asst Living Activity: may shower Diet: regular Discharge Instructions: 1. You have been discharged with a cough. Take the prescribed Tessalon paolo medication to help with this. Continue your home COPD medication inhalers as well as needed. 2. Follow-up with your primary care provider for prostate surveillence. Continue to check your blood pressure and blood sugar at home if applicable. Keep your scheduled appts with your primary care provider and any specialist that you may see. Return to the emergency department if you develop sudden shortness of breath, chest pain, a fever of greater than 101.5, or nausea, vomiting, abd pain, or diarrhea that does not go away. Follow-up with your primary care provider within 1-2 weeks, they will want to be updated on your inpatient stay in the hospital. Thank you for [facility] for your healthcare needs. Patient Instructions: COPD (Chronic Obstructive Pulmonary Disease) (DC), Chronic Cough (DC) Patient Language: Yi Stand Alone Forms: General Discharge Information Follow-up/Referrals: Mely Gupta NP [Primary Care Provider, Family Practice] - 2 Weeks Discharge Medications: Continued albuterol sulfate [Ventolin HFA] 90 mcg/actuation HFA aerosol inhaler 2 puff inhalation Q4H PRN (Reason: shortness of breath or wheezing) aspirin 81 mg tablet,delayed release (DR/EC) 81 mg PO DAILY polyethylene glycol 3350 [Miralax] 17 gram Powder In Packet 17 g PO QAM Qty: 7 0RF amlodipine 5 mg tablet 5 mg PO DAILY Qty: 30 0RF losartan 100 mg Tablet 50 mg PO DAILY buspirone 5 mg Tablet 5 mg PO Q12HR Qty: 60 0RF docusate sodium 100 mg Capsule 100 mg PO BID Qty: 30 0RF fluticasone propionate [24 Hour Allergy Relief] 50 mcg/actuation spray,suspension 1 spray intranasal BID Rx Instructions: administer into each nostril benzonatate 200 mg capsule 200 mg PO .Q8HR PRN (Reason: cough) fluticasone furoate-vilanterol [Breo Ellipta] 100-25 mcg/dose blister with device 1 inh inhalation DAILY atorvastatin [Lipitor] 40 mg tablet 20 mg PO DAILY Qty: 90 3RF Date of admission: 04/15/25 23:04 Primary Care Provider: Mely Gupta Admitting Provider: Guy Seay Attending physician on admission: Guy Seay Condition: Stable Quality VTE Prophylaxis VTE prophylaxis: mechanical ordered Hospitalist MIPS Advance Care Plan I have confirmed that the patient's Advanced Care Plan is present, code status is documented, or surrogate decision maker is listed in patient medical record.: Yes Medication Reconciliation I have utilized all available resources to obtain, update and review the patients current medications (includes all prescriptions, OTC, herbals, cannabis, and nutritional supplements).: Yes The patient is not eligible for med reconciliation; the patient is in a emergent medical situation where delaying treatment would jeopardize the patients health.: No Heart Failure (Exclusion) Patient has history of Heart Transplant or Left Ventricular Assistive Device?: No IF YES, STOP HERE Heart Failure (Qualifier) Patient has current or prior documentation of LVEF less than or equal to 40%, or mod/servere depressed LVSF?: No IF NO, STOP HERE
--- NOTE | 2025-04-16 11:56 | PC.NURSE ---
Message left for Josiane Morgan, daughter, to return call to discuss discharge order.
--- NOTE | 2025-04-16 12:13 | PC.NURSE ---
Spoke with Roseanne, daughter, per telephone regarding discharge order.
== END 2025-04-16 13:55 ==
LOC: ANHED 23:09 → ANH3MEDSUR 23:56
PROVIDERS: Admitting Provider Family Medicine; Emergency Provider Emergency Medicine; PCP Nurse Practitioner Family; Visit Provider Family Medicine
DX: J44.1 Chronic obstructive pulmonary disease with (acute) exacerbation (principal); F03.90 Unspecified dementia, unspecified severity, without behavioral disturbance, psychotic disturbance, mood disturbance, and anxiety; N40.0 Benign prostatic hyperplasia without lower urinary tract symptoms; I10 Essential (primary) hypertension; I48.91 Unspecified atrial fibrillation; E78.5 Hyperlipidemia, unspecified; F41.8 Other specified anxiety disorders; Z87.891 Personal history of nicotine dependence; Z20.822 Contact with and (suspected) exposure to COVID-19
CPT/HCPCS: 36415; 36600; 71045; 71275; 74177; 80053; 82805; 83605; 83690; 83735; 83880; 84145; 84484; 85018; 85025; 85610; 85730; 87637; 93005; 94640; 96374; 96375; 99285; A9270; G0378; J2470; J2919; Q9967

== ENCOUNTER 2025-04-16 18:34 | Inpatient (IN) | payer OTHER, MEDICAID, SELFPAY ==
[2025-04-16] VITALS (13 sets, daily range): BP systolic 146–170; BP diastolic 69–77; PULSE 79–108; RESP 17–30; TEMP 36.6; O2SAT 93–97
--- NOTE | ~2025-04-16 | XR_ITS ---
EXAM/PROCEDURE: XR chest 1V portable HISTORY: Shortness of breath COMPARISON: April 16, plain film. CT from April 15 TECHNIQUE: AP view(s) of the chest. FINDINGS: LUNGS: Exam is obtained in expiration, causing crowding of the lung markings. There is increased stranding density at the lung bases, which could just relate to the expiratory status and the chronic atelectasis, subpleural cyst formation, and bronchiectasis. Some component of this being acute cannot be excluded. PLEURAL SPACES: Clear. No evidence of fluid or pneumothorax. HEART/ MEDIASTINUM: Normal in appearance. SOFT TISSUES: No significant findings. BONES: No acute osseous abnormality. IMPRESSION: The findings may all be chronic. Some degree of superimposed acute process cannot be excluded. Consider chest CT to assess for change regarding the findings in the lung bases. Reviewed, dictated and finalized at location A. PENDENT FILM MAKER IMPRESSION: The findings may all be chronic. Some degree of superimposed acute process luisa ot be excluded. Consider chest CT to assess for change regarding the findings i n the lung bases.
--- NOTE | ~2025-04-16 | XR_ITS ---
EXAMINATION: XR chest 1V portable COMPARISON: No comparisons available. HISTORY: elevated WBC FINDINGS: Scattered bilateral infiltrates. No pneumothorax. Heart is normal size. Mediastinal and hilar contours are within normal limits. Bony thorax no acute abnormality. Miscellaneous: None Impression: Bilateral pneumonia Reviewed, dictated and finalized at location P. Impression: Bilateral pneumonia
--- NOTE | ~2025-04-16 | XR_ITS ---
EXAMINATION: XR chest 1V portable COMPARISON: No comparisons available. HISTORY: Shortness of breath FINDINGS: Bilateral scattered interstitial airspace opacities No pneumothorax. Heart is normal size. Mediastinal and hilar contours are within normal limits. Bony thorax no acute abnormality. Miscellaneous: None Impression: Probable viral pneumonitis Reviewed, dictated and finalized at location P. Impression: Probable viral pneumonitis
--- NOTE | ~2025-04-16 | US_ITS ---
US venous doppler LE BI INDICATION: Pain and swelling in both lower extremities. COMPARISON: None. TECHNIQUE: The deep veins of both lower extremities were evaluated with Duplex Doppler, color Doppler, and high-resolution B-mode sonography. Evaluated veins include the common femoral, femoral, and popliteal veins. The calf veins were also evaluated. Compression and augmentation maneuvers were performed. FINDINGS: The deep veins of both lower extremities were compressible and demonstrated spontaneous phasic waveforms with an appropriate response to augmentation maneuvers. The visualized calf veins were patent. IMPRESSION: There was no sonographic evidence of deep vein thrombosis in both lower extremities. Reviewed, dictated and finalized at location S. IMPRESSION: There was no sonographic evidence of deep vein thrombosis in both lower extremi ties.
--- NOTE | ~2025-04-16 | XR_ITS ---
XR chest 1V portable INDICATION:sob . REFERENCE: None FINDINGS: A single AP of the chest demonstrates normal heart size. The lungs are clear. There is no evidence of pneumothorax or pleural effusion. IMPRESSION: No acute pulmonary findings. Reviewed, dictated and finalized at location S.
--- NOTE | ~2025-04-16 | CT_ITS ---
EXAMINATION: CT brain wo dayne, 04/22/2025 14:30 CDT HISTORY: confusion COMPARISON: No comparisons available. Technique: Axial images obtained of the brain without contrast. One or more of the following dose reduction techniques were used: automated exposure control, adjustment of the mA and/or kV according to patient size, use of iterative reconstruction technique. Findings: No acute infarct or parenchymal hemorrhage. No abnormal mass or mass effect. No midline shift. No extra-axial fluid collections. No hydrocephalus. Mastoid air cells unremarkable. Sinuses and orbits unremarkable. No acute fracture. No significant facial or scalp soft tissue swelling evident. No radiopaque foreign body is seen. Impression: 1.No acute intracranial abnormality. Reviewed, dictated and finalized at location P. Impression: 1.No acute intracranial abnormality.
--- OUTSIDE RECORDS SUMMARY | 2025-04-16 18:37 | XMS_ITS | Clinical Summary ---
Author Organization [facility] Address [address] [place] [address] Care Team Providers Care Threshing Operator Name Role Phone Miller Mcmanus MD Primary Care Provider [phone] Allergies No known active allergies Medications aspirin [...] fluticasone propionate (FLONASE) 50 mcg/actuation nasal spray Ayer 1 spray twice a day by intranasal route. 5 Active guaiFENesin ER (MUCINEX) 600 mg 12 hr tablet Take 1 tablet every 12 hours by oral route for 5 days. Active ipratropium (ATROVENT) 21 mcg (0.03 %) nasal spray Ayer 2 sprays every 8 hours by intranasal [...] (09/21/2020 11:17 AM CDT): Will fill out fleet driver form as I don't feel patient [...] ordered Assessment & Plan (07/28/2020 9:42 AM ARCHITECTURAL ENGINEER): Likely related to uncontrolled allergies, though not [...] others. Assessment & Plan (05/06/2020 11:31 PM ARCHITECTURAL ENGINEER): Unsure exact cause. Depression vs nutrition vs dehydration vs possible parkinsons?? Consult ACO He is recently less than 2 years ago. No family or friend support. Probable poor nutrition. Difficulty getting him to take meds as intended. Frequent falls 05/06/2020 Assessment & Plan (11/03/2020 12:12 PM CDT): Pt refuses cane or walker for ambulation. Assessment & Plan (05/06/2020 11:40 PM ARCHITECTURAL ENGINEER): Refuses neuro or PT consult. I think he falls more from flexing his neck versus position changes, stumbling, or orthostasis. During the office visit that took at least 40 minutes, I spent over 50% of the time either counseling, educating, discussing plan of treatment, or answering questions today. Tremor, unspecified 05/06/2020 Assessment & Plan (05/06/2020 11:33 PM ARCHITECTURAL ENGINEER): Refuses consult with neuro or anything that might cost him money. Trial Requip (ropinirole) 0.25mg tid. Consult ACO Illiteracy 05/06/2020 Weight loss 01/26/2020 Assessment & Plan (07/28/2020 7:23 PM ARCHITECTURAL ENGINEER): Stable with Mirtazapine. Will increase the Mirtazapine to 30mg today. Assessment & Plan (05/06/2020 11:37 PM ARCHITECTURAL ENGINEER): Possible improvement with Mirtazapine (if he is [...] 8:55 AM CDT): Will refill Cardura to [facility] program. Hopefully this will allow patient to easy to access his medications. Will also order home health for social work and nursing services. With his blood pressure a elevated he likely needs a nurse to check this and assist him with medications. He is not cognitively aware enough to do this himself. Assessment & Plan (07/28/2020 7:26 PM ARCHITECTURAL ENGINEER): Will increase the doxazosin from 1 mg [...] readings. Assessment & Plan (07/28/2019 11:16 PM ARCHITECTURAL ENGINEER): New diagnosis. Start doxazosin (Cardura) for combined benefit of HTN and BPH. Call back with update in 2-3 weeks and blood pressure readings if possible. Chronic rhinitis 07/28/2019 Assessment & Plan (07/28/2019 11:20 PM ARCHITECTURAL ENGINEER): Start Flonase (fluticasone). Demonstrated use. Hearing difficulty of both ears 12/18/2018 Assessment & Plan (07/28/2020 7:45 PM ARCHITECTURAL ENGINEER): Tried to clean out ears today. Assessment & Plan (01/26/2020 11:12 AM CDT): Did not go to audiology due to cost. Assessment & Plan (12/18/2018 9:24 PM CDT): Audiology consult. 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 LDL is controlled well. Prediabetes 06/18/2017 Assessment & Plan (07/28/2020 7:21 PM ARCHITECTURAL ENGINEER): Will check new labs and make adjustments if needed. Assessment & Plan (01/26/2020 11:07 AM CDT): Will recheck fasting glucose today. Assessment & Plan (07/28/2019 11:16 PM ARCHITECTURAL ENGINEER): Get new labs Assessment & Plan (12/18/2018 9:23 PM CDT): Lower carb diet recommended. Assessment & Plan (06/18/2017 1:26 PM ARCHITECTURAL ENGINEER): Please cut down on sweets. Chronic idiopathic constipation 12/13/2016 Assessment & Plan (07/28/2020 7:21 PM ARCHITECTURAL ENGINEER): Chronic & stable on meds. Continue current [...] Lipitor. Assessment & Plan (07/28/2020 7:43 PM ARCHITECTURAL ENGINEER): Chronic & stable on meds. Continue current treatment. Assessment & Plan (01/26/2020 11:06 AM CDT): Stop rosuvastatin and start atorvastatin 20mg due to cost. Check labs today. Assessment & Plan (07/28/2019 11:20 PM ARCHITECTURAL ENGINEER): Get updated labs soon. Assessment & Plan (12/18/2018 9:23 PM CDT): Chronic & stable on meds. Continue current treatment. Assessment & Plan (06/18/2018 2:20 PM ARCHITECTURAL ENGINEER): Chronic & stable on meds. Continue current treatment. Assessment & Plan (03/29/2018 1:48 PM CDT): LDL was 69 on 12/10/2017. Continue Mevacor treatment Assessment & Plan (12/17/2017 9:41 PM CDT): Chronic & stable on meds. Continue current treatment. Assessment & Plan (06/18/2017 1:26 PM ARCHITECTURAL ENGINEER): Chronic & stable on meds. Continue current [...] pharmacy Assessment & Plan (07/28/2020 7:38 PM ARCHITECTURAL ENGINEER): Increase the Mirtazapine to 30mg daily and stop the Amitriptyline 10 mg daily, especially since he has constipation. Assessment & Plan (05/06/2020 11:37 PM ARCHITECTURAL ENGINEER): Patient symptomatic and not sure if he [...] treatment. Assessment & Plan (06/18/2018 2:20 PM ARCHITECTURAL ENGINEER): Chronic & stable on meds. Continue current treatment. Assessment & Plan (06/18/2017 1:26 PM ARCHITECTURAL ENGINEER): Chronic & stable on meds. Continue current [...] 02/15/2015 Assessment & Plan (07/28/2020 7:42 PM ARCHITECTURAL ENGINEER): Stable with out prescription medication. He feels [...] treatment. Assessment & Plan (06/18/2018 2:20 PM ARCHITECTURAL ENGINEER): Stable without regular use of inhalers. Assessment [...] medication(s) Assessment & Plan (07/28/2020 7:41 PM ARCHITECTURAL ENGINEER): Increase the doxazosin from 1 mg to 2 mg. Assessment & Plan (01/26/2020 11:09 AM CDT): Patient only took the doxazosin a couple times. Stop completely due to not taking it regularly and some lightheadedness when standing. Assessment & Plan (07/28/2019 11:16 PM ARCHITECTURAL ENGINEER): Start doxazosin (Cardura). Patient opted out of getting PSA testing at this time. Resolved Problems Problem Noted Date Diagnosed Date Resolved Date [facility] (current) use of anticoagulants 11/13/2023 07/15/2024 Late onset Alzheimer's disea se without behavioral disturbance 09/20/2020 09/20/2020 Bilateral impacted cerumen 07/28/2020 0 09/17/2020 Assessment & Plan (07/28/2020 7:22 PM ARCHITECTURAL ENGINEER): Ear irrigation today. Encounter for Medicare annual [...] 12/18/19 Assessment & Plan (06/18/2017 1:20 PM ARCHITECTURAL ENGINEER): These look like a type of squamous [...] draws. Assessment & Plan (06/18/2018 2:20 PM ARCHITECTURAL ENGINEER): Chronic & stable on meds. Continue current [...] INR Assessment & Plan (06/18/2017 1:27 PM ARCHITECTURAL ENGINEER): Chronic & stable on meds. Continue current [...] on file Legal Sex Male 3:40 AM ARCHITECTURAL ENGINEER Gender Identity Not on file Sexual Orientation Not on file Obstetrics History Last Filed Vital Signs Vital Sign Reading Time Taken Comments Blood Pressure 176/72 01/09/2025 9:41 AM CDT Pulse 76 01/09/2025 9:41 AM CDT Temperature 36.9 C (98.4 F) 07/28/2020 8:55 AM ARCHITECTURAL ENGINEER Respiratory Rate 18 11/03/2020 9:16 AM CDT [...] Completed 01/26/2020, 11/30 Insurance MEDICARE MEDICARE MEDICARE [facility] Advance Directives For more information, please contact: [phone] Documents on File Type Date Recorded Patient Back Tender Cloth Printing Expl anation ADVANCE DIRECTIVE 09/16/2021 9:00 AM Power of Thin Film Technician-Medical ADVANCE DIRECTIVE 06/23/2021 4:03 PM Annabel r of Thin Film Technician-Medical ADVANCE DIRECTIVE 03/05/2019 10:13 AM POWER OF JUNIOR WEB DEVELOPER-MEDICAL ADVANCE DIRECTIVE 03/04/2019 2:22 PM POWER OF JUNIOR WEB DEVELOPER-MEDICAL Care Teams Threshing Operator Relationship Specialty Start Date End Date Miller Mcmanus MD [address] [address] PCP - General Family Medicine 10/20/22
--- NOTE | 2025-04-16 20:24 | ECG_ITS ---
Test Date: 2025-04-16 21:11:40 Measurements Intervals Challenge Rate: 80 P: 101 DE: 145 QRS: 54 QRSD: 148 T: 45 QT: 413 QTc: 478 Interpretive Statements SINUS RHYTHM RIGHT BUNDLE BRANCH BLOCK BASELINE ARTIFACT- I, II, III, AVR, AVL, AVF, V1-V6 ABNORMAL ECG Compared to ECG 04/15/2025 20:35:25 Left anterior fascicular block no longer present Electronically Signed On 04-17-2025 06:25:38 CDT by López Ndiaye D.O.
--- NOTE | 2025-04-16 20:47 | ED.SOB ---
HPI - SOB/Dyspnea General Chief Complaint: Shortness of Breath/Dyspnea Stated Complaint: SOB Time Seen by Provider: 04/16/25 20:33 History of Present Illness HPI Narrative: Pt was seen last night for sob and admitted with copd exacerbation. Pt says he was discharged at 1300 this afternoon but when he went home he could not wlak across the room without becoming severely SOB. Pt has dry non productive cough. Pt denies fever or chills. Pt denies CP. Pt has some burning mid abdominal pain that was relieved with a pill yesterday but recurred after discharge. Pt and family would like him to be admitted again because he is so SOB and weak he can't walk across the room and this is new. Pt had CT last night no PE. Related Data Home Medications ?Medication ?Instructions ?Recorded ?Confirmed ?Last Taken ?Type aspirin 81 mg tablet,delayed 81 mg PO DAILY 12/12/21 04/16/25 02/16/22 History release losartan 100 mg tablet 50 mg PO DAILY 01/22/25 04/16/25 Unknown History albuterol sulfate 90 mcg/actuation 2 puff inhalation Q4H PRN 03/24/25 04/16/25 Unknown History aerosol inhaler (Ventolin HFA) shortness of breath or wheezing benzonatate 200 mg capsule 200 mg PO .Q8HR PRN cough 04/16/25 04/16/25 Unknown History fluticasone furoate 100 1 inh inhalation DAILY 04/16/25 04/16/25 Unknown History mcg-vilanterol 25 mcg/dose inhalation powder (Breo Ellipta) fluticasone propionate 50 1 spray intranasal BID 04/16/25 04/16/25 Unknown History mcg/actuation nasal spray,suspension (24 Hour Allergy Relief) Allergies Allergy/AdvReac Type Severity Reaction Status Date / Time No Known Allergies Allergy Verified 04/16/25 01:03 Review of Systems Review of Systems: All systems reviewed & are unremarkable except as noted in HPI and below PMFSH Past Medical History Medical History Lumbar radiculopathy Lumbar spondylosis Peripheral vascular disease Chronic obstructive pulmonary disease Benign prostatic hyperplasia Depression Seasonal allergies Anemia Hypertension Atrial fibrillation Anxiety Constipation Dementia Hyperlipidemia Surgical History Surgical History Status post peripheral artery angioplasty with insertion of stent History of cholecystectomy Family History Family History (Updated 04/16/25 @ 01:04 by Juan Sheehan RN) Sibling CHF (congestive heart failure) Other Unknown family medical history Social History Social History Social History: Healthcare power of deputy attorney general: Roseanne Noguera. Code status: Smoking packs per day: 1 Smoking cigarettes per day: 20.0 Smoking status: Former smoker Alcohol intake: never Drinks per week: 1 Substance use: never Substance use type: does not use Do You Feel Safe in your Home?: Yes Lack of Transportation: No Lack of Food: Never True Current Housing: I Have Housing Concerned About Future Housing: No Difficulty Paying Gas/Electric Bills: No Difficulty Paying for Meds: No Currently Unemployed: No Education: Grade School Difficulty w/ Childcare or Family Care: No Spiritual care concerns: Yes Exam Const: General: healthy appearing and no acute distress Nutritional Appearance: well nourished Orientation/consciousness: patient oriented x3 Limitations: no limitations Neck: Neck: normal visual inspection Chest: Chest palpation & inspection: normal inspection of the chest Resp: Effort & Inspection: normal respiratory effort Auscultation: clear to auscultation bilaterally Cardio: Rate: regular rate Rhythm: regular rhythm GI: GI Palp: Yes Soft to palpation and No Tenderness to palpation present (GI) Auscultation: normal bowel sounds Back/Spine/Pelvis: Back: no CVA tenderness Skin: General skin exam: normal color Rashes: no rashes Wounds: no wounds Neuro: General: patient oriented x3, moves all extremities, no meningeal signs, no focal motor deficits and CN's II-XI intact bilaterally Cranial nerves: Yes Nystagmus not present Speech: normal speech Extrem: General: normal to inspection and no clubbing, cyanosis or edema Psych: Mental Status: mental status grossly normal Affect: normal affect Attitude: cooperative Course Vital Signs Vital signs: Vital Signs Temperature 97.9 F 04/16/25 18:42 Pulse Rate 102 H 04/16/25 18:42 Respiratory Rate 20 04/16/25 18:42 Blood Pressure 170/69 H 04/16/25 18:42 Pulse Oximetry 93 04/16/25 18:42 Oxygen Delivery Room Air 04/16/25 18:42 Temperature 97.9 F 04/16/25 18:42 Pulse Rate 82 04/16/25 21:40 Respiratory Rate 18 04/16/25 21:40 Blood Pressure 170/69 H 04/16/25 18:42 Pulse Oximetry 93 04/16/25 18:42 Oxygen Delivery Room Air 04/16/25 18:42 MDM - SOB/Dyspnea MDM Narrative Medical decision making narrative: pt just discharged today after short stay with copd. Pt returned tonight because can't walk across room without becoming SOB. will repeat labs and cxr and ekg. discussed with Tabatha Erwin and agrees to admit. Differential Diagnosis Differential diagnosis: Likely acute exacerbation of chronic obstructive airways disease, congestive heart failure, community acquired pneumonia and other (cad) Lab Data Attestation: I reviewed the patient's lab results. 04/16/25 21:03 04/16/25 21:03 Labs: Lab Results 04/16/25 Range/Units 21:03 WBC 21.1 H (4.5-10.0) K/mm3 RBC 4.30 L (4.6-6.20) M/mm3 Hgb 13.3 L (14.0-18.0) g/dL Hct 38.9 L (42.0-52.0) % MCV 90.5 (80-100) fl MCH 30.9 (26-34) pg MCHC 34.2 (32-36) g/dl RDW 12.7 (11.5-14.5) % Plt Count 257 (150-375) k/mm3 MPV 8.8 (7.4-10.4) fl Immature Gran % (Auto) 0.6 H (0-0.5) % Neut % (Auto) 94.9 H (45.5-73.1) % Lymph % (Auto) 1.1 L (18.3-44.2) % [place] % (Auto) 3.3 (2.6-8.5) % Eos % (Auto) 0.0 (0-4.4) % Baso % (Auto) 0.1 L (0.2-1.2) % Lymph # (Auto) 0.23 L (0.9-3.2) K/mm3 [place] # (Auto) 0.7 H (0.1-0.6) K/mm3 Eos # (Auto) 0.0 (0-0.3) K/mm3 Baso # (Auto) 0.0 (0.0-0.1) K/mm3 Abs Immat Gran (auto) 0.13 H (0.00-0.031) K/mm3 Absolute Neuts (auto) 20.1 H (1.3-6.7) K/mm3 Absolute Nucleated RBC 0.000 (0.0-0.012) K/mm3 Nucleated RBC % 0.0 (0.0-0.2) % PT 14.0 (11.1-14.7) Seconds INR 1.1 APTT 27.9 (22.3-36.8) Seconds Sodium 123 L (137-145) mmol/L Potassium 4.2 (3.4-5.0) mmol/L Chloride 91 L (98-107) mmol/L Carbon Dioxide 21 L (22-30) mmol/L Anion Gap 11 (4-12) mmol/L BUN 28 H (9-20) mg/dL Creatinine 1.05 (0.7-1.3) mg/dL Estim Creat Clear Calc 42 ml/min Estimated GFR > 60 (59 - ) Glucose 196 H (65-110) mg/dL Calcium 9.3 (8.4-10.2) mg/dL Total Bilirubin 0.9 (0.2-1.3) mg/dL AST 29 (17-59) U/L ALT 25 (6-50) U/L Alkaline Phosphatase 106 (38-126) U/L Troponin I < 0.012 (0.000-0.034) ng/mL Total Protein 7.4 (6.3-8.2) g/dL Albumin 4.1 (3.5-5.1) g/dL Imaging Data Attestation: I personally reviewed and interpreted this imaging study as follows: [facility] impression: [facility] Radiologist's impression: [place] [address] [place], [place] [id number] XRay Report Signed Patient: Noé Davila : 1935 MR#: [id number] Age: 89 Acct:[id number] Loc: [facility] ADM Date: 04/16/[address]: Ordering Physician: Michel De La Vega MD Date of Service: 04/16/25 Procedure(s): XR chest 1V portable Accession Number(s): [id number] cc: Mansi Sanchez III, DO; Mely Gupta APN; Michel De La Vega MD~ XR chest 1V portable INDICATION:sob . REFERENCE: None FINDINGS: A single AP of the chest demonstrates normal heart size. The lungs are clear. There is no evidence of pneumothorax or pleural effusion. IMPRESSION: No acute pulmonary findings. Reviewed, dictated and finalized at location S. Please be advised this is a medical document. It is intended for qpcl-qv-hgui communication. It is written in medical language and may contain unfamiliar abbreviations or verbiage. Medical documents are intended to carry relevant information, facts as evident, and the clinical opinion of the practitioner at the time of the encounter. This report may have been done utilizing a voice recognition system. Attempts have been made to correct errors. However, there may be uncorrected grammatical, spelling, and recognition errors present. The file time of this note does not necessarily represent the time of service. Dictated By: Guicho Turner MD 04/16/252120 Signed By: <Electronically signed by Guicho Turner MD in OV> 04/16/252121 ECG Data EKG #1: Attestation: I personally reviewed and interpreted this ECG as follows: Interpretation: nsr rate 80, rbbb no acute st or t wave changes Discharge Plan Discharge Clinical Impression: COPD exacerbation Patient Disposition: Still a Patient Condition: Stable Patient Language: Bol[place]ian Prescriptions: No Action albuterol sulfate [Ventolin HFA] 90 mcg/actuation HFA aerosol inhaler 2 puff inhalation Q4H PRN (Reason: shortness of breath or wheezing) aspirin 81 mg tablet,delayed release (DR/EC) 81 mg PO DAILY polyethylene glycol 3350 [Miralax] 17 gram Powder In Packet 17 g PO QAM Qty: 7 0RF amlodipine 5 mg tablet 5 mg PO DAILY Qty: 30 0RF losartan 100 mg Tablet 50 mg PO DAILY buspirone 5 mg Tablet 5 mg PO Q12HR Qty: 60 0RF docusate sodium 100 mg Capsule 100 mg PO BID Qty: 30 0RF fluticasone propionate [24 Hour Allergy Relief] 50 mcg/actuation spray,suspension 1 spray intranasal BID Rx Instructions: administer into each nostril benzonatate 200 mg capsule 200 mg PO .Q8HR PRN (Reason: cough) fluticasone furoate-vilanterol [Breo Ellipta] 100-25 mcg/dose blister with device 1 inh inhalation DAILY atorvastatin [Lipitor] 40 mg tablet 20 mg PO DAILY Qty: 90 3RF Follow-up/Referrals: Mely Gupta NP [Primary Care Provider, Family Practice]
--- OUTSIDE RECORDS SUMMARY | 2025-04-16 20:51 | XMS_ITS | Clinical Summary ---
Author Organization [facility] Address [address] [place] [address] Care Team Providers Care Rand Sewer Name Role Phone Miller Mcmanus MD Primary Care Provider [phone] Allergies No known active allergies Medications aspirin [...] fluticasone propionate (FLONASE) 50 mcg/actuation nasal spray [place] 1 spray twice a day by intranasal route. 5 Active guaiFENesin ER (MUCINEX) 600 mg 12 hr tablet Take 1 tablet every 12 hours by oral route for 5 days. Active ipratropium (ATROVENT) 21 mcg (0.03 %) nasal spray [place] 2 sprays every 8 hours by intranasal [...] (09/21/2020 11:17 AM CDT): Will fill out wheat combine driver form as I don't feel patient [...] ordered Assessment & Plan (07/28/2020 9:42 AM PICK REMOVER): Likely related to uncontrolled allergies, though not [...] others. Assessment & Plan (05/06/2020 11:31 PM PICK REMOVER): Unsure exact cause. Depression vs nutrition vs dehydration vs possible parkinsons?? Consult ACO He is recently less than 2 years ago. No family or friend support. Probable poor nutrition. Difficulty getting him to take meds as intended. Frequent falls 05/06/2020 Assessment & Plan (11/03/2020 12:12 PM CDT): Pt refuses cane or walker for ambulation. Assessment & Plan (05/06/2020 11:40 PM PICK REMOVER): Refuses neuro or PT consult. I think he falls more from flexing his neck versus position changes, stumbling, or orthostasis. During the office visit that took at least 40 minutes, I spent over 50% of the time either counseling, educating, discussing plan of treatment, or answering questions today. Tremor, unspecified 05/06/2020 Assessment & Plan (05/06/2020 11:33 PM PICK REMOVER): Refuses consult with neuro or anything that might cost him money. Trial Requip (ropinirole) 0.25mg tid. Consult [facility]CO Illiteracy 05/06/2020 Weight loss 01/26/2020 Assessment & Plan (07/28/2020 7:23 PM PICK REMOVER): Stable with Mirtazapine. Will increase the Mirtazapine to 30mg today. Assessment & Plan (05/06/2020 11:37 PM PICK REMOVER): Possible improvement with Mirtazapine (if he is [...] 8:55 AM CDT): Will refill Cardura to meets program. Hopefully this will allow patient to easy to access his medications. Will also order home health for social work and nursing services. With his blood pressure a elevated he likely needs a nurse to check this and assist him with medications. He is not cognitively aware enough to do this himself. Assessment & Plan (07/28/2020 7:26 PM PICK REMOVER): Will increase the doxazosin from 1 mg [...] readings. Assessment & Plan (07/28/2019 11:16 PM PICK REMOVER): New diagnosis. Start doxazosin (Cardura) for combined benefit of HTN and BPH. Call back with update in 2-3 weeks and blood pressure readings if possible. Chronic rhinitis 07/28/2019 Assessment & Plan (07/28/2019 11:20 PM PICK REMOVER): Start Flonase (fluticasone). Demonstrated use. Hearing difficulty of both ears 12/18/2018 Assessment & Plan (07/28/2020 7:45 PM PICK REMOVER): Tried to clean out ears today. Assessment & Plan (01/26/2020 11:12 AM CDT): Did not go to audiology due to cost. Assessment & Plan (12/18/2018 9:24 PM CDT): Audiology consult. 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 LDL is controlled well. Prediabetes 06/18/2017 Assessment & Plan (07/28/2020 7:21 PM PICK REMOVER): Will check new labs and make adjustments if needed. Assessment & Plan (01/26/2020 11:07 AM CDT): Will recheck fasting glucose today. Assessment & Plan (07/28/2019 11:16 PM PICK REMOVER): Get new labs Assessment & Plan (12/18/2018 9:23 PM CDT): Lower carb diet recommended. Assessment & Plan (06/18/2017 1:26 PM PICK REMOVER): Please cut down on sweets. Chronic idiopathic constipation 12/13/2016 Assessment & Plan (07/28/2020 7:21 PM PICK REMOVER): Chronic & stable on meds. Continue current [...] Lipitor. Assessment & Plan (07/28/2020 7:43 PM PICK REMOVER): Chronic & stable on meds. Continue current treatment. Assessment & Plan (01/26/2020 11:06 AM CDT): Stop rosuvastatin and start atorvastatin 20mg due to cost. Check labs today. Assessment & Plan (07/28/2019 11:20 PM PICK REMOVER): Get updated labs soon. Assessment & Plan (12/18/2018 9:23 PM CDT): Chronic & stable on meds. Continue current treatment. Assessment & Plan (06/18/2018 2:20 PM PICK REMOVER): Chronic & stable on meds. Continue current treatment. Assessment & Plan (03/29/2018 1:48 PM CDT): LDL was 69 on 12/10/2017. Continue Mevacor treatment Assessment & Plan (12/17/2017 9:41 PM CDT): Chronic & stable on meds. Continue current treatment. Assessment & Plan (06/18/2017 1:26 PM PICK REMOVER): Chronic & stable on meds. Continue current [...] pharmacy Assessment & Plan (07/28/2020 7:38 PM PICK REMOVER): Increase the Mirtazapine to 30mg daily and stop the Amitriptyline 10 mg daily, especially since he has constipation. Assessment & Plan (05/06/2020 11:37 PM PICK REMOVER): Patient symptomatic and not sure if he [...] treatment. Assessment & Plan (06/18/2018 2:20 PM PICK REMOVER): Chronic & stable on meds. Continue current treatment. Assessment & Plan (06/18/2017 1:26 PM PICK REMOVER): Chronic & stable on meds. Continue current [...] 02/15/2015 Assessment & Plan (07/28/2020 7:42 PM PICK REMOVER): Stable with out prescription medication. He feels [...] treatment. Assessment & Plan (06/18/2018 2:20 PM PICK REMOVER): Stable without regular use of inhalers. Assessment [...] medication(s) Assessment & Plan (07/28/2020 7:41 PM PICK REMOVER): Increase the doxazosin from 1 mg to 2 mg. Assessment & Plan (01/26/2020 11:09 AM CDT): Patient only took the doxazosin a couple times. Stop completely due to not taking it regularly and some lightheadedness when standing. Assessment & Plan (07/28/2019 11:16 PM PICK REMOVER): Start doxazosin (Cardura). Patient opted out of getting PSA testing at this time. 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 Encounter for Medicare annual [...] 12/18/19 Assessment & Plan (06/18/2017 1:20 PM PICK REMOVER): These look like a type of squamous [...] draws. Assessment & Plan (06/18/2018 2:20 PM PICK REMOVER): Chronic & stable on meds. Continue current [...] INR Assessment & Plan (06/18/2017 1:27 PM PICK REMOVER): Chronic & stable on meds. Continue current [...] in a custodial (including now)? 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 PICK REMOVER Gender Identity Not on file Sexual Orientation Not on file Obstetrics History Last Filed Vital Signs Vital Sign Reading Time Taken Comments Blood Pressure 176/72 01/09/2025 9:41 AM CDT Pulse 76 01/09/2025 9:41 AM CDT Temperature 36.9 C (98.4 F) 07/28/2020 8:55 AM PICK REMOVER Respiratory Rate 18 11/03/2020 9:16 AM CDT [...] Completed 01/26/2020, 11/30 Insurance MEDICARE MEDICARE MEDICARE [facility] Advance Directives For more information, please contact: [phone] Documents on File Type Date Recorded Patient Wind Plant Manager Expl anation ADVANCE DIRECTIVE 09/16/2021 9:00 AM Power of Consulting Sales Executive-Medical ADVANCE DIRECTIVE 06/23/2021 4:03 PM Annabel r of Consulting Sales Executive-Medical ADVANCE DIRECTIVE 03/05/2019 10:13 AM POWER OF SUPERVISOR LACE TEARING-MEDICAL ADVANCE DIRECTIVE 03/04/2019 2:22 PM POWER OF SUPERVISOR LACE TEARING-MEDICAL Care Teams Rand Sewer Relationship Specialty Start Date End Date Miller Mcmanus MD [address] [address] PCP - General Family Medicine 10/20/22
--- OUTSIDE RECORDS SUMMARY | 2025-04-16 20:51 | XMS_ITS | Clinical Summary ---
Author Organization [facility] Address [address] [place] [address] Phone Care Team Providers Care Secretary Of Police Name Role Phone Brandon Sandoval MD Primary Care Provider [phone] Allergies No known active allergies Medications aspirin [...] Comments Blood Pressure 166/90 08/08/2021 10:50 AM [facility]OWN Pulse 86 08/08/2021 10:50 AM [facility]OWN Temperature 37.1 C (98.8 F) 08/08/2021 10:50 AM [facility]DEO CLOWN Respiratory Rate 16 08/08/2021 10:50 AM [facility]OWN Oxygen Saturation 95% 08/08/2021 10:50 AM [facility]OWN Inhaled Oxygen Concentration - - Weight 69.4 kg (153 lb 1.6 oz) 08/08/2021 10:50 AM RODEO CLOWN Height 181.9 cm (5' 11.6) 08/08/2021 10:[address] Body Mass Index 21 08/08/2021 10:50 AM RODEO CLOWN Plan of Treatment Health Maintenance Due Date [...] Documents on File Type Date Recorded Patient Opto Mechanical Engineer Expl anation Power of Museum Service Scheduler for Health Care 06/29/2021 10:02 AM Care Teams Secretary Of Police Relationship Specialty Start Date End Date Brandon Sandoval MD PCP - General Internal Medicine 03/23/21
[2025-04-16 21:12] LABS: Hematocrit 38.9 % (42.0-52.0); Hemoglobin 13.3 g/dL (14.0-18.0); Immature Granulocyte Percent A 0.6 % (0-0.5); Lymphocytes Absolute Auto 0.23 K/mm3 (0.9-3.2); Mean Corpuscular HGB Conc 34.2 g/dl (32-36); Mean Corpuscular Hemoglobin 30.9 pg (26-34); Mean Corpuscular Volume 90.5 fl (80-100); Nucleated Red Blood Cells Absolute Auto 0.000 K/mm3 (0.0-0.012); Nucleated Red Blood Cells Perc 0.0 % (0.0-0.2); Platelet Count Result 257 k/mm3 (150-375); Red Blood Count 4.30 M/mm3 (4.6-6.20); White Blood Count 21.1 K/mm3 (4.5-10.0)
[2025-04-16 21:22] LABS: INR 1.1; Prothrombin Time 14.0 Seconds (11.1-14.7)
[2025-04-16 21:23] LABS: Partial Thromboplastin Time 27.9 Seconds (22.3-36.8)
[2025-04-16] MEDS: IPRATROPIUM 0.5 MG/ALBUTEROL SULFATE 2.5 MG (BASE) AMPUL.NEB 3 ML INHALATION (21:29)
[2025-04-16 21:30] LABS: Alanine Aminotransferase 25 U/L (6-50); Albumin Level 4.1 g/dL (3.5-5.1); Alkaline Phosphatase 106 U/L (38-126); Anion Gap 11 mmol/L (4-12); Aspartate Amino Transferase 29 U/L (17-59); Bilirubin,Total 0.9 mg/dL (0.2-1.3); Blood Urea Nitrogen 28 mg/dL (9-20); Calcium 9.3 mg/dL (8.4-10.2); Carbon Dioxide 21 mmol/L (22-30); Chloride 91 mmol/L (98-107); Estimated CRCL calculation 42 ml/min; Estimated Glomerular Filt Rate > 60; Glucose 196 mg/dL (65-110); Potassium 4.2 mmol/L (3.4-5.0); Sodium 123 mmol/L (137-145); Total Protein 7.4 g/dL (6.3-8.2)
[2025-04-16 21:39] LABS: Troponin I < 0.012 ng/mL (0.000-0.034)
[2025-04-17] VITALS (7 sets, daily range): BP systolic 127–158; BP diastolic 65–68; PULSE 68–115; RESP 16–22; TEMP 36.6–36.9; O2SAT 91–98; BMI 20.2; BMI 21.0
--- NOTE | 2025-04-17 01:15 | ADMGEN ---
This patient, Noé Davila, was admitted to 3 Med Surg Room 305-01. Patient/family oriented to hospital policies and general routines including ID bracelet, bed and alarms, visiting hours, pain management, procedures, bathroom and other care routines, personal items, smoking policy, room service/diet, and visiting hours. Information on how to activate the Rapid Response Team has been discussed. Patient/Family are encouraged to report perceived risks to care and to ask questions if they do not understand what they are told or what they should do.
--- NOTE | 2025-04-17 08:14 | PM.IMHP ---
H&P: HPI History of Present Illness Date/Time: 04/17/25 08:14 Chief Complaint: Shortness of breath Narrative: This is an 89-year-old male patient who was and discharged less than 24 hours ago. The patient went home and was short of breath after just taking a few steps. The patient denies any chest pain. It the patient's family felt that the patient needed to be readmitted. His daughter is concerned about the increased shortness of breath. Chest x-ray was read as no acute cardiopulmonary findings. His white count was noted to be up to 21.1 from 13.3. However the patient recently received steroids. Patient's H&H is stable 13.3 and 38.9. His sodium is 123 which appears to be chronically low. His blood sugar was noted to be 196. Troponins have been negative. Viral serology has been negative. The patient is hard of hearing and is a poor historian. The patient is being admitted to observation status on the date of service of 04/17/2025 Review of Systems Constitutional: Constitutional: Reports as per HPI and Reports no additional constitutional complaints Eyes: Eyes: Reports as per HPI and Reports no additional eye complaints ENT: Reports system reviewed and no additional complaints, except as documented and Reports Normal hearing present Cardiovascular: Cardiovascular: Reports no additional cardiovascular complaints Respiratory: Respiratory: Reports as per HPI and Reports no additional respiratory complaints Gastrointestinal: Gastrointestinal: Reports as per HPI and Reports no additional gastrointestinal complaints Musculoskeletal: Musculoskeletal: Reports no additional musculoskeletal complaints Integumentary/Breasts: Skin/Breast: Reports system reviewed and no additional complaints, except as docu Neurologic: Reports system reviewed and no additional complaints, except as documented and Reports Normal hearing present Psychiatric: Psychiatric: Reports no additional psychiatric complaints and Reports as per HPI Hematologic/Lymphatic: Hematologic/Lymphatic: Reports no additional hematologic/lymphatic complaints Allergic/Immunologic: Allergic/Immunologic: Reports no additional allergic/immunologic complaints [facility] Past Medical History Medical History (Updated 04/29/25 @ 15:17 by Naty Granados APRN) Diastolic CHF Chronic obstructive pulmonary disease CVA (cerebral vascular accident) BPH (benign prostatic hyperplasia) Seasonal allergies Elevated fasting glucose A1c 5.8% on 04/19/2025 Hyperthyroidism without thyroid nodule Hypertension Cerebrovascular disease PSVT (paroxysmal supraventricular tachycardia) Pulmonary emboli Peptic ulcer disease Lumbar radiculopathy Lumbar spondylosis Peripheral vascular disease Depression Seasonal allergies Anemia Atrial fibrillation Anxiety Constipation Dementia Hyperlipidemia Surgical History Surgical History H/O transurethral resection of prostate H/O cardiac catheterization H/O angioplasty Iliac vessels H/O cataract extraction Status post peripheral artery angioplasty with insertion of stent History of cholecystectomy Family History Family History Sibling CHF (congestive heart failure) Other Unknown family medical history Social History Social History Social History: He is a . He is Y[employer]. he is retired Healthcare power of employee benefits attorney: Roseanne Noguera. Code status: DNR Smoking packs per day: 1 Smoking cigarettes per day: 20.0 Smoking status: Former smoker Second hand tobacco smoke exposure: No Alcohol intake: never Drinks per week: 1 Substance use: never Substance use type: does not use Do You Feel Safe in your Home?: Yes Lack of Transportation: No Lack of Food: Never True Current Housing: I Have Housing Concerned About Future Housing: No Difficulty Paying Gas/Electric Bills: No Difficulty Paying for Meds: No Currently Unemployed: No Education: Grade School Difficulty w/ Childcare or Family Care: No Living arrangements: assisted living Occupation/Education: retired Gender identity (if verbalized by the patient): Male Sexual Orientation (if Verbalized by the Patient): Straight or Heterosexual Spiritual care concerns: Yes Agree to blood products: Yes Meds Home Medications and Allergies Home Medications ?Medication ?Instructions ?Recorded ?Confirmed ?Type aspirin 81 mg tablet,delayed 81 mg PO DAILY 12/12/21 04/28/25 History release polyethylene glycol 3350 17 gram 17 g PO QAM #7 ea 03/15/24 04/28/25 Rx oral powder packet (Miralax) amlodipine 5 mg tablet 5 mg PO DAILY #30 tabs 12/24/24 04/28/25 Rx losartan 100 mg tablet 50 mg PO DAILY 01/22/25 04/28/25 History buspirone 5 mg tablet 5 mg PO Q12HR #60 tabs 01/24/25 04/28/25 Rx docusate sodium 100 mg capsule 100 mg PO BID #30 caps 01/24/25 04/28/25 Rx atorvastatin 40 mg tablet (Lipitor) 20 mg (1/2 x 40 mg) PO DAILY #90 03/04/25 04/28/25 Rx tabs albuterol sulfate 90 mcg/actuation 2 puff inhalation Q4H PRN 03/24/25 04/28/25 History aerosol inhaler (Ventolin HFA) shortness of breath or wheezing benzonatate 200 mg capsule 200 mg PO .Q8HR PRN cough 04/16/25 04/28/25 History fluticasone furoate 100 1 inh inhalation DAILY 04/16/25 04/28/25 History mcg-vilanterol 25 mcg/dose inhalation powder (Breo Ellipta) fluticasone propionate 50 1 spray intranasal BID 04/16/25 04/28/25 History mcg/actuation nasal spray,suspension (24 Hour Allergy Relief) melatonin 3 mg tablet 3 mg PO HS #30 tabs 04/25/25 04/28/25 Rx pantoprazole 40 mg tablet,delayed 40 mg PO QAM #30 tabs 04/25/25 04/28/25 Rx release albuterol sulfate 5 mg/mL(0.5 %) 2.5 mg (0.5 mL) inhalation Q6H PRN 04/27/25 04/28/25 Rx solution for nebulization shortness of breath or wheezing #100 mL doxycycline hyclate 100 mg tablet 100 mg PO BID 6 days #12 tabs 04/27/25 04/28/25 Rx levofloxacin 750 mg tablet 750 mg PO DAILY #6 tabs 04/27/25 04/28/25 Rx methimazole 5 mg tablet 5 mg PO DAILY #30 tabs 04/27/25 04/28/25 Rx nebulizer and compressor #1 ea 04/27/25 Rx (All-In-One Nebulizer System) prednisone 10 mg tablet 10 mg PO DIRECTED #9 tabs 04/27/25 04/28/25 Rx propranolol 10 mg tablet 10 mg PO BID 30 days #60 tabs 04/27/25 04/28/25 Rx sodium chloride 1,000 mg soluble 1,000 mg PO BID 7 days #14 tabs 04/27/25 04/28/25 Rx tablet tamsulosin 0.4 mg capsule 0.8 mg (2 x 0.4 mg) PO HS 30 days 04/27/25 04/28/25 Rx #60 caps Allergies Allergy/AdvReac Type Severity Reaction Status Date / Time No Known Allergies Allergy Verified 04/28/25 20:11 Vital Signs Vital Signs - 24 hr 04/16/25 18:42 04/16/25 21:33 04/16/25 21:40 Temperature 97.9 F Pulse Rate 102 H 79 82 Respiratory Rate 20 18 18 Blood Pressure 170/69 H Pulse Oximetry 93 Oxygen Delivery Room Air 04/16/25 21:56 04/16/25 22:08 04/16/25 22:15 Temperature Pulse Rate 94 91 100 Respiratory Rate 25 H 27 H 25 H Blood Pressure Pulse Oximetry 93 93 97 Oxygen Delivery 04/16/25 22:30 04/16/25 22:31 04/16/25 23:03 Temperature Pulse Rate 90 93 84 Respiratory Rate 28 H 19 23 H Blood Pressure 146/72 H Pulse Oximetry 93 Oxygen Delivery 04/16/25 23:16 04/16/25 23:30 04/16/25 23:31 Temperature Pulse Rate 101 H 108 H 100 Respiratory Rate 17 30 H 22 H Blood Pressure 148/77 H Pulse Oximetry 93 96 96 Oxygen Delivery 04/16/25 23:53 04/17/25 00:28 04/17/25 05:26 Temperature 98.2 F 98.1 F Pulse Rate 100 68 89 Respiratory Rate 17 16 16 Blood Pressure 142/65 H 136/68 Pulse Oximetry 94 98 94 Oxygen Delivery Exam Const: General: cooperative, healthy appearing, comfortable, no acute distress, well developed, awake, Physically active, average body habitus and well nourished Nutritional Appearance: average body habitus Orientation/consciousness: oriented to person HENMT: Head: normal to inspection, No palpable skull fracture present, normocephalic, atraumatic and abrasion Eyes: General: appearance normal, both eyes and all related structures Alignment and Position: alignment normal Periorbital: periorbital findings normal Neck: Neck: normal visual inspection and full ROM Chest: Chest palpation & inspection: normal inspection of the chest Resp: Effort & Inspection: normal respiratory effort Auscultation: clear to auscultation bilaterally Cardio: Palpation: normal PMI Rate: regular rate Rhythm: regular rhythm Heart sounds: S1 normal heart sound present and S2 normal heart sound present Peripheral pulses: Peripheral pulses 2+ throughout GI: Inspection: normal to inspection Percussion: Yes normal to percussion Auscultation: normal bowel sounds Rectal Exam: deferred Back/Spine/Pelvis: Back: no CVA tenderness Cervical Spine: cervical ROM normal Skin: General skin exam: normal color Lesions: no lesions Rashes: no rashes Trauma: no lacerations or abrasions Wounds: no wounds Neuro: General: oriented to person Extrem: General: normal to inspection Right upper extremity: normal to inspection and shoulder/upper arm Left upper extremity: normal to inspection and shoulder/upper arm Right lower extremity: normal to inspection Left lower extremity: normal to inspection Psych: Appearance: grossly normal Mental Status: mental status grossly normal Speech and movement: Normal speech and movement present Affect: normal affect H&P: Results Labs Labs: Short CBC 04/16/25 Range/Units 21:03 WBC 21.1 H (4.5-10.0) K/mm3 Hgb 13.3 L (14.0-18.0) g/dL Hct 38.9 L (42.0-52.0) % Plt Count 257 (150-375) k/mm3 BMP 04/16/25 21:03 Sodium 123 L Potassium 4.2 Chloride 91 L Carbon Dioxide 21 L BUN 28 H Creatinine 1.05 Glucose 196 H Calcium 9.3 Cardiac Enzymes 04/16/25 Range/Units 21:03 Troponin I < 0.012 (0.000-0.034) ng/mL Liver Function 04/16/25 Range/Units 21:03 Total Bilirubin 0.9 (0.2-1.3) mg/dL AST 29 (17-59) U/L ALT 25 (6-50) U/L Alkaline Phosphatase 106 (38-126) U/L Albumin 4.1 (3.5-5.1) g/dL ECG Interpretation: SINUS RHYTHM RIGHT BUNDLE BRANCH BLOCK BASELINE ARTIFACT- I, II, III, AVR, AVL, AVF, V1-V6 ABNORMAL ECG Compared to ECG 04/15/2025 20:35:25 Left anterior fascicular block no longer present Electronically Signed On 04-17-2025 06:25:38 CDT by López Ndiaye D.O. Imaging Chest x-ray: Radiologist's impression: Impressions Chest X-Ray 04/16/25 21:21 IMPRESSION: No acute pulmonary findings. Assessment and Plan Assessment and plan (1) Dyspnea on exertion: Code(s): R06.09 - Other forms of dyspnea Status: Acute Assessment and Plan: -the patient's chest x-ray shows no acute cardiopulmonary. -his lungs sound clear. -the patient had an echo in 11/2024 which was read as the following 1.Technically suboptimal study due to poor sonographic images. 2. Definity contrast administered improved wall motion interpretation. 3. Left ventricular chamber dimension is normal. 4. Left ventricular systolic function is normal, estimated at 60-65. 5. There is mild concentric increased left ventricular wall thickness. 6. The left ventricular diastolic function is grade I diastolic dysfunction. 7. E/e' 5 is not elevated. 8. Agitated saline injection with and without valsalva maneuver which was suboptimal as bubbles not seen in right ventricle. 9. There is mild aortic valve sclerosis. 10. There is trace aortic valve regurgitation. 11. There is mild mitral valve regurgitation. 12. There is mild tricuspid valve regurgitation. 13. No pulmonary hypertension, estimated pulmonary arterial systolic pressure is 30 mmHg. 14. There is trace pulmonic regurgitation. -he had a chest /abdomen/pelvis CTA on 04/15/2025There is no pulmonary embolism, aortic dissection, pericardial fluid or thoracic aneurysm. Emphysematous changes. 13.5 mm pulmonary nodule in the left lower lobe. No acute abnormality is noted in the abdomen and pelvis. Lobulated enlarged prostate gland is noted. Correlation with PSA is recommended. -the patient may need a pulmonary function test. -patient most likely has some component of emphysema please. -continue with the breathing treatments and steroids for now. -pulmonary consultation greatly be appreciated. -cardiac enzymes are negative. -exertional dyspnea unclear. The patient has had PEs in the past but was for PEs on the most recent CTA. He is also known to have AFib and SVT in the past. The patient may benefit from a continuous illuminator. -continue with Breo Ellipta (2) Anxiety: Code(s): F41.9 - Anxiety disorder, unspecified Status: Acute Assessment and Plan: -continue with buspirone (3) Depression: Code(s): F32.A - Depression, unspecified Status: Chronic Assessment and Plan: -continue buspirone (4) Hyperlipidemia: Code(s): E78.5 - Hyperlipidemia, unspecified Status: Chronic Assessment and Plan: -continue with atorvastatin can continue to monitor liver enzymes Quality VTE Prophylaxis VTE prophylaxis: mechanical ordered
[2025-04-17 09:27] LABS: Hematocrit 34.9 % (42.0-52.0); Hemoglobin 12.1 g/dL (14.0-18.0); Mean Corpuscular HGB Conc 34.7 g/dl (32-36); Mean Corpuscular Hemoglobin 31.0 pg (26-34); Mean Corpuscular Volume 89.5 fl (80-100); Platelet Count Result 258 k/mm3 (150-375); Red Blood Count 3.90 M/mm3 (4.6-6.20); White Blood Count 18.0 K/mm3 (4.5-10.0)
[2025-04-17] MEDS: DOCUSATE SODIUM 100 MG CAPSULE PO ×2 (09:38→16:11)
[2025-04-17] MEDS: LOSARTAN POTASSIUM 50 MG TABLET PO (09:38)
[2025-04-17] MEDS: ASPIRIN 81 MG ENTERIC TABLET PO (09:38)
[2025-04-17] MEDS: ATORVASTATIN 20 MG TABLET PO (09:38)
[2025-04-17 10:10] LABS: Anion Gap 8 mmol/L (4-12); Blood Urea Nitrogen 31 mg/dL (9-20); Calcium 8.9 mg/dL (8.4-10.2); Carbon Dioxide 22 mmol/L (22-30); Chloride 93 mmol/L (98-107); Estimated CRCL calculation 44 ml/min; Estimated Glomerular Filt Rate > 60; Glucose 176 mg/dL (65-110); Potassium 4.4 mmol/L (3.4-5.0); Sodium 123 mmol/L (137-145)
[2025-04-17] MEDS: FLUTICASONE PROPIONATE 0.05% NA SPR 16 GM BTL (*BKC) 1 SPRAY NASAL ×2 (10:14→16:11)
[2025-04-17 10:28] LABS: Prostate Specific Antigen 2.2 ng/mL (< OR = 4.0)
--- NOTE | 2025-04-17 10:45 | PM.CNPUL ---
Assessment and Plan Assessment and plan (1) Acute exacerbation of chronic obstructive pulmonary disease: Code(s): J44.1 - Chronic obstructive pulmonary disease with (acute) exacerbation Status: Acute Assessment and Plan: Regarding his COPD: Patient smoked from 5802-5302 at half a pack a day for total of 27 pack years. Patient states that he does walk with a walker and has shortness of breath that limits him. He is not on any oxygen. I have no PFTs. For CT scan on 12/31/2002 in our system shows bullous emphysema in the report. CT angiogram of the chest on 04/15/2025 shows moderate apical predominant centrilobular emphysema right apical scarring, right upper lobe ground-glass infiltrate and left lower lobe 9.7 times 13.4 mm nodule with surrounding infiltrate. ABG on 04/15 on room air 7.. Patient is maintained on Breo Ellipta and p.r.n. albuterol. He is not on home oxygen. 04/15/25: White blood cell count 13.3, eosinophils 0.4% equals 53 per micro L patient is unable to give me a reliable history but states he has been short of breath for 3 days. He presented to the emergency room on 04/15, and had a CT angiogram of the chest with no pulmonary embolism, moderate apical predominant centrilobular emphysema right upper lobe ground-glass infiltrate and left lower lobe nodule. ABG on room air 7.. Patient was treated for COPD exacerbation with bronchodilators and steroids. Patient re-presented to the emergency room on 04/16 with a white blood cell count 21.1, creatinine 1.05 and was admitted to the hospital. COVID, influenza, RSV RT PCR assay negative. 04/17/2025; Patient tells me he has no rest shortness of breath, his dyspnea on exertion is the same as yesterday. He denies fever, chills, rigors, phlegm production or hemoptysis. he is on room air with saturations 94%. He is afebrile. White blood cell count 18.0, creatinine 1.01. no wheezing on exam. he complains his phlegm does get stuck in his throat. Plan: I will treat patient for COPD exacerbation. He was started on Solu-Medrol and is currently on 60 mg IV q.6 hours, last dose at 9:37 a.m. this morning. He has no wheezing. I will discontinue Solu-Medrol place him on prednisone 40 starting tomorrow. He was placed on Advair 115-21 at 2 puffs q.12 hours. I will discontinue Advair and place him on ipratropium nebulizers Q 6 hours only as there is a possibility of an SVT last night. Patient has no infectious complaints but does have nodules with infiltrate and I will treat him with Levaquin 750 mg p.o. Q 48 hours for 7 days for creatinine clearance of 44. I will send a respiratory pathogen panel looking for etiology of a possible exacerbation. He complains phlegm it is getting stuck in his throat and I will place him on guaifenesin 1200 mg p.o. b.i.d. and also initiate a Cornet flutter valve. I spoke to the daughter Josiane over the phone. Discussed with Naty Granados, will follow with you. (2) Lung nodule: Code(s): R91.1 - Solitary pulmonary nodule Status: Acute Assessment and Plan: Patient with 27 pack year tobacco use, quit [address] scan of the chest shows right apical parenchymal pleural scarring, right upper lobe 6 mm x 5 mm nodule and left lower lobe 9.7 x 13.4 mm nodule. This nodule is associated with a mild infiltrate and there are bibasilar infiltrates as well. Plan: I will treat the patient for possible pneumonia with Levaquin as above. Plan to repeat CT scan in 3 months as an outpatient. History of Present Illness History of Present Illness Consult date: 04/17/25 Chief complaint: copd exacerbation Narrative: 04/17/2025: This is a new pulmonary consult for COPD exacerbation and lung nodules. 89-year-old with a history of dementia, atrial fibrillation and COPD. Patient has dementia. He misspelled his last name, does not know the place or year and does not know the director medicare sales. I spoke to the daughter and she says he is more confused since he is been in the hospital. Regarding his COPD: Patient smoked from 7739-5834 at half a pack a day for total of 27 pack years. Patient states that he does walk with a walker and has shortness of breath that limits him. He is not on any oxygen. I have no PFTs. For CT scan on 12/31/2002 in our system shows bullous emphysema in the report. CT angiogram of the chest on 04/15/2025 shows moderate apical predominant centrilobular emphysema right apical scarring, right upper lobe ground-glass infiltrate and left lower lobe 9.7 times 13.4 mm nodule with surrounding infiltrate. Patient is maintained on Breo Ellipta and p.r.n. albuterol. He is not on home oxygen. patient is unable to give me a reliable history but states he has been short of breath for 3 days. He presented to the emergency room on 04/15, and had a CT angiogram of the chest with no pulmonary embolism, moderate apical predominant centrilobular emphysema right upper lobe ground-glass infiltrate and left lower lobe nodule. ABG on room air 7.49//57. Patient was treated for COPD exacerbation with bronchodilators and steroids. Patient re-presented to the emergency room on 04/16 with a white blood cell count 21.1, creatinine 1.05 and was admitted to the hospital. 04/17/2025; Patient tells me he has no rest shortness of breath, his dyspnea on exertion is the same as yesterday. He denies fever, chills, rigors, phlegm production or hemoptysis. he is on room air with saturations 94%. He is afebrile. White blood cell count 18.0, creatinine 1.01. no wheezing on exam. DATA: CTA chest PE abdomen pel HISTORY:Shortness of breath evaluate for PE, abdominal rosy . COMPARISON: None. TECHNIQUE: Following the noncontrasted shake maker, axial images of the thorax were obtained following infusion of 100 cc of Isovue 370. Post-processing on an independent workstation was performed to reconstruct MIP images for evaluation of the thoracic vasculature. FINDINGS: There is no pulmonary embolism, aortic dissection, thoracic aneurysm or pericardial fluid. Diffuse centrilobular emphysema noted. There is a 13.5 x 9.7 mm pulmonary nodule in the left lower lobe. Subpleural reticulation are noted. There is a intrafissural nodule within the right middle lobe measuring 5 mm. No pleural effusion or pneumothorax is noted. There is no axillary, mediastinal or hilar adenopathy. Review of bone windows demonstrates no osteoblastic or lytic lesions. IMPRESSION: There is no pulmonary embolism, aortic dissection, pericardial fluid or thoracic aneurysm. Emphysematous changes. 13.5 mm pulmonary nodule in the left lower lobe. CTA chest PE abdomen pel INDICATION:Shortness of breath evaluate for PE, abdominal rosy . COMPARISON: None. TECHNIQUE: Axial images of the abdomen and pelvis were obtained following infusion of 100 mL Isovue 370. Dose optimization technique was utilized. FINDINGS: The liver parenchyma is unremarkable. No intrahepatic mass or ductal dilatation is evident. The patient has had a cholecystectomy. The pancreas and spleen are normal in appearance. The adrenal glands are symmetric in size. The kidneys demonstrate symmetric uptake and excretion of contrast. No cystic mass is evident. There is no solid mass. There is no hydronephrosis. Evaluation of the stomach and bowel loops are limited due to lack of oral contrast. The appendix is not visualized however no secondary signs of appendicitis are identified. Bladder is distended. Lobulated enlarged prostate gland is noted. No free intraperitoneal fluid or air is evident. There is no significant retroperitoneal lymphadenopathy. The aorta, visceral vessels and renal arteries demonstrate normal caliber and patency. The lower thoracic and lumbar vertebrae are in normal alignment. IMPRESSION: No acute abnormality is noted in the abdomen and pelvis. Lobulated enlarged prostate gland is noted. Correlation with PSA is recommended. Review of Systems Constitutional: Constitutional: Reports no additional constitutional complaints Eyes: Eyes: Reports no additional eye complaints ENT: Reports system reviewed and no additional complaints, except as documented Cardiovascular: Cardiovascular: Reports no additional cardiovascular complaints Respiratory: Respiratory: Reports no additional respiratory complaints Gastrointestinal: Gastrointestinal: Reports no additional gastrointestinal complaints Musculoskeletal: Musculoskeletal: Reports no additional musculoskeletal complaints Neurologic: Reports system reviewed and no additional complaints, except as documented Psychiatric: Psychiatric: Reports no additional psychiatric complaints Endocrine: Endocrine: Reports no additional endocrine complaints Hematologic/Lymphatic: Hematologic/Lymphatic: Reports no additional hematologic/lymphatic complaints Allergic/Immunologic: Allergic/Immunologic: Reports no additional allergic/immunologic complaints [facility] Past Medical History Medical History (Updated 04/17/25 @ 11:48 by Naty Granados APRN) PSVT (paroxysmal supraventricular tachycardia) Pulmonary emboli Peptic ulcer disease History of atrial fibrillation Lumbar radiculopathy Lumbar spondylosis Peripheral vascular disease Chronic obstructive pulmonary disease Benign prostatic hyperplasia Depression Seasonal allergies Anemia Hypertension Atrial fibrillation Anxiety Constipation Dementia Hyperlipidemia Surgical History Surgical History (Updated 04/17/25 @ 08:34 by Tabatha Rosa APRN) H/O transurethral resection of prostate H/O cardiac catheterization H/O angioplasty Iliac vessels H/O cataract extraction Status post peripheral artery angioplasty with insertion of stent History of cholecystectomy Family History Family History Sibling CHF (congestive heart failure) Other Unknown family medical history Social History Social History (Updated 04/17/25 @ 08:21 by Tabatha Rosa APRN) Social History: He is a . He is Muslim. he is retired Healthcare power of erisa attorney: Roseanne Noguera. Code status: DNR Smoking packs per day: 1 Smoking cigarettes per day: 20.0 Smoking status: Former smoker Second hand tobacco smoke exposure: No Alcohol intake: never Drinks per week: 1 Substance use: never Substance use type: does not use Do You Feel Safe in your Home?: Yes Lack of Transportation: No Lack of Food: Never True Current Housing: I Have Housing Concerned About Future Housing: No Difficulty Paying Gas/Electric Bills: No Difficulty Paying for Meds: No Currently Unemployed: No Education: Grade School Difficulty w/ Childcare or Family Care: No Living arrangements: assisted living Occupation/Education: retired Gender identity (if verbalized by the patient): Male Sexual Orientation (if Verbalized by the Patient): Straight or Heterosexual Spiritual care concerns: Yes Agree to blood products: Yes Meds Home Medications and Allergies Home Medications ?Medication ?Instructions ?Recorded ?Confirmed ?Type aspirin 81 mg tablet,delayed 81 mg PO DAILY 12/12/21 04/17/25 History release polyethylene glycol 3350 17 gram 17 g PO QAM #7 ea 03/15/24 04/17/25 Rx oral powder packet (Miralax) amlodipine 5 mg tablet 5 mg PO DAILY #30 tabs 12/24/24 04/17/25 Rx losartan 100 mg tablet 50 mg PO DAILY 01/22/25 04/17/25 History buspirone 5 mg tablet 5 mg PO Q12HR #60 tabs 01/24/25 04/17/25 Rx docusate sodium 100 mg capsule 100 mg PO BID #30 caps 01/24/25 04/17/25 Rx atorvastatin 40 mg tablet (Lipitor) 20 mg (1/2 x 40 mg) PO DAILY #90 03/04/25 04/17/25 Rx tabs albuterol sulfate 90 mcg/actuation 2 puff inhalation Q4H PRN 03/24/25 04/17/25 History aerosol inhaler (Ventolin HFA) shortness of breath or wheezing benzonatate 200 mg capsule 200 mg PO .Q8HR PRN cough 04/16/25 04/17/25 History fluticasone furoate 100 1 inh inhalation DAILY 04/16/25 04/17/25 History mcg-vilanterol 25 mcg/dose inhalation powder (Breo Ellipta) fluticasone propionate 50 1 spray intranasal BID 04/16/25 04/17/25 History mcg/actuation nasal spray,suspension (24 Hour Allergy Relief) Allergies Allergy/AdvReac Type Severity Reaction Status Date / Time No Known Allergies Allergy Verified 04/17/25 00:42 Vital Signs Vital Signs - 24 hr 04/16/25 18:42 04/16/25 21:33 04/16/25 21:40 Temperature 36.6 C Pulse Rate 102 H 79 82 Respiratory Rate 20 18 18 Blood Pressure 170/69 H Pulse Oximetry 93 Oxygen Delivery Room Air 04/16/25 21:56 04/16/25 22:08 04/16/25 22:15 Temperature Pulse Rate 94 91 100 Respiratory Rate 25 H 27 H 25 H Blood Pressure Pulse Oximetry 93 93 97 Oxygen Delivery 04/16/25 22:30 04/16/25 22:31 04/16/25 23:03 Temperature Pulse Rate 90 93 84 Respiratory Rate 28 H 19 23 H Blood Pressure 146/72 H Pulse Oximetry 93 Oxygen Delivery 04/16/25 23:16 04/16/25 23:30 04/16/25 23:31 Temperature Pulse Rate 101 H 108 H 100 Respiratory Rate 17 30 H 22 H Blood Pressure 148/77 H Pulse Oximetry 93 96 96 Oxygen Delivery 04/16/25 23:53 04/17/25 00:28 04/17/25 05:26 Temperature 36.8 C 36.7 C Pulse Rate 100 68 89 Respiratory Rate 17 16 16 Blood Pressure 142/65 H 136/68 Pulse Oximetry 94 98 94 Oxygen Delivery 04/17/25 08:00 Temperature Pulse Rate Respiratory Rate Blood Pressure Pulse Oximetry Oxygen Delivery Room Air Exam Const: General: cooperative, healthy appearing and comfortable Other: patient Misspelled his last name, does not know where he is at, does not know the year or the client services vice president. HENMT: Head: normal to inspection Ears: hearing grossly normal bilaterally Eyes: General: appearance normal, both eyes and all related structures Neck: Neck: normal visual inspection Chest: Chest palpation & inspection: normal inspection of the chest Resp: Effort & Inspection: normal respiratory effort and able to speak in complete sentences Auscultation: no crackles, no rales, no rhonchi, no wheezes and lung sounds not diminished Other: No wheezes Cardio: Jugular venous distension: no JVD GI: Inspection: normal to inspection GI Palp: No abdominal tenderness Skin: General skin exam: normal color Neuro: General: oriented to person, oriented to place and oriented to time Extrem: General: normal to inspection Psych: Appearance: grossly normal Results Laboratory Findings 04/17/25 08:45 04/17/25 08:45 ABG, PT/INR, D-dimer: PT/INR, D-dimer PT 14.0 Seconds (11.1-14.7) 04/16/25 21:03 INR 1.1 04/16/25 21:03 Abnormal lab findings: Abnormal Labs 04/16/25 04/17/25 21:03 08:45 WBC 21.1 H 18.0 H RBC 4.30 L 3.90 L Hgb 13.3 L 12.1 L Hct 38.9 L 34.9 L Immature Gran % (Auto) 0.6 H Neut % (Auto) 94.9 H Lymph % (Auto) 1.1 L Baso % (Auto) 0.1 L Lymph # (Auto) 0.23 L Garrett # (Auto) 0.7 H Abs Immat Gran (auto) 0.13 H Absolute Neuts (auto) 20.1 H Sodium 123 L 123 L Chloride 91 L 93 L Carbon Dioxide 21 L BUN 28 H 31 H Glucose 196 H 176 H Diagnostic Findings Additional studies: ITS Impressions Chest X-Ray 04/16/25 21:21 IMPRESSION: No acute pulmonary findings.
--- NOTE | 2025-04-17 11:42 | P.PNIM_ITS ---
Progress Note: A&P Assessment and Plan (1) Dyspnea on exertion: Code(s): R06.09 - Other forms of dyspnea Status: Acute Assessment and Plan: -the patient's chest x-ray shows no acute cardiopulmonary. -his lungs sound clear. -the patient had an echo in 11/2024 which was read as the followingTechnically suboptimal study due to poor sonographic images. 2. Definity contrast administered improved wall motion interpretation. 3. Left ventricular chamber dimension is normal. 4. Left ventricular systolic function is normal, estimated at 60-65. 5. There is mild concentric increased left ventricular wall thickness. 6. The left ventricular diastolic function is grade I diastolic dysfunction. 7. E/e' 5 is not elevated. 8. Agitated saline injection with and without valsalva maneuver which was suboptimal as bubbles not seen in right ventricle. 9. There is mild aortic valve sclerosis. 10. There is trace aortic valve regurgitation. 11. There is mild mitral valve regurgitation. 12. There is mild tricuspid valve regurgitation. 13. No pulmonary hypertension, estimated pulmonary arterial systolic pressure is 30 mmHg. 14. There is trace pulmonic regurgitation. -he had a hs/abdomen/pelvis CTA on 04/15/2025There is no pulmonary embolism, aortic dissection, pericardial fluid or thoracic aneurysm. Emphysematous changes. 13.5 mm pulmonary nodule in the left lower lobe. No acute abnormality is noted in the abdomen and pelvis. Lobulated enlarged prostate gland is noted. Correlation with PSA is recommended. -the patient may need a pulmonary function test. -patient most likely has some component of emphysema please. -continue with the breathing treatments and steroids for now. -pulmonary consultation greatly be appreciated. -cardiac enzymes are negative. -exertional dyspnea unclear. The patient has had PEs in the past but was for PEs on the most recent CTA. He is also known to have AFib and SVT in the past. The patient may benefit from a continuous cardiac monitor technician. -continue with Luz Maria Thomson 04/17: Pt A&O x4 today but confused at sometimes. Daughter is at the bedside, states that this is somewhat his baseline but he has been waxing and waning. UA has not been performed to r/o UTI, Ordered today. -Pulm also saw pt today and with seeing nodules on CT, treating aggressively if it were PNA. PNA vs. scarring. IV Levaquin ordered as well as COPD exacerbation meds: prednisone, guifenesin, nebs, inhalers. -resp panel pending -cards consult pending -->May order echo depending on how sx progress/MALDONADO -WBC18, will continue to trend (2) Anxiety: Code(s): F41.9 - Anxiety disorder, unspecified Status: Acute Assessment and Plan: -continue with buspirone (3) Depression: Code(s): F32.A - Depression, unspecified Status: Acute Assessment and Plan: -continue buspirone (4) Hypertension: Code(s): I10 - Essential (primary) hypertension Status: Acute Assessment and Plan: -continue losartan -daily BMP -continue with amlodipine (5) Hyperlipidemia: Code(s): E78.5 - Hyperlipidemia, unspecified Status: Chronic Assessment and Plan: -continue with atorvastatin can continue to monitor liver enzymes (6) Hyponatremia: Code(s): E87.1 - Hypo-osmolality and hyponatremia Status: Acute Assessment and Plan: Appears to be chronic, but Na 123 today, acute may be contributing to disorientation today -IVF NS ordered -Repeat BMP this evening -May consider fluid restriction and/or Na supplement if does not rise -Pending cards consult to r/u other potential risk factors -Kidneys function WDL for age, potential plan for neph review -Continue with daily labs Plan COPD and PNA treatment. Cards consult pending. Trend electrolytes. Time Spent With Patient Time: 45 Subjective Date/time seen: 04/17/25 11:42 Interval history: Pt sitting up in chair eating upon my arrival. Pt is oriented and cheerful but also is confused as to why he is here. Pt back here due to issues breathing while ambulating. Pt denies SOB at rest. Called back to the bedside to speak to pt's daughter, Roseanne. We had an extensive conversation today reviewing everything ordered/performed for the pt. She reports that when he was taken back to his NH that he had gotten SOB while walking and this is abnormal for him. He has also been struggling with a cough for x1 year. All questions addressed. She is POA. Review of Systems Constitutional: Constitutional: Reports as per HPI and Reports no additional constitutional complaints Eyes: Eyes: Reports as per HPI and Reports no additional eye complaints ENT: Reports system reviewed and no additional complaints, except as documented and Reports Normal hearing present Cardiovascular: Cardiovascular: Reports no additional cardiovascular complaints Respiratory: Respiratory: Reports as per HPI and Reports no additional respiratory complaints Gastrointestinal: Gastrointestinal: Reports as per HPI and Reports no additional gastrointestinal complaints Musculoskeletal: Musculoskeletal: Reports no additional musculoskeletal c omplaints Integumentary/Breasts: Skin/Breast: Reports system reviewed and no additional complaints, except as docu Neurologic: Reports system reviewed and no additional complaints, except as documented and Reports Normal hearing present Psychiatric: Psychiatric: Reports no additional psychiatric complaints and Reports as per HPI Hematologic/Lymphatic: Hematologic/Lymphatic: Reports no additional hematolog ic/lymphatic complaints Allergic/Immunologic: Allergic/Immunologic: Reports no additional allergic/immunologic complaints Exam Const: General: cooperative, healthy appearing, comfortable, no acute distress, well developed, awake, Physically active, average body habitus and well nourished Nutritional Appearance: average body habitus and well nourished HENMT: Head: normal to inspection, No palpable skull fracture present, normocephalic, atraumatic and abrasion Eyes: General: appearance normal, both eyes and all related structures Alignment and Position: alignment normal Periorbital: periorbital findings normal Neck: Neck: normal visual inspection and full ROM Chest: Chest palpation & inspection: normal inspection of the chest Resp: Effort & Inspection: normal respiratory effort Auscultation: clear to auscultation bilaterally Cardio: Palpation: normal PMI Rate: regular rate Rhythm: regular rhythm Heart sounds: S1 normal heart sound present and S2 normal heart sound present Peripheral pulses: Peripheral pulses 2+ throughout GI: Inspection: normal to inspection Auscultation: normal bowel sounds Rectal Exam: deferred : General: Yes no CVA tenderness Back/Spine/Pelvis: Back: no CVA tenderness Cervical Spine: cervical ROM normal Skin: General skin exam: normal color Lesions: no lesions Rashes: no rashes Trauma: no lacerations or abrasions Wounds: no wounds Neuro: General: patient oriented x3 Cranial nerves: Yes Normal hearing present Other: forgetful, unsure why he is in the hospital Extrem: General: normal to inspection Right upper extremity: normal to inspection and shoulder/upper arm Left upper extremity: normal to inspection and shoulder/upper arm Right lower extremity: normal to inspection Left lower extremity: normal to inspection Psych: Appearance: grossly normal Mental Status: mental status grossly normal Speech and movement: Normal speech and movement present Affect: normal affect Objective Data Vital Signs Vital Signs: Vital Signs - 24 hr 04/16/25 18:42 04/16/25 21:33 04/16/25 21:40 Temperature 97.9 F Pulse Rate 102 H 79 82 Respiratory Rate 20 18 18 Blood Pressure 170/69 H Pulse Oximetry 93 Oxygen Delivery Room Air 04/16/25 21:56 04/16/25 22:08 04/16/25 22:15 Temperature Pulse Rate 94 91 100 Respiratory Rate 25 H 27 H 25 H Blood Pressure Pulse Oximetry 93 93 97 Oxygen Delivery 04/16/25 22:30 04/16/25 22:31 04/16/25 23:03 Temperature Pulse Rate 90 93 84 Respiratory Rate 28 H 19 23 H Blood Pressure 146/72 H Pulse Oximetry 93 Oxygen Delivery 04/16/25 23:16 04/16/25 23:30 04/16/25 23:31 Temperature Pulse Rate 101 H 108 H 100 Respiratory Rate 17 30 H 22 H Blood Pressure 148/77 H Pulse Oximetry 93 96 96 Oxygen Delivery 04/16/25 23:53 04/17/25 00:28 04/17/25 05:26 Temperature 98.2 F 98.1 F Pulse Rate 100 68 89 Respiratory Rate 17 16 16 Blood Pressure 142/65 H 136/68 Pulse Oximetry 94 98 94 Oxygen Delivery 04/17/25 08:00 Temperature Pulse Rate Respiratory Rate Blood Pressure Pulse Oximetry Oxygen Delivery Room Air Intake/Output Intake/Output: Intake & Output 04/14/25 04/15/25 04/16/25 04/17/25 23:59 23:59 23:59 23:59 Intake Total 200 Balance 200 Meds/Results Medications: Active Medications Generic Name Dose Route Start Last Admin Trade Name Freq PRN Reason Stop Dose Admin Amlodipine Besylate 5 mg 04/17/25 09:00 04/17/25 09:38 Amlodipine Besylate 5 Mg Tablet PO 5 mg DAILY CONNIE Administration Aspirin 81 mg 04/17/25 09:00 04/17/25 09:38 Aspirin 81 Mg Enteric Tablet PO 81 mg DAILY CONNIE Administration Atorvastatin Calcium 20 mg 04/17/25 09:00 04/17/25 09:38 Atorvastatin 20 Mg Tablet PO 20 mg DAILY CONNIE Administration Benzonatate 200 mg 04/17/25 08:37 Benzonatate 100 Mg Capsule PO Q8H PRN cough Buspirone HCl 5 mg 04/17/25 09:00 04/17/25 09:38 Buspirone Hcl 5 Mg Tablet PO 5 mg Q12HR CONNIE Administration Docusate Sodium 100 mg 04/17/25 09:00 04/17/25 09:38 Docusate Sodium 100 Mg Capsule PO 100 mg BID [facility] Administration Fluticasone Propionate 1 spray 04/17/25 09:00 04/17/25 10:14 Fluticasone Propionate 0.05% Na Spr 16 Gm Btl (*Bkc) NASAL 1 spray BID [facility] Administration Guaifenesin 1,200 mg 04/17/25 21:00 Guaifenesin 12 Hr 600 Mg Tabcr PO Q12HR [facility] Ipratropium [place] 0.5 mg 04/17/25 14:00 Ipratropium Br 0.02% Inh Soln 0.5 Mg/2.5 Ml Vial INHALATION Q6HRT [facility] Losartan Potassium 50 mg 04/17/25 09:00 04/17/25 09:38 Losartan Potassium 50 Mg Tablet PO 50 mg DAILY [facility] Administration Polyethylene Glycol 17 gm 04/17/25 09:00 04/17/25 10:10 Polyethylene Glycol 3350 17 Gm Powd.Pack PO 17 gm QAM [facility] Administration Prednisone 40 mg 04/18/25 08:00 Prednisone 20 Mg Tablet PO DAILY@0800 [facility] Radiology Results: ITS Impressions Chest X-Ray 04/16/25 21:21 IMPRESSION: No acute pulmonary findings. Labs Labs: Laboratory Results - last 24 hr 04/16/25 04/17/25 21:03 08:45 WBC 21.1 H 18.0 H RBC 4.30 L 3.90 L Hgb 13.3 L 12.1 L Hct 38.9 L 34.9 L MCV 90.5 89.5 MCH 30.9 31.0 MCHC 34.2 34.7 RDW 12.7 12.6 Plt Count 257 258 MPV 8.8 9.3 Immature Gran % (Auto) 0.6 H Neut % (Auto) 94.9 H Lymph % (Auto) 1.1 L [place] % (Auto) 3.3 Eos % (Auto) 0.0 Baso % (Auto) 0.1 L Lymph # (Auto) 0.23 L [place] # (Auto) 0.7 H Eos # (Auto) 0.0 Baso # (Auto) 0.0 Abs Immat Gran (auto) 0.13 H Absolute Neuts (auto) 20.1 H Absolute Nucleated RBC 0.000 Nucleated RBC % 0.0 PT 14.0 INR 1.1 APTT 27.9 Sodium 123 L 123 L Potassium 4.2 4.4 Chloride 91 L 93 L Carbon Dioxide 21 L 22 Anion Gap 11 8 BUN 28 H 31 H Creatinine 1.05 1.01 Estim Creat Clear Calc 42 44 Estimated GFR > 60 > 60 Glucose 196 H 176 H Calcium 9.3 8.9 Total Bilirubin 0.9 AST 29 ALT 25 Alkaline Phosphatase 106 Troponin I < 0.012 Total Protein 7.4 Albumin 4.1 Prostate Specific Ag 2.2 Quality VTE Prophylaxis VTE prophylaxis: mechanical ordered
[2025-04-17] MEDS: IPRATROPIUM BR 0.02% INH SOLN 0.5 MG/2.5 ML VIAL INHALATION ×2 (13:16→20:50)
[2025-04-17] MEDS: SODIUM CHLORIDE 0.9% IV 1,000 ML 75 ML IV CONT (14:21)
[2025-04-17] MEDS: PANTOPRAZOLE 40 MG TABLET PO (14:22)
[2025-04-17 19:59] LABS: Anion Gap 10 mmol/L (4-12); Blood Urea Nitrogen 36 mg/dL (9-20); Calcium 8.8 mg/dL (8.4-10.2); Carbon Dioxide 20 mmol/L (22-30); Chloride 95 mmol/L (98-107); Estimated CRCL calculation 43 ml/min; Estimated Glomerular Filt Rate > 60; Glucose 192 mg/dL (65-110); Potassium 4.1 mmol/L (3.4-5.0); Sodium 125 mmol/L (137-145)
[2025-04-17] MEDS: guaiFENesin 12 HR 600 MG TABCR 1200 MG PO (20:39)
[2025-04-18] VITALS (13 sets, daily range): BP systolic 153–177; BP diastolic 61–83; PULSE 81–104; RESP 16–18; TEMP 36.7–37.1; O2SAT 90–93
[2025-04-18 00:03] LABS: Add Urine Microscopic? YES; Appearance Urine Clear (Clear); Glucose Urine UA Trace mg/dL (Negative); Leukocyte Esterase Ur Negative LEU/UL (Negative); Nitrate Urine Negative (Negative); Specific Grav Ur 1.025 (1.001-1.035)
[2025-04-18] MEDS: IPRATROPIUM BR 0.02% INH SOLN 0.5 MG/2.5 ML VIAL INHALATION ×4 (01:44→22:40)
[2025-04-18 06:40] LABS: Hematocrit 34.5 % (42.0-52.0); Hemoglobin 11.9 g/dL (14.0-18.0); Immature Granulocyte Percent A 0.9 % (0-0.5); Lymphocytes Absolute Auto 0.46 K/mm3 (0.9-3.2); Mean Corpuscular HGB Conc 34.5 g/dl (32-36); Mean Corpuscular Hemoglobin 31.3 pg (26-34); Mean Corpuscular Volume 90.8 fl (80-100); Nucleated Red Blood Cells Absolute Auto 0.000 K/mm3 (0.0-0.012); Nucleated Red Blood Cells Perc 0.0 % (0.0-0.2); Platelet Count Result 273 k/mm3 (150-375); Red Blood Count 3.80 M/mm3 (4.6-6.20); White Blood Count 16.5 K/mm3 (4.5-10.0)
[2025-04-18 07:06] LABS: Alanine Aminotransferase 31 U/L (6-50); Albumin Level 3.3 g/dL (3.5-5.1); Alkaline Phosphatase 113 U/L (38-126); Anion Gap 8 mmol/L (4-12); Aspartate Amino Transferase 28 U/L (17-59); Bilirubin,Total 0.3 mg/dL (0.2-1.3); Blood Urea Nitrogen 32 mg/dL (9-20); Calcium 8.5 mg/dL (8.4-10.2); Carbon Dioxide 21 mmol/L (22-30); Chloride 97 mmol/L (98-107); Estimated CRCL calculation 48 ml/min; Estimated Glomerular Filt Rate > 60; Glucose 184 mg/dL (65-110); Magnesium 2.2 mg/dL (1.6-2.3); Potassium 3.9 mmol/L (3.4-5.0); Sodium 126 mmol/L (137-145); Total Protein 6.2 g/dL (6.3-8.2)
[2025-04-18] MEDS: guaiFENesin 12 HR 600 MG TABCR 1200 MG PO ×2 (09:15→21:10)
[2025-04-18] MEDS: ASPIRIN 81 MG ENTERIC TABLET PO (09:15)
[2025-04-18] MEDS: ATORVASTATIN 20 MG TABLET PO (09:15)
[2025-04-18] MEDS: PANTOPRAZOLE 40 MG TABLET PO (09:16)
[2025-04-18] MEDS: DOCUSATE SODIUM 100 MG CAPSULE PO ×2 (09:16→16:05)
[2025-04-18] MEDS: LOSARTAN POTASSIUM 50 MG TABLET PO (09:16)
[2025-04-18] MEDS: FLUTICASONE PROPIONATE 0.05% NA SPR 16 GM BTL (*BKC) 1 SPRAY NASAL ×2 (09:17→16:05)
[2025-04-18] MEDS: SODIUM CHLORIDE 0.9% IV 1,000 ML 75 ML IV CONT (09:25)
--- NOTE | 2025-04-18 11:40 | PM.CNCAR ---
Assessment and Plan Assessment and plan (1) Acute exacerbation of chronic obstructive pulmonary disease: Code(s): J44.1 - Chronic obstructive pulmonary disease with (acute) exacerbation Status: Acute Plan 89-year-old male with hypertension, diastolic dysfunction, ?PSVT, COPD, history of heavy tobacco abuse. Patient admitted with worsening dyspnea, found to be hypoxemic; with possible pneumonia. Patient's current symptomatology is secondary to underlying lung disease. EKG shows sinus rhythm with RBBB. Patient is currently not in CHF. No significant volume overload on physical examination. Recent echo from 12/19/2024 personally showed LVH, normal LV systolic function, grade 1 diastolic dysfunction. -management of COPD and possible pneumonia as per primary team and pulmonology. -? History of PSVT. Currently in sinus rhythm. Continue to monitor for any arrhythmias. Can follow-up as an outpatient. -spoke at length with the patient and his daughter. Also discussed with hospitalist team. -will sign off. Please call with any questions. History of Present Illness History of Present Illness Consult date/time: 04/18/25 11:40 Requesting physician: Tabatha Rosa APRN Reason For Visit: copd exacerbation Narrative: DATE OF CONSULT: 04/18/2025 REASON FOR CONSULT: Arrhythmia REQUESTING PHYSICIAN:DARWIN Rosa CHIEF COMPLAINT: Shortness of breath HPI: 89-year-old male with hypertension, diastolic dysfunction, ?PSVT, COPD, history of heavy tobacco abuse. Patient presented to [facility] Emergency Room on 04/16/2025 with worsening shortness of breath. No chest pain. At the time of evaluation, patient's daughter was in the room. According to patient's daughter and patient, he was doing reasonably well until recently when he started getting short of breath. Denied any prior cardiac history including clinical NC, angina, heart rate or any known arrhythmias. There was some question of PSVT in the past. Patient has been in sinus rhythm during hospitalization. EKG on my personal interpretation showed sinus rhythm, RBBB. PO2 57 on ABG. NT proBNP 673. Chest x-ray unremarkable. CT showed no pulmonary embolism, aortic dissection, pericardial fluid or thoracic aneurysm; emphysematous changes; 13.5 mm pulmonary nodule in the left lower lobe. Recent echo from 12/19/2024 personally showed LVH, normal LV systolic function, grade 1 diastolic dysfunction. Review of Systems Review of Systems: General: Positive for fatigue Psychological: Negative for anxiety, depression Ophthalmic: negative for loss of vision ENT: Negative for epistaxis, headaches Allergy and immunology: Negative for hives, nasal congestion Hematologic and lymphatic: Negative for overt bleeding problems Endocrine: Negative for hot flashes, palpitations Respiratory: Negative for cough, hemoptysis Cardiovascular: Negative for chest pain, positive for dyspnea Gastrointestinal: Negative for abdominal pain, nausea, vomiting, hematochezia Musculoskeletal: Negative for myalgia, joint pains Neurological: Positive generalized weakness Dermatological: Negative for rash, skin discoloration PMFSH Past Medical History Medical History PSVT (paroxysmal supraventricular tachycardia) Pulmonary emboli Peptic ulcer disease History of atrial fibrillation Lumbar radiculopathy Lumbar spondylosis Peripheral vascular disease Chronic obstructive pulmonary disease Benign prostatic hyperplasia Depression Seasonal allergies Anemia Hypertension Atrial fibrillation Anxiety Constipation Dementia Hyperlipidemia Surgical History Surgical History H/O transurethral resection of prostate H/O cardiac catheterization H/O angioplasty Iliac vessels H/O cataract extraction Status post peripheral artery angioplasty with insertion of stent History of cholecystectomy Family History Family History Sibling CHF (congestive heart failure) Other Unknown family medical history Social History Social History Social History: He is a . He is Jew. he is retired Healthcare power of document review attorney: Roseanne Noguera. Code status: DNR Smoking packs per day: 1 Smoking cigarettes per day: 20.0 Smoking status: Former smoker Second hand tobacco smoke exposure: No Alcohol intake: never Drinks per week: 1 Substance use: never Substance use type: does not use Do You Feel Safe in your Home?: Yes Lack of Transportation: No Lack of Food: Never True Current Housing: I Have Housing Concerned About Future Housing: No Difficulty Paying Gas/Electric Bills: No Difficulty Paying for Meds: No Currently Unemployed: No Education: Grade School Difficulty w/ Childcare or Family Care: No Living arrangements: assisted living Occupation/Education: retired Gender identity (if verbalized by the patient): Male Sexual Orientation (if Verbalized by the Patient): Straight or Heterosexual Spiritual care concerns: Yes Agree to blood products: Yes Meds Home Medications and Allergies Home Medications ?Medication ?Instructions ?Recorded ?Confirmed ?Type aspirin 81 mg tablet,delayed 81 mg PO DAILY 12/12/21 04/17/25 History release polyethylene glycol 3350 17 gram 17 g PO QAM #7 ea 03/15/24 04/17/25 Rx oral powder packet (Miralax) amlodipine 5 mg tablet 5 mg PO DAILY #30 tabs 12/24/24 04/17/25 Rx losartan 100 mg tablet 50 mg PO DAILY 01/22/25 04/17/25 History buspirone 5 mg tablet 5 mg PO Q12HR #60 tabs 01/24/25 04/17/25 Rx docusate sodium 100 mg capsule 100 mg PO BID #30 caps 01/24/25 04/17/25 Rx atorvastatin 40 mg tablet (Lipitor) 20 mg (1/2 x 40 mg) PO DAILY #90 03/04/25 04/17/25 Rx tabs albuterol sulfate 90 mcg/actuation 2 puff inhalation Q4H PRN 03/24/25 04/17/25 History aerosol inhaler (Ventolin HFA) shortness of breath or wheezing benzonatate 200 mg capsule 200 mg PO .Q8HR PRN cough 04/16/25 04/17/25 History fluticasone furoate 100 1 inh inhalation DAILY 04/16/25 04/17/25 History mcg-vilanterol 25 mcg/dose inhalation powder (Breo Ellipta) fluticasone propionate 50 1 spray intranasal BID 04/16/25 04/17/25 History mcg/actuation nasal spray,suspension (24 Hour Allergy Relief) Allergies Allergy/AdvReac Type Severity Reaction Status Date / Time No Known Allergies Allergy Verified 04/17/25 00:42 Vital Signs Vital Signs - 24 hr 04/17/25 13:19 04/17/25 13:33 04/17/25 20:00 Temperature 36.9 C Pulse Rate 80 115 H Respiratory Rate 20 22 H Blood Pressure 127/67 Pulse Oximetry 91 Oxygen Delivery Room Air 04/17/25 20:50 04/17/25 20:58 04/17/25 23:36 Temperature 36.6 C Pulse Rate 80 88 99 Respiratory Rate 18 18 18 Blood Pressure 158/68 H Pulse Oximetry 93 Oxygen Delivery 04/18/25 01:44 04/18/25 01:54 04/18/25 05:43 Temperature 37.0 C Pulse Rate 92 96 91 Respiratory Rate 18 18 18 Blood Pressure 155/72 H Pulse Oximetry 92 Oxygen Delivery 04/18/25 07:24 04/18/25 07:27 04/18/25 07:29 Temperature Pulse Rate 81 81 82 Respiratory Rate 16 16 16 Blood Pressure Pulse Oximetry 91 Oxygen Delivery Room Air 04/18/25 08:00 04/18/25 11:20 Temperature 36.8 C Pulse Rate Respiratory Rate Blood Pressure Pulse Oximetry Oxygen Delivery Room Air Exam Narrative: PHYSICAL EXAMINATION: GENERAL: Elderly male, alert, no distress MENTAL STATUS: affect appropriate to mood EYES: Extraocular movements intact, no pallor EARS: External ears appear normal, hearing grossly normal NOSE: Normal and patent, no discharge MOUTH: Mucous membranes moist, tongue normal NECK: Supple, no JVD CHEST: Diminished breath sounds globally HEART: Normal rate, regular rhythm, normal S1 and S2 ABDOMEN: Soft, nontender NEUROLOGICAL: Alert, oriented, normal speech, no gross motor deficits MUSCULOSKELETAL: No major deformity, no amputation EXTREMITIES: No pedal edema, no clubbing, no cyanosis SKIN: no rash on the exposed area, no cyanosis PSYCHIATRIC: Normal mood, appropriate affect Results Labs and Meds 04/18/25 05:56 04/18/25 05:56 Lab results: Cardiac Enzymes 04/18/25 Range/Units 05:56 AST 28 (17-59) U/L CBC 04/18/25 Range/Units 05:56 WBC 16.5 H (4.5-10.0) K/mm3 RBC 3.80 L (4.6-6.20) M/mm3 Hgb 11.9 L (14.0-18.0) g/dL Hct 34.5 L (42.0-52.0) % Plt Count 273 (150-375) k/mm3 Lymph # (Auto) 0.46 L (0.9-3.2) K/mm3 [place] # (Auto) 0.8 H (0.1-0.6) K/mm3 Eos # (Auto) 0.0 (0-0.3) K/mm3 Baso # (Auto) 0.0 (0.0-0.1) K/mm3 Comprehensive Metabolic Panel 04/17/25 04/18/25 Range/Units 19:31 05:56 Sodium 125 L 126 L (137-145) mmol/L Potassium 4.1 3.9 (3.4-5.0) mmol/L Chloride 95 L 97 L (98-107) mmol/L Carbon Dioxide 20 L 21 L (22-30) mmol/L BUN 36 H 32 H (9-20) mg/dL Creatinine 1.02 0.91 (0.7-1.3) mg/dL Glucose 192 H 184 H (65-110) mg/dL Calcium 8.8 8.5 (8.4-10.2) mg/dL AST 28 (17-59) U/L ALT 31 (6-50) U/L Alkaline Phosphatase 113 (38-126) U/L Total Protein 6.2 L (6.3-8.2) g/dL Albumin 3.3 L (3.5-5.1) g/dL Intake and Output 04/17/25 04/18/25 04/18/25 23:59 07:59 15:59 Intake Total 1220 1000 240 Output Total 525 Balance 1220 1000 -285 Intake: IV 1000 Sodium Chloride 0.9% IV 1,000 1000 ml @ 75 mls/hr IV CONT .[id number] [facility] Rx#:[id number] Oral 1220 240 Output: Urine 525
--- NOTE | 2025-04-18 12:22 | P.PNIM_ITS ---
Progress Note: A&P Assessment and Plan (1) Dyspnea on exertion: Code(s): R06.09 - Other forms of dyspnea Status: Acute Assessment and Plan: -the patient's chest x-ray shows no acute cardiopulmonary. -his lungs sound clear. -the patient had an echo in 11/2024 which was read as the followingTechnically suboptimal study due to poor sonographic images. 2. Definity contrast administered improved wall motion interpretation. 3. Left ventricular chamber dimension is normal. 4. Left ventricular systolic function is normal, estimated at 60-65. 5. There is mild concentric increased left ventricular wall thickness. 6. The left ventricular diastolic function is grade I diastolic dysfunction. 7. E/e' 5 is not elevated. 8. Agitated saline injection with and without valsalva maneuver which was suboptimal as bubbles not seen in right ventricle. 9. There is mild aortic valve sclerosis. 10. There is trace aortic valve regurgitation. 11. There is mild mitral valve regurgitation. 12. There is mild tricuspid valve regurgitation. 13. No pulmonary hypertension, estimated pulmonary arterial systolic pressure is 30 mmHg. 14. There is trace pulmonic regurgitation. -he had a hs/abdomen/pelvis CTA on 04/15/2025There is no pulmonary embolism, aortic dissection, pericardial fluid or thoracic aneurysm. Emphysematous changes. 13.5 mm pulmonary nodule in the left lower lobe. No acute abnormality is noted in the abdomen and pelvis. Lobulated enlarged prostate gland is noted. Correlation with PSA is recommended. -the patient may need a pulmonary function test. -patient most likely has some component of emphysema please. -continue with the breathing treatments and steroids for now. -pulmonary consultation greatly be appreciated. -cardiac enzymes are negative. -exertional dyspnea unclear. The patient has had PEs in the past but was for PEs on the most recent CTA. He is also known to have AFib and SVT in the past. The patient may benefit from a continuous rn clinical research. -continue with Luz Maria Thomson 04/17: Pt A&O x4 today but confused at sometimes. Daughter is at the bedside, states that this is somewhat his baseline but he has been waxing and waning. UA has not been performed to r/o UTI, Ordered today. -Pulm also saw pt today and with seeing nodules on CT, treating aggressively if it were PNA. PNA vs. scarring. IV Levaquin ordered as well as COPD exacerbation meds: prednisone, guifenesin, nebs, inhalers. -resp panel pending -cards consult pending -->May order echo depending on how sx progress/MALDONADO -[id number], will continue to trend 04/18: Started Levofloxacin per pulmonary recommendations and continued prednisone 40 mg daily (2) Hyponatremia: Code(s): E87.1 - Hypo-osmolality and hyponatremia Status: Acute Assessment and Plan: Appears to be chronic, but Na 123 today, acute may be contributing to disorientation today -IVF NS ordered -Repeat BMP this evening -May consider fluid restriction and/or Na supplement if does not rise -Pending cards consult to r/u other potential risk factors -Kidneys function WDL for age -10/18: Improved to 126 with hydration; baseline is 127-133; ordered TSH, FENa (3) Dementia: Code(s): F03.90 - Unspecified dementia, unspecified severity, without behavioral disturbance, psychotic disturbance, mood disturbance, and anxiety Status: Acute Assessment and Plan: No officially established but likely dx Ordered lab evaluation 04/1801/22/25 CT Brain: The ventricles are enlarged. The dilatation of the ventricles is proportional to the degree of sulcal prominence, not uncommon in the senescent brain. Decreased attenuation is identified within the periventricular white matter, likely secondary to microvascular ischemic disease, in a patient of this age. There is no mass, mass effect or midline shift. There is no abnormal extra-axial fluid collection or intracranial hemorrhage. Visualized paranasal sinuses are clear. The mastoid air cells are well aerated. No acute displaced fractures within the overlying cranium. Impression: No acute intracranial hemorrhage or suspicious mass effect. (4) Benign prostatic hyperplasia: Code(s): N40.0 - Benign prostatic hyperplasia without lower urinary tract symptoms Status: Acute Assessment and Plan: 04/18 started tamsulosin (5) Hyperglycemia: Code(s): R73.9 - Hyperglycemia, unspecified Status: Acute Assessment and Plan: 04/18: Likely due to steroids with possible impaired glucose tolerance, A1c orderd (6) Anxiety: Code(s): F41.9 - Anxiety disorder, unspecified Status: Acute Assessment and Plan: -continue with buspirone (7) Depression: Code(s): F32.A - Depression, unspecified Status: Acute Assessment and Plan: -continue buspirone (8) Hypertension: Code(s): I10 - Essential (primary) hypertension Status: Acute Assessment and Plan: -continue losartan -daily BMP -continue with amlodipine (9) Hyperlipidemia: Code(s): E78.5 - Hyperlipidemia, unspecified Status: Chronic Assessment and Plan: -continue with atorvastatin can continue to monitor liver enzymes (10) COPD (chronic obstructive pulmonary disease): Code(s): J44.9 - Chronic obstructive pulmonary disease, unspecified Status: Acute Subjective Date/time seen: 04/18/25 12:22 Interval history: Waxing and waning mental status continues. Confused morning any evenings at home but more so in hospital. Sometimes becomes agitated in the evening. Denied pain. Has minimally productive cough that is chronic a bit worse recently. Has difficulty producing sputum. Denied chest pain. Shortness of breath with any exertion out of bed. Poor appetite. No prior history of diabetes. No prior diagnosis of dementia. Has urinary frequency and multiple episodes of nocturia. No GI complaints. Review of Systems Review of Systems: All systems reviewed & are unremarkable except as noted in HPI and below Exam Narrative: HEENT: PERRL, sclerae nonicteric, pharyngeal mucosa pink and intact NECK: No JVD, adenopathy, or thyromegaly CHEST: Clear to auscultation. Normal effort HEART: NL S1/S2, regular, no murmur ABDOMEN: BS+, soft, nontender, no mass, no bruits EXTREMITIES: No cyanosis, edema, or clubbing NEUROLOGIC: CN intact and symmetric to inspection MUSCULOSKELETAL: Tone and strength symmetric PSYCH: Alert. Oriented to person, but not to place or time Objective Data Vital Signs Vital Signs: Vital Signs - 24 hr 04/17/25 13:19 04/17/25 13:33 04/17/25 20:00 Temperature 98.4 F Pulse Rate 80 115 H Respiratory Rate 20 22 H Blood Pressure 127/67 Pulse Oximetry 91 Oxygen Delivery Room Air 04/17/25 20:50 04/17/25 20:58 04/17/25 23:36 Temperature 97.8 F Pulse Rate 80 88 99 Respiratory Rate 18 18 18 Blood Pressure 158/68 H Pulse Oximetry 93 Oxygen Delivery 04/18/25 01:44 04/18/25 01:54 04/18/25 05:43 Temperature 98.6 F Pulse Rate 92 96 91 Respiratory Rate 18 18 18 Blood Pressure 155/72 H Pulse Oximetry 92 Oxygen Delivery 04/18/25 07:24 04/18/25 07:27 04/18/25 07:29 Temperature Pulse Rate 81 81 82 Respiratory Rate 16 16 16 Blood Pressure Pulse Oximetry 91 Oxygen Delivery Room Air 04/18/25 08:00 04/18/25 11:20 Temperature 98.2 F Pulse Rate Respiratory Rate Blood Pressure Pulse Oximetry Oxygen Delivery Room Air Intake/Output Intake/Output: Intake & Output 04/15/25 04/16/25 04/17/25 04/18/25 23:59 23:59 23:59 23:59 Intake Total 1520 1240 Output Total 525 Balance 1520 715 Meds/Results Medications: Active Medications Generic Name Dose Route Start Last Admin Trade Name Freq PRN Reason Stop Dose Admin Amlodipine Besylate 5 mg 04/17/25 09:00 04/18/25 09:16 Amlodipine Besylate 5 Mg Tablet PO 5 mg DAILY CONNIE Administration Aspirin 81 mg 04/17/25 09:00 04/18/25 09:15 Aspirin 81 Mg Enteric Tablet PO 81 mg DAILY CONNIE Administration Atorvastatin Calcium 20 mg 04/17/25 09:00 04/18/25 09:15 Atorvastatin 20 Mg Tablet PO 20 mg DAILY CONNIE Administration Benzonatate 200 mg 04/17/25 08:37 Benzonatate 100 Mg Capsule PO Q8H PRN cough Buspirone HCl 5 mg 04/17/25 09:00 04/18/25 09:16 Buspirone Hcl 5 Mg Tablet PO 5 mg Q12HR CONNIE Administration Dextrose 12.5 gm 04/18/25 12:17 Dextrose 50% 25 Gm/50 Ml Syringe IV PUSH PRN PRN Hypoglycemia Protocol Docusate Sodium 100 mg 04/17/25 09:00 04/18/25 09:16 Docusate Sodium 100 Mg Capsule PO 100 mg BID CONNIE Administration Fluticasone Propionate 1 spray 04/17/25 09:00 04/18/25 09:17 Fluticasone Propionate 0.05% Na Spr 16 Gm Btl (*Bkc) NASAL 1 spray BID CONNIE Administration Glucagon 1 mg 04/18/25 12:17 Glucagon For Inj 1 Mg Vial IM PRN PRN Hypoglycemia Protocol Glucose 15 gm 04/18/25 12:17 Glucose Oral Gel 15 Gm Of Glucse In 37.5 Gm Tube PO PRN PRN Hypoglycemia Protocol Guaifenesin 1,200 mg 04/17/25 21:00 04/18/25 09:15 Guaifenesin 12 Hr 600 Mg Tabcr PO 1,200 mg Q12HR CONNIE Administration Sodium Chloride 1,000 mls @ 75 mls/hr 04/17/25 11:45 04/18/25 09:25 Normal Saline Iv IV CONT 75 mls/hr .[id number] CONNIE Administration Dextrose 1,000 mls @ 100 mls/hr 04/18/25 12:17 Dextrose 5% 1,000 Ml IVPB PRN PRN Hypoglycemia Protocol Insulin Aspart 2 - 5 units 04/18/25 17:00 Insulin Aspart (*Bkc) 100 Units/Ml SUB-Q TIDWM CONNIE Protocol Insulin Glargine 10 units 04/18/25 21:00 Insulin Glargine (*Bkc) 100 Units/Ml SUB-Q HS CONNIE Ipratropium [place] 0.5 mg 04/17/25 14:00 04/18/25 07:24 Ipratropium Br 0.02% Inh Soln 0.5 Mg/2.5 Ml Vial INHALATION 0.5 mg Q6HRT CONNIE Administration Levofloxacin 750 mg 04/18/25 12:20 Levofloxacin 750 Mg Tablet PO 04/24/25 17:00 Q48H CONNIE Losartan Potassium 50 mg 04/17/25 09:00 04/18/25 09:16 Losartan Potassium 50 Mg Tablet PO 50 mg DAILY CONNIE Administration Pantoprazole Sodium 40 mg 04/17/25 13:50 04/18/25 09:16 Pantoprazole 40 Mg Tablet PO 40 mg QAM CONNIE Administration Polyethylene Glycol 17 gm 04/17/25 09:00 04/18/25 09:16 Polyethylene Glycol 3350 17 Gm Powd.Pack PO 17 gm QAM CONNIE Administration Prednisone 40 mg 04/18/25 08:00 04/18/25 09:15 Prednisone 20 Mg Tablet PO 40 mg DAILY@0800 CONNIE Administration Radiology Results: ITS Impressions Chest X-Ray 04/16/25 21:21 IMPRESSION: No acute pulmonary findings. Labs Labs: Laboratory Results - last 24 hr 04/17/25 04/17/25 04/18/25 19:31 23:51 05:56 WBC 16.5 H RBC 3.80 L Hgb 11.9 L Hct 34.5 L MCV 90.8 MCH 31.3 MCHC 34.5 RDW 12.8 Plt Count 273 MPV 9.3 Immature Gran % (Auto) 0.9 H Neut % (Auto) 91.6 H Lymph % (Auto) 2.8 L [place] % (Auto) 4.6 Eos % (Auto) 0.0 Baso % (Auto) 0.1 L Lymph # (Auto) 0.46 L [place] # (Auto) 0.8 H Eos # (Auto) 0.0 Baso # (Auto) 0.0 Abs Immat Gran (auto) 0.15 H Absolute Neuts (auto) 15.1 H Absolute Nucleated RBC 0.000 Nucleated RBC % 0.0 Sodium 125 L 126 L Potassium 4.1 3.9 Chloride 95 L 97 L Carbon Dioxide 20 L 21 L Anion Gap 10 8 BUN 36 H 32 H Creatinine 1.02 0.91 Estim Creat Clear Calc 43 48 Estimated GFR > 60 > 60 Glucose 192 H 184 H Calcium 8.8 8.5 Magnesium 2.2 Total Bilirubin 0.3 AST 28 ALT 31 Alkaline Phosphatase 113 Total Protein 6.2 L Albumin 3.3 L Urine Color Yellow Urine Appearance Clear Urine pH 5.5 Ur Specific [place] 1.025 Urine Protein Trace Urine Glucose (UA) Trace H Urine Ketones Negative Ur Blood (Man) Negative Urine Nitrate Negative Urine Bilirubin Negative Urine Urobilinogen 1.0 Leukocyte Esterase Rfl Negative Urine RBC 0-2 Urine WBC 0-5 Ur Squamous Epith Cells None seen Urine Bacteria None seen Urine Casts 3-5
--- NOTE | 2025-04-18 14:11 | PM.PNPUL ---
Progress Note: A&P Assessment and Plan (1) Acute exacerbation of chronic obstructive pulmonary disease: Code(s): J44.1 - Chronic obstructive pulmonary disease with (acute) exacerbation Status: Acute Assessment and Plan: 04/17; He has diffuse bullous emphysema, smoked from [id number] at half a pack a day for total of 27 pack years. Patient states that he does walk with a walker and has shortness of breath that limits him. He is not on any oxygen. I have no PFTs. For CT scan on 12/31/2002 in our system shows bullous emphysema in the report. CT angiogram of the chest on 04/15/2025 shows moderate apical predominant centrilobular emphysema right apical scarring, right upper lobe ground-glass infiltrate and left lower lobe 9.7 times 13.4 mm nodule with surrounding infiltrate. ABG on 04/15 on room air 7.49/57. Patient is maintained on Breo Ellipta and p.r.n. albuterol. He is not on home oxygen. 04/15/25: White blood cell count 13.3, eosinophils 0.4% equals 53 per micro L patient is unable to give me a reliable history but states he has been short of breath for 3 days. He presented to the emergency room on 04/15, and had a CT angiogram of the chest with no pulmonary embolism, moderate apical predominant centrilobular emphysema right upper lobe ground-glass infiltrate and left lower lobe nodule. ABG on room air 7.49/. Patient was treated for COPD exacerbation with bronchodilators and steroids. Patient re-presented to the emergency room on 04/16 with a white blood cell count 21.1, creatinine 1.05 and was admitted to the hospital. COVID, influenza, RSV RT PCR assay negative. 04/17/2025; Patient tells me he has no rest shortness of breath, his dyspnea on exertion is the same as yesterday. He denies fever, chills, rigors, phlegm production or hemoptysis. he is on room air with saturations 94%. He is afebrile. White blood cell count 18.0, creatinine 1.01. no wheezing on exam. he complains his phlegm does get stuck in his throat. Plan: I will treat patient for COPD exacerbation. He was started on Solu-Medrol and is currently on 60 mg IV q.6 hours, last dose at 9:37 a.m. this morning. He has no wheezing. I will discontinue Solu-Medrol place him on prednisone 40 starting tomorrow. He was placed on Advair 115-21 at 2 puffs q.12 hours. I will discontinue Advair and place him on ipratropium nebulizers Q 6 hours only as there is a possibility of an SVT last night. Patient has no infectious complaints but does have nodules with infiltrate and I will treat him with Levaquin 750 mg p.o. Q 48 hours for 7 days for creatinine clearance of 44. I will send a respiratory pathogen panel looking for etiology of a possible exacerbation. He complains phlegm it is getting stuck in his throat and I will place him on guaifenesin 1200 mg p.o. b.i.d. and also initiate a Cornet flutter valve. 04/18; no change in his current treatment regimen. I discussed his care with Dr Samuels and his daughter, Josiane. I spoke with her about encouraging jordan to drink enough fluids to loose secretions to improve expectoration. (2) Lung nodule: Code(s): R91.1 - Solitary pulmonary nodule Status: Acute Assessment and Plan: He has 13.5 x 9.7 mm pulmonary nodule in the left lower lobe, subpleural reticulations in the lung bases posteriorly, may be early pulmonary fibrosis. We will discuss urther work up when he is an out patient. This is an outpatient issue. He will need repeat imaging either with CT or PET scan. Plan plan: 1) No changes in his care at this time. Continue same medications -->oral Levaquin, po prednisone, guaifenesin, Tessalon perles/benzonatate, nebulized ipratropium. He is not on a beta agonist because he has atrial fibrillation, albuterol may aggravate his dysrhythmia. At home he was using Breo, LABA and ICS, and albuterol as a p.r.n. inhaler. 2) I discussed his case with Dr Samuels who started oral Levaquin, thank you. The patient did not have an infiltrate, so a delay in starting antibiotics has no clinical impact. COPD exacerbations are not required to have antibiotics as most of these events are viral in nature. Starting antibiotics is not wrong, as there may be anti-inflammatory benefit. 3) He is not requiring O2 at this time, saturation 90-94% on room air however he will need a walk study prior to discharge. He may need O2 with exertion. Josiane said that at home, he desaturated as low as 83% after walking and resting. This is common for COPD patients. His oximeter at [facility] shows a normal value while moving, but when stopping, resting, the desaturation can be delayed. Josiane says that it has dropped to 83%. 4) Watch for results of extended pathogen panel, other diagnostic tests. These often return negative. 5) As an outpatient, he will come for an initial office visit in 2-3 weeks, see how he feels after recovering from this acute exacerbation of COPD, see if meds need to be adjusted; we will address his pulmonary nodule as this may represent a malignancy. He is . Plan for out patient PFT, 6 Minute Walk when he is stable at baseline, and plan to refer to pulmonary rehab. This is to increase strength, balance, endurance, and quality of life, if he wants to do it and if someone can take him twice a week. We will discuss work up of his LLL nodule. He is almost 89, has dementia, not sure of he could tolerate a PET scan. Josiane said that her sister Roseanne will be here tomorrow after 1:00 pm, and I will plan to meet with them. Subjective Date/time seen: 04/18/25 14:11 Interval history: 04/17/2025: This is a new pulmonary consult for COPD exacerbation and lung nodules. 89-year-old with a history of dementia, atrial fibrillation and COPD. Patient has dementia. He misspelled his last name, does not know the place or year and does not know the signal circuit designer. I spoke to the daughter and she says he is more confused since he is been in the hospital. Regarding his COPD: Patient smoked from [id number] at half a pack a day for total of 27 pack years. Patient states that he does walk with a walker and has shortness of breath that limits him. He is not on any oxygen. I have no PFTs. For CT scan on 12/31/2002 in our system shows bullous emphysema in the report. CT angiogram of the chest on 04/15/2025 shows moderate apical predominant centrilobular emphysema right apical scarring, right upper lobe ground-glass infiltrate and left lower lobe 9.7 times 13.4 mm nodule with surrounding infiltrate. Patient is maintained on Breo Ellipta and p.r.n. albuterol. He is not on home oxygen. patient is unable to give me a reliable history but states he has been short of breath for 3 days. He presented to the emergency room on 04/15, and had a CT angiogram of the chest with no pulmonary embolism, moderate apical predominant centrilobular emphysema right upper lobe ground-glass infiltrate and left lower lobe nodule. ABG on room air 7.49/57. Patient was treated for COPD exacerbation with bronchodilators and steroids. Patient re-presented to the emergency room on 04/16 with a white blood cell count 21.1, creatinine 1.05 and was admitted to the hospital. 04/17/2025; Patient tells me he has no rest shortness of breath, his dyspnea on exertion is the same as yesterday. He denies fever, chills, rigors, phlegm production or hemoptysis. he is on room air with saturations 94%. He is afebrile. White blood cell count 18.0, creatinine 1.01. no wheezing on exam. 04/18/2025; 14:45 time of visit; patient is seen in follow up for COPD exacerbation and a pulmonary nodule 13.5 mm in the left lower lobe. He is on room air, sat is 90-94%. WBC is lower, 16.5k, 18k yesterday, 21.1k on admission with creatinine 1.01. He is on po Levaquin #1, prednisone 40 mg, guaifenesin, nebs, inhalers. His daughter Josiane is present, and I discussed her father's condition, showed her imaging, answered questions. She provided additional formation about his health. He has lived at [facility] for 2 months, after being in the hospital over the summer with poor breathing, dizziness, a minimal fall which his daughter said was due to dizziness on standing, tried to sit, slid to floor. He is angry and forgetful, all this is new. He had a headache today. He does not usually get headaches. She said that he has problems with abdominal symptoms, not all the time. Abdominal distention can cause difficulty breathing if abdominal distention is present. A large abdomen can prevent emphysematous lungs from fully expanding. No family history of lung cancer. Most of his relatives with heart disease, late in life, except for a brother who in his 40s from a stroke. The patient is one of 6 children. The patient is now getting out patient rehab for falls. He has never had PFTS, is on Breo and albuterol prescribed by his primary, and the staff at [facility] helps him with his inhaler. He has lots of sinus problems, sneezes often, constant dry cough, blames it on moving here, [place] in [place], [place]. He returned to [place] in 2021. His second 8+ years ago, he had no help, bought a house and was living alone before he went to assisted Living. He quit tobacco 10-15 years ago, new did not allow it. She 8-10 years ago. Today, he still has a cough, is using Cornet valve with good technique. He is using it on the 4th setting. This will eventually help clear secretions, and he can use it at home. He has mostly normal eosinophils on review of his labs, had a count of 400 in December 2024. Review of chest CT shows subpleural reticulations and a LLL nodule 13.5 x 9.7 mm. DATA: CTA chest PE abdomen pel HISTORY:Shortness of breath evaluate for PE, abdominal rosy . COMPARISON: None. TECHNIQUE: Following the noncontrasted obgyn hospitalist physician, axial images of the thorax were obtained following infusion of 100 cc of Isovue 370. Post-processing on an independent workstation was performed to reconstruct MIP images for evaluation of the thoracic vasculature. FINDINGS: There is no pulmonary embolism, aortic dissection, thoracic aneurysm or pericardial fluid. Diffuse centrilobular emphysema noted. There is a 13.5 x 9.7 mm pulmonary nodule in the left lower lobe. Subpleural reticulation are noted. There is a intrafissural nodule within the right middle lobe measuring 5 mm. No pleural effusion or pneumothorax is noted. There is no axillary, mediastinal or hilar adenopathy. Review of bone windows demonstrates no osteoblastic or lytic lesions. IMPRESSION: There is no pulmonary embolism, aortic dissection, pericardial fluid or thoracic aneurysm. Emphysematous changes. 13.5 mm pulmonary nodule in the left lower lobe. CTA chest PE abdomen pel INDICATION:Shortness of breath evaluate for PE, abdominal rosy . COMPARISON: None. TECHNIQUE: Axial images of the abdomen and pelvis were obtained following infusion of 100 mL Isovue 370. Dose optimization technique was utilized. FINDINGS: The liver parenchyma is unremarkable. No intrahepatic mass or ductal dilatation is evident. The patient has had a cholecystectomy. The pancreas and spleen are normal in appearance. The adrenal glands are symmetric in size. The kidneys demonstrate symmetric uptake and excretion of contrast. No cystic mass is evident. There is no solid mass. There is no hydronephrosis. Evaluation of the stomach and bowel loops are limited due to lack of oral contrast. The appendix is not visualized however no secondary signs of appendicitis are identified. Bladder is distended. Lobulated enlarged prostate gland is noted. No free intraperitoneal fluid or air is evident. There is no significant retroperitoneal lymphadenopathy. The aorta, visceral vessels and renal arteries demonstrate normal caliber and patency. The lower thoracic and lumbar vertebrae are in normal alignment. IMPRESSION: No acute abnormality is noted in the abdomen and pelvis. Lobulated enlarged prostate gland is noted. Correlation with PSA is recommended. Review of Systems Review of Systems: All systems reviewed & are unremarkable except as noted in HPI and below Exam Narrative: GEN: Alert, not in distress. Saturation is 90% to 94% on rooom air. HEENT: pupils are equal, EOMI, symmetrical face; oral membranes moist, Mallampati II airway NECK: Trachea is midline CHEST: Equal air entry, symmetric excursion, clear breath sounds CV: Regular S1S2 no m/g/r ABD : (+) bowel sounds Extremities : no clubbing, cyanosis, or edema. No calf tenderness. PSYCH: normal thought and speech, gait is normal. Objective Data Vital Signs Vital Signs: Vital Signs - 24 hr 04/17/25 20:00 04/17/25 20:50 04/17/25 20:58 Temperature Pulse Rate 80 88 Respiratory Rate 18 18 Blood Pressure Pulse Oximetry Oxygen Delivery Room Air 04/17/25 23:36 04/18/25 01:44 04/18/25 01:54 Temperature 36.6 C Pulse Rate 99 92 96 Respiratory Rate 18 18 18 Blood Pressure 158/68 H Pulse Oximetry 93 Oxygen Delivery 04/18/25 05:43 04/18/25 07:24 04/18/25 07:27 Temperature 37.0 C Pulse Rate 91 81 81 Respiratory Rate 18 16 16 Blood Pressure 155/72 H Pulse Oximetry 92 91 Oxygen Delivery Room Air 04/18/25 07:29 04/18/25 08:00 04/18/25 11:20 Temperature 36.8 C Pulse Rate 82 Respiratory Rate 16 Blood Pressure Pulse Oximetry Oxygen Delivery Room Air Intake/Output Intake/Output: Intake & Output 04/15/25 04/16/25 04/17/25 04/18/25 23:59 23:59 23:59 23:59 Intake Total 1520 1240 Output Total 525 Balance 1520 715 Meds/Results Medications: Active Medications Generic Name Dose Route Start Last Admin Trade Name Freq PRN Reason Stop Dose Admin Amlodipine Besylate 5 mg 04/17/25 09:00 04/18/25 09:16 Amlodipine Besylate 5 Mg Tablet PO 5 mg DAILY CONNIE Administration Aspirin 81 mg 04/17/25 09:00 04/18/25 09:15 Aspirin 81 Mg Enteric Tablet PO 81 mg DAILY CONNIE Administration Atorvastatin Calcium 20 mg 04/17/25 09:00 04/18/25 09:15 Atorvastatin 20 Mg Tablet PO 20 mg DAILY CONNIE Administration Benzonatate 200 mg 04/17/25 08:37 Benzonatate 100 Mg Capsule PO Q8H PRN cough Buspirone HCl 5 mg 04/17/25 09:00 04/18/25 09:16 Buspirone Hcl 5 Mg Tablet PO 5 mg Q12HR CONNIE Administration Dextrose 12.5 gm 04/18/25 12:17 Dextrose 50% 25 Gm/50 Ml Syringe IV PUSH PRN PRN Hypoglycemia Protocol Docusate Sodium 100 mg 04/17/25 09:00 04/18/25 09:16 Docusate Sodium 100 Mg Capsule PO 100 mg BID CONNIE Administration Fluticasone Propionate 1 spray 04/17/25 09:00 04/18/25 09:17 Fluticasone Propionate 0.05% Na Spr 16 Gm Btl (*Bkc) NASAL 1 spray BID CONNIE Administration Glucagon 1 mg 04/18/25 12:17 Glucagon For Inj 1 Mg Vial IM PRN PRN Hypoglycemia Protocol Glucose 15 gm 04/18/25 12:17 Glucose Oral Gel 15 Gm Of Glucse In 37.5 Gm Tube PO PRN PRN Hypoglycemia Protocol Guaifenesin 1,200 mg 04/17/25 21:00 04/18/25 09:15 Guaifenesin 12 Hr 600 Mg Tabcr PO 1,200 mg Q12HR CONNIE Administration Sodium Chloride 1,000 mls @ 75 mls/hr 04/17/25 11:45 04/18/25 09:25 Normal Saline Iv IV CONT 75 mls/hr .[id number] CONNIE Administration Dextrose 1,000 mls @ 100 mls/hr 04/18/25 12:17 Dextrose 5% 1,000 Ml IVPB PRN PRN Hypoglycemia Protocol Insulin Aspart 2 - 5 units 04/18/25 17:00 Insulin Aspart (*Bkc) 100 Units/Ml SUB-Q TIDWM CONNIE Protocol Insulin Glargine 10 units 04/18/25 21:00 Insulin Glargine (*Bkc) 100 Units/Ml SUB-Q HS CONNIE Ipratropium [place] 0.5 mg 04/17/25 14:00 04/18/25 13:42 Ipratropium Br 0.02% Inh Soln 0.5 Mg/2.5 Ml Vial INHALATION 0.5 mg Q6HRT CONNIE Administration Levofloxacin 750 mg 04/18/25 13:00 04/18/25 12:58 Levofloxacin 750 Mg Tablet PO 04/24/25 12:59 750 mg Q48H CONNIE Administration Losartan Potassium 50 mg 04/17/25 09:00 04/18/25 09:16 Losartan Potassium 50 Mg Tablet PO 50 mg DAILY CONNIE Administration Pantoprazole Sodium 40 mg 04/17/25 13:50 04/18/25 09:16 Pantoprazole 40 Mg Tablet PO 40 mg QAM [facility] Administration Polyethylene Glycol 17 gm 04/17/25 09:00 04/18/25 09:16 Polyethylene Glycol 3350 17 Gm Powd.Pack PO 17 gm QAM [facility] Administration Prednisone 40 mg 04/18/25 08:00 04/18/25 09:15 Prednisone 20 Mg Tablet PO 40 mg DAILY@0800 [facility] Administration Tamsulosin HCl 0.4 mg 04/18/25 21:00 Tamsulosin Hcl 0.4 Mg Capsule PO [facility] Radiology Results: ITS Impressions Chest X-Ray 04/16/25 21:21 IMPRESSION: No acute pulmonary findings. Labs Labs: Laboratory Results - last 24 hr 04/17/25 04/17/25 04/18/25 19:31 23:51 05:56 WBC 16.5 H RBC 3.80 L Hgb 11.9 L Hct 34.5 L MCV 90.8 MCH 31.3 MCHC 34.5 RDW 12.8 Plt Count 273 MPV 9.3 Immature Gran % (Auto) 0.9 H Neut % (Auto) 91.6 H Lymph % (Auto) 2.8 L [place] % (Auto) 4.6 Eos % (Auto) 0.0 Baso % (Auto) 0.1 L Lymph # (Auto) 0.46 L [place] # (Auto) 0.8 H Eos # (Auto) 0.0 Baso # (Auto) 0.0 Abs Immat Gran (auto) 0.15 H Absolute Neuts (auto) 15.1 H Absolute Nucleated RBC 0.000 Nucleated RBC % 0.0 Sodium 125 L 126 L Potassium 4.1 3.9 Chloride 95 L 97 L Carbon Dioxide 20 L 21 L Anion Gap 10 8 BUN 36 H 32 H Creatinine 1.02 0.91 Estim Creat Clear Calc 43 48 Estimated GFR > 60 > 60 Glucose 192 H 184 H POC Capillary Glucose Calcium 8.8 8.5 Magnesium 2.2 Total Bilirubin 0.3 AST 28 ALT 31 Alkaline Phosphatase 113 Total Protein 6.2 L Albumin 3.3 L Urine Color Yellow Urine Appearance Clear Urine pH 5.5 Ur Specific [place] 1.025 Urine Protein Trace Urine Glucose (UA) Trace H Urine Ketones Negative Ur Blood (Man) Negative Urine Nitrate Negative Urine Bilirubin Negative Urine Urobilinogen 1.0 Leukocyte Esterase Rfl Negative Urine RBC 0-2 Urine WBC 0-5 Ur Squamous Epith Cells None seen Urine Bacteria None seen Urine Casts 3-5 04/18/25 12:43 WBC RBC Hgb Hct MCV MCH MCHC RDW Plt Count MPV Immature Gran % (Auto) Neut % (Auto) Lymph % (Auto) [place] % (Auto) Eos % (Auto) Baso % (Auto) Lymph # (Auto) [place] # (Auto) Eos # (Auto) Baso # (Auto) Abs Immat Gran (auto) Absolute Neuts (auto) Absolute Nucleated RBC Nucleated RBC % Sodium Potassium Chloride Carbon Dioxide Anion Gap BUN Creatinine Estim Creat Clear Calc Estimated GFR Glucose POC Capillary Glucose 164 H Calcium Magnesium Total Bilirubin AST ALT Alkaline Phosphatase Total Protein Albumin Urine Color Urine Appearance Urine pH Ur Specific [place] Urine Protein Urine Glucose (UA) Urine Ketones Ur Blood (Man) Urine Nitrate Urine Bilirubin Urine Urobilinogen Leukocyte Esterase Rfl Urine RBC Urine WBC Ur Squamous Epith Cells Urine Bacteria Urine Casts
[2025-04-18] MEDS: TAMSULOSIN HCL 0.4 MG CAPSULE PO (21:10)
[2025-04-18] MEDS: INSULIN GLARGINE (*BKC) 100 UNITS/ML 10 UNITS SUB-Q (21:28)
[2025-04-19] VITALS (13 sets, daily range): BP systolic 138–162; BP diastolic 53–83; PULSE 76–100; RESP 12–20; TEMP 36.2–37; O2SAT 90–94
[2025-04-19] MEDS: SODIUM CHLORIDE 0.9% IV 1,000 ML 75 ML IV CONT ×2 (01:38→17:33)
[2025-04-19] MEDS: IPRATROPIUM BR 0.02% INH SOLN 0.5 MG/2.5 ML VIAL INHALATION ×4 (03:42→20:59)
[2025-04-19 06:16] LABS: Hematocrit 38.4 % (42.0-52.0); Hemoglobin 12.9 g/dL (14.0-18.0); Immature Granulocyte Percent A 0.6 % (0-0.5); Lymphocytes Absolute Auto 0.74 K/mm3 (0.9-3.2); Mean Corpuscular HGB Conc 33.6 g/dl (32-36); Mean Corpuscular Hemoglobin 31.0 pg (26-34); Mean Corpuscular Volume 92.3 fl (80-100); Nucleated Red Blood Cells Absolute Auto 0.000 K/mm3 (0.0-0.012); Nucleated Red Blood Cells Perc 0.0 % (0.0-0.2); Platelet Count Result 266 k/mm3 (150-375); Red Blood Count 4.16 M/mm3 (4.6-6.20); White Blood Count 13.9 K/mm3 (4.5-10.0)
[2025-04-19 06:34] LABS: Alanine Aminotransferase 31 U/L (6-50); Albumin Level 3.5 g/dL (3.5-5.1); Alkaline Phosphatase 109 U/L (38-126); Anion Gap 8 mmol/L (4-12); Aspartate Amino Transferase 26 U/L (17-59); Bilirubin,Total 0.6 mg/dL (0.2-1.3); Blood Urea Nitrogen 24 mg/dL (9-20); Calcium 8.5 mg/dL (8.4-10.2); Carbon Dioxide 26 mmol/L (22-30); Chloride 94 mmol/L (98-107); Estimated CRCL calculation 50 ml/min; Estimated Glomerular Filt Rate > 60; Glucose 93 mg/dL (65-110); Magnesium 2.0 mg/dL (1.6-2.3); Potassium 4.1 mmol/L (3.4-5.0); Sodium 128 mmol/L (137-145); Total Protein 6.5 g/dL (6.3-8.2)
[2025-04-19 07:07] LABS: Thyroid Stimulating Hormone Reflex < 0.015 uIU/mL (0.465-4.68)
[2025-04-19 07:34] LABS: Hemoglobin A1C 5.8 % (<5.7)
[2025-04-19 07:51] LABS: Free T4 Free Thyroxine Reflex 2.33 ng/dL (0.78-2.19)
[2025-04-19] MEDS: DOCUSATE SODIUM 100 MG CAPSULE PO ×2 (08:29→16:04)
[2025-04-19] MEDS: LOSARTAN POTASSIUM 50 MG TABLET PO (08:29)
[2025-04-19] MEDS: guaiFENesin 12 HR 600 MG TABCR 1200 MG PO ×2 (08:30→20:50)
[2025-04-19] MEDS: ATORVASTATIN 20 MG TABLET PO (08:30)
[2025-04-19] MEDS: ASPIRIN 81 MG ENTERIC TABLET PO (08:30)
[2025-04-19] MEDS: PANTOPRAZOLE 40 MG TABLET PO (08:30)
--- NOTE | 2025-04-19 08:40 | PM.IMPN ---
Progress Note: A&P Assessment and Plan (1) Dyspnea on exertion: Code(s): R06.09 - Other forms of dyspnea Status: Acute Assessment and Plan: -the patient's chest x-ray shows no acute cardiopulmonary. -his lungs sound clear. -the patient had an echo in 11/2024 which was read as the followingTechnically suboptimal study due to poor sonographic images. 2. Definity contrast administered improved wall motion interpretation. 3. Left ventricular chamber dimension is normal. 4. Left ventricular systolic function is normal, estimated at 60-65. 5. There is mild concentric increased left ventricular wall thickness. 6. The left ventricular diastolic function is grade I diastolic dysfunction. 7. E/e' 5 is not elevated. 8. Agitated saline injection with and without valsalva maneuver which was suboptimal as bubbles not seen in right ventricle. 9. There is mild aortic valve sclerosis. 10. There is trace aortic valve regurgitation. 11. There is mild mitral valve regurgitation. 12. There is mild tricuspid valve regurgitation. 13. No pulmonary hypertension, estimated pulmonary arterial systolic pressure is 30 mmHg. 14. There is trace pulmonic regurgitation. -he had a hs/abdomen/pelvis CTA on 04/15/2025There is no pulmonary embolism, aortic dissection, pericardial fluid or thoracic aneurysm. Emphysematous changes. 13.5 mm pulmonary nodule in the left lower lobe. No acute abnormality is noted in the abdomen and pelvis. Lobulated enlarged prostate gland is noted. Correlation with PSA is recommended. -the patient may need a pulmonary function test. -patient most likely has some component of emphysema please. -continue with the breathing treatments and steroids for now. -pulmonary consultation greatly be appreciated. -cardiac enzymes are negative. -exertional dyspnea unclear. The patient has had PEs in the past but was for PEs on the most recent CTA. He is also known to have AFib and SVT in the past. The patient may benefit from a continuous rn cardiac cath. -continue with Luz Maria Thomson 04/17: Pt A&O x4 today but confused at sometimes. Daughter is at the bedside, states that this is somewhat his baseline but he has been waxing and waning. UA has not been performed to r/o UTI, Ordered today. -Pulm also saw pt today and with seeing nodules on CT, treating aggressively if it were PNA. PNA vs. scarring. IV Levaquin ordered as well as COPD exacerbation meds: prednisone, guifenesin, nebs, inhalers. -resp panel pending -cards consult pending -->May order echo depending on how sx progress/MALDONADO -[id number], will continue to trend 04/18: Started Levofloxacin per pulmonary recommendations and continued prednisone 40 mg daily 04/19: WBC fell from 16/5 --> 13.9 today, continue abx & therapy Cards & pulm consulted: 04/18 cards consult: F/u for Hx of PVST outpt, pt has established chief of safety and protection Dr. Jackson. Pt also with recent echo in November 2024, cards reviewed. Cards signing off. (2) Hyponatremia: Code(s): E87.1 - Hypo-osmolality and hyponatremia Status: Acute Assessment and Plan: Appears to be chronic, but Na 123 today, acute may be contributing to disorientation today -IVF NS ordered -Repeat BMP this evening -May consider fluid restriction and/or Na supplement if does not rise -Pending cards consult to r/u other potential risk factors -Kidneys function WDL for age -10/18: Improved to 126 with hydration; baseline is 127-133; ordered TSH, FENa 04/19: Na improved to 128 today, continue hydration, & daily labs. TSH low at <0.015, t4 high at 2.23 today -Started propranolol 10mg TID as well as methimazole 5mg daily, pt will need to f/u outpatient with an solar energy advisor (3) Dementia: Code(s): F03.90 - Unspecified dementia, unspecified severity, without behavioral disturbance, psychotic disturbance, mood disturbance, and anxiety Status: Acute Assessment and Plan: No officially established but likely dx Ordered lab evaluation 04/1801/22/25 CT Brain: The ventricles are enlarged. The dilatation of the ventricles is proportional to the degree of sulcal prominence, not uncommon in the senescent brain. Decreased attenuation is identified within the periventricular white matter, likely secondary to microvascular ischemic disease, in a patient of this age. There is no mass, mass effect or midline shift. There is no abnormal extra-axial fluid collection or intracranial hemorrhage. Visualized paranasal sinuses are clear. The mastoid air cells are well aerated. No acute displaced fractures within the overlying cranium. Impression: No acute intracranial hemorrhage or suspicious mass effect. 04/19: -Neurological exam yielding no abnormalities. A&O x3 today, no disorientation upon my exam. -Daughter, Josiane, at the bedside today with grave concerns for a stroke, due to his AM and PM agitation and confusion. We had a thorough discussion of dementia vs acute stroke and treatment for both. Daughter insisting on brain MRI to r/o stroke because she is concerned that her dad will not be able to go back to his residence due to his memory / behavioral issues. MRI stroke ordered, may decide to get neuro involved depending on MRI results. -Daughter also reporting that pt has not had any sleep since here and is wondering if we could try melatonin at night time, will order (4) Benign prostatic hyperplasia: Code(s): N40.0 - Benign prostatic hyperplasia without lower urinary tract symptoms Status: Acute Assessment and Plan: 04/18 started tamsulosin (5) Hyperglycemia: Code(s): R73.9 - Hyperglycemia, unspecified Status: Acute Assessment and Plan: 04/18: Likely due to steroids with possible impaired glucose tolerance, A1c orderd 04/19: A1c, 5.8, appropriate for age (6) Anxiety: Code(s): F41.9 - Anxiety disorder, unspecified Status: Acute Assessment and Plan: -continue with buspirone (7) Depression: Code(s): F32.A - Depression, unspecified Status: Acute Assessment and Plan: -continue buspirone (8) Hypertension: Code(s): I10 - Essential (primary) hypertension Status: Acute Assessment and Plan: -continue losartan -daily BMP -continue with amlodipine 04/19: BP mildly more elevated today, will continue to monitor. Can also increase losartan dose if needed if persistent -Also starting propranolol for hyperthyroid today, this may help decrease BP some (9) Hyperlipidemia: Code(s): E78.5 - Hyperlipidemia, unspecified Status: Chronic Assessment and Plan: -continue with atorvastatin can continue to monitor liver enzymes (10) COPD (chronic obstructive pulmonary disease): Code(s): J44.9 - Chronic obstructive pulmonary disease, unspecified Status: Acute Assessment and Plan: See MALDONADO above (11) Hyperthyroidism without thyroid nodule: Code(s): E05.90 - Thyrotoxicosis, unspecified without thyrotoxic crisis or storm Status: Acute Assessment and Plan: Andrade TSH due to hyponatremia TSH low at <0.015, t4 high at 2.23 today, pending t3 -Started propranolol 10mg TID as well as methimazole 5mg daily, pt will need to f/u outpatient with an solar energy advisor Plan Pending brain MRI, potential neuro consult, hyperthyroid management Time Spent With Patient Time: 60 minutes Subjective Date/time seen: 04/19/25 1057 Interval history: Daughter, Josiane, at the bedside today upon my arrival to the pt room. Pt resting comfortably in bed. Pt continues to be oriented for me, but seems forgetful. Denies pain as well as SOB/CP. Pt does report having some issues sleeping while here at the hospital. Review of Systems Review of Systems: All systems reviewed & are unremarkable except as noted in HPI and below Constitutional: Constitutional: Reports as per HPI and Reports no additional constitutional complaints Eyes: Eyes: Reports as per HPI and Reports no additional eye complaints ENT: Reports system reviewed and no additional complaints, except as documented and Reports Normal hearing present Cardiovascular: Cardiovascular: Reports no additional cardiovascular complaints Respiratory: Respiratory: Reports as per HPI and Reports no additional respiratory complaints Gastrointestinal: Gastrointestinal: Reports as per HPI and Reports no additional gastrointestinal complaints Musculoskeletal: Musculoskeletal: Reports no additional musculoskeletal complaints Integumentary/Breasts: Skin/Breast: Reports system reviewed and no additional complaints, except as docu Neurologic: Reports system reviewed and no additional complaints, except as documented and Reports Normal hearing present Psychiatric: Psychiatric: Reports no additional psychiatric complaints and Reports as per HPI Hematologic/Lymphatic: Hematologic/Lymphatic: Reports no additional hematologic/lymphatic complaints Allergic/Immunologic: Allergic/Immunologic: Reports no additional allergic/immunologic complaints Exam Const: General: cooperative, healthy appearing, comfortable, no acute distress, well developed, awake, Physically active, average body habitus and well nourished Nutritional Appearance: average body habitus and well nourished Orientation/consciousness: oriented to person and patient oriented x3 HENMT: Head: normal to inspection, No palpable skull fracture present, normocephalic, atraumatic and abrasion Eyes: General: appearance normal, both eyes and all related structures Alignment and Position: alignment normal Periorbital: periorbital findings normal Neck: Neck: normal visual inspection and full ROM Chest: Chest palpation & inspection: normal inspection of the chest Resp: Effort & Inspection: normal respiratory effort Auscultation: clear to auscultation bilaterally Cardio: Palpation: normal PMI Rate: regular rate Rhythm: regular rhythm Heart sounds: S1 normal heart sound present and S2 normal heart sound present Peripheral pulses: Peripheral pulses 2+ throughout GI: Inspection: normal to inspection Auscultation: normal bowel sounds Rectal Exam: deferred : General: Yes no CVA tenderness Back/Spine/Pelvis: Back: no CVA tenderness Cervical Spine: cervical ROM normal Skin: General skin exam: normal color Lesions: no lesions Rashes: no rashes Trauma: no lacerations or abrasions Wounds: no wounds Neuro: General: oriented to person and patient oriented x3 Cranial nerves: Yes Normal hearing present Other: forgetful, unsure why he is in the hospital. A&O x3 Extrem: General: normal to inspection Right upper extremity: normal to inspection and shoulder/upper arm Left upper extremity: normal to inspection and shoulder/upper arm Right lower extremity: normal to inspection Left lower extremity: normal to inspection Psych: Appearance: grossly normal Mental Status: mental status grossly normal Speech and movement: Normal speech and movement present Affect: normal affect Objective Data Vital Signs Vital Signs: Vital Signs - 24 hr 04/18/25 11:20 04/18/25 13:41 04/18/25 13:45 Temperature 98.2 F Pulse Rate 91 91 Respiratory Rate 16 16 Blood Pressure Pulse Oximetry Oxygen Delivery 04/18/25 14:00 04/18/25 21:14 04/18/25 21:35 Temperature 98.8 F 98.1 F Pulse Rate 97 100 Respiratory Rate 18 16 Blood Pressure 177/61 H 153/83 H Pulse Oximetry 90 93 Oxygen Delivery Room Air 04/18/25 22:42 04/18/25 22:42 04/18/25 22:47 Temperature Pulse Rate 102 H 104 H Respiratory Rate 18 18 Blood Pressure Pulse Oximetry 91 Oxygen Delivery Room Air 04/19/25 03:43 04/19/25 03:48 04/19/25 05:13 Temperature 98.6 F Pulse Rate 97 98 100 Respiratory Rate 18 18 16 Blood Pressure 162/83 H Pulse Oximetry 91 Oxygen Delivery 04/19/25 07:24 04/19/25 07:30 Temperature Pulse Rate 97 97 Respiratory Rate 18 18 Blood Pressure Pulse Oximetry Oxygen Delivery Intake/Output Intake/Output: Intake & Output 04/16/25 04/17/25 04/18/25 04/19/25 23:59 23:59 23:59 23:59 Intake Total 1520 2820 1000 Output Total 1200 Balance 1520 1620 1000 Meds/Results Medications: Active Medications Generic Name Dose Route Start Last Admin Trade Name Freq PRN Reason Stop Dose Admin Amlodipine Besylate 5 mg 04/17/25 09:00 04/19/25 08:29 Amlodipine Besylate 5 Mg Tablet PO 5 mg DAILY CONNIE Administration Aspirin 81 mg 04/17/25 09:00 04/19/25 08:30 Aspirin 81 Mg Enteric Tablet PO 81 mg DAILY CONNIE Administration Atorvastatin Calcium 20 mg 04/17/25 09:00 04/19/25 08:30 Atorvastatin 20 Mg Tablet PO 20 mg DAILY CONNIE Administration Benzonatate 200 mg 04/17/25 08:37 Benzonatate 100 Mg Capsule PO Q8H PRN cough Buspirone HCl 5 mg 04/17/25 09:00 04/19/25 08:30 Buspirone Hcl 5 Mg Tablet PO 5 mg Q12HR CONNIE Administration Dextrose 12.5 gm 04/18/25 12:17 Dextrose 50% 25 Gm/50 Ml Syringe IV PUSH PRN PRN Hypoglycemia Protocol Docusate Sodium 100 mg 04/17/25 09:00 04/19/25 08:29 Docusate Sodium 100 Mg Capsule PO 100 mg BID CONNIE Administration Fluticasone Propionate 1 spray 04/17/25 09:00 04/18/25 16:05 Fluticasone Propionate 0.05% Na Spr 16 Gm Btl (*Bkc) NASAL 1 spray BID CONNIE Administration Glucagon 1 mg 04/18/25 12:17 Glucagon For Inj 1 Mg Vial IM PRN PRN Hypoglycemia Protocol Glucose 15 gm 04/18/25 12:17 Glucose Oral Gel 15 Gm Of Glucse In 37.5 Gm Tube PO PRN PRN Hypoglycemia Protocol Guaifenesin 1,200 mg 04/17/25 21:00 04/19/25 08:30 Guaifenesin 12 Hr 600 Mg Tabcr PO 1,200 mg Q12HR CONNIE Administration Sodium Chloride 1,000 mls @ 75 mls/hr 04/17/25 11:45 04/19/25 01:38 Normal Saline Iv IV CONT 75 mls/hr .[id number] CONNIE Administration Dextrose 1,000 mls @ 100 mls/hr 04/18/25 12:17 Dextrose 5% 1,000 Ml IVPB PRN PRN Hypoglycemia Protocol Insulin Aspart 2 - 5 units 04/18/25 17:00 04/19/25 08:05 Insulin Aspart (*Bkc) 100 Units/Ml SUB-Q Not Given TIDWM CONNIE Protocol Insulin Glargine 10 units 04/18/25 21:00 04/18/25 21:28 Insulin Glargine (*Bkc) 100 Units/Ml SUB-Q 10 units HS CONNIE Administration Ipratropium [place] 0.5 mg 04/17/25 14:00 04/19/25 07:26 Ipratropium Br 0.02% Inh Soln 0.5 Mg/2.5 Ml Vial INHALATION 0.5 mg Q6HRT CONNIE Administration Levofloxacin 750 mg 04/18/25 13:00 04/18/25 12:58 Levofloxacin 750 Mg Tablet PO 04/24/25 12:59 750 mg Q48H CONNIE Administration Losartan Potassium 50 mg 04/17/25 09:00 04/19/25 08:29 Losartan Potassium 50 Mg Tablet PO 50 mg DAILY CONNIE Administration Pantoprazole Sodium 40 mg 04/17/25 13:50 04/19/25 08:30 Pantoprazole 40 Mg Tablet PO 40 mg QAM CONNIE Administration Polyethylene Glycol 17 gm 04/17/25 09:00 04/19/25 08:30 Polyethylene Glycol 3350 17 Gm Powd.Pack PO 17 gm QAM CONNIE Administration Prednisone 40 mg 04/18/25 08:00 04/19/25 08:29 Prednisone 20 Mg Tablet PO 40 mg DAILY@0800 CONNIE Administration Tamsulosin HCl 0.4 mg 04/18/25 21:00 04/18/25 21:10 Tamsulosin Hcl 0.4 Mg Capsule PO 0.4 mg HS CONNIE Administration Radiology Results: ITS Impressions Chest X-Ray 04/16/25 21:21 IMPRESSION: No acute pulmonary findings. Labs Labs: Laboratory Results - last 24 hr 04/17/25 04/17/25 04/18/25 12:21 23:48 12:43 WBC RBC Hgb Hct MCV MCH MCHC RDW Plt Count MPV Immature Gran % (Auto) Neut % (Auto) Lymph % (Auto) [place] % (Auto) Eos % (Auto) Baso % (Auto) Lymph # (Auto) [place] # (Auto) Eos # (Auto) Baso # (Auto) Abs Immat Gran (auto) Absolute Neuts (auto) Absolute Nucleated RBC Nucleated RBC % Sodium Potassium Chloride Carbon Dioxide Anion Gap BUN Creatinine Estim Creat Clear Calc Estimated GFR Glucose POC Capillary Glucose 164 H Hemoglobin A1c Calcium Magnesium Total Bilirubin AST ALT Alkaline Phosphatase Total Protein Albumin TSH (Reflex) Free T4 Ur Random Sodium 15 Urine Creatinine 123.1 Chlamy pneumoniae PCR Not detected Adenovirus (PCR) Not detected B. pertussis DNA (PCR) Not detected B.parapertussis DNA PCR Not detected Coronavirus OC43 (PCR) Not detected Coronavirus HKU1 (PCR) Not detected Coronavirus 229E (PCR) Not detected Coronavirus NL63 (PCR) Not detected Human Metapneumovir PCR Not detected Influenza A (H1) PCR Not detected Influ A (H1/09) PCR Not detected Influenza A (H3) PCR Not detected Influenza Type A (PCR) Not detected Influenza Type B (PCR) Not detected M. pneumoniae (PCR) Not detected Parainfluenza 1 (PCR) Not detected Parainfluenza 2 (PCR) Not detected Parainfluenza 3 (PCR) Not detected Parainfluenza 4 (PCR) Not detected RSV (PCR) Not detected Entero/Rhino (PCR) Detected A SARS-CoV-2 (PCR) Not detected 04/18/25 04/18/25 04/19/25 16:16 21:18 05:13 WBC 13.9 H RBC 4.16 L Hgb 12.9 L Hct 38.4 L MCV 92.3 MCH 31.0 MCHC 33.6 RDW 12.9 Plt Count 266 MPV 9.2 Immature Gran % (Auto) 0.6 H Neut % (Auto) 87.7 H Lymph % (Auto) 5.3 L [place] % (Auto) 6.1 Eos % (Auto) 0.1 Baso % (Auto) 0.2 Lymph # (Auto) 0.74 L [place] # (Auto) 0.9 H Eos # (Auto) 0.0 Baso # (Auto) 0.0 Abs Immat Gran (auto) 0.08 H Absolute Neuts (auto) 12.1 H Absolute Nucleated RBC 0.000 Nucleated RBC % 0.0 Sodium 128 L Potassium 4.1 Chloride 94 L Carbon Dioxide 26 Anion Gap 8 BUN 24 H Creatinine 0.88 Estim Creat Clear Calc 50 Estimated GFR > 60 Glucose 93 POC Capillary Glucose 170 H 148 H Hemoglobin A1c 5.8 H Calcium 8.5 Magnesium 2.0 Total Bilirubin 0.6 AST 26 ALT 31 Alkaline Phosphatase 109 Total Protein 6.5 Albumin 3.5 TSH (Reflex) < 0.015 L Free T4 2.33 H Ur Random Sodium Urine Creatinine Chlamy pneumoniae PCR Adenovirus (PCR) B. pertussis DNA (PCR) B.parapertussis DNA PCR Coronavirus OC43 (PCR) Coronavirus HKU1 (PCR) Coronavirus 229E (PCR) Coronavirus NL63 (PCR) Human Metapneumovir PCR Influenza A (H1) PCR Influ A () PCR Influenza A (H3) PCR Influenza Type A (PCR) Influenza Type B (PCR) M. pneumoniae (PCR) Parainfluenza 1 (PCR) Parainfluenza 2 (PCR) Parainfluenza 3 (PCR) Parainfluenza 4 (PCR) RSV (PCR) Entero/Rhino (PCR) SARS-CoV-2 (PCR) 04/19/25 08:05 WBC RBC Hgb Hct MCV MCH MCHC RDW Plt Count MPV Immature Gran % (Auto) Neut % (Auto) Lymph % (Auto) [place] % (Auto) Eos % (Auto) Baso % (Auto) Lymph # (Auto) [place] # (Auto) Eos # (Auto) Baso # (Auto) Abs Immat Gran (auto) Absolute Neuts (auto) Absolute Nucleated RBC Nucleated RBC % Sodium Potassium Chloride Carbon Dioxide Anion Gap BUN Creatinine Estim Creat Clear Calc Estimated GFR Glucose POC Capillary Glucose 100 Hemoglobin A1c Calcium Magnesium Total Bilirubin AST ALT Alkaline Phosphatase Total Protein Albumin TSH (Reflex) Free T4 Ur Random Sodium Urine Creatinine Chlamy pneumoniae PCR Adenovirus (PCR) B. pertussis DNA (PCR) B.parapertussis DNA PCR Coronavirus OC43 (PCR) Coronavirus HKU1 (PCR) Coronavirus 229E (PCR) Coronavirus NL63 (PCR) Human Metapneumovir PCR Influenza A (H1) PCR Influ A () PCR Influenza A (H3) PCR Influenza Type A (PCR) Influenza Type B (PCR) M. pneumoniae (PCR) Parainfluenza 1 (PCR) Parainfluenza 2 (PCR) Parainfluenza 3 (PCR) Parainfluenza 4 (PCR) RSV (PCR) Entero/Rhino (PCR) SARS-CoV-2 (PCR) Quality VTE Prophylaxis VTE prophylaxis: mechanical ordered
[2025-04-19] MEDS: FLUTICASONE PROPIONATE 0.05% NA SPR 16 GM BTL (*BKC) 1 SPRAY NASAL ×2 (09:05→16:04)
--- NOTE | 2025-04-19 12:56 | P.PNPL_ITS ---
Progress Note: A&P Assessment and Plan (1) Acute exacerbation of chronic obstructive pulmonary disease: Code(s): J44.1 - Chronic obstructive pulmonary disease with (acute) exacerbation Status: Acute Assessment and Plan: 04/17; He has diffuse bullous emphysema, smoked from [id number] at half a pack a day for total of 27 pack years. Patient states that he does walk with a walker and has shortness of breath that limits him. He is not on any oxygen. I have no PFTs. For CT scan on 12/31/2002 in our system shows bullous emphysema in the report. CT angiogram of the chest on 04/15/2025 shows moderate apical predominant centrilobular emphysema right apical scarring, right upper lobe ground-glass infiltrate and left lower lobe 9.7 times 13.4 mm nodule with surrounding infiltrate. ABG on 04/15 on room air 7.49/57. Patient is maintained on Breo Ellipta and p.r.n. albuterol. He is not on home oxygen. 04/15/25: White blood cell count 13.3, eosinophils 0.4% equals 53 per micro L patient is unable to give me a reliable history but states he has been short of breath for 3 days. He presented to the emergency room on 04/15, and had a CT angiogram of the chest with no pulmonary embolism, moderate apical predominant centrilobular emphysema right upper lobe ground-glass infiltrate and left lower lobe nodule. ABG on room air 7.49/. Patient was treated for COPD exacerbation with bronchodilators and steroids. Patient re-presented to the emergency room on 04/16 with a white blood cell count 21.1, creatinine 1.05 and was admitted to the hospital. COVID, influenza, RSV RT PCR assay negative. 04/17/2025; Patient tells me he has no rest shortness of breath, his dyspnea on exertion is the same as yesterday. He denies fever, chills, rigors, phlegm production or hemoptysis. he is on room air with saturations 94%. He is afebrile. White blood cell count 18.0, creatinine 1.01. no wheezing on exam. he complains his phlegm does get stuck in his throat. Plan: I will treat patient for COPD exacerbation. He was started on Solu- Medrol and is currently on 60 mg IV q.6 hours, last dose at 9:37 a.m. this morning. He has no wheezing. I will discontinue Solu-Medrol place him on prednisone 40 starting tomorrow. He was placed on Advair 115-21 at 2 puffs q.12 hours. I will discontinue Advair and place him on ipratropium nebulizers Q 6 hours only as there is a possibility of an SVT last night. Patient has no infectious complaints but does have nodules with infiltrate and I will treat him with Levaquin 750 mg p.o. Q 48 hours for 7 days for creatinine clearance of 44. I will send a respiratory pathogen panel looking for etiology of a possible exacerbation. He complains phlegm it is getting stuck in his throat and I will place him on guaifenesin 1200 mg p.o. b.i.d. and also initiate a Cornet flutter valve. 04/18; no change in his current treatment regimen. I discussed his care with Dr Samuels and his daughter, Josiane. I spoke with her about encouraging jordan to drink enough fluids to loose secretions to improve expectoration. 04/19; same medication regimen. (2) Lung nodule: Code(s): R91.1 - Solitary pulmonary nodule Status: Acute Assessment and Plan: He has 13.5 x 9.7 mm pulmonary nodule in the left lower lobe, subpleural reticulations in the lung bases posteriorly, may be early pulmonary fibrosis. We will discuss urther work up when he is an out patient. This is an outpatient issue. He may benefit from chest CT or PET scan in 3 months after discharge. (3) Shortness of breath: Code(s): R06.02 - Shortness of breath Status: Acute Assessment and Plan: He is very short of breath with minimal exertion, worse this admission compared to baseline. ABG on admission on room air = pH 7.48, pCO2 29, pO2 57, HCO3 21, sat 89.7%. (4) History of tobacco use: Code(s): Z87.891 - Personal history of nicotine dependence Status: Acute Assessment and Plan: He has a 27 pack year history of tobacco, [id number] at half a pack a day, none x 2005. Plan plan: 1) No changes in his care at this time. Continue same medications -->oral Levaquin, po prednisone, guaifenesin, Tessalon perles/benzonatate, nebulized ipratropium. He is not on a beta agonist because he has atrial fibrillation, albuterol may aggravate his dysrhythmia. At home he was using Breo, LABA and ICS, and albuterol as a p.r.n. inhaler. 2) His saturation is sustained at 91%. His pO2 was 58 on admission on room air. I will order an echo with bubble study to look for PFO, patent foramen ova le, as a cause for deep drops in his saturation with exertion. I will order an overnight oxygen study on room air to determine if he needs nocturnal O2. Add O2 @ 2L with exertion. He will need a walk study prior to discharge. He may need O2 with exertion. At home, he desaturated as low as 83% after walking and resting. This is common for COPD patients. His oximeter at [facility] shows a normal value while moving, but when stopping, resting, the desaturation can be delayed. I will order an alpha-1 antitrypsin genotype. I will not order an alpha-1 serum level as these can increase in acute illness, appear normal. 3) Daughter Roseanne requests nebulizer at discharge. This is a device that can deliver the same classes of medications that he receives now, although a nebulizer may improve distribution compared to inhalation from an inhaler. He was on Breo prior to this admission, with an office visit that planned to switch him to a triple inhaler, Breztri, not initiated due to cost. 4) As an outpatient, he will come for an initial office visit in 2-3 weeks, see how he feels after recovering from this acute exacerbation of COPD, see if meds need to be adjusted; we will address his pulmonary nodule as this may represent a malignancy. Plan for out patient PFT, 6 Minute Walk when he is stable at baseline, and plan to refer to pulmonary rehab. This is to increase strength, balance, endurance, and quality of life, if he wants to do it and if someone can take him twice a week. We will discuss work up of his LLL nodule. He is almost 89, has dementia, not sure of he could tolerate a PET scan or even performing PFTs. I spoke with Brennon today, reviewed CT scan, labs, recommended that they contact a knot cutter if they want more detailed out patient care for their 89 year old father. I think that he has functioned well given his age, medical co- morbidities, untreated dementia. They are hesitant to agree that he has dementia, and remind me that he has a third grade education, is illiterate, and this may impact his evaluation of dementia. Dementia tests are not dependent on level of literacy. The questions can be read to the patient, and he is able to use a pencil to draw a clock or connect letters / numbers. His hyperthyroidism is being addressed today, and he can follow up with an tv host if needed after discharge. Subjective Date/time seen: 04/19/25 12:56 Interval history: 04/17/2025: This is a new pulmonary consult for COPD exacerbation and lung nodules. 89-year-old with a history of dementia, atrial fibrillation and COPD. Patient has dementia. He misspelled his last name, does not know the place or year and does not know the jockey agent. I spoke to the daughter and she says he is more confused since he is been in the hospital. Regarding his COPD: Patient smoked from 9685-2774 at half a pack a day for total of 27 pack years. Patient states that he does walk with a walker and has shortness of breath that limits him. He is not on any oxygen. I have no PFTs. For CT scan on 12/31/2002 in our system shows bullous emphysema in the report. CT angiogram of the chest on 04/15/2025 shows moderate apical predominant centrilobular emphysema right apical scarring, right upper lobe ground-glass infiltrate and left lower lobe 9.7 times 13.4 mm nodule with surrounding infiltrate. Patient is maintained on Breo Ellipta and p.r.n. albuterol. He is not on home oxygen. patient is unable to give me a reliable history but states he has been short of breath for 3 days. He presented to the emergency room on 04/15, and had a CT angiogram of the chest with no pulmonary embolism, moderate apical predominant centrilobular emphysema right upper lobe ground-glass infiltrate and left lower lobe nodule. ABG on room air 7.49//57. Patient was treated for COPD exacerbation with bronchodilators and steroids. Patient re-presented to the emergency room on 04/16 with a white blood cell count 21.1, creatinine 1.05 and was admitted to the hospital. 04/17/2025; Patient tells me he has no rest shortness of breath, his dyspnea on exertion is the same as yesterday. He denies fever, chills, rigors, phlegm production or hemoptysis. he is on room air with saturations 94%. He is afebrile. White blood cell count 18.0, creatinine 1.01. no wheezing on exam. 04/18/2025; 14:45 time of visit; patient is seen in follow up for COPD exacerbation and a pulmonary nodule 13.5 mm in the left lower lobe. He is on room air, sat is 90-94%. WBC is lower, 16.5k, 18k yesterday, 21.1k on admission with creatinine 1.01. He is on po Levaquin #1, prednisone 40 mg, guaifenesin, nebs, inhalers. His daughter Josiane is present, and I discussed her father's condition, showed her imaging, answered questions. She provided additional formation about his health. He has lived at [facility] for 2 months, after being in the hospital over the summer with poor breathing, dizziness, a minimal fall which his daughter said was due to dizziness on standing, tried to sit, slid to floor. He is angry and forgetful, all this is new. He had a headache today. He does not usually get headaches. She said that he has problems with abdominal symptoms, not all the time. Abdominal distention can cause difficulty breathing if abdominal distention is present. A large abdomen can prevent emphysematous lungs from fully expanding. No family history of lung cancer. Most of his relatives with heart disease, late in life, except for a brother who in his 40s from a stroke. The patient is one of 6 children. The patient is now getting out patient rehab for falls. He has never had PFTS, is on Breo and albuterol prescribed by his primary, and the staff at [facility] helps him with his inhaler. He has lots of sinus problems, sneezes often, constant dry cough, blames it on moving here, [place] in [place], [place]. He returned to [place] in 2021. His second 8+ years ago, he had no help, bought a house and was living alone before he went to assisted Living. He quit tobacco 10-15 years ago, new did not allow it. She 8-10 years ago. Today, he still has a cough, is using Cornet valve with good technique. He is using it on the 4th setting. This will eventually help clear secretions, and he can use it at home. He has mostly normal eosinophils on review of his labs, had a count of 400 in December 2024. Review of chest CT shows subpleural reticulations and a LLL nodule 13.5 x 9.7 mm. 04/19; Patient is seen at 13:15; Saturation is 91% on room air. Extended spectrum respiratory panel is positive for Entero / rhino virus. This may or may not be the cause of his exacerbation. There is no specific treatment for the common cold virus. He has been moved to room 301 in order to have a private room. Daughters are here, Josiane and Roseanne. He is in a pleasant mood, although his daughter s told me that he was angry this morning with the staff. They are worried that he has mental changes that are irreversible, and they are concerned that if he does not improve, [facility] will not take him at discharge. He has dementia that was diagnosed at least 5 years ago, per his daughters, when he was seen by Dr Sandoval when their brother was taking the patient for visits. He has not been treated for this. His acute fluctuating mentation this admission is consistent with delirium. His thyroid panel shows hyperthyroidism, discussed with Naty Granados DANCING MASTER. His CAT was 04/15, with contrast. His thyroid testing was obtained today, extremely low TSH < 0.015 which may be spuriously low due to the contrast on 04/15. His TSH was also low December 21, 0.260. Even if contrast on Apr 15 lowered TSH, it has been low. His free T4 is high, 2.33, was normal December 21, 2024 at 1.48. Naty Granaods is going to address with methimazole, and his prednisone that he is taking for COPD is helping. I would not recommend starting a beta-zo because he is in the hospital with a COPD exacerbation and a beta-zo may make his COPD worse. Blood pressure has been 150s over 80s and pulse is been mainly under 100 so he does not have excessive adrenergic vital signs. Patient said this his breathing feels better, he is using his Cornet valve. Daughters tell me that he is short of breath even walking to the bathroom. He does not have chest pain. He is able to cough and get sputum up more easily than yesterday. He is not expectorating sputum, so the color is unknown. I showed them the chest CT, nodule, emphysematous changes and early fibrosis in the bases. DATA: CTA chest PE abdomen pel HISTORY:Shortness of breath evaluate for PE, abdominal pain. COMPARISON: None. TECHNIQUE: Following the noncontrasted general manager in training, axial images of the thorax were obtained following infusion of 100 cc of Isovue 370. Post-processing on an independent workstation was performed to reconstruct MIP images for evaluation of the thoracic vasculature. FINDINGS: There is no pulmonary embolism, aortic dissection, thoracic aneurysm or pericardial fluid. Diffuse centrilobular emphysema noted. There is a 13.5 x 9.7 mm pulmonary nodule in the left lower lobe. Subpleural reticulation are noted. There is a intrafissural nodule within the right middle lobe measuring 5 mm. No pleural effusion or pneumothorax is noted. There is no axillary, mediastinal or hilar adenopathy. Review of bone windows demonstrates no osteoblastic or lytic lesions. IMPRESSION: There is no pulmonary embolism, aortic dissection, pericardial fluid or thoracic aneurysm. Emphysematous changes. 13.5 mm pulmonary nodule in the left lower lobe. CTA chest PE abdomen pel INDICATION:Shortness of breath evaluate for PE, abdominal rosy . COMPARISON: None. TECHNIQUE: Axial images of the abdomen and pelvis were obtained following infusion of 100 mL Isovue 370. Dose optimization technique was utilized. FINDINGS: The liver parenchyma is unremarkable. No intrahepatic mass or ductal dilatation is evident. The patient has had a cholecystectomy. The pancreas and spleen are normal in appearance. The adrenal glands are symmetric in size. The kidneys demonstrate symmetric uptake and excretion of contrast. No cystic mass is evident. There is no solid mass. There is no hydronephrosis. Evaluation of the stomach and bowel loops are limited due to lack of oral contrast. The appendix is not visualized however no secondary signs of appendicitis are identified. Bladder is distended. Lobulated enlarged prostate gland is noted. No free intraperitoneal fluid or air is evident. There is no significant retroperitoneal lymphadenopathy. The aorta, visceral vessels and renal arteries demonstrate normal caliber and pa tency. The lower thoracic and lumbar vertebrae are in normal alignment. IMPRESSION: No acute abnormality is noted in the abdomen and pelvis. Lobulated enlarged prostate gland is noted. Correlation with PSA is recommended. Review of Systems Review of Systems: He was hostile earlier this morning to the staff. This is what hi daughters told me. All systems reviewed & are unremarkable except as noted in HPI and below Exam Narrative: GEN: Alert, not in distress. Saturation is 91% on room air. NECK: Trachea is midline CHEST: Hyperinflated chest, equal air entry, symmetric excursion, clear breath sounds CV: Regular S1S2 no m/g/r ABD : (+) bowel sounds Extremities : no clubbing, cyanosis, or edema. No calf tenderness. PSYCH: normal thought and speech, gait is not tested Objective Data Vital Signs Vital Signs: Vital Signs - 24 hr 04/18/25 13:41 04/18/25 13:45 04/18/25 14:00 Temperature 37.1 C Pulse Rate 91 91 97 Respiratory Rate 16 16 18 Blood Pressure 177/61 H Pulse Oximetry 90 Oxygen Delivery 04/18/25 21:14 04/18/25 21:35 04/18/25 22:42 Temperature 36.7 C Pulse Rate 100 Respiratory Rate 16 Blood Pressure 153/83 H Pulse Oximetry 93 91 Oxygen Delivery Room Air Room Air 04/18/25 22:42 04/18/25 22:47 04/19/25 03:43 Temperature Pulse Rate 102 H 104 H 97 Respiratory Rate 18 18 18 Blood Pressure Pulse Oximetry Oxygen Delivery 04/19/25 03:48 04/19/25 05:13 04/19/25 07:24 Temperature 37.0 C Pulse Rate 98 100 97 Respiratory Rate 18 16 18 Blood Pressure 162/83 H Pulse Oximetry 91 Oxygen Delivery 04/19/25 07:30 Temperature Pulse Rate 97 Respiratory Rate 18 Blood Pressure Pulse Oximetry Oxygen Delivery Intake/Output Intake/Output: Intake & Output 04/16/25 04/17/25 04/18/25 04/19/25 23:59 23:59 23:59 23:59 Intake Total 1520 2820 1000 Output Total 1200 Balance 1520 1620 1000 Meds/Results Medications: Active Medications Generic Name Dose Route Start Last Admin Trade Name Freq PRN Reason Stop Dose Admin Amlodipine Besylate 5 mg 04/17/25 09:00 04/19/25 08:29 Amlodipine Besylate 5 Mg Tablet PO 5 mg DAILY CONNIE Administration Aspirin 81 mg 04/17/25 09:00 04/19/25 08:30 Aspirin 81 Mg Enteric Tablet PO 81 mg DAILY CONNIE Administration Atorvastatin Calcium 20 mg 04/17/25 09:00 04/19/25 08:30 Atorvastatin 20 Mg Tablet PO 20 mg DAILY CONNIE Administration Benzonatate 200 mg 04/17/25 08:37 Benzonatate 100 Mg Capsule PO Q8H PRN cough Buspirone HCl 5 mg 04/17/25 09:00 04/19/25 08:30 Buspirone Hcl 5 Mg Tablet PO 5 mg Q12HR CONNIE Administration Dextrose 12.5 gm 04/18/25 12:17 Dextrose 50% 25 Gm/50 Ml Syringe IV PUSH PRN PRN Hypoglycemia Protocol Docusate Sodium 100 mg 04/17/25 09:00 04/19/25 08:29 Docusate Sodium 100 Mg Capsule PO 100 mg BID CONNIE Administration Fluticasone Propionate 1 spray 04/17/25 09:00 04/19/25 09:05 Fluticasone Propionate 0.05% Na Spr 16 Gm Btl (*Bkc) NASAL 1 spray BID CONNIE Administration Glucagon 1 mg 04/18/25 12:17 Glucagon For Inj 1 Mg Vial IM PRN PRN Hypoglycemia Protocol Glucose 15 gm 04/18/25 12:17 Glucose Oral Gel 15 Gm Of Glucse In 37.5 Gm Tube PO PRN PRN Hypoglycemia Protocol Guaifenesin 1,200 mg 04/17/25 21:00 04/19/25 08:30 Guaifenesin 12 Hr 600 Mg Tabcr PO 1,200 mg Q12HR CONNIE Administration Sodium Chloride 1,000 mls @ 75 mls/hr 04/17/25 11:45 04/19/25 01:38 Normal Saline Iv IV CONT 75 mls/hr .[id number] CONNIE Administration Dextrose 1,000 mls @ 100 mls/hr 04/18/25 12:17 Dextrose 5% 1,000 Ml IVPB PRN PRN Hypoglycemia Protocol Insulin Aspart 2 - 5 units 04/18/25 17:00 04/19/25 11:35 Insulin Aspart (*Bkc) 100 Units/Ml SUB-Q Not Given TIDWM CONNIE Protocol Insulin Glargine 10 units 04/18/25 21:00 04/18/25 21:28 Insulin Glargine (*Bkc) 100 Units/Ml SUB-Q 10 units HS CONNIE Administration Ipratropium Matt[place] 0.5 mg 04/17/25 14:00 04/19/25 07:26 Ipratropium Br 0.02% Inh Soln 0.5 Mg/2.5 Ml Vial INHALATION 0.5 mg Q6HRT CONNIE Administration Levofloxacin 750 mg 04/18/25 13:00 04/18/25 12:58 Levofloxacin 750 Mg Tablet PO 04/24/25 12:59 750 mg Q48H CONNIE Administration Losartan Potassium 50 mg 04/17/25 09:00 04/19/25 08:29 Losartan Potassium 50 Mg Tablet PO 50 mg DAILY CONNIE Administration Melatonin 3 mg 04/19/25 21:00 Melatonin 3 Mg Tablet PO HS CONNIE Pantoprazole Sodium 40 mg 04/17/25 13:50 04/19/25 08:30 Pantoprazole 40 Mg Tablet PO 40 mg QAM CONNIE Administration Polyethylene Glycol 17 gm 04/17/25 09:00 04/19/25 08:30 Polyethylene Glycol 3350 17 Gm Powd.Pack PO 17 gm QAM CONNIE Administration Prednisone 40 mg 04/18/25 08:00 04/19/25 08:29 Prednisone 20 Mg Tablet PO 40 mg DAILY@0800 CONNIE Administration Tamsulosin HCl 0.4 mg 04/18/25 21:00 04/18/25 21:10 Tamsulosin Hcl 0.4 Mg Capsule PO 0.4 mg HS CONNIE Administration Radiology Results: ITS Impressions Chest X-Ray 04/16/25 21:21 IMPRESSION: No acute pulmonary findings. Labs Labs: Laboratory Results - last 24 hr 04/17/25 04/17/25 04/18/25 12:21 23:48 16:16 WBC RBC Hgb Hct MCV MCH MCHC RDW Plt Count MPV Immature Gran % (Auto) Neut % (Auto) Lymph % (Auto) [place] % (Auto) Eos % (Auto) Baso % (Auto) Lymph # (Auto) [place] # (Auto) Eos # (Auto) Baso # (Auto) Abs Immat Gran (auto) Absolute Neuts (auto) Absolute Nucleated RBC Nucleated RBC % Sodium Potassium Chloride Carbon Dioxide Anion Gap BUN Creatinine Estim Creat Clear Calc Estimated GFR Glucose POC Capillary Glucose 170 H Hemoglobin A1c Calcium Magnesium Total Bilirubin AST ALT Alkaline Phosphatase Total Protein Albumin TSH (Reflex) Free T4 Ur Random Sodium 15 Urine Creatinine 123.1 Chlamy pneumoniae PCR Not detected Adenovirus (PCR) Not detected B. pertussis DNA (PCR) Not detected B.parapertussis DNA PCR Not detected Coronavirus OC43 (PCR) Not detected Coronavirus HKU1 (PCR) Not detected Coronavirus 229E (PCR) Not detected Coronavirus NL63 (PCR) Not detected Human Metapneumovir PCR Not detected Influenza A (H1) PCR Not detected Influ A (H1/09) PCR Not detected Influenza A (H3) PCR Not detected Influenza Type A (PCR) Not detected Influenza Type B (PCR) Not detected M. pneumoniae (PCR) Not detected Parainfluenza 1 (PCR) Not detected Parainfluenza 2 (PCR) Not detected Parainfluenza 3 (PCR) Not detected Parainfluenza 4 (PCR) Not detected RSV (PCR) Not detected Entero/Rhino (PCR) Detected A SARS-CoV-2 (PCR) Not detected 04/18/25 04/19/25 04/19/25 21:18 05:13 08:05 WBC 13.9 H RBC 4.16 L Hgb 12.9 L Hct 38.4 L MCV 92.3 MCH 31.0 MCHC 33.6 RDW 12.9 Plt Count 266 MPV 9.2 Immature Gran % (Auto) 0.6 H Neut % (Auto) 87.7 H Lymph % (Auto) 5.3 L [place] % (Auto) 6.1 Eos % (Auto) 0.1 Baso % (Auto) 0.2 Lymph # (Auto) 0.74 L [place] # (Auto) 0.9 H Eos # (Auto) 0.0 Baso # (Auto) 0.0 Abs Immat Gran (auto) 0.08 H Absolute Neuts (auto) 12.1 H Absolute Nucleated RBC 0.000 Nucleated RBC % 0.0 Sodium 128 L Potassium 4.1 Chloride 94 L Carbon Dioxide 26 Anion Gap 8 BUN 24 H Creatinine 0.88 Estim Creat Clear Calc 50 Estimated GFR > 60 Glucose 93 POC Capillary Glucose 148 H 100 Hemoglobin A1c 5.8 H Calcium 8.5 Magnesium 2.0 Total Bilirubin 0.6 AST 26 ALT 31 Alkaline Phosphatase 109 Total Protein 6.5 Albumin 3.5 TSH (Reflex) < 0.015 L Free T4 2.33 H Ur Random Sodium Urine Creatinine Chlamy pneumoniae PCR Adenovirus (PCR) B. pertussis DNA (PCR) B.parapertussis DNA PCR Coronavirus OC43 (PCR) Coronavirus HKU1 (PCR) Coronavirus 229E (PCR) Coronavirus NL63 (PCR) Human Metapneumovir PCR Influenza A (H1) PCR Influ A (H1/09) PCR Influenza A (H3) PCR Influenza Type A (PCR) Influenza Type B (PCR) M. pneumoniae (PCR) Parainfluenza 1 (PCR) Parainfluenza 2 (PCR) Parainfluenza 3 (PCR) Parainfluenza 4 (PCR) RSV (PCR) Entero/Rhino (PCR) SARS-CoV-2 (PCR) 04/19/25 11:33 WBC RBC Hgb Hct MCV MCH MCHC RDW Plt Count MPV Immature Gran % (Auto) Neut % (Auto) Lymph % (Auto) [place] % (Auto) Eos % (Auto) Baso % (Auto) Lymph # (Auto) [place] # (Auto) Eos # (Auto) Baso # (Auto) Abs Immat Gran (auto) Absolute Neuts (auto) Absolute Nucleated RBC Nucleated RBC % Sodium Potassium Chloride Carbon Dioxide Anion Gap BUN Creatinine Estim Creat Clear Calc Estimated GFR Glucose POC Capillary Glucose 112 H Hemoglobin A1c Calcium Magnesium Total Bilirubin AST ALT Alkaline Phosphatase Total Protein Albumin TSH (Reflex) Free T4 Ur Random Sodium Urine Creatinine Chlamy pneumoniae PCR Adenovirus (PCR) B. pertussis DNA (PCR) B.parapertussis DNA PCR Coronavirus OC43 (PCR) Coronavirus HKU1 (PCR) Coronavirus 229E (PCR) Coronavirus NL63 (PCR) Human Metapneumovir PCR Influenza A (H1) PCR Influ A (H1/09) PCR Influenza A (H3) PCR Influenza Type A (PCR) Influenza Type B (PCR) M. pneumoniae (PCR) Parainfluenza 1 (PCR) Parainfluenza 2 (PCR) Parainfluenza 3 (PCR) Parainfluenza 4 (PCR) RSV (PCR) Entero/Rhino (PCR) SARS-CoV-2 (PCR)
[2025-04-19] MEDS: CALCIUM CARBONATE (TUMS) 500 MG (200 MG ELEMENTAL) PO (15:21)
[2025-04-19] MEDS: PROPRANOLOL HCL 10 MG TABLET PO ×2 (16:04→20:48)
[2025-04-19 18:16] LABS: Syphilis IgG/IgM Antibody Non-Reactive (Nonreactive)
[2025-04-19 18:54] LABS: Vitamin B12 934.0 pg/mL (239-931)
[2025-04-19] MEDS: TAMSULOSIN HCL 0.4 MG CAPSULE PO (20:48)
[2025-04-19] MEDS: MELATONIN 3 MG TABLET PO (20:50)
[2025-04-19] MEDS: INSULIN GLARGINE (*BKC) 100 UNITS/ML 10 UNITS SUB-Q (20:51)
[2025-04-20] VITALS (14 sets, daily range): BP systolic 110–153; BP diastolic 68–93; PULSE 54–83; RESP 14–20; TEMP 35.8–36.4; O2SAT 92–95
--- NOTE | 2025-04-20 | ECHO_ITS ---
Patient Info Name: Noé Davila Age: 89 years : 1935 Gender: Male Ht: 72 in Wt: 155 lbs BSA: 1.88 m2 HR: 71 bpm BP: 149 / 82 mmHg Technical Quality: Good Exam Date: 04/20/2025 9:24 AM Patient Status: I Admit Date: 04/18/2025 Exam Type: CA echo limited w bubble study Limited two-dimensional transthoracic echocardiogram is performed with agitated saline. Staff Referring Physician: Naty Granados Brick Maker: Gianni Gupta III Attending Provider: Slick Muller Contrast/Agitated Saline Contrast/Ag. Saline: Agitated Saline Amount: 12.00 ml Administered By: Gianni Gupta III Existing IV Access: Yes IV Access Condition: patent with no signs of infiltration Summary 1. The atrial septum is normal. Bubble study is negative for [id number] shunt. 2. The left ventricle is normal in size and systolic function. The left ventricular ejection fraction is visually estimated to be 60-65%. 3. The right ventricle is normal in size and systolic function. Left Ventricle The left ventricle is normal in size and systolic function. The left ventricular ejection fraction is visually estimated to be 60-65%. Right Ventricle The right ventricle is normal in size and systolic function. Atrial Septum The atrial septum is normal. Bubble study is negative for [id number] shunt. Aortic Valve The aortic valve is trileaflet and sclerotic. There is no aortic stenosis. Mitral Valve The mitral valve is normal. Ventricles Name Value Normal LV Dimensions 2D/MM IVS Diastolic Thickness (2D) 0.9 cm 0.6-1.0 LVID Diastole (2D) 4.8 cm 4.2-5.8 LVIW Diastolic Thickness (2D) 0.9 cm 0.6-1.0 LVID Systole (2D) 3.2 cm 2.5-4.0 LV Mass (2D Cubed) 149.59 g 88.00-224.00 LV Mass Index (2D Cubed) 79 g/m2 49-115 Relative Wall Thickness (2D) 0.38 <=0.42 LV Fractional Shortening/Ejection Fraction 2D/MM LV Fractional Shortening (2D) 35 % 25-43 LV EF (2D Teichholz) 64 % LV Diastolic Volume (4C MOD) 55 ml LV EF (4C MOD) 64 % LV Diastolic Volume (2C MOD) 48 ml LV EF (2C MOD) 66 % LV Diastolic Volume (BP MOD) 53 ml 62-150 LV Diastolic Volume Index (BP MOD) 28 ml/m2 34-74 LV Systolic Volume (BP MOD) 19 ml 21-61 LV Systolic Volume Index (BP MOD) 10 ml/m2 11-31 LV EF (BP MOD) 65 % 52-72 LV Diastolic Length (4C) 6.7 cm LV Systolic Length (4C) 5.4 cm LV Stroke Volume (4C MOD) 35 ml Report Signatures
[2025-04-20] MEDS: IPRATROPIUM BR 0.02% INH SOLN 0.5 MG/2.5 ML VIAL INHALATION ×4 (02:00→21:03)
--- NOTE | 2025-04-20 02:44 | PCRCNOTE ---
Apnea link was ended due to pt broke the pulse ox in half.
[2025-04-20 05:36] LABS: Hematocrit 36.9 % (42.0-52.0); Hemoglobin 12.2 g/dL (14.0-18.0); Immature Granulocyte Percent A 2.3 % (0-0.5); Lymphocytes Absolute Auto 0.76 K/mm3 (0.9-3.2); Mean Corpuscular HGB Conc 33.1 g/dl (32-36); Mean Corpuscular Hemoglobin 30.6 pg (26-34); Mean Corpuscular Volume 92.5 fl (80-100); Nucleated Red Blood Cells Absolute Auto 0.000 K/mm3 (0.0-0.012); Nucleated Red Blood Cells Perc 0.0 % (0.0-0.2); Platelet Count Result 268 k/mm3 (150-375); Red Blood Count 3.99 M/mm3 (4.6-6.20); White Blood Count 12.4 K/mm3 (4.5-10.0)
[2025-04-20 05:52] LABS: Alanine Aminotransferase 28 U/L (6-50); Albumin Level 3.2 g/dL (3.5-5.1); Alkaline Phosphatase 98 U/L (38-126); Anion Gap 5 mmol/L (4-12); Aspartate Amino Transferase 29 U/L (17-59); Bilirubin,Total 0.6 mg/dL (0.2-1.3); Blood Urea Nitrogen 23 mg/dL (9-20); Calcium 8.5 mg/dL (8.4-10.2); Carbon Dioxide 24 mmol/L (22-30); Chloride 96 mmol/L (98-107); Estimated CRCL calculation 54 ml/min; Estimated Glomerular Filt Rate > 60; Glucose 96 mg/dL (65-110); Magnesium 2.2 mg/dL (1.6-2.3); Potassium 4.2 mmol/L (3.4-5.0); Sodium 125 mmol/L (137-145); Total Protein 6.2 g/dL (6.3-8.2)
[2025-04-20 06:36] LABS: Free T3 2.92 pg/mL (2.34-5.61)
--- NOTE | 2025-04-20 08:10 | PM.IMPN ---
Progress Note: A&P Assessment and Plan (1) Dyspnea on exertion: Code(s): R06.09 - Other forms of dyspnea Status: Acute Assessment and Plan: -the patient's chest x-ray shows no acute cardiopulmonary. -his lungs sound clear. -the patient had an echo in 11/2024 which was read as the followingTechnically suboptimal study due to poor sonographic images. 2. Definity contrast administered improved wall motion interpretation. 3. Left ventricular chamber dimension is normal. 4. Left ventricular systolic function is normal, estimated at 60-65. 5. There is mild concentric increased left ventricular wall thickness. 6. The left ventricular diastolic function is grade I diastolic dysfunction. 7. E/e' 5 is not elevated. 8. Agitated saline injection with and without valsalva maneuver which was suboptimal as bubbles not seen in right ventricle. 9. There is mild aortic valve sclerosis. 10. There is trace aortic valve regurgitation. 11. There is mild mitral valve regurgitation. 12. There is mild tricuspid valve regurgitation. 13. No pulmonary hypertension, estimated pulmonary arterial systolic pressure is 30 mmHg. 14. There is trace pulmonic regurgitation. -he had a hs/abdomen/pelvis CTA on 04/15/2025There is no pulmonary embolism, aortic dissection, pericardial fluid or thoracic aneurysm. Emphysematous changes. 13.5 mm pulmonary nodule in the left lower lobe. No acute abnormality is noted in the abdomen and pelvis. Lobulated enlarged prostate gland is noted. Correlation with PSA is recommended. -the patient may need a pulmonary function test. -patient most likely has some component of emphysema please. -continue with the breathing treatments and steroids for now. -pulmonary consultation greatly be appreciated. -cardiac enzymes are negative. -exertional dyspnea unclear. The patient has had PEs in the past but was for PEs on the most recent CTA. He is also known to have AFib and SVT in the past. 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 -continue with Luz Maria Thomson 04/17: Pt A&O x4 today but confused at sometimes. Daughter is at the bedside, states that this is somewhat his baseline but he has been waxing and waning. UA has not been performed to r/o UTI, Ordered today. -Pulm also saw pt today and with seeing nodules on CT, treating aggressively if it were PNA. PNA vs. scarring. IV Levaquin ordered as well as COPD exacerbation meds: prednisone, guifenesin, nebs, inhalers. -resp panel pending -cards consult pending -->May order echo depending on how sx progress/MALDONADO -[id number], will continue to trend 04/18: Started Levofloxacin per pulmonary recommendations and continued prednisone 40 mg daily 04/19: WBC fell from 16/5 --> 13.9 today, continue abx & therapy Cards & pulm consulted: 04/18 cards consult: F/u for Hx of PVST outpt, pt has established chief technologist Dr. Jackson. Pt also with recent echo in November 2024, cards reviewed. Cards signing off. 04/20: WBC continuing to downtrend, 12.4 today. Continue abx & therapy. Lungs continue to sound clear. +Entero/rhino (2) Hyponatremia: Code(s): E87.1 - Hypo-osmolality and hyponatremia Status: Acute Assessment and Plan: Appears to be chronic, but Na 123 today, acute may be contributing to disorientation today -IVF NS ordered -Repeat BMP this evening -May consider fluid restriction and/or Na supplement if does not rise -Pending cards consult to r/u other potential risk factors -Kidneys function WDL for age -10/18: Improved to 126 with hydration; baseline is 127-133; ordered TSH, FENa 04/19: Na improved to 128 today, continue hydration, & daily labs. TSH low at <0.015, t4 high at 2.23 today -Started propranolol 10mg TID as well as methimazole 5mg daily, pt will need to f/u outpatient with an supervisor inspection 04/20: Na back down to 125 today, continue hydration and labs -Implementing hyperthyroid treatment today, will follow to see if helps values, if not, may add on sodium tab -Ordered urine os and serum os today (3) Dementia: Code(s): F03.90 - Unspecified dementia, unspecified severity, without behavioral disturbance, psychotic disturbance, mood disturbance, and anxiety Status: Acute Assessment and Plan: No officially established but likely dx Ordered lab evaluation 04/1801/22/25 CT Brain: The ventricles are enlarged. The dilatation of the ventricles is proportional to the degree of sulcal prominence, not uncommon in the senescent brain. Decreased attenuation is identified within the periventricular white matter, likely secondary to microvascular ischemic disease, in a patient of this age. There is no mass, mass effect or midline shift. There is no abnormal extra-axial fluid collection or intracranial hemorrhage. Visualized paranasal sinuses are clear. The mastoid air cells are well aerated. No acute displaced fractures within the overlying cranium. Impression: No acute intracranial hemorrhage or suspicious mass effect. 04/19: -Neurological exam yielding no abnormalities. A&O x3 today, no disorientation upon my exam. -Daughter, Josiane, at the bedside today with grave concerns for a stroke, due to his AM and PM agitation and confusion. We had a thorough discussion of dementia vs acute stroke and treatment for both. Daughter insisting on brain MRI to r/o stroke because she is concerned that her dad will not be able to go back to his residence due to his memory / behavioral issues. MRI stroke ordered, may decide to get neuro involved depending on MRI results. -Daughter also reporting that pt has not had any sleep since here and is wondering if we could try melatonin at night time, will order 04/20: Oriented today. 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 (4) Benign prostatic hyperplasia: Code(s): N40.0 - Benign prostatic hyperplasia without lower urinary tract symptoms Status: Acute Assessment and Plan: 04/18 started tamsulosin (5) Hyperglycemia: Code(s): R73.9 - Hyperglycemia, unspecified Status: Acute Assessment and Plan: 04/18: Likely due to steroids with possible impaired glucose tolerance, A1c orderd 04/19: A1c, 5.8, appropriate for age (6) Anxiety: Code(s): F41.9 - Anxiety disorder, unspecified Status: Acute Assessment and Plan: -continue with buspirone (7) Depression: Code(s): F32.A - Depression, unspecified Status: Acute Assessment and Plan: -continue buspirone (8) Hypertension: Code(s): I10 - Essential (primary) hypertension Status: Acute Assessment and Plan: -continue losartan -daily BMP -continue with amlodipine 04/19: BP mildly more elevated today, will continue to monitor. Can also increase losartan dose if needed if persistent -Also starting propranolol for hyperthyroid today, this may help decrease BP some 04/20: -BP looks as if has returned to pts baseline, continue to monitor (9) Hyperlipidemia: Code(s): E78.5 - Hyperlipidemia, unspecified Status: Chronic Assessment and Plan: -continue with atorvastatin can continue to monitor liver enzymes (10) COPD (chronic obstructive pulmonary disease): Code(s): J44.9 - Chronic obstructive pulmonary disease, unspecified Status: Acute Assessment and Plan: See MALDONADO above (11) Hyperthyroidism without thyroid nodule: Code(s): E05.90 - Thyrotoxicosis, unspecified without thyrotoxic crisis or storm Status: Acute Assessment and Plan: Andrade TSH due to hyponatremia TSH low at <0.015, t4 high at 2.23 today, pending t3 -Started propranolol 10mg TID as well as methimazole 5mg daily, pt will need to f/u outpatient with an supervisor inspection Plan Pending brain MRI, potential neuro consult, hyperthyroid management Time Spent With Patient Time: 60 minutes Subjective Date/time seen: 04/20/25 1420 Interval history: Daughter, Roseanne, at the bedside today upon my arrival to the pt room. Pt resting comfortably in bed. Pt continues to be oriented for me, but seems forgetful. Denies pain as well as SOB/CP. 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 Review of Systems Review of Systems: All systems reviewed & are unremarkable except as noted in HPI and below Constitutional: Constitutional: Reports as per HPI and Reports no additional constitutional complaints Eyes: Eyes: Reports as per HPI and Reports no additional eye complaints ENT: Reports system reviewed and no additional complaints, except as documented and Reports Normal hearing present Cardiovascular: Cardiovascular: Reports no additional cardiovascular complaints Respiratory: Respiratory: Reports as per HPI and Reports no additional respiratory complaints Gastrointestinal: Gastrointestinal: Reports as per HPI and Reports no additional gastrointestinal complaints Musculoskeletal: Musculoskeletal: Reports no additional musculoskeletal complaints Integumentary/Breasts: Skin/Breast: Reports system reviewed and no additional complaints, except as docu Neurologic: Reports system reviewed and no additional complaints, except as documented and Reports Normal hearing present Psychiatric: Psychiatric: Reports no additional psychiatric complaints and Reports as per HPI Hematologic/Lymphatic: Hematologic/Lymphatic: Reports no additional hematologic/lymphatic complaints Allergic/Immunologic: Allergic/Immunologic: Reports no additional allergic/immunologic complaints Exam Const: General: cooperative, healthy appearing, comfortable, no acute distress, well developed, awake, Physically active, average body habitus and well nourished Nutritional Appearance: average body habitus and well nourished Orientation/consciousness: oriented to person and patient oriented x3 HENMT: Head: normal to inspection, No palpable skull fracture present, normocephalic, atraumatic and abrasion Eyes: General: appearance normal, both eyes and all related structures Alignment and Position: alignment normal Periorbital: periorbital findings normal Neck: Neck: normal visual inspection and full ROM Chest: Chest palpation & inspection: normal inspection of the chest Resp: Effort & Inspection: normal respiratory effort Auscultation: clear to auscultation bilaterally Cardio: Palpation: normal PMI Rate: regular rate Rhythm: regular rhythm Heart sounds: S1 normal heart sound present and S2 normal heart sound present Peripheral pulses: Peripheral pulses 2+ throughout GI: Inspection: normal to inspection Auscultation: normal bowel sounds Rectal Exam: deferred : General: Yes no CVA tenderness Back/Spine/Pelvis: Back: no CVA tenderness Cervical Spine: cervical ROM normal Skin: General skin exam: normal color Lesions: no lesions Rashes: no rashes Trauma: no lacerations or abrasions Wounds: no wounds Neuro: General: oriented to person and patient oriented x3 Cranial nerves: Yes Normal hearing present Other: Oriented to person, place, and scenario, could not tell me what holiday was next or the current president Extrem: General: normal to inspection Right upper extremity: normal to inspection and shoulder/upper arm Left upper extremity: normal to inspection and shoulder/upper arm Right lower extremity: normal to inspection Left lower extremity: normal to inspection Psych: Appearance: grossly normal Mental Status: mental status grossly normal Speech and movement: Normal speech and movement present Affect: normal affect Objective Data Vital Signs Vital Signs: Vital Signs - 24 hr 04/19/25 13:31 04/19/25 14:00 04/19/25 14:13 Temperature 97.2 F L Pulse Rate 100 86 Respiratory Rate 12 18 Blood Pressure 141/76 H Pulse Oximetry 93 Oxygen Delivery Room Air Fraction of Inspired Oxygen 04/19/25 14:20 04/19/25 14:40 04/19/25 19:22 Temperature 98.1 F Pulse Rate 88 81 Respiratory Rate 18 20 Blood Pressure 138/53 L Pulse Oximetry 94 Oxygen Delivery Room Air Fraction of Inspired Oxygen 04/19/25 20:48 04/19/25 20:58 04/19/25 21:00 Temperature Pulse Rate 76 89 Respiratory Rate 20 Blood Pressure Pulse Oximetry Oxygen Delivery Room Air Fraction of Inspired Oxygen 04/19/25 21:03 04/19/25 21:09 04/20/25 02:02 Temperature Pulse Rate 88 61 Respiratory Rate 20 20 Blood Pressure Pulse Oximetry 90 Oxygen Delivery Room Air Fraction of Inspired Oxygen 21 04/20/25 02:11 04/20/25 04:34 Temperature 97.5 F L Pulse Rate 67 71 Respiratory Rate 20 20 Blood Pressure 149/82 H Pulse Oximetry 95 Oxygen Delivery Fraction of Inspired Oxygen Intake/Output Intake/Output: Intake & Output 04/17/25 04/18/25 04/19/25 04/20/25 23:59 23:59 23:59 23:59 Intake Total 1520 2820 3230 340 Output Total 1200 Balance 1520 1620 3230 340 Meds/Results Medications: Active Medications Generic Name Dose Route Start Last Admin Trade Name Freq PRN Reason Stop Dose Admin Amlodipine Besylate 5 mg 04/17/25 09:00 04/19/25 08:29 Amlodipine Besylate 5 Mg Tablet PO 5 mg DAILY CONNIE Administration Aspirin 81 mg 04/17/25 09:00 04/19/25 08:30 Aspirin 81 Mg Enteric Tablet PO 81 mg DAILY CONNIE Administration Atorvastatin Calcium 20 mg 04/17/25 09:00 04/19/25 08:30 Atorvastatin 20 Mg Tablet PO 20 mg DAILY CONNIE Administration Benzonatate 200 mg 04/17/25 08:37 Benzonatate 100 Mg Capsule PO Q8H PRN cough Buspirone HCl 5 mg 04/17/25 09:00 04/19/25 20:50 Buspirone Hcl 5 Mg Tablet PO 5 mg Q12HR CONNIE Administration Calcium Carbonate 200 mg 04/19/25 15:05 04/19/25 15:21 Calcium Carbonate (Tums) 500 Mg (200 Mg Elemental) PO 200 mg Q6H PRN Administration Indigestion Dextrose 12.5 gm 04/18/25 12:17 Dextrose 50% 25 Gm/50 Ml Syringe IV PUSH PRN PRN Hypoglycemia Protocol Docusate Sodium 100 mg 04/17/25 09:00 04/19/25 16:04 Docusate Sodium 100 Mg Capsule PO 100 mg BID CONNIE Administration Fluticasone Propionate 1 spray 04/17/25 09:00 04/19/25 16:04 Fluticasone Propionate 0.05% Na Spr 16 Gm Btl (*Bkc) NASAL 1 spray BID CONNIE Administration Glucagon 1 mg 04/18/25 12:17 Glucagon For Inj 1 Mg Vial IM PRN PRN Hypoglycemia Protocol Glucose 15 gm 04/18/25 12:17 Glucose Oral Gel 15 Gm Of Glucse In 37.5 Gm Tube PO PRN PRN Hypoglycemia Protocol Guaifenesin 1,200 mg 04/17/25 21:00 04/19/25 20:50 Guaifenesin 12 Hr 600 Mg Tabcr PO 1,200 mg Q12HR CONNIE Administration Sodium Chloride 1,000 mls @ 75 mls/hr 04/17/25 11:45 04/19/25 17:33 Normal Saline Iv IV CONT 75 mls/hr .[id number] CONNIE Administration Dextrose 1,000 mls @ 100 mls/hr 04/18/25 12:17 Dextrose 5% 1,000 Ml IVPB PRN PRN Hypoglycemia Protocol Insulin Aspart 2 - 5 units 04/18/25 17:00 04/19/25 16:35 Insulin Aspart (*Bkc) 100 Units/Ml SUB-Q Not Given TIDWM CONNIE Protocol Insulin Glargine 10 units 04/18/25 21:00 04/19/25 20:51 Insulin Glargine (*Bkc) 100 Units/Ml SUB-Q 10 units HS CONNIE Administration Ipratropium [place] 0.5 mg 04/17/25 14:00 04/20/25 02:00 Ipratropium Br 0.02% Inh Soln 0.5 Mg/2.5 Ml Vial INHALATION 0.5 mg Q6HRT CONNIE Administration Levofloxacin 750 mg 04/18/25 13:00 04/18/25 12:58 Levofloxacin 750 Mg Tablet PO 04/24/25 12:59 750 mg Q48H CONNIE Administration Losartan Potassium 50 mg 04/17/25 09:00 04/19/25 08:29 Losartan Potassium 50 Mg Tablet PO 50 mg DAILY CONNIE Administration Melatonin 3 mg 04/19/25 21:00 04/19/25 20:50 Melatonin 3 Mg Tablet PO 3 mg HS CONNIE Administration Methimazole 5 mg 04/20/25 09:00 Methimazole 5 Mg Tab PO QAM CONNIE Pantoprazole Sodium 40 mg 04/17/25 13:50 04/19/25 08:30 Pantoprazole 40 Mg Tablet PO 40 mg QAM CONNIE Administration Perflutren Lipid Microsphere 0 ml 04/20/25 07:48 Perflutren Lipid Microspheres 1.5 Ml Vial Diluted To 10 Ml Total Volume IV PUSH 04/22/25 15:49 ONCE PRN adequate visualization Protocol Polyethylene Glycol 17 gm 04/17/25 09:00 04/19/25 08:30 Polyethylene Glycol 3350 17 Gm Powd.Pack PO 17 gm QAM CONNIE Administration Prednisone 40 mg 04/18/25 08:00 04/19/25 08:29 Prednisone 20 Mg Tablet PO 40 mg DAILY@0800 CONNIE Administration Propranolol HCl 10 mg 04/19/25 17:00 04/19/25 20:48 Propranolol Hcl 10 Mg Tablet PO 10 mg QID CONNIE Administration Tamsulosin HCl 0.4 mg 04/18/25 21:00 04/19/25 20:48 Tamsulosin Hcl 0.4 Mg Capsule PO 0.4 mg HS CONNIE Administration Radiology Results: ITS Impressions Chest X-Ray 04/16/25 21:21 IMPRESSION: No acute pulmonary findings. Labs Labs: Laboratory Results - last 24 hr 04/19/25 04/19/25 04/19/25 05:13 08:05 11:33 WBC RBC Hgb Hct MCV MCH MCHC RDW Plt Count MPV Immature Gran % (Auto) Neut % (Auto) Lymph % (Auto) [place] % (Auto) Eos % (Auto) Baso % (Auto) Lymph # (Auto) [place] # (Auto) Eos # (Auto) Baso # (Auto) Abs Immat Gran (auto) Absolute Neuts (auto) Absolute Nucleated RBC Nucleated RBC % Sodium Potassium Chloride Carbon Dioxide Anion Gap BUN Creatinine Estim Creat Clear Calc Estimated GFR Glucose POC Capillary Glucose 100 112 H Calcium Magnesium Total Bilirubin AST ALT Alkaline Phosphatase Total Protein Albumin Vitamin B12 934.0 H Folate 5.3 Free T3 pg/mL Total T3 Syphilis IgG/IgM Ab Non-reactive 04/19/25 04/19/25 04/20/25 16:26 19:19 05:06 WBC RBC Hgb Hct MCV MCH MCHC RDW Plt Count MPV Immature Gran % (Auto) Neut % (Auto) Lymph % (Auto) [place] % (Auto) Eos % (Auto) Baso % (Auto) Lymph # (Auto) [place] # (Auto) Eos # (Auto) Baso # (Auto) Abs Immat Gran (auto) Absolute Neuts (auto) Absolute Nucleated RBC Nucleated RBC % Sodium 125 L Potassium 4.2 Chloride 96 L Carbon Dioxide 24 Anion Gap 5 BUN 23 H Creatinine 0.81 Estim Creat Clear Calc 54 Estimated GFR > 60 Glucose 96 POC Capillary Glucose 148 H 284 H Calcium 8.5 Magnesium 2.2 Total Bilirubin 0.6 AST 29 ALT 28 Alkaline Phosphatase 98 Total Protein 6.2 L Albumin 3.2 L Vitamin B12 Folate Free T3 pg/mL Total T3 Syphilis IgG/IgM Ab 04/20/25 04/20/25 04/20/25 05:07 05:07 07:50 WBC 12.4 H RBC 3.99 L Hgb 12.2 L Hct 36.9 L MCV 92.5 MCH 30.6 MCHC 33.1 RDW 12.8 Plt Count 268 MPV 9.1 Immature Gran % (Auto) 2.3 H Neut % (Auto) 84.2 H Lymph % (Auto) 6.1 L [place] % (Auto) 6.4 Eos % (Auto) 0.7 Baso % (Auto) 0.3 Lymph # (Auto) 0.76 L [place] # (Auto) 0.8 H Eos # (Auto) 0.1 Baso # (Auto) 0.0 Abs Immat Gran (auto) 0.29 H Absolute Neuts (auto) 10.5 H Absolute Nucleated RBC 0.000 Nucleated RBC % 0.0 Sodium Potassium Chloride Carbon Dioxide Anion Gap BUN Creatinine Estim Creat Clear Calc Estimated GFR Glucose POC Capillary Glucose 128 H Calcium Magnesium Total Bilirubin AST ALT Alkaline Phosphatase Total Protein Albumin Vitamin B12 Folate Free T3 pg/mL Cancelled 2.92 Total T3 Cancelled Syphilis IgG/IgM Ab Quality VTE Prophylaxis VTE prophylaxis: mechanical ordered
[2025-04-20] MEDS: SODIUM CHLORIDE 0.9% IV 1,000 ML 75 ML IV CONT ×2 (08:15→22:40)
[2025-04-20] MEDS: CALCIUM CARBONATE (TUMS) 500 MG (200 MG ELEMENTAL) PO (08:30)
[2025-04-20] MEDS: ATORVASTATIN 20 MG TABLET PO (09:35)
[2025-04-20] MEDS: DOCUSATE SODIUM 100 MG CAPSULE PO ×2 (09:35→16:57)
[2025-04-20] MEDS: ASPIRIN 81 MG ENTERIC TABLET PO (09:35)
[2025-04-20] MEDS: LOSARTAN POTASSIUM 50 MG TABLET PO (09:37)
[2025-04-20] MEDS: guaiFENesin 12 HR 600 MG TABCR 1200 MG PO ×2 (09:38→21:41)
[2025-04-20] MEDS: PROPRANOLOL HCL 10 MG TABLET PO ×4 (09:38→21:43)
[2025-04-20] MEDS: PANTOPRAZOLE 40 MG TABLET PO (09:38)
[2025-04-20] MEDS: FLUTICASONE PROPIONATE 0.05% NA SPR 16 GM BTL (*BKC) 1 SPRAY NASAL ×2 (09:50→16:58)
--- NOTE | 2025-04-20 11:52 | PC.NURSE ---
On 04/20/25, the student, [Julissa Valdez ], provided care and completed [facility] documentation on this patient. I have reviewed the student's documentation and agree with the findings.
--- NOTE | 2025-04-20 11:53 | PC.NURSE ---
On 04/20/25, the student, [Monica Hernandez], provided care and completed [facility] documentation on this patient. I have reviewed the student's documentation and agree with the findings.
--- NOTE | 2025-04-20 13:20 | PC.NURSE ---
To OR via wheelchair.
--- NOTE | 2025-04-20 17:15 | P.PNPL_ITS ---
Progress Note: A&P Assessment and Plan (1) Acute exacerbation of chronic obstructive pulmonary disease: Code(s): J44.1 - Chronic obstructive pulmonary disease with (acute) exacerbation Status: Acute Assessment and Plan: 04/17; He has diffuse bullous emphysema, smoked from [id number] at half a pack a day for total of 27 pack years. Patient states that he does walk with a walker and has shortness of breath that limits him. He is not on any oxygen. I have no PFTs. For CT scan on 12/31/2002 in our system shows bullous emphysema in the report. CT angiogram of the chest on 04/15/2025 shows moderate apical predominant centrilobular emphysema right apical scarring, right upper lobe ground-glass infiltrate and left lower lobe 9.7 times 13.4 mm nodule with surrounding infiltrate. ABG on 04/15 on room air 7.49/57. Patient is maintained on Breo Ellipta and p.r.n. albuterol. He is not on home oxygen. 04/15/25: White blood cell count 13.3, eosinophils 0.4% equals 53 per micro L patient is unable to give me a reliable history but states he has been short of breath for 3 days. He presented to the emergency room on 04/15, and had a CT angiogram of the chest with no pulmonary embolism, moderate apical predominant centrilobular emphysema right upper lobe ground-glass infiltrate and left lower lobe nodule. ABG on room air 7.49/. Patient was treated for COPD exacerbation with bronchodilators and steroids. Patient re-presented to the emergency room on 04/16 with a white blood cell count 21.1, creatinine 1.05 and was admitted to the hospital. COVID, influenza, RSV RT PCR assay negative. 04/17/2025; Patient tells me he has no rest shortness of breath, his dyspnea on exertion is the same as yesterday. He denies fever, chills, rigors, phlegm production or hemoptysis. he is on room air with saturations 94%. He is afebrile. White blood cell count 18.0, creatinine 1.01. no wheezing on exam. he complains his phlegm does get stuck in his throat. Plan: I will treat patient for COPD exacerbation. He was started on Solu- Medrol and is currently on 60 mg IV q.6 hours, last dose at 9:37 a.m. this morning. He has no wheezing. I will discontinue Solu-Medrol place him on prednisone 40 starting tomorrow. He was placed on Advair 115-21 at 2 puffs q.12 hours. I will discontinue Advair and place him on ipratropium nebulizers Q 6 hours only as there is a possibility of an SVT last night. Patient has no infectious complaints but does have nodules with infiltrate and I will treat him with Levaquin 750 mg p.o. Q 48 hours for 7 days for creatinine clearance of 44. I will send a respiratory pathogen panel looking for etiology of a possible exacerbation. He complains phlegm it is getting stuck in his throat and I will place him on guaifenesin 1200 mg p.o. b.i.d. and also initiate a Cornet flutter valve. 04/18; no change in his current treatment regimen. I discussed his care with Dr Samuels and his daughter, Josiane. I spoke with her about encouraging jordan to drink enough fluids to loose secretions to improve expectoration. 04/19; same medication regimen. (2) Lung nodule: Code(s): R91.1 - Solitary pulmonary nodule Status: Acute Assessment and Plan: He has 13.5 x 9.7 mm pulmonary nodule in the left lower lobe, subpleural reticulations in the lung bases posteriorly, may be early pulmonary fibrosis. We will discuss urther work up when he is an out patient. This is an outpatient issue. He may benefit from chest CT or PET scan in 3 months after discharge. (3) Shortness of breath: Code(s): R06.02 - Shortness of breath Status: Acute Assessment and Plan: He is very short of breath with minimal exertion, worse this admission compared to baseline. ABG on admission on room air = pH 7.48, pCO2 29, pO2 57, HCO3 21, sat 89.7%. (4) History of tobacco use: Code(s): Z87.891 - Personal history of nicotine dependence Status: Acute Assessment and Plan: He has a 27 pack year history of tobacco, [id number] at half a pack a day, none x 2005. Plan plan: 1) No changes in his care at this time. Continue same medications -->oral Levaquin, po prednisone, guaifenesin, Tessalon perles/benzonatate, nebulized ipratropium. He is not on a beta agonist because he has atrial fibrillation, albuterol may aggravate his dysrhythmia. At home he was using Breo, LABA and ICS, and albuterol as a p.r.n. inhaler. 2) His saturation is sustained at 93%. His pO2 was 58 on admission on room air. Apr 20 Echo with bubble study is negative for shunt, The atrial septum is normal. Bubble study is negative for [id number] shunt. 2. The left ventricle is normal in size and systolic function. The left ventricular ejection fraction is visually estimated to be 60-65%. 3. The right ventricle is normal in size and systolic function. 3) Last night he tried to use the overnight oximetry but the fingetip probe broke. He had 6 minutes of recording, so the data may not be reliable but it did show even on 6 minutes a very high apnea-hypopnea index. Low saturation. We will have to repeat this. 4) Alpha-1 lab sent 04/20. Pending. 5) Daughter Roseanne requests nebulizer at discharge. This is a device that can deliver the same classes of medications that he receives now, although a nebulizer may improve distribution compared to inhalation from an inhaler. He was on Breo prior to this admission, with an office visit that planned to switch him to a triple inhaler, Breztri, not initiated due to cost. 6) As an outpatient, he will come for an initial office visit in 2-3 weeks, see how he feels after recovering from this acute exacerbation of COPD, see if meds need to be adjusted; we will address his pulmonary nodule as this may represent a malignancy. Plan for out patient PFT, 6 Minute Walk when he is stable at baseline, and plan to refer to pulmonary rehab. This is to increase strength, balance, endurance, and quality of life, if he wants to do it and if someone can take him twice a week. We will discuss work up of his LLL nodule. He is almost 89, has dementia, not sure of he could tolerate a PET scan or even performing PFTs. Subjective Date/time seen: 04/20/25 17:15 Interval history: 04/17/2025: This is a new pulmonary consult for COPD exacerbation and lung nodules. 89-year-old with a history of dementia, atrial fibrillation and COPD. Patient has dementia. He misspelled his last name, does not know the place or year and does not know the ballpoint pens assembler. I spoke to the daughter and she says he is more confused since he is been in the hospital. Regarding his COPD: Patient smoked from [id number] at half a pack a day for total of 27 pack years. Patient states that he does walk with a walker and has shortness of breath that limits him. He is not on any oxygen. I have no PFTs. For CT scan on 12/31/2002 in our system shows bullous emphysema in the report. CT angiogram of the chest on 04/15/2025 shows moderate apical predominant centrilobular emphysema right apical scarring, right upper lobe ground-glass infiltrate and left lower lobe 9.7 times 13.4 mm nodule with surrounding infiltrate. Patient is maintained on Breo Ellipta and p.r.n. albuterol. He is not on home oxygen. patient is unable to give me a reliable history but states he has been short of breath for 3 days. He presented to the emergency room on 04/15, and had a CT angiogram of the chest with no pulmonary embolism, moderate apical predominant centrilobular emphysema right upper lobe ground-glass infiltrate and left lower lobe nodule. ABG on room air 7.49//57. Patient was treated for COPD exacerbation with bronchodilators and steroids. Patient re-presented to the emergency room on 04/16 with a white blood cell count 21.1, creatinine 1.05 and was admitted to the hospital. 04/17/2025; Patient tells me he has no rest shortness of breath, his dyspnea on exertion is the same as yesterday. He denies fever, chills, rigors, phlegm production or hemoptysis. he is on room air with saturations 94%. He is afe brile. White blood cell count 18.0, creatinine 1.01. no wheezing on exam. 04/18/2025; 14:45 time of visit; patient is seen in follow up for COPD exacerbation and a pulmonary nodule 13.5 mm in the left lower lobe. He is on room air, sat is 90-94%. WBC is lower, 16.5k, 18k yesterday, 21.1k on admission with creatinine 1.01. He is on po Levaquin #1, prednisone 40 mg, guaifenesin, nebs, inhalers. His daughter Josiane is present, and I discussed her father's condition, showed her imaging, answered questions. She provided additional formation about his health. He has lived at [facility] for 2 months, after being in the hospital over the summer with poor breathing, dizziness, a minimal fall which his daughter said was due to dizziness on standing, tried to sit, slid to floor. He is angry and forgetful, all this is new. He had a headache today. He does not usually get headaches. She said that he has problems with abdominal symptoms, not all the time. Abdominal distention can cause difficulty breathing if abdominal distention is present. A large abdomen can prevent emphysematous lungs from fully expanding. No family history of lung cancer. Most of his relatives with heart disease, late in life, except for a brother who in his 40s from a stroke. The patient is one of 6 children. The patient is now getting out patient rehab for falls. He has never had PFTS, is on Breo and albuterol prescribed by his primary, and the staff at [facility] helps him with his inhaler. He has lots of sinus problems, sneezes often, constant dry cough, blames it on moving here, [place] in [place], [place]. He returned to [place] in 2021. His second 8+ years ago, he had no help, bought a house and was living alone before he went to assisted Living. He quit tobacco 10-15 years ago, new did not allow it. She 8-10 years ago. Today, he still has a cough, is using Cornet valve with good technique. He is using it on the 4th setting. This will eventually help clear secretions, and he can use it at home. He has mostly normal eosinophils on review of his labs, had a count of 400 in December 2024. Review of chest CT shows subpleural reticulations and a LLL nodule 13.5 x 9.7 mm. 04/19; Patient is seen at 13:15; Saturation is 91% on room air. Extended spectrum respiratory panel is positive for Entero / rhino virus. This may or may not be the cause of his exacerbation. There is no specific treatment for the common cold virus. He has been moved to room 301 in order to have a private room. Daughters are here, Josiane and Roseanne. He is in a pleasant mood, although his daughter s told me that he was angry this morning with the staff. They are worried that he has mental changes that are irreversible, and they are concerned that if he does not improve, [facility] will not take him at discharge. He has dementia that was diagnosed at least 5 years ago, per his daughters, when he was seen by Dr Sandoval when their brother was taking the patient for visits. He has not been treated for this. His acute fluctuating mentation this admission is consistent with delirium. His thyroid panel shows hyperthyroidism, discussed with Naty Granados NP. His CAT was 04/15, with contrast. His thyroid testing was obtained today, extremely low TSH < 0.015 which may be spuriously low due to the contrast on 04/15. His TSH was also low December 21, 0.260. Even if contrast on Apr 15 lowered TSH, it has been low. His free T4 is high, 2.33, was normal December 21, 2024 at 1.48. Naty Granados is going to address with methimazole, and his prednisone that he is taking for COPD is helping. I would not recommend starting a beta-zo because he is in the hospital with a COPD exacerbation and a beta-zo may make his COPD worse. Blood pressure has been 150s over 80s and pulse is been mainly under 100 so he does not have excessive adrenergic vital signs. Patient said this his breathing feels better, he is using his Cornet valve. Daughters tell me that he is short of breath even walking to the bathroom. He does not have chest pain. He is able to cough and get sputum up more easily than yesterday, however he may be swallowing sputum instead of coughing it out so he has not been able to tell us what color it is. I showed his daughters his chest CT, nodule, emphysematous changes and early fibrosis in the bases. 04/20; WBC lower 12.4; no family members at the bedside; he is sitting up in a chair, no delirium, brain is working better. He is pleasant, says his breathing feels better than on admission. He is not expectorating any significant sputum today. He is short of breath with exertion. He will need a walk study before discharge. His sodium is 125. His hyponatremia is been a chronic finding for over a year. 04/20 Echo with bubble study is negative for shunt, The atrial septum is normal. Bubble study is negative for [id number] shunt. 2. The left ventricle is normal in size and systolic function. The left ventricular ejection fraction is visually estimated to be 60-65%. 3. The right ventricle is normal in size and systolic function. Last night he tried to use the overnight oximetry but the fingertip probe broke. He had 6 minutes of recording, so the data may not be reliable but it did show even on 6 minutes a very high apnea-hypopnea index. Low saturation. We will have to repeat this. Alpha-1 lab sent 04/20. Pending. DATA: CTA chest PE abdomen pel HISTORY:Shortness of breath evaluate for PE, abdominal pain. COMPARISON: None. TECHNIQUE: Following the noncontrasted horticultural specialty grower, axial images of the thorax were obtained following infusion of 100 cc of Isovue 370. Post-processing on an independent workstation was performed to reconstruct MIP images for evaluation of the thoracic vasculature. FINDINGS: There is no pulmonary embolism, aortic dissection, thoracic aneurysm or pericardial fluid. Diffuse centrilobular emphysema noted. There is a 13.5 x 9.7 mm pulmonary nodule in the left lower lobe. Subpleural reticulation are noted. There is a intrafissural nodule within the right middle lobe measuring 5 mm. No pleural effusion or pneumothorax is noted. There is no axillary, mediastinal or hilar adenopathy. Review of bone windows demonstrates no osteoblastic or lytic lesions. IMPRESSION: There is no pulmonary embolism, aortic dissection, pericardial fluid or thoracic aneurysm. Emphysematous changes. 13.5 mm pulmonary nodule in the left lower lobe. CTA chest PE abdomen pel INDICATION:Shortness of breath evaluate for PE, abdominal rosy . COMPARISON: None. TECHNIQUE: Axial images of the abdomen and pelvis were obtained following infusion of 100 mL Isovue 370. Dose optimization technique was utilized. FINDINGS: The liver parenchyma is unremarkable. No intrahepatic mass or ductal dilatation is evident. The patient has had a cholecystectomy. The pancreas and spleen are normal in appearance. The adrenal glands are symmetric in size. The kidneys demonstrate symmetric uptake and excretion of contrast. No cystic mass is evident. There is no solid mass. There is no hydronephrosis. Evaluation of the stomach and bowel loops are limited due to lack of oral contrast. The appendix is not visualized however no secondary signs of appendicitis are identified. Bladder is distended. Lobulated enlarged prostate gland is noted. No free intraperitoneal fluid or air is evident. There is no significant retroperitoneal lymphadenopathy. The aorta, visceral vessels and renal arteries demonstrate normal caliber and patency. The lower thoracic and lumbar vertebrae are in normal alignment. IMPRESSION: No acute abnormality is noted in the abdomen and pelvis. Lobulated enlarged prostate gland is noted. Correlation with PSA is recommended. Review of Systems Review of Systems: All systems reviewed & are unremarkable except as noted in HPI and below Exam Narrative: GEN: Alert, not in distress. Saturation is 93% on room air. Sitting up in a chair, TV on with closed captions. NECK: Trachea is midline CHEST: Hyperinflated chest, equal air entry, symmetric excursion, clear breath sounds CV: Regular S1S2 no m/g/r Extremities : no clubbing, cyanosis, or edema. No calf tenderness. PSYCH: normal thought and speech, gait is not tested Objective Data Vital Signs Vital Signs: Vital Signs - 24 hr 04/19/25 19:22 04/19/25 20:48 04/19/25 20:58 Temperature 36.7 C Pulse Rate 81 76 Respiratory Rate 20 Blood Pressure 138/53 L Pulse Oximetry 94 Oxygen Delivery Room Air Fraction of Inspired Oxygen 04/19/25 21:00 04/19/25 21:03 04/19/25 21:09 Temperature Pulse Rate 89 88 Respiratory Rate 20 20 Blood Pressure Pulse Oximetry 90 Oxygen Delivery Room Air Fraction of Inspired Oxygen 21 04/20/25 02:02 04/20/25 02:11 04/20/25 04:34 Temperature 36.4 C L Pulse Rate 61 67 71 Respiratory Rate 20 20 20 Blood Pressure 149/82 H Pulse Oximetry 95 Oxygen Delivery Fraction of Inspired Oxygen 04/20/25 07:55 04/20/25 08:15 04/20/25 08:42 Temperature 36.1 C L Pulse Rate 68 82 Respiratory Rate 20 16 Blood Pressure 153/93 H Pulse Oximetry 93 Oxygen Delivery Room Air Fraction of Inspired Oxygen 04/20/25 09:38 04/20/25 12:20 04/20/25 13:11 Temperature Pulse Rate 83 62 70 Respiratory Rate 20 Blood Pressure Pulse Oximetry Oxygen Delivery Fraction of Inspired Oxygen 04/20/25 13:37 04/20/25 16:57 Temperature 35.8 C L Pulse Rate 54 L 64 Respiratory Rate 14 Blood Pressure 110/86 Pulse Oximetry 92 Oxygen Delivery Fraction of Inspired Oxygen Intake/Output Intake/Output: Intake & Output 04/17/25 04/18/25 04/19/25 04/20/25 23:59 23:59 23:59 23:59 Intake Total 1520 2820 3230 2053 Output Total 1200 400 Balance 1520 1620 3230 1653 Meds/Results Medications: Active Medications Generic Name Dose Route Start Last Admin Trade Name Freq PRN Reason Stop Dose Admin Amlodipine Besylate 5 mg 04/17/25 09:00 04/20/25 09:36 Amlodipine Besylate 5 Mg Tablet PO 5 mg DAILY CONNIE Administration Aspirin 81 mg 04/17/25 09:00 04/20/25 09:35 Aspirin 81 Mg Enteric Tablet PO 81 mg DAILY CONNIE Administration Atorvastatin Calcium 20 mg 04/17/25 09:00 04/20/25 09:35 Atorvastatin 20 Mg Tablet PO 20 mg DAILY CONNIE Administration Benzonatate 200 mg 04/17/25 08:37 Benzonatate 100 Mg Capsule PO Q8H PRN cough Buspirone HCl 5 mg 04/17/25 09:00 04/20/25 09:35 Buspirone Hcl 5 Mg Tablet PO 5 mg Q12HR CONNIE Administration Calcium Carbonate 200 mg 04/19/25 15:05 04/20/25 08:30 Calcium Carbonate (Tums) 500 Mg (200 Mg Elemental) PO 200 mg Q6H PRN Administration Indigestion Dextrose 12.5 gm 04/18/25 12:17 Dextrose 50% 25 Gm/50 Ml Syringe IV PUSH PRN PRN Hypoglycemia Protocol Docusate Sodium 100 mg 04/17/25 09:00 04/20/25 16:57 Docusate Sodium 100 Mg Capsule PO 100 mg BID CONNIE Administration Fluticasone Propionate 1 spray 04/17/25 09:00 04/20/25 16:58 Fluticasone Propionate 0.05% Na Spr 16 Gm Btl (*Bkc) NASAL 1 spray BID CONNIE Administration Glucagon 1 mg 04/18/25 12:17 Glucagon For Inj 1 Mg Vial IM PRN PRN Hypoglycemia Protocol Glucose 15 gm 04/18/25 12:17 Glucose Oral Gel 15 Gm Of Glucse In 37.5 Gm Tube PO PRN PRN Hypoglycemia Protocol Guaifenesin 1,200 mg 04/17/25 21:00 04/20/25 09:38 Guaifenesin 12 Hr 600 Mg Tabcr PO 1,200 mg Q12HR CONNIE Administration Sodium Chloride 1,000 mls @ 75 mls/hr 04/17/25 11:45 04/20/25 08:15 Normal Saline Iv IV CONT 75 mls/hr .[id number] CONNIE Administration Dextrose 1,000 mls @ 100 mls/hr 04/18/25 12:17 Dextrose 5% 1,000 Ml IVPB PRN PRN Hypoglycemia Protocol Insulin Aspart 2 - 5 units 04/18/25 17:00 04/20/25 17:00 Insulin Aspart (*Bkc) 100 Units/Ml SUB-Q Not Given TIDWM CONNIE Protocol Insulin Glargine 10 units 04/18/25 21:00 04/19/25 20:51 Insulin Glargine (*Bkc) 100 Units/Ml SUB-Q 10 units HS CONNIE Administration Ipratropium Orient 0.5 mg 04/17/25 14:00 04/20/25 13:10 Ipratropium Br 0.02% Inh Soln 0.5 Mg/2.5 Ml Vial INHALATION 0.5 mg Q6HRT CONNIE Administration Levofloxacin 750 mg 04/18/25 13:00 04/20/25 12:23 Levofloxacin 750 Mg Tablet PO 04/24/25 12:59 750 mg Q48H CONNIE Administration Losartan Potassium 50 mg 04/17/25 09:00 04/20/25 09:37 Losartan Potassium 50 Mg Tablet PO 50 mg DAILY CONNIE Administration Melatonin 3 mg 04/19/25 21:00 04/19/25 20:50 Melatonin 3 Mg Tablet PO 3 mg HS CONNIE Administration Methimazole 5 mg 04/20/25 09:00 04/20/25 09:35 Methimazole 5 Mg Tab PO 5 mg QAM CONNIE Administration Pantoprazole Sodium 40 mg 04/17/25 13:50 04/20/25 09:38 Pantoprazole 40 Mg Tablet PO 40 mg QAM CONNIE Administration Perflutren Lipid Microsphere 0 ml 04/20/25 07:48 Perflutren Lipid Microspheres 1.5 Ml Vial Diluted To 10 Ml Total Volume IV PUSH 04/22/25 15:49 ONCE PRN adequate visualization Protocol Polyethylene Glycol 17 gm 04/17/25 09:00 04/20/25 09:39 Polyethylene Glycol 3350 17 Gm Powd.Pack PO 17 gm QAM CONNIE Administration Prednisone 40 mg 04/18/25 08:00 04/20/25 08:30 Prednisone 20 Mg Tablet PO 40 mg DAILY@0800 CONNIE Administration Propranolol HCl 10 mg 04/19/25 17:00 04/20/25 16:57 Propranolol Hcl 10 Mg Tablet PO 10 mg QID CONNIE Administration Tamsulosin HCl 0.4 mg 04/18/25 21:00 04/19/25 20:48 Tamsulosin Hcl 0.4 Mg Capsule PO 0.4 mg HS CONNIE Administration Radiology Results: ITS Impressions Chest X-Ray 04/16/25 21:21 IMPRESSION: No acute pulmonary findings. Labs Labs: Laboratory Results - last 24 hr 04/19/25 04/19/25 04/20/25 05:13 19:19 05:06 WBC RBC Hgb Hct MCV MCH MCHC RDW Plt Count MPV Immature Gran % (Auto) Neut % (Auto) Lymph % (Auto) [place] % (Auto) Eos % (Auto) Baso % (Auto) Lymph # (Auto) [place] # (Auto) Eos # (Auto) Baso # (Auto) Abs Immat Gran (auto) Absolute Neuts (auto) Absolute Nucleated RBC Nucleated RBC % Sodium 125 L Potassium 4.2 Chloride 96 L Carbon Dioxide 24 Anion Gap 5 BUN 23 H Creatinine 0.81 Estim Creat Clear Calc 54 Estimated GFR > 60 Glucose 96 POC Capillary Glucose 284 H Calcium 8.5 Magnesium 2.2 Total Bilirubin 0.6 AST 29 ALT 28 Alkaline Phosphatase 98 Total Protein 6.2 L Albumin 3.2 L Vitamin B12 934.0 H Folate 5.3 Free T3 pg/mL Total T3 Syphilis IgG/IgM Ab Non-reactive 04/20/25 04/20/25 04/20/25 05:07 05:07 07:50 WBC 12.4 H RBC 3.99 L Hgb 12.2 L Hct 36.9 L MCV 92.5 MCH 30.6 MCHC 33.1 RDW 12.8 Plt Count 268 MPV 9.1 Immature Gran % (Auto) 2.3 H Neut % (Auto) 84.2 H Lymph % (Auto) 6.1 L [place] % (Auto) 6.4 Eos % (Auto) 0.7 Baso % (Auto) 0.3 Lymph # (Auto) 0.76 L [place] # (Auto) 0.8 H Eos # (Auto) 0.1 Baso # (Auto) 0.0 Abs Immat Gran (auto) 0.29 H Absolute Neuts (auto) 10.5 H Absolute Nucleated RBC 0.000 Nucleated RBC % 0.0 Sodium Potassium Chloride Carbon Dioxide Anion Gap BUN Creatinine Estim Creat Clear Calc Estimated GFR Glucose POC Capillary Glucose 128 H Calcium Magnesium Total Bilirubin AST ALT Alkaline Phosphatase Total Protein Albumin Vitamin B12 Folate Free T3 pg/mL Cancelled 2.92 Total T3 Cancelled Syphilis IgG/IgM Ab 04/20/25 04/20/25 04/20/25 11:13 11:56 16:04 WBC RBC Hgb Hct MCV MCH MCHC RDW Plt Count MPV Immature Gran % (Auto) Neut % (Auto) Lymph % (Auto) [place] % (Auto) Eos % (Auto) Baso % (Auto) Lymph # (Auto) [place] # (Auto) Eos # (Auto) Baso # (Auto) Abs Immat Gran (auto) Absolute Neuts (auto) Absolute Nucleated RBC Nucleated RBC % Sodium Potassium Chloride Carbon Dioxide Anion Gap BUN Creatinine Estim Creat Clear Calc Estimated GFR Glucose POC Capillary Glucose 162 H 147 H 174 H Calcium Magnesium Total Bilirubin AST ALT Alkaline Phosphatase Total Protein Albumin Vitamin B12 Folate Free T3 pg/mL Total T3 Syphilis IgG/IgM Ab
[2025-04-20] MEDS: TAMSULOSIN HCL 0.4 MG CAPSULE PO (21:41)
[2025-04-20] MEDS: INSULIN GLARGINE (*BKC) 100 UNITS/ML 10 UNITS SUB-Q (21:41)
[2025-04-20] MEDS: MELATONIN 3 MG TABLET PO (21:41)
[2025-04-21] VITALS (12 sets, daily range): BP systolic 126–155; BP diastolic 52–79; PULSE 63–84; RESP 18–20; TEMP 36.3–37.3; O2SAT 91–97
[2025-04-21] MEDS: IPRATROPIUM BR 0.02% INH SOLN 0.5 MG/2.5 ML VIAL INHALATION ×4 (02:14→20:21)
[2025-04-21 06:25] LABS: Hematocrit 36.8 % (42.0-52.0); Hemoglobin 12.2 g/dL (14.0-18.0); Immature Granulocyte Percent A 3.7 % (0-0.5); Lymphocytes Absolute Auto 0.77 K/mm3 (0.9-3.2); Mean Corpuscular HGB Conc 33.2 g/dl (32-36); Mean Corpuscular Hemoglobin 31.0 pg (26-34); Mean Corpuscular Volume 93.4 fl (80-100); Nucleated Red Blood Cells Absolute Auto 0.000 K/mm3 (0.0-0.012); Nucleated Red Blood Cells Perc 0.0 % (0.0-0.2); Platelet Count Result 271 k/mm3 (150-375); Red Blood Count 3.94 M/mm3 (4.6-6.20); White Blood Count 13.0 K/mm3 (4.5-10.0)
[2025-04-21 07:29] LABS: Alanine Aminotransferase 29 U/L (6-50); Albumin Level 3.1 g/dL (3.5-5.1); Alkaline Phosphatase 103 U/L (38-126); Anion Gap 3 mmol/L (4-12); Aspartate Amino Transferase 21 U/L (17-59); Bilirubin,Total 0.6 mg/dL (0.2-1.3); Blood Urea Nitrogen 20 mg/dL (9-20); Calcium 8.4 mg/dL (8.4-10.2); Carbon Dioxide 23 mmol/L (22-30); Chloride 96 mmol/L (98-107); Estimated CRCL calculation 59 ml/min; Estimated Glomerular Filt Rate > 60; Glucose 103 mg/dL (65-110); Magnesium 2.0 mg/dL (1.6-2.3); Potassium 4.2 mmol/L (3.4-5.0); Sodium 122 mmol/L (137-145); Total Protein 6.0 g/dL (6.3-8.2)
--- NOTE | 2025-04-21 08:42 | PM.IMPN ---
Progress Note: A&P Assessment and Plan (1) Dyspnea on exertion: Code(s): R06.09 - Other forms of dyspnea Status: Acute Assessment and Plan: -the patient's chest x-ray shows no acute cardiopulmonary. -his lungs sound clear. -the patient had an echo in 11/2024 which was read as the followingTechnically suboptimal study due to poor sonographic images. 2. Definity contrast administered improved wall motion interpretation. 3. Left ventricular chamber dimension is normal. 4. Left ventricular systolic function is normal, estimated at 60-65. 5. There is mild concentric increased left ventricular wall thickness. 6. The left ventricular diastolic function is grade I diastolic dysfunction. 7. E/e' 5 is not elevated. 8. Agitated saline injection with and without valsalva maneuver which was suboptimal as bubbles not seen in right ventricle. 9. There is mild aortic valve sclerosis. 10. There is trace aortic valve regurgitation. 11. There is mild mitral valve regurgitation. 12. There is mild tricuspid valve regurgitation. 13. No pulmonary hypertension, estimated pulmonary arterial systolic pressure is 30 mmHg. 14. There is trace pulmonic regurgitation. -he had a hs/abdomen/pelvis CTA on 04/15/2025There is no pulmonary embolism, aortic dissection, pericardial fluid or thoracic aneurysm. Emphysematous changes. 13.5 mm pulmonary nodule in the left lower lobe. No acute abnormality is noted in the abdomen and pelvis. Lobulated enlarged prostate gland is noted. Correlation with PSA is recommended. -the patient may need a pulmonary function test. -patient most likely has some component of emphysema please. -continue with the breathing treatments and steroids for now. -pulmonary consultation greatly be appreciated. -cardiac enzymes are negative. -exertional dyspnea unclear. The patient has had PEs in the past but was for PEs on the most recent CTA. He is also known to have AFib and SVT in the past. The patient may benefit from a continuous wireless architect. -continue with Luz Maria Thomson 04/17: Pt A&O x4 today but confused at sometimes. Daughter is at the bedside, states that this is somewhat his baseline but he has been waxing and waning. UA has not been performed to r/o UTI, Ordered today. -Pulm also saw pt today and with seeing nodules on CT, treating aggressively if it were PNA. PNA vs. scarring. IV Levaquin ordered as well as COPD exacerbation meds: prednisone, guifenesin, nebs, inhalers. -resp panel pending -cards consult pending -->May order echo depending on how sx progress/MALDONADO -WBC18, will continue to trend 04/18: Started Levofloxacin per pulmonary recommendations and continued prednisone 40 mg daily 04/19: WBC fell from 16/5 --> 13.9 today, continue abx & therapy Cards & pulm consulted: 04/18 cards consult: F/u for Hx of PVST outpt, pt has established maintenance dispatcher Dr. Jackson. Pt also with recent echo in November 2024, cards reviewed. Cards signing off. 04/20: WBC continuing to downtrend, 12.4 today. Continue abx & therapy. Lungs continue to sound clear. +Entero/rhino 04/21: WBC 13 today, continue Levaquin for PNA vs nodules. (2) Hyponatremia: Code(s): E87.1 - Hypo-osmolality and hyponatremia Status: Acute Assessment and Plan: Appears to be chronic, but Na 123 today, acute may be contributing to disorientation today -IVF NS ordered -Repeat BMP this evening -May consider fluid restriction and/or Na supplement if does not rise -Pending cards consult to r/u other potential risk factors -Kidneys function WDL for age -10/18: Improved to 126 with hydration; baseline is 127-133; ordered TSH, FENa 04/19: Na improved to 128 today, continue hydration, & daily labs. TSH low at <0.015, t4 high at 2.23 today -Started propranolol 10mg TID as well as methimazole 5mg daily, pt will need to f/u outpatient with an anaesthesiologist 04/20: Na back down to 125 today, continue hydration and labs -Implementing hyperthyroid treatment today, will follow to see if helps values, if not, may add on sodium tab -Ordered urine os and serum os today 04/21: Na 122. -Pending osm serum and urine -Trend labs x1 more day to determine Na stability and if supp is needed in the setting of new hyperthyroidism (3) Dementia: Code(s): F03.90 - Unspecified dementia, unspecified severity, without behavioral disturbance, psychotic disturbance, mood disturbance, and anxiety Status: Acute Assessment and Plan: No officially established but likely dx Ordered lab evaluation 04/1801/22/25 CT Brain: The ventricles are enlarged. The dilatation of the ventricles is proportional to the degree of sulcal prominence, not uncommon in the senescent brain. Decreased attenuation is identified within the periventricular white matter, likely secondary to microvascular ischemic disease, in a patient of this age. There is no mass, mass effect or midline shift. There is no abnormal extra-axial fluid collection or intracranial hemorrhage. Visualized paranasal sinuses are clear. The mastoid air cells are well aerated. No acute displaced fractures within the overlying cranium. Impression: No acute intracranial hemorrhage or suspicious mass effect. 04/19: -Neurological exam yielding no abnormalities. A&O x3 today, no disorientation upon my exam. -Daughter, Josiane, at the bedside today with grave concerns for a stroke, due to his AM and PM agitation and confusion. We had a thorough discussion of dementia vs acute stroke and treatment for both. Daughter insisting on brain MRI to r/o stroke because she is concerned that her dad will not be able to go back to his residence due to his memory / behavioral issues. MRI stroke ordered, may decide to get neuro involved depending on MRI results. -Daughter also reporting that pt has not had any sleep since here and is wondering if we could try melatonin at night time, will order 04/20: Oriented today. Tourist Adviser demeanor. 04/21: Oriented to his baseline today. (4) Benign prostatic hyperplasia: Code(s): N40.0 - Benign prostatic hyperplasia without lower urinary tract symptoms Status: Acute Assessment and Plan: 04/18 started tamsulosin (5) Hyperglycemia: Code(s): R73.9 - Hyperglycemia, unspecified Status: Acute Assessment and Plan: 04/18: Likely due to steroids with possible impaired glucose tolerance, A1c orderd 04/19: A1c, 5.8, appropriate for age (6) Anxiety: Code(s): F41.9 - Anxiety disorder, unspecified Status: Acute Assessment and Plan: -continue with buspirone (7) Depression: Code(s): F32.A - Depression, unspecified Status: Acute Assessment and Plan: -continue buspirone (8) Hypertension: Code(s): I10 - Essential (primary) hypertension Status: Acute Assessment and Plan: -continue losartan -daily BMP -continue with amlodipine 04/19: BP mildly more elevated today, will continue to monitor. Can also increase losartan dose if needed if persistent -Also starting propranolol for hyperthyroid today, this may help decrease BP some 04/20: -BP looks as if has returned to pts baseline, continue to monitor (9) Hyperlipidemia: Code(s): E78.5 - Hyperlipidemia, unspecified Status: Chronic Assessment and Plan: -continue with atorvastatin, continue to monitor liver enzymes (10) COPD (chronic obstructive pulmonary disease): Code(s): J44.9 - Chronic obstructive pulmonary disease, unspecified Status: Acute Assessment and Plan: See MALDONADO above (11) Hyperthyroidism without thyroid nodule: Code(s): E05.90 - Thyrotoxicosis, unspecified without thyrotoxic crisis or storm Status: Acute Assessment and Plan: Andrade TSH due to hyponatremia TSH low at <0.015, t4 high at 2.23 today, pending t3 -Started propranolol 10mg TID as well as methimazole 5mg daily, pt will need to f/u outpatient with an anaesthesiologist Plan Hyperthyroid management, hypoNa management (pending osm studies), facility placement tomorrow Time Spent With Patient Time: 45 minutes Subjective Date/time seen: 04/21/25 1432 Interval history: Pt with therapy upon my arrival. Pt denies any issues today and looks great ambulating, denies SOB. Baseline orientation. Daughter, Roseanne, at the bedside. Updated her and answered all questions. She agrees with the plan to f/u with new PCP for brain MRI unless she finds out documentation to allow MRI by tomorrow. Review of Systems Review of Systems: All systems reviewed & are unremarkable except as noted in HPI and below Constitutional: Constitutional: Reports as per HPI and Reports no additional constitutional complaints Eyes: Eyes: Reports as per HPI and Reports no additional eye complaints ENT: Reports system reviewed and no additional complaints, except as documented and Reports Normal hearing present Cardiovascular: Cardiovascular: Reports no additional cardiovascular complaints Respiratory: Respiratory: Reports as per HPI and Reports no additional respiratory complaints Gastrointestinal: Gastrointestinal: Reports as per HPI and Reports no additional gastrointestinal complaints Musculoskeletal: Musculoskeletal: Reports no additional musculoskeletal complaints Integumentary/Breasts: Skin/Breast: Reports system reviewed and no additional complaints, except as docu Neurologic: Reports system reviewed and no additional complaints, except as documented and Reports Normal hearing present Psychiatric: Psychiatric: Reports no additional psychiatric complaints and Reports as per HPI Hematologic/Lymphatic: Hematologic/Lymphatic: Reports no additional hematologic/lymphatic complaints Allergic/Immunologic: Allergic/Immunologic: Reports no additional allergic/immunologic complaints Exam Const: General: cooperative, healthy appearing, comfortable, no acute distress, well developed, awake, Physically active, average body habitus and well nourished Nutritional Appearance: average body habitus and well nourished Orientation/consciousness: oriented to person and patient oriented x3 HENMT: Head: normal to inspection, No palpable skull fracture present, normocephalic, atraumatic and abrasion Eyes: General: appearance normal, both eyes and all related structures Alignment and Position: alignment normal Periorbital: periorbital findings normal Neck: Neck: normal visual inspection and full ROM Chest: Chest palpation & inspection: normal inspection of the chest Resp: Effort & Inspection: normal respiratory effort Auscultation: clear to auscultation bilaterally Cardio: Palpation: normal PMI Rate: regular rate Rhythm: regular rhythm Heart sounds: S1 normal heart sound present and S2 normal heart sound present Peripheral pulses: Peripheral pulses 2+ throughout GI: Inspection: normal to inspection Auscultation: normal bowel sounds Rectal Exam: deferred : General: Yes no CVA tenderness Back/Spine/Pelvis: Back: no CVA tenderness Cervical Spine: cervical ROM normal Skin: General skin exam: normal color Lesions: no lesions Rashes: no rashes Trauma: no lacerations or abrasions Wounds: no wounds Neuro: General: oriented to person and patient oriented x3 Cranial nerves: Yes Normal hearing present Other: Oriented to person, place, and scenario, could not tell me what holiday was next or the current president Extrem: General: normal to inspection Right upper extremity: normal to inspection and shoulder/upper arm Left upper extremity: normal to inspection and shoulder/upper arm Right lower extremity: normal to inspection Left lower extremity: normal to inspection Psych: Appearance: grossly normal Mental Status: mental status grossly normal Speech and movement: Normal speech and movement present Affect: normal affect Objective Data Vital Signs Vital Signs: Vital Signs - 24 hr 04/20/25 09:38 04/20/25 12:20 04/20/25 13:11 Temperature Pulse Rate 83 62 70 Respiratory Rate 20 Blood Pressure Pulse Oximetry Oxygen Delivery 04/20/25 13:37 04/20/25 16:57 04/20/25 19:27 Temperature 96.4 F L 97.6 F Pulse Rate 54 L 64 74 Respiratory Rate 14 20 Blood Pressure 110/86 134/68 Pulse Oximetry 92 93 Oxygen Delivery 04/20/25 21:03 04/20/25 21:13 04/20/25 21:43 Temperature Pulse Rate 67 68 76 Respiratory Rate 18 18 Blood Pressure Pulse Oximetry Oxygen Delivery 04/20/25 21:53 04/21/25 02:14 04/21/25 02:25 Temperature Pulse Rate 66 69 Respiratory Rate 18 18 Blood Pressure Pulse Oximetry Oxygen Delivery Room Air 04/21/25 03:37 04/21/25 08:21 04/21/25 08:21 Temperature 97.6 F Pulse Rate 71 74 74 Respiratory Rate 18 20 20 Blood Pressure 155/64 H Pulse Oximetry 93 91 Oxygen Delivery Room Air Intake/Output Intake/Output: Intake & Output 04/18/25 04/19/25 04/20/25 04/21/25 23:59 23:59 23:59 23:59 Intake Total 2820 3230 3293 240 Output Total 1200 400 Balance 1620 3230 2893 240 Meds/Results Medications: Active Medications Generic Name Dose Route Start Last Admin Trade Name Freq PRN Reason Stop Dose Admin Amlodipine Besylate 5 mg 04/17/25 09:00 04/20/25 09:36 Amlodipine Besylate 5 Mg Tablet PO 5 mg DAILY CONNIE Administration Aspirin 81 mg 04/17/25 09:00 04/20/25 09:35 Aspirin 81 Mg Enteric Tablet PO 81 mg DAILY CONNIE Administration Atorvastatin Calcium 20 mg 04/17/25 09:00 04/20/25 09:35 Atorvastatin 20 Mg Tablet PO 20 mg DAILY CONNIE Administration Benzonatate 200 mg 04/17/25 08:37 Benzonatate 100 Mg Capsule PO Q8H PRN cough Buspirone HCl 5 mg 04/17/25 09:00 04/20/25 21:41 Buspirone Hcl 5 Mg Tablet PO 5 mg Q12HR CONNIE Administration Calcium Carbonate 200 mg 04/19/25 15:05 04/20/25 08:30 Calcium Carbonate (Tums) 500 Mg (200 Mg Elemental) PO 200 mg Q6H PRN Administration Indigestion Dextrose 12.5 gm 04/18/25 12:17 Dextrose 50% 25 Gm/50 Ml Syringe IV PUSH PRN PRN Hypoglycemia Protocol Docusate Sodium 100 mg 04/17/25 09:00 04/20/25 16:57 Docusate Sodium 100 Mg Capsule PO 100 mg BID CONNIE Administration Fluticasone Propionate 1 spray 04/17/25 09:00 04/20/25 16:58 Fluticasone Propionate 0.05% Na Spr 16 Gm Btl (*Bkc) NASAL 1 spray BID CONNIE Administration Glucagon 1 mg 04/18/25 12:17 Glucagon For Inj 1 Mg Vial IM PRN PRN Hypoglycemia Protocol Glucose 15 gm 04/18/25 12:17 Glucose Oral Gel 15 Gm Of Glucse In 37.5 Gm Tube PO PRN PRN Hypoglycemia Protocol Guaifenesin 1,200 mg 04/17/25 21:00 04/20/25 21:41 Guaifenesin 12 Hr 600 Mg Tabcr PO 1,200 mg Q12HR CONNIE Administration Sodium Chloride 1,000 mls @ 75 mls/hr 04/17/25 11:45 04/20/25 22:40 Normal Saline Iv IV CONT 75 mls/hr .[id number] CONNIE Administration Dextrose 1,000 mls @ 100 mls/hr 04/18/25 12:17 Dextrose 5% 1,000 Ml IVPB PRN PRN Hypoglycemia Protocol Insulin Aspart 2 - 5 units 04/18/25 17:00 04/20/25 17:00 Insulin Aspart (*Bkc) 100 Units/Ml SUB-Q Not Given TIDWM CONNIE Protocol Insulin Glargine 10 units 04/18/25 21:00 04/20/25 21:41 Insulin Glargine (*Bkc) 100 Units/Ml SUB-Q 10 units HS CONNIE Administration Ipratropium [place] 0.5 mg 04/17/25 14:00 04/21/25 08:21 Ipratropium Br 0.02% Inh Soln 0.5 Mg/2.5 Ml Vial INHALATION 0.5 mg Q6HRT CONNIE Administration Levofloxacin 750 mg 04/18/25 13:00 04/20/25 12:23 Levofloxacin 750 Mg Tablet PO 04/24/25 12:59 750 mg Q48H CONNIE Administration Losartan Potassium 50 mg 04/17/25 09:00 04/20/25 09:37 Losartan Potassium 50 Mg Tablet PO 50 mg DAILY CONNIE Administration Melatonin 3 mg 04/19/25 21:00 04/20/25 21:41 Melatonin 3 Mg Tablet PO 3 mg HS CONNIE Administration Methimazole 5 mg 04/20/25 09:00 04/20/25 09:35 Methimazole 5 Mg Tab PO 5 mg QAM CONNIE Administration Pantoprazole Sodium 40 mg 04/17/25 13:50 04/20/25 09:38 Pantoprazole 40 Mg Tablet PO 40 mg QAM CONNIE Administration Perflutren Lipid Microsphere 0 ml 04/20/25 07:48 Perflutren Lipid Microspheres 1.5 Ml Vial Diluted To 10 Ml Total Volume IV PUSH 04/22/25 15:49 ONCE PRN adequate visualization Protocol Polyethylene Glycol 17 gm 04/17/25 09:00 04/20/25 09:39 Polyethylene Glycol 3350 17 Gm Powd.Pack PO 17 gm QAM CONNIE Administration Prednisone 40 mg 04/18/25 08:00 04/20/25 08:30 Prednisone 20 Mg Tablet PO 40 mg DAILY@0800 CONNIE Administration Propranolol HCl 10 mg 04/19/25 17:00 04/20/25 21:43 Propranolol Hcl 10 Mg Tablet PO 10 mg QID CONNIE Administration Tamsulosin HCl 0.4 mg 04/18/25 21:00 04/20/25 21:41 Tamsulosin Hcl 0.4 Mg Capsule PO 0.4 mg HS CONNIE Administration Radiology Results: ITS Impressions Chest X-Ray 04/16/25 21:21 IMPRESSION: No acute pulmonary findings. Labs Labs: Laboratory Results - last 24 hr 04/20/25 04/20/25 04/20/25 11:13 11:56 16:04 WBC RBC Hgb Hct MCV MCH MCHC RDW Plt Count MPV Immature Gran % (Auto) Neut % (Auto) Lymph % (Auto) [place] % (Auto) Eos % (Auto) Baso % (Auto) Lymph # (Auto) [place] # (Auto) Eos # (Auto) Baso # (Auto) Abs Immat Gran (auto) Absolute Neuts (auto) Absolute Nucleated RBC Nucleated RBC % Sodium Potassium Chloride Carbon Dioxide Anion Gap BUN Creatinine Estim Creat Clear Calc Estimated GFR Glucose POC Capillary Glucose 162 H 147 H 174 H Calcium Magnesium Total Bilirubin AST ALT Alkaline Phosphatase Total Protein Albumin 04/20/25 04/21/25 04/21/25 19:25 05:30 07:11 WBC 13.0 H RBC 3.94 L Hgb 12.2 L Hct 36.8 L MCV 93.4 MCH 31.0 MCHC 33.2 RDW 12.6 Plt Count 271 MPV 9.4 Immature Gran % (Auto) 3.7 H Neut % (Auto) 83.2 H Lymph % (Auto) 5.9 L [place] % (Auto) 6.1 Eos % (Auto) 0.8 Baso % (Auto) 0.3 Lymph # (Auto) 0.77 L [place] # (Auto) 0.8 H Eos # (Auto) 0.1 Baso # (Auto) 0.0 Abs Immat Gran (auto) 0.48 H Absolute Neuts (auto) 10.8 H Absolute Nucleated RBC 0.000 Nucleated RBC % 0.0 Sodium 122 L Potassium 4.2 Chloride 96 L Carbon Dioxide 23 Anion Gap 3 L BUN 20 Creatinine 0.73 Estim Creat Clear Calc 59 Estimated GFR > 60 Glucose 103 POC Capillary Glucose 215 H Calcium 8.4 Magnesium 2.0 Total Bilirubin 0.6 AST 21 ALT 29 Alkaline Phosphatase 103 Total Protein 6.0 L Albumin 3.1 L 04/21/25 07:56 WBC RBC Hgb Hct MCV MCH MCHC RDW Plt Count MPV Immature Gran % (Auto) Neut % (Auto) Lymph % (Auto) [place] % (Auto) Eos % (Auto) Baso % (Auto) Lymph # (Auto) [place] # (Auto) Eos # (Auto) Baso # (Auto) Abs Immat Gran (auto) Absolute Neuts (auto) Absolute Nucleated RBC Nucleated RBC % Sodium Potassium Chloride Carbon Dioxide Anion Gap BUN Creatinine Estim Creat Clear Calc Estimated GFR Glucose POC Capillary Glucose 110 H Calcium Magnesium Total Bilirubin AST ALT Alkaline Phosphatase Total Protein Albumin Quality VTE Prophylaxis VTE prophylaxis: mechanical ordered
[2025-04-21] MEDS: LOSARTAN POTASSIUM 50 MG TABLET PO (08:55)
[2025-04-21] MEDS: DOCUSATE SODIUM 100 MG CAPSULE PO ×2 (08:56→17:21)
[2025-04-21] MEDS: FLUTICASONE PROPIONATE 0.05% NA SPR 16 GM BTL (*BKC) 1 SPRAY NASAL ×2 (08:56→17:21)
[2025-04-21] MEDS: PROPRANOLOL HCL 10 MG TABLET PO ×4 (08:56→20:04)
[2025-04-21] MEDS: guaiFENesin 12 HR 600 MG TABCR 1200 MG PO ×2 (08:56→20:03)
[2025-04-21] MEDS: ASPIRIN 81 MG ENTERIC TABLET PO (08:56)
[2025-04-21] MEDS: PANTOPRAZOLE 40 MG TABLET PO (08:56)
[2025-04-21] MEDS: ATORVASTATIN 20 MG TABLET PO (08:56)
[2025-04-21] MEDS: SODIUM CHLORIDE 0.9% IV 1,000 ML 75 ML IV CONT (17:20)
--- NOTE | 2025-04-21 18:47 | P.PNPL_ITS ---
Progress Note: A&P Assessment and Plan (1) Acute exacerbation of chronic obstructive pulmonary disease: Code(s): J44.1 - Chronic obstructive pulmonary disease with (acute) exacerbation Status: Acute Assessment and Plan: 04/17; He has diffuse bullous emphysema, smoked from [id number] at half a pack a day for total of 27 pack years. He uses a walker at home, has shortness of breath that limits him. He has not been on any supplemental O2. I have no PFTs. For CT scan on 12/31/2002 in our system shows bullous emphysema in the report. CT angiogram of the chest on 04/15/2025 shows moderate apical predominant centrilobular emphysema right apical scarring, right upper lobe ground-glass infiltrate and left lower lobe 9.7 times 13.4 mm nodule with surrounding infiltrate. ABG on 04/15 on room air 7.49/. Patient is maintained on Breo Ellipta and p.r.n. albuterol. He is not on home oxygen. 04/15/25: White blood cell count 13.3, eosinophils 0.4% equals 53 per micro L patient is unable to give me a reliable history but states he has been short of breath for 3 days. He presented to the emergency room on 04/15, and had a CT angiogram of the chest with no pulmonary embolism, moderate apical predominant centrilobular emphysema right upper lobe ground-glass infiltrate and left lower lobe nodule. ABG on room air 7.49/. Patient was treated for COPD exacerbation with bronchodilators and steroids. Patient re-presented to the emergency room on 04/16 with a white blood cell count 21.1, creatinine 1.05 and was admitted to the hospital. COVID, influenza, RSV RT PCR assay negative. 04/17/2025; Patient tells me he has no rest shortness of breath, his dyspnea on exertion is the same as yesterday. He denies fever, chills, rigors, phlegm production or hemoptysis. he is on room air with saturations 94%. He is afebrile. White blood cell count 18.0, creatinine 1.01. no wheezing on exam. he complains his phlegm does get stuck in his throat. Plan: I will treat patient for COPD exacerbation. He was started on Solu- Medrol and is currently on 60 mg IV q.6 hours, last dose at 9:37 a.m. this morning. He has no wheezing. I will discontinue Solu-Medrol place him on pre dnisone 40 starting tomorrow. He was placed on Advair 115-21 at 2 puffs q.12 hours. I will discontinue Advair and place him on ipratropium nebulizers Q 6 hours only as there is a possibility of an SVT last night. Patient has no infectious complaints but does have nodules with infiltrate and I will treat him with Levaquin 750 mg p.o. Q 48 hours for 7 days for creatinine clearance of 44. I will send a respiratory pathogen panel looking for etiology of a possible exacerbation. He complains phlegm it is getting stuck in his throat and I will place him on guaifenesin 1200 mg p.o. b.i.d. and also initiate a Cornet flutter valve. 04/21; COPD exacerbation due to enterovirus/rhinovirus; this was (+) on the extended respiratory pathogen panel. (2) Lung nodule: Code(s): R91.1 - Solitary pulmonary nodule Status: Acute Assessment and Plan: He has 13.5 x 9.7 mm pulmonary nodule in the left lower lobe, subpleural reticulations in the lung bases posteriorly, may be early pulmonary fibrosis. We will discuss urther work up when he is an out patient. This is an outpatient issue. He may benefit from chest CT or PET scan in 3 months after discharge. (3) Shortness of breath: Code(s): R06.02 - Shortness of breath Status: Resolved Assessment and Plan: He is very short of breath with minimal exertion, worse this admission compared to baseline. ABG on admission on room air = pH 7.48, pCO2 29, pO2 57, HCO3 21, sat 89.7%. (4) History of tobacco use: Code(s): Z87.891 - Personal history of nicotine dependence Status: Acute Assessment and Plan: He has a 27 pack year history of tobacco, 2473-3406 at half a pack a day, none x 2005. Plan plan: 1) No changes in his care at this time. Continue same medications, wean prednisone, oral Levaquin, guaifenesin, Tessalon perles/benzonatate, nebulized ipratropium. He is not on a beta agonist because he has atrial fibrillation, albuterol may aggravate his dysrhythmia. At home he was using Breo, LABA and ICS, and albuterol as a p.r.n. inhaler. 2) His saturation is sustained at 91-96%. His pO2 was 58 on admission on room air. Apr 20 Echo with bubble study is negative for shunt, The atrial septum is normal. Bubble study is negative for [id number] shunt. 2. The left ventricle is normal in size and systolic function. The left ventricular ejection fraction is visually estimated to be 60-65%. 3. The right ventricle is normal in size and systolic function. 3) 04/19 overnight he tried to use the overnight oximetry but the fingertip probe broke. He had 6 minutes of recording, so the data may not be reliable but it did show even on 6 minutes a very high apnea-hypopnea index. Low saturation. We will have to repeat this. 4) Alpha-1 lab sent 04/20. Pending. 5) Daughter Roseanne requests nebulizer at discharge. This is a device that can deliver the same classes of medications that he receives now, although a nebulizer may improve distribution compared to inhalation from an inhaler. He was on Breo prior to this admission, with an office visit that planned to switch him to a triple inhaler, Breztri, not initiated due to cost. 6) As an outpatient, he will come for an initial office visit in 2-3 weeks, see how he feels after recovering from this acute exacerbation of COPD, see if meds need to be adjusted; we will address his pulmonary nodule as this may represent a malignancy. Plan for out patient PFT, 6 Minute Walk when he is stable at baseline, and plan to refer to pulmonary rehab. This is to increase strength, balance, endurance, and quality of life, if he wants to do it and if someone can take him twice a week. We will discuss work up of his LLL nodule. He is almost 89, has dementia, not sure of he could tolerate a PET scan or even performing PFTs. Subjective Date/time seen: 04/21/25 18:47 Interval history: 04/17/2025: This is a new pulmonary consult for COPD exacerbation and lung nodules. 89-year-old with a history of dementia, atrial fibrillation and COPD. Patient has dementia. He misspelled his last name, does not know the place or year and does not know the mercerizing range feeder. I spoke to the daughter and she says he is more confused since he is been in the hospital. Regarding his COPD: Patient smoked from 3096-2961 at half a pack a day for total of 27 pack years. Patient states that he does walk with a walker and has shortness of breath that limits him. He is not on any oxygen. I have no PFTs. For CT scan on 12/31/2002 in our system shows bullous emphysema in the report. CT angiogram of the chest on 04/15/2025 shows moderate apical predominant centr ilobular emphysema right apical scarring, right upper lobe ground-glass infiltrate and left lower lobe 9.7 times 13.4 mm nodule with surrounding infiltrate. Patient is maintained on Breo Ellipta and p.r.n. albuterol. He is not on home oxygen. patient is unable to give me a reliable history but states he has been short of breath for 3 days. He presented to the emergency room on 04/15, and had a CT angiogram of the chest with no pulmonary embolism, moderate apical predominant centrilobular emphysema right upper lobe ground-glass infiltrate and left lower lobe nodule. ABG on room air 7.49. Patient was treated for COPD exacerbation with bronchodilators and steroids. Patient re-presented to the emergency room on 04/16 with a white blood cell count 21.1, creatinine 1.05 and was admitted to the hospital. 04/17/2025; Patient tells me he has no rest shortness of breath, his dyspnea on exertion is the same as yesterday. He denies fever, chills, rigors, phlegm production or hemoptysis. he is on room air with saturations 94%. He is afebrile. White blood cell count 18.0, creatinine 1.01. no wheezing on exam. 04/18/2025; 14:45 time of visit; patient is seen in follow up for COPD exacerbation and a pulmonary nodule 13.5 mm in the left lower lobe. He is on room air, sat is 90-94%. WBC is lower, 16.5k, 18k yesterday, 21.1k on admission with creatinine 1.01. He is on po Levaquin #1, prednisone 40 mg, guaifenesin, nebs, inhalers. His daughter Josiane is present, and I discussed her father's condition, showed her imaging, answered questions. She provided additional f ormation about his health. He has lived at [facility] for 2 months, after being in the hospital over the summer with poor breathing, dizziness, a minimal fall which his daughter said was due to dizziness on standing, tried to sit, slid to floor. He is angry and forgetful, all this is new. He had a headache today. He does not usually get headaches. She said that he has problems with abdominal symptoms, not all the time. Abdominal distention can cause difficulty breathing if abdominal distention is present. A large abdomen can prevent emphysematous lungs from fully expanding. No family history of lung cancer. Most of his relatives with heart disease, late in life, except for a brother who in his 40s from a stroke. The patient is one of 6 children. The patient is now getting out patient rehab for falls. He has never had PFTS, is on Breo and albuterol prescribed by his primary, and the staff at [facility] helps him with his inhaler. He has lots of sinus problems, sneezes often, constant dry cough, blames it on moving here, [place] the [place] setting in [place], [place]. He returned to [place] in 2021. His second 8+ years ago, he had no help, bought a house and was living alone before he went to assisted Living. He quit tobacco 10-15 years ago, new did not allow it. She 8-10 years ago. Today, he still has a cough, is using Cornet valve with good technique. He is using it on the 4th setting. This will eventually help clear secretions, and he can use it at home. He has mostly normal eosinophils on review of his labs, had a count of 400 in December 2024. Review of chest CT shows subpleural reticulations and a LLL nodule 13.5 x 9.7 mm. 04/19; Patient is seen at 13:15; Saturation is 91% on room air. Extended spectrum respiratory panel is positive for Entero / rhino virus. This may or may not be the cause of his exacerbation. There is no specific treatment for the common cold virus. He has been moved to room 301 in order to have a private room. Daughters are here, Josiane and Roseanne. He is in a pleasant mood, although his daughter s told me that he was angry this morning with the staff. They are worried that he has mental changes that are irreversible, and they are concerned that if he does not improve, [facility] will not take him at discharge. He has dementia that was diagnosed at least 5 years ago, per his daughters, when he was seen by Dr Sandoval when their brother was taking the patient for visits. He has not been treated for this. His acute fluctuating mentation this admission is consistent with delirium. His thyroid panel shows hyperthyroidism, discussed with Naty Granados CERTIFIED LOW VISION THERAPIST. His CAT was 04/15, with contrast. His thyroid testing was obtained today, extremely low TSH < 0.015 which may be spuriously low due to the contrast on 04/15. His TSH was also low December 21, 0.260. Even if contrast on Apr 15 lowered TSH, it has been low. His free T4 is high, 2.33, was normal December 21, 2024 at 1.48. Naty Granados is going to address with methimazole, and his prednisone that he is taking for COPD is helping. I would not recommend starting a beta-zo because he is in the hospital with a COPD exacerbation and a beta-zo may make his COPD worse. Blood pressure has been 150s over 80s and pulse is been mainly under 100 so he does not have excessive adrenergic vital signs. Patient said this his breathing feels better, he is using his Cornet valve. Daughters tell me that he is short of breath even walking to the bathroom. He does not have chest pain. He is able to cough and get sputum up more easily than yesterday, however he may be swallowing sputum instead of coughing it out so he has not been able to tell us what color it is. I showed his daughters his chest CT, nodule, emphysematous changes and early fibrosis in the bases. 04/20; WBC lower 12.4; no family members at the bedside; he is sitting up in a chair, no delirium, brain is working better. He is pleasant, says his breathing feels better than on admission. He is not expectorating any significant sputum today. He is short of breath with exertion. He will need a walk study before discharge. His sodium is 125. His hyponatremia is been a chronic finding for over a year. 04/20 Echo with bubble study is negative for shunt, The atrial septum is normal. Bubble study is negative for [id number] shunt. 2. The left ventricle is normal in size and systolic function. The left ventricular ejection fraction is visually estimated to be 60-65%. 3. The right ventricle is normal in size and systolic function. 04/21; Last night he tried to use the overnight oximetry but the fingertip probe broke. He had 6 minutes of recording, so the data may not be reliable but it did show even on 6 minutes a very high apnea-hypopnea index. Low saturation. We will have to repeat this. Alpha-1 lab sent 04/20, pending. DATA: CTA chest PE abdomen pel HISTORY:Shortness of breath evaluate for PE, abdominal pain. COMPARISON: None. TECHNIQUE: Following the noncontrasted mining machinery assembler, axial images of the thorax were obtained following infusion of 100 cc of Isovue 370. Post-processing on an independent workstation was performed to reconstruct MIP images for evaluation of the thoracic vasculature. FINDINGS: There is no pulmonary embolism, aortic dissection, thoracic aneurysm or pericardial fluid. Diffuse centrilobular emphysema noted. There is a 13.5 x 9.7 mm pulmonary nodule in the left lower lobe. Subpleural reticulation are noted. There is a intrafissural nodule within the right middle lobe measuring 5 mm. No pleural effusion or pneumothorax is noted. There is no axillary, mediastinal or hilar adenopathy. Review of bone windows demonstrates no osteoblastic or lytic lesions. IMPRESSION: There is no pulmonary embolism, aortic dissection, pericardial fluid or thoracic aneurysm. Emphysematous changes. 13.5 mm pulmonary nodule in the left lower lobe. CTA chest PE abdomen pel INDICATION:Shortness of breath evaluate for PE, abdominal rosy . COMPARISON: None. TECHNIQUE: Axial images of the abdomen and pelvis were obtained following infusion of 100 mL Isovue 370. Dose optimization technique was utilized. FINDINGS: The liver parenchyma is unremarkable. No intrahepatic mass or ductal dilatation is evident. The patient has had a cholecystectomy. The pancreas and spleen are normal in appearance. The adrenal glands are symmetric in size. The kidneys demonstrate symmetric uptake and excretion of contrast. No cystic mass is evident. There is no solid mass. There is no hydronephrosis. Evaluation of the stomach and bowel loops are limited due to lack of oral contrast. The appendix is not visualized however no secondary signs of appendicitis are identified. Bladder is distended. Lobulated enlarged prostate gland is noted. No free intraperitoneal fluid or air is evident. There is no significant retroperitoneal lymphadenopathy. The aorta, visceral vessels and renal arteries demonstrate normal caliber and patency. The lower thoracic and lumbar vertebrae are in normal alignment. IMPRESSION: No acute abnormality is noted in the abdomen and pelvis. Lobulated enlarged prostate gland is noted. Correlation with PSA is recommended. Review of Systems Review of Systems: All systems reviewed & are unremarkable except as noted in HPI and below Exam Narrative: GEN: Alert, not in distress. Saturation is 91-96% on room air. NECK: Trachea is midline CHEST: Hyperinflated chest, equal air entry, symmetric excursion, clear breath sounds CV: Regular S1S2 no m/g/r Extremities : no clubbing, cyanosis, or edema. No calf tenderness. PSYCH: normal thought and speech, gait is not tested Objective Data Vital Signs Vital Signs: Vital Signs - 24 hr 04/20/25 19:27 04/20/25 21:03 04/20/25 21:13 Temperature 36.4 C Pulse Rate 74 67 68 Respiratory Rate 20 18 18 Blood Pressure 134/68 Pulse Oximetry 93 Oxygen Delivery 04/20/25 21:43 04/20/25 21:53 04/21/25 02:14 Temperature Pulse Rate 76 66 Respiratory Rate 18 Blood Pressure Pulse Oximetry Oxygen Delivery Room Air 04/21/25 02:25 04/21/25 03:37 04/21/25 08:00 Temperature 36.4 C Pulse Rate 69 71 Respiratory Rate 18 18 Blood Pressure 155/64 H Pulse Oximetry 93 Oxygen Delivery Room Air 04/21/25 08:21 04/21/25 08:21 04/21/25 08:30 Temperature Pulse Rate 74 74 70 Respiratory Rate 20 20 20 Blood Pressure Pulse Oximetry 91 Oxygen Delivery Room Air 04/21/25 13:47 04/21/25 13:47 04/21/25 13:55 Temperature Pulse Rate 84 84 72 Respiratory Rate 20 20 20 Blood Pressure Pulse Oximetry 92 Oxygen Delivery Room Air 04/21/25 14:00 Temperature 36.3 C L Pulse Rate 83 Respiratory Rate 18 Blood Pressure 126/79 Pulse Oximetry 96 Oxygen Delivery Intake/Output Intake/Output: Intake & Output 04/18/25 04/19/25 04/20/25 04/21/25 23:59 23:59 23:59 23:59 Intake Total 2820 3230 3293 2194 Output Total 1200 400 Balance 1620 3230 2893 2194 Meds/Results Medications: Active Medications Generic Name Dose Route Start Last Admin Trade Name Freq PRN Reason Stop Dose Admin Amlodipine Besylate 5 mg 04/17/25 09:00 04/21/25 08:56 Amlodipine Besylate 5 Mg Tablet PO 5 mg DAILY CONNIE Administration Aspirin 81 mg 04/17/25 09:00 04/21/25 08:56 Aspirin 81 Mg Enteric Tablet PO 81 mg DAILY CONNIE Administration Atorvastatin Calcium 20 mg 04/17/25 09:00 04/21/25 08:56 Atorvastatin 20 Mg Tablet PO 20 mg DAILY CONNIE Administration Benzonatate 200 mg 04/17/25 08:37 Benzonatate 100 Mg Capsule PO Q8H PRN cough Buspirone HCl 5 mg 04/17/25 09:00 04/21/25 08:55 Buspirone Hcl 5 Mg Tablet PO 5 mg Q12HR CONNIE Administration Calcium Carbonate 200 mg 04/19/25 15:05 04/20/25 08:30 Calcium Carbonate (Tums) 500 Mg (200 Mg Elemental) PO 200 mg Q6H PRN Administration Indigestion Dextrose 12.5 gm 04/18/25 12:17 Dextrose 50% 25 Gm/50 Ml Syringe IV PUSH PRN PRN Hypoglycemia Protocol Docusate Sodium 100 mg 04/17/25 09:00 04/21/25 17:21 Docusate Sodium 100 Mg Capsule PO 100 mg BID CONNIE Administration Fluticasone Propionate 1 spray 04/17/25 09:00 04/21/25 17:21 Fluticasone Propionate 0.05% Na Spr 16 Gm Btl (*Bkc) NASAL 1 spray BID CONNIE Administration Glucagon 1 mg 04/18/25 12:17 Glucagon For Inj 1 Mg Vial IM PRN PRN Hypoglycemia Protocol Glucose 15 gm 04/18/25 12:17 Glucose Oral Gel 15 Gm Of Glucse In 37.5 Gm Tube PO PRN PRN Hypoglycemia Protocol Guaifenesin 1,200 mg 04/17/25 21:00 04/21/25 08:56 Guaifenesin 12 Hr 600 Mg Tabcr PO 1,200 mg Q12HR CONNIE Administration Sodium Chloride 1,000 mls @ 75 mls/hr 04/17/25 11:45 04/21/25 17:20 Normal Saline Iv IV CONT 75 mls/hr .[id number] CONNIE Administration Dextrose 1,000 mls @ 100 mls/hr 04/18/25 12:17 Dextrose 5% 1,000 Ml IVPB PRN PRN Hypoglycemia Protocol Insulin Aspart 2 - 5 units 04/18/25 17:00 04/21/25 17:01 Insulin Aspart (*Bkc) 100 Units/Ml SUB-Q Not Given TIDWM CONNIE Protocol Insulin Glargine 10 units 04/18/25 21:00 04/20/25 21:41 Insulin Glargine (*Bkc) 100 Units/Ml SUB-Q 10 units HS CONNIE Administration Ipratropium [place] 0.5 mg 04/17/25 14:00 04/21/25 13:46 Ipratropium Br 0.02% Inh Soln 0.5 Mg/2.5 Ml Vial INHALATION 0.5 mg Q6HRT CONNIE Administration Levofloxacin 750 mg 04/18/25 13:00 04/20/25 12:23 Levofloxacin 750 Mg Tablet PO 04/24/25 12:59 750 mg Q48H CONNIE Administration Losartan Potassium 50 mg 04/17/25 09:00 04/21/25 08:55 Losartan Potassium 50 Mg Tablet PO 50 mg DAILY CONNIE Administration Melatonin 3 mg 04/19/25 21:00 04/20/25 21:41 Melatonin 3 Mg Tablet PO 3 mg HS CONNIE Administration Methimazole 5 mg 04/20/25 09:00 04/21/25 08:56 Methimazole 5 Mg Tab PO 5 mg QAM CONNIE Administration Pantoprazole Sodium 40 mg 04/17/25 13:50 04/21/25 08:56 Pantoprazole 40 Mg Tablet PO 40 mg QAM CONNIE Administration Perflutren Lipid Microsphere 0 ml 04/20/25 07:48 Perflutren Lipid Microspheres 1.5 Ml Vial Diluted To 10 Ml Total Volume IV PUSH 04/22/25 15:49 ONCE PRN adequate visualization Protocol Polyethylene Glycol 17 gm 04/17/25 09:00 04/21/25 08:55 Polyethylene Glycol 3350 17 Gm Powd.Pack PO 17 gm QAM CONNIE Administration Prednisone 40 mg 04/18/25 08:00 04/21/25 08:56 Prednisone 20 Mg Tablet PO 40 mg DAILY@0800 CONNIE Administration Propranolol HCl 10 mg 04/19/25 17:00 04/21/25 17:21 Propranolol Hcl 10 Mg Tablet PO 10 mg QID CONNIE Administration Tamsulosin HCl 0.4 mg 04/18/25 21:00 04/20/25 21:41 Tamsulosin Hcl 0.4 Mg Capsule PO 0.4 mg HS CONNIE Administration Radiology Results: ITS Impressions Chest X-Ray 04/16/25 21:21 IMPRESSION: No acute pulmonary findings. Labs Labs: Laboratory Results - last 24 hr 04/20/25 04/20/25 04/21/25 05:07 19:25 05:30 WBC 13.0 H RBC 3.94 L Hgb 12.2 L Hct 36.8 L MCV 93.4 MCH 31.0 MCHC 33.2 RDW 12.6 Plt Count 271 MPV 9.4 Immature Gran % (Auto) 3.7 H Neut % (Auto) 83.2 H Lymph % (Auto) 5.9 L Mcdonald % (Auto) 6.1 Eos % (Auto) 0.8 Baso % (Auto) 0.3 Lymph # (Auto) 0.77 L Mcdonald # (Auto) 0.8 H Eos # (Auto) 0.1 Baso # (Auto) 0.0 Abs Immat Gran (auto) 0.48 H Absolute Neuts (auto) 10.8 H Absolute Nucleated RBC 0.000 Nucleated RBC % 0.0 Sodium Potassium Chloride Carbon Dioxide Anion Gap BUN Creatinine Estim Creat Clear Calc Estimated GFR Glucose POC Capillary Glucose 215 H Calcium Magnesium Total Bilirubin AST ALT Alkaline Phosphatase Total Protein Albumin Lyme Total Antibody Negative 04/21/25 04/21/25 04/21/25 07:11 07:56 11:23 WBC RBC Hgb Hct MCV MCH MCHC RDW Plt Count MPV Immature Gran % (Auto) Neut % (Auto) Lymph % (Auto) Mcdonald % (Auto) Eos % (Auto) Baso % (Auto) Lymph # (Auto) Mcdonald # (Auto) Eos # (Auto) Baso # (Auto) Abs Immat Gran (auto) Absolute Neuts (auto) Absolute Nucleated RBC Nucleated RBC % Sodium 122 L Potassium 4.2 Chloride 96 L Carbon Dioxide 23 Anion Gap 3 L BUN 20 Creatinine 0.73 Estim Creat Clear Calc 59 Estimated GFR > 60 Glucose 103 POC Capillary Glucose 110 H 112 H Calcium 8.4 Magnesium 2.0 Total Bilirubin 0.6 AST 21 ALT 29 Alkaline Phosphatase 103 Total Protein 6.0 L Albumin 3.1 L Lyme Total Antibody 04/21/25 16:10 WBC RBC Hgb Hct MCV MCH MCHC RDW Plt Count MPV Immature Gran % (Auto) Neut % (Auto) Lymph % (Auto) Mcdonald % (Auto) Eos % (Auto) Baso % (Auto) Lymph # (Auto) Mcdonald # (Auto) Eos # (Auto) Baso # (Auto) Abs Immat Gran (auto) Absolute Neuts (auto) Absolute Nucleated RBC Nucleated RBC % Sodium Potassium Chloride Carbon Dioxide Anion Gap BUN Creatinine Estim Creat Clear Calc Estimated GFR Glucose POC Capillary Glucose 129 H Calcium Magnesium Total Bilirubin AST ALT Alkaline Phosphatase Total Protein Albumin Lyme Total Antibody
[2025-04-21] MEDS: MELATONIN 3 MG TABLET PO (20:03)
[2025-04-21] MEDS: TAMSULOSIN HCL 0.4 MG CAPSULE PO (20:04)
[2025-04-21] MEDS: INSULIN GLARGINE (*BKC) 100 UNITS/ML 10 UNITS SUB-Q (20:09)
[2025-04-22] VITALS (16 sets, daily range): BP systolic 158–176; BP diastolic 70–76; PULSE 69–89; RESP 16–22; TEMP 36.8–36.9; O2SAT 90–95
[2025-04-22] MEDS: IPRATROPIUM BR 0.02% INH SOLN 0.5 MG/2.5 ML VIAL INHALATION ×4 (02:27→19:19)
[2025-04-22] MEDS: CALCIUM CARBONATE (TUMS) 500 MG (200 MG ELEMENTAL) PO (04:34)
[2025-04-22 06:55] LABS: Hematocrit 38.1 % (42.0-52.0); Hemoglobin 12.9 g/dL (14.0-18.0); Immature Granulocyte Percent A 5.1 % (0-0.5); Lymphocytes Absolute Auto 0.92 K/mm3 (0.9-3.2); Mean Corpuscular HGB Conc 33.9 g/dl (32-36); Mean Corpuscular Hemoglobin 31.2 pg (26-34); Mean Corpuscular Volume 92.0 fl (80-100); Nucleated Red Blood Cells Absolute Auto 0.000 K/mm3 (0.0-0.012); Nucleated Red Blood Cells Perc 0.0 % (0.0-0.2); Platelet Count Result 305 k/mm3 (150-375); Red Blood Count 4.14 M/mm3 (4.6-6.20); White Blood Count 12.5 K/mm3 (4.5-10.0)
[2025-04-22 07:30] LABS: Alanine Aminotransferase 35 U/L (6-50); Albumin Level 3.4 g/dL (3.5-5.1); Alkaline Phosphatase 143 U/L (38-126); Anion Gap 8 mmol/L (4-12); Aspartate Amino Transferase 27 U/L (17-59); Bilirubin,Total 0.6 mg/dL (0.2-1.3); Blood Urea Nitrogen 22 mg/dL (9-20); Calcium 8.4 mg/dL (8.4-10.2); Carbon Dioxide 22 mmol/L (22-30); Chloride 96 mmol/L (98-107); Estimated CRCL calculation 56 ml/min; Estimated Glomerular Filt Rate > 60; Glucose 86 mg/dL (65-110); Magnesium 2.2 mg/dL (1.6-2.3); Potassium 4.2 mmol/L (3.4-5.0); Sodium 126 mmol/L (137-145); Total Protein 6.4 g/dL (6.3-8.2)
[2025-04-22] MEDS: SODIUM CHLORIDE 0.9% IV 1,000 ML 75 ML IV CONT (08:08)
[2025-04-22] MEDS: LOSARTAN POTASSIUM 50 MG TABLET PO (08:31)
[2025-04-22] MEDS: DOCUSATE SODIUM 100 MG CAPSULE PO ×2 (08:31→16:25)
[2025-04-22] MEDS: ASPIRIN 81 MG ENTERIC TABLET PO (08:31)
[2025-04-22] MEDS: guaiFENesin 12 HR 600 MG TABCR 1200 MG PO ×2 (08:31→20:15)
[2025-04-22] MEDS: ATORVASTATIN 20 MG TABLET PO (08:32)
[2025-04-22] MEDS: FLUTICASONE PROPIONATE 0.05% NA SPR 16 GM BTL (*BKC) 1 SPRAY NASAL ×2 (08:32→16:25)
[2025-04-22] MEDS: PROPRANOLOL HCL 10 MG TABLET PO ×4 (08:32→20:15)
[2025-04-22] MEDS: PANTOPRAZOLE 40 MG TABLET PO (08:32)
--- NOTE | 2025-04-22 09:54 | P.PNIM_ITS ---
Progress Note: A&P Assessment and Plan (1) Altered mental status: Code(s): R41.82 - Altered mental status, unspecified Status: Acute Assessment and Plan: Spoke with family and at baseline, has a 3rd grade education. Lived in his own house until 4 months ago. Moved due to falling. 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 At baseline, need to speak slowly and use simple terms. days and years blend together Family reports last 3-4 days daughter report he's doing better but before that was getting family members confused, angry. Didn't know how to tell time. Today oriented x1 but pleasant b12 normal, TSH low as noted Family initially concerned for a stroke due to altered mental status, was unable to obtain an MRI due to prior stent placed in the . Records unavailable. 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 Will not repeat since overall exam improving. Defer to neurology --Altered mental status likely multifactorial 2/2 hyperthyroidism, hyponatremia, vascular disease, as well as infection --Consult neurology --Treating infection as noted --Daily asa, statin (2) Hyperthyroidism without thyroid nodule: Code(s): E05.90 - Thyrotoxicosis, unspecified without thyrotoxic crisis or storm Status: Acute Assessment and Plan: TSH low at <0.015, t4 high at 2.23 today, pending t3 Implementing hyperthyroid treatment today, will follow to see if helps values, if not, may add on sodium tab - 04/21 urine os and serum os pending -Started propranolol 10mg TID as well as methimazole 5mg daily, pt will need to f/u outpatient with an welding machine operator helper gas (3) Hyponatremia: Code(s): E87.1 - Hypo-osmolality and hyponatremia Status: Acute Assessment and Plan: Likely contributing to confusion Sodium low in the setting of hyponatremia, 04/21 122<125<128>122<126 --Treatment of hyperthyroidism as noted (4) Dyspnea on exertion: Code(s): R06.09 - Other forms of dyspnea Status: Acute Assessment and Plan: WBC elevated to 21 on 04/16, down to 12.5 (also on prednisone) +Entero/rhino Pulmonary following, appreciate recommendations --cards consult 04/18: F/u for Hx of PVST outpt, 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 Jackson. Pt also with recent echo in November 2024, cards reviewed. Cards signing off. --Continue levofloxacin & prednisone 40mg daily --Follow WBC (5) Benign prostatic hyperplasia: Code(s): N40.0 - Benign prostatic hyperplasia without lower urinary tract symptoms Status: Acute Assessment and Plan: 04/18 started tamsulosin --Check PSA --Urology follow up for enlarged prostate (6) Hyperglycemia: Code(s): R73.9 - Hyperglycemia, unspecified Status: Acute Assessment and Plan: Likely due to steroids with possible impaired glucose tolerance, A1c orderd 04/19: A1c, 5.8, appropriate for age --SSI --on Prednisone 40mg daily (7) Anxiety: Code(s): F41.9 - Anxiety disorder, unspecified Status: Acute Assessment and Plan: -continue with buspirone (8) Depression: Code(s): F32.A - Depression, unspecified Status: Acute Assessment and Plan: -continue buspirone (9) Hypertension: Code(s): I10 - Essential (primary) hypertension Status: Acute Assessment and Plan: Home meds: Losartan 50mg daily, Tamsulosin 0.5mg hs, amlodipine 5mg BP elevated 172/70 (10) Hyperlipidemia: Code(s): E78.5 - Hyperlipidemia, unspecified Status: Chronic Assessment and Plan: -continue with atorvastatin, continue to monitor liver enzymes (11) COPD (chronic obstructive pulmonary disease): Code(s): J44.9 - Chronic obstructive pulmonary disease, unspecified Status: Acute Assessment and Plan: See MALDONADO above Plan Hyperthyroid management, hypoNa management (pending osm studies), facility placement tomorrow Time Spent With Patient Time: 57 minutes Subjective Date/time seen: 04/22/25 09:54 Interval history: VSS Per discussion with daughter, confusion is acute on chronic this admission. He was found to have hyperthyroidism. He was living at home until 4 months ago, when they moved him to a facility for falls. Mental status had improved the last few days but per notes has been A&Ox3 and currently A&Ox1 Consult neurology WBC 12.5, Sodium 126, Alk phos 143 Pulmonary following shortness of breath, treating copd exacerbation, treating nodules/infiltrates with levaquin. 04/15 bladder distended and lobulated enlarged prostate note. Alk phos 143. Checking PSA and needs follow up with urology Check bladder scan. Needs urology follow up Exam Narrative: General - Awake and alert. No acute distress Eyes - PERRLA, EOM intact ENT - No thrush, No erythema Neck - No noticeable or palpable swelling Lymph Nodes - No lymphadenopathy Cardiovascular - RRR no m/r/g, no JVD Lungs: Clear to auscultation, No wheezing, no use of accessory muscles, no crackles Skin - Skin warm and dry, no wounds or rashes Abdomen - Normal bowel sounds, abdomen soft and nontender Extremities - No edema, cyanosis or clubbing Musculoskeletal - 5/5 strength, normal range of motion, no swollen or erythematous joints. Neurological ? Alert and oriented x 1, CN 2-12 grossly intact. Psych: Normal mood and affect Objective Data Vital Signs Vital Signs: Vital Signs - 24 hr 04/21/25 13:47 04/21/25 13:47 04/21/25 13:55 Temperature Pulse Rate 84 84 72 Respiratory Rate 20 20 20 Blood Pressure Pulse Oximetry 92 Oxygen Delivery Room Air Fraction of Inspired Oxygen 04/21/25 14:00 04/21/25 19:30 04/21/25 19:56 Temperature 97.3 F L 99.2 F Pulse Rate 83 81 Respiratory Rate 18 18 Blood Pressure 126/79 127/52 L Pulse Oximetry 96 97 Oxygen Delivery Room Air Fraction of Inspired Oxygen 04/21/25 20:04 04/21/25 20:21 04/21/25 20:21 Temperature Pulse Rate 81 63 63 Respiratory Rate 20 20 Blood Pressure Pulse Oximetry 94 Oxygen Delivery Room Air Fraction of Inspired Oxygen 21 04/21/25 20:35 04/22/25 02:21 04/22/25 02:21 Temperature Pulse Rate 67 69 69 Respiratory Rate 20 18 18 Blood Pressure Pulse Oximetry 93 Oxygen Delivery Room Air Fraction of Inspired Oxygen 04/22/25 02:35 04/22/25 03:22 04/22/25 08:00 Temperature 98.4 F Pulse Rate 70 73 Respiratory Rate 18 18 Blood Pressure 172/70 H Pulse Oximetry 95 Oxygen Delivery Room Air Fraction of Inspired Oxygen 04/22/25 08:32 04/22/25 08:34 04/22/25 08:37 Temperature Pulse Rate 73 83 Respiratory Rate 18 Blood Pressure Pulse Oximetry 90 Oxygen Delivery Room Air Fraction of Inspired Oxygen 04/22/25 08:40 Temperature Pulse Rate 89 Respiratory Rate 18 Blood Pressure Pulse Oximetry Oxygen Delivery Fraction of Inspired Oxygen Intake/Output Intake/Output: Intake & Output 04/19/25 04/20/25 04/21/25 04/22/25 23:59 23:59 23:59 23:59 Intake Total 3230 3293 2194 1597 Output Total 400 2 Balance 3230 2893 2194 1595 Meds/Results Medications: Active Medications Generic Name Dose Route Start Last Admin Trade Name Freq PRN Reason Stop Dose Admin Amlodipine Besylate 5 mg 04/17/25 09:00 04/22/25 08:32 Amlodipine Besylate 5 Mg Tablet PO 5 mg DAILY CONNIE Administration Aspirin 81 mg 04/17/25 09:00 04/22/25 08:31 Aspirin 81 Mg Enteric Tablet PO 81 mg DAILY CONNIE Administration Atorvastatin Calcium 20 mg 04/17/25 09:00 04/22/25 08:32 Atorvastatin 20 Mg Tablet PO 20 mg DAILY CONNIE Administration Benzonatate 200 mg 04/17/25 08:37 Benzonatate 100 Mg Capsule PO Q8H PRN cough Buspirone HCl 5 mg 04/17/25 09:00 04/22/25 08:32 Buspirone Hcl 5 Mg Tablet PO 5 mg Q12HR CONNIE Administration Calcium Carbonate 200 mg 04/19/25 15:05 04/22/25 04:34 Calcium Carbonate (Tums) 500 Mg (200 Mg Elemental) PO 200 mg Q6H PRN Administration Indigestion Dextrose 12.5 gm 04/18/25 12:17 Dextrose 50% 25 Gm/50 Ml Syringe IV PUSH PRN PRN Hypoglycemia Protocol Docusate Sodium 100 mg 04/17/25 09:00 04/22/25 08:31 Docusate Sodium 100 Mg Capsule PO 100 mg BID CONNIE Administration Fluticasone Propionate 1 spray 04/17/25 09:00 04/22/25 08:32 Fluticasone Propionate 0.05% Na Spr 16 Gm Btl (*Bkc) NASAL 1 spray BID CONNIE Administration Glucagon 1 mg 04/18/25 12:17 Glucagon For Inj 1 Mg Vial IM PRN PRN Hypoglycemia Protocol Glucose 15 gm 04/18/25 12:17 Glucose Oral Gel 15 Gm Of Glucse In 37.5 Gm Tube PO PRN PRN Hypoglycemia Protocol Guaifenesin 1,200 mg 04/17/25 21:00 04/22/25 08:31 Guaifenesin 12 Hr 600 Mg Tabcr PO 1,200 mg Q12HR CONNIE Administration Sodium Chloride 1,000 mls @ 75 mls/hr 04/17/25 11:45 04/22/25 08:08 Normal Saline Iv IV CONT 75 mls/hr .[id number] CONNIE Administration Dextrose 1,000 mls @ 100 mls/hr 04/18/25 12:17 Dextrose 5% 1,000 Ml IVPB PRN PRN Hypoglycemia Protocol Insulin Aspart 2 - 5 units 04/18/25 17:00 04/22/25 08:05 Insulin Aspart (*Bkc) 100 Units/Ml SUB-Q Not Given TIDWM CONNIE Protocol Insulin Glargine 10 units 04/18/25 21:00 04/21/25 20:09 Insulin Glargine (*Bkc) 100 Units/Ml SUB-Q 10 units HS CONNIE Administration Ipratropium [place] 0.5 mg 04/17/25 14:00 04/22/25 08:33 Ipratropium Br 0.02% Inh Soln 0.5 Mg/2.5 Ml Vial INHALATION 0.5 mg Q6HRT CONNIE Administration Levofloxacin 750 mg 04/18/25 13:00 04/20/25 12:23 Levofloxacin 750 Mg Tablet PO 04/24/25 12:59 750 mg Q48H CONNIE Administration Losartan Potassium 50 mg 04/17/25 09:00 04/22/25 08:31 Losartan Potassium 50 Mg Tablet PO 50 mg DAILY CONNIE Administration Melatonin 3 mg 04/19/25 21:00 04/21/25 20:03 Melatonin 3 Mg Tablet PO 3 mg HS CONNIE Administration Methimazole 5 mg 04/20/25 09:00 04/22/25 08:32 Methimazole 5 Mg Tab PO 5 mg QAM CONNIE Administration Pantoprazole Sodium 40 mg 04/17/25 13:50 04/22/25 08:32 Pantoprazole 40 Mg Tablet PO 40 mg QAM CONNIE Administration Perflutren Lipid Microsphere 0 ml 04/20/25 07:48 Perflutren Lipid Microspheres 1.5 Ml Vial Diluted To 10 Ml Total Volume IV PUSH 04/22/25 15:49 ONCE PRN adequate visualization Protocol Polyethylene Glycol 17 gm 04/17/25 09:00 04/22/25 08:31 Polyethylene Glycol 3350 17 Gm Powd.Pack PO 17 gm QAM CONNIE Administration Prednisone 30 mg 04/22/25 08:00 04/22/25 08:31 Prednisone 10 Mg Tablet PO 05/01/25 07:59 30 mg DAILY@0800 CONNIE Administration Taper Propranolol HCl 10 mg 04/19/25 17:00 04/22/25 08:32 Propranolol Hcl 10 Mg Tablet PO 10 mg QID CONNIE Administration Tamsulosin HCl 0.4 mg 04/18/25 21:00 04/21/25 20:04 Tamsulosin Hcl 0.4 Mg Capsule PO 0.4 mg HS CONNIE Administration Radiology Results: ITS Impressions Chest X-Ray 04/16/25 21:21 IMPRESSION: No acute pulmonary findings. Labs Labs: Laboratory Results - last 24 hr 04/20/25 04/21/25 04/21/25 05:07 11:23 16:10 WBC RBC Hgb Hct MCV MCH MCHC RDW Plt Count MPV Immature Gran % (Auto) Neut % (Auto) Lymph % (Auto) Taylor % (Auto) Eos % (Auto) Baso % (Auto) Lymph # (Auto) [place] # (Auto) Eos # (Auto) Baso # (Auto) Abs Immat Gran (auto) Absolute Neuts (auto) Absolute Nucleated RBC Nucleated RBC % Sodium Potassium Chloride Carbon Dioxide Anion Gap BUN Creatinine Estim Creat Clear Calc Estimated GFR Glucose POC Capillary Glucose 112 H 129 H Calcium Magnesium Total Bilirubin AST ALT Alkaline Phosphatase Total Protein Albumin [place] Total Antibody Negative 04/21/25 04/22/25 04/22/25 19:29 05:53 07:10 WBC 12.5 H RBC 4.14 L Hgb 12.9 L Hct 38.1 L MCV 92.0 MCH 31.2 MCHC 33.9 RDW 12.7 Plt Count 305 MPV 9.4 Immature Gran % (Auto) 5.1 H Neut % (Auto) 77.5 H Lymph % (Auto) 7.3 L Taylor % (Auto) 8.1 Eos % (Auto) 1.4 Baso % (Auto) 0.6 Lymph # (Auto) 0.92 [place] # (Auto) 1.0 H Eos # (Auto) 0.2 Baso # (Auto) 0.1 Abs Immat Gran (auto) 0.64 H Absolute Neuts (auto) 9.7 H Absolute Nucleated RBC 0.000 Nucleated RBC % 0.0 Sodium 126 L Potassium 4.2 Chloride 96 L Carbon Dioxide 22 Anion Gap 8 BUN 22 H Creatinine 0.77 Estim Creat Clear Calc 56 Estimated GFR > 60 Glucose 86 POC Capillary Glucose 132 H 109 H Calcium 8.4 Magnesium 2.2 Total Bilirubin 0.6 AST 27 ALT 35 Alkaline Phosphatase 143 H Total Protein 6.4 Albumin 3.4 L [place] Total Antibody Hospitalist MIPS Advance Care Plan I have confirmed that the patient's Advanced Care Plan is present, code status is documented, or surrogate decision maker is listed in patient medical record.: Yes Medication Reconciliation I have utilized all available resources to obtain, update and review the patients current medications (includes all prescriptions, OTC, herbals, cannabis, and nutritional supplements).: Yes
--- NOTE | 2025-04-22 14:19 | PC.NURSE ---
To CT per wheelchair.
[2025-04-22] MEDS: INSULIN ASPART (*BKC) 100 UNITS/ML SUB-Q (16:47)
[2025-04-22] MEDS: MELATONIN 3 MG TABLET PO (20:16)
[2025-04-22] MEDS: NYSTATIN 100,000 UNITS/ML SUSP 5 ML ORAL.SUSP PO (20:25)
[2025-04-22] MEDS: TAMSULOSIN HCL 0.4 MG CAPSULE PO (20:25)
[2025-04-22] MEDS: INSULIN GLARGINE (*BKC) 100 UNITS/ML 10 UNITS SUB-Q (22:46)
[2025-04-23] VITALS (14 sets, daily range): BP systolic 114–152; BP diastolic 61–89; PULSE 73–96; RESP 16–20; TEMP 36.3–37.1; O2SAT 93–96
[2025-04-23] MEDS: IPRATROPIUM BR 0.02% INH SOLN 0.5 MG/2.5 ML VIAL INHALATION ×4 (01:49→19:25)
[2025-04-23 06:02] LABS: Hematocrit 35.2 % (42.0-52.0); Hemoglobin 11.9 g/dL (14.0-18.0); Immature Granulocyte Percent A 4.4 % (0-0.5); Lymphocytes Absolute Auto 0.71 K/mm3 (0.9-3.2); Mean Corpuscular HGB Conc 33.8 g/dl (32-36); Mean Corpuscular Hemoglobin 30.4 pg (26-34); Mean Corpuscular Volume 90.0 fl (80-100); Nucleated Red Blood Cells Absolute Auto 0.000 K/mm3 (0.0-0.012); Nucleated Red Blood Cells Perc 0.0 % (0.0-0.2); Platelet Count Result 303 k/mm3 (150-375); Red Blood Count 3.91 M/mm3 (4.6-6.20); White Blood Count 12.9 K/mm3 (4.5-10.0)
[2025-04-23 06:23] LABS: Alanine Aminotransferase 33 U/L (6-50); Albumin Level 3.0 g/dL (3.5-5.1); Alkaline Phosphatase 130 U/L (38-126); Anion Gap 6 mmol/L (4-12); Aspartate Amino Transferase 29 U/L (17-59); Bilirubin,Total 0.5 mg/dL (0.2-1.3); Blood Urea Nitrogen 20 mg/dL (9-20); Calcium 8.2 mg/dL (8.4-10.2); Carbon Dioxide 23 mmol/L (22-30); Chloride 93 mmol/L (98-107); Estimated CRCL calculation 57 ml/min; Estimated Glomerular Filt Rate > 60; Glucose 108 mg/dL (65-110); Magnesium 1.9 mg/dL (1.6-2.3); Potassium 3.6 mmol/L (3.4-5.0); Sodium 122 mmol/L (137-145); Total Protein 5.7 g/dL (6.3-8.2)
[2025-04-23 06:53] LABS: Prostate Specific Antigen 2.2 ng/mL (< OR = 4.0)
[2025-04-23] MEDS: PROPRANOLOL HCL 10 MG TABLET PO ×4 (08:05→21:13)
[2025-04-23] MEDS: PANTOPRAZOLE 40 MG TABLET PO (08:05)
[2025-04-23] MEDS: LOSARTAN POTASSIUM 50 MG TABLET PO (08:05)
[2025-04-23] MEDS: guaiFENesin 12 HR 600 MG TABCR 1200 MG PO ×2 (08:05→21:14)
[2025-04-23] MEDS: ASPIRIN 81 MG ENTERIC TABLET PO (08:06)
[2025-04-23] MEDS: DOCUSATE SODIUM 100 MG CAPSULE PO ×2 (08:06→16:36)
[2025-04-23] MEDS: ATORVASTATIN 20 MG TABLET PO (08:06)
[2025-04-23] MEDS: NYSTATIN 100,000 UNITS/ML SUSP 5 ML ORAL.SUSP PO ×3 (08:07→16:36)
[2025-04-23] MEDS: FLUTICASONE PROPIONATE 0.05% NA SPR 16 GM BTL (*BKC) 1 SPRAY NASAL ×2 (08:14→16:36)
--- NOTE | 2025-04-23 08:45 | PM.IMPN ---
Progress Note: A&P Assessment and Plan (1) Altered mental status: Code(s): R41.82 - Altered mental status, unspecified Status: Acute Assessment and Plan: Spoke with family and at baseline, has a 3rd grade education. Lived in his own house until 4 months ago. Moved due to falling. 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 b12 was normal. TSH low At baseline, need to speak slowly and use simple terms. days and years blend together Family reports last 3-4 days daughter report he's doing better but before that was getting family members confused, angry. Didn't know how to tell time. Today oriented x1 but pleasant Family initially concerned for a stroke due to altered mental status, was unable to obtain an MRI due to prior stent placed in the . Records unavailable. 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 Will not repeat since overall exam improving. Defer to neurology --Altered mental status likely multifactorial 2/2 hyperthyroidism, hyponatremia, vascular disease, as well as infection --Consult neurology --Treating infection, hyponatremia as noted --Daily asa, statin --If able to obtain MRI, may also need pituitary imaging. T3 still pending (2) Hyperthyroidism without thyroid nodule: Code(s): E05.90 - Thyrotoxicosis, unspecified without thyrotoxic crisis or storm Status: Acute Assessment and Plan: TSH low at <0.015, t4 high at 2.23 --T3 cancelled, recheck TSH, T4 --Implementing hyperthyroid treatment today, will follow to see if helps values, if not, may add on sodium tab - 04/21 urine os and serum os pending -Started propranolol 10mg TID as well as methimazole 5mg daily, pt will need to f/u outpatient with an senior data warehouse architect (3) Hyponatremia: Code(s): E87.1 - Hypo-osmolality and hyponatremia Status: Acute Assessment and Plan: Likely contributing to confusion Sodium low in the setting of hyponatremia, 04/21 122<125<128>122<126. Down to 122 today --Treatment of hyperthyroidism as noted --NS@75/hr, recheck BMP this afternoon. 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 Jackson. Pt also with recent echo in November 2024, cards reviewed. Cards signing off. --Continue levofloxacin & prednisone 40mg daily, decreased to 30mg daily 04/22 --Follow WBC (5) Benign prostatic hyperplasia: Code(s): N40.0 - Benign prostatic hyperplasia without lower urinary tract symptoms Status: Acute Assessment and Plan: CT showed enlarged prostate PSA normal --04/18 started tamsulosin 0.4mg daily, increase to 0.8mg hs --Start dutasteride --Urology follow up for enlarged prostate --Bladder scans over 300 intermittently. Straight cathed, 800ml overnight. Continue to straight cath prn (6) Hyperglycemia: Code(s): R73.9 - Hyperglycemia, unspecified Status: Acute Assessment and Plan: Likely due to steroids with possible impaired glucose tolerance, A1c orderd 04/19: A1c, 5.8, appropriate for age --SSI --on Prednisone 40mg daily (7) Anxiety: Code(s): F41.9 - Anxiety disorder, unspecified Status: Acute Assessment and Plan: -continue with buspirone (8) Depression: Code(s): F32.A - Depression, unspecified Status: Acute Assessment and Plan: -continue buspirone (9) Hypertension: Code(s): I10 - Essential (primary) hypertension Status: Acute Assessment and Plan: Home meds: Losartan 50mg daily, Tamsulosin 0.4mg hs, amlodipine 5mg BP elevated 151/65 Increase tamsulosin to 0.4mg hs (10) Hyperlipidemia: Code(s): E78.5 - Hyperlipidemia, unspecified Status: Chronic Assessment and Plan: -continue with atorvastatin, continue to monitor liver enzymes (11) COPD (chronic obstructive pulmonary disease): Code(s): J44.9 - Chronic obstructive pulmonary disease, unspecified Status: Acute Assessment and Plan: See MALDONADO above Plan Hyperthyroid management, hypoNa management (pending osm studies), facility placement tomorrow Time Spent With Patient Time: 57 minutes Subjective Date/time seen: 04/23/25 08:45 Interval history: VSS. Sodium down to 122 today. Repeating this afternoon is 123 Repeating chest xray this afternoon, having increased sputum, mucomyst seemed to help today HALEY hoskushal for LE edema Exam Narrative: General - Awake and alert. No acute distress Eyes - PERRLA, EOM intact ENT - No thrush, No erythema Neck - No noticeable or palpable swelling Lymph Nodes - No lymphadenopathy Cardiovascular - RRR no m/r/g, no JVD Lungs: Clear to auscultation, No wheezing, no use of accessory muscles, no crackles Skin - Skin warm and dry, no wounds or rashes Abdomen - Normal bowel sounds, abdomen soft and nontender Extremities - No edema, cyanosis or clubbing Musculoskeletal - 5/5 strength, normal range of motion, no swollen or erythematous joints. Neurological ? Alert and oriented x 1, CN 2-12 grossly intact. Psych: Normal mood and affect Objective Data Vital Signs Vital Signs: Vital Signs - 24 hr 04/22/25 12:13 04/22/25 13:32 04/22/25 13:39 Temperature Pulse Rate 89 76 75 Respiratory Rate 18 18 Blood Pressure Pulse Oximetry Oxygen Delivery Fraction of Inspired Oxygen 04/22/25 14:00 04/22/25 16:25 04/22/25 19:20 Temperature 98.4 F Pulse Rate 75 75 78 Respiratory Rate 16 18 Blood Pressure 158/76 H Pulse Oximetry 92 Oxygen Delivery Fraction of Inspired Oxygen 04/22/25 19:20 04/22/25 19:28 04/22/25 20:00 Temperature Pulse Rate 82 81 Respiratory Rate 18 22 H Blood Pressure Pulse Oximetry 92 95 Oxygen Delivery Room Air Room Air Fraction of Inspired Oxygen 21 04/22/25 21:26 04/23/25 01:50 04/23/25 02:00 Temperature 98.3 F Pulse Rate 81 80 81 Respiratory Rate 22 H 18 18 Blood Pressure 176/70 H Pulse Oximetry 95 Oxygen Delivery Fraction of Inspired Oxygen 04/23/25 05:45 04/23/25 08:05 04/23/25 08:38 Temperature 98.1 F Pulse Rate 73 73 96 Respiratory Rate 20 20 Blood Pressure 151/65 H Pulse Oximetry 93 Oxygen Delivery Fraction of Inspired Oxygen Intake/Output Intake/Output: Intake & Output 04/20/25 04/21/25 04/22/25 04/23/25 23:59 23:59 23:59 23:59 Intake Total 3293 2194 2077 390 Output Total 400 2 1050 Balance 2893 2194 2070 -908 Meds/Results Medications: Active Medications Generic Name Dose Route Start Last Admin Trade Name Freq PRN Reason Stop Dose Admin Amlodipine Besylate 5 mg 04/17/25 09:00 04/23/25 08:06 Amlodipine Besylate 5 Mg Tablet PO 5 mg DAILY CONNIE Administration Aspirin 81 mg 04/17/25 09:00 04/23/25 08:06 Aspirin 81 Mg Enteric Tablet PO 81 mg DAILY CONNIE Administration Atorvastatin Calcium 20 mg 04/17/25 09:00 04/23/25 08:06 Atorvastatin 20 Mg Tablet PO 20 mg DAILY CONNIE Administration Benzonatate 200 mg 04/17/25 08:37 Benzonatate 100 Mg Capsule PO Q8H PRN cough Buspirone HCl 5 mg 04/17/25 09:00 04/23/25 08:05 Buspirone Hcl 5 Mg Tablet PO 5 mg Q12HR CONNIE Administration Calcium Carbonate 200 mg 04/19/25 15:05 04/22/25 04:34 Calcium Carbonate (Tums) 500 Mg (200 Mg Elemental) PO 200 mg Q6H PRN Administration Indigestion Dextrose 12.5 gm 04/18/25 12:17 Dextrose 50% 25 Gm/50 Ml Syringe IV PUSH PRN PRN Hypoglycemia Protocol Docusate Sodium 100 mg 04/17/25 09:00 04/23/25 08:06 Docusate Sodium 100 Mg Capsule PO 100 mg BID CONNIE Administration Fluticasone Propionate 1 spray 04/17/25 09:00 04/23/25 08:14 Fluticasone Propionate 0.05% Na Spr 16 Gm Btl (*Bkc) NASAL 1 spray BID CONNIE Administration Glucagon 1 mg 04/18/25 12:17 Glucagon For Inj 1 Mg Vial IM PRN PRN Hypoglycemia Protocol Glucose 15 gm 04/18/25 12:17 Glucose Oral Gel 15 Gm Of Glucse In 37.5 Gm Tube PO PRN PRN Hypoglycemia Protocol Guaifenesin 1,200 mg 04/17/25 21:00 04/23/25 08:05 Guaifenesin 12 Hr 600 Mg Tabcr PO 1,200 mg Q12HR CONNIE Administration Dextrose 1,000 mls @ 100 mls/hr 04/18/25 12:17 Dextrose 5% 1,000 Ml IVPB PRN PRN Hypoglycemia Protocol Insulin Aspart 2 - 5 units 04/18/25 17:00 04/22/25 16:47 Insulin Aspart (*Bkc) 100 Units/Ml SUB-Q 2 units TIDWM CONNIE Administration Protocol Insulin Glargine 10 units 04/18/25 21:00 04/22/25 22:46 Insulin Glargine (*Bkc) 100 Units/Ml SUB-Q 10 units HS CONNIE Administration Ipratropium [place] 0.5 mg 04/17/25 14:00 04/23/25 08:34 Ipratropium Br 0.02% Inh Soln 0.5 Mg/2.5 Ml Vial INHALATION 0.5 mg Q6HRT CONNIE Administration Levofloxacin 750 mg 04/18/25 13:00 04/22/25 12:13 Levofloxacin 750 Mg Tablet PO 04/24/25 12:59 750 mg Q48H CONNIE Administration Losartan Potassium 50 mg 04/17/25 09:00 04/23/25 08:05 Losartan Potassium 50 Mg Tablet PO 50 mg DAILY CONNIE Administration Melatonin 3 mg 04/19/25 21:00 04/22/25 20:16 Melatonin 3 Mg Tablet PO 3 mg HS CONNIE Administration Methimazole 5 mg 04/20/25 09:00 04/23/25 08:05 Methimazole 5 Mg Tab PO 5 mg QAM CONNIE Administration Nystatin 5 ml 04/22/25 21:00 04/23/25 08:07 Nystatin 100,000 Units/Ml Susp 5 Ml Oral.Susp PO 5 ml QID CONNIE Administration Pantoprazole Sodium 40 mg 04/17/25 13:50 04/23/25 08:05 Pantoprazole 40 Mg Tablet PO 40 mg QAM CONNIE Administration Polyethylene Glycol 17 gm 04/17/25 09:00 04/23/25 08:05 Polyethylene Glycol 3350 17 Gm Powd.Pack PO 17 gm QAM CONNIE Administration Prednisone 30 mg 04/22/25 08:00 04/23/25 08:06 Prednisone 10 Mg Tablet PO 05/01/25 07:59 30 mg DAILY@0800 CONNIE Administration Taper Propranolol HCl 10 mg 04/19/25 17:00 04/23/25 08:05 Propranolol Hcl 10 Mg Tablet PO 10 mg QID CONNIE Administration Tamsulosin HCl 0.4 mg 04/18/25 21:00 04/22/25 20:25 Tamsulosin Hcl 0.4 Mg Capsule PO 0.4 mg HS CONNIE Administration Radiology Results: ITS Impressions Chest X-Ray 04/16/25 21:21 IMPRESSION: No acute pulmonary findings. Head CT 04/22/25 14:39 Impression: 1.No acute intracranial abnormality. Labs Labs: Laboratory Results - last 24 hr 04/22/25 04/22/25 04/22/25 11:29 16:22 21:19 WBC RBC Hgb Hct MCV MCH MCHC RDW Plt Count MPV Immature Gran % (Auto) Neut % (Auto) Lymph % (Auto) [place] % (Auto) Eos % (Auto) Baso % (Auto) Lymph # (Auto) [place] # (Auto) Eos # (Auto) Baso # (Auto) Abs Immat Gran (auto) Absolute Neuts (auto) Absolute Nucleated RBC Nucleated RBC % Sodium Potassium Chloride Carbon Dioxide Anion Gap BUN Creatinine Estim Creat Clear Calc Estimated GFR Glucose POC Capillary Glucose 104 230 H 176 H Calcium Magnesium Total Bilirubin AST ALT Alkaline Phosphatase Total Protein Albumin Prostate Specific Ag 04/23/25 05:19 WBC 12.9 H RBC 3.91 L Hgb 11.9 L Hct 35.2 L MCV 90.0 MCH 30.4 MCHC 33.8 RDW 12.6 Plt Count 303 MPV 9.1 Immature Gran % (Auto) 4.4 H Neut % (Auto) 82.8 H Lymph % (Auto) 5.5 L [place] % (Auto) 6.4 Eos % (Auto) 0.7 Baso % (Auto) 0.2 Lymph # (Auto) 0.71 L [place] # (Auto) 0.8 H Eos # (Auto) 0.1 Baso # (Auto) 0.0 Abs Immat Gran (auto) 0.57 H Absolute Neuts (auto) 10.7 H Absolute Nucleated RBC 0.000 Nucleated RBC % 0.0 Sodium 122 L Potassium 3.6 Chloride 93 L Carbon Dioxide 23 Anion Gap 6 BUN 20 Creatinine 0.76 Estim Creat Clear Calc 57 Estimated GFR > 60 Glucose 108 POC Capillary Glucose Calcium 8.2 L Magnesium 1.9 Total Bilirubin 0.5 AST 29 ALT 33 Alkaline Phosphatase 130 H Total Protein 5.7 L Albumin 3.0 L Prostate Specific Ag 2.2 Quality VTE Prophylaxis VTE prophylaxis: mechanical ordered Hospitalist MIPS Advance Care Plan I have confirmed that the patient's Advanced Care Plan is present, code status is documented, or surrogate decision maker is listed in patient medical record.: Yes Medication Reconciliation I have utilized all available resources to obtain, update and review the patients current medications (includes all prescriptions, OTC, herbals, cannabis, and nutritional supplements).: Yes
[2025-04-23] MEDS: SODIUM CHLORIDE 0.9% IV 1,000 ML 100 ML IV CONT ×2 (09:21→15:57)
[2025-04-23] MEDS: ACETYLCYSTEINE 20% INHAL SOLN 800 MG/4 ML VIAL 200 MG INHALATION (09:25)
[2025-04-23 14:11] LABS: Anion Gap 7 mmol/L (4-12); Blood Urea Nitrogen 23 mg/dL (9-20); Calcium 7.9 mg/dL (8.4-10.2); Carbon Dioxide 22 mmol/L (22-30); Chloride 94 mmol/L (98-107); Estimated CRCL calculation 49 ml/min; Estimated Glomerular Filt Rate > 60; Glucose 214 mg/dL (65-110); Potassium 3.8 mmol/L (3.4-5.0); Sodium 123 mmol/L (137-145)
--- NOTE | 2025-04-23 14:28 | WPDNEURCNPN ---
Assessment and Plan Assessment and plan (1) Cognitive impairment: Code(s): R41.89 - Other symptoms and signs involving cognitive functions and awareness Status: Chronic Assessment and Plan: The patient may have some degree of vascular dementia. MRI of the brain performed on 12/21/2024 was reviewed which shows severe white matter changes. The ventricles also appeared prominent to the extent that possibility of mild hydrocephalus could be a consideration however this could be due to the loss of tissue due to cerebrovascular disease that hydrocephalus ex vacuo can present in a similar fashion. Patient seems to aware of when the need to go to restroom and is able to walk with a walker. furthermore there could be a component of acute metabolic encephalopathy in addition to underlying dementia. This may require some follow-up As his medical condition improved. (2) Tremor: Code(s): R25.1 - Tremor, unspecified Status: Chronic Assessment and Plan: the findings do raise possibility of mild Parkinson's disease since the tremor seems to be less when he stretches his hands out. There was a questionable cogwheeling. This will require some further evaluation once he gets seem better from his current medical problems. (3) Atrial fibrillation: Code(s): I48.91 - Unspecified atrial fibrillation Status: Acute (4) Cerebrovascular disease: Code(s): I67.9 - Cerebrovascular disease, unspecified Status: Acute Assessment and Plan: MRI of the brain performed on 12/21/2024 shows severe white matter changes however no acute changes were noted. On this particula admission a CT scan of brain was performed which did not show any significant abnormal findings or acute findings nevertheless the ventricles are prominent. CT angiogram of the head and neck were performed on 12/19/2024 which shows a stenosis of right vertebral artery his other vessels were within acceptable normal limits. (5) Hearing loss, bilateral: Code(s): H91.93 - Unspecified hearing loss, bilateral Status: Acute (6) Acute exacerbation of chronic obstructive pulmonary disease: Code(s): J44.1 - Chronic obstructive pulmonary disease with (acute) exacerbation Status: Acute Assessment and Plan: This appears to remain reason for for his admission this time. Plan On admission his white cell count was elevated at 21.3 and has now come down to 12.9. His serum sodium is still at 1:23 a.m.. He has had chronic hyponatremia however on 09/2024 it was as high as 133. Vitamin B12 and folic acid level were done On 04/19/2025 and these were within normal limit. The appearance of the ventricle does raise possibility of mild hydrocephalus however it could also be hydrocephalus ex vacuo due to the loss of tissue around the ventricles due to cerebrovascular disease. He does have significant cerebrovascular disease which can also lead to vascular dementia. He may have early Parkinson's disease. Given his current situation I would suggest an evaluation 1 month after discharge in my office to make further assessment. He will require further evaluation with a he has of amplifier or hearing aid. In the meanwhile physical therapy and treatment of his acute or current medical problems may be helpful. Given his age and state of life you may consider starting on Namenda 5 mg a day gradually increase the dose to 10 mg twice a day. We can check his lipid profile. Patient currently on atorvastatin 20 mg a day and aspirin 81 mg a day. Consult date: 04/23/25 HPI: Noé Davila is a 89 year old male Is being evaluated from neurologic point of view for altered mental status. Patient has history of chronic obstructive pulmonary disease and was admitted to the hospital with shortness of breath. His serum sodium was 123. CT scan of brain was performed which did not show any significant abnormalities. An MRI of the brain performed on 12/21/2024 and shows severe white matter disease. A CT angiogram of the head and neck were performed on 12/19/2024 has shown right vertebral artery stenosis however no other significant abnormality is seen. I reviewed the films and it was noted that the ventricles are also quite prominent. This will be further discussed below. Patient is hard of hearing and relatively poor historian. In the told me he lives by himself and has 2 daughters. He was unable to follow 2 step commands and answer to many questions some of that is probably because he could not understand despite several attempts to try and get through to him. The nursing staff also noted that he has been confused. Patient was admitted to the hospital on 04/16/2025. There is also history of atrial fibrillation . The patient used to smoke but I believe he no longer smokes. Review of his old records reviewed that he was admitted to the hospital in April 2024 and was seen by neurosurgeon for a sacral fracture. Apparently that happened a month before he was seen by the neurosurgeon. Review of Systems Review of Systems: Patient also hard of hearing. ROS unobtainable: Yes unobtainable due to mental status [facility] Past Medical History Medical History (Updated 04/23/25 @ 14:40 by Rut Anne MD) Cerebrovascular disease PSVT (paroxysmal supraventricular tachycardia) Pulmonary emboli Peptic ulcer disease History of atrial fibrillation Lumbar radiculopathy Lumbar spondylosis Peripheral vascular disease Chronic obstructive pulmonary disease Benign prostatic hyperplasia Depression Seasonal allergies Anemia Hypertension Atrial fibrillation Anxiety Constipation Dementia Hyperlipidemia Surgical History Surgical History H/O transurethral resection of prostate H/O cardiac catheterization H/O angioplasty Iliac vessels H/O cataract extraction Status post peripheral artery angioplasty with insertion of stent History of cholecystectomy Family History Family History Sibling CHF (congestive heart failure) Other Unknown family medical history Social History Social History Social History: He is a . He is Faith. 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 Code status: DNR Smoking packs per day: 1 Smoking cigarettes per day: 20.0 Smoking status: Former smoker Second hand tobacco smoke exposure: No Alcohol intake: never Drinks per week: 1 Substance use: never Substance use type: does not use Do You Feel Safe in your Home?: Yes Lack of Transportation: No Lack of Food: Never True Current Housing: I Have Housing Concerned About Future Housing: No Difficulty Paying Gas/Electric Bills: No Difficulty Paying for Meds: No Currently Unemployed: No Education: Grade School Difficulty w/ Childcare or Family Care: No Living arrangements: assisted living Occupation/Education: retired Gender identity (if verbalized by the patient): Male Sexual Orientation (if Verbalized by the Patient): Straight or Heterosexual Spiritual care concerns: Yes Agree to blood products: Yes Meds Home Medications and Allergies Home Medications ?Medication ?Instructions ?Recorded ?Confirmed ?Type aspirin 81 mg tablet,delayed 81 mg PO DAILY 12/12/21 04/17/25 History release polyethylene glycol 3350 17 gram 17 g PO QAM #7 ea 03/15/24 04/17/25 Rx oral powder packet (Miralax) amlodipine 5 mg tablet 5 mg PO DAILY #30 tabs 12/24/24 04/17/25 Rx losartan 100 mg tablet 50 mg PO DAILY 01/22/25 04/17/25 History buspirone 5 mg tablet 5 mg PO Q12HR #60 tabs 01/24/25 04/17/25 Rx docusate sodium 100 mg capsule 100 mg PO BID #30 caps 01/24/25 04/17/25 Rx atorvastatin 40 mg tablet (Lipitor) 20 mg (1/2 x 40 mg) PO DAILY #90 03/04/25 04/17/25 Rx tabs albuterol sulfate 90 mcg/actuation 2 puff inhalation Q4H PRN 03/24/25 04/17/25 History aerosol inhaler (Ventolin HFA) shortness of breath or wheezing benzonatate 200 mg capsule 200 mg PO .Q8HR PRN cough 04/16/25 04/17/25 History fluticasone furoate 100 1 inh inhalation DAILY 04/16/25 04/17/25 History mcg-vilanterol 25 mcg/dose inhalation powder (Breo Ellipta) fluticasone propionate 50 1 spray intranasal BID 04/16/25 04/17/25 History mcg/actuation nasal spray,suspension (24 Hour Allergy Relief) Allergies Allergy/AdvReac Type Severity Reaction Status Date / Time No Known Allergies Allergy Verified 04/17/25 00:42 Vital Signs Vital Signs - 24 hr 04/22/25 16:25 04/22/25 19:20 04/22/25 19:20 Temperature Pulse Rate 75 78 Respiratory Rate 18 Blood Pressure Pulse Oximetry 92 Oxygen Delivery Room Air Fraction of Inspired Oxygen 04/22/25 19:28 04/22/25 20:00 04/22/25 21:26 Temperature 98.3 F Pulse Rate 82 81 81 Respiratory Rate 18 22 H 22 H Blood Pressure 176/70 H Pulse Oximetry 95 95 Oxygen Delivery Room Air Fraction of Inspired Oxygen 21 04/23/25 01:50 04/23/25 02:00 04/23/25 05:45 Temperature 98.1 F Pulse Rate 80 81 73 Respiratory Rate 18 18 20 Blood Pressure 151/65 H Pulse Oximetry 93 Oxygen Delivery Fraction of Inspired Oxygen 04/23/25 08:00 04/23/25 08:05 04/23/25 08:38 Temperature Pulse Rate 73 96 Respiratory Rate 20 Blood Pressure Pulse Oximetry Oxygen Delivery Room Air Fraction of Inspired Oxygen 04/23/25 09:28 04/23/25 12:25 Temperature Pulse Rate 93 93 Respiratory Rate 20 Blood Pressure Pulse Oximetry Oxygen Delivery Fraction of Inspired Oxygen Exam Narrative: Fully conscious alert. No aphasia or dysarthria. Patient is partially hard of hearing. Examination head and neck shows no evidence of external trauma. No nuchal rigidity. Cranial nerves extraocular movements are intact. Visual ayala by confrontation were grossly within normal range. No facial asymmetry. Tongue was midline. Motor system moving both upper lower limbs however he appears to have tremor probably at rest which seemed to decrease when he outstretched his hands possible mum minimal cogwheeling. Sensory examination could not be reliably performed. Moderate edema both legs lower limbs. He did not cooperate very well for formal motor neurological examination of the lower limbs. 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 he was able to walk with a walker and he seems to slow. we cannot rule out possibility of partial footdrop on the right side. Results Labs 04/23/25 05:19 04/23/25 13:54 Labs: Short CBC 04/23/25 Range/Units 05:19 WBC 12.9 H (4.5-10.0) K/mm3 Hgb 11.9 L (14.0-18.0) g/dL Hct 35.2 L (42.0-52.0) % Plt Count 303 (150-375) k/mm3 BMP 04/23/25 04/23/25 05:19 13:54 Sodium 122 L 123 L Potassium 3.6 3.8 Chloride 93 L 94 L Carbon Dioxide 23 22 BUN 20 23 H Creatinine 0.76 0.90 Glucose 108 214 H Calcium 8.2 L 7.9 L Liver Function 04/23/25 Range/Units 05:19 Total Bilirubin 0.5 (0.2-1.3) mg/dL AST 29 (17-59) U/L ALT 33 (6-50) U/L Alkaline Phosphatase 130 H (38-126) U/L Albumin 3.0 L (3.5-5.1) g/dL
[2025-04-23] MEDS: INSULIN GLARGINE (*BKC) 100 UNITS/ML 10 UNITS SUB-Q (21:13)
[2025-04-23] MEDS: TAMSULOSIN HCL 0.4 MG CAPSULE 0.8 MG PO (21:14)
[2025-04-23] MEDS: MELATONIN 3 MG TABLET PO (21:14)
[2025-04-24] VITALS (15 sets, daily range): BP systolic 116–164; BP diastolic 52–74; PULSE 72–92; RESP 20–28; TEMP 36.5–37.1; O2SAT 92–94
[2025-04-24 01:08] LABS: Osmolality, Urine 663 mOsmol/kg (.)
[2025-04-24] MEDS: IPRATROPIUM BR 0.02% INH SOLN 0.5 MG/2.5 ML VIAL INHALATION ×3 (03:24→19:42)
[2025-04-24 06:29] LABS: Hematocrit 36.3 % (42.0-52.0); Hemoglobin 12.2 g/dL (14.0-18.0); Immature Granulocyte Percent A 4.8 % (0-0.5); Lymphocytes Absolute Auto 0.77 K/mm3 (0.9-3.2); Mean Corpuscular HGB Conc 33.6 g/dl (32-36); Mean Corpuscular Hemoglobin 31.0 pg (26-34); Mean Corpuscular Volume 92.1 fl (80-100); Nucleated Red Blood Cells Absolute Auto 0.000 K/mm3 (0.0-0.012); Nucleated Red Blood Cells Perc 0.0 % (0.0-0.2); Platelet Count Result 309 k/mm3 (150-375); Red Blood Count 3.94 M/mm3 (4.6-6.20); White Blood Count 11.1 K/mm3 (4.5-10.0)
[2025-04-24 06:51] LABS: Alanine Aminotransferase 32 U/L (6-50); Albumin Level 3.2 g/dL (3.5-5.1); Alkaline Phosphatase 130 U/L (38-126); Anion Gap 6 mmol/L (4-12); Aspartate Amino Transferase 23 U/L (17-59); Bilirubin,Total 0.5 mg/dL (0.2-1.3); Blood Urea Nitrogen 21 mg/dL (9-20); Calcium 8.2 mg/dL (8.4-10.2); Carbon Dioxide 23 mmol/L (22-30); Chloride 96 mmol/L (98-107); Estimated CRCL calculation 54 ml/min; Estimated Glomerular Filt Rate > 60; Glucose 92 mg/dL (65-110); Magnesium 2.1 mg/dL (1.6-2.3); Potassium 3.7 mmol/L (3.4-5.0); Sodium 125 mmol/L (137-145); Total Protein 6.1 g/dL (6.3-8.2)
[2025-04-24 07:20] LABS: Thyroid Stimulating Hormone Reflex 0.053 uIU/mL (0.465-4.68)
[2025-04-24] MEDS: ASPIRIN 81 MG ENTERIC TABLET PO (08:16)
[2025-04-24] MEDS: PROPRANOLOL HCL 10 MG TABLET PO ×4 (08:16→20:41)
[2025-04-24] MEDS: LOSARTAN POTASSIUM 50 MG TABLET PO (08:19)
[2025-04-24] MEDS: DUTASTERIDE 0.5 MG CAPSULE PO (08:19)
[2025-04-24] MEDS: ATORVASTATIN 20 MG TABLET PO (08:19)
[2025-04-24] MEDS: DOCUSATE SODIUM 100 MG CAPSULE PO ×2 (08:19→17:36)
[2025-04-24] MEDS: guaiFENesin 12 HR 600 MG TABCR 1200 MG PO ×2 (08:19→20:41)
[2025-04-24] MEDS: PANTOPRAZOLE 40 MG TABLET PO (08:19)
[2025-04-24] MEDS: NYSTATIN 100,000 UNITS/ML SUSP 5 ML ORAL.SUSP PO ×4 (08:20→20:42)
[2025-04-24] MEDS: FLUTICASONE PROPIONATE 0.05% NA SPR 16 GM BTL (*BKC) 1 SPRAY NASAL (08:20)
[2025-04-24 09:05] LABS: Free T4 Free Thyroxine Reflex 2.48 ng/dL (0.78-2.19)
--- NOTE | 2025-04-24 10:22 | PCNWS ---
Weekly nutritional screen. Patient is tolerating current Regular diet with adequate intake, 50-100% with 1 instance of 25%. Ensure Plus HP BID ordered by provider (350 kcal, 20 g protein each). No weight loss reported. No nutritional needs at this time.
--- NOTE | 2025-04-24 11:59 | PM.IMPN ---
Progress Note: A&P Assessment and Plan (1) Altered mental status: Code(s): R41.82 - Altered mental status, unspecified Status: Acute Assessment and Plan: Spoke with family and at baseline, has a 3rd grade education. Lived in his own house until 4 months ago. Moved due to falling. 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 b12 was normal. TSH low At baseline, need to speak slowly and use simple terms. days and years blend together Family reports last 3-4 days daughter report he's doing better but before that was getting family members confused, angry. Didn't know how to tell time. Today oriented x1 but pleasant Family initially concerned for a stroke due to altered mental status, was unable to obtain an MRI due to prior stent placed in the . Records unavailable. 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 Will not repeat since overall exam improving. Defer to neurology --Altered mental status likely multifactorial 2/2 hyperthyroidism, hyponatremia, vascular disease, as well as infection --Neurology consulted --Treating infection, hyponatremia as noted --Daily asa, statin --If able to obtain MRI, may also need pituitary imaging. T3 still pending (2) Hyperthyroidism without thyroid nodule: Code(s): E05.90 - Thyrotoxicosis, unspecified without thyrotoxic crisis or storm Status: Acute Assessment and Plan: TSH low at <0.015, t4 high at 2.23 --T3 cancelled, recheck TSH, T4 --Implementing hyperthyroid treatment today, will follow to see if helps values, if not, may add on sodium tab - 04/21 urine os and serum os pending -Started propranolol 10mg TID as well as methimazole 5mg daily, pt will need to f/u outpatient with an sr. social media & mobile manager (3) Hyponatremia: Code(s): E87.1 - Hypo-osmolality and hyponatremia Status: Acute Assessment and Plan: Likely contributing to confusion Sodium low in the setting of hyponatremia, 122<125<128>122<123<125<126 Improving with fluids but more tachypneic today/crackles, giving 20mg IV lasix with sodium tabs AM cortisol 10.9 --Treatment of hyperthyroidism as noted --Follow BMP in AM -- Has LE edema--Haley hose --Urine osmo 663, serum osmolality pending 04/21. Urine sodium 15, Urine creatinine 123. 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 Pt also with recent echo in November 2024, cards reviewed. Cards signing off. --Continue levofloxacin & prednisone 40mg daily, decreased to 30mg daily 04/22 --Follow WBC --Check x-ray likely viral pneumonitis (5) Benign prostatic hyperplasia: Code(s): N40.0 - Benign prostatic hyperplasia without lower urinary tract symptoms Status: Acute Assessment and Plan: CT showed enlarged prostate PSA normal --04/18 started tamsulosin 0.4mg daily, increase to 0.8mg hs --Start dutasteride --Urology follow up for enlarged prostate --Bladder scans over 300 intermittently. Straight cathed, 800ml overnight 04/23. --Continue bladder scan q6 (6) Hyperglycemia: Code(s): R73.9 - Hyperglycemia, unspecified Status: Acute Assessment and Plan: Likely due to steroids with possible impaired glucose tolerance, A1c orderd 04/19: A1c, 5.8, appropriate for age --SSI --on Prednisone as noted (7) Anxiety: Code(s): F41.9 - Anxiety disorder, unspecified Status: Acute Assessment and Plan: -continue with buspirone (8) Depression: Code(s): F32.A - Depression, unspecified Status: Acute Assessment and Plan: -continue buspirone (9) Hypertension: Code(s): I10 - Essential (primary) hypertension Status: Acute Assessment and Plan: Home meds: Losartan 50mg daily, Tamsulosin 0.4mg hs, amlodipine 5mg BP elevated 151/65 Increase tamsulosin to 0.4mg hs (10) Hyperlipidemia: Code(s): E78.5 - Hyperlipidemia, unspecified Status: Chronic Assessment and Plan: -continue with atorvastatin, continue to monitor liver enzymes (11) COPD (chronic obstructive pulmonary disease): Code(s): J44.9 - Chronic obstructive pulmonary disease, unspecified Status: Acute Assessment and Plan: See MALDONADO above Plan Hyperthyroid management, hypoNa management (pending osm studies), facility placement tomorrow Time Spent With Patient Time: 56 minutes Subjective Date/time seen: 04/24/25 11:59 Interval history: Feeling short of breath today/crackles to bases Chest xray today concerning for viral pneumonitis Giving one dose of lasix and sodium tab with hyponatremia Rechecking BMP this afternoon Urine osmo 663, serum osmolality pending 04/21. Urine sodium 15, Urine creatinine 123. Repeat chest x-ray pending. Had increased secretions yesterday and mucomyst helped Additional dose today TSH improving Exam Narrative: General - Awake and alert. slightly tachypneic Eyes - PERRLA, EOM intact ENT - No thrush, No erythema Neck - No noticeable or palpable swelling Lymph Nodes - No lymphadenopathy Cardiovascular - RRR no m/r/g, no JVD Lungs: Crackles, No wheezing, increased work of breathing Skin - Skin warm and dry, no wounds or rashes Abdomen - Normal bowel sounds, abdomen soft and nontender Extremities - Bilateral LE edema with HALEY hose, cyanosis or clubbing Musculoskeletal - 5/5 strength, normal range of motion, no swollen or erythematous joints. Neurological ? Alert and oriented x 1, CN 2-12 grossly intact. Psych: Normal mood and affect Objective Data Vital Signs Vital Signs: Vital Signs - 24 hr 04/23/25 12:25 04/23/25 14:00 04/23/25 14:31 Temperature 97.3 F L Pulse Rate 93 73 95 Respiratory Rate 16 20 Blood Pressure 114/89 Pulse Oximetry 96 Oxygen Delivery 04/23/25 14:37 04/23/25 16:36 04/23/25 19:25 Temperature Pulse Rate 92 92 84 Respiratory Rate 20 18 Blood Pressure Pulse Oximetry Oxygen Delivery 04/23/25 19:35 04/23/25 21:13 04/23/25 21:13 Temperature 98.7 F Pulse Rate 87 84 89 Respiratory Rate 20 20 Blood Pressure 152/61 H Pulse Oximetry 95 Oxygen Delivery 04/24/25 03:25 04/24/25 03:25 04/24/25 03:30 Temperature Pulse Rate 82 82 Respiratory Rate 20 20 Blood Pressure Pulse Oximetry 92 Oxygen Delivery Room Air 04/24/25 04:11 04/24/25 07:30 04/24/25 07:36 Temperature 97.9 F Pulse Rate 77 84 86 Respiratory Rate 20 20 20 Blood Pressure 164/74 H Pulse Oximetry 94 Oxygen Delivery 04/24/25 08:00 04/24/25 08:16 Temperature Pulse Rate 84 Respiratory Rate Blood Pressure Pulse Oximetry Oxygen Delivery Room Air Intake/Output Intake/Output: Intake & Output 04/21/25 04/22/25 04/23/25 04/24/25 23:59 23:59 23:59 23:59 Intake Total 2194 2077 2740 1080 Output Total 2 1050 Balance 2194 2075 1690 1080 Meds/Results Medications: Active Medications Generic Name Dose Route Start Last Admin Trade Name Freq PRN Reason Stop Dose Admin Amlodipine Besylate 5 mg 04/17/25 09:00 04/24/25 08:19 Amlodipine Besylate 5 Mg Tablet PO 5 mg DAILY CONNIE Administration Aspirin 81 mg 04/17/25 09:00 04/24/25 08:16 Aspirin 81 Mg Enteric Tablet PO 81 mg DAILY CONNIE Administration Atorvastatin Calcium 20 mg 04/17/25 09:00 04/24/25 08:19 Atorvastatin 20 Mg Tablet PO 20 mg DAILY CONNIE Administration Benzonatate 200 mg 04/17/25 08:37 Benzonatate 100 Mg Capsule PO Q8H PRN cough Buspirone HCl 5 mg 04/17/25 09:00 04/24/25 08:19 Buspirone Hcl 5 Mg Tablet PO 5 mg Q12HR CONNIE Administration Calcium Carbonate 200 mg 04/19/25 15:05 04/22/25 04:34 Calcium Carbonate (Tums) 500 Mg (200 Mg Elemental) PO 200 mg Q6H PRN Administration Indigestion Dextrose 12.5 gm 04/18/25 12:17 Dextrose 50% 25 Gm/50 Ml Syringe IV PUSH PRN PRN Hypoglycemia Protocol Docusate Sodium 100 mg 04/17/25 09:00 04/24/25 08:19 Docusate Sodium 100 Mg Capsule PO 100 mg BID CONNIE Administration Dutasteride 0.5 mg 04/24/25 09:00 04/24/25 08:19 Dutasteride 0.5 Mg Capsule PO 0.5 mg QAM CONNIE Administration Fluticasone Propionate 1 spray 04/17/25 09:00 04/24/25 08:20 Fluticasone Propionate 0.05% Na Spr 16 Gm Btl (*Bkc) NASAL 1 spray BID CONNIE Administration Glucagon 1 mg 04/18/25 12:17 Glucagon For Inj 1 Mg Vial IM PRN PRN Hypoglycemia Protocol Glucose 15 gm 04/18/25 12:17 Glucose Oral Gel 15 Gm Of Glucse In 37.5 Gm Tube PO PRN PRN Hypoglycemia Protocol Guaifenesin 1,200 mg 04/17/25 21:00 04/24/25 08:19 Guaifenesin 12 Hr 600 Mg Tabcr PO 1,200 mg Q12HR CONNIE Administration Dextrose 1,000 mls @ 100 mls/hr 04/18/25 12:17 Dextrose 5% 1,000 Ml IVPB PRN PRN Hypoglycemia Protocol Insulin Aspart 2 - 5 units 04/18/25 17:00 04/24/25 09:10 Insulin Aspart (*Bkc) 100 Units/Ml SUB-Q Not Given TIDWM CONNIE Protocol Insulin Glargine 10 units 04/18/25 21:00 04/23/25 21:13 Insulin Glargine (*Bkc) 100 Units/Ml SUB-Q 10 units HS CONNIE Administration Ipratropium [place] 0.5 mg 04/17/25 14:00 04/24/25 07:31 Ipratropium Br 0.02% Inh Soln 0.5 Mg/2.5 Ml Vial INHALATION 0.5 mg Q6HRT CONNIE Administration Levofloxacin 750 mg 04/18/25 13:00 04/22/25 12:13 Levofloxacin 750 Mg Tablet PO 04/24/25 12:59 750 mg Q48H CONNIE Administration Losartan Potassium 50 mg 04/17/25 09:00 04/24/25 08:19 Losartan Potassium 50 Mg Tablet PO 50 mg DAILY CONNIE Administration Melatonin 3 mg 04/19/25 21:00 04/23/25 21:14 Melatonin 3 Mg Tablet PO 3 mg HS CONNIE Administration Methimazole 5 mg 04/20/25 09:00 04/24/25 08:16 Methimazole 5 Mg Tab PO 5 mg QAM CONNIE Administration Nystatin 5 ml 04/22/25 21:00 04/24/25 08:20 Nystatin 100,000 Units/Ml Susp 5 Ml Oral.Susp PO 5 ml QID CONNIE Administration Pantoprazole Sodium 40 mg 04/17/25 13:50 04/24/25 08:19 Pantoprazole 40 Mg Tablet PO 40 mg QAM CONNIE Administration Polyethylene Glycol 17 gm 04/17/25 09:00 04/24/25 08:20 Polyethylene Glycol 3350 17 Gm Powd.Pack PO 17 gm QAM CONNIE Administration Prednisone 30 mg 04/22/25 08:00 04/24/25 08:18 Prednisone 10 Mg Tablet PO 05/01/25 07:59 30 mg DAILY@0800 CONNIE Administration Taper Propranolol HCl 10 mg 04/19/25 17:00 04/24/25 08:16 Propranolol Hcl 10 Mg Tablet PO 10 mg QID CONNIE Administration Tamsulosin HCl 0.8 mg 04/23/25 21:00 04/23/25 21:14 Tamsulosin Hcl 0.4 Mg Capsule PO 0.8 mg HS CONNIE Administration Radiology Results: ITS Impressions Head CT 04/22/25 14:39 Impression: 1.No acute intracranial abnormality. Venous Doppler Study 04/23/25 20:53 IMPRESSION: There was no sonographic evidence of deep vein thrombosis in both lower extremities. Labs Labs: Laboratory Results - last 24 hr 04/20/25 04/20/25 04/23/25 05:07 10:00 05:19 WBC RBC Hgb Hct MCV MCH MCHC RDW Plt Count MPV Immature Gran % (Auto) Neut % (Auto) Lymph % (Auto) Avery % (Auto) Eos % (Auto) Baso % (Auto) Lymph # (Auto) Avery # (Auto) Eos # (Auto) Baso # (Auto) Abs Immat Gran (auto) Absolute Neuts (auto) Absolute Nucleated RBC Nucleated RBC % Sodium Potassium Chloride Carbon Dioxide Anion Gap BUN Creatinine Estim Creat Clear Calc Estimated GFR Glucose POC Capillary Glucose Calcium Magnesium Total Bilirubin AST ALT Alkaline Phosphatase Total Protein Albumin Drtmy-3-Jivxadlxkei 231 H Alpha-1-AT Phenotype Mm TSH (Reflex) Free T4 Random Cortisol 14.70 Urine Osmolality 663 04/23/25 04/23/25 04/23/25 11:46 13:54 17:23 WBC RBC Hgb Hct MCV MCH MCHC RDW Plt Count MPV Immature Gran % (Auto) Neut % (Auto) Lymph % (Auto) Avery % (Auto) Eos % (Auto) Baso % (Auto) Lymph # (Auto) Avery # (Auto) Eos # (Auto) Baso # (Auto) Abs Immat Gran (auto) Absolute Neuts (auto) Absolute Nucleated RBC Nucleated RBC % Sodium 123 L Potassium 3.8 Chloride 94 L Carbon Dioxide 22 Anion Gap 7 BUN 23 H Creatinine 0.90 Estim Creat Clear Calc 49 Estimated GFR > 60 Glucose 214 H POC Capillary Glucose 150 H 180 H Calcium 7.9 L Magnesium Total Bilirubin AST ALT Alkaline Phosphatase Total Protein Albumin Ochht-3-Gnpprkzrfpn Alpha-1-AT Phenotype TSH (Reflex) Free T4 Random Cortisol 10.90 Urine Osmolality 04/23/25 04/24/25 04/24/25 21:11 05:33 07:40 WBC 11.1 H RBC 3.94 L Hgb 12.2 L Hct 36.3 L MCV 92.1 MCH 31.0 MCHC 33.6 RDW 12.8 Plt Count 309 MPV 9.0 Immature Gran % (Auto) 4.8 H Neut % (Auto) 79.7 H Lymph % (Auto) 6.9 L Avery % (Auto) 7.3 Eos % (Auto) 0.9 Baso % (Auto) 0.4 Lymph # (Auto) 0.77 L Avery # (Auto) 0.8 H Eos # (Auto) 0.1 Baso # (Auto) 0.0 Abs Immat Gran (auto) 0.53 H Absolute Neuts (auto) 8.9 H Absolute Nucleated RBC 0.000 Nucleated RBC % 0.0 Sodium 125 L Potassium 3.7 Chloride 96 L Carbon Dioxide 23 Anion Gap 6 BUN 21 H Creatinine 0.80 Estim Creat Clear Calc 54 Estimated GFR > 60 Glucose 92 POC Capillary Glucose 275 H 92 Calcium 8.2 L Magnesium 2.1 Total Bilirubin 0.5 AST 23 ALT 32 Alkaline Phosphatase 130 H Total Protein 6.1 L Albumin 3.2 L Oxzrx-3-Pesqtlxwkhe Alpha-1-AT Phenotype TSH (Reflex) 0.053 L Free T4 2.48 H Random Cortisol Urine Osmolality Quality VTE Prophylaxis VTE prophylaxis: mechanical ordered Hospitalist MIPS Advance Care Plan I have confirmed that the patient's Advanced Care Plan is present, code status is documented, or surrogate decision maker is listed in patient medical record.: Yes Medication Reconciliation I have utilized all available resources to obtain, update and review the patients current medications (includes all prescriptions, OTC, herbals, cannabis, and nutritional supplements).: Yes
[2025-04-24] MEDS: FUROSEMIDE INJ 40 MG/4 ML VIAL 20 MG IV PUSH (12:13)
[2025-04-24] MEDS: SODIUM CHLORIDE 500 MG TABLET PO ×2 (12:13→17:35)
[2025-04-24 16:16] LABS: Anion Gap 10 mmol/L (4-12); Blood Urea Nitrogen 26 mg/dL (9-20); Calcium 8.0 mg/dL (8.4-10.2); Carbon Dioxide 22 mmol/L (22-30); Chloride 94 mmol/L (98-107); Estimated CRCL calculation 45 ml/min; Estimated Glomerular Filt Rate > 60; Glucose 218 mg/dL (65-110); Potassium 4.0 mmol/L (3.4-5.0); Sodium 126 mmol/L (137-145)
[2025-04-24] MEDS: INSULIN ASPART (*BKC) 100 UNITS/ML SUB-Q (17:39)
[2025-04-24] MEDS: INSULIN GLARGINE (*BKC) 100 UNITS/ML 10 UNITS SUB-Q (20:40)
[2025-04-24] MEDS: TAMSULOSIN HCL 0.4 MG CAPSULE 0.8 MG PO (20:41)
[2025-04-24] MEDS: MELATONIN 3 MG TABLET PO (20:41)
[2025-04-25] VITALS (11 sets, daily range): BP systolic 122–139; BP diastolic 53–72; PULSE 68–98; RESP 18–24; TEMP 36.5–37.2; O2SAT 92–94
[2025-04-25 05:17] LABS: Hematocrit 34.0 % (42.0-52.0); Hemoglobin 11.5 g/dL (14.0-18.0); Immature Granulocyte Percent A 5.1 % (0-0.5); Lymphocytes Absolute Auto 0.77 K/mm3 (0.9-3.2); Mean Corpuscular HGB Conc 33.8 g/dl (32-36); Mean Corpuscular Hemoglobin 30.8 pg (26-34); Mean Corpuscular Volume 91.2 fl (80-100); Nucleated Red Blood Cells Absolute Auto 0.000 K/mm3 (0.0-0.012); Nucleated Red Blood Cells Perc 0.0 % (0.0-0.2); Platelet Count Result 285 k/mm3 (150-375); Red Blood Count 3.73 M/mm3 (4.6-6.20); White Blood Count 11.3 K/mm3 (4.5-10.0)
[2025-04-25 05:40] LABS: Alanine Aminotransferase 34 U/L (6-50); Albumin Level 2.8 g/dL (3.5-5.1); Alkaline Phosphatase 168 U/L (38-126); Anion Gap 6 mmol/L (4-12); Aspartate Amino Transferase 32 U/L (17-59); Bilirubin,Total 0.4 mg/dL (0.2-1.3); Blood Urea Nitrogen 27 mg/dL (9-20); Calcium 7.8 mg/dL (8.4-10.2); Carbon Dioxide 24 mmol/L (22-30); Chloride 98 mmol/L (98-107); Estimated CRCL calculation 52 ml/min; Estimated Glomerular Filt Rate > 60; Glucose 101 mg/dL (65-110); Magnesium 2.1 mg/dL (1.6-2.3); Potassium 3.5 mmol/L (3.4-5.0); Sodium 128 mmol/L (137-145); Total Protein 5.5 g/dL (6.3-8.2)
[2025-04-25 07:09] LABS: Triiodothyronine (T3), Free 2.6 pg/mL (2.0-4.4)
[2025-04-25] MEDS: IPRATROPIUM BR 0.02% INH SOLN 0.5 MG/2.5 ML VIAL INHALATION ×3 (07:26→20:19)
--- NOTE | 2025-04-25 08:14 | P.PNIM_ITS ---
Progress Note: A&P Assessment and Plan (1) Altered mental status: Code(s): R41.82 - Altered mental status, unspecified Status: Acute Assessment and Plan: Spoke with family and at baseline, has a 3rd grade education. Lived in his own house until 4 months ago. Moved due to falling. 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 b12 was normal. TSH low At baseline, need to speak slowly and use simple terms. days and years blend together Family reports last 3-4 days daughter report he's doing better but before that was getting family members confused, angry. Didn't know how to tell time. Today oriented x1 but pleasant Family initially concerned for a stroke due to altered mental status, was unable to obtain an MRI due to prior stent placed in the . Records unavailable. 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 Will not repeat since overall exam improving. Defer to neurology --Altered mental status likely multifactorial 2/2 hyperthyroidism, hyponatremia, vascular disease, as well as infection --Neurology consulted, appreciate recommendations --Treating infection, hyponatremia as noted --Daily asa, statin --If able to obtain MRI, may also need pituitary imaging. 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 Urine sodium 15, Urine creati nine 123. 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 Pt also with recent echo in November 2024, cards reviewed. Cards signing off. --Continue levofloxacin & prednisone 40mg daily, decreased to 30mg daily 04/22 --Follow WBC --Check x-ray likely viral pneumonitis (5) Benign prostatic hyperplasia: Code(s): N40.0 - Benign prostatic hyperplasia without lower urinary tract symptoms Status: Acute Assessment and Plan: CT showed enlarged prostate PSA normal --04/18 started tamsulosin 0.4mg daily, increase to 0.8mg hs --Start dutasteride --Urology follow up for enlarged prostate --Bladder scans over 300 intermittently. Straight cathed, 800ml overnight 04/23. --Continue bladder scan q6 (6) Hyperglycemia: Code(s): R73.9 - Hyperglycemia, unspecified Status: Acute Assessment and Plan: Likely due to steroids with possible impaired glucose tolerance, A1c orderd 04/19: A1c, 5.8, appropriate for age --SSI --on Prednisone as noted (7) Anxiety: Code(s): F41.9 - Anxiety disorder, unspecified Status: Acute Assessment and Plan: -continue with buspirone (8) Depression: Code(s): F32.A - Depression, unspecified Status: Acute Assessment and Plan: -continue buspirone (9) Hypertension: Code(s): I10 - Essential (primary) hypertension Status: Acute Assessment and Plan: Home meds: Losartan 50mg daily, Tamsulosin 0.4mg hs, amlodipine 5mg BP elevated 151/65 Increase tamsulosin to 0.4mg hs (10) Hyperlipidemia: Code(s): E78.5 - Hyperlipidemia, unspecified Status: Chronic Assessment and Plan: -continue with atorvastatin, continue to monitor liver enzymes (11) COPD (chronic obstructive pulmonary disease): Code(s): J44.9 - Chronic obstructive pulmonary disease, unspecified Status: Acute Assessment and Plan: See MALDONADO above Plan Hyperthyroid management, hypoNa management (pending osm studies), facility placement tomorrow Time Spent With Patient Time: 57 minutes Subjective Date/time seen: 04/25/25 08:14 Interval history: Sodium improved 128 Swelling improved with haley hose and diuretics Can't leave over the weekend, facility doesn't have nurses over the weekend. Needs to discharge on Sunday Bladder scans around 300, following. May be able to straight cath daily for discharge Exam Narrative: General - Awake and alert. slightly tachypneic Eyes - PERRLA, EOM intact ENT - No thrush, No erythema Neck - No noticeable or palpable swelling Lymph Nodes - No lymphadenopathy Cardiovascular - RRR no m/r/g, no JVD Lungs: Crackles, No wheezing, increased work of breathing Skin - Skin warm and dry, no wounds or rashes Abdomen - Normal bowel sounds, abdomen soft and nontender Extremities - Bilateral LE edema with HALEY hose, cyanosis or clubbing Musculoskeletal - 5/5 strength, normal range of motion, no swollen or eryt hematous joints. Neurological ? Alert and oriented x 1, CN 2-12 grossly intact. Psych: Normal mood and affect Objective Data Vital Signs Vital Signs: Vital Signs - 24 hr 04/24/25 08:16 04/24/25 12:13 04/24/25 14:00 Temperature 97.7 F Pulse Rate 84 79 72 Respiratory Rate 24 H Blood Pressure 118/52 L Pulse Oximetry 92 Oxygen Delivery Fraction of Inspired Oxygen 04/24/25 17:39 04/24/25 19:42 04/24/25 19:51 Temperature Pulse Rate 82 92 88 Respiratory Rate 20 20 Blood Pressure Pulse Oximetry Oxygen Delivery Fraction of Inspired Oxygen 04/24/25 19:52 04/24/25 19:58 04/24/25 20:00 Temperature 98.7 F Pulse Rate 78 78 Respiratory Rate 28 H 28 H Blood Pressure 116/52 L Pulse Oximetry 93 93 93 Oxygen Delivery Room Air Room Air Fraction of Inspired Oxygen 21 04/24/25 20:41 04/25/25 03:41 04/25/25 07:26 Temperature 98.7 F Pulse Rate 78 68 98 Respiratory Rate 22 H 20 Blood Pressure 122/69 Pulse Oximetry 94 Oxygen Delivery Fraction of Inspired Oxygen Intake/Output Intake/Output: Intake & Output 04/22/25 04/23/25 04/24/25 04/25/25 23:59 23:59 23:59 23:59 Intake Total 2077 2740 1420 360 Output Total 2 1050 925 Balance 2074 1690 495 360 Meds/Results Medications: Active Medications Generic Name Dose Route Start Last Admin Trade Name Freq PRN Reason Stop Dose Admin Amlodipine Besylate 5 mg 04/17/25 09:00 04/24/25 08:19 Amlodipine Besylate 5 Mg Tablet PO 5 mg DAILY CONNIE Administration Aspirin 81 mg 04/17/25 09:00 04/24/25 08:16 Aspirin 81 Mg Enteric Tablet PO 81 mg DAILY CONNIE Administration Atorvastatin Calcium 20 mg 04/17/25 09:00 04/24/25 08:19 Atorvastatin 20 Mg Tablet PO 20 mg DAILY CONNIE Administration Benzonatate 200 mg 04/17/25 08:37 Benzonatate 100 Mg Capsule PO Q8H PRN cough Buspirone HCl 5 mg 04/17/25 09:00 04/24/25 20:41 Buspirone Hcl 5 Mg Tablet PO 5 mg Q12HR CONNIE Administration Calcium Carbonate 200 mg 04/19/25 15:05 04/22/25 04:34 Calcium Carbonate (Tums) 500 Mg (200 Mg Elemental) PO 200 mg Q6H PRN Administration Indigestion Dextrose 12.5 gm 04/18/25 12:17 Dextrose 50% 25 Gm/50 Ml Syringe IV PUSH PRN PRN Hypoglycemia Protocol Docusate Sodium 100 mg 04/17/25 09:00 04/24/25 17:36 Docusate Sodium 100 Mg Capsule PO 100 mg BID CONNIE Administration Dutasteride 0.5 mg 04/24/25 09:00 04/24/25 08:19 Dutasteride 0.5 Mg Capsule PO 0.5 mg QAM CONNIE Administration Fluticasone Propionate 1 spray 04/17/25 09:00 04/24/25 17:39 Fluticasone Propionate 0.05% Na Spr 16 Gm Btl (*Bkc) NASAL Not Given BID CONNIE Glucagon 1 mg 04/18/25 12:17 Glucagon For Inj 1 Mg Vial IM PRN PRN Hypoglycemia Protocol Glucose 15 gm 04/18/25 12:17 Glucose Oral Gel 15 Gm Of Glucse In 37.5 Gm Tube PO PRN PRN Hypoglycemia Protocol Guaifenesin 1,200 mg 04/17/25 21:00 04/24/25 20:41 Guaifenesin 12 Hr 600 Mg Tabcr PO 1,200 mg Q12HR CONNIE Administration Dextrose 1,000 mls @ 100 mls/hr 04/18/25 12:17 Dextrose 5% 1,000 Ml IVPB PRN PRN Hypoglycemia Protocol Insulin Aspart 2 - 5 units 04/18/25 17:00 04/24/25 17:39 Insulin Aspart (*Bkc) 100 Units/Ml SUB-Q 3 units TIDWM CONNIE Administration Protocol Insulin Glargine 10 units 04/18/25 21:00 04/24/25 20:40 Insulin Glargine (*Bkc) 100 Units/Ml SUB-Q 10 units HS CONNIE Administration Ipratropium [place] 0.5 mg 04/17/25 14:00 04/25/25 07:26 Ipratropium Br 0.02% Inh Soln 0.5 Mg/2.5 Ml Vial INHALATION 0.5 mg Q6HRT CONNIE Administration Losartan Potassium 50 mg 04/17/25 09:00 04/24/25 08:19 Losartan Potassium 50 Mg Tablet PO 50 mg DAILY CONNIE Administration Melatonin 3 mg 04/19/25 21:00 04/24/25 20:41 Melatonin 3 Mg Tablet PO 3 mg HS CONNIE Administration Methimazole 5 mg 04/20/25 09:00 04/24/25 08:16 Methimazole 5 Mg Tab PO 5 mg QAM CONNIE Administration Nystatin 5 ml 04/22/25 21:00 04/24/25 20:42 Nystatin 100,000 Units/Ml Susp 5 Ml Oral.Susp PO 5 ml QID CONNIE Administration Pantoprazole Sodium 40 mg 04/17/25 13:50 04/24/25 08:19 Pantoprazole 40 Mg Tablet PO 40 mg QAM CONNIE Administration Polyethylene Glycol 17 gm 04/17/25 09:00 04/24/25 08:20 Polyethylene Glycol 3350 17 Gm Powd.Pack PO 17 gm QAM CONNIE Administration Prednisone 20 mg 04/22/25 08:00 04/24/25 08:18 Prednisone 10 Mg Tablet PO 05/01/25 07:59 30 mg DAILY@0800 CONNIE Administration Taper Propranolol HCl 10 mg 04/19/25 17:00 04/24/25 20:41 Propranolol Hcl 10 Mg Tablet PO 10 mg QID CONNIE Administration Sodium Chloride 500 mg 04/24/25 12:10 04/24/25 17:35 Sodium Chloride 500 Mg Tablet PO 500 mg BID CONNIE Administration Tamsulosin HCl 0.8 mg 04/23/25 21:00 04/24/25 20:41 Tamsulosin Hcl 0.4 Mg Capsule PO 0.8 mg HS CONNIE Administration Radiology Results: ITS Impressions Head CT 04/22/25 14:39 Impression: 1.No acute intracranial abnormality. Venous Doppler Study 04/23/25 20:53 IMPRESSION: There was no sonographic evidence of deep vein thrombosis in both lower extremities. Chest X-Ray 04/24/25 14:57 Impression: Probable viral pneumonitis Labs Labs: Laboratory Results - last 24 hr 04/24/25 04/24/25 04/24/25 05:33 07:40 11:48 WBC RBC Hgb Hct MCV MCH MCHC RDW Plt Count MPV Immature Gran % (Auto) Neut % (Auto) Lymph % (Auto) [place] % (Auto) Eos % (Auto) Baso % (Auto) Lymph # (Auto) [place] # (Auto) Eos # (Auto) Baso # (Auto) Abs Immat Gran (auto) Absolute Neuts (auto) Absolute Nucleated RBC Nucleated RBC % Sodium Potassium Chloride Carbon Dioxide Anion Gap BUN Creatinine Estim Creat Clear Calc Estimated GFR Glucose POC Capillary Glucose 92 190 H Calcium Phosphorus Magnesium Total Bilirubin AST ALT Alkaline Phosphatase Total Protein Albumin Free T4 2.48 H Free T3 pg/mL 2.6 04/24/25 04/24/25 04/24/25 15:54 16:34 19:57 WBC RBC Hgb Hct MCV MCH MCHC RDW Plt Count MPV Immature Gran % (Auto) Neut % (Auto) Lymph % (Auto) [place] % (Auto) Eos % (Auto) Baso % (Auto) Lymph # (Auto) [place] # (Auto) Eos # (Auto) Baso # (Auto) Abs Immat Gran (auto) Absolute Neuts (auto) Absolute Nucleated RBC Nucleated RBC % Sodium 126 L Potassium 4.0 Chloride 94 L Carbon Dioxide 22 Anion Gap 10 BUN 26 H Creatinine 0.99 Estim Creat Clear Calc 45 Estimated GFR > 60 Glucose 218 H POC Capillary Glucose 251 H 199 H Calcium 8.0 L Phosphorus 3.6 Magnesium Total Bilirubin AST ALT Alkaline Phosphatase Total Protein Albumin Free T4 Free T3 pg/mL 04/25/25 04/25/25 04:55 07:31 WBC 11.3 H RBC 3.73 L Hgb 11.5 L Hct 34.0 L MCV 91.2 MCH 30.8 MCHC 33.8 RDW 12.9 Plt Count 285 MPV 9.0 Immature Gran % (Auto) 5.1 H Neut % (Auto) 80.4 H Lymph % (Auto) 6.8 L [place] % (Auto) 6.9 Eos % (Auto) 0.6 Baso % (Auto) 0.2 Lymph # (Auto) 0.77 L [place] # (Auto) 0.8 H Eos # (Auto) 0.1 Baso # (Auto) 0.0 Abs Immat Gran (auto) 0.57 H Absolute Neuts (auto) 9.1 H Absolute Nucleated RBC 0.000 Nucleated RBC % 0.0 Sodium 128 L Potassium 3.5 Chloride 98 Carbon Dioxide 24 Anion Gap 6 BUN 27 H Creatinine 0.84 Estim Creat Clear Calc 52 Estimated GFR > 60 Glucose 101 POC Capillary Glucose 99 Calcium 7.8 L Phosphorus Magnesium 2.1 Total Bilirubin 0.4 AST 32 ALT 34 Alkaline Phosphatase 168 H Total Protein 5.5 L Albumin 2.8 L Free T4 Free T3 pg/mL Quality VTE Prophylaxis VTE prophylaxis: mechanical ordered Hospitalist [facility] Advance Care Plan I have confirmed that the patient's Advanced Care Plan is present, code status is documented, or surrogate decision maker is listed in patient medical record.: Yes Medication Reconciliation The patient is not eligible for med reconciliation; the patient is in a emergent medical situation where delaying treatment would jeopardize the patients health.: Yes
[2025-04-25] MEDS: guaiFENesin 12 HR 600 MG TABCR 1200 MG PO ×2 (08:23→20:43)
[2025-04-25] MEDS: SODIUM CHLORIDE 500 MG TABLET PO ×2 (08:23→17:47)
[2025-04-25] MEDS: DUTASTERIDE 0.5 MG CAPSULE PO (08:24)
[2025-04-25] MEDS: PROPRANOLOL HCL 10 MG TABLET PO ×4 (08:25→20:43)
[2025-04-25] MEDS: ATORVASTATIN 20 MG TABLET PO (08:29)
[2025-04-25] MEDS: LOSARTAN POTASSIUM 50 MG TABLET PO (08:29)
[2025-04-25] MEDS: ASPIRIN 81 MG ENTERIC TABLET PO (08:30)
[2025-04-25] MEDS: DOCUSATE SODIUM 100 MG CAPSULE PO ×2 (08:30→17:47)
[2025-04-25] MEDS: PANTOPRAZOLE 40 MG TABLET PO (08:31)
[2025-04-25] MEDS: FLUTICASONE PROPIONATE 0.05% NA SPR 16 GM BTL (*BKC) 1 SPRAY NASAL ×2 (08:32→17:49)
[2025-04-25] MEDS: NYSTATIN 100,000 UNITS/ML SUSP 5 ML ORAL.SUSP PO ×4 (08:54→20:45)
[2025-04-25] MEDS: INSULIN ASPART (*BKC) 100 UNITS/ML SUB-Q (17:47)
--- NOTE | 2025-04-25 20:20 | PCRCNOTE ---
RCS documentd tx manually, RCS cart missing from floor and scanner not working on alternate WOW
[2025-04-25] MEDS: INSULIN GLARGINE (*BKC) 100 UNITS/ML 10 UNITS SUB-Q (20:40)
[2025-04-25] MEDS: TAMSULOSIN HCL 0.4 MG CAPSULE 0.8 MG PO (20:43)
[2025-04-25] MEDS: MELATONIN 3 MG TABLET PO (20:43)
[2025-04-25 22:07] LABS: Osmolality, Serum 259 mOsmol/kg (280-301)
[2025-04-26] VITALS (15 sets, daily range): BP systolic 126–157; BP diastolic 58–75; PULSE 68–97; RESP 16–24; TEMP 36.3–36.9; O2SAT 92–94
[2025-04-26] MEDS: IPRATROPIUM BR 0.02% INH SOLN 0.5 MG/2.5 ML VIAL INHALATION ×4 (02:08→19:28)
[2025-04-26] MEDS: PROPRANOLOL HCL 10 MG TABLET PO ×4 (08:09→20:22)
[2025-04-26] MEDS: SODIUM CHLORIDE 500 MG TABLET PO (08:09)
[2025-04-26] MEDS: NYSTATIN 100,000 UNITS/ML SUSP 5 ML ORAL.SUSP PO ×4 (08:09→20:23)
[2025-04-26] MEDS: LOSARTAN POTASSIUM 25 MG TABLET PO (08:09)
[2025-04-26] MEDS: ATORVASTATIN 20 MG TABLET PO (08:09)
[2025-04-26] MEDS: DUTASTERIDE 0.5 MG CAPSULE PO (08:09)
[2025-04-26] MEDS: DOCUSATE SODIUM 100 MG CAPSULE PO ×2 (08:09→16:03)
[2025-04-26] MEDS: ASPIRIN 81 MG ENTERIC TABLET PO (08:09)
[2025-04-26] MEDS: PANTOPRAZOLE 40 MG TABLET PO (08:09)
[2025-04-26] MEDS: guaiFENesin 12 HR 600 MG TABCR 1200 MG PO ×2 (08:10→20:23)
[2025-04-26] MEDS: FLUTICASONE PROPIONATE 0.05% NA SPR 16 GM BTL (*BKC) 1 SPRAY NASAL ×2 (08:10→16:03)
--- NOTE | 2025-04-26 13:06 | PM.IMPN ---
Progress Note: A&P Assessment and Plan (1) Altered mental status: Code(s): R41.82 - Altered mental status, unspecified Status: Acute Assessment and Plan: Spoke with family and at baseline, has a 3rd grade education. Lived in his own house until 4 months ago. Moved due to falling. 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 b12 was normal. TSH low At baseline, need to speak slowly and use simple terms. days and years blend together Family reports last 3-4 days daughter report he's doing better but before that was getting family members confused, angry. Didn't know how to tell time. Today oriented x1 but pleasant Family initially concerned for a stroke due to altered mental status, was unable to obtain an MRI due to prior stent placed in the . Records unavailable. 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 Will not repeat since overall exam improving. Defer to neurology --Altered mental status likely multifactorial 2/2 hyperthyroidism, hyponatremia, vascular disease, as well as infection --Neurology consulted, appreciate recommendations --Treating infection, hyponatremia as noted --Daily asa, statin --Can consider an MRI outpatient (2) Hyperthyroidism without thyroid nodule: Code(s): E05.90 - Thyrotoxicosis, unspecified without thyrotoxic crisis or storm Status: Acute Assessment and Plan: TSH low at <0.015, t4 high at 2.23 --T3 cancelled, recheck TSH, T4 --Implementing hyperthyroid treatment today, will follow to see if helps values, if not, may add on sodium tab - 04/21 urine os and serum os pending -Started propranolol 10mg TID as well as methimazole 5mg daily, pt will need to f/u outpatient with an cigarette package examiner (3) Hyponatremia: Code(s): E87.1 - Hypo-osmolality and hyponatremia Status: Acute Assessment and Plan: Likely contributing to confusion Sodium low in the setting of hyponatremia, 122<125<128>122<123<125<126<127<128>125 Sodium improving with fluids but more tachypneic crackles, gave 20mg IV lasix with sodium tabs and had transient improvement --Increase sodium tabs to 1000mg BID hasn't been drinking over 1 liter per day. AM cortisol 10.9 but was on prednisone --Treatment of hyperthyroidism as noted --Need repeat testing for adrenal insufficiency when off steroids --Follow BMP -- Has LE edema--Haley hose --Urine osmo 663, 04/21 serum osmolality pending 259. Urine sodium 15, Urine creatinine 123. 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 Pt also with recent echo in November 2024, cards reviewed. Cards signing off. --Continue levofloxacin & prednisone 40mg>30mg> 20mg on 04/22 --Follow WBC --Check x-ray likely viral pneumonitis --Repeat x-ray since white count up to 15 (5) Benign prostatic hyperplasia: Code(s): N40.0 - Benign prostatic hyperplasia without lower urinary tract symptoms Status: Acute Assessment and Plan: CT showed enlarged prostate PSA normal --04/18 started tamsulosin 0.4mg daily, increase to 0.8mg hs --Start dutasteride --Urology follow up for enlarged prostate --Bladder scans over 300 intermittently. Straight cathed, 800ml overnight 04/23. --Continue bladder scan q6 (6) Hyperglycemia: Code(s): R73.9 - Hyperglycemia, unspecified Status: Acute Assessment and Plan: Likely due to steroids with possible impaired glucose tolerance, A1c orderd 04/19: A1c, 5.8, appropriate for age --SSI --on Prednisone as noted (7) Anxiety: Code(s): F41.9 - Anxiety disorder, unspecified Status: Acute Assessment and Plan: -continue with buspirone (8) Depression: Code(s): F32.A - Depression, unspecified Status: Acute Assessment and Plan: -continue buspirone (9) Hypertension: Code(s): I10 - Essential (primary) hypertension Status: Acute Assessment and Plan: Home meds: Losartan 50mg daily, Tamsulosin 0.4mg hs, amlodipine 5mg BP elevated 151/65 Increase tamsulosin to 0.4mg hs (10) Hyperlipidemia: Code(s): E78.5 - Hyperlipidemia, unspecified Status: Chronic Assessment and Plan: -continue with atorvastatin, continue to monitor liver enzymes (11) COPD (chronic obstructive pulmonary disease): Code(s): J44.9 - Chronic obstructive pulmonary disease, unspecified Status: Acute Assessment and Plan: See MALDONADO above (12) Leukocytosis: Code(s): D72.829 - Elevated white blood cell count, unspecified Status: Acute Assessment and Plan: WBC elevated in the setting of steroids & intermittent catherizations --Repeat UA/culture --Chest x-ray Plan Hyperthyroid management, hypoNa management (pending osm studies), facility placement tomorrow Time Spent With Patient Time: 59 minutes Subjective Date/time seen: 04/26/25 13:06 Interval history: Swelling improved with haley hose and diuretics Can't discharge over the weekend, facility doesn't have nurses over the weekend. Needs to discharge on Sunday or during the week. Patient anxious to leave to get back to his friends at the facility Bladder scans 379 last night but only 220ml out Can likely discharge without a catheter with urology follow up. Following bladder scans WBC more elevated but no fevers. On steroids, tapering. Rechecking UA, Chest x-ray Sodium 125, increase sodium tabs to 1000mg BID Exam Narrative: General - Awake and alert. slightly tachypneic Eyes - PERRLA, EOM intact ENT - No thrush, No erythema Neck - No noticeable or palpable swelling Lymph Nodes - No lymphadenopathy Cardiovascular - RRR no m/r/g, no JVD Lungs: Crackles, No wheezing, increased work of breathing Skin - Skin warm and dry, no wounds or rashes Abdomen - Normal bowel sounds, abdomen soft and nontender Extremities - Bilateral LE edema with HALEY hose, cyanosis or clubbing Musculoskeletal - 5/5 strength, normal range of motion, no swollen or erythematous joints. Neurological ? Alert and oriented x 1, CN 2-12 grossly intact. Psych: Normal mood and affect Objective Data Vital Signs Vital Signs: Vital Signs - 24 hr 04/25/25 14:00 04/25/25 14:08 04/25/25 17:48 Temperature 99.0 F Pulse Rate 76 96 91 Respiratory Rate 18 20 Blood Pressure 129/72 Pulse Oximetry 92 Oxygen Delivery 04/25/25 20:20 04/25/25 20:24 04/25/25 20:43 Temperature Pulse Rate 94 95 90 Respiratory Rate 20 20 Blood Pressure Pulse Oximetry Oxygen Delivery 04/25/25 20:45 04/25/25 21:46 04/26/25 02:09 Temperature 97.7 F Pulse Rate 86 96 Respiratory Rate 24 H 18 Blood Pressure 139/53 L Pulse Oximetry 93 Oxygen Delivery Room Air 04/26/25 02:11 04/26/25 05:43 04/26/25 08:00 Temperature 97.7 F Pulse Rate 97 79 Respiratory Rate 18 22 H Blood Pressure 157/75 H Pulse Oximetry 92 Oxygen Delivery Room Air 04/26/25 08:09 04/26/25 09:00 04/26/25 09:15 Temperature Pulse Rate 79 91 87 Respiratory Rate 18 18 Blood Pressure Pulse Oximetry Oxygen Delivery 04/26/25 12:21 Temperature Pulse Rate 87 Respiratory Rate Blood Pressure Pulse Oximetry Oxygen Delivery Intake/Output Intake/Output: Intake & Output 04/23/25 04/24/25 04/25/25 04/26/25 23:59 23:59 23:59 23:59 Intake Total 2740 1420 840 486 Output Total 1050 925 670 200 Balance 1690 495 170 286 Meds/Results Medications: Active Medications Generic Name Dose Route Start Last Admin Trade Name Freq PRN Reason Stop Dose Admin Amlodipine Besylate 5 mg 04/17/25 09:00 04/26/25 08:09 Amlodipine Besylate 5 Mg Tablet PO 5 mg DAILY CONNIE Administration Aspirin 81 mg 04/17/25 09:00 04/26/25 08:09 Aspirin 81 Mg Enteric Tablet PO 81 mg DAILY CONNIE Administration Atorvastatin Calcium 20 mg 04/17/25 09:00 04/26/25 08:09 Atorvastatin 20 Mg Tablet PO 20 mg DAILY CONNIE Administration Benzonatate 200 mg 04/17/25 08:37 Benzonatate 100 Mg Capsule PO Q8H PRN cough Buspirone HCl 5 mg 04/17/25 09:00 04/26/25 08:09 Buspirone Hcl 5 Mg Tablet PO 5 mg Q12HR CONNIE Administration Calcium Carbonate 200 mg 04/19/25 15:05 04/22/25 04:34 Calcium Carbonate (Tums) 500 Mg (200 Mg Elemental) PO 200 mg Q6H PRN Administration Indigestion Dextrose 12.5 gm 04/18/25 12:17 Dextrose 50% 25 Gm/50 Ml Syringe IV PUSH PRN PRN Hypoglycemia Protocol Docusate Sodium 100 mg 04/17/25 09:00 04/26/25 08:09 Docusate Sodium 100 Mg Capsule PO 100 mg BID CONNIE Administration Dutasteride 0.5 mg 04/24/25 09:00 04/26/25 08:09 Dutasteride 0.5 Mg Capsule PO 0.5 mg QAM CONNIE Administration Fluticasone Propionate 1 spray 04/17/25 09:00 04/26/25 08:10 Fluticasone Propionate 0.05% Na Spr 16 Gm Btl (*Bkc) NASAL 1 spray BID CONNIE Administration Glucagon 1 mg 04/18/25 12:17 Glucagon For Inj 1 Mg Vial IM PRN PRN Hypoglycemia Protocol Glucose 15 gm 04/18/25 12:17 Glucose Oral Gel 15 Gm Of Glucse In 37.5 Gm Tube PO PRN PRN Hypoglycemia Protocol Guaifenesin 1,200 mg 04/17/25 21:00 04/26/25 08:10 Guaifenesin 12 Hr 600 Mg Tabcr PO 1,200 mg Q12HR CONNIE Administration Dextrose 1,000 mls @ 100 mls/hr 04/18/25 12:17 Dextrose 5% 1,000 Ml IVPB PRN PRN Hypoglycemia Protocol Insulin Aspart 2 - 5 units 04/18/25 17:00 04/26/25 11:53 Insulin Aspart (*Bkc) 100 Units/Ml SUB-Q Not Given TIDWM CONNIE Protocol Insulin Glargine 10 units 04/18/25 21:00 04/25/25 20:40 Insulin Glargine (*Bkc) 100 Units/Ml SUB-Q 10 units HS CONNIE Administration Ipratropium Brainard 0.5 mg 04/17/25 14:00 04/26/25 09:00 Ipratropium Br 0.02% Inh Soln 0.5 Mg/2.5 Ml Vial INHALATION 0.5 mg Q6HRT CONNIE Administration Losartan Potassium 25 mg 04/26/25 09:00 04/26/25 08:09 Losartan Potassium 25 Mg Tablet PO 25 mg DAILY CONNIE Administration Melatonin 3 mg 04/19/25 21:00 04/25/25 20:43 Melatonin 3 Mg Tablet PO 3 mg HS CONNIE Administration Methimazole 5 mg 04/20/25 09:00 04/26/25 08:10 Methimazole 5 Mg Tab PO 5 mg QAM CONNIE Administration Nystatin 5 ml 04/22/25 21:00 04/26/25 12:21 Nystatin 100,000 Units/Ml Susp 5 Ml Oral.Susp PO 5 ml QID CONNIE Administration Pantoprazole Sodium 40 mg 04/17/25 13:50 04/26/25 08:09 Pantoprazole 40 Mg Tablet PO 40 mg QAM CONNIE Administration Polyethylene Glycol 17 gm 04/17/25 09:00 04/26/25 08:10 Polyethylene Glycol 3350 17 Gm Powd.Pack PO 17 gm QAM CONNIE Administration Prednisone 20 mg 04/22/25 08:00 04/26/25 08:09 Prednisone 10 Mg Tablet PO 05/01/25 07:59 20 mg DAILY@0800 CONNIE Administration Taper Propranolol HCl 10 mg 04/19/25 17:00 04/26/25 12:21 Propranolol Hcl 10 Mg Tablet PO 10 mg QID CONNIE Administration Sodium Chloride 500 mg 04/24/25 12:10 04/26/25 08:09 Sodium Chloride 500 Mg Tablet PO 500 mg BID CONNIE Administration Tamsulosin HCl 0.8 mg 04/23/25 21:00 04/25/25 20:43 Tamsulosin Hcl 0.4 Mg Capsule PO 0.8 mg HS CONNIE Administration Radiology Results: ITS Impressions Head CT 04/22/25 14:39 Impression: 1.No acute intracranial abnormality. Venous Doppler Study 04/23/25 20:53 IMPRESSION: There was no sonographic evidence of deep vein thrombosis in both lower extremities. Chest X-Ray 04/24/25 14:57 Impression: Probable viral pneumonitis Labs Labs: Laboratory Results - last 24 hr 04/21/25 04/25/25 04/25/25 05:30 17:03 20:37 POC Capillary Glucose 246 H 172 H Serum Osmolality 259 L 04/26/25 04/26/25 08:00 12:05 POC Capillary Glucose 99 139 H Serum Osmolality Quality VTE Prophylaxis VTE prophylaxis: mechanical ordered Hospitalist MIPS Advance Care Plan I have confirmed that the patient's Advanced Care Plan is present, code status is documented, or surrogate decision maker is listed in patient medical record.: Yes Medication Reconciliation I have utilized all available resources to obtain, update and review the patients current medications (includes all prescriptions, OTC, herbals, cannabis, and nutritional supplements).: Yes
[2025-04-26 13:51] LABS: Hematocrit 34.6 % (42.0-52.0); Hemoglobin 11.8 g/dL (14.0-18.0); Immature Granulocyte Percent A 2.2 % (0-0.5); Lymphocytes Absolute Auto 0.39 K/mm3 (0.9-3.2); Mean Corpuscular HGB Conc 34.1 g/dl (32-36); Mean Corpuscular Hemoglobin 31.1 pg (26-34); Mean Corpuscular Volume 91.1 fl (80-100); Nucleated Red Blood Cells Absolute Auto 0.000 K/mm3 (0.0-0.012); Nucleated Red Blood Cells Perc 0.0 % (0.0-0.2); Platelet Count Result 288 k/mm3 (150-375); Red Blood Count 3.80 M/mm3 (4.6-6.20); White Blood Count 15.7 K/mm3 (4.5-10.0)
[2025-04-26 14:07] LABS: Anion Gap 5 mmol/L (4-12); Blood Urea Nitrogen 31 mg/dL (9-20); CRP 2.2 mg/dL (<1.0); Calcium 7.9 mg/dL (8.4-10.2); Carbon Dioxide 22 mmol/L (22-30); Chloride 98 mmol/L (98-107); Estimated CRCL calculation 51 ml/min; Estimated Glomerular Filt Rate > 60; Glucose 165 mg/dL (65-110); Magnesium 2.1 mg/dL (1.6-2.3); Potassium 4.7 mmol/L (3.4-5.0); Sodium 125 mmol/L (137-145)
[2025-04-26] MEDS: SODIUM CHLORIDE 1 GM TABLET PO (16:03)
[2025-04-26] MEDS: INSULIN ASPART (*BKC) 100 UNITS/ML SUB-Q (16:47)
[2025-04-26 16:53] LABS: Thyroid Stimulating Hormone < 0.015 uIU/mL (0.465-4.680)
[2025-04-26 19:13] LABS: Add Urine Microscopic? YES; Appearance Urine Clear (Clear); Glucose Urine UA Trace mg/dL (Negative); Leukocyte Esterase Ur Trace LEU/UL (Negative); Nitrate Urine Negative (Negative); Non Pathogenic Casts 0-2; Specific Grav Ur 1.021 (1.001-1.035)
[2025-04-26] MEDS: TAMSULOSIN HCL 0.4 MG CAPSULE 0.8 MG PO (20:23)
[2025-04-26] MEDS: MELATONIN 3 MG TABLET PO (20:23)
[2025-04-26] MEDS: INSULIN GLARGINE (*BKC) 100 UNITS/ML 10 UNITS SUB-Q (20:25)
[2025-04-27] VITALS (10 sets, daily range): BP systolic 130–164; BP diastolic 67–70; PULSE 78–102; RESP 16–28; TEMP 36.7–37.1; O2SAT 90–95
[2025-04-27] MEDS: IPRATROPIUM BR 0.02% INH SOLN 0.5 MG/2.5 ML VIAL INHALATION ×3 (01:43→14:17)
[2025-04-27 05:56] LABS: Hematocrit 39.2 % (42.0-52.0); Hemoglobin 12.9 g/dL (14.0-18.0); Immature Granulocyte Percent A 4.4 % (0-0.5); Lymphocytes Absolute Auto 0.59 K/mm3 (0.9-3.2); Mean Corpuscular HGB Conc 32.9 g/dl (32-36); Mean Corpuscular Hemoglobin 30.7 pg (26-34); Mean Corpuscular Volume 93.3 fl (80-100); Nucleated Red Blood Cells Absolute Auto 0.000 K/mm3 (0.0-0.012); Nucleated Red Blood Cells Perc 0.0 % (0.0-0.2); Platelet Count Result 318 k/mm3 (150-375); Red Blood Count 4.20 M/mm3 (4.6-6.20); White Blood Count 11.4 K/mm3 (4.5-10.0)
[2025-04-27 06:18] LABS: Anion Gap 6 mmol/L (4-12); Blood Urea Nitrogen 29 mg/dL (9-20); Calcium 8.6 mg/dL (8.4-10.2); Carbon Dioxide 27 mmol/L (22-30); Chloride 98 mmol/L (98-107); Estimated CRCL calculation 54 ml/min; Estimated Glomerular Filt Rate > 60; Glucose 106 mg/dL (65-110); Potassium 4.0 mmol/L (3.4-5.0); Sodium 131 mmol/L (137-145)
[2025-04-27] MEDS: LOSARTAN POTASSIUM 25 MG TABLET PO (08:13)
[2025-04-27] MEDS: NYSTATIN 100,000 UNITS/ML SUSP 5 ML ORAL.SUSP PO ×2 (08:13→12:44)
[2025-04-27] MEDS: ASPIRIN 81 MG ENTERIC TABLET PO (08:13)
[2025-04-27] MEDS: PROPRANOLOL HCL 10 MG TABLET PO ×2 (08:13→12:44)
[2025-04-27] MEDS: ATORVASTATIN 20 MG TABLET PO (08:14)
[2025-04-27] MEDS: FLUTICASONE PROPIONATE 0.05% NA SPR 16 GM BTL (*BKC) 1 SPRAY NASAL (08:14)
[2025-04-27] MEDS: PANTOPRAZOLE 40 MG TABLET PO (08:14)
[2025-04-27] MEDS: guaiFENesin 12 HR 600 MG TABCR 1200 MG PO (08:14)
[2025-04-27] MEDS: SODIUM CHLORIDE 1 GM TABLET PO (08:14)
[2025-04-27] MEDS: DUTASTERIDE 0.5 MG CAPSULE PO (08:14)
[2025-04-27] MEDS: DOCUSATE SODIUM 100 MG CAPSULE PO (08:14)
[2025-04-27] MEDS: levoFLOXacin 750 MG/D5W 150 ML 750 MG/150 ML BAG 100 MG IVPB (13:11)
--- NOTE | 2025-04-27 13:11 | P.DS_ITS ---
DS: Admitting Diagnosis Discharge Date 04/27/25 Admitting Diagnosis SHOrtness DS: Discharge Diagnosis Discharge Diagnosis (1) COPD (chronic obstructive pulmonary disease): Code(s): J44.9 - Chronic obstructive pulmonary disease, unspecified Status: Acute DS: Summary Hospital Course Hospital Course: Reason for Admission: Acute on chronic dyspnea and altered mental status in the setting of COPD exacerbation, multifactorial delirium, and multiple comorbidities. Hospital Course: Mr. Davila is an 89-year-old male with a history of severe COPD, atrial fibrillation, hypertension, hyperlipidemia, benign prostatic hyperplasia, vascular dementia, and chronic hyponatremia. He was admitted after being discharged less than 24 hours prior, with recurrent shortness of breath on minimal exertion and confusion. Family reported increased confusion and functional decline. Initial Evaluation: * On admission, he was afebrile, hypoxemic (O2 sat 89?94% on room air), and tachypneic. * Labs notable for leukocytosis (WBC 21.1), chronic hyponatremia (Na 123), hyperglycemia (glucose 196), and stable H/H. * Chest x-ray: No acute cardiopulmonary findings initially. * CTA chest/abdomen/pelvis: No PE, no aortic dissection, no acute abdominal pathology. Notable for diffuse centrilobular emphysema, 13.5 x 9.7 mm LLL pulmonary nodule, and subpleural reticulations. * ABG: pH 7.48, pCO2 29, pO2 57, HCO3 21. * Extended respiratory pathogen panel: Positive for enterovirus/rhinovirus. * Echo (November 2024): Normal LV size and function, mild concentric LVH, grade I diastolic dysfunction, no pulmonary hypertension, no shunt. * Neurology: MRI brain (November 2024) with severe white matter changes, prominent ventricles, possible mild hydrocephalus ex vacuo. Cognitive impairment likely multifactorial (vascular dementia, metabolic encephalopathy, infection, hyponatremia, hyperthyroidism). * Endocrinology: TSH <0.015, free T4 2.23, consistent with hyperthyroidism. No thyroid nodule. Methimazole initiated. Hospital Course: * Treated for acute COPD exacerbation with IV Solu-Medrol, transitioned to oral prednisone taper, inhaled ipratropium, guaifenesin, and Breo Ellipta resumed. * Albuterol minimized due to history of atrial fibrillation. * Treated empirically for possible pneumonia given radiographic infiltrates and persistent leukocytosis: Started on IV Levaquin, later transitioned to oral Levaquin and doxycycline. * Blood cultures obtained. * Hyponatremia managed with sodium supplementation and fluid management. * Hyperthyroidism managed with methimazole; propranolol initiated but discontinued due to COPD. * BPH managed with tamsulosin and dutasteride; intermittent straight catheterization for high post-void residuals. * Delirium improved with correction of metabolic derangements and infection control. * Physical therapy and discharge planning coordinated with family and facility. * No new arrhythmias during admission; cardiology signed off. * Urology, Endocrinology and neurology follow-up arranged. Discharge Chest X-ray (04/26/25): * New bilateral infiltrates consistent with pneumonia. Disposition: * Discharged to assisted living facility in stable condition. * No supplemental oxygen required at rest; to repeat walk oximetry as outpatien t. * Family and facility educated on medication changes, inhaler/nebulizer use, and signs of clinical deterioration. Discharge Medications: * Levofloxacin 750 mg PO every 48 hours x 6 days (to complete 7-day course) * Doxycycline 100 mg PO BID x 6 days * Prednisone taper (per pulmonology) * Methimazole 5 mg PO daily * Sodium chloride 1000 mg PO BID * Tamsulosin 0.8 mg PO HS * Dutasteride 0.5 mg PO daily * Guaifenesin 1200 mg PO BID * Breo Ellipta 100/25 mcg 1 puff daily * Ipratropium nebulizer Q6H PRN * Atorvastatin 20 mg PO daily * Amlodipine 5 mg PO daily * Losartan 50 mg PO daily * Buspirone 5 mg PO BID * Aspirin 81 mg PO daily * Benzonatate 200 mg PO Q8H PRN cough * Polyethylene glycol 17 g PO QAM PRN * Docusate sodium 100 mg PO BID PRN Allergies:?No known drug allergies. Follow-Up and Recommendations: * Pulmonology:?Outpatient follow-up in 2?3 weeks for COPD management, repeat chest CT or PET in 3 months for LLL nodule, PFT and 6-minute walk test if feasible, consider pulmonary rehab. * Neurology:?Outpatient follow-up in 1 month for cognitive assessment and possible further workup for parkinsonism. * Urology:?Outpatient follow-up for BPH and post-void residual monitoring. * Endocrinology:?Outpatient follow-up for hyperthyroidism and hyponatremia management. * Primary Care:?Monitor electrolytes, renal function, and blood glucose; contin ue chronic disease management. * Facility:?Continue fall precautions, monitor for delirium, ensure medication adherence, and monitor for signs of infection or decompensation. Condition at Discharge: Stable, at cognitive and functional baseline per family, afebrile, hemodynamically stable, no acute distress, able to ambulate with walker, no new focal deficits. Time Spent with Patient Time attestation: Total time spent providing and/or coordinating discharge services: DS: Data Data Completed and Pending Labs on day of discharge: Labs from last 24 hours 04/27/25 04/27/25 04/27/25 11:30 07:46 05:03 WBC 11.4 H RBC 4.20 L Hgb 12.9 L Hct 39.2 L MCV 93.3 MCH 30.7 MCHC 32.9 RDW 13.2 Plt Count 318 MPV 9.0 Immature Gran % (Auto) 4.4 H Neut % (Auto) 82.3 H Lymph % (Auto) 5.2 L Hawkins % (Auto) 7.2 Eos % (Auto) 0.7 Baso % (Auto) 0.2 Lymph # (Auto) 0.59 L Hawkins # (Auto) 0.8 H Eos # (Auto) 0.1 Baso # (Auto) 0.0 Abs Immat Gran (auto) 0.50 H Absolute Neuts (auto) 9.4 H Absolute Nucleated RBC 0.000 Nucleated RBC % 0.0 Sodium 131 L Potassium 4.0 Chloride 98 Carbon Dioxide 27 Anion Gap 6 BUN 29 H Creatinine 0.80 Estim Creat Clear Calc 54 Estimated GFR > 60 Glucose 106 POC Capillary Glucose 130 H 103 Serum Osmolality Calcium 8.6 Phosphorus Magnesium C-Reactive Protein Total Protein (PEP) Albumin (PEP) Globulin (PEP) Albumin/Globulin Ratio Xlldo-8-Oketnxntt Bvcrf-9-Rmrxvxxst Beta Globulins Gamma Globulins TSH Random Cortisol Urine Color Urine Appearance Urine pH Ur Specific [place] Urine Protein Urine Glucose (UA) Urine Ketones Ur Blood (Man) Urine Nitrate Urine Bilirubin Urine Urobilinogen Leukocyte Esterase Rfl Urine RBC Urine WBC Ur Squamous Epith Cells Urine Bacteria Urine Casts Urine Osmolality Pr Electrophoresis MSpike 04/26/25 04/26/25 04/26/25 20:27 18:17 16:39 WBC RBC Hgb Hct MCV MCH MCHC RDW Plt Count MPV Immature Gran % (Auto) Neut % (Auto) Lymph % (Auto) Hawkins % (Auto) Eos % (Auto) Baso % (Auto) Lymph # (Auto) Hawkins # (Auto) Eos # (Auto) Baso # (Auto) Abs Immat Gran (auto) Absolute Neuts (auto) Absolute Nucleated RBC Nucleated RBC % Sodium Potassium Chloride Carbon Dioxide Anion Gap BUN Creatinine Estim Creat Clear Calc Estimated GFR Glucose POC Capillary Glucose 216 H 251 H Serum Osmolality Calcium Phosphorus Magnesium C-Reactive Protein Total Protein (PEP) Albumin (PEP) Globulin (PEP) Albumin/Globulin Ratio Vflxt-8-Tdykkhqpe Ykmgf-1-Caxgmshtu Beta Globulins Gamma Globulins TSH Random Cortisol Urine Color Yellow Urine Appearance Clear Urine pH 7.0 Ur Specific [place] 1.021 Urine Protein Negative Urine Glucose (UA) Trace H Urine Ketones Negative Ur Blood (Man) Negative Urine Nitrate Negative Urine Bilirubin Negative Urine Urobilinogen 1.0 Leukocyte Esterase Rfl Trace H Urine RBC 0-2 Urine WBC 0-5 Ur Squamous Epith Cells None seen Urine Bacteria None seen Urine Casts 0-2 Urine Osmolality Pending Pr Electrophoresis MSpike 04/26/25 04/26/25 13:46 13:44 WBC 15.7 H RBC 3.80 L Hgb 11.8 L Hct 34.6 L MCV 91.1 MCH 31.1 MCHC 34.1 RDW 13.2 Plt Count 288 MPV 8.8 Immature Gran % (Auto) 2.2 H Neut % (Auto) 92.5 H Lymph % (Auto) 2.5 L Hawkins % (Auto) 2.4 L Eos % (Auto) 0.2 Baso % (Auto) 0.2 Lymph # (Auto) 0.39 L Hawkins # (Auto) 0.4 Eos # (Auto) 0.0 Baso # (Auto) 0.0 Abs Immat Gran (auto) 0.35 H Absolute Neuts (auto) 14.5 H Absolute Nucleated RBC 0.000 Nucleated RBC % 0.0 Sodium 125 L Potassium 4.7 Chloride 98 Carbon Dioxide 22 Anion Gap 5 BUN 31 H Creatinine 0.86 Estim Creat Clear Calc 51 Estimated GFR > 60 Glucose 165 H POC Capillary Glucose Serum Osmolality Pending Calcium 7.9 L Phosphorus 2.9 Magnesium 2.1 C-Reactive Protein 2.2 H Total Protein (PEP) Pending Albumin (PEP) Pending Globulin (PEP) Pending Albumin/Globulin Ratio Pending Rohup-1-Gqzbvsojf Pending Eewla-7-Dbelqnydv Pending Beta Globulins Pending Gamma Globulins Pending TSH < 0.015 L Random Cortisol 13.00 Urine Color Urine Appearance Urine pH Ur Specific [place] Urine Protein Urine Glucose (UA) Urine Ketones Ur Blood (Man) Urine Nitrate Urine Bilirubin Urine Urobilinogen Leukocyte Esterase Rfl Urine RBC Urine WBC Ur Squamous Epith Cells Urine Bacteria Urine Casts Urine Osmolality Pr Electrophoresis MSpike Pending Discharge Plan Discharge Attending physician on discharge: Slick Muller Consulting providers: Naty Granados; Brandon Hill; Tc Wilkins; Aurea Archer; Don Albert Discharging Clinician: Slick Muller Anticipated Discharge Date/Time: 04/27/25 12:28 Patient Disposition: [facility] Activity: october shower Diet: as tolerated and regular Discharge Instructions: Follow up with endocrinology Delores Madison MD [address], [place] [address] Patient Instructions: Antibiotic Form Patient Language: Kinyarwanda Stand Alone Forms: General Discharge Information Follow-up/Referrals: Bj Scott MD [Physician, Urology] - 1 Week Referral Note: referral in 1 week for BPH Mely Gupta APRN [Primary Care Provider, Family Practice] Referral Note: F/u with PCP in 3-5 days Don Albert MD [Physician, Neurology] Referral Note: F/u with neurology as instructed Delores Zuñiga MD [Physician, Endocrinology] Referral Note: F/u with endocrinology in 1 week Brandon Hill MD [Physician, Pulmonology] Referral Note: F/u with Pulm as instructed Discharge Medications: New melatonin 3 mg Tablet 3 mg PO HS Qty: 30 0RF tamsulosin 0.4 mg Capsule 0.8 mg PO HS 30 Days Qty: 60 0RF sodium chloride 1,000 mg Tablet,Soluble 1,000 mg PO BID 7 Days Qty: 14 0RF doxycycline hyclate 100 mg tablet 100 mg PO BID 6 Days Qty: 12 0RF levofloxacin 750 mg tablet 750 mg PO DAILY Qty: 6 0RF prednisone 10 mg tablet 10 mg PO DIRECTED Qty: 9 0RF Rx Instructions: see taper instructions 2 tabs daily x 2 days, then 1 tab daily x 3 days, then 5mg daily x 3 days then stop. pantoprazole 40 mg Tablet,Delayed Release (Dr/Ec) 40 mg PO QAM Qty: 30 0RF propranolol 10 mg Tablet 10 mg PO BID 30 Days Qty: 60 0RF methimazole 5 mg tablet 5 mg PO DAILY Qty: 30 1RF Continued albuterol sulfate [Ventolin HFA] 90 mcg/actuation HFA aerosol inhaler 2 puff inhalation Q4H PRN (Reason: shortness of breath or wheezing) aspirin 81 mg tablet,delayed release (DR/EC) 81 mg PO DAILY polyethylene glycol 3350 [Miralax] 17 gram Powder In Packet 17 g PO QAM Qty: 7 0RF amlodipine 5 mg tablet 5 mg PO DAILY Qty: 30 0RF losartan 100 mg Tablet 50 mg PO DAILY buspirone 5 mg Tablet 5 mg PO Q12HR Qty: 60 0RF docusate sodium 100 mg Capsule 100 mg PO BID Qty: 30 0RF fluticasone propionate [24 Hour Allergy Relief] 50 mcg/actuation spray,suspension 1 spray intranasal BID Rx Instructions: administer into each nostril benzonatate 200 mg capsule 200 mg PO .Q8HR PRN (Reason: cough) fluticasone furoate-vilanterol [Breo Ellipta] 100-25 mcg/dose blister with device 1 inh inhalation DAILY atorvastatin [Lipitor] 40 mg tablet 20 mg PO DAILY Qty: 90 3RF Date of admission: 04/18/25 17:19 Primary Care Provider: Mely Gupta Admitting Provider: Slick Muller Attending physician on admission: Slick Muller Condition: Stable
[2025-04-27] MEDS: DOXYCYCLINE IV 100 MG in SODIUM CHLORIDE 0.9% IV 100 ML IVPB (14:48)
[2025-04-27 15:58] LABS: MRSA (PCR) NOT DETECTED (NOT DETECTE)
[2025-04-28 13:09] LABS: Albumin 2.2 g/dL (2.9-4.4); Alpha-1-Globulin 0.2 g/dL (0.0-0.4); Alpha-2-Globulin 0.8 g/dL (0.4-1.0); Gamma Globulin 0.6 g/dL (0.4-1.8)
[2025-05-01 06:08] LABS: Osmolality, Urine 719 mOsmol/kg (.)
[2025-05-01 23:08] LABS: Osmolality, Serum 271 mOsmol/kg (280-301)
== END 2025-04-27 16:25 | DRG 190 ==
LOC: ANHED 21:41 → ANH3MEDSUR 23:29
PROVIDERS: Internal Medicine; Internal Medicine Critical Care Medicine; Internal Medicine Nephrology; Internal Medicine Pulmonary Disease; Nurse Practitioner; Nurse Practitioner Acute Care; Student in an Organized Health Care Education/Training Program; Admitting Provider Internal Medicine; Emergency Provider Emergency Medicine; PCP Nurse Practitioner Family; Visit Provider Internal Medicine
DX: J44.0 Chronic obstructive pulmonary disease with (acute) lower respiratory infection (principal); G93.41 Metabolic encephalopathy; J12.89 Other viral pneumonia; E87.1 Hypo-osmolality and hyponatremia; I50.32 Chronic diastolic (congestive) heart failure; I47.19 Other supraventricular tachycardia; J20.6 Acute bronchitis due to rhinovirus; J44.1 Chronic obstructive pulmonary disease with (acute) exacerbation; G91.4 Hydrocephalus in diseases classified elsewhere; F01.50 Vascular dementia, unspecified severity, without behavioral disturbance, psychotic disturbance, mood disturbance, and anxiety; M47.26 Other spondylosis with radiculopathy, lumbar region; I73.9 Peripheral vascular disease, unspecified; R73.9 Hyperglycemia, unspecified; T38.0X5A Adverse effect of glucocorticoids and synthetic analogues, initial encounter; I11.0 Hypertensive heart disease with heart failure; R91.1 Solitary pulmonary nodule; E78.5 Hyperlipidemia, unspecified; I67.9 Cerebrovascular disease, unspecified; D64.9 Anemia, unspecified; I45.10 Unspecified right bundle-branch block; N40.1 Benign prostatic hyperplasia with lower urinary tract symptoms; R35.0 Frequency of micturition; R35.1 Nocturia; J43.9 Emphysema, unspecified; Z20.822 Contact with and (suspected) exposure to COVID-19; Z66 Do not resuscitate; E03.9 Hypothyroidism, unspecified; R14.0 Abdominal distension (gaseous); R60.0 Localized edema; R25.1 Tremor, unspecified; H91.93 Unspecified hearing loss, bilateral; M21.371 Foot drop, right foot; I65.01 Occlusion and stenosis of right vertebral artery; Z72.820 Sleep deprivation; F32.A Depression, unspecified; F41.9 Anxiety disorder, unspecified; Z87.11 Personal history of peptic ulcer disease; Z96.21 Cochlear implant status; Z90.79 Acquired absence of other genital organ(s); Z91.81 History of falling; Z82.49 Family history of ischemic heart disease and other diseases of the circulatory system; Z90.49 Acquired absence of other specified parts of digestive tract; Z95.1 Presence of aortocoronary bypass graft; Z87.891 Personal history of nicotine dependence; Z79.82 Long term (current) use of aspirin; Z79.51 Long term (current) use of inhaled steroids; Z79.52 Long term (current) use of systemic steroids; Z86.73 Personal history of transient ischemic attack (TIA), and cerebral infarction without residual deficits; Z86.711 Personal history of pulmonary embolism
CPT/HCPCS: 36415; 36600; 70450; 71045; 71275; 74177; 80048; 80053; 81001; 82103; 82104; 82533; 82570; 82607; 82746; 82805; 82948; 83036; 83605; 83690; 83735; 83880; 83930; 83935; 84100; 84145; 84153; 84155; 84165; 84300; 84439; 84443; 84481; 84484; 85018; 85025; 85027; 85610; 85730; 86140; 86593; 86618; 87040; 87637; 87641; 93005; 93308; 93970; 94640; 94762; 96361; 96374; 96375; 96376; 97110; 97116; 97161; 97166; 97530; 97535; 99285; A9270; G0103; G0378; J1815; J1938; J1956; J2470; J2919; J7030; J7512; Q9967

== ENCOUNTER 2025-04-28 15:09 | Inpatient (IN) | payer OTHER, MEDICAID, SELFPAY ==
[2025-04-28] VITALS (8 sets, daily range): BP systolic 140–158; BP diastolic 54–76; PULSE 86–96; RESP 18–24; TEMP 36.3–36.7; O2SAT 94–100; BMI 20.2
--- NOTE | ~2025-04-28 | CT_ITS ---
EXAMINATION: CT diagnostic chest w con, 04/28/2025 16:40 CDT HISTORY: SOB, pneumonia COMPARISON: No comparisons available. TECHNIQUE: CT scan of the chest was performed with contrast. Isovue 300, 92cc injected IV. One or more of the following dose reduction techniques were used: automated exposure control, adjustment of the mA and/or kV according to patient size, use of iterative reconstruction technique. FINDINGS: No significant coronary calcification is present ([id number]) LUNGS: Post cholecystectomy.2 no tracheomalacia. Basilar bronchiectasis with bronchial wall thickening and mucous plugging noted in the lung periphery. Moderate emphysematous changes. No bullous formation. Moderate pulmonary fibrotic changes with early honeycombing. There are basilar infiltrates bilate rally with bilateral micronodules many of which demonstrate a tree-in-bud distribution. Within the left lower lobe abutting the fissure spiculated nodule measures 6 mm. Apical scarring is noted bilaterally. There are additional micronodules in a tree-in-bud distribution noted in the lingula and the right middle lobe. Right upper lobe 6 mm micronodule. HEART AND PERICARDIUM: Within normal limits. AORTA: Normal caliber aorta. ADENOPATHY/MEDIASTINUM: None. LIMITED VIEWS OF THE ABDOMEN: Nonspecific patulous appearance of the esophagus. OSSEOUS STRUCTURES: No sclerotic or lytic lesions. No acute rib fractures. OVERLYING SOFT TISSUES: Unremarkable. THYROID: The thyroid is unremarkable. IMPRESSION: Bilateral probable bronchopneumonia superimposed on chronic lung disease. There are micronodules which are probably infectious, underlying neoplasm is not excluded. Follow-up after treatment is recommended to assess improvement Reviewed, dictated and finalized at location P. IMPRESSION: Bilateral probable bronchopneumonia superimposed on chronic lung disease. There are micronodules which are probably infectious, underlying neoplasm is not exc luded. Follow-up after treatment is recommended to assess improvement
--- NOTE | ~2025-04-28 | CT_ITS ---
EXAMINATION: CT brain wo con DATE: 05/11/2025 14:00 INDICATION: Altered mental status TECHNIQUE: Computed tomography (CT) of the head was performed without intravenous contrast. Sagittal and coronal reconstructions were performed. The mA was adjusted according to patient size. Iterative reconstruction technique was employed. The dose-length product was 756.67 mGy-cm. COMPARISON: head CT dated 04/28/2025 FINDINGS: No acute intracranial hemorrhage, acute infarction or abnormal extra axial fluid collection. There is moderate scattered white matter hypoattenuation consistent with chronic small vessel ischemic disease. Symmetric prominence of the sulci and ventricles consistent with moderate age-appropriate diffuse cerebral volume loss. Ventricles are normal and symmetric. No mass/mass effect. Changes of bilateral intraocular lens replacement. The orbits and mastoid air cells are normal. Mild mucosal thickening the bilateral ethmoid sinuses. Intracranial calcified cerebral atherosclerosis is noted. IMPRESSION: 1. No acute intracranial process. 2. Stable appearance of age-related changes including moderate diffuse volume loss and moderate scattered white matter hypoattenuation consistent with chronic small vessel ischemic disease. Reviewed, dictated and finalized at location A. [employer] IMPRESSION: 1. No acute intracranial process. 2. Stable appearance of age-related changes including moderate diffuse volume l oss and moderate scattered white matter hypoattenuation consistent with chronic small vessel ischemic disease.
--- NOTE | ~2025-04-28 | CT_ITS ---
EXAMINATION: CT brain wo con DATE: 04/28/2025 16:36 INDICATION: Altered mental status TECHNIQUE: Computed tomography (CT) of the head was performed without intravenous contrast. The dose-length product was 681.00 mGy-cm. COMPARISON: 04/22/2025 FINDINGS: No acute intracranial hemorrhage. No mass effect. No midline shift. No hydrocephalus. No skull fracture. Visualized paranasal sinuses mastoid air cells are clear. There are several low density regions scattered throughout the periventricular and deep white matter which are favored to represent chronic ischemic white matter change. Cerebral atrophy appropriate for the patient's age. IMPRESSION: 1. No acute intracranial hemorrhage. No mass effect. 2. Probable chronic ischemic white matter change. 3. Cerebral atrophy appropriate for the patient's age. If symptoms persist or worsen, consider a short-term follow-up study or additional imaging for further assessment. Reviewed, dictated and finalized at location Q. IMPRESSION: 1. No acute intracranial hemorrhage. No mass effect. 2. Probable chronic ischemic white matter change. 3. Cerebral atrophy appropriate for the patient's age. If symptoms persist or worsen, consider a short-term follow-up study or additio nal imaging for further assessment.
--- NOTE | ~2025-04-28 | XR_ITS ---
EXAMINATION: XR chest 1V portable DATE: 05/11/2025 11:36 INDICATION: Shortness of breath TECHNIQUE: frontal view of the chest was obtained. COMPARISON: Chest radiograph dated 04/26/[address] dated 04/28/2025 FINDINGS: Mild hyperexpansion of lungs consistent with emphysema better appreciated on prior CT. Again seen are coarse interstitial and mild airspace opacities in the left lower lung zone, left perihilar and right infrahilar regions consistent with pneumonia. Calcified nodule left lower lung zone consistent with old granulomatous disease. No pleural effusion or pneumothorax. Heart size is normal. IMPRESSION: 1. No significant change in interstitial and mild airspace opacities in the left lower lung zone, left perihilar and right infrahilar regions consistent with pneumonia. Reviewed, dictated and finalized at location A. T COORDINATOR IMPRESSION: 1. No significant change in interstitial and mild airspace opacities in the lef t lower lung zone, left perihilar and right infrahilar regions consistent with pneumonia.
--- NOTE | ~2025-04-28 | CT_ITS ---
EXAMINATION:CT diagnostic chest w con DATE: 05/11/2025 14:02 INDICATION: Shortness of breath TECHNIQUE: Computed tomography (CT) of the chest was performed with intravenous contrast. The dose-length product (DLP) was 193.36 mGy-cm. COMPARISON: April 282024 FINDINGS: Degree of consolidation has increased on today's exam with posterior segment of the left lower lobe measuring 4.8 cm in greatest cephalocaudal dimension compared to 3.2 cm on the previous exam. Compared image 83 of series 602 the coronal images on today's exam image 84 of series 602 the coronal images on the April 20 exam. Upper lobes are predominantly spared. Central large airways are patent. Heart and great vessels stable. No thoracic aortic aneurysm or Central/large pulmonary emboli. No bulky lymphadenopathy. The bones are stable. No acute process seen in the upper abdomen. Surgical clips in the gallbladder fossa. IMPRESSION: Worsening multifocal consolidative process with underlying malignancy not excluded. Reviewed, dictated and finalized at location A. [employer] IMPRESSION: Worsening multifocal consolidative process with underlying maligna ncy not excluded.
[2025-04-28 15:44] LABS: Hematocrit 40.2 % (42.0-52.0); Hemoglobin 13.5 g/dL (14.0-18.0); Immature Granulocyte Percent A 2.0 % (0-0.5); Lymphocytes Absolute Auto 0.38 K/mm3 (0.9-3.2); Mean Corpuscular HGB Conc 33.6 g/dl (32-36); Mean Corpuscular Hemoglobin 31.0 pg (26-34); Mean Corpuscular Volume 92.4 fl (80-100); Nucleated Red Blood Cells Absolute Auto 0.000 K/mm3 (0.0-0.012); Nucleated Red Blood Cells Perc 0.0 % (0.0-0.2); Platelet Count Result 292 k/mm3 (150-375); Red Blood Count 4.35 M/mm3 (4.6-6.20); White Blood Count 8.7 K/mm3 (4.5-10.0)
[2025-04-28 15:53] LABS: Add Urine Microscopic? YES; Appearance Urine Clear (Clear); Glucose Urine UA Negative (Negative); Leukocyte Esterase Ur Negative LEU/UL (Negative); Nitrate Urine Negative (Negative); Non Pathogenic Casts 0-2; Specific Grav Ur 1.016 (1.001-1.035)
--- NOTE | 2025-04-28 15:53 | ED.GENADULT ---
HPI - General Adult General Chief complaint: Altered Mental Status Stated complaint: AMS? Time Seen by Provider: 04/28/25 15:11 History of Present Illness HPI narrative: 89-year-old male present to the emergency department for evaluation for increased confusion. Patient is typically A&O x3 a baseline. retirement thought the patient had an episode oxygen desaturation and was more confused than normal. Patient was just discharged from the hospital yesterday after being treated for pneumonia. Patient is saturating at 100% on room air and has no tachypnea. Patient denies shortness of breath. Patient denies any falls or injuries patient denies any pain. Related Data Home Medications ?Medication ?Instructions ?Recorded ?Confirmed ?Last Taken ?Type aspirin 81 mg tablet,delayed 81 mg PO DAILY 12/12/21 04/17/25 04/16/25 History release losartan 100 mg tablet 50 mg PO DAILY 01/22/25 04/17/25 04/16/25 History albuterol sulfate 90 mcg/actuation 2 puff inhalation Q4H PRN 03/24/25 04/17/25 Unknown History aerosol inhaler (Ventolin HFA) shortness of breath or wheezing benzonatate 200 mg capsule 200 mg PO .Q8HR PRN cough 04/16/25 04/17/25 Unknown History fluticasone furoate 100 1 inh inhalation DAILY 04/16/25 04/17/25 Unknown History mcg-vilanterol 25 mcg/dose inhalation powder (Breo Ellipta) fluticasone propionate 50 1 spray intranasal BID 04/16/25 04/17/25 Unknown History mcg/actuation nasal spray,suspension (24 Hour Allergy Relief) Allergies Allergy/AdvReac Type Severity Reaction Status Date / Time No Known Allergies Allergy Verified 04/17/25 00:42 Review of Systems Review of Systems: All systems reviewed & are unremarkable except as noted in HPI and below PMFSH Past Medical History Medical History (Updated 04/28/25 @ 18:45 by Katie Feng APRN) Chronic obstructive pulmonary disease CVA (cerebral vascular accident) BPH (benign prostatic hyperplasia) Seasonal allergies Elevated fasting glucose A1c 5.8% on 04/19/2025 Hyperthyroidism without thyroid nodule Hypertension Cerebrovascular disease PSVT (paroxysmal supraventricular tachycardia) Pulmonary emboli Peptic ulcer disease Lumbar radiculopathy Lumbar spondylosis Peripheral vascular disease Depression Seasonal allergies Anemia Atrial fibrillation Anxiety Constipation Dementia Hyperlipidemia Surgical History Surgical History H/O transurethral resection of prostate H/O cardiac catheterization H/O angioplasty Iliac vessels H/O cataract extraction Status post peripheral artery angioplasty with insertion of stent History of cholecystectomy Family History Family History Sibling CHF (congestive heart failure) Other Unknown family medical history Social History Social History Social History: He is a . He is [employer]. he is retired Healthcare power of contracts attorney: Roseanne Noguera. Code status: DNR Smoking packs per day: 1 Smoking cigarettes per day: 20.0 Smoking status: Former smoker Second hand tobacco smoke exposure: No Alcohol intake: never Drinks per week: 1 Substance use: never Substance use type: does not use Do You Feel Safe in your Home?: Yes Lack of Transportation: No Lack of Food: Never True Current Housing: I Have Housing Concerned About Future Housing: No Difficulty Paying Gas/Electric Bills: No Difficulty Paying for Meds: No Currently Unemployed: No Education: Grade School Difficulty w/ Childcare or Family Care: No Living arrangements: assisted living Occupation/Education: retired Gender identity (if verbalized by the patient): Male Sexual Orientation (if Verbalized by the Patient): Straight or Heterosexual Spiritual care concerns: Yes Agree to blood products: Yes Exam Narrative: APPEARANCE: Confused but no distress HEAD: normocephalic, atraumatic. EYES: PERRLA/EOMI, conjunctivae clear. NOSE: Normal no drainage EARS:TMS clear with good light reflex. THROAT: Pharynx clear, no exudate. NECK: Supple. No adenopathy, no masses. RESPIRATORY: Airway patent, respirations nonlabored. Clear to auscultation bilaterally, no rales, rhonchi, wheezing. CARDIOVASCULAR: Regular rate and rhythm without murmurs rubs or gallops. ABDOMINAL: Soft, nontender, nondistended, normal bowel sounds MUSCULOSKELETAL: Moves all extremities. Strength/ROM intact, No edema, No calf tenderness. NEURO: Alert but disorientated, no focal abnormalities on neuro exam Course Vital Signs Vital signs: Vital Signs Pulse Rate 89 04/28/25 15:05 Respiratory Rate 23 H 04/28/25 15:05 Blood Pressure 158/72 H 04/28/25 15:05 Pulse Oximetry 100 04/28/25 15:05 Oxygen Delivery Room Air 04/28/25 15:05 Temperature 98.0 F 04/28/25 15:21 Pulse Rate 96 04/28/25 18:45 Respiratory Rate 24 H 04/28/25 18:45 Blood Pressure 140/74 04/28/25 18:45 Pulse Oximetry 94 04/28/25 18:45 Oxygen Delivery Room Air 04/28/25 15:21 Medical Decision Making MDM Narrative Medical decision making narrative: 89-year-old male present to the emergency department for evaluation for worsening mental status. Family states the patient is not at his normal baseline. Patient is A&O x1. Patient was just discharged from the hospital yesterday. Patient was reportedly having a low pulse ox at his care facility. Upon arrival emergency department patient is afebrile with no leukocytosis and hemoglobin of 13.5. Patient has an INR of 1.1. Patient does have a sodium of 126 which is lower than his sodium at time of admission. Patient does have an elevated CRP of 1.8 which is improved compared to his time of admission. UA was positive for red blood cells but this was a cath sample, no underlying evidence of infection. Patient was positive for COVID this is a new diagnosis. CT head showed no acute intracranial abnormality. Chest CT did show probable bronchopneumonia superimposed on chronic lung disease. Blood cultures were ordered and patient was started on cefepime. Case was discussed with hospitalist patient was accepted for admission. Patient will be started on remdesivir upon admission. Patient family were updated on the results of the workup plan for treatment. Differential Diagnosis Differential Diagnosis: COVID, RSV, influenza, pneumonia, subdural hematoma, subarachnoid hemorrhage, UTI Vital Signs Vital Signs: Vital Signs Pulse Rate 89 04/28/25 15:05 Respiratory Rate 23 H 04/28/25 15:05 Blood Pressure 158/72 H 04/28/25 15:05 Pulse Oximetry 100 04/28/25 15:05 Oxygen Delivery Room Air 04/28/25 15:05 Temperature 98.0 F 04/28/25 15:21 Pulse Rate 96 04/28/25 18:45 Respiratory Rate 24 H 04/28/25 18:45 Blood Pressure 140/74 04/28/25 18:45 Pulse Oximetry 94 04/28/25 18:45 Oxygen Delivery Room Air 04/28/25 15:21 Lab Data Lab results reviewed: Yes I reviewed the patient's lab results. 04/28/25 15:37 04/28/25 15:37 Labs: Lab Results 04/28/25 04/28/25 04/28/25 Range/Units 15:37 15:39 15:41 WBC 8.7 (4.5-10.0) K/mm3 RBC 4.35 L (4.6-6.20) M/mm3 Hgb 13.5 L (14.0-18.0) g/dL Hct 40.2 L (42.0-52.0) % MCV 92.4 (80-100) fl MCH 31.0 (26-34) pg MCHC 33.6 (32-36) g/dl RDW 13.3 (11.5-14.5) % Plt Count 292 (150-375) k/mm3 MPV 8.6 (7.4-10.4) fl Immature Gran % (Auto) 2.0 H (0-0.5) % Neut % (Auto) 88.3 H (45.5-73.1) % Lymph % (Auto) 4.4 L (18.3-44.2) % [place] % (Auto) 5.1 (2.6-8.5) % Eos % (Auto) 0.0 (0-4.4) % Baso % (Auto) 0.2 (0.2-1.2) % Lymph # (Auto) 0.38 L (0.9-3.2) K/mm3 [place] # (Auto) 0.4 (0.1-0.6) K/mm3 Eos # (Auto) 0.0 (0-0.3) K/mm3 Baso # (Auto) 0.0 (0.0-0.1) K/mm3 Abs Immat Gran (auto) 0.17 H (0.00-0.031) K/mm3 Absolute Neuts (auto) 7.7 H (1.3-6.7) K/mm3 Absolute Nucleated RBC 0.000 (0.0-0.012) K/mm3 Nucleated RBC % 0.0 (0.0-0.2) % PT 14.1 (11.1-14.7) Seconds INR 1.1 APTT 25.7 (22.3-36.8) Seconds Sodium 126 L (137-145) mmol/L Potassium 4.8 (3.4-5.0) mmol/L Chloride 95 L (98-107) mmol/L Carbon Dioxide 26 (22-30) mmol/L Anion Gap 5 (4-12) mmol/L BUN 24 H (9-20) mg/dL Creatinine 0.88 (0.7-1.3) mg/dL Estim Creat Clear Calc 50 ml/min Estimated GFR > 60 (59 - ) Glucose 125 H (65-110) mg/dL Lactic Acid (0.7-2.0) mmol/L Calcium 8.7 (8.4-10.2) mg/dL Total Bilirubin 0.7 (0.2-1.3) mg/dL AST 28 (17-59) U/L ALT 34 (6-50) U/L Alkaline Phosphatase 107 (38-126) U/L C-Reactive Protein 1.8 H (<1.0) mg/dL Total Protein 6.5 (6.3-8.2) g/dL Albumin 3.5 (3.5-5.1) g/dL Urine Color Yellow (Yellow) Urine Appearance Clear (Clear) Urine pH 8.0 (5.0-9.0) Ur Specific [place] 1.016 (1.001-1.035) Urine Protein Trace (Negative) mg/dL Urine Glucose (UA) Negative (Negative) mg/dL Urine Ketones Negative (Negative) mg/dL Ur Blood (Man) Non-hemolyzed trace (Negative) Urine Nitrate Negative (Negative) Urine Bilirubin Negative (Negative) Urine Urobilinogen 0.2 (<2.0) mg/dL Leukocyte Esterase Rfl Negative (Negative) ABRIL/UL Urine RBC 11-20 H (0-2) /hpf Urine WBC 0-5 (0-3) /hpf Ur Squamous Epith Cells None seen (Few) /hpf Urine Bacteria None seen /hpf Urine Casts 0-2 Influenza A (RT-PCR) Negative (Negative) Influenza B (RT-PCR) Negative (Negative) RSV (RT-PCR) Negative (Negative) SARS-CoV-2 RNA (RT-PCR) Positive A (Negative) 04/28/25 Range/Units 17:48 WBC (4.5-10.0) K/mm3 RBC (4.6-6.20) M/mm3 Hgb (14.0-18.0) g/dL Hct (42.0-52.0) % MCV (80-100) fl MCH (26-34) pg MCHC (32-36) g/dl RDW (11.5-14.5) % Plt Count (150-375) k/mm3 MPV (7.4-10.4) fl Immature Gran % (Auto) (0-0.5) % Neut % (Auto) (45.5-73.1) % Lymph % (Auto) (18.3-44.2) % [place] % (Auto) (2.6-8.5) % Eos % (Auto) (0-4.4) % Baso % (Auto) (0.2-1.2) % Lymph # (Auto) (0.9-3.2) K/mm3 [place] # (Auto) (0.1-0.6) K/mm3 Eos # (Auto) (0-0.3) K/mm3 Baso # (Auto) (0.0-0.1) K/mm3 Abs Immat Gran (auto) (0.00-0.031) K/mm3 Absolute Neuts (auto) (1.3-6.7) K/mm3 Absolute Nucleated RBC (0.0-0.012) K/mm3 Nucleated RBC % (0.0-0.2) % PT (11.1-14.7) Seconds INR APTT (22.3-36.8) Seconds Sodium (137-145) mmol/L Potassium (3.4-5.0) mmol/L Chloride (98-107) mmol/L Carbon Dioxide (22-30) mmol/L Anion Gap (4-12) mmol/L BUN (9-20) mg/dL Creatinine (0.7-1.3) mg/dL Estim Creat Clear Calc ml/min Estimated GFR (59 - ) Glucose (65-110) mg/dL Lactic Acid 1.1 (0.7-2.0) mmol/L Calcium (8.4-10.2) mg/dL Total Bilirubin (0.2-1.3) mg/dL AST (17-59) U/L ALT (6-50) U/L Alkaline Phosphatase (38-126) U/L C-Reactive Protein (<1.0) mg/dL Total Protein (6.3-8.2) g/dL Albumin (3.5-5.1) g/dL Urine Color (Yellow) Urine Appearance (Clear) Urine pH (5.0-9.0) Ur Specific [place] (1.001-1.035) Urine Protein (Negative) mg/dL Urine Glucose (UA) (Negative) mg/dL Urine Ketones (Negative) mg/dL Ur Blood (Man) (Negative) Urine Nitrate (Negative) Urine Bilirubin (Negative) Urine Urobilinogen (<2.0) mg/dL Leukocyte Esterase Rfl (Negative) ABRIL/UL Urine RBC (0-2) /hpf Urine WBC (0-3) /hpf Ur Squamous Epith Cells (Few) /hpf Urine Bacteria /hpf Urine Casts Influenza A (RT-PCR) (Negative) Influenza B (RT-PCR) (Negative) RSV (RT-PCR) (Negative) SARS-CoV-2 RNA (RT-PCR) (Negative) Imaging Data Radiologist's impression: Impressions Head CT 04/28/25 16:49 IMPRESSION: 1. No acute intracranial hemorrhage. No mass effect. 2. Probable chronic ischemic white matter change. 3. Cerebral atrophy appropriate for the patient's age. If symptoms persist or worsen, consider a short-term follow-up study or additional imaging for further assessment. Chest CT 04/28/25 16:55 IMPRESSION: Bilateral probable bronchopneumonia superimposed on chronic lung disease. There are micronodules which are probably infectious, underlying neoplasm is not excluded. Follow-up after treatment is recommended to assess improvement Discharge Plan Discharge Clinical Impression: Bronchopneumonia, COVID AMS (altered mental status) Qualifiers: Altered mental status type: disorientation Qualified Code(s): R41.0 - Disorientation, unspecified Patient Disposition: Still a Patient Condition: Serious Patient Language: Tamazight Prescriptions: No Action albuterol sulfate [Ventolin HFA] 90 mcg/actuation HFA aerosol inhaler 2 puff inhalation Q4H PRN (Reason: shortness of breath or wheezing) aspirin 81 mg tablet,delayed release (DR/EC) 81 mg PO DAILY polyethylene glycol 3350 [Miralax] 17 gram Powder In Packet 17 g PO QAM Qty: 7 0RF amlodipine 5 mg tablet 5 mg PO DAILY Qty: 30 0RF losartan 100 mg Tablet 50 mg PO DAILY buspirone 5 mg Tablet 5 mg PO Q12HR Qty: 60 0RF docusate sodium 100 mg Capsule 100 mg PO BID Qty: 30 0RF fluticasone propionate [24 Hour Allergy Relief] 50 mcg/actuation spray,suspension 1 spray intranasal BID Rx Instructions: administer into each nostril benzonatate 200 mg capsule 200 mg PO .Q8HR PRN (Reason: cough) fluticasone furoate-vilanterol [Breo Ellipta] 100-25 mcg/dose blister with device 1 inh inhalation DAILY melatonin 3 mg Tablet 3 mg PO HS Qty: 30 0RF pantoprazole 40 mg Tablet,Delayed Release (Dr/Ec) 40 mg PO QAM Qty: 30 0RF propranolol 10 mg Tablet 10 mg PO BID 30 Days Qty: 60 0RF tamsulosin 0.4 mg Capsule 0.8 mg PO HS 30 Days Qty: 60 0RF sodium chloride 1,000 mg Tablet,Soluble 1,000 mg PO BID 7 Days Qty: 14 0RF methimazole 5 mg tablet 5 mg PO DAILY Qty: 30 1RF levofloxacin 750 mg tablet 750 mg PO DAILY Qty: 6 0RF doxycycline hyclate 100 mg tablet 100 mg PO BID 6 Days Qty: 12 0RF prednisone 10 mg tablet 10 mg PO DIRECTED Qty: 9 0RF Rx Instructions: see taper instructions 2 tabs daily x 2 days, then 1 tab daily x 3 days, then 5mg daily x 3 days then stop. (DME) nebulizer and compressor [All-In-One Nebulizer System] Device See Rx Instructions .Route Qty: 1 0RF Rx Instructions: As directed albuterol sulfate 5 mg/mL solution for nebulization 2.5 mg inhalation Q6H PRN (Reason: shortness of breath or wheezing) Qty: 100 0RF atorvastatin [Lipitor] 40 mg tablet 20 mg PO DAILY Qty: 90 3RF Follow-up/Referrals: Mely Gupta APRN [Primary Care Provider, Family Practice]
[2025-04-28 15:55] LABS: INR 1.1; Prothrombin Time 14.1 Seconds (11.1-14.7)
[2025-04-28 15:56] LABS: Partial Thromboplastin Time 25.7 Seconds (22.3-36.8)
[2025-04-28 15:58] LABS: Alanine Aminotransferase 34 U/L (6-50); Albumin Level 3.5 g/dL (3.5-5.1); Alkaline Phosphatase 107 U/L (38-126); Anion Gap 5 mmol/L (4-12); Aspartate Amino Transferase 28 U/L (17-59); Bilirubin,Total 0.7 mg/dL (0.2-1.3); Blood Urea Nitrogen 24 mg/dL (9-20); CRP 1.8 mg/dL (<1.0); Calcium 8.7 mg/dL (8.4-10.2); Carbon Dioxide 26 mmol/L (22-30); Chloride 95 mmol/L (98-107); Estimated CRCL calculation 50 ml/min; Estimated Glomerular Filt Rate > 60; Glucose 125 mg/dL (65-110); Potassium 4.8 mmol/L (3.4-5.0); Sodium 126 mmol/L (137-145); Total Protein 6.5 g/dL (6.3-8.2)
[2025-04-28 16:21] LABS: Influenza A QL RT-PCR Negative (Negative); Influenza B QL RT-PCR Negative (Negative); RSV RNA, RT-PCR Negative (Negative); SARS-CoV-2 RNA PCR Positive (Negative)
--- NOTE | 2025-04-28 16:22 | PC.NURSE ---
Pt to CT scan via stretcher at this time.
--- OUTSIDE RECORDS SUMMARY | 2025-04-28 17:52 | XMS_ITS | Clinical Summary ---
Author Organization [facility] Address [address] [place] [address] Phone Care Team Providers Care Restaurant Line Server Name Role Phone Brandon Sandoval MD Primary Care Provider [phone] Allergies No known active allergies Medications aspirin [...] Comments Blood Pressure 166/90 08/08/2021 10:50 AM NEUROLOGY SPECIALIST Pulse 86 08/08/2021 10:50 AM NEUROLOGY SPECIALIST Temperature 37.1 C (98.8 F) 08/08/2021 10:50 AM NEUROLOGY SPECIALIST Respiratory Rate 16 08/08/2021 10:50 AM NEUROLOGY SPECIALIST Oxygen Saturation 95% 08/08/2021 10:50 AM NEUROLOGY SPECIALIST Inhaled Oxygen Concentration - - Weight 69.4 kg (153 lb 1.6 oz) 08/08/2021 10:50 AM NEUROLOGY SPECIALIST Height 181.9 cm (5' 11.6) 08/08/2021 10:[address] Body Mass Index 21 08/08/2021 10:50 AM NEUROLOGY SPECIALIST Plan of Treatment Health Maintenance Due Date [...] Documents on File Type Date Recorded 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
--- OUTSIDE RECORDS SUMMARY | 2025-04-28 17:52 | XMS_ITS | Clinical Summary ---
Author Organization [facility] Address [address] [place] [address] Care Team Providers Care Philosophy Faculty Member Name Role Phone Miller Mcmanus MD Primary Care Provider [phone] Allergies No known active allergies Medications aspirin [...] fluticasone propionate (FLONASE) 50 mcg/actuation nasal spray [place] 1 spray twice a day by intranasal route. 5 Active guaiFENesin ER (MUCINEX) 600 mg 12 hr tablet Take 1 tablet every 12 hours by oral route for 5 days. Active ipratropium (ATROVENT) 21 mcg (0.03 %) nasal spray [place] 2 sprays every 8 hours by intranasal [...] (09/21/2020 11:17 AM CDT): Will fill out medical van driver form as I don't feel patient [...] ordered Assessment & Plan (07/28/2020 9:42 AM SWEAT BAND SEPARATOR): Likely related to uncontrolled allergies, though not [...] others. Assessment & Plan (05/06/2020 11:31 PM SWEAT BAND SEPARATOR): Unsure exact cause. Depression vs nutrition vs dehydration vs possible parkinsons?? Consult ACO He is recently less than 2 years ago. No family or friend support. Probable poor nutrition. Difficulty getting him to take meds as intended. Frequent falls 05/06/2020 Assessment & Plan (11/03/2020 12:12 PM CDT): Pt refuses cane or walker for ambulation. Assessment & Plan (05/06/2020 11:40 PM SWEAT BAND SEPARATOR): Refuses neuro or PT consult. I think he falls more from flexing his neck versus position changes, stumbling, or orthostasis. During the office visit that took at least 40 minutes, I spent over 50% of the time either counseling, educating, discussing plan of treatment, or answering questions today. Tremor, unspecified 05/06/2020 Assessment & Plan (05/06/2020 11:33 PM SWEAT BAND SEPARATOR): Refuses consult with neuro or anything that might cost him money. Trial Requip (ropinirole) 0.25mg tid. Consult ACO Illiteracy 05/06/2020 Weight loss 01/26/2020 Assessment & Plan (07/28/2020 7:23 PM SWEAT BAND SEPARATOR): Stable with Mirtazapine. Will increase the Mirtazapine to 30mg today. Assessment & Plan (05/06/2020 11:37 PM SWEAT BAND SEPARATOR): Possible improvement with Mirtazapine (if he is [...] 8:55 AM CDT): Will refill Cardura to [facility]. Hopefully this will allow patient to easy to access his medications. Will also order home health for social work and nursing services. With his blood pressure a elevated he likely needs a nurse to check this and assist him with medications. He is not cognitively aware enough to do this himself. Assessment & Plan (07/28/2020 7:26 PM SWEAT BAND SEPARATOR): Will increase the doxazosin from 1 mg [...] readings. Assessment & Plan (07/28/2019 11:16 PM SWEAT BAND SEPARATOR): New diagnosis. Start doxazosin (Cardura) for combined benefit of HTN and BPH. Call back with update in 2-3 weeks and blood pressure readings if possible. Chronic rhinitis 07/28/2019 Assessment & Plan (07/28/2019 11:20 PM SWEAT BAND SEPARATOR): Start Flonase (fluticasone). Demonstrated use. Hearing difficulty of both ears 12/18/2018 Assessment & Plan (07/28/2020 7:45 PM SWEAT BAND SEPARATOR): Tried to clean out ears today. Assessment & Plan (01/26/2020 11:12 AM CDT): Did not go to audiology due to cost. Assessment & Plan (12/18/2018 9:24 PM CDT): Audiology consult. 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 LDL is controlled well. Prediabetes 06/18/2017 Assessment & Plan (07/28/2020 7:21 PM SWEAT BAND SEPARATOR): Will check new labs and make adjustments if needed. Assessment & Plan (01/26/2020 11:07 AM CDT): Will recheck fasting glucose today. Assessment & Plan (07/28/2019 11:16 PM SWEAT BAND SEPARATOR): Get new labs Assessment & Plan (12/18/2018 9:23 PM CDT): Lower carb diet recommended. Assessment & Plan (06/18/2017 1:26 PM SWEAT BAND SEPARATOR): Please cut down on sweets. Chronic idiopathic constipation 12/13/2016 Assessment & Plan (07/28/2020 7:21 PM SWEAT BAND SEPARATOR): Chronic & stable on meds. Continue current [...] Lipitor. Assessment & Plan (07/28/2020 7:43 PM SWEAT BAND SEPARATOR): Chronic & stable on meds. Continue current treatment. Assessment & Plan (01/26/2020 11:06 AM CDT): Stop rosuvastatin and start atorvastatin 20mg due to cost. Check labs today. Assessment & Plan (07/28/2019 11:20 PM SWEAT BAND SEPARATOR): Get updated labs soon. Assessment & Plan (12/18/2018 9:23 PM CDT): Chronic & stable on meds. Continue current treatment. Assessment & Plan (06/18/2018 2:20 PM SWEAT BAND SEPARATOR): Chronic & stable on meds. Continue current treatment. Assessment & Plan (03/29/2018 1:48 PM CDT): LDL was 69 on 12/10/2017. Continue Mevacor treatment Assessment & Plan (12/17/2017 9:41 PM CDT): Chronic & stable on meds. Continue current treatment. Assessment & Plan (06/18/2017 1:26 PM SWEAT BAND SEPARATOR): Chronic & stable on meds. Continue current [...] pharmacy Assessment & Plan (07/28/2020 7:38 PM SWEAT BAND SEPARATOR): Increase the Mirtazapine to 30mg daily and stop the Amitriptyline 10 mg daily, especially since he has constipation. Assessment & Plan (05/06/2020 11:37 PM SWEAT BAND SEPARATOR): Patient symptomatic and not sure if he [...] treatment. Assessment & Plan (06/18/2018 2:20 PM SWEAT BAND SEPARATOR): Chronic & stable on meds. Continue current treatment. Assessment & Plan (06/18/2017 1:26 PM SWEAT BAND SEPARATOR): Chronic & stable on meds. Continue current [...] 02/15/2015 Assessment & Plan (07/28/2020 7:42 PM SWEAT BAND SEPARATOR): Stable with out prescription medication. He feels [...] treatment. Assessment & Plan (06/18/2018 2:20 PM SWEAT BAND SEPARATOR): Stable without regular use of inhalers. Assessment [...] medication(s) Assessment & Plan (07/28/2020 7:41 PM SWEAT BAND SEPARATOR): Increase the doxazosin from 1 mg to 2 mg. Assessment & Plan (01/26/2020 11:09 AM CDT): Patient only took the doxazosin a couple times. Stop completely due to not taking it regularly and some lightheadedness when standing. Assessment & Plan (07/28/2019 11:16 PM SWEAT BAND SEPARATOR): Start doxazosin (Cardura). Patient opted out of getting PSA testing at this time. Resolved Problems Problem Noted Date Diagnosed Date Resolved Date alf (current) use of anticoagulants 11/13/2023 07/15/2024 Late onset Alzheimer's disea se without behavioral disturbance 09/20/2020 09/20/2020 Bilateral impacted cerumen 07/28/2020 0 09/17/2020 Assessment & Plan (07/28/2020 7:22 PM SWEAT BAND SEPARATOR): Ear irrigation today. Encounter for Medicare annual [...] 12/18/19 Assessment & Plan (06/18/2017 1:20 PM SWEAT BAND SEPARATOR): These look like a type of squamous [...] draws. Assessment & Plan (06/18/2018 2:20 PM SWEAT BAND SEPARATOR): Chronic & stable on meds. Continue current [...] INR Assessment & Plan (06/18/2017 1:27 PM SWEAT BAND SEPARATOR): Chronic & stable on meds. Continue current [...] Encounters Date Type Department Care Team Description 04/22/2025 Orders Only [facility] Cardiology [address] [place] [address] Tc Wilkins MD from Last 3 Months Immunizations Immunization Administration [...] slept in a fdc (including now)? 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 SWEAT BAND SEPARATOR Gender Identity Not on file Sexual Orientation Not on file Obstetrics History Last Filed Vital Signs Vital Sign Reading Time Taken Comments Blood Pressure 176/72 01/09/2025 9:41 AM CDT Pulse 76 01/09/2025 9:41 AM CDT Temperature 36.9 C (98.4 F) 07/28/2020 8:55 AM SWEAT BAND SEPARATOR Respiratory Rate 18 11/03/2020 9:16 AM CDT [...] Procedure Name Priority Date/Time Associated Diagnosis Comments CARDIOLOGY DOCUMENT SCAN Routine 025 11:04 AM CDT CARDIOLOGY DOCUMENT SCAN Routine 025 10:48 AM CDT from Last 3 Months Results * Cardiology Document Scan (04/18/2025 11:04 AM CDT) Anatomical Region Laterality Modality Other us Tc Wilkins MD [facility] CARDIAC SERVICES PROCEDURES F inal Result * Cardiology Document Scan (04/18/2025 10:48 AM CDT) Anatomical Region Laterality Modality Other us Tc Wilkins MD CV CARDIAC SERVICES PROCEDURES F inal Result from Last 3 Months Insurance MEDICARE MEDICARE MEDICARE HEALTHCARE HEALTHCARE Advance Directives For more information, please contact: [phone] Documents on File Type Date Recorded Patient Topology Teacher Expl anation ADVANCE DIRECTIVE 09/16/2021 9:00 AM Power of Operative Supervisor-Medical ADVANCE DIRECTIVE 06/23/2021 4:03 PM Annabel r of Operative Supervisor-Medical ADVANCE DIRECTIVE 03/05/2019 10:13 AM POWER OF ARTISTS' MODEL-MEDICAL ADVANCE DIRECTIVE 03/04/2019 2:22 PM POWER OF ARTISTS' MODEL-MEDICAL Care Teams Philosophy Faculty Member Relationship Specialty Start Date End Date Miller Mcmanus MD [address] [address] PCP - General Family Medicine 10/20/22
--- OUTSIDE RECORDS SUMMARY | 2025-04-28 17:53 | XMS_ITS | Data Portability ---
Author Organization [employer] [facility], Main Office Address [id number] [place] [address] Care Team Providers Care Set O Type Operator Name Role Phone P [facility] OTHER MELY MELENDEZ Primary Care Provider Assessment Encounter Date Assessment Date Assessment LastModified [...] 13:46:51 02/11/2025 02/11/2025 Pt will d/c to [facility] with [facility] on 02/12. Will need to recheck [...] 2024 025 [facility], [address] [facility], [place], [address], 16:44:59 Patient TargetsNo targets recorded. Patient Instructions Encounter Date Encounter Id Patient Instructions Last Modified By Organization Details Last Modified Time 01/29/2025 [id number] I spent 37 minutes providing care to the patient today. More than 50% of that time was spent in discussing the expected course of the disease, discussing prognosis, coordinating care and counseling of the patient/family. [email or web address] Not available 01/30/2025 10:01:20 02/02/2025 [id number] I spent 34 minutes providing care to the patient today. More than 50% of that time was spent in discussing the expected course of the disease, discussing prognosis, coordinating care and counseling of the patient/family. Not available 02/02/2025 16:35:43 02/04/2025 [id number] I spent 36 minutes providing care to the patient today. More than 50% of that time was spent in discussing the expected course of the disease, discussing prognosis, coordinating care and counseling of the patient/family. Not available 02/04/2025 15:03:42 02/09/2025 [id number] I spent 36 minutes providing care to the patient today. More than 50% of that time was spent in discussing the expected course of the disease, discussing prognosis, coordinating care and counseling of the patient/family. Not available 02/09/2025 15:24:12 02/11/2025 [id number] I spent 37 minutes providing care to [...] No observ ation record ed. [employer] [facility] [address], [place], [address], 01/29/2025 10:32:10 Result Notes None recorded. Procedures Surgical History Date Name Laterality Status Provider Name and Address Organization Details Recorded Time cholecystectomy completed Marianne Simmons [facility] 12/25/2024 12:33:19 insertion [place] [address] [facility], [place], [address], [facility] 12/25/2024 12:37:10 Imaging Results None recorded. Procedure [...] propionate 50 mcg/actuati on nasal spray,suspe nsion [place] 1 spray twice a day by intranasa l route. active Not Available Not Available No t Available ipratropium bromide 21 mcg (0.03 %) nasal spray [place] 2 sprays every 8 hours by intranasa [...] /min 97 % 97 % 20.4 kg/m2 99736.2 9 g 119/78 mm[Hg] [place] [address] [place], [address], [place] [facility] 5 13:24:17 Date Recorded Body height Heart rate Body temperature Respiratory rate Oxygen saturation Oxygen saturation in Arterial blood by Pulse oximetry Body mass index (BMI) Body weight Systolic And Diastolic Provider Name and Address Organization Details Last Updated DateTime 5 182.88 cm 83 /min 98.3 [degF] 18 /min 96 % 96 % 20.6 kg/m2 41454.7 6 g 154/69 mm[Hg] [place] [address] [place], [address], [place] [facility] 5 14:50:25 Date Recorded Body height Heart rate Body temperature Respiratory rate Oxygen saturation Oxygen saturation in Arterial blood by Pulse oximetry Body mass index (BMI) Body weight Systolic And Diastolic Provider Name and Address Organization Details Last Updated DateTime 5 182.88 cm 80 /min 98.2 [degF] 18 /min 95 % 95 % 20.9 kg/m2 40441.5 1 g 154/78 mm[Hg] [place] [address] [place], [address], [place] - [facility] 5 14:54:27 Date Recorded Body height Heart rate Body temperature Respiratory rate Oxygen saturation Oxygen saturation in Arterial blood by Pulse oximetry Body mass index (BMI) Body weight Systolic And Diastolic Provider Name and Address Organization Details Last Updated DateTime 5 182.88 cm 71 /min 98 [degF] 18 /min 96 % 96 % 20.9 kg/m2 44809.9 4 g 156/79 mm[Hg] [place] [address] [place], [address], [place] [facility] 5 13:44:00 Date Recorded Body height Heart rate Body temperature Respiratory rate Oxygen saturation Oxygen saturation in Arterial blood by Pulse oximetry Body mass index (BMI) Body weight Systolic And Diastolic Provider Name and Address Organization Details Last Updated DateTime 5 182.88 cm 70 /min 97.5 [degF] 18 /min 93 % 93 % 21 kg/m2 77422.5 4 g 137/64 mm[Hg] Veronica Aguero, PILE OPERATOR [address] [facility], [place], [address], [place] - [facility] 16:33:55 Social History Question Answer Notes LastModified by Organizat ion Details LastModified Time Tobacco Smoking Status Former Smoker Veronica Aguero, DYLAN [address] [facility], [place], [address], [facility] - [facility] 12/25/2024 12:35:46 What [...] Y Stroke (CVA) Y Atrial Fibrillation Y Psychiatric -- Depression Y COPD Y Back Pain Y Peripheral Vascular Disease (PVD) Y Benign Prostatic Hyperplasia (BPH) Y Allergic Rhinitis Y Hyperlipidemia Y Dementia Y Orthostatic Hypotension Y Loss of Hearing / Deafness Y Hypertension Y Past Encounters Encounter ID Performer Location Encounter Start Date Encounter Closed Date Diagnosis/Indication Diagnosis SNOMED-CT Code Diagnosis ICD10 Code Diagnosis IMO Codes Diagnosis Note [id number] Sosa Richardson DO [place] [address] [facility] [place] [address] 12/25/2024 10:15:58 12/28/2024 20:46:38 Cerebrovascular accident 761821095 I63.9 [id number] Waiting on further records from [facility]. CT in ER showed decreased attenuatio n within the right posterior lobe of the cerebellum ... possibly representi ng interval cerebral infarction . Carotid dopplers in September 2024 were unconcerni ng.Continu e baby ASA, Plavix (new), Atorvastat in, and good BP control.F/ U instructio ns unclear. F/U with Dr. Don Albert as OP.Continu e therapies. Acute urin dana tract infection 197385413 N39.0 [id number] D/Donell from hospital on Keflex x 4 days (12/28).Nii holcomb on further records from [facility], especially urine culture. Dizziness 985152637 R42 37867 Chronic, leading to falls.Neur ology suspected sec to CVA.Check orthostati cs daily x 7 days.Monit or continued need for Doxazosin, could be contributi ng.Continu e therapies. Fall precaution s in place. Benign hypertension 1072 5009 I10 992244 Elevated while inpatient, Losartan dose was increased [...] was 75 mg daily. Mixed hyperlipidemia 267 739035 E78.2 50520 Presumed stable. Continue Atorvastat in. Chronic at rial fibrillation 139413879 I48.20 057502 Stable. Not on rate-contr ollers.Per hospital, ot [...] per minute. Chronic ob structive pulmonary disease 36880431 J44.9 029131690 Not on routine inhalers, continue PRN Ventolin.R espiratory status is stable. Pt denies any recent flares or concerns. Peripheral arterial disease 487926348 I73.9 493245 s/p angioplast y with stent.Cont inue baby ASA, Plavix (new), Atorvastat in, and good BP control. Benign pro static hyperplasia 838172425 N40.0 69851864 Stable. Voiding without concerns, per pt. Continue Doxazosin for now. Monitoring for need as could be contributi ng to dizziness. Lumbosacra l spondylosis with radiculopathy 794387007 M47.27 65489611 Stable without concerns today. Continue PRN APAP per standing orders. Dementia 85875636 F03.90 1122319313 Appears mild, mood is pleasant, not on medication s at present beyond PRN Buspirone for anxiety.ST to follow. Generalize d anxiety disorder 84538271 F41.1 344122 SEE ABOVE... Recurrent major depression 92988847 F33.9 08698287 SEE ABOVE... Seasonal allergy 7007265 04 J30.2 22039 Stable. Continue Flonase & PRN Atrovent nasal spray. Not for resuscitation 30 8987548 Z66 340253 Pt is a DNR. Confirmed today. Physical deconditioning 0087297883 9102 R53.81 855810 Related to age, recent inpatient stay, and multiple comorbidit ies. Continue PT/OT/ST and monitor progress. Goal is for pt to return home. Hyponatremia 94938661 E8 7.1 96995 Unclear if evaluated while inpatient. Continue to trend level. Constipation 80836548 K5 9.00 403750805 Stable. Continue Miralax. Additional cathartics available per standing orders. [id number] Sosa Richardson, DO PAC [address] [address] 12/28/2024 19:18:00 01/06/2025 12:50:42 Acute urinary tract infection 850449624 N39.0 411693 D/Donell from hospital on Keflex x 4 dayscultur e done 12/21 grew >100,000 staph coag negative speciesthe patient does not currently have urinary symptoms - will monitor clinically Dizziness 134410242 R42 23998 Chronic, leading to falls.Neur ology suspected sec to CVA.orthos tatics negative thus farMonitor continued need for Doxazosin, could be contributi ng.Continu e therapies. Fall precaution s in place. Benign hypertension 1072 5009 I10 434419 Elevated while inpatient, Losartan dose was increased [...] 75 mg daily. Chronic at rial fibrillation 657689629 I48.20 789552 Stable. Not on rate-contr ollers or oral [...] 114 beats per minute. Mixed hyperlipidemia 267 099336 E78.2 55692 Presumed stable. Continue Atorvastat in Hyponatremia 46181921 E8 7.1 08706 Unclear if evaluated while inpatient. Continue to trend level.TSH was low with normal free T4 per labs 12/21 - will need to recheck as an outpatient Peripheral arterial disease 225410788 I73.9 888353 s/p angioplast y with stent.Cont inue baby ASA, Plavix (new), Atorvastat in, and good BP control. Chronic ob structive pulmonary disease 56807482 J44.9 388169642 Not on routine inhalers, continue PRN Ventolin.R espiratory status is stable. Pt denies any recent flares or concerns. Benign pro static hyperplasia 947100166 N40.0 65751180 Stable. Voiding without concerns, per pt. Continue Doxazosin for now. Monitoring for need as could be contributi ng to dizziness. Lumbosacra l spondylosis with radiculopathy 522811969 M47.27 59025120 Stable without concerns today. Continue PRN APAP per standing orders. Dementia 30881157 F03.90 5385601917 Appears mild, mood is pleasant, not on medication s at present beyond PRN Buspirone for anxiety.ST to follow. Generalize d anxiety disorder 52833251 F41.1 259349 SEE ABOVE... Recurrent major depression 50730232 F33.9 13200218 SEE ABOVE... Constipation 47812157 K5 9.00 171294258 Stable. Continue Miralax. Additional cathartics available per standing orders. Seasonal allergy 7016579 04 J30.2 09050 Stable. Continue Flonase & PRN Atrovent nasal spray. Physical deconditioning 7756888893 9102 R53.81 393872 Related to age, recent inpatient stay, and multiple comorbidit ies.Contin ue PT/OT/ST and monitor progress. Discharge plan is home with family support versus [facility] Stenosis o f right vertebral artery 384914698 I65.01 28390089 stroke w/u was done during his hospitaliz [...] stentingCo ntinue therapies for generalize d weakness [id number] Sosa Richardson, [address] [place] [address] 12/29/2024 13:04:01 01/06/2025 12:52:03 Stenosis of right vertebral artery 210745828 I65.01 77034784 CVA w/u was done during his hospitaliz [...] d weakness. Acute urin dana tract infection 537303370 N39.0 955379 Culture done 12/21 grew >100,000 staph coag negative species.D/ Donell from hospital on Keflex x 4 days, completed 12/28.[place] v[place]es does not currently have urinary symptoms. Monitor clinically . Dizziness 932606544 R42 01825 Chronic, leading to falls.Neur ology suspected sec to CVA.Orthos tatics on 12/28 normal, positive on 12/29 (SBP from 142 to 114).Monit or continued need for Doxazosin, could be contributi ng.Continu e therapies. Fall precaution s in place. Benign hypertension 1072 5009 I10 550442 Elevated while inpatient, Losartan dose was increased [...] as clinically indicated. Chronic at rial fibrillation 578669346 I48.20 027540 Stable. Not on rate-contr ollers or oral [...] 114 beats per minute. Mixed hyperlipidemia 267 688112 E78.2 57139 Presumed stable. Continue Atorvastat in Hyponatremia 94519366 E8 7.1 28136 Na level trended 129-133 while inpatient. Treating supportive ly for now.TSH was low with normal free T4 per labs on 12/21. Will need to recheck thyroid levels as an outpatient .Continue to trend Na levels. Peripheral arterial disease 270074704 I73.9 455709 s/p angioplast y with stent.Cont inue baby ASA, Plavix (new), Atorvastat in, and good BP control. Chronic ob structive pulmonary disease 56554910 J44.9 402001446 Not on routine inhalers, continue PRN Ventolin.R espiratory status is stable. Pt denies any recent flares or concerns. Benign pro static hyperplasia 140575697 N40.0 25911408 Stable. Voiding without concerns, per pt. Continue Doxazosin for now. Monitoring for need as could be contributi ng to dizziness. Lumbosacra l spondylosis with radiculopathy 845102072 M47.27 70712174 Stable without concerns today. Continue PRN APAP per standing orders. Dementia 23462785 F03.90 2270729405 Appears mild, mood is pleasant, not on medication s at present beyond PRN Buspirone for anxiety.ST to follow.12/01 12/24 = BIMS score of 5/15. SLUMS administer ed with score of 30. Generalize d anxiety disorder 11281046 F41.1 205343 SEE ABOVE... Recurrent major depression 91743723 F33.9 76508673 SEE ABOVE... Constipation 30057211 K5 9.00 907134714 Stable. Continue Miralax. Additional cathartics available per standing orders. Seasonal allergy 7388908 04 J30.2 75549 Stable. Continue Flonase & PRN Atrovent nasal spray. Physical deconditioning 7511000252 9102 R53.81 185242 Related to age, recent inpatient stay, and multiple comorbidit ies.Contin ue PT/OT/ST and monitor progress. Discharge plan is home with family support versus [facility] [id number] Sosa Richardson, DO [address] [address] 01/01/2025 09:03:06 01/11/2025 10:57:10 Stenosis of right vertebral artery 750437521 I65.01 23868708 CVA w/u was done during his hospitaliz [...] d weakness. Acute urin dana tract infection 458441257 N39.0 518794 Culture done 12/21 grew >100,000 staph coag negative species.D/ Donell from hospital on Keflex x 4 days, completed 12/28.Patie nt does not currently have urinary symptoms. Monitor clinically . Dizziness 767385228 R42 12890 Chronic, leading to falls.Neur ology suspected sec to CVA.Orthos tatics have been positive about 1/2 of the time.D/C Doxazosin. Monitor voiding and orthostasi s.Continue therapies. Fall precaution s in place. Benign hypertension 1072 5009 I10 387398 Elevated while inpatient, Losartan dose was increased [...] as clinically indicated. Chronic at rial fibrillation 265591879 I48.20 713350 Stable. Not on rate-contr ollers or oral [...] 114 beats per minute. Mixed hyperlipidemia 267 350351 E78.2 48683 Presumed stable. Continue Atorvastat in Hyponatremia 90667804 E8 7.1 46342 Na level trended 129-133 while inpatient. Treating supportive ly for now.TSH was low with normal free T4 per labs on 12/21. Will need to recheck thyroid levels as an outpatient .Continue to trend Na levels. Peripheral arterial disease 826450753 I73.9 324919 s/p angioplast y with stent.Cont inue baby ASA, Plavix (new), Atorvastat in, and good BP control. Chronic ob structive pulmonary disease 09242815 J44.9 039458085 Not on routine inhalers, continue PRN Ventolin.R espiratory status is stable. Pt denies any recent flares or concerns. Benign pro static hyperplasia 300321303 N40.0 32374843 Stable. Voiding without concerns, per pt.Stoppin g Doxazosin as above.Remedios tor closely. Lumbosacra l spondylosis with radiculopathy 957922937 M47.27 27166604 Stable without concerns today. Continue PRN APAP per standing orders. Dementia 59234583 F03.90 5148868170 Appears mild, mood is pleasant, not on medication s at present beyond PRN Buspirone for anxiety.ST to follow.12/01 12/24 = BIMS score of 5/15. SLUMS administer ed with score of 3/30. Generalize d anxiety disorder 63679569 F41.1 003107 SEE ABOVE... Recurrent major depression 52563554 F33.9 19647907 SEE ABOVE... Constipation 16685849 K5 9.00 676723270 Stable. Continue Miralax. Additional cathartics available per standing orders. Seasonal allergy 5765512 04 J30.2 45261 Stable. Continue Flonase & PRN Atrovent nasal spray. Physical deconditioning 8851660800 9102 R53.81 717412 Related to age, recent inpatient stay, and multiple comorbidit ies.Contin ue PT/OT/ST and monitor progress. Discharge plan is home with family support versus [facility] [id number] Sosa Richardson DO [facility] [address] [place] [address] 01/06/2025 10:31:20 01/11/2025 10:57:39 Stenosis of right vertebral artery 369838273 I65.01 98800050 CVA w/u was done during his hospitaliz [...] d weakness. Acute urin dana tract infection 704994627 N39.0 014481 Culture done 12/21 grew >100,000 staph coag negative species.D/ Donell from hospital on Keflex x 4 days, completed 12/28.Patie nt does not currently have urinary symptoms. Monitor clinically . Dizziness 178654180 R42 77610 Chronic, leading to falls.Neur ology suspected sec to CVA.Orthos tatics were positive about 1/2 of the time.D/Donell Doxazosin. Monitor voiding and orthostasi s.Continue therapies. Fall precaution s in place. Benign hypertension 1072 5009 I10 982493 Elevated while inpatient, Losartan dose was increased [...] as clinically indicated. Chronic at rial fibrillation 567431735 I48.20 433535 Stable. Not on rate-contr ollers or oral [...] 114 beats per minute. Mixed hyperlipidemia 267 210706 E78.2 14887 Presumed stable. Continue Atorvastat in Hyponatremia 29774402 E8 7.1 79796 Na level trended 129-133 while inpatient. Treating supportive ly for now.TSH was low with normal free T4 per labs on 12/21. Will need to recheck thyroid levels as an outpatient .Continue to trend Na levels. Peripheral arterial disease 069599779 I73.9 738440 s/p angioplast y with stent.Cont inue baby ASA, Plavix (new), Atorvastat in, and good BP control. Chronic ob structive pulmonary disease 94953476 J44.9 778812318 Not on routine inhalers, continue PRN Ventolin.R espiratory status is stable. Pt denies any recent flares or concerns. Benign pro static hyperplasia 224959960 N40.0 98964425 Stable. Voiding without concerns, per pt.Stopped Doxazosin as above.Remedios tor closely. Lumbosacra l spondylosis with radiculopathy 696329171 M47.27 05092327 Stable without concerns today. Continue PRN APAP per standing orders. Dementia 52518436 F03.90 4271069217 Appears mild, mood is pleasant, not on medication s at present beyond PRN Buspirone for anxiety.ST to follow.12/01 12/24 = BIMS score of 5/15. SLUMS administer ed with score of 3/30. Generalize d anxiety disorder 25593608 F41.1 438892 SEE ABOVE... Recurrent major depression 60686433 F33.9 34009924 SEE ABOVE... Constipation 97920018 K5 9.00 082950536 Stable. Continue Miralax. Additional cathartics available per standing orders. Seasonal allergy 1112879 04 J30.2 27592 Stable. Continue Flonase & PRN Atrovent nasal spray. Physical deconditioning 1765337021 9102 R53.81 086751 Related to age, recent inpatient stay, and multiple comorbidit ies.Contin ue PT/OT/ST and monitor progress. Discharge plan is home with family support versus [facility] [id number] Sosa Richardson DO [place] [address] [place] [address] 01/12/2025 10:39:34 01/19/2025 11:42:52 Stenosis of right vertebral artery 982124332 I65.01 57984851 CVA w/u was done during his hospitaliz [...] d weakness. Acute urin dana tract infection 245241593 N39.0 250598 Culture done 12/21 grew >100,000 staph coag negative species.D/ Donell from hospital on Keflex x 4 days, completed 12/28.Laylae nt does not currently have urinary symptoms. Monitor clinically . Dizziness 861247370 R42 24444 Chronic, leading to falls.Neur ology suspected sec to CVA.Orthos tatics were positive about 1/2 of the time.D/Donell Doxazosin. Monitor voiding and orthostasi s.Continue therapies. Fall precaution s in place. Benign hypertension 1072 5009 I10 457217 Elevated while inpatient, Losartan dose was increased [...] as clinically indicated. Chronic at rial fibrillation 852146895 I48.20 090771 Stable. Not on rate-contr ollers or oral [...] 114 beats per minute. Mixed hyperlipidemia 267 437697 E78.2 24338 Presumed stable. Continue Atorvastat in Hyponatremia 71400749 E8 7.1 36231 Na level trended 129-133 while inpatient. Treating supportive ly for now.TSH was low with normal free T4 per labs on 12/21. Will need to recheck thyroid levels as an outpatient .Continue to trend Na levels. Peripheral arterial disease 581033377 I73.9 383932 s/p angioplast y with stent.Cont inue baby ASA, Plavix (new), Atorvastat in, and good BP control. Chronic ob structive pulmonary disease 70384968 J44.9 652504253 Not on routine inhalers, continue PRN Ventolin.R espiratory status is stable. Pt denies any recent flares or concerns. Benign pro static hyperplasia 331299768 N40.0 77676864 Stable. Voiding without concerns, per pt.Stopped Doxazosin as above.Remedios tor closely. Lumbosacra l spondylosis with radiculopathy 128746310 M47.27 66483329 Stable without concerns today. Continue PRN APAP per standing orders. Dementia 55137745 F03.90 7485299198 Appears mild, mood is pleasant, not on medication s at present beyond PRN Buspirone for anxiety.ST to follow.12/01 12/24 = BIMS score of 5/15. SLUMS administer ed with score of 330. Recurrent major depression 44153585 F33.9 15198384 SEE ABOVE... Generalize d anxiety disorder 74607635 F41.1 289535 SEE ABOVE... Constipation 80284357 K5 9.00 512307504 Stable. Continue Miralax. Additional cathartics available per standing orders. Seasonal allergy 7115717 04 J30.2 52024 Stable. Continue Flonase & PRN Atrovent nasal spray. Physical deconditioning 2659604692 9102 R53.81 199816 Related to age, recent inpatient stay, and multiple comorbidit ies.Contin ue PT/OT/ST and monitor progress. Discharge plan is home with family support versus [facility] [id number] Sosa Richardson DO [address] [address] 01/14/2025 13:05:57 01/27/2025 23:08:14 Stenosis of right vertebral artery 937242694 I65.01 42655874 CVA w/u was done during his hospitaliz [...] e therapies for generalize d weakness via [facility]. Dizziness 197224610 R42 55139 Chronic, leading to falls.Neur ology suspected sec to CVA.Orthos tatics were positive about 1/2 of the time.D/Donell Doxazosin. Monitor voiding and orthostasi s.Continue therapies via [facility].Fall precaution s in place. Benign hypertension 1072 5009 I10 559080 Elevated while inpatient, Losartan dose was increased [...] as clinically indicated. Chronic at rial fibrillation 468772298 I48.20 420344 Stable. Not on rate-contr ollers or oral [...] 114 beats per minute. Mixed hyperlipidemia 267 542934 E78.2 68360 Presumed stable. Continue Atorvastat in Hyponatremia 25511169 E8 7.1 51406 Na level trended 129-133 while inpatient. Treating supportive ly for now.TSH was low with normal free T4 per labs on 12/21. Will need to recheck thyroid levels as an outpatient .Continue to trend Na levels. Peripheral arterial disease 882116514 I73.9 170292 s/p angioplast y with stent.Cont inue baby ASA, Atorvastat in, and good BP control. Chronic ob structive pulmonary disease 63613920 J44.9 600706770 Not on routine inhalers, continue PRN Ventolin.R espiratory status is stable. Pt denies any recent flares or concerns. Benign pro static hyperplasia 220595992 N40.0 52332960 Stable. Voiding without concerns, per pt.Stopped Doxazosin as above.Remedios tor closely. Constipation 48205963 K5 9.00 570680968 Stable. Continue Miralax. Additional cathartics available per standing orders. Dementia 49062903 F03.90 8250976166 Appears mild, mood is pleasant, not on medication s at present beyond PRN Buspirone for anxiety.ST to follow.12/01 12/24 = BIMS score of 5/15. SLUMS administer ed with score of 3/30. Recurrent major depression 42922836 F33.9 [id number] SEE ABOVE... Generalize d anxiety disorder 34497557 F41.1 684925 SEE ABOVE... Lumbosacra l spondylosis with radiculopathy 770581556 M47.27 92319144 Stable without concerns today. Continue PRN APAP per standing orders. Seasonal allergy 8933036 04 J30.2 69613 Stable. Continue Flonase & PRN Atrovent nasal spray. Acute urin dana tract infection 487357963 N39.0 973253 Culture done 12/21 grew >100,000 staph coag negative species.D/ Donell from hospital on Keflex x 4 days, completed 12/28.Teto valles does not currently have urinary symptoms. Monitor clinically . [id number] Sosa Richardson, [address] [address] 01/26/2025 10:37:26 01/27/2025 23:09:57 Stenosis of right vertebral artery 967954022 I65.01 55295080 CVA w/u was done during 12/18 to [...] as directed, needs to be clarified. Dizziness 100155486 R42 33631 Chronic, leading to falls. Neurology suspected sec to vertebral artery stenosis.O rthostatic s were positive about 1/2 of the time during his last rehab stay here. D/Donell Doxazosin at that time.Kenny nue to monitor orthostati cs, will check a set of orthostati c vitals after medication s confirmed. Continue therapies. Fall precaution s in place. Benign hypertension 1072 5009 I10 082345 Unfortunat amandeep both intermitte ntly elevated and orthostati c, making control difficult. Required addition of Amlodipine during November hospitaliz ation.Prev iously on Losartan & Amlodipine -- nursing to clarify d/c medication s.Stopped Doxazosin as above.Cont inue to trend blood pressures, monitor lytes and renal function, and adjust meds as clinically indicated. Chronic at rial fibrillation 262545118 I48.20 099021 Cards thought dizziness could be sec to [...] needs to be clarified. Mixed hyperlipidemia 267 168662 E78.2 58278 Presumed stable. Previously on Atorvastat in -- nursing to clarify d/c medication s. Hyponatremia 96067400 E8 7.1 17259 Na level trended 129-133 historical ly. Treating supportive ly for now.TSH was low with normal free T4 per labs on 12/21/24. Will need to recheck thyroid levels in mid-December.C ontinue to trend Na levels. Peripheral arterial disease 539191371 I73.9 531300 s/p angioplast y with stent.Cont inue baby ASA and good BP control.Pr eviously on Atorvastat in -- nursing to clarify d/c medication s. Chronic ob structive pulmonary disease 37191288 J44.9 624885187 Not on routine inhalers. Was previously on PRN Ventolin -- nursing to clarify d/c medication s.Respirat ory status is stable. Pt denies any recent flares or concerns. Benign pro static hyperplasia 106054398 N40.0 47132253 Stable. Voiding without concerns, per pt. UA while recently inpatient did not reflex to culture.St opped Doxazosin as above.Remedios tor closely. Constipation 84424718 K5 9.00 934944512 Stable. Previously on daily Miralax -- nursing to clarify d/c medication s.Continue routine Docusate.A dditional cathartics available per standing orders. Dementia 00732894 F03.90 [id number] Appears mild, mood is pleasant. Previously on PRN Buspirone BID, was scheduled BID during last hospital stay.ST to follow.12/01 12/24 = BIMS score of 5/15. SLUMS score of 3/30. Recurrent major depression 19001561 F33.9 66828723 SEE ABOVE... Generalize d anxiety disorder 65246100 F41.1 358162 SEE ABOVE... Lumbosacra l spondylosis with radiculopathy 437877639 M47.27 38004266 Stable without recent concerns. Continue PRN APAP per standing orders. Seasonal allergy 5959566 04 J30.2 72314 Stable. Continue Flonase. No longer on PRN Atrovent nasal spray -- nursing to clarify d/c medication s. History of urinary tract infection 6014833081 107 Z87.578 6501202 Culture done 12/21/24 grew >100,000 staph coag negative species. D/Donell from hospital on Keflex x 4 days, completed 12/28/24. During most recent inpatient stay, UA was normal, did not meet reflex criteria.P zonia does not currently have urinary symptoms. Monitor clinically . Not for resuscitation 30 5698860 Z66 342196 Pt is a DNR with comfort-fo cused measures. Confirmed today.Srinivasan is daughter Roseanne. [id number] Sosa Richardson, DO [address] [address] [place] [address] 01/27/2025 18:49:50 02/04/2025 10:35:35 Stenosis of right vertebral artery 850945697 I65.01 07123312 CVA w/u was done during 12/18 to [...] ts to be clarified by NABEEL Dizziness 369934212 R42 98391 Chronic, leading to falls. Neurology suspected sec to vertebral artery stenosis.O rthostatic s were positive about 1/2 of the time during his last rehab stay here. D/Donell Doxazosin at that time.Kenny nue to monitor orthostati csContinue therapies. Fall precaution s in place. Benign hypertension 1072 5009 I10 743375 Unfortunat amandeep both intermitte ntly elevated and orthostati c, making control difficult. Required addition of Amlodipine during November hospitaliz ation.Cont inue Losartan & Amlodipine -- may need to dose adjust if pressures remain elevatedSt opped Doxazosin due to orthostasi s Chronic at rial fibrillation 192132848 I48.20 508415 Cards thought dizziness could be sec to [...] Bg Ramey as directed Mixed hyperlipidemia 267 562793 E78.2 59001 Presumed stable. continue Atorvastat in Hyponatremia 51834075 E8 7.1 48156 Na level trended 129-133 historical ly. Treating supportive ly for now.TSH was low with normal free T4 per labs on 12/21/24. Will need to recheck thyroid levels in mid-December.C ontinue to trend Na levels. Peripheral arterial disease 536939191 I73.9 071208 s/p angioplast y with stent.Cont inue baby ASA, statin and good BP control. Chronic ob structive pulmonary disease 94830021 J44.9 966269530 Not on routine inhalers. continue PRN VentolinRe spiratory status is stable. Benign pro static hyperplasia 258266096 N40.0 55379971 Stable. Voiding without concerns, per pt. UA while recently inpatient did not reflex to culture.St opped Doxazosin as above.Remedios tor closely. Constipation 86561563 K5 9.00 846629248 Stable. Continue daily Miralax and routine docusateAd ditional cathartics available per standing orders. Dementia 17615407 F03.90 8678536903 Appears mild, mood is pleasant. Continue Buspirone BIDST to follow.12/01 12/24 = BIMS score of 5/15. SLUMS score of 3/30. Recurrent major depression 58294770 F33.9 20434775 SEE ABOVE... Generalize d anxiety disorder 87829548 F41.1 504320 SEE ABOVE... Lumbosacra l spondylosis with radiculopathy 721395972 M47.27 44635473 Stable without recent concerns. Continue PRN APAP per standing orders. Seasonal allergy 5241077 04 J30.2 25061 Stable. Continue Flonase. No longer on PRN Atrovent nasal spray History of urinary tract infection 6861473266 107 Z87.618 0047679 Culture done 12/21/24 grew >100,000 staph coag negative species. D/Donell from hospital on Keflex x 4 days, completed 12/28/24. During most recent inpatient stay, UA was normal, did not meet reflex criteria.P atient does not currently have urinary symptoms. Monitor clinically . [id number] Sosa Richardson, DO [address] [address] 01/29/2025 12:25:04 02/04/2025 10:33:35 Acute exacerbation of chronic obstructive pulmonary disease 205290950 J44.1 477779 Not on routine inhalers. Continue PRN Ventolin.N ew complaints of MALDONADO with dry cough. CXR was unremarkab le beyond hyperinfla tion.Add Breo inhaler daily for maintenanc e of COPD.Kenny nue to monitor respirator y status -- stable today. Stenosis o f right vertebral artery 578826601 I65.01 27072562 CVA w/u was done during 12/18 to [...] to move forward with interventi on. Dizziness 189275546 R42 64663 Chronic, leading to falls. Neurology suspected sec to vertebral artery stenosis, however daughter tells me that Dr. Feldman (vascular) did not think this was related.Or thostatics were positive about 1/2 of the time during his last rehab stay here. D/Donell Doxazosin at that time.Kenny nue to monitor orthostati cs here.Kenny nue therapies. Fall precaution s in place. Benign hypertension 1072 5009 I10 643755 Unfortunat amandeep both intermitte ntly elevated and orthostati c, making control difficult. Required addition of Amlodipine during November hospitaliz ation.Cont inue Losartan & Amlodipine -- may need to dose adjust if pressures remain elevatedSt opped Doxazosin due to orthostasi s.Continue to trend blood pressures, monitor lytes and renal function, and adjust meds as clinically indicated. Chronic at rial fibrillation 878558833 I48.20 810174 Cards thought dizziness could be sec to [...] Bg Ramey as directed. Mixed hyperlipidemia 267 074535 E78.2 77582 Presumed stable. Continue Atorvastat in. Hyponatremia 78326398 E8 7.1 96882 Na level trended 129-133 historical ly. Treating supportive ly for now.TSH was low with normal free T4 per labs on 12/21/24. Will need to recheck thyroid levels in mid-December.C ontinue to trend Na levels. Peripheral arterial disease 286195034 I73.9 855585 s/p angioplast y with stent.Cont inue baby ASA, statin, and good BP control.F/ U with Dr. Ole Feldman as above. Benign pro static hyperplasia 836602933 N40.0 84207863 Stable. Voiding without concerns, per pt. UA while recently inpatient did not reflex to culture.St opped Doxazosin as above during last rehab stay.Monit or closely. Constipation 80477091 K5 9.00 068210128 Stable. Continue routine Miralax and Docusate. Additional cathartics available per standing orders. Dementia 31724143 F03.90 0746303491 Appears mild, mood is pleasant. Continue Buspirone routinely. ST following. 12/25/24 = BIMS score of 5/15. SLUMS score of 3/30. Recurrent major depression 25886445 F33.9 44443640 SEE ABOVE... Generalize d anxiety disorder 58313188 F41.1 625812 SEE ABOVE... Lumbosacra l spondylosis with radiculopathy 954401934 M47.27 63070467 Stable without recent concerns. Continue PRN APAP per standing orders. Seasonal allergy 8181915 04 J30.2 06018 Stable. Continue Flonase. No longer on PRN Atrovent nasal spray. History of urinary tract infection 5500641059 107 Z87.009 4270024 Culture done 12/21/24 grew >100,000 staph coag negative species. D/Donell from hospital on Keflex x 4 days, completed 12/28/24. During most recent inpatient stay, UAs were normal/did not meet reflex criteria.P atient does not currently have urinary symptoms. Monitor clinically . [id number] DO DANIELA Leon [address] [address] [place] [address] 02/02/2025 10:19:45 02/04/2025 10:34:50 Acute exacerbation of chronic obstructive pulmonary disease 243430801 J44.1 948456 Not previously on routine inhalers. New complaints of MALDONADO with dry cough. CXR was unremarkab le beyond hyperinfla tion and pt otherwise without URI/respir atory symptoms.A dded Breo inhaler daily. Continue PRN Ventolin.C ontinue to monitor respirator y status -- stable today. Stenosis o f right vertebral artery 867600503 I65.01 32071998 CVA w/u was done during 12/18 to [...] to move forward with interventi on. Dizziness 464627310 R42 38150 Chronic, leading to falls. Neurology suspected sec [...] in place. Benign hypertension 1072 5009 I10 574700 Unfortunat amandeep both intermitte ntly elevated and orthostati c, making control difficult. Required addition of Amlodipine during November hospitaliz ation.Cont inue Losartan & Amlodipine .Stopped Doxazosin due to orthostasi s.Continue to trend blood pressures, monitor lytes and renal function, and adjust meds as clinically indicated. Chronic at rial fibrillation 499734487 I48.20 092486 Cards thought dizziness could be sec to [...] Bg Ramey as directed. Mixed hyperlipidemia 267 758689 E78.2 71106 Presumed stable. Continue Atorvastat in. Hyponatremia 63763862 E8 7.1 19495 Na level trended 129-133 historical ly. Treating supportive ly for now.TSH was low with normal free T4 per labs on 12/21/24. Will need to recheck thyroid levels in mid-January .Continue to trend Na levels. Peripheral arterial disease 075063447 I73.9 749146 s/p angioplast y with stent.Cont inue baby ASA, statin, and good BP control.F/ U with Dr. Ole Feldman as above. Benign pro static hyperplasia 536006942 N40.0 98537628 Stable. Voiding without concerns, per pt. UA while recently inpatient did not reflex to culture.St opped Doxazosin as above during last rehab stay.Monit or closely. Constipation 42780033 K5 9.00 724120477 Stable. Continue routine Miralax and Docusate. Additional cathartics available per standing orders. Dementia 09556611 F03.90 8064981297 Appears mild, mood is pleasant. Continue Buspirone routinely. ST following. 12/25/24 = BIMS score of 5/15. SLUMS score of 3/30. Recurrent major depression 96580126 F33.9 10048782 SEE ABOVE... Generalize d anxiety disorder 05529427 F41.1 159276 SEE ABOVE... Lumbosacra l spondylosis with radiculopathy 366693859 M47.27 95775945 Stable without recent concerns. Continue PRN APAP per standing orders. Seasonal allergy 6057373 04 J30.2 24882 Stable. Continue Flonase. No longer on PRN Atrovent nasal spray. History of urinary tract infection 3648596685 107 Z87.471 9863132 Culture done 12/21/24 grew >100,000 staph coag negative species. D/Donell from hospital on Keflex x 4 days, completed 12/28/24. During most recent inpatient stay, UAs were normal/did not meet reflex criteria.P atient does not currently have urinary symptoms. Monitor clinically . 157554 Sosa Richardson DO [address] [address] 02/04/2025 10:53:04 02/15/2025 01:15:48 Acute exacerbation of chronic obstructive pulmonary disease 864329155 J44.1 871423 Not previously on routine inhalers. New complaints of MALDONADO with dry cough. CXR was unremarkab le beyond hyperinfla tion and pt otherwise without URI/respir atory symptoms.A dded Breo inhaler daily. Continue PRN Ventolin.C ontinue to monitor respirator y status -- stable today. Stenosis o f right vertebral artery 571814280 I65.01 99809843 CVA w/u was done during 12/18 to [...] to move forward with interventi on. Dizziness 270940262 R42 14837 Chronic, leading to falls. Neurology suspected sec to vertebral artery stenosis, however daughter tells me that Dr. Feldman (vascular) did not think this was related.Or thostatics were positive about 1/2 of the time during his last rehab stay here. D/Donell Doxazosin at that time. Orthostati cs here have been normal.Con tinue therapies. Fall precaution s in place. Benign hypertension 1072 5009 I10 884621 Unfortunat amandeep both intermitte ntly elevated and orthostati c, making control difficult. Required addition of Amlodipine during November hospitaliz ation.Cont inue Losartan & Amlodipine .Stopped Doxazosin due to orthostasi s.Continue to trend blood pressures, monitor lytes and renal function, and adjust meds as clinically indicated. Chronic at rial fibrillation 615871865 I48.20 692630 Cards thought dizziness could be sec to [...] Bg Ramey as directed. Mixed hyperlipidemia 267 312944 E78.2 24853 Presumed stable. Continue Atorvastat in. Hyponatremia 49423178 E8 7.1 58772 Na level trended 129-133 historical ly. Treating supportive ly for now.TSH was low with normal free T4 per labs on 12/21/24. Will need to recheck thyroid levels in mid-January .Continue to trend Na levels. Peripheral arterial disease 860087771 I73.9 575026 s/p angioplast y with stent.Cont inue baby ASA, statin, and good BP control.F/ U with Dr. Ole Feldman as above. Benign pro static hyperplasia 850727212 N40.0 13165868 Stable. Voiding without concerns, per pt. UA while recently inpatient did not reflex to culture.St opped Doxazosin as above during last rehab stay.Monit or closely. Constipation 38489879 K5 9.00 650017512 Stable. Continue routine Miralax and Docusate. Additional cathartics available per standing orders. Dementia 43003755 F03.90 3070003344 Appears mild, mood is pleasant. Continue Buspirone routinely. ST following. 12/25/24 = BIMS score of 5/15. SLUMS score of 3/30. Generalize d anxiety disorder 49447293 F41.1 869937 SEE ABOVE... Recurrent major depression 33976973 F33.9 13471555 SEE ABOVE... Lumbosacra l spondylosis with radiculopathy 231322721 M47.27 14865159 Stable without recent concerns. Continue PRN APAP per standing orders. Seasonal allergy 7210051 04 J30.2 27014 Stable. Continue Flonase. No longer on PRN Atrovent nasal spray. History of urinary tract infection 7820007429 107 Z87.269 8669797 Culture done 12/21/24 grew >100,000 staph coag negative species. D/Donell from hospital on Keflex x 4 days, completed 12/28/24. During most recent inpatient stay, UAs were normal/did not meet reflex criteria.P atient does not currently have urinary symptoms. Monitor clinically . [id number] Sosa Richardson DO [address] [address] 02/09/2025 10:46:02 02/15/2025 01:16:24 Acute exacerbation of chronic obstructive pulmonary disease 980912047 J44.1 125570 Not previously on routine inhalers. New complaints of MALDONADO with dry cough. CXR was unremarkab le beyond hyperinfla tion and pt otherwise without URI/respir atory symptoms.A dded Breo inhaler daily. Continue PRN Ventolin & Benzonatat e.Continue to monitor respirator y status -- stable today. Stenosis o f right vertebral artery 692880069 I65.01 43815507 CVA w/u was done during 12/18 to [...] to move forward with interventi on. Dizziness 658979214 R42 03215 Chronic, leading to falls. Neurology suspected sec to vertebral artery stenosis, however daughter tells me that Dr. Feldman (vascular) did not think this was related.Or thostatics were positive about 1/2 of the time during his last rehab stay here. D/Donell Doxazosin at that time. Orthostati cs here have been normal.Con tinue therapies. Fall precaution s in place. Benign hypertension 1072 5009 I10 187946 Unfortunat amandeep both intermitte ntly elevated and orthostati c, making control difficult. Required addition of Amlodipine during November hospitaliz ation.Cont inue Losartan & Amlodipine .Stopped Doxazosin due to orthostasi s.Continue to trend blood pressures, monitor lytes and renal function, and adjust meds as clinically indicated. Chronic at rial fibrillation 785811907 I48.20 905893 Cards thought dizziness could be sec to [...] Bg Ramey as directed. Mixed hyperlipidemia 267 316109 E78.2 41618 Presumed stable. Continue Atorvastat in. Hyponatremia 52643602 E8 7.1 01546 Na level trended 129-133 historical ly. Treating supportive ly for now.TSH was low with normal free T4 per labs on 12/21/24. Will need to recheck thyroid levels in mid-January .Continue to trend Na levels. Peripheral arterial disease 420008934 I73.9 550067 s/p angioplast y with stent.Cont inue baby ASA, statin, and good BP control.F/ U with Dr. Ole Feldman as above. Benign pro static hyperplasia 069909384 N40.0 47681059 Stable. Voiding without concerns, per pt. UA while recently inpatient did not reflex to culture.St opped Doxazosin as above during last rehab stay.Monit or closely. Constipation 31933351 K5 9.00 574810859 Stable. Continue routine Miralax and Docusate. Additional cathartics available per standing orders. Dementia 62264643 F03.90 3482430916 Appears mild, mood is pleasant. Continue Buspirone routinely. ST following. 12/25/24 = BIMS score of 5/15. SLUMS score of 3/30. Generalize d anxiety disorder 30642599 F41.1 524564 SEE ABOVE... Recurrent major depression 44354917 F33.9 95882352 SEE ABOVE... Lumbosacra l spondylosis with radiculopathy 380166132 M47.27 08386059 Stable without recent concerns. Continue PRN APAP per standing orders. Seasonal allergy 5655985 04 J30.2 41849 Stable. Continue Flonase. No longer on PRN Atrovent nasal spray. History of urinary tract infection 4749563186 107 Z87.720 2409306 Culture done 12/21/24 grew >100,000 staph coag negative species. D/Donell from hospital on Keflex x 4 days, completed 12/28/24. During most recent inpatient stay, UAs were normal/did not meet reflex criteria.P atient does not currently have urinary symptoms. Monitor clinically . 003128 Sosa Richardson, [address] [address] 02/11/2025 16:11:45 02/18/2025 08:29:07 Acute exacerbation of chronic obstructive pulmonary disease 743238163 J44.1 981168 Not previously on routine inhalers. New complaints of MALDONADO with dry cough. CXR was unremarkab le beyond hyperinfla tion and pt otherwise without URI/respir atory symptoms.A dded Breo inhaler daily. Continue PRN Ventolin & Benzonatat e.Continue to monitor respirator y status -- stable today. Stenosis o f right vertebral artery 236070182 I65.01 39271710 CVA w/u was done during 12/18 to [...] and good BP control.Co ntinue therapies via [facility].F/U with Dr. Ole Feldman (vascular) and Dr. Don Albert (neuro) - appointmen ts to be scheduled by daughter after discharge from rehab. Daughter noted that Dr. Feldman did not think dizziness was related to stenosis but does plan to move forward with interventi on. Dizziness 216235459 R48 53428 Chronic, leading to falls. Neurology suspected sec to vertebral artery stenosis, however daughter tells me that Dr. Feldman (vascular) did not think this was related.Or thostatics were positive about 1/2 of the time during his last rehab stay here. D/Donell Doxazosin at that time. Orthostati cs here have been normal.Con tinue therapies via [facility].Fall precaution s in place. Benign hypertension 1072 5009 I10 195906 Unfortunat amandeep both intermitte ntly elevated and orthostati c, making control difficult. Required addition of Amlodipine during November hospitaliz ation.Cont inue Losartan & Amlodipine .Stopped Doxazosin due to orthostasi s. Chronic at rial fibrillation 689916320 I48.20 749750 Cards thought dizziness could be sec to [...] Bg Ramey as directed. Mixed hyperlipidemia 267 689932 E78.2 63095 Presumed stable. Continue Atorvastat in. Hyponatremia 21028138 E8 7.1 62405 Na level trended 129-133 historical ly. Treating supportive ly for now.TSH was low with normal free T4 per labs on 12/21/24. Will need to recheck thyroid levels in mid-January .Continue to trend Na levels as OP. Peripheral arterial disease 806458519 I73.9 848310 s/p angioplast y with stent.Cont inue baby ASA, statin, and good BP control.F/ U with Dr. Ole Feldman as above. Benign pro static hyperplasia 307469278 N40.0 81712148 Stable. Voiding without concerns, per pt. UA while recently inpatient did not reflex to culture.St opped Doxazosin as above during last rehab stay.Monit or closely. Constipation 48515221 K5 9.00 426876851 Stable. Continue routine Miralax and Docusate. Additional cathartics available per standing orders. Dementia 07842258 F03.90 7146575433 Appears mild, mood is pleasant. Continue Buspirone routinely. ST has followed. = BIMS score of 5/15. SLUMS score of 3/30. Generalize d anxiety disorder 76660336 F41.1 989155 SEE ABOVE... Recurrent major depression 68811211 F33.9 24686069 SEE ABOVE... Lumbosacra l spondylosis with radiculopathy 481921770 M47.27 80519394 Stable without recent concerns. Continue PRN APAP per standing orders. Seasonal allergy 3144357 04 J30.2 40954 Stable. Continue Flonase. No longer on PRN Atrovent nasal spray. History of urinary tract infection 4728549053 107 Z87.973 2597526 Culture done 12/21/24 grew >100,000 staph coag [...] Arcos Member ID Guarantor Name 02/15/2025 1 [facility] (MEDICARE REPLACEMENT HMO) [id number] Noé Davila [id number] Noé Lola Notes Date Note Type Note [...] of walker during turns. Veronica Aguero, DYLAN [address] [place], [address], [facility] - [employer] [facility] 01/30/2025 10:01:30 02/02/2025 [...] = gait training for >200 ft with [facility] cues for upright posture to avoid excessive [...] -- 160/88 -- 152/76 Veronica Aguero, DYLAN [address] [facility], [place], [address], [facility] - [facility] 02/02/2025 16:36:07 02/04/2025 text/html ROS [...] when crossing elevator threshold. Veronica Aguero, DYLAN [address] [place], [address], [facility] 02/04/2025 15:03:54 02/09/2025 text/html ROS [...] = gait training for >200 ft with [facility] cues for upright posture to avoid excessive [...] = Conducted gait training with [address] [facility] cues for coordinated stepping and [...] thresholds for >200 ft Veronica Aguero, DYLAN [address] [place] [facility], [place], [address], [facility] 02/09/2025 15:24:23 02/11/2025 text/html ROS as noted in the HPI 89-year-old male with PMH of HTN, HLD, Afib, PAD s/p angioplasty with stent, COPD, BPH, Lumbar Spondylosis with Radiculopathy, Dementia, AGATA, MDD, and Allergies presenting for rehabilitation following hospitalization at [facility] from 01/22 to 01/25/25 for recurrent syncopal falls, HTN, and chronic medical conditions. Noé is known to us from a very recent post-acute rehab stay at this facility following inpatient stay at [facility] from 12/18 to 12/24/24 for acute CVA, [...] leaving the house. He discharged home with [facility] and family oversight on 01/14/25. Unfortunately [...] None [No longer on PRN Atrovent Nasal [place]]. 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 cues for coordinated stepping and [...] his daughter his plan to discharge to [facility] tomorrow. She is without concerns regarding his discharge plan. VSS. Staff is without concerns at this time. Per therapy notes = Conducted gait training with FWW 350' plus SBA occasional cues for staying within AD and for safety awareness. Veronica Aguero, DYLAN [id number] [facility], [place], [address], [facility] - [facility] 02/11/2025 16:44:54
--- NOTE | 2025-04-28 18:07 | PM.IMHP ---
H&P: HPI History of Present Illness Date/Time: 04/28/25 18:07 Chief Complaint: AMS, Hypoxia Narrative: 89 y/o M with PMH of pSVT, PE, PUD, AFib, PVD, COPD, BPH, anemia, anxiety/depression, HLD, and dementia presents here with altered mental status and possible hypoxia. The patient presents here from [facility] via EMS on 04/28 for further evaluation of altered mental status and hypoxia. The patient was recently admitted here from 04/17/2025 to 04/27/2025. At that time he was treated for acute on chronic dyspnea and altered mental status in the setting of COPD exacerbation, multifactorial delirium, and multiple comorbidities. He was noted to have new bilateral infiltrates consistent with pneumonia on his CXR from 04/26 for which he was discharged home on Levaquin. Returning today after his facility noted he was increasingly confused and they had some concern for hypoxia. Per EMS, the patient's O2 saturation was 92% upon their arrival. Arrived to the emergency department 100% on room air and A&O x1. Patient is typically A&O x3 at baseline with history of dementia. He currently reports a cough that he developed today. The patient currently denies chest pain, shortness a breath, fever, chills, nausea, vomiting, diarrhea. Initial VS at presentation: 98? F, HR 89, RR 23, 158/72, and 100% on RA. ED workup showed: No leukocytosis, hemoglobin 13.5, sodium 126, creatinine 0.88 and GFR >60, glucose 125, lactic 1.1, CRP 1.8, UA unremarkable except for 11-20 RBC. Patient tested positive for COVID upon admission on 04/28, previously negative on 04/15. Head CT showed no acute intracranial hemorrhage, mass effect and probable chronic ischemic white matter changes and cerebral atrophy appropriate for patient's age. Chest CT showed bilateral probable broncho pneumonia superimposed on chronic lung disease, micro nodules which are probably infectious underlying neoplasm is not excluded. Review of Systems Review of Systems: All systems reviewed & are unremarkable except as noted in HPI and below (Limited, disoriented) [facility] Past Medical History Medical History (Updated 04/28/25 @ 20:54 by Katie Feng, DARWIN) Diastolic CHF Chronic obstructive pulmonary disease CVA (cerebral vascular accident) BPH (benign prostatic hyperplasia) Seasonal allergies Elevated fasting glucose A1c 5.8% on 04/19/2025 Hyperthyroidism without thyroid nodule Hypertension Cerebrovascular disease PSVT (paroxysmal supraventricular tachycardia) Pulmonary emboli Peptic ulcer disease Lumbar radiculopathy Lumbar spondylosis Peripheral vascular disease Depression Seasonal allergies Anemia Atrial fibrillation Anxiety Constipation Dementia Hyperlipidemia Surgical History Surgical History H/O transurethral resection of prostate H/O cardiac catheterization H/O angioplasty Iliac vessels H/O cataract extraction Status post peripheral artery angioplasty with insertion of stent History of cholecystectomy Family History Family History Sibling CHF (congestive heart failure) Other Unknown family medical history Social History Social History Social History: He is a . He is [employer]. he is retired Healthcare power of transactional attorney: Roseanne Noguera. Code status: DNR Smoking packs per day: 1 Smoking cigarettes per day: 20.0 Smoking status: Former smoker Second hand tobacco smoke exposure: No Alcohol intake: never Drinks per week: 1 Substance use: never Substance use type: does not use Do You Feel Safe in your Home?: Yes Lack of Transportation: No Lack of Food: Never True Current Housing: I Have Housing Concerned About Future Housing: No Difficulty Paying Gas/Electric Bills: No Difficulty Paying for Meds: No Currently Unemployed: No Education: Grade School Difficulty w/ Childcare or Family Care: No Living arrangements: assisted living Occupation/Education: retired Gender identity (if verbalized by the patient): Male Sexual Orientation (if Verbalized by the Patient): Straight or Heterosexual Spiritual care concerns: Yes Agree to blood products: Yes Meds Home Medications and Allergies Home Medications ?Medication ?Instructions ?Recorded ?Confirmed ?Type aspirin 81 mg tablet,delayed 81 mg PO DAILY 12/12/21 04/28/25 History release polyethylene glycol 3350 17 gram 17 g PO QAM #7 ea 03/15/24 04/28/25 Rx oral powder packet (Miralax) amlodipine 5 mg tablet 5 mg PO DAILY #30 tabs 12/24/24 04/28/25 Rx losartan 100 mg tablet 50 mg PO DAILY 01/22/25 04/28/25 History buspirone 5 mg tablet 5 mg PO Q12HR #60 tabs 01/24/25 04/28/25 Rx docusate sodium 100 mg capsule 100 mg PO BID #30 caps 01/24/25 04/28/25 Rx atorvastatin 40 mg tablet (Lipitor) 20 mg (1/2 x 40 mg) PO DAILY #90 03/04/25 04/28/25 Rx tabs albuterol sulfate 90 mcg/actuation 2 puff inhalation Q4H PRN 03/24/25 04/28/25 History aerosol inhaler (Ventolin HFA) shortness of breath or wheezing benzonatate 200 mg capsule 200 mg PO .Q8HR PRN cough 04/16/25 04/28/25 History fluticasone furoate 100 1 inh inhalation DAILY 04/16/25 04/28/25 History mcg-vilanterol 25 mcg/dose inhalation powder (Breo Ellipta) fluticasone propionate 50 1 spray intranasal BID 04/16/25 04/28/25 History mcg/actuation nasal spray,suspension (24 Hour Allergy Relief) melatonin 3 mg tablet 3 mg PO HS #30 tabs 04/25/25 04/28/25 Rx pantoprazole 40 mg tablet,delayed 40 mg PO QAM #30 tabs 04/25/25 04/28/25 Rx release albuterol sulfate 5 mg/mL(0.5 %) 2.5 mg (0.5 mL) inhalation Q6H PRN 04/27/25 04/28/25 Rx solution for nebulization shortness of breath or wheezing #100 mL doxycycline hyclate 100 mg tablet 100 mg PO BID 6 days #12 tabs 04/27/25 04/28/25 Rx levofloxacin 750 mg tablet 750 mg PO DAILY #6 tabs 04/27/25 04/28/25 Rx methimazole 5 mg tablet 5 mg PO DAILY #30 tabs 04/27/25 04/28/25 Rx nebulizer and compressor #1 ea 04/27/25 Rx (All-In-One Nebulizer System) prednisone 10 mg tablet 10 mg PO DIRECTED #9 tabs 04/27/25 04/28/25 Rx propranolol 10 mg tablet 10 mg PO BID 30 days #60 tabs 04/27/25 04/28/25 Rx sodium chloride 1,000 mg soluble 1,000 mg PO BID 7 days #14 tabs 04/27/25 04/28/25 Rx tablet tamsulosin 0.4 mg capsule 0.8 mg (2 x 0.4 mg) PO HS 30 days 04/27/25 04/28/25 Rx #60 caps Allergies Allergy/AdvReac Type Severity Reaction Status Date / Time No Known Allergies Allergy Verified 04/28/25 20:11 Vital Signs Vital Signs - 24 hr 04/28/25 15:05 04/28/25 15:21 04/28/25 15:21 Temperature 98.0 F Pulse Rate 89 92 Respiratory Rate 23 H 20 Blood Pressure 158/72 H 158/72 H Pulse Oximetry 100 99 99 Oxygen Delivery Room Air Room Air 04/28/25 16:00 04/28/25 16:22 Temperature Pulse Rate 86 88 Respiratory Rate 23 H Blood Pressure 157/76 H Pulse Oximetry 96 Oxygen Delivery Exam Const: General: comfortable and no acute distress Other: , male, elderly, nontoxic appearance HENMT: Face/Nose/Sinus: Normal nares present Mouth: Yes moist mucous membranes Eyes: General: appearance normal, both eyes and all related structures Sclera: sclerae normal Pupils: Equal, round and reactive pupils present EOM: EOMs intact bilaterally Resp: Effort & Inspection: normal respiratory effort Auscultation: clear to auscultation bilaterally Cardio: Rate: regular rate Rhythm: regular rhythm Other: S1-S2 present without murmur, rub, ectopy GI: Other: Abdomen soft, nondistended, nontender. Normoactive bowel sounds in all quadrants. Skin: General skin exam: normal color and no rashes or lesions noted Wounds: no wounds Neuro: Speech: normal speech Motor exam (neuro): 5/5 motor strength present throughout Sensory Exam: normal sensation Other: A&O x1 Extrem: Other: 2+ pitting edema to bilateral lower extremities, symmetric Psych: Mental Status: mental status grossly normal Affect: normal affect Other: Poor insight and judgment, very pleasant. H&P: Results Labs Labs: Short CBC 04/28/25 Range/Units 15:37 WBC 8.7 (4.5-10.0) K/mm3 Hgb 13.5 L (14.0-18.0) g/dL Hct 40.2 L (42.0-52.0) % Plt Count 292 (150-375) k/mm3 [facility] 04/28/25 15:37 Sodium 126 L Potassium 4.8 Chloride 95 L Carbon Dioxide 26 BUN 24 H Creatinine 0.88 Glucose 125 H Calcium 8.7 Liver Function 04/28/25 Range/Units 15:37 Total Bilirubin 0.7 (0.2-1.3) mg/dL AST 28 (17-59) U/L ALT 34 (6-50) U/L Alkaline Phosphatase 107 (38-126) U/L Albumin 3.5 (3.5-5.1) g/dL Urine 04/28/25 Range/Units 15:41 Urine Color Yellow (Yellow) Urine Appearance Clear (Clear) Urine pH 8.0 (5.0-9.0) Ur Specific [place] 1.016 (1.001-1.035) Urine Protein Trace (Negative) mg/dL Urine Glucose (UA) Negative (Negative) mg/dL Assessment and Plan Assessment and plan (1) AMS (altered mental status): Qualifiers: Altered mental status type: disorientation Qualified Code(s): R41.0 - Disorientation, unspecified Code(s): R41.82 - Altered mental status, unspecified Status: Acute Assessment and Plan: Patient's reported baseline is A&O x3. Reviewed previous notes from most recent admission, family reported that the patient requires you to speak slowly and use simple terms. Days and years blend together. Recently started to get family members confused and more agitated. Most recently A&O x1 on 04/[address] Head CT completed in the ED on 04/28 which showed no acute findings, chronic findings including probable chronic ischemic white matter changes and cerebral atrophy appropriate for patient's age. Patient tested positive for COVID upon admission on 04/28 which is likely contributing to patient's worsening confusion. Imaging also concerning for unresolved pneumonia. The patient was also noted to have hyponatremia during his recent stay and was discharged home with a sodium of 131, returning today with a sodium of 126. - head CT unremarkable on 04/28 - tested positive for COVID on 04/28, likely contributing to patient's current alteration - hyponatremia noted during most recent admission, discharged with a sodium of 131. Now 126, could also be contributing. Continue sodium tablets. (2) COVID: Code(s): U07.1 - COVID-19 Status: Acute Assessment and Plan: Symptom onset unclear. Patient tested positive for COVID on 04/28. Was previously tested on 04/15 which was negative. Some concern for hypoxia noted by the patient's facility, however no hypoxia has been recorded since his arrival in the emergency department. - tested positive for COVID on 04/28 - start Remdesivir 200 mg IVPB x1 then 100 mg x4 for 5 total doses. - no current indication for steroids as the patient is not currently hypoxic anticoagulation: prophylactic heparin, therapeutic if elevated d-dimer - heparin subQ as prophylaxis - supportive care: Tylenol p.r.n., Tessalon Perles p.r.n., Mucinex miguelina, DuoNebs p.r.n. - monitor VS, O2, and daily labs (3) Bronchopneumonia: Code(s): J18.0 - Bronchopneumonia, unspecified organism Status: Acute Assessment and Plan: Patient showed probable viral pneumonitis on CXR from 04/24. CXR repeated on 04/26 which showed bilateral pneumonia, discharged home on Levaquin yesterday (04/27). Chest CT (04/28) showed bilateral probable bronchopneumonia superimposed on chronic lung disease. Patient tested positive for COVID on 04/28. - started on azithromycin and cefepime on 04/28, hold Levaquin course that was prescribed to him at discharge - supportive care - MRSA PCR negative on 04/27/2025 (4) Hyponatremia: Code(s): E87.1 - Hypo-osmolality and hyponatremia Status: Acute Assessment and Plan: Sodium 131 on upon discharge on 04/27, repeat today was 126. May be contributing to patient's current confusion superimposed on his pre-existing dementia. - continue NaCl 1G b.i.d. - exchange heart healthy diet for regular diet to increased sodium intake - patient recently diagnosed with hyperthyroidism, initiated on treatment during his most recent admission - will forego hyponatremia workup at this time as he recently had 1 completed - previously trialed on IV fluids which improved his sodium, however he developed tachypnea crackles and required Lasix. Will hold off on fluids at this time. (5) Diastolic CHF: Qualifiers: Heart failure chronicity: chronic Qualified Code(s): I50.32 - Chronic diastolic (congestive) heart failure Code(s): I50.30 - Unspecified diastolic (congestive) heart failure Status: Chronic Assessment and Plan: No evidence of pulmonary edema on chest CT. Patient does have 2+ pitting edema to the bilateral lower extremities. During his most recent admission he received IV fluids due to hyponatremia and developed crackles on exam which required IV Lasix. Given the significance of his bilateral lower extremity edema, will give Lasix 40 mg IV once. Will need reassessment and close monitoring of his renal function/sodium levels. - Lasix 40 mg x 1 - monitor I&Os and daily weights - monitor renal function and sodium level (6) COPD (chronic obstructive pulmonary disease): Qualifiers: COPD type: unspecified COPD Qualified Code(s): J44.9 - Chronic obstructive pulmonary disease, unspecified Code(s): J44.9 - Chronic obstructive pulmonary disease, unspecified Status: Chronic Assessment and Plan: No current wheezing on exam. No current concern for exacerbation. - continue home medications (7) Benign prostatic hyperplasia: Qualifiers: Lower urinary tract symptom detail: unspecified Lower urinary tract symptom presence: symptoms present Qualified Code(s): N40.1 - Benign prostatic hyperplasia with lower urinary tract symptoms Code(s): N40.0 - Benign prostatic hyperplasia without lower urinary tract symptoms Status: Chronic Assessment and Plan: History of BPH with normal PSA. Recently started on tamsulosin on 04/18, increased to 0.8 mg prior to recent discharge. Patient also started on dutasteride. Referred to urology at discharge on 04/26. - bladder scan prn - continue Flomax and dutasteride (8) Hypertension: Qualifiers: Hypertension type: primary hypertension Qualified Code(s): I10 - Essential (primary) hypertension Code(s): I10 - Essential (primary) hypertension Status: Chronic Assessment and Plan: - chronic, currently for 140/74, stable. - continue home medications: Losartan, amlodipine - monitor (9) Hyperthyroidism without thyroid nodule: Code(s): E05.90 - Thyrotoxicosis, unspecified without thyrotoxic crisis or storm Status: Chronic Assessment and Plan: Recent diagnosis of hypothyroidism during his most recent admission. - previous Labs: 04/19 - TSH <0.015, T4 2.33, free T3 2.92 04/24 - TSH 0.053, T4 2.48, free T3 2.6 - continue methimazole and propranolol - will need f/u outpatient with an railroad car painter (10) Depression: Qualifiers: Depression Type: unspecified Qualified Code(s): F32.A - Depression, unspecified Code(s): F32.A - Depression, unspecified Status: Chronic Assessment and Plan: History of depression and anxiety. Recently more agitated, attributed to history of dementia and recent illnesses. - continue buspirone (11) Hyperlipidemia: Qualifiers: Hyperlipidemia type: unspecified Qualified Code(s): E78.5 - Hyperlipidemia, unspecified Code(s): E78.5 - Hyperlipidemia, unspecified Status: Chronic Assessment and Plan: - continue atorvastatin Plan Diet: Regular GI Prophylaxis: N/a DVT Prophylaxis: Heparin subQ IV fluids: None Lines/Tubes: Peripheral IV Code Status: DNR
[2025-04-28] MEDS: CEFEPIME 2 GM in SODIUM CHLORIDE 0.9% IV 50 ML 100 ML IVPB (18:10)
--- NOTE | 2025-04-28 19:55 | ADMGEN ---
This patient, Noé Davila, was admitted to Medical Room 256-01. Patient/family oriented to hospital policies and general routines including ID bracelet, bed and alarms, visiting hours, pain management, procedures, bathroom and other care routines, personal items, smoking policy, room service/diet, and visiting hours. Information on how to activate the Rapid Response Team has been discussed. Patient/Family are encouraged to report perceived risks to care and to ask questions if they do not understand what they are told or what they should do.
[2025-04-28] MEDS: guaiFENesin 12 HR 600 MG TABCR PO (20:44)
[2025-04-28] MEDS: FUROSEMIDE INJ 40 MG/4 ML VIAL IV PUSH (20:44)
[2025-04-28] MEDS: AZITHROMYCIN IV 500 MG in SODIUM CHLORIDE 0.9% IV 250 ML IVPB (20:44)
[2025-04-28] MEDS: MELATONIN 3 MG TABLET PO (20:54)
[2025-04-28] MEDS: TAMSULOSIN HCL 0.4 MG CAPSULE 0.8 MG PO (21:26)
[2025-04-28] MEDS: PROPRANOLOL HCL 10 MG TABLET PO (21:26)
[2025-04-28] MEDS: REMDESIVIR 200 MG/NS 250 ML 200 MG/250 ML BAG 250 MG IVPB (22:01)
[2025-04-29] VITALS (13 sets, daily range): BP systolic 105–147; BP diastolic 51–62; PULSE 70–149; RESP 16–20; TEMP 36.3–36.8; O2SAT 91–94
[2025-04-29] MEDS: CEFEPIME 2 GM in SODIUM CHLORIDE 0.9% IV 50 ML 100 ML IVPB ×2 (05:00→17:25)
[2025-04-29 05:10] LABS: Hematocrit 38.2 % (42.0-52.0); Hemoglobin 13.0 g/dL (14.0-18.0); Immature Granulocyte Percent A 1.6 % (0-0.5); Lymphocytes Absolute Auto 0.59 K/mm3 (0.9-3.2); Mean Corpuscular HGB Conc 34.0 g/dl (32-36); Mean Corpuscular Hemoglobin 31.1 pg (26-34); Mean Corpuscular Volume 91.4 fl (80-100); Nucleated Red Blood Cells Absolute Auto 0.000 K/mm3 (0.0-0.012); Nucleated Red Blood Cells Perc 0.0 % (0.0-0.2); Platelet Count Result 289 k/mm3 (150-375); Red Blood Count 4.18 M/mm3 (4.6-6.20); White Blood Count 7.7 K/mm3 (4.5-10.0)
[2025-04-29 05:21] LABS: Anion Gap 9 mmol/L (4-12); Blood Urea Nitrogen 26 mg/dL (9-20); Calcium 8.5 mg/dL (8.4-10.2); Carbon Dioxide 23 mmol/L (22-30); Chloride 93 mmol/L (98-107); Estimated CRCL calculation 44 ml/min; Estimated Glomerular Filt Rate > 60; Glucose 110 mg/dL (65-110); Potassium 3.8 mmol/L (3.4-5.0); Sodium 125 mmol/L (137-145)
[2025-04-29] MEDS: FLUTICASONE/SALMETEROL 115-21 MCG INHALER 1 PUFF 2 PUFF INHALATION ×2 (08:02→20:23)
[2025-04-29] MEDS: PROPRANOLOL HCL 10 MG TABLET PO ×2 (08:03→17:24)
[2025-04-29] MEDS: DOCUSATE SODIUM 100 MG CAPSULE PO ×2 (08:03→17:24)
[2025-04-29] MEDS: BENZONATATE 100 MG CAPSULE PO (08:03)
[2025-04-29] MEDS: PANTOPRAZOLE 40 MG TABLET PO (08:03)
[2025-04-29] MEDS: ASPIRIN 81 MG ENTERIC TABLET PO (08:03)
[2025-04-29] MEDS: ATORVASTATIN 20 MG TABLET PO (08:04)
[2025-04-29] MEDS: guaiFENesin 12 HR 600 MG TABCR PO ×2 (08:04→20:11)
[2025-04-29] MEDS: ACETAMINOPHEN 325 MG TABLET 650 MG PO (08:04)
[2025-04-29] MEDS: LOSARTAN POTASSIUM 50 MG TABLET PO (08:04)
[2025-04-29] MEDS: SODIUM CHLORIDE 1 GM TABLET PO ×2 (08:04→17:24)
[2025-04-29] MEDS: FLUTICASONE PROPIONATE 0.05% NA SPR 16 GM BTL (*BKC) 1 SPRAY NASAL ×2 (08:05→17:25)
--- NOTE | 2025-04-29 08:28 | P.PNIM_ITS ---
Progress Note: A&P Assessment and Plan (1) AMS (altered mental status): Qualifiers: Altered mental status type: disorientation Qualified Code(s): R41.0 - Disorientation, unspecified Code(s): R41.82 - Altered mental status, unspecified Status: Acute Assessment and Plan: Patient's reported baseline is A&O x3. Reviewed previous notes from most recent admission, family reported that the patient requires you to speak slowly and use simple terms. Days and years blend together. Recently started to get family members confused and more agitated. Most recently A&O x1 on 04/26 per provider note. Head CT completed in the ED on 04/28 which showed no acute findings, chronic findings including probable chronic ischemic white matter changes and cerebral atrophy appropriate for patient's age. Patient tested positive for COVID upon admission on 04/28 which is likely contributing to patient's wo rsening confusion. Imaging also concerning for unresolved pneumonia. The patient was also noted to have hyponatremia during his recent stay and was discharged home with a sodium of 131, returning today with a sodium of 126. - head CT unremarkable on 04/28 - tested positive for COVID on 04/28, likely contributing to patient's current alteration - hyponatremia noted during most recent admission, discharged with a sodium of 131. Now 126, could also be contributing. Continue sodium tablets. 04/29: -Na 125 today, continue NaCl tabs -Urine osm WDL 04/21 & serum osm low 04/21, redrawn 04/26, pending (2) COVID: Code(s): U07.1 - COVID-19 Status: Acute Assessment and Plan: Symptom onset unclear. Patient tested positive for COVID on 04/28. Was previously tested on 04/15 which was negative. Some concern for hypoxia noted by the patient's facility, however no hypoxia has been recorded since his arrival in the emergency department. - tested positive for COVID on 04/28 - start Remdesivir 200 mg IVPB x1 then 100 mg x4 for 5 total doses. - no current indication for steroids as the patient is not currently hypoxic anticoagulation: prophylactic heparin, therapeutic if elevated d-dimer - heparin subQ as prophylaxis - supportive care: Tylenol p.r.n., Tessalon Perles p.r.n., Mucinex connie, DuoNebs p.r.n. - monitor VS, O2, and daily labs (3) Bronchopneumonia: Code(s): J18.0 - Bronchopneumonia, unspecified organism Status: Acute Assessment and Plan: Patient showed probable viral pneumonitis on CXR from 04/24. CXR repeated on 04/26 which showed bilateral pneumonia, discharged home on Levaquin yesterday (04/27). Chest CT (04/28) showed bilateral probable bronchopneumonia supe rimposed on chronic lung disease. Patient tested positive for COVID on 04/28. - started on azithromycin and cefepime on 04/28, hold Levaquin course that was prescribed to him at discharge - supportive care - MRSA PCR negative on 04/27/2025 (4) Hyponatremia: Code(s): E87.1 - Hypo-osmolality and hyponatremia Status: Acute Assessment and Plan: Sodium 131 on upon discharge on 04/27, repeat today was 126. May be contributing to patient's current confusion superimposed on his pre-existing dementia. - continue NaCl 1G b.i.d. - exchange heart healthy diet for regular diet to increased sodium intake - patient recently diagnosed with hyperthyroidism, initiated on treatment during his most recent admission - will forego hyponatremia workup at this time as he recently had 1 completed - previously trialed on IV fluids which improved his sodium, however he developed tachypnea crackles and required Lasix. Will hold off on fluids at this time. -Na 125 today, continue NaCl tabs -Urine osm WDL 04/21 & serum osm low 04/21, redrawn 04/26, pending (5) Diastolic CHF: Qualifiers: Heart failure chronicity: chronic Qualified Code(s): I50.32 - Chronic diastolic (congestive) heart failure Code(s): I50.30 - Unspecified diastolic (congestive) heart failure Status: Chronic Assessment and Plan: No evidence of pulmonary edema on chest CT. Patient does have 2+ pitting edema to the bilateral lower extremities. During his most recent admission he received IV fluids due to hyponatremia and developed crackles on exam which required IV Lasix. Given the significance of his bilateral lower extremity edema, will give Lasix 40 mg IV once. Will need reassessment and close monitoring of his renal function/sodium levels. - Lasix 40 mg x 1 - monitor I&Os and daily weights - monitor renal function and sodium level 04/29: BLE edema trace (6) COPD (chronic obstructive pulmonary disease): Qualifiers: COPD type: unspecified COPD Qualified Code(s): J44.9 - Chronic obstructive pulmonary disease, unspecified Code(s): J44.9 - Chronic obstructive pulmonary disease, unspecified Status: Chronic Assessment and Plan: No current wheezing on exam. No current concern for exacerbation. - continue home medications (7) Benign prostatic hyperplasia: Qualifiers: Lower urinary tract symptom detail: unspecified Lower urinary tract symptom presence: symptoms present Qualified Code(s): N40.1 - Benign prostatic hyperplasia with lower urinary tract symptoms Code(s): N40.0 - Benign prostatic hyperplasia without lower urinary tract symptoms Status: Chronic Assessment and Plan: History of BPH with normal PSA. Recently started on tamsulosin on 04/18, increased to 0.8 mg prior to recent discharge. Patient also started on dutasteride. Referred to urology at discharge on 04/26. - bladder scan prn - continue Flomax and dutasteride (8) Hypertension: Qualifiers: Hypertension type: primary hypertension Qualified Code(s): I10 - Essential (primary) hypertension Code(s): I10 - Essential (primary) hypertension Status: Chronic Assessment and Plan: - chronic, currently for 147/, stable. - continue home medications: Losartan, amlodipine - monitor (9) Hyperthyroidism without thyroid nodule: Code(s): E05.90 - Thyrotoxicosis, unspecified without thyrotoxic crisis or storm Status: Chronic Assessment and Plan: Recent diagnosis of hypothyroidism during his most recent admission. - previous Labs: 04/19 - TSH <0.015, T4 2.33, free T3 2.92 04/24 - TSH 0.053, T4 2.48, free T3 2.6 - continue methimazole and propranolol - will need f/u outpatient with an electrostatic painter (10) Depression: Qualifiers: Depression Type: unspecified Qualified Code(s): F32.A - Depression, unspecified Code(s): F32.A - Depression, unspecified Status: Chronic Assessment and Plan: History of depression and anxiety. Recently more agitated, attributed to history of dementia and recent illnesses. - continue buspirone (11) Hyperlipidemia: Qualifiers: Hyperlipidemia type: unspecified Qualified Code(s): E78.5 - Hyperlipidemia, unspecified Code(s): E78.5 - Hyperlipidemia, unspecified Status: Chronic Assessment and Plan: - continue atorvastatin (12) Atrial fibrillation: Code(s): I48.91 - Unspecified atrial fibrillation Status: Chronic Assessment and Plan: RVR per RN this AM. To the bedside, bpm 100's-140's, pt sitting up eating breakfast. -Given AM dose of propranolol 10mg for hyperthyroid, upon re-examination, pt in NSR TELE 79bpm -Continue TELE (13) Acid reflux: Code(s): K21.9 - Gastro-esophageal reflux disease without esophagitis Status: Acute Assessment and Plan: Pt reports burning in his upper abd -Pepcid ordered today Plan Diet: Regular GI Prophylaxis: N/a DVT Prophylaxis: Heparin subQ IV fluids: None Lines/Tubes: Peripheral IV Code Status: DNR Subjective Date/time seen: 04/29/25 1030 Interval history: Pt to the ED from his care facility for possible hypoxia per note. Pt found to have residual PNA and COVID+ but no reports of hypoxia. Pt denies issues breathing or really any sx. Of note, pt was here recently for extended pulm w/u and CVA r/o. Upon re-eval, pt daughter Roseanne at the bedside. Updated her on POC. Review of Systems Review of Systems: All systems reviewed & are unremarkable except as noted in HPI and below (Limited, disoriented) Exam Const: General: comfortable and no acute distress Other: , male, elderly, nontoxic appearance HENMT: Face/Nose/Sinus: Normal nares present Mouth: Yes moist mucous membranes Eyes: General: appearance normal, both eyes and all related structures Sclera: sclerae normal Pupils: Equal, round and reactive pupils present EOM: EOMs intact bilaterally Resp: Effort & Inspection: normal respiratory effort Auscultation: clear to auscultation bilaterally Cardio: Rate: regular rate Rhythm: regular rhythm Other: S1-S2 present without murmur, rub, ectopy GI: Other: Abdomen soft, nondistended, nontender. Normoactive bowel sounds in all quadrants. Skin: General skin exam: normal color and no rashes or lesions noted Wounds: no wounds Neuro: Cranial nerves: Yes Equal, round and reactive pupils present Speech: normal speech Motor exam (neuro): 5/5 motor strength present throughout Sensory Exam: normal sensation Other: A&O x1 Extrem: Other: trace edema to bilateral lower extremities, symmetric Psych: Mental Status: mental status grossly normal Affect: normal affect Other: Poor insight and judgment, very pleasant. Objective Data Vital Signs Vital Signs: Vital Signs - 24 hr 04/28/25 15:05 04/28/25 15:21 04/28/25 15:21 Temperature 98.0 F Pulse Rate 89 92 Respiratory Rate 23 H 20 Blood Pressure 158/72 H 158/72 H Pulse Oximetry 100 99 99 Oxygen Delivery Room Air Room Air 04/28/25 16:00 04/28/25 16:22 04/28/25 18:45 Temperature Pulse Rate 86 88 96 Respiratory Rate 23 H 24 H Blood Pressure 157/76 H 140/74 Pulse Oximetry 96 94 Oxygen Delivery 04/28/25 19:40 04/28/25 20:05 04/28/25 20:21 Temperature 97.7 F 97.4 F L Pulse Rate 92 91 92 Respiratory Rate 24 H 18 24 H Blood Pressure 143/74 H 147/54 H Pulse Oximetry 94 95 94 Oxygen Delivery Room Air 04/29/25 00:00 04/29/25 04:00 04/29/25 04:09 Temperature 97.4 F L Pulse Rate 81 84 77 Respiratory Rate 17 Blood Pressure 147/62 H Pulse Oximetry 91 Oxygen Delivery 04/29/25 08:03 04/29/25 08:06 04/29/25 08:06 Temperature Pulse Rate 149 H 115 H 115 H Respiratory Rate 20 20 Blood Pressure Pulse Oximetry 94 Oxygen Delivery Room Air Intake/Output Intake/Output: Intake & Output 04/26/25 04/27/25 04/28/25 04/29/25 23:59 23:59 23:59 23:59 Intake Total 50 350 Output Total 150 1500 Balance -100 -1150 Meds/Results Medications: Active Medications Generic Name Dose Route Start Last Admin Trade Name Freq PRN Reason Stop Dose Admin Acetaminophen 650 mg 04/28/25 18:50 04/29/25 08:04 Acetaminophen 325 Mg Tablet PO 650 mg Q4H PRN Administration Mild Pain (1-3) or Fever Albuterol 2.5 mg 04/28/25 21:15 Albuterol Sulfate Neb 2.5 Mg/3 Ml Inh INHALATION Q6H PRN shortness of breath or wheezing Albuterol/Ipratropium 3 ml 04/28/25 18:50 Ipratropium 0.5 Mg/Albuterol Sulfate 2.5 Mg (Base) Ampul.Neb 3 Ml INHALATION Q6H PRN Shortness Of Breath Or Wheezing Amlodipine Besylate 5 mg 04/29/25 09:00 04/29/25 08:04 Amlodipine Besylate 5 Mg Tablet PO 5 mg DAILY CONNIE Administration Aspirin 81 mg 04/29/25 09:00 04/29/25 08:03 Aspirin 81 Mg Enteric Tablet PO 81 mg DAILY CONNIE Administration Atorvastatin Calcium 20 mg 04/29/25 09:00 04/29/25 08:04 Atorvastatin 20 Mg Tablet PO 20 mg DAILY CONNIE Administration Benzonatate 100 mg 04/28/25 18:50 04/29/25 08:03 Benzonatate 100 Mg Capsule PO 100 mg TID PRN Administration Cough Bisacodyl 5 mg 04/28/25 18:50 Bisacodyl 5 Mg Tablet Ec PO DAILY PRN Constipation Buspirone HCl 5 mg 04/28/25 21:00 04/29/25 08:04 Buspirone Hcl 5 Mg Tablet PO 5 mg Q12HR CONNIE Administration Docusate Sodium 100 mg 04/29/25 09:00 04/29/25 08:03 Docusate Sodium 100 Mg Capsule PO 100 mg BID CONNIE Administration Fluticasone Propionate 1 spray 04/29/25 09:00 04/29/25 08:05 Fluticasone Propionate 0.05% Na Spr 16 Gm Btl (*Bkc) NASAL 1 spray BID CONNIE Administration Guaifenesin 600 mg 04/28/25 21:00 04/29/25 08:04 Guaifenesin 12 Hr 600 Mg Tabcr PO 600 mg Q12HR CONNIE Administration Heparin Sodium (Porcine) 5,000 units 04/28/25 21:00 04/28/25 20:44 Heparin Sodium 5,000 Units/Ml Vial SUB-Q 5,000 units Q12HR CONNIE Administration Cefepime HCl 2 gm/ Sodium 50 mls @ 100 mls/hr 04/29/25 06:00 04/29/25 05:00 Chloride IVPB 100 mls/hr Q12H CONNIE Administration Azithromycin 500 mg/ Sodium 250 mls @ 250 mls/hr 04/28/25 20:00 04/28/25 20:44 Chloride IVPB 250 mls/hr Q24H CONNIE Administration Remdesivir 100 mg in 250 mls @ 250 mls/hr 04/29/25 22:00 IVPB 05/02/25 22:59 Q24H [facility] Losartan Potassium 50 mg 04/29/25 09:00 04/29/25 08:04 Losartan Potassium 50 Mg Tablet PO 50 mg DAILY CONNIE Administration Melatonin 3 mg 04/28/25 21:00 04/28/25 20:54 Melatonin 3 Mg Tablet PO 3 mg HS CONNIE Administration Methimazole 5 mg 04/29/25 09:00 04/29/25 08:04 Methimazole 5 Mg Tab PO 5 mg DAILY CONNIE Administration Pantoprazole Sodium 40 mg 04/29/25 09:00 04/29/25 08:03 Pantoprazole 40 Mg Tablet PO 40 mg QAM [facility] Administration Polyethylene Glycol 17 gm 04/29/25 09:00 04/29/25 08:05 Polyethylene Glycol 3350 17 Gm Powd.Pack PO Not Given QAM [facility] Prednisone 20 mg 04/29/25 09:00 04/29/25 08:04 Prednisone 10 Mg Tablet PO 04/29/25 09:01 20 mg DAILY CONNIE Administration Prednisone 10 mg 04/30/25 09:00 Prednisone 10 Mg Tablet PO 05/02/25 09:01 DAILY [facility] Prednisone 5 mg 05/03/25 09:00 Prednisone 5 Mg Tablet PO 05/05/25 09:01 DAILY [facility] Propranolol HCl 10 mg 04/28/25 21:20 04/29/25 08:03 Propranolol Hcl 10 Mg Tablet PO 10 mg BID CONNIE Administration Fluticasone/Salmeterol 2 puff 04/29/25 08:00 04/29/25 08:02 Fluticasone/Salmeterol 115-21 Mcg Inhaler 1 Puff INHALATION 2 puff Q12HRT CONNIE Administration Sodium Chloride 1 gm 04/29/25 09:00 04/29/25 08:04 Sodium Chloride 1 Gm Tablet PO 05/05/25 09:01 1 gm BID CONNIE Administration Tamsulosin HCl 0.8 mg 04/28/25 21:00 04/28/25 21:26 Tamsulosin Hcl 0.4 Mg Capsule PO 0.8 mg HS CONNIE Administration Radiology Results: ITS Impressions Head CT 04/28/25 16:49 IMPRESSION: 1. No acute intracranial hemorrhage. No mass effect. 2. Probable chronic ischemic white matter change. 3. Cerebral atrophy appropriate for the patient's age. If symptoms persist or worsen, consider a short-term follow-up study or additional imaging for further assessment. Chest CT 04/28/25 16:55 IMPRESSION: Bilateral probable bronchopneumonia superimposed on chronic lung disease. There are micronodules which are probably infectious, underlying neoplasm is not excluded. Follow-up after treatment is recommended to assess improvement Labs Labs: Laboratory Results - last 24 hr 04/28/25 04/28/25 04/28/25 15:37 15:39 15:41 WBC 8.7 RBC 4.35 L Hgb 13.5 L Hct 40.2 L MCV 92.4 MCH 31.0 MCHC 33.6 RDW 13.3 Plt Count 292 MPV 8.6 Immature Gran % (Auto) 2.0 H Neut % (Auto) 88.3 H Lymph % (Auto) 4.4 L [place] % (Auto) 5.1 Eos % (Auto) 0.0 Baso % (Auto) 0.2 Lymph # (Auto) 0.38 L [place] # (Auto) 0.4 Eos # (Auto) 0.0 Baso # (Auto) 0.0 Abs Immat Gran (auto) 0.17 H Absolute Neuts (auto) 7.7 H Absolute Nucleated RBC 0.000 Nucleated RBC % 0.0 PT 14.1 INR 1.1 APTT 25.7 Sodium 126 L Potassium 4.8 Chloride 95 L Carbon Dioxide 26 Anion Gap 5 BUN 24 H Creatinine 0.88 Estim Creat Clear Calc 50 Estimated GFR > 60 Glucose 125 H Lactic Acid Calcium 8.7 Total Bilirubin 0.7 AST 28 ALT 34 Alkaline Phosphatase 107 C-Reactive Protein 1.8 H Total Protein 6.5 Albumin 3.5 Urine Color Yellow Urine Appearance Clear Urine pH 8.0 Ur Specific [place] 1.016 Urine Protein Trace Urine Glucose (UA) Negative Urine Ketones Negative Ur Blood (Man) Non-hemolyzed trace Urine Nitrate Negative Urine Bilirubin Negative Urine Urobilinogen 0.2 Leukocyte Esterase Rfl Negative Urine RBC 11-20 H Urine WBC 0-5 Ur Squamous Epith Cells None seen Urine Bacteria None seen Urine Casts 0-2 Influenza A (RT-PCR) Negative Influenza B (RT-PCR) Negative RSV (RT-PCR) Negative SARS-CoV-2 RNA (RT-PCR) Positive A 04/28/25 04/29/25 17:48 04:34 WBC 7.7 RBC 4.18 L Hgb 13.0 L Hct 38.2 L MCV 91.4 MCH 31.1 MCHC 34.0 RDW 13.2 Plt Count 289 MPV 8.9 Immature Gran % (Auto) 1.6 H Neut % (Auto) 77.6 H Lymph % (Auto) 7.7 L [place] % (Auto) 12.5 H Eos % (Auto) 0.3 Baso % (Auto) 0.3 Lymph # (Auto) 0.59 L [place] # (Auto) 1.0 H Eos # (Auto) 0.0 Baso # (Auto) 0.0 Abs Immat Gran (auto) 0.12 H Absolute Neuts (auto) 6.0 Absolute Nucleated RBC 0.000 Nucleated RBC % 0.0 PT INR APTT Sodium 125 L Potassium 3.8 Chloride 93 L Carbon Dioxide 23 Anion Gap 9 BUN 26 H Creatinine 0.95 Estim Creat Clear Calc 44 Estimated GFR > 60 Glucose 110 Lactic Acid 1.1 Calcium 8.5 Total Bilirubin AST ALT Alkaline Phosphatase C-Reactive Protein Total Protein Albumin Urine Color Urine Appearance Urine pH Ur Specific [place] Urine Protein Urine Glucose (UA) Urine Ketones Ur Blood (Man) Urine Nitrate Urine Bilirubin Urine Urobilinogen Leukocyte Esterase Rfl Urine RBC Urine WBC Ur Squamous Epith Cells Urine Bacteria Urine Casts Influenza A (RT-PCR) Influenza B (RT-PCR) RSV (RT-PCR) SARS-CoV-2 RNA (RT-PCR) Quality VTE Prophylaxis VTE prophylaxis: pharmacologic ordered
[2025-04-29] MEDS: FAMOTIDINE 20 MG TABLET PO (20:10)
[2025-04-29] MEDS: AZITHROMYCIN IV 500 MG in SODIUM CHLORIDE 0.9% IV 250 ML IVPB (20:10)
[2025-04-29] MEDS: TAMSULOSIN HCL 0.4 MG CAPSULE 0.8 MG PO (20:10)
[2025-04-29] MEDS: MELATONIN 3 MG TABLET PO (20:11)
[2025-04-29] MEDS: REMDESIVIR 100 MG/NS 250 ML 100 MG/250 ML BAG 250 MG IVPB (21:33)
[2025-04-30] VITALS (11 sets, daily range): BP systolic 116–119; BP diastolic 52–57; PULSE 70–99; RESP 16–20; TEMP 36.5–36.6; O2SAT 93–94
--- NOTE | 2025-04-30 04:28 | PC.NURSE ---
Lab came to draw pt labs and pt was swinging arms and legs refusing to let lab draw unable to redirect at this time. left pt alone to calm down labs refused at this time.
[2025-04-30] MEDS: CEFEPIME 2 GM in SODIUM CHLORIDE 0.9% IV 50 ML 100 ML IVPB ×2 (05:24→17:03)
[2025-04-30 06:15] LABS: Hematocrit 36.7 % (42.0-52.0); Hemoglobin 12.5 g/dL (14.0-18.0); Immature Granulocyte Percent A 1.4 % (0-0.5); Lymphocytes Absolute Auto 0.74 K/mm3 (0.9-3.2); Mean Corpuscular HGB Conc 34.1 g/dl (32-36); Mean Corpuscular Hemoglobin 31.3 pg (26-34); Mean Corpuscular Volume 91.8 fl (80-100); Nucleated Red Blood Cells Absolute Auto 0.000 K/mm3 (0.0-0.012); Nucleated Red Blood Cells Perc 0.0 % (0.0-0.2); Platelet Count Result 241 k/mm3 (150-375); Red Blood Count 4.00 M/mm3 (4.6-6.20); White Blood Count 5.1 K/mm3 (4.5-10.0)
[2025-04-30 06:36] LABS: Alanine Aminotransferase 30 U/L (6-50); Albumin Level 3.0 g/dL (3.5-5.1); Alkaline Phosphatase 85 U/L (38-126); Anion Gap 6 mmol/L (4-12); Aspartate Amino Transferase 31 U/L (17-59); Bilirubin,Total 0.6 mg/dL (0.2-1.3); Blood Urea Nitrogen 33 mg/dL (9-20); Calcium 8.2 mg/dL (8.4-10.2); Carbon Dioxide 25 mmol/L (22-30); Chloride 98 mmol/L (98-107); Estimated CRCL calculation 46 ml/min; Estimated Glomerular Filt Rate > 60; Glucose 107 mg/dL (65-110); Potassium 3.9 mmol/L (3.4-5.0); Sodium 129 mmol/L (137-145); Total Protein 5.9 g/dL (6.3-8.2)
--- NOTE | 2025-04-30 06:42 | PC.NURSE ---
labs calmed down and labs were able to get drawn this am.
[2025-04-30 07:01] LABS: INR 1.1; Prothrombin Time 13.8 Seconds (11.1-14.7)
[2025-04-30] MEDS: FLUTICASONE/SALMETEROL 115-21 MCG INHALER 1 PUFF 2 PUFF INHALATION ×2 (07:53→21:05)
--- NOTE | 2025-04-30 07:53 | P.PNIM_ITS ---
Progress Note: A&P Assessment and Plan (1) AMS (altered mental status): Qualifiers: Altered mental status type: disorientation Qualified Code(s): R41.0 - Disorientation, unspecified Code(s): R41.82 - Altered mental status, unspecified Status: Acute Assessment and Plan: Patient's reported baseline is A&O x3. Reviewed previous notes from most recent admission, family reported that the patient requires you to speak slowly and use simple terms. Days and years blend together. Recently started to get family members confused and more agitated. Most recently A&O x1 on 04/26 [address] provider [address] Head CT completed in the ED on 04/28 which showed no acute findings, chronic findings including probable chronic ischemic white matter changes and cerebral atrophy appropriate for patient's age. Patient tested positive for COVID upon admission on 04/28 which is likely contributing to patient's wor sening confusion. Imaging also concerning for unresolved pneumonia. The patient was also noted to have hyponatremia during his recent stay and was discharged home with a sodium of 131, returning today with a sodium of 126. * head CT unremarkable on 04/28 * tested positive for COVID on 04/28, likely contributing to patient's current alteration * hyponatremia noted during most recent admission, discharged with a sodium of 131. Now 126, could also be contributing. Continue sodium tablets. * Na 129 today, continue NaCl tabs * Urine osm WDL 04/21 & serum osm low 04/21, redrawn 04/26, pending * Brain MRI pending * Reconsult neurology * Blood cultures pending * PT/OT - recommend SNF (2) COVID: Code(s): U07.1 - COVID-19 Status: Acute Assessment and Plan: Symptom onset unclear. Patient tested positive for COVID on 04/28. Was previously tested on 04/15 which was negative. Some concern for hypoxia noted by the patient's facility, however no hypoxia has been recorded since his arrival in the emergency department. * tested positive for COVID on 04/28 * start Remdesivir 200 mg IVPB x1 then 100 mg x4 for 5 total doses. * no current indication for steroids as the patient is not currently hypoxic * anticoagulation: prophylactic heparin, therapeutic if elevated d-dimer * heparin subQ as prophylaxis * supportive care: Tylenol p.r.n., Tessalon Perles p.r.n., Mucinex [facility], DuoNehernan p.r.n. * monitor VS, O2, and daily labs * Remains off O2 supplemenation (3) Bronchopneumonia: Code(s): J18.0 - Bronchopneumonia, unspecified organism Status: Acute Assessment and Plan: Patient showed probable viral pneumonitis on CXR from 04/24. CXR repeated on 04/26 which showed bilateral pneumonia, discharged home on Levaquin yesterday (04/27). Chest CT (04/28) showed bilateral probable bronchopneumonia superimposed on chronic lung disease. Patient tested positive for COVID on 04/28. * started on azithromycin and cefepime on 04/28, hold Levaquin course that was prescribed to him at discharge * supportive care * MRSA PCR negative on 04/27/2025 (4) Hyponatremia: Code(s): E87.1 - Hypo-osmolality and hyponatremia Status: Acute Assessment and Plan: Sodium 131 on upon discharge on 04/27, repeat today was 126. May be contributing to patient's current confusion superimposed on his pre-existing dementia. * continue NaCl 1G b.i.d. * exchange heart healthy diet for regular diet to increased sodium intake * patient recently diagnosed with hyperthyroidism, initiated on treatment during his most recent admission * will forego hyponatremia workup at this time as he recently had 1 completed * previously trialed on IV fluids which improved his sodium, however he developed tachypnea crackles and required Lasix. Will hold off on fluids at this time. * Urine osm WDL 04/21 & serum osm low 04/21, redrawn 04/26, pending * 04/30: 129 (5) Diastolic CHF: Qualifiers: Heart failure chronicity: chronic Qualified Code(s): I50.32 - Chronic diastolic (congestive) heart failure Code(s): I50.30 - Unspecified diastolic (congestive) heart failure Status: Chronic Assessment and Plan: No evidence of pulmonary edema on chest CT. Patient does have 2+ pitting edema to the bilateral lower extremities. During his most recent admission he received IV fluids due to hyponatremia and developed crackles on exam which required IV Lasix. Given the significance of his bilateral lower extremity edema, will give Lasix 40 mg IV once. Will need reassessment and close monitoring of his renal function/sodium levels. * Lasix 40 mg x 1 * monitor I&Os and daily weights * monitor renal function and sodium level * BLE edema trace (6) COPD (chronic obstructive pulmonary disease): Qualifiers: COPD type: unspecified COPD Qualified Code(s): J44.9 - Chronic obstructive pulmonary disease, unspecified Code(s): J44.9 - Chronic obstructive pulmonary disease, unspecified Status: Chronic Assessment and Plan: No current wheezing on exam. No current concern for exacerbation. * continue home medications (7) Benign prostatic hyperplasia: Qualifiers: Lower urinary tract symptom detail: unspecified Lower urinary tract symptom presence: symptoms present Qualified Code(s): N40.1 - Benign prostatic hyperplasia with lower urinary tract symptoms Code(s): N40.0 - Benign prostatic hyperplasia without lower urinary tract symptoms Status: Chronic Assessment and Plan: History of BPH with normal PSA. Recently started on tamsulosin on 04/18, increased to 0.8 mg prior to recent discharge. Patient also started on dutasteride. Referred to urology at discharge on 04/26. - bladder scan prn - continue Flomax and dutasteride (8) Hypertension: Qualifiers: Hypertension type: primary hypertension Qualified Code(s): I10 - Essential (primary) hypertension Code(s): I10 - Essential (primary) hypertension Status: Chronic Assessment and Plan: - chronic, currently for , stable. - continue home medications: Losartan, amlodipine - monitor (9) Hyperthyroidism without thyroid nodule: Code(s): E05.90 - Thyrotoxicosis, unspecified without thyrotoxic crisis or storm Status: Chronic Assessment and Plan: Recent diagnosis of hypothyroidism during his most recent admission. 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 Recently more agitated, attributed to history of dementia and recent illnesses. - continue buspirone (11) Hyperlipidemia: Qualifiers: Hyperlipidemia type: unspecified Qualified Code(s): E78.5 - Hyperlipidemia, unspecified Code(s): E78.5 - Hyperlipidemia, unspecified Status: Chronic Assessment and Plan: - continue atorvastatin (12) Atrial fibrillation: Code(s): I48.91 - Unspecified atrial fibrillation Status: Chronic Assessment and Plan: RVR per RN this AM. To the bedside, bpm 100's-140's, pt sitting up eating breakfast. -Given AM dose of propranolol 10mg for hyperthyroid, upon re-examination, pt in NSR TELE 79bpm -Continue TELE (13) Acid reflux: Code(s): K21.9 - Gastro-esophageal reflux disease without esophagitis Status: Acute Assessment and Plan: Pt reports burning in his upper abd -Pepcid ordered today Plan Diet: Regular GI Prophylaxis: N/a DVT Prophylaxis: Heparin subQ IV fluids: None Lines/Tubes: Peripheral IV Code Status: DNR Subjective Date/time seen: 04/30/25 07:53 Interval history: 89 y/o M with PMH of pSVT, PE, PUD, AFib, PVD, COPD, BPH, anemia, anxiety/depression, HLD, and dementia presents here with altered mental status and possible hypoxia. 04/30/2025 Patient sitting comfortably at bedside during examination. Remains A&O x1, with a baseline of A&O x3. O2 saturation appropriate on room air. Will get Brain MRI given continued AMS. PT/OT recommending SNF. Review of Systems Review of Systems: All systems reviewed & are unremarkable except as noted in HPI and below (Limited, disoriented) Exam Const: General: comfortable and no acute distress Other: , male, elderly, nontoxic appearance HENMT: Face/Nose/Sinus: Normal nares present Mouth: Yes moist mucous membranes Eyes: General: appearance normal, both eyes and all related structures Sclera: sclerae normal Pupils: Equal, round and reactive pupils present E OM: EOMs intact bilaterally Resp: Effort & Inspection: normal respiratory effort Auscultation: clear to auscultation bilaterally Cardio: Rate: regular rate Rhythm: regular rhythm Other: S1-S2 present without murmur, rub, ectopy GI: Other: Abdomen soft, nondistended, nontender. Normoactive bowel sounds in all quadrants. Skin: General skin exam: normal color and no rashes or lesions noted Wounds: no wounds Neuro: Cranial nerves: Yes Equal, round and reactive pupils present Speech: normal speech Motor exam (neuro): 5/5 motor strength present throughout Sensory Exam: normal sensation Other: A&O x1 Extrem: Other: trace edema to bilateral lower extremities, symmetric Psych: Mental Status: mental status grossly normal Affect: normal affect Other: Poor insight and judgment, very pleasant. Objective Data Vital Signs Vital Signs: Vital Signs - 24 hr 04/29/25 08:00 04/29/25 08:00 04/29/25 08:03 Temperature Pulse Rate 122 H 149 H Respiratory Rate Blood Pressure Pulse Oximetry Oxygen Delivery Room Air 04/29/25 08:06 04/29/25 08:06 04/29/25 12:00 Temperature Pulse Rate 115 H 115 H 73 Respiratory Rate 20 20 Blood Pressure Pulse Oximetry 94 Oxygen Delivery Room Air 04/29/25 14:00 04/29/25 16:00 04/29/25 17:24 Temperature 97.6 F Pulse Rate 70 82 97 Respiratory Rate 19 Blood Pressure 138/60 Pulse Oximetry 94 Oxygen Delivery 04/29/25 20:00 04/29/25 20:26 04/29/25 21:20 Temperature 98.3 F Pulse Rate 77 91 72 Respiratory Rate 18 16 Blood Pressure 105/51 L Pulse Oximetry 94 Oxygen Delivery 04/30/25 00:00 04/30/25 04:00 Temperature Pulse Rate 71 72 Respiratory Rate Blood Pressure Pulse Oximetry Oxygen Delivery Intake/Output Intake/Output: Intake & Output 04/27/25 04/28/25 04/29/25 04/30/25 23:59 23:59 23:59 23:59 Intake Total 300 1060 120 Output Total 150 2000 Balance 150 -940 120 Meds/Results Medications: Active Medications Generic Name Dose Route Start Last Admin Trade Name Freq PRN Reason Stop Dose Admin Acetaminophen 650 mg 04/28/25 18:50 04/29/25 08:04 Acetaminophen 325 Mg Tablet PO 650 mg Q4H PRN Administration Mild Pain (1-3) or Fever Albuterol 2.5 mg 04/28/25 21:15 Albuterol Sulfate Neb 2.5 Mg/3 Ml Inh INHALATION Q6H PRN shortness of breath or wheezing Albuterol/Ipratropium 3 ml 04/28/25 18:50 Ipratropium 0.5 Mg/Albuterol Sulfate 2.5 Mg (Base) Ampul.Neb 3 Ml INHALATION Q6H PRN Shortness Of Breath Or Wheezing Amlodipine Besylate 5 mg 04/29/25 09:00 04/29/25 08:04 Amlodipine Besylate 5 Mg Tablet PO 5 mg DAILY CONNIE Administration Aspirin 81 mg 04/29/25 09:00 04/29/25 08:03 Aspirin 81 Mg Enteric Tablet PO 81 mg DAILY CONNIE Administration Atorvastatin Calcium 20 mg 04/29/25 09:00 04/29/25 08:04 Atorvastatin 20 Mg Tablet PO 20 mg DAILY CONNIE Administration Benzonatate 100 mg 04/28/25 18:50 04/29/25 08:03 Benzonatate 100 Mg Capsule PO 100 mg TID PRN Administration Cough Bisacodyl 5 mg 04/28/25 18:50 Bisacodyl 5 Mg Tablet Ec PO DAILY PRN Constipation Buspirone HCl 5 mg 04/28/25 21:00 04/29/25 20:10 Buspirone Hcl 5 Mg Tablet PO 5 mg Q12HR CONNIE Administration Docusate Sodium 100 mg 04/29/25 09:00 04/29/25 17:24 Docusate Sodium 100 Mg Capsule PO 100 mg BID CONNIE Administration Famotidine 20 mg 04/29/25 15:15 04/29/25 20:10 Famotidine 20 Mg Tablet PO 20 mg Q12HR CONNIE Administration Fluticasone Propionate 1 spray 04/29/25 09:00 04/29/25 17:25 Fluticasone Propionate 0.05% Na Spr 16 Gm Btl (*Bkc) NASAL 1 spray BID CONNIE Administration Guaifenesin 600 mg 04/28/25 21:00 04/29/25 20:11 Guaifenesin 12 Hr 600 Mg Tabcr PO 600 mg Q12HR CONNIE Administration Heparin Sodium (Porcine) 5,000 units 04/28/25 21:00 04/29/25 20:17 Heparin Sodium 5,000 Units/Ml Vial SUB-Q 5,000 units Q12HR CONNIE Administration Cefepime HCl 2 gm/ Sodium 50 mls @ 100 mls/hr 04/29/25 06:00 04/30/25 05:24 Chloride IVPB 100 mls/hr Q12H CONNIE Administration Azithromycin 500 mg/ Sodium 250 mls @ 250 mls/hr 04/28/25 20:00 04/29/25 20:10 Chloride IVPB 250 mls/hr Q24H CONNIE Administration Remdesivir 100 mg in 250 mls @ 250 mls/hr 04/29/25 22:00 04/29/25 21:33 IVPB 05/02/25 22:59 250 mls/hr Q24H CONNIE Administration Losartan Potassium 50 mg 04/29/25 09:00 04/29/25 08:04 Losartan Potassium 50 Mg Tablet PO 50 mg DAILY CONNIE Administration Melatonin 3 mg 04/28/25 21:00 04/29/25 20:11 Melatonin 3 Mg Tablet PO 3 mg HS CONNIE Administration Methimazole 5 mg 04/29/25 09:00 04/29/25 08:04 Methimazole 5 Mg Tab PO 5 mg DAILY CONNIE Administration Pantoprazole Sodium 40 mg 04/29/25 09:00 04/29/25 08:03 Pantoprazole 40 Mg Tablet PO 40 mg QAM CONNIE Administration Polyethylene Glycol 17 gm 04/29/25 09:00 04/29/25 08:05 Polyethylene Glycol 3350 17 Gm Powd.Pack PO Not Given QAM CONNIE Prednisone 10 mg 04/30/25 09:00 Prednisone 10 Mg Tablet PO 05/02/25 09:01 DAILY CONNIE Prednisone 5 mg 05/03/25 09:00 Prednisone 5 Mg Tablet PO 05/05/25 09:01 DAILY CONNIE Propranolol HCl 10 mg 04/28/25 21:20 04/29/25 17:24 Propranolol Hcl 10 Mg Tablet PO 10 mg BID CONNIE Administration Fluticasone/Salmeterol 2 puff 04/29/25 08:00 04/30/25 07:53 Fluticasone/Salmeterol 115-21 Mcg Inhaler 1 Puff INHALATION 2 puff Q12HRT CONNIE Administration Sodium Chloride 1 gm 04/29/25 09:00 04/29/25 17:24 Sodium Chloride 1 Gm Tablet PO 05/05/25 09:01 1 gm BID CONNIE Administration Tamsulosin HCl 0.8 mg 04/28/25 21:00 04/29/25 20:10 Tamsulosin Hcl 0.4 Mg Capsule PO 0.8 mg HS CONNIE Administration Radiology Results: ITS Impressions Head CT 04/28/25 16:49 IMPRESSION: 1. No acute intracranial hemorrhage. No mass effect. 2. Probable chronic ischemic white matter change. 3. Cerebral atrophy appropriate for the patient's age. If symptoms persist or worsen, consider a short-term follow-up study or additional imaging for further assessment. Chest CT 04/28/25 16:55 IMPRESSION: Bilateral probable bronchopneumonia superimposed on chronic lung disease. There are micronodules which are probably infectious, underlying neoplasm is not excluded. Follow-up after treatment is recommended to assess improvement Labs Labs: Laboratory Results - last 24 hr 04/30/25 04/30/25 06:05 06:43 WBC 5.1 RBC 4.00 L Hgb 12.5 L Hct 36.7 L MCV 91.8 MCH 31.3 MCHC 34.1 RDW 13.3 Plt Count 241 MPV 8.6 Immature Gran % (Auto) 1.4 H Neut % (Auto) 70.1 Lymph % (Auto) 14.4 L [place] % (Auto) 13.3 H Eos % (Auto) 0.4 Baso % (Auto) 0.4 Lymph # (Auto) 0.74 L [place] # (Auto) 0.7 H Eos # (Auto) 0.0 Baso # (Auto) 0.0 Abs Immat Gran (auto) 0.07 H Absolute Neuts (auto) 3.6 Absolute Nucleated RBC 0.000 Nucleated RBC % 0.0 PT 13.8 INR 1.1 Sodium 129 L Potassium 3.9 Chloride 98 Carbon Dioxide 25 Anion Gap 6 BUN 33 H Creatinine 0.90 Estim Creat Clear Calc 46 Estimated GFR > 60 Glucose 107 Calcium 8.2 L Total Bilirubin 0.6 Direct Bilirubin 0.0 AST 31 ALT 30 Alkaline Phosphatase 85 Total Protein 5.9 L Albumin 3.0 L Quality VTE Prophylaxis VTE prophylaxis: pharmacologic ordered
[2025-04-30] MEDS: PANTOPRAZOLE 40 MG TABLET PO (09:04)
[2025-04-30] MEDS: SODIUM CHLORIDE 1 GM TABLET PO ×2 (09:04→16:57)
[2025-04-30] MEDS: ASPIRIN 81 MG ENTERIC TABLET PO (09:04)
[2025-04-30] MEDS: ACETAMINOPHEN 325 MG TABLET 650 MG PO (09:04)
[2025-04-30] MEDS: FAMOTIDINE 20 MG TABLET PO ×2 (09:05→20:36)
[2025-04-30] MEDS: LOSARTAN POTASSIUM 50 MG TABLET PO (09:05)
[2025-04-30] MEDS: PROPRANOLOL HCL 10 MG TABLET PO ×2 (09:05→16:57)
[2025-04-30] MEDS: BENZONATATE 100 MG CAPSULE PO (09:05)
[2025-04-30] MEDS: guaiFENesin 12 HR 600 MG TABCR PO ×2 (09:05→20:36)
[2025-04-30] MEDS: DOCUSATE SODIUM 100 MG CAPSULE PO ×2 (09:05→16:57)
[2025-04-30] MEDS: ATORVASTATIN 20 MG TABLET PO (09:05)
[2025-04-30] MEDS: FLUTICASONE PROPIONATE 0.05% NA SPR 16 GM BTL (*BKC) 1 SPRAY NASAL ×2 (09:06→16:57)
--- NOTE | 2025-04-30 10:55 | WPDCDIQUERY2 ---
CDI Query Clarification Request Please clarify the underlying possible/probable/suspected cause for the altered mental status in the progress notes: ? Encephalopathy (metabolic, COVID, hepatic, hypoxic, uremic, Wernicke, other) ? Neurologic condition (CVA/TIA/NPH/seizure) ? Electrolyte/metabolic imbalance/dehydration ? Infectious process (i.e. meningitis/encephalitis) ? Psychiatric condition ? Respiratory condition ? Dementia ? Other, please specify ? Unknown/unable to determine Assessment and Plan (1) AMS (altered mental status): Qualifiers: Altered mental status type: disorientation Qualified Code(s): R41.0 - Disorientation, unspecified Code(s): R41.82 - Altered mental status, unspecified Status: Acute Assessment and Plan: Patient's reported baseline is A&O x3. Reviewed previous notes from most recent admission, family reported that the patient requires you to speak slowly and use simple terms. Days and years blend together. Recently started to get family members confused and more agitated. Most recently A&O x1 on 04/26 per provider note. Head CT completed in the ED on 04/28 which showed no acute findings, chronic findings including probable chronic ischemic white matter changes and cerebral atrophy appropriate for patient's age. Patient tested positive for COVID upon admission on 04/28 which is likely contributing to patient's worsening confusion. Imaging also concerning for unresolved pneumonia. The patient was also noted to have hyponatremia during his recent stay and was discharged home with a sodium of 131, returning today with a sodium of 126. - head CT unremarkable on 04/28 - tested positive for COVID on 04/28, likely contributing to patient's current alteration - hyponatremia noted during most recent admission, discharged with a sodium of 131. Now 126, could also be contributing. Continue sodium tablets. 04/29: -Na 125 today, continue NaCl tabs -Urine osm WDL 04/21 & serum osm low 04/21, redrawn 04/26, pending (2) COVID: Code(s): U07.1 - COVID-19 Status: Acute Assessment and Plan: Symptom onset unclear. Patient tested positive for COVID on 04/28. Was previously tested on 04/15 which was negative. Some concern for hypoxia noted by the patient's facility, however no hypoxia has been recorded since his arrival in the emergency department. - tested positive for COVID on 04/28 - start Remdesivir 200 mg IVPB x1 then 100 mg x4 for 5 total doses. - no current indication for steroids as the patient is not currently hypoxic anticoagulation: prophylactic heparin, therapeutic if elevated d-dimer - heparin subQ as prophylaxis - supportive care: Tylenol p.r.n., Tessalon Perles p.r.n., Mucinex miguelina, DuoNebs p.r.n. - monitor VS, O2, and daily labs (3) Bronchopneumonia: Code(s): J18.0 - Bronchopneumonia, unspecified organism Status: Acute Assessment and Plan: Patient showed probable viral pneumonitis on CXR from 04/24. CXR repeated on 04/26 which showed bilateral pneumonia, discharged home on Levaquin yesterday (04/27). Chest CT (04/28) showed bilateral probable bronchopneumonia superimposed on chronic lung disease. Patient tested positive for COVID on 04/28. - started on azithromycin and cefepime on 04/28, hold Levaquin course that was prescribed to him at discharge - supportive care - MRSA PCR negative on 04/27/2025 (4) Hyponatremia: Code(s): E87.1 - Hypo-osmolality and hyponatremia Status: Acute Assessment and Plan: Sodium 131 on upon discharge on 04/27, repeat today was 126. May be contributing to patient's current confusion superimposed on his pre-existing dementia. - continue NaCl 1G b.i.d. - exchange heart healthy diet for regular diet to increased sodium intake - patient recently diagnosed with hyperthyroidism, initiated on treatment during his most recent admission - will forego hyponatremia workup at this time as he recently had 1 completed - previously trialed on IV fluids which improved his sodium, however he developed tachypnea crackles and required Lasix. Will hold off on fluids at this time. -Na 125 today, continue NaCl tabs -Urine osm WDL 04/21 & serum osm low 04/21, redrawn 04/26, pending (5) Diastolic CHF: Qualifiers: Heart failure chronicity: chronic Qualified Code(s): I50.32 - Chronic diastolic (congestive) heart failure Code(s): I50.30 - Unspecified diastolic (congestive) heart failure Status: Chronic Assessment and Plan: No evidence of pulmonary edema on chest CT. Patient does have 2+ pitting edema to the bilateral lower extremities. During his most recent admission he received IV fluids due to hyponatremia and developed crackles on exam which required IV Lasix. Given the significance of his bilateral lower extremity edema, will give Lasix 40 mg IV once. Will need reassessment and close monitoring of his renal function/sodium levels. - Lasix 40 mg x 1 - monitor I&Os and daily weights - monitor renal function and sodium level 04/29: BLE edema trace (6) COPD (chronic obstructive pulmonary disease): Qualifiers: COPD type: unspecified COPD Qualified Code(s): J44.9 - Chronic obstructive pulmonary disease, unspecified Code(s): J44.9 - Chronic obstructive pulmonary disease, unspecified Status: Chronic Assessment and Plan: No current wheezing on exam. No current concern for exacerbation. - continue home medications <Davina Verdin RN - Last Filed: 04/30/25 10:57> Clarified Diagnosis Clarified Diagnosis: AMS likely multifactorial - possibly due to acute encephalopathy but possibly some underlying Dementia. Also has diagnosis of COVID, so infectious as well <Sukhjinder Zheng PA-C - Last Filed: 04/30/25 12:50>
[2025-04-30 13:20] LABS: Ammonia < 9 umol/L (9-30)
[2025-04-30] MEDS: AZITHROMYCIN IV 500 MG in SODIUM CHLORIDE 0.9% IV 250 ML IVPB (19:30)
[2025-04-30] MEDS: MELATONIN 3 MG TABLET PO (20:36)
[2025-04-30] MEDS: TAMSULOSIN HCL 0.4 MG CAPSULE 0.8 MG PO (20:36)
[2025-04-30] MEDS: REMDESIVIR 100 MG/NS 250 ML 100 MG/250 ML BAG 250 MG IVPB (21:17)
[2025-05-01] VITALS (9 sets, daily range): BP systolic 119–168; BP diastolic 63–72; PULSE 67–84; RESP 16–18; TEMP 36.2–36.4; O2SAT 91–95
[2025-05-01] MEDS: CEFEPIME 2 GM in SODIUM CHLORIDE 0.9% IV 50 ML 100 ML IVPB (05:22)
--- NOTE | 2025-05-01 07:12 | P.PNIM_ITS ---
Progress Note: A&P Assessment and Plan (1) AMS (altered mental status): Qualifiers: Altered mental status type: disorientation Qualified Code(s): R41.0 - Disorientation, unspecified Code(s): R41.82 - Altered mental status, unspecified Status: Acute Assessment and Plan: Patient's reported baseline is A&O x3. Reviewed previous notes from most recent admission, family reported that the patient requires you to speak slowly and use simple terms. Days and years blend together. Recently started to get family members confused and more agitated. Most recently A&O x1 on 04/[address] Head CT completed in the ED on 04/28 which showed no acute findings, chronic findings including probable chronic ischemic white matter changes and cerebral atrophy appropriate for patient's age. Patient tested positive for COVID upon admission on 04/28 which is likely contributing to patient's wor sening confusion. Imaging also concerning for unresolved pneumonia. The patient was also noted to have hyponatremia during his recent stay and was discharged home with a sodium of 131, returning today with a sodium of 126. * head CT unremarkable on 04/28 * tested positive for COVID on 04/28, likely contributing to patient's current alteration * hyponatremia noted during most recent admission, discharged with a sodium of 131. Now 126, could also be contributing. Continue sodium tablets. * Na 129 today, continue NaCl tabs * Urine osm WDL 04/21 & serum osm low 04/21, redrawn 04/26, pending * Reconsult neurology * Blood cultures preliminary result shows no growth * PT/OT - recommend SNF (2) COVID: Code(s): U07.1 - COVID-19 Status: Acute Assessment and Plan: Symptom onset unclear. Patient tested positive for COVID on 04/28. Was previously tested on 04/15 which was negative. Some concern for hypoxia noted by the patient's facility, however no hypoxia has been recorded since his arrival in the emergency department. * tested positive for COVID on 04/28 * start Remdesivir 200 mg IVPB x1 then 100 mg x4 for 5 total doses. * no current indication for steroids as the patient is not currently hypoxic * anticoagulation: prophylactic heparin, therapeutic if elevated d-dimer * heparin subQ as prophylaxis * supportive care: Tylenol p.r.n., Tessalon Perles p.r.n., Mucinex miguelina, DuoNebs p.r.n. * monitor VS, O2, and daily labs * Remains off O2 supplemenation (3) Bronchopneumonia: Code(s): J18.0 - Bronchopneumonia, unspecified organism Status: Acute Assessment and Plan: Patient showed probable viral pneumonitis on CXR from 04/24. CXR repeated on 04/26 which showed bilateral pneumonia, discharged home on Levaquin yesterday (04/27). Chest CT (04/28) showed bilateral probable bronchopneumonia superimposed on chronic lung disease. Patient tested positive for COVID on 04/28. * started on azithromycin and cefepime on 04/28, hold Levaquin course that was prescribed to him at discharge * supportive care * MRSA PCR negative on 04/27/2025 * Switched to oral Augmentin 875-125mg PO Q12hr and Azithro 500mg PO HS (4) Hyponatremia: Code(s): E87.1 - Hypo-osmolality and hyponatremia Status: Acute Assessment and Plan: Sodium 131 on upon discharge on 04/27, repeat today was 126. May be contributing to patient's current confusion superimposed on his pre-existing dementia. * continue NaCl 1G b.i.d. * exchange heart healthy diet for regular diet to increased sodium intake * patient recently diagnosed with hyperthyroidism, initiated on treatment during his most recent admission * will forego hyponatremia workup at this time as he recently had 1 completed * previously trialed on IV fluids which improved his sodium, however he developed tachypnea crackles and required Lasix. Will hold off on fluids at this time. * Urine osm WDL 04/21 & serum osm low 04/21, redrawn 04/26, pending * 05/01: 132 (5) Diastolic CHF: Qualifiers: Heart failure chronicity: chronic Qualified Code(s): I50.32 - Chronic diastolic (congestive) heart failure Code(s): I50.30 - Unspecified diastolic (congestive) heart failure Status: Chronic Assessment and Plan: No evidence of pulmonary edema on chest CT. Patient does have 2+ pitting edema to the bilateral lower extremities. During his most recent admission he received IV fluids due to hyponatremia and developed crackles on exam which required IV Lasix. Given the significance of his bilateral lower extremity edema, will give Lasix 40 mg IV once. Will need reassessment and close monitoring of his renal function/sodium levels. * Lasix 40 mg x 1 * monitor I&Os and daily weights * monitor renal function and sodium level * BLE edema trace (6) COPD (chronic obstructive pulmonary disease): Qualifiers: COPD type: unspecified COPD Qualified Code(s): J44.9 - Chronic obstructive pulmonary disease, unspecified Code(s): J44.9 - Chronic obstructive pulmonary disease, unspecified Status: Chronic Assessment and Plan: No current wheezing on exam. No current concern for exacerbation. * continue home medications (7) Benign prostatic hyperplasia: Qualifiers: Lower urinary tract symptom detail: unspecified Lower urinary tract symptom presence: symptoms present Qualified Code(s): N40.1 - Benign prostatic hyperplasia with lower urinary tract symptoms Code(s): N40.0 - Benign prostatic hyperplasia without lower urinary tract symptoms Status: Chronic Assessment and Plan: History of BPH with normal PSA. Recently started on tamsulosin on 04/18, increased to 0.8 mg prior to recent discharge. Patient also started on dutasteride. Referred to urology at discharge on 04/26. - bladder scan prn - continue Flomax and dutasteride (8) Hypertension: Qualifiers: Hypertension type: primary hypertension Qualified Code(s): I10 - Essential (primary) hypertension Code(s): I10 - Essential (primary) hypertension Status: Chronic Assessment and Plan: - chronic, currently for 147/, stable. - continue home medications: Losartan, amlodipine - monitor (9) Hyperthyroidism without thyroid nodule: Code(s): E05.90 - Thyrotoxicosis, unspecified without thyrotoxic crisis or storm Status: Chronic Assessment and Plan: Recent diagnosis of hypothyroidism during his most recent admission. - previous Labs: 04/19 - TSH <0.015, T4 2.33, free T3 2.92 04/24 - TSH 0.053, T4 2.48, free T3 2.6 - continue methimazole and propranolol - will need f/u outpatient with an training facilitator (10) Depression: Qualifiers: Depression Type: unspecified Qualified Code(s): F32.A - Depression, unspecified Code(s): F32.A - Depression, unspecified Status: Chronic Assessment and Plan: History of depression and anxiety. Recently more agitated, attributed to history of dementia and recent illnesses. - continue buspirone (11) Hyperlipidemia: Qualifiers: Hyperlipidemia type: unspecified Qualified Code(s): E78.5 - Hyperlipidemia, unspecified Code(s): E78.5 - Hyperlipidemia, unspecified Status: Chronic Assessment and Plan: - continue atorvastatin (12) Atrial fibrillation: Code(s): I48.91 - Unspecified atrial fibrillation Status: Chronic Assessment and Plan: RVR per RN this AM. To the bedside, bpm 100's-140's, pt sitting up eating breakfast. -Given AM dose of propranolol 10mg for hyperthyroid, upon re-examination, pt in NSR TELE 79bpm -Continue TELE (13) Acid reflux: Code(s): K21.9 - Gastro-esophageal reflux disease without esophagitis Status: Acute Assessment and Plan: Pt reports burning in his upper abd -Pepcid ordered today Plan Diet: Regular GI Prophylaxis: N/a DVT Prophylaxis: Heparin subQ IV fluids: None Lines/Tubes: Peripheral IV Code Status: DNR Subjective Date/time seen: 05/01/25 07:12 Interval history: 89 y/o M with PMH of pSVT, PE, PUD, AFib, PVD, COPD, BPH, anemia, anxiety/depression, HLD, and dementia presents here with altered mental status and possible hypoxia. 05/01/2025 Patient sitting comfortably at bedside during examination. Accompanied by daughter. Had a long discussion with her regarding the patient's current status. Given the concurrent COVID infection, bronchopneumonia, hyponatremia, and likely underlying dementia, we can expect some alteration of baseline mentation status. He remains afebrile, without leukocytosis. Na increasing, up from 129 -> 132. Review of Systems Review of Systems: All systems reviewed & are unremarkable except as noted in HPI and below (Limited, disoriented) Exam Const: General: comfortable and no acute distress Other: , male, elderly, nontoxic appearance HENMT: Face/Nose/Sinus: Normal nares present Mouth: Yes moist mucous membranes Eyes: General: appearance normal, both eyes and all related structures Sclera: sclerae normal Pupils: Equal, round and reactive pupils present EOM: EOMs intact bilaterally Resp: Effort & Inspection: normal respiratory effort Auscultation: clear to auscultation bilaterally Cardio: Rate: regular rate Rhythm: regular rhythm Other: S1-S2 present without murmur, rub, ectopy GI: Other: Abdomen soft, nondistended, nontender. Normoactive bowel sounds in all quadrants. Skin: General skin exam: normal color and no rashes or lesions noted Wounds: no wounds Neuro: Cranial nerves: Yes Equal, round and reactive pupils present Speech: normal speech Motor exam (neuro): 5/5 motor strength present throughout Sensory Exam: normal sensation Other: A&O x1 Extrem: Other: trace edema to bilateral lower extremities, symmetric Psych: Mental Status: mental status grossly normal Affect: normal affect Other: Poor insight and judgment, very pleasant. Objective Data Vital Signs Vital Signs: Vital Signs - 24 hr 04/30/25 08:00 04/30/25 08:10 04/30/25 08:21 Temperature Pulse Rate 81 Respiratory Rate Blood Pressure Pulse Oximetry Oxygen Delivery Room Air Room Air Fraction of Inspired Oxygen 04/30/25 09:05 04/30/25 09:10 04/30/25 12:00 Temperature Pulse Rate 98 70 Respiratory Rate Blood Pressure Pulse Oximetry Oxygen Delivery Room Air Fraction of Inspired Oxygen 04/30/25 14:00 04/30/25 16:00 04/30/25 16:57 Temperature 97.9 F Pulse Rate 79 78 99 Respiratory Rate 18 Blood Pressure 116/57 L Pulse Oximetry 93 Oxygen Delivery Fraction of Inspired Oxygen 04/30/25 20:00 04/30/25 20:40 04/30/25 21:05 Temperature 97.7 F Pulse Rate 79 76 73 Respiratory Rate 16 Blood Pressure 119/52 L Pulse Oximetry 94 94 Oxygen Delivery Room Air Fraction of Inspired Oxygen 21 04/30/25 21:05 05/01/25 00:00 05/01/25 04:00 Temperature Pulse Rate 73 69 69 Respiratory Rate 20 Blood Pressure Pulse Oximetry Oxygen Delivery Fraction of Inspired Oxygen Intake/Output Intake/Output: Intake & Output 04/28/25 04/29/25 04/30/25 05/01/25 23:59 23:59 23:59 23:59 Intake Total 300 1560 1200 150 Output Total 150 2000 Balance 150 -440 1200 150 Meds/Results Medications: Active Medications Generic Name Dose Route Start Last Admin Trade Name Freq PRN Reason Stop Dose Admin Acetaminophen 650 mg 04/28/25 18:50 04/30/25 09:04 Acetaminophen 325 Mg Tablet PO 650 mg Q4H PRN Administration Mild Pain (1-3) or Fever Albuterol 2.5 mg 04/28/25 21:15 Albuterol Sulfate Neb 2.5 Mg/3 Ml Inh INHALATION Q6H PRN shortness of breath or wheezing Albuterol/Ipratropium 3 ml 04/28/25 18:50 Ipratropium 0.5 Mg/Albuterol Sulfate 2.5 Mg (Base) Ampul.Neb 3 Ml INHALATION Q6H PRN Shortness Of Breath Or Wheezing Amlodipine Besylate 5 mg 04/29/25 09:00 04/30/25 09:05 Amlodipine Besylate 5 Mg Tablet PO 5 mg DAILY MIGUELINA Administration Aspirin 81 mg 04/29/25 09:00 04/30/25 09:04 Aspirin 81 Mg Enteric Tablet PO 81 mg DAILY MIGUELINA Administration Atorvastatin Calcium 20 mg 04/29/25 09:00 04/30/25 09:05 Atorvastatin 20 Mg Tablet PO 20 mg DAILY MIGUELINA Administration Benzonatate 100 mg 04/28/25 18:50 04/30/25 09:05 Benzonatate 100 Mg Capsule PO 100 mg TID PRN Administration Cough Bisacodyl 5 mg 04/28/25 18:50 Bisacodyl 5 Mg Tablet Ec PO DAILY PRN Constipation Buspirone HCl 5 mg 04/28/25 21:00 04/30/25 20:38 Buspirone Hcl 5 Mg Tablet PO 5 mg Q12HR MIGUELINA Administration Docusate Sodium 100 mg 04/29/25 09:00 04/30/25 16:57 Docusate Sodium 100 Mg Capsule PO 100 mg BID MIGUELINA Administration Famotidine 20 mg 04/29/25 15:15 04/30/25 20:36 Famotidine 20 Mg Tablet PO 20 mg Q12HR MIGUELINA Administration Fluticasone Propionate 1 spray 04/29/25 09:00 04/30/25 16:57 Fluticasone Propionate 0.05% Na Spr 16 Gm Btl (*Bkc) NASAL 1 spray BID MIGUELINA Administration Guaifenesin 600 mg 04/28/25 21:00 04/30/25 20:36 Guaifenesin 12 Hr 600 Mg Tabcr PO 600 mg Q12HR MIGUELINA Administration Heparin Sodium (Porcine) 5,000 units 04/28/25 21:00 04/30/25 20:38 Heparin Sodium 5,000 Units/Ml Vial SUB-Q 5,000 units Q12HR MIGUELINA Administration Cefepime HCl 2 gm/ Sodium 50 mls @ 100 mls/hr 04/29/25 06:00 05/01/25 06:00 Chloride IVPB Infused Q12H MIGUELINA Infusion Azithromycin 500 mg/ Sodium 250 mls @ 250 mls/hr 04/28/25 20:00 04/30/25 20:46 Chloride IVPB Infused Q24H MIGUELINA Infusion Remdesivir 100 mg in 250 mls @ 250 mls/hr 04/29/25 22:00 04/30/25 22:15 IVPB 05/02/25 22:59 Infused Q24H MIGUELINA Infusion Losartan Potassium 50 mg 04/29/25 09:00 04/30/25 09:05 Losartan Potassium 50 Mg Tablet PO 50 mg DAILY MIGUELINA Administration Melatonin 3 mg 04/28/25 21:00 04/30/25 20:36 Melatonin 3 Mg Tablet PO 3 mg HS MIGUELINA Administration Methimazole 5 mg 04/29/25 09:00 04/30/25 09:05 Methimazole 5 Mg Tab PO 5 mg DAILY MIGUELINA Administration Pantoprazole Sodium 40 mg 04/29/25 09:00 04/30/25 09:04 Pantoprazole 40 Mg Tablet PO 40 mg QAM MIGUELINA Administration Polyethylene Glycol 17 gm 04/29/25 09:00 04/30/25 09:06 Polyethylene Glycol 3350 17 Gm Powd.Pack PO Not Given QAM MIGUELINA Prednisone 10 mg 04/30/25 09:00 04/30/25 09:04 Prednisone 10 Mg Tablet PO 05/02/25 09:01 10 mg DAILY MIGUELINA Administration Prednisone 5 mg 05/03/25 09:00 Prednisone 5 Mg Tablet PO 05/05/25 09:01 DAILY MIGUELINA Propranolol HCl 10 mg 04/28/25 21:20 04/30/25 16:57 Propranolol Hcl 10 Mg Tablet PO 10 mg BID MIGUELINA Administration Fluticasone/Salmeterol 2 puff 04/29/25 08:00 04/30/25 21:05 Fluticasone/Salmeterol 115-21 Mcg Inhaler 1 Puff INHALATION 2 puff Q12HRT MIGUELINA Administration Sodium Chloride 1 gm 04/29/25 09:00 04/30/25 16:57 Sodium Chloride 1 Gm Tablet PO 05/05/25 09:01 1 gm BID MIGUELINA Administration Tamsulosin HCl 0.8 mg 04/28/25 21:00 04/30/25 20:36 Tamsulosin Hcl 0.4 Mg Capsule PO 0.8 mg HS MIGUELINA Administration Radiology Results: ITS Impressions Head CT 04/28/25 16:49 IMPRESSION: 1. No acute intracranial hemorrhage. No mass effect. 2. Probable chronic ischemic white matter change. 3. Cerebral atrophy appropriate for the patient's age. If symptoms persist or worsen, consider a short-term follow-up study or additional imaging for further assessment. Chest CT 04/28/25 16:55 IMPRESSION: Bilateral probable bronchopneumonia superimposed on chronic lung disease. There are micronodules which are probably infectious, underlying neoplasm is not excluded. Follow-up after treatment is recommended to assess improvement Labs Labs: Laboratory Results - last 24 hr 04/30/25 13:07 Ammonia < 9 L Quality VTE Prophylaxis VTE prophylaxis: pharmacologic ordered
[2025-05-01 09:46] LABS: Alanine Aminotransferase 34 U/L (6-50); Albumin Level 3.2 g/dL (3.5-5.1); Alkaline Phosphatase 99 U/L (38-126); Anion Gap 5 mmol/L (4-12); Aspartate Amino Transferase 40 U/L (17-59); Bilirubin,Total 0.6 mg/dL (0.2-1.3); Blood Urea Nitrogen 33 mg/dL (9-20); Calcium 8.0 mg/dL (8.4-10.2); Carbon Dioxide 26 mmol/L (22-30); Chloride 101 mmol/L (98-107); Estimated CRCL calculation 48 ml/min; Estimated Glomerular Filt Rate > 60; Glucose 120 mg/dL (65-110); Potassium 3.6 mmol/L (3.4-5.0); Sodium 132 mmol/L (137-145); Total Protein 6.1 g/dL (6.3-8.2)
--- NOTE | 2025-05-01 09:56 | PCRCNOTE ---
Patient eating 1st check Rt was called to ED to assist with intubation
--- NOTE | 2025-05-01 10:06 | PC.NURSE ---
Sukhjinder DAY notified patient refused meds this am. Patient very confused today.
[2025-05-01 12:09] LABS: Hematocrit 37.5 % (42.0-52.0); Hemoglobin 12.4 g/dL (14.0-18.0); Immature Granulocyte Percent A 0.9 % (0-0.5); Lymphocytes Absolute Auto 0.56 K/mm3 (0.9-3.2); Mean Corpuscular HGB Conc 33.1 g/dl (32-36); Mean Corpuscular Hemoglobin 30.4 pg (26-34); Mean Corpuscular Volume 91.9 fl (80-100); Nucleated Red Blood Cells Absolute Auto 0.000 K/mm3 (0.0-0.012); Nucleated Red Blood Cells Perc 0.0 % (0.0-0.2); Platelet Count Result 268 k/mm3 (150-375); Red Blood Count 4.08 M/mm3 (4.6-6.20); White Blood Count 6.4 K/mm3 (4.5-10.0)
[2025-05-01] MEDS: LOSARTAN POTASSIUM 50 MG TABLET PO (15:26)
[2025-05-01] MEDS: ASPIRIN 81 MG ENTERIC TABLET PO (15:27)
[2025-05-01] MEDS: ATORVASTATIN 20 MG TABLET PO (15:27)
[2025-05-01] MEDS: PROPRANOLOL HCL 10 MG TABLET PO (15:28)
[2025-05-01] MEDS: DOCUSATE SODIUM 100 MG CAPSULE PO (15:28)
[2025-05-01] MEDS: SODIUM CHLORIDE 1 GM TABLET PO (15:28)
[2025-05-01] MEDS: FLUTICASONE PROPIONATE 0.05% NA SPR 16 GM BTL (*BKC) 1 SPRAY NASAL (15:29)
[2025-05-01] MEDS: guaiFENesin 12 HR 600 MG TABCR PO (22:09)
[2025-05-01] MEDS: TAMSULOSIN HCL 0.4 MG CAPSULE 0.8 MG PO (22:09)
[2025-05-01] MEDS: MELATONIN 3 MG TABLET PO (22:09)
[2025-05-01] MEDS: AZITHROMYCIN 500 MG TABLET PO (22:09)
[2025-05-01] MEDS: FAMOTIDINE 20 MG TABLET PO (22:10)
[2025-05-01] MEDS: REMDESIVIR 100 MG/NS 250 ML 100 MG/250 ML BAG 250 MG IVPB (22:10)
--- NOTE | 2025-05-01 22:50 | PCRCNOTE ---
This RT stopped by patient's room to administer mdi; there was a note on the door that read, Do not wake patient. Therefore, mdi was not given. 0800 will be next scheduled treatment.
[2025-05-02] VITALS (7 sets, daily range): BP systolic 145–159; BP diastolic 76–78; PULSE 67–80; RESP 14–20; TEMP 36.4–36.5; O2SAT 94–99
[2025-05-02 07:59] LABS: Hematocrit 36.5 % (42.0-52.0); Hemoglobin 12.0 g/dL (14.0-18.0); Immature Granulocyte Percent A 1.4 % (0-0.5); Lymphocytes Absolute Auto 0.65 K/mm3 (0.9-3.2); Mean Corpuscular HGB Conc 32.9 g/dl (32-36); Mean Corpuscular Hemoglobin 30.5 pg (26-34); Mean Corpuscular Volume 92.6 fl (80-100); Nucleated Red Blood Cells Absolute Auto 0.000 K/mm3 (0.0-0.012); Nucleated Red Blood Cells Perc 0.0 % (0.0-0.2); Platelet Count Result 208 k/mm3 (150-375); Red Blood Count 3.94 M/mm3 (4.6-6.20); White Blood Count 4.2 K/mm3 (4.5-10.0)
[2025-05-02 08:06] LABS: INR 1.1; Prothrombin Time 13.7 Seconds (11.1-14.7)
[2025-05-02 08:31] LABS: Alanine Aminotransferase 32 U/L (6-50); Albumin Level 3.0 g/dL (3.5-5.1); Alkaline Phosphatase 89 U/L (38-126); Anion Gap 6 mmol/L (4-12); Aspartate Amino Transferase 32 U/L (17-59); Bilirubin,Total 0.7 mg/dL (0.2-1.3); Blood Urea Nitrogen 29 mg/dL (9-20); Calcium 7.9 mg/dL (8.4-10.2); Carbon Dioxide 23 mmol/L (22-30); Chloride 99 mmol/L (98-107); Estimated CRCL calculation 59 ml/min; Estimated Glomerular Filt Rate > 60; Glucose 99 mg/dL (65-110); Potassium 3.5 mmol/L (3.4-5.0); Sodium 128 mmol/L (137-145); Total Protein 5.7 g/dL (6.3-8.2)
--- NOTE | 2025-05-02 09:11 | PC.NURSE ---
family request is to not wake pt if he is sleeping, pt was awake at aprox [phone] but is now back to sleeping, will heat breakfast tray and admin meds when he wakes
[2025-05-02] MEDS: SODIUM CHLORIDE 1 GM TABLET PO ×2 (10:35→17:21)
[2025-05-02] MEDS: ASPIRIN 81 MG ENTERIC TABLET PO (10:35)
[2025-05-02] MEDS: ATORVASTATIN 20 MG TABLET PO (10:35)
[2025-05-02] MEDS: DOCUSATE SODIUM 100 MG CAPSULE PO ×2 (10:35→17:21)
[2025-05-02] MEDS: PANTOPRAZOLE 40 MG TABLET PO (10:35)
[2025-05-02] MEDS: FAMOTIDINE 20 MG TABLET PO ×2 (10:35→21:24)
[2025-05-02] MEDS: guaiFENesin 12 HR 600 MG TABCR PO ×2 (10:36→21:24)
[2025-05-02] MEDS: LOSARTAN POTASSIUM 50 MG TABLET PO (10:36)
[2025-05-02] MEDS: PROPRANOLOL HCL 10 MG TABLET PO ×2 (10:36→17:21)
[2025-05-02] MEDS: FLUTICASONE/SALMETEROL 115-21 MCG INHALER 1 PUFF 2 PUFF INHALATION (10:37)
[2025-05-02] MEDS: FLUTICASONE PROPIONATE 0.05% NA SPR 16 GM BTL (*BKC) 1 SPRAY NASAL (10:38)
--- NOTE | 2025-05-02 14:14 | P.PNIM_ITS ---
Progress Note: A&P Assessment and Plan (1) AMS (altered mental status): Qualifiers: Altered mental status type: disorientation Qualified Code(s): R41.0 - Disorientation, unspecified Code(s): R41.82 - Altered mental status, unspecified Status: Acute Assessment and Plan: Patient's reported baseline is A&O x3. Reviewed previous notes from most recent admission, family reported that the patient requires you to speak slowly and use simple terms. Days and years blend together. Recently started to get family members confused and more agitated. Most recently A&O x1 on 04/[address] Head CT completed in the ED on 04/28 which showed no acute findings, chronic findings including probable chronic ischemic white matter changes and cerebral atrophy appropriate for patient's age. Patient tested positive for COVID upon admission on 04/28 which is likely contributing to patient's wor sening confusion. Imaging also concerning for unresolved pneumonia. The patient was also noted to have hyponatremia during his recent stay and was discharged home with a sodium of 131, returning today with a sodium of 126. * head CT unremarkable on 04/28 * tested positive for COVID on 04/28, likely contributing to patient's current alteration * hyponatremia noted during most recent admission, discharged with a sodium of 131. Now 126, could also be contributing. Continue sodium tablets. * Na 129 today, continue NaCl tabs * Urine osm WDL 04/21 & serum osm low 04/21, redrawn 04/26 - serum continues to be low at 271, higher than prior. urine osmolality WDL * Reconsult neurology * Blood cultures preliminary result shows no growth * PT/OT - recommend SNF (2) COVID: Code(s): U07.1 - COVID-19 Status: Acute Assessment and Plan: Symptom onset unclear. Patient tested positive for COVID on 04/28. Was previously tested on 04/15 which was negative. Some concern for hypoxia noted by the patient's facility, however no hypoxia has been recorded since his arrival in the emergency department. * tested positive for COVID on 04/28 * start Remdesivir 200 mg IVPB x1 then 100 mg x4 for 5 total doses. * no current indication for steroids as the patient is not currently hypoxic * anticoagulation: prophylactic heparin, therapeutic if elevated d-dimer * heparin subQ as prophylaxis * supportive care: Tylenol p.r.n., Tessalon Perles p.r.n., Mucinex miguelina, DuoNebs p.r.n. * monitor VS, O2, and daily labs * Remains off O2 supplemenation (3) Bronchopneumonia: Code(s): J18.0 - Bronchopneumonia, unspecified organism Status: Acute Assessment and Plan: Patient showed probable viral pneumonitis on CXR from 04/24. CXR repeated on 04/26 which showed bilateral pneumonia, discharged home on Levaquin yesterday (04/27). Chest CT (04/28) showed bilateral probable bronchopneumonia superimposed on chronic lung disease. Patient tested positive for COVID on 04/28. * started on azithromycin and cefepime on 04/28, hold Levaquin course that was prescribed to him at discharge * supportive care * MRSA PCR negative on 04/27/2025 * Switched to oral Augmentin 875-125mg PO Q12hr and Azithro 500mg PO HS (4) Hyponatremia: Code(s): E87.1 - Hypo-osmolality and hyponatremia Status: Acute Assessment and Plan: Sodium 131 on upon discharge on 04/27, repeat today was 126. May be contributing to patient's current confusion superimposed on his pre-existing dementia. * continue NaCl 1G b.i.d. * exchange heart healthy diet for regular diet to increased sodium intake * patient recently diagnosed with hyperthyroidism, initiated on treatment during his most recent admission * will forego hyponatremia workup at this time as he recently had 1 completed * previously trialed on IV fluids which improved his sodium, however he developed tachypnea crackles and required Lasix. Will hold off on fluids at this time. * Urine osm WDL 04/21 & serum osm low 04/21, redrawn 04/26, pending * 05/01: 132 05/02: Na 128 today. Serum osmal remains low but higher than last week. Urine osmal WDL. Continue to trend. (5) Diastolic CHF: Qualifiers: Heart failure chronicity: chronic Qualified Code(s): I50.32 - Chronic diastolic (congestive) heart failure Code(s): I50.30 - Unspecified diastolic (congestive) heart failure Status: Chronic Assessment and Plan: No evidence of pulmonary edema on chest CT. Patient does have 2+ pitting edema to the bilateral lower extremities. During his most recent admission he received IV fluids due to hyponatremia and developed crackles on exam which required IV Lasix. Given the significance of his bilateral lower extremity edema, will give Lasix 40 mg IV once. Will need reassessment and close monitoring of his renal function/sodium levels. * Lasix 40 mg x 1 * monitor I&Os and daily weights * monitor renal function and sodium level * BLE edema trace 05/02: BLE trace edema, denies SOB or CP (6) COPD (chronic obstructive pulmonary disease): Qualifiers: COPD type: unspecified COPD Qualified Code(s): J44.9 - Chronic obstructive pulmonary disease, unspecified Code(s): J44.9 - Chronic obstructive pulmonary disease, unspecified Status: Chronic Assessment and Plan: No current wheezing on exam. No current concern for exacerbation. * continue home medications (7) Benign prostatic hyperplasia: Qualifiers: Lower urinary tract symptom detail: unspecified Lower urinary tract symptom presence: symptoms present Qualified Code(s): N40.1 - Benign prostatic hyperplasia with lower urinary tract symptoms Code(s): N40.0 - Benign prostatic hyperplasia without lower urinary tract symptoms Status: Chronic Assessment and Plan: History of BPH with normal PSA. Recently started on tamsulosin on 04/18, increased to 0.8 mg prior to recent discharge. Patient also started on dutasteride. Referred to urology at discharge on 04/26. - bladder scan prn - continue Flomax and dutasteride (8) Hypertension: Qualifiers: Hypertension type: primary hypertension Qualified Code(s): I10 - Essential (primary) hypertension Code(s): I10 - Essential (primary) hypertension Status: Chronic Assessment and Plan: - chronic - continue home medications: Losartan, amlodipine - continue to monitor (9) Hyperthyroidism without thyroid nodule: Code(s): E05.90 - Thyrotoxicosis, unspecified without thyrotoxic crisis or storm Status: Chronic Assessment and Plan: Recent diagnosis of hypothyroidism during his most recent admission. - previous Labs: 04/19 - TSH <0.015, T4 2.33, free T3 2.92 04/24 - TSH 0.053, T4 2.48, free T3 2.6 - continue methimazole and propranolol - will need f/u outpatient with an flat locker (10) Depression: Qualifiers: Depression Type: unspecified Qualified Code(s): F32.A - Depression, unspecified Code(s): F32.A - Depression, unspecified Status: Chronic Assessment and Plan: History of depression and anxiety. Recently more agitated, attributed to history of dementia and recent illnesses. - continue buspirone (11) Hyperlipidemia: Qualifiers: Hyperlipidemia type: unspecified Qualified Code(s): E78.5 - Hyperlipidemia, unspecified Code(s): E78.5 - Hyperlipidemia, unspecified Status: Chronic Assessment and Plan: - continue atorvastatin (12) Atrial fibrillation: Code(s): I48.91 - Unspecified atrial fibrillation Status: Chronic Assessment and Plan: RVR per RN this AM. To the bedside, bpm 100's-140's, pt sitting up eating breakfast. -Given AM dose of propranolol 10mg for hyperthyroid, upon re-examination, pt in NSR TELE 79bpm -Continue TELE (13) Acid reflux: Code(s): K21.9 - Gastro-esophageal reflux disease without esophagitis Status: Acute Assessment and Plan: Pt reports burning in his upper abd -Pepcid ordered today Plan Diet: Regular DVT Prophylaxis: Heparin subQ IV fluids: None Lines/Tubes: Peripheral IV Code Status: DNR Time Spent With Patient Time: 30 Subjective Date/time seen: 05/02/25 1126 Interval history: 89 y/o M with PMH of pSVT, PE, PUD, AFib, PVD, COPD, BPH, anemia, anxiety/depression, HLD, and dementia presents here with altered mental status and possible hypoxia. 05/02/2025 Pt resting in bed upon my arrival. No complaints. Pending SNF placement. Review of Systems Review of Systems: All systems reviewed & are unremarkable except as noted in HPI and below (Limited, disoriented) Exam Const: General: comfortable and no acute distress Other: , male, elderly, nontoxic appearance HENMT: Face/Nose/Sinus: Normal nares present Mouth: Yes moist mucous membranes Eyes: General: appearance normal, both eyes and all related structures Sclera: sclerae normal Pupils: Equal, round and reactive pupils present EOM: EOMs intact bilaterally Resp: Effort & Inspection: normal respiratory effort Auscultation: clear to auscultation bilaterally Cardio: Rate: regular rate Rhythm: regular rhythm Other: S1-S2 present without murmur, rub, ectopy GI: Other: Abdomen soft, nondistended, nontender. Normoactive bowel sounds in all quadrants. Skin: General skin exam: normal color and no rashes or lesions noted Wou nds: no wounds Neuro: Cranial nerves: Yes Equal, round and reactive pupils present Speech: normal speech Motor exam (neuro): 5/5 motor strength present throughout Sensory Exam: normal sensation Other: A&O x1 Extrem: Other: trace edema to bilateral lower extremities, symmetric Psych: Mental Status: mental status grossly normal Affect: normal affect Other: Poor insight and judgment, very pleasant. Objective Data Vital Signs Vital Signs: Vital Signs - 24 hr 05/01/25 15:28 05/01/25 16:00 05/01/25 20:00 Temperature Pulse Rate 84 67 82 Respiratory Rate 18 Blood Pressure Pulse Oximetry 94 Oxygen Delivery Room Air Fraction of Inspired Oxygen 21 05/01/25 21:56 05/02/25 04:11 05/02/25 08:20 Temperature 97.6 F 97.6 F Pulse Rate 82 80 Respiratory Rate 18 18 Blood Pressure 168/63 H 159/76 H Pulse Oximetry 94 95 Oxygen Delivery Room Air Fraction of Inspired Oxygen 05/02/25 10:36 05/02/25 10:38 05/02/25 10:38 Temperature Pulse Rate 80 72 72 Respiratory Rate 20 20 Blood Pressure Pulse Oximetry 94 Oxygen Delivery Room Air Fraction of Inspired Oxygen Intake/Output Intake/Output: Intake & Output 04/29/25 04/30/25 05/01/25 05/02/25 23:59 23:59 23:59 23:59 Intake Total 1560 1200 880 100 Output Total 2000 1100 700 Balance -440 1200 -220 -600 Meds/Results Medications: Active Medications Generic Name Dose Route Start Last Admin Trade Name Freq PRN Reason Stop Dose Admin Acetaminophen 650 mg 04/28/25 18:50 04/30/25 09:04 Acetaminophen 325 Mg Tablet PO 650 mg Q4H PRN Administration Mild Pain (1-3) or Fever Albuterol 2.5 mg 04/28/25 21:15 Albuterol Sulfate Neb 2.5 Mg/3 Ml Inh INHALATION Q6H PRN shortness of breath or wheezing Albuterol/Ipratropium 3 ml 04/28/25 18:50 Ipratropium 0.5 Mg/Albuterol Sulfate 2.5 Mg (Base) Ampul.Neb 3 Ml INHALATION Q6H PRN Shortness Of Breath Or Wheezing Amlodipine Besylate 5 mg 04/29/25 09:00 05/02/25 10:36 Amlodipine Besylate 5 Mg Tablet PO 5 mg DAILY MIGUELINA Administration Amoxicillin/Clavulanate Potassium 1 tablet 05/01/25 19:00 05/02/25 10:36 Amoxicillin/Clavulanate K 875-125 Mg Tab PO 05/05/25 09:01 1 tablet Q12HR MIGUELINA Administration Aspirin 81 mg 04/29/25 09:00 05/02/25 10:35 Aspirin 81 Mg Enteric Tablet PO 81 mg DAILY MIGUELINA Administration Atorvastatin Calcium 20 mg 04/29/25 09:00 05/02/25 10:35 Atorvastatin 20 Mg Tablet PO 20 mg DAILY MIGUELINA Administration Azithromycin 500 mg 05/01/25 21:00 05/01/25 22:09 Azithromycin 500 Mg Tablet PO 05/02/25 21:01 500 mg QHS MIGUELINA Administration Benzonatate 100 mg 04/28/25 18:50 04/30/25 09:05 Benzonatate 100 Mg Capsule PO 100 mg TID PRN Administration Cough Bisacodyl 5 mg 04/28/25 18:50 Bisacodyl 5 Mg Tablet Ec PO DAILY PRN Constipation Buspirone HCl 5 mg 04/28/25 21:00 05/02/25 10:35 Buspirone Hcl 5 Mg Tablet PO 5 mg Q12HR MIGUELINA Administration Docusate Sodium 100 mg 04/29/25 09:00 05/02/25 10:35 Docusate Sodium 100 Mg Capsule PO 100 mg BID MIGUELINA Administration Famotidine 20 mg 04/29/25 15:15 05/02/25 10:35 Famotidine 20 Mg Tablet PO 20 mg Q12HR MIGUELINA Administration Fluticasone Propionate 1 spray 04/29/25 09:00 05/02/25 10:38 Fluticasone Propionate 0.05% Na Spr 16 Gm Btl (*Bkc) NASAL 1 spray BID MIGUELINA Administration Guaifenesin 600 mg 04/28/25 21:00 05/02/25 10:36 Guaifenesin 12 Hr 600 Mg Tabcr PO 600 mg Q12HR MIGUELINA Administration Heparin Sodium (Porcine) 5,000 units 04/28/25 21:00 05/02/25 10:36 Heparin Sodium 5,000 Units/Ml Vial SUB-Q 5,000 units Q12HR MIGUELINA Administration Remdesivir 100 mg in 250 mls @ 250 mls/hr 04/29/25 22:00 05/01/25 23:10 IVPB 05/02/25 22:59 Infused Q24H MIGUELINA Infusion Losartan Potassium 50 mg 04/29/25 09:00 05/02/25 10:36 Losartan Potassium 50 Mg Tablet PO 50 mg DAILY MIGUELINA Administration Melatonin 3 mg 04/28/25 21:00 05/01/25 22:09 Melatonin 3 Mg Tablet PO 3 mg HS MIGUELINA Administration Methimazole 5 mg 04/29/25 09:00 05/02/25 10:37 Methimazole 5 Mg Tab PO 5 mg DAILY MIGUELINA Administration Pantoprazole Sodium 40 mg 04/29/25 09:00 05/02/25 10:35 Pantoprazole 40 Mg Tablet PO 40 mg QAM MIGUELINA Administration Polyethylene Glycol 17 gm 04/29/25 09:00 05/02/25 10:37 Polyethylene Glycol 3350 17 Gm Powd.Pack PO Not Given QAM MIGUELINA Prednisone 5 mg 05/03/25 09:00 Prednisone 5 Mg Tablet PO 05/05/25 09:01 DAILY MIGUELINA Propranolol HCl 10 mg 04/28/25 21:20 05/02/25 10:36 Propranolol Hcl 10 Mg Tablet PO 10 mg BID MIGUELINA Administration Fluticasone/Salmeterol 2 puff 04/29/25 08:00 05/02/25 10:37 Fluticasone/Salmeterol 115-21 Mcg Inhaler 1 Puff INHALATION 2 puff Q12HRT MIGUELINA Administration Sodium Chloride 1 gm 04/29/25 09:00 05/02/25 10:35 Sodium Chloride 1 Gm Tablet PO 05/05/25 09:01 1 gm BID MIGUELINA Administration Tamsulosin HCl 0.8 mg 04/28/25 21:00 05/01/25 22:09 Tamsulosin Hcl 0.4 Mg Capsule PO 0.8 mg HS MIGUELINA Administration Radiology Results: ITS Impressions Head CT 04/28/25 16:49 IMPRESSION: 1. No acute intracranial hemorrhage. No mass effect. 2. Probable chronic ischemic white matter change. 3. Cerebral atrophy appropriate for the patient's age. If symptoms persist or worsen, consider a short-term follow-up study or additional imaging for further assessment. Chest CT 04/28/25 16:55 IMPRESSION: Bilateral probable bronchopneumonia superimposed on chronic lung disease. There are micronodules which are probably infectious, underlying neoplasm is not excluded. Follow-up after treatment is recommended to assess improvement Labs Labs: Laboratory Results - last 24 hr 05/02/25 07:47 WBC 4.2 L RBC 3.94 L Hgb 12.0 L Hct 36.5 L MCV 92.6 MCH 30.5 MCHC 32.9 RDW 13.2 Plt Count 208 MPV 9.0 Immature Gran % (Auto) 1.4 H Neut % (Auto) 73.6 H Lymph % (Auto) 15.3 L [place] % (Auto) 8.5 Eos % (Auto) 0.7 Baso % (Auto) 0.5 Lymph # (Auto) 0.65 L [place] # (Auto) 0.4 Eos # (Auto) 0.0 Baso # (Auto) 0.0 Abs Immat Gran (auto) 0.06 H Absolute Neuts (auto) 3.1 Absolute Nucleated RBC 0.000 Nucleated RBC % 0.0 PT 13.7 INR 1.1 Sodium 128 L Potassium 3.5 Chloride 99 Carbon Dioxide 23 Anion Gap 6 BUN 29 H Creatinine 0.72 Estim Creat Clear Calc 59 Estimated GFR > 60 Glucose 99 Calcium 7.9 L Total Bilirubin 0.7 Direct Bilirubin 0.0 AST 32 ALT 32 Alkaline Phosphatase 89 Total Protein 5.7 L Albumin 3.0 L Quality VTE Prophylaxis VTE prophylaxis: pharmacologic ordered
[2025-05-02] MEDS: TAMSULOSIN HCL 0.4 MG CAPSULE 0.8 MG PO (21:23)
[2025-05-02] MEDS: AZITHROMYCIN 500 MG TABLET PO (21:24)
[2025-05-02] MEDS: MELATONIN 3 MG TABLET PO (21:24)
[2025-05-02] MEDS: REMDESIVIR 100 MG/NS 250 ML 100 MG/250 ML BAG 250 MG IVPB (21:25)
[2025-05-03] VITALS (13 sets, daily range): BP systolic 126–148; BP diastolic 62–90; PULSE 55–88; RESP 16–20; TEMP 36.3–36.9; O2SAT 94–98
--- NOTE | 2025-05-03 02:00 | PC.NURSE ---
Daylight Savings Time For Daylight Savings Time Ending in the Fall - Clocks are moved back. For Daylight Savings Time Beginning in the Spring - Clocks are moved ahead. For [facility], the time of change occurs at 0200 hrs. Time is taken from the observer electrical prospecting. This entry on the patient's chart recognizes the change in time reflected during documentation. Example: 2 entries for vital signs may be charted for 0200 hrs.
[2025-05-03 07:56] LABS: Hematocrit 35.5 % (42.0-52.0); Hemoglobin 12.1 g/dL (14.0-18.0); Immature Granulocyte Percent A 1.0 % (0-0.5); Lymphocytes Absolute Auto 0.66 K/mm3 (0.9-3.2); Mean Corpuscular HGB Conc 34.1 g/dl (32-36); Mean Corpuscular Hemoglobin 30.9 pg (26-34); Mean Corpuscular Volume 90.8 fl (80-100); Nucleated Red Blood Cells Absolute Auto 0.000 K/mm3 (0.0-0.012); Nucleated Red Blood Cells Perc 0.0 % (0.0-0.2); Platelet Count Result 195 k/mm3 (150-375); Red Blood Count 3.91 M/mm3 (4.6-6.20); White Blood Count 4.9 K/mm3 (4.5-10.0)
[2025-05-03 08:20] LABS: Alanine Aminotransferase 31 U/L (6-50); Albumin Level 2.9 g/dL (3.5-5.1); Alkaline Phosphatase 84 U/L (38-126); Anion Gap 4 mmol/L (4-12); Aspartate Amino Transferase 31 U/L (17-59); Bilirubin,Total 0.7 mg/dL (0.2-1.3); Blood Urea Nitrogen 22 mg/dL (9-20); Calcium 7.8 mg/dL (8.4-10.2); Carbon Dioxide 24 mmol/L (22-30); Chloride 99 mmol/L (98-107); Estimated CRCL calculation 57 ml/min; Estimated Glomerular Filt Rate > 60; Glucose 99 mg/dL (65-110); Potassium 3.4 mmol/L (3.4-5.0); Sodium 127 mmol/L (137-145); Total Protein 5.6 g/dL (6.3-8.2)
[2025-05-03] MEDS: FLUTICASONE/SALMETEROL 115-21 MCG INHALER 1 PUFF 2 PUFF INHALATION ×2 (09:13→20:39)
[2025-05-03] MEDS: PROPRANOLOL HCL 10 MG TABLET PO ×2 (09:34→17:33)
[2025-05-03] MEDS: SODIUM CHLORIDE 1 GM TABLET PO ×2 (09:34→17:33)
[2025-05-03] MEDS: FAMOTIDINE 20 MG TABLET PO ×2 (09:34→20:48)
[2025-05-03] MEDS: PANTOPRAZOLE 40 MG TABLET PO (09:34)
[2025-05-03] MEDS: guaiFENesin 12 HR 600 MG TABCR PO ×2 (09:34→20:48)
[2025-05-03] MEDS: ATORVASTATIN 20 MG TABLET PO (09:35)
[2025-05-03] MEDS: DOCUSATE SODIUM 100 MG CAPSULE PO ×2 (09:35→17:33)
[2025-05-03] MEDS: LOSARTAN POTASSIUM 50 MG TABLET PO (09:35)
[2025-05-03] MEDS: ASPIRIN 81 MG ENTERIC TABLET PO (09:35)
[2025-05-03] MEDS: ALBUTEROL SULFATE NEB 2.5 MG/3 ML INH INHALATION (12:08)
--- NOTE | 2025-05-03 13:20 | P.PNIM_ITS ---
Progress Note: A&P Assessment and Plan (1) AMS (altered mental status): Qualifiers: Altered mental status type: disorientation Qualified Code(s): R41.0 - Disorientation, unspecified Code(s): R41.82 - Altered mental status, unspecified Status: Acute Assessment and Plan: Patient's reported baseline is A&O x3. Reviewed previous notes from most recent admission, family reported that the patient requires you to speak slowly and use simple terms. Days and years blend together. Recently started to get family members confused and more agitated. Most recently A&O x1 on 04/[address] Head CT completed in the ED on 04/28 which showed no acute findings, chronic findings including probable chronic ischemic white matter changes and cerebral atrophy appropriate for patient's age. Patient tested positive for COVID upon admission on 04/28 which is likely contributing to patient's wor sening confusion. Imaging also concerning for unresolved pneumonia. The patient was also noted to have hyponatremia during his recent stay and was discharged home with a sodium of 131, returning today with a sodium of 126. * head CT unremarkable on 04/28 * tested positive for COVID on 04/28, likely contributing to patient's current alteration * hyponatremia noted during most recent admission, discharged with a sodium of 131. Now 126, could also be contributing. Continue sodium tablets. * Na 129 today, continue NaCl tabs * Urine osm WDL 04/21 & serum osm low 04/21, redrawn 04/26 - serum continues to be low at 271, higher than prior. urine osmolality WDL * Reconsult neurology * Blood cultures preliminary result shows no growth * PT/OT - recommend SNF (2) COVID: Code(s): U07.1 - COVID-19 Status: Acute Assessment and Plan: Symptom onset unclear. Patient tested positive for COVID on 04/28. Was previously tested on 04/15 which was negative. Some concern for hypoxia noted by the patient's facility, however no hypoxia has been recorded since his arrival in the emergency department. * tested positive for COVID on 04/28 * start Remdesivir 200 mg IVPB x1 then 100 mg x4 for 5 total doses. * no current indication for steroids as the patient is not currently hypoxic * anticoagulation: prophylactic heparin, therapeutic if elevated d-dimer * heparin subQ as prophylaxis * supportive care: Tylenol p.r.n., Tessalon Perles p.r.n., Mucinex miguelina, DuoNebs p.r.n. * monitor VS, O2, and daily labs * Remains off O2 supplementation 05/03: Resdesivir completed. (3) Bronchopneumonia: Code(s): J18.0 - Bronchopneumonia, unspecified organism Status: Acute Assessment and Plan: Patient showed probable viral pneumonitis on CXR from 04/24. CXR repeated on 04/26 which showed bilateral pneumonia, discharged home on Levaquin yesterday (04/27). Chest CT (04/28) showed bilateral probable bronchopneumonia superimposed on chronic lung disease. Patient tested positive for COVID on 04/28. * started on azithromycin and cefepime on 04/28, hold Levaquin course that was prescribed to him at discharge * supportive care * MRSA PCR negative on 04/27/2025 * Switched to oral Augmentin 875-125mg PO Q12hr and Azithro 500mg PO HS 05/03: Continue Augmentin & prednisone. Azithro complete. (4) Hyponatremia: Code(s): E87.1 - Hypo-osmolality and hyponatremia Status: Acute Assessment and Plan: Sodium 131 on upon discharge on 04/27, repeat today was 126. May be contributing to patient's current confusion superimposed on his pre-existing dementia. * continue NaCl 1G b.i.d. * exchange heart healthy diet for regular diet to increased sodium intake * patient recently diagnosed with hyperthyroidism, initiated on treatment during his most recent admission * will forego hyponatremia workup at this time as he recently had 1 completed * previously trialed on IV fluids which improved his sodium, however he developed tachypnea crackles and required Lasix. Will hold off on fluids at this time. * Urine osm WDL 04/21 & serum osm low 04/21, redrawn 04/26, pending * 05/01: 132 05/02: Na 128 today. Serum osmal remains low but higher than last week. Urine osmal WDL. Continue to trend. 05/03: Na 127 today, see above. (5) Diastolic CHF: Qualifiers: Heart failure chronicity: chronic Qualified Code(s): I50.32 - Chronic diastolic (congestive) heart failure Code(s): I50.30 - Unspecified diastolic (congestive) heart failure Status: Chronic Assessment and Plan: No evidence of pulmonary edema on chest CT. Patient does have 2+ pitting edema to the bilateral lower extremities. During his most recent admission he received IV fluids due to hyponatremia and developed crackles on exam which required IV Lasix. Given the significance of his bilateral lower extremity edema, will give Lasix 40 mg IV once. Will need reassessment and close monitoring of his renal function/sodium levels. * Lasix 40 mg x 1 * monitor I&Os and daily weights * monitor renal function and sodium level * BLE edema trace 05/02: BLE trace edema, denies SOB or CP (6) COPD (chronic obstructive pulmonary disease): Qualifiers: COPD type: unspecified COPD Qualified Code(s): J44.9 - Chronic obstructive pulmonary disease, unspecified Code(s): J44.9 - Chronic obstructive pulmonary disease, unspecified Status: Chronic Assessment and Plan: No current wheezing on exam. No current concern for exacerbation. * continue home medications (7) Benign prostatic hyperplasia: Qualifiers: Lower urinary tract symptom presence: symptoms present Lower urinary tract symptom detail: unspecified Qualified Code(s): N40.1 - Benign prostatic hyperplasia with lower urinary tract symptoms Code(s): N40.0 - Benign prostatic hyperplasia without lower urinary tract symptoms Status: Chronic Assessment and Plan: History of BPH with normal PSA. Recently started on tamsulosin on 04/18, increased to 0.8 mg prior to recent discharge. Patient also started on dutasteride. Referred to urology at discharge on 04/26. - bladder scan prn - continue Flomax and dutasteride (8) Hypertension: Qualifiers: Hypertension type: primary hypertension Qualified Code(s): I10 - Essential (primary) hypertension Code(s): I10 - Essential (primary) hypertension Status: Chronic Assessment and Plan: - chronic - continue home medications: Losartan, amlodipine - continue to monitor 05/03: 132/66 (9) Hyperthyroidism without thyroid nodule: Code(s): E05.90 - Thyrotoxicosis, unspecified without thyrotoxic crisis or storm Status: Chronic Assessment and Plan: Recent diagnosis of hypothyroidism during his most recent admission. - previous Labs: 04/19 - TSH <0.015, T4 2.33, free T3 2.92 04/24 - TSH 0.053, T4 2.48, free T3 2.6 - continue methimazole and propranolol - will need f/u outpatient with an logistics vice president (10) Depression: Qualifiers: Depression Type: unspecified Qualified Code(s): F32.A - Depression, unspecified Code(s): F32.A - Depression, unspecified Status: Chronic Assessment and Plan: History of depression and anxiety. Recently more agitated, attributed to history of dementia and recent illnesses. - continue buspirone (11) Hyperlipidemia: Qualifiers: Hyperlipidemia type: unspecified Qualified Code(s): E78.5 - Hyperlipidemia, unspecified Code(s): E78.5 - Hyperlipidemia, unspecified Status: Chronic Assessment and Plan: - continue atorvastatin (12) Atrial fibrillation: Code(s): I48.91 - Unspecified atrial fibrillation Status: Chronic Assessment and Plan: RVR per RN this AM. To the bedside, bpm 100's-140's, pt sitting up eating breakfast. -Given AM dose of propranolol 10mg for hyperthyroid, upon re-examination, pt in NSR TELE 79bpm 05/03: 78bpm, reg rhythm (13) Acid reflux: Code(s): K21.9 - Gastro-esophageal reflux disease without esophagitis Status: Acute Assessment and Plan: Pt reports burning in his upper abd -Pepcid ordered today Plan Diet: Regular DVT Prophylaxis: Heparin subQ IV fluids: None Lines/Tubes: Peripheral IV Code Status: DNR Pending SNF placement: [facility] vs [facility] Time Spent With Patient Time: 40 Subjective Date/time seen: 05/03/25 0852 Interval history: 89 y/o M with PMH of pSVT, PE, PUD, AFib, PVD, COPD, BPH, anemia, anxiety/depression, HLD, and dementia presents here with altered mental status and possible hypoxia. 05/03/2025 Pt resting in bed upon my arrival. No complaints. Pending SNF placement. Daughter, Josiane, at the bedside. No update, all questions addressed. Review of Systems Review of Systems: All systems reviewed & are unremarkable except as noted in HPI and below (Limited, disoriented) Exam Const: General: comfortable and no acute distress Other: , male, elderly, nontoxic appearance HENMT: Face/Nose/Sinus: Normal nares present Mouth: Yes moist mucous membranes Eyes: General: appearance normal, both eyes and all related structures Sclera: sclerae normal Pupils: Equal, round and reactive pupils present EOM: EOMs intact bilaterally Resp: Effort & Inspection: normal respiratory effort Auscultation: clear to auscultation bilaterally Cardio: Rate: regular rate Rhythm: regular rhythm Other: S1-S2 present without murmur, rub, ectopy GI: Other: Abdomen soft, nondistended, nontender. Normoactive bowel sounds in all quadrants. Skin: General skin exam: normal color and no rashes or lesions noted Wounds: no wounds Neuro: Cranial nerves: Yes Equal, round and reactive pupils present Speech: normal speech Motor exam (neuro): 5/5 motor strength present throughout Sensory Exam: normal sensation Other: A&O x1 Extrem: Other: trace edema to bilateral lower extremities, symmetric Psych: Mental Status: mental status grossly normal Affect: normal affect Other: Poor insight and judgment, very pleasant. Objective Data Vital Signs Vital Signs: Vital Signs - 24 hr 05/02/25 17:21 05/02/25 20:00 05/02/25 20:45 Temperature Pulse Rate 70 Respiratory Rate Blood Pressure Pulse Oximetry 99 Oxygen Delivery Room Air Autopap 05/02/25 22:27 05/03/25 07:00 05/03/25 09:13 Temperature 97.6 F 98.4 F Pulse Rate 67 88 70 Respiratory Rate 14 16 20 Blood Pressure 152/76 H 148/88 H Pulse Oximetry 99 98 95 Oxygen Delivery Room Air 05/03/25 09:30 05/03/25 09:31 05/03/25 09:34 Temperature Pulse Rate 72 74 Respiratory Rate 16 Blood Pressure 132/66 Pulse Oximetry 94 94 Oxygen Delivery Room Air 05/03/25 12:08 05/03/25 12:15 Temperature Pulse Rate 75 78 Respiratory Rate 20 20 Blood Pressure Pulse Oximetry Oxygen Delivery Intake/Output Intake/Output: Intake & Output 04/30/25 05/01/25 05/02/25 05/03/25 23:59 23:59 23:59 22:59 Intake Total 1200 880 450 750 Output Total 1100 800 Balance 1200 -220 -350 750 Meds/Results Medications: Active Medications Generic Name Dose Route Start Last Admin Trade Name Freq PRN Reason Stop Dose Admin Acetaminophen 650 mg 04/28/25 18:50 04/30/25 09:04 Acetaminophen 325 Mg Tablet PO 650 mg Q4H PRN Administration Mild Pain (1-3) or Fever Albuterol 2.5 mg 04/28/25 21:15 05/03/25 12:08 Albuterol Sulfate Neb 2.5 Mg/3 Ml Inh INHALATION 2.5 mg Q6H PRN Administration shortness of breath or wheezing Albuterol/Ipratropium 3 ml 04/28/25 18:50 Ipratropium 0.5 Mg/Albuterol Sulfate 2.5 Mg (Base) Ampul.Neb 3 Ml INHALATION Q6H PRN Shortness Of Breath Or Wheezing Amlodipine Besylate 5 mg 04/29/25 09:00 05/03/25 09:34 Amlodipine Besylate 5 Mg Tablet PO 5 mg DAILY MIGUELINA Administration Amoxicillin/Clavulanate Potassium 1 tablet 05/01/25 19:00 05/03/25 09:35 Amoxicillin/Clavulanate K 875-125 Mg Tab PO 05/05/25 09:01 1 tablet Q12HR MIGUELINA Administration Aspirin 81 mg 04/29/25 09:00 05/03/25 09:35 Aspirin 81 Mg Enteric Tablet PO 81 mg DAILY MIGUELINA Administration Atorvastatin Calcium 20 mg 04/29/25 09:00 05/03/25 09:35 Atorvastatin 20 Mg Tablet PO 20 mg DAILY MIGUELINA Administration Benzonatate 100 mg 04/28/25 18:50 04/30/25 09:05 Benzonatate 100 Mg Capsule PO 100 mg TID PRN Administration Cough Bisacodyl 5 mg 04/28/25 18:50 Bisacodyl 5 Mg Tablet Ec PO DAILY PRN Constipation Buspirone HCl 5 mg 04/28/25 21:00 05/03/25 09:34 Buspirone Hcl 5 Mg Tablet PO 5 mg Q12HR MIGUELINA Administration Docusate Sodium 100 mg 04/29/25 09:00 05/03/25 09:35 Docusate Sodium 100 Mg Capsule PO 100 mg BID MIGUELINA Administration Famotidine 20 mg 04/29/25 15:15 05/03/25 09:34 Famotidine 20 Mg Tablet PO 20 mg Q12HR MIGUELINA Administration Fluticasone Propionate 1 spray 04/29/25 09:00 05/03/25 09:35 Fluticasone Propionate 0.05% Na Spr 16 Gm Btl (*Bkc) NASAL Not Given BID [facility] Guaifenesin 600 mg 04/28/25 21:00 05/03/25 09:34 Guaifenesin 12 Hr 600 Mg Tabcr PO 600 mg Q12HR MIGUELINA Administration Heparin Sodium (Porcine) 5,000 units 04/28/25 21:00 05/03/25 09:37 Heparin Sodium 5,000 Units/Ml Vial SUB-Q 5,000 units Q12HR MIGUELINA Administration Losartan Potassium 50 mg 04/29/25 09:00 05/03/25 09:35 Losartan Potassium 50 Mg Tablet PO 50 mg DAILY MIGUELINA Administration Melatonin 3 mg 04/28/25 21:00 05/02/25 21:24 Melatonin 3 Mg Tablet PO 3 mg HS MIGUELINA Administration Methimazole 5 mg 04/29/25 09:00 05/03/25 09:34 Methimazole 5 Mg Tab PO 5 mg DAILY MIGUELINA Administration Pantoprazole Sodium 40 mg 04/29/25 09:00 05/03/25 09:34 Pantoprazole 40 Mg Tablet PO 40 mg QAM MIGUELINA Administration Polyethylene Glycol 17 gm 04/29/25 09:00 05/03/25 09:35 Polyethylene Glycol 3350 17 Gm Powd.Pack PO 17 gm QAM MIGUELINA Administration Prednisone 5 mg 05/03/25 09:00 05/03/25 09:34 Prednisone 5 Mg Tablet PO 05/05/25 09:01 5 mg DAILY MIGUELINA Administration Propranolol HCl 10 mg 04/28/25 21:20 05/03/25 09:34 Propranolol Hcl 10 Mg Tablet PO 10 mg BID MIGUELINA Administration Fluticasone/Salmeterol 2 puff 04/29/25 08:00 05/03/25 09:13 Fluticasone/Salmeterol 115-21 Mcg Inhaler 1 Puff INHALATION 2 puff Q12HRT MIGUELINA Administration Sodium Chloride 1 gm 04/29/25 09:00 05/03/25 09:34 Sodium Chloride 1 Gm Tablet PO 05/05/25 09:01 1 gm BID MIGUELINA Administration Tamsulosin HCl 0.8 mg 04/28/25 21:00 05/02/25 21:23 Tamsulosin Hcl 0.4 Mg Capsule PO 0.8 mg HS MIGUELINA Administration Radiology Results: ITS Impressions Head CT 04/28/25 16:49 IMPRESSION: 1. No acute intracranial hemorrhage. No mass effect. 2. Probable chronic ischemic white matter change. 3. Cerebral atrophy appropriate for the patient's age. If symptoms persist or worsen, consider a short-term follow-up study or additional imaging for further assessment. Chest CT 04/28/25 16:55 IMPRESSION: Bilateral probable bronchopneumonia superimposed on chronic lung disease. There are micronodules which are probably infectious, underlying neoplasm is not excluded. Follow-up after treatment is recommended to assess improvement Labs Labs: Laboratory Results - last 24 hr 05/03/25 07:39 WBC 4.9 RBC 3.91 L Hgb 12.1 L Hct 35.5 L MCV 90.8 MCH 30.9 MCHC 34.1 RDW 13.1 Plt Count 195 MPV 9.0 Immature Gran % (Auto) 1.0 H Neut % (Auto) 78.0 H Lymph % (Auto) 13.5 L Slope % (Auto) 6.5 Eos % (Auto) 0.8 Baso % (Auto) 0.2 Lymph # (Auto) 0.66 L Slope # (Auto) 0.3 Eos # (Auto) 0.0 Baso # (Auto) 0.0 Abs Immat Gran (auto) 0.05 H Absolute Neuts (auto) 3.8 Absolute Nucleated RBC 0.000 Nucleated RBC % 0.0 Sodium 127 L Potassium 3.4 Chloride 99 Carbon Dioxide 24 Anion Gap 4 BUN 22 H Creatinine 0.72 Estim Creat Clear Calc 57 Estimated GFR > 60 Glucose 99 Calcium 7.8 L Total Bilirubin 0.7 AST 31 ALT 31 Alkaline Phosphatase 84 Total Protein 5.6 L Albumin 2.9 L Quality VTE Prophylaxis VTE prophylaxis: pharmacologic ordered
[2025-05-03] MEDS: MELATONIN 3 MG TABLET PO (20:48)
[2025-05-03] MEDS: TAMSULOSIN HCL 0.4 MG CAPSULE 0.8 MG PO (20:49)
[2025-05-04] VITALS (8 sets, daily range): BP systolic 107–137; BP diastolic 55–67; PULSE 70–87; RESP 14–20; TEMP 36.3–36.7; O2SAT 94–99
[2025-05-04 07:52] LABS: Hematocrit 35.8 % (42.0-52.0); Hemoglobin 12.1 g/dL (14.0-18.0); Immature Granulocyte Percent A 1.0 % (0-0.5); Lymphocytes Absolute Auto 0.69 K/mm3 (0.9-3.2); Mean Corpuscular HGB Conc 33.8 g/dl (32-36); Mean Corpuscular Hemoglobin 30.9 pg (26-34); Mean Corpuscular Volume 91.3 fl (80-100); Nucleated Red Blood Cells Absolute Auto 0.000 K/mm3 (0.0-0.012); Nucleated Red Blood Cells Perc 0.0 % (0.0-0.2); Platelet Count Result 191 k/mm3 (150-375); Red Blood Count 3.92 M/mm3 (4.6-6.20); White Blood Count 6.0 K/mm3 (4.5-10.0)
[2025-05-04 08:17] LABS: Alanine Aminotransferase 31 U/L (6-50); Albumin Level 2.8 g/dL (3.5-5.1); Alkaline Phosphatase 81 U/L (38-126); Anion Gap 2 mmol/L (4-12); Aspartate Amino Transferase 34 U/L (17-59); Bilirubin,Total 0.8 mg/dL (0.2-1.3); Blood Urea Nitrogen 25 mg/dL (9-20); Calcium 8.0 mg/dL (8.4-10.2); Carbon Dioxide 27 mmol/L (22-30); Chloride 99 mmol/L (98-107); Estimated CRCL calculation 51 ml/min; Estimated Glomerular Filt Rate > 60; Glucose 96 mg/dL (65-110); Potassium 3.6 mmol/L (3.4-5.0); Sodium 128 mmol/L (137-145); Total Protein 5.6 g/dL (6.3-8.2)
[2025-05-04] MEDS: FAMOTIDINE 20 MG TABLET PO ×2 (08:56→20:44)
[2025-05-04] MEDS: guaiFENesin 12 HR 600 MG TABCR PO ×2 (08:56→20:45)
[2025-05-04] MEDS: ASPIRIN 81 MG ENTERIC TABLET PO (08:56)
[2025-05-04] MEDS: DOCUSATE SODIUM 100 MG CAPSULE PO ×2 (08:56→16:17)
[2025-05-04] MEDS: PANTOPRAZOLE 40 MG TABLET PO (08:56)
[2025-05-04] MEDS: SODIUM CHLORIDE 1 GM TABLET PO ×2 (08:57→16:17)
[2025-05-04] MEDS: ATORVASTATIN 20 MG TABLET PO (08:57)
[2025-05-04] MEDS: PROPRANOLOL HCL 10 MG TABLET PO ×2 (09:14→16:17)
--- NOTE | 2025-05-04 14:13 | P.PNIM_ITS ---
Progress Note: A&P Assessment and Plan (1) AMS (altered mental status): Qualifiers: Altered mental status type: disorientation Qualified Code(s): R41.0 - Disorientation, unspecified Code(s): R41.82 - Altered mental status, unspecified Status: Acute Assessment and Plan: Patient's reported baseline is A&O x3. Reviewed previous notes from most recent admission, family reported that the patient requires you to speak slowly and use simple terms. Days and years blend together. Recently started to get family members confused and more agitated. Most recently A&O x1 on 04/[address] Head CT completed in the ED on 04/28 which showed no acute findings, chronic findings including probable chronic ischemic white matter changes and cerebral atrophy appropriate for patient's age. Patient tested positive for COVID upon admission on 04/28 which is likely contributing to patient's wor sening confusion. Imaging also concerning for unresolved pneumonia. The patient was also noted to have hyponatremia during his recent stay and was discharged home with a sodium of 131, returning today with a sodium of 126. * head CT unremarkable on 04/28 * tested positive for COVID on 04/28, likely contributing to patient's current alteration * hyponatremia noted during most recent admission, discharged with a sodium of 131. Now 126, could also be contributing. Continue sodium tablets. * Na 129 today, continue NaCl tabs * Urine osm WDL 04/21 & serum osm low 04/21, redrawn 04/26 - serum continues to be low at 271, higher than prior. urine osmolality WDL * Reconsult neurology * Blood cultures preliminary result shows no growth * PT/OT - recommend SNF (2) COVID: Code(s): U07.1 - COVID-19 Status: Acute Assessment and Plan: Symptom onset unclear. Patient tested positive for COVID on 04/28. Was previously tested on 04/15 which was negative. Some concern for hypoxia noted by the patient's facility, however no hypoxia has been recorded since his arrival in the emergency department. * tested positive for COVID on 04/28 * start Remdesivir 200 mg IVPB x1 then 100 mg x4 for 5 total doses. * no current indication for steroids as the patient is not currently hypoxic * anticoagulation: prophylactic heparin, therapeutic if elevated d-dimer * heparin subQ as prophylaxis * supportive care: Tylenol p.r.n., Tessalon Perles p.r.n., Mucinex miguelina, DuoNebs p.r.n. * monitor VS, O2, and daily labs * Remains off O2 supplementation 05/03: Resdesivir completed. (3) Bronchopneumonia: Code(s): J18.0 - Bronchopneumonia, unspecified organism Status: Acute Assessment and Plan: Patient showed probable viral pneumonitis on CXR from 04/24. CXR repeated on 04/26 which showed bilateral pneumonia, discharged home on Levaquin yesterday (04/27). Chest CT (04/28) showed bilateral probable bronchopneumonia superimposed on chronic lung disease. Patient tested positive for COVID on 04/28. * started on azithromycin and cefepime on 04/28, hold Levaquin course that was prescribed to him at discharge * supportive care * MRSA PCR negative on 04/27/2025 * Switched to oral Augmentin 875-125mg PO Q12hr and Azithro 500mg PO HS 05/03: Continue Augmentin & prednisone. Azithro complete. (4) Hyponatremia: Code(s): E87.1 - Hypo-osmolality and hyponatremia Status: Acute Assessment and Plan: Sodium 131 on upon discharge on 04/27, repeat today was 126. May be contributing to patient's current confusion superimposed on his pre-existing dementia. * continue NaCl 1G b.i.d. * exchange heart healthy diet for regular diet to increased sodium intake * patient recently diagnosed with hyperthyroidism, initiated on treatment during his most recent admission * will forego hyponatremia workup at this time as he recently had 1 completed * previously trialed on IV fluids which improved his sodium, however he developed tachypnea crackles and required Lasix. Will hold off on fluids at this time. * Urine osm WDL 04/21 & serum osm low 04/21, redrawn 04/26, pending * 05/01: 132 05/02: Na 128 today. Serum osmal remains low but higher than last week. Urine osmal WDL. Continue to trend. 05/03: Na 127 today, see above. 05/04: Na 128 (5) Diastolic CHF: Qualifiers: Heart failure chronicity: chronic Qualified Code(s): I50.32 - Chronic diastolic (congestive) heart failure Code(s): I50.30 - Unspecified diastolic (congestive) heart failure Status: Chronic Assessment and Plan: No evidence of pulmonary edema on chest CT. Patient does have 2+ pitting edema to the bilateral lower extremities. During his most recent admission he received IV fluids due to hyponatremia and developed crackles on exam which req uired IV Lasix. Given the significance of his bilateral lower extremity edema, will give Lasix 40 mg IV once. Will need reassessment and close monitoring of his renal function/sodium levels. * Lasix 40 mg x 1 * monitor I&Os and daily weights * monitor renal function and sodium level * BLE edema trace 05/02: BLE trace edema, denies SOB or CP (6) COPD (chronic obstructive pulmonary disease): Qualifiers: COPD type: unspecified COPD Qualified Code(s): J44.9 - Chronic obstru ctive pulmonary disease, unspecified Code(s): J44.9 - Chronic obstructive pulmonary disease, unspecified Status: Chronic Assessment and Plan: No current wheezing on exam. No current concern for exacerbation. * continue home medications (7) Benign prostatic hyperplasia: Qualifiers: Lower urinary tract symptom detail: unspecified Lower urinary tract symptom presence: symptoms present Qualified Code(s): N40.1 - Benign prostatic hyperplasia with lower urinary tract symptoms Code(s): N40.0 - Benign prostatic hyperplasia without lower urinary tract symptoms Status: Chronic Assessment and Plan: History of BPH with normal PSA. Recently started on tamsulosin on 04/18, increased to 0.8 mg prior to recent discharge. Patient also started on dutasteride. Referred to urology at discharge on 04/26. - bladder scan prn - continue Flomax and dutasteride (8) Hypertension: Qualifiers: Hypertension type: primary hypertension Qualified Code(s): I10 - Essential (primary) hypertension Code(s): I10 - Essential (primary) hypertension Status: Chronic Assessment and Plan: - chronic - continue home medications: Losartan, amlodipine - continue to monitor 05/03: 132/66 05/04: 132/57 (9) Hyperthyroidism without thyroid nodule: Code(s): E05.90 - Thyrotoxicosis, unspecified without thyrotoxic crisis or storm Status: Chronic Assessment and Plan: Recent diagnosis of hypothyroidism during his most recent admission. - previous Labs: 04/19 - TSH <0.015, T4 2.33, free T3 2.92 04/24 - TSH 0.053, T4 2.48, free T3 2.6 - continue methimazole and propranolol - will need f/u outpatient with an quality process lead (10) Depression: Qualifiers: Depression Type: unspecified Qualified Code(s): F32.A - Depression, unspecified Code(s): F32.A - Depression, unspecified Status: Chronic Assessment and Plan: History of depression and anxiety. Recently more agitated, attributed to history of dementia and recent illnesses. - continue buspirone (11) Hyperlipidemia: Qualifiers: Hyperlipidemia type: unspecified Qualified Code(s): E78.5 - Hyperlipidemia, unspecified Code(s): E78.5 - Hyperlipidemia, unspecified Status: Chronic Assessment and Plan: - continue atorvastatin (12) Atrial fibrillation: Code(s): I48.91 - Unspecified atrial fibrillation Status: Chronic Assessment and Plan: RVR per RN this AM. To the bedside, bpm 100's-140's, pt sitting up eating breakfast. -Given AM dose of propranolol 10mg for hyperthyroid, upon re-examination, pt in NSR TELE 79bpm 05/03: 78bpm, reg rhythm 05/04: 70bpm, reg rhythm (13) Acid reflux: Code(s): K21.9 - Gastro-esophageal reflux disease without esophagitis Status: Acute Assessment and Plan: Pt reports burning in his upper abd -Pepcid ordered today Plan Diet: Regular DVT Prophylaxis: Heparin subQ IV fluids: None Lines/Tubes: Peripheral IV Code Status: DNR Pending SNF placement: [facility], [facility], [facility], and [facility] pending -A number of facilities are not taking COVID pts Time Spent With Patient Time: 35 Subjective Date/time seen: 05/04/25 0955 Interval history: 89 y/o M with PMH of pSVT, PE, PUD, AFib, PVD, COPD, BPH, anemia, anxiety/depression, HLD, and dementia presents here with altered mental status and possible hypoxia. 05/03/2025 Pt resting in bed upon my arrival. No complaints. Pending SNF placement, multiple facilities not accepting COVID pts so this has been difficult. Review of Systems Review of Systems: All systems reviewed & are unremarkable except as noted in HPI and below (Limited, disoriented) Exam Const: General: comfortable and no acute distress Other: , male, elderly, nontoxic appearance HENMT: Face/Nose/Sinus: Normal nares present Mouth: Yes moist mucous membra keron Eyes: General: appearance normal, both eyes and all related structures Sclera: sclerae normal Pupils: Equal, round and reactive pupils present EOM: EOMs intact bilaterally Resp: Effort & Inspection: normal respiratory effort Auscultation: clear to auscultation bilaterally Cardio: Rate: regular rate Rhythm: regular rhythm Other: S1-S2 present without murmur, rub, ectopy GI: Other: Abdomen soft, nondistended, nontender. Normoactive bowel sounds in all quadrants. Skin: General skin exam: normal color and no rashes or lesions noted Wounds: no wounds Neuro: Cranial nerves: Yes Equal, round and reactive pupils present Speech: normal speech Motor exam (neuro): 5/5 motor strength present throughout Sensory Exam: normal sensation Other: A&O x1 Extrem: Other: trace edema to bilateral lower extremities, symmetric Psych: Mental Status: mental status grossly normal Affect: normal affect Other: Poor insight and judgment, very pleasant. Objective Data Vital Signs Vital Signs: Vital Signs - 24 hr 05/03/25 17:32 05/03/25 17:33 05/03/25 20:00 Temperature Pulse Rate 76 78 62 Respiratory Rate 16 20 Blood Pressure 144/90 H Pulse Oximetry 95 94 Oxygen Delivery Room Air Fraction of Inspired Oxygen 05/03/25 20:40 05/03/25 22:00 05/04/25 07:26 Temperature 97.3 F L 98.0 F Pulse Rate 55 L 62 72 Respiratory Rate 20 20 14 Blood Pressure 133/62 137/60 Pulse Oximetry 94 99 Oxygen Delivery Fraction of Inspired Oxygen 05/04/25 08:12 05/04/25 08:52 05/04/25 08:56 Temperature 98.1 F Pulse Rate 80 74 Respiratory Rate 20 16 16 Blood Pressure 107/55 L Pulse Oximetry 94 94 Oxygen Delivery Room Air Fraction of Inspired Oxygen 05/04/25 09:14 Temperature Pulse Rate 74 Respiratory Rate Blood Pressure Pulse Oximetry Oxygen Delivery Fraction of Inspired Oxygen Intake/Output Intake/Output: Intake & Output 05/01/25 05/02/25 05/03/25 05/04/25 23:59 23:59 22:59 23:59 Intake Total 880 450 990 660 Output Total 1100 800 500 Balance -220 -350 490 660 Meds/Results Medications: Active Medications Generic Name Dose Route Start Last Admin Trade Name Freq PRN Reason Stop Dose Admin Acetaminophen 650 mg 04/28/25 18:50 04/30/25 09:04 Acetaminophen 325 Mg Tablet PO 650 mg Q4H PRN Administration Mild Pain (1-3) or Fever Albuterol 2.5 mg 04/28/25 21:15 05/03/25 12:08 Albuterol Sulfate Neb 2.5 Mg/3 Ml Inh INHALATION 2.5 mg Q6H PRN Administration shortness of breath or wheezing Albuterol/Ipratropium 3 ml 04/28/25 18:50 Ipratropium 0.5 Mg/Albuterol Sulfate 2.5 Mg (Base) Ampul.Neb 3 Ml INHALATION Q6H PRN Shortness Of Breath Or Wheezing Amlodipine Besylate 5 mg 04/29/25 09:00 05/04/25 09:13 Amlodipine Besylate 5 Mg Tablet PO Not Given DAILY MIGUELINA Amoxicillin/Clavulanate Potassium 1 tablet 05/01/25 19:00 05/04/25 08:57 Amoxicillin/Clavulanate K 875-125 Mg Tab PO 05/05/25 09:01 1 tablet Q12HR MIGUELINA Administration Aspirin 81 mg 04/29/25 09:00 05/04/25 08:56 Aspirin 81 Mg Enteric Tablet PO 81 mg DAILY MIGUELINA Administration Atorvastatin Calcium 20 mg 04/29/25 09:00 05/04/25 08:57 Atorvastatin 20 Mg Tablet PO 20 mg DAILY MIGUELINA Administration Benzonatate 100 mg 04/28/25 18:50 04/30/25 09:05 Benzonatate 100 Mg Capsule PO 100 mg TID PRN Administration Cough Bisacodyl 5 mg 04/28/25 18:50 Bisacodyl 5 Mg Tablet Ec PO DAILY PRN Constipation Buspirone HCl 5 mg 04/28/25 21:00 05/04/25 08:57 Buspirone Hcl 5 Mg Tablet PO 5 mg Q12HR MIGUELINA Administration Docusate Sodium 100 mg 04/29/25 09:00 05/04/25 08:56 Docusate Sodium 100 Mg Capsule PO 100 mg BID MIGUELINA Administration Famotidine 20 mg 04/29/25 15:15 05/04/25 08:56 Famotidine 20 Mg Tablet PO 20 mg Q12HR MIGUELINA Administration Fluticasone Propionate 1 spray 04/29/25 09:00 05/04/25 09:05 Fluticasone Propionate 0.05% Na Spr 16 Gm Btl (*Bkc) NASAL Not Given BID MIGUELINA Guaifenesin 600 mg 04/28/25 21:00 05/04/25 08:56 Guaifenesin 12 Hr 600 Mg Tabcr PO 600 mg Q12HR MIGUELINA Administration Heparin Sodium (Porcine) 5,000 units 04/28/25 21:00 05/04/25 08:57 Heparin Sodium 5,000 Units/Ml Vial SUB-Q 5,000 units Q12HR MIGUELINA Administration Losartan Potassium 50 mg 04/29/25 09:00 05/04/25 09:13 Losartan Potassium 50 Mg Tablet PO Not Given DAILY MIGUELINA Melatonin 3 mg 04/28/25 21:00 05/03/25 20:48 Melatonin 3 Mg Tablet PO 3 mg HS MIGUELINA Administration Methimazole 5 mg 04/29/25 09:00 05/04/25 08:57 Methimazole 5 Mg Tab PO 5 mg DAILY MIGUELINA Administration Pantoprazole Sodium 40 mg 04/29/25 09:00 05/04/25 08:56 Pantoprazole 40 Mg Tablet PO 40 mg QAM MIGUELINA Administration Polyethylene Glycol 17 gm 04/29/25 09:00 05/04/25 08:56 Polyethylene Glycol 3350 17 Gm Powd.Pack PO 17 gm QAM MIGUELINA Administration Prednisone 5 mg 05/03/25 09:00 05/04/25 08:57 Prednisone 5 Mg Tablet PO 05/05/25 09:01 5 mg DAILY MIGUELINA Administration Propranolol HCl 10 mg 04/28/25 21:20 05/04/25 09:14 Propranolol Hcl 10 Mg Tablet PO 10 mg BID MIGUELINA Administration Fluticasone/Salmeterol 2 puff 04/29/25 08:00 05/03/25 20:39 Fluticasone/Salmeterol 115-21 Mcg Inhaler 1 Puff INHALATION 2 puff Q12HRT MIGUELINA Administration Sodium Chloride 1 gm 04/29/25 09:00 05/04/25 08:57 Sodium Chloride 1 Gm Tablet PO 05/05/25 09:01 1 gm BID MIGUELINA Administration Tamsulosin HCl 0.8 mg 04/28/25 21:00 11/02/25 20:49 Tamsulosin Hcl 0.4 Mg Capsule PO 0.8 mg HS MIGUELINA Administration Radiology Results: ITS Impressions Head CT 04/28/25 16:49 IMPRESSION: 1. No acute intracranial hemorrhage. No mass effect. 2. Probable chronic ischemic white matter change. 3. Cerebral atrophy appropriate for the patient's age. If symptoms persist or worsen, consider a short-term follow-up study or additional imaging for further assessment. Chest CT 04/28/25 16:55 IMPRESSION: Bilateral probable bronchopneumonia superimposed on chronic lung disease. There are micronodules which are probably infectious, underlying neoplasm is not excluded. Follow-up after treatment is recommended to assess improvement Labs Labs: Laboratory Results - last 24 hr 05/04/25 07:44 WBC 6.0 RBC 3.92 L Hgb 12.1 L Hct 35.8 L MCV 91.3 MCH 30.9 MCHC 33.8 RDW 13.2 Plt Count 191 MPV 8.9 Immature Gran % (Auto) 1.0 H Neut % (Auto) 79.3 H Lymph % (Auto) 11.6 L [place] % (Auto) 7.0 Eos % (Auto) 0.8 Baso % (Auto) 0.3 Lymph # (Auto) 0.69 L [place] # (Auto) 0.4 Eos # (Auto) 0.1 Baso # (Auto) 0.0 Abs Immat Gran (auto) 0.06 H Absolute Neuts (auto) 4.7 Absolute Nucleated RBC 0.000 Nucleated RBC % 0.0 Sodium 128 L Potassium 3.6 Chloride 99 Carbon Dioxide 27 Anion Gap 2 L BUN 25 H Creatinine 0.81 Estim Creat Clear Calc 51 Estimated GFR > 60 Glucose 96 Calcium 8.0 L Total Bilirubin 0.8 AST 34 ALT 31 Alkaline Phosphatase 81 Total Protein 5.6 L Albumin 2.8 L Quality VTE Prophylaxis VTE prophylaxis: pharmacologic ordered
--- NOTE | 2025-05-04 15:32 | WPDNEURCNPN ---
Assessment and Plan Assessment and plan (1) Cognitive impairment: Code(s): R41.89 - Other symptoms and signs involving cognitive functions and awareness Status: Chronic (2) Atrial fibrillation: Code(s): I48.91 - Unspecified atrial fibrillation Status: Chronic (3) Hearing loss, bilateral: Code(s): H91.93 - Unspecified hearing loss, bilateral Status: Acute (4) COPD (chronic obstructive pulmonary disease): Qualifiers: COPD type: unspecified COPD Qualified Code(s): J44.9 - Chronic obstructive pulmonary disease, unspecified Code(s): J44.9 - Chronic obstructive pulmonary disease, unspecified Status: Chronic Plan Based upon the evaluation of the records and discussion with the nursing staff it appears that he is improving. His the metabolic encephalopathy was probably due to COVID infection and now he is getting better. I would like to see him for follow-up in my office in 2-3 months time at which time we can further evaluate his mental status and plan for treatment. Consult date: 05/04/25 HPI: Noé Davila is a 89 year old male Admitted a day after discharge from the hospital on April 28, 2025 and was found to positive for COVID. Patient has some changes in mental status however he is getting better. He has tells me that he is concerned that would like to walk and is not being allowed to walk as much as as he would like to. I noted that he has a walker in the room. He seems rather upset about being in the hospital. He has poor hearing. There is also history of atrial fibrillation chronic obstructive pulmonary disease. He suffers from chronic hyponatremia. On the previous hospitalization it was felt that he may have some underlying vascular dementia MRI of the brain performed on 12/21/2024 had shown severe white matter changes. Ventricles appear also prominent to the extent of raising possibility of mild hydrocephalus versus hydrocephalus ex vacuo. Previously was also noted to have some tremor but that does not seem to be an issue at this time. Review of Systems Review of Systems: All systems reviewed & are unremarkable except as noted in HPI and below [facility] Past Medical History Medical History (Updated 04/29/25 @ 15:17 by Naty Granados APRN) Diastolic CHF Chronic obstructive pulmonary disease CVA (cerebral vascular accident) BPH (benign prostatic hyperplasia) Seasonal allergies Elevated fasting glucose A1c 5.8% on 04/19/2025 Hyperthyroidism without thyroid nodule Hypertension Cerebrovascular disease PSVT (paroxysmal supraventricular tachycardia) Pulmonary emboli Peptic ulcer disease Lumbar radiculopathy Lumbar spondylosis Peripheral vascular disease Depression Seasonal allergies Anemia Atrial fibrillation Anxiety Constipation Dementia Hyperlipidemia Surgical History Surgical History H/O transurethral resection of prostate H/O cardiac catheterization H/O angioplasty Iliac vessels H/O cataract extraction Status post peripheral artery angioplasty with insertion of stent History of cholecystectomy Family History Family History Sibling CHF (congestive heart failure) Other Unknown family medical history Social History Social History Social History: He is a . He is Catholic. 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 Code status: DNR Smoking packs per day: 1 Smoking cigarettes per day: 20.0 Smoking status: Former smoker Second hand tobacco smoke exposure: No Alcohol intake: never Drinks per week: 1 Substance use: never Substance use type: does not use Do You Feel Safe in your Home?: Yes Lack of Transportation: No Lack of Food: Never True Current Housing: I Have Housing Concerned About Future Housing: No Difficulty Paying Gas/Electric Bills: No Difficulty Paying for Meds: No Currently Unemployed: No Education: Grade School Difficulty w/ Childcare or Family Care: No Living arrangements: assisted living Occupation/Education: retired Gender identity (if verbalized by the patient): Male Sexual Orientation (if Verbalized by the Patient): Straight or Heterosexual Spiritual care concerns: Yes Agree to blood products: Yes Meds Home Medications and Allergies Home Medications ?Medication ?Instructions ?Recorded ?Confirmed ?Type aspirin 81 mg tablet,delayed 81 mg PO DAILY 12/12/21 04/28/25 History release polyethylene glycol 3350 17 gram 17 g PO QAM #7 ea 03/15/24 04/28/25 Rx oral powder packet (Miralax) amlodipine 5 mg tablet 5 mg PO DAILY #30 tabs 12/24/24 04/28/25 Rx losartan 100 mg tablet 50 mg PO DAILY 01/22/25 04/28/25 History buspirone 5 mg tablet 5 mg PO Q12HR #60 tabs 01/24/25 04/28/25 Rx docusate sodium 100 mg capsule 100 mg PO BID #30 caps 01/24/25 04/28/25 Rx atorvastatin 40 mg tablet (Lipitor) 20 mg (1/2 x 40 mg) PO DAILY #90 03/04/25 04/28/25 Rx tabs albuterol sulfate 90 mcg/actuation 2 puff inhalation Q4H PRN 03/24/25 04/28/25 History aerosol inhaler (Ventolin HFA) shortness of breath or wheezing benzonatate 200 mg capsule 200 mg PO .Q8HR PRN cough 04/16/25 04/28/25 History fluticasone furoate 100 1 inh inhalation DAILY 04/16/25 04/28/25 History mcg-vilanterol 25 mcg/dose inhalation powder (Breo Ellipta) fluticasone propionate 50 1 spray intranasal BID 04/16/25 04/28/25 History mcg/actuation nasal spray,suspension (24 Hour Allergy Relief) melatonin 3 mg tablet 3 mg PO HS #30 tabs 04/25/25 04/28/25 Rx pantoprazole 40 mg tablet,delayed 40 mg PO QAM #30 tabs 04/25/25 04/28/25 Rx release albuterol sulfate 5 mg/mL(0.5 %) 2.5 mg (0.5 mL) inhalation Q6H PRN 04/27/25 04/28/25 Rx solution for nebulization shortness of breath or wheezing #100 mL doxycycline hyclate 100 mg tablet 100 mg PO BID 6 days #12 tabs 04/27/25 04/28/25 Rx levofloxacin 750 mg tablet 750 mg PO DAILY #6 tabs 04/27/25 04/28/25 Rx methimazole 5 mg tablet 5 mg PO DAILY #30 tabs 04/27/25 04/28/25 Rx nebulizer and compressor #1 ea 04/27/25 05/01/25 Rx (All-In-One Nebulizer System) prednisone 10 mg tablet 10 mg PO DIRECTED #9 tabs 04/27/25 04/28/25 Rx propranolol 10 mg tablet 10 mg PO BID 30 days #60 tabs 04/27/25 04/28/25 Rx sodium chloride 1,000 mg soluble 1,000 mg PO BID 7 days #14 tabs 04/27/25 04/28/25 Rx tablet tamsulosin 0.4 mg capsule 0.8 mg (2 x 0.4 mg) PO HS 30 days 04/27/25 04/28/25 Rx #60 caps Allergies Allergy/AdvReac Type Severity Reaction Status Date / Time No Known Allergies Allergy Verified 04/28/25 20:11 Vital Signs Vital Signs - 24 hr 05/03/25 17:32 05/03/25 17:33 05/03/25 20:00 Temperature Pulse Rate 76 78 62 Respiratory Rate 16 20 Blood Pressure 144/90 H Pulse Oximetry 95 94 Oxygen Delivery Room Air Fraction of Inspired Oxygen 21 05/03/25 20:40 05/03/25 22:00 05/04/25 07:26 Temperature 97.3 F L 98.0 F Pulse Rate 55 L 62 72 Respiratory Rate 20 20 14 Blood Pressure 133/62 137/60 Pulse Oximetry 94 99 Oxygen Delivery Fraction of Inspired Oxygen 05/04/25 08:12 05/04/25 08:52 05/04/25 08:56 Temperature 98.1 F Pulse Rate 80 74 Respiratory Rate 20 16 16 Blood Pressure 107/55 L Pulse Oximetry 94 94 Oxygen Delivery Room Air Fraction of Inspired Oxygen 21 05/04/25 09:14 05/04/25 14:00 Temperature 97.3 F L Pulse Rate 74 70 Respiratory Rate 15 Blood Pressure 132/57 L Pulse Oximetry 97 Oxygen Delivery Fraction of Inspired Oxygen Exam Narrative: Fully conscious alert, no aphasia or dysarthria. Examination head and neck shows no evidence of external trauma. Cranial nerves pupils were equal react to light. Visual ayala by confrontation are normal. There is no facial asymmetry. Facial sensation intact. Other cranial normal limits. Motor system normal power and tone in both upper and lower limbs. No involuntary movements seen. Results Labs 05/04/25 07:44 05/04/25 07:44 Labs: Short CBC 05/04/25 Range/Units 07:44 WBC 6.0 (4.5-10.0) K/mm3 Hgb 12.1 L (14.0-18.0) g/dL Hct 35.8 L (42.0-52.0) % Plt Count 191 (150-375) k/mm3 BMP 05/04/25 07:44 Sodium 128 L Potassium 3.6 Chloride 99 Carbon Dioxide 27 BUN 25 H Creatinine 0.81 Glucose 96 Calcium 8.0 L Liver Function 05/04/25 Range/Units 07:44 Total Bilirubin 0.8 (0.2-1.3) mg/dL AST 34 (17-59) U/L ALT 31 (6-50) U/L Alkaline Phosphatase 81 (38-126) U/L Albumin 2.8 L (3.5-5.1) g/dL
[2025-05-04] MEDS: FLUTICASONE PROPIONATE 0.05% NA SPR 16 GM BTL (*BKC) 1 SPRAY NASAL (16:17)
[2025-05-04] MEDS: FLUTICASONE/SALMETEROL 115-21 MCG INHALER 1 PUFF 2 PUFF INHALATION (20:16)
[2025-05-04] MEDS: MELATONIN 3 MG TABLET PO (20:45)
[2025-05-04] MEDS: TAMSULOSIN HCL 0.4 MG CAPSULE 0.8 MG PO (20:45)
[2025-05-05] VITALS (8 sets, daily range): BP systolic 104–154; BP diastolic 48–68; PULSE 68–98; RESP 16–22; TEMP 36.4–37; O2SAT 92–97
[2025-05-05 04:48] LABS: Hematocrit 36.2 % (42.0-52.0); Hemoglobin 12.0 g/dL (14.0-18.0); Immature Granulocyte Percent A 1.2 % (0-0.5); Lymphocytes Absolute Auto 0.70 K/mm3 (0.9-3.2); Mean Corpuscular HGB Conc 33.1 g/dl (32-36); Mean Corpuscular Hemoglobin 30.6 pg (26-34); Mean Corpuscular Volume 92.3 fl (80-100); Nucleated Red Blood Cells Absolute Auto 0.000 K/mm3 (0.0-0.012); Nucleated Red Blood Cells Perc 0.0 % (0.0-0.2); Platelet Count Result 208 k/mm3 (150-375); Red Blood Count 3.92 M/mm3 (4.6-6.20); White Blood Count 5.9 K/mm3 (4.5-10.0)
[2025-05-05 05:14] LABS: Alanine Aminotransferase 37 U/L (6-50); Albumin Level 2.9 g/dL (3.5-5.1); Alkaline Phosphatase 83 U/L (38-126); Anion Gap 4 mmol/L (4-12); Aspartate Amino Transferase 36 U/L (17-59); Bilirubin,Total 0.8 mg/dL (0.2-1.3); Blood Urea Nitrogen 27 mg/dL (9-20); Calcium 8.0 mg/dL (8.4-10.2); Carbon Dioxide 24 mmol/L (22-30); Chloride 100 mmol/L (98-107); Estimated CRCL calculation 50 ml/min; Estimated Glomerular Filt Rate > 60; Glucose 104 mg/dL (65-110); Potassium 3.8 mmol/L (3.4-5.0); Sodium 128 mmol/L (137-145); Total Protein 5.6 g/dL (6.3-8.2)
[2025-05-05] MEDS: FLUTICASONE/SALMETEROL 115-21 MCG INHALER 1 PUFF 2 PUFF INHALATION ×2 (08:17→20:30)
[2025-05-05] MEDS: guaiFENesin 12 HR 600 MG TABCR PO ×2 (09:47→20:09)
[2025-05-05] MEDS: SODIUM CHLORIDE 1 GM TABLET PO (09:47)
[2025-05-05] MEDS: FAMOTIDINE 20 MG TABLET PO ×2 (09:47→20:10)
[2025-05-05] MEDS: PROPRANOLOL HCL 10 MG TABLET PO ×2 (09:47→16:47)
[2025-05-05] MEDS: ATORVASTATIN 20 MG TABLET PO (09:47)
[2025-05-05] MEDS: DOCUSATE SODIUM 100 MG CAPSULE PO ×2 (09:47→16:48)
[2025-05-05] MEDS: LOSARTAN POTASSIUM 50 MG TABLET PO (09:48)
[2025-05-05] MEDS: PANTOPRAZOLE 40 MG TABLET PO (09:48)
[2025-05-05] MEDS: ASPIRIN 81 MG ENTERIC TABLET PO (09:48)
--- NOTE | 2025-05-05 11:51 | PCNWS ---
Weekly nutritional screen. Patient is tolerating Regular diet with diet supplements of Glucerna shakes BID. No weight loss reported. No nutritional needs at this time.
--- NOTE | 2025-05-05 15:10 | P.PNIM_ITS ---
Progress Note: A&P Assessment and Plan (1) AMS (altered mental status): Qualifiers: Altered mental status type: disorientation Qualified Code(s): R41.0 - Disorientation, unspecified Code(s): R41.82 - Altered mental status, unspecified Status: Acute Assessment and Plan: Patient's reported baseline is A&O x3. Reviewed previous notes from most recent admission, family reported that the patient requires you to speak slowly and use simple terms. Days and years blend together. Recently started to get family members confused and more agitated. Most recently A&O x1 on 04/[address] Head CT completed in the ED on 04/28 which showed no acute findings, chronic findings including probable chronic ischemic white matter changes and cerebral atrophy appropriate for patient's age. Patient tested positive for COVID upon admission on 04/28 which is likely contributing to patient's wor sening confusion. Imaging also concerning for unresolved pneumonia. The patient was also noted to have hyponatremia during his recent stay and was discharged home with a sodium of 131, returning today with a sodium of 126. * head CT unremarkable on 04/28 * tested positive for COVID on 04/28, likely contributing to patient's current alteration * hyponatremia noted during most recent admission, discharged with a sodium of 131. Now 126, could also be contributing. Continue sodium tablets. * Na 129 today, continue NaCl tabs * Urine osm WDL 04/21 & serum osm low 04/21, redrawn 04/26 - serum continues to be low at 271, higher than prior. urine osmolality WDL * Reconsult neurology * Blood cultures preliminary result shows no growth * PT/OT - recommend SNF Pt back to baseline orientation status. (2) COVID: Code(s): U07.1 - COVID-19 Status: Acute Assessment and Plan: Symptom onset unclear. Patient tested positive for COVID on 04/28. Was previously tested on 04/15 which was negative. Some concern for hypoxia noted by the patient's facility, however no hypoxia has been recorded since his arrival in the emergency department. * tested positive for COVID on 04/28 * start Remdesivir 200 mg IVPB x1 then 100 mg x4 for 5 total doses. * no current indication for steroids as the patient is not currently hypoxic * anticoagulation: prophylactic heparin, therapeutic if elevated d-dimer * heparin subQ as prophylaxis * supportive care: Tylenol p.r.n., Tessalon Perles p.r.n., Mucinex miguelina, DuoNebs p.r.n. * monitor VS, O2, and daily labs * Remains off O2 supplementation 05/03: Resdesivir completed. (3) Bronchopneumonia: Code(s): J18.0 - Bronchopneumonia, unspecified organism Status: Acute Assessment and Plan: Patient showed probable viral pneumonitis on CXR from 04/24. CXR repeated on 04/26 which showed bilateral pneumonia, discharged home on Levaquin yesterday (04/27). Chest CT (04/28) showed bilateral probable bronchopneumonia superimposed on chronic lung disease. Patient tested positive for COVID on 04/28. * started on azithromycin and cefepime on 04/28, hold Levaquin course that was prescribed to him at discharge * supportive care * MRSA PCR negative on 04/27/2025 * Switched to oral Augmentin 875-125mg PO Q12hr and Azithro 500mg PO HS 05/03: Continue Augmentin & prednisone. Azithro complete. (4) Hyponatremia: Code(s): E87.1 - Hypo-osmolality and hyponatremia Status: Acute Assessment and Plan: Sodium 131 on upon discharge on 04/27, repeat today was 126. May be contributing to patient's current confusion superimposed on his pre-existing dementia. * continue NaCl 1G b.i.d. * exchange heart healthy diet for regular diet to increased sodium intake * patient recently diagnosed with hyperthyroidism, initiated on treatment during his most recent admission * will forego hyponatremia workup at this time as he recently had 1 completed * previously trialed on IV fluids which improved his sodium, however he developed tachypnea crackles and required Lasix. Will hold off on fluids at this time. * Urine osm WDL 04/21 & serum osm low 04/21, redrawn 04/26, pending * 05/01: 132 05/02: Na 128 today. Serum osmal remains low but higher than last week. Urine osmal WDL. Continue to trend. 05/03: Na 127 today, see above. 05/04: Na 128 05/05: 128 (5) Diastolic CHF: Qualifiers: Heart failure chronicity: chronic Qualified Code(s): I50.32 - Chronic diastolic (congestive) heart failure Code(s): I50.30 - Unspecified diastolic (congestive) heart failure Status: Chronic Assessment and Plan: No evidence of pulmonary edema on chest CT. Patient does have 2+ pitting edema to the bilateral lower extremities. During his most recent admission he received IV fluids due to hyponatremia and developed crackles on exam which required IV Lasix. Given the significance of his bilateral lower extremity edema, will give Lasix 40 mg IV once. Will need reassessment and close mon itoring of his renal function/sodium levels. * Lasix 40 mg x 1 * monitor I&Os and daily weights * monitor renal function and sodium level * BLE edema trace 05/02: BLE trace edema, denies SOB or CP 05/05: No edema, no SOB or CP. (6) COPD (chronic obstructive pulmonary disease): Qualifiers: COPD type: unspecified COPD Qualified Code(s): J44.9 - Chronic obstructive pulmonary disease, unspecified Code(s): J44.9 - Chronic obstructive pulmonary disease, unspecified Status: Chronic Assessment and Plan: No current wheezing on exam. No current concern for exacerbation. * continue home medications : Updated the pt that if he is in need of a nebulizer that they are ordered at a PRN status and that if he is in need, he needs to request one via his nurse. (7) Benign prostatic hyperplasia: Qualifiers: Lower urinary tract symptom presence: symptoms present Lower urinary tract symptom detail: unspecified Qualified Code(s): N40.1 - Benign prostatic hyperplasia with lower urinary tract symptoms Code(s): N40.0 - Benign prostatic hyperplasia without lower urinary tract symptoms Status: Chronic Assessment and Plan: History of BPH with normal PSA. Recently started on tamsulosin on 04/18, increased to 0.8 mg prior to recent discharge. Patient also started on dutasteride. Referred to urology at discharge on 04/26. - bladder scan prn - continue Flomax and dutasteride (8) Hypertension: Qualifiers: Hypertension type: primary hypertension Qualified Code(s): I10 - Essential (primary) hypertension Code(s): I10 - Essential (primary) hypertension Status: Chronic Assessment and Plan: - chronic - continue home medications: Losartan, amlodipine - continue to monitor 05/03: 132/66 05/04: 132/57 (9) Hyperthyroidism without thyroid nodule: Code(s): E05.90 - Thyrotoxicosis, unspecified without thyrotoxic crisis or storm Status: Chronic Assessment and Plan: Recent diagnosis of hypothyroidism during his most recent admission. - previous Labs: 04/19 - TSH <0.015, T4 2.33, free T3 2.92 04/24 - TSH 0.053, T4 2.48, free T3 2.6 - continue methimazole and propranolol - will need f/u outpatient with an cigar head perforator (10) Depression: Qualifiers: Depression Type: unspecified Qualified Code(s): F32.A - Depression, unspecified Code(s): F32.A - Depression, unspecified Status: Chronic Assessment and Plan: History of depression and anxiety. Recently more agitated, attributed to history of dementia and recent illnesses. - continue buspirone (11) Hyperlipidemia: Qualifiers: Hyperlipidemia type: unspecified Qualified Code(s): E78.5 - Hyperlipidemia, unspecified Code(s): E78.5 - Hyperlipidemia, unspecified Status: Chronic Assessment and Plan: - continue atorvastatin (12) Atrial fibrillation: Code(s): I48.91 - Unspecified atrial fibrillation Status: Chronic Assessment and Plan: RVR per RN this AM. To the bedside, bpm 100's-140's, pt sitting up eating breakfast. -Given AM dose of propranolol 10mg for hyperthyroid, upon re-examination, pt in NSR TELE 79bpm 05/03: 78bpm, reg rhythm 05/04: 70bpm, reg rhythm (13) Acid reflux: Code(s): K21.9 - Gastro-esophageal reflux disease without esophagitis Status: Acute Assessment and Plan: Pt reports burning in his upper abd -Pepcid ordered today Plan Diet: Regular DVT Prophylaxis: Heparin subQ IV fluids: None Lines/Tubes: Peripheral IV Code Status: DNR Pending SNF placement: [facility], [facility], [facility], [facility], and [facility] pending -A number of facilities are not taking COVID pts -->Pt's daughters requesting [facility], per CC, authorization process started today 05/05 Time Spent With Patient Time: 60 Subjective Date/time seen: 05/05/25 0915 Interval history: 89 y/o M with PMH of pSVT, PE, PUD, AFib, PVD, COPD, BPH, anemia, anxiety/depression, HLD, and dementia presents here with altered mental status and possible hypoxia. Pt resting in bed upon my arrival. No complaints other than that he had not been getting nebulizer txs. Pending SNF placement, multiple facilities not accepting COVID pts so this has been difficult. Upon re-exam, daughters at the bedside wanting pt to have further imaging to check on his PNA. We had an extensive conversation on the risks vs benefits of this and how he has been medically stable for several days via labs, physical assessment, and VS. They are concerned at the care that the pt will be given once transferred out of the hospital. They wanted to be transferred out to another facility and I explained to them that since he has been medically cleared, that they can do this, but, I would have to discharge him and they would have to take him through another hospital course wherever they choose to go. They ended up deciding to continue to wait here for a COVID accepting SNF, more specifically, [facility]. Per CC, authorization process started today. Review of Systems Review of Systems: All systems reviewed & are unremarkable except as noted in HPI and below (Limited, disoriented) Exam Const: General: comfortable and no acute distress Other: , male, elderly, nontoxic appearance HENMT: Face/Nose/Sinus: Normal nares present Mouth: Yes moist mucous membranes Eyes: General: appearance normal, both eyes and all related structures Sclera: sclerae normal Neck: Neck: supple Resp: Effort & Inspection: normal respiratory effort Auscultation: clear to auscultation bilaterally Cardio: Rate: regular rate Rhythm: regular rhythm Other: S1-S2 present without murmur, rub, ectopy GI: Other: Abdomen soft, nondistended, nontender. Normoactive bowel sounds in all quadrants. Skin: General skin exam: normal color and no rashes or lesions noted Wounds: no wounds Neuro: Cranial nerves: Yes Equal, round and reactive pupils present Speech: normal speech Motor exam (neuro): Normal motor muscle tone present throughout Sensory Exam: normal sensation Other: A&O x1 Psych: Mental Status: mental status grossly normal Affect: normal affect Other: Poor insight and judgment, very pleasant. Objective Data Vital Signs Vital Signs: Vital Signs - 24 hr 05/04/25 16:17 05/04/25 20:00 05/04/25 20:09 Temperature 97.9 F Pulse Rate 70 87 Respiratory Rate 20 Blood Pressure 136/67 Pulse Oximetry 97 Oxygen Delivery Room Air Fraction of Inspired Oxygen 05/05/25 04:45 05/05/25 08:17 05/05/25 09:45 Temperature 97.8 F 98.1 F Pulse Rate 68 68 Respiratory Rate 20 20 16 Blood Pressure 135/64 151/68 H Pulse Oximetry 93 95 Oxygen Delivery Fraction of Inspired Oxygen 05/05/25 09:47 05/05/25 09:47 05/05/25 14:00 Temperature 97.6 F Pulse Rate 68 68 98 Respiratory Rate 16 22 H Blood Pressure 104/48 L Pulse Oximetry 95 93 Oxygen Delivery Room Air Fraction of Inspired Oxygen 21 Intake/Output Intake/Output: Intake & Output 05/02/25 05/03/25 05/04/25 05/05/25 23:59 22:59 23:59 23:59 Intake Total 450 990 900 576 Output Total 800 500 Balance -350 490 900 576 Meds/Results Medications: Active Medications Generic Name Dose Route Start Last Admin Trade Name Freq PRN Reason Stop Dose Admin Acetaminophen 650 mg 04/28/25 18:50 04/30/25 09:04 Acetaminophen 325 Mg Tablet PO 650 mg Q4H PRN Administration Mild Pain (1-3) or Fever Albuterol 2.5 mg 04/28/25 21:15 05/03/25 12:08 Albuterol Sulfate Neb 2.5 Mg/3 Ml Inh INHALATION 2.5 mg Q6H PRN Administration shortness of breath or wheezing Albuterol/Ipratropium 3 ml 04/28/25 18:50 Ipratropium 0.5 Mg/Albuterol Sulfate 2.5 Mg (Base) Ampul.Neb 3 Ml INHALATION Q6H PRN Shortness Of Breath Or Wheezing Amlodipine Besylate 5 mg 04/29/25 09:00 05/05/25 09:47 Amlodipine Besylate 5 Mg Tablet PO 5 mg DAILY MIGUELINA Administration Aspirin 81 mg 04/29/25 09:00 05/05/25 09:48 Aspirin 81 Mg Enteric Tablet PO 81 mg DAILY MIGUELINA Administration Atorvastatin Calcium 20 mg 04/29/25 09:00 05/05/25 09:47 Atorvastatin 20 Mg Tablet PO 20 mg DAILY MIGUELINA Administration Benzonatate 100 mg 04/28/25 18:50 04/30/25 09:05 Benzonatate 100 Mg Capsule PO 100 mg TID PRN Administration Cough Bisacodyl 5 mg 04/28/25 18:50 Bisacodyl 5 Mg Tablet Ec PO DAILY PRN Constipation Buspirone HCl 5 mg 04/28/25 21:00 05/05/25 09:47 Buspirone Hcl 5 Mg Tablet PO 5 mg Q12HR MIGUELINA Administration Docusate Sodium 100 mg 04/29/25 09:00 05/05/25 09:47 Docusate Sodium 100 Mg Capsule PO 100 mg BID MIGUELINA Administration Famotidine 20 mg 04/29/25 15:15 05/05/25 09:47 Famotidine 20 Mg Tablet PO 20 mg Q12HR MIGUELINA Administration Fluticasone Propionate 1 spray 04/29/25 09:00 05/05/25 10:01 Fluticasone Propionate 0.05% Na Spr 16 Gm Btl (*Bkc) NASAL Not Given BID MIGUELINA Guaifenesin 600 mg 04/28/25 21:00 05/05/25 09:47 Guaifenesin 12 Hr 600 Mg Tabcr PO 600 mg Q12HR MIGUELINA Administration Heparin Sodium (Porcine) 5,000 units 04/28/25 21:00 05/05/25 10:01 Heparin Sodium 5,000 Units/Ml Vial SUB-Q 5,000 units Q12HR MIGUELINA Administration Losartan Potassium 50 mg 04/29/25 09:00 05/05/25 09:48 Losartan Potassium 50 Mg Tablet PO 50 mg DAILY MIGUELINA Administration Melatonin 3 mg 04/28/25 21:00 05/04/25 20:45 Melatonin 3 Mg Tablet PO 3 mg HS MIGUELINA Administration Methimazole 5 mg 04/29/25 09:00 05/05/25 09:47 Methimazole 5 Mg Tab PO 5 mg DAILY MIGUELINA Administration Pantoprazole Sodium 40 mg 04/29/25 09:00 05/05/25 09:48 Pantoprazole 40 Mg Tablet PO 40 mg QAM MIGUELINA Administration Polyethylene Glycol 17 gm 04/29/25 09:00 05/05/25 10:02 Polyethylene Glycol 3350 17 Gm Powd.Pack PO 17 gm QAM MIGUELINA Administration Propranolol HCl 10 mg 04/28/25 21:20 05/05/25 09:47 Propranolol Hcl 10 Mg Tablet PO 10 mg BID MIGUELINA Administration Fluticasone/Salmeterol 2 puff 04/29/25 08:00 05/05/25 08:17 Fluticasone/Salmeterol 115-21 Mcg Inhaler 1 Puff INHALATION 2 puff Q12HRT MIGUELINA Administration Tamsulosin HCl 0.8 mg 04/28/25 21:00 05/04/25 20:45 Tamsulosin Hcl 0.4 Mg Capsule PO 0.8 mg HS MIGUELINA Administration Radiology Results: ITS Impressions Head CT 04/28/25 16:49 IMPRESSION: 1. No acute intracranial hemorrhage. No mass effect. 2. Probable chronic ischemic white matter change. 3. Cerebral atrophy appropriate for the patient's age. If symptoms persist or worsen, consider a short-term follow-up study or additional imaging for further assessment. Chest CT 04/28/25 16:55 IMPRESSION: Bilateral probable bronchopneumonia superimposed on chronic lung disease. There are micronodules which are probably infectious, underlying neoplasm is not excluded. Follow-up after treatment is recommended to assess improvement Labs Labs: Laboratory Results - last 24 hr 05/05/25 04:33 WBC 5.9 RBC 3.92 L Hgb 12.0 L Hct 36.2 L MCV 92.3 MCH 30.6 MCHC 33.1 RDW 13.3 Plt Count 208 MPV 9.2 Immature Gran % (Auto) 1.2 H Neut % (Auto) 78.1 H Lymph % (Auto) 11.9 L Barren % (Auto) 7.1 Eos % (Auto) 1.4 Baso % (Auto) 0.3 Lymph # (Auto) 0.70 L Barren # (Auto) 0.4 Eos # (Auto) 0.1 Baso # (Auto) 0.0 Abs Immat Gran (auto) 0.07 H Absolute Neuts (auto) 4.6 Absolute Nucleated RBC 0.000 Nucleated RBC % 0.0 Sodium 128 L Potassium 3.8 Chloride 100 Carbon Dioxide 24 Anion Gap 4 BUN 27 H Creatinine 0.80 Estim Creat Clear Calc 50 Estimated GFR > 60 Glucose 104 Calcium 8.0 L Total Bilirubin 0.8 AST 36 ALT 37 Alkaline Phosphatase 83 Total Protein 5.6 L Albumin 2.9 L Quality VTE Prophylaxis VTE prophylaxis: pharmacologic ordered
[2025-05-05] MEDS: FLUTICASONE PROPIONATE 0.05% NA SPR 16 GM BTL (*BKC) 1 SPRAY NASAL (16:47)
[2025-05-05] MEDS: MELATONIN 3 MG TABLET PO (20:09)
[2025-05-05] MEDS: TAMSULOSIN HCL 0.4 MG CAPSULE 0.8 MG PO (20:09)
[2025-05-06] VITALS (8 sets, daily range): BP systolic 120–145; BP diastolic 54–75; PULSE 70–103; RESP 18–20; TEMP 36.3–37; O2SAT 94–97
[2025-05-06 05:26] LABS: Hematocrit 38.8 % (42.0-52.0); Hemoglobin 12.8 g/dL (14.0-18.0); Immature Granulocyte Percent A 2.3 % (0-0.5); Lymphocytes Absolute Auto 0.47 K/mm3 (0.9-3.2); Mean Corpuscular HGB Conc 33.0 g/dl (32-36); Mean Corpuscular Hemoglobin 30.9 pg (26-34); Mean Corpuscular Volume 93.7 fl (80-100); Nucleated Red Blood Cells Absolute Auto 0.000 K/mm3 (0.0-0.012); Nucleated Red Blood Cells Perc 0.0 % (0.0-0.2); Platelet Count Result 223 k/mm3 (150-375); Red Blood Count 4.14 M/mm3 (4.6-6.20); White Blood Count 7.3 K/mm3 (4.5-10.0)
[2025-05-06 07:21] LABS: Alanine Aminotransferase 52 U/L (6-50); Albumin Level 3.3 g/dL (3.5-5.1); Alkaline Phosphatase 101 U/L (38-126); Anion Gap 5 mmol/L (4-12); Aspartate Amino Transferase 44 U/L (17-59); Bilirubin,Total 0.8 mg/dL (0.2-1.3); Blood Urea Nitrogen 26 mg/dL (9-20); Calcium 8.6 mg/dL (8.4-10.2); Carbon Dioxide 23 mmol/L (22-30); Chloride 99 mmol/L (98-107); Estimated CRCL calculation 46 ml/min; Estimated Glomerular Filt Rate > 60; Glucose 110 mg/dL (65-110); Potassium 4.0 mmol/L (3.4-5.0); Sodium 127 mmol/L (137-145); Total Protein 6.2 g/dL (6.3-8.2)
[2025-05-06] MEDS: FLUTICASONE/SALMETEROL 115-21 MCG INHALER 1 PUFF 2 PUFF INHALATION ×2 (08:45→20:30)
[2025-05-06] MEDS: ASPIRIN 81 MG ENTERIC TABLET PO (09:39)
[2025-05-06] MEDS: FAMOTIDINE 20 MG TABLET PO ×2 (09:39→21:15)
[2025-05-06] MEDS: SODIUM CHLORIDE 1 GM TABLET PO ×2 (09:39→17:15)
[2025-05-06] MEDS: DOCUSATE SODIUM 100 MG CAPSULE PO ×2 (09:39→17:15)
[2025-05-06] MEDS: LOSARTAN POTASSIUM 50 MG TABLET PO (09:39)
[2025-05-06] MEDS: guaiFENesin 12 HR 600 MG TABCR PO ×2 (09:39→21:15)
[2025-05-06] MEDS: PROPRANOLOL HCL 10 MG TABLET PO ×2 (09:39→17:15)
[2025-05-06] MEDS: ATORVASTATIN 20 MG TABLET PO (09:39)
[2025-05-06] MEDS: PANTOPRAZOLE 40 MG TABLET PO (09:41)
[2025-05-06] MEDS: FLUTICASONE PROPIONATE 0.05% NA SPR 16 GM BTL (*BKC) 1 SPRAY NASAL (09:42)
--- NOTE | 2025-05-06 12:12 | PCOTNOTE ---
Patient declined therapy. Encouraged patient to participate but continues to decline. Will continue plan of care.
--- NOTE | 2025-05-06 16:44 | P.PNIM_ITS ---
Progress Note: A&P Assessment and Plan (1) AMS (altered mental status): Qualifiers: Altered mental status type: disorientation Qualified Code(s): R41.0 - Disorientation, unspecified Code(s): R41.82 - Altered mental status, unspecified Status: Acute Assessment and Plan: Patient's reported baseline is A&O x3. Reviewed previous notes from most recent admission, family reported that the patient requires you to speak slowly and use simple terms. Days and years blend together. Recently started to get family members confused and more agitated. Most recently A&O x1 on 04/26 [address] provider [address]. Head CT completed in the ED on 04/28 which showed no acute findings, chronic findings including probable chronic ischemic white matter changes and cerebral atrophy appropriate for patient's age. Patient tested positive for COVID upon admission on 04/28 which is likely contributing to patient's wor sening confusion. Imaging also concerning for unresolved pneumonia. The patient was also noted to have hyponatremia during his recent stay and was discharged home with a sodium of 131, returning today with a sodium of 126. * head CT unremarkable on 04/28 * tested positive for COVID on 04/28, likely contributing to patient's current alteration * hyponatremia noted during most recent admission, discharged with a sodium of 131. Now 126, could also be contributing. Continue sodium tablets. * Urine osm WDL 04/21 & serum osm low 04/21, redrawn 04/26 - serum continues to be low at 271, higher than prior. urine osmolality WDL * Neurology recommendations appreciated * 04/28/2025 blood cultures x2, no growth final. * PT/OT - recommend SNF Mental status waxes and wanes. (2) COVID: Code(s): U07.1 - COVID-19 Status: Acute Assessment and Plan: Symptom onset unclear. Patient tested positive for COVID on 04/28. Was previously tested on 04/15 which was negative. Some concern for hypoxia noted by the patient's facility, however no hypoxia has been recorded since his arrival in the emergency department. * tested positive for COVID on 04/28 * Received 5 days of remdesivir * no current indication for steroids as the patient is not currently hypoxic * anticoagulation: prophylactic heparin, therapeutic if elevated d-dimer * heparin subQ as prophylaxis * supportive care: Tylenol p.r.n., Tessalon Perles p.r.n., Mucinex miguelina, DuoNehernan p.r.n. * monitor VS, O2, and daily labs * Remains off O2 supplementation (3) Bronchopneumonia: Code(s): J18.0 - Bronchopneumonia, unspecified organism Status: Acute Assessment and Plan: Patient showed probable viral pneumonitis on CXR from 04/24. CXR repeated on 04/26 which showed bilateral pneumonia, discharged home on Levaquin yesterday (04/27). Chest CT (04/28) showed bilateral probable bronchopneumonia superimposed on chronic lung disease. Patient tested positive for COVID on 04/28. * started on azithromycin and cefepime on 04/28, switched to Augmentin and azithromycin which finished. * supportive care * MRSA PCR negative on 04/27/2025 (4) Hyponatremia: Code(s): E87.1 - Hypo-osmolality and hyponatremia Status: Acute Assessment and Plan: Sodium 131 on upon discharge on 04/27, re-presented with sodium 126. Unclear if was a contributing factor the patient is delirium. * continue NaCl 1G b.i.d. * exchange heart healthy diet for regular diet to increased sodium intake * patient recently diagnosed with hyperthyroidism, initiated on treatment during his most recent admission * will forego hyponatremia workup at this time as he recently had 1 completed * previously trialed on IV fluids which improved his sodium, however he developed tachypnea crackles and required Lasix. Will hold off on fluids at this time. * Urine osm WDL 04/21 & serum osm low 04/21, redrawn 04/26, pending * Sodium stable, continue to monitor. (5) Diastolic CHF: Qualifiers: Heart failure chronicity: chronic Qualified Code(s): I50.32 - Chronic diastolic (congestive) heart failure Code(s): I50.30 - Unspecified diastolic (congestive) heart failure Status: Chronic Assessment and Plan: No evidence of pulmonary edema on chest CT. Her presented with pitting edema to lower extremities. During his most recent admission he received IV fluids due to hyponatremia and developed crackles on exam which required IV Lasix. * Status post Lasix x1 with improvement. * monitor I&Os and daily weights * monitor renal function and sodium level (6) COPD (chronic obstructive pulmonary disease): Qualifiers: COPD type: unspecified COPD Qualified Code(s): J44.9 - Chronic obstructive pulmonary disease, unspecified Code(s): J44.9 - Chronic obstructive pulmonary disease, unspecified Status: Chronic Assessment and Plan: No current wheezing on exam. No current concern for exacerbation. * continue home medications 05/05: Updated the pt that if he is in need of a nebulizer that they are ordered at a PRN status and that if he is in need, he needs to request one via his nurse. (7) Benign prostatic hyperplasia: Qualifiers: Lower urinary tract symptom presence: symptoms present Lower urinary tract symptom detail: unspecified Qualified Code(s): N40.1 - Benign prostatic hyperplasia with lower urinary tract symptoms Code(s): N40.0 - Benign prostatic hyperplasia without lower urinary tract symptoms Status: Chronic Assessment and Plan: History of BPH with normal PSA. Recently started on tamsulosin on 04/18, increased to 0.8 mg prior to recent discharge. Patient also started on dutasteride. Referred to urology at discharge on 04/26. - bladder scan prn - continue Flomax and dutasteride (8) Hypertension: Qualifiers: Hypertension type: primary hypertension Qualified Code(s): I10 - Essential (primary) hypertension Code(s): I10 - Essential (primary) hypertension Status: Chronic Assessment and Plan: - chronic - continue home medications: Losartan, amlodipine - continue to monitor - blood pressure review on on 05/06/2025, at goal continue to monitor (9) Hyperthyroidism without thyroid nodule: Code(s): E05.90 - Thyrotoxicosis, unspecified without thyrotoxic crisis or storm Status: Chronic Assessment and Plan: Recent diagnosis of hypothyroidism during his most recent admission. - previous Labs: 04/19 - TSH <0.015, T4 2.33, free T3 2.92 04/24 - TSH 0.053, T4 2.48, free T3 2.6 - continue methimazole and propranolol - will need f/u outpatient with an benzene worker (10) Depression: Qualifiers: Depression Type: unspecified Qualified Code(s): F32.A - Depression, unspecified Code(s): F32.A - Depression, unspecified Status: Chronic Assessment and Plan: History of depression and anxiety. Recently more agitated, attributed to history of dementia and recent illnesses. - continue buspirone (11) Hyperlipidemia: Qualifiers: Hyperlipidemia type: unspecified Qualified Code(s): E78.5 - Hyperlipidemia, unspecified Code(s): E78.5 - Hyperlipidemia, unspecified Status: Chronic Assessment and Plan: - continue atorvastatin (12) Atrial fibrillation: Code(s): I48.91 - Unspecified atrial fibrillation Status: Chronic Assessment and Plan: Had AFib with RVR, patient was asymptomatic. After getting his a.m. dose of propanolol he was in normal sinus rhythm. Continue to monitor. (13) Acid reflux: Code(s): K21.9 - Gastro-esophageal reflux disease without esophagitis Status: Acute Assessment and Plan: Complained of burning in his upper abdomen. Pepcid started and patient has no further complaints related to this. Plan Diet: Regular DVT Prophylaxis: Heparin subQ IV fluids: None Lines/Tubes: Peripheral IV Code Status: DNR Pending SNF placement: [facility], [facility], [facility], [facility], and [facility] pending -A number of facilities are not taking COVID pts -->Pt's daughters requesting [facility], per CC, authorization process started on 05/05 Time Spent With Patient Time: H&P per Katie Feng APRN on 04/28/2025 89 y/o M with PMH of pSVT, PE, PUD, AFib, PVD, COPD, BPH, anemia, anxiety/depression, HLD, and dementia presents here with altered mental status and possible hypoxia. The patient presents here from [facility] [place] via EMS on 04/28 for further evaluation of altered mental status and hypoxia. The patient was recently admitted here from 04/17/2025 to 04/27/2025. At that time he was treated for acute on chronic dyspnea and altered mental status in the setting of COPD exacerbation, multifactorial delirium, and multiple comorbidities. He was noted to have new bilateral infiltrates consistent with pneumonia on his CXR from 04/26 for which he was discharged home on Levaquin. Returning today after his facility noted he was increasingly confused and they had some concern for hypoxia. Per EMS, the patient's O2 saturation was 92% upon their arrival. Arrived to the emergency department 100% on room air and A&O x1. Patient is typically A&O x3 at baseline with history of dementia. He currently reports a cough that he developed on day of admission. The patient denied chest pain, shortness a breath, fever, chills, nausea, vomiting, diarrhea. Initial VS at presentation: 98? F, HR 89, RR 23, 158/72, and 100% on RA. ED workup showed: No leukocytosis, hemoglobin 13.5, sodium 126, creatinine 0.88 and GFR >60, glucose 125, lactic 1.1, CRP 1.8, UA unremarkable except for 11-20 RBC. Patient tested positive for COVID upon admission on 04/28, previously negative on 04/15. Head CT showed no acute intracranial hemorrhage, no mass effect and probable chronic ischemic white matter changes and cerebral atrophy appropriate for patient's age. Chest CT showed bilateral probable broncho pneumonia superimposed on chronic lung disease, micro nodules which are probably infectious underlying neoplasm is not excluded. Time with patient: Greater than 35 minutes Subjective Date/time seen: 05/06/25 16:44 Interval history: Discussed with Nursing. No major acute overnight events. Patient confused at times. He reports no complaints to me. Review of Systems Review of Systems: All systems reviewed & are unremarkable except as noted in HPI and below (Subjective) Exam Const: General: comfortable Other: Pleasantly confused HENMT: Mouth: Yes moist mucous membranes Eyes: Pupils: Equal, round and reactive pupils present Neck: Neck: supple Resp: Effort & Inspection: normal respiratory effort Auscultation: clear to auscultation bilaterally Cardio: Rate: regular rate Rhythm: regular rhythm GI: GI Palp: Yes Soft to palpation Neuro: Motor exam (neuro): 5/5 motor strength present throughout Extrem: General: no edema Objective Data Vital Signs Vital Signs: Vital Signs - 24 hr 05/05/25 16:45 05/05/25 16:47 05/05/25 20:02 Temperature 97.7 F Pulse Rate 79 78 Respiratory Rate 18 Blood Pressure 129/66 Pulse Oximetry 97 Oxygen Delivery Room Air 05/05/25 20:17 05/06/25 04:23 05/06/25 08:46 Temperature 98.6 F 97.4 F L Pulse Rate 77 80 103 H Respiratory Rate 20 20 20 Blood Pressure 154/60 H 120/54 L Pulse Oximetry 92 94 Oxygen Delivery 05/06/25 09:39 05/06/25 09:53 05/06/25 14:00 Temperature 98.6 F Pulse Rate 86 74 Respiratory Rate 19 Blood Pressure 145/63 H Pulse Oximetry 97 Oxygen Delivery Room Air Intake/Output Intake/Output: Intake & Output 05/03/25 05/04/25 05/05/25 05/06/25 22:59 23:59 23:59 23:59 Intake Total 990 900 576 880 Output Total 500 Balance 490 900 576 880 Meds/Results Medications: Active Medications Generic Name Dose Route Start Last Admin Trade Name Freq PRN Reason Stop Dose Admin Acetaminophen 650 mg 04/28/25 18:50 04/30/25 09:04 Acetaminophen 325 Mg Tablet PO 650 mg Q4H PRN Administration Mild Pain (1-3) or Fever Albuterol 2.5 mg 04/28/25 21:15 05/03/25 12:08 Albuterol Sulfate Neb 2.5 Mg/3 Ml Inh INHALATION 2.5 mg Q6H PRN Administration shortness of breath or wheezing Albuterol/Ipratropium 3 ml 04/28/25 18:50 Ipratropium 0.5 Mg/Albuterol Sulfate 2.5 Mg (Base) Ampul.Neb 3 Ml INHALATION Q6H PRN Shortness Of Breath Or Wheezing Amlodipine Besylate 5 mg 04/29/25 09:00 05/06/25 09:41 Amlodipine Besylate 5 Mg Tablet PO 5 mg DAILY MIGUELINA Administration Aspirin 81 mg 04/29/25 09:00 05/06/25 09:39 Aspirin 81 Mg Enteric Tablet PO 81 mg DAILY MIGUELINA Administration Atorvastatin Calcium 20 mg 04/29/25 09:00 05/06/25 09:39 Atorvastatin 20 Mg Tablet PO 20 mg DAILY MIGUELINA Administration Benzonatate 100 mg 04/28/25 18:50 04/30/25 09:05 Benzonatate 100 Mg Capsule PO 100 mg TID PRN Administration Cough Bisacodyl 5 mg 04/28/25 18:50 Bisacodyl 5 Mg Tablet Ec PO DAILY PRN Constipation Buspirone HCl 5 mg 04/28/25 21:00 05/06/25 09:39 Buspirone Hcl 5 Mg Tablet PO 5 mg Q12HR MIGUELINA Administration Docusate Sodium 100 mg 04/29/25 09:00 05/06/25 09:39 Docusate Sodium 100 Mg Capsule PO 100 mg BID MIGUELINA Administration Famotidine 20 mg 04/29/25 15:15 05/06/25 09:39 Famotidine 20 Mg Tablet PO 20 mg Q12HR MIGUELINA Administration Fluticasone Propionate 1 spray 04/29/25 09:00 05/06/25 09:42 Fluticasone Propionate 0.05% Na Spr 16 Gm Btl (*Bkc) NASAL 1 spray BID MIGUELINA Administration Guaifenesin 600 mg 04/28/25 21:00 05/06/25 09:39 Guaifenesin 12 Hr 600 Mg Tabcr PO 600 mg Q12HR MIGUELINA Administration Heparin Sodium (Porcine) 5,000 units 04/28/25 21:00 05/06/25 09:42 Heparin Sodium 5,000 Units/Ml Vial SUB-Q 5,000 units Q12HR MIGUELINA Administration Losartan Potassium 50 mg 04/29/25 09:00 05/06/25 09:39 Losartan Potassium 50 Mg Tablet PO 50 mg DAILY MIGUELINA Administration Melatonin 3 mg 04/28/25 21:00 05/05/25 20:09 Melatonin 3 Mg Tablet PO 3 mg HS MIGUELINA Administration Methimazole 5 mg 04/29/25 09:00 05/06/25 09:39 Methimazole 5 Mg Tab PO 5 mg DAILY MIGUELINA Administration Pantoprazole Sodium 40 mg 04/29/25 09:00 05/06/25 09:41 Pantoprazole 40 Mg Tablet PO 40 mg QAM MIGUELINA Administration Polyethylene Glycol 17 gm 04/29/25 09:00 05/06/25 09:42 Polyethylene Glycol 3350 17 Gm Powd.Pack PO 17 gm QAM MIGUELINA Administration Propranolol HCl 10 mg 04/28/25 21:20 05/06/25 09:39 Propranolol Hcl 10 Mg Tablet PO 10 mg BID MIGUELINA Administration Fluticasone/Salmeterol 2 puff 04/29/25 08:00 05/06/25 08:45 Fluticasone/Salmeterol 115-21 Mcg Inhaler 1 Puff INHALATION 2 puff Q12HRT MIGUELINA Administration Sodium Chloride 1 gm 05/06/25 09:00 05/06/25 09:39 Sodium Chloride 1 Gm Tablet PO 1 gm BID MIGUELINA Administration Tamsulosin HCl 0.8 mg 04/28/25 21:00 05/05/25 20:09 Tamsulosin Hcl 0.4 Mg Capsule PO 0.8 mg HS MIGUELINA Administration Radiology Results: ITS Impressions Head CT 04/28/25 16:49 IMPRESSION: 1. No acute intracranial hemorrhage. No mass effect. 2. Probable chronic ischemic white matter change. 3. Cerebral atrophy appropriate for the patient's age. If symptoms persist or worsen, consider a short-term follow-up study or additional imaging for further assessment. Chest CT 04/28/25 16:55 IMPRESSION: Bilateral probable bronchopneumonia superimposed on chronic lung disease. There are micronodules which are probably infectious, underlying neoplasm is not excluded. Follow-up after treatment is recommended to assess improvement Labs Labs: Laboratory Results - last 24 hr 05/06/25 05:14 WBC 7.3 RBC 4.14 L Hgb 12.8 L Hct 38.8 L MCV 93.7 MCH 30.9 MCHC 33.0 RDW 13.5 Plt Count 223 MPV 9.1 Immature Gran % (Auto) 2.3 H Neut % (Auto) 82.0 H Lymph % (Auto) 6.5 L [place] % (Auto) 7.4 Eos % (Auto) 1.4 Baso % (Auto) 0.4 Lymph # (Auto) 0.47 L [place] # (Auto) 0.5 Eos # (Auto) 0.1 Baso # (Auto) 0.0 Abs Immat Gran (auto) 0.17 H Absolute Neuts (auto) 6.0 Absolute Nucleated RBC 0.000 Nucleated RBC % 0.0 Sodium 127 L Potassium 4.0 Chloride 99 Carbon Dioxide 23 Anion Gap 5 BUN 26 H Creatinine 0.87 Estim Creat Clear Calc 46 Estimated GFR > 60 Glucose 110 Calcium 8.6 Total Bilirubin 0.8 AST 44 ALT 52 H Alkaline Phosphatase 101 Total Protein 6.2 L Albumin 3.3 L
[2025-05-06] MEDS: IPRATROPIUM 0.5 MG/ALBUTEROL SULFATE 2.5 MG (BASE) AMPUL.NEB 3 ML INHALATION (18:25)
[2025-05-06] MEDS: MELATONIN 3 MG TABLET PO (21:15)
[2025-05-06] MEDS: TAMSULOSIN HCL 0.4 MG CAPSULE 0.8 MG PO (21:15)
[2025-05-07] VITALS (9 sets, daily range): BP systolic 130–171; BP diastolic 55–72; PULSE 60–88; RESP 16–20; TEMP 36.6–36.9; O2SAT 94–99
[2025-05-07 07:55] LABS: Hematocrit 35.0 % (42.0-52.0); Hemoglobin 12.0 g/dL (14.0-18.0); Immature Granulocyte Percent A 2.5 % (0-0.5); Lymphocytes Absolute Auto 0.35 K/mm3 (0.9-3.2); Mean Corpuscular HGB Conc 34.3 g/dl (32-36); Mean Corpuscular Hemoglobin 31.1 pg (26-34); Mean Corpuscular Volume 90.7 fl (80-100); Nucleated Red Blood Cells Absolute Auto 0.000 K/mm3 (0.0-0.012); Nucleated Red Blood Cells Perc 0.0 % (0.0-0.2); Platelet Count Result 191 k/mm3 (150-375); Red Blood Count 3.86 M/mm3 (4.6-6.20); White Blood Count 4.3 K/mm3 (4.5-10.0)
[2025-05-07 08:14] LABS: Alanine Aminotransferase 42 U/L (6-50); Albumin Level 2.9 g/dL (3.5-5.1); Alkaline Phosphatase 89 U/L (38-126); Anion Gap 5 mmol/L (4-12); Aspartate Amino Transferase 41 U/L (17-59); Bilirubin,Total 0.7 mg/dL (0.2-1.3); Blood Urea Nitrogen 23 mg/dL (9-20); Calcium 8.2 mg/dL (8.4-10.2); Carbon Dioxide 22 mmol/L (22-30); Chloride 99 mmol/L (98-107); Estimated CRCL calculation 51 ml/min; Estimated Glomerular Filt Rate > 60; Glucose 104 mg/dL (65-110); Magnesium 1.9 mg/dL (1.6-2.3); Potassium 3.8 mmol/L (3.4-5.0); Sodium 126 mmol/L (137-145); Total Protein 5.7 g/dL (6.3-8.2)
[2025-05-07] MEDS: FLUTICASONE/SALMETEROL 115-21 MCG INHALER 1 PUFF 2 PUFF INHALATION ×2 (09:51→20:25)
[2025-05-07] MEDS: guaiFENesin 12 HR 600 MG TABCR PO ×2 (10:12→20:29)
[2025-05-07] MEDS: PROPRANOLOL HCL 10 MG TABLET PO ×2 (10:12→17:15)
[2025-05-07] MEDS: PANTOPRAZOLE 40 MG TABLET PO (10:12)
[2025-05-07] MEDS: FAMOTIDINE 20 MG TABLET PO ×2 (10:12→20:29)
[2025-05-07] MEDS: ATORVASTATIN 20 MG TABLET PO (10:12)
[2025-05-07] MEDS: LOSARTAN POTASSIUM 50 MG TABLET PO (10:12)
[2025-05-07] MEDS: ASPIRIN 81 MG ENTERIC TABLET PO (10:12)
[2025-05-07] MEDS: FLUTICASONE PROPIONATE 0.05% NA SPR 16 GM BTL (*BKC) 1 SPRAY NASAL ×2 (10:13→17:16)
[2025-05-07] MEDS: SODIUM CHLORIDE 1 GM TABLET PO ×2 (10:13→17:15)
[2025-05-07] MEDS: DOCUSATE SODIUM 100 MG CAPSULE PO ×2 (10:13→17:16)
[2025-05-07] MEDS: IPRATROPIUM 0.5 MG/ALBUTEROL SULFATE 2.5 MG (BASE) AMPUL.NEB 3 ML INHALATION (11:02)
--- NOTE | 2025-05-07 16:14 | P.PNIM_ITS ---
Progress Note: A&P Assessment and Plan (1) AMS (altered mental status): Qualifiers: Altered mental status type: disorientation Qualified Code(s): R41.0 - Disorientation, unspecified Code(s): R41.82 - Altered mental status, unspecified Status: Acute Assessment and Plan: Patient's reported baseline is A&O x3. Reviewed previous notes from most recent admission, family reported that the patient requires you to speak slowly and use simple terms. Days and years blend together. Recently started to get family members confused and more agitated. Most recently A&O x1 on 04/[address]. Head CT completed in the ED on 04/28 which showed no acute findings, chronic findings including probable chronic ischemic white matter changes and cerebral atrophy appropriate for patient's age. Patient tested positive for COVID upon admission on 04/28 which is likely contributing to patient's wor sening confusion. Imaging also concerning for unresolved pneumonia. The patient was also noted to have hyponatremia during his recent stay and was discharged home with a sodium of 131, returning today with a sodium of 126. * head CT unremarkable on 04/28 * tested positive for COVID on 04/28, likely contributing to patient's current alteration * hyponatremia noted during most recent admission, discharged with a sodium of 131. Now 126, could also be contributing. Continue sodium tablets. * Urine osm WDL 04/21 & serum osm low 04/21, redrawn 04/26 - serum continues to be low at 271, higher than prior. urine osmolality WDL * Neurology recommendations appreciated * 04/28/2025 blood cultures x2, no growth final. * PT/OT - recommend SNF Mental status waxes and wanes. (2) COVID: Code(s): U07.1 - COVID-19 Status: Acute Assessment and Plan: Symptom onset unclear. Patient tested positive for COVID on 04/28. Was previously tested on 04/15 which was negative. Some concern for hypoxia noted by the patient's facility, however no hypoxia has been recorded since his arrival in the emergency department. * tested positive for COVID on 04/28 * Received 5 days of remdesivir * no current indication for steroids as the patient is not currently hypoxic * anticoagulation: prophylactic heparin, therapeutic if elevated d-dimer * heparin subQ as prophylaxis * supportive care: Tylenol p.r.n., Tessalon Perles p.r.n., Mucinex miguelina, DuoNehernan p.r.n. * monitor VS, O2, and daily labs * Remains off O2 supplementation (3) Bronchopneumonia: Code(s): J18.0 - Bronchopneumonia, unspecified organism Status: Acute Assessment and Plan: Patient showed probable viral pneumonitis on CXR from 04/24. CXR repeated on 04/26 which showed bilateral pneumonia, discharged home on Levaquin yesterday (04/27). Chest CT (04/28) showed bilateral probable bronchopneumonia superimposed on chronic lung disease. Patient tested positive for COVID on 04/28. * started on azithromycin and cefepime on 04/28, switched to Augmentin and azithromycin which finished. * supportive care * MRSA PCR negative on 04/27/2025 (4) Hyponatremia: Code(s): E87.1 - Hypo-osmolality and hyponatremia Status: Acute Assessment and Plan: Sodium 131 on upon discharge on 04/27, re-presented with sodium 126. Unclear if was a contributing factor the patient is delirium. * continue NaCl 1G b.i.d. * exchange heart healthy diet for regular diet to increased sodium intake * patient recently diagnosed with hyperthyroidism, initiated on treatment during his most recent admission * will forego hyponatremia workup at this time as he recently had 1 completed * previously trialed on IV fluids which improved his sodium, however he developed tachypnea crackles and required Lasix. Will hold off on fluids at this time. * Urine osm WDL 04/21 & serum osm low 04/21, redrawn 04/26, pending * Sodium stable, continue to monitor. (5) Diastolic CHF: Qualifiers: Heart failure chronicity: chronic Qualified Code(s): I50.32 - Chronic diastolic (congestive) heart failure Code(s): I50.30 - Unspecified diastolic (congestive) heart failure Status: Chronic Assessment and Plan: No evidence of pulmonary edema on chest CT. Her presented with pitting edema to lower extremities. During his most recent admission he received IV fluids due to hyponatremia and developed crackles on exam which required IV Lasix. * Status post Lasix x1 with improvement. * monitor I&Os and daily weights * monitor renal function and sodium level (6) COPD (chronic obstructive pulmonary disease): Qualifiers: COPD type: unspecified COPD Qualified Code(s): J44.9 - Chronic obstructive pulmonary disease, unspecified Code(s): J44.9 - Chronic obstructive pulmonary disease, unspecified Status: Chronic Assessment and Plan: No current wheezing on exam. No current concern for exacerbation. * continue home medications 05/05: Updated the pt that if he is in need of a nebulizer that they are ordered at a PRN status and that if he is in need, he needs to request one via his nurse. (7) Benign prostatic hyperplasia: Qualifiers: Lower urinary tract symptom presence: symptoms present Lower urinary tract symptom detail: unspecified Qualified Code(s): N40.1 - Benign prostatic hyperplasia with lower urinary tract symptoms Code(s): N40.0 - Benign prostatic hyperplasia without lower urinary tract symptoms Status: Chronic Assessment and Plan: History of BPH with normal PSA. Recently started on tamsulosin on 04/18, increased to 0.8 mg prior to recent discharge. Patient also started on dutasteride. Referred to urology at discharge on 04/26. - bladder scan prn - continue Flomax and dutasteride (8) Hypertension: Qualifiers: Hypertension type: primary hypertension Qualified Code(s): I10 - Essential (primary) hypertension Code(s): I10 - Essential (primary) hypertension Status: Chronic Assessment and Plan: - chronic - continue home medications: Losartan, amlodipine - continue to monitor - blood pressure review on on 05/06/2025, at goal continue to monitor (9) Hyperthyroidism without thyroid nodule: Code(s): E05.90 - Thyrotoxicosis, unspecified without thyrotoxic crisis or storm Status: Chronic Assessment and Plan: Recent diagnosis of hypothyroidism during his most recent admission. - previous Labs: 04/19 - TSH <0.015, T4 2.33, free T3 2.92 04/24 - TSH 0.053, T4 2.48, free T3 2.6 - continue methimazole and propranolol - will need f/u outpatient with an counter tacker (10) Depression: Qualifiers: Depression Type: unspecified Qualified Code(s): F32.A - Depression, unspecified Code(s): F32.A - Depression, unspecified Status: Chronic Assessment and Plan: History of depression and anxiety. Recently more agitated, attributed to history of dementia and recent illnesses. - continue buspirone (11) Hyperlipidemia: Qualifiers: Hyperlipidemia type: unspecified Qualified Code(s): E78.5 - Hyperlipidemia, unspecified Code(s): E78.5 - Hyperlipidemia, unspecified Status: Chronic Assessment and Plan: - continue atorvastatin (12) Atrial fibrillation: Code(s): I48.91 - Unspecified atrial fibrillation Status: Chronic Assessment and Plan: Had AFib with RVR, patient was asymptomatic. After getting his a.m. dose of propanolol he was in normal sinus rhythm. Continue to monitor. (13) Acid reflux: Code(s): K21.9 - Gastro-esophageal reflux disease without esophagitis Status: Acute Assessment and Plan: Complained of burning in his upper abdomen. Pepcid started and patient has no further complaints related to this. Plan Diet: Regular DVT Prophylaxis: Heparin subQ IV fluids: None Lines/Tubes: Peripheral IV Code Status: DNR Pending SNF placement: [facility], [facility], [facility], [facility], and [facility] pending -A number of facilities are not taking COVID pts -->Pt's daughters requesting [facility], per CC, authorization process started on 05/05 Time Spent With Patient Time: H&P per Katie Feng APRN on 04/28/2025 89 y/o M with PMH of pSVT, PE, PUD, AFib, PVD, COPD, BPH, anemia, anxiety/depression, HLD, and dementia presents here with altered mental status and possible hypoxia. The patient presents here from [facility] via EMS on 04/28 for further evaluation of altered mental status and hypoxia. The patient was recently admitted here from 04/17/2025 to 04/27/2025. At that time he was treated for acute on chronic dyspnea and altered mental status in the setting of COPD exacerbation, multifactorial delirium, and multiple comorbidities. He was noted to have new bilateral infiltrates consistent with pneumonia on his CXR from 04/26 for which he was discharged home on Levaquin. Returning today after his facility noted he was increasingly confused and they had some concern for hypoxia. Per EMS, the patient's O2 saturation was 92% upon their arrival. Arrived to the emergency department 100% on room air and A&O x1. Patient is typically A&O x3 at baseline with history of dementia. He currently reports a cough that he developed on day of admission. The patient denied chest pain, shortness a breath, fever, chills, nausea, vomiting, diarrhea. Initial VS at presentation: 98? F, HR 89, RR 23, 158/72, and 100% on RA. ED workup showed: No leukocytosis, hemoglobin 13.5, sodium 126, creatinine 0.88 and GFR >60, glucose 125, lactic 1.1, CRP 1.8, UA unremarkable except for 11-20 RBC. Patient tested positive for COVID upon admission on 04/28, previously negative on 04/15. Head CT showed no acute intracranial hemorrhage, no mass effect and probable chronic ischemic white matter changes and cerebral atrophy appropriate for patient's age. Chest CT showed bilateral probable broncho pneumonia superimposed on chronic lung disease, micro nodules which are probably infectious underlying neoplasm is not excluded. Subjective Date/time seen: 05/07/25 16:14 Interval history: Patient's mental status with more clarity today. Denies any symptoms. Resting comfortably. Review of Systems Review of Systems: All systems reviewed & are unremarkable except as noted in HPI and below (Subjective) Exam Const: General: comfortable Other: Pleasantly confused HENMT: Mouth: Yes moist mucous membranes Eyes: Pupils: Equal, round and reactive pupils present Neck: Neck: supple Resp: Effort & Inspection: normal respiratory effort Auscultation: clear to auscultation bilaterally Cardio: Rate: regular rate Rhythm: regular rhythm GI: GI Palp: Yes Soft to palpation Neuro: Motor exam (neuro): 5/5 motor strength present throughout Extrem: General: no edema Objective Data Vital Signs Vital Signs: Vital Signs - 24 hr 05/06/25 17:15 05/06/25 18:21 05/06/25 18:27 Temperature Pulse Rate 79 79 80 Respiratory Rate 18 18 Blood Pressure Pulse Oximetry Oxygen Delivery 05/06/25 20:32 05/07/25 00:32 05/07/25 09:52 Temperature 98 F 97.8 F Pulse Rate 70 60 85 Respiratory Rate 18 16 20 Blood Pressure 135/75 171/72 H Pulse Oximetry 95 98 Oxygen Delivery 05/07/25 10:12 05/07/25 10:15 05/07/25 11:03 Temperature Pulse Rate 88 86 Respiratory Rate 20 Blood Pressure Pulse Oximetry Oxygen Delivery Room Air 05/07/25 11:15 05/07/25 14:00 Temperature 98.5 F Pulse Rate 80 80 Respiratory Rate 20 18 Blood Pressure 130/60 Pulse Oximetry 99 Oxygen Delivery Intake/Output Intake/Output: Intake & Output 05/04/25 05/05/25 05/06/25 05/07/25 23:59 23:59 23:59 23:59 Intake Total 003 382 6704 480 Balance 159 558 0307 480 Meds/Results Medications: Active Medications Generic Name Dose Route Start Last Admin Trade Name Freq PRN Reason Stop Dose Admin Acetaminophen 650 mg 04/28/25 18:50 04/30/25 09:04 Acetaminophen 325 Mg Tablet PO 650 mg Q4H PRN Administration Mild Pain (1-3) or Fever Albuterol 2.5 mg 04/28/25 21:15 05/03/25 12:08 Albuterol Sulfate Neb 2.5 Mg/3 Ml Inh INHALATION 2.5 mg Q6H PRN Administration shortness of breath or wheezing Albuterol/Ipratropium 3 ml 04/28/25 18:50 05/07/25 11:02 Ipratropium 0.5 Mg/Albuterol Sulfate 2.5 Mg (Base) Ampul.Neb 3 Ml INHALATION 3 ml Q6H PRN Administration Shortness Of Breath Or Wheezing Amlodipine Besylate 5 mg 04/29/25 09:00 05/07/25 10:11 Amlodipine Besylate 5 Mg Tablet PO 5 mg DAILY MIGUELINA Administration Aspirin 81 mg 04/29/25 09:00 05/07/25 10:12 Aspirin 81 Mg Enteric Tablet PO 81 mg DAILY MIGUELINA Administration Atorvastatin Calcium 20 mg 04/29/25 09:00 05/07/25 10:12 Atorvastatin 20 Mg Tablet PO 20 mg DAILY MIGUELINA Administration Benzonatate 100 mg 04/28/25 18:50 04/30/25 09:05 Benzonatate 100 Mg Capsule PO 100 mg TID PRN Administration Cough Bisacodyl 5 mg 04/28/25 18:50 Bisacodyl 5 Mg Tablet Ec PO DAILY PRN Constipation Buspirone HCl 5 mg 04/28/25 21:00 05/07/25 10:12 Buspirone Hcl 5 Mg Tablet PO 5 mg Q12HR MIGUELINA Administration Docusate Sodium 100 mg 04/29/25 09:00 05/07/25 10:13 Docusate Sodium 100 Mg Capsule PO 100 mg BID MIGUELINA Administration Famotidine 20 mg 04/29/25 15:15 05/07/25 10:12 Famotidine 20 Mg Tablet PO 20 mg Q12HR MIGUELINA Administration Fluticasone Propionate 1 spray 04/29/25 09:00 05/07/25 10:13 Fluticasone Propionate 0.05% Na Spr 16 Gm Btl (*Bkc) NASAL 1 spray BID MIGUELINA Administration Guaifenesin 600 mg 04/28/25 21:00 05/07/25 10:12 Guaifenesin 12 Hr 600 Mg Tabcr PO 600 mg Q12HR MIGUELINA Administration Heparin Sodium (Porcine) 5,000 units 04/28/25 21:00 05/07/25 10:15 Heparin Sodium 5,000 Units/Ml Vial SUB-Q 5,000 units Q12HR MIGUELINA Administration Losartan Potassium 50 mg 04/29/25 09:00 05/07/25 10:12 Losartan Potassium 50 Mg Tablet PO 50 mg DAILY MIGUELINA Administration Melatonin 3 mg 04/28/25 21:00 05/06/25 21:15 Melatonin 3 Mg Tablet PO 3 mg HS MIGUELINA Administration Methimazole 5 mg 04/29/25 09:00 05/07/25 10:12 Methimazole 5 Mg Tab PO 5 mg DAILY MIGUELINA Administration Pantoprazole Sodium 40 mg 04/29/25 09:00 05/07/25 10:12 Pantoprazole 40 Mg Tablet PO 40 mg QAM MIGUELINA Administration Polyethylene Glycol 17 gm 04/29/25 09:00 05/07/25 10:13 Polyethylene Glycol 3350 17 Gm Powd.Pack PO Not Given QAM MIGUELINA Propranolol HCl 10 mg 04/28/25 21:20 05/07/25 10:12 Propranolol Hcl 10 Mg Tablet PO 10 mg BID MIGUELINA Administration Fluticasone/Salmeterol 2 puff 04/29/25 08:00 05/07/25 09:51 Fluticasone/Salmeterol 115-21 Mcg Inhaler 1 Puff INHALATION 2 puff Q12HRT MIGUELINA Administration Sodium Chloride 1 gm 05/06/25 09:00 05/07/25 10:13 Sodium Chloride 1 Gm Tablet PO 1 gm BID MIGUELINA Administration Tamsulosin HCl 0.8 mg 04/28/25 21:00 05/06/25 21:15 Tamsulosin Hcl 0.4 Mg Capsule PO 0.8 mg HS MIGUELINA Administration Radiology Results: ITS Impressions Head CT 04/28/25 16:49 IMPRESSION: 1. No acute intracranial hemorrhage. No mass effect. 2. Probable chronic ischemic white matter change. 3. Cerebral atrophy appropriate for the patient's age. If symptoms persist or worsen, consider a short-term follow-up study or additional imaging for further assessment. Chest CT 04/28/25 16:55 IMPRESSION: Bilateral probable bronchopneumonia superimposed on chronic lung disease. There are micronodules which are probably infectious, underlying neoplasm is not excluded. Follow-up after treatment is recommended to assess improvement Labs Labs: Laboratory Results - last 24 hr 05/07/25 07:45 WBC 4.3 L RBC 3.86 L Hgb 12.0 L Hct 35.0 L MCV 90.7 MCH 31.1 MCHC 34.3 RDW 13.7 Plt Count 191 MPV 8.9 Immature Gran % (Auto) 2.5 H Neut % (Auto) 75.5 H Lymph % (Auto) 8.1 L [place] % (Auto) 12.0 H Eos % (Auto) 1.4 Baso % (Auto) 0.5 Lymph # (Auto) 0.35 L [place] # (Auto) 0.5 Eos # (Auto) 0.1 Baso # (Auto) 0.0 Abs Immat Gran (auto) 0.11 H Absolute Neuts (auto) 3.3 Absolute Nucleated RBC 0.000 Nucleated RBC % 0.0 Sodium 126 L Potassium 3.8 Chloride 99 Carbon Dioxide 22 Anion Gap 5 BUN 23 H Creatinine 0.76 Estim Creat Clear Calc 51 Estimated GFR > 60 Glucose 104 Calcium 8.2 L Magnesium 1.9 Total Bilirubin 0.7 AST 41 ALT 42 Alkaline Phosphatase 89 Total Protein 5.7 L Albumin 2.9 L
[2025-05-07] MEDS: MELATONIN 3 MG TABLET PO (20:29)
[2025-05-07] MEDS: TAMSULOSIN HCL 0.4 MG CAPSULE 0.8 MG PO (20:29)
[2025-05-08 06:38] VITALS: BP 127/77; PULSE 73; RESP 18; TEMP 36.7; O2SAT 92
[2025-05-08 07:57] LABS: Hematocrit 38.0 % (42.0-52.0); Hemoglobin 12.6 g/dL (14.0-18.0); Mean Corpuscular HGB Conc 33.2 g/dl (32-36); Mean Corpuscular Hemoglobin 30.7 pg (26-34); Mean Corpuscular Volume 92.5 fl (80-100); Platelet Count Result 208 k/mm3 (150-375); Red Blood Count 4.11 M/mm3 (4.6-6.20); White Blood Count 4.1 K/mm3 (4.5-10.0)
[2025-05-08] MEDS: FLUTICASONE/SALMETEROL 115-21 MCG INHALER 1 PUFF 2 PUFF INHALATION ×2 (08:11→20:49)
[2025-05-08 08:57] LABS: Anion Gap 5 mmol/L (4-12); Blood Urea Nitrogen 23 mg/dL (9-20); Calcium 8.2 mg/dL (8.4-10.2); Carbon Dioxide 23 mmol/L (22-30); Chloride 99 mmol/L (98-107); Estimated CRCL calculation 46 ml/min; Estimated Glomerular Filt Rate > 60; Glucose 101 mg/dL (65-110); Magnesium 1.9 mg/dL (1.6-2.3); Potassium 3.9 mmol/L (3.4-5.0); Sodium 127 mmol/L (137-145)
--- NOTE | 2025-05-08 09:07 | P.PNIM_ITS ---
Progress Note: A&P Assessment and Plan (1) AMS (altered mental status): Qualifiers: Altered mental status type: disorientation Qualified Code(s): R41.0 - Disorientation, unspecified Code(s): R41.82 - Altered mental status, unspecified Status: Acute Assessment and Plan: Patient's reported baseline is A&O x3. Reviewed previous notes from most recent admission, family reported that the patient requires you to speak slowly and use simple terms. Days and years blend together. Recently started to get family members confused and more agitated. Most recently A&O x1 on 04/[address] Head CT completed in the ED on 04/28 which showed no acute findings, chronic findings including probable chronic ischemic white matter changes and cerebral atrophy appropriate for patient's age. Patient tested positive for COVID upon admission on 04/28 which is likely contributing to patient's wor sening confusion. Imaging also concerning for unresolved pneumonia. The patient was also noted to have hyponatremia during his recent stay and was discharged home with a sodium of 131, returning today with a sodium of 126. * head CT unremarkable on 04/28 * tested positive for COVID on 04/28, likely contributing to patient's current alteration * hyponatremia noted during most recent admission, discharged with a sodium of 131. Now 126, could also be contributing. Continue sodium tablets. * Urine osm WDL 04/21 & serum osm low 04/21, redrawn 04/26 - serum continues to be low at 271, higher than prior. urine osmolality WDL * Neurology recommendations appreciated * 04/28/2025 blood cultures x2, no growth final. * PT/OT - recommend SNF Mental status waxes and wanes. (2) COVID: Code(s): U07.1 - COVID-19 Status: Acute Assessment and Plan: Symptom onset unclear. Patient tested positive for COVID on 04/28. Was previously tested on 04/15 which was negative. Some concern for hypoxia noted by the patient's facility, however no hypoxia has been recorded since his arrival in the emergency department. * tested positive for COVID on 04/28 * Received 5 days of remdesivir * no current indication for steroids as the patient is not currently hypoxic * anticoagulation: prophylactic heparin, therapeutic if elevated d-dimer * heparin subQ as prophylaxis * supportive care: Tylenol p.r.n., Tessalon Perles p.r.n., Mucinex miguelina, DuoNehernan p.r.n. * monitor VS, O2, and daily labs * Remains off O2 supplementation (3) Bronchopneumonia: Code(s): J18.0 - Bronchopneumonia, unspecified organism Status: Acute Assessment and Plan: Patient showed probable viral pneumonitis on CXR from 04/24. CXR repeated on 04/26 which showed bilateral pneumonia, discharged home on Levaquin yesterday (04/27). Chest CT (04/28) showed bilateral probable bronchopneumonia superimposed on chronic lung disease. Patient tested positive for COVID on 04/28. * started on azithromycin and cefepime on 04/28, switched to Augmentin and azithromycin which finished. * supportive care * MRSA PCR negative on 04/27/2025 (4) Hyponatremia: Code(s): E87.1 - Hypo-osmolality and hyponatremia Status: Acute Assessment and Plan: Sodium 131 on upon discharge on 04/27, re-presented with sodium 126. Unclear if was a contributing factor the patient is delirium. * continue NaCl 1G b.i.d. * exchange heart healthy diet for regular diet to increased sodium intake * patient recently diagnosed with hyperthyroidism, initiated on treatment during his most recent admission * will forego hyponatremia workup at this time as he recently had 1 completed * previously trialed on IV fluids which improved his sodium, however he developed tachypnea crackles and required Lasix. Will hold off on fluids at this time. * Urine osm WDL 04/21 & serum osm low 04/21, redrawn 04/26, pending * Sodium stable, continue to monitor. (5) Diastolic CHF: Qualifiers: Heart failure chronicity: chronic Qualified Code(s): I50.32 - Chronic diastolic (congestive) heart failure Code(s): I50.30 - Unspecified diastolic (congestive) heart failure Status: Chronic Assessment and Plan: No evidence of pulmonary edema on chest CT. Her presented with pitting edema to lower extremities. During his most recent admission he received IV fluids due to hyponatremia and developed crackles on exam which required IV Lasix. * Status post Lasix x1 with improvement. * monitor I&Os and daily weights * monitor renal function and sodium level (6) COPD (chronic obstructive pulmonary disease): Qualifiers: COPD type: unspecified COPD Qualified Code(s): J44.9 - Chronic obstructive pulmonary disease, unspecified Code(s): J44.9 - Chronic obstructive pulmonary disease, unspecified Status: Chronic Assessment and Plan: No current wheezing on exam. No current concern for exacerbation. * continue home medications 05/05: Updated the pt that if he is in need of a nebulizer that they are ordered at a PRN status and that if he is in need, he needs to request one via his nurse. (7) Benign prostatic hyperplasia: Qualifiers: Lower urinary tract symptom presence: symptoms present Lower urinary tract symptom detail: unspecified Qualified Code(s): N40.1 - Benign prostatic hyperplasia with lower urinary tract symptoms Code(s): N40.0 - Benign prostatic hyperplasia without lower urinary tract symptoms Status: Chronic Assessment and Plan: History of BPH with normal PSA. Recently started on tamsulosin on 04/18, increased to 0.8 mg prior to recent discharge. Patient also started on dutasteride. Referred to urology at discharge on 04/26. - bladder scan prn - continue Flomax and dutasteride (8) Hypertension: Qualifiers: Hypertension type: primary hypertension Qualified Code(s): I10 - Essential (primary) hypertension Code(s): I10 - Essential (primary) hypertension Status: Chronic Assessment and Plan: - chronic - continue home medications: Losartan, amlodipine - continue to monitor - blood pressure review on on 05/06/2025, at goal continue to monitor (9) Hyperthyroidism without thyroid nodule: Code(s): E05.90 - Thyrotoxicosis, unspecified without thyrotoxic crisis or storm Status: Chronic Assessment and Plan: Recent diagnosis - previous Labs: 04/19 - TSH <0.015, T4 2.33, free T3 2.92 04/24 - TSH 0.053, T4 2.48, free T3 2.6 - continue methimazole and propranolol - will need f/u outpatient with an counter sales person (10) Depression: Qualifiers: Depression Type: unspecified Qualified Code(s): F32.A - Depression, unspecified Code(s): F32.A - Depression, unspecified Status: Chronic Assessment and Plan: History of depression and anxiety. Recently more agitated, attributed to history of dementia and recent illnesses. - continue buspirone (11) Hyperlipidemia: Qualifiers: Hyperlipidemia type: unspecified Qualified Code(s): E78.5 - Hyperlipidemia, unspecified Code(s): E78.5 - Hyperlipidemia, unspecified Status: Chronic Assessment and Plan: - continue atorvastatin (12) Atrial fibrillation: Code(s): I48.91 - Unspecified atrial fibrillation Status: Chronic Assessment and Plan: Had AFib with RVR, patient was asymptomatic. After getting his a.m. dose of propanolol he was in normal sinus rhythm. Continue to monitor. (13) Acid reflux: Code(s): K21.9 - Gastro-esophageal reflux disease without esophagitis Status: Acute Assessment and Plan: Complained of burning in his upper abdomen. Pepcid started and patient has no further complaints related to this. Plan Diet: Regular DVT Prophylaxis: Heparin subQ IV fluids: None Lines/Tubes: Peripheral IV Code Status: DNR Pending SNF placement: [facility], [facility], [facility], [facility], and [facility]'s swing pending -A number of facilities are not taking COVID pts -->Pt's daughters requesting TOBY, per CC, authorization process started on 05/05 Time Spent With Patient Time: H&P per Katie Feng APRN on 04/28/2025 89 y/o M with PMH of pSVT, PE, PUD, AFib, PVD, COPD, BPH, anemia, anxiety/depression, HLD, and dementia presents here with altered mental status and possible hypoxia. The patient presents here from [facility] via EMS on 04/28 for further evaluation of altered mental status and hypoxia. The patient was recently admitted here from 04/17/2025 to 04/27/2025. At that time he was treated for acute on chronic dyspnea and altered mental status in the setting of COPD exacerbation, multifactorial delirium, and multiple comorbidities. He was noted to have new bilateral infiltrates consistent with pneumonia on his CXR from 04/26 for which he was discharged home on Levaquin. Returning today after his facility noted he was increasingly confused and they had some concern for hypoxia. Per EMS, the patient's O2 saturation was 92% upon their arrival. Arrived to the emergency department 100% on room air and A&O x1. Patient is typically A&O x3 at baseline with history of dementia. He currently reports a cough that he developed on day of admission. The patient denied chest pain, shortness a breath, fever, chills, nausea, vomiting, diarrhea. Initial VS at presentation: 98? F, HR 89, RR 23, 158/72, and 100% on RA. ED workup showed: No leukocytosis, hemoglobin 13.5, sodium 126, creatinine 0.88 and GFR >60, glucose 125, lactic 1.1, CRP 1.8, UA unremarkable except for 11-20 RBC. Patient tested positive for COVID upon admission on 04/28, previously negative on 04/15. Head CT showed no acute intracranial hemorrhage, no mass effect and probable chronic ischemic white matter changes and cerebral atrophy appropriate for patient's age. Chest CT showed bilateral probable broncho pneumonia superimposed on chronic lung disease, micro nodules which are probably infectious underlying neoplasm is not excluded. Subjective Date/time seen: 05/08/25 09:07 Interval history: Patient sitting up. Cooperative an active. Pleasantly confused Review of Systems Review of Systems: All systems reviewed & are unremarkable except as noted in HPI and below (Subjective) Exam Const: General: comfortable Other: Pleasantly confused HENMT: Mouth: Yes moist mucous membranes Eyes: Pupils: Equal, round and reactive pupils present Neck: Neck: supple Resp: Effort & Inspection: normal respiratory effort Auscultation: clear to auscultation bilaterally Cardio: Rate: regular rate Rhythm: regular rhythm GI: GI Palp: Yes Soft to palpation Neuro: Motor exam (neuro): 5/5 motor strength present throughout Extrem: General: no edema Objective Data Vital Signs Vital Signs: Vital Signs - 24 hr 05/07/25 09:52 05/07/25 10:12 05/07/25 10:15 Temperature Pulse Rate 85 88 Respiratory Rate 20 Blood Pressure Pulse Oximetry Oxygen Delivery Room Air 05/07/25 11:03 05/07/25 11:15 05/07/25 14:00 Temperature 98.5 F Pulse Rate 86 80 80 Respiratory Rate 20 20 18 Blood Pressure 130/60 Pulse Oximetry 99 Oxygen Delivery 05/07/25 17:15 05/07/25 20:17 05/07/25 20:25 Temperature 98 F Pulse Rate 80 73 Respiratory Rate 18 Blood Pressure 147/55 H Pulse Oximetry 94 Oxygen Delivery Room Air 05/07/25 20:26 05/08/25 06:38 Temperature 98.1 F Pulse Rate 72 73 Respiratory Rate 17 18 Blood Pressure 127/77 Pulse Oximetry 92 Oxygen Delivery Intake/Output Intake/Output: Intake & Output 05/05/25 05/06/25 05/07/25 05/08/25 23:59 23:59 23:59 23:59 Intake Total 576 1250 480 Balance 576 1250 480 Meds/Results Medications: Active Medications Generic Name Dose Route Start Last Admin Trade Name Freq PRN Reason Stop Dose Admin Acetaminophen 650 mg 04/28/25 18:50 04/30/25 09:04 Acetaminophen 325 Mg Tablet PO 650 mg Q4H PRN Administration Mild Pain (1-3) or Fever Albuterol 2.5 mg 04/28/25 21:15 05/03/25 12:08 Albuterol Sulfate Neb 2.5 Mg/3 Ml Inh INHALATION 2.5 mg Q6H PRN Administration shortness of breath or wheezing Albuterol/Ipratropium 3 ml 04/28/25 18:50 05/07/25 11:02 Ipratropium 0.5 Mg/Albuterol Sulfate 2.5 Mg (Base) Ampul.Neb 3 Ml INHALATION 3 ml Q6H PRN Administration Shortness Of Breath Or Wheezing Amlodipine Besylate 5 mg 04/29/25 09:00 05/07/25 10:11 Amlodipine Besylate 5 Mg Tablet PO 5 mg DAILY MIGUELINA Administration Aspirin 81 mg 04/29/25 09:00 05/07/25 10:12 Aspirin 81 Mg Enteric Tablet PO 81 mg DAILY MIGUELINA Administration Atorvastatin Calcium 20 mg 04/29/25 09:00 05/07/25 10:12 Atorvastatin 20 Mg Tablet PO 20 mg DAILY MIGUELINA Administration Benzonatate 100 mg 04/28/25 18:50 04/30/25 09:05 Benzonatate 100 Mg Capsule PO 100 mg TID PRN Administration Cough Bisacodyl 5 mg 04/28/25 18:50 Bisacodyl 5 Mg Tablet Ec PO DAILY PRN Constipation Buspirone HCl 5 mg 04/28/25 21:00 05/07/25 20:29 Buspirone Hcl 5 Mg Tablet PO 5 mg Q12HR MIGUELINA Administration Docusate Sodium 100 mg 04/29/25 09:00 05/07/25 17:16 Docusate Sodium 100 Mg Capsule PO 100 mg BID MIGUELINA Administration Famotidine 20 mg 04/29/25 15:15 05/07/25 20:29 Famotidine 20 Mg Tablet PO 20 mg Q12HR MIGUELINA Administration Fluticasone Propionate 1 spray 04/29/25 09:00 05/07/25 17:16 Fluticasone Propionate 0.05% Na Spr 16 Gm Btl (*Bkc) NASAL 1 spray BID MIGUELINA Administration Guaifenesin 600 mg 04/28/25 21:00 05/07/25 20:29 Guaifenesin 12 Hr 600 Mg Tabcr PO 600 mg Q12HR MIGUELINA Administration Heparin Sodium (Porcine) 5,000 units 04/28/25 21:00 05/07/25 20:32 Heparin Sodium 5,000 Units/Ml Vial SUB-Q Not Given Q12HR MIGUELINA Losartan Potassium 50 mg 04/29/25 09:00 05/07/25 10:12 Losartan Potassium 50 Mg Tablet PO 50 mg DAILY MIGUELINA Administration Melatonin 3 mg 04/28/25 21:00 05/07/25 20:29 Melatonin 3 Mg Tablet PO 3 mg HS MIGUELINA Administration Methimazole 5 mg 04/29/25 09:00 05/07/25 10:12 Methimazole 5 Mg Tab PO 5 mg DAILY MIGUELINA Administration Pantoprazole Sodium 40 mg 04/29/25 09:00 05/07/25 10:12 Pantoprazole 40 Mg Tablet PO 40 mg QAM MIGUELINA Administration Polyethylene Glycol 17 gm 04/29/25 09:00 05/07/25 10:13 Polyethylene Glycol 3350 17 Gm Powd.Pack PO Not Given QAM MIGUELINA Propranolol HCl 10 mg 04/28/25 21:20 05/07/25 17:15 Propranolol Hcl 10 Mg Tablet PO 10 mg BID MIGUELINA Administration Fluticasone/Salmeterol 2 puff 04/29/25 08:00 05/08/25 08:11 Fluticasone/Salmeterol 115-21 Mcg Inhaler 1 Puff INHALATION 2 puff Q12HRT MIGUELINA Administration Sodium Chloride 1 gm 05/06/25 09:00 05/07/25 17:15 Sodium Chloride 1 Gm Tablet PO 1 gm BID MIGUELINA Administration Tamsulosin HCl 0.8 mg 04/28/25 21:00 05/07/25 20:29 Tamsulosin Hcl 0.4 Mg Capsule PO 0.8 mg HS MIGUELINA Administration Radiology Results: ITS Impressions Head CT 04/28/25 16:49 IMPRESSION: 1. No acute intracranial hemorrhage. No mass effect. 2. Probable chronic ischemic white matter change. 3. Cerebral atrophy appropriate for the patient's age. If symptoms persist or worsen, consider a short-term follow-up study or additional imaging for further assessment. Chest CT 04/28/25 16:55 IMPRESSION: Bilateral probable bronchopneumonia superimposed on chronic lung disease. There are micronodules which are probably infectious, underlying neoplasm is not excluded. Follow-up after treatment is recommended to assess improvement Labs Labs: Laboratory Results - last 24 hr 05/08/25 07:27 WBC 4.1 L RBC 4.11 L Hgb 12.6 L Hct 38.0 L MCV 92.5 MCH 30.7 MCHC 33.2 RDW 13.8 Plt Count 208 MPV 9.5 Sodium 127 L Potassium 3.9 Chloride 99 Carbon Dioxide 23 Anion Gap 5 BUN 23 H Creatinine 0.86 Estim Creat Clear Calc 46 Estimated GFR > 60 Glucose 101 Calcium 8.2 L Magnesium 1.9
[2025-05-08 10:08] VITALS: PULSE 78
[2025-05-08] MEDS: PROPRANOLOL HCL 10 MG TABLET PO ×2 (10:08→17:51)
[2025-05-08] MEDS: DOCUSATE SODIUM 100 MG CAPSULE PO ×2 (10:09→17:51)
[2025-05-08] MEDS: ASPIRIN 81 MG ENTERIC TABLET PO (10:09)
[2025-05-08] MEDS: PANTOPRAZOLE 40 MG TABLET PO (10:09)
[2025-05-08] MEDS: LOSARTAN POTASSIUM 50 MG TABLET PO (10:09)
[2025-05-08] MEDS: guaiFENesin 12 HR 600 MG TABCR PO ×2 (10:09→21:21)
[2025-05-08] MEDS: SODIUM CHLORIDE 1 GM TABLET PO ×2 (10:09→17:51)
[2025-05-08] MEDS: ACETAMINOPHEN 325 MG TABLET 650 MG PO (10:10)
[2025-05-08] MEDS: FAMOTIDINE 20 MG TABLET PO ×2 (10:10→21:21)
[2025-05-08] MEDS: ATORVASTATIN 20 MG TABLET PO (10:10)
[2025-05-08] MEDS: FLUTICASONE PROPIONATE 0.05% NA SPR 16 GM BTL (*BKC) 1 SPRAY NASAL ×2 (10:11→17:51)
[2025-05-08 14:00] VITALS: PULSE 71; RESP 18; TEMP 36.9; O2SAT 92
[2025-05-08 17:51] VITALS: PULSE 78
[2025-05-08 20:00] VITALS: PULSE 66; RESP 20; O2SAT 94
[2025-05-08 20:58] VITALS: BP 115/53; PULSE 66; RESP 20; TEMP 36.5; O2SAT 94
[2025-05-08] MEDS: TAMSULOSIN HCL 0.4 MG CAPSULE 0.8 MG PO (21:20)
[2025-05-08] MEDS: MELATONIN 3 MG TABLET PO (21:21)
[2025-05-09 05:19] VITALS: BP 150/80; PULSE 67; RESP 20; TEMP 36.3; O2SAT 95
[2025-05-09 08:08] VITALS: PULSE 67
[2025-05-09] MEDS: DOCUSATE SODIUM 100 MG CAPSULE PO ×2 (08:08→18:31)
[2025-05-09] MEDS: LOSARTAN POTASSIUM 50 MG TABLET PO (08:08)
[2025-05-09] MEDS: ASPIRIN 81 MG ENTERIC TABLET PO (08:08)
[2025-05-09] MEDS: FAMOTIDINE 20 MG TABLET PO ×2 (08:08→20:50)
[2025-05-09] MEDS: PROPRANOLOL HCL 10 MG TABLET PO ×2 (08:08→18:31)
[2025-05-09] MEDS: ATORVASTATIN 20 MG TABLET PO (08:08)
[2025-05-09] MEDS: SODIUM CHLORIDE 1 GM TABLET PO ×2 (08:08→18:31)
[2025-05-09] MEDS: PANTOPRAZOLE 40 MG TABLET PO (08:08)
[2025-05-09] MEDS: guaiFENesin 12 HR 600 MG TABCR PO ×2 (08:08→20:50)
[2025-05-09] MEDS: FLUTICASONE PROPIONATE 0.05% NA SPR 16 GM BTL (*BKC) 1 SPRAY NASAL ×2 (08:09→18:34)
[2025-05-09] MEDS: FLUTICASONE/SALMETEROL 115-21 MCG INHALER 1 PUFF 2 PUFF INHALATION ×2 (08:12→21:22)
--- NOTE | 2025-05-09 13:53 | P.PNIM_ITS ---
Progress Note: A&P Assessment and Plan (1) AMS (altered mental status): Qualifiers: Altered mental status type: disorientation Qualified Code(s): R41.0 - Disorientation, unspecified Code(s): R41.82 - Altered mental status, unspecified Status: Acute Assessment and Plan: Patient's reported baseline is A&O x3. Reviewed previous notes from most recent admission, family reported that the patient requires you to speak slowly and use simple terms. Days and years blend together. Recently started to get family members confused and more agitated. Most recently A&O x1 on 04/[address] Head CT completed in the ED on 04/28 which showed no acute findings, chronic findings including probable chronic ischemic white matter changes and cerebral atrophy appropriate for patient's age. Patient tested positive for COVID upon admission on 04/28 which is likely contributing to patient's wor sening confusion. Imaging also concerning for unresolved pneumonia. The patient was also noted to have hyponatremia during his recent stay and was discharged home with a sodium of 131, returning today with a sodium of 126. * head CT unremarkable on 04/28 * tested positive for COVID on 04/28, likely contributing to patient's current alteration * hyponatremia noted during most recent admission, discharged with a sodium of 131. Now 126, could also be contributing. Continue sodium tablets. * Urine osm WDL 04/21 & serum osm low 04/21, redrawn 04/26 - serum continues to be low at 271, higher than prior. urine osmolality WDL * Neurology recommendations appreciated * 04/28/2025 blood cultures x2, no growth final. * PT/OT - recommend SNF Mental status waxes and wanes. (2) COVID: Code(s): U07.1 - COVID-19 Status: Acute Assessment and Plan: Symptom onset unclear. Patient tested positive for COVID on 04/28. Was previously tested on 04/15 which was negative. Some concern for hypoxia noted by the patient's facility, however no hypoxia has been recorded since his arrival in the emergency department. * tested positive for COVID on 04/28 * Received 5 days of remdesivir * no current indication for steroids as the patient is not currently hypoxic * anticoagulation: prophylactic heparin, therapeutic if elevated d-dimer * heparin subQ as prophylaxis * supportive care: Tylenol p.r.n., Tessalon Perles p.r.n., Mucinex miguelina, DuoNehernan p.r.n. * monitor VS, O2, and daily labs * Remains off O2 supplementation (3) Bronchopneumonia: Code(s): J18.0 - Bronchopneumonia, unspecified organism Status: Acute Assessment and Plan: Patient showed probable viral pneumonitis on CXR from 04/24. CXR repeated on 04/26 which showed bilateral pneumonia, discharged home on Levaquin yesterday (04/27). Chest CT (04/28) showed bilateral probable bronchopneumonia superimposed on chronic lung disease. Patient tested positive for COVID on 04/28. * started on azithromycin and cefepime on 04/28, switched to Augmentin and azithromycin which finished. * supportive care * MRSA PCR negative on 04/27/2025 (4) Hyponatremia: Code(s): E87.1 - Hypo-osmolality and hyponatremia Status: Acute Assessment and Plan: Sodium 131 on upon discharge on 04/27, re-presented with sodium 126. Unclear if was a contributing factor the patient is delirium. * continue NaCl 1G b.i.d. * exchange heart healthy diet for regular diet to increased sodium intake * patient recently diagnosed with hyperthyroidism, initiated on treatment during his most recent admission * will forego hyponatremia workup at this time as he recently had 1 completed * previously trialed on IV fluids which improved his sodium, however he developed tachypnea crackles and required Lasix. Will hold off on fluids at this time. * Urine osm WDL 04/21 & serum osm low 04/21, redrawn 04/26, pending * Sodium stable, continue to monitor. (5) Diastolic CHF: Qualifiers: Heart failure chronicity: chronic Qualified Code(s): I50.32 - Chronic diastolic (congestive) heart failure Code(s): I50.30 - Unspecified diastolic (congestive) heart failure Status: Chronic Assessment and Plan: No evidence of pulmonary edema on chest CT. Her presented with pitting edema to lower extremities. During his most recent admission he received IV fluids due to hyponatremia and developed crackles on exam which required IV Lasix. * Status post Lasix x1 with improvement. * monitor I&Os and daily weights * monitor renal function and sodium level (6) COPD (chronic obstructive pulmonary disease): Qualifiers: COPD type: unspecified COPD Qualified Code(s): J44.9 - Chronic obstructive pulmonary disease, unspecified Code(s): J44.9 - Chronic obstructive pulmonary disease, unspecified Status: Chronic Assessment and Plan: No current wheezing on exam. No current concern for exacerbation. * continue home medications 05/05: Updated the pt that if he is in need of a nebulizer that they are ordered at a PRN status and that if he is in need, he needs to request one via his nurse. (7) Benign prostatic hyperplasia: Qualifiers: Lower urinary tract symptom presence: symptoms present Lower urinary tract symptom detail: unspecified Qualified Code(s): N40.1 - Benign prostatic hyperplasia with lower urinary tract symptoms Code(s): N40.0 - Benign prostatic hyperplasia without lower urinary tract symptoms Status: Chronic Assessment and Plan: History of BPH with normal PSA. Recently started on tamsulosin on 04/18, increased to 0.8 mg prior to recent discharge. Patient also started on dutasteride. Referred to urology at discharge on 04/26. - bladder scan prn - continue Flomax and dutasteride (8) Hypertension: Qualifiers: Hypertension type: primary hypertension Qualified Code(s): I10 - Essential (primary) hypertension Code(s): I10 - Essential (primary) hypertension Status: Chronic Assessment and Plan: - chronic - continue home medications: Losartan, amlodipine - continue to monitor - blood pressure review on on 05/06/2025, at goal continue to monitor (9) Hyperthyroidism without thyroid nodule: Code(s): E05.90 - Thyrotoxicosis, unspecified without thyrotoxic crisis or storm Status: Chronic Assessment and Plan: Recent diagnosis - previous Labs: 04/19 - TSH <0.015, T4 2.33, free T3 2.92 04/24 - TSH 0.053, T4 2.48, free T3 2.6 - continue methimazole and propranolol - will need f/u outpatient with an disability coordinator (10) Depression: Qualifiers: Depression Type: unspecified Qualified Code(s): F32.A - Depression, unspecified Code(s): F32.A - Depression, unspecified Status: Chronic Assessment and Plan: History of depression and anxiety. Recently more agitated, attributed to history of dementia and recent illnesses. - continue buspirone (11) Hyperlipidemia: Qualifiers: Hyperlipidemia type: unspecified Qualified Code(s): E78.5 - Hyperlipidemia, unspecified Code(s): E78.5 - Hyperlipidemia, unspecified Status: Chronic Assessment and Plan: - continue atorvastatin (12) Atrial fibrillation: Code(s): I48.91 - Unspecified atrial fibrillation Status: Chronic Assessment and Plan: Had AFib with RVR, patient was asymptomatic. After getting his a.m. dose of propanolol he was in normal sinus rhythm. Continue to monitor. (13) Acid reflux: Code(s): K21.9 - Gastro-esophageal reflux disease without esophagitis Status: Acute Assessment and Plan: Complained of burning in his upper abdomen. Pepcid started and patient has no further complaints related to this. Plan Diet: Regular DVT Prophylaxis: Heparin subQ IV fluids: None Lines/Tubes: Peripheral IV Code Status: DNR Pending SNF placement: See care coordination notes. Anticipate discharge soon Time Spent With Patient Time: H&P per Katie Feng APRN on 04/28/2025 89 y/o M with PMH of pSVT, PE, PUD, AFib, PVD, COPD, BPH, anemia, anxiety/depression, HLD, and dementia presents here with altered mental status and possible hypoxia. The patient presents here from [facility] via EMS on 04/28 for further evaluation of altered mental status and hypoxia. The patient was recently admitted here from 04/17/2025 to 04/27/2025. At that time he was treated for acute on chronic dyspnea and altered mental status in the setting of COPD exacerbation, multifactorial delirium, and multiple comorbidities. He was noted to have new bilateral infiltrates consistent with pneumonia on his CXR from 04/26 for which he was discharged home on Levaquin. Returning today after his facility noted he was increasingly confused and they had some concern for hypoxia. Per EMS, the patient's O2 saturation was 92% upon their arrival. Arrived to the emergency department 100% on room air and A&O x1. Patient is typically A&O x3 at baseline with history of dementia. He currently reports a cough that he developed on day of admission. The patient denied chest pain, shortness a breath, fever, chills, nausea, vomiting, diarrhea. Initial VS at presentation: 98? F, HR 89, RR 23, 158/72, and 100% on RA. ED workup showed: No leukocytosis, hemoglobin 13.5, sodium 126, creatinine 0.88 and GFR >60, glucose 125, lactic 1.1, CRP 1.8, UA unremarkable except for 11-20 RBC. Patient tested positive for COVID upon admission on 04/28, previously negative on 04/15. Head CT showed no acute intracranial hemorrhage, no mass effect and probable chronic ischemic white matter changes and cerebral atrophy appropriate for patient's age. Chest CT showed bilateral probable broncho pneumonia superimposed on chronic lung disease, micro nodules which are probably infectious underlying neoplasm is not excluded. Subjective Date/time seen: 05/09/25 13:53 Interval history: Patient sitting up. Cooperative an active. Pleasantly confused. Denies shortness of breath, chest pain, pain anywhere else. Review of Systems Review of Systems: All systems reviewed & are unremarkable except as noted in HPI and below (Subjective) Exam Const: General: comfortable Other: Pleasantly confused HENMT: Mouth: Yes moist mucous membranes Eyes: Pupils: Equal, round and reactive pupils present Neck: Neck: supple Resp: Effort & Inspection: normal respiratory effort Auscultation: clear to auscultation bilaterally Cardio: Rate: regular rate Rhythm: regular rhythm GI: GI Palp: Yes Soft to palpation Neuro: Motor exam (neuro): 5/5 motor strength present throughout Extrem: General: no edema Objective Data Vital Signs Vital Signs: Vital Signs - 24 hr 05/08/25 14:00 05/08/25 17:51 05/08/25 20:00 Temperature 98.4 F Pulse Rate 71 78 66 Respiratory Rate 18 20 Blood Pressure Pulse Oximetry 92 94 Oxygen Delivery Room Air Fraction of Inspired Oxygen 21 05/08/25 20:58 05/09/25 05:19 05/09/25 08:00 Temperature 97.7 F 97.4 F L Pulse Rate 66 67 Respiratory Rate 20 20 Blood Pressure 115/53 L 150/80 H Pulse Oximetry 94 95 Oxygen Delivery Room Air Fraction of Inspired Oxygen 05/09/25 08:08 Temperature Pulse Rate 67 Respiratory Rate Blood Pressure Pulse Oximetry Oxygen Delivery Fraction of Inspired Oxygen Intake/Output Intake/Output: Intake & Output 05/06/25 05/07/25 05/08/25 05/09/25 23:59 23:59 23:59 23:59 Intake Total 1250 480 680 290 Output Total 2 Balance 1250 480 680 288 Meds/Results Medications: Active Medications Generic Name Dose Route Start Last Admin Trade Name Freq PRN Reason Stop Dose Admin Acetaminophen 650 mg 04/28/25 18:50 05/08/25 10:10 Acetaminophen 325 Mg Tablet PO 650 mg Q4H PRN Administration Mild Pain (1-3) or Fever Albuterol 2.5 mg 04/28/25 21:15 05/03/25 12:08 Albuterol Sulfate Neb 2.5 Mg/3 Ml Inh INHALATION 2.5 mg Q6H PRN Administration shortness of breath or wheezing Albuterol/Ipratropium 3 ml 04/28/25 18:50 05/07/25 11:02 Ipratropium 0.5 Mg/Albuterol Sulfate 2.5 Mg (Base) Ampul.Neb 3 Ml INHALATION 3 ml Q6H PRN Administration Shortness Of Breath Or Wheezing Amlodipine Besylate 5 mg 04/29/25 09:00 05/09/25 08:08 Amlodipine Besylate 5 Mg Tablet PO 5 mg DAILY MIGUELINA Administration Aspirin 81 mg 04/29/25 09:00 05/09/25 08:08 Aspirin 81 Mg Enteric Tablet PO 81 mg DAILY MIGUELINA Administration Atorvastatin Calcium 20 mg 04/29/25 09:00 05/09/25 08:08 Atorvastatin 20 Mg Tablet PO 20 mg DAILY MIGUELINA Administration Benzonatate 100 mg 04/28/25 18:50 04/30/25 09:05 Benzonatate 100 Mg Capsule PO 100 mg TID PRN Administration Cough Bisacodyl 5 mg 04/28/25 18:50 Bisacodyl 5 Mg Tablet Ec PO DAILY PRN Constipation Buspirone HCl 5 mg 04/28/25 21:00 05/09/25 08:08 Buspirone Hcl 5 Mg Tablet PO 5 mg Q12HR MIGULEINA Administration Docusate Sodium 100 mg 04/29/25 09:00 05/09/25 08:08 Docusate Sodium 100 Mg Capsule PO 100 mg BID MIGUELINA Administration Famotidine 20 mg 04/29/25 15:15 05/09/25 08:08 Famotidine 20 Mg Tablet PO 20 mg Q12HR MIGUELINA Administration Fluticasone Propionate 1 spray 04/29/25 09:00 05/09/25 08:09 Fluticasone Propionate 0.05% Na Spr 16 Gm Btl (*Bkc) NASAL 1 spray BID MIGUELINA Administration Guaifenesin 600 mg 10/28/25 21:00 05/09/25 08:08 Guaifenesin 12 Hr 600 Mg Tabcr PO 600 mg Q12HR MIGUELINA Administration Heparin Sodium (Porcine) 5,000 units 04/28/25 21:00 05/09/25 08:10 Heparin Sodium 5,000 Units/Ml Vial SUB-Q 5,000 units Q12HR MIGUELINA Administration Losartan Potassium 50 mg 04/29/25 09:00 05/09/25 08:08 Losartan Potassium 50 Mg Tablet PO 50 mg DAILY MIGUELINA Administration Melatonin 3 mg 04/28/25 21:00 05/08/25 21:21 Melatonin 3 Mg Tablet PO 3 mg HS MIGUELINA Administration Methimazole 5 mg 04/29/25 09:00 05/09/25 08:08 Methimazole 5 Mg Tab PO 5 mg DAILY MIGUELINA Administration Pantoprazole Sodium 40 mg 04/29/25 09:00 05/09/25 08:08 Pantoprazole 40 Mg Tablet PO 40 mg QAM MIGUELINA Administration Polyethylene Glycol 17 gm 04/29/25 09:00 05/08/25 10:10 Polyethylene Glycol 3350 17 Gm Powd.Pack PO 17 gm QAM MIGUELINA Administration Propranolol HCl 10 mg 04/28/25 21:20 05/09/25 08:08 Propranolol Hcl 10 Mg Tablet PO 10 mg BID MIGUELINA Administration Fluticasone/Salmeterol 2 puff 04/29/25 08:00 05/09/25 08:12 Fluticasone/Salmeterol 115-21 Mcg Inhaler 1 Puff INHALATION 2 puff Q12HRT MIGUELINA Administration Sodium Chloride 1 gm 05/06/25 09:00 05/09/25 08:08 Sodium Chloride 1 Gm Tablet PO 1 gm BID MIGUELINA Administration Tamsulosin HCl 0.8 mg 04/28/25 21:00 05/08/25 21:20 Tamsulosin Hcl 0.4 Mg Capsule PO 0.8 mg HS MIGUELINA Administration Radiology Results: ITS Impressions Head CT 04/28/25 16:49 IMPRESSION: 1. No acute intracranial hemorrhage. No mass effect. 2. Probable chronic ischemic white matter change. 3. Cerebral atrophy appropriate for the patient's age. If symptoms persist or worsen, consider a short-term follow-up study or additional imaging for further assessment. Chest CT 04/28/25 16:55 IMPRESSION: Bilateral probable bronchopneumonia superimposed on chronic lung disease. There are micronodules which are probably infectious, underlying neoplasm is not excluded. Follow-up after treatment is recommended to assess improvement Labs Labs: Laboratory Results - last 24 hr 05/08/25 07:27 WBC 4.1 L RBC 4.11 L Hgb 12.6 L Hct 38.0 L MCV 92.5 MCH 30.7 MCHC 33.2 RDW 13.8 Plt Count 208 MPV 9.5 Sodium 127 L Potassium 3.9 Chloride 99 Carbon Dioxide 23 Anion Gap 5 BUN 23 H Creatinine 0.86 Estim Creat Clear Calc 46 Estimated GFR > 60 Glucose 101 Calcium 8.2 L Magnesium 1.9
[2025-05-09 14:00] VITALS: BP 150/56; PULSE 80; RESP 18; TEMP 36.3; O2SAT 98
--- NOTE | 2025-05-09 14:32 | PCPTNOTE ---
Patient refused therapy at this time due to feeling tired. Patient was educated on the benefits however continued to refused. Will attempt at a later day.
[2025-05-09 18:31] VITALS: PULSE 80
[2025-05-09 20:00] VITALS: PULSE 68; RESP 20; O2SAT 93
[2025-05-09 20:45] VITALS: BP 129/60; PULSE 68; RESP 20; TEMP 37.2; O2SAT 93
[2025-05-09] MEDS: MELATONIN 3 MG TABLET PO (20:50)
[2025-05-09] MEDS: TAMSULOSIN HCL 0.4 MG CAPSULE 0.8 MG PO (20:50)
[2025-05-10] VITALS (8 sets, daily range): BP systolic 105–142; BP diastolic 67–90; PULSE 81–94; RESP 16–18; TEMP 36.6–36.8; O2SAT 92–95
[2025-05-10 07:19] LABS: Alanine Aminotransferase 31 U/L (6-50); Albumin Level 2.9 g/dL (3.5-5.1); Alkaline Phosphatase 97 U/L (38-126); Anion Gap 4 mmol/L (4-12); Aspartate Amino Transferase 28 U/L (17-59); Bilirubin,Total 0.7 mg/dL (0.2-1.3); Blood Urea Nitrogen 25 mg/dL (9-20); Calcium 8.2 mg/dL (8.4-10.2); Carbon Dioxide 22 mmol/L (22-30); Chloride 103 mmol/L (98-107); Estimated CRCL calculation 49 ml/min; Estimated Glomerular Filt Rate > 60; Glucose 109 mg/dL (65-110); Magnesium 2.0 mg/dL (1.6-2.3); Potassium 3.9 mmol/L (3.4-5.0); Sodium 129 mmol/L (137-145); Total Protein 5.8 g/dL (6.3-8.2)
[2025-05-10] MEDS: FLUTICASONE/SALMETEROL 115-21 MCG INHALER 1 PUFF 2 PUFF INHALATION ×2 (07:20→21:32)
[2025-05-10] MEDS: PANTOPRAZOLE 40 MG TABLET PO (08:20)
[2025-05-10] MEDS: DOCUSATE SODIUM 100 MG CAPSULE PO ×2 (08:20→17:13)
[2025-05-10] MEDS: FAMOTIDINE 20 MG TABLET PO ×2 (08:20→21:09)
[2025-05-10] MEDS: LOSARTAN POTASSIUM 50 MG TABLET PO (08:20)
[2025-05-10] MEDS: PROPRANOLOL HCL 10 MG TABLET PO ×2 (08:20→17:13)
[2025-05-10] MEDS: guaiFENesin 12 HR 600 MG TABCR PO ×2 (08:20→21:09)
[2025-05-10] MEDS: ASPIRIN 81 MG ENTERIC TABLET PO (08:20)
[2025-05-10] MEDS: ATORVASTATIN 20 MG TABLET PO (08:20)
[2025-05-10] MEDS: SODIUM CHLORIDE 1 GM TABLET PO ×2 (08:20→17:13)
[2025-05-10] MEDS: FLUTICASONE PROPIONATE 0.05% NA SPR 16 GM BTL (*BKC) 1 SPRAY NASAL ×2 (08:21→17:13)
--- NOTE | 2025-05-10 16:36 | P.PNIM_ITS ---
Progress Note: A&P Assessment and Plan (1) AMS (altered mental status): Qualifiers: Altered mental status type: disorientation Qualified Code(s): R41.0 - Disorientation, unspecified Code(s): R41.82 - Altered mental status, unspecified Status: Acute Assessment and Plan: Patient's reported baseline is A&O x3. Reviewed previous notes from most recent admission, family reported that the patient requires you to speak slowly and use simple terms. Days and years blend together. Recently started to get family members confused and more agitated. Most recently A&O x1 on 04/[address] Head CT completed in the ED on 04/28 which showed no acute findings, chronic findings including probable chronic ischemic white matter changes and cerebral atrophy appropriate for patient's age. Patient tested positive for COVID upon admission on 04/28 which is likely contributing to patient's wor sening confusion. Imaging also concerning for unresolved pneumonia. The patient was also noted to have hyponatremia during his recent stay and was discharged home with a sodium of 131, returning today with a sodium of 126. * head CT unremarkable on 04/28 * tested positive for COVID on 04/28, likely contributing to patient's current alteration * hyponatremia noted during most recent admission, discharged with a sodium of 131. Now 126, could also be contributing. Continue sodium tablets. * Urine osm WDL 04/21 & serum osm low 04/21, redrawn 04/26 - serum continues to be low at 271, higher than prior. urine osmolality WDL * Neurology recommendations appreciated * 04/28/2025 blood cultures x2, no growth final. * PT/OT - recommend SNF Mental status waxes and wanes. For the past 3 days he has been stable, confused but pleasant and comfortable. Feeding himself. (2) COVID: Code(s): U07.1 - COVID-19 Status: Acute Assessment and Plan: Symptom onset unclear. Patient tested positive for COVID on 04/28. Was previously tested on 04/15 which was negative. Some concern for hypoxia noted by the patient's facility, however no hypoxia has been recorded since his arrival in the emergency department. * tested positive for COVID on 04/28 * Received 5 days of remdesivir * no current indication for steroids as the patient is not currently hypoxic * anticoagulation: prophylactic heparin, therapeutic if elevated d-dimer * heparin subQ as prophylaxis * supportive care: Tylenol p.r.n., Tessalon Perles p.r.n., Mucinex miguelina, DuoNebs p.r.n. * monitor VS, O2, and daily labs * Remains off O2 supplementation (3) Bronchopneumonia: Code(s): J18.0 - Bronchopneumonia, unspecified organism Status: Acute Assessment and Plan: Patient showed probable viral pneumonitis on CXR from 04/24. CXR repeated on 04/26 which showed bilateral pneumonia, discharged home on Levaquin yesterday (04/27). Chest CT (04/28) showed bilateral probable bronchopneumonia superimposed on chronic lung disease. Patient tested positive for COVID on 04/28. * started on azithromycin and cefepime on 04/28, switched to Augmentin and azithromycin which finished. * supportive care * MRSA PCR negative on 04/27/2025 (4) Hyponatremia: Code(s): E87.1 - Hypo-osmolality and hyponatremia Status: Acute Assessment and Plan: Sodium 131 on upon discharge on 04/27, re-presented with sodium 126. Unclear if was a contributing factor the patient is delirium. * continue NaCl 1G b.i.d. * exchange heart healthy diet for regular diet to increased sodium intake * patient recently diagnosed with hyperthyroidism, initiated on treatment during his most recent admission * will forego hyponatremia workup at this time as he recently had 1 completed * previously trialed on IV fluids which improved his sodium, however he developed tachypnea crackles and required Lasix. Will hold off on fluids at this time. * Urine osm WDL 04/21 & serum osm low 04/21, redrawn 04/26, pending * Sodium stable, continue to monitor. (5) Diastolic CHF: Qualifiers: Heart failure chronicity: chronic Qualified Code(s): I50.32 - Chronic diastolic (congestive) heart failure Code(s): I50.30 - Unspecified diastolic (congestive) heart failure Status: Chronic Assessment and Plan: No evidence of pulmonary edema on chest CT. Her presented with pitting edema to lower extremities. During his most recent admission he received IV fluids due to hyponatremia and developed crackles on exam which required IV Lasix. * Status post Lasix x1 with improvement. * monitor I&Os and daily weights * monitor renal function and sodium level (6) COPD (chronic obstructive pulmonary disease): Qualifiers: COPD type: unspecified COPD Qualified Code(s): J44.9 - Chronic obstructive pulmonary disease, unspecified Code(s): J44.9 - Chronic obstructive pulmonary disease, unspecified Status: Chronic Assessment and Plan: No current wheezing on exam. No current concern for exacerbation. * continue home medications 05/05: Updated the pt that if he is in need of a nebulizer that they are ordered at a PRN status and that if he is in need, he needs to request one via his nurse. (7) Benign prostatic hyperplasia: Qualifiers: Lower urinary tract symptom presence: symptoms present Lower urinary tract symptom detail: unspecified Qualified Code(s): N40.1 - Benign prostatic hyperplasia with lower urinary tract symptoms Code(s): N40.0 - Benign prostatic hyperplasia without lower urinary tract symptoms Status: Chronic Assessment and Plan: History of BPH with normal PSA. Recently started on tamsulosin on 04/18, incr eased to 0.8 mg prior to recent discharge. Referred to urology at discharge on 04/26. - bladder scan prn - continue Flomax (8) Hypertension: Qualifiers: Hypertension type: primary hypertension Qualified Code(s): I10 - Essential (primary) hypertension Code(s): I10 - Essential (primary) hypertension Status: Chronic Assessment and Plan: - chronic - continue home medications: Losartan, amlodipine - continue to monitor -blood pressures view, at goal. Continue to monitor per unit protocol. (9) Hyperthyroidism without thyroid nodule: Code(s): E05.90 - Thyrotoxicosis, unspecified without thyrotoxic crisis or storm Status: Chronic Assessment and Plan: Recent diagnosis - previous Labs: 04/19 - TSH <0.015, T4 2.33, free T3 2.92 04/24 - TSH 0.053, T4 2.48, free T3 2.6 - continue methimazole and propranolol - will need f/u outpatient with an group exercise class instructor (10) Depression: Qualifiers: Depression Type: unspecified Qualified Code(s): F32.A - Depression, unspecified Code(s): F32.A - Depression, unspecified Status: Chronic Assessment and Plan: History of depression and anxiety. Recently more agitated, attributed to history of dementia and recent illnesses. - continue buspirone (11) Hyperlipidemia: Qualifiers: Hyperlipidemia type: unspecified Qualified Code(s): E78.5 - Hyperlipidemia, unspecified Code(s): E78.5 - Hyperlipidemia, unspecified Status: Chronic Assessment and Plan: - continue atorvastatin (12) Atrial fibrillation: Code(s): I48.91 - Unspecified atrial fibrillation Status: Chronic Assessment and Plan: Had AFib with RVR, patient was asymptomatic. After getting his a.m. dose of propanolol he was in normal sinus rhythm. Continue to monitor. (13) Acid reflux: Code(s): K21.9 - Gastro-esophageal reflux disease without esophagitis Status: Acute Assessment and Plan: Complained of burning in his upper abdomen. Pepcid started and patient has no further complaints related to this. Plan Diet: Regular DVT Prophylaxis: Heparin subQ IV fluids: None Lines/Tubes: Peripheral IV Code Status: DNR Pending SNF placement: See care coordination notes. Anticipate discharge soon Time Spent With Patient Time: H&P per Katie Feng APRN on 04/28/2025 89 y/o M with PMH of pSVT, PE, PUD, AFib, PVD, COPD, BPH, anemia, anxiety/depression, HLD, and dementia presents here with altered mental status and possible hypoxia. The patient presents here from [facility] via EMS on 04/28 for further evaluation of altered mental status and hypoxia. The patient was recently admitted here from 04/17/2025 to 04/27/2025. At that time he was treated for acute on chronic dyspnea and altered mental status in the setting of COPD exacerbation, multifactorial delirium, and multiple comorbidities. He was noted to have new bilateral infiltrates consistent with pneumonia on his CXR from 04/26 for which he was discharged home on Levaquin. Returning today after his facility noted he was increasingly confused and they had some concern for hypoxia. Per EMS, the patient's O2 saturation was 92% upon their arrival. Arrived to the emergency department 100% on room air and A&O x1. Patient is typically A&O x3 at baseline with history of dementia. He currently reports a cough that he developed on day of admission. The patient denied chest pain, shortness a breath, fever, chills, nausea, vomiting, diarrhea. Initial VS at presentation: 98? F, HR 89, RR 23, 158/72, and 100% on RA. ED workup showed: No leukocytosis, hemoglobin 13.5, sodium 126, creatinine 0.88 and GFR >60, glucose 125, lactic 1.1, CRP 1.8, UA unremarkable except for 11-20 RBC. Patient tested positive for COVID upon admission on 04/28, previously negative on 04/15. Head CT showed no acute intracranial hemorrhage, no mass effect and probable chronic ischemic white matter changes and cerebral atrophy appropriate for patient's age. Chest CT showed bilateral probable broncho pneumonia superimposed on chronic lung disease, micro nodules which are probably infectious underlying neoplasm is not excluded. Subjective Date/time seen: 05/10/25 16:36 Interval history: No major acute overnight events. Patient has no complaints, he sits up in chair watching TV. Review of Systems Review of Systems: All systems reviewed & are unremarkable except as noted in HPI and below (Subjective) Exam Const: General: comfortable Other: Pleasantly confused HENMT: Mouth: Yes moist mucous membranes Eyes: Pupils: Equal, round and reactive pupils present Neck: Neck: supple Resp: Effort & Inspection: normal respiratory effort Auscultation: clear to auscultation bilaterally Cardio: Rate: regular rate Rhythm: regular rhythm GI: GI Palp: Yes Soft to palpation Neuro: Motor exam (neuro): 5/5 motor strength present throughout Extrem: General: no edema Objective Data Vital Signs Vital Signs: Vital Signs - 24 hr 05/09/25 18:31 05/09/25 20:00 05/09/25 20:45 Temperature 98.9 F Pulse Rate 80 68 68 Respiratory Rate 20 20 Blood Pressure 129/60 Pulse Oximetry 93 93 Oxygen Delivery Room Air Fraction of Inspired Oxygen 05/10/25 06:00 05/10/25 08:00 05/10/25 08:20 Temperature 97.8 F Pulse Rate 81 81 81 Respiratory Rate 18 18 Blood Pressure 142/67 H Pulse Oximetry 94 94 Oxygen Delivery Room Air Fraction of Inspired Oxygen 05/10/25 13:42 Temperature 97.8 F Pulse Rate 94 Respiratory Rate 18 Blood Pressure 108/90 Pulse Oximetry 92 Oxygen Delivery Fraction of Inspired Oxygen Intake/Output Intake/Output: Intake & Output 05/07/25 05/08/25 05/09/25 05/10/25 23:59 23:59 23:59 23:59 Intake Total 480 680 525 320 Output Total 2 Balance 480 680 523 320 Meds/Results Medications: Active Medications Generic Name Dose Route Start Last Admin Trade Name Freq PRN Reason Stop Dose Admin Acetaminophen 650 mg 04/28/25 18:50 05/08/25 10:10 Acetaminophen 325 Mg Tablet PO 650 mg Q4H PRN Administration Mild Pain (1-3) or Fever Albuterol 2.5 mg 04/28/25 21:15 05/03/25 12:08 Albuterol Sulfate Neb 2.5 Mg/3 Ml Inh INHALATION 2.5 mg Q6H PRN Administration shortness of breath or wheezing Albuterol/Ipratropium 3 ml 04/28/25 18:50 05/07/25 11:02 Ipratropium 0.5 Mg/Albuterol Sulfate 2.5 Mg (Base) Ampul.Neb 3 Ml INHALATION 3 ml Q6H PRN Administration Shortness Of Breath Or Wheezing Amlodipine Besylate 5 mg 04/29/25 09:00 05/10/25 08:20 Amlodipine Besylate 5 Mg Tablet PO 5 mg DAILY MIGUELINA Administration Aspirin 81 mg 04/29/25 09:00 05/10/25 08:20 Aspirin 81 Mg Enteric Tablet PO 81 mg DAILY MIGUELINA Administration Atorvastatin Calcium 20 mg 04/29/25 09:00 05/10/25 08:20 Atorvastatin 20 Mg Tablet PO 20 mg DAILY MIGUELINA Administration Benzonatate 100 mg 04/28/25 18:50 04/30/25 09:05 Benzonatate 100 Mg Capsule PO 100 mg TID PRN Administration Cough Bisacodyl 5 mg 04/28/25 18:50 Bisacodyl 5 Mg Tablet Ec PO DAILY PRN Constipation Buspirone HCl 5 mg 04/28/25 21:00 05/10/25 08:20 Buspirone Hcl 5 Mg Tablet PO 5 mg Q12HR MIGUELINA Administration Docusate Sodium 100 mg 04/29/25 09:00 05/10/25 08:20 Docusate Sodium 100 Mg Capsule PO 100 mg BID MIGUELINA Administration Famotidine 20 mg 04/29/25 15:15 05/10/25 08:20 Famotidine 20 Mg Tablet PO 20 mg Q12HR MIGUELINA Administration Fluticasone Propionate 1 spray 04/29/25 09:00 05/10/25 08:21 Fluticasone Propionate 0.05% Na Spr 16 Gm Btl (*Bkc) NASAL 1 spray BID MIGUELINA Administration Guaifenesin 600 mg 04/28/25 21:00 05/10/25 08:20 Guaifenesin 12 Hr 600 Mg Tabcr PO 600 mg Q12HR MIGUELINA Administration Heparin Sodium (Porcine) 5,000 units 04/28/25 21:00 05/10/25 08:20 Heparin Sodium 5,000 Units/Ml Vial SUB-Q 5,000 units Q12HR MIGUELINA Administration Losartan Potassium 50 mg 04/29/25 09:00 05/10/25 08:20 Losartan Potassium 50 Mg Tablet PO 50 mg DAILY MIGUELINA Administration Melatonin 3 mg 04/28/25 21:00 05/09/25 20:50 Melatonin 3 Mg Tablet PO 3 mg HS MIGUELINA Administration Methimazole 5 mg 04/29/25 09:00 05/10/25 08:20 Methimazole 5 Mg Tab PO 5 mg DAILY MIGUELINA Administration Pantoprazole Sodium 40 mg 04/29/25 09:00 05/10/25 08:20 Pantoprazole 40 Mg Tablet PO 40 mg QAM MIGUELINA Administration Polyethylene Glycol 17 gm 04/29/25 09:00 05/10/25 08:21 Polyethylene Glycol 3350 17 Gm Powd.Pack PO Not Given QAM MIGUELINA Propranolol HCl 10 mg 04/28/25 21:20 05/10/25 08:20 Propranolol Hcl 10 Mg Tablet PO 10 mg BID MIGUELINA Administration Fluticasone/Salmeterol 2 puff 04/29/25 08:00 05/10/25 07:20 Fluticasone/Salmeterol 115-21 Mcg Inhaler 1 Puff INHALATION 2 puff Q12HRT MIGUELINA Administration Sodium Chloride 1 gm 05/06/25 09:00 05/10/25 08:20 Sodium Chloride 1 Gm Tablet PO 1 gm BID MIGUELINA Administration Tamsulosin HCl 0.8 mg 04/28/25 21:00 05/09/25 20:50 Tamsulosin Hcl 0.4 Mg Capsule PO 0.8 mg HS MIGUELINA Administration Radiology Results: ITS Impressions Head CT 04/28/25 16:49 IMPRESSION: 1. No acute intracranial hemorrhage. No mass effect. 2. Probable chronic ischemic white matter change. 3. Cerebral atrophy appropriate for the patient's age. If symptoms persist or worsen, consider a short-term follow-up study or additional imaging for further assessment. Chest CT 04/28/25 16:55 IMPRESSION: Bilateral probable bronchopneumonia superimposed on chronic lung disease. There are micronodules which are probably infectious, underlying neoplasm is not excluded. Follow-up after treatment is recommended to assess improvement Labs Labs: Laboratory Results - last 24 hr 05/10/25 06:46 Sodium 129 L Potassium 3.9 Chloride 103 Carbon Dioxide 22 Anion Gap 4 BUN 25 H Creatinine 0.78 Estim Creat Clear Calc 49 Estimated GFR > 60 Glucose 109 Calcium 8.2 L Magnesium 2.0 Total Bilirubin 0.7 AST 28 ALT 31 Alkaline Phosphatase 97 Total Protein 5.8 L Albumin 2.9 L
[2025-05-10] MEDS: MELATONIN 3 MG TABLET PO (21:09)
[2025-05-10] MEDS: TAMSULOSIN HCL 0.4 MG CAPSULE 0.8 MG PO (21:09)
[2025-05-11] VITALS (8 sets, daily range): BP systolic 114–148; BP diastolic 43–63; PULSE 73–110; RESP 12–20; TEMP 36.6–37.2; O2SAT 92–95
--- NOTE | 2025-05-11 05:55 | PC.NURSE ---
This nurse spoke with daughter of patient who expressed her concern about her father receiving heparin injections, and the continuation of him being on a heart healthy diet after discharge. Daughter stated that her father is tired of receiving the injections and that he will not need to be on a heart healthy diet when he leaves the hospital. Daughter requested that both of these be stopped. This nurse informed the daughter that the requests will be passed along to the appropriate home health care coordinator.
[2025-05-11] MEDS: FLUTICASONE/SALMETEROL 115-21 MCG INHALER 1 PUFF 2 PUFF INHALATION ×2 (08:00→21:06)
[2025-05-11] MEDS: ASPIRIN 81 MG ENTERIC TABLET PO (10:00)
[2025-05-11] MEDS: ATORVASTATIN 20 MG TABLET PO (10:00)
[2025-05-11] MEDS: DOCUSATE SODIUM 100 MG CAPSULE PO ×2 (10:01→18:14)
[2025-05-11] MEDS: FAMOTIDINE 20 MG TABLET PO ×2 (10:01→21:21)
[2025-05-11] MEDS: guaiFENesin 12 HR 600 MG TABCR PO ×2 (10:02→21:21)
[2025-05-11] MEDS: FLUTICASONE PROPIONATE 0.05% NA SPR 16 GM BTL (*BKC) 1 SPRAY NASAL ×2 (10:02→18:16)
[2025-05-11] MEDS: LOSARTAN POTASSIUM 50 MG TABLET PO (10:04)
[2025-05-11] MEDS: PANTOPRAZOLE 40 MG TABLET PO (10:05)
[2025-05-11] MEDS: SODIUM CHLORIDE 1 GM TABLET PO ×2 (10:05→18:16)
[2025-05-11] MEDS: PROPRANOLOL HCL 10 MG TABLET PO ×2 (10:05→18:14)
[2025-05-11] MEDS: SODIUM CHLORIDE 0.9% IV 500 ML IV CONT (11:10)
--- NOTE | 2025-05-11 11:13 | PCOTNOTE ---
The patient treatment was not able to be completed. Not appropraite at this time getting test done. Will plan to continue treatment per plan of care.
[2025-05-11 11:46] LABS: Troponin I 0.014 ng/mL (0.000-0.034)
--- NOTE | 2025-05-11 13:12 | PCOTNOTE ---
Attempted to see Patient for P.M. treatment session. Patient declined, states he is so SOB, just got back from the bathroom, no more. Per RN, Patient will be going down for testing.
--- NOTE | 2025-05-11 14:00 | ECG_ITS ---
Test Date: 2025-05-11 14:13:54 Measurements Intervals [place] Rate: 80 P: 78 WI: 173 QRS: -49 QRSD: 135 T: 44 QT: 358 QTc: 415 Interpretive Statements SINUS RHYTHM RIGHT BUNDLE BRANCH BLOCK [120+ ms QRS DURATION, UPRIGHT V1, 40+ ms S IN I/aVL/V4/V5/V6] LEFT ANTERIOR FASCICULAR BLOCK [QRS AXIS <= -45, QR IN I, RS IN II] Compared to ECG 05/11/2025 11:10:12 Left anterior fascicular block now present Electronically Signed On 05-12-2025 17:33:06 [employer] by Barbara Lopez M.D.
--- NOTE | 2025-05-11 14:00 | ECG_ITS ---
Test Date: 2025-05-11 11:10:12 Measurements Intervals [place] Rate: 82 P: 72 SC: 144 QRS: -26 QRSD: 134 T: 66 QT: 374 QTc: 438 Interpretive Statements SINUS RHYTHM BORDERLINE LEFT AXIS DEVIATION [QRS AXIS < -20] RIGHT BUNDLE BRANCH BLOCK [120+ ms QRS DURATION, UPRIGHT V1, 40+ ms S IN I/aVL/V4/V5/V6] Compared to ECG 04/16/2025 21:11:40 No significant changes Electronically Signed On 05-12-2025 17:26:40 [employer] by Barbara Lopez M.D.
--- NOTE | 2025-05-11 14:02 | PCRCNOTE ---
Advair not given because to was sleeping. Note on door per nursing not to wake patient up.
--- NOTE | 2025-05-11 14:09 | P.PNIM_ITS ---
Progress Note: A&P Assessment and Plan (1) AMS (altered mental status): Qualifiers: Altered mental status type: disorientation Qualified Code(s): R41.0 - Disorientation, unspecified Code(s): R41.82 - Altered mental status, unspecified Status: Acute Assessment and Plan: Patient's reported baseline is A&O x3. Reviewed previous notes from most recent admission, family reported that the patient requires you to speak slowly and use simple terms. Days and years blend together. Recently started to get family members confused and more agitated. Most recently A&O x1 on 04/[address] Head CT completed in the ED on 04/28 which showed no acute findings, chronic findings including probable chronic ischemic white matter changes and cerebral atrophy appropriate for patient's age. Patient tested positive for COVID upon admission on 04/28 which is likely contributing to patient's wor sening confusion. Imaging also concerning for unresolved pneumonia. * head CT unremarkable on 04/28 * tested positive for COVID on 04/28, likely contributing to patient's current alteration * hyponatremia noted during most recent admission, discharged with a sodium of 131. Now 126, could also be contributing. Continue sodium tablets. * Urine osm WDL 04/21 & serum osm low 04/21, redrawn 04/26 - serum continues to be low at 271, higher than prior. urine osmolality WDL * Neurology recommendations appreciated * 04/28/2025 blood cultures x2, no growth final. * PT/OT - recommend SNF Mental status waxes and wanes. (2) COVID: Code(s): U07.1 - COVID-19 Status: Acute Assessment and Plan: Symptom onset unclear. Patient tested positive for COVID on 04/28. Was previously tested on 04/15 which was negative. Some concern for hypoxia noted by the patient's facility, however no hypoxia has been recorded since his arrival in the emergency department. * tested positive for COVID on 04/28 * Received 5 days of remdesivir * Never required oxygen * * 05/11/2025, patient became short of breath after working with physical therapy. No hypoxia. Chest x-ray reveals similar pneumonia findings. Repeat chest CT. Repeat CT head negative for acute process, stable age related changes with chronic small-vessel ischemic disease. Check D-dimer. Troponin 0.014, check again in 3 hours. EKG without new findings. (3) Bronchopneumonia: Code(s): J18.0 - Bronchopneumonia, unspecified organism Status: Acute Assessment and Plan: Discharged home on Levaquin on last admission, CT chest on this admission 1028 show bilateral probable bronchopneumonia superimposed on chronic lung disease. Patient tested positive for COVID on 04/28. Patient showed probable viral pneumonitis on CXR from 04/24. CXR repeated on 04/26 which showed bilateral pneumonia, discharged home on Levaquin yesterday (04/27). Chest CT (04/28) showed bilateral probable bronchopneumonia superimposed on chronic lung disease. Patient tested positive for COVID on 04/28. * started on azithromycin and cefepime on 04/28, switched to Augmentin and azithromycin which finished. * supportive care * MRSA PCR negative on 04/27/2025 (4) Hyponatremia: Code(s): E87.1 - Hypo-osmolality and hyponatremia Status: Acute Assessment and Plan: Sodium 131 on upon discharge on 04/27, re-presented with sodium 126. Unclear if was a contributing factor the patient is delirium. * continue NaCl 1G b.i.d. * exchange heart healthy diet for regular diet to increased sodium intake * patient recently diagnosed with hyperthyroidism, initiated on treatment during his most recent admission * will forego hyponatremia workup at this time as he recently had 1 completed * previously trialed on IV fluids which improved his sodium, however he developed tachypnea crackles and required Lasix. Will hold off on fluids at this time. * Sodium stable, continue to monitor. (5) Diastolic CHF: Qualifiers: Heart failure chronicity: chronic Qualified Code(s): I50.32 - Chronic diastolic (congestive) heart failure Code(s): I50.30 - Unspecified diastolic (congestive) heart failure Status: Chronic Assessment and Plan: No evidence of pulmonary edema on chest CT. Her presented with pitting edema to lower extremities. During his most recent admission he received IV fluids due to hyponatremia and developed crackles on exam which required IV Lasix. * Status post Lasix x1 with improvement. * monitor I&Os and daily weights * monitor renal function and sodium level (6) COPD (chronic obstructive pulmonary disease): Qualifiers: COPD type: unspecified COPD Qualified Code(s): J44.9 - Chronic obstructive pulmonary disease, unspecified Code(s): J44.9 - Chronic obstructive pulmonary disease, unspecified Status: Chronic Assessment and Plan: Continue ACTUARIAL CONSULTANT Advair. Added umeclidinium 05/05: Updated the pt that if he is in need of a nebulizer that they are ordered at a PRN status and that if he is in need, he needs to request one via his nurse. (7) Benign prostatic hyperplasia: Qualifiers: Lower urinary tract symptom presence: symptoms present Lower urinary tract symptom detail: unspecified Qualified Code(s): N40.1 - Benign prostatic hyperplasia with lower urinary tract symptoms Code(s): N40.0 - Benign prostatic hyperplasia without lower urinary tract symptoms Status: Chronic Assessment and Plan: History of BPH with normal PSA. Recently started on tamsulosin on 04/18, increased to 0.8 mg prior to recent discharge. Referred to urology at discharge on 04/26. - bladder scan prn - continue Flomax (8) Hypertension: Qualifiers: Hypertension type: primary hypertension Qualified Code(s): I10 - Essential (primary) hypertension Code(s): I10 - Essential (primary) hypertension Status: Chronic Assessment and Plan: - chronic - continue home medications: Losartan, amlodipine - continue to monitor -blood pressures reviewed, at goal. Continue to monitor per unit protocol. (9) Hyperthyroidism without thyroid nodule: Code(s): E05.90 - Thyrotoxicosis, unspecified without thyrotoxic crisis or storm Status: Chronic Assessment and Plan: Recent diagnosis - previous Labs: 04/19 - TSH <0.015, T4 2.33, free T3 2.92 04/24 - TSH 0.053, T4 2.48, free T3 2.6 - continue methimazole and propranolol - will need f/u outpatient with an performance management consultant (10) Depression: Qualifiers: Depression Type: unspecified Qualified Code(s): F32.A - Depression, unspecified Code(s): F32.A - Depression, unspecified Status: Chronic Assessment and Plan: History of depression and anxiety. Recently more agitated, attributed to history of dementia and recent illnesses. - continue buspirone (11) Hyperlipidemia: Qualifiers: Hyperlipidemia type: unspecified Qualified Code(s): E78.5 - Hyperlipid emia, unspecified Code(s): E78.5 - Hyperlipidemia, unspecified Status: Chronic Assessment and Plan: - continue atorvastatin (12) Atrial fibrillation: Code(s): I48.91 - Unspecified atrial fibrillation Status: Chronic Assessment and Plan: Had AFib with RVR, patient was asymptomatic. After getting his a.m. dose of propanolol he was in normal sinus rhythm. Continue to monitor. (13) Acid reflux: Code(s): K21.9 - Gastro-esophageal reflux disease without esophagitis Status: Acute Assessment and Plan: Complained of burning in his upper abdomen. Pepcid started and patient has no further complaints related to this. Plan Diet: Regular DVT Prophylaxis: Heparin subQ IV fluids: None Lines/Tubes: Peripheral IV Code Status: DNR Pending SNF placement: See care coordination note. Time Spent With Patient Time: H&P per Katie Feng APRN on 04/28/2025 89 y/o M with PMH of pSVT, PE, PUD, AFib, PVD, COPD, BPH, anemia, anxiety/depression, HLD, and dementia presents here with altered mental status and possible hypoxia. The patient presents here from [facility] via EMS on 04/28 for further evaluation of altered mental status and hypoxia. The patient was recently admitted here from 04/17/2025 to 04/27/2025. At that time he was treated for acute on chronic dyspnea and altered mental status in the setting of COPD exacerbation, multifactorial delirium, and multiple comorbidities. He was noted to have new bilateral infiltrates consistent with pneumonia on his CXR from 04/26 for which he was discharged home on Levaquin. Returning today after his facility noted he was increasingly confused and they had some concern for hypoxia. Per EMS, the patient's O2 saturation was 92% upon their arrival. Arrived to the emergency department 100% on room air and A&O x1. Patient is typically A&O x3 at baseline with history of dementia. He currently reports a cough that he developed on day of admission. The patient denied chest pain, shortness a breath, fever, chills, nausea, vomiting, diarrhea. Initial VS at presentation: 98? F, HR 89, RR 23, 158/72, and 100% on RA. ED workup showed: No leukocytosis, hemoglobin 13.5, sodium 126, creatinine 0.88 and GFR >60, glucose 125, lactic 1.1, CRP 1.8, UA unremarkable except for 11-20 RBC. Patient tested positive for COVID upon admission on 04/28, previously negative on 04/15. Head CT showed no acute intracranial hemorrhage, no mass effect and probable chronic ischemic white matter changes and cerebral atrophy appropriate for patient's age. Chest CT showed bilateral probable broncho pneumonia superimposed on chronic lung disease, micro nodules which are probably infectious underlying neoplasm is not excluded. Her than 55 minutes spent on multiple evaluations of the patient, review of imaging, multiple discussions with care team. Subjective Date/time seen: 05/11/25 14:09 Interval history: This morning the patient was working with therapy, became short of breath, tachypnea. Patient was sat down and improved. Review of Systems Review of Systems: All systems reviewed & are unremarkable except as noted in HPI and below (Subjective) Exam Const: General: comfortable and no acute distress Other: Pleasantly confused HENMT: Mouth: Yes moist mucous membranes Eyes: Pupils: Equal, round and reactive pupils present Neck: Neck: supple Resp: Effort & Inspection: normal respiratory effort Auscultation: clear to auscultation bilaterally Cardio: Rate: regular rate Rhythm: regular rhythm GI: Inspection: non-distended GI Palp: Yes Soft to palpation Neuro: Motor exam (neuro): 5/5 motor strength present throughout Extrem: General: no edema Objective Data Vital Signs Vital Signs: Vital Signs - 24 hr 05/10/25 17:13 05/10/25 20:00 05/10/25 21:20 Temperature 98.2 F Pulse Rate 94 86 85 Respiratory Rate 17 16 Blood Pressure 105/70 Pulse Oximetry 95 95 Oxygen Delivery Room Air Fraction of Inspired Oxygen 21 05/10/25 21:33 05/11/25 06:00 05/11/25 08:00 Temperature 98.9 F Pulse Rate 86 81 Respiratory Rate 17 16 Blood Pressure 139/63 Pulse Oximetry 92 Oxygen Delivery Room Air Fraction of Inspired Oxygen 05/11/25 10:05 05/11/25 11:01 Temperature Pulse Rate 90 110 H Respiratory Rate Blood Pressure 114/43 L Pulse Oximetry 95 Oxygen Delivery Fraction of Inspired Oxygen Intake/Output Intake/Output: Intake & Output 05/08/25 05/09/25 05/10/25 05/11/25 23:59 23:59 23:59 23:59 Intake Total 680 525 420 600 Output Total 2 Balance 680 523 420 600 Meds/Results Medications: Active Medications Generic Name Dose Route Start Last Admin Trade Name Freq PRN Reason Stop Dose Admin Acetaminophen 650 mg 04/28/25 18:50 05/08/25 10:10 Acetaminophen 325 Mg Tablet PO 650 mg Q4H PRN Administration Mild Pain (1-3) or Fever Albuterol 2.5 mg 04/28/25 21:15 05/03/25 12:08 Albuterol Sulfate Neb 2.5 Mg/3 Ml Inh INHALATION 2.5 mg Q6H PRN Administration shortness of breath or wheezing Albuterol/Ipratropium 3 ml 04/28/25 18:50 05/07/25 11:02 Ipratropium 0.5 Mg/Albuterol Sulfate 2.5 Mg (Base) Ampul.Neb 3 Ml INHALATION 3 ml Q6H PRN Administration Shortness Of Breath Or Wheezing Amlodipine Besylate 5 mg 04/29/25 09:00 05/11/25 10:00 Amlodipine Besylate 5 Mg Tablet PO 5 mg DAILY CONNIE Administration Aspirin 81 mg 04/29/25 09:00 05/11/25 10:00 Aspirin 81 Mg Enteric Tablet PO 81 mg DAILY CONNIE Administration Atorvastatin Calcium 20 mg 04/29/25 09:00 05/11/25 10:00 Atorvastatin 20 Mg Tablet PO 20 mg DAILY CONNIE Administration Benzonatate 100 mg 04/28/25 18:50 04/30/25 09:05 Benzonatate 100 Mg Capsule PO 100 mg TID PRN Administration Cough Bisacodyl 5 mg 04/28/25 18:50 Bisacodyl 5 Mg Tablet Ec PO DAILY PRN Constipation Buspirone HCl 5 mg 04/28/25 21:00 05/11/25 10:01 Buspirone Hcl 5 Mg Tablet PO 5 mg Q12HR CONNIE Administration Docusate Sodium 100 mg 04/29/25 09:00 05/11/25 10:01 Docusate Sodium 100 Mg Capsule PO 100 mg BID CONNIE Administration Famotidine 20 mg 04/29/25 15:15 05/11/25 10:01 Famotidine 20 Mg Tablet PO 20 mg Q12HR CONNIE Administration Fluticasone Propionate 1 spray 04/29/25 09:00 05/11/25 10:02 Fluticasone Propionate 0.05% Na Spr 16 Gm Btl (*Bkc) NASAL 1 spray BID CONNIE Administration Guaifenesin 600 mg 10/28/25 21:00 05/11/25 10:02 Guaifenesin 12 Hr 600 Mg Tabcr PO 600 mg Q12HR CONNIE Administration Losartan Potassium 50 mg 04/29/25 09:00 05/11/25 10:04 Losartan Potassium 50 Mg Tablet PO 50 mg DAILY CONNIE Administration Melatonin 3 mg 04/28/25 21:00 05/10/25 21:09 Melatonin 3 Mg Tablet PO 3 mg HS CONNIE Administration Methimazole 5 mg 04/29/25 09:00 05/11/25 10:05 Methimazole 5 Mg Tab PO 5 mg DAILY CONNIE Administration Pantoprazole Sodium 40 mg 04/29/25 09:00 05/11/25 10:05 Pantoprazole 40 Mg Tablet PO 40 mg QAM CONNIE Administration Polyethylene Glycol 17 gm 04/29/25 09:00 05/11/25 10:02 Polyethylene Glycol 3350 17 Gm Powd.Pack PO 17 gm QAM CONNIE Administration Propranolol HCl 10 mg 04/28/25 21:20 05/11/25 10:05 Propranolol Hcl 10 Mg Tablet PO 10 mg BID CONNIE Administration Fluticasone/Salmeterol 2 puff 04/29/25 08:00 05/11/25 08:00 Fluticasone/Salmeterol 115-21 Mcg Inhaler 1 Puff INHALATION 2 puff Q12HRT CONNIE Administration Sodium Chloride 1 gm 05/06/25 09:00 05/11/25 10:05 Sodium Chloride 1 Gm Tablet PO 1 gm BID CONNIE Administration Tamsulosin HCl 0.8 mg 04/28/25 21:00 05/10/25 21:09 Tamsulosin Hcl 0.4 Mg Capsule PO 0.8 mg HS CONNIE Administration Radiology Results: ITS Impressions Chest X-Ray 05/11/25 11:44 IMPRESSION: 1. No significant change in interstitial and mild airspace opacities in the left lower lung zone, left perihilar and right infrahilar regions consistent with pneumonia. Labs Labs: Laboratory Results - last 24 hr 05/11/25 11:17 Troponin I 0.014
[2025-05-11 14:54] LABS: Troponin I 0.014 ng/mL (0.000-0.034)
[2025-05-11 17:57] LABS: Troponin I 0.014 ng/mL (0.000-0.034)
[2025-05-11] MEDS: UMECLIDINIUM BROMIDE 62.5 MCG ELLIPTA 1 PUFF INHALATION (18:03)
[2025-05-11] MEDS: TAMSULOSIN HCL 0.4 MG CAPSULE 0.8 MG PO (21:20)
[2025-05-11] MEDS: MELATONIN 3 MG TABLET PO (21:22)
[2025-05-12 04:24] VITALS: BP 158/60; PULSE 80; RESP 12; TEMP 36.1; O2SAT 98
[2025-05-12 05:18] LABS: Hematocrit 38.2 % (42.0-52.0); Hemoglobin 12.4 g/dL (14.0-18.0); Immature Granulocyte Percent A 1.0 % (0-0.5); Lymphocytes Absolute Auto 0.70 K/mm3 (0.9-3.2); Mean Corpuscular HGB Conc 32.5 g/dl (32-36); Mean Corpuscular Hemoglobin 30.6 pg (26-34); Mean Corpuscular Volume 94.3 fl (80-100); Nucleated Red Blood Cells Absolute Auto 0.000 K/mm3 (0.0-0.012); Nucleated Red Blood Cells Perc 0.0 % (0.0-0.2); Platelet Count Result 212 k/mm3 (150-375); Red Blood Count 4.05 M/mm3 (4.6-6.20); White Blood Count 4.2 K/mm3 (4.5-10.0)
[2025-05-12 05:27] LABS: Alanine Aminotransferase 29 U/L (6-50); Albumin Level 3.3 g/dL (3.5-5.1); Alkaline Phosphatase 120 U/L (38-126); Anion Gap 7 mmol/L (4-12); Aspartate Amino Transferase 27 U/L (17-59); Bilirubin,Total 0.9 mg/dL (0.2-1.3); Blood Urea Nitrogen 26 mg/dL (9-20); Calcium 8.3 mg/dL (8.4-10.2); Carbon Dioxide 23 mmol/L (22-30); Chloride 103 mmol/L (98-107); Estimated CRCL calculation 49 ml/min; Estimated Glomerular Filt Rate > 60; Glucose 117 mg/dL (65-110); Magnesium 2.1 mg/dL (1.6-2.3); Potassium 4.1 mmol/L (3.4-5.0); Sodium 133 mmol/L (137-145); Total Protein 6.4 g/dL (6.3-8.2)
[2025-05-12 08:30] VITALS: PULSE 93; RESP 20
[2025-05-12] MEDS: FLUTICASONE/SALMETEROL 115-21 MCG INHALER 1 PUFF 2 PUFF INHALATION (08:30)
[2025-05-12] MEDS: UMECLIDINIUM BROMIDE 62.5 MCG ELLIPTA 1 PUFF INHALATION (08:30)
[2025-05-12 09:10] VITALS: PULSE 87
[2025-05-12 09:20] VITALS: PULSE 87
[2025-05-12] MEDS: guaiFENesin 12 HR 600 MG TABCR PO (09:20)
[2025-05-12] MEDS: LOSARTAN POTASSIUM 50 MG TABLET PO (09:20)
[2025-05-12] MEDS: FAMOTIDINE 20 MG TABLET PO (09:20)
[2025-05-12] MEDS: PROPRANOLOL HCL 10 MG TABLET PO (09:20)
[2025-05-12] MEDS: ASPIRIN 81 MG ENTERIC TABLET PO (09:21)
[2025-05-12] MEDS: DOCUSATE SODIUM 100 MG CAPSULE PO (09:21)
[2025-05-12] MEDS: FLUTICASONE PROPIONATE 0.05% NA SPR 16 GM BTL (*BKC) 1 SPRAY NASAL (09:21)
[2025-05-12] MEDS: SODIUM CHLORIDE 1 GM TABLET PO (09:21)
[2025-05-12] MEDS: PANTOPRAZOLE 40 MG TABLET PO (09:21)
[2025-05-12] MEDS: ATORVASTATIN 20 MG TABLET PO (09:21)
[2025-05-12 09:35] VITALS: BP 110/50
--- NOTE | 2025-05-12 10:46 | PCNWS ---
Weekly nutritional screen. Patient is tolerating Regular diet with Ensure Plus High Protein BID with adequate intake. No weight loss reported. No nutritional needs at this time.
--- NOTE | 2025-05-12 13:18 | PM.DS ---
DS: Admitting Diagnosis Discharge Date 05/12/2025 Admitting Diagnosis Shortness of breath DS: Discharge Diagnosis Discharge Diagnosis (1) Hypertension: Qualifiers: Hypertension type: primary hypertension Qualified Code(s): I10 - Essential (primary) hypertension Code(s): I10 - Essential (primary) hypertension Status: Chronic (2) Dementia: Code(s): F03.90 - Unspecified dementia, unspecified severity, without behavioral disturbance, psychotic disturbance, mood disturbance, and anxiety Status: Acute (3) Bronchopneumonia: Code(s): J18.0 - Bronchopneumonia, unspecified organism Status: Acute (4) COVID: Code(s): U07.1 - COVID-19 Status: Acute DS: Summary Hospital Course Hospital Course: 89 y/o M with PMH of pSVT, PE, PUD, AFib on aspirin only, PVD, COPD, BPH, anemia, anxiety/depression, HLD, and dementia presents here with altered mental status. Acute alteration of mental status superimposed on dementia likely multifactorial. Patient diagnosed with COVID bronchopneumonia. Sodium low at 126. He improved and his mental status has been stable, A&O times 1-2 without any agitation. He will follow with Dr. Anne neurologist in the outpatient setting. Presented with sodium 126, improved after being placed on sodium chloride 1 g b.i.d.. Regular diet. Recently diagnosed with hyperthyroidism, started on propanolol and methimazole. Follow with PCP/founder chairman and chief creative officer. Patient had transient AFib with RVR, received his MANAGEMENT SPECIALIST propanolol, has been in normal sinus rhythm. Complained of epigastric burning, resolved status post initiation of Pepcid. Continue Protonix and Pepcid and continue to reassess need for these. Diastolic heart failure, presented with mild decompensation with pitting edema to lower extremities, he did receive fluids on the admission prior. He was given a 1 time dose Lasix and appeared compensated afterwards. Shortness of breath as presenting complaint: Tested positive for COVID on 04/28, no hypoxia noted here. Patient treated for 5 days of remdesivir. Also treated for bronchopneumonia with azithromycin and cefepime. On a repeat CT after the patient became transiently short of breath there were some worsening bilateral lower lobe opacities. Started on Levaquin for 7 days, he had no further symptoms. No hypoxia. If he has return of symptoms repeat imaging may be warranted, D-dimer age adjusted unlikely for PE and the patient has other factors to contribute to shortness of breath including COVID and bronchopneumonia. Discussed this in the doc to doc sign-out with [facility] bed physician. Also discussed intermittent follow-up with scanning due to inability to rule out nodule of answers origin, however patient is DNR an 89-year-old therefore further discussion with his daughter would be prudent. MRSA PCR negative. Patient taking Breo Ellipta prior, added Incruse. Patient is DNR. Time Spent with Patient Time attestation: Total time spent providing and/or coordinating discharge services: Time spent: Greater than 30 minutes Exam Const: General: comfortable and no acute distress Other: Pleasantly confused HENMT: Mouth: Yes moist mucous membranes Eyes: Pupils: Equal, round and reactive pupils present Neck: Neck: supple Resp: Effort & Inspection: normal respiratory effort Auscultation: clear to auscultation bilaterally Cardio: Rate: regular rate Rhythm: regular rhythm GI: Inspection: non-distended GI Palp: Yes Soft to palpation Neuro: Motor exam (neuro): 5/5 motor strength present throughout Extrem: General: no edema DS: Data Data Completed and Pending Labs on day of discharge: Labs from last 24 hours 05/12/25 05/11/25 05/11/25 04:25 17:26 14:09 WBC 4.2 L RBC 4.05 L Hgb 12.4 L Hct 38.2 L MCV 94.3 MCH 30.6 MCHC 32.5 RDW 14.0 Plt Count 212 MPV 9.6 Immature Gran % (Auto) 1.0 H Neut % (Auto) 68.8 Lymph % (Auto) 16.6 L [place] % (Auto) 11.2 H Eos % (Auto) 1.9 Baso % (Auto) 0.5 Lymph # (Auto) 0.70 L [place] # (Auto) 0.5 Eos # (Auto) 0.1 Baso # (Auto) 0.0 Abs Immat Gran (auto) 0.04 H Absolute Neuts (auto) 2.9 Absolute Nucleated RBC 0.000 Nucleated RBC % 0.0 D-Dimer 1.46 H Sodium 133 L Potassium 4.1 Chloride 103 Carbon Dioxide 23 Anion Gap 7 BUN 26 H Creatinine 0.82 Estim Creat Clear Calc 49 Estimated GFR > 60 Glucose 117 H Calcium 8.3 L Phosphorus 2.3 L Magnesium 2.1 Total Bilirubin 0.9 AST 27 ALT 29 Alkaline Phosphatase 120 Troponin I 0.014 0.014 Total Protein 6.4 Albumin 3.3 L Discharge Plan Discharge Attending physician on discharge: Julissa Glover Consulting providers: Naty Granados; Sukhjinder Zheng; Rut Anne Discharging Clinician: Julissa Glover Patient Disposition: Hospital Swing Bed Activity: october shower Diet: as tolerated Patient Instructions: Antibiotic Form Patient Language: Nigerian Stand Alone Forms: General Discharge Information Follow-up/Referrals: Mely Gupta APRN [Primary Care Provider, Family Practice] Rut Anne MD [Physician, Neurology] - Other Referral Note: Follow-up in 2-3 months Discharge Medications: New bisacodyl [Laxative (bisacodyl)] 5 mg Tablet,Delayed Release (Dr/Ec) 5 mg PO DAILY PRN (Reason: Constipation) Qty: 30 0RF famotidine 20 mg Tablet 20 mg PO Q12HR Qty: 60 0RF Incruse Ellipta 62.5 mcg/actuation Blister With Device 1 inh inhalation DAILYRT Qty: 30 0RF Continued albuterol sulfate [Ventolin HFA] 90 mcg/actuation HFA aerosol inhaler 2 puff inhalation Q4H PRN (Reason: shortness of breath or wheezing) aspirin 81 mg tablet,delayed release (DR/EC) 81 mg PO DAILY polyethylene glycol 3350 [Miralax] 17 gram Powder In Packet 17 g PO QAM Qty: 7 0RF amlodipine 5 mg tablet 5 mg PO DAILY Qty: 30 0RF losartan 100 mg Tablet 50 mg PO DAILY buspirone 5 mg Tablet 5 mg PO Q12HR Qty: 60 0RF docusate sodium 100 mg Capsule 100 mg PO BID Qty: 30 0RF fluticasone propionate [24 Hour Allergy Relief] 50 mcg/actuation spray,suspension 1 spray intranasal BID Rx Instructions: administer into each nostril benzonatate 200 mg capsule 200 mg PO .Q8HR PRN (Reason: cough) fluticasone furoate-vilanterol [Breo Ellipta] 100-25 mcg/dose blister with device 1 inh inhalation DAILY melatonin 3 mg Tablet 3 mg PO HS Qty: 30 0RF pantoprazole 40 mg Tablet,Delayed Release (Dr/Ec) 40 mg PO QAM Qty: 30 0RF propranolol 10 mg Tablet 10 mg PO BID 30 Days Qty: 60 0RF tamsulosin 0.4 mg Capsule 0.8 mg PO HS 30 Days Qty: 60 0RF sodium chloride 1,000 mg Tablet,Soluble 1,000 mg PO BID 7 Days Qty: 14 0RF methimazole 5 mg tablet 5 mg PO DAILY Qty: 30 1RF (DME) nebulizer and compressor [All-In-One Nebulizer System] Device See Rx Instructions .Route Qty: 1 0RF Rx Instructions: As directed albuterol sulfate 5 mg/mL solution for nebulization 2.5 mg inhalation Q6H PRN (Reason: shortness of breath or wheezing) Qty: 100 0RF atorvastatin [Lipitor] 40 mg tablet 20 mg PO DAILY Qty: 90 3RF levofloxacin 750 mg tablet 750 mg PO DAILY Qty: 6 0RF Discontinued doxycycline hyclate 100 mg tablet 100 mg PO BID 6 Days Qty: 12 0RF prednisone 10 mg tablet 10 mg PO DIRECTED Qty: 9 0RF Rx Instructions: see taper instructions 2 tabs daily x 2 days, then 1 tab daily x 3 days, then 5mg daily x 3 days then stop. Date of admission: 04/29/25 09:28 Primary Care Provider: Mely Gupta Admitting Provider: Slick Muller Attending physician on admission: Slick Muller Condition: Stable Hospitalist MIPS Heart Failure (Exclusion) Patient has history of Heart Transplant or Left Ventricular Assistive Device?: No IF YES, STOP HERE Heart Failure (Qualifier) Patient has current or prior documentation of LVEF less than or equal to 40%, or mod/servere depressed LVSF?: No IF NO, STOP HERE
--- NOTE | 2025-05-12 13:29 | PC.NURSE ---
On 05/12/25, the student, [Azael Foley], provided care and completed [facility] documentation on this patient. I have reviewed the student's documentation and agree with the findings.
[2025-05-12 13:57] VITALS: BP 92/50; PULSE 79; RESP 16; TEMP 36.6; O2SAT 93
== END 2025-05-12 15:55 | disposition swing bed (61) | DRG 177 ==
LOC: ANHED 18:52 → ANH3MEDSUR 19:11 → ANH2MED 19:29
PROVIDERS: Physician Assistant; Student in an Organized Health Care Education/Training Program; Admitting Provider Internal Medicine; Emergency Provider Emergency Medicine; PCP Nurse Practitioner Family; Visit Provider General Practice
DX: U07.1 COVID-19 (principal); G93.41 Metabolic encephalopathy; J18.0 Bronchopneumonia, unspecified organism; J44.0 Chronic obstructive pulmonary disease with (acute) lower respiratory infection; E87.1 Hypo-osmolality and hyponatremia; I50.32 Chronic diastolic (congestive) heart failure; G91.9 Hydrocephalus, unspecified; I48.20 Chronic atrial fibrillation, unspecified; I11.0 Hypertensive heart disease with heart failure; I73.9 Peripheral vascular disease, unspecified; D64.9 Anemia, unspecified; E78.5 Hyperlipidemia, unspecified; E05.90 Thyrotoxicosis, unspecified without thyrotoxic crisis or storm; F01.50 Vascular dementia, unspecified severity, without behavioral disturbance, psychotic disturbance, mood disturbance, and anxiety; F41.9 Anxiety disorder, unspecified; F32.A Depression, unspecified; N40.0 Benign prostatic hyperplasia without lower urinary tract symptoms; K21.9 Gastro-esophageal reflux disease without esophagitis; H91.93 Unspecified hearing loss, bilateral; M47.26 Other spondylosis with radiculopathy, lumbar region; R91.1 Solitary pulmonary nodule; Z66 Do not resuscitate; Z86.73 Personal history of transient ischemic attack (TIA), and cerebral infarction without residual deficits; Z79.52 Long term (current) use of systemic steroids; Z79.82 Long term (current) use of aspirin; Z79.51 Long term (current) use of inhaled steroids; Z87.891 Personal history of nicotine dependence; Z90.79 Acquired absence of other genital organ(s); Z86.711 Personal history of pulmonary embolism; Z98.61 Coronary angioplasty status; Z95.820 Peripheral vascular angioplasty status with implants and grafts
CPT/HCPCS: 36415; 70450; 71045; 71260; 80048; 80053; 81001; 82140; 82248; 83605; 83735; 84100; 84484; 85025; 85027; 85380; 85610; 85730; 86140; 87040; 87637; 93005; 94640; 96365; 97110; 97116; 97161; 97165; 97530; 97535; 99285; A9270; G0378; J0248; J0456; J0692; J1644; J1938; J7040; J7050; J7512; Q9967